=== PATIENT | female | born 1970 | race Caucasian/White ===

== ENCOUNTER → 2019-03-22 12:50 | Outpatient (POV) | payer MEDICAID, SELFPAY ==
[2019-03-22 13:11] VITALS: BP 111/83; PULSE 84; RESP 18; O2SAT 98; BMI 24.1
--- NOTE | 2019-03-22 14:13 | HMH.PMCON ---
Assessment and Plan (1) Degenerative joint disease of cervical spine Current visit: Yes Status: Chronic Qualifiers: Spinal osteoarthritis complication: with radiculopathy Qualified Code(s): M47.22 - Other spondylosis with radiculopathy, cervical region Category: Medical Code(s): M47.812 - Spondylosis without myelopathy or radiculopathy, cervical region (2) Cervical radiculopathy Current visit: Yes Status: Chronic Category: Medical Code(s): M54.12 - Radiculopathy, cervical region - Assessment and plan all Dx Assessment and Plan for all problems:: We will set the patient up for a C5-C6 cervical epidural steroid injection. I believe it would be beneficial given the patient's symptomology and failure of conservative treatments. I will follow-up with the patient after injection reassess her symptoms. She is been instructed to call the office if she has any issues prior to her next appointment. Dr. Marquez has reviewed this note and agrees with this plan of care. This note was dictated using voice recognition software and may contain errors or omissions HPI - Data of Consult Consult date: 03/22/19 Requesting Physician: Christin Bingham APRN Primary Care Provider: Julisa Kerr - Consult Narrative Reason for consult: Neck pain History of present illness: Ms. Newsome is a 48 year old female who presents today for consultation in regards to her neck pain. Patient has had neck pain for several years however it is getting worse. Patient rates her pain today a 5 out of 10. She has numbness and tingling in both arms along with the fingers. Patient does have an MRI showing a disc bulge and degeneration at C5-C6. Patient is interested in injective therapy. Patient is completed physical therapy without any relief. She is continuing a home stretching program. She is on anti-inflammatories. She is not on any anticoagulation therapy. ROS General: no recent weight change, no fever, no sleep disturbances Respiratory: no cough, no shortness of air, no recurring pulmonary infections Cardiovascular/Peripheral Vascular: No chest pain, No palpitations, no edema, no shortness of breath. Gastrointestinal: no incontinence, normal bowel movements reported Genitourinary: no incontinence Musculoskeletal: Neck pain, arm pain Psychiatric: normal mood/ affect Neurological: [denies weakness in extremities], [denies balance issues] CC: Christin Bingham APRN [facility] History I have reviewed the patient's past medical history: Yes *Have you ever received a pneumonia vaccine?: No *Have you received a flu vaccine this season?: No Laterality Cases: Bilateral: Tonsillectomy Other Surgeries: Yes: Hysterectomy-Total, Other Amputation: No Fractures: No - *Social History Smoking Status: Never smoker Alcohol Intake: never *Occupational Status:: other Housing: house Household Members: spouse *Travel in the last 8 weeks: None - Psychiatric History Expresses thoughts of harming self/others: None Suicide Plan Description: No Plan Family Hx:: Unable to obtain Review of Systems - Review of Systems ROS General: no recent weight change, no fever, no sleep disturbances Respiratory: no cough, no shortness of air, no recurring pulmonary infections Cardiovascular/Peripheral Vascular: No chest pain, No palpitations, no edema, no shortness of breath. Gastrointestinal: no incontinence, normal bowel movements reported Genitourinary: no incontinence Musculoskeletal: Neck pain, arm pain Psychiatric: normal mood/ affect Neurological: [denies weakness in extremities], [denies balance issues] Objective Vital signs: Pulse Resp BP Pulse Ox 84 18 111/83 98 03/22/19 13:11 03/22/19 13:11 03/22/19 13:11 03/22/19 13:11 Narrative: Physical Exam General: Alert and oriented x3, no acute distress, pleasant and cooperative, [on room air] Lungs: Resps E/U, Symmetrical chest expansion,
--- NOTE | 2019-03-22 14:16 | P.CONS_ITS ---
Assessment and Plan (1) Degenerative joint disease of cervical spine Current visit: Yes Status: Chronic Qualifiers: Spinal osteoarthritis complication: with radiculopathy Qualified Code(s): M47.22 - Other spondylosis with radiculopathy, cervical region Category: Medical Code(s): M47.812 - Spondylosis without myelopathy or radiculopathy, cervical region (2) Cervical radiculopathy Current visit: Yes Status: Chronic Category: Medical Code(s): M54.12 - Radiculopathy, cervical region - Assessment and plan all Dx Assessment and Plan for all problems:: We will set the patient up for a C5-C6 cervical epidural steroid injection. I believe it would be beneficial given the patient's symptomology and failure of conservative treatments. I will follow-up with the patient after injection reassess her symptoms. She is been instructed to call the office if she has any issues prior to her next appointment. Dr. Marquez has reviewed this note and agrees with this plan of care. This note was dictated using voice recognition software and may contain errors or omissions HPI - Data of Consult Consult date: 03/22/19 Requesting Physician: Christin Bingham APRN Primary Care Provider: Julisa Kerr - Consult Narrative Reason for consult: Neck pain History of present illness: Ms. Newsome is a 48 year old female who presents today for consultation in regards to her neck pain. Patient has had neck pain for several years however it is getting worse. Patient rates her pain today a 5 out of 10. She has numbness and tingling in both arms along with the fingers. Patient does have an MRI showing a disc bulge and degeneration at C5-C6. Patient is interested in injective therapy. Patient is completed physical therapy without any relief. She is continuing a home stretching program. She is on anti-inflammatories. She is not on any anticoagulation therapy. ROS General: no recent weight change, no fever, no sleep disturbances Respiratory: no cough, no shortness of air, no recurring pulmonary infections Cardiovascular/Peripheral Vascular: No chest pain, No palpitations, no edema, no shortness of breath. Gastrointestinal: no incontinence, normal bowel movements reported Genitourinary: no incontinence Musculoskeletal: Neck pain, arm pain Psychiatric: normal mood/ affect Neurological: [denies weakness in extremities], [denies balance issues] CC: Christin Bingham APRN [facility] History I have reviewed the patient's past medical history: Yes *Have you ever received a pneumonia vaccine?: No *Have you received a flu vaccine this season?: No Laterality Cases: Bilateral: Tonsillectomy Other Surgeries: Yes: Hysterectomy-Total, Other Amputation: No Fractures: No - *Social History Smoking Status: Never smoker Alcohol Intake: never *Occupational Status:: other Housing: house Household Members: spouse *Travel in the last 8 weeks: None - Psychiatric History Expresses thoughts of harming self/others: None Suicide Plan Description: No Plan Family Hx:: Unable to obtain Review of Systems - Review of Systems ROS General: no recent weight change, no fever, no sleep disturbances Respiratory: no cough, no shortness of air, no recurring pulmonary infections Cardiovascular/Peripheral Vascular: No chest pain, No palpitations, no edema, no shortness of breath. Gastrointestinal: no incontinence, normal bowel movements reported Genitourinary: no incontinence Musculoskeletal: Neck pain, arm pain Psych
== END ==
PROVIDERS: PCP Family Medicine; Visit Provider Clinical Nurse Specialist Family Health
DX: M47.22 Other spondylosis with radiculopathy, cervical region (principal)
CPT/HCPCS: 99202

== ENCOUNTER → 2019-05-03 11:47 | Outpatient (POV) | payer MEDICAID, SELFPAY ==
--- NOTE | 2019-05-03 12:05 | HMH.PAINSOAP ---
[facility] Pain Management SOAP Note Subjective:: Patient is a pleasant 48-year-old white female who presents today for follow-up after cervical epidural steroid injection. Patient did not receive any relief in regards to this. Patient and I discussed facet joint injections. She does have very focal pain which is worse with rotation of the neck. Patient rates her pain a 5 out of 10 today. She is not on any anticoagulation therapy. She is continuing home stretching therapy. She is on anti-inflammatories. She is having acute exacerbation of low back pain secondary to trying to bathe the dog. ROS General: no recent weight change, no fever, no sleep disturbances Respiratory: no cough, no shortness of air, no recurring pulmonary infections Cardiovascular/Peripheral Vascular: No chest pain, No palpitations, no edema, no shortness of breath. Gastrointestinal: no incontinence, normal bowel movements reported Genitourinary: no incontinence Musculoskeletal: Neck pain, back pain Psychiatric: normal mood/ affect Neurological: [denies weakness in extremities], [denies balance issues] Objective:: Physical Exam General: Alert and oriented x3, no acute distress, pleasant and cooperative, [on room air] Lungs: Resps E/U, Symmetrical chest expansion, Eyes: PERRL Musculoskeletal: Flexion and extension of cervical and lumbar spine somewhat guarded secondary to pain, deep tendon reflexes normal, strength in upper and lower extremities [5/5], antalgic gait noted positive Spurling's test, positive facet loading cervical spine Neurological: speech clear, systems development consultant equal, no gross sensory deficits Assessment:: Degenerative disc disease cervical spine with cervical facet arthropathy and acute low back pain Plan:: We will schedule medial branch block/facet joint injection at C4-C5 C5-C6 bilaterally. Patient is not on any anticoagulation therapy and is continuing a home stretching program. She is failed epidural injections. We will also give him a short round of prednisone to help with her acute low back pain I will follow-up with her after injection reassess her symptoms at that time. Dr. Marquez has reviewed this note and agrees with this plan of care. This note was dictated using voice recognition software and may contain errors or omissions Pain Management Hx [employer] *Have you ever received a pneumonia vaccine?: No *Have you received a flu vaccine this season?: No - *Social History *Occupational Status:: employed, other *Travel in the last 8 weeks: None
[2019-05-03 12:33] VITALS: BP 138/81; PULSE 93; RESP 18; O2SAT 98; BMI 24.1
== END ==
PROVIDERS: PCP Family Medicine; Visit Provider Clinical Nurse Specialist Family Health
DX: M50.30 Other cervical disc degeneration, unspecified cervical region (principal); M54.02 Panniculitis affecting regions of neck and back, cervical region; M54.5 Low back pain
CPT/HCPCS: 99212

== ENCOUNTER → 2019-06-15 08:53 | Outpatient (POV) | payer MEDICAID, SELFPAY ==
[2019-06-15 09:12] VITALS: BP 120/80; PULSE 63; RESP 16; O2SAT 97; BMI 24.7
--- NOTE | 2019-06-15 09:36 | P.CONS_ITS ---
[facility] Pain Management SOAP Note Subjective:: Patient is a pleasant 48-year-old white female who presents today for follow-up after cervical medial branch block. Patient got 80% relief for almost a week. Patient's pain is returned rating it a 7 out of 10. Overall this is a successful medial branch block. We will repeat this to see if it is beneficial if it is we will plan on a rhizotomy of the C4-C5 C5-C6 levels. ROS General: no recent weight change, no fever, no sleep disturbances Respiratory: no cough, no shortness of air, no recurring pulmonary infections Cardiovascular/Peripheral Vascular: No chest pain, No palpitations, no edema, no shortness of breath. Gastrointestinal: no incontinence, normal bowel movements reported Genitourinary: no incontinence Musculoskeletal: Neck pain Psychiatric: normal mood/ affect Neurological: [denies weakness in extremities], [denies balance issues] Objective:: Physical Exam General: Alert and oriented x3, no acute distress, pleasant and cooperative, [on room air] Lungs: Resps E/U, Symmetrical chest expansion, Eyes: PERRL Musculoskeletal: Flexion and extension of cervical spine somewhat guarded secondary to pain, deep tendon reflexes normal, strength in upper and lower extremities [5/5], slightly antalgic gait noted Neurological: speech clear, senior manager creative services equal, no gross sensory deficits Assessment:: Degenerative disc disease cervical spinal cervical facet arthropathy and spondylosis Plan:: We will schedule a second cervical medial branch block at C4-C5 C5-C6 bilaterally. Since the patient did so well with it I do believe she is a potential candidate for a neurotomy. Patient is not on any anticoagulation therapy and is continuing home stretching program. I will follow-up with her after injection reassess her symptoms at that time she is been instructed to call the office if she has any issues prior to her next appointment. Dr. Marquez has reviewed this note and agrees with this plan of care. This note was dictated using voice recognition software and may contain errors or omissions [facility] History I have reviewed the patient's past medical history: Yes Medical History: Denies:: Diabetes Mellitus Type 1, Seizures *Have you ever received a pneumonia vaccine?: No *Have you received a flu vaccine this season?: No Laterality Cases: Bilateral: Tonsillectomy Other Surgeries: Yes: Hysterectomy-Total, Other Amputation: No Fractures: No - *Social History Smoking Status: Never smoker Alcohol Intake: never *Occupational Status:: employed Housing: house Household Members: spouse *Travel in the last 8 weeks: None Family Hx:: Unable to obtain
== END ==
PROVIDERS: PCP Family Medicine; Visit Provider Clinical Nurse Specialist Family Health
DX: M50.30 Other cervical disc degeneration, unspecified cervical region (principal); M54.02 Panniculitis affecting regions of neck and back, cervical region; M47.812 Spondylosis without myelopathy or radiculopathy, cervical region
CPT/HCPCS: 99212

== ENCOUNTER → 2019-08-02 10:45 | Outpatient (POV) | payer OTHER, SELFPAY ==
--- NOTE | 2019-08-02 11:13 | HMH.PAINSOAP ---
[facility] Pain Management SOAP Note Subjective:: Patient is a pleasant 48-year-old white female who presents today for follow-up after cervical medial branch block. Patient got 90% relief. She is doing extremely well she would like to move forward with her RFA. Patient has had 2 sets of medial branch blocks in the gotten over 80% relief both times. Patient is not on any anticoagulation therapy. She is continuing a home stretching program. Patient has difficulty with rotating her neck at times. She rates her pain today a 7 out of 10. Patient is continuing a home stretching program. Patient does not have any active infections. ROS General: no recent weight change, no fever, no sleep disturbances Respiratory: no cough, no shortness of air, no recurring pulmonary infections Cardiovascular/Peripheral Vascular: No chest pain, No palpitations, no edema, no shortness of breath. Gastrointestinal: no new onset incontinence, normal bowel movements reported Genitourinary: no new onset incontinence Musculoskeletal: Neck pain Psychiatric: normal mood/ affect Neurological: [denies new onset weakness in extremities], [denies new onset balance issues] Objective:: Physical Exam General: Alert and oriented x3, no acute distress, pleasant and cooperative, [on room air] Lungs: Resps E/U, Symmetrical chest expansion, Eyes: PERRL Musculoskeletal: Flexion and extension of cervical spine somewhat guarded secondary to pain, deep tendon reflexes normal, strength in upper and lower extremities [5/5], normal gait noted Neurological: speech clear, purification supervisor equal, no gross sensory deficits Assessment:: Degenerative disc disease cervical spine with cervical facet arthropathy Plan:: We will schedule her for a rhizotomy of this C4-C5 C5-C6. We will do the right side and in 2 weeks we will do the left side she is not on any anticoagulation therapy. She is gotten relief from both sets of her medial branch blocks. I will follow-up with her after her RFA and reassess her symptoms at that time she is been instructed to call the office if she has any issues prior to her next appointment. Dr. Marquez has reviewed this note and agrees with this plan of care. This note was dictated using voice recognition software and may contain errors or omissions [facility] History I have reviewed the patient's past medical history: Yes Medical History: Denies:: Cancer, Diabetes Mellitus Type 1, Seizures *Have you ever received a pneumonia vaccine?: No *Have you received a flu vaccine this season?: No Other Medical History: Reports: Arthritis Laterality Cases: Bilateral: Tonsillectomy Other Surgeries: Yes: Hysterectomy-Total, Other Amputation: No Fractures: No - *Social History Smoking Status: Never smoker Alcohol Intake: never *Occupational Status:: employed Housing: house Household Members: spouse *Travel in the last 8 weeks: None Family Hx:: Unable to obtain
--- NOTE | 2019-08-02 11:16 | P.CONS_ITS ---
[facility] Pain Management SOAP Note Subjective:: Patient is a pleasant 48-year-old white female who presents today for follow-up after cervical medial branch block. Patient got 90% relief. She is doing extremely well she would like to move forward with her RFA. Patient has had 2 sets of medial branch blocks in the gotten over 80% relief both times. Patient is not on any anticoagulation therapy. She is continuing a home stretching program. Patient has difficulty with rotating her neck at times. She rates her pain today a 7 out of 10. Patient is continuing a home stretching program. Patient does not have any active infections. ROS General: no recent weight change, no fever, no sleep disturbances Respiratory: no cough, no shortness of air, no recurring pulmonary infections Cardiovascular/Peripheral Vascular: No chest pain, No palpitations, no edema, no shortness of breath. Gastrointestinal: no new onset incontinence, normal bowel movements reported Genitourinary: no new onset incontinence Musculoskeletal: Neck pain Psychiatric: normal mood/ affect Neurological: [denies new onset weakness in extremities], [denies new onset balance issues] Objective:: Physical Exam General: Alert and oriented x3, no acute distress, pleasant and cooperative, [on room air] Lungs: Resps E/U, Symmetrical chest expansion, Eyes: PERRL Musculoskeletal: Flexion and extension of cervical spine somewhat guarded secondary to pain, deep tendon reflexes normal, strength in upper and lower extremities [5/5], normal gait noted Neurological: speech clear, stock buyer equal, no gross sensory deficits Assessment:: Degenerative disc disease cervical spine with cervical facet arthropathy Plan:: We will schedule her for a rhizotomy of this C4-C5 C5-C6. We will do the right side and in 2 weeks we will do the left side she is not on any anticoagulation therapy. She is gotten relief from both sets of her medial branch blocks. I will follow-up with her after her RFA and reassess her symptoms at that time she is been instructed to call the office if she has any issues prior to her next appointment. Dr. Marquez has reviewed this note and agrees with this plan of care. This note was dictated using voice recognition software and may contain errors or omissions [facility] History I have reviewed the patient's past medical history: Yes Medical History: Denies:: Cancer, Diabetes Mellitus Type 1, Seizures *Have you ever received a pneumonia vaccine?: No *Have you received a flu vaccine this season?: No Other Medical History: Reports: Arthritis Laterality Cases: Bilateral: Tonsillectomy Other Surgeries: Yes: Hysterectomy-Total, Other Amputation: No Fractures: No - *Social History Smoking Status: Never smoker Alcohol Intake: never *Occupational Status:: employed Housing: house Household Members: spouse *Travel in the last 8 weeks: None Family Hx:: Unable to obtain
[2019-08-02 11:44] VITALS: BP 135/84; PULSE 104; RESP 18; O2SAT 98; BMI 24.1
== END ==
PROVIDERS: PCP Family Medicine; Visit Provider Clinical Nurse Specialist Family Health
DX: M50.30 Other cervical disc degeneration, unspecified cervical region (principal); M54.02 Panniculitis affecting regions of neck and back, cervical region
CPT/HCPCS: 99212

== ENCOUNTER → 2019-10-05 08:52 | Outpatient (POV) | payer OTHER, SELFPAY ==
[2019-10-05 08:58] VITALS: BP 129/78; PULSE 91; RESP 18; O2SAT 98; BMI 24.1
--- NOTE | 2019-10-05 09:15 | P.CONS_ITS ---
[facility] Pain Management SOAP Note Subjective:: She is a pleasant 48-year-old white female who presents today for follow-up after cervical RFA. Patient rates her pain today a 7 out of 10. Patient states that she still having quite a bit of pain in her neck. We discussed options including steroid Dosepaks, anti-inflammatories, booster medial branch block. Patient would like to take some anti-inflammatories and see if this is beneficial. ROS General: no recent weight change, no fever, no sleep disturbances Respiratory: no cough, no shortness of air, no recurring pulmonary infections Cardiovascular/Peripheral Vascular: No chest pain, No palpitations, no edema, no shortness of breath. Gastrointestinal: no new onset incontinence, normal bowel movements reported Genitourinary: no new onset incontinence Musculoskeletal: Neck pain Psychiatric: normal mood/ affect Neurological: [denies new onset weakness in extremities], [denies new onset balance issues] Objective:: Physical Exam General: Alert and oriented x3, no acute distress, pleasant and cooperative, [on room air] Lungs: Resps E/U, Symmetrical chest expansion, Eyes: PERRL Musculoskeletal: Flexion and extension of cervical spine somewhat guarded secondary to pain, deep tendon reflexes normal, strength in upper and lower extremities [5/5], normal gait noted Neurological: speech clear, clinical support manager equal, no gross sensory deficits Assessment:: Degenerative disc disease cervical spine with cervical spondylosis and cervical facet arthropathy Plan:: We will call in diclofenac 75 mg 1 p.o. twice daily. We will see her in 2 months reassess her symptoms at that time she is been instructed to call the office if she has any issues prior to her next appointment. Dr. Marquez has reviewed this note and agrees with this plan of care. This note was dictated using voice recognition software and may contain errors or omissions [facility] History I have reviewed the patient's past medical history: Yes Medical History: Denies:: Cancer, Diabetes Mellitus Type 1, Diabetes Mellitus Type 2, Seizures *Have you ever received a pneumonia vaccine?: No *Have you received a flu vaccine this season?: No Other Medical History: Reports: Arthritis Laterality Cases: Bilateral: Tonsillectomy Other Surgeries: Yes: Hysterectomy-Total, Other Amputation: No Fractures: No - *Social History Smoking Status: Never smoker Alcohol Intake: never *Occupational Status:: employed, other Housing: house Household Members: spouse *Travel in the last 8 weeks: None Family Hx:: Unable to obtain
== END ==
PROVIDERS: PCP Family Medicine; Visit Provider Clinical Nurse Specialist Family Health
DX: M50.30 Other cervical disc degeneration, unspecified cervical region (principal); M47.812 Spondylosis without myelopathy or radiculopathy, cervical region; M54.02 Panniculitis affecting regions of neck and back, cervical region
CPT/HCPCS: 99212

== ENCOUNTER → 2019-11-23 11:52 | Outpatient (CLI) | payer OTHER, SELFPAY ==
[2019-11-23 12:39] LABS: Basophils # 0.1 K/mm3 (0-0.2); Basophils % 0.9 % (0.1-2.0); Eosinophils # 0.3 K/mm3 (0.0-0.4); Eosinophils % 3.3 % (0.1-12.0); Hematocrit 43.7 % (37.0-47.0); Hemoglobin 14.2 g/dL (12.2-16.2); Lymphocytes % 26.8 % (10-50); Mean Corpuscular HGB Conc 32.6 g/dL (31.8-35.4); Mean Corpuscular Hemoglobin 28.8 pg (27.0-31.2); Mean Corpuscular Volume 88.2 fl (81-99); Mean Platelet Volume 7.8 fl (7.4-10.4); Monocytes # 0.4 K/mm3 (0.1-1.0); Monocytes % 5.1 % (1.7-9.3); Neutrophils # 4.8 K/mm3 (1.8-7.8); Neutrophils % 63.9 % (37.0-80.0); Platelet Count 333 K/mm3 (142-424); Red Blood Count 4.96 M/mm3 (4.20-5.40); Red Cell Distribution Width 12.8 % (11.5-17.5); White Blood Count 7.5 K/mm3 (4.8-10.8)
[2019-11-23 13:51] LABS: Alanine Aminotransferase 9 U/L (12-78); Albumin Level 4.3 g/dl (3.5-5.0); Albumin/Globulin Ratio 1.4 (1.1-1.8); Alkaline Phosphatase 112 U/L (38-126); Anion Gap 13.6 mEq/L (5-15); Aspartate Amino Transferase 20 U/L (14-36); Bilirubin,Total 0.2 mg/dl (0.2-1.3); Blood Urea Nitrogen 11 mg/dl (7-17); Calcium 9.6 mg/dl (8.4-10.2); Carbon Dioxide 27 mmol/L (22.0-30.0); Chloride 102 mmol/L (98-107); Estimated Glomerular Filt Rate 89 ml/min (>60); GFR (African American) 108 ML/MIN (>60); Globulin 3.1 g/dL (1.3-3.2); Glucose 83 mg/dl (74-100); Potassium 4.6 mmoL/L (3.5-5.1); Sodium 138 mmol/L (136-145); Total Protein,Serum 7.4 g/dl (6.3-8.2)
[2019-11-23 14:03] LABS: C-Reactive Protein 10.3 mg/L (0-4)
[2019-11-23 14:21] LABS: Erythrocyte Sedimentation Rate 57 mm/hr (0-20)
[2019-11-26 18:32] LABS: QuantiFERON-TB Gold Plus Negative (Negative)
== END ==
PROVIDERS: Visit Provider Internal Medicine Rheumatology
DX: M47.812 Spondylosis without myelopathy or radiculopathy, cervical region (principal); M54.12 Radiculopathy, cervical region
CPT/HCPCS: 36415; 80053; 85025; 85651; 86140; 86480

== ENCOUNTER → 2020-06-22 10:31 | Outpatient (POV) | payer OTHER, SELFPAY ==
[2020-06-22 10:49] VITALS: BP 132/74; PULSE 77; RESP 18; O2SAT 98; BMI 25.0
--- NOTE | 2020-06-22 10:59 | HMH.PAINSOAP ---
[facility] Pain Management SOAP Note Subjective:: Patient is a 49-year-old white female who presents today for follow-up. She is being treated for chronic neck pain with cervical radiculopathy symptoms as well as cervical spondylosis and cervical facet arthropathy. Patient rates her pain a 7 out of 10. She underwent a cervical RFA in June 2019. Her pain was relieved up to 90%, however, her pain has returned. She rates her pain a 7 out of 10 today. Patient did receive the RFA at C4-C5 C5-C6 in the past. Patient says she has pain on both sides, however, her pain is worse on the left side today. She has tried physical therapy along with continued home stretching program as well as ice and heat therapies and anti-inflammatories. She would like to proceed with a repeat RFA. Patient is not on any anticoagulation therapy. Review of Systems General: No recent weight changes, no fever, no sleep disturbances Respiratory: No cough, no shortness of air, no recurring pulmonary infections Cardiovascular/peripheral vascular: No chest pain, no palpitations, no edema, no shortness of breath Gastrointestinal: No new onset incontinence, normal bowel movements reported Genitourinary: No new onset incontinence Musculoskeletal: Neck pain Psychiatric: Normal mood/affect Neurological: [Denies weakness in extremities], [denies balance issues] Objective:: Physical exam General: Alert and oriented x3, no acute distress, pleasant and cooperative, [on room air] Lungs: Respirations even and unlabored, symmetrical chest expansion Eyes: PERRL Musculoskeletal: Flexion and extension of: Cervical spine somewhat guarded secondary to pain, deep tendon reflexes normal, strength in upper and lower extremities [5/5], normal gait noted, positive Spurling's test Neurological: Speech clear, 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 She is not on any anticoagulation therapy. We will plan to see her back in the clinic after her procedure to reassess her symptoms. Patient has been instructed to contact clinic if she has any concerns before next appointment. The patient and I specifically discussed risk factors for COVID19. These risks include, but are not limited to age greater than 60, heart or lung disease, diabetes, immunosuppression, and travel. We also discussed NSAIDs may worsen COVID19 infection or symptoms. Patient should not use NSAIDs to treat COVID19 signs or symptoms. Patient was also informed that any type of corticosteroid of any form (oral or injection) will decrease the patient's immune system response and may increase the likelihood of COVID19 infection and symptoms[address] Dr. Marquez has reviewed this note and agrees with this plan of care. This note was dictated using voice recognition software and make contain errors or omissions. [facility] History I have reviewed the patient's past medical history: Yes Medical History: Denies:: Cancer, Diabetes Mellitus Type 1, Diabetes Mellitus Type 2, Seizures *Have you ever received a pneumonia vaccine?: Yes *Have you received a flu vaccine this season?: Yes Other Medical History: Reports: Arthritis Laterality Cases: Bilateral: Tonsillectomy Other Surgeries: Yes: Hysterectomy-Total, Other Amputation: No Fractures: No - *Social History Smoking Status: Never smoker Alcohol Intake: never *Occupational Status:: other Housing: house Household Members: spouse *Travel in the last 8 weeks: None Family Hx:: Unable to obtain
== END ==
PROVIDERS: PCP Family Medicine; Visit Provider Clinical Nurse Specialist Family Health
DX: M50.30 Other cervical disc degeneration, unspecified cervical region (principal); M47.816 Spondylosis without myelopathy or radiculopathy, lumbar region; M12.88 Other specific arthropathies, not elsewhere classified, other specified site
CPT/HCPCS: 99212

== ENCOUNTER 2020-07-07 09:35 | Day surgery (SDC) | payer OTHER, SELFPAY ==
[2020-07-07 09:45] VITALS: BP 147/80; PULSE 72; RESP 17; TEMP 36.7; O2SAT 98; BMI 25.0
[2020-07-07 09:52] VITALS: BP 132/78; PULSE 85; RESP 18; O2SAT 98
[2020-07-07 10:12] VITALS: BP 136/85; PULSE 88; RESP 18; O2SAT 98
--- NOTE | 2020-07-07 10:12 | HMH.PMPROC ---
- Procedure Date: 07/07/20 Time: 10:12 Anesthesiologist:: Abdulaziz Marquez MD Complications:: None Pre-procedure Diagnosis:: Degenerative disc disease of cervical spine with cervical facet arthropathy and cervical spondylosis Post-procedure Diagnosis:: Same Indications for Procedure:: Patient is a pleasant 49-year-old white female who we are treating for neck pain with cervical facet arthropathy and cervical spondylosis. She is done very well with previous cervical RFA's in the past with up to a year of pain relief her pain is just now starting to come back. We will plan on a repeat cervical RFA to C4-C5 and C5-C6 on the left side today. We will follow this by the right side in 2 weeks. Procedure Details:: Cervical RFA Informed consent was obtained and the risk and benefits of the procedure was explained to the patient. Patient was placed prone on the procedure table. The patient was prepped and draped in sterile fashion. C-arm fluoroscopy was used to view the lumbar spine. The skin and subcutaneous tissues were anesthetized using lidocaine. I placed 20-gauge RF needles into the facet joints of C4-C5 and C5-C6 levels on the left side. We underwent sensory stimulation. There is good sensory stimulation at 0.8 V. We underwent motor stimulation. There is no motor stimulation at 2.5 V. We then anesthetized these levels with lidocaine and Depo-Medrol. I used a total of 40 mg Depo-Medrol for both levels. I then burned both levels of C4-C5 and C5-C6 facet joint/medial branches for 4 minutes at 80 ?C. Patient tolerated the procedure well with no complication. Plan and Disposition:: We will follow-up with her and 2 weeks. Will reevaluate symptoms at this time
[2020-07-07 10:25] VITALS: BP 120/84; PULSE 68; RESP 18; O2SAT 97
== END 2020-07-07 10:26 | disposition home or self-care (01) ==
LOC: SC.PAINP 09:36
PROVIDERS: PCP Family Medicine; Visit Provider Anesthesiology
DX: M50.30 Other cervical disc degeneration, unspecified cervical region (principal); M47.812 Spondylosis without myelopathy or radiculopathy, cervical region; M12.88 Other specific arthropathies, not elsewhere classified, other specified site; Z82.49 Family history of ischemic heart disease and other diseases of the circulatory system; J45.909 Unspecified asthma, uncomplicated; G43.909 Migraine, unspecified, not intractable, without status migrainosus; Z87.39 Personal history of other diseases of the musculoskeletal system and connective tissue; Z90.710 Acquired absence of both cervix and uterus; Z88.8 Allergy status to other drugs, medicaments and biological substances; Z79.899 Other long term (current) drug therapy
CPT/HCPCS: 64633; 64634; J1040

== ENCOUNTER 2020-07-21 09:35 | Day surgery (SDC) | payer OTHER, SELFPAY ==
[2020-07-21 10:01] VITALS: BP 130/88; PULSE 76; RESP 18; TEMP 36.6; O2SAT 98; BMI 25.0
[2020-07-21 10:34] VITALS: BP 125/85; PULSE 85; RESP 18; O2SAT 98
--- NOTE | 2020-07-21 11:00 | HMH.PMPROC ---
- Procedure Date: 07/21/20 Time: 11:00 Anesthesiologist:: Abdulaziz Marquez MD Complications:: None Pre-procedure Diagnosis:: Degenerative disease of the cervical spine with cervical facet arthropathy and cervical spondylosis Post-procedure Diagnosis:: Same Indications for Procedure:: Patient is a pleasant 49-year-old white female who we have been treating for neck pain with cervical facet arthropathy and cervical spondylosis. She is done very well with previous cervical RFA's in the past. She is doing very well after left sided RFA of C4-C5 and C5-C6. She presents for right-sided RFA of C4-C5 and C5-C6 today. Procedure Details:: Cervical RFA Informed consent was obtained and the risk and benefits of the procedure was explained to the patient. Patient was placed prone on the procedure table. The patient was prepped and draped in sterile fashion. C-arm fluoroscopy was used to view the lumbar spine. The skin and subcutaneous tissues were anesthetized using lidocaine. I placed 20-gauge RF needles into the facet joints of C4-C5 and C5-C6 levels on the right side. We underwent sensory stimulation. There is good sensory stimulation at 0.8 V. We underwent motor stimulation. There is no motor stimulation at 2.5 V. We then anesthetized these levels with lidocaine and Depo-Medrol. I used a total of 40 mg Depo-Medrol for both levels. I then burned both levels of C4-C5 and C5-C6 on the right side for 4 minutes at 80 ?C. Patient tolerated the procedure well with no complications. Plan and Disposition:: We will follow-up with her and 1 month. Will reevaluate symptoms at that time.
[2020-07-21 11:27] VITALS: BP 126/86; PULSE 76; RESP 18; O2SAT 98
== END 2020-07-21 11:28 | disposition home or self-care (01) ==
LOC: SC.PAINP 09:35
PROVIDERS: PCP Family Medicine; Visit Provider Anesthesiology
DX: M50.30 Other cervical disc degeneration, unspecified cervical region (principal); M47.812 Spondylosis without myelopathy or radiculopathy, cervical region; M12.88 Other specific arthropathies, not elsewhere classified, other specified site; I10 Essential (primary) hypertension; J45.909 Unspecified asthma, uncomplicated; G56.00 Carpal tunnel syndrome, unspecified upper limb; M79.7 Fibromyalgia
CPT/HCPCS: 64633; 64634; J1040

== ENCOUNTER 2020-09-19 17:06 | Emergency (ER) | payer OTHER, SELFPAY ==
[2020-09-19 17:10] VITALS: BP 139/90; PULSE 114; RESP 18; TEMP 36.8; O2SAT 97; BMI 25.2
--- NOTE | 2020-09-19 17:15 | XR_ITS ---
PROCEDURE: XR ELBOW RT MIN 3V CLINICAL INDICATION: FALL Posttraumatic pain COMPARISON: No exams were available for comparison FINDINGS: There is a nondisplaced minimally distracted fracture involving the base of the olecranon process. The fracture fragments are distracted by approximately 2-3 mm. Positive anterior and posterior fat pad is present. There is some comminution at the fracture site IMPRESSION: Nondisplaced minimally distracted fracture at the base of the olecranon process with hemarthrosis and displaced anterior and posterior fat Dictated by: Freddy Livingston MD 09/19/2020 17:57 Freddy Livingston MD in [place] 09/19/2020 17:57
[2020-09-19 17:16] VITALS: BP 139/90; PULSE 114; RESP 18; TEMP 36.8; O2SAT 97; BMI 25.0
--- NOTE | 2020-09-19 17:21 | HMH.EDUTC ---
[facility] [place] Disposition Clinical Impression: Closed olecranon process fracture Qualifiers: Encounter type: initial encounter Laterality: right Qualified Code(s): S52.021A - Displaced fracture of olecranon process without intraarticular extension of right ulna, initial encounter for closed fracture Disposition: Home, Self-Care Condition on Discharge: Good Instructions: Elbow Fracture, DI for Elbow Fracture, How To Perform RICE (Rest, Ice, Compress, Elevate) Additional Instructions: *RICE, Rest the extremity, Ice 15-20 minutes 3-4 times daily, Compress- wear the eros wrap as discussed as much as possible to help reduce swelling and pain, Elevate the extremity when at rest *Eros wrap/orthoglass splint is for support and help control swelling, *Elevate when resting *Ibuprofen every 6 hours as needed for pain an inflammation. If need something more can take Tylenol in between doses of Ibuprofen to help Immediately follow up with your family doctor for new or worsening of symptoms, or no noticeable improvement over the next 3-[address] Orourke office in the morning for appointment tomorrow Further care per Dr Marcial Prescriptions: Ibuprofen [Ibuprofen 600mg Tablet] 600 mg PO Q6HP PRN #20 tab PRN Reason: Moderate Pain Prescription Printed Referrals: Julisa Kerr [Primary Care Provider] - As needed Drew Marcial MD [Staff Physician] - (Call the office in morning for appointment) Time of Disposition: 18:28 Medical Decision Making - Baldo Inquiry Pt receiving controlled substance: No Baldo was queried for this patient: No Vital Signs: 09/19/20 17:10 09/19/20 17:16 09/19/20 18:33 Temperature 98.2 F 98.2 F 98.2 F Temperature Source Oral Oral Pulse Rate 114 H Pulse Rate [Right Radial] 114 H 114 H Respiratory Rate 18 18 18 Blood Pressure 139/90 Blood Pressure [Right Arm] 139/90 139/90 Blood Pressure Mean [Right Arm] 106 106 Blood Pressure Source [Right Arm] Automatic Cuff Automatic Cuff Blood Pressure Position [Right Arm] Sitting Sitting 02 Sat by Pulse Oximetry 97 97 Oxygen Delivery Method Room Air Room Air - Radiology Data #1 Image(s): Chest - Physician Consults Physician Consulted: Aniket Time: 17:51 Reason -: Orthopedic Eval/Care Comment/Response: Bean Weigher to beep Orthopedic facility environmental technician awaiting call back, Dr Marcial called back looked at xray and agreed Advised to splint the arm in the position she is holding in with posterior long arm splint and have her RICE tonight and call office in the morning he will probably see her in the morning and discuss treatment and fixing fracture in the visit Medical Decision Narrative: Patient states that she is allergic to Celecoxib but has taking Ibuprofen in the past without reactions or complications [facility] [place] HPI - General Stated complaint: ao 09/19 @ 1200 injury to Rt elbow Time Seen by Provider: 09/19/20 17:21 Mode of Arrival: Ambulatory Source of Information: Patient Limitations: No Limitations Description of Symptoms (Recalled from Triage Doc. by RN): Right elbow pain after falling - History of Present Illness Provider Complaint: Patient states that her dog made her fall earlier today and when she fell she landed on her right elbow States that ever since she has been having pain in her right elbow and hurts when she tries to straighten her arm States that she had an arm sling at home and put it on but arm has still hurt today so she came in to get it checked - Related Data Home Medications Medication Instructions Recorded Confirmed Amitriptyline HCl [Elavil 25mg 25 mg PO DAILY 03/22/19 07/21/20 tablet] Cyclobenzaprine HCl [Flexeril 10mg 10 mg PO DAILY 03/22/19 07/21/20 tablet] Methotrexate Sodium/Pf 1 gm IJ DAILY 03/22/19 07/21/20 [Methotrexate 1 gm Vial] Tofacitinib Citrate [Xeljanz] 10 mg PO DAILY 03/22/19 07/21/20 Folic Acid [Folic Acid 1mg tablet] 5 mg PO DAILY 04/09/19 07/21/20 Previous Rx's Medication Instruction
[2020-09-19 18:33] VITALS: BP 139/90; PULSE 114; RESP 18; TEMP 36.8; O2SAT 97
== END 2020-09-19 18:35 | disposition home or self-care (01) ==
PROVIDERS: Emergency Provider Nurse Practitioner; PCP Family Medicine
DX: S52.021A Displaced fracture of olecranon process without intraarticular extension of right ulna, initial encounter for closed fracture (principal); W01.0XXA Fall on same level from slipping, tripping and stumbling without subsequent striking against object, initial encounter; Y92.019 Unspecified place in single-family (private) house as the place of occurrence of the external cause; Z88.8 Allergy status to other drugs, medicaments and biological substances
CPT/HCPCS: 29105; 73080; 99203

== ENCOUNTER → 2020-09-20 14:29 | Outpatient (CLI) | payer OTHER, SELFPAY ==
--- NOTE | 2020-09-20 14:32 | CT_ITS ---
PROCEDURE: CT ELBOW RT WO CON CLINICAL HISTORY: Surgical planning, ORIF right elbow Xrays on pacs COMPARISON: CR XR ELBOW RT MIN 3V from 09/19/2020 TECHNIQUE: Axial images obtained with sagittal and coronal reformats. All CT scans at the facility use one or more dose reduction, viz: automated exposure control, ma/kV adjustment per patient size (including targeted exams where dose is matched to indication, i.e. head), or iterative reconstruction technique. FINDINGS: Comminuted fracture involves the base of the olecranon process of the ulna. The fracture is nondisplaced. There is intra-articular hemarthrosis with displaced fat pad. No other fractures are apparent. No evidence of dislocation. IMPRESSION: Comminuted nondisplaced fracture at the base of the olecranon process with hemarthrosis Dictated by: Freddy Livingston MD 09/24/2020 11:09 Freddy Livingston MD in [place] 09/24/2020 11:09
== END ==
PROVIDERS: PCP Family Medicine; Visit Provider Orthopaedic Surgery
DX: S52.021A Displaced fracture of olecranon process without intraarticular extension of right ulna, initial encounter for closed fracture (principal)
CPT/HCPCS: 73200

== ENCOUNTER → 2020-09-25 10:12 | Outpatient (CLI) | payer OTHER, SELFPAY ==
[2020-09-25 10:49] LABS: Basophils # 0.1 K/mm3 (0-0.2); Eosinophils # 0.3 K/mm3 (0.0-0.4); Eosinophils % 4.8 % (0.1-12.0); Hematocrit 48.9 % (37.0-47.0); Hemoglobin 15.6 g/dL (12.2-16.2); Lymphocytes # 1.5 K/mm3 (0.7-4.5); Lymphocytes % 21.4 % (10-50); Mean Corpuscular HGB Conc 31.9 g/dL (31.8-35.4); Mean Corpuscular Hemoglobin 28.9 pg (27.0-31.2); Mean Corpuscular Volume 90.5 fl (81-99); Monocytes # 0.5 K/mm3 (0.1-1.0); Monocytes % 7.2 % (1.7-9.3); Neutrophils # 4.6 K/mm3 (1.8-7.8); Neutrophils % 65.5 % (37.0-80.0); Platelet Count 340 K/mm3 (142-424); Red Cell Distribution Width 13.8 % (11.5-17.5)
[2020-09-25 10:56] LABS: Chloride 104 mmol/L (98-107); Potassium 4.1 mmoL/L (3.5-5.1); Sodium 140 mmol/L (136-145)
[2020-09-25 10:59] LABS: Alanine Aminotransferase 17 U/L (12-78); Albumin/Globulin Ratio 1.1 (1.1-1.8); Alkaline Phosphatase 103 U/L (38-126); Anion Gap 12.1 mEq/L (5-15); Aspartate Amino Transferase 27 U/L (14-36); Bilirubin,Total 0.5 mg/dl (0.2-1.3); Blood Urea Nitrogen 11 mg/dl (7-17); Calcium 9.5 mg/dl (8.4-10.2); Carbon Dioxide 28 mmol/L (22.0-30.0); Estimated Glomerular Filt Rate 89 ml/min (>60); GFR (African American) 108 ML/MIN (>60); Globulin 3.7 g/dL (1.3-3.2); Glucose 96 mg/dl (74-100); Total Protein,Serum 7.7 g/dl (6.3-8.2)
[2020-09-25 12:02] LABS: Coronavirus 19 IgG Antibody Positive (Negative); Coronavirus 19 IgM Antibody Positive (Negative)
== END ==
PROVIDERS: Visit Provider Orthopaedic Surgery
DX: Z01.818 Encounter for other preprocedural examination (principal); Z03.818 Encounter for observation for suspected exposure to other biological agents ruled out; Z86.19 Personal history of other infectious and parasitic diseases; S52.023A Displaced fracture of olecranon process without intraarticular extension of unspecified ulna, initial encounter for closed fracture
CPT/HCPCS: 36415; 80053; 85025; 86328

== ENCOUNTER → 2020-09-26 10:51 | Outpatient (CLI) | payer OTHER, SELFPAY ==
--- NOTE | 2020-09-27 11:15 | P.PN_ITS ---
[facility] Anesthesia Checklist - Patient Identification Patient Identification: Arm Band, Verbal (Name & ) - Structural Data Admitted From: Home Planned Operative Procedure/s: orif elbow Consent for Planned Operative Procedure(s) Verified: Yes Verified Documents: History and Physical - NPO Status Verified Time NPO: 00:00 - Chart Verification Results Verified: CBC, BMP - Additional verifications Patient : No Anesthesia Reactions: No Hx Blood Transfusions: No Blood Transfusion Reaction: No Cephalosporin Allergy: No Previous Colonoscopy: No - Cardiovascular Assessment Heart Sounds: S1 & S2 Pulse Strength: Baseline Pulse Rhythm: Regular Peripheral Edema: No - Airway Assessment C-Spine Mobility Assessed: Yes TMJ Mobility Assessed: Yes Dentition: Good Dentition - Neurological Assessment Level of Consciousness: Awake, Alert, Appropriate Hx Seizures: No Numbness or tingling in extremities: No - Anesthesia Plan Anesthesia Risk discussed: Yes Anesthesia Plan: Verified ASA Class: II Anesthesia Type: General w/block [facility] History I have reviewed the patient's past medical history: Yes Medical History: Denies:: Cancer, Diabetes Mellitus Type 1, Diabetes Mellitus Type 2, Internal Pacemaker, MRSA, Seizures *Have you ever received a pneumonia vaccine?: No *Have you received a flu vaccine this season?: Yes Other Medical History: Reports: Arthritis. Denies: Blood Transfusion Reaction Anesthesia experience/problems:: none Laterality Cases: Bilateral: Tonsillectomy Other Surgeries: Yes: Hysterectomy-Total, Other. No: Pacemaker Amputation: No Fractures: No - *Social History Smoking Status: Never smoker Alcohol Intake: never Substance Use Type: denies use *Occupational Status:: employed Housing: house Household Members: family *Travel in the last 8 weeks: None Family Hx:: Heart Attack
--- NOTE | 2020-09-27 11:16 | P.PN_ITS ---
[facility] Anesthesia Record Part I Intake, IV Amount: 950 Estimated blood loss (mL): 5 Urine output (mL): 0 Blood Products used (#): none Blood Pressure: 121/77 SaO2: 95 Pulse Rate: 88 Respiratory Rate: 18 Temperature: 97.5 F Patient is:: Drowsy, Nasal O2, Stable Stable to PACU at:: 11:13
[2020-09-27 11:17] VITALS: BP 121/77; PULSE 88; RESP 18; TEMP 36.4; O2SAT 95
== END ==
PROVIDERS: Visit Provider Orthopaedic Surgery
DX: Z01.818 Encounter for other preprocedural examination (principal); Z03.818 Encounter for observation for suspected exposure to other biological agents ruled out; S52.023A Displaced fracture of olecranon process without intraarticular extension of unspecified ulna, initial encounter for closed fracture
CPT/HCPCS: U0003

== ENCOUNTER 2020-09-27 06:11 | Day surgery (SDC) | payer OTHER, SELFPAY ==
[2020-09-26 09:11] VITALS: BMI 25.0
[2020-09-27] VITALS (15 sets, daily range): BP systolic 101–127; BP diastolic 63–82; PULSE 59–98; RESP 16–18; TEMP 36.4–43; O2SAT 92–96
--- NOTE | 2020-09-27 09:09 | HMH.ANESCL ---
[facility] Anesthesia Checklist - Patient Identification Patient Identification: Arm Band, Verbal (Name & ) - Structural Data Admitted From: Home Planned Operative Procedure/s: Right olecranon ORIF Consent for Planned Operative Procedure(s) Verified: Yes Verified Documents: Surgical Consent, History and Physical - NPO Status Verified Time NPO: 00:00 - Chart Verification Results Verified: CBC, BMP - Additional verifications Anesthesia Reactions: No Hx Blood Transfusions: No Blood Transfusion Reaction: No - Airway Assessment C-Spine Mobility Assessed: Yes (MP 2, Limited neck ROM, TMD 3) TMJ Mobility Assessed: Yes Dentition: Good Dentition - Neurological Assessment Level of Consciousness: Awake, Alert, Appropriate, Follows Commands Hx Seizures: No Numbness or tingling in extremities: No - Anesthesia Plan Anesthesia Risk discussed: Yes Anesthesia Plan: Verified ASA Class: II Anesthesia Type: General w/block [facility] History I have reviewed the patient's past medical history: Yes Medical History: Denies:: Cancer, Diabetes Mellitus Type 1, Diabetes Mellitus Type 2, Internal Pacemaker, MRSA, Seizures *Have you ever received a pneumonia vaccine?: No *Have you received a flu vaccine this season?: Yes Other Medical History: Reports: Arthritis. Denies: Blood Transfusion Reaction Comment:: rheumatoid arthritis Anesthesia experience/problems:: none Laterality Cases: Bilateral: Tonsillectomy Other Surgeries: Yes: Hysterectomy-Total, Other. No: Pacemaker Amputation: No Fractures: No - *Social History Last grade of school completed: 11th or 12th Smoking Status: Never smoker Alcohol Intake: never Substance Use Type: denies use *Occupational Status:: employed Housing: house Household Members: family *Travel in the last 8 weeks: None Family Hx:: Heart Attack
--- NOTE | 2020-09-27 10:30 | XR_ITS ---
PROCEDURE: XR ELBOW RT 2V CLINICAL INDICATION: WIRED RT ELBOW COMPARISON: CR XR ELBOW RT MIN 3V from 09/19/2020 FINDINGS: Fluoroscopic spot films in surgery show placement of pins transfixing the fracture of the olecranon in anatomic alignment. Cerclage wires are seen as well. Fluoroscopic time was 1 minutes 22 seconds. IMPRESSION: Satisfactory ORIF olecranon fracture Dictated by: Dr. Syd Swann MD 09/27/2020 11:21 Dr. Syd Swann MD in [place] 09/27/2020 11:21
--- NOTE | 2020-09-27 12:01 | PC.NURSE ---
1138-detailed report called to ROLANDO Lala 1143-pt transported to post op via stretcher w/basil rails up and left in care of ROLANDO Lala with bed locked in lowest position, vss, pt stable
--- NOTE | 2020-09-27 17:11 | HMH.OPNOTE ---
Date of procedure: 09/27/20 Pre-op Diagnosis:: Closed, comminuted and displaced fracture, right elbow Post-op Diagnosis:: Same Procedure performed:: Open reduction and internal fixation with tension band wiring, olecranon fracture, right elbow Surgeon:: Drew Marcial MD Wind Farm Support Specialist(s):: Dimple Westbrook GAS SPECIALIST:: Vini Casas Anesthesia: GETA, regional (Interscalene nerve block) Estimated blood loss (mL): 5 Clinical Note:: Patient is a 49-year-old left hand dominant female, who sustained a comminuted and displaced fracture of the right olecranon process following a mechanical fall about 1 week ago. Patient was subsequently seen in the office and evaluated. X-ray showed the fracture to be displaced and comminuted with disruption of the articular surface and extensor mechanism. Following a detailed discussion regarding the management options with the patient, she elected for open reduction and internal fixation of the fracture. Open reduction and internal fixation in as anatomic position as possible is indicated to accurately reduce and stabilize the intra-articular fracture and to restore the elbow extensor mechanism to facilitate fracture healing, improve function and to reduce risk of future complications as well as to avoid elbow stiffness. It is considered the standard of care for this injury. Please refer to my office note for full details. Operative findings:: As noted on the preoperative examination, there was swelling over the posterior aspect of the elbow. On entering the fracture site a fracture hematoma was noted which was evacuated. There was a comminuted displaced fracture of the olecranon process as noted on the preoperative x-rays/CT scan. There were 2 main fragments which are contributing to the articular surface with several small comminuted fragments of cortico-cancellous bone. The fracture was mobilized and accurately reduced and fixed in a stable fashion. The elbow joint was noted to be stable post fracture reduction and fixation. The bone is osteoporotic. Operative note:: On the day of the surgery, the patient was met in the preoperative area and positively identified. I have again discussed the diagnosis, natural history and management options in detail including both nonsurgical and surgical. The olecranon fracture is comminuted and displaced with disruption of the articular surface. Given the above factors, I have recommended an open reduction and internal fixation of the olecranon fracture. I have discussed about tension band wiring versus plate and screw fixation as appropriate at the time of surgery. I have discussed the details of the procedure, risks and benefits and alternatives in detail. The complications discussed include but are not limited to infection, injury to nerves, tendons and blood vessels, incisional scar (cosmesis), DVT/PE, malunion, nonunion/delayed union, loss of position, refracture, elbow and forearm stiffness, loss of ROM, failure of fixation, heterotopic ossification, ulnar nerve/posterior interosseous nerve/radial nerve palsy, radioulnar synostosis, CRPS (complex regional pain syndrome- pain, sensory and temperature changes, swelling and stiffness), painful/prominent hardware, intra-articular screw penetration, loss of fixation/hardware failure, incomplete relief of pain, incomplete return of function, posttraumatic arthritis and likely need for further surgery in future and also the risks of anesthesia including heart attack, stroke, and . I have discussed how there is a small but real possibility of loss of use of the arm, loss of the limb amputation or loss of life itself. I have also explained how additional surgery may be required if there are any complications or the fracture fails to heal. We have also discussed the postoperative pain management, recovery and rehabilitation, immobilization required, the need for physical/occupational therapy, the possibility of stiffness, chronic pain and we've also discussed t
--- NOTE | 2020-09-27 18:21 | HMH.ANESI ---
[facility] Anesthesia Record Part I Intake, IV Amount: 950 Estimated blood loss (mL): 25 Urine output (mL): 0 Blood Products used (#): none Blood Pressure: 121/77 SaO2: 95 Pulse Rate: 88 Respiratory Rate: 18 Temperature: 97.5 F Patient is:: Awake Stable to PACU at:: 11:13
--- NOTE | 2020-09-27 18:24 | HMH.ANESII ---
[facility] Anesthesia Record Part II Discharge Time: 11:43 Destination: Surgical Day Care (OP Surgery) PACU nurse assessment reviewed?: Yes Patient Condition:: Good Anesthesia Complications:: None Swallowing reflex intact?: Yes Cyanosis?: No Blood Pressure: 117/72 Pulse Rate: 90 Temperature: 98.3 F Mental Status: Alert & Oriented Pain level:: 0 Nausea and/or vomitting:: None Intake, IV Amount: 0
== END 2020-09-27 12:46 | disposition home or self-care (01) ==
LOC: OR 06:12
PROVIDERS: PCP Family Medicine; Visit Provider Orthopaedic Surgery
PROC: (CPT 24685; principal; 2020-09-27 07:30)
DX: S52.021A Displaced fracture of olecranon process without intraarticular extension of right ulna, initial encounter for closed fracture (principal); W01.0XXA Fall on same level from slipping, tripping and stumbling without subsequent striking against object, initial encounter; Y92.019 Unspecified place in single-family (private) house as the place of occurrence of the external cause
CPT/HCPCS: 24685; 73070; 76000; 96374; C1769; J2405

== ENCOUNTER → 2020-10-04 08:48 | Outpatient (CLI) | payer OTHER, SELFPAY ==
--- NOTE | 2020-10-04 08:50 | XR_ITS ---
PROCEDURE: XR ELBOW RT MIN 3V CLINICAL INDICATION: sp ORIF RT elbow with wiring, dos 09/27/2020 COMPARISON: CR XR ELBOW RT MIN 3V from 09/19/2020 CR XR ELBOW RT 2V from 09/27/2020 FINDINGS: Two K-wires and cerclage wire remain in place stabilizing the fracture at the base of the olecranon process which appears to be in good alignment. There is overlying soft tissue swelling in there is a displaced anterior fat pad. IMPRESSION: Good alignment status post ORIF olecranon fracture. Dictated by: Freddy Livingston MD 10/04/2020 18:41 Freddy Livingston MD in [place] 10/04/2020 18:42
== END ==
PROVIDERS: PCP Family Medicine; Visit Provider Orthopaedic Surgery
DX: Z09 Encounter for follow-up examination after completed treatment for conditions other than malignant neoplasm (principal); S52.021D Displaced fracture of olecranon process without intraarticular extension of right ulna, subsequent encounter for closed fracture with routine healing
CPT/HCPCS: 73080

== ENCOUNTER → 2020-10-18 08:49 | Outpatient (CLI) | payer OTHER, SELFPAY ==
--- NOTE | 2020-10-18 08:54 | XR_ITS ---
PROCEDURE: XR ELBOW RT MIN 3V CLINICAL INDICATION: sp ORIF RT elbow, dos 09/27/2020 Follow-up surgery COMPARISON: CR XR ELBOW RT MIN 3V from 09/19/2020 CR XR ELBOW RT 2V from 09/27/2020 CR XR ELBOW RT MIN 3V from 10/04/2020 FINDINGS: Prior of the ulna with pins and cerclage wire in place as before. The olecranon fracture somewhat less apparent. There is good alignment. IMPRESSION: Good alignment status post olecranon fracture Dictated by: Freddy Livingston MD 10/18/2020 10:58 Freddy Livingston MD in [place] 10/18/2020 10:58
--- NOTE | 2020-10-18 08:54 | XR_ITS ---
PROCEDURE: XR WRIST RT MIN 3V CLINICAL INDICATION: right wrist pain Right wrist pain and deformity COMPARISON: No exams were available for comparison FINDINGS: Osteoarthritic changes are present at the radiocarpal joint. There is radial angulation of the wrist. Accessory center of ossification versus ununited old fracture noted at the tip of the ulnar styloid. There are osteoarthritic changes of the scapho trapezium joint and the 1st metacarpal-carpal joint. 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
== END ==
PROVIDERS: PCP Family Medicine; Visit Provider Orthopaedic Surgery
DX: Z09 Encounter for follow-up examination after completed treatment for conditions other than malignant neoplasm (principal); M06.9 Rheumatoid arthritis, unspecified; M25.531 Pain in right wrist; M25.521 Pain in right elbow
CPT/HCPCS: 73080; 73110

== ENCOUNTER → 2020-11-08 09:00 | Outpatient (CLI) | payer OTHER, SELFPAY ==
--- NOTE | 2020-11-08 09:02 | XR_ITS ---
PROCEDURE: XR ELBOW RT MIN 3V CLINICAL INDICATION: sp ORIF RT elbow, dos 09/27/2020 Follow-up ORIF COMPARISON: CR XR ELBOW RT MIN 3V from 09/19/2020 CR XR ELBOW RT 2V from 09/27/2020 CR XR ELBOW RT MIN 3V from 10/04/2020 CR XR ELBOW RT MIN 3V from 10/18/2020 FINDINGS: Status post ORIF olecranon fracture with 2 K-wires and cerclage wire in place. Fracture line is still barely visible. There is good alignment. The joint spaces are well-preserved. No significant degenerative/arthritic changes. No erosive changes evident. Other findings:None. IMPRESSION: Good alignment healing olecranon fracture status post ORIF Dictated by: Freddy Livingston MD 11/08/2020 11:28 Freddy Livingston MD in [place] 11/08/2020 11:28
== END ==
PROVIDERS: PCP Family Medicine; Visit Provider Orthopaedic Surgery
DX: S52.021D Displaced fracture of olecranon process without intraarticular extension of right ulna, subsequent encounter for closed fracture with routine healing (principal); S52.509P Unspecified fracture of the lower end of unspecified radius, subsequent encounter for closed fracture with malunion; M06.9 Rheumatoid arthritis, unspecified; Z09 Encounter for follow-up examination after completed treatment for conditions other than malignant neoplasm
CPT/HCPCS: 73080

== ENCOUNTER → 2020-12-20 09:09 | Outpatient (CLI) | payer OTHER, SELFPAY ==
--- NOTE | 2020-12-20 09:19 | XR_ITS ---
PROCEDURE: XR ELBOW RT MIN 3V CLINICAL INDICATION: sp ORIF RT elbow, dos 09/27/20 COMPARISON: CR XR ELBOW RT 2V from 09/27/2020 CR XR ELBOW RT MIN 3V from 10/04/2020 CR XR ELBOW RT MIN 3V from 10/18/2020 CR XR ELBOW RT MIN 3V from 11/08/2020 FINDINGS: Prior ORIF proximal ulna with K-wires and cerclage wire in place. Good alignment. The joint spaces are well-preserved. No significant degenerative/arthritic changes. No erosive changes evident. Fracture line not readily apparent. Other findings:None. IMPRESSION: No change good alignment prior ORIF of the proximal ulna Dictated by: Freddy Livingston MD 12/20/2020 16:32 Freddy Livingston MD in [place] 12/20/2020 16:32
== END ==
PROVIDERS: PCP Family Medicine; Visit Provider Orthopaedic Surgery
DX: Z09 Encounter for follow-up examination after completed treatment for conditions other than malignant neoplasm (principal); S52.021D Displaced fracture of olecranon process without intraarticular extension of right ulna, subsequent encounter for closed fracture with routine healing
CPT/HCPCS: 73080

== ENCOUNTER → 2021-09-27 13:52 | Outpatient (POV) | payer OTHER, SELFPAY ==
[2021-09-27 14:03] VITALS: BP 151/96; PULSE 89; RESP 18; O2SAT 97; BMI 24.5
--- NOTE | 2021-10-01 04:53 | HMH.PAINSOAP ---
[facility] Pain Management SOAP Note Subjective:: Patient is a pleasant 50-year-old white female who presents today for follow-up. Patient was last seen in our clinic on 07/21/2020. At that time, she did undergo an RFA left side at the C4-C5 C5-C6 area. She got significant relief until recently. Patient says she had more than a year of relief before her pain did return. She is also had an RFA C4-C5 C5-C6 on the right side. Today she is complaining of neck pain made worse with turning her head. She is having difficulty driving due to inability to turn head. She does say when raising arms to steering well she has significant tingling in bilateral upper extremities and hands. She denies any vision changes, headaches, dizziness, nausea, or vomiting. Patient says the pain that she is currently having is the same as she had prior to her previous RFA's. She is here today to discuss proceeding with repeat RFA. She would like to start on the left side, as this is where her pain is worse. Review of Systems General: No recent weight changes, no fever, no sleep disturbances Respiratory: No cough, no shortness of air, no recurring pulmonary infections Cardiovascular/peripheral vascular: No chest pain, no palpitations, no edema, no shortness of breath Gastrointestinal: No new onset incontinence, normal bowel movements reported Genitourinary: No new onset incontinence Musculoskeletal: Neck pain made worse with turning head, numbness and tingling bilateral upper extremities when raising arms Psychiatric: [Normal mood/affect] Neurological: [Denies weakness in extremities], [denies balance issues] Objective:: Physical exam General: Alert and oriented x3, no acute distress, pleasant and cooperative Lungs: Respirations even and unlabored, symmetrical chest expansion Eyes: PERRL Musculoskeletal: Flexion and extension of cervical [spine] somewhat guarded secondary to pain, [antalgic gait noted], positive Spurling's test Neurological: Speech clear, no gross sensory deficit Assessment:: Degenerative disc disease cervical spine with cervical facet arthropathy and cervical spondylosis Plan:: Patient is following up for pain that has presented over a year after her RFA. She is having 8 out of 10 pain today. The patient is having difficulty turning her head and is having numbness and tingling in bilateral upper extremities when raising arms to drive. The pain is worse on the left side at this time. She has had bilateral RFA's in the past has gotten up to 100% relief for more than a year. We will schedule the patient for a RFA C4-C5 C5-C6 left side. We will then proceed to the right side. She is continue with home stretching. She has tried physical therapy for greater than 6 weeks in the past. She does continue with anti-inflammatories as needed as well. We will plan to follow-up with the patient after her RFA for further evaluation. Risks and benefits of the procedure have been explained to the patient. Patient would like to proceed with the procedure. Patient has been instructed to contact the clinic with any concerns before the next appointment. Dr. Marquez has reviewed this note and agrees with this plan of care. This note was dictated using voice recognition software and make contain errors or omissions. [facility] History I have reviewed the patient's past medical history: Yes Medical History: Denies:: Cancer, Diabetes Mellitus Type 1, Diabetes Mellitus Type 2, Internal Pacemaker, MRSA, Seizures *Have you ever received a pneumonia vaccine?: No *Have you received a flu vaccine this season?: No Other Medical History: Reports: Arthritis. Denies: Blood Transfusion Reaction Laterality Cases: Bilateral: Tonsillectomy Other Surgeries: Yes: Hysterectomy-Total, Other. No: Pacemaker Amputation: No Fractures: No - *Social History Smoking Status: Never smoker Alcohol Intake: never Substance Use Type: denies use *Occupational Status:: unemployed
== END ==
PROVIDERS: Visit Provider Clinical Nurse Specialist Family Health
DX: M50.30 Other cervical disc degeneration, unspecified cervical region (principal); M47.812 Spondylosis without myelopathy or radiculopathy, cervical region; M54.02 Panniculitis affecting regions of neck and back, cervical region
CPT/HCPCS: 99212; G0463

== ENCOUNTER → 2021-10-12 14:58 | Day surgery (SDC) | payer OTHER, SELFPAY ==
[2021-10-12 15:05] VITALS: BP 139/92; PULSE 89; RESP 20; TEMP 36.5; O2SAT 98; BMI 24.7
--- NOTE | 2021-10-12 15:13 | HMH.PMPROC ---
- Procedure Date: 10/12/21 Time: 15:13 Anesthesiologist:: Juli Loving MD Complications:: None Pre-procedure Diagnosis:: Degenerative disc disease of the cervical spine, cervical facet arthropathy, cervical spondylosis Post-procedure Diagnosis:: Same Indications for Procedure:: Patient is a very pleasant 50-year-old female who presents today with chronic neck pain related to the above diagnosis. She has tried and failed conservative treatment including oral pain medication and home stretching program for greater than 6 weeks. She has previously undergone 2 successful diagnostic cervical facet joint/medial branch block injections at C for C5 and C5-C6 on the left side. This also undergone bilateral therapeutic cervical RFA in the past with good pain relief. The plan for today is for the patient to undergo therapeutic cervical RFA at C4-C5 and C5-C6 on the left side #1. Procedure Details:: Cervical RFA Informed consent was obtained and the risk and benefits of the procedure was explained to the patient. Patient was placed prone on the procedure table. The patient was prepped and draped in sterile fashion. C-arm fluoroscopy was used to view the lumbar spine. The skin and subcutaneous tissues were anesthetized using lidocaine. I placed 20-gauge RF needles into the facet joints of C4-C5 and C5-C6 levels on the left side. We underwent sensory stimulation. There is good sensory stimulation at 0.8 V. We underwent motor stimulation. There is no motor stimulation at 2.5 V. We then anesthetized these levels with lidocaine and Depo-Medrol. I used a total of 40 mg Depo-Medrol for all 2 levels. I then burned all 2 levels of C4-C5 and C5-C6 facet joint/medial branches on the left side for 4 minutes at 80?C. Patient tolerated the procedure well with no complications. Plan and Disposition:: We will follow-up with patient in 2 weeks. Will reevaluate pain symptoms at that time.
[2021-10-12 15:17] VITALS: BP 131/96; PULSE 99; RESP 18; O2SAT 95
[2021-10-12 15:20] VITALS: PULSE 98; RESP 18; O2SAT 95
== END ==
PROVIDERS: PCP Family Medicine; Visit Provider Anesthesiology Pain Medicine
DX: M50.30 Other cervical disc degeneration, unspecified cervical region (principal); M47.812 Spondylosis without myelopathy or radiculopathy, cervical region; M54.02 Panniculitis affecting regions of neck and back, cervical region; M19.90 Unspecified osteoarthritis, unspecified site; Z88.8 Allergy status to other drugs, medicaments and biological substances
CPT/HCPCS: 64635; 64636; J1040

== ENCOUNTER → 2021-11-05 10:25 | Outpatient (POV) | payer OTHER, SELFPAY ==
[2021-11-05 10:38] VITALS: BP 155/94; PULSE 116; RESP 18; O2SAT 95; BMI 25.0
--- NOTE | 2021-11-05 10:58 | HMH.PAINSOAP ---
[facility] Pain Management SOAP Note Subjective:: Patient is a 51-year-old white female who is following up today after cervical RFA left side. Patient got up to 70 to 80% relief with the RFA. She says that she got complete relief of numbness and tingling into the left arm after the RFA. She is continue to have pain into the right side of neck and right arm with numbness and tingling. This is more noticeable when she is driving and the arm is raised. She is currently caring for her who has cirrhosis end-stage. She is having to lift firewood daily and travel up and down 12 stairs for a wood-burning stove. She is doing heavy lifting and is noticing severe pain in her left shoulder today. She does have a history of rheumatoid arthritis. She has limited range of motion to left shoulder and arm today. Rates her pain a 7 out of 10. She is not on any anticoagulation therapy. Review of Systems General: No recent weight changes, no fever, no sleep disturbances Respiratory: No cough, no shortness of air, no recurring pulmonary infections Cardiovascular/peripheral vascular: No chest pain, no palpitations, no edema, no shortness of breath Gastrointestinal: No new onset incontinence, normal bowel movements reported Genitourinary: No new onset incontinence Musculoskeletal: Left shoulder pain, right arm numbness and tingling, difficulty turning head to right side Psychiatric: [Normal mood/affect] Neurological: [Denies weakness in extremities], [denies balance issues] Objective:: Physical exam General: Alert and oriented x3, no acute distress, pleasant and cooperative Lungs: Respirations even and unlabored, symmetrical chest expansion Eyes: PERRL Musculoskeletal: Flexion and extension of cervical [spine] somewhat guarded secondary to pain, normal gait noted Neurological: Speech clear, no gross sensory deficit Assessment:: Degenerative disc disease cervical spine with cervical facet arthropathy cervical spondylosis, left shoulder pain, left shoulder osteoarthritis Plan:: We will schedule patient for a left shoulder intra-articular injection. She is having significant pain due to recent heavy lifting. She does have a history of arthritis to her left shoulder. She has performed physical therapy for more than 6 weeks in the past along with home stretching. She is also tried anti-inflammatories with minimal relief. 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 The patient would like to proceed with injective therapy Following the left shoulder injection she would like to proceed with right side RFA at C4-C5 C5-C6. Possible side effects of corticosteroids have been discussed with the patient. Risks and benefits of the procedure have been explained to the patient. Patient would like to proceed with the procedure. Patient has been instructed to contact the clinic with any concerns before the next appointment. Dr. Marquez has reviewed this note and agrees with this plan of care. This note was dictated using voice recognition software and make contain errors or omissions. [facility] History I have reviewed the patient's past medical history: Yes Medical History: Denies:: Cancer, Diabetes Mellitus Type 1, Diabetes Mellitus Type 2, Internal Pacemaker, MRSA, Seizures *Have you ever received a pneumonia vaccine?: No *Have you received a flu vaccine this season?: No Other Medical History: Reports: Arthritis. Denies: Blood Transfusion Reaction Laterality Cases: Bilateral: Tonsillectomy Other Surgeries: Yes: Hysterectomy-Total, Other. No: Pacemaker Amputation: No Fractures: No - *Social History Smoking Status: Never smoker Alcohol Intake: never Substance Use Type: denies use *Occupational Status:: unemployed Housing: house Household Members: spouse *Travel in the last 8 weeks: None Family Hx:: Heart Attack
== END ==
PROVIDERS: Visit Provider Clinical Nurse Specialist Family Health
DX: M50.10 Cervical disc disorder with radiculopathy, unspecified cervical region (principal); M54.02 Panniculitis affecting regions of neck and back, cervical region; M47.812 Spondylosis without myelopathy or radiculopathy, cervical region; M19.012 Primary osteoarthritis, left shoulder
CPT/HCPCS: 99212; G0463

== ENCOUNTER 2021-11-23 14:24 | Day surgery (SDC) | payer OTHER, SELFPAY ==
[2021-11-23 14:32] VITALS: BP 134/93; PULSE 92; RESP 16; TEMP 36.6; O2SAT 97; BMI 24.8
[2021-11-23 14:53] VITALS: BP 142/93; PULSE 92; RESP 20; O2SAT 98
[2021-11-23 14:55] VITALS: BP 146/92; PULSE 92; RESP 18; O2SAT 98
--- NOTE | 2021-11-23 15:01 | P.PCN_ITS ---
- Procedure Date: 11/23/21 Time: 15:01 Anesthesiologist:: Juli Loving MD Complications:: None Pre-procedure Diagnosis:: Left shoulder pain secondary to primary osteoarthritis, glenohumeral arthropathy, subacromial bursitis Post-procedure Diagnosis:: Same Indications for Procedure:: This patient is a very pleasant 51-year-old white female who presents today with chronic left-sided shoulder pain related to the above diagnosis. She attributes her significant pain due to recent heavy lifting. She states that she has a known history of arthritis to the left shoulder joint. She has tried and failed conservative treatment and oral pain medications and home stretching program for greater than 6 weeks. She was taking [id number] and anti-inflammatories with very minimal pain relief. Of note, she also has previously undergone left- sided cervical RFA notes 70 to 80% pain relief in regards to the neck and arm pain symptoms on the left side. The plan will be for the patient to undergo right-sided cervical RFA at C4-C5 and C5-C6 in the future. Today the plan is for the patient to undergo intra-articular left shoulder injection to the glenohumeral joint and subacromial bursa Procedure Details:: Informed consent was obtained. Risks and benefits of the procedure were explained to the patient. Patient was taken back to the procedure. The left shoulder was prepped using ChloraPrep. A 25-gauge needle was used first posteriorly in the medial to lateral trajectory the needle is advanced into the glenohumeral joint of the left shoulder was approached, at which point 3 mL of injectate solution of 5 mL of 1% lidocaine, 5 mL bupivacaine 0.25% and Depo- Medrol 40 mg was injected. Next the trajectory was adjusted so that the needle was advanced anteriorly and superiorly into the subacromial bursa of the shoulder, at which point 5 mL of the same injectate solution was injected. The needle was then removed. Patient tolerated the procedure well without any complications. Plan and Disposition:: Follow-up with this patient in 2 weeks. Will reevaluate pain symptoms at that time. Of note, the patient like to proceed with right-sided cervical RFA at C4- C5 and C5-C6.
[2021-11-23 15:03] VITALS: BP 129/88; PULSE 84; RESP 20; O2SAT 96
== END 2021-11-23 15:04 | disposition home or self-care (01) ==
LOC: SC.PAINP 14:25
PROVIDERS: PCP Family Medicine; Visit Provider Anesthesiology Pain Medicine
DX: M19.011 Primary osteoarthritis, right shoulder (principal); M75.52 Bursitis of left shoulder
CPT/HCPCS: 20610; J1040

== ENCOUNTER 2021-12-07 14:21 | Day surgery (SDC) | payer OTHER, SELFPAY ==
[2021-12-07 14:24] VITALS: BP 134/87; BP 134/92; BP 137/94; PULSE 102; PULSE 86; PULSE 98; RESP 18; RESP 20; TEMP 36.5; O2SAT 97; O2SAT 98; O2SAT 99; BMI 25.0
[2021-12-07 15:16] VITALS: BP 138/89; PULSE 88; RESP 20; O2SAT 98
--- NOTE | 2021-12-07 15:18 | HMH.PMPROC ---
- Procedure Date: 12/07/21 Time: 15:18 Anesthesiologist:: Abdulaziz Marquez MD Complications:: None Pre-procedure Diagnosis:: Degenerative disc disease of the cervical spine with cervical facet arthropathy and cervical spondylosis Post-procedure Diagnosis:: Same Indications for Procedure:: Patient is a pleasant 51-year-old white female who we are treating for neck pain with cervical spondylosis and cervical facet arthropathy. She is done well with previous cervical RFA. She presents for RFA to the cervical facet joint/medial branches of C4-C5 and C5-C6. She is done well with medial branch blocks to these levels previously. Procedure Details:: Cervical RFA Informed consent was obtained and the risk and benefits of the procedure was explained to the patient. Patient was placed prone on the procedure table. The patient was prepped and draped in sterile fashion. C-arm fluoroscopy was used to view the lumbar spine. The skin and subcutaneous tissues were anesthetized using lidocaine. I placed 20-gauge RF needles into the facet joints of C4-C5 and C5-C6 levels on the right side. We underwent sensory stimulation. There is good sensory stimulation at 0.8 V. We underwent motor stimulation. There is no motor stimulation at 2.5 V. We then anesthetized these levels with lidocaine and Depo-Medrol. I used a total of 40 mg Depo-Medrol for both levels. I then burned right sided facet joint/medial branches C4-C5 and C5-C6 for 4 minutes at 80 ?C. Patient tolerated the procedure well with no complication. Plan and Disposition:: We will follow-up with this patient in 2 weeks. Will reevaluate her symptoms at that time.
== END 2021-12-07 15:17 | disposition home or self-care (01) ==
LOC: SC.PAINP 14:21
PROVIDERS: PCP Family Medicine; Visit Provider Anesthesiology
DX: M50.30 Other cervical disc degeneration, unspecified cervical region (principal); M54.02 Panniculitis affecting regions of neck and back, cervical region; M47.812 Spondylosis without myelopathy or radiculopathy, cervical region; J45.909 Unspecified asthma, uncomplicated; M19.90 Unspecified osteoarthritis, unspecified site; M79.7 Fibromyalgia; Z88.8 Allergy status to other drugs, medicaments and biological substances
CPT/HCPCS: 64633; 64634; J1040

== ENCOUNTER → 2022-01-07 10:51 | Outpatient (POV) | payer OTHER, SELFPAY ==
[2022-01-07 11:05] VITALS: BP 123/85; PULSE 94; RESP 18; TEMP 36.4; O2SAT 100; BMI 24.7
--- NOTE | 2022-01-07 12:28 | HMH.PAINSOAP ---
[facility] Pain Management SOAP Note Subjective:: Patient is a pleasant 51-year-old female who presents today for follow-up after a right cervical RFA at C4-C5 and C5-C6 on December 07, 2021. Patient had a left cervical RFA 2 weeks before that. We have been managing this patient's cervical pain with cervical RFA's. This is the patient's third cervical RFA. Today, patient states that she had significant relief after the left cervical RFA but not the right one. She states that she is having some tenderness around her right shoulder and numbness and paresthesia on her right hand especially when she is driving. She rates her pain today as 7 out of 10. She is not taking anything else for pain. She is not on any scheduled medications. Review of Systems: General: No recent weight changes, no fever, no sleep disturbances Respiratory: No cough, no shortness of air, no recurring pulmonary infections Cardiovascular/peripheral vascular: No chest pain, no palpitations, no edema, no shortness of breath Gastrointestinal: No new onset incontinence, normal bowel movements reported Genitourinary: No new onset incontinence Musculoskeletal: Neck pain Psychiatric: [Normal mood/affect] Neurological: [Denies weakness in extremities], [denies balance issues] Objective:: Physical Exam: General: Alert and oriented x3, no acute distress, pleasant and cooperative, [on room air] Lungs: Respirations even and unlabored, symmetrical chest expansion Eyes: PERRL Musculoskeletal: Flexion and extension of cervical [spine] somewhat guarded secondary to pain, [antalgic gait noted] Neurological: Speech clear, no gross sensory deficit Assessment:: Degenerative disc disease of the cervical spine with cervical radiculopathy symptoms Cervical facet arthropathy Cervical spondylosis Plan:: We have been managing this patient's cervical pain with cervical RFAs at C4-C5 and C5-C6 in the past. This is the patient's third cervical RFA. She had significant relief after her left cervical RFA but did not get much relief after her right cervical RFA. She continues to have tenderness around her right shoulder and numbness and paresthesia that goes to her right hand. Patient has tried and failed other conservative therapies such as oral medication, physical therapy, and at home exercises. We will schedule the patient for a cervical epidural steroid injection. Risks and benefits of the procedure have been explained to the patient. Patient would like to proceed with the procedure. Patient is not on any blood thinners. I will also start the patient on a compounding cream for her right shoulder pain. Patient has been instructed to contact the clinic with any concerns before the next appointment. Dr. Marquez has reviewed this note and agrees with this plan of care. This note was dictated using voice recognition software and make contain errors or omissions. [facility] History Medical History: Denies:: Cancer, Diabetes Mellitus Type 1, Diabetes Mellitus Type 2, Internal Pacemaker, MRSA, Seizures *Have you ever received a pneumonia vaccine?: No *Have you received a flu vaccine this season?: No Other Medical History: Reports: Arthritis, Fibromyalgia. Denies: Blood Transfusion Reaction Laterality Cases: Bilateral: Tonsillectomy Other Surgeries: Yes: Hysterectomy-Total, Other. No: Pacemaker Amputation: No Fractures: No - *Social History Smoking Status: Never smoker Alcohol Intake: never Substance Use Type: denies use *Occupational Status:: employed Housing: house Household Members: spouse *Travel in the last 8 weeks: None Family Hx:: No significant family history
== END ==
PROVIDERS: Visit Provider Student in an Organized Health Care Education/Training Program
DX: M50.121 Cervical disc disorder at C4-C5 level with radiculopathy (principal); M50.122 Cervical disc disorder at C5-C6 level with radiculopathy; M54.02 Panniculitis affecting regions of neck and back, cervical region; M47.892 Other spondylosis, cervical region
CPT/HCPCS: 99212; G0463

== ENCOUNTER 2022-05-15 15:19 | Emergency (ER) | payer OTHER, SELFPAY ==
--- NOTE | 2022-05-15 | CA_ITS ---
FINAL REPORT CLINICAL HISTORY: .post op RA, Rt posterior knee pain x 2 weeks FINDINGS: Color Doppler, duplex Doppler and compression sonography of the bilateral lower extremities was performed. There is no evidence of DVT in the left lower extremity. There is deep venous thrombosis of the right posterior tibial vein. The deep veins are patent and compressible. IMPRESSION: Deep venous thrombosis of the right posterior tibial vein. No evidence of DVT on the left. Reviewed, Interpreted and Dictated by David Rodríguez III, MD Transcribed by Geetha Kearney Authenticated and [facility]
--- NOTE | 2022-05-15 15:36 | PC.NURSE ---
Spoke to nurse at urgent care in [place] where pt was seen today ([facility]) for pt records of visit and was given a verbal lab value via phone. pt had a ddimer of 3340. pt was instructed to go to the ed for eval for r/o dvt.
[2022-05-15 15:38] VITALS: BP 136/85; PULSE 91; RESP 18; TEMP 36.9; O2SAT 97; BMI 23.8
--- NOTE | 2022-05-15 16:25 | PC.NURSE ---
CV lab staff at for doppler
[2022-05-15 16:28] LABS: Basophils # 0.1 K/mm3 (0-0.2); Basophils % 0.8 % (0.1-2.0); Eosinophils % 0.3 % (0.1-12.0); Hematocrit 45.6 % (37.0-47.0); Hemoglobin 13.9 g/dL (12.2-16.2); Lymphocytes % 8.5 % (10-50); Mean Corpuscular HGB Conc 30.6 g/dL (31.8-35.4); Mean Corpuscular Hemoglobin 27.1 pg (27.0-31.2); Mean Corpuscular Volume 88.8 fl (81-99); Mean Platelet Volume 8.6 fl (7.4-10.4); Monocytes # 0.8 K/mm3 (0.1-1.0); Monocytes % 6.8 % (1.7-9.3); Neutrophils # 9.4 K/mm3 (1.8-7.8); Neutrophils % 83.5 % (37.0-80.0); Platelet Count 500 K/mm3 (142-424); Red Blood Count 5.13 M/mm3 (4.20-5.40); Red Cell Distribution Width 15.4 % (11.5-17.5); White Blood Count 11.3 K/mm3 (4.8-10.8)
[2022-05-15 16:39] LABS: Alanine Aminotransferase 38 U/L (12-78); Albumin Level 3.7 g/dl (3.5-5.0); Albumin/Globulin Ratio 1.1 (1.1-1.8); Alkaline Phosphatase 158 U/L (38-126); Aspartate Amino Transferase 42 U/L (14-36); Blood Urea Nitrogen 10 mg/dl (7-17); Carbon Dioxide 29 mmol/L (22.0-30.0); Chloride 104 mmol/L (98-107); Creatinine Clearance Estimated 89 mL/min (50-200); Estimated Glomerular Filt Rate 88 ml/min (>60); GFR (African American) 107 ML/MIN (>60); Globulin 3.4 g/dL (1.3-3.2); Glucose 92 mg/dl (74-100); Sodium 138 mmol/L (136-145); Total Protein,Serum 7.1 g/dl (6.3-8.2)
--- NOTE | 2022-05-15 16:39 | PC.NURSE ---
cv lab gave verbal report to QUINTON VERNON
[2022-05-15 16:40] LABS: Bilirubin,Total 0.1 mg/dl (0.2-1.3)
[2022-05-15 16:43] LABS: D-Dimer 1.88 ug/mL (0.0-0.5)
[2022-05-15 16:44] LABS: C-Reactive Protein 72.3 mg/L (0-4)
--- NOTE | 2022-05-15 17:17 | HMH.EDGENADL ---
ED Disposition Clinical Impression: Right leg DVT Qualifiers: Affected thrombotic vein of extremity: popliteal Chronicity: acute Qualified Code(s): I82.431 - Acute embolism and thrombosis of right popliteal vein Disposition: Home, Self-Care Condition on Discharge: Good Instructions: DI for Deep Vein Thrombosis Prescriptions: Apixaban [Eliquis] 5 mg PO DAILY #74 tab Transmission Status: Received by [id number] Referrals: Julisa Kerr [Primary Care Provider] - - Critical Care Critical Care Time: No Attestation: On 05/15/22, the high probability of a clinically significant, sudden or life threatening deterioration of the following system(s) required my full and direct attention, intervention and personal management. The time I documented below is in addition to time spent performing reported procedures but includes the following listed in this critical care notation. Medical Decision Making - Baldo Inquiry Pt receiving controlled substance: No Vital Signs: 05/15/22 15:38 Temperature 98.4 F Temperature Source Oral Pulse Rate [Left Radial] 91 H Respiratory Rate 18 Blood Pressure [Right Arm] 136/85 Blood Pressure Mean [Right Arm] 102 02 Sat by Pulse Oximetry 97 Oxygen Delivery Method Room Air - Lab Data Lab Results 05/15/22 15:35: WBC 11.3 H, RBC 5.13, Hgb 13.9, Hct 45.6, MCV 88.8, MCH 27.1, MCHC 30.6 L, RDW 15.4, Plt Count 500 H, MPV 8.6, Neut % (Auto) 83.5 H, Lymph % (Auto) 8.5 L, Gooding % (Auto) 6.8, Eos % (Auto) 0.3, Baso % (Auto) 0.8, Neut # (Auto) 9.4 H, Lymph # (Auto) 1.0, Gooding # (Auto) 0.8, Eos # (Auto) 0.0, Baso # (Auto) 0.1 05/15/22 15:35: D-Dimer 1.88 H 05/15/22 15:35: Sodium 138, Potassium 4.0, Chloride 104, Carbon Dioxide 29, Anion Gap 9.0, BUN 10, Creatinine 0.70, Estimated Creat Clear 89, Estimated GFR 88, Est GFR ( Amer) 107, Glucose 92, Calcium 9.0, Total Bilirubin 0.1 L, AST 42 H, ALT 38, Alkaline Phosphatase 158 H, C-Reactive Protein 72.3 H, Total Protein 7.1, Albumin 3.7, Globulin 3.4 H, Albumin/Globulin Ratio 1.1 Result diagrams: 05/15/22 15:35 05/15/22 15:35 Orders (Tests/Meds): ED MEDICATIONS Generic Name Dose Route Start Last Admin Trade Name Faisal PRN Reason Stop Dose Admin Sodium Chloride 10 ml 05/15/22 15:49 Sodium Chloride 0.9% 10ml Flush Syringe IV 06/14/22 15:48 NEEDED PRN Maintain IV Site Medical Decision Narrative: In review this is a 51-year-old female who presents with right leg swelling. Hemodynamically stable and nontoxic-appearing. On physical exam she does have an area that I think to be a palpable cord on the posterior aspect of the right leg and does have swelling of the right leg compared to the left. Laboratory studies also reveal that she has an elevated D-dimer. Ultrasound confirms right-sided DVT.. Due to this I started the patient on Eliquis and recommend that she talk with her protein chemist about her medications that she may have to transition to something different for her rheumatoid until her DVT resolves. She voiced understanding of this. I gave her extremely strict return precautions. Stable for discharge. Return precautions given. General Adult HPI - General Chief complaint: Extremity Problem,Nontraumatic Stated complaint: pain in both legs Possible DVT Time Seen by Provider: 05/15/22 15:45 Mode of Arrival: Ambulatory Limitations: No Limitations Description of Symptoms (Recalled from ER Triage Doc. by RN): pt to ed c/o bilateral lower extremity pain and redness. pt states she has been having this pain x2 weeks. pt reports being seen in an urgent care earlier today and had blood work done. pt states she was called by the urgent care and was told to be seen in the ed for eval for r/o dvt. pt states a hx of RA. - History of Present Illness HPI narrative: Patient is a 51-year-old female with a history of rheumatoid arthritis on methotrexate who presents as a request from an urgent care with concerns fo
[2022-05-15 17:39] VITALS: BP 131/80; PULSE 89; RESP 16; TEMP 36.9; O2SAT 95
== END 2022-05-15 17:39 | disposition home or self-care (01) ==
PROVIDERS: Emergency Provider Student in an Organized Health Care Education/Training Program; PCP Family Medicine
DX: I82.431 Acute embolism and thrombosis of right popliteal vein (principal); M06.9 Rheumatoid arthritis, unspecified
CPT/HCPCS: 80053; 85025; 85378; 86140; 93970; 99284

== ENCOUNTER 2022-07-15 11:14 | Emergency (ER) | payer OTHER, SELFPAY ==
[2022-07-15 11:15] VITALS: BP 143/84; PULSE 110; RESP 18; TEMP 36.8; O2SAT 98; BMI 23.3
[2022-07-15 11:40] VITALS: BP 143/84; PULSE 110; RESP 18; TEMP 36.8; O2SAT 98; BMI 23.8
--- NOTE | 2022-07-15 11:42 | EXP.UTC ---
Discharge Plan Disposition Patient Disposition: Home, Self-Care Condition: Good Prescriptions Prescriptions: New methylprednisolone 4 mg Tablets,Dose Pack 4 mg PO DIRECTED Qty: 21 0RF No Action leflunomide 10 mg tablet 10 mg PO DAILY ibuprofen 600 MG tablet 600 mg PO Q6HP PRN (Reason: Moderate Pain) Qty: 20 0RF pregabalin 75 MG capsule 75 mg PO BID prednisone 10 MG tablets,dose pack 10 mg PO DAILY amitriptyline 25 MG tablet 25 mg PO DAILY Label Comments: TAKE 1 TABLET BY MOUTH EVERY DAY AT NIGHT methotrexate sodium (PF) 1 GM recon soln 1 gm IJ DAILY folic acid 1 MG tablet 5 mg PO DAILY apixaban 5 MG tablet 5 mg PO DAILY Qty: 74 0RF Rx Instructions: Please take 10 mg twice a day for 7 days then take 5 mg twice a day daily for the next 30 days Referrals Follow up/Referrals: Julisa Kerr [Primary Care Provider] - See instructions Activity Restrictions/Add. Instructions Additional Instructions/Restrictions: Go home and rest. It would be best if you rested tomorrow too. No heavy lifting. Take the oral medications as directed. Follow up with your regular doctor. GO TO THE ER FOR ANY WORSENING SYMPTOMS OR CONCERN, ESPECIALLY BOWEL OR BLADDER ISSUES, SADDLE AREA NUMBNESS, FEVER, ETC Clinical Impressions Clinical Impression: Left knee pain, Ankle pain, left Instructions Patient Instructions: DI for Ankle Pain, DI for Knee Pain Discharge ED Provider: Pablo Guzman [facility] [place] General Stated complaint: knee pain, no accident Mode of Arrival: Ambulatory Limitations: No Limitations Time Seen by Provider: 07/15/22 11:42 Description of Symptoms (Recalled from Triage Doc. by RN): PT REPORTS LEFT KNEE AND ANKLE PAIN X 3 DAYS. PT WITH HX OF RA. RECENTLY COMPLETED AVST History of Present Illness Provider Complaint: She is here with continued left knee and left ankle pain. She denies any known injury. She has a history of RA. Related Data Home Medications Medication Instructions Recorded Confirmed amitriptyline 25 mg tablet 25 mg PO DAILY Pain 03/22/19 01/07/22 methotrexate sodium (PF) 1 gram 1 gm IJ DAILY Supplement 03/22/19 01/07/22 solution for injection folic acid 1 mg tablet 5 mg PO DAILY Supplement 04/09/19 01/07/22 leflunomide 10 mg tablet 10 mg PO DAILY Rapid heart rate 12/23/20 04/11/22 prednisone 10 mg tablets in a dose 10 mg PO DAILY . 10/12/21 01/07/22 pack pregabalin 75 mg capsule 75 mg PO BID . 10/12/21 01/07/22 Previous Rx's Medication Instructions Recorded ibuprofen 600 mg tablet 600 mg PO Q6HP PRN Moderate Pain 09/19/20 #20 tabs apixaban 5 mg tablet 5 mg PO DAILY #74 tabs 05/15/22 methylprednisolone 4 mg tablets in 4 mg PO DIRECTED #21 tabs 07/15/22 a dose pack Allergies Allergy/AdvReac Type Severity Reaction Status Date / Time abatacept [From Orencia] Allergy Verified 12/07/21 14:25 adalimumab [From Humira] Allergy Verified 12/07/21 14:25 celecoxib [From Celebrex] Allergy Verified 12/07/21 14:25 etanercept [From Enbrel] Allergy Verified 07/15/22 11:44 meloxicam [From Mobic] Allergy Verified 07/15/22 11:44 tocilizumab [From Actemra] Allergy Verified 12/07/21 14:25 tofacitinib Allergy Verified 07/15/22 11:44 PFSH PFSH Social History Smoking Status: Never smoker second hand exposure: No alcohol intake: never substance use type: denies use current occupational status: employed Travel in the last 8 weeks: None household members: spouse housing: house 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
[2022-07-15 12:10] VITALS: BP 143/84; PULSE 110; RESP 18; TEMP 36.8
== END 2022-07-15 12:13 | disposition home or self-care (01) ==
LOC: ER 11:27 → UTC 11:27
PROVIDERS: Emergency Provider Nurse Practitioner Family; PCP Family Medicine
DX: M25.562 Pain in left knee (principal); M25.572 Pain in left ankle and joints of left foot
CPT/HCPCS: 99212; G0463

== ENCOUNTER 2022-10-04 13:12 | Emergency (ER) | payer OTHER, SELFPAY ==
[2022-10-04 13:25] VITALS: BP 133/88; PULSE 91; RESP 18; TEMP 36.6; O2SAT 99; BMI 23.8
--- NOTE | 2022-10-04 13:45 | EXP.UTC ---
Discharge Plan Disposition Patient Disposition: Home, Self-Care Condition: Good Prescriptions Prescriptions: No Action leflunomide 10 mg tablet 10 mg PO DAILY azithromycin [Zithromax Z-Ty] 250 mg tablet See Rx Instructions PO .COMPLEX Qty: 6 0RF Rx Instructions: For 250 mg dose pack: take 500 mg today (day 1), then 250 mg for 4 days (days 2-5) PO ibuprofen 600 MG tablet 600 mg PO Q6HP PRN (Reason: Moderate Pain) Qty: 20 0RF pregabalin 75 MG capsule 75 mg PO BID prednisone 10 MG tablets,dose pack 10 mg PO DAILY amitriptyline 25 MG tablet 25 mg PO DAILY Label Comments: TAKE 1 TABLET BY MOUTH EVERY DAY AT NIGHT methotrexate sodium (PF) 1 GM recon soln 1 gm IJ DAILY folic acid 1 MG tablet 5 mg PO DAILY methylprednisolone 4 mg Tablets,Dose Pack 4 mg PO DIRECTED Qty: 21 0RF apixaban 5 MG tablet 5 mg PO BID Rx Instructions: Please take 10 mg twice a day for 7 days then take 5 mg twice a day daily for the next 30 days Referrals Follow up/Referrals: Julisa Kerr [Primary Care Provider] - See instructions Activity Restrictions/Add. Instructions Additional Instructions/Restrictions: *weight bearing as tolerated *RICE, Rest the extremity, Ice 15-20 minutes 3-4 times daily, Compress- wear the eros wrap as discussed as much as possible to help reduce swelling and pain, Elevate the extremity when at rest *Eros wrap is for support and help control swelling, use it except in the shower. Be sure that is not to tight but not to loose either *Elevate when resting? Tylenol if you can take it for pain Immediately follow up with your family doctor for new or worsening of symptoms, or no noticeable improvement over the next 3-5 days Clinical Impressions Clinical Impression: Strain of calf muscle Qualifiers: Encounter type: initial encounter Laterality: right Qualified Code(s): S86.811A - Strain of other muscle(s) and tendon(s) at lower leg level, right leg, initial encounter Instructions Patient Instructions: Calf Muscle Strain, DI for Calf Muscle Strain [place]charge ED Provider: Tessie Chamorro [facility] [place] Stated complaint: pain back of right leg, no accident Mode of Arrival: Ambulatory Source of Information: Patient Limitations: No Limitations Time Seen by Provider: 10/04/22 13:47 Description of Symptoms (Recalled from Triage Doc. by RN): PATIENT C/O PAIN IN RIGHT CALF X 3 DAYS. REPORTS A HISTORY OF BLOOD CLOTS HEENT Symptoms (Recalled from RN notes): No Resp Symptoms (Recalled from RN notes): No Skin Symptoms (Recalled from RN notes): No MS Symptoms (Recalled from RN notes): Yes Functional Status (Recalled from RN notes): WNL History of Present Illness Provider Complaint: Patient states that she has been having pain in her right calf area for about 3 days that is worse with movement States that she has not had any swelling or discomfort but she has a hx of DVT and she was worried she may have another States that she hasnt done anything that she recalls to hurt it but 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 10/12/21 01/07/22 pack pregabalin 75 mg capsule 75 mg PO BID . 10/12/21 01/07/22 apixaban 5 mg tablet 5 mg PO BID BLOOD CLOTTING DISORDER 10/04/22 10/04/22 Previous Rx's Medication Instructions Recorded ibuprofen 600 mg tablet 600 mg PO Q6HP PRN Moderate Pain 09/19/20 #20 tabs
--- NOTE | 2022-10-04 13:46 | CA_ITS ---
FINAL REPORT TECHNIQUE: Multiple transverse and longitudinal images were performed of right the femoral-popliteal deep venous system with augmentation and compression maneuvers. CLINICAL HISTORY: calf pain hx DVT, POSSIBLE CLOTTING DISORDER,Appt w hematology later this month DVT 05/15/22 Pt on Eliquis, no missed doses. FINDINGS: Right lower extremity duplex ultrasound demonstrates normal flow in the deep venous system. There is no abnormal echogenicity to suggest thrombus. There is normal compression and augmentation. IMPRESSION: No evidence of right DVT. Reviewed, Interpreted and Dictated by David Rodríguez III, MD Transcribed by Daly Rodriguez Authenticated and . [facility]
[2022-10-04 15:24] VITALS: BP 133/88; PULSE 91; RESP 18; TEMP 36.6; O2SAT 99
== END 2022-10-04 15:27 | disposition home or self-care (01) ==
PROVIDERS: Emergency Provider Nurse Practitioner; PCP Family Medicine
DX: S86.811A Strain of other muscle(s) and tendon(s) at lower leg level, right leg, initial encounter (principal); M79.661 Pain in right lower leg
CPT/HCPCS: 93971; 99213; G0463

== ENCOUNTER 2023-05-13 13:58 | Emergency (ER) | payer OTHER, SELFPAY ==
[2023-05-13 14:02] VITALS: BP 151/95; PULSE 99; O2SAT 100
[2023-05-13 14:05] VITALS: BP 151/95; PULSE 102; RESP 20; TEMP 36.8; O2SAT 100; BMI 25.2
[2023-05-13 14:30] VITALS: BP 124/86; PULSE 92; O2SAT 98
--- NOTE | 2023-05-13 14:33 | HMH.EDGENADL ---
Discharge Plan Disposition Patient Disposition: Home, Self-Care Condition: Fair Chief Complaint: Weakness Prescriptions Prescriptions: No Action leflunomide 10 mg tablet 10 mg PO DAILY azithromycin [Zithromax Z-Ty] 250 mg tablet See Rx Instructions PO .COMPLEX Qty: 6 0RF Rx Instructions: For 250 mg dose pack: take 500 mg today (day 1), then 250 mg for 4 days (days 2-5) PO ibuprofen 600 MG tablet 600 mg PO Q6HP PRN (Reason: Moderate Pain) Qty: 20 0RF pregabalin 75 MG capsule 75 mg PO BID prednisone 10 MG tablets,dose pack 10 mg PO DAILY amitriptyline 25 MG tablet 25 mg PO DAILY Patient Comments: TAKE 1 TABLET BY MOUTH EVERY DAY AT NIGHT methotrexate sodium (PF) 1 GM recon soln 1 gm IJ DAILY folic acid 1 MG tablet 5 mg PO DAILY methylprednisolone 4 mg Tablets,Dose Pack 4 mg PO DIRECTED Qty: 21 0RF apixaban 5 MG tablet 5 mg PO BID Rx Instructions: Please take 10 mg twice a day for 7 days then take 5 mg twice a day daily for the next 30 days Referrals Follow up/Referrals: Julisa Kerr [Primary Care Provider] - See instructions Activity Restrictions/Add. Instructions Additional Instructions/Restrictions: At this time was felt you are safe to be discharged home. If new or worsening symptoms please do not hesitate to return the emergency department. Please follow-up with your family doctor next week for continued evaluation of your mass in your left popliteal fossa, multiple lymph nodes in your right axilla. Clinical Impressions Clinical Impression: Axillary adenopathy, Mass of left lower leg Discharge ED Provider: Sumit Vega General Adult HPI <Dimple Long DO - Last Filed: 05/13/23 16:34> General Chief complaint: Weakness Stated complaint: bilateral leg swelling, fatigue, weakness Time Seen by Provider: 05/13/23 14:26 Mode of Arrival: Ambulatory Source of Information: Patient Limitations: No Limitations Description of Symptoms (Recalled from ER Triage Doc. by RN): pt to ed c/o bilateral knee swelling, generalized weakness that started this morning. pt reports having similar episodes previously. History of Present Illness HPI narrative: This patient is a 52-year-old female who has a history of rheumatoid arthritis as well as DVT on Eliquis presenting to the emergency department for evaluation with concern for intermittent episodes of lightheadedness, leg cramping, and shooting electric pains across her chest and legs. She states that this has been intermittently going on for weeks to months. This feels the same as her prior DVT, which was unprovoked. She has been seen for this by her primary care provider, who put her on Lasix for lower extremity swelling, but she states that she feels that her symptoms of been brushed off and she has not been given an answer as to what causes these issues. 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 She felt like she was going to pass out with pains across her chest. She currently just feels weak and tired. She denies any fevers, chills, recent abdominal pain, vomiting, changes in bowel movements, or other concerns. Related Data Home Medications Medication Instructions Recorded Confirmed amitriptyline 25 mg tablet 25 mg PO DAILY Pain 03/22/19 01/07/22 methotrexate sodium (PF) 1 gram 1 gm IJ DAILY Supplement 03/22/19 01/07/22 solution for injection folic acid 1 mg tablet 5 mg PO DAILY Supplement 04/09/19 01/07/22 leflunomide 10 mg tablet 10 mg PO DAILY Rapid heart rate 09/20/20 01/07/22 prednisone 10 mg tablets in a dose 10 mg PO DAILY . 10/12/21 01/07/22 pack pregabalin 75 mg capsule 75 mg PO BID . 10/12/21 01/07/22 apixaban 5 mg tablet 5 mg PO BID BLOOD CLOTTING DISORDER 10/04/22 10/04/22 Previous Rx's Medication Instructions Recorded ibuprofen 600 mg tablet 600 mg PO Q6HP PRN Moderate Pain 09/19/20 #20 tabs methylprednisolone 4 mg tablets
[2023-05-13 14:41] LABS: Basophils % 0.4 % (0.1-2.0); Eosinophils # 0.3 K/mm3 (0.0-0.4); Eosinophils % 3.1 % (0.1-12.0); Hematocrit 41.9 % (37.0-47.0); Hemoglobin 13.6 g/dL (12.2-16.2); Lymphocytes # 1.9 K/mm3 (0.7-4.5); Lymphocytes % 17.1 % (10-50); Mean Corpuscular HGB Conc 32.6 g/dL (31.8-35.4); Mean Corpuscular Hemoglobin 27.9 pg (27.0-31.2); Mean Corpuscular Volume 85.7 fl (81-99); Mean Platelet Volume 8.4 fl (7.4-10.4); Monocytes # 1.1 K/mm3 (0.1-1.0); Monocytes % 9.7 % (1.7-9.3); Neutrophils # 7.6 K/mm3 (1.8-7.8); Neutrophils % 69.6 % (37.0-80.0); Platelet Count 323 K/mm3 (142-424); Red Blood Count 4.89 M/mm3 (4.20-5.40); Red Cell Distribution Width 14.6 % (11.5-17.5); White Blood Count 10.9 K/mm3 (4.8-10.8)
[2023-05-13 14:46] LABS: Alanine Aminotransferase 24 U/L (12-78); Albumin Level 3.9 g/dl (3.5-5.0); Albumin/Globulin Ratio 1.1 (1.1-1.8); Alkaline Phosphatase 83 U/L (38-126); Anion Gap 9.5 mEq/L (5-15); Aspartate Amino Transferase 32 U/L (14-36); Bilirubin,Total 0.4 mg/dl (0.2-1.3); Blood Urea Nitrogen 13 mg/dl (7-17); Calcium 8.9 mg/dl (8.4-10.2); Carbon Dioxide 31 mmol/L (22.0-30.0); Chloride 101 mmol/L (98-107); Creatine Kinase 42 U/L (30-135); Creatinine Clearance Estimated 81 mL/min (50-200); Estimated Glomerular Filt Rate 75 ml/min (>60); GFR (African American) 91 ML/MIN (>60); Globulin 3.5 g/dL (1.3-3.2); Glucose 98 mg/dl (74-100); Potassium 3.5 mmoL/L (3.5-5.1); Sodium 138 mmol/L (136-145); Total Protein,Serum 7.4 g/dl (6.3-8.2)
[2023-05-13 14:50] LABS: D-Dimer 2.19 ug/mL (0.0-0.5)
--- NOTE | 2023-05-13 14:52 | ECG_ITS ---
APPROVED REPORT Exam: Resting ECG HR:87 bpm ECG Measurements Heart Rate 87 AXES SD 126 P -3 QRSd 81 QRS 39 QT 367 T 7 QTc 411 Conclusion SINUS RHYTHM Normal ECG UNCONFIRMED REPORT Electronically signed by : Arben Klein MD 05/14/2023 17:34:18
--- NOTE | 2023-05-13 15:11 | CT_ITS ---
FINAL REPORT TECHNIQUE: Then section axial CT images of the chest were obtained with contrast. Three-D reformatted images were also obtained.This study was performed with techniques to keep radiation doses as low as reasonably achievable (ALARA). Individualized dose reduction techniques using automated exposure control or adjustment of mA and/or kV according to the patient's size were employed. CLINICAL HISTORY: chest pain, presyncope, h/o DVT COMPARISON: None FINDINGS: There is no evidence of pulmonary embolism. There is no evidence of thoracic aortic aneurysm or dissection. There is no evidence of mediastinal or hilar mass or adenopathy. There are multiple nonspecific right axillary nodes present, the largest measures up to 18 mm in size. There is a right middle lobe nodule identified, which measures 5 mm in diameter. No other masses or nodules are visualized. There is mild atelectasis versus scar at the lung bases. No localized inflammatory process is seen within the lungs. Limited images of the upper abdomen are unremarkable. IMPRESSION: No evidence of pulmonary embolus. Multiple right axillary nodes, the largest of which measures up to 18 mm in size. These are nonspecific, and may be reactive although neoplasm cannot be excluded. Would recommend follow-up CT or PET CT for further evaluation. There is a 5 mm right middle lobe nodule identified. Reviewed, Interpreted and Dictated by David Rodríguez III, MD Transcribed by Ingrid Rodriguez Authenticated and [facility]
--- NOTE | 2023-05-13 15:12 | CA_ITS ---
FINAL REPORT CLINICAL HISTORY: pain, swelling, h/o DVT, Patient takes Eliquis daily due to DVT history. fatigue, weakness FINDINGS: Color Doppler, duplex Doppler and compression sonography of the bilateral lower extremities was performed. There is no evidence of deep venous thrombosis from the level of the groin to the calf. The deep veins are patent and compressible. There is a 4.3 x 2.3 cm heterogeneous mass in the left popliteal fossa of uncertain etiology. Differential diagnosis would include a blood clot or neoplasm. IMPRESSION: No evidence of deep venous thrombosis bilateral lower extremities. Mass in the left popliteal fossa with differential diagnosis as above. Recommend follow-up ultrasound or MRI. Reviewed, Interpreted and Dictated by David Rodríguez III, MD Transcribed by Geetha Kearney Authenticated and [facility]
--- NOTE | 2023-05-13 15:15 | PC.NURSE ---
pt undressing and placing a gown on.
[2023-05-13 15:18] LABS: Thyroid Stimulating Hormone 1.47 uIU/mL (0.465-4.68)
[2023-05-13 16:00] LABS: Troponin I < 0.01 ng/ml (0.00-0.034)
[2023-05-13 17:40] VITALS: BP 130/83; PULSE 89; RESP 16; TEMP 36.8; O2SAT 97
== END 2023-05-13 17:44 | disposition home or self-care (01) ==
PROVIDERS: Emergency Medicine; Emergency Provider Emergency Medicine; PCP Family Medicine
DX: R22.42 Localized swelling, mass and lump, left lower limb (principal); R53.1 Weakness; R59.9 Enlarged lymph nodes, unspecified; M06.9 Rheumatoid arthritis, unspecified
CPT/HCPCS: 71275; 80053; 82550; 83735; 84436; 84443; 84484; 85025; 85378; 93005; 93970; 99285; Q9967

== ENCOUNTER 2024-01-03 15:24 | Emergency (ER) | payer OTHER, SELFPAY ==
--- NOTE | 2024-01-03 15:28 | PC.NURSE ---
Pt requested to go to [facility], however registration staff called to [facility] to see if they could see her and refused. Pt was changed to ER services. instrument mechanics supervisor notified.
--- NOTE | 2024-01-03 15:33 | PC.NURSE ---
Dr. Zambrano at bedside
--- NOTE | 2024-01-03 15:44 | CT_ITS ---
PROCEDURE INFORMATION: Exam: CT Cervical Spine Without Contrast Exam date and time: 01/03/2024 3:59 PM Age: 53 years old Clinical indication: Other: Tremor; Additional info: New onset tremor, h/o ra and autoimmunity TECHNIQUE: Imaging protocol: Computed tomography of the cervical spine without contrast. Radiation optimization: All CT scans at this facility use at least one of these dose optimization techniques: automated exposure control; mA and/or kV adjustment per patient size (includes targeted exams where dose is matched to clinical indication); or iterative reconstruction. COMPARISON: CT HEAD/BRAIN WO CON 01/03/2024 3:57 PM FINDINGS: Bones/joints: No acute fracture. Straightening of normal cervical lordosis. Otherwise, normal vertebral body alignment. Degenerative changes with multilevel disc space narrowing, [id number] at the mid/lower cervical spine, and multilevel uncovertebral hypertrophy and facet arthropathy. Small posterior osteophytes at C5-C6 and C6-C7. No severe spinal canal or osseous neural foraminal stenosis. Lungs: Lung apices are clear. Soft tissues: Unremarkable. IMPRESSION: Degenerative changes of the cervical spine with no CT evidence of acute abnormality.
--- NOTE | 2024-01-03 15:44 | CT_ITS ---
PROCEDURE INFORMATION: Exam: CT Head Without Contrast Exam date and time: 01/03/2024 3:57 PM Age: 53 years old Clinical indication: Other: Tremor; Additional info: New onset tremor, h/o ra and autoimmunity TECHNIQUE: Imaging protocol: Computed tomography of the head without contrast. Radiation optimization: All CT scans at this facility use at least one of these dose optimization techniques: automated exposure control; mA and/or kV adjustment per patient size (includes targeted exams where dose is matched to clinical indication); or iterative reconstruction. COMPARISON: No relevant prior studies available. FINDINGS: Brain: No acute intracranial hemorrhage. No evidence of large vessel infarct. No mass effect or midline shift. Nicole-white differentiation is preserved. Cerebral ventricles: Unremarkable. Basal cisterns are patent. Paranasal sinuses: Minimal mucosal thickening of the right sphenoid sinus. Included paranasal sinuses are otherwise unremarkable. No fluid levels. Mastoid air cells: Visualized mastoid air cells are unremarkable Orbital cavities: Visualized orbits are unremarkable. Bones/joints: No acute fracture. Soft tissues: Unremarkable. IMPRESSION: No CT evidence of acute intracranial abnormality.
[2024-01-03 15:47] VITALS: BP 141/99; PULSE 103; RESP 18; TEMP 36.9; O2SAT 97; BMI 25.6
--- NOTE | 2024-01-03 15:47 | HMH.EDGENADL ---
Discharge Plan Disposition Patient Disposition: Home, Self-Care Prescriptions Prescriptions: No Action leflunomide 10 mg tablet 10 mg PO DAILY azithromycin [Zithromax Z-Ty] 250 mg tablet See Rx Instructions PO .COMPLEX Qty: 6 0RF Rx Instructions: For 250 mg dose pack: take 500 mg today (day 1), then 250 mg for 4 days (days 2-5) PO ibuprofen 600 MG tablet 600 mg PO Q6HP PRN (Reason: Moderate Pain) Qty: 20 0RF pregabalin 75 MG capsule 75 mg PO BID prednisone 10 MG tablets,dose pack 10 mg PO DAILY amitriptyline 25 MG tablet 25 mg PO DAILY Patient Comments: TAKE 1 TABLET BY MOUTH EVERY DAY AT NIGHT methotrexate sodium (PF) 1 GM recon soln 1 gm IJ DAILY folic acid 1 MG tablet 5 mg PO DAILY methylprednisolone 4 mg Tablets,Dose Pack 4 mg PO DIRECTED Qty: 21 0RF apixaban 5 MG tablet 5 mg PO BID Rx Instructions: Please take 10 mg twice a day for 7 days then take 5 mg twice a day daily for the next 30 days Referrals Follow up/Referrals: Julisa Kerr [Primary Care Provider] - See instructions Activity Restrictions/Add. Instructions Additional Instructions/Restrictions: Talk to family doctor about follow-up with Dr. Rodriguez, our neurologist here at [facility]. Call your family doctor to establish care for this visit to the emergency department and schedule follow-up within 48 hours to ensure improvement. Clinical Impressions Clinical Impression: Tremor Discharge ED Provider: Romeo Zambrano General Adult HPI General Chief complaint: Neuro Symptoms/Deficit Stated complaint: random head bobbing Time Seen by Provider: 01/03/24 15:31 History of Present Illness HPI narrative: 52-year-old female history of RA on weekly injections, antiphospholipid syndrome on Eliquis presenting with random head bobbing. Happens randomly throughout the day, associated with position changes, no weakness, numbness, tingling, unilateral deficits, any other neurologic phenomenon. No chest pain, shortness of breath, or any other complaints. Nothing makes it better, nothing makes it worse, largely unable to reproduce, so showing video here in the emergency department. Appears to be head tremor. Please note that above description of symptoms, in this electronic medical record under categorization of recalled from ER triage doctor by RN are reflective of an initial nursing assessment, however, is not reflective of my full history and physical exam that was personally taken and clarified. Consequentially, this preceding description of symptoms, which may include the patient's categorized chief complaint in the EMR, do not reflect my personal clinical impression, and the ultimate description of history of present illness and patient stated complaints should be deferred to this section of the note. Unless stated otherwise or congruent with this section of the note, additional signs, symptoms, or incongruence should be interpreted as inaccurate with my clinical impression. Related Data Home Medications Medication Instructions Recorded Confirmed amitriptyline 25 mg tablet 25 mg PO DAILY Pain 03/22/19 01/07/22 methotrexate sodium (PF) 1 gram 1 gm IJ DAILY Supplement 03/22/19 01/07/22 solution for injection folic acid 1 mg tablet 5 mg PO DAILY Supplement 04/09/19 01/07/22 leflunomide 10 mg tablet 10 mg PO DAILY Rapid heart rate 09/20/20 01/07/22 prednisone 10 mg tablets in a dose 10 mg PO DAILY . 10/12/21 01/07/22 pack pregabalin 75 mg capsule 75 mg PO BID . 10/12/21 01/07/22 apixaban 5 mg tablet 5 mg PO BID BLOOD CLOTTING DISORDER 10/04/22 10/04/22 Previous Rx's Medication Instructions Recorded ibuprofen 600 mg tablet 600 mg PO Q6HP PRN Moderate Pain 09/19/20 #20 tabs methylprednisolone 4 mg tablets in 4 mg PO DIRECTED #21 tabs 07/15/22 a dose pack azithromycin 250 mg tablet See Rx Instructions PO .COMPLEX #6 08/16/22 (Zithromax Z-Ty) tabs Allergies Allergy/AdvReac Type Severity Reaction Status Date / Time abatacept [From Orencia] Allergy Verified 12/07/21 14:25 adalimumab [From Humira] Allergy Verified 12/07/21 14:25 celecoxib [From Celebrex] Allergy Verified 12/07/21 14:25 etanercept [From Enbrel] Allergy Verified 07/15/22 11:44 meloxicam [From Mobic] Allergy Verified 07/15/22 11:44 tocilizumab [From Actemra] Allergy Verified 12/07/21 14:25 tofacitinib Allergy Verified 07/15/22 11:44 [facility] Disclaimer: The information contained in this section may have been updated after the patient was seen, as this information can be updated by other users. 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 current occupational exposures/hazards: No caffeine: Yes ROS Obtained: Yes All systems reviewed & no additional complaints except as documented Physical Exam General General appearance: alert and in no apparent distress Head Head exam: atraumatic and normocephalic Eye Eye exam: Present normal appearance, PERRL and EOMI ENT ENT exam: Present mucous membranes moist Neck Neck exam: Present normal inspection, full ROM and trachea midline Respiratory Respiratory exam: Absent respiratory distress, wheezes, stridor, accessory muscle use or prolonged expiratory phase Cardiovascular Cardiovascular exam: Present normal rhythm Abdominal Exam Abdominal exam: Present soft; Absent distention, tenderness, guarding, rebound or rigidity Extremities Exam Extremities exam: Absent edema Neurological Exam Neurological exam: Present alert, oriented X3, CN II-XII intact and normal gait; Absent motor sensory deficit Skin Skin exam: Present warm and dry; Absent diaphoresis or erythema Medical Decision Making Medical Records Medical records reviewed: Yes I reviewed the patient's medical records. Baldo Inquiry Pt receiving controlled substance: No Baldo was queried for this patient: No Vital Signs: 01/03/24 15:47 01/03/24 16:12 Temperature 98.5 F Temperature Source Oral Pulse Rate 101 H Pulse Rate [Left] 103 H Respiratory Rate 18 18 Blood Pressure 129/91 H Blood Pressure [Left Arm] 141/99 H Blood Pressure Mean 103 Blood Pressure Mean [Left Arm] 113 02 Sat by Pulse Oximetry 97 97 Oxygen Delivery Method Room Air Orders (Tests/Meds): ORDERS Category Date Time Status CT cervical spine wo con Stat Cat Scan 01/03/24 15:[address] head/brain wo con Stat Cat Scan 01/03/24 15:44 Completed Medical Decision Narrative: 52-year-old female history of RA on weekly injections, antiphospholipid syndrome on Eliquis presenting with random head bobbing. Happens randomly throughout the day, associated with position changes, no weakness, numbness, tingling, unilateral deficits, any other neurologic phenomenon. No chest pain, shortness of breath, or any other complaints. Nothing makes it better, nothing makes it worse, largely unable to reproduce, so showing video here in the emergency department. Appears to be head tremor. History obtained with patient. On arrival, patient hemodynamically stable, neurologically intact, not actively having tremor and unable to reproduce tremor. Video with quick, 1 or 2 seconds head tremor vertically. No horizontal head movements. CT head and C-spine ordered out of abundance of caution for potential atlantoaxial instability in the setting of RA. This was negative for any acute cervical spine abnormality on independent interpretation. Independent interpretation of CT head without acute frontal lobe mass, no acute, intervenable intra cranial process. Because patient at baseline without signs or symptoms of clinical decompensation, deemed appropriate for discharge. Results were relayed to patient who voiced understanding and were agreeable to outpatient management and follow up. I discussed my clinical impression with patient and answered all questions. At this time, the evidence for any other entities in the differential is insufficient to warrant any further testing or ED observation. This was explained as well. Advisory was given that persistent or worsening symptoms require further evaluation. I confirmed the understanding of this discussion. Critical Care Critical Care Time Critical Care Time: No
[2024-01-03 16:12] VITALS: BP 129/91; PULSE 101; RESP 18; O2SAT 97
--- NOTE | 2024-01-03 17:00 | PC.NURSE ---
[facility] for [facility] for Vascular [facility]
[2024-01-03 17:01] VITALS: BP 110/88; PULSE 98; RESP 18; TEMP 36.8; O2SAT 95
== END 2024-01-03 17:04 | disposition home or self-care (01) ==
LOC: UTC 15:29 → ER 15:29 → UTC 15:29 → ER 15:29
PROVIDERS: Emergency Provider Emergency Medicine; PCP Family Medicine
DX: R25.1 Tremor, unspecified (principal); M06.9 Rheumatoid arthritis, unspecified; D68.61 Antiphospholipid syndrome; Z79.01 Long term (current) use of anticoagulants
CPT/HCPCS: 70450; 72125; 99285

== ENCOUNTER 2024-08-22 20:03 | Emergency (ER) | payer OTHER, SELFPAY ==
[2024-08-22 20:05] VITALS: BP 124/67; PULSE 111; RESP 16; TEMP 36.9; O2SAT 97; BMI 25.9
--- OUTSIDE RECORDS SUMMARY | 2024-08-22 21:34 | XMS_ITS | Encounter Summary ---
Author Organization [place] [address] Care Team Providers Care Universal Banker Name Role Phone Julisa Kerr MD Primary Care Provider [phone] Jessica Cortes MD Unavailable [phone] Susana Garay MD Unavailable [phone] Reason for Visit * Oncology Medication Prior Authorization (Routine) - Authorized Specialty Diagnoses / Procedures Referred By Contac t Referred To Contact Oncology Diagnoses Rheumatoid arthritis involving multiple sites with positive rheumatoid factor (HCC) Procedures PA INJ., RITUXIMAB, 10 MG PA INJ TRUXIMA 10 MG Jessica Cortes MD [address] [address] Phone: tel: fax: [address] [place] [address] Phone: tel: fax: Referral ID Status Reason Start Date Expiration Date V isits Requested Visits Authorized [id number] Authorized 07/23/2024 07/23/2025 1 99 Encounter Details Date Type Department Care Team (Latest Contact Info) Description 08/17/2024 8:00 AM EST - 08/17/2024 11:59 PM EST Hospital Encounter [address] [address] [place] [address] Rheumatoid arthritis involving multiple sites with positive rheumatoid factor (HCC) (Primary Dx); Tuberculosis screening Discharge Disposition: Home or Self Care Social History Tobacco Use Types Packs/Day Years Used Date Smoking Tobacco: Never Passive Smoke Exposure: Never Smokeless Tobacco: Never Alcohol Use Standard Drinks/Week Comments Yes 0 (1 standard drink = 0.6 oz pur e alcohol) occasional PHQ-2 Answer Date Recorded PHQ-2 Total Score 0 12/08/2023 Sexually Active Control Partners Comments Yes Comments No Sex and Gender Information Value Date Recorded Sex Assigned at Not on file Legal Sex Female 5:21 PM EDT Gender Identity Not on file Sexual Orientation Not on file documented as of this encounter Last Filed Vital Signs Vital Sign Reading Time Taken Comments Blood Pressure 122/75 08/17/2024 4:27 PM EST Pulse 103 08/17/2024 4:27 PM EST Temperature 36.4 ??C (97.5 ??F) 08/17/2024 4:27 PM ES T Respiratory Rate 18 08/17/2024 4:27 PM EST Oxygen Saturation 96% 08/17/2024 4:27 PM EST Inhaled Oxygen Concentration - - Weight 64.5 kg (142 lb 3.2 oz) 08/17/2024 8:28 A M EST Height - - Body Mass Index 25.19 07/19/2024 12:56 PM EDT documented in this encounter Functional Status * Is the person deaf or does he/she have serious difficulty hearing? Answer Date of Assessment Author No 12/08/2023 3:24 PM EDT Luciano Kenney RMA * Is the person blind or does he/she have serious difficulty seeing even when wearing glasses? Answer Date of Assessment Author No 12/08/2023 3:24 PM EDT Luciano Kenney RMA * Does this person have serious difficulty walking or climbing stairs? Answer Date of Assessment Author No 12/08/2023 3:24 PM EDT Luciano Kenney RMA * Does this person have difficulty dressing or bathing? Answer Date of Assessment Author No 12/08/2023 3:24 PM EDT Luciano Kenney RMA * Because of a physical, mental or emotional condition, does this person have difficulty doing errands alone such as visiting a doctor's office or shopping? Answer Date of Assessment Author No 12/08/2023 3:24 PM EDT Luciano Kenney RMA documented as of this encounter Mental Status * Because of a physical, mental or emotional condition, does this person have serious difficulty concentrating, remembering or making decisions? Answer Entry Date Author No 12/08/2023 3:24 PM EDT Luciano Kenney RMA documented in this encounter Medications at Time of Discharge apixaban (ELIQUIS) 5 mg Oral TabletIndications :Antiphospholipid syndrome (HCC),History of DVT in adulthood Take 1 Tablet by mouth 2 times daily. 60 Tablet 11 05/03/2024 azithromycin (ZITHROMAX) 250 mg Oral TabletIndications :Acute bacterial sinusitis Take 2 tablets (500 mg) on Day 1, followed by 1 tablet (250 mg) once daily on Days 2 through 5. 6 Tablet 07/29/2024 cyanocobalamin 1,000 mcg/mL Inj SolutionIndicatio ns:Vitamin B 12 deficiency INJECT 1ML INTO MUSCLE EVERY MONTH 1 mL 11 02/18/2024 gabapentin (NEURONTIN) 600 mg Oral TabletIndications :Rheumatoid arthritis involving multiple sites with positive rheumatoid factor (HCC),Acute bilateral low back pain without sciatica Take 1 Tablet by mouth 2 times daily. 60 Tablet 08/16/2024 hydrOXYzine (ATARAX) 25 mg Oral TabletIndications :Anxiety Take 1 Tablet by mouth 3 times daily as needed. 90 Tablet 2 05/03/2024 ibuprofen (ADVIL;MOTRIN) 600 mg Oral TabletIndications :Synovitis of right ankle Take 1 Tablet by mouth 3 times daily. 42 Tablet 05/25/2024 leflunomide (ARAVA) 20 mg Oral TabletIndications :Rheumatoid arthritis involving multiple sites with positive rheumatoid factor (HCC) TAKE 1 TABLET BY MOUTH EVERY DAY 30 Tablet 1 08/10/2024 linaCLOtide (LINZESS) 290 mcg Oral CapsuleIndication s:Irritable bowel syndrome with constipation and diarrhea Take 1 Capsule by mouth before breakfast. 90 Capsule 3 05/03/2024 methotrexate sodium 25 mg/mL Inj SolutionIndicatio ns:R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 10 mL 06/15/2024 predniSONE (DELTASONE) 5 mg Oral TabletIndications :Rheumatoid arthritis involving multiple sites with positive rheumatoid factor (HCC) Take 1 Tablet by mouth daily. 30 Tablet 1 07/19/2024 documented as of this encounter Discharge Disposition Disposition Code Departure Means Destination Home or Self Care documented in this encounter Progress Notes * Rosibel Musa RN - 08/17/2024 8:00 AM EST Patient came in this morning and explained that she was feeling nervous about todays infusion because she tends to react to most medications. We called pharmacy and had a reaction kit set out at the nurses station prior to starting infusion just in case it was needed. Patient was tolerating medicine well with no complaints. When rate was increased over longterm through to 125mL/hr at 1115 patientshad no complaints and vitals were stable. Around 11:20 patients started discussing with daughter she felt a little more discomfort than usual but wasn't sure if it was her RA or infusion related. Thedaughter asked me my thoughts so I stopped the infusion at 1120 and started IV fluids @999. After being flushed and then running maintenance fluids patient stated she was feeling better. Patient thenfurther explained her original symptoms stating she felt she was developing a body ache and that her joints were stiffening up more than usual. She said she was able to bend her joints more than whenshe started the infusion. I contacted Dr. Cortes's office and spoke to her ARASH Leal. Melstated that the was not in office today and that she would contact her and call us back with the desired course of action. Patient is still running on maintetnance fluids until the doctors officecalls back and vitals are stable. Patient stated she feels okay right now. * Rosibel Musa RN - 08/17/2024 8:[address] Cortes's office called back and I spoke with ARASH Leal. Mel stated the wants us to take the patients rate back down to 50 mL/hr and to not let her rate exceed 100 mL/hr. I asked if the would like her to have ant medications before restarting the rituxan and was told no. We will continue to check patients for symptoms and inform the DrPeggy of anymore/new symptoms. documented in this encounter Miscellaneous Notes * Patient Instructions - Lilly Mora RN - 08/17/2024 8:00 AM EST [facility] Discharge Instructions Thank you for entrusting the [facility] with your care. We hope you are pleased with your outpatient care and services. Because we are most concerned with your health, we suggest you carefully read the following discharge instructions: Your Discharge Instructions: MEDICATION INSTRUCTIONS: Treatment received today: Tylenol, Solumedrol, benadryl, Truxima Reviewed medications administered today and possible side effects Dizziness and sleepiness are possible side effects of pain medication. When taking pain medications, do not drink alcohol or drive. ACTIVITY INSTRUCTIONS: Rest today, increase activity as tolerated. DIET INSTRUCTIONS: as tolerated FOLLOW-UP CARE: Call your doctor for a follow-up appointment: Notify physician for complications such as: Fever over 101*, Rash, Hives, difficulty breathing, unrelieved nausea or pain, redness or swelling in one limb greater than the other, constipation, diarrhea, bleeding Please contact your physician if you have problems related to your procedure or if symptoms persistor worsen. If physician is unavailable, go to the Emergency Room. Additional Instructions: Our hours of operation are Friday - Friday 8:00 AM - 4:30 PM. [facility] [address] [place] [address] [phone] [place] [address] documented in this encounter Plan of Treatment Upcoming Encounters Date Type Department Care Team (Late st Contact Info) Description 08/31/2024 8:30 AM EST Appointment [address] [address] [place] [address] 10/25/2024 10:45 AM EST Office Visit [facility] [address] [place] [address] Jessica Cortes MD [address] [place] [address] 01/25/2025 9:00 AM EDT Appointment [address] [place] [address] 05/09/2025 11:00 AM EDT Appointment [address] [address] [place] [address] 05/09/2025 11:15 AM EDT [address]ointment [address] [place] [address] Susana Garay MD [address] [place] [id number] documented as of this encounter Goals Goal Patient Goal Type Associated Problems Recent Progress Patient-Stated? 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, RN documented as of this encounter Procedures Procedure Name Priority Date/Time Associated Diagnosis Comments QUANTIFERON TB GOLD Routine 08/17/2024 8 :32 AM EST Tuberculosis screening SEDIMENTATION RATE AUTOMATED SAMMY 08/17/2024 8:32 AM EST Rheumatoid arthritis involving multiple sites with positive rheumatoid factor (HCC) CBC WITH DIFF STAT 08/17/2024 8:32 AM EST Rheumatoid arthritis involving multiple sites with positive rheumatoid factor (HCC) C-REACTIVE PROTEIN SAMMY 08/17/2024 8: 32 AM EST Rheumatoid arthritis involving multiple sites with positive rheumatoid factor (HCC) COMPREHENSIVE METABOLIC PANEL SAMMY 08/17/2024 8:32 AM EST Rheumatoid arthritis involving multiple sites with positive rheumatoid factor (HCC) documented in this encounter Results * QUANTIFERON TB GOLD (08/17/2024 8:32 AM EST) [facility] Quantiferon-TB Gold in Tube Negative Negative 08/18/2024 8:03 PM EST [facility] Quantiferon Mitogen minus NIL 9.9834 IU/mL 08/18/2024 8:03 PM EST [facility] Quantiferon NIL 0.0166 IU/mL 8:03 PM EST [facility] QUANTIFERON TB1 MINUS NIL 0.0108 IU/mL 08/18/2024 8:03 PM EST [facility] [employer] [facility] QUANTIFERON TB2 MINUS NIL 0.0092 IU/mL 08/18/2024 8:03 PM EST [facility] [employer] [facility] Blood VENOUS BLOOD / Unknown Venipuncture / Unknown 08/17/2024 8:32 AM EST 08/17/2024 8:36 AM EST Narrative [facility] [employer] [facility] - 08/18/2024 8:03 PM EST Interferon gamma release is measured for patient specimens from each of four tubes. A qualitative result of Negative, Positive or Indeterminate is based on the interpretation of four values. The Nil value adjusts for background, heterophile antibody effects or nonspecific reactivity in the patient specimen. The Mitogen- Nil value serves as the positive control for the specimen and indicates successful lymphocyte activity. The TB1-Nil and TB2-Nil represent lymphocyte reactivity that has been stimulated by two distinct TB antigens and if either is reactive it is considered a positive result. Diagnosing or excluding tuberculosis disease, and assessing the probability of latent tuberculosis infection (LTBI), requires a combination of epidemiological, medical, and diagnostic findings that should be taken into account when interpreting QuantiFERON TB Gold results. us Jessica Cortes MD IMMUNOLOGY ORDERABLES Fin al Result Performing Organization Address [facility] Co de Phone Number [facility] [employer] [address] , [place] [address] * (ABNORMAL) C-REACTIVE PROTEIN (08/17/2024 8:32 AM EST) CRP 30.72(H) <=5.00 mg/L 08/17/2024 3:41 PM EST [facility] [facility] Blood VENOUS BLOOD / Unknown Venipuncture / Unknown 08/17/2024 8:32 AM EST 08/17/2024 8:36 AM EST Jessica Cortes MD CHEMISTRY ORDERABLES Siobhan l Result Performing Organization Address [facility] de Phone Number [facility] [employer] [address] , [place] [address] * (ABNORMAL) SEDIMENTATION RATE AUTOMATED (08/17/2024 8:32 AM EST) Pathologist [facility] Sed Rate 40(H) 0 - 30 mm/hr 08/17/2024 8:45 AM EST [facility] Blood VENOUS BLOOD / Unknown Venipuncture / Unknown 08/17/2024 8:32 AM EST 08/17/2024 8:36 AM EST Jessica Cortes MD HEMATOLOGY ORDERABLES Fin al Result Performing Organization Address [facility] Co de Phone Number [facility] [address] [place] [address] * (ABNORMAL) CBC WITH DIFF (08/17/2024 8:32 AM EST) WBC 10.8(H) 3.7 - 10.3 x10(3)/mc L 08/17/2024 8:40 AM EST [facility] RBC 5.07 3.90 - 5.20 x10(6)/mc L 08/17/2024 8:40 AM EST [facility] Hgb 12.8 11.2 - 15.7 g/dL 08/17/2024 8:40 AM [facility] Hct 42.3 34.0 - 45.0 % 08/17/2024 8:40 AM [facility] MCV 83.4 80.0 - 100.0 fL 08/17/2024 8:40 AM [facility] MCH 25.2(L) 26.0 - 34.0 pg 08/17/2024 8:40 AM [facility] MCHC 30.3(L) 30.7 - 35.5 g/dL 08/17/2024 8:40 AM [facility] RDW 15.3(H) <=14.9 % 08/17/2024 8:40 AM [facility] Platelet 474(H) 155 - 369 x10(3)/mc L 08/17/2024 8:40 AM [facility] MPV 9.3 8.8 - 12.5 fL 08/17/2024 8:40 AM [facility] Neut # Prelim 5.9 1.6 - 6.1 x10(3)/mc L 08/17/2024 8:40 AM [facility] Comment:Preliminary automate d absolute neutrophil count. Value may change if manual differential is indicated. Neut Percent 54.4 % 08/17/2024 8:40 AM [facility] Comment:Neutrophils equals s egs plus bands Imm Gran% 0.8 % 08/17/2024 8:40 AM [facility] Comment:Automated count of m etamyelocytes, myelocytes and promyelocytes. Lymph Percent 33.9 % 08/17/2024 8:40 AM [facility] Power Percent 7.1 % 08/17/2024 8:40 AM [facility] Eos Percent 3.3 % 08/17/2024 8:40 AM [facility] Baso Percent 0.5 % 08/17/2024 8:40 AM [facility] Neut # 5.9 1.6 - 6.1 x10(3)/mc L 08/17/2024 8:40 AM [facility] Comment:Neutrophils equals s egs plus bands IMMGRAN# 0.1 0.0 - 0.1 x10(3)/mc L 08/17/2024 8:40 AM [facility] Comment:Automated count of m etamyelocytes, myelocytes and promyelocytes. An absolute IG <0.1 is reported as 0.0. Lymph # 3.7 1.2 - 3.9 x10(3)/mc L 08/17/2024 8:40 AM EST [facility] Power # 0.8 0.3 - 0.9 x10(3)/mc L 08/17/2024 8:40 AM EST [facility] Eos# 0.4 0.0 - 0.5 x10(3)/mc L 08/17/2024 8:40 AM EST [facility] Baso # 0.1 0.0 - 0.1 x10(3)/mc L 08/17/2024 8:40 AM [facility] Blood VENOUS BLOOD / Unknown Venipuncture / Unknown 08/17/2024 8:32 AM EST 08/17/2024 8:36 AM EST us Jessica Cortes MD HEMATOLOGY ORDERABLES Fin al Result [facility] [address] [place] [address] * (ABNORMAL) COMPREHENSIVE METABOLIC PANEL (08/17/2024 8:32 AM EST) Sodium 137 136 - 145 mmol/L 08/17/2024 8:56 AM [facility] Potassium 3.3(L) 3.5 - 5.0 mmol/L 08/17/2024 8:56 AM [facility] Chloride 100 98 - 107 mmol/L 08/17/2024 8:56 AM [facility] Total CO2 24 22 - 29 mmol/L 08/17/2024 8:56 AM [facility] Anion Gap 13 7 - 16 mmol/L 08/17/2024 8:56 AM [facility] Calcium 9.1 8.6 - 10.4 mg/dL 08/17/2024 8:56 AM [facility] Glucose Lvl 125(H) 70 - 99 mg/dL 08/17/2024 8:56 AM [facility] BUN 9 6 - 20 mg/dL 08/17/2024 8:56 AM [facility] Creatinine 0.72 0.51 - 1.30 mg/dL 08/17/2024 8:56 AM [facility] Albumin 4.3 3.5 - 5.2 gm/dL 08/17/2024 8:56 AM [facility] Total Protein 7.8 6.4 - 8.3 gm/dL 08/17/2024 8:56 AM [facility] Bili Total 0.2 0.2 - 1.3 mg/dL 08/17/2024 8:56 AM [facility] ALT 17 <=41 U/L 08/17/2024 8:56 AM [facility] AST 19 <=40 U/L 08/17/2024 8:56 AM [facility] Alk Phos 90 36 - 123 U/L 08/17/2024 8:56 AM [facility] eGFR (CKD-EPIcr 2020) 99 >=60 mL/min/1.7 3 m2 08/17/2024 8:56 AM [facility] Comment:Estimated GFR was ca lculated using the CKD-EPIcr (2020) equation refit without race. The equation is recommended by the [employer] - [place] [employer] Task Force. Blood VENOUS BLOOD / Unknown Venipuncture / Unknown 08/17/2024 8:32 AM EST 08/17/2024 8:36 AM EST us Jessica Cortes MD CHEMISTRY ORDERABLES Siobhan l Result [facility] [address] [place] [address] documented in this encounter Visit Diagnoses Diagnosis 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 Tuberculosis screening Screening examination for pulmonary tuberculosis documented in this encounter Administered Medications Inactive Administered Medications - up to 1 most recent administrations Medication Order MAR Action Action Date Dose Rate Site 0.9 % NaCl infusion Intravenous, at 30 mL/hr, CONTINUOUS, Starting on Fri08/17/24 at 0830, Until Fri08/18/24 at 0829, For millinery salesperson during 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 Rheumatoid arthritis involving multiple sites with positive rheumatoid factor (HCC)Indications:Rheumatoid arthritis involving multiple sites with positive rheumatoid factor (HCC) IV Restarted 08/17/2024 4:29 PM EST 30 mL/hr acetaminophen (TYLENOL) tablet 650 mg 650 mg, Oral, ONCE, 1 dose, On Fri08/17/24 at 0845, Maximum adult dose of acetaminophen is 4000 mg from all sources in 24 hours., Dx: 1. Rheumatoid arthritis involving multiple sites with positive rheumatoid factor (HCC)Indications:Rheumatoid arthritis involving multiple sites with positive rheumatoid factor (HCC) Given 08/17/2024 8:48 AM EST 650 mg diphenhydrAMINE (BENADRYL) injection 25 mg 25 mg, Intravenous, ONCE, 1 dose, On Fri08/17/24 at 0845, Dx: 1. Rheumatoid arthritis involving multiple sites with positive rheumatoid factor (HCC)Indications:Rheumatoid arthritis involving multiple sites with positive rheumatoid factor (HCC) Given 08/17/2024 8:50 AM EST 25 mg methylPREDNISolone sodium succinate (Solu-MEDROL) injection 100 mg 100 mg, Intravenous, ONCE, 1 dose, On Fri08/17/24 at 0845, Dx: 1. Rheumatoid arthritis involving multiple sites with positive rheumatoid factor (HCC)Indications:Rheumatoid arthritis involving multiple sites with positive rheumatoid factor (HCC) Given 08/17/2024 8:49 AM EST 100 mg riTUXimab-abbs (TRUXIMA) 1,000 mg in sodium chloride 0.9 % 453 mL chemo infusion 1,000 mg, Intravenous, ONCE, 1 dose, On Fri08/17/24 at 0845, Administer over 2 Hours, Initial infusion (each 4 to 6 month infusion starts here): Start rate of 50 mg/hr; if there is no reaction, increase the rate by 50 mg/hr increments every 30 minutes, to a maximum rate of 400 mg/hr Total Volume = 500 mL, Dx: 1. Rheumatoid arthritis involving multiple sites with positive rheumatoid factor (HCC)Indications:Rheumatoid arthritis involving multiple sites with positive rheumatoid factor (HCC) Rate/Dose Verify 08/17/2024 4:05 PM EST 100 mL/hr sodium chloride 0.9% syringe Intravenous, PRN, Starting on Fri08/17/24 at 0823, Until [place] 08/19/24 at 0404, Line Care, Flush after IV medication, Dx: 1. Rheumatoid arthritis involving multiple sites with positive rheumatoid factor (HCC)Indications:Rheumatoid arthritis involving multiple sites with positive rheumatoid factor (HCC) Given 08/17/2024 8:51 AM EST 20 mL documented in this encounter Care Teams [employer] Banker Relationship Specialty Start Date End Date Julisa Kerr MD [address] [id number] PCP - General 02/22/11 Jessica Cortes MD [address] [facility] [address] [place] [address] Internal Medicine-Rheumatology 04/26/16 Susana Garay MD [address] [facility] [place] [address] Medical Oncologist Internal Medicine-Hematology and Oncology 10/14/22 documented as of this encounter
--- OUTSIDE RECORDS SUMMARY | 2024-08-22 21:34 | XMS_ITS | Encounter Summary ---
Author [place] [address] Care Team Providers Care Customer Support Engineer Name Role Phone Julisa Kerr MD Primary Care Provider [phone] Jessica Carter MD Unavailable [phone] Susana Garay MD Unavailable [phone] Reason for Visit * Reason Onset Date Comments Medication Management 08/13/2024 Encounter Details Date Type Department Care Team (Late st Contact Info) Description 08/13/2024 Telephone [facility] [address] [address] Jessica Carter MD [address] [address] Medication Management Social History Tobacco Use Types Packs/Day Years [...] as of this encounter Functional Status * Is the [...] Luciano Kenney RMA documented in this encounter Miscellaneous Notes * Telephone Encounter - Meenakshi Solo MA - 08/16/2024 7:49 AM EST Spoke with Nathan at [facility], we can draw TB Gold tomorrow 08/17 at infusion. Just FYI * Telephone Encounter - Meenakshi Solo MA - 08/13/2024 9:50 AM EST I tried to call the patient to let her know to get TB Gold done before 08/17 I was not able to leave a voicemail. I tried to call patients spouse listed on HIPAA, I left a voicemail. * Addendum Note - Jessica Carter MD - 08/13/2024 9:44 AM ESTAddended by: JESSICA CARTER on: 08/13/2024 09:44 AM Modules accepted: Orders * Telephone Encounter - Jessica Carter MD - 08/13/2024 9:43 AM EST OK to proceed with the infusion. Please recheck TB gold at the infusion. * Telephone Encounter - Meenakshi Solo MA - 08/13/2024 8:54 AM EST Patient is scheduled for Truxima ordered by Dr. Carter on 08/17/2024. I noticed patient did Hepatitis B labs on 08/04/2024 and TB Gold labs on 04/27/2024. It looks like patients TB Gold was Indeterminate and both Hepatitis B Core AB Total and Hepatitis B surface antigen were both non-reactive. Please let me know if it is okay to move forward with Truxima infusion on 08/17/2024. Thank you documented in this encounter Plan of Treatment Upcoming Encounters Date Type Department Care Team (Late st Contact Info) Description 08/31/2024 8:30 AM EST Appointment [place] [address] [place] [address] 10/25/2024 10:45 AM EST Office Visit [facility] [address] [place] [address] Jessica Carter MD [address] [facility] [address] [place] [address] 01/25/2025 9:00 AM EDT Appointment [place] [address] [place] [address] 05/09/2025 11:00 AM EDT Appointment [facility] [address] [place] [address] 05/09/2025 11:15 AM EDT Appointment [facility] [place] [address] Susana Garay MD [address] [place] [address] [place] [address] documented as of this encounter Goals Goal Patient Goal Type Associated Problems Recent Progress Patient-Stated? Author Maintain a healthy diet, exercise regularly and maintain an ideal body weight General Porsche Ashley RN documented as of this encounter Results * QUANTIFERON TB GOLD (08/17/2024 8:32 AM EST) [facility] Quantiferon-TB Gold in Tube Negative Negative 08/18/2024 8:03 PM EST [facility] Quantiferon Mitogen minus NIL 9.9834 IU/mL 08/18/2024 8:03 PM EST [facility] Quantiferon NIL 0.0166 IU/mL 8:03 PM EST [facility] QUANTIFERON TB1 MINUS NIL 0.0108 IU/mL 08/18/2024 8:03 PM EST [facility] QUANTIFERON TB2 MINUS NIL 0.0092 IU/mL 08/18/2024 8:03 PM EST [facility] Blood VENOUS BLOOD / Unknown Venipuncture / Unknown 08/17/2024 8:32 AM EST 08/17/2024 8:36 AM EST Narrative [facility] - 08/18/2024 8:03 PM EST Interferon gamma [...] interpreting QuantiFERON TB Gold results. us Jessica Carter MD IMMUNOLOGY ORDERABLES Fin al Result [facility] [address] [facility] , [place] [address] documented in this encounter Visit Diagnoses Diagnosis Tuberculosis screening- Primary Screening examination for pulmonary tuberculosis documented in this encounter Care Teams Customer Support Engineer Relationship Specialty Start Date End Date Julisa Kerr MD [address] [place] [address] PCP - General 02/22/11 Jessica Carter MD [address] [place] [address] [address] [place] [address] Internal Medicine-Rheumatology 04/26/16 Susana Garay MD [address] [facility] [place] [address] Medical Oncologist Internal Medicine-Hematology and Oncology 10/14/22 documented as of this encounter
--- OUTSIDE RECORDS SUMMARY | 2024-08-22 21:34 | XMS_ITS | Encounter Summary ---
Author Organization [place] [address] Care Team Providers Care Slip Bridge Operator Name Role Phone Julisa Kerr MD Primary Care Provider [phone] Jessica Cortes MD Unavailable [phone] Susana Garay MD Unavailable [phone] Reason for Visit * Reason Onset Date Comments Medication Refill 08/14/2024 Encounter Details Date Type Department Care Team (Late st Contact Info) Description 08/14/2024 Refill [facility] [address] [place] [id number] Julisa Kerr MD [address] [place] [address] Medication Refill Social History Tobacco Use Types Packs/Day Years [...] Assessment Author No 12/08/2023 3:24 PM EDT Kenney JARROD Wolf * Does this person have difficulty dressing or bathing? 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 60 Tablet 08/16/2024 documented in this encounter Miscellaneous Notes * Telephone Encounter - Dania Gutierrez MA - 08/16/2024 7:48 AM EST Last Refill 06/15/24 [place]ENT[place] 05/03/24 documented in this encounter Plan of Treatment Upcoming Encounters Date Type Department Care Team (Late st Contact Info) Description 08/31/2024 8:30 AM EST Appointment [facility] [address] [place] [address] 10/25/2024 10:45 AM EST Office Visit [facility] [address] [facility] [address] [place] [address] Jessica Cortes MD [address] [address] 01/25/2025 9:00 AM EDT Appointment [place] [address] [place] [address] 05/09/2025 11:00 AM EDT Appointment [place] [address] [place] [address] 05/09/2025 11:15 AM EDT [address]ointment [address] [place] [address] Susana Garay MD [address] [place] [address] documented as of this encounter Goals Goal Patient Goal Type Associated Problems Recent Progress Patient-Stated? 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, RN documented as of this encounter Visit Diagnoses Diagnosis Rheumatoid arthritis involving multiple sites with positive rheumatoid factor (HCC) Acute bilateral low back pain without sciatica documented in this encounter Discontinued Medications Medication Sig Discontinue Reason Start Date End Da te gabapentin (NEURONTIN) 600 mg Oral TabletIndications:Rheuma toid arthritis involving multiple sites with positive rheumatoid factor (HCC),Acute bilateral low back pain without sciatica Take 1 Tablet by mouth 2 times daily. Reorder 06/15/2024 08/14/2024 documented as of this encounter Care Teams Slip Bridge Operator Relationship Specialty Start Date End Date Julisa Kerr MD [address] [place] [address] PCP - General 02/22/11 Jessica Cortes MD [address] [address] Internal Medicine-Rheumatology 04/26/16 Susana Garay MD [address] [facility] [address] [place], [place] [id number] Medical Oncologist Internal Medicine-Hematology and Oncology 10/14/22 documented as of this encounter
--- OUTSIDE RECORDS SUMMARY | 2024-08-22 21:34 | XMS_ITS | Referral Summary ---
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 [address] Rheumatoid arthritis involving multiple sites with positive rheumatoid factor (HCC) (Primary Dx); Tuberculosis screening Discharge Disposition: Home or Self Care 08/14/2024 Refill [facility] [address] [place] [address] Julisa Kerr MD Medication Refill 08/14/2024 Refill [facility] [address] [place] [address] Julisa Kerr MD Medication Refill 08/13/2024 Telephone [address] [place] [address] Jessica Cotres MD Medication Management 08/10/2024 Refill [facility] [address] [place] [address] Jessica Cortes MD Medication Refill 08/10/2024 Specialty Pharmacy [facility] [address] [place] [address] Dilcia Vazquez [facility] Rheumatology Management ([facility]) 08/08/2024 Refill [facility] [place] [address] Jessica Cortes MD Medication Refill 08/04/2024 11:52 AM EST - 08/04/2024 11:59 PM EST Hospital Encounter [facility] [address] [place] [address] Rheumatoid arthritis involving multiple sites with positive rheumatoid factor (HCC); Therapeutic drug monitoring Discharge Disposition: Home or Self Care 07/29/2024 11:30 AM EDT Telemedicine [facility] [address] [place] [address] Julisa Kerr MD History of cold sores (Primary Dx); Acute bacterial sinusitis 07/28/2024 Travel 07/22/2024 Telephone [facility] [place] [address] Jessica Cortes MD Medication Management 07/19/2024 12:45 PM EDT Office Visit [facility] [address] [place] [id number] Jessica Cortes MD Rheumatoid arthritis involving multiple sites with positive rheumatoid factor (HCC) (Primary Dx); Raynaud's phenomenon without gangrene; Positive BRET (antinuclear antibody); Sicca syndrome (HCC); Neck pain; Age-related osteoporosis without current pathological fracture; Postmenopausal state; Primary osteoarthritis involving multiple joints; Primary osteoarthritis of both hips; Antiphospholipid syndrome (HCC); Immunocompromised patient (HCC); Therapeutic drug monitoring; Tuberculosis screening 07/16/2024 Specialty Pharmacy [facility] [address] [place] [address] Mikaela Forbes CPhT Pharmacy Rheumatology Management ([facility]) 06/15/2024 Refill [facility] [address] [place] [address] Jhon Peña APRN Medication Refill 06/14/2024 Refill [facility] [address] [place] [address] Jessica Cortes MD Medication Refill 06/14/2024 10:55 AM EDT - 06/14/2024 11:59 PM EDT Hospital Encounter [facility] [address] [facility] [place] [address] Rheumatoid arthritis involving multiple sites with positive rheumatoid factor ([facility]); Therapeutic drug monitoring Discharge Disposition: Home or Self Care 05/25/2024 11:15 AM EDT Office Visit [facility] [address] [place] [address] Issa Barnard MD Synovitis of right ankle (Primary Dx) from Last 3 Months Allergies Active Allergy Reactions Criticality Noted Date Comments Abatacept Other (See Comments) 12/07/2021 Cefdinir Other (See Comments) Low 06/16/2023 Bad abdominal cramping Celecoxib Other (See Comments) 12/07/2021 Etanercept Itching Low 09/20/2019 Adalimumab Itching Low 09/20/2019 Infliximab Other (See Comments) Low 08/19/2023 Pustule pimples itching Meloxicam Hives Low 04/11/2011 Abatacept (With Maltose) Swelling,Other (See Comments) High 11/22/2019 Facial tingling/ numbness Tocilizumab Other (See Comments) 12/07/2021 Tofacitinib Itching Low 09/20/2019 Medications cyanocobalamin 1,000 mcg/mL Inj SolutionIndicat ions:Vitamin B 12 deficiency INJECT 1ML INTO MUSCLE EVERY MONTH 1 mL 11 02/18/20 24 Active apixaban (ELIQUIS) 5 mg Oral TabletIndicatio ns:Antiphosphol ipid syndrome (HCC),History of DVT in adulthood Take 1 Tablet by mouth 2 times daily. 60 Tablet 11 05/03/20 24 Active hydrOXYzine (ATARAX) 25 mg Oral TabletIndicatio ns:Anxiety Take 1 Tablet by mouth 3 times daily as needed. 90 Tablet 2 05/03/20 24 Active linaCLOtide (LINZESS) 290 mcg Oral CapsuleIndicati ons:Irritable bowel syndrome with constipation and diarrhea Take 1 Capsule by mouth before breakfast. 90 Capsule 3 05/03/20 24 Active ibuprofen (ADVIL;MOTRIN) 600 mg Oral TabletIndicatio ns:Synovitis of right ankle Take 1 Tablet by mouth 3 times daily. 42 Tablet 05/25/20 24 Active methotrexate sodium 25 mg/mL Inj SolutionIndicat ions:R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 10 mL 06/15/20 24 Active predniSONE (DELTASONE) 5 mg Oral TabletIndicatio ns:Rheumatoid arthritis involving multiple sites with positive rheumatoid factor (HCC) Take 1 Tablet by mouth daily. 30 Tablet 1 07/19/20 24 Active azithromycin (ZITHROMAX) 250 mg Oral TabletIndicatio ns:Acute bacterial sinusitis Take 2 tablets (500 mg) on Day 1, followed by 1 tablet (250 mg) once daily on Days 2 through 5. 6 Tablet 07/29/20 24 Active leflunomide (ARAVA) 20 mg Oral TabletIndicatio ns:Rheumatoid arthritis involving multiple sites with positive rheumatoid factor (HCC) TAKE 1 TABLET BY MOUTH EVERY DAY 30 Tablet 1 08/10/20 24 Active gabapentin (NEURONTIN) 600 mg Oral TabletIndicatio ns:Rheumatoid arthritis involving multiple sites with positive rheumatoid factor (HCC),Acute bilateral low back pain without sciatica Take 1 Tablet by mouth 2 times daily. 60 Tablet 08/16/20 24 Active leflunomide (ARAVA) 20 mg Oral TabletIndicatio ns:Rheumatoid arthritis involving multiple sites with positive rheumatoid factor (HCC) TAKE 1 TABLET BY MOUTH EVERY DAY 30 Tablet 1 06/15/20 24 2023 Discontinued valACYclovir (VALTREX) 1 gram Oral TabletIndicatio ns:History of cold sores Take 2 Tablets by mouth 2 times daily for 2 days. For cold sore flare 20 Tablet 3 07/29/20 24 2023 Active Problems Patient Care Coordination No te Formatting of this note migh t be different from the original. Care gap audit completed by Genesis Angel on 10/05/2020. Problem Noted Date Diagnosed Date Age-related osteoporosis wit hout current pathological fracture 01/09/2024 Primary osteoarthritis of left hip 12/29/2023 Right leg DVT 12/08/2023 Degenerative joint disease of cervical spine 07/2024 Antiphospholipid syndrome 07/23/2022 Positive BRET (antinuclear antibody) 05/06/2018 Neck pain 05/06/2018 Vitamin B 12 deficiency 12/24/2017 Immunocompromised patient 10/06/2017 Osteopenia 12/13/2016 Rheumatoid arthritis involvi ng multiple sites with positive rheumatoid factor 04/26/2016 Raynaud's phenomenon 04/22/2016 PRAVEEN (stress urinary incontinence, female) 2013 Resolved Problems Problem Noted Date Diagnosed Date Resolved Date Rheumatoid arthritis 12/02/2013 016 Immunizations Name Administration Dates Next Due DTaP, Unspecified Formulation 08/29/1974 ,08/29/1973,09/29/1972,01/27,1970,1970 Influenza Vaccine Quadrivalent 07/01/2017 Influenza Vaccine Quadrivalent PF 06/19/2018 Influenza Vaccine, Unspecifi ed Formulation 07/16/2019,06/19/2018 Influenza, Injectable, MDCK, PF, Quadrivalent 07/28/2023,07/01/2022,07/14/2019 Measles 04/02/1972 Mumps 11/27/1972 PPD Test 05/26/2018, 7,09/18/2015,07/21,05/13/2013 Pneumococcal Conjugate Vacci ne 13 Valent 12/13/2016 Pneumococcal Polysaccharide 23 Valent 07/01/2022 ,03/17/2017 Polio, Unspecified Formulation 4,08/29/1973,03/29/1973,09/29,02/27/1971 Rubella 05/12/1972 Td, Unspecified Formulation 06/09/1985 Tdap 07/01/2022 Zoster Recombinant 04/30/2023,02/21/2023 Social History Tobacco Use Types Packs/Day Years Used Date Smoking Tobacco: Never Passive Smoke Exposure: Never Smokeless Tobacco: Never Tobacco Cessation:Counseling Given: Not Answered Alcohol Use Standard Drinks/Week Comments Yes 0 (1 standard drink = 0.6 oz pur e alcohol) occasional PHQ-2 Answer Date Recorded PHQ-2 Total Score 0 12/08/2023 Sexually Active Control Partners Comments Yes Comments No Sex and Gender Information Value Date Recorded Sex Assigned at Not on file Legal Sex Female 5:21 PM EDT Gender Identity Not on file Sexual Orientation Not on file Last Filed Vital Signs Vital Sign Reading [...] oz) 08/17/2024 8:28 A M EST Height 160 cm (5' 3 ) 07/19/2024 12:56 PM EDT Body Mass Index 25.19 07/19/2024 12:56 PM EDT Functional Status * Is the person deaf [...] No 12/08/2023 3:24 PM EDT Luciano Kenney JARROD Mental Status * Because of a physical, mental or emotional condition, does this person have serious difficulty concentrating, remembering or making decisions? Answer Entry Date Author No 12/08/2023 3:24 PM EDT Luciano Kenney RMA Plan of Treatment Upcoming Encounters Date Type Department Care Team (Late st Contact Info) Description 08/31/2024 8:30 AM EST [address] [place] [address] 10/25/2024 10:45 AM EST Office [facility] [address] [place] [address] Jessica Cortes MD [address] [place] [address] 01/25/2025 9:00 AM EDT Appointment [address] [place] [address] 05/09/2025 11:00 AM EDT Appointment [address] [place] [address] 05/09/2025 11:15 AM EDT Appointment [address] [place] [address] Susana Garay MD [address] [place] [id number] Goals Goal Patient Goal Type Associated Problems Recent Progress Patient-Stated? 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 Procedure Name Priority Date/Time Associated Diagnosis Comments QUANTIFERON TB GOLD Routine 08/17/2024 8 :32 AM EST Tuberculosis screening C-REACTIVE PROTEIN SAMMY 08/17/2024 8: 32 AM EST Rheumatoid arthritis involving multiple sites with positive rheumatoid factor (HCC) SEDIMENTATION RATE AUTOMATED SAMMY 08/17/2024 8:32 AM EST Rheumatoid arthritis involving multiple sites with positive rheumatoid factor (HCC) CBC WITH DIFF STAT 08/17/2024 8:32 AM EST Rheumatoid arthritis involving multiple sites with positive rheumatoid factor (HCC) COMPREHENSIVE METABOLIC PANEL SAMMY 08/17/2024 8:32 AM EST Rheumatoid arthritis involving multiple sites with positive rheumatoid factor (HCC) HCV ANTIBODY SCREEN W/ REFLEX Routine 08/04/2024 11:57 AM EST Rheumatoid arthritis involving multiple sites with positive rheumatoid factor (HCC) Therapeutic drug monitoring HEPATITIS B SURFACE ANTIGEN Routine 08/04/2024 11:57 AM EST Rheumatoid arthritis involving multiple sites with positive rheumatoid factor (HCC) Therapeutic drug monitoring HEPATITIS B CORE AB TOTAL Routine 08/04/2024 11:57 AM EST Rheumatoid arthritis involving multiple sites with positive rheumatoid factor (HCC) Therapeutic drug monitoring SEDIMENTATION RATE AUTOMATED Routine 08/04/2024 11:57 AM EST Rheumatoid arthritis involving multiple sites with positive rheumatoid factor (HCC) C-REACTIVE PROTEIN Routine 08/04/2024 11 :57 AM EST Rheumatoid arthritis involving multiple sites with positive rheumatoid factor (HCC) CBC WITH DIFF Routine 08/04/2024 11:57 AM EST Rheumatoid arthritis involving multiple sites with positive rheumatoid factor (HCC) Therapeutic drug monitoring COMPREHENSIVE METABOLIC PANEL Routine 08/04/2024 11:57 AM EST Rheumatoid arthritis involving multiple sites with positive rheumatoid factor (HCC) Therapeutic drug monitoring SEDIMENTATION RATE AUTOMATED Routine 06/14/2024 10:58 AM EDT Rheumatoid arthritis involving multiple sites with positive rheumatoid factor (HCC) C-REACTIVE PROTEIN Routine 06/14/2024 10 :58 AM EDT Rheumatoid arthritis involving multiple sites with positive rheumatoid factor (HCC) CBC WITH DIFF Routine 06/14/2024 10:58 AM EDT Rheumatoid arthritis involving multiple sites with positive rheumatoid factor (HCC) Therapeutic drug monitoring COMPREHENSIVE METABOLIC PANEL Routine 06/14/2024 10:58 AM EDT Rheumatoid arthritis involving multiple sites with positive rheumatoid factor (HCC) Therapeutic drug monitoring [place] ARTHROCENTESIS ASPIR&/INJ INTERM JT/BURS W/O US Routine 05/25/2024 11:15 AM EDT Synovitis of right ankle MM MAMMO DIGITAL MCKAY SCREEN BILAT Routine 02/11/2024 10:55 AM EDT Encounter for screening mammogram for breast cancer COLOGUARD Routine 11/27/2020 7:50 PM EST Screening for colon cancer from Last 3 Months or Most Recently Relevant to Health Maintenance Results * QUANTIFERON TB GOLD (08/17/2024 8:32 AM EST) [facility] Quantiferon-TB Gold in Tube Negative Negative 08/18/2024 8:03 PM EST [facility] Quantiferon Mitogen minus NIL 9.9834 IU/mL 08/18/2024 8:03 PM EST [facility] Quantiferon NIL 0.0166 IU/mL 8:03 PM EST [facility] QUANTIFERON TB1 MINUS NIL 0.0108 IU/mL 08/18/2024 8:03 PM EST [facility] QUANTIFERON TB2 MINUS NIL 0.0092 IU/mL 08/18/2024 8:03 PM EST [facility] Blood VENOUS BLOOD / Unknown Venipuncture / Unknown 08/17/2024 8:32 AM EST 08/17/2024 8:36 AM EST Narrative [facility] - 08/18/2024 8:03 PM EST Interferon [...] account when interpreting QuantiFERON TB Gold results. Jessica Cortes MD IMMUNOLOGY ORDERABLES Fin al Result Performing Organization Address City/[facility]/ZIP Co de Phone Number [facility] [address] [place] [address], [facility] [place] [address] * (ABNORMAL) SEDIMENTATION RATE AUTOMATED (08/17/2024 8:32 AM EST) Only the most recent of3 resultswithin the time period is included. Sed Rate 40(H) 0 - 30 mm/hr 08/17/2024 8:45 AM EST [facility] Blood VENOUS BLOOD / Unknown Venipuncture / Unknown 08/17/2024 8:32 AM EST 08/17/2024 8:36 AM EST Jessica Cortes MD HEMATOLOGY ORDERABLES Fin al Result Performing Organization Address City/[facility] Co de Phone Number [facility] [address] [place] [address] * (ABNORMAL) CBC WITH DIFF (08/17/2024 8:32 AM EST) Only the most recent of3 resultswithin the time period is included. WBC 10.8(H) 3.7 - 10.3 x10(3)/mc L 08/17/2024 8:40 AM EST [facility] RBC 5.07 3.90 - 5.20 x10(6)/mc L 08/17/2024 8:40 AM EST [facility] Hgb 12.8 11.2 - 15.7 g/dL 08/17/2024 8:40 AM EST [facility] Hct 42.3 34.0 - 45.0 % 08/17/2024 8:40 AM [facility] MCV 83.4 80.0 - 100.0 fL 08/17/2024 8:40 AM [facility] MCH 25.2(L) 26.0 - 34.0 pg 08/17/2024 8:40 AM [facility] MCHC 30.3(L) 30.7 - 35.5 g/dL 08/17/2024 8:40 AM [facility] RDW 15.3(H) <=14.9 % 08/17/2024 8:40 AM [facility] Platelet 474(H) 155 - 369 x10(3)/mc L 08/17/2024 8:40 AM [facility] MPV 9.3 8.8 - 12.5 fL 08/17/2024 8:40 AM [facility] Neut # Prelim 5.9 1.6 - 6.1 x10(3)/mc L 08/17/2024 8:40 AM [facility] Comment:Preliminary automate d absolute neutrophil count. Value may change if manual differential is indicated. Neut Percent 54.4 % 08/17/2024 8:40 AM [facility] Comment:Neutrophils equals s egs plus bands Imm Gran% 0.8 % 08/17/2024 8:40 AM [facility] Comment:Automated count of m etamyelocytes, myelocytes and promyelocytes. Lymph Percent 33.9 % 08/17/2024 8:40 AM [facility] Buchanan Percent 7.1 % 08/17/2024 8:40 AM [facility] Eos Percent 3.3 % 08/17/2024 8:40 AM [facility] Baso Percent 0.5 % 08/17/2024 8:40 AM [facility] Neut # 5.9 1.6 - 6.1 x10(3)/mc L 08/17/2024 8:40 AM [employer] [facility] Comment:Neutrophils equals s egs plus bands IMMGRAN# 0.1 0.0 - 0.1 x10(3)/mc L 08/17/2024 8:40 AM [employer] [facility] Comment:Automated count of m etamyelocytes, myelocytes and promyelocytes. An absolute IG <0.1 is reported as 0.0. Lymph # 3.7 1.2 - 3.9 x10(3)/mc L 08/17/2024 8:40 AM EST [facility] Buchanan # 0.8 0.3 - 0.9 x10(3)/mc L 08/17/2024 8:40 AM EST [facility] Eos# 0.4 0.0 - 0.5 x10(3)/mc L 08/17/2024 8:40 AM EST [facility] Baso # 0.1 0.0 - 0.1 x10(3)/mc L 08/17/2024 8:40 AM EST [facility] Blood VENOUS BLOOD / Unknown Venipuncture / Unknown 08/17/2024 8:32 AM EST 08/17/2024 8:36 AM EST Jessica Cortes MD HEMATOLOGY ORDERABLES Fin al Result Performing Organization Address City/[facility] Co de Phone Number [facility] [address] [place] [address] * (ABNORMAL) C-REACTIVE PROTEIN (08/17/2024 8:32 AM EST) Only the most recent of3 resultswithin the time period is included. [facility] CRP 30.72(H) <=5.00 mg/L 08/17/2024 3:41 PM EST [employer] Blood VENOUS BLOOD / Unknown Venipuncture / Unknown 08/17/2024 8:32 AM EST 08/17/2024 8:36 AM EST Jessica Cortes MD CHEMISTRY ORDERABLES Siobhan l Result Performing Organization Address City/[facility]/ZIP Co de Phone Number [employer] [address] [place] [address] , [facility] [place] [address] * (ABNORMAL) COMPREHENSIVE METABOLIC PANEL (08/17/2024 8:32 AM EST) Only the most recent of3 resultswithin the time period is included. Pathologist [facility] Sodium 137 136 - 145 mmol/L 08/17/2024 8:56 AM [facility] Potassium 3.3(L) 3.5 - 5.0 mmol/L 08/17/2024 8:56 AM [facility] Chloride 100 98 - 107 mmol/L 08/17/2024 8:56 AM [facility] Total CO2 24 22 - 29 mmol/L 08/17/2024 8:56 AM [facility] Anion Gap 13 7 - 16 mmol/L 08/17/2024 8:56 AM [facility] Calcium 9.1 8.6 - 10.4 mg/dL 08/17/2024 8:56 AM [facility] Glucose Lvl 125(H) 70 - 99 mg/dL 08/17/2024 8:56 AM [facility] BUN 9 6 - 20 mg/dL 08/17/2024 8:56 AM [facility] Creatinine 0.72 0.51 - 1.30 mg/dL 08/17/2024 8:56 AM [facility] Albumin 4.3 3.5 - 5.2 gm/dL 08/17/2024 8:56 AM [facility] Total Protein 7.8 6.4 - 8.3 gm/dL 08/17/2024 8:56 AM [facility] Bili Total 0.2 0.2 - 1.3 mg/dL 08/17/2024 8:56 AM [facility] ALT 17 <=41 U/L 08/17/2024 8:56 AM [facility] AST 19 <=40 U/L 08/17/2024 8:56 AM [facility] Alk Phos 90 36 - 123 U/L 08/17/2024 8:56 AM [facility] eGFR (CKD-EPIcr 2020) 99 >=60 mL/min/1.7 3 m2 08/17/2024 8:56 AM [facility] Comment:Estimated GFR was ca lculated using the CKD-EPIcr (2020) equation refit without race. The equation is recommended by the National Kidney Foundation - [place] [employer]ph[employer] Task Force. Blood VENOUS BLOOD / Unknown Venipuncture / Unknown 08/17/2024 8:32 AM EST 08/17/2024 8:36 AM EST us Jessica Cortes MD CHEMISTRY ORDERABLES Siobhan l Result [address] [address] * HEPATITIS B CORE AB TOTAL (08/04/2024 11:57 AM EST) Hep B Core Total Non-Reacti ve Non-Reacti ve 08/04/2024 9:22 PM EST [facility] Blood VENOUS BLOOD / Unknown Venipuncture / Unknown 08/04/2024 11:57 AM EST 08/04/2024 11:57 AM EST us Jessica Cortes MD IMMUNOLOGY ORDERABLES Fin al Result Performing Organization Address City/[facility]/ZIP Co de Phone Number [employer] [address] [place] [address] , [place] [address] * HCV ANTIBODY SCREEN W/ REFLEX (08/04/2024 11:57 AM EST) Hep C Ab Non-Reactiv e Non-Reacti ve 08/04/2024 8:49 PM EST [facility] Blood VENOUS BLOOD / Unknown Venipuncture / Unknown 08/04/2024 11:57 AM EST 08/04/2024 11:57 AM EST us Jessica Cortes MD HEMATOLOGY ORDERABLES Fin al Result [employer] [address] [place] [address] , [place] [address] * HEPATITIS B SURFACE ANTIGEN (08/04/2024 11:57 AM EST) Hep Bs Ag Non-Reactiv e Non-Reacti ve 08/04/2024 9:22 PM EST [facility] Blood VENOUS BLOOD / Unknown Venipuncture / Unknown 08/04/2024 11:57 AM EST 08/04/2024 11:57 AM EST Jessica Cortes MD CHEMISTRY ORDERABLES Siobhan l Result [employer] [address] [place] [address], [place] [address] * [place] ARTHROCENTESIS ASPIR&/INJ INTERM JT/BURS W/O US (05/25/2024 11:15 AM EDT) Narrative [facility] - 05/25/2024 11:15 AM EDT Rdaha Valero, RT ? 05/26/2024 ??7:28 AM Medium Joint Injection/Arthrocentesis: R ankle on 05/25/2024 11:15 AM Indications: joint swelling Details: 25 G needle, medial approach Medications: 1 mL BUPivacaine HCl 0.25 % (2.5 mg/mL); 2 mL betamethasone acet-betamethasone sodium phos 6 mg/mL Aspirate: yellow Outcome: tolerated well, no immediate complications Procedure, treatment alternatives, risks and benefits explained, specific risks discussed. Consent was given by the patient. Patient was prepped and draped in the usual sterile fashion. Issa Barnard MD PROCEDURE/MINOR SURGICAL ORD ERABLES Final Result Performing Organization Address [facility] Co de Phone Number [facility] * MM MAMMO DIGITAL MCKAY SCREEN BILAT (02/11/2024 10:55 AM EDT) Anatomical Region Laterality Modality Breast Bilateral Mammography 02/11/2024 12:1 7 PM EDT Impressions 02/11/2024 12:17 PM EDT Negative ??([id number]) ~ RECOMMENDATION: Routine screening mammogram in 1 year. ~ DISCLAIMER * Any patient with a palpable abnormality, unexplained by breast imaging, should be managed on clinical basis by the attending physician. * Breast imaging has a false negative rate of 15%. * The patient was notified by mail of the results of this examination. *The patient's information was entered into a reminder system with a target due date for the next mammogram, in accordance with the [employer] and the Society of Breast Imaging recommendations. Narrative 02/11/2024 12:17 PM EDT Procedure:MM MAMMO DIGITAL MCKAY SCREEN BILAT ~ Reason for exam: screening, asymptomatic. Z12.31-Encounter for screening mammogram for malignant neoplasm of [id number] ~ MM MAMMO DIGITAL MCKAY SCREEN BILAT Bilateral CC and MLO view(s) were taken. The breast tissue is heterogeneously dense. ??This may lower the sensitivity of mammography. Prior study comparison: None available No mammographic evidence of malignancy. ~ Procedure Note Pablo Disla MD - 02/11/2024 Procedure:MM MAMMO DIGITAL MCKAY SCREEN BILAT ~ Reason for exam: screening, asymptomatic. Z12.31-Encounter for screening mammogram for malignant neoplasm of [id number] ~ MM MAMMO DIGITAL MCKAY SCREEN BILAT Bilateral CC and MLO view(s) were taken. The breast tissue is heterogeneously dense. This may lower thesensitivity of mammography. Prior study comparison: None available No mammographic evidence of malignancy. ~ IMPRESSION: Negative ([id number]) ~ RECOMMENDATION: Routine screening mammogram in 1 year. ~ DISCLAIMER * Any patient with a palpable abnormality, unexplained by breast imaging, should be managed on clinical basis by the attending physician. * Breast imaging has a false negative rate of 15%. * The patient was notified by mail of the results of this examination. *The patient's information was entered into a reminder system with atarget due date for the next mammogram, in accordance with the [employer] and the Society of Breast Imaging recommendations. Julisa Kerr MD [facility] ORDERABLES Fin al Result * COLOGUARD (11/27/2020 7:50 PM EST) COLOGUAVANESSA CLINICAL REPORT Negative Not Applicable [facility] Comment: A negative result indicates a low likelihood that a colorectal cancer (CRC) or an advanced adenoma (adenomatous polyps with more advanced pre-malignant features) is present. The chance that a person with a negative Cologuard test has a colorectal cancer is less than 1 in 1500 (negative predictive value >99.9%) or has an advanced adenoma is less than 5.3% (negative predictive value 94.7%). These data are based on a prospective cross-sectional screening study of 10,000 individuals at average risk for colorectal cancer who were screened with both Cologuard and colonoscopy. (Davi Cox al, N Engl J Med 2014;370(14):1547-7873) The normal value (reference range) for this assay is negative. COLOGUARD RE-SCREENING RECOMMENDATION: Periodic routine colorectal cancer screening is an important part of preventive healthcare for asymptomatic persons at average risk for colorectal cancer. Following a negative Cologuard result, the [employer] and U.S. Multi-Society Task Force screening guidelines recommend a Cologuard re-screening interval of 3 years. References: [employer] (ACS). Colorectal cancer prevention and early detection. [place], [place]: [employer]; [updated 2015Jan 20]. https://www.cancer.org/cancer/qsnzn-gyewnx-rcwigw/kmillavry-zkzqvjwdo-xhuwqxi/ac s-rec ommendations.html. Accessed May 29, 2018; Luis Antonio DK, Jerry HORN, Federico JUNG, Colorectal Cancer Screening: Recommendations for Physicians and Patients from the U.S. Multi-Society Task Force on Colorectal Cancer Screening, Am J Gastroenterology 2017; 112:6606-2400. TEST TYPE: Composite algorithmic analysis of stool DNA-biomarkers with hemoglobin immunoassay. ??Quantitative values of individual biomarkers are not reportable and are not associated with individual biomarker result reference ranges. PRECAUTIONS AND LIMITATIONS: Cologuard is intended for colorectal cancer screening of adults of either sex, 45 years or older, who are at average-risk for colorectal cancer (CRC). Cologuard has been approved for use by the U.S. FDA. Cologuard may produce a false negative or false positive result. A negative Cologuard test result does not guarantee the absence of CRC or advanced adenoma (pre-cancer). Patients with a negative Cologuard test result should be advised to continue participating in a colorectal cancer screening program. The screening interval for Cologuard is currently recommended at an interval of every 3 years by the [employer] and U.S. Multi-Society Task Force. A false positive result occurs when Cologuard produces a positive result, even though a colonoscopy may not find colorectal cancer or precancerous polyps. The performance of Cologuard has been established in a cross sectional study (i.e., single point in time) of average-risk adults aged 50-84. Cologuard performance in patients ages 45 to 49 years was estimated by sub-group analysis of near-age groups. Cologuard performance data in a 10,000 patient pivotal study using colonoscopy as the reference method can be accessed at the following location: www.[employer].ELIKE/results. Additional description of the Cologuard test process, warnings and precautions can be found at www.cologuardtest.com. Rx only. Stool specimen (specimen) 11/27/2020 7:50 PM EST 11/29/2020 2:22 PM EST Julisa Kerr MD [facility] - ORDERABLES Fin al Result [employer] [facility], [facility] [address] [employer] [place] [address] from Last 3 Months or Most Recently Relevant to Health Maintenance Insurance [address] [address] [address] [address] [employer] [facility] [place] [address] Care Teams Cable Armorer Operator Relationship Specialty Start Date End Date Julisa Kerr MD [address] [place] [id number] PCP - General 02/22/11 Jessica Cortes MD [address] [place] [address] [address] [place] [address] Internal Medicine-Rheumatology 04/26/16 Susana Garay MD [address] [place] [address] [place] [address] Medical Oncologist Internal Medicine-Hematology and Oncology 10/14/22
--- OUTSIDE RECORDS SUMMARY | 2024-08-22 21:34 | XMS_ITS | Encounter Summary ---
Author Organization [place] [address] Care Team Providers Care Bridge Ironworker Helper Name Role Phone Julisa Kerr MD Primary Care Provider [phone] Jessica Cortes MD Unavailable [phone] Susana Garay MD Unavailable [phone] Reason for Visit * Reason Comments Pharmacy Rheumatology Management [facility] Encounter Details Date Type Department Care Team (Latest Contact Info) Description 08/10/2024 Specialty Pharmacy [facility] [address] [phone] Dilcia Vazquez CPhT Pharmacy Rheumatology Management (Sim[facility]) Social History Tobacco Use Types Packs/Day Years [...] Luciano Kenney RMA documented in this encounter Progress Notes * Dilcia Vazquez CPhT - 08/10/2024 9:20 AM EST [facility] Refill Request Prescription for Simponi is out of refills. Will send a request to the provider and contact patientto coordinate refill once response is received. * Sara Rodriguez CPhT - 08/10/2024 9:20 AM EST [facility] Refill request denied, Simponi changed to Rituximab infusion Disenrolling from services documented in this encounter Plan of Treatment Upcoming Encounters Date Type Department Care Team (Late st Contact Info) Description 08/31/2024 8:30 AM EST Appointment [facility] [address] [place] [address] 10/25/2024 10:45 AM EST Office Visit [facility] [address] [facility] [address] [place] [id number] Jessica Cortes MD [address] [address] 01/25/2025 9:00 AM EDT [address]ointment [address] [place] [address] 05/09/2025 11:00 AM EDT Appointment [address] [place] [address] 05/09/2025 11:15 AM EDT Appointment [address] [place] [address] Susana Garay MD [address] [place] [address] [place], [place] [id number] documented as of this encounter Goals Goal Patient Goal Type Associated Problems Recent Progress Patient-Stated? 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, RN documented as of this encounter Visit Diagnoses Not on filedocumented in this encounter Care Teams Bridge Ironworker Helper Relationship Specialty Start Date End Date Julisa Kerr MD [address] [place] [id number] PCP - General 02/22/11 Jessica Cortes MD [address] [place] [address] Internal Medicine-Rheumatology 04/26/16 Susana Garay MD [address] [place] [address] [place] [address] Medical Oncologist Internal Medicine-Hematology and Oncology 10/14/22 documented as of this encounter
--- OUTSIDE RECORDS SUMMARY | 2024-08-22 21:34 | XMS_ITS | Clinical Summary ---
Author Organization [facility]AGUE[facility]ISH[facility]UNARENDRA ABDI OD Address [facility] [place] [address] Phone Care Team Providers Care Biomass Boiler Operator Name Role Phone Julisa Kerr MD Primary Care Provider [phone] Jessica Cortes MD Unavailable [phone] Susana Garay MD Unavailable [phone] Allergies Active Allergy Reactions Criticality Noted Date [...] Date Resolved Date Rheumatoid arthritis 12/02/2013 016 Encounters Date Type Department Care Team Description 08/17/2024 8:00 AM EST - 08/17/2024 11:59 PM EST Hospital Encounter [address] [place] [address] Rheumatoid arthritis involving multiple sites with positive rheumatoid factor (HCC) (Primary Dx); Tuberculosis screening Discharge Disposition: Home or Self Care 08/17/2024 Telephone [facility] [address] [place] [address] Jessica Cortes MD Infusion 08/14/2024 Refill [facility] [address] [place] [address] Julisa Kerr MD Medication Refill 08/14/2024 Refill [facility] [address] [place] [address] Julisa Kerr MD Medication Refill 08/13/[address] [place] [address] Jessica Cortes MD Medication Management 08/10/2024 Refill [facility] [address] [place] [address] Jessica Cortes MD Medication Refill 08/10/2024 Specialty Pharmacy [facility] [address] [place] [address] Dilcia Vazquez CPhT Pharmacy Rheumatology Management ([facility]) 08/08/2024 Refill [facility] [address] [place] [address] Jessica Cortes MD Medication Refill 08/04/2024 11:52 AM EST - 08/04/2024 11:59 PM EST Hospital Encounter [facility] [address] [facility] [place] [address] Rheumatoid arthritis involving multiple sites with positive rheumatoid factor (HCC); Therapeutic drug monitoring Discharge Disposition: Home or Self Care 07/29/2024 11:30 AM EDT Telemedicine [facility] [address] [place] [address] Julisa Kerr MD History of cold sores (Primary Dx); Acute bacterial sinusitis 07/28/2024 Travel 07/22/2024 Telephone [facility] [place] [address] Jessica Cortes MD Medication Management 07/19/2024 12:45 PM EDT Office Visit [facility] [address] [place] [address] Jessica Cortes MD Rheumatoid arthritis involving multiple [...] Specialty Pharmacy [facility] [address] [place] [address] Mikaela Forbes CPhT Pharmacy Rheumatology Management ([facility]) 06/15/2024 Refill [facility] [address] [place] [address] Jhon Peña APRN Medication Refill 06/14/2024 10:55 AM EDT - 06/14/2024 11:59 PM EDT Hospital Encounter [facility] [address] [facility] [place] [address] Rheumatoid arthritis involving multiple sites with positive rheumatoid factor (HCC); Therapeutic drug monitoring Discharge Disposition: Home or Self Care 06/14/2024 Refill [facility] [address] [place] [address] Jessica Cortes MD Medication Refill 05/25/2024 11:15 AM EDT Office Visit [facility] [address] [place] [address] Issa Barnard MD Synovitis of right ankle (Primary Dx) from Last 3 Months Immunizations Name Administration Dates Next Due DTaP, [...] Formulation 06/09/1985 Tdap 07/01/2022 Zoster Recombinant 04/30/2023,02/21/2023 Surgical History Surgery Date Site/Laterality Comments HYSTEROSCOPY BARBIE AND BSO 09/29/2000 IR 2 LEVEL TRANSFORAMINAL EP IDURAL INJ CERVICAL SPINE 06/29/2021 - 07/29/2021 TOTAL KNEE ARTHROPLASTY 08/21/2023 Right TOTAL HIP ARTHROPLASTY 01/30/2024 Left Medical History Medical History Date Comments Arthritis DVT (deep venous thrombosis) (HCC) 06/08/2022 Right Antiphospholipid syndrome (HCC) Family History Medical History Relation Name Comments Arthritis Father Arthritis Paternal Grandmother Relation Name Status Comments Father Maternal Grandfather Heart d isease Paternal Grandmother Social History Tobacco Use Types Packs/Day Years [...] on file Sexual Orientation Not on file Obstetrics History Para Term AB IAB SAB Ectopic Multiple Livin g Live Births 3 3 3 Date Outcome GA Total Labor Labor/2nd/3rd Weight Sex Type Anes PTL Itzel A1 A5 Name Clin Para Para Para Last Filed Vital Signs Vital Sign Reading [...] Mass Index 25.19 07/19/2024 12:56 PM EDT Plan of Treatment Upcoming Encounters Date Type Department Care Team (Late st Contact Info) Description 08/31/2024 8:[address] [facility] [place] [address] [place] [address] 10/25/2024 10:45 AM EST Office Visit [facility] [address] [place] [address] Jessica Cortes MD [address] [facility] Building [address] [place] [address] 01/25/2025 9:00 AM EDT Appointment [place] [address] [place] [address] 05/09/2025 11:00 AM EDT Appointment [place] [address] [place] [address] 05/09/2025 11:15 AM EDT Appointment [address] [place] [address] Susana Garay MD [address] [place] [address] [place] [address] Health Maintenance Due Date Last Done Comments Hepatitis B Vaccine (1 of 3 - 19+ 3-dose series) 1989 Colonoscopy 2015 FIT 2015 Sigmoidoscopy 2015 Virtual Colonography 2015 Cologuard 11/28/2023 11/27/2020 Colon Cancer Screening 11/28/2023 COVID-19 Vaccine ( season) 2024 Influenza Vaccine (#1) 2024 3, 07/01/2022, 06/20/2020, Additional history exists Annual Wellness Exam 05/03/2025 05/03/2024, 07/20/20 14 Breast Cancer Screening 02/10/2026 02/11/20 24, 07/20/2014 (Declined) DTaP/TDaP/Td (7 - Td or Tdap) 07/01/2032 07/01/2022, 06/09/1985, 08/29/1974, Additional history exists Pneumococcal Vaccine 0-64 Aged Out 2021, 03/17/2017, 12/13/2016 No longer eligible based on patient's age to complete this topic Zoster Completed 04/30/2023, 02/21/2023 Goals Goal Patient Goal Type Associated Problems Recent Progress Patient-Stated? Author Maintain a healthy diet, exercise regularly and maintain an ideal body weight Porsche Diaz RN Procedures Procedure Name Priority Date/Time Associated Diagnosis [...] positive rheumatoid factor (HCC) Therapeutic drug monitoring [place] ARTHROCENTESIS ASPIR&/INJ INTERM JT/BURS W/O US Routine 05/25/2024 11:15 AM EDT Synovitis of right ankle MM MAMMO DIGITAL MCKAY SCREEN BILAT Routine 02/11/2024 10:55 AM EDT Encounter for screening mammogram for breast cancer COLOGUARD Routine 11/27/2020 7:50 PM EST Screening for colon cancer from Last 3 Months or Most Recently Relevant to Health Maintenance Results * QUANTIFERON TB GOLD (08/17/2024 8:32 AM EST) Quantiferon-TB Gold in Tube Negative Negative 08/18/2024 8:03 PM EST [facility] Quantiferon Mitogen minus NIL 9.9834 IU/mL 08/18/2024 8:03 PM EST [facility] Quantiferon NIL 0.0166 IU/mL 8:03 PM EST [facility] QUANTIFERON TB1 MINUS NIL 0.0108 IU/mL 08/18/2024 8:03 PM EST [facility], [facility] QUANTIFERON TB2 MINUS NIL 0.0092 IU/mL 08/18/2024 8:03 PM EST [facility] Blood VENOUS BLOOD / Unknown Venipuncture / Unknown 08/17/2024 8:32 AM EST 08/17/2024 8:36 AM EST Narrative [facility] - 08/18/2024 8:03 PM EST Interferon gamma [...] Cortes MD IMMUNOLOGY ORDERABLES Fin al Result [facility] [employer], [place] [address] * (ABNORMAL) SEDIMENTATION RATE AUTOMATED (08/17/2024 8:32 AM EST) Only the most recent of3 resultswithin the time period is included. Pathologist [facility] Sed Rate 40(H) 0 - 30 mm/hr 08/17/2024 8:45 AM EST [facility] Blood VENOUS BLOOD / Unknown Venipuncture / Unknown 08/17/2024 8:32 AM EST 08/17/2024 8:36 AM EST Jessica Cortes MD HEMATOLOGY ORDERABLES Fin al Result [facility] [address] [place] [address] * (ABNORMAL) CBC WITH DIFF (08/17/2024 8:32 AM EST) Only the most recent of3 resultswithin the time period is included. WBC 10.8(H) 3.7 - 10.3 x10(3)/mc L 08/17/2024 8:40 AM [facility] RBC 5.07 3.90 - 5.20 x10(6)/mc L 08/17/2024 8:40 AM [facility] [facility] Hgb 12.8 11.2 - 15.7 g/dL 08/17/2024 8:40 AM [facility] Hct 42.3 34.0 - 45.0 % 08/17/2024 8:40 AM [facility] MCV 83.4 80.0 - 100.0 fL 08/17/2024 8:40 AM [facility] MCH 25.2(L) 26.0 - 34.0 pg 08/17/2024 8:40 AM [facility] [employer] [facility] MCHC 30.3(L) 30.7 - 35.5 g/dL 08/17/2024 8:40 AM [facility] RDW 15.3(H) <=14.9 % 08/17/2024 8:40 AM [facility] [facility] Platelet 474(H) 155 - 369 x10(3)/mc L 08/17/2024 8:40 AM [facility] MPV 9.3 8.8 - 12.5 fL 08/17/2024 8:40 AM [facility] [facility] Neut # Prelim 5.9 1.6 - 6.1 x10(3)/mc L 08/17/2024 8:40 AM [facility] Comment:Preliminary automate d absolute neutrophil count. Value may change if manual differential is indicated. Neut Percent 54.4 % 08/17/2024 8:40 AM [facility] Comment:Neutrophils equals s egs plus bands Imm Gran% 0.8 % 08/17/2024 8:40 AM [facility] Comment:Automated count of m etamyelocytes, myelocytes and promyelocytes. Lymph Percent 33.9 % 08/17/2024 8:40 AM EST [facility] [place] Percent 7.1 % 08/17/2024 8:40 AM EST [facility] Eos Percent 3.3 % 08/17/2024 8:40 AM EST [facility] Baso Percent 0.5 % 08/17/2024 8:40 AM EST [facility] Neut # 5.9 1.6 - 6.1 x10(3)/mc L 08/17/2024 8:40 AM EST [facility] Comment:Neutrophils equals s egs plus bands IMMGRAN# 0.1 0.0 - 0.1 x10(3)/mc L 08/17/2024 8:40 AM [facility] Comment:Automated count of m etamyelocytes, myelocytes and promyelocytes. An absolute IG <0.1 is reported as 0.0. Lymph # 3.7 1.2 - 3.9 x10(3)/mc L 08/17/2024 8:40 AM EST [facility] [place] # 0.8 0.3 - 0.9 x10(3)/mc L 08/17/2024 8:40 AM [facility] Eos# 0.4 0.0 - 0.5 x10(3)/mc L 08/17/2024 8:40 AM [facility] Baso # 0.1 0.0 - 0.1 x10(3)/mc L 08/17/2024 8:40 AM [facility] Blood VENOUS BLOOD / Unknown Venipuncture / Unknown 08/17/2024 8:32 AM EST 08/17/2024 8:36 AM EST us Jessica Cortes MD HEMATOLOGY ORDERABLES Fin al Result [facility] [address] [place] [address] * (ABNORMAL) C-REACTIVE PROTEIN (08/17/2024 8:32 AM EST) Only the most recent of3 resultswithin the time period is included. CRP 30.72(H) <=5.00 mg/L 08/17/2024 3:41 PM EST [facility] Blood VENOUS BLOOD / Unknown Venipuncture / Unknown 08/17/2024 8:32 AM EST 08/17/2024 8:36 AM EST us Jessica Cortes MD CHEMISTRY ORDERABLES Siobhan sivan Result [facility] [address] [facility] , [address] [place] [id number] * (ABNORMAL) COMPREHENSIVE METABOLIC PANEL (08/17/2024 8:32 AM EST) Only the most recent of3 resultswithin the time period is included. Sodium 137 136 - 145 mmol/L 08/17/2024 8:56 AM [facility] Potassium 3.3(L) 3.5 - 5.0 mmol/L 08/17/2024 8:56 AM [facility] Chloride 100 98 - 107 mmol/L 08/17/2024 8:56 AM [facility] Total CO2 24 22 - 29 mmol/L 08/17/2024 8:56 AM [facility] Anion Gap 13 7 - 16 mmol/L 08/17/2024 8:56 AM [facility] Calcium 9.1 8.6 - 10.4 mg/dL 08/17/2024 8:56 AM [facility] Glucose Lvl 125(H) 70 - 99 mg/dL 08/17/2024 8:56 AM [facility] BUN 9 6 - 20 mg/dL 08/17/2024 8:56 AM [facility] Creatinine 0.72 0.51 - 1.30 mg/dL 08/17/2024 8:56 AM [facility] Albumin 4.3 3.5 - 5.2 gm/dL 08/17/2024 8:56 AM [facility] Total Protein 7.8 6.4 - 8.3 gm/dL 08/17/2024 8:56 AM [facility] Bili Total 0.2 0.2 - 1.3 mg/dL 08/17/2024 8:56 AM [facility] ALT 17 <=41 U/L 08/17/2024 8:56 AM EST [facility] AST 19 <=40 U/L 08/17/2024 8:56 AM EST [facility] Alk Phos 90 36 - 123 U/L 08/17/2024 8:56 AM EST [facility] eGFR (CKD-EPIcr 2020) 99 >=60 mL/min/1.7 3 m2 08/17/2024 8:56 AM EST [facility] Comment:Estimated GFR was ca lculated using the CKD-EPIcr (2020) equation refit without race. The equation is recommended by the National Kidney Foundation - [place] Society of Nephrology Task Force. Blood VENOUS BLOOD / Unknown Venipuncture / Unknown 08/17/2024 8:32 AM EST 08/17/2024 8:36 AM EST Jessica Cortes MD CHEMISTRY ORDERABLES Siobhan l Result [facility] [address] [place] [address] * HEPATITIS B CORE AB TOTAL (08/04/2024 11:57 AM EST) Hep B Core Total Non-Reacti ve Non-Reacti ve 08/04/2024 9:22 PM EST [facility] Blood VENOUS BLOOD / Unknown Venipuncture / Unknown 08/04/2024 11:57 AM EST 08/04/2024 11:57 AM EST Jessica Cortes MD IMMUNOLOGY ORDERABLES Fin al Result [facility] [address] [place] [address] , [place] [address] * HCV ANTIBODY SCREEN W/ REFLEX (08/04/2024 11:57 AM EST) Hep C Ab Non-Reactiv e Non-Reacti ve 08/04/2024 8:49 PM EST [facility] Blood VENOUS BLOOD / Unknown Venipuncture / Unknown 08/04/2024 11:57 AM EST 08/04/2024 11:57 AM EST Jessica Cortes MD HEMATOLOGY ORDERABLES Fin al Result Performing Organization Address [facility] de Phone Number [employer] [address] , [place] [address] * HEPATITIS B SURFACE ANTIGEN (08/04/2024 11:57 AM EST) Hep Bs Ag Non-Reactiv e Non-Reacti ve 08/04/2024 9:22 PM EST [facility] Blood VENOUS BLOOD / Unknown Venipuncture / Unknown 08/04/2024 11:57 AM EST 08/04/2024 11:57 AM EST Jessica Cortes MD CHEMISTRY ORDERABLES Siobhan l Result Performing Organization Address [facility] Phone Number [facility] [address] [place] [address] , [place] [address] * [place] ARTHROCENTESIS ASPIR&/INJ INTERM JT/BURS W/O US (05/25/2024 11:15 AM EDT) Narrative [facility] - 05/25/2024 11:15 AM EDT Radha Valero, ? 05/26/2024 ??7:28 AM Medium Joint Injection/Arthrocentesis: [...] ORD ERABLES Final Result Performing Organization Address [facility] de Phone Number [facility] * MM MAMMO DIGITAL MCKAY SCREEN BILAT (02/11/2024 10:55 AM EDT) Anatomical Region Laterality Modality Breast Bilateral Mammography 02/11/2024 12:1 7 PM EDT Impressions 02/11/2024 12:17 PM EDT Negative ??([id number]) ~ RECOMMENDATION: Routine screening mammogram in 1 [...] the next mammogram, in accordance with the [place] [employer] and the Society of Breast Imaging recommendations. Narrative 02/11/2024 12:17 PM EDT Procedure:MM MAMMO DIGITAL MCKAY SCREEN BILAT ~ Reason for exam: screening, asymptomatic. Z12.31-Encounter for screening mammogram for malignant neoplasm of [id number] ~ MM MAMMO DIGITAL MCKAY SCREEN BILAT [...] for screening mammogram for malignant neoplasm of [id number]-CM ~ MM MAMMO DIGITAL MCKAY SCREEN BILAT Bilateral CC and MLO view(s) were taken. The breast tissue is heterogeneously dense. This may lower thesensitivity of mammography. Prior study comparison: None available No mammographic evidence of malignancy. ~ IMPRESSION: Negative ([id number]) ~ RECOMMENDATION: Routine screening mammogram in 1 [...] the next mammogram, in accordance with the [place] [employer] and the Society of Breast Imaging recommendations. us Julisa Kerr MD [facility] ORDERABLES Fin al Result * COLOGUARD (11/27/2020 7:50 PM EST) COLOGUARD CLINICAL REPORT Negative Not Applicable [facility] Comment: A negative result indicates [...] screened with both Cologuard and colonoscopy. (Davi Diaz et al, N Engl J Med 2014;370(14):6436-2612) The normal value (reference range) for this assay is negative. COLOGUARD RE-SCREENING RECOMMENDATION: Periodic routine colorectal cancer screening is an important part of preventive healthcare for asymptomatic persons at average risk for colorectal cancer. Following a negative Cologuard result, the [place] Cancer Society and U.S. Multi-Society Task Force screening guidelines recommend a Cologuard re-screening interval of 3 years. References: [place] Cancer Society (ACS). Colorectal cancer prevention and early detection. [place], [place]: [place] Cancer Society; [updated 2015Jan 20]. https://www.cancer.org/cancer/eshkk-fgvemc-pdwocy/noujyooiy-oarjrhpao-ynkujrl/ac s-rec ommendations.html. Accessed May 29, 2018; Luis Antonio DK, Jerry CR, Federico GreerK, Colorectal Cancer Screening: Recommendations for Physicians and Patients from the U.S. Multi-Society Task Force on Colorectal Cancer Screening, Am J Gastroenterology 2017; 112:7289-0555. TEST TYPE: Composite algorithmic analysis of stool [...] interval of every 3 years by the [place] Cancer Society and U.S. Multi-Society Task Force. [...] can be accessed at the following location: www.[employer].Discretix/results. Additional description of the Cologuard test process, warnings and precautions can be found at www.cologuardtest.com. Rx only. Stool specimen (specimen) 11/27/2020 7:50 PM EST 11/29/2020 2:22 PM EST Julisa Kerr MD [employer] - ORDERABLES Fin al Result [employer] [address] [place] [address], [facility] [employer] [address] [place] [address] from Last 3 Months or Most Recently Relevant to Health Maintenance Insurance [employer] [facility] [place] [address] 1968 [address] [address] Member Subscriber Plan / P[facility]Present) Name:Yuliet Newsome Relation to Subscriber:Self Name:Yuliet Newsome Payer ID:Not on file Group ID:Not on file Type:Not on file Address: [address] [facility] [id number] [place] [address] 1968 [address]NGUEZ [address] [address] Member Subscriber Plan / Payer [facility]/2023-Present) Name:Yuliet Newsome Relation to Subscriber:Self Name:Yuliet Newsome Payer ID:Not on file Group ID:Not on file Type:Not on file Address: [address] [facility] [address] [place] [address] Care Teams Biomass Boiler Operator Relationship Specialty Start Date End Date Usha, Julisa Greer MD [address] [place] [address] PCP - General 02/22/11 Jessica Cortes MD [address] [facility] [address] [place] [address] Internal Medicine-Rheumatology 04/26/16 Susana Garay MD [address] [place] [address] [place] [address] Medical Oncologist Internal Medicine-Hematology and Oncology 10/14/22
--- OUTSIDE RECORDS SUMMARY | 2024-08-22 21:34 | XMS_ITS | Encounter Summary ---
Author Organization [facility] [address] Care Team Providers Care Business Support Name Role Phone Julisa Kerr MD Primary Care Provider [phone] Jessica Cortes MD Unavailable [phone] Susana Garay MD Unavailable [phone] Reason for Visit * Reason Comments Medication Refill Encounter Details Date Type Department Care Team (Late st Contact Info) Description 08/10/[address] [facility] [address] [place] [address] Jessica Cortes MD [address] [facility] Building [address] [place] [address] Medication Refill Social History Tobacco Use Types [...] encounter Miscellaneous Notes * Telephone Encounter - Jessica Cortes MD - 08/11/2024 10:12 AM EST Simponi changed to Rituximab infusion. * Telephone Encounter - Teresa Wilkins MA - 08/10/2024 3:41 PM EST Images from the original note were not included. VALENTIN- 08/09/2024 Labs-08/04/2024 NEXT Follow up- 10/25/2024 Chart reviewed. documented in this encounter Plan of Treatment Upcoming Encounters Date Type Department Care Team (Late st Contact Info) Description 08/31/2024 8:30 AM EST Appointment [facility] [address] [place] [address] 10/25/2024 10:45 AM EST Office Visit [facility] [address] [facility] [address] [place] [address] Jessica Cortes MD [address]51 [facility] 19 [place] [address] 01/25/2025 9:00 AM EDT Appointment [place] [address] [place] [address] 05/09/2025 11:00 AM EDT Appointment [address] [place] [address] 05/09/2025 11:15 AM EDT [address]ointment [address] [place] [address] Susana Garay MD [address] [place] [address] documented as of this encounter Goals Goal Patient Goal Type Associated Problems Recent Progress Patient-Stated? Author Maintain a healthy diet, exercise regularly and maintain an ideal body weight General Porsche Ashley, RN documented as of this encounter Visit Diagnoses Diagnosis Rheumatoid arthritis involving multiple sites with positive rheumatoid factor (HCC) documented in this encounter Discontinued Medications Medication Sig Discontinue Reason Start Date End Da te golimumab (SIMPONI) 100 mg/mL SubQ Pen InjectorIndications:Rheu matoid arthritis involving multiple sites with positive rheumatoid factor (HCC) Inject 1 pen under the skin every 30 days. Cancelled by 12/12/2023 08/11/2024 documented as of this encounter Care Teams Business Support Relationship Specialty Start Date End Date Julisa Kerr MD [address] [place] [address] PCP - General 02/22/11 Jessica Cortes MD [address] [facility] Building [address] [place] [id number] Internal Medicine-Rheumatology 04/26/16 Susana Garay MD [address] [facility] [address] [place] [place] [address] Medical Oncologist Internal Medicine-Hematology and Oncology 10/14/22 documented as of this encounter
--- OUTSIDE RECORDS SUMMARY | 2024-08-22 21:34 | XMS_ITS | Encounter Summary ---
Author Organization [place] [address] Care Team Providers Care Melter Clerk Name Role Phone Julisa Kerr MD Primary Care Provider [phone] Jessica Cortes MD Unavailable [phone] Susana Garay MD Unavailable [phone] Reason for Visit * Reason Onset Date Comments Infusion 08/17/2024 Encounter Details Date Type Department Care Team (Late st Contact Info) Description 08/17/2024 Telephone [facility] [address] [facility] [address] [place] [address] Jessica Cortes MD [address] [facility] Building [address] [place] [id number] Infusion Social History Tobacco Use Types Packs/Day Years [...] Telephone Encounter - Jessica Cortes MD - 08/19/2024 1:51 PM EST Thank you. * Telephone Encounter - Mel Michaels MA - 08/19/2024 1:13 PM EST Spoke with patient. Patient states she woke up the next morning with a red rash across her face, but its now going away. She said she developed fever blisters on her bottom lip, but she has a h/o fever blisters. She feels good over all. No other complaints. * Telephone Encounter - Jessica Cortes MD - 08/19/2024 11:10 AM EST Please call patient and see how she did with the second part of the infusion. * Telephone Encounter - Mel Michaels MA - 08/17/2024 11:34 AM EST Spoke with Rosibel @ [facility] Infusion center #[phone]. Patient was given Rituxan infusion for the first time today. Patient was started at rate (25) pt reached to rate 125 and started to react (highest rate is 200). Patient was 1/[address] thru titration and started to complain of joint pain all over, hands cramping, and ankle tightness. IV infusion stopped and was given fluids. Patient was premedicated with Benadryl, Tylenol and SoluMedrol. Patient started feeling better with fluids. Patient feels her symptoms are infusion related. Vitals stable. Per Verbal order by Dr Cortes patient should continue to infuse patient at slower rate (start at50 and try to titrate up to 100 every 30 mins) continue to Monitor patient for any SOB, Rash, chestpain, swelling etc. documented in this encounter Plan of Treatment Upcoming Encounters Date Type Department Care Team (Late st Contact Info) Description 08/31/2024 8:30 AM EST Appointment [place] [address] [place] [address] 10/25/2024 10:45 AM EST Office Visit [facility] [address] [place] [address] Jessica Cortes MD [address] [place] [address] 01/25/2025 9:00 AM EDT Appointment [place] [address] [place] [address] 05/09/2025 11:00 AM EDT Appointment [place] [address] [place] [address] 05/09/2025 11:15 AM EDT Appointment [facility] [place] [address] [place] [address] Susana Garay MD [address] [place] [address] [place] [address] documented as of this encounter Goals Goal Patient Goal Type Associated Problems Recent Progress Patient-Stated? 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, RN documented as of this encounter Visit Diagnoses Not on filedocumented in this encounter Care Teams Melter Clerk Relationship Specialty Start Date End Date Julisa Kerr MD [address] [place] [address] PCP - General 02/22/11 Jessica Cortes MD [address] [place] [address] Internal Medicine-Rheumatology 04/26/16 Susana Garay MD [address] [place] [address] [place] [address] Medical Oncologist Internal Medicine-Hematology and Oncology 10/14/22 documented as of this encounter
--- OUTSIDE RECORDS SUMMARY | 2024-08-22 21:34 | XMS_ITS | Encounter Summary ---
Author [place] [address] Care Team Providers Care Tire Changer Aircraft Name Role Phone Julisa Kerr MD Primary Care Provider [phone] Jessica Cortes MD Unavailable [phone] Susana Garay MD Unavailable [phone] Reason for Visit * Reason Comments Medication Refill Encounter Details Date Type Department Care Team (Late st Contact Info) Description 08/14/2024 Refill [facility] [address] [place] [address] Julisa Kerr MD [address] [place] [address] Medication Refill Social History Tobacco Use Types [...] No 12/08/2023 3:24 PM EDT Luciano Kenney RMCarlene * Is the person blind or does he/she have serious difficulty seeing even when wearing glasses? Answer Date of Assessment Author No 12/08/2023 3:24 PM EDT Luciano Kennye RMA * Does this person have serious difficulty walking or climbing stairs? Answer Date of Assessment Author No 12/08/2023 3:24 PM EDT Luciano Kenney JARROD * Does this person have difficulty dressing or bathing? Answer Date of Assessment Author No 12/08/2023 3:24 PM EDT Luciano KenneyJARROD * Because of a physical, mental or emotional condition, does this person have difficulty doing errands alone such as visiting a doctor's office or shopping? Answer Date of Assessment Author No 12/08/2023 3:24 PM EDT Luciano Kenney JARROD documented as of this encounter Mental Status * Because of a physical, mental or emotional condition, does this person have serious difficulty concentrating, remembering or making decisions? Answer Entry Date Author No 12/08/2023 3:24 PM EDT Luciano Kenney JARROD documented in this encounter Plan of Treatment Upcoming Encounters Date Type Department Care Team (Late st Contact Info) Description 08/31/2024 8:30 AM EST Appointment [place] [address] [place] [address] 10/25/2024 10:45 AM EST Office Visit [facility] [address] [facility] [address] [place] [address] Jessica Cortes MD [address] [place] [address] Building [address] [place] [address] 01/25/2025 9:00 AM EDT Appointment [place] [address] [place] [address] 05/09/2025 11:00 AM EDT Appointment [place] [address] [place] [address] 05/09/2025 11:15 AM EDT Appointment [place] [address] [place], [place] [phone] Susana Garay MD [address] [place] [address] documented as of this encounter Goals Goal Patient Goal Type Associated Problems Recent Progress Patient-Stated? Author Maintain a healthy diet, exercise regularly and maintain an ideal body weight General Porsche Ashley RN documented as of this encounter Visit Diagnoses Diagnosis Rheumatoid arthritis involving multiple sites with positive rheumatoid factor (HCC) Acute bilateral low back pain without sciatica documented in this encounter Care Teams Tire Changer Aircraft Relationship Specialty Start Date End Date Julisa Kerr MD [address] [place], [place] [id number] PCP - General 02/22/11 Jessica Cortes MD [address] [address] Internal Medicine-Rheumatology 04/26/16 Susana Garay MD [address] [place] [address] Medical Oncologist Internal Medicine-Hematology and Oncology 10/14/22 documented as of this encounter
--- OUTSIDE RECORDS SUMMARY | 2024-08-22 21:35 | XMS_ITS | Encounter Summary ---
Author Organization [facility] Address [address] [place] [address] Care Team Providers Care Textile Converter Name Role Phone Julisa Kerr MD Primary Care Provider [phone] Jessica Cortes MD Unavailable [phone] Susana Garay MD Unavailable [phone] Reason for Visit * Reason Comments Pain Encounter Details Date Type Department Care Team (Late st Contact Info) Description 05/25/2024 11:15 AM EDT [facility] [address] [place] [address] Issa Barnard MD [address] [place] [id number] Synovitis of right ankle (Primary Dx) Social History Tobacco Use Types Packs/Day Years [...] Sign Reading Time Taken Comments Blood Pressure - - Pulse - - Temperature - - Respiratory Rate - - Oxygen Saturation - - Inhaled Oxygen Concentration - - Weight 63.5 kg (140 lb) 05/25/2024 11:19 AM EDT Height 160 cm (5' 3 ) 05/25/2024 11:19 AM EDT Body Mass Index 24.8 05/25/2024 11:19 AM EDT documented in this encounter Functional Status [...] Luciano Kenney RMA documented in this encounter Ordered Prescriptions Prescription Sig Dispense Quantity Refills Last Filled Start Date End Date ibuprofen (ADVIL;MOTRIN) 600 mg Oral TabletIndications:S ynovitis of right ankle Take 1 Tablet by mouth 3 times daily. 42 Tablet 05/25/2024 documented in this encounter Progress Notes * Radha Valero, RT - 05/25/2024 11:15 AM EDTAssociated Order(s): Medium Joint Injection/Arthrocentesis: R ankle Medium Joint Injection/Arthrocentesis: R ankle on 05/25/2024 11:15 AM Indications: joint swelling Details: 25 G needle, medial approach Medications: 1 mL BUPivacaine HCl 0.25 % (2.5 mg/mL); 2 mL betamethasone acet- betamethasone sodium phos 6 mg/mL Aspirate: yellow Outcome: tolerated well, no immediate complications Procedure, treatment alternatives, risks and benefits explained, specific risks discussed. Consent was given by the patient. Patient was prepped and draped in the usual sterile fashion. * Issa Barnard MD - 05/25/2024 11:15 AM EDT Images from the original note were not included. Bladimir Barnard MD Foot and Ankle Surgery and Sports Medicine [email or web address] Gradual development right ankle pain and swelling over the past 6 weeks. No specific injury. Ankleswas felt little weak. History of significant rheumatoid arthritis on multiple medicines from cryptographic clerk. Synthkitty for body Dr. Roth for consultation after MRI. Painful swelling fluctuate. PE right ankle is very noticeable effusion no redness or warmth. Slight pain with active motion mildly positive anterior drawer no deformity neurovascular intact X-rays 3 views right ankle nonstaining present Yanna reveals slight loss of joint space ankle andhindfoot MRI right ankle recent reveals severe significant ankle effusion and synovitis Impression right ankle effusion and significant synovitis likely secondary to rheumatoid arthritis Plan will proceed with a corticosteroid injection. Relative rest ice and elevate, follow-up as needed, also prescription for ibuprofen routine for a week. She has an allergy to Mobic or meloxicam buttells me she takes Advil or ibuprofen frequently without any problem. Ankle injection procedure: Procedure: Informed consent obtained for right ankle injection. Sterile technique procedure was used to first aspirate 4 cc of clear yellow fluid then inject 1 cc bupivacaine and 2 cc Celestone (betamethasone) into the that ankle joint. Instructed for relative rest for 24 hours, ice and rest for any post- injection flare. Contact office for persistent pain, redness, or swelling. Issa Barnard MD documented in this encounter Plan of Treatment Upcoming Encounters Date Type Department Care Team (Late st Contact Info) Description 08/31/2024 8:30 AM EST Appointment [place] [address] [place] [address] 10/25/2024 10:45 AM EST Office Visit [facility] [address] [place] [address] Jessica Cortes MD [address] [facility] [address] [place] [address] 01/25/2025 9:00 AM EDT Appointment [place] [address] [place] [address] 05/09/2025 11:00 AM EDT Appointment [place] [address] [place] [address] 05/09/2025 11:15 AM EDT Appointment [place] [address] [place] [address] Susana Garay MD [address] [place] [address] documented as of this encounter Goals Goal Patient Goal Type Associated Problems Recent Progress Patient-Stated? 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 RN documented as of this encounter Procedures Procedure Name Priority Date/Time Associated Diagnosis Comments GA ARTHROCENTESIS ASPIR&/INJ INTERM JT/BURS W/O US Routine 05/25/2024 11:15 AM EDT Synovitis of right ankle documented in this encounter Results * GA ARTHROCENTESIS ASPIR&/INJ INTERM JT/BURS W/O US (05/25/2024 [...] MD PROCEDURE/MINOR SURGICAL ORD ERABLES Final Result [facility] documented in this encounter Visit Diagnoses Diagnosis Synovitis of right ankle- Primary documented in this encounter Administered Medications Inactive Administered Medications - up to 1 most recent administrations Medication Order MAR Action Action Date Dose Rate Site betamethasone acet-betamethasone sodium phos (CELESTONE) injection 2 mL 2 mL, Intra-articular, ONCE PRN, 1 dose, Starting on Fri05/25/24 at 1115, Until Fri05/25/24 at 1115, Dx: 1. Synovitis of right ankleIndications:Synovitis of right ankle Given 05/25/2024 11:15 AM EDT 2 mL Ri ght Ankle BUPivacaine HCl (MARCAINE) 0.25 % (2.5 mg/mL) injection 1 mL 1 mL, Intra-articular, ONCE PRN, 1 dose, Starting on e 05/25/24 at 1115, Until Fri05/25/24 at 1115, Dx: 1. Synovitis of right ankleIndications:Synovitis of right ankle Given 05/25/2024 11:15 AM EDT 1 mL Ri ght Ankle documented in this encounter Care Teams Textile Converter Relationship Specialty Start Date End Date Julisa Kerr MD [address] [place] [address] PCP - General 02/22/11 Jessica Cortes MD [address] [place] [address] Internal Medicine-Rheumatology 04/26/16 Susana Garay MD [address] [facility] [place] [address] Medical Oncologist Internal Medicine-Hematology and Oncology 10/14/22 documented as of this encounter
--- OUTSIDE RECORDS SUMMARY | 2024-08-22 21:35 | XMS_ITS | Encounter Summary ---
Author Organization [place] [address] Care Team Providers Care Income Tax Administrator Name Role Phone Julisa Kerr MD Primary Care Provider [phone] Jessica Cortes MD Unavailable [phone] Susana Garay MD Unavailable [phone] Encounter Details Date Type Department Care Team (Latest Contact Info) Description 08/04/2024 11:52 AM EST - 08/04/2024 11:59 PM EST Hospital Encounter [facility] [address] [place] [address] Rheumatoid arthritis involving multiple sites with positive rheumatoid factor (HCC); Therapeutic drug monitoring Discharge Disposition: Home or Self Care Social [...] MUSCLE EVERY MONTH 1 mL 11 02/18/2024 hydrOXYzine (ATARAX) 25 mg Oral TabletIndications :Anxiety Take 1 Tablet by mouth 3 times daily as needed. 90 Tablet 2 05/03/2024 ibuprofen (ADVIL;MOTRIN) 600 mg Oral TabletIndications :Synovitis of right ankle Take 1 Tablet by mouth 3 times daily. 42 Tablet 05/25/2024 linaCLOtide (LINZESS) 290 mcg Oral CapsuleIndication s:Irritable [...] by mouth daily. 30 Tablet 1 07/19/2024 leflunomide (ARAVA) 20 mg Oral TabletIndications :Rheumatoid arthritis involving multiple sites with positive rheumatoid factor (HCC) TAKE 1 TABLET BY MOUTH EVERY DAY 30 Tablet 1 06/15/2024 documented as of this encounter Discharge Disposition Disposition Code Departure Means Destination Home or Self Care documented in this encounter Plan of Treatment Upcoming Encounters Date Type Department Care Team (Late st Contact Info) Description 08/31/2024 8:30 AM EST Appointment [address] [place] [address] 10/25/2024 10:45 AM EST Office Visit [facility] [place] [address] [place] [address] Jessica Cortes MD [address] [place] [address] 01/25/2025 9:00 AM EDT Appointment [address] [place] [address] 05/09/2025 11:00 AM EDT Appointment [address] [place] [address] 05/09/2025 11:15 AM EDT Appointment [address] [place] [address] Susana Garay MD [address] [place] [address] [place] [address] documented as of this encounter Goals Goal Patient Goal Type Associated Problems Recent Progress Patient-Stated? Author Maintain a healthy diet, exercise regularly and maintain an ideal body weight General Rosie Ashleyherine E, RN documented as of this encounter Procedures Procedure Name Priority Date/Time Associated Diagnosis Comments HEPATITIS B CORE AB TOTAL Routine 08/04/2024 11:57 AM EST Rheumatoid arthritis involving multiple sites with positive rheumatoid factor (HCC) Therapeutic drug monitoring HCV ANTIBODY SCREEN W/ REFLEX Routine 08/04/2024 [...] positive rheumatoid factor (HCC) Therapeutic drug monitoring C-REACTIVE PROTEIN Routine 08/04/2024 11 :57 AM EST Rheumatoid arthritis involving multiple sites with positive rheumatoid factor (HCC) COMPREHENSIVE METABOLIC PANEL Routine 08/04/2024 11:57 AM EST Rheumatoid arthritis involving multiple sites with positive rheumatoid factor (HCC) Therapeutic drug monitoring documented in this encounter Results * HCV ANTIBODY SCREEN W/ REFLEX (08/04/2024 11:57 AM EST) Hep C Ab Non-Reactiv e Non-Reacti ve 08/04/2024 8:49 PM EST [facility] Blood VENOUS BLOOD / Unknown Venipuncture / Unknown 08/04/2024 11:57 AM EST 08/04/2024 11:57 AM EST us Jessica Cortes MD HEMATOLOGY ORDERABLES Fin al Result [facility] [address] [facility] , [place] [address] * HEPATITIS B SURFACE ANTIGEN (08/04/2024 11:57 AM EST) Hep Bs Ag Non-Reactiv e Non-Reacti ve 08/04/2024 9:22 PM EST [facility] Blood VENOUS BLOOD / Unknown Venipuncture / Unknown 08/04/2024 11:57 AM EST 08/04/2024 11:57 AM EST us Jessica Cortes MD CHEMISTRY ORDERABLES Siobhan l Result Performing Organization Address [facility] Co de Phone Number [facility] [address] [facility] , [place] [id number] * HEPATITIS B CORE AB TOTAL (08/04/2024 11:57 AM EST) Pathologist [facility] Hep B Core Total Non-Reacti ve Non-Reacti ve 08/04/2024 9:22 PM EST [facility] Blood VENOUS BLOOD / Unknown Venipuncture / Unknown 08/04/2024 11:57 AM EST 08/04/2024 11:57 AM EST us Jessica Cortes MD IMMUNOLOGY ORDERABLES Fin al Result Performing Organization Address [facility] Co de Phone Number [facility] [address] [facility] , [place] [address] * (ABNORMAL) SEDIMENTATION RATE AUTOMATED (08/04/2024 11:57 AM EST) [facility] Sed Rate 47(H) 0 - 30 mm/hr 08/04/2024 4:15 PM EST [facility] Blood VENOUS BLOOD / Unknown Venipuncture / Unknown 08/04/2024 11:57 AM EST 08/04/2024 11:57 AM EST us Jessica Cortes MD HEMATOLOGY ORDERABLES Fin al Result Performing Organization Address [facility] Co de Phone Number [facility] [address] [facility] , [place] [address] * (ABNORMAL) C-REACTIVE PROTEIN (08/04/2024 11:57 AM EST) CRP 28.39(H) <=5.00 mg/L 08/04/2024 10:24 PM EST [facility] Blood VENOUS BLOOD / Unknown Venipuncture / Unknown 08/04/2024 11:57 AM EST 08/04/2024 11:57 AM EST us Jessica Cortes MD CHEMISTRY ORDERABLES Siobhan l Result [facility] [address] [facility] , [place] [address] * (ABNORMAL) CBC WITH DIFF (08/04/2024 11:57 AM EST) WBC 8.4 3.7 - 10.3 x10(3)/mcL 08/04/2024 4:15 PM EST [facility] RBC 5.01 3.90 - 5.20 x10(6)/mcL 08/04/2024 4:15 PM EST [facility] Hgb 12.6 11.2 - 15.7 g/dL 08/04/2024 4:15 PM EST [facility] Hct 41.6 34.0 - 45.0 % 08/04/2024 4:15 PM EST [facility] MCV 83.0 80.0 - 100.0 fL 08/04/2024 4:15 PM EST [facility] MCH 25.1(L) 26.0 - 34.0 pg 08/04/2024 4:15 PM EST [facility] MCHC 30.3(L) 30.7 - 35.5 g/dL 08/04/2024 4:15 PM EST [facility] RDW 16.8(H) <=14.9 % 08/04/2024 4:15 PM EST [facility] Platelet 350 155 - 369 x10(3)/mcL 08/04/2024 4:15 PM EST [facility] MPV 11.0 8.8 - 12.5 fL 08/04/2024 4:15 PM EST [facility] Neut Percent 51.7 % 08/04/2024 4:15 PM EST [facility] Comment:Neutrophils equals s egs plus bands Imm Gran% 0.6 % 08/04/2024 4:15 PM EST [facility] Comment:Automated count of m etamyelocytes, myelocytes and promyelocytes. Lymph Percent 29.3 % 08/04/2024 4:15 PM EST [facility] [place] Percent 13.2 % 08/04/2024 4:15 PM EST [facility] Eos Percent 4.5 % 08/04/2024 4:15 PM EST [facility] Baso Percent 0.7 % 08/04/2024 4:15 PM EST [facility] Neut # 4.4 1.6 - 6.1 x10(3)/mcL 08/04/2024 4:15 PM EST [facility] Comment:Neutrophils equals s egs plus bands IMMGRAN# 0.1 0.0 - 0.1 x10(3)/mcL 08/04/2024 4:15 PM EST [facility] Comment:Automated count of m etamyelocytes, myelocytes and promyelocytes. An absolute IG <0.1 is reported as 0.0. Lymph # 2.5 1.2 - 3.9 x10(3)/mcL 08/04/2024 4:15 PM EST [facility] [place] # 1.1(H) 0.3 - 0.9 x10(3)/mcL 08/04/2024 4:15 PM EST [facility] Eos# 0.4 0.0 - 0.5 x10(3)/mcL 08/04/2024 4:15 PM EST [facility] Baso # 0.1 0.0 - 0.1 x10(3)/[facility] 08/04/2024 4:15 PM EST [facility] Blood VENOUS BLOOD / Unknown Venipuncture / Unknown 08/04/2024 11:57 AM EST 08/04/2024 11:57 AM EST Jessica Cortes MD HEMATOLOGY ORDERABLES Fin al Result [facility] [address] [facility] , [place] [address] * COMPREHENSIVE METABOLIC PANEL (08/04/2024 11:57 AM EST) Sodium 136 136 - 145 mmol/L 08/04/2024 10:24 PM EST [facility] Potassium 4.0 3.5 - 5.0 mmol/L 08/04/2024 10:24 PM EST [facility] Chloride 100 98 - 107 mmol/L 08/04/2024 10:24 PM EST [facility] Total CO2 23 22 - 29 mmol/L 08/04/2024 10:24 PM EST [facility] Anion Gap 13 7 - 16 mmol/L 08/04/2024 10:24 PM EST [facility] Calcium 9.0 8.6 - 10.4 mg/dL 08/04/2024 10:24 PM EST [facility] Glucose Lvl 74 70 - 99 mg/dL 08/04/2024 10:24 PM EST [facility] BUN 9 6 - 20 mg/dL 08/04/2024 10:24 PM EST [facility] Creatinine 0.71 0.51 - 1.30 mg/dL 08/04/2024 10:24 PM EST [facility] Albumin 3.7 3.5 - 5.2 gm/dL 08/04/2024 10:24 PM EST [facility] Total Protein 7.0 6.4 - 8.3 gm/dL 08/04/2024 10:24 PM EST [facility] Bili Total 0.2 0.2 - 1.3 mg/dL 08/04/2024 10:24 PM EST [facility] ALT 18 <=41 U/L 08/04/2024 10:24 PM EST [facility] AST 24 <=40 U/L 08/04/2024 10:24 PM EST [facility] Alk Phos 94 36 - 123 U/L 08/04/2024 10:24 PM EST [facility] eGFR (CKD-EPIcr 2020) 101 >=60 mL/min/1.7 3 m2 08/04/2024 10:24 PM EST [facility] Comment:Estimated GFR was ca lculated using the CKD-EPIcr (2020) equation refit without race. The equation is recommended by the National Kid[employer] - [place] [employer] Neph[employer] Task Force. Blood VENOUS BLOOD / Unknown Venipuncture / Unknown 08/04/2024 11:57 AM EST 08/04/2024 11:57 AM EST us Jessica Cortes MD CHEMISTRY ORDERABLES Siobhan sivan Result [facility] [address] [facility] , [address] [place] [id number] [facility] [address] [place] [address] documented in this encounter Visit Diagnoses Diagnosis Rheumatoid arthritis involving multiple sites with positive rheumatoid factor (HCC) Therapeutic drug monitoring Encounter for therapeutic drug monitoring documented in this encounter Care Teams Income Tax Administrator Relationship Specialty Start Date End Date Julisa Kerr MD [address] [place] [address] PCP - General 02/22/11 Jessica Cortes MD [address] [place] [address] Internal Medicine-Rheumatology 04/26/16 Susana Garay MD [address] [place] [address] Medical Oncologist Internal Medicine-Hematology and Oncology 10/14/22 documented as of this encounter
--- OUTSIDE RECORDS SUMMARY | 2024-08-22 21:35 | XMS_ITS | Encounter Summary ---
Author Organization [facility] Address [address] [place] [address] Care Team Providers Care Water Carter Name Role Phone Julisa Kerr MD Primary Care Provider [phone] Jessica Cortes MD Unavailable [phone] Susana Garay MD Unavailable [phone] Reason for Visit * Reason Onset Date Comments Schedule Appointment 05/20/2024 Encounter Details Date Type Department Care Team (Late st Contact Info) Description 05/20/2024 Telephone [facility] [address] [place] [address] Josephine Cotton DO [address] [place] [address] Schedule Appointment Social History Tobacco Use Types Packs/Day Years [...] 12/08/2023 3:24 PM EDT Luciano KenneyJARROD * Does this person have serious difficulty walking or climbing stairs? Answer Date of Assessment Author No 12/08/2023 3:24 PM EDT Kenney, LucianoJARROD * Does this person have difficulty dressing or bathing? Answer Date of Assessment Author No 12/08/2023 3:24 PM EDT Luciano KenneyJARROD * Because of a physical, mental or emotional condition, does this person have difficulty doing errands alone such as visiting a doctor's office or shopping? Answer Date of Assessment Author No 12/08/2023 3:24 PM EDT Luciano KenneyJARROD documented as of this encounter Mental Status * Because of a physical, mental or emotional condition, does this person have serious difficulty concentrating, remembering or making decisions? Answer Entry Date Author No 12/08/2023 3:24 PM EDT Luciano Kenney JARROD documented in this encounter Miscellaneous Notes * Telephone Encounter - Danielle Alas MA - 05/20/2024 8:51 AM EDT Called patient, ELI, to let her know we received her MRI results, I will send them to her through [facility]. Dr Cotton would like her to follow up with Dr Barnard to go over the MRI and possibly discuss cortisone injections. documented in this encounter Plan of Treatment Upcoming Encounters Date Type Department Care Team (Late st Contact Info) Description 08/31/2024 8:30 AM EST Appointment [facility] [address] [place] [address] 10/25/2024 10:45 AM EST Office Visit [facility] [address] [facility] [address] [place] [address] Jessica Cortes MD [address] [facility] Building [address] [place] [address] 01/25/2025 9:00 AM EDT Appointment [address] [place] [address] 05/09/2025 11:00 AM EDT Appointment [address] [place] [address] 05/09/2025 11:15 AM EDT Appointment [address] [place] [address] Susana Garay MD [address] [facility] [place] [address] documented as of this encounter Goals Goal Patient Goal Type Associated Problems Recent Progress Patient-Stated? 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, RN documented as of this encounter Visit Diagnoses Not on filedocumented in this encounter Care Teams Water Carter Relationship Specialty Start Date End Date Julisa Kerr MD [address] [place] [address] PCP - General 02/22/11 Jessica Cortes MD [address] [place] [address] Internal Medicine-Rheumatology 04/26/16 Susana Garay MD [address] [facility] [place] [address] Medical Oncologist Internal Medicine-Hematology and Oncology 10/14/22 documented as of this encounter
--- OUTSIDE RECORDS SUMMARY | 2024-08-22 21:35 | XMS_ITS | Encounter Summary ---
Author Organization [place] [address] Care Team Providers Care Evaporative Cooler Installer Name Role Phone Julisa Kerr MD Primary Care Provider [phone] Jessica Cortes MD Unavailable [phone] Susana Garay MD Unavailable [phone] Reason for Referral * DEXA (Routine) - Pending Review Specialty Diagnoses / Procedures Referred By Contac t Referred To Contact Radiology Diagnoses Age-related osteoporosis without current pathological fracture Procedures DX BONE DENSITY AXIAL SKELETON Jessica Cortes MD [address] [place] [address] Phone: tel: fax: Referral ID Status Reason Start Date Expiration Date V isits Requested Visits Authorized [id number] Pending Review 04/19/2024 04/19/2025 1 1 Reason for Visit * DEXA (Routine) - Pending Review Specialty Diagnoses / Procedures Referred By Contac t Referred To Contact Radiology Diagnoses Age-related osteoporosis without current pathological fracture Procedures DX BONE DENSITY AXIAL SKELETON Jessica Cortes MD [address] [place] [address] Phone: tel: fax: Referral ID Status Reason Start Date Expiration Date V isits Requested Visits Authorized [id number] Pending Review 04/19/2024 04/19/2025 1 1 Encounter Details Date Type Department Care Team (Latest Contact Info) Description 05/06/2024 3:05 PM EDT - 05/06/2024 11:59 PM EDT Hospital Encounter [address] [place] [address] Jessica Cortes MD [address] [facility] Building [address] [place] [address] Age-related osteoporosis without current pathological fracture Discharge Disposition: Home or Self Care Social [...] 2 times daily. 60 Tablet 11 05/03/2024 cyanocobalamin 1,000 mcg/mL Inj SolutionIndicatio ns:Vitamin B 12 deficiency INJECT 1ML INTO MUSCLE EVERY MONTH 1 mL 11 02/18/2024 hydrOXYzine (ATARAX) 25 mg Oral TabletIndications :Anxiety Take 1 Tablet by mouth 3 times daily as needed. 90 Tablet 2 05/03/2024 linaCLOtide (LINZESS) 290 mcg Oral CapsuleIndication s:Irritable bowel syndrome with constipation and diarrhea Take 1 Capsule by mouth before breakfast. 90 Capsule 3 05/03/2024 leflunomide (ARAVA) 20 mg Oral TabletIndications :Rheumatoid arthritis involving multiple sites with positive rheumatoid factor (HCC) TAKE 1 TABLET BY MOUTH EVERY DAY 30 Tablet 1 03/10/2024 4 methotrexate sodium 25 mg/mL Inj SolutionIndicatio ns:R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 4 mL 1 03/29/2024 4 predniSONE (DELTASONE) 5 mg Oral TabletIndications :Rheumatoid arthritis involving multiple sites with positive rheumatoid factor (HCC) TAKE 1 TABLET BY MOUTH EVERY DAY 30 Tablet 1 03/29/2024 4 documented as of this encounter Discharge Disposition Disposition Code Departure Means Destination Home or Self Care documented in this encounter Plan of Treatment Upcoming Encounters Date Type Department Care Team (Late st Contact Info) Description 08/31/2024 8:30 AM EST Appointment [facility] [address] [place] [address] 10/25/2024 10:45 AM EST Office Visit [facility] [address] [place] [id number] Jessica Cortes MD 651 [facility] Building [address] [place] [address] 01/25/2025 9:00 AM EDT Appointment [place] [address] [place] [address] 05/09/2025 11:00 AM EDT Appointment [address] [place] [address] 05/09/2025 11:15 AM EDT Appointment [address] [place] [address] Susana Garay MD [address] [place] [address] [place] [address] documented as of this encounter Goals Goal Patient Goal Type Associated Problems Recent Progress Patient-Stated? 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 RN documented as of this encounter Procedures Procedure Name Priority Date/Time Associated Diagnosis Comments DX BONE DENSITY AXIAL SKELETON Routine 05/06/2024 3:51 PM EDT Age-related osteoporosis without current pathological fracture documented in this encounter Results * DX BONE DENSITY AXIAL SKELETON (05/06/2024 3:51 PM EDT) Anatomical Region Laterality Modality Dexa Scan 05/06/2024 Impressions 05/14/2024 12:36 PM EDT Indication: The patient is a post-menopausal female under age 65 with clinical risk factors for an osteoporotic fracture that requires a bone density assessment. Study was performed on [employer] 5. Bone Density: Region ?BMD ? T-score ? Z- score AP Spine (L1-L4) ?0.868 ?-1.6 ?-0.7 Femoral Neck (Right) ?0.490 ?-3.2 ?-2.3 Total Hip (Right) ? 0.598 ?-2.8 ?-2.2 World Health Organization criteria for BMD interpretation classify patients as: Normal (T-score at or above -1.0), Low Bone Density (T-score between -1.0 and -2.5), or Osteoporotic (T-score at or below -2.5). T Scores are reported in Postmenopausal women and in men age 50 and older. Z-scores are reported in females prior to menopause and in males younger than age 50. 10-year Fracture Risk: FRAX not reported because: ??Some T-score for Spine Total or Hip Total or Femoral Neck at or below -2.5 ??Treated for osteoporosis Previous Exams: Region ? Date ?Age ?BMD ??T-score ?BMD Change AP Spine(L1-L4) ? 05/06/2024 ?53 ?0.868 ?-1.6 ?-2.9% ? 04/24/2022 ?51 ?0.894 ?-1.4 ?-1.6% ? 12/18/2018 ?48 ?0.909 ?-1.3 ?10.1%* ? 05/03/2016 ?45 ?0.825 ?-2.0 *Denotes significance at 95% confidence level, LSC for AP Spine = 0.032g/cm2, LSC for Total Hip = 0.024 g/cm2, LSC for Distal 1/3 Radius = 0.026 g/cm2, site specific LSC for AP Spine = 0.032 g/cm2 BMD is shown in g/cm2 and BMD Change indicates change vs previous BMD Clinical Information Provided by Patient: Has had a low trauma fracture Has taken Glucocorticoids Has rheumatoid arthritis Is being treated for osteoporosis Has taken a bisphosphonate within the last two years. Has used or is currently using the following medications: Calcium, Vitamin D, Chemotherapy drugs Has had or currently has the following medical conditions: Asthma, Emphysema or COPD, Back pain, Hip pain Patient maximum height was 62.5 Menopause Age: 32 Patient is postmenopausal ??rt wrist fx Interpretation: Bone mineral density is in the osteoporotic range. A minimum of two years may be required between bone density studies due to inherent testing precision limitations. Intervals between BMD testing should be determined according to each patient's clinical status: typically one year after initiation or change of therapy is appropriate, with longer intervals once therapeutic effect is established. The right hip portion of the study is a new baseline and is not able to be compared. The spine bone mineral density is not significantly changed since the last exam. Reported by: Angela Seals PA-C, CCD on 05/12/2024 2:59:00 PM. Jessica Cortes MD IMG DEXA ORDERABLES Final Result documented in this encounter Visit Diagnoses Diagnosis Age-related osteoporosis without current pathological fracture Senile osteoporosis documented in this encounter Care Teams Evaporative Cooler Installer Relationship Specialty Start Date End Date Julisa Kerr MD [address] [place] [address] PCP - General 02/22/11 Jessica Cortes MD [address] [address] Internal Medicine-Rheumatology 04/26/16 Susana Garay MD [address] [place] [address] Medical Oncologist Internal Medicine-Hematology and Oncology 10/14/22 documented as of this encounter
--- OUTSIDE RECORDS SUMMARY | 2024-08-22 21:35 | XMS_ITS | Encounter Summary ---
Author Organization [place] [address] Care Team Providers Care Fuel Cell Binder Name Role Phone Julisa Kerr MD Primary Care Provider [phone] Jessica Cortes MD Unavailable [phone] Susana Garay MD Unavailable [phone] Encounter Details Date Type Department Care Team (Latest Contact Info) Description 06/14/2024 10:55 AM EDT - 06/14/2024 11:59 PM EDT Hospital Encounter [facility] [address] [place] [address] Rheumatoid arthritis involving multiple sites [...] ML ONCE A WEEK. 10 mL 06/15/2024 leflunomide (ARAVA) 20 mg Oral TabletIndications :Rheumatoid arthritis involving multiple sites with positive rheumatoid factor (HCC) TAKE 1 TABLET BY MOUTH EVERY DAY 30 Tablet 1 06/15/2024 4 leflunomide (ARAVA) 20 mg Oral TabletIndications :Rheumatoid [...] Info) Description 08/31/2024 8:30 AM EST Appointment [place] [address] [place] [address] 10/25/2024 10:45 AM EST Office Visit [facility] [address] [facility] [address] [place] [address] Jessica Cortes MD [address] [place] [address] [address] [place] [address] 01/25/2025 9:00 AM EDT Appointment [place] [address] [place] [address] 05/09/2025 11:00 AM EDT Appointment [place] [address] [place] [address] 05/09/2025 11:15 AM EDT Appointment [place] [address] [place] [address] Susana Garay MD [address] [place] [address] [address] [place] [address] documented as of this encounter Goals Goal Patient Goal Type Associated Problems Recent Progress Patient-Stated? Author Maintain a healthy diet, exercise regularly and maintain an ideal body weight Porsche Diaz RN documented as of this encounter Procedures Procedure Name Priority Date/Time Associated Diagnosis Comments SEDIMENTATION RATE AUTOMATED Routine 06/14/2024 10:58 AM EDT Rheumatoid arthritis involving multiple sites with positive rheumatoid factor (HCC) CBC WITH DIFF Routine 06/14/2024 10:58 AM EDT Rheumatoid arthritis involving multiple sites with positive rheumatoid factor (HCC) Therapeutic drug monitoring C-REACTIVE PROTEIN Routine 06/14/2024 10 :58 AM EDT Rheumatoid arthritis involving multiple sites with positive rheumatoid factor (HCC) COMPREHENSIVE METABOLIC PANEL Routine 06/14/2024 10:58 AM EDT Rheumatoid arthritis involving multiple sites with positive rheumatoid factor (HCC) Therapeutic drug monitoring documented in this encounter Results * SEDIMENTATION RATE AUTOMATED (06/14/2024 10:58 AM EDT) Sed Rate 24 0 - 30 mm/hr 06/14/2024 4:10 PM EDT [employer] Blood VENOUS BLOOD / Unknown Venipuncture / Unknown 06/14/2024 10:58 AM EDT 06/14/2024 10:58 AM EDT us Jessica Cortes MD HEMATOLOGY ORDERABLES Fin al Result [employer] 1 [facility] , [place] [id number] * C-REACTIVE PROTEIN (06/14/2024 10:58 AM EDT) CRP <3.00 <=5.00 mg/L 06/14/2024 4:15 PM EDT [employer] Blood VENOUS BLOOD / Unknown Venipuncture / Unknown 06/14/2024 10:58 AM EDT 06/14/2024 10:58 AM EDT us Jessica Cortes MD CHEMISTRY ORDERABLES Siobhan finnegan Result [facility] 1 [facility], [place] [address] * (ABNORMAL) CBC WITH DIFF (06/14/2024 10:58 AM EDT) WBC 12.1(H) 3.7 - 10.3 x10(3)/mcL 06/14/2024 4:10 PM EDT [facility] RBC 5.14 3.90 - 5.20 x10(6)/mcL 06/14/2024 4:10 PM EDT [facility] Hgb 12.9 11.2 - 15.7 g/dL 06/14/2024 4:10 PM EDT [facility] Hct 42.3 34.0 - 45.0 % 06/14/2024 4:10 PM EDT [facility] MCV 82.3 80.0 - 100.0 fL 06/14/2024 4:10 PM EDT [facility] MCH 25.1(L) 26.0 - 34.0 pg 06/14/2024 4:10 PM EDT [facility] MCHC 30.5(L) 30.7 - 35.5 g/dL 06/14/2024 4:10 PM EDT [facility] RDW 16.9(H) <=14.9 % 06/14/2024 4:10 PM EDT [facility] Platelet 400(H) 155 - 369 x10(3)/mcL 06/14/2024 4:10 PM EDT [facility] MPV 10.5 8.8 - 12.5 fL 06/14/2024 4:10 PM EDT [facility] Neut Percent 65.2 % 06/14/2024 4:10 PM EDT [facility] Comment:Neutrophils equals s egs plus bands Imm Gran% 2.1 % 06/14/2024 4:10 PM EDT [facility] Comment:Automated count of m etamyelocytes, myelocytes and promyelocytes. IG >1% represents a left shift and provides an early indication of an infection or inflammatory process. Lymph Percent 21.0 % 06/14/2024 4:10 PM EDT [facility], [facility] [place] Percent 8.8 % 06/14/2024 4:10 PM EDT [facility] Eos Percent 2.1 % 06/14/2024 4:10 PM EDT [facility] Baso Percent 0.8 % 06/14/2024 4:10 PM EDT [facility], [facility] Neut # 7.9(H) 1.6 - 6.1 x10(3)/[facility] 06/14/2024 4:10 PM EDT [facility] Comment:Neutrophils equals s egs plus bands IMMGRAN# 0.3(H) 0.0 - 0.1 x10(3)/[facility] 06/14/2024 4:10 PM EDT [facility] Comment:Automated count of m etamyelocytes, myelocytes and promyelocytes. An absolute IG <0.1 is reported as 0.0. Lymph # 2.5 1.2 - 3.9 x10(3)/[facility] 06/14/2024 4:10 PM EDT [facility] [place] # 1.1(H) 0.3 - 0.9 x10(3)/[facility] 06/14/2024 4:10 PM EDT [facility] Eos# 0.3 0.0 - 0.5 x10(3)/[facility] 06/14/2024 4:10 PM EDT [facility] Baso # 0.1 0.0 - 0.1 x10(3)/[facility] 06/14/2024 4:10 PM EDT [facility] Blood VENOUS BLOOD / Unknown Venipuncture / Unknown 06/14/2024 10:58 AM EDT 06/14/2024 10:58 AM EDT us Jessica Cortes MD HEMATOLOGY ORDERABLES Fin al Result [facility], [facility] 1 [facility] , [place] [address] * COMPREHENSIVE METABOLIC PANEL (06/14/2024 10:58 AM EDT) Sodium 139 136 - 145 mmol/L 06/14/2024 4:15 PM EDT [facility] Potassium 3.5 3.5 - 5.0 mmol/L 06/14/2024 4:15 PM EDT [facility] Chloride 104 98 - 107 mmol/L 06/14/2024 4:15 PM EDT [facility] Total CO2 26 22 - 29 mmol/L 06/14/2024 4:15 PM EDT [facility] Anion Gap 9 7 - 16 mmol/L 06/14/2024 4:15 PM EDT [facility] Calcium 9.5 8.6 - 10.4 mg/dL 06/14/2024 4:15 PM EDT [facility] Glucose Lvl 90 70 - 99 mg/dL 06/14/2024 4:15 PM EDT [facility] BUN 7 6 - 20 mg/dL 06/14/2024 4:15 PM EDT [facility] Creatinine 0.76 0.51 - 1.30 mg/dL 06/14/2024 4:15 PM EDT [facility] Albumin 3.8 3.5 - 5.2 gm/dL 06/14/2024 4:15 PM EDT [facility] Total Protein 7.0 6.4 - 8.3 gm/dL 06/14/2024 4:15 PM EDT [facility] Bili Total 0.2 0.2 - 1.3 mg/dL 06/14/2024 4:15 PM EDT [facility] ALT 7 <=41 U/L 06/14/2024 4:15 PM EDT [facility] AST 12 <=40 U/L 06/14/2024 4:15 PM EDT [facility] Alk Phos 90 36 - 123 U/L 06/14/2024 4:15 PM EDT [facility] eGFR (CKD-EPIcr 2020) 93 >=60 mL/min/1.7 3 m2 06/14/2024 4:15 PM EDT [facility] Comment:Estimated GFR was ca lculated using the CKD-EPIcr (2020) equation refit without race. The equation is recommended by the National Kidney Foundation - [employer] Neph[employer] Task Force. Blood VENOUS BLOOD / Unknown Venipuncture / Unknown 06/14/2024 10:58 AM EDT 06/14/2024 10:58 AM EDT us Jessica Cortes MD CHEMISTRY ORDERABLES Siobhan finnegan Result [facility] 1 [facility] , [address] [place] [id number] [facility] [address] [place] [id number] documented in this encounter Visit Diagnoses Diagnosis Rheumatoid arthritis involving multiple sites with positive rheumatoid factor (HCC) Therapeutic drug monitoring Encounter for therapeutic drug monitoring documented in this encounter Care Teams Fuel Cell Binder Relationship Specialty Start Date End Date Julisa Kerr MD [address] [place] [address] PCP - General 02/22/11 Jessica Cortes MD [address] [place] [address] Internal Medicine-Rheumatology 04/26/16 Susana Garay MD [address] [place] [address] [place], [place] [id number] Medical Oncologist Internal Medicine-Hematology and Oncology 10/14/22 documented as of this encounter
--- OUTSIDE RECORDS SUMMARY | 2024-08-22 21:35 | XMS_ITS | Encounter Summary ---
Author Organization [place] [address] Care Team Providers Care Senior Recruiter Name Role Phone Julisa Kerr MD Primary Care Provider [phone] Jessica Cortes MD Unavailable [phone] Susana Garay MD Unavailable [phone] Reason for Visit * Reason Onset Date Comments Medication Refill 06/15/2024 Encounter Details Date Type Department Care Team (Late st Contact Info) Description 06/15/2024 Refill [facility] [address] [place] [phone] Jhon Peña, DIRECTOR WORKFORCE MANAGEMENT [address] [place], [place] [phone] Medication Refill Social History Tobacco Use Types [...] Assessment Author No 12/08/2023 3:24 PM EDT Lucinao Kenney RMA * Does this person have [...] End Date gabapentin (NEURONTIN) 600 mg Oral TabletIndications: Rheumatoid arthritis involving multiple sites with positive rheumatoid factor (HCC),Acute bilateral low back pain without sciatica Take 1 Tablet by mouth 2 times daily. 60 Tablet 1 06/15/2024 08/14/2024 documented in this encounter Miscellaneous Notes * Telephone Encounter - Jackie Vanegas CCMA - 06/15/2024 10:49 AM EDT Wendy 05/03 documented in this encounter Plan of Treatment Upcoming Encounters Date Type Department Care Team (Late st Contact Info) Description 08/31/2024 8:30 AM EST Appointment [facility] [address] [place] [address] 10/25/2024 10:45 AM EST Office Visit [facility] [address] [facility] [address] [place] [id number] Jessica Cortes MD [address] [address] 01/25/2025 9:00 AM EDT Appointment [address] [place] [address] 05/09/2025 11:00 AM EDT Appointment [address] [place] [address] 05/09/2025 11:15 AM EDT Appointment [address] [place] [address] Susana Garay MD [address] [place] [address] [address] [place] [id number] documented as of this encounter Goals Goal [...] Tablet by mouth 2 times daily. Reorder 05/03/2024 06/15/2024 documented as of this encounter Care Teams Senior Recruiter Relationship Specialty Start Date End Date Julisa Kerr MD [address] [place] [address] PCP - General 02/22/11 Jessica Cortes MD 651 [facility] 19 [place] [address] Internal Medicine-Rheumatology 04/26/16 Susana Garay MD [address] [facility] [place] [address] Medical Oncologist Internal Medicine-Hematology and Oncology 10/14/22 documented as of this encounter
--- OUTSIDE RECORDS SUMMARY | 2024-08-22 21:35 | XMS_ITS | Encounter Summary ---
Author Organization [place] [address] Care Team Providers Care Electric Tape Slitter Name Role Phone Julisa Kerr MD Primary Care Provider [phone] Jessica Cortes MD Unavailable [phone] Susana Garay MD Unavailable [phone] Reason for Visit * Reason Comments Medication Refill Encounter Details Date Type Department Care Team (Late st Contact Info) Description 08/08/2024 Refill [facility] [address] [place] [address] Jessica Cortes MD [address] [facility] [address] [place] [address] Medication Refill Social History Tobacco Use Types [...] 3:24 PM EDT KenneyLuciano gallagher RMA * Does this person have difficulty dressing or bathing? Answer Date of Assessment Author No 12/08/2023 3:24 PM EDT KenneyLuciano gallagher RMA * Because of a physical, mental or emotional condition, does this person have difficulty doing errands alone such as visiting a doctor's office or shopping? Answer Date of Assessment Author No 12/08/2023 3:24 PM EDT KenneyLuciano gallagher RMA documented as of this encounter Mental Status * Because of a physical, mental or emotional condition, does this person have serious difficulty concentrating, remembering or making decisions? Answer Entry Date Author No 12/08/2023 3:24 PM EDT Luciano Kenney RMA documented in this encounter Ordered Prescriptions Prescription Sig Dispense Quantity Refills Last Filled Start Date End Date leflunomide (ARAVA) 20 mg Oral TabletIndications:R heumatoid arthritis involving multiple sites with positive rheumatoid factor (HCC) TAKE 1 TABLET BY MOUTH EVERY DAY 30 Tablet 1 08/10/2024 documented in this encounter Miscellaneous Notes * Telephone Encounter - Teresa Wilkins MA - 08/10/2024 3:42 PM EST VALENTIN- 08/03/2024 Labs-08/04/2024 NEXT Follow up- 10/25/2024 Chart reviewed. Arava 20 mg daily, documented in this encounter Plan of Treatment Upcoming Encounters Date Type Department Care Team (Late st Contact Info) Description 08/31/2024 8:30 AM EST Appointment [address] [place] [address] 10/25/2024 10:45 AM EST Office Visit [facility] [address] [facility] [address] [place] [id number] Jessica Cortes MD [address] [facility] [address] [place] [address] 01/25/2025 9:00 AM EDT [address]ointment [address] [place] [address] 05/09/2025 11:00 AM EDT Appointment [address] [place] [address] 05/09/2025 11:15 AM EDT Appointment [address] [place] [address] Susana Garay MD [address] [place], [place] [id number] documented as of this encounter Goals Goal [...] Discontinue Reason Start Date End Da te leflunomide (ARAVA) 20 mg Oral TabletIndications:Rheuma toid arthritis involving multiple sites with positive rheumatoid factor (HCC) TAKE 1 TABLET BY MOUTH EVERY DAY 06/15/2024 08/10/2024 documented as of this encounter Care Teams Electric Tape Slitter Relationship Specialty Start Date End Date Julisa Kerr MD [address] [place] [address] PCP - General 02/22/11 Jessica Cortes MD [address] [facility] [address] [place] [address] Internal Medicine-Rheumatology 04/26/16 Susana Garay MD [address] [place] [address] Medical Oncologist Internal Medicine-Hematology and Oncology 10/14/22 documented as of this encounter
--- OUTSIDE RECORDS SUMMARY | 2024-08-22 21:35 | XMS_ITS | Encounter Summary ---
Author [place] [address] Care Team Providers Care Director Commercial Sales Name Role Phone Julisa Kerr MD Primary Care Provider [phone] Jessica Cortes MD Unavailable [phone] Susana Garay MD Unavailable [phone] Reason for Visit * Reason Comments Follow-up Rheumatoid arthritis involving multiple sites with positive rheumatoid factor (HCC)Raynaud's phenomenon without gangrenePositive BRET (antinuclear antibody)Sicca syndrome (HCC)Neck painAge-related osteoporosis without current pathological fracturePostmenopausal stateTrochanteric bursitis of left hipPrimary osteoarthritis of both hipsAntiphospholipid syndrome (HCC)Immunocompromised patient (HCC)Therapeutic drug monitoringTuberculosis screening Hand Pain bilateral hand pain Ankle Pain Right ankle pain Encounter Details Date Type Department Care Team (Latest Contact Info) Description 07/19/2024 12:45 PM EDT Office Visit [facility] [address] [place] [address] Jessica Cortes MD [address] [facility] [address] [place] [address] Rheumatoid arthritis involving multiple sites with positive rheumatoid factor (HCC) (Primary Dx); Raynaud's phenomenon without gangrene; Positive BRET (antinuclear antibody); Sicca syndrome (HCC); Neck pain; Age-related osteoporosis without current pathological fracture; Postmenopausal state; Primary osteoarthritis involving multiple joints; Primary osteoarthritis of both hips; Antiphospholipid syndrome (HCC); Immunocompromised patient (HCC); Therapeutic drug monitoring; Tuberculosis screening Social History Tobacco Use Types Packs/Day Years [...] Sign Reading Time Taken Comments Blood Pressure 124/83 07/19/2024 12:56 PM EDT Pulse 91 07/19/2024 12:56 PM EDT Temperature - - Respiratory Rate 17 07/19/2024 12:56 PM EDT Oxygen Saturation - - Inhaled Oxygen Concentration - - Weight 64.1 kg (141 lb 6.4 oz) 07/19/2024 12:56 PM EDT Height 160 cm (5' 3 ) 07/19/2024 12:56 PM EDT Body Mass Index 25.05 07/19/2024 12:56 PM EDT documented in this [...] Luciano Kenney RMA documented in this encounter Patient Instructions * Attachments The following attachments cannot be sent through Care Everywhere. * Rituximab, ADULT (Cuban) documented in this encounter Ordered Prescriptions Prescription Sig Dispense Quantity Refills Last Filled Start Date End Date predniSONE (DELTASONE) 5 mg Oral TabletIndications:R heumatoid arthritis involving multiple sites with positive rheumatoid factor (HCC) Take 1 Tablet by mouth daily. 30 Tablet 1 07/19/2024 documented in this encounter Progress Notes * Jessica Cortes MD - 07/19/2024 12:45 PM EDT Subjective Subjective: Patient ID: Yuliet Trevino is a 53 y.o. female. Chief Complaint Patient presents with Follow-up Rheumatoid arthritis involving multiple sites with positive rheumatoid factor (HCC) Raynaud's phenomenon without gangrene Positive BRET (antinuclear antibody) Sicca syndrome (HCC) Neck pain Age-related osteoporosis without current pathological fracture Postmenopausal state Trochanteric bursitis of left hip Primary osteoarthritis of both hips Antiphospholipid syndrome (HCC) Immunocompromised patient (HCC) Therapeutic drug monitoring Tuberculosis screening Hand Pain bilateral hand pain Ankle Pain Right ankle pain HPI The patient comes in for follow up regarding RA. Symptoms started in 2002. Seen by [employer], Dr. Astorga. She was seen in [facility] but have not seen her in 6 months. Dx with RA in 2002. Could not get up from bed, could not walk, could not raise the arms above the head. She had problems with the wrists, hands, feet. She has swelling of the joints and periodic flares. Treated initially with MTX 15 mg weekly, tolerated well, made her a little nauseous. Treated with Humira x 6 months, worked very well but she started breaking out in the rash- pimples,pustules and it was discontinued. Enbrel was started afterwards around 2012. She tolerated it well and it seemed to work well but lost efficacy. She reported flares every 3 months while on treatment. More joint pain on one side or the other, joint swelling and pain, tender joints. In between the flares she has mild pain- 3/10, mild swelling. Today's visit: Right ankle has been bothering her a lot. Saw [place], Dr. Cotton. Received cortisol injection which has helped. The ankle is still a little swollen, not bad though. MRI of the ankle 05/18/24 showed moderate effusion and tibiotalar synovitis with significant synovial thickening/proliferation. All other joints feel good except for the fingers, they swell, mainly 4th right, 3rd left and pinkyon the left. Joint swelling: knuckles Dry eyes - stable. Uses eye drops. Dry mouth - not much Type of pain: ache Morning stiffness: 60 minutes Raynaud's: better in the warmer weather Current therapy: MTX 15 mg weekly, Arava 20 mg daily, Simponi 100 mg sq q month started around 02/10/22, on hold between 12/2023 and 04/19/24 due to hip replacement, restarted 04/19/24, folic acid 1 mg daily, Previous therapy: Tylenol, Codeine, Darvocet, Motrin, Naproxen, Celebrex, Lodine did not help Enbrel 50 mg sq q week (since 2012- till 01/2018)- ineffective, Humira- rash, Remicade- ineffective, Orencia 125 mg SQ weekly- started 04/2018, d/c'ed 10/2018, Actemra started 12/2018, stopped 01/2019- caused mouth sores and blisters on the upper arms, Xeljanz caused swelling of the lips, itching, Kevzara 200 mg q 2 weeks ( started 12/2019- stopped 03/2020)- nausea Plaquenil 200 mg BID, stopped due to nausea Fosamax 70 mg weekly- has not been taking it due to GI issues Arava 20 mg daily, Patients past medical, family and social histories were reviewed and updated. There were no changesexcept as noted. Allergies Allergen Reactions Orencia [Abatacept (With Maltose)] Swelling and Other (See Comments) Facial tingling/ numbness Abatacept Other (See Comments) Celecoxib Other (See Comments) Tocilizumab Other (See Comments) Cefdinir Other (See Comments) Bad abdominal cramping Enbrel [Etanercept] Itching Humira [Adalimumab] Itching Infliximab Other (See Comments) Pustule pimples itching Mobic [Meloxicam] Hives Xeljanz [Tofacitinib] Itching Current Outpatient Medications on File Prior to Visit Medication Sig Dispense Refill apixaban (ELIQUIS) 5 mg Oral Tablet Take 1 Tablet by mouth 2 times daily. 60 Tablet 11 cyanocobalamin 1,000 mcg/mL Inj Solution INJECT 1ML INTO MUSCLE EVERY MONTH 1 mL 11 gabapentin (NEURONTIN) 600 mg Oral Tablet Take 1 Tablet by mouth 2 times daily. 60 Tablet 1 golimumab (SIMPONI) 100 mg/mL SubQ Pen Injector Inject 1 pen under the skin every 30 days. 1 mL 2 hydrOXYzine (ATARAX) 25 mg Oral Tablet Take 1 Tablet by mouth 3 times daily as needed. 90 Tablet 2 ibuprofen (ADVIL;MOTRIN) 600 mg Oral Tablet Take 1 Tablet by mouth 3 times daily. 42 Tablet 0 leflunomide (ARAVA) 20 mg Oral Tablet TAKE 1 TABLET BY MOUTH EVERY DAY 30 Tablet 1 methotrexate sodium 25 mg/mL Inj Solution SUBCUTANEOUS (INJECT UNDER THE SKIN) 0.8 ML ONCE A WEEK. 10 mL 0 linaCLOtide (LINZESS) 290 mcg Oral Capsule Take 1 Capsule by mouth before breakfast. (Patient not taking: Reported on 07/19/2024) 90 Capsule 3 No current facility-administered medications on file prior to visit. Review of Systems Constitutional: Positive for fatigue. HENT: Dry mouth Eyes: Dry eyes Gastrointestinal: GERD Musculoskeletal: Positive for arthralgias, joint swelling and myalgias. Neurological: Positive for headaches. All other systems reviewed and are negative. Objective Objective: Vitals: 07/19/24 1256 BP: 124/83 Pulse: 91 Resp: 17 Weight: 141 lb 6.4 oz (64.1 kg) Height: 5' 3 (1.6 m) Body mass index is 25.05 kg/m??. Physical Exam Constitutional: Appearance: She is well-developed. HENT: Head: Normocephalic and atraumatic. Musculoskeletal: Comments: Synovitis in the wrists,1st, 2nd MCP bilaterally, 3rd left MCP, 5th MCP bilaterally, 4th right PIP, 3rd left PIP, right snkle, both metatarsal areas. Tenderness to the wrists, 1,2,5th rightMCP, 1-3rd, 5th left MCP, 4th right PIP, 3rd left PIP, right ankle, both MTP joints. Tenderness to both trapezius, spinal processes of the cervical, upper thoracic and lumbar spine. Neurological: Mental Status: She is alert. Psychiatric: Mood and Affect: Mood normal. Rapid 3: 19.5 Lab Results Component Value Date WBC 12.1 (H) 06/14/2024 HGB 12.9 06/14/2024 HCT 42.3 06/14/2024 MCV 82.3 06/14/2024 PLT 400 (H) 06/14/2024 Chemistry Component Value Date/Time NA 139 06/14/2024 1058 NA 138 11/23/2019 0000 K 3.5 06/14/2024 1058 K 4.6 11/23/2019 0000 CL 104 06/14/2024 1058 CL 102 11/23/2019 0000 CO2 26 06/14/2024 1058 CO2 27 11/23/2019 0000 BUN 7 06/14/2024 1058 BUN 11 11/23/2019 0000 CREATININE 0.76 06/14/2024 1058 CREATININE 0.7 11/23/2019 0000 GLU 90 06/14/2024 1058 GLU 103 (H) 07/01/2017 1532 Component Value Date/Time CALCIUM 9.5 06/14/2024 1058 CALCIUM 9.60 11/23/2019 0000 ALKPHOS 90 06/14/2024 1058 ALKPHOS 112 11/23/2019 0000 AST 12 06/14/2024 1058 AST 20 11/23/2019 0000 ALT 7 06/14/2024 1058 ALT 9 11/23/2019 0000 BILITOT 0.2 11/23/2019 0000 Lab Results Component Value Date CRP <3.00 06/14/2024 Lab Results Component Value Date SEDRATE 24 06/14/2024 XR KNEE LEFT AP LAT INT EXT OBLIQUES AND SUNRISE, 06/19/2022 12:37 PM FINDINGS: There is no acute fracture, dislocation, or ankle joint effusion. Medial and patellofemoral osteophytes are present without joint space narrowing. IMPRESSION: No acute osseous findings. XR ANKLE LEFT AP LATERAL AND OBLIQUE, 06/19/2022 12:37 PM FINDINGS: There is lateral ankle soft tissue swelling. No definite acute fracture is present. Oblique lucency of the lateral malleolus on the AP view appears to reflect superimposition of the distal lateral tibia. There is no ankle joint malalignment or degenerative joint disease. IMPRESSION: Soft tissue swelling. No acute osseous findings. MRI KNEE LEFT WO CONTRAST 06/10/2023 9:36 AM IMPRESSION: 1. Constellation of of MRI findings are compatible with the patient's history of rheumatoid arthritis. There is a large complex joint effusion with findings of synovitis and large complex Forbes's cyst. 2. Smoothly attenuated inner rim margins of the medial and lateral menisci overall favor prior partial meniscectomy changes. Please correlate with the patient's surgical intervention. If there is no history of surgery, chronic fraying/tearing considered. 3. Intact cruciate/collateral ligaments and extensor mechanism. MRI ANKLE RIGHT WO CONTRAST 05/18/2024 3:37 PM CLINICAL HISTORY: M25.571-Pain in right ankle and joints of right [id number] M25.471-Effusion, right [id number] COMPARISON: None TECHNIQUE: Multiplanar, multisequence MR images of the right ankle were obtained without the use of contrast. FINDINGS: BONES & JOINTS: There is proliferation and marked synovial thickening at the tibiotalar joint with a moderate-sized joint effusion. There tibiotalar joint space narrowing which appears relatively symmetric. No osteochondral lesion identified. There are additional arthritic changes noted in the midfoot with mild reactive marrow signal changes. No osseous erosions. MEDIAL STRUCTURES: Deltoid ligament complex is intact. Mild tendinopathy of the posterior tibialis tendon without discrete tear. Patellas lungs inflated digitorum longus tendons are intact. LATERAL STRUCTURES: The syndesmotic ligaments are intact. The lateral ligamentous complex is intact. The peroneal tendons are intact and located within the retromalleolar groove. ANTERIOR/POSTERIOR STRUCTURES: The tibialis anterior tendon is intact. The Achilles tendon is intact. OTHER: The plantar fascia is intact. IMPRESSION: 1. Nonspecific tibiotalar synovitis with significant synovial thickening/proliferation and moderate joint effusion. There is relatively symmetric joint space narrowing. This appearance raises the possibility of a inflammatory or crystalline arthropathy. No osseous erosions visible. 2. Moderate midfoot arthritic changes. 3. Probable mild tendinopathy of the posterior tibialis tendon. No discrete tear. Peroneal tendons are intact. Assessment and Plan: Yuliet Trevino was seen today for follow-up, hand pain and ankle pain. Diagnoses and all orders for this visit: Rheumatoid arthritis involving multiple sites, with positive rheumatoid factor (HCC) Dx in 2002 Follow[address] previously [address] Dr. Astorga in [facility]. Records from [facility] received and reviewed. The patient was seen in 05/11/13 for initial evaluation. Presented with polyarticular joint involvement- large and small joints- shoulders, elbows, knees, wrists, knuckles, toes. Per records she had low titer (+) RF, (-) CCP, (+) BRET centromere pattern > 8.0 with negative SSA/SSB, ELECTRIC [employer]OR [employer]TER, Scl 70, dsDNA Records indicate she used to see Dr. Armstrong but was lost to f/u due to loss of insurance Records also indicate she failed Humira ( side effects- rash) and Remicade ( did not respond to treatment). MTX and Enbrel started in 04/2013. X rays of both feet 05/18/2013 revealed minimal degenerative changes of both feet X rays of the hands 05/18/2013 revealed degenerative changes , diffuse in the radiocarpal, first carpometacarpal joints metacarpophalangeal joints and interphalangeal joints. Diffuse osteopenia was noted. Impression was possible inflammatory arthropathy and possible old fractures of the right radiusand ulna due to abnormal morphology. X rays of the hands from 03/2016 revealed erosive changes of the left ulnar styloid, periarticular osteopenia of the left wrist and degenerative changes in both wrists and interphalangeal joints. X rays of the feet from 03/2016 were normal. Vectra DA 20 - low disease activity, while on Enbrel and MTX Labs obtained 03/2017 revealed (+) RF 42, (-) CCP Recurrent flares of joint pain, swelling. Non adherent to therapy. Failed Plaquenil 200 mg twice a day, started 06/28/22, lowered to 200 mg daily due to nausea, stopped 12/09/22 MTX started 15 mg in 2012, changed to injectable in 06/2016 for better efficacy, she run out in 09/2016, restarted 11/2016, increased to 20 mg weekly sq in 04/2018, and to 25 mg sq 08/25/18. Stopped MTX08/2019 due to GI upset. Enbrel 50 mg sq q week ( since 2012), run out 09/2016, restarted 03/10/17 after PPD done and negative. Enbrel lost efficacy - periodic flares of the swelling of the joints, synovitis in the few MCP joints, wrists. Enbrel changed to Orencia 125 mg SQ weekly 04/2018. Orencia ineffective Orencia changed to Actemra 162 mg sq 1 week in 12/2018. Actemra caused mouth sores and rash- blistering. Stopped 01/2019 Actemra changed to Xeljanz 11 mg daily 02/2019. Xeljanz caused swelling of the lips, tingling of theface, itching Off MTX between 08/2019 and 02/2020, off Xeljanz since 04/2019 Significant flare in 10/2019, significant right wrist deformity, synovitis in the wrists, 2nd, 3nd, 5th right MCP, 5th right PIP,1st left MCP, 3rd left PIP. Restarted MTX 15 mg SQ weekly 10/2019. Started Kevzara 200 mg q 2 weeks in 12/2019. Symptoms improved on Kevzara. Less tenderness, less synovitis in exam in 02/2020. Stopped Kevzara 03/2020 due to nausea Started Arava 10 mg daily 05/2020. On and off MTX and Arava due to non adherence with therapy, lack of labs for monitoring, and missedfollow up appointments. Run out of MTX in 01/2021, and Arava in 03/2021. Very active arthritis in 05/2021. Tenderness to both wrists, all of the MCP joints, 4th, 5tth right PIP, right ankle. Significant synovitis in the wrists, moderate in the left wrist, 1st- 5th MCP, 5thright PIP, 1st, 2nd, 5th left MCP, right ankle, both MTP areas. MTX and Arava restarted 06/21/21 but the patient run out of MTX again in 07/2021 and out of Arava in09/2021. MTX and Arava restarted 12/2021 Started Simponi 50 mg sq q month 01/2022. Symptoms have improved. Synovitis in the wrists R>L, minimal in the 2nd, 3rd, 5th right MCP, 1st left MCP, mild swelling behind both knees. Inflammatory markers have declined, ESR normal , CRP 25.87 on 03/28/22. Off MTX for 2 months between -05/2022. Very active symptoms in 06/28/22, synovitis in the wrists, minimal in the 2nd, 3rd, 4th, 5th right MCP, 4th, 5th right PIP, 1st, 5th left MCP, 5th left PIP, new left knee and left ankle effusion. Warmth to the left knee and left ankle. MTX 15 mg sq q week restarted 05/2022, increased to 20 mg in 02/2023 due to synovitis in the wrists and couple MCP joints. Simponi increased to 100 mg q month. Arava increased to 20 mg daily 06/20/23 off since 09/2023, run out and did not realize it Stopped Prednisone 5 mg daily due to weight gain and the fact it stopped helping Synovitis in the exam in 12/2023 in the wrists, 5th right MCP, 4th, 5th right PIP, moderate synovitis in the 1st, 2nd, 5th left MCP, 3rd left PIP. Continue Arava 20 mg daily (restarted 12/2023). Continue MTX 15 mg weekly. Simponi 100 mg q month on hold between 12/2023 and 03/2024 due to left hip replacement surgery She had mild synovitis in the wrists and 2nd MCP bilaterally as well as 3rd left PIP visible through video on 04/19/24 Advised restart Simponi 100 mg q month 04/19/24 Very active disease despite being on MTX, Arava and Simponi regularly for the last 3 months. She continues to have significant synovitis. Synovitis in the wrists,1st, 2nd MCP bilaterally, 3rd left MCP, 5th MCP bilaterally, 4th right PIP, 3rd left PIP, right snkle, both metatarsal areas today. Recent effusion of the right ankle, still present but better after aspiration and cortisol injection per ortho. MRI of the ankle 05/18/24 showed moderate effusion and tibiotalar synovitis with significant synovial thickening/proliferation. Will change Simponi to Rituximab 1000 mg IV q 2 weeks every 4-6 months. Discussed the risks involved with treatment: infections, including PML, infusion reactions, reactivation of TB, GI perforation,bone marrow suppression. Hepatitis panel ordered to be rechecked Patient should hold therapy while being treated for infections. Patient should not receive live vaccines while on therapy. - riTUXimab (RITUXAN) 1,000 mg in sodium chloride 0.9 % 453 mL chemo infusion - 0.9 % NaCl infusion - sodium chloride 0.9% syringe - sodium chloride 0.9 % sterile syringe 10 mL - heparin flush 100 unit/mL injection 500 Units - diphenhydrAMINE (BENADRYL) injection 50 mg - methylPREDNISolone sodium succinate (Solu-MEDROL) injection 125 mg - famotidine (PEPCID) injection 20 mg - albuterol (PROVENTIL HFA;VENTOLIN HFA) inhaler 1-2 Puff - 0.9 % NaCl infusion - EPINEPHrine injection 0.3 mg - predniSONE (DELTASONE) 5 mg Oral Tablet; Take 1 Tablet by mouth daily. - HEPATITIS B CORE AB TOTAL; Future - HEPATITIS B SURFACE ANTIGEN; Future - HCV ANTIBODY SCREEN W/ REFLEX; Future Raynaud's phenomenon without gangrene Positive BRET (antinuclear antibody) 1:640, centromere pattern Sicca syndrome (HCC) Suspect secondary Sjogren's due to RA. SSA and SSB antibodies negative Behavioral modifications- sugar free gum and candy, frequent fluid intake, eye drops Regular ophthalmology and dental appointments No history of digital ulcerations No other symptoms to suggest active CTD. Neck pain x rays 11/11/18 revealed mild degenerative changes, no evidence of atlanto axial disease MRI of the C spine 01/23/19 revealed degenerative disc changes at the C5-C6 and C6-C7 levels, no high-grade foraminal stenosis or neural canal stenosis. PT worsened the symptoms Evaluated by ortho, s/p RFA's, those helped, last one not that effective Regular stretches, heat, ice, massage Off Diclofenac 75 mg BID Age-related osteoporosis without current pathological fracture Postmenopausal state Surgical menopause in 2000 Hx of RA, frequent prednisone use Bone density ( 05/03/16) T score -2.2 at the right femoral neck. FRAX score - risk for fracture is low. Vitamin D supplement daily DXA 12/18/18 showed low bone mass. Improved in the spine and stable in the hip in comparison to the last DXA from 2016 Prior elbow fracture. DXA 04/24/22 showed significant decline in the BMD at the right hip, FRAX high HF 3.5%, MOF 16%, lowest T score -2.4 at the right femoral neck Fosamax 70 mg weekly started 12/09/22. Has not been taking it due to GI issues Reclast 5 mg IV started on 01/23/2024 DXA 05/06/24- stable Continue Reclast infusions yearly Advised to take Ca/Vit D supplement - zoledronic acid (RECLAST) 5 mg/100 mL IVPB 5 mg - 0.9 % NaCl infusion - sodium chloride 0.9% syringe - sodium chloride 0.9 % sterile syringe 10 mL - heparin flush 100 unit/mL injection 500 Units - diphenhydrAMINE (BENADRYL) injection 50 mg - methylPREDNISolone sodium succinate (Solu-MEDROL) injection 125 mg - famotidine (PEPCID) injection 20 mg - albuterol (PROVENTIL HFA;VENTOLIN HFA) inhaler 1-2 Puff - 0.9 % NaCl infusion - EPINEPHrine injection 0.3 mg - acetaminophen (TYLENOL) tablet 650 mg - diphenhydrAMINE (BENADRYL) injection 25 mg - methylPREDNISolone sodium succinate (Solu-MEDROL) injection 100 mg Primary osteoarthritis involving multiple joints Primary osteoarthritis of both hips X ray of the left knee 06/19/22 revealed mild anterior compartment OA X ray of the right knee 12/18/23 revealed mild OA x rays of the left hip 10/27/23 showed progression of osteoarthritis, moderate changes on left, mildin the right hip. S/p right TKA 08/22/[address] Clifton S/p left RIOS on 01/30/[address] Clifton. Continue stretches and topical OTC creams Voltaren gel and topical lidocaine Failed Cymbalta- ineffective Antiphospholipid antibody syndrome DVT 04/2022 Elevated d- dimer (+) anti cardiolipin Ab IgM at 72- high positive, persistent Suspect APLS Evaluated by Hem/Onc, Dr. Garay Needs life long anticoagulation. ON Eliquis Immunocompromised patient (HCC) Increased risk for infections due to immunosuppression Prevnar 13 given 12/13/16 Pneumovax 23 given 03/17/17 Therapeutic drug monitoring Tuberculosis screening TB gold negative 04/27/24 Labs every 6-8 weeks while on MTX and Arava to monitor for toxicities. Last lab work: CBC and CMP unremarkable on 06/14/24. S/p left hip replacement on 01/30/24. Recheck hepatitis serologies - HEPATITIS B CORE AB TOTAL; Future - HEPATITIS B SURFACE ANTIGEN; Future - HCV ANTIBODY SCREEN W/ REFLEX; Future Return in about 3 months (around 10/19/2024). documented in this encounter Plan of Treatment Upcoming Encounters Date Type Department Care Team (Late st Contact Info) Description 08/31/2024 8:30 AM EST Appointment [place] [address] [place] [address] 10/25/2024 10:45 AM EST Office Visit [facility] [address] [place] [address] Jessica Cortes MD [address] [place] [address] 01/25/2025 9:00 AM EDT [address]ment [address] [place] [address] 05/09/2025 11:00 AM EDT [address]ment [address] [place] [address] 05/09/2025 11:15 AM EDT [address]ointment [address] [place] [address] Susana Garay MD [address] [place] [address] [place] [address] documented as of this encounter Goals Goal Patient Goal Type Associated Problems Recent Progress Patient-Stated? 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, RN documented as of this encounter Results * HCV ANTIBODY SCREEN W/ REFLEX (08/04/2024 11:57 AM EST) Hep C Ab Non-Reactiv e Non-Reacti ve 08/04/2024 8:49 PM EST PREFERRED LAB [employer] Physical Blood VENOUS BLOOD / Unknown Venipuncture / Unknown 08/04/2024 11:57 AM EST 08/04/2024 11:57 AM EST us Jessica Cortes MD HEMATOLOGY ORDERABLES Fin al Result Performing Organization Address [facility] Phone Number [employer] [address] [facility] , [place] [address] * HEPATITIS B SURFACE ANTIGEN (08/04/2024 11:57 AM EST) Hep Bs Ag Non-Reactiv e Non-Reacti ve 08/04/2024 9:22 PM EST PREFERRED LAB [facility] Blood VENOUS BLOOD / Unknown Venipuncture / Unknown 08/04/2024 11:57 AM EST 08/04/2024 11:57 AM EST us Jessica Cortes MD CHEMISTRY ORDERABLES Siobhan l Result Performing Organization Address [facility] Phone Number [facility] [address] [facility] , [place] [address] * HEPATITIS B CORE AB TOTAL (08/04/2024 11:57 AM EST) Hep B Core Total Non-Reacti ve Non-Reacti ve 08/04/2024 9:22 PM EST [facility] Blood VENOUS BLOOD / Unknown Venipuncture / Unknown 08/04/2024 11:57 AM EST 08/04/2024 11:57 AM EST us Jessica Cortes MD IMMUNOLOGY ORDERABLES Fin al Result Performing Organization Address [facility] de Phone Number [facility] [address] [facility] , [place] [address] documented in this encounter Visit Diagnoses Diagnosis 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 Raynaud's phenomenon without gangrene Positive BRET (antinuclear antibody) Other and unspecified nonspecific immunological findings Sicca syndrome (HCC) Sicca syndrome Neck pain Cervicalgia Age-related osteoporosis without current pathological fracture Senile osteoporosis Postmenopausal state Asymptomatic postmenopausal status (age-related) (natural) Primary osteoarthritis involving multiple joints Primary osteoarthritis of both hips Primary localized osteoarthrosis, pelvic region and thigh Antiphospholipid syndrome (HCC) Primary hypercoagulable state Immunocompromised patient (HCC) Unspecified immunity deficiency Therapeutic drug monitoring Encounter for therapeutic drug monitoring Tuberculosis screening Screening examination for pulmonary tuberculosis documented in this encounter Discontinued Medications Medication Sig Discontinue Reason Start Date End Da te predniSONE (DELTASONE) 5 mg Oral TabletIndications:Rheuma toid arthritis involving multiple sites with positive rheumatoid factor (HCC) TAKE 1 TABLET BY MOUTH EVERY DAY Reorder 06/15/2024 07/19/2024 documented as of this encounter Care Teams Director Commercial Sales Relationship Specialty Start Date End Date Julisa Kerr MD [address] [place], [place] [id number] PCP - General 02/22/11 Jessica Cortes MD [address] [address] Internal Medicine-Rheumatology 04/26/16 Susana Garay MD [address] [place] [address] Medical Oncologist Internal Medicine-Hematology and Oncology 10/14/22 documented as of this encounter
--- OUTSIDE RECORDS SUMMARY | 2024-08-22 21:35 | XMS_ITS | Encounter Summary ---
Author Organization [place] [address] Care Team Providers Care Shoulder Puncher Name Role Phone Julisa Kerr MD Primary Care Provider [phone] Jessica Cortes MD Unavailable [phone] Susana Garay MD Unavailable [phone] Encounter Details Date Type Department Care Team (Latest Contact Info) Description 05/06/2024 3:05 PM EDT Hospital Encounter [facility] [address] [place] [address] Jessica Cortes MD [address] [address] Annual physical exam Discharge Disposition: Home or Self Care Social [...] MOUTH EVERY DAY 30 Tablet 1 03/10/2024 methotrexate sodium 25 mg/mL Inj SolutionIndicatio ns:Rheumatoid [...] Info) Description 08/31/2024 8:30 AM EST Appointment [address] [place] [address] 10/25/2024 10:45 AM EST Office Visit [facility] [address] [place] [address] Jessica Cortes MD [address] [facility] Building [address] [place] [address] 01/25/2025 9:00 AM EDT Appointment [place] [address] [place] [address] 05/09/2025 11:00 AM EDT Appointment [address] [address] [place] [address] 05/09/2025 11:15 AM EDT Appointment [address] [address] [place] [address] Susana Garay MD [address] [place] [address] [place] [address] documented as of this encounter Goals Goal Patient Goal Type Associated Problems Recent Progress Patient-Stated? Author Maintain a healthy diet, exercise regularly and maintain an ideal body weight Porsche Diaz, RN documented as of this encounter Procedures Procedure Name Priority Date/Time Associated Diagnosis Comments THYROID STIMULATING HORMONE Routine 05/06/2024 3:08 PM EDT Annual physical exam HEMOGLOBIN A1C Routine 05/06/2024 3:08 PM EDT Annual physical exam LIPID SCREEN Routine 05/06/2024 3:08 PM EDT Annual physical exam documented in this encounter Results * (ABNORMAL) LIPID SCREEN (05/06/2024 3:08 PM EDT) Cholesterol 190 <200 mg/dL 05/06/2024 11:28 PM EDT [facility] Comment: < 200 ?Desirable 200 - 239 ? Borderline High >= 240 ?High Triglyceride 149 <150 mg/dL 05/06/2024 11:28 PM EDT [facility] Comment: < 150 ? Normal 150 - 199 ?Borderline High 200 - 499 ?High ??>= 500 ? Very High HDL 55 >=40 mg/dL 05/06/2024 11:28 PM EDT [facility] Comment: ??> 60 ?Optimal 40 - 60 ?Acceptable ?? < 40 ?Low LDL Calculated 109(H) <100 mg/dL 05/06/2024 11:28 PM EDT [facility]ERRED [facility] Comment: < 100 ?Optimal 100 - 129 ? Near or above optimal 130 - 159 ? Borderline High 160 - 189 ? High >= 190 ?Very High Non-HDL-C Calculated 135(H) <=129 mg/dL 05/06/2024 11:28 PM EDT [facility] Comment: <130 ?Desirable 130-159 Above Desirable 160-189 Borderline High 190-219 High >= 220 ??Very High Fasting Specimen? No None 024 11:28 PM EDT [facility] Blood VENOUS BLOOD / Unknown Venipuncture / Unknown 05/06/2024 3:08 PM EDT 05/06/2024 3:08 PM EDT Jhon Peña APRN CHEMISTRY ORDERABLES Final R esult Performing Organization Address [facility] Co de Phone Number [facility] [address] , [place] [phone] [facility] [address] [place] [phone] * THYROID STIMULATING HORMONE (05/06/2024 3:08 PM EDT) TSH 0.434 0.270 - 4.200 mcIU/mL 05/06/2024 11:28 PM EDT [facility] Blood VENOUS BLOOD / Unknown Venipuncture / Unknown 05/06/2024 3:08 PM EDT 05/06/2024 3:08 PM EDT Narrative [facility] - 05/06/2024 11:28 PM EDT Ingestion of beverley doses of biotin (>5 mg/day) taken within 8 hours of drawing blood sample can interfere with this immunoassay test. Jhon Peña APRN CHEMISTRY ORDERABLES Final R esult Performing Organization Address [facility] Co de Phone Number [facility] 1 [facility] , [place] [phone] * (ABNORMAL) HEMOGLOBIN A1C (05/06/2024 3:08 PM EDT) Hgb A1C 6.1(H) 4.2 - 5.6 % 05/06/2024 8:04 PM EDT [facility] Est. Avg Glucose 128 mg/dL 05/06/2024 8:04 PM EDT [facility] Blood VENOUS BLOOD / Unknown Venipuncture / Unknown 05/06/2024 3:08 PM EDT 05/06/2024 3:08 PM EDT Narrative [facility] - 05/06/2024 8:04 PM EDT REFERENCE RANGE: Normal: 4.0-5.6% Pre-diabetes: 5.7-6.4% Provisional diagnosis of diabetes: >6.4% Hgb F>10% and anything which shortens red cell survival, such as hemolytic anemia, or unstable hemoglobin variants such as HbSS, HbSC, or HbCC, will lower the HbA1c value associated with a given level of glycemic control. ? us Jhon Peña SOLUTION DEVELOPER CHEMISTRY ORDERABLES Final R esult PREFERRED [facility], [facility] [address] [facility] , [place] [address] [facility] [address] [place] [address] documented in this encounter Visit Diagnoses Diagnosis Annual physical exam Routine general medical examination at a health care facility documented in this encounter Care Teams Shoulder Puncher Relationship Specialty Start Date End Date Julisa Kerr MD [address] [place] [id number] PCP - General 02/22/11 Jessica Cortes MD 651 [facility] [address] [place] [address] Internal Medicine-Rheumatology 04/26/16 Susana Garay MD [address] [place] [address] [place] [address] Medical Oncologist Internal Medicine-Hematology and Oncology 10/14/22 documented as of this encounter
--- OUTSIDE RECORDS SUMMARY | 2024-08-22 21:35 | XMS_ITS | Encounter Summary ---
Author [place] [address] Care Team Providers Care Bowl Turner Name Role Phone Julisa Kerr MD Primary Care Provider [phone] Jessica Cortes MD Unavailable [phone] Susana Garay MD Unavailable [phone] Reason for Visit * Reason Comments Medication Refill Encounter Details Date Type Department Care Team (Late st Contact Info) Description 06/14/2024 Refill [facility] [address] [place] [address] Jessica Cortes MD 651 [facility] Building [address] [place] [phone] Medication Refill Social History Tobacco Use Types [...] Refills Last Filled Start Date End Date methotrexate sodium 25 mg/mL Inj SolutionIndicatio ns:Rheumatoid [...] EVERY DAY 30 Tablet 1 06/15/2024 4 documented in this encounter Miscellaneous Notes * Telephone Encounter - Mel Michaels MA - 06/15/2024 8:21 AM EDT Lab results reviewed. E-scribed meds into pharmacy. * Telephone Encounter - Mel Michaels MA - 06/14/2024 3:13 PM EDT VALENTIN-04/19/24 Labs-06/14/24 in process NEXT Follow up-07/19/24 Chart reviewed. Awaiting lab results. documented in this encounter Plan of Treatment Upcoming Encounters Date Type Department Care Team (Late st Contact Info) Description 08/31/2024 8:30 AM EST Appointment [address] [place] [address] 10/25/2024 10:45 AM EST Office Visit [facility] [address] [place] [address] Jessica Cortes MD [address] [place] [address] 01/25/2025 9:00 AM EDT Appointment [address] [place] [address] 05/09/2025 11:00 AM EDT [address]ointment [address] [address] 05/09/2025 11:15 AM EDT [address]ointment [address] [place] [address] Susana Garay MD [address] [place] [address] [place] [address] documented as of this encounter Goals Goal [...] Da te leflunomide (ARAVA) 20 mg Oral TabletIndications:Rhe umatoid arthritis involving multiple sites with positive rheumatoid factor (HCC) TAKE 1 TABLET BY MOUTH EVERY DAY 03/10/2024 06/15/2024 predniSONE (DELTASONE) 5 mg Oral TabletIndications:Rhe umatoid arthritis involving multiple sites with positive rheumatoid factor (HCC) TAKE 1 TABLET BY MOUTH EVERY DAY 03/29/2024 06/15/2024 methotrexate sodium 25 mg/mL Inj SolutionIndications:R 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 03/29/2024 06/15/2024 documented as of this encounter Care Teams Bowl Turner Relationship Specialty Start Date End Date Julisa Kerr MD [address] [place] [phone] PCP - General 02/22/11 Jessica Cortes MD [address] [place] [address] Internal Medicine-Rheumatology 04/26/16 Susana Garay MD [address] [place] [address] Medical Oncologist Internal Medicine-Hematology and Oncology 10/14/22 documented as of this encounter
--- OUTSIDE RECORDS SUMMARY | 2024-08-22 21:35 | XMS_ITS | Encounter Summary ---
Author Organization [place] [address] Care Team Providers Care Reeling Machine Setup Operator Name Role Phone Julisa Kerr MD Primary Care Provider [phone] Jessica Cortes MD Unavailable [phone] Susana Garay MD Unavailable [phone] Encounter Details Date Type Department Care Team (Late st Contact Info) Description 07/29/2024 11:30 AM EDT Telemedicine [address] [address] Julisa Kerr MD 100 [place] [address] History of cold sores (Primary Dx); Acute bacterial sinusitis Social History Tobacco Use Types Packs/Day Years [...] Refills Last Filled Start Date End Date azithromycin (ZITHROMAX) 250 mg Oral TabletIndications: Acute bacterial sinusitis Take 2 tablets (500 mg) on Day 1, followed by 1 tablet (250 mg) once daily on Days 2 through 5. 6 Tablet 07/29/2024 valACYclovir (VALTREX) 1 gram Oral TabletIndications: History of cold sores Take 2 Tablets by mouth 2 times daily for 2 days. For cold sore flare 20 Tablet 3 07/29/2024 4 documented in this encounter Progress Notes * Julisa Kerr MD - 07/29/2024 11:30 AM EDT Patient presented today for routine care follow-up through a video visit. Patient has reviewed the terms and conditions of service as part of the registration for today's visit. A video visit does not replace a vbvn-so-hocf exam and further services may be necessary. We are conducting her video visit in a private space and this video visit is being conducted in accordance with state telehealth/video visit regulations. HPI: Patient complains of cough, congestion, drainage, subjective fever/chills. Symptoms present for 2 weeks OTC meds no help. Review of Systems Constitutional: Negative for fatigue and fever. HENT: Positive for congestion, rhinorrhea, sinus pressure and sinus pain. Respiratory: Negative for cough and wheezing. Cardiovascular: Negative. Gastrointestinal: Negative. Genitourinary: Negative. Musculoskeletal: Positive for arthralgias. Skin: Positive for rash. Neurological: Negative. Hematological: Negative. Psychiatric/Behavioral: Negative. Exam: Constitutional: NAD, appropriately groomed. Appears comfortable. HENT: No gross deformities. Voice normal. No facial swelling noted. Eyes: Extra occular movements grossly intact. Visible portions of the eyes appear normal. No redness or discharge visible via casual video inspection. Cardiopulmonary: Does not appear in cardiopulmonary distress. Easy respirations w/o labored breathing. No audible gross wheezing or breathlessness. Neuro: Alert and oriented. Conversational. No gross deficits or facial droop appreciated on video evaluation. Psych: Appropriate mood and affect. Normal conversation and thought content. Assessment Diagnoses and all orders for this visit: History of cold sores - valACYclovir (VALTREX) 1 gram Oral Tablet; Take 2 Tablets by mouth 2 times daily for 2 days. For cold sore flare Dispense: 20 Tablet; Refill: 3 Acute bacterial sinusitis - azithromycin (ZITHROMAX) 250 mg Oral Tablet; Take 2 tablets (500 mg) on Day 1, followed by 1 tablet (250 mg) once daily on Days 2 through 5. Dispense: 6 Tablet; Refill: 0 documented in this encounter Plan of Treatment Upcoming Encounters Date Type Department Care Team (Late st Contact Info) Description 08/31/2024 8:30 AM EST Appointment [facility] [address] [place] [address] 10/25/2024 10:45 AM EST Office Visit [facility] [address] [facility] [address] [place] [address] Jessica Cortes MD [address] [facility] Building [address] [place] [address] 01/25/2025 9:00 AM EDT Appointment [place] [address] [place] [address] 05/09/2025 11:00 AM EDT Appointment [facility] [place] [address] 05/09/2025 11:15 AM EDT Appointment [facility] [place] [address] Susana Garay MD 1 [facility] [address] [place] [phone] documented as of this encounter Goals Goal Patient Goal Type Associated Problems Recent Progress Patient-Stated? Author Maintain a healthy diet, exercise regularly and maintain an ideal body weight General Porsche Ashley RN documented as of this encounter Visit Diagnoses Diagnosis History of cold sores- Primary Personal history of other infectious and parasitic disease Acute bacterial sinusitis Acute sinusitis, unspecified documented in this encounter Care Teams Reeling Machine Setup Operator Relationship Specialty Start Date End Date Julisa Kerr MD 100 [place] [address] PCP - General 02/22/11 Jessica Cortes MD [address] [address] Internal Medicine-Rheumatology 04/26/16 Susana Garay MD 1 [facility] [place] [address] Medical Oncologist Internal Medicine-Hematology and Oncology 10/14/22 documented as of this encounter
--- OUTSIDE RECORDS SUMMARY | 2024-08-22 21:35 | XMS_ITS | Encounter Summary ---
Author Organization [place] [address] Care Team Providers Care Home Child Care Provider Name Role Phone Julisa Kerr MD Primary Care Provider [phone] Jessica Cortes MD Unavailable [phone] Susana Garay MD Unavailable [phone] Reason for Visit * Reason Comments Extremity Weakness Encounter Details Date Type Department Care Team (Late st Contact Info) Description 05/17/2024 11:00 AM EDT Office Visit [place] [facility] [address] [place] [address] Arie Stewart MD [address] [place] [address] Generalized weakness (Primary Dx); Benign head tremor Social History Tobacco Use Types Packs/Day Years [...] Sign Reading Time Taken Comments Blood Pressure 130/82 05/17/2024 11:09 AM EDT Pulse 82 05/17/2024 11:09 AM EDT Temperature 36.7 ??C (98 ??F) 05/17/2024 11:09 AM EDT Respiratory Rate - - Oxygen Saturation 98% 05/17/2024 11:09 AM EDT Inhaled Oxygen Concentration - - Weight 63.5 kg (140 lb) 05/17/2024 11:09 AM EDT Height 160 cm (5' 3 ) 05/17/2024 11:09 AM EDT Body Mass Index 24.8 05/17/2024 11:09 AM EDT documented in this encounter Functional [...] documented in this encounter Progress Notes * Arie Stewart MD - 05/17/2024 11:00 AM EDT CC: f/u HPI: December 2023--Yuliet Caballero [place] Kay is a 53yo WF who presents to clinic by self. Has noticed a constellation of symptoms in the past 2-3 weeks. Has been having head Tremors. She is able to suppressthese if desired. Worse during periods of stress. They are worse when she is doing a lot. Out of the blue. No inciting event. In addition, her walking has slowed and she feels that she is weak in herarms--specifically around her shoulders--she is having more pain in her shoulders. Did go to UrgentCare and then ED--was advised to have Neuro w/u to make sure no 1ary neurological etiology. Does have known RA that is known to flare several times/year. 17 May 2024--pt here for f/u by self. Her weakness is about the same and is not changed. Worse when more physically taxing events/heat. Same with her head tremors that are improved today. She has been taking GBP for her RA pain and that has helped her head tremors in that the tremors are worse when her pain is not controlled. Allergies: allergy list reviewed and accurate PMHx: 1. RA--since age 30 2. H/o DVT 3. 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 90 Tablet 2 leflunomide (ARAVA) 20 mg Oral Tablet TAKE 1 TABLET BY MOUTH EVERY DAY 30 Tablet 1 linaCLOtide (LINZESS) 290 mcg Oral Capsule Take 1 Capsule by mouth before breakfast. 90 Capsule 3 methotrexate sodium 25 mg/mL Inj Solution SUBCUTANEOUS (INJECT UNDER THE SKIN) 0.8 ML ONCE A WEEK. 4 mL 1 predniSONE (DELTASONE) 5 mg Oral Tablet TAKE 1 TABLET BY MOUTH EVERY DAY 30 Tablet 1 No current facility-administered medications for this visit. Med list reviewed and accurate Review of Systems Neurological Weakness, tremors as above Physical Exam Vitals: 05/17/24 1109 BP: 130/82 Pulse: 82 Temp: 98 ??F (36.7 ??C) SpO2: 98% Gen: WDWN in no apparent distress NE/NF both 5/5 No head tremors Neuro: AAOx4, Speech fluent and appropriate without dysarthria, responds to examiner normally; language nml CN II: VFFTC CN III, IV, : EOMI bilaterally CN VII: face and smile symmetric CN IX,X: palate symmetric and raises symmetric CN XI: shoulder shrug 5/5 bilaterally CN XII: TPM Motor: 5/5 strength throughout equal and symmetric, tone and bulk both normal Sens: intact to LT Galdino and FFM slowed but not aymmetric Gait slowed with short steps, slightly antalgic Labs: CMP, TSH, CBC nml A1c 5.6 Hep B/C negative ssA/B negative Syphilis negative B12 261 MRI brain May 2023--no acute changes MRI CSpine 2018---mild DDD, no cord changes Labs: CK 24, MMA, Acetylcholine Receptor Ab all nml/neg EMG left arm and leg--normal MRI Brain January 2024--ind viz--essentially normal study MRI CSpine January 2024--ind viz--mild DDD, no cord changes Assessment and Plan: 1. Generalized weakness W/u above unrevealing. Due to underlying MSK etiology and RA. Improved now that her pain is better controlled with GBP. 2. Benign head tremor Not seen today. Mild on exam last visit. Does not need additional treatment. Advised that if worsens, could think about potential of EMG guided Botox but very mild and would not recommend at this time. F/u with us prn. documented in this encounter Plan of Treatment Upcoming Encounters Date Type Department Care Team (Late st Contact Info) Description 08/31/2024 8:30 AM EST Appointment [facility] [address] [place] [address] 10/25/2024 10:45 AM EST Office Visit [facility] [address] [facility] [address] [place] [address] Jessica Cortes MD 651 [facility] 19 [place] [address] 01/25/2025 9:00 AM EDT Appointment [place] [address] [place] [address] 05/09/2025 11:00 AM EDT [address]ment [address] [place] [address] 05/09/2025 11:15 AM EDT Appointment [address] [place] [address] Susana Garay MD [address] [facility] [address] [place], [place] [phone] documented as of this encounter Goals Goal Patient Goal Type Associated Problems Recent Progress Patient-Stated? 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, RN documented as of this encounter Visit Diagnoses Diagnosis Generalized weakness- Primary Other malaise and fatigue Benign head tremor Essential and other specified forms of tremor documented in this encounter Care Teams Home Child Care Provider Relationship Specialty Start Date End Date Julisa Kerr MD [address] [place] [address] PCP - General 02/22/11 Jessica Cortes MD 651 [facility] Building [address] [place] [address] Internal Medicine-Rheumatology 04/26/16 Susana Garay MD [address] [facility] [address] [place], [place] [phone] Medical Oncologist Internal Medicine-Hematology and Oncology 10/14/22 documented as of this encounter
--- OUTSIDE RECORDS SUMMARY | 2024-08-22 21:35 | XMS_ITS | Encounter Summary ---
Author [place] [address] Care Team Providers Care County Program Technician Name Role Phone Julisa Kerr MD Primary Care Provider [phone] Jessica Cortes MD Unavailable [phone] Susana Garay MD Unavailable [phone] Reason for Visit * Reason Onset Date Comments Other 05/11/2024 Encounter Details Date Type Department Care Team (Late st Contact Info) Description 05/11/2024 Telephone [facility] [address] [facility] [address] [place] [address] Jessica Cortes MD 651 [facility] Building [address] [place] [id number] Other Social History Tobacco Use Types Packs/Day Years [...] encounter Miscellaneous Notes * Telephone Encounter - Caterina Bingham, Clerical Staff - 05/11/2024 2:35 PM EDT Pt calling in regards to get results for DXA scan. Pt made aware provider is out of the office. Please advise documented in this encounter Plan of Treatment Upcoming Encounters Date Type Department Care Team (Late st Contact Info) Description 08/31/2024 8:30 AM EST Appointment [facility] [address] [place] [address] 10/25/2024 10:45 AM EST Office Visit [facility] [address] [facility] [address] [place] [address] Jessica Cortes MD [address]51 [facility] Building [address] [place] [address] 01/25/2025 9:00 AM EDT Appointment [place] [address] [place] [address] 05/09/2025 11:00 AM EDT [address]ment [address] [place] [address] 05/09/2025 11:15 AM EDT [address]ointment [address] [place] [place] [address] Susana Garay MD [address] [facility] [address] [place] [id number] documented as of this encounter Goals Goal Patient Goal Type Associated Problems Recent Progress Patient-Stated? 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, RN documented as of this encounter Visit Diagnoses Not on filedocumented in this encounter Care Teams County Program Technician Relationship Specialty Start Date End Date Julisa Kerr MD [address] [place] [address] PCP - General 02/22/11 Jessica Cortes MD [address] [address] Internal Medicine-Rheumatology 04/26/16 Susana Garay MD [address] [facility] [address] [place], [place] [id number] Medical Oncologist Internal Medicine-Hematology and Oncology 10/14/22 documented as of this encounter
--- OUTSIDE RECORDS SUMMARY | 2024-08-22 21:35 | XMS_ITS | Encounter Summary ---
Author Organization [place] [address] Care Team Providers Care Bed Laborer Name Role Phone Julisa Kerr MD Primary Care Provider [phone] Jessica Cortes MD Unavailable [phone] Susana Garay MD Unavailable [phone] Reason for Visit * Reason Comments Follow-up Antiphospholipid syn drome Encounter Details Date Type Department Care Team (Latest Contact Info) Description 05/03/2024 11:19 AM EDT - 05/03/2024 11:59 PM EDT Hospital Encounter [facility] [address] 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; History of DVT in adulthood Discharge Disposition: Home or Self Care Social [...] Sign Reading Time Taken Comments Blood Pressure 123/80 05/03/2024 11:29 AM EDT Pulse 87 05/03/2024 11:29 AM EDT Temperature 36.3 ??C (97.4 ??F) 05/03/2024 1 1:29 AM EDT Respiratory Rate 14 05/03/2024 11:2 9 AM EDT Oxygen Saturation 95% 05/03/2024 11: 29 AM EDT Inhaled Oxygen Concentration - - Weight 63.9 kg (140 lb 12.8 oz) 024 11:29 AM EDT Height 160 cm (5' 3 ) 05/03/2024 11:29 AM EDT Body Mass Index 24.94 05/03/2024 11:29 AM EDT documented in this encounter Functional [...] 03/29/2024 4 documented as of this encounter Ordered Prescriptions Prescription Sig Dispense Quantity Refills Last Filled Start Date End Date apixaban (ELIQUIS) 5 mg Oral TabletIndications:A ntiphospholipid syndrome (HCC),History of DVT in adulthood Take 1 Tablet by mouth 2 times daily. 60 Tablet 11 05/03/2024 documented in this encounter Discharge Disposition Disposition Code Departure Means Destination Home or Self Care documented in this encounter Progress Notes * Susana Garay MD - 05/03/2024 11:30 AM EDT Images from the original note were not included. Patient: Yuliet Trevino CSN: [id number] Date of : 1970 Age: 53 y.o. Date of Service: 05/03/2024 HEMATOLOGY/ONCOLOGY FOLLOW UP VISIT Primary Oncologist: Susana Garay MD DIAGNOSIS & TREATMENT HISTORY: Oncology History Overview Note Antiphospholipid An Synd w/ RLE DVT - DVT dx 04/2022, APS w/ persistence of cardiolipin Abs, LLAC and B2GP: neg - Indefinite NOAC Cancer Staging No matching staging information was found for the patient. CURRENT TREATMENT: NOAC INTERVAL HISTORY: Yuliet Trevino is coming today for Chief Complaint Patient presents with Follow-up Antiphospholipid syndrome Presents today for f/u and labs PHYSICAL EXAM: Vitals: 05/03/24 1129 BP: 123/80 Pulse: 87 Resp: 14 Temp: 97.4 ??F (36.3 ??C) SpO2: 95% Wt Readings from Last 3 Encounters: 05/03/24 140 lb 12.8 oz (63.9 kg) 01/28/24 133 lb (60.3 kg) 01/23/24 136 lb (61.7 kg) ECO Physical Exam Constitutional: General: She is not in acute distress. Comments: Fatigue, chronically unwell appearing Pulmonary: Effort: Pulmonary effort is normal. No respiratory distress. Musculoskeletal: General: Swelling (B/L knees and ankles) and deformity (fingers) present. Neurological: Mental Status: She is alert and oriented to person, place, and time. Psychiatric: Mood and Affect: Mood and affect normal. MEDICAL DATA REVIEW: Medication, Allergies, Labs, Images, Path Reviewed. WBC Date Value Ref Range Status 05/03/2024 16.7 (H) 3.7 - 10.3 x10(3)/mcL Final 11/23/2019 7.5 X10(3)/MCL Final Hgb Date Value Ref Range Status 05/03/2024 12.2 11.2 - 15.7 g/dL Final 11/23/2019 4.96 (A) 12.0 - 16.0 GM/DL Final MCV Date Value Ref Range Status 05/03/2024 83.5 80.0 - 100.0 fL Final 11/23/2019 43.7 (A) 82.0 - 108.0 FL Final Platelet Date Value Ref Range Status 05/03/2024 390 (H) 155 - 369 x10(3)/mcL Final 11/23/2019 333 150 - 399 X10(3)/MCL Final ASSESSMENT & PLAN Yuliet Trevino was seen today for follow-up. Diagnoses and all orders for this visit: Antiphospholipid syndrome (HCC) - apixaban (ELIQUIS) 5 mg Oral Tablet; Take 1 Tablet by mouth 2 times daily. 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 Leukocytosis - reactive related to RA which cont to be active. 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 W/ only cardiolipin Abs abnl, OK to stay on NOAC (if LLAC and/or B2PG were pos or if new clot on NOAC, will need coumadin). - Indefinite NOAC Pain - Related to arthralgias Advance Directives: Living Will and POA: To be arranged Code status: To be addressed. Dispo: Return in about 1 year (around 05/03/2025) for OV, Labs - CBC, ferritin iron/uibc, B12/foalte. Thank you for the opportunity to assist in the care of this patient, please feel free to contact meif I can be of any assistance. Time spend in caring for this patient today, includes: - Chart review/preparation: 10 min - Time spent in visit: 25 min - Chart completion/collaboration with other providers: 10 min Susana Garay MD Hematology and Medical Oncology [facility] documented in this encounter Miscellaneous Notes * Addendum Note - Mary Delgado MA - 05/03/2024 11:30 AM EDTEncounter addended by: Mary Delgado MA on: 05/03/2024 3:41 PM Actions taken: Flowsheet accepted documented in this encounter Plan of Treatment Upcoming Encounters Date Type Department Care Team (Late st Contact Info) Description 08/31/2024 8:30 AM EST Appointment [facility] [place] [address] [place] [address] 10/25/2024 10:45 AM EST Office Visit [facility] [address] [place] [address] Jessica Cortes MD [address] [facility] Building [address] [place] [address] 01/25/2025 9:00 AM EDT Appointment [place] [address] [place] [address] 05/09/2025 11:00 AM EDT Appointment [place] [address] [place] [address] 05/09/2025 11:15 AM EDT Appointment [place] [address] [place] [address] Susana Garay MD [address] [place] [address] [place] [address] documented as of this encounter Goals Goal Patient Goal Type Associated Problems Recent Progress Patient-Stated? Author Maintain a healthy diet, exercise regularly and maintain an ideal body weight General Porsche Ashley RN documented as of this encounter Visit Diagnoses Diagnosis Antiphospholipid syndrome (HCC)- Primary Primary hypercoagulable state retirement (current) use of anticoagulants Long-term (current) use of anticoagulants History of DVT in adulthood documented in this encounter Discontinued Medications Medication Sig Discontinue Reason Start Date End Da te oxyCODONE (ROXICODONE) 5 mg Oral TabletIndications:S/P total left hip arthroplasty Take 1-2 Tablets by mouth every 12 hours as needed for Major Surgery/Trauma (G89.18). Stopped by patient - ineffective 02/12/2024 05/03/2024 apixaban (ELIQUIS) 5 mg Oral TabletIndications:Antip hospholipid syndrome (HCC),History of DVT in adulthood Take 1 Tablet by mouth 2 times daily. Reorder 03/29/2024 05/03/2024 documented as of this encounter Care Teams Bed Laborer Relationship Specialty Start Date End Date Julisa Kerr MD [address] [place] [address] PCP - General 02/22/11 Jessica Cortes MD [address] [address] Internal Medicine-Rheumatology 04/26/16 Susana Garay MD [address] [place] [address] Medical Oncologist Internal Medicine-Hematology and Oncology 10/14/22 documented as of this encounter
--- OUTSIDE RECORDS SUMMARY | 2024-08-22 21:35 | XMS_ITS | Encounter Summary ---
Author Organization [place] [address] Care Team Providers Care Sled Maker Name Role Phone Julisa Kerr MD Primary Care Provider [phone] Jessica Cortes MD Unavailable [phone] Susana Garay MD Unavailable [phone] Reason for Visit * Reason Onset Date Comments Medication Management 07/22/2024 Encounter Details Date Type Department Care Team (Late st Contact Info) Description 07/22/2024 Telephone [facility] Medical Oncology [place], [place] [phone] Jessica Cortes MD [address] [place] [address] Medication Management Social History Tobacco Use Types [...] Telephone Encounter - Jessica Cortes MD - 07/23/2024 11:03 AM EDT Thank you for changing therapy plan, please approve Truxima. * Telephone Encounter - Lucio Joyce PharmD - 07/23/2024 10:20 AM EDT Rituxan switched to Truxima. Thanks! Nathan * Telephone Encounter - Miri Quiñonez, Clerical Staff - 07/22/2024 2:25 PM EDT Hello, Rituxan is being denied by insurance because Truxima is the preferred. Would you be willing to switch to the preferred drug? If so please enter a new referral and I will get started on that. If you would like to do an appeal that is also an option. I have uploaded a a full copy of the denial letterintRapidEngines media. Please let me know how you plan to proceed. Thank you, Miri Greer Cancer Pre Cert Specialist documented in this encounter Plan of Treatment Upcoming Encounters Date Type Department Care Team (Late st Contact Info) Description 08/31/2024 8:30 AM EST Appointment [facility] Cancer [address] [address] 10/25/2024 10:45 AM EST Office Visit [facility] [address] [place] [address] Jessica Cortes MD [address] [facility] [facility] Building [address] [place] [address] 01/25/2025 9:00 AM EDT Appointment [address] [address] 05/09/2025 11:00 AM EDT Appointment [address] [address] 05/09/2025 11:15 AM EDT Appointment [address] [address] Susana Garay MD [address] [place] [address] [address] [place], [place] [id number] documented as of this encounter Goals Goal Patient Goal Type Associated Problems Recent Progress Patient-Stated? Author Maintain a healthy diet, exercise regularly and maintain an ideal body weight General Porsche Ashley, RN documented as of this encounter Visit Diagnoses Not on filedocumented in this encounter Care Teams Sled Maker Relationship Specialty Start Date End Date Julisa Kerr MD [address] [place] [address] PCP - General 5/27/11 Jessica Cortes MD 651 [facility] Building [address] [place] [address] Internal Medicine-Rheumatology 04/26/16 Susana Garay MD 1 [facility] [place] [address] Medical Oncologist Internal Medicine-Hematology and Oncology 10/14/22 documented as of this encounter
--- OUTSIDE RECORDS SUMMARY | 2024-08-22 21:35 | XMS_ITS | Encounter Summary ---
Author Organization [place] [address] Care Team Providers Care Quality Assurance Specialist Name Role Phone Julisa Kerr MD Primary Care Provider [phone] Jessica Cortes MD Unavailable [phone] Susana Garay MD Unavailable [phone] Encounter Details Date Type Department Care Team (Latest Contact Info) Description 05/06/2024 3:05 PM EDT - 05/06/2024 11:59 PM EDT Hospital Encounter [facility] [address] [place] [address] Jessica Cortes MD [address] [address] Acute right ankle pain Discharge Disposition: Home or Self Care Social [...] MOUTH EVERY DAY 30 Tablet 1 03/10/2024 09/17/202 4 methotrexate sodium 25 mg/mL Inj SolutionIndicatio [...] Info) Description 08/31/2024 8:30 AM EST Appointment [address] [place] [address] 10/25/2024 10:45 AM EST Office Visit [facility] [address] [place] [address] Jessica Cortes MD [address] [place] [address] 01/25/2025 9:00 AM EDT Appointment [address] [place] [address] 05/09/2025 11:00 AM EDT Appointment [address] [place] [address] 05/09/2025 11:15 AM EDT Appointment [address] [place] [address] Susana Garay MD [address] [place] [address] [place] [address] documented as of this encounter Goals Goal Patient Goal Type Associated Problems Recent Progress Patient-Stated? Author Maintain a healthy diet, exercise regularly and maintain an ideal body weight General Porsche Ashley RN documented as of this encounter Procedures Procedure Name Priority Date/Time Associated Diagnosis Comments XR ANKLE RIGHT AP LATERAL AND OBLIQUE Routine 05/06/2024 3:17 PM EDT Acute right ankle pain documented in this encounter Results * XR ANKLE RIGHT AP LATERAL AND OBLIQUE (05/06/2024 3:17 PM EDT) Anatomical Region Laterality Modality Ankle Radiographic Fallon ging 05/06/2024 3:17 PM EDT Impressions 05/06/2024 3:27 PM EDT No acute osseous abnormality of the ankle. Prominent joint effusion. Soft tissue swelling. - Note: Radiology results need to be interpreted within a comprehensive clinical context. ??If you have questions about the radiology report, please contact the office of the ordering clinician. Narrative 05/06/2024 3:27 PM EDT XR ANKLE RIGHT AP LATERAL AND OBLIQUE, ??05/06/2024 3:17 PM CLINICAL HISTORY: ??M25.571-Pain in right ankle and joints of right [id number] COMPARISON: ??06/19/2022 PROCEDURE COMMENTS: XR ANKLE RIGHT AP LATERAL AND OBLIQUE FINDINGS: The ankle mortise is congruent and there is no fracture. Prominent joint effusion. Soft tissue swelling.. Joint spaces overall well-maintained. No periostitis. Procedure Note Praveen Cramer MD - 05/06/2024 XR ANKLE RIGHT AP LATERAL AND OBLIQUE, 05/06/2024 3:17 PM CLINICAL HISTORY: M25.571-Pain in right ankle and joints of right [id number] COMPARISON: 06/19/2022 PROCEDURE COMMENTS: XR ANKLE RIGHT AP LATERAL AND OBLIQUE FINDINGS: The ankle mortise is congruent and there is no fracture.Prominent joint effusion. Soft tissue swelling.. Joint spaces overall well-maintained. No periostitis. IMPRESSION: No acute osseous abnormality of the ankle. Prominent joint effusion. Softtissue swelling. - Note: Radiology results need to be interpreted within a comprehensiveclinical context. If you have questions about the radiology report, please contactthe office of the ordering clinician. Jhon Peña STONE LATHE OPERATOR IMG DIAGNOSTIC IMAGING ORDER RAHEEL Final Result documented in this encounter Visit Diagnoses Diagnosis Acute right ankle pain documented in this encounter Care Teams Quality Assurance Specialist Relationship Specialty Start Date End Date Julisa Kerr MD 100 [place] [address] PCP - General 02/22/11 Jessica Cortes MD 651 [facility] [address] [place] [address] Internal Medicine-Rheumatology 04/26/16 Susana Garay MD [address] [place] [address] [place] [address] Medical Oncologist Internal Medicine-Hematology and Oncology 10/14/22 documented as of this encounter
--- OUTSIDE RECORDS SUMMARY | 2024-08-22 21:35 | XMS_ITS | Encounter Summary ---
Author Organization [place] [address] Care Team Providers Care Machine Printer Name Role Phone Julisa Kerr MD Primary Care Provider [phone] Jessica Cortes MD Unavailable [phone] Susana Garay MD Unavailable [phone] Reason for Visit * Reason Comments Annual Exam Rheumatoid Arthritis Encounter Details Date Type Department Care Team (Late st Contact Info) Description 05/03/2024 1:15 PM EDT Office Visit [facility] [address] [place] [phone] Jhon Peña, GRADE TAMPER [address] [place] [address] Annual physical exam (Primary Dx); Acute right ankle pain; Rheumatoid arthritis involving multiple sites with positive rheumatoid factor (HCC); Acute bilateral low back pain without sciatica; Irritable bowel syndrome with constipation and diarrhea; History of DVT (deep vein thrombosis); Antiphospholipid syndrome (HCC); Anxiety Social History Tobacco Use Types Packs/Day Years [...] Sign Reading Time Taken Comments Blood Pressure 110/70 05/03/2024 1:07 PM EDT Pulse - - Temperature 36.4 ??C (97.6 ??F) 05/03/2024 1:07 PM ED T Respiratory Rate - - Oxygen Saturation - - Inhaled Oxygen Concentration - - Weight 64 kg (141 lb) 05/03/2024 1:07 PM EDT Height 160 cm (5' 3 ) 05/03/2024 1:07 PM EDT Body Mass Index 24.98 05/03/2024 1:07 PM EDT documented in this encounter Functional [...] Refills Last Filled Start Date End Date linaCLOtide (LINZESS) 290 mcg Oral CapsuleIndications :Irritable bowel syndrome with constipation and diarrhea Take 1 Capsule by mouth before breakfast. 90 Capsule 3 05/03/2024 hydrOXYzine (ATARAX) 25 mg Oral TabletIndications: Anxiety Take 1 Tablet by mouth 3 times daily as needed. 90 Tablet 2 05/03/2024 gabapentin (NEURONTIN) 600 mg Oral TabletIndications: Rheumatoid arthritis involving multiple sites with positive rheumatoid factor (HCC),Acute bilateral low back pain without sciatica Take 1 Tablet by mouth 2 times daily. 60 Tablet 1 05/03/2024 documented in this encounter Progress Notes * Jhon Peña, GRADE TAMPER - 05/03/2024 1:15 PM EDT Vitals: 05/03/24 1307 BP: 110/70 Temp: 97.6 ??F (36.4 ??C) TempSrc: Temporal Weight: 141 lb (64 kg) Height: 5' 3 (1.6 m) Body mass index is 24.98 kg/m??. SUBJECTIVE: Chief Complaint Patient presents with Annual Exam Rheumatoid Arthritis HPI: Well Adult: Subjective Ms. Newsome is a 53 y.o. female here for an annual wellness visit. Diet: good Exercise: work related Activities of Daily Living: Functional Level: Self-care ADL Limitations: none Social Interaction Screen: Do you have concerns about issues that may impact social interaction such as developmental or behavioral/mental health conditions? no Health Maintenance Due Topic Date Due Colon Cancer Screening 11/28/2023 Annual Wellness Exam 03/24/2024 Health Maintenance Topic Date Due Colon Cancer Screening 11/28/2023 Annual Wellness Exam 03/24/2024 COVID-19 Vaccine ( - 2022-24 season) 2024 (Originally 05/30/2023) Hepatitis B Vaccine (1 of 3 - 19+ 3-dose series) 06/10/2024 (Originally 1989) Influenza Vaccine (1) 05/30/2024 Breast Cancer Screening 02/10/2026 DTaP/TDaP/Td (7 - Td or Tdap) 07/01/2032 Zoster Completed Immunization History Administered Date(s) Administered DTaP, Unspecified Formulation 1970, 1970, 01/27/1971, 09/29/1972, 08/29/1973, 08/29/1974 Influenza Vaccine Quadrivalent 07/01/2017 Influenza Vaccine Quadrivalent PF 06/19/2018 Influenza Vaccine, Unspecified Formulation 06/19/2018, 07/16/2019 Influenza, Injectable, MDCK, PF, Quadrivalent 07/14/2019, 07/01/2022, 07/28/2023 Measles 04/02/1972 Mumps 11/27/1972 PPD Test 05/13/2013, 07/21/2014, 09/18/2015, 03/10/2017, 05/26/2018 Pneumococcal Conjugate Vaccine 13 Valent 12/13/2016 Pneumococcal Polysaccharide 23 Valent 03/17/2017, 07/01/2022 Polio, Unspecified Formulation 02/27/1971, 09/29/1972, 03/29/1973, 08/29/1973, 08/29/1974 Rubella 05/12/1972 Td, Unspecified Formulation 06/09/1985 Tdap 07/01/2022 Zoster Recombinant 02/21/2023, 04/30/2023 Patient Active Problem List Diagnosis PRAVEEN (stress urinary incontinence, female) Raynaud's phenomenon Rheumatoid arthritis involving multiple sites with positive rheumatoid factor (HCC) Osteopenia Immunocompromised patient (HCC) Vitamin B 12 deficiency Positive BRET (antinuclear antibody) Neck pain Antiphospholipid syndrome (HCC) Right leg DVT (HCC) Degenerative joint disease of cervical spine Age-related osteoporosis without current pathological fracture Primary osteoarthritis of left hip Past Medical History: Diagnosis Date Antiphospholipid syndrome (HCC) Arthritis DVT (deep venous thrombosis) (HCC) 06/08/2022 Right Past Surgical History: Procedure Laterality Date HYSTEROSCOPY IR 2 LEVEL TRANSFORAMINAL EPIDURAL INJ CERVICAL SPINE 06/2021 BARBIE AND BSO 09/29/2000 TOTAL HIP ARTHROPLASTY Left 01/30/2024 TOTAL KNEE ARTHROPLASTY Right 08/21/2023 Allergies Allergen Reactions Orencia [Abatacept (With Maltose)] [...] INTO MUSCLE EVERY MONTH 1 mL 11 golimumab (SIMPONI) 100 mg/mL SubQ Pen Injector Inject 1 pen under the skin every 30 days. 1 mL 2 leflunomide (ARAVA) 20 mg Oral Tablet TAKE 1 TABLET BY MOUTH EVERY DAY 30 Tablet 1 methotrexate sodium 25 mg/mL Inj Solution SUBCUTANEOUS (INJECT UNDER THE SKIN) 0.8 ML ONCE A WEEK. 4 mL 1 predniSONE (DELTASONE) 5 mg Oral Tablet TAKE 1 TABLET BY MOUTH EVERY DAY 30 Tablet 1 No current facility-administered medications on file prior to visit. Social History Socioeconomic History Marital status: Spouse name: None Number of children: None Years of education: None Highest education level: None Tobacco Use Smoking status: Never Passive exposure: Never Smokeless tobacco: Never Vaping Use Vaping status: Never Used Substance and Sexual Activity Alcohol use: Yes Comment: occasional Drug use: No Sexual activity: Yes Family History Problem Relation Age of Onset Arthritis Father Arthritis Paternal Grandmother No results found. No results found for this visit on 05/03/24. Patient Care Team: Julisa Kerr MD as PCP - General Jessica Cortes MD (Internal Medicine-Rheumatology) Susana Garay MD as Medical Oncologist (Internal Medicine-Hematology and Oncology) Lab Results Component Value Date WBC 16.7 (H) 05/03/2024 HGB 12.2 05/03/2024 HCT 40.6 05/03/2024 PLT 390 (H) 05/03/2024 CHOLESTEROL 165 03/24/2023 TRIG 160 (H) 03/24/2023 HDL 41 03/24/2023 LDLCALC 96 03/24/2023 ALT 22 04/27/2024 AST 26 04/27/2024 NA 136 04/27/2024 K 4.8 04/27/2024 CL 98 04/27/2024 CREATININE 0.92 04/27/2024 BUN 9 04/27/2024 CO2 24 04/27/2024 TSH 1.350 09/20/2015 INR 0.96 01/28/2024 GLUCOSE 83 11/23/2019 GLU 167 (H) 04/27/2024 HGBA1C 5.6 06/06/2022 TSHREFLEX 1.130 05/14/2023 Additional issues addressed today: Joint Swelling The pain is present in the right ankle. This is a chronic problem. The current episode started in the past 7 days. There has been no history of extremity trauma. The problem occurs constantly. The problem has been gradually worsening. The quality of the pain is described as aching, burning and sharp. The pain is at a severity of 10/10. The pain is severe. Associated symptoms include an inability to bear weight, joint swelling, numbness, stiffness and tingling. Pertinent negatives include no fever. The symptoms are aggravated by activity, standing and lying down. She has tried oral narcotics (elevation) for the symptoms. The treatment provided no relief. Her past medical history is significant for rheumatoid arthritis. Also with right ankle pain with edema, decreased ROM intermittently over the last week. Denies injury to site. ARTHRITIS Joints swelling and tenderness comes and goes. Bad weather makes pain worse. severe and increasing No signs or symptoms of medication problems. Controlled Substance Prescribing Management: As part of today's visit Yuliet is also being followed for controlled substance management for rheumatoid arthritis . Details of the progress of the monitored condition are noted in that section of the HPI. The controlled substance flow sheet has been reviewed. Review of Systems Constitutional: Negative for chills and fever. HENT: Negative for congestion, ear discharge and ear pain. Eyes: Negative for pain, discharge and itching. Respiratory: Negative for cough, shortness of breath and wheezing. Cardiovascular: Negative for chest pain and palpitations. Gastrointestinal: Negative for abdominal distention and abdominal pain. Genitourinary: Negative for difficulty urinating, dysuria and hematuria. Musculoskeletal: Positive for arthralgias, gait problem, joint swelling and stiffness. Negative forback pain. Skin: Negative for rash and wound. Neurological: Positive for tingling and numbness. Negative for dizziness, light- headedness and headaches. Psychiatric/Behavioral: The patient is not nervous/anxious. OBJECTIVE: Physical Exam Constitutional: General: She is not in acute distress. Appearance: She is well-developed. She is not diaphoretic. HENT: Head: Normocephalic and atraumatic. Right Ear: External ear normal. Left Ear: External ear normal. Nose: Nose normal. Mouth/Throat: Pharynx: No oropharyngeal exudate. Eyes: General: Right eye: No discharge. Left eye: No discharge. Conjunctiva/sclera: Conjunctivae normal. Pupils: Pupils are equal, round, and reactive to light. Neck: Vascular: No JVD. Cardiovascular: Rate and Rhythm: Normal rate and regular rhythm. Heart sounds: Normal heart sounds. No murmur heard. Pulmonary: Effort: Pulmonary effort is normal. No respiratory distress. Breath sounds: Normal breath sounds. No wheezing or rales. Chest: Chest wall: No tenderness. Abdominal: General: Bowel sounds are normal. There is no distension. Palpations: Abdomen is soft. There is no mass. Tenderness: There is no abdominal tenderness. There is no guarding or rebound. Musculoskeletal: Cervical back: Normal range of motion and neck supple. Right ankle: Swelling present. Tenderness present. Decreased range of motion. Skin: General: Skin is warm and dry. Findings: No rash. Neurological: Mental Status: She is alert and oriented to person, place, and time. Psychiatric: Behavior: Behavior normal. Thought Content: Thought content normal. Judgment: Judgment normal. Assessment Diagnoses and all orders for this visit: Annual physical exam - HEMOGLOBIN A1C; Future - THYROID STIMULATING HORMONE; Future - LIPID SCREEN; Future Acute right ankle pain - XR ANKLE RIGHT AP AND LATERAL; Future - methylPREDNISolone acetate (DEPO-Medrol) injection 80 mg Rheumatoid arthritis involving multiple sites with positive rheumatoid factor (HCC) - methylPREDNISolone acetate (DEPO-Medrol) injection 80 mg - gabapentin (NEURONTIN) 600 mg Oral Tablet; Take 1 Tablet by mouth 2 times daily. Dispense: 60 Tablet; Refill: 1 Acute bilateral low back pain without sciatica - gabapentin (NEURONTIN) 600 mg Oral Tablet; Take 1 Tablet by mouth 2 times daily. Dispense: 60 Tablet; Refill: 1 Irritable bowel syndrome with constipation and diarrhea - linaCLOtide (LINZESS) 290 mcg Oral Capsule; Take 1 Capsule by mouth before breakfast. Dispense: 90 Capsule; Refill: 3 History of DVT (deep vein thrombosis) Comments: -Stable. Continue med. Antiphospholipid syndrome (HCC) (Chronic) Comments: -Stable. Continue med. Anxiety - hydrOXYzine (ATARAX) 25 mg Oral Tablet; Take 1 Tablet by mouth 3 times daily as needed. Dispense:90 Tablet; Refill: 2 documented in this encounter Plan of Treatment Upcoming Encounters Date Type Department Care Team (Late st Contact Info) Description 08/31/2024 8:30 AM EST Appointment [place] [address] [place] [address] 10/25/2024 10:45 AM EST Office Visit [facility] [address] [place] [address] Jessica Cortes MD [address] [place] [address] 01/25/2025 9:00 AM EDT Appointment [place] [address] [place] [address] 05/09/2025 11:00 AM EDT Appointment [address] [place] [address] [place] [address] 05/09/2025 11:15 AM EDT Appointment [address] [place] [address] [place] [address] Susana Garay MD [address] [place] [address] [place] [address] documented as of this encounter Goals Goal Patient Goal Type Associated Problems Recent Progress Patient-Stated? 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 RN documented as of this encounter Results * (ABNORMAL) LIPID SCREEN (05/06/2024 3:08 PM EDT) Cholesterol 190 <200 mg/dL 05/06/2024 11:28 PM EDT [facility]REFERRED [facility] Comment: < 200 ?Desirable 200 - 239 ? Borderline High >= 240 ?High Triglyceride 149 <150 mg/dL 05/06/2024 11:28 PM EDT [facility] Comment: < 150 ? Normal 150 - 199 ?Borderline High 200 - 499 ?High ??>= 500 ? Very High HDL 55 >=40 mg/dL 05/06/2024 11:28 PM EDT [facility] Comment: ??> 60 ?Optimal 40 - 60 ?Acceptable ?? < 40 ?Low LDL Calculated 109(H) <100 mg/dL 05/06/2024 11:28 PM EDT [facility] Comment: < 100 ?Optimal 100 - 129 ? Near or above optimal 130 - 159 ? Borderline High 160 - 189 ? High >= 190 ?Very High Non-HDL-C Calculated 135(H) <=129 mg/dL 05/06/2024 11:28 PM EDT [facility] Comment: <130 ?Desirable 130-159 Above Desirable 160-189 Borderline High 190-219 High >= 220 ??Very High Fasting Specimen? No None 024 11:28 PM EDT [facility] Blood VENOUS BLOOD / Unknown Venipuncture / Unknown 05/06/2024 3:08 PM EDT 05/06/2024 3:08 PM EDT Jhon Peña GRADE TAMPER CHEMISTRY ORDERABLES Final R esult Performing Organization Address [facility]/State/[facility] Co de Phone Number [facility] [address] , [address] [place] [id number] [facility] [address] [place], [place] [id number] * THYROID STIMULATING HORMONE (05/06/2024 3:08 PM EDT) [facility] TSH 0.434 0.270 - 4.200 mcIU/mL 05/06/2024 11:28 PM EDT [facility] Blood VENOUS BLOOD / Unknown Venipuncture / Unknown 05/06/2024 3:08 PM EDT 05/06/2024 3:08 PM EDT Narrative [facility] - 05/06/2024 11:28 PM EDT Ingestion of beverley doses of biotin (>5 mg/day) taken within 8 hours of drawing blood sample can interfere with this immunoassay test. Jhon Peña APRN CHEMISTRY ORDERABLES Final R esult [facility] [address] , [place] [address] * (ABNORMAL) HEMOGLOBIN A1C (05/06/2024 3:08 PM EDT) Hgb A1C 6.1(H) 4.2 - 5.6 % 05/06/2024 8:04 PM EDT [facility] Est. Avg Glucose 128 mg/dL 05/06/2024 8:04 PM EDT [facility] Blood VENOUS BLOOD / Unknown Venipuncture / Unknown 05/06/2024 3:08 PM EDT 05/06/2024 3:08 PM EDT Narrative [facility] - 05/06/2024 8:04 PM EDT REFERENCE RANGE: Normal: 4.0-5.6% Pre-diabetes: 5.7-6.4% Provisional diagnosis of diabetes: >6.4% Hgb F>10% and anything which shortens red cell survival, such as hemolytic anemia, or unstable hemoglobin variants such as HbSS, HbSC, or HbCC, will lower the HbA1c value associated with a given level of glycemic control. ? Jhon Peña APRN CHEMISTRY ORDERABLES Final R esult Performing Organization Address City/[facility]/ZIP Co de Phone Number [facility] [address] , [address] [place] [phone] [facility] [address] [place] [phone] documented in this encounter Visit Diagnoses Diagnosis Annual physical exam- Primary Routine general medical examination at a health care facility Acute right ankle pain Rheumatoid arthritis involving multiple sites with positive rheumatoid factor (HCC) Acute bilateral low back pain without sciatica Irritable bowel syndrome with constipation and diarrhea Irritable bowel syndrome History of DVT (deep vein thrombosis) Personal history of venous thrombosis and embolism Antiphospholipid syndrome (HCC) Primary hypercoagulable state Anxiety Anxiety state, unspecified documented in this encounter Administered Medications Inactive Administered Medications - up to 1 most recent administrations Medication Order MAR Action Action Date Dose Rate Site methylPREDNISolone acetate (DEPO-Medrol) injection 80 mg 80 mg, Intramuscular, ONCE, 1 dose, On Fri05/03/24 at 1330, Dx: 1. Rheumatoid arthritis involving multiple sites with positive rheumatoid factor (HCC) 2. Acute right ankle painIndications:Rheumat oid arthritis involving multiple sites with positive rheumatoid factor (HCC),Acute right ankle pain Given 05/03/2024 1:41 PM EDT 80 mg Left Upper Outer Quadrant documented in this encounter Discontinued Medications Medication Sig Discontinue Reason Start Date End Da te gabapentin (NEURONTIN) 600 mg Oral TabletIndications:Rheumat oid arthritis involving multiple sites with positive rheumatoid factor (HCC),Acute bilateral low back pain without sciatica TAKE 1 TABLET BY MOUTH TWICE A DAY Reorder 03/29/2024 05/03/2024 linaCLOtide (LINZESS) 290 mcg Oral CapsuleIndications:Irrita ble bowel syndrome with constipation and diarrhea Take 1 Capsule by mouth before breakfast. Reorder 10/29/2023 05/03/2024 hydrOXYzine (ATARAX) 25 mg Oral TabletIndications:Itching TAKE 1 TABLET BY MOUTH THREE TIMES A DAY NEEDED Reorder 03/11/2024 05/03/2024 documented as of this encounter Care Teams Machine Printer Relationship Specialty Start Date End Date Julisa Kerr MD [address] [place] [address] PCP - General 02/22/11 Jessica Cortes MD [address] [address] Internal Medicine-Rheumatology 04/26/16 Susana Garay MD [address] [place] [address] [place] [address] Medical Oncologist Internal Medicine-Hematology and Oncology 10/14/22 documented as of this encounter
--- OUTSIDE RECORDS SUMMARY | 2024-08-22 21:35 | XMS_ITS | Encounter Summary ---
Author Organization [place] [address] Care Team Providers Care Sales And Leasing Consultant Name Role Phone Julisa Kerr MD Primary Care Provider [phone] Jessica Cortes MD Unavailable [phone] Susana Garay MD Unavailable [phone] Reason for Visit * Reason Onset Date Comments Medication Management 05/17/2024 gabapentin (NEURONTIN) 600 mg Oral Tablet Encounter Details Date Type Department Care Team (Late st Contact Info) Description 05/17/[address] [facility] [address] [place] [address] Julisa Kerr MD [address] [place], [place] [id number] Medication Management (gabapentin (NEURONTIN) 600 mg Oral Tablet) Social History Tobacco Use Types Packs/Day Years [...] 3:24 PM EDT Luciano Kenney JARROD * Is the person blind or does [...] 12/08/2023 3:24 PM EDT Luciano Kenney RMCarlene documented as of this encounter Mental Status * Because of a physical, mental or emotional condition, does this person have serious difficulty concentrating, remembering or making decisions? Answer Entry Date Author No 12/08/2023 3:24 PM EDT Luciano Kenney JARROD documented in this encounter Miscellaneous Notes * Telephone Encounter - Khadijah Gorman RMA - 05/17/2024 5:22 PM EDT Left message. * Telephone Encounter - Jhon Peña APRN - 05/17/2024 5:17 PM EDT Only has to be seen in office every 6 months for gabapentin refills, can request refills through her pharmacy. * Telephone Encounter - Teresa Weber - 05/17/2024 1:58 PM EDT Select the most appropriate reason for this telephone message: Medication Management/Problem Who is calling? Patient What medication(s) do you have concerns about: Disp Refills Start End gabapentin (NEURONTIN) 600 mg Oral Tablet 60 Tablet 1 05/03/2024 -- Sig - Route: Take 1 Tablet by mouth 2 times daily. - Oral Sent to pharmacy as: gabapentin 600 mg tablet (NEURONTIN) Notes to Pharmacy: Not to exceed 4 additional fills before 07/26/2024 E-Prescribing Status: Receipt confirmed by pharmacy (05/03/2024 1:29 PM EDT) Prescribing provider: Casey What are your concerns/request: pt is about to loose her insurance she would like to know if this could be for 3 mnths refills so she doesn't have to come in as often since she will be paying out of pocket [facility] Additional notes: documented in this encounter Plan of Treatment Upcoming Encounters Date Type Department Care Team (Late st Contact Info) Description 08/31/2024 8:30 AM EST [address] [place] [address] 10/25/2024 10:45 AM EST Office Visit [facility] [address] [place] [address] Jessica Cortes MD [address] [facility] [address] [place] [address] 01/25/2025 9:00 AM EDT [address]ointment [address] [place] [address] 05/09/2025 11:00 AM EDT [address]ointment [address] [place] [address] 05/09/2025 11:15 AM EDT [address]ointment [address] [place] [address] Susana Garay MD [address] [facility] [place] [address] documented as of this encounter Goals Goal Patient Goal Type Associated Problems Recent Progress Patient-Stated? 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, RN documented as of this encounter Visit Diagnoses Not on filedocumented in this encounter Care Teams Sales And Leasing Consultant Relationship Specialty Start Date End Date Julisa Kerr MD [address] [place] [address] PCP - General 02/22/11 Jessica Cortes MD [address] [facility] [address] [place] [address] Internal Medicine-Rheumatology 04/26/16 Susana Garay MD [address] [place] [address] Medical Oncologist Internal Medicine-Hematology and Oncology 10/14/22 documented as of this encounter
--- OUTSIDE RECORDS SUMMARY | 2024-08-22 21:35 | XMS_ITS | Encounter Summary ---
Author Organization [facility] Address [address] [place] [address] Care Team Providers Care Cat Hooker Name Role Phone Julisa Kerr MD Primary Care Provider [phone] Jessica Cortes MD Unavailable [phone] Susana Garay MD Unavailable [phone] Reason for Referral * MRI/CAT Scan (Routine) - Closed Specialty Diagnoses / Procedures Referred By Contac t Referred To Contact Radiology Diagnoses Right ankle pain, unspecified chronicity Right ankle swelling Procedures MRI ANKLE RIGHT WO CONTRAST Josephine Cotton DO [address] [place] [address] Phone: tel: fax: [facility] MRI [address] [facility] [place] [address] Phone: tel: Referral ID Status Reason Start Date Expiration Date Visits Re quested Visits Authorized [id number] Closed 05/17/2024 05/17/2025 1 1 Reason for Visit * Reason Comments Pain Encounter Details Date Type Department Care Team (Late st Contact Info) Description 05/17/2024 1:00 [place] [address] Josephine Cotton DO [address] [place] [address] Right ankle pain, unspecified chronicity (Primary Dx); Right ankle swelling Social History Tobacco Use Types Packs/Day Years [...] documented in this encounter Progress Notes * Josephine Cotton DO - 05/17/2024 1:00 PM EDT Images from the original note were not included. PATIENT NAME: Yuliet Trevino DATE OF (age): 53 y.o. PHYSICIAN: Josephine Cotton DO Date of Visit: 05/17/2024 Subjective: Chief Complaint: Chief Complaint Patient presents with ??? Right Ankle - Pain History: Yuliet Trevino is a 53 y.o. yo female. Patient is here today for right ankle pain and swelling is been ongoing for a month without a specific injury or trauma. States the pain is most located over the lateral anterior aspect of the ankle. She does take steroids on a regular basis dueto her RA and is even up the doses and that has not helped. States over the weekend it was so bad she had to use her walker but today feeling a little bit better. Past Medical History: Reviewed registration form and medical history. Past Surgical History: Reviewed registration form and medical history. Family History: Reviewed registration form and medical history. Social History: Reviewed registration form and medical history. Review of Systems: Reviewed registration form and medical history. Objective: General: Well-appearing with appropriate affect. No acute distress.normal body habitus. Appears stated age. Head: Normocephalic atraumatic Ears and Nose: External appearance is normal. Skin: Warm and dry. Color natural. Neuro: Alert and orientated to person,place and time. Normal neurosensory response to touch. Pulmonary: Respirations are unlabored and regular. Chest expansion appears symmetic. Cardiovascular: No signs of peripheral edema. Gait: Walks with a antalgic gait. Psychiatric: Mood is appropriate for circumstances. Ortho Exam: Right foot and ankle exam: There is swelling through the lateral ankle with tenderness palpation posterior and inferior to the lateral malleolus to the peroneals. No tenderness to the cuboid or navicular. There is discomfort at the base of the fifth metatarsal. There is pain with eversion and inversion but no issues with dorsiflexion or plantarflexion. Pes planus Assessment and Plan: Right ankle pain and swelling concern for peroneal injury: At this time we will go ahead and place the patient an MRI order to further evaluate for pathology causing her pain and swelling. We discussed getting power step orthotics to help with her lack of arch. I will see her back once the MRI is complete to discuss further intervention. Patient was in agreement with these plans. Diagnoses and all orders for this visit: Right ankle pain, unspecified chronicity - MRI ANKLE RIGHT WO CONTRAST; Future Right ankle swelling - MRI ANKLE RIGHT WO CONTRAST; Future Imaging results: Results for orders placed during the hospital encounter of 05/06/24 XR ANKLE RIGHT AP LATERAL AND OBLIQUE Narrative XR ANKLE RIGHT AP LATERAL AND OBLIQUE, 05/06/2024 3:17 PM CLINICAL HISTORY: M25.571-Pain in right ankle and joints of right ucfu-HFA-82-CM COMPARISON: 06/19/2022 PROCEDURE COMMENTS: XR ANKLE RIGHT AP LATERAL AND OBLIQUE FINDINGS: The ankle mortise is congruent and there is no fracture. Prominent joint effusion. Soft tissue swelling.. Joint spaces overall well-maintained. No periostitis. Impression No acute osseous abnormality of the ankle. Prominent joint effusion. Soft tissue swelling. - Note: Radiology results need to be interpreted within a comprehensive clinical context. If you have questions about the radiology report, please contact the office of the ordering clinician. DME Summary No orders found for display Josephine Cotton DO Parts of this note may have been created by a chart review, combined by taking my own patient history. The patient was physically seen and examined by myself, including a personal review of images, tests, and formation of the impression and plan. In addition, this note may been dictated utilizing voice recognition software. Unfortunately this leads to occasional typographical errors. I apologize in advance if the situation occurs. If questions occur please do not hesitate to call our office. The patient was advised to call with any issues or concerns in the future. documented in this encounter Plan of Treatment Upcoming Encounters Date Type Department Care Team (Late st Contact Info) Description 08/31/2024 8:30 AM EST Appointment [address] [place] [address] 10/25/2024 10:45 AM EST Office Visit [facility] [address] [place] [address] Jessica Cortes MD [address] [facility] [address] [place] [address] 01/25/2025 9:00 AM EDT Appointment [address] [place] [address] 05/09/2025 11:00 AM EDT Appointment [facility] [place] [address] [address] 05/09/2025 11:15 AM EDT Appointment [facility] [place] [address] [address] Susana Garay MD [address] [place] [address] [place] [address] documented as of this encounter Goals Goal Patient Goal Type Associated Problems Recent Progress Patient-Stated? 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 RN documented as of this encounter Results * MRI ANKLE RIGHT WO CONTRAST (05/18/2024 3:37 PM EDT) Anatomical Region Laterality Modality Ankle, Ankle Joint Magnetic Reso nance 05/18/2024 3:37 PM EDT Impressions 05/18/2024 4:13 PM EDT 1. ??Nonspecific tibiotalar synovitis with significant synovial thickening/proliferation and moderate joint effusion. There is relatively symmetric joint space narrowing. This appearance raises the possibility of a inflammatory or crystalline arthropathy. No osseous erosions visible. 2. ??Moderate midfoot arthritic changes. 3. ??Probable mild tendinopathy of the posterior tibialis tendon. No discrete tear. Peroneal tendons are intact. - Note: Radiology results need to be interpreted within a comprehensive clinical context. ??If you have questions about the radiology report, please contact the office of the ordering clinician. Narrative 05/18/2024 4:13 PM EDT MRI ANKLE RIGHT WO CONTRAST ??05/18/2024 3:37 PM ?? CLINICAL HISTORY: ??M25.571-Pain in right ankle and joints of right juwt-UHA-68-CM M25.471-Effusion, right ljgar-ONH-33-CM COMPARISON: None TECHNIQUE: Multiplanar, multisequence MR images [...] intact. OTHER: The plantar fascia is intact. Procedure Note Carlitos Pena MD - 05/18/2024 MRI ANKLE RIGHT WO CONTRAST 05/18/2024 3:37 PM CLINICAL HISTORY: M25.571-Pain in right ankle and joints of right jemz-AUF-34-CM M25.471-Effusion, right huqzo-SYS-93-CM COMPARISON: None TECHNIQUE: Multiplanar, multisequence MR images of the right ankle wereobtained without the use of contrast. FINDINGS: BONES & JOINTS: There is proliferation and marked synovial thickening atthe tibiotalar joint with a moderate-sized joint effusion. There tibiotalarjoint space narrowing which appears relatively symmetric. No osteochondrallesion identified. There are additional arthritic changes noted in the midfootwith mild reactive marrow signal changes. No osseous erosions. MEDIAL STRUCTURES: Deltoid ligament complex is intact. Mild tendinopathyof the posterior tibialis tendon without discrete tear. Patellas lungs inflated digitorum longus tendons are intact. LATERAL STRUCTURES: The syndesmotic ligaments are intact. The lateral ligamentous complex is intact. The peroneal tendons are intact andlocated within the retromalleolar groove. ANTERIOR/POSTERIOR STRUCTURES: The tibialis anterior tendon is intact.The Achilles tendon is intact. OTHER: The plantar fascia is intact. IMPRESSION: 1. Nonspecific tibiotalar synovitis with significant synovial thickening/proliferation and moderate joint effusion. There isrelatively symmetric joint space narrowing. This appearance raises the possibility ofa inflammatory or crystalline arthropathy. No osseous erosions visible. 2. Moderate midfoot arthritic changes. 3. Probable mild tendinopathy of the posterior tibialis tendon. Nodiscrete tear. Peroneal tendons are intact. - Note: Radiology results need to be interpreted within a comprehensiveclinical context. If you have questions about the radiology report, please contactthe office of the ordering clinician. us Josephine Cotton DO IMG MRI ORDERABLES Final Resul t documented in this encounter Visit Diagnoses Diagnosis Right ankle pain, unspecified chronicity- Primary Right ankle swelling Effusion of ankle and foot joint Right ankle pain, unspecified chronicity Right ankle swelling Effusion of ankle and foot joint documented in this encounter Care Teams Cat Hooker Relationship Specialty Start Date End Date Julisa Kerr MD [address] [place] [address] PCP - General 02/22/11 Jessica Cortes MD [address] [address] Internal Medicine-Rheumatology 04/26/16 Susana Garay MD [address] [place] [address] Medical Oncologist Internal Medicine-Hematology and Oncology 10/14/22 documented as of this encounter
--- OUTSIDE RECORDS SUMMARY | 2024-08-22 21:35 | XMS_ITS | Encounter Summary ---
Author Organization [facility] [place] [address] [place] [address] Care Team Providers Care Recreation Therapy Aides Teacher Name Role Phone Julisa Kerr MD Primary Care Provider [phone] Jessica Cortes MD Unavailable [phone] Susana Garay MD Unavailable [phone] Reason for Visit * Reason Comments Pharmacy Rheumatology Management Simp[facility] Encounter Details Date Type Department Care Team (Latest Contact Info) Description 07/16/2024 Specialty Pharmacy [facility] [address] [id number] Mikaela Forbes CPhT Pharmacy Rheumatology Management (Sim[facility]) Social History [...] documented in this encounter Progress Notes * Mikaela Forbes CPhT - 07/16/2024 10:21 AM EDT Specialty Pharmacy Refill Coordination Note Contacted Yuliet Trevino today regarding refill of Simponi. Copay is $0 for 30 day supply. Sent SmartRx message. Patient informed of copay. * Armando Caba CPhT - 07/16/2024 10:21 AM EDT Specialty Pharmacy Refill Coordination Note Contacted Yuliet Trevino today regarding refills of Simponi. Medication to be delivered by [facility] on 07/20. Copay amount: $0 for 30 d/s Sent SmartRx message. Patient informed of copay. Simponi: Not clinically followed documented in this encounter Plan of Treatment Upcoming Encounters Date Type Department Care Team (Late st Contact Info) Description 08/31/2024 8:30 AM EST Appointment [facility] Cancer [address] [place] [address] 10/25/2024 10:45 AM EST Office Visit [facility] [address] [facility] [address] [place] [address] Jessica Cortes MD [address] [facility] [address] [place] [address] 01/25/2025 9:00 AM EDT [address]ointment [address] [place] [address] 05/09/2025 11:00 AM EDT Appointment [address] [place] [address] 05/09/2025 11:15 AM EDT Appointment [address] [place] [address] Susana Garay MD [address] [place] [address] [address] [id number] documented as of this encounter Goals Goal Patient Goal Type Associated Problems Recent Progress Patient-Stated? Author Maintain a healthy diet, exercise regularly and maintain an ideal body weight General Porsche Ashley, RN documented as of this encounter Visit Diagnoses Not on filedocumented in this encounter Care Teams Recreation Therapy Aides Teacher Relationship Specialty Start Date End Date Julisa Kerr MD [address] [place] [address] PCP - General 02/22/11 Jessica Cortes MD [address] [facility] 19 [place] [address] Internal Medicine-Rheumatology 04/26/16 Susana Garay MD [address] [place] [address] [place] [address] Medical Oncologist Internal Medicine-Hematology and Oncology 10/14/22 documented as of this encounter
--- OUTSIDE RECORDS SUMMARY | 2024-08-22 21:35 | XMS_ITS | Encounter Summary ---
Author Organization [facility] [place] [place] [address] Care Team Providers Care Physical Security Manager Name Role Phone Julisa Kerr MD Primary Care Provider [phone] Jessica Cortes MD Unavailable [phone] Susana Garay MD Unavailable [phone] Encounter Details Date Type Department Care Team (Latest Contact Info) Description 07/28/2024 Travel Social History Tobacco Use Types Packs/Day Years [...] Assessment Author No 12/08/2023 3:24 PM EDT uLciano Kenney RMA * Does this person have [...] Luciano Kenney RMA documented in this encounter Plan of Treatment Upcoming Encounters Date Type Department Care Team (Late st Contact Info) Description 08/31/2024 8:30 AM EST Appointment [address] [place] [address] 10/25/2024 10:45 AM EST Office Visit [facility] [address] [place] [address] Jessica Cortes MD [address] [place] [address] 01/25/2025 9:00 AM EDT Appointment [address] [place] [address] 05/09/2025 11:00 AM EDT Appointment [address] [place] [address] 05/09/2025 11:15 AM EDT Appointment [address] [place] [address] Susana Garay MD [address] [place] [address] [place] [address] documented as of this encounter Goals Goal Patient Goal Type Associated Problems Recent Progress Patient-Stated? 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, RN documented as of this encounter Visit Diagnoses Not on filedocumented in this encounter Care Teams Physical Security Manager Relationship Specialty Start Date End Date Julisa Kerr MD [address] [place], [place] [id number] PCP - General 02/22/11 Jessica Cortes MD [address] [place] [address] [address] [place] [address] Internal Medicine-Rheumatology 04/26/16 Susana Garay MD [address] [place] [address] Medical Oncologist Internal Medicine-Hematology and Oncology 10/14/22 documented as of this encounter
--- OUTSIDE RECORDS SUMMARY | 2024-08-22 21:35 | XMS_ITS | Encounter Summary ---
Author Organization [place] [address] Care Team Providers Care Assurance Services Manager Health Care Name Role Phone Julisa Kerr MD Primary Care Provider [phone] Jessica Cortes MD Unavailable [phone] Susana Garay MD Unavailable [phone] Reason for Referral * MRI/CAT Scan (Routine) - Closed Specialty Diagnoses / Procedures Referred By Contac t Referred To Contact Radiology Diagnoses Right ankle pain, unspecified chronicity Right ankle swelling Procedures MRI ANKLE RIGHT WO CONTRAST Josephine Cotton DO [address] [place] [address] Phone: tel: fax: [facility] MRI [address] [facility] [place] [address] Phone: tel: Referral ID Status Reason Start Date Expiration Date Visits Re quested Visits Authorized [id number] Closed 05/17/2024 05/17/2025 1 1 Reason for Visit * MRI/CAT Scan (Routine) - Closed Specialty Diagnoses / Procedures Referred By Contac t Referred To Contact Radiology Diagnoses Right ankle pain, unspecified chronicity Right ankle swelling Procedures MRI ANKLE RIGHT WO CONTRAST Josephine Cotton DO [address] [place] [address] Phone: tel: fax: [facility] [address] [place] [address] Phone: tel: Referral ID Status Reason Start Date Expiration Date Visits Re quested Visits Authorized [id number] Closed 05/17/2024 05/17/2025 1 1 Encounter Details Date Type Department Care Team (Latest Contact Info) Description 05/18/2024 2:55 PM EDT - 05/18/2024 11:59 PM EDT Hospital Encounter [facility] [address] [place] [address] Josephine Cotton, DO [address] [place] [address] Right ankle pain, unspecified chronicity; Right ankle swelling Discharge Disposition: Home or Self Care Social [...] Progress Notes * Josephine Cotton DO - 05/18/2024 3:00 PM EDT Have patient make follow up appt with Dr. Barnard team please to consider steroid injections if Evonthinks it helps. documented in this encounter Plan of Treatment Upcoming Encounters Date Type Department Care Team (Late st Contact Info) Description 08/31/2024 8:30 AM EST Appointment [address] [place] [address] 10/25/2024 10:45 AM EST Office Visit [facility] [address] [place] [address] Jessica Cortes MD [address] [place] [address] 01/25/2025 9:00 AM EDT Appointment [address] [place] [address] 05/09/2025 11:00 AM EDT Appointment [address] [place] [address] 05/09/2025 11:15 AM EDT Appointment [address] [address] Susana Garay MD [address] [place] [address] documented as of this encounter Goals Goal Patient Goal Type Associated Problems Recent Progress Patient-Stated? 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, RN documented as of this encounter Procedures Procedure Name Priority Date/Time Associated Diagnosis Comments MRI ANKLE RIGHT WO CONTRAST Routine 05/18/2024 3:37 PM EDT Right ankle pain, unspecified chronicity Right ankle swelling documented in this encounter Results * MRI ANKLE RIGHT [...] in right ankle and joints of right vsla-WSV-62-CM M25.471-Effusion, right xbjza-UCH-84-CM COMPARISON: None TECHNIQUE: Multiplanar, multisequence MR images [...] in right ankle and joints of right ryvd-KFP-64-CM M25.471-Effusion, right wdipv-OFM-75-CM COMPARISON: None TECHNIQUE: Multiplanar, multisequence MR images [...] please contactthe office of the ordering clinician. Josephine Cotton DO [facility] MRI ORDERABLES Final Resul t documented in this encounter Visit Diagnoses Diagnosis Right ankle pain, unspecified chronicity Right ankle swelling Effusion of ankle and foot joint documented in this encounter Care Teams Assurance Services Manager Health Care Relationship Specialty Start Date End Date Julisa Kerr MD [address] [place] [address] PCP - General 02/22/11 Jessica Cortes MD [address] [place] [address] Internal Medicine-Rheumatology 04/26/16 Susana Garay MD [address] [facility] [place] [address] Medical Oncologist Internal Medicine-Hematology and Oncology 10/14/22 documented as of this encounter
--- NOTE | 2024-08-22 21:36 | ECG_ITS ---
APPROVED REPORT Exam: Resting ECG HR:94 bpm ECG Measurements Heart Rate 94 AXES MN 124 P -9 QRSd 85 QRS 32 QT 337 T 1 QTc 388 Conclusion Sinus rhythm Electronically signed by : BOB HILLS, 08/24/2024 11:33:23
--- OUTSIDE RECORDS SUMMARY | 2024-08-22 21:36 | XMS_ITS | Encounter Summary ---
Author Organization [place] [address] Care Team Providers Care Fuel Oil Clerk Name Role Phone Julisa Kerr MD Primary Care Provider [phone] Jessica Cortes MD Unavailable [phone] Susana Garay MD Unavailable [phone] Encounter Details Date Type Department Care Team (Latest Contact Info) Description 05/03/2024 11:15 AM EDT - 05/03/2024 11:18 AM EDT Hospital Encounter [facility] [place] [address] Antiphospholipid syndrome (HCC) (Primary Dx) Discharge Disposition: Home or Self Care Social [...] gallagher RMA * Does this person have serious [...] Luciano Kenney JARROD documented in this encounter Medications at Time of Discharge cyanocobalamin 1,000 mcg/mL Inj SolutionIndicati ons:Vitamin B 12 deficiency INJECT 1ML INTO MUSCLE EVERY MONTH 1 mL 02/18/2024 leflunomide (ARAVA) 20 mg Oral TabletIndication s:Rheumatoid arthritis involving multiple sites with positive rheumatoid factor (HCC) TAKE 1 TABLET BY MOUTH EVERY DAY 30 Tablet 1 03/10/2024 4 methotrexate sodium 25 mg/mL Inj SolutionIndicati ons:R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 4 mL 1 03/29/2024 4 predniSONE (DELTASONE) 5 mg Oral TabletIndication s:Rheumatoid arthritis involving multiple sites with positive rheumatoid factor (HCC) TAKE 1 TABLET BY MOUTH EVERY DAY 30 Tablet 1 03/29/2024 4 documented as of this encounter Discharge Disposition Disposition Code Departure Means Destination Home or Self Care documented in this encounter Plan of Treatment Upcoming Encounters Date Type Department Care Team (Late st Contact Info) Description 08/31/2024 8:30 AM EST Appointment [facility] [address] [address] [place] [address] 10/25/2024 10:45 AM EST Office Visit [facility] [address] [place] [id number] Jessica Cortes MD [address] [facility] Building [address] [place] [address] 01/25/2025 9:00 AM EDT Appointment [place] [address] [place] [address] 05/09/2025 11:00 AM EDT Appointment [address] [address] [place] [address] 05/09/2025 11:15 AM EDT Appointment [address] [address] [place] [address] Susana Garay MD [address] [place] [address] documented as of this encounter Goals Goal Patient Goal Type Associated Problems Recent Progress Patient-Stated? Author Maintain a healthy diet, exercise regularly and maintain an ideal body weight Porsche Diaz RN documented as of this encounter Procedures Procedure Name Priority Date/Time Associated Diagnosis Comments IRON+TIBC STAT 05/03/2024 11:33 AM EDT Antiphospholipid syndrome (HCC) VITAMIN B12/ FOLIC ACID STAT 05/03/2024 11:33 AM EDT Antiphospholipid syndrome (HCC) CBC WITH DIFF STAT 05/03/2024 11:33 AM EDT Antiphospholipid syndrome (HCC) FERRITIN STAT 05/03/2024 11:33 AM EDT Antiphospholipid syndrome (HCC) documented in this encounter Results * FERRITIN (05/03/2024 11:33 AM EDT) Ferritin 64 30 - 150 ng/mL 05/03/2024 5:23 PM EDT [facility] [employer] [facility] Comment:The lower threshold of 30 is not statistically defined, nor internally validated. The threshold has been updated to more closely reflect a physiologic basis. Liz Seth et al. Physiologically based serum ferritin thresholds for iron deficiency in children and non- women: a [place] National Health and Nutrition Examination Surveys (NHANES) serial cross-sectional study. Lancet Haematol 202;8:e572-82. Blood VENOUS BLOOD / Unknown Venipuncture / Unknown 05/03/2024 11:33 AM EDT 05/03/2024 11:36 AM EDT Narrative PREFERRED [employer], [facility] - 05/03/2024 5:23 PM EDT Ingestion of beverley doses of biotin (>5 mg/day) taken within 8 hours of drawing blood sample can interfere with this immunoassay test. Susana Garay MD CHEMISTRY ORDERABLES Final Re sult Performing Organization Address [facility] Co de Phone Number [facility] [employer] [address] , [place] [address] * (ABNORMAL) IRON+TIBC (05/03/2024 11:33 AM EDT) Pathologist [facility] Iron 47 30 - 160 mcg/dL 05/03/2024 5:23 PM EDT [facility] [employer], [employer] Transferrin 280 200 - 360 mg/dL 05/03/2024 5:23 PM EDT [employer], [facility] [employer] Saturation 12(L) 20 - 50 % 05/03/2024 5:23 PM EDT [facility] [employer], [facility] TIBC 392 250 - 400 mcg/dL 05/03/2024 5:23 PM EDT [employer], [facility] Blood VENOUS BLOOD / Unknown Venipuncture / Unknown 05/03/2024 11:33 AM EDT 05/03/2024 11:36 AM EDT us Susana Garay MD CHEMISTRY ORDERABLES Final Re sult Performing Organization Address [facility]/ZIP Co de Phone Number [facility] [employer] [address] , [address] [place] [id number] * VITAMIN B12/ FOLIC ACID (05/03/2024 11:33 AM EDT) Vitamin B12 243 232 - 1,245 pg/mL 05/03/2024 4:05 PM EDT [facility] [employer] Folate 11.40 >=4.80 ng/mL 05/03/2024 4:05 PM EDT [facility] [employer] [facility] Blood VENOUS BLOOD / Unknown Venipuncture / Unknown 05/03/2024 11:33 AM EDT 05/03/2024 11:36 AM EDT Narrative [facility] [employer] [facility] - 05/03/2024 4:05 PM EDT Ingestion of beverley doses of biotin (>5 mg/day) taken within 8 hours of drawing blood sample can interfere with this immunoassay test. us Susana Garay MD CHEMISTRY ORDERABLES Final Re sult [facility] [employer] [facility] [address] [facility] , [place] [address] * (ABNORMAL) CBC WITH DIFF (05/03/2024 11:33 AM EDT) WBC 16.7(H) 3.7 - 10.3 x10(3)/mc L 05/03/2024 11:39 AM EDT [facility] RBC 4.86 3.90 - 5.20 x10(6)/mc L 05/03/2024 11:39 AM EDT [facility] Hgb 12.2 11.2 - 15.7 g/dL 05/03/2024 11:39 AM EDT [facility] Hct 40.6 34.0 - 45.0 % 05/03/2024 11:39 AM EDT [facility] MCV 83.5 80.0 - 100.0 fL 05/03/2024 11:39 AM EDT [facility] MCH 25.1(L) 26.0 - 34.0 pg 05/03/2024 11:39 AM EDT [facility] MCHC 30.0(L) 30.7 - 35.5 g/dL 05/03/2024 11:39 AM [facility] RDW 15.1(H) <=14.9 % 05/03/2024 11:39 AM [facility] Platelet 390(H) 155 - 369 x10(3)/ L 05/03/2024 11:39 AM [facility] MPV 9.4 8.8 - 12.5 fL 05/03/2024 11:39 AM [facility] Neut # Prelim 13.7(H) 1.6 - 6.1 x10(3)/ L 05/03/2024 11:39 AM [facility] Comment:Preliminary automate d absolute neutrophil count. Value may change if manual differential is indicated. Neut Percent 82.1 % 05/03/2024 11:39 AM [facility] Comment:Neutrophils equals s egs plus bands Imm Gran% 2.0 % 05/03/2024 11:39 AM [facility] Comment:Automated count of m etamyelocytes, myelocytes and promyelocytes. IG >1% represents a left shift and provides an early indication of an infection or inflammatory process. Lymph Percent 8.8 % 05/03/2024 11:39 AM [facility] Young Percent 5.9 % 05/03/2024 11:39 AM [facility] Eos Percent 0.8 % 05/03/2024 11:39 AM [facility] Baso Percent 0.4 % 05/03/2024 11:39 AM [facility] Neut # 13.7(H) 1.6 - 6.1 x10(3)/ L 05/03/2024 11:39 AM [facility] Comment:Neutrophils equals s egs plus bands IMMGRAN# 0.3(H) 0.0 - 0.1 x10(3)/ L 05/03/2024 11:39 AM [facility] Comment:Automated count of m etamyelocytes, myelocytes and promyelocytes. An absolute IG <0.1 is reported as 0.0. Lymph # 1.5 1.2 - 3.9 x10(3)/mc L 05/03/2024 11:39 AM [facility] Young # 1.0(H) 0.3 - 0.9 x10(3)/mc L 05/03/2024 11:39 AM EDT [facility] Eos# 0.1 0.0 - 0.5 x10(3)/mc L 05/03/2024 11:39 AM EDT [facility] Baso # 0.1 0.0 - 0.1 x10(3)/mc L 05/03/2024 11:39 AM EDT [facility] Blood VENOUS BLOOD / Unknown Venipuncture / Unknown 05/03/2024 11:33 AM EDT 05/03/2024 11:36 AM EDT us Susana Garay MD HEMATOLOGY ORDERABLES Final R esult [facility] [address] [place], [place] [id number] documented in this encounter Visit Diagnoses Diagnosis Antiphospholipid syndrome (HCC)- Primary Primary hypercoagulable state documented in this encounter Care Teams Fuel Oil Clerk Relationship Specialty Start Date End Date Julisa Kerr MD [address] [place] [address] PCP - General 02/22/11 Jessica Cortes MD [address] [facility] [address] [place] [address] Internal Medicine-Rheumatology 04/26/16 Susana Garay MD 1 [place] [address] Medical Oncologist Internal Medicine-Hematology and Oncology 10/14/22 documented as of this encounter
--- OUTSIDE RECORDS SUMMARY | 2024-08-22 21:36 | XMS_ITS | Encounter Summary ---
Author Organization [place] [address] Care Team Providers Care Tool Repairer Name Role Phone Julisa Kerr MD Primary Care Provider [phone] Jessica Cortes MD Unavailable [phone] Susana Garay MD Unavailable [phone] Reason for Referral * Genetic Lab Test (Routine) - Authorization Not Needed Specialty Diagnoses / Procedures Referred By Contac t Referred To Contact Diagnoses Screening for cancer of the rectum Screen for colon cancer Procedures COLOGJulisa Sevilla MD [address] [place] [address] Phone: tel: fax: Referral ID Status Reason Start Date Expiration Date Visits Requested Visits Authorized [id number] Authorization Not Needed 03/08/2024 03/08/2025 1 1 Encounter Details Date Type Department Care Team (Late st Contact Info) Description 03/08/2024 Orders Only SEP P [address] [place] [address] Julisa Kerr MD [address] [place] [address] Screening for cancer of the rectum; Screen for colon cancer Social History Tobacco Use Types Packs/Day Years Used Date Smoking Tobacco: Never Smokeless Tobacco: Never Alcohol Use Standard [...] Description 08/31/2024 8:30 AM EST Appointment [facility] [address] [place] [address] 10/25/2024 10:45 AM EST Office Visit [facility] [address] [place] [address] Jessica Cortes MD [address] [address] 01/25/2025 9:00 AM EDT [address]ointment [address] [place] [address] 05/09/2025 11:00 AM EDT Appointment [address] [place] [address] 05/09/2025 11:15 AM EDT Appointment [address] [place] [address] Susana Garay MD [address] [place] [address] [address] [place], [place] [id number] Scheduled Orders Name Type Priority Associated Diagnoses Orde r Schedule COLOGUARD Microbiology Routine Screening for cancer of the rectum Screen for colon cancer 1 Occurrences starting 03/08/2024 until 03/08/2025 documented as of this encounter Goals Goal Patient Goal Type Associated Problems Recent Progress Patient-Stated? 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, RN documented as of this encounter Visit Diagnoses Diagnosis Screening for cancer of the rectum Screening for malignant neoplasm of the rectum Screen for colon cancer Special screening for malignant neoplasms, colon documented in this encounter Care Teams Tool Repairer Relationship Specialty Start Date End Date Julisa Kerr MD [address] [place] [address] PCP - General 02/22/11 Jessica Cortes MD [address] [place] [address] Internal Medicine-Rheumatology 04/26/16 Susana Garay MD [address] [facility] [place] [address] Medical Oncologist Internal Medicine-Hematology and Oncology 10/14/22 documented as of this encounter
--- OUTSIDE RECORDS SUMMARY | 2024-08-22 21:36 | XMS_ITS | Encounter Summary ---
Author Organization [employer] [place] [address] Care Team Providers Care Canine Deputy Name Role Phone Julisa Kerr MD Primary Care Provider [phone] Jessica Cortes MD Unavailable [phone] Susana Garay MD Unavailable [phone] Reason for Visit * Reason Comments Medication Refill Encounter Details Date Type Department Care Team (Late st Contact Info) Description 03/29/2024 Refill [facility] [address] [address] Susana Garay MD [address] [place] [address] Medication Refill Social History Tobacco Use Types [...] Info) Description 08/31/2024 8:30 AM EST Appointment [place] [address] [place] [address] 10/25/2024 10:45 AM EST Office Visit [facility] [address] [facility] [address] [place] [address] Jessica Cortes MD [address] [place] [address] Building [address] [place] [address] 01/25/2025 9:00 AM EDT Appointment [place] [address] [address] [place] [address] 05/09/2025 11:00 AM EDT Appointment [place] [address] [place] [address] 05/09/2025 11:15 AM EDT Appointment [place] [address] [place] [address] Susaan Garay MD [address] [facility] [place] [address] documented as of this encounter Goals Goal Patient Goal Type Associated Problems Recent Progress Patient-Stated? Author Maintain a healthy diet, exercise regularly and maintain an ideal body weight General Porsche Ashley RN documented as of this encounter Visit Diagnoses Diagnosis Antiphospholipid syndrome (HCC) Primary hypercoagulable state History of DVT in adulthood documented in this encounter Care Teams Canine Deputy Relationship Specialty Start Date End Date Julisa Kerr MD 100 [place] [address] PCP - General 02/22/11 Jessica Cortes MD [address] [address] Internal Medicine-Rheumatology 04/26/16 Susana Garay MD [address] [facility] [address] Medical Oncologist Internal Medicine-Hematology and Oncology 10/14/22 documented as of this encounter
--- OUTSIDE RECORDS SUMMARY | 2024-08-22 21:36 | XMS_ITS | Encounter Summary ---
Author Organization [place] [address] Care Team Providers Care Key Sander Name Role Phone Julisa Kerr MD Primary Care Provider [phone] Jessica Cortes MD Unavailable [phone] Susana Garay MD Unavailable [phone] Reason for Visit * Reason Comments Medication Refill Encounter Details Date Type Department Care Team (Late st Contact Info) Description 03/29/2024 Refill [facility] 100 [place] [phone] Julisa Kerr MD 100 [place] [address] Medication Refill Social History Tobacco Use Types [...] 1 TABLET BY MOUTH TWICE A DAY 60 Tablet 1 03/29/2024 05/03/2024 documented in this encounter Miscellaneous Notes * Telephone Encounter - Renee Goznalez RMA - 03/29/2024 10:25 AM EDT LV- 01/28/24 Last filled- 01/28/24 with 1 refill documented in this encounter Plan of Treatment Upcoming Encounters Date Type Department Care Team (Late st Contact Info) Description 08/31/2024 8:30 AM EST Appointment [facility] [address] [place] [address] 10/25/2024 10:45 AM EST Office Visit [facility] [address] [facility] [address] [place] [address] Jessica Cortes MD [address] [place] [id number] 01/25/2025 9:00 AM EDT [address]ointment [address] [place] [address] 05/09/2025 11:00 AM EDT [address]ointment [address] [place] [address] 05/09/2025 11:15 AM EDT Appointment [address] [place] [address] Susana Garay MD [address] [place] [address] [address] [place] [place] [id number] documented as of this encounter Goals Goal [...] 1 Tablet by mouth 2 times daily. 01/28/2024 03/29/2024 documented as of this encounter Care Teams Key Sander Relationship Specialty Start Date End Date Julisa Kerr MD 100 [place] [address] PCP - General 02/22/11 Jessica Cortes MD [address] [address] Internal Medicine-Rheumatology 04/26/16 Susana Garay MD [address] [facility] [place] [address] Medical Oncologist Internal Medicine-Hematology and Oncology 10/14/22 documented as of this encounter
--- OUTSIDE RECORDS SUMMARY | 2024-08-22 21:36 | XMS_ITS | Encounter Summary ---
Author Organization [employer] [place] [address] Care Team Providers Care Irrigation Technician Name Role Phone Julisa Kerr MD Primary Care Provider [phone] Jessica Cortes MD Unavailable [phone] Susana Garay MD Unavailable [phone] Reason for Visit * Reason Onset Date Comments Appointment Needed 04/20/2024 Encounter Details Date Type Department Care Team (Late st Contact Info) Description 04/20/2024 Telephone [facility] [address] [facility] [address] [place] [address] Jessica Cortes MD 651 [facility] Building [address] [place] [address] Appointment Needed Social History Tobacco Use Types Packs/Day Years [...] 12/08/2023 3:24 PM EDT Kenney, LucianoJARROD * Is the person blind or does [...] Author No 12/08/2023 3:24 PM EDT KenneyLuciano RMA * Because of a physical, mental or emotional condition, does this person have difficulty doing errands alone such as visiting a doctor's office or shopping? Answer Date of Assessment Author No 12/08/2023 3:24 PM EDT Kenney JARROD Wolf documented as of this encounter Mental Status * Because of a physical, mental or emotional condition, does this person have serious difficulty concentrating, remembering or making decisions? Answer Entry Date Author No 12/08/2023 3:24 PM EDT KenneyLucianoJARROD documented in this encounter Miscellaneous Notes * Telephone Encounter - Caterina Bingham Clerical Staff - 04/21/2024 3:05 PM EDT 3 month follow up scheduled * Telephone Encounter - Caterina Bingham Clerical Staff - 04/20/2024 3:27 PM EDT LVM to schedule 3 month follow up appointment my chart msg sent * Telephone Encounter - Caterina Bingham Clerical Staff - 04/20/2024 3:26 PM EDT ----- Message from Jessica Cortes MD sent at 04/19/2024 10:51 AM EDT ----- Please call the patient to schedule f/u in 3 months. documented in this encounter Plan of Treatment Upcoming Encounters Date Type Department Care Team (Late st Contact Info) Description 08/31/2024 8:30 AM EST Appointment [address] [address] 10/25/2024 10:45 AM EST Office Visit [facility] [address] [place] [address] Jessica Cortes MD [address] [facility] [address] [place] [address] 01/25/2025 9:00 AM EDT Appointment [address] [address] 05/09/2025 11:00 AM EDT Appointment [address] [address] 05/09/2025 11:15 AM EDT Appointment [address] [address] Susana Garay MD [address] [place], [place] [id number] documented as of this encounter Goals Goal Patient Goal Type Associated Problems Recent Progress Patient-Stated? Author Maintain a healthy diet, exercise regularly and maintain an ideal body weight General Porsche Ashley, RN documented as of this encounter Visit Diagnoses Not on filedocumented in this encounter Care Teams Irrigation Technician Relationship Specialty Start Date End Date Julisa Kerr MD [address] [place], [place] [id number] PCP - General 02/22/11 Jessica Cortes MD [address] [place] [address] Internal Medicine-Rheumatology 04/26/16 Susana Garay MD [address] [facility] [place] [address] Medical Oncologist Internal Medicine-Hematology and Oncology 10/14/22 documented as of this encounter
--- OUTSIDE RECORDS SUMMARY | 2024-08-22 21:36 | XMS_ITS | Encounter Summary ---
Author Organization [place] [address] Care Team Providers Care Ticket Collector Or Usher Name Role Phone Julisa Kerr MD Primary Care Provider [phone] Jessica Cortes MD Unavailable [phone] Susana Garay MD Unavailable [phone] Encounter Details Date Type Department Care Team (Latest Contact Info) Description 04/27/2024 2:45 PM EDT - 04/27/2024 11:59 PM EDT Hospital Encounter [facility] [address] [place] [address] Rheumatoid arthritis involving multiple sites with positive rheumatoid factor (HCC); Therapeutic drug monitoring; Tuberculosis screening Discharge Disposition: Home or Self [...] Time of Discharge cyanocobalamin 1,000 mcg/mL Inj SolutionIndicatio ns:Vitamin B 12 deficiency INJECT 1ML INTO MUSCLE EVERY MONTH 1 mL 02/18/2024 leflunomide (ARAVA) 20 mg Oral TabletIndications :Rheumatoid arthritis involving multiple sites with positive rheumatoid factor (HCC) TAKE 1 TABLET BY MOUTH EVERY DAY 30 Tablet 1 03/10/2024 4 methotrexate sodium 25 mg/mL Inj SolutionIndicatio ns:R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 4 mL 1 03/29/2024 4 oxyCODONE (ROXICODONE) 5 mg Oral TabletIndications :S/P total left hip arthroplasty Take 1-2 Tablets by mouth every 12 hours as needed for Major Surgery/Trauma (G89.18). 20 Tablet 02/12/2024 4 predniSONE (DELTASONE) 5 mg Oral TabletIndications [...] Info) Description 08/31/2024 8:30 AM EST Appointment [facility] [address] [address] [place] [address] 10/25/2024 10:45 AM EST Office Visit [facility] [address] [place] [address] Jessica Cortes MD [address] [place] [address] 01/25/2025 9:00 AM EDT Appointment [address] [address] [place] [address] 05/09/2025 11:00 AM EDT Appointment [address] [address] [place] [address] 05/09/2025 11:15 AM EDT Appointment [address] [address] [place] [address] Susana Garay MD [address] [place] [address] documented as of this encounter Goals Goal Patient Goal Type Associated Problems Recent Progress Patient-Stated? 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 RN documented as of this encounter Procedures Procedure Name Priority Date/Time Associated Diagnosis Comments QUANTIFERON TB GOLD Routine 04/27/2024 2 :46 PM EDT Tuberculosis screening SEDIMENTATION RATE AUTOMATED Routine 04/27/2024 2:46 PM EDT Rheumatoid arthritis involving multiple sites with positive rheumatoid factor (HCC) CBC WITH DIFF Routine 04/27/2024 2:46 PM EDT Rheumatoid arthritis involving multiple sites with positive rheumatoid factor (HCC) Therapeutic drug monitoring C-REACTIVE PROTEIN Routine 04/27/2024 2: 46 PM EDT Rheumatoid arthritis involving multiple sites with positive rheumatoid factor (HCC) COMPREHENSIVE METABOLIC PANEL Routine 04/27/2024 2:46 PM EDT Rheumatoid arthritis involving multiple sites with positive rheumatoid factor (HCC) Therapeutic drug monitoring documented in this encounter Results * QUANTIFERON TB GOLD (04/27/2024 2:46 PM EDT) [facility] Quantiferon-TB Gold in Tube Indeterminate Negative 04/28/2024 5:56 PM EDT [facility] [employer] [employer] Comment:Indeterminate result s are uncommon and may relate to the immune status of the individual being tested. Indeterminate results may also be due to inappropriate collection, handling or storage of the blood collection tubes. Repeat sample collection may give a definitive result when the indeterminate value is related to specimen handling. Quantiferon Mitogen minus NIL 0.2459 IU/mL 04/28/2024 5:56 PM EDT [facility] [employer], [facility] Quantiferon NIL 0.0191 IU/mL 5:56 PM EDT [facility] [employer], [facility] QUANTIFERON TB1 MINUS NIL 0.0012 IU/mL 04/28/2024 5:56 PM EDT [facility] [employer], [facility] QUANTIFERON TB2 MINUS NIL -0.0075 IU/mL 04/28/2024 5:56 PM EDT [facility] [employer], [facility] Blood VENOUS BLOOD / Unknown Venipuncture / Unknown 04/27/2024 2:46 PM EDT 04/27/2024 2:46 PM EDT [facility], [facility] - 04/28/2024 5:56 PM EDT Interferon gamma release is measured for patient [...] Cortes MD IMMUNOLOGY ORDERABLES Fin al Result [facility] [address] [facility] , [place] [address] * (ABNORMAL) COMPREHENSIVE METABOLIC PANEL (04/27/2024 2:46 PM EDT) Sodium 136 136 - 145 mmol/L 04/27/2024 11:51 PM EDT [facility] Potassium 4.8 3.5 - 5.0 mmol/L 04/27/2024 11:51 PM EDT [facility] Chloride 98 98 - 107 mmol/L 04/27/2024 11:51 PM EDT [facility] Total CO2 24 22 - 29 mmol/L 04/27/2024 11:51 PM EDT [facility] Anion Gap 14 7 - 16 mmol/L 04/27/2024 11:51 PM EDT [facility] Calcium 9.9 8.6 - 10.4 mg/dL 04/27/2024 11:51 PM EDT [facility] Glucose Lvl 167(H) 70 - 99 mg/dL 04/27/2024 11:51 PM EDT [facility] BUN 9 6 - 20 mg/dL 04/27/2024 11:51 PM EDT [facility] Creatinine 0.92 0.51 - 1.30 mg/dL 04/27/2024 11:51 PM EDT [facility] Albumin 3.8 3.5 - 5.2 gm/dL 04/27/2024 11:51 PM EDT [facility] Total Protein 7.2 6.4 - 8.3 gm/dL 04/27/2024 11:51 PM EDT [facility] Bili Total 0.3 0.2 - 1.3 mg/dL 04/27/2024 11:51 PM EDT [facility] ALT 22 <=41 U/L 04/27/2024 11:51 PM EDT [facility], [facility] AST 26 <=40 U/L 04/27/2024 11:51 PM EDT [facility], [facility] Alk Phos 98 36 - 123 U/L 04/27/2024 11:51 PM EDT [facility], [facility] eGFR (CKD-EPIcr 2020) 74 >=60 mL/min/1.7 3 m2 04/27/2024 11:51 PM EDT [facility] Comment:Estimated GFR was ca lculated using the CKD-EPIcr (2020) equation refit without race. The equation is recommended by the National Kidney Foundation - [place] [employer] of Nephrology Task Force. Blood VENOUS BLOOD / Unknown Venipuncture / Unknown 04/27/2024 2:46 PM EDT 04/27/2024 2:46 PM EDT Jessica Cortes MD CHEMISTRY ORDERABLES Siobhan l Result Performing Organization Address [facility]/ZIP Co de Phone Number [facility] [address] [facility] , [place] [address] [facility] [address] [place] [address] * (ABNORMAL) SEDIMENTATION RATE AUTOMATED (04/27/2024 2:46 PM EDT) [facility] Sed Rate 44(H) 0 - 30 mm/hr 04/27/2024 7:49 PM EDT [facility], [facility] Blood VENOUS BLOOD / Unknown Venipuncture / Unknown 04/27/2024 2:46 PM EDT 04/27/2024 2:46 PM EDT Jessica Cortes MD HEMATOLOGY ORDERABLES Fin al Result Performing Organization Address City/[facility]/ZIP Co de Phone Number [facility] , [place] [phone] * (ABNORMAL) C-REACTIVE PROTEIN (04/27/2024 2:46 PM EDT) [facility] CRP 63.85(H) <=5.00 mg/L 04/27/2024 11:51 PM EDT [facility] Blood VENOUS BLOOD / Unknown Venipuncture / Unknown 04/27/2024 2:46 PM EDT 04/27/2024 2:46 PM EDT us Jessica Cortes MD CHEMISTRY ORDERABLES Siobhan l Result [facility] [address] [facility] , [address] [place] [phone] * (ABNORMAL) CBC WITH DIFF (04/27/2024 2:46 PM EDT) WBC 11.9(H) 3.7 - 10.3 x10(3)/mcL 04/27/2024 7:49 PM EDT [facility] RBC 5.15 3.90 - 5.20 x10(6)/mcL 04/27/2024 7:49 PM EDT [facility] Hgb 12.6 11.2 - 15.7 g/dL 04/27/2024 7:49 PM EDT [facility] Hct 43.3 34.0 - 45.0 % 04/27/2024 7:49 PM EDT [facility] MCV 84.1 80.0 - 100.0 fL 04/27/2024 7:49 PM EDT [facility] MCH 24.5(L) 26.0 - 34.0 pg 04/27/2024 7:49 PM EDT [facility] MCHC 29.1(L) 30.7 - 35.5 g/dL 04/27/2024 7:49 PM EDT [facility] RDW 15.5(H) <=14.9 % 04/27/2024 7:49 PM EDT [facility] Platelet 421(H) 155 - 369 x10(3)/mcL 04/27/2024 7:49 PM EDT [facility] MPV 10.4 8.8 - 12.5 fL 04/27/2024 7:49 PM EDT [facility] Neut Percent 80.0 % 04/27/2024 7:49 PM EDT [facility], [facility] Comment:Neutrophils equals s egs plus bands Imm Gran% 2.4 % 04/27/2024 7:49 PM EDT [facility], [facility] Comment:Automated count of m etamyelocytes, myelocytes and promyelocytes. IG >1% represents a left shift and provides an early indication of an infection or inflammatory process. Lymph Percent 8.0 % 04/27/2024 7:49 PM EDT [facility] Refugio Percent 9.1 % 04/27/2024 7:49 PM EDT [facility], [facility] Eos Percent 0.0 % 04/27/2024 7:49 PM EDT [facility], [facility] Baso Percent 0.5 % 04/27/2024 7:49 PM EDT [facility], [facility] Neut # 9.5(H) 1.6 - 6.1 x10(3)/mcL 04/27/2024 7:49 PM EDT [facility], [facility] Comment:Neutrophils equals s egs plus bands IMMGRAN# 0.3(H) 0.0 - 0.1 x10(3)/mcL 04/27/2024 7:49 PM EDT [facility], [facility] Comment:Automated count of m etamyelocytes, myelocytes and promyelocytes. An absolute IG <0.1 is reported as 0.0. Lymph # 1.0(L) 1.2 - 3.9 x10(3)/mcL 04/27/2024 7:49 PM EDT [facility] Refugio # 1.1(H) 0.3 - 0.9 x10(3)/mcL 04/27/2024 7:49 PM EDT [facility], [facility] Eos# 0.0 0.0 - 0.5 x10(3)/mcL 04/27/2024 7:49 PM EDT [facility], [facility] Baso # 0.1 0.0 - 0.1 x10(3)/mcL 04/27/2024 7:49 PM EDT [facility], [facility] Blood VENOUS BLOOD / Unknown Venipuncture / Unknown 04/27/2024 2:46 PM EDT 04/27/2024 2:46 PM EDT us Jessica Cortes MD HEMATOLOGY ORDERABLES Fin al Result [facility] [employer] [address] [facility] , [place] [address] documented in this encounter Visit Diagnoses Diagnosis Rheumatoid arthritis involving multiple sites with positive rheumatoid factor (HCC) Therapeutic drug monitoring Encounter for therapeutic drug monitoring Tuberculosis screening Screening examination for pulmonary tuberculosis documented in this encounter Care Teams Ticket Collector Or Usher Relationship Specialty Start Date End Date Julisa Kerr MD [address] [place] [address] PCP - General 02/22/11 Jessica Cortes MD [address] [place] [address] Internal Medicine-Rheumatology 04/26/16 Susana Garay MD [address] [facility] [place] [address] Medical Oncologist Internal Medicine-Hematology and Oncology 10/14/22 documented as of this encounter
--- OUTSIDE RECORDS SUMMARY | 2024-08-22 21:36 | XMS_ITS | Encounter Summary ---
Author Organization [facility] Address [address] [place] [address] Care Team Providers Care Game Farm Supervisor Name Role Phone Julisa Kerr MD Primary Care Provider [phone] Jessica Cortes MD Unavailable [phone] Susana Garay MD Unavailable [phone] Reason for Visit * Reason Comments Follow-up Encounter Details Date Type Department Care Team (Late st Contact Info) Description 03/23/2024 1:30 PM EDT Office Visit [place] [address] [place] [address] Jame Webb PA-C [address] [place] [address] S/P total left hip arthroplasty (Primary Dx) Social History Tobacco Use Types [...] documented in this encounter Progress Notes * Jame Webb PA-C - 03/23/2024 1:30 PM EDT Images from the original note were not included. [address] [phone] [place], [place] [phone] [place], [place] Yuliet Trevino 1970 Chief Complaint Patient presents with Left Hip - Follow-up Subjective: She is status post left total hip arthroplasty on 01/30/2024. They tell me that at this point the pain continues to decrease. The patient denies any fevers or chills. No wound drainage. The patient is weaning off of narcotic pain medicine. They have finished their DVT prophylaxis. They deny any shortness of breath or chest pain. They no longer are requiring awalker for ambulation. They continue to be more and more mobile She rates her pain as a 0 out of 10 today. Feels is doing better than prior to surgery. Still gets some swelling and ache with increased activity but is improving. Objective: On physical examination the patient is alert and oriented. Appropriate mood for the conversation. Well-developed and well-nourished in appearance. Limited gait examination reveals no obvious abnormalities. Bilateral upper and lower extremities demonstrate apparently normal range of motion and stability with intact pulses and sensation to light touch of the wrist, hand, ankle and foot bilaterally.Skin of bilateral upper and lower extremities with no obvious rash or lesions. Apparently normal muscle tone and reflexes for bilateral knees and ankles. No evidence of obvious significant lymphedemaof bilateral lower extremities. Respiratory rate is normal by clinical examination. Pulse rate is normal by peripheral pulse examination. The surgical incision is healed very nicely. There is no significant drainage or signs of erythema.There is some swelling in the operative limb, as would be expected after joint arthroplasty. There is no evidence of DVT or PE by clinical examination today. Distally the patient is grossly neurovascularly intact with ability to dorsiflex and plantarflex the ankles and toes. Grossly normal sensation over the dorsal and plantar aspect of the feet. Brisk capillary refill. The skin is intact. Gait examination appears non-antalgic. The patient has 5/5 strength in dorsiflexion and plantar flexion of the ankles and flexion and extension of the knees. Range of motion is as expected. No evidence of significant lymphadenopathy. Imaging: None performed on this visit Assessment and Plan: Diagnoses and all orders for this visit: S/P total left hip arthroplasty PLAN: At this point the patient is progressing as expected following surgery. At this point, we have discussed fall risk and antibiotic prophylaxis. We will see the patient at their one year anniversary and plan to repeat radiographs and evaluate regarding their progress. At this point, the patient will continue weight bearing as tolerated, and exercise type therapies as previously prescribed. All questions were answered. Please note that this job site supervisor was created using voice recognition software. Any errors are unintentional and may be due to voice recognition job site supervisor. Parts of this note may have been created by a chart review, combined by taking my own patient history. The patient was physically seen and examined by myself, including a personal review of images, tests, and formation of the impression and plan. If questions occur please do not hesitate to call our office. documented in this encounter Plan of Treatment Upcoming Encounters Date Type Department Care Team (Late st Contact Info) Description 08/31/2024 8:30 AM EST [address]ointment [address] [place] [place] [address] 10/25/2024 10:45 AM EST Office Visit [facility] [address] [facility] [address] [place] [address] Jessica Cortes MD [address] [facility] [address] [place] [address] 01/25/2025 9:00 AM EDT Appointment [address] [place] [address] 05/09/2025 11:00 AM EDT [address]ointment [address] [place] [address] 05/09/2025 11:15 AM EDT [address]ointment [address] [place] [address] Susana Garay MD [address] [place], [place] [id number] documented as of this encounter Goals Goal Patient Goal Type Associated Problems Recent Progress Patient-Stated? 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, RN documented as of this encounter Visit Diagnoses Diagnosis S/P total left hip arthroplasty- Primary documented in this encounter Care Teams Game Farm Supervisor Relationship Specialty Start Date End Date Julisa Kerr MD [address] [place] [address] PCP - General 02/22/11 Jessica Cortes MD [address] [facility] [address] [place] [address] Internal Medicine-Rheumatology 04/26/16 Susana Garay MD 1 [facility] [place] [address] Medical Oncologist Internal Medicine-Hematology and Oncology 10/14/22 documented as of this encounter
--- OUTSIDE RECORDS SUMMARY | 2024-08-22 21:36 | XMS_ITS | Encounter Summary ---
Author Organization [place] [address] Care Team Providers Care Camouflage Specialist Name Role Phone Julisa Kerr MD Primary Care Provider [phone] Jessica Cortes MD Unavailable [phone] Susana Garay MD Unavailable [phone] Reason for Visit * Reason Comments Medication Refill Encounter Details Date Type Department Care Team (Late st Contact Info) Description 03/29/2024 Refill [facility] [address] [facility] [address] [place] [address] Jessica Cortes MD [address] [facility] [address] [place] [address] Medication Refill Social History Tobacco Use Types [...] Assessment Author No 12/08/2023 3:24 PM EDT KenneyLucianoJARROD * Does this person have difficulty dressing [...] Date Author No 12/08/2023 3:24 PM EDT Kenney, LucianoJARROD documented in this encounter Plan of Treatment Upcoming Encounters Date Type Department Care Team (Late st Contact Info) Description 08/31/2024 8:30 AM EST Appointment [address] [place] [address] 10/25/2024 10:45 AM EST Office Visit [facility] [address] [facility] [address] [place] [address] Jessica Cortes MD [address] [place] [address] [address] [place] [address] 01/25/2025 9:00 AM EDT Appointment [address] [place] [address] 05/09/2025 11:00 AM EDT Appointment [address] [place] [address] 05/09/2025 11:15 AM EDT Appointment [address] [place] [id number] Susana Garay MD [address] [facility] [address] documented as of this encounter Goals Goal Patient Goal Type Associated Problems Recent Progress Patient-Stated? 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 RN documented as of this encounter Visit Diagnoses Not on filedocumented in this encounter Care Teams Camouflage Specialist Relationship Specialty Start Date End Date Julisa Kerr MD [address] [place] [address] PCP - General 02/22/11 Jessica Cortes MD [address] [address] Internal Medicine-Rheumatology 04/26/16 Susana Garay MD [address] [facility] [place] [address] Medical Oncologist Internal Medicine-Hematology and Oncology 10/14/22 documented as of this encounter
--- OUTSIDE RECORDS SUMMARY | 2024-08-22 21:36 | XMS_ITS | Encounter Summary ---
Author Organization [place] [address] Care Team Providers Care County Treasurer Name Role Phone Julisa Kerr MD Primary Care Provider [phone] Jessica Cortes MD Unavailable [phone] Susana Garay MD Unavailable [phone] Encounter Details Date Type Department Care Team (Latest Contact Info) Description 04/17/2024 9:30 AM EDT - 04/17/2024 11:59 PM EDT Hospital Encounter [facility] [address] [place] [address] Elevated platelet count Discharge Disposition: Home or Self Care Social [...] Kenney JARROD * Does this person have serious difficulty walking or climbing stairs? Answer Date of Assessment Author No 12/08/2023 3:24 PM EDT Luciano Kenney JARROD * Does this person have difficulty dressing or bathing? Answer Date of Assessment Author No 12/08/2023 3:24 PM EDT Luciano Kenney JARROD * Because of a physical, mental or [...] Info) Description 08/31/2024 8:30 AM EST Appointment [facility] [address] [address] [place] [address] 10/25/2024 10:45 AM EST Office Visit [facility] [address] [place] [address] Jessica Cortes MD [address] [place] [address] 01/25/2025 9:00 AM EDT Appointment [address] [address] [place] [address] 05/09/2025 11:00 AM EDT Appointment [address] [address] [place] [address] 05/09/2025 11:15 AM EDT Appointment [address] [address] [place] [address] Susana Garay MD [address] [place] [address] [place] [address] documented as of this encounter Goals Goal Patient Goal Type Associated Problems Recent Progress Patient-Stated? 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 RN documented as of this encounter Procedures Procedure Name Priority Date/Time Associated Diagnosis Comments CBC WITH DIFF Routine 04/17/2024 9:44 AM EDT Elevated platelet count documented in this encounter Results * (ABNORMAL) CBC WITH DIFF (04/17/2024 9:44 AM EDT) WBC 15.5(H) 3.7 - 10.3 x10(3)/mcL 04/17/2024 2:39 PM EDT [facility] RBC 4.91 3.90 - 5.20 x10(6)/mcL 04/17/2024 2:39 PM EDT [facility] Hgb 12.3 11.2 - 15.7 g/dL 04/17/2024 2:39 PM EDT [facility] Hct 42.0 34.0 - 45.0 % 04/17/2024 2:39 PM EDT [facility] MCV 85.5 80.0 - 100.0 fL 04/17/2024 2:39 PM EDT [facility] MCH 25.1(L) 26.0 - 34.0 pg 04/17/2024 2:39 PM EDT [facility] MCHC 29.3(L) 30.7 - 35.5 g/dL 04/17/2024 2:39 PM EDT [facility] RDW 15.3(H) <=14.9 % 04/17/2024 2:39 PM EDT [facility] Platelet 437(H) 155 - 369 x10(3)/mcL 04/17/2024 2:39 PM EDT [facility] MPV 9.9 8.8 - 12.5 fL 04/17/2024 2:39 PM EDT [facility] Neut Percent 65.2 % 04/17/2024 2:39 PM EDT [facility] Comment:Neutrophils equals s egs plus bands Imm Gran% 2.7 % 04/17/2024 2:39 PM EDT [facility] Comment:Automated count of m etamyelocytes, myelocytes and promyelocytes. IG >1% represents a left shift and provides an early indication of an infection or inflammatory process. Lymph Percent 19.2 % 04/17/2024 2:39 PM EDT [facility] [place] Percent 10.6 % 04/17/2024 2:39 PM EDT [facility] Eos Percent 1.5 % 04/17/2024 2:39 PM EDT [facility] Baso Percent 0.8 % 04/17/2024 2:39 PM EDT [facility] Neut # 10.1(H) 1.6 - 6.1 x10(3)/mcL 04/17/2024 2:39 PM EDT [facility] Comment:Neutrophils equals s egs plus bands IMMGRAN# 0.4(H) 0.0 - 0.1 x10(3)/mcL 04/17/2024 2:39 PM EDT [facility] Comment:Automated count of m etamyelocytes, myelocytes and promyelocytes. An absolute IG <0.1 is reported as 0.0. Lymph # 3.0 1.2 - 3.9 x10(3)/mcL 04/17/2024 2:39 PM EDT [facility] [place] # 1.6(H) 0.3 - 0.9 x10(3)/mcL 04/17/2024 2:39 PM EDT [facility] Eos# 0.2 0.0 - 0.5 x10(3)/[facility] 04/17/2024 2:39 PM EDT [facility] Baso # 0.1 0.0 - 0.1 x10(3)/[facility] 04/17/2024 2:39 PM EDT [facility] Blood VENOUS BLOOD / Unknown Venipuncture / Unknown 04/17/2024 9:44 AM EDT 04/17/2024 9:44 AM EDT us Julisa Kerr MD HEMATOLOGY ORDERABLES Final Re sult [facility] [address] [facility] , [place] [address] documented in this encounter Visit Diagnoses Diagnosis Elevated platelet count Essential thrombocythemia documented in this encounter Care Teams County Treasurer Relationship Specialty Start Date End Date Julisa Kerr MD [address] [place] [address] PCP - General 02/22/11 Jessica Cortes MD [address] [place] [address] 19 [place] [address] Internal Medicine-Rheumatology 04/26/16 Susana Garay MD [address] [place] [address] [place] [address] Medical Oncologist Internal Medicine-Hematology and Oncology 10/14/22 documented as of this encounter
--- OUTSIDE RECORDS SUMMARY | 2024-08-22 21:36 | XMS_ITS | Encounter Summary ---
Author Organization [place] [address] Care Team Providers Care Sales Driver Name Role Phone Julisa Kerr MD Primary Care Provider [phone] Jessica Cortes MD Unavailable [phone] Susana Garay MD Unavailable [phone] Encounter Details Date Type Department Care Team (Latest Contact Info) Description 02/26/2024 10:48 AM EDT - 02/26/2024 11:59 PM EDT Hospital Encounter [facility] [address] [place] [address] Therapeutic drug monitoring Discharge Disposition: Home or [...] No 12/08/2023 3:24 PM EDT Luciano Kenney MATTHEWCarlene * Does this person have serious difficulty [...] INTO MUSCLE EVERY MONTH 1 mL 02/18/2024 gabapentin (NEURONTIN) 600 mg Oral TabletIndications :Rheumatoid arthritis involving multiple sites with positive rheumatoid factor (HCC),Acute bilateral low back pain without sciatica Take 1 Tablet by mouth 2 times daily. 60 Tablet 1 01/28/2024 4 hydrOXYzine (ATARAX) 25 mg Oral TabletIndications :Itching TAKE 1 TABLET BY MOUTH THREE TIMES A DAY NEEDED 90 Tablet 2 12/08/2023 4 leflunomide (ARAVA) 20 mg Oral TabletIndications :Rheumatoid arthritis involving multiple sites with positive rheumatoid factor (HCC) Take 1 Tablet by mouth daily. 30 Tablet 1 01/09/2024 4 methotrexate sodium 25 mg/mL Inj SolutionIndicatio ns:R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 4 mL 1 12/23/2023 4 oxyCODONE (ROXICODONE) 5 mg Oral TabletIndications :S/P total left hip arthroplasty Take 1-2 Tablets by mouth every 12 hours as needed for Major Surgery/Trauma (G89.18). 20 Tablet 02/12/2024 4 predniSONE (DELTASONE) 5 mg Oral TabletIndications :Rheumatoid arthritis involving multiple sites with positive rheumatoid factor (HCC) Take 1 Tablet by mouth daily. 30 Tablet 1 01/20/2024 4 documented as of this encounter Discharge Disposition Disposition Code Departure Means Destination Home or Self Care documented in this encounter Plan of Treatment Upcoming Encounters Date Type Department Care Team (Late st Contact Info) Description 08/31/2024 8:30 AM EST Appointment [address] [place] [address] 10/25/2024 10:45 AM EST Office Visit [facility] [address] [place] [address] Jessica Cortes MD [address] [facility] Building 19 [place] [address] 01/25/2025 9:00 AM EDT [address]ment [address] [place] [address] 05/09/2025 11:00 AM EDT [address]ment [address] [place] [address] 05/09/2025 11:15 AM EDT [address]ointment [address] [place] [address] Susana Garay MD [address] [place] [address] [place] [address] documented as of this encounter Goals Goal Patient Goal Type Associated Problems Recent Progress Patient-Stated? Author Maintain a healthy diet, exercise regularly and maintain an ideal body weight General Porsche Ashley, RN documented as of this encounter Procedures Procedure Name Priority Date/Time Associated Diagnosis Comments SEDIMENTATION RATE AUTOMATED Routine 02/26/2024 10:51 AM EDT Therapeutic drug monitoring CBC WITH DIFF Routine 02/26/2024 10:51 AM EDT Therapeutic drug monitoring C-REACTIVE PROTEIN Routine 02/26/2024 10 :51 AM EDT Therapeutic drug monitoring COMPREHENSIVE METABOLIC PANEL Routine 02/26/2024 10:51 AM EDT Therapeutic drug monitoring documented in this encounter Results * (ABNORMAL) COMPREHENSIVE METABOLIC PANEL (02/26/2024 10:51 AM EDT) Pathologist [facility] Sodium 141 136 - 145 mmol/L 02/26/2024 5:37 PM EDT [facility] Potassium 3.7 3.5 - 5.0 mmol/L 02/26/2024 5:37 PM EDT [facility] Chloride 106 98 - 107 mmol/L 02/26/2024 5:37 PM EDT [facility] Total CO2 22 22 - 29 mmol/L 02/26/2024 5:37 PM EDT [facility] Anion Gap 13 7 - 16 mmol/L 02/26/2024 5:37 PM EDT [facility] Calcium 9.0 8.6 - 10.4 mg/dL 02/26/2024 5:37 PM EDT [facility] Glucose Lvl 81 70 - 99 mg/dL 02/26/2024 5:37 PM EDT [facility] BUN 7 6 - 20 mg/dL 02/26/2024 5:37 PM EDT [facility] Creatinine 0.66 0.51 - 1.30 mg/dL 02/26/2024 5:37 PM EDT [facility] Albumin 3.8 3.5 - 5.2 gm/dL 02/26/2024 5:37 PM EDT [facility] Total Protein 7.0 6.4 - 8.3 gm/dL 02/26/2024 5:37 PM EDT [facility] Bili Total 0.2 0.2 - 1.3 mg/dL 02/26/2024 5:37 PM EDT [facility] ALT 9 <=41 U/L 02/26/2024 5:37 PM EDT [facility] AST 14 <=40 U/L 02/26/2024 5:37 PM EDT [facility] Alk Phos 138(H) 36 - 123 U/L 02/26/2024 5:37 PM EDT [facility] eGFR (CKD-EPIcr 2020) 104 >=60 mL/min/1.7 3 m2 02/26/2024 5:37 PM EDT [facility] Comment:Estimated GFR was ca lculated using the CKD-EPIcr (2020) equation refit without race. The equation is recommended by the National Kidney Foundation - [place] [employer] of Nephrology Task Force. Blood VENOUS BLOOD / Unknown Venipuncture / Unknown 02/26/2024 10:51 AM EDT 02/26/2024 10:51 AM EDT us Jessica Cortes MD CHEMISTRY ORDERABLES Siobhan l Result [facility] [address] [facility] , [address] [place] [id number] [facility] [address] [place], [place] [id number] * (ABNORMAL) CBC WITH DIFF (02/26/2024 10:51 AM EDT) WBC 7.3 3.7 - 10.3 x10(3)/mcL 02/26/2024 3:10 PM EDT [facility] RBC 4.29 3.90 - 5.20 x10(6)/mcL 02/26/2024 3:10 PM EDT [facility] Hgb 11.7 11.2 - 15.7 g/dL 02/26/2024 3:10 PM EDT [facility] Hct 38.5 34.0 - 45.0 % 02/26/2024 3:10 PM EDT [facility] MCV 89.7 80.0 - 100.0 fL 02/26/2024 3:10 PM EDT [facility] MCH 27.3 26.0 - 34.0 pg 02/26/2024 3:10 PM EDT [facility] MCHC 30.4(L) 30.7 - 35.5 g/dL 02/26/2024 3:10 PM EDT [facility] RDW 16.4(H) <=14.9 % 02/26/2024 3:10 PM EDT [facility] Platelet 451(H) 155 - 369 x10(3)/mcL 02/26/2024 3:10 PM EDT [facility] MPV 10.2 8.8 - 12.5 fL 02/26/2024 3:10 PM EDT [facility] Neut Percent 45.8 % 02/26/2024 3:10 PM EDT [facility] Comment:Neutrophils equals s egs plus bands Imm Gran% 2.2 % 02/26/2024 3:10 PM EDT [facility] Comment:Automated count of m etamyelocytes, myelocytes and promyelocytes. IG >1% represents a left shift and provides an early indication of an infection or inflammatory process. Lymph Percent 33.1 % 02/26/2024 3:10 PM EDT [facility] [place] Percent 13.2 % 02/26/2024 3:10 PM EDT [facility] Eos Percent 4.7 % 02/26/2024 3:10 PM EDT [facility] Baso Percent 1.0 % 02/26/2024 3:10 PM EDT [facility] Neut # 3.3 1.6 - 6.1 x10(3)/mcL 02/26/2024 3:10 PM EDT [facility] Comment:Neutrophils equals s egs plus bands IMMGRAN# 0.2(H) 0.0 - 0.1 x10(3)/mcL 02/26/2024 3:10 PM EDT [facility] Comment:Automated count of m etamyelocytes, myelocytes and promyelocytes. An absolute IG <0.1 is reported as 0.0. Lymph # 2.4 1.2 - 3.9 x10(3)/mcL 02/26/2024 3:10 PM EDT [facility] [place] # 1.0(H) 0.3 - 0.9 x10(3)/mcL 02/26/2024 3:10 PM EDT [facility] Eos# 0.3 0.0 - 0.5 x10(3)/mcL 02/26/2024 3:10 PM EDT [facility] Baso # 0.1 0.0 - 0.1 x10(3)/mcL 02/26/2024 3:10 PM EDT [facility] Blood VENOUS BLOOD / Unknown Venipuncture / Unknown 02/26/2024 10:51 AM EDT 02/26/2024 10:51 AM EDT us Jessica Cortes MD HEMATOLOGY ORDERABLES Fin al Result Performing Organization Address City/[facility]/ZIP Co de Phone Number [facility] , [place] [address] * (ABNORMAL) C-REACTIVE PROTEIN (02/26/2024 10:51 AM EDT) CRP 24.61(H) <=5.00 mg/L 02/26/2024 5:37 PM EDT [facility] Blood VENOUS BLOOD / Unknown Venipuncture / Unknown 02/26/2024 10:51 AM EDT 02/26/2024 10:51 AM EDT us Jessica Cortes MD CHEMISTRY ORDERABLES Siobhan l Result Performing Organization Address City/[facility] Co de Phone Number [facility] [employer] , [place] [address] * SEDIMENTATION RATE AUTOMATED (02/26/2024 10:51 AM EDT) Sed Rate 21 0 - 30 mm/hr 02/26/2024 3:10 PM EDT [facility] Blood VENOUS BLOOD / Unknown Venipuncture / Unknown 02/26/2024 10:51 AM EDT 02/26/2024 10:51 AM EDT us Jessica Cortes MD HEMATOLOGY ORDERABLES Fin al Result Performing Organization Address City/[facility]/ZIP Co de Phone Number [facility] [address] [facility] , [place] [address] documented in this encounter Visit Diagnoses Diagnosis Therapeutic drug monitoring Encounter for therapeutic drug monitoring documented in this encounter Care Teams Sales Driver Relationship Specialty Start Date End Date Julisa Kerr MD [address] [place], [place] [id number] PCP - General 02/22/11 Jessica Cortes MD [address] [facility] [address] [place] [address] Internal Medicine-Rheumatology 04/26/16 Susana Garay MD [address] [place] [address] Medical Oncologist Internal Medicine-Hematology and Oncology 10/14/22 documented as of this encounter
--- OUTSIDE RECORDS SUMMARY | 2024-08-22 21:36 | XMS_ITS | Encounter Summary ---
Author Organization [place] [address] Care Team Providers Care Health Promoter Name Role Phone Julisa Kerr MD Primary Care Provider [phone] Jessica Cortes MD Unavailable [phone] Susana Garay MD Unavailable [phone] Reason for Visit * Reason Comments Medication Refill Encounter Details Date Type Department Care Team (Late st Contact Info) Description 03/24/2024 Refill [facility] [address] [facility] [address] [place] [address] Jessica Cortes MD [address]51 [facility] Building [address] [place] [address] Medication Refill Social History Tobacco Use Types [...] encounter Miscellaneous Notes * Telephone Encounter - Ana An RMA - 03/24/2024 9:15 AM EDT last visit:01/09/24 last labs:02/26/24 next visit:04/19/24 chart reviewed: Therapeutic drug monitoring Tuberculosis screening TB gold negative 03/24/23, recheck in 2 months Labs every 6-8 weeks while on MTX and Arava to monitor for toxicities. Labs normal, reviewed 12/15/23 Stopped Prednisone 5 mg daily due to weight gain and the fact it stopped helping documented in this encounter Plan of Treatment Upcoming Encounters Date Type Department Care Team (Late st Contact Info) Description 08/31/2024 8:30 AM EST Appointment [facility] [address] [place] [address] 10/25/2024 10:45 AM EST Office Visit [facility] [address] [facility] [address] [place] [address] Jessica Cortes MD 651 [facility] 19 [place] [address] 01/25/2025 9:00 AM EDT Appointment [address] [place] [address] 05/09/2025 11:00 AM EDT Appointment [address] [place] [address] 05/09/2025 11:15 AM EDT Appointment [address] [place] [address] Susana Garay MD 1 [facility] [place] [address] documented as of this encounter Goals Goal Patient Goal Type Associated Problems Recent Progress Patient-Stated? 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, RN documented as of this encounter Visit Diagnoses Diagnosis Rheumatoid arthritis involving multiple sites with positive rheumatoid factor (HCC) documented in this encounter Care Teams Health Promoter Relationship Specialty Start Date End Date Julisa Kerr MD [address] [place] [address] PCP - General 02/22/11 Jessica Cortes MD 651 [facility] 19 [place] [address] Internal Medicine-Rheumatology 04/26/16 Susana Garay MD 1 [facility] [place], [place] [id number] Medical Oncologist Internal Medicine-Hematology and Oncology 10/14/22 documented as of this encounter
--- OUTSIDE RECORDS SUMMARY | 2024-08-22 21:36 | XMS_ITS | Encounter Summary ---
Author Organization [facility] [place] [address] Care Team Providers Care Radiology Specialist Name Role Phone Julisa Kerr MD Primary Care Provider [phone] Jessica Cortes MD Unavailable [phone] Susana Garay MD Unavailable [phone] Encounter Details Date Type Department Care Team (Latest Contact Info) Description 05/01/2024 Travel Social History Tobacco Use Types Packs/Day [...] Info) Description 08/31/2024 8:30 AM EST Appointment [address] [place] [address] 10/25/2024 10:45 AM EST Office Visit [facility] [address] [place] [address] Jessica Cortes MD [address] [place] [address] 01/25/2025 9:00 AM EDT Appointment [address] [place] [address] 05/09/2025 11:00 AM EDT Appointment [address] [place] [address] 05/09/2025 11:15 AM EDT Appointment [address] [place] [address] Susana Garay MD [address] [place] [address] [place] [address] documented as of this encounter Goals Goal Patient Goal Type Associated Problems Recent Progress Patient-Stated? 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, RN documented as of this encounter Visit Diagnoses Not on filedocumented in this encounter Care Teams Radiology Specialist Relationship Specialty Start Date End Date Julisa Kerr MD 100 [place], [place] [id number] PCP - General 02/22/11 Jessica Cortes MD [address] [place] [address] Internal Medicine-Rheumatology 04/26/16 Susana Garay MD [address] [place] [address] Medical Oncologist Internal Medicine-Hematology and Oncology 10/14/22 documented as of this encounter
--- OUTSIDE RECORDS SUMMARY | 2024-08-22 21:36 | XMS_ITS | Encounter Summary ---
Author Organization [place] [address] Care Team Providers Care Customer Order Clerk Name Role Phone Julisa Kerr MD Primary Care Provider [phone] Jessica Cortes MD Unavailable [phone] Susana Garay MD Unavailable [phone] Reason for Visit * Reason Comments Medication Refill Encounter Details Date Type Department Care Team (Late st Contact Info) Description 03/10/2024 Refill [facility] [address] [place] [id number] Julisa Kerr MD [address] [place] [address] Medication Refill Social History Tobacco Use Types [...] Author No 12/08/2023 3:24 PM EDT KenneyLuciano JARROD documented in this encounter Ordered Prescriptions Prescription Sig Dispense Quantity Refills Last Filled Start Date End Date hydrOXYzine (ATARAX) 25 mg Oral TabletIndications: Itching TAKE 1 TABLET BY MOUTH THREE TIMES A DAY NEEDED 90 Tablet 2 03/11/2024 05/03/2024 documented in this encounter Plan of Treatment Upcoming Encounters Date Type Department Care Team (Late st Contact Info) Description 08/31/2024 8:30 AM EST Appointment [address] [address] [place] [address] 10/25/2024 10:45 AM EST Office Visit [facility] [address] [facility] [address] [place] [address] Jessica Cortes MD [address] [facility] Building 19 [place] [address] 01/25/2025 9:00 AM EDT Appointment [place] [address] [place] [address] 05/09/2025 11:00 AM EDT Appointment [facility] [address] [place] [address] 05/09/2025 11:15 AM EDT Appointment [facility] [place] [address] Susana Garay MD [address] [facility] [place] [address] documented as of this encounter Goals Goal Patient Goal Type Associated Problems Recent Progress Patient-Stated? 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, RN documented as of this encounter Visit Diagnoses Diagnosis Itching Unspecified pruritic disorder documented in this encounter Discontinued Medications Medication Sig Discontinue Reason Start Date End Da te hydrOXYzine (ATARAX) 25 mg Oral TabletIndications:Itchin g TAKE 1 TABLET BY MOUTH THREE TIMES A DAY NEEDED 12/08/2023 03/11/2024 documented as of this encounter Care Teams Customer Order Clerk Relationship Specialty Start Date End Date Julisa Kerr MD 100 [place] [address] PCP - General 02/22/11 Jessica Cortes MD [address] [address] Internal Medicine-Rheumatology 04/26/16 Susana Garay MD [address] [facility] [place] [address] Medical Oncologist Internal Medicine-Hematology and Oncology 10/14/22 documented as of this encounter
--- OUTSIDE RECORDS SUMMARY | 2024-08-22 21:36 | XMS_ITS | Encounter Summary ---
Author Organization [place] [address] Care Team Providers Care Recovery Coordinator Name Role Phone Julisa Kerr MD Primary Care Provider [phone] Jessica Cortes MD Unavailable [phone] Susana Garay MD Unavailable [phone] Reason for Visit * Reason Comments Medication Refill Encounter Details Date Type Department Care Team (Late st Contact Info) Description 02/17/2024 Refill [facility] [address] [facility] [address] [place] [address] Jessica Cortes MD 651 [facility] Building [address] [place] [address] Medication Refill Social History Tobacco Use Types [...] encounter Miscellaneous Notes * Telephone Encounter - Emerita Carter CCMA - 02/17/2024 11:50 AM EDT Maintenance labs due, reminder sent. * Telephone Encounter - Jenny Levy LPN - 02/17/2024 10:22 AM EDT last office visit: 01/15/2024 labs: 01/28/2024 last refill: methotrexate sodium 25 mg/mL Inj Solution 4 mL 1 12/23/2023 -- Sig - Route: SUBCUTANEOUS (INJECT UNDER THE SKIN) 0.8 ML ONCE A WEEK. - Subcutaneous Sent to pharmacy as: methotrexate sodium 25 mg/mL injection solution Cosign for Ordering: Accepted by Jessica Cortes MD on 12/23/2023 3:54 PM E-Prescribing Status: Receipt confirmed by pharmacy (12/23/2023 10:32 AM EDT) No prior authorization was found for this prescription. MTX 15 mg weekly documented in this encounter Plan of Treatment Upcoming Encounters Date Type Department Care Team (Late st Contact Info) Description 08/31/2024 8:30 AM EST Appointment [address] [address] 10/25/2024 10:45 AM EST Office Visit [facility] [address] [place] [id number] Jessica Cortes MD [address] [place] [address] 01/25/2025 9:00 AM EDT Appointment [address] [address] 05/09/2025 11:00 AM EDT Appointment [address] [address] 05/09/2025 11:15 AM EDT Appointment [address] [address] Susana Garay MD [address] [place], [place] [id number] documented as of this encounter Goals Goal Patient Goal Type Associated Problems Recent Progress Patient-Stated? 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, RN documented as of this encounter Visit Diagnoses Diagnosis Rheumatoid arthritis involving multiple sites with positive rheumatoid factor (HCC) documented in this encounter Care Teams Recovery Coordinator Relationship Specialty Start Date End Date Julisa Kerr MD [address] [place] [id number] PCP - General 02/22/11 Jessica Cortes MD [address] [place] [address] Internal Medicine-Rheumatology 04/26/16 Susana Garay MD [address] [place] [address] Medical Oncologist Internal Medicine-Hematology and Oncology 10/14/22 documented as of this encounter
--- OUTSIDE RECORDS SUMMARY | 2024-08-22 21:36 | XMS_ITS | Encounter Summary ---
Author [place] [address] Care Team Providers Care Colorer Name Role Phone Julisa Kerr MD Primary Care Provider [phone] Jessica Cortes MD Unavailable [phone] Susana Garay MD Unavailable [phone] Reason for Visit * Reason Onset Date Comments Medication Refill 03/29/2024 Encounter Details Date Type Department Care Team (Late st Contact Info) Description 03/29/2024 Refill [facility] [address] [place] [id number] Julisa Kerr MD [address] [place] [address] Medication Refill Social History Tobacco Use Types [...] 12/08/2023 3:24 PM EDT Luciano KenneyJARROD * Is the person blind or does he/she have serious difficulty seeing even when wearing glasses? Answer Date of Assessment Author No 12/08/2023 3:24 PM EDT Luciano KenneyJARROD * Does this person have serious difficulty walking or climbing stairs? Answer Date of Assessment Author No 12/08/2023 3:24 PM EDT Luciano KenneyJARROD * Does this person have difficulty dressing or bathing? Answer Date of Assessment Author No 12/08/2023 3:24 PM EDT Pablito JARROD Wolf * Because of a physical, mental or emotional condition, does this person have difficulty doing errands alone such as visiting a doctor's office or shopping? Answer Date of Assessment Author No 12/08/2023 3:24 PM EDT KenneyLucianoJARROD documented as of this encounter Mental Status * Because of a physical, mental or emotional condition, does this person have serious difficulty concentrating, remembering or making decisions? Answer Entry Date Author No 12/08/2023 3:24 PM EDT Luciano Kenney JARROD documented in this encounter Plan of Treatment Upcoming Encounters Date Type Department Care Team (Late st Contact Info) Description 08/31/2024 8:30 AM EST Appointment [place] [address] [place] [address] 10/25/2024 10:45 AM EST Office Visit [facility] [address] [place] [address] [address] [place] [address] Jessica Cortes MD [address] [place] [address] [address] [place] [address] 01/25/2025 9:00 AM EDT Appointment [place] [address] [place] [address] 05/09/2025 11:00 AM EDT Appointment [place] [address] [place] [address] 05/09/2025 11:15 AM EDT Appointment [place] [address] [address] [place], [place] [id number] Susana Garay MD [address] [facility] [place] [address] documented as of this encounter [...] sciatica documented in this encounter Care Teams Colorer Relationship Specialty Start Date End Date Julisa Kerr MD [address] [place] [address] PCP - General 02/22/11 Jessica Cortes MD 651 [facility] 19 [place] [address] Internal Medicine-Rheumatology 04/26/16 Susana Garay MD [address] [facility] [place] [address] Medical Oncologist Internal Medicine-Hematology and Oncology 10/14/22 documented as of this encounter
--- OUTSIDE RECORDS SUMMARY | 2024-08-22 21:36 | XMS_ITS | Encounter Summary ---
Author Organization [place] [address] Care Team Providers Care Counter Clerk [employer] Name Role Phone Julisa Kerr MD Primary Care Provider [phone] Jessica Cortes MD Unavailable [phone] Susana Garay MD Unavailable [phone] Reason for Visit * Reason Onset Date Comments Medication Management 03/31/2024 gabapentin (NEURONTIN) 600 mg Oral Tablet Encounter Details Date Type Department Care Team (Late st Contact Info) Description 03/31/2024 Telephone [facility] [address] [place] [address] Julisa Kerr MD 100 [place] [address] Medication Management (gabapentin (NEURONTIN) 600 mg Oral [...] Assessment Author No 12/08/2023 3:24 PM EDT Lcuiano Kenney RMA * Because of a physical, [...] Telephone Encounter - Jackie Vanegas CCMA - 03/31/2024 2:44 PM EDT Spk w/ pharmacy. They state its corrected. Pt made aware. * Telephone Encounter - Teresa Weber - 03/31/2024 11:00 AM EDT Select the most appropriate reason for this telephone message: Medication Management/Problem Who is calling? Patient What medication(s) do you have concerns about: Disp Refills Start End gabapentin (NEURONTIN) 600 mg Oral Tablet 60 Tablet 1 03/29/2024 -- Sig - Route: TAKE 1 TABLET BY MOUTH TWICE A DAY - Oral Sent to pharmacy as: gabapentin 600 mg tablet (NEURONTIN) Notes to Pharmacy: Not to exceed 4 additional fills before 07/26/2024 E-Prescribing Status: Receipt confirmed by pharmacy (03/29/2024 11:38 AM EDT) Renewals Prescribing provider: Casey What are your concerns/request: pharmacy is filling an old script of once a day for 30 tablets pt would like to know if you could call the pharmacy and have this fixed Desired outcome: Clarification of prescription Last appointment date: Pharmacy: [facility] Additional notes: documented in this encounter Plan of Treatment Upcoming Encounters Date Type Department Care Team (Late st Contact Info) Description 08/31/2024 8:30 AM EST Appointment [address] [place] [address] 10/25/2024 10:45 AM EST Office Visit [facility] [address] [place] [address] Jessica Cortes MD [address]51 [facility] [address] [place] [address] 01/25/2025 9:00 AM EDT Appointment [address] [place] [address] 05/09/2025 11:00 AM EDT Appointment [address] [place] [address] 05/09/2025 11:15 AM EDT Appointment [address] [place] [address] Susana Garay MD [address] [place] [address] [place] [address] documented as of this encounter Goals Goal Patient Goal Type Associated Problems Recent Progress Patient-Stated? 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, RN documented as of this encounter Visit Diagnoses Not on filedocumented in this encounter Care Teams Counter Clerk [employer] Relationship Specialty Start Date End Date Julisa Kerr MD 100 [place] [address] PCP - General 02/22/11 Jessica Cortes MD 651 [facility] 19 [place] [address] Internal Medicine-Rheumatology 04/26/16 Susana Garay MD [address] [place] [address] [place] [address] Medical Oncologist Internal Medicine-Hematology and Oncology 10/14/22 documented as of this encounter
--- OUTSIDE RECORDS SUMMARY | 2024-08-22 21:36 | XMS_ITS | Encounter Summary ---
Author Organization [place] [address] Care Team Providers Care Electrical Prospecting Engineer Name Role Phone Julisa Kerr MD Primary Care Provider [phone] Jessica Cortes MD Unavailable [phone] Susana Garay MD Unavailable [phone] Reason for Visit * Reason Comments Medication Refill Encounter Details Date Type Department Care Team (Late st Contact Info) Description 03/28/2024 Refill [facility] [address] [facility] [address] [place] [address] Jessica Cortes MD 651 [facility] Building [address] [place] [address] Medication Refill Social History Tobacco Use Types [...] No 12/08/2023 3:24 PM EDT KenneyLucianoJARROD * Is the person blind or does [...] No 12/08/2023 3:24 PM EDT KenneyLucianoJARROD * Because of a physical, mental or [...] DAY 30 Tablet 1 03/29/2024 4 documented in this encounter Miscellaneous Notes * Telephone Encounter - Emerita Carter CCMA - 03/29/2024 11:27 AM EDT VALENTIN- 01/09/24 Labs- 02/26/24 NEXT Follow up- 04/19/24 Current therapy: MTX 15 mg weekly, Simponi 100 mg sq q month started around 02/10/22, folic acid 1 mg daily, Stopped Prednisone 5 mg daily due to weight gain and the fact it stopped helping documented in this encounter Plan of Treatment Upcoming Encounters Date Type Department Care Team (Late st Contact Info) Description 08/31/2024 8:30 AM EST Appointment [facility] [place] [address] [place] [address] 10/25/2024 10:45 AM EST Office Visit [facility] [address] [place] [address] Jessica Cortes MD [address] [place] [address] 01/25/2025 9:00 AM EDT Appointment [place] [address] [place] [address] 05/09/2025 11:00 AM EDT Appointment [place] [address] [place] [address] 05/09/2025 11:15 AM EDT Appointment [place] [address] [place] [address] Susana Garay MD [address] [place] [address] [place] [address] documented as of this encounter Goals Goal [...] Discontinue Reason Start Date End Da te methotrexate sodium 25 mg/mL Inj SolutionIndications:R 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 12/23/2023 03/29/2024 predniSONE (DELTASONE) 5 mg Oral TabletIndications:Rhe umatoid arthritis involving multiple sites with positive rheumatoid factor (HCC) Take 1 Tablet by mouth daily. 01/20/2024 03/29/2024 documented as of this encounter Care Teams Electrical Prospecting Engineer Relationship Specialty Start Date End Date Julisa Kerr MD [address] [place] [id number] PCP - General 02/22/11 Jessica Cortes MD 651 [facility] 19 [place] [address] Internal Medicine-Rheumatology 04/26/16 Susana Garay MD [address] [place] [address] Medical Oncologist Internal Medicine-Hematology and Oncology 10/14/22 documented as of this encounter
--- OUTSIDE RECORDS SUMMARY | 2024-08-22 21:36 | XMS_ITS | Encounter Summary ---
Author Organization [place] [address] Care Team Providers Care Professor Of Chemical Engineering Name Role Phone Julisa Kerr MD Primary Care Provider [phone] Jessica Cortes MD Unavailable [phone] Susana Garay MD Unavailable [phone] Reason for Visit * Reason Onset Date Comments Other 04/02/2024 Encounter Details Date Type Department Care Team (Late st Contact Info) Description 04/02/2024 Telephone [facility] [address] [facility] [address] [place] [address] Emerita Carter, CCMA Other Social History Tobacco Use Types Packs/Day [...] Author No 12/08/2023 3:24 PM EDT Luciano Kneney RMA * Does this person have difficulty [...] Telephone Encounter - Emerita Carter CCMA - 04/02/2024 1:13 PM EDT Spoke with Teresita and he will switch the script, he states new script not necessary. * Telephone Encounter - Jessica Cortes MD - 04/02/2024 1:01 PM EDT OK to switch. Do we need to send new script. * Telephone Encounter - Emerita Carter CCMA - 04/02/2024 8:25 AM EDT Teresita with [facility]: sates they cannot get the MTX 4 ml vials in. He is asking if patient can switch to the 10 ml vials making it a 84 day supply instead of 30? Please advise. documented in this encounter Plan of Treatment Upcoming Encounters Date Type Department Care Team (Late st Contact Info) Description 08/31/2024 8:30 AM EST Appointment [place] [address] [place] [address] 10/25/2024 10:45 AM EST Office Visit [facility] [address] [place] [facility] [address] [place] [address] Jessica Cortes MD [address]51 [facility] [address] [place] [address] 01/25/2025 9:00 AM EDT Appointment [address] [place] [address] 05/09/2025 11:00 AM EDT Appointment [address] [place] [address] 05/09/2025 11:15 AM EDT Appointment [address] [place] [address] Susana Garay MD [address] [place] [id number] documented as of this encounter Goals Goal Patient Goal Type Associated Problems Recent Progress Patient-Stated? Author Maintain a healthy diet, exercise regularly and maintain an ideal body weight General Porsche Ashley, RN documented as of this encounter Visit Diagnoses Not on filedocumented in this encounter Care Teams Professor Of Chemical Engineering Relationship Specialty Start Date End Date Julisa Kerr MD 100 [place] [address] PCP - General 02/22/11 Jessica Cortes MD [address] [place] [address] Internal Medicine-Rheumatology 04/26/16 Susana Garay MD [address] [facility] [place] [address] Medical Oncologist Internal Medicine-Hematology and Oncology 10/14/22 documented as of this encounter
--- OUTSIDE RECORDS SUMMARY | 2024-08-22 21:36 | XMS_ITS | Encounter Summary ---
Author Organization [place] [address] Care Team Providers Care Hand Molder Name Role Phone Julisa Kerr MD Primary Care Provider [phone] Jessica Cortes MD Unavailable [phone] Susana Garay MD Unavailable [phone] Reason for Visit * Reason Onset Date Comments Medication Refill 03/29/2024 Encounter Details Date Type Department Care Team (Late st Contact Info) Description 03/29/2024 Refill [facility] [address] [place] [address] Jessica Cortes MD [address]51 [facility] [address] [place] [address] Medication Refill Social History Tobacco Use Types [...] KenneyLuciano gallagher RMA documented in this encounter Plan of Treatment Upcoming Encounters Date Type Department Care Team (Late st Contact Info) Description 08/31/2024 8:30 AM EST Appointment [place] [address] [place] [address] 10/25/2024 10:45 AM EST Office Visit [facility] [address] [place] [address] Jessica Cortes MD [address] [facility] [address] [place] [address] 01/25/2025 9:00 AM EDT Appointment [place] [address] [place] [address] 05/09/2025 11:00 AM EDT Appointment [place] [address] [place] [address] 05/09/2025 11:15 AM EDT Appointment [facility] [address] [place], [place] [id number] Susana Garay MD [address] [facility] [place] [address] documented as of this encounter Goals Goal Patient Goal Type Associated Problems Recent Progress Patient-Stated? Author Maintain a healthy diet, exercise regularly and maintain an ideal body weight General Porsche Ashley RN documented as of this encounter Visit Diagnoses Diagnosis Rheumatoid arthritis involving multiple sites with positive rheumatoid factor (HCC) documented in this encounter Care Teams Hand Molder Relationship Specialty Start Date End Date Julisa Kerr MD 100 [place] [address] PCP - General 02/22/11 Jessica Cortes MD [address] [place] [address] Internal Medicine-Rheumatology 04/26/16 Susana Garay MD [address] [facility] [place] [address] Medical Oncologist Internal Medicine-Hematology and Oncology 10/14/22 documented as of this encounter
--- OUTSIDE RECORDS SUMMARY | 2024-08-22 21:36 | XMS_ITS | Encounter Summary ---
Author Organization [facility] [place] [address] Care Team Providers Care Hygiene Coordinator Name Role Phone Julisa Kerr MD Primary Care Provider [phone] Jessica Cortes MD Unavailable [phone] Susana Garay MD Unavailable [phone] Reason for Referral * DEXA (Routine) - Pending Review Specialty Diagnoses / Procedures Referred By Contac t Referred To Contact Radiology Diagnoses Age-related osteoporosis without current pathological fracture Procedures DX BONE DENSITY AXIAL SKELETON Jessica Cortes MD [address] [place] [address] Phone: tel: fax: Referral ID Status Reason Start Date Expiration Date V isits Requested Visits Authorized [id number] Pending Review 04/19/2024 04/19/2025 1 1 Reason for Visit * Reason Comments Follow-up Rheumatoid arthritis involving multiple sites with positive rheumatoid factor (HCC)Raynaud's phenomenon without gangrenePositive BRET (antinuclear antibody)Sicca syndrome (HCC)Neck painAge-related osteoporosis without current pathological fracturePostmenopausal stateTrochanteric bursitis of left hipPrimary osteoarthritis of both hipsAntiphospholipid syndrome (HCC)Immunocompromised patient (HCC) Encounter Details Date Type Department Care Team (Latest Contact Info) Description 04/19/2024 10:15 AM EDT Telemedicine [facility] [address] [place] [address] Jessica Cortes MD [address] [place], [place] [id number] Rheumatoid arthritis involving multiple sites with positive [...] Progress Notes * Jessica Cortes MD - 04/19/2024 10:15 AM EDT Subjective Subjective: Patient ID: Yuliet Trevino [...] hips Antiphospholipid syndrome (HCC) Immunocompromised patient (HCC) HPI The patient comes in for follow up regarding RA. Symptoms started in 2002. Seen by Chemistry Department Chair, Dr. Astorga. She was seen in [facility] but have not seen her in 6 [...] mild pain- 3/10, mild swelling. Today's visit: Patient presented today for routine care follow-up through a video visit. Patient has reviewed the terms and conditions of service as part of the registration for today's visit. Patient is aware thata video visit does not replace a [id number] exam and further services may be necessary. I advisedthe patient that we are conducting his video visit through our office in a private space on our secure network and this video visit is being conducted in accordance with [facility] telehealth/video visit regulations. Patient had no questions prior to initiation of the visit. S/p left RIOS on 01/30/[address] Clifton. It went well, the hip feels really well. Arthritis has been good for awhile and then she had a flare in the hands. They are still hurting a lot and swelling. Ankles hurt when she is on her feet a lot. Joint swelling: knuckles Dry eyes - stable. Uses eye drops. Dry mouth - not much Type of pain: ache Morning stiffness: 20-30 minutes Raynaud's: worsened in the cold weather. Current therapy: MTX 15 mg weekly, Arava 20 mg daily, Simponi 100 mg sq q month started around 02/10/22, on hold since 12/2023 due to hip replacement, folic acid 1 mg daily, Previous therapy: [...] Facial tingling/ numbness Abatacept Other (See Comments) Cefdinir Other (See Comments) Bad abdominal cramping Celecoxib Other (See Comments) Enbrel [Etanercept] Itching Humira [Adalimumab] Itching Infliximab Other (See Comments) Pustule pimples itching Mobic [Meloxicam] Hives Tocilizumab Other (See Comments) Xeljanz [Tofacitinib] Itching Current Outpatient Medications on File Prior to Visit Medication Sig Dispense Refill apixaban (ELIQUIS) 5 mg Oral Tablet Take 1 Tablet by mouth 2 times daily. 60 Tablet 2 cyanocobalamin 1,000 mcg/mL Inj Solution INJECT 1ML INTO MUSCLE EVERY MONTH 1 mL 11 gabapentin (NEURONTIN) 600 mg Oral Tablet TAKE 1 TABLET BY MOUTH TWICE A DAY 60 Tablet 1 golimumab (SIMPONI) 100 mg/mL SubQ Pen Injector Inject 1 pen under the skin every 30 days. 1 mL 2 hydrOXYzine (ATARAX) 25 mg Oral Tablet TAKE 1 TABLET BY MOUTH THREE TIMES A DAY NEEDED 90 Tablet2 leflunomide (ARAVA) 20 mg Oral Tablet TAKE 1 TABLET BY MOUTH EVERY DAY 30 Tablet 1 linaCLOtide (LINZESS) 290 mcg Oral Capsule Take 1 Capsule by mouth before breakfast. 90 Capsule 3 methotrexate sodium 25 mg/mL Inj Solution SUBCUTANEOUS (INJECT UNDER THE SKIN) 0.8 ML ONCE A WEEK. 4 mL 1 oxyCODONE (ROXICODONE) 5 mg Oral Tablet Take 1-2 Tablets by mouth every 12 hours as needed for Major Surgery/Trauma (G89.18). 20 Tablet 0 predniSONE (DELTASONE) 5 mg Oral Tablet TAKE 1 TABLET BY MOUTH EVERY DAY 30 Tablet 1 No current facility-administered medications on file prior to visit. Review of Systems Constitutional: Positive for fatigue. HENT: Dry mouth Eyes: Dry eyes Gastrointestinal: GERD Musculoskeletal: Positive for arthralgias and joint swelling. All other systems reviewed and are negative. Objective Objective: There were no vitals filed for this visit. There is no height or weight on file to calculate BMI. Physical Exam Constitutional: Appearance: She is well-developed. HENT: Head: Normocephalic and atraumatic. Musculoskeletal: Comments: Synovitis in the wrists, 2nd MCP bilaterally, 3rd left PIP visible through the video. Neurological: Mental Status: She is alert. Psychiatric: Mood and Affect: Mood normal. Lab Results Component Value Date WBC 15.5 (H) 04/17/2024 HGB 12.3 04/17/2024 HCT 42.0 04/17/2024 MCV 85.5 04/17/2024 PLT 437 (H) 04/17/2024 Chemistry Component Value Date/Time NA 141 02/26/2024 1051 NA 138 11/23/2019 0000 K 3.7 02/26/2024 1051 K 4.6 11/23/2019 0000 CL 106 02/26/2024 1051 CL 102 11/23/2019 0000 CO2 22 02/26/2024 1051 CO2 27 11/23/2019 0000 BUN 7 02/26/2024 1051 BUN 11 11/23/2019 0000 CREATININE 0.66 02/26/2024 1051 CREATININE 0.7 11/23/2019 0000 GLU 81 02/26/2024 1051 GLU 103 (H) 07/01/2017 1532 Component Value Date/Time CALCIUM 9.0 02/26/2024 1051 CALCIUM 9.60 11/23/2019 0000 ALKPHOS 138 (H) 02/26/2024 1051 ALKPHOS 112 11/23/2019 0000 AST 14 02/26/2024 1051 AST 20 11/23/2019 0000 ALT 9 02/26/2024 1051 ALT 9 11/23/2019 0000 BILITOT 0.2 11/23/2019 0000 Lab Results Component Value Date CRP 24.61 (H) 02/26/2024 Lab Results Component Value Date SEDRATE 21 02/26/2024 XR KNEE LEFT AP LAT INT EXT [...] 3. Intact cruciate/collateral ligaments and extensor mechanism. Assessment and Plan: Yuliet Trevino was seen today for follow-up, rheumatoid arthritis, raynaud's syndrome, osteoporosis, osteoarthritis, foot pain, hip pain, extremity weakness and difficulty walking. Diagnoses and all orders for this visit: Rheumatoid arthritis involving multiple sites, with positive rheumatoid factor (HCC) Dx in 2002 [address] Astorga in [facility]. Records from [facility] received and reviewed. The patient was seen in 05/11/13 for initial evaluation. Presented with polyarticular joint involvement- large and small joints- shoulders, elbows, knees, wrists, knuckles, toes. Per records she had low titer (+) RF, (-) CCP, (+) BRET centromere pattern > 8.0 with negative SSA/SSB, ISSUING OPERATOR, Scl 70, dsDNA Records indicate she used [...] 2nd, 5th left MCP, 3rd left PIP. Arava 20 mg daily restarted 12/2023. Continue MTX 15 mg weekly. Simponi 100 mg q month on hold since 12/2023 due to left hip replacement surgery, the patient has never restarted it. She has mild synovitis in the wrists and 2nd MCP bilaterally as well as 3rd left PIP visible through video today. Advised the patient to restart Simponi 100 mg q month. I would like to reassess her joints once sheis on MTX, Arava and Simponi regularly since Simponi has been working well for her. If she continues to have synovitis while on the above treatment we may think about changing Simponito Rinvoq. Hepatitis panel checked and negative. Patient should hold therapy while being treated for infections. Patient should not receive live vaccines while on therapy. Raynaud's phenomenon without gangrene Positive BRET (antinuclear antibody) 1:640, centromere pattern Sicca syndrome (HCC) Suspect secondary Sjogren's due to RA. SSA and SSB antibodies negative Behavioral modifications- sugar free gum and candy, frequent fluid intake, eye drops Regular ophthalmology and dental appointments No history of digital ulcerations No other symptoms to suggest active CTD. Monitor Neck pain x rays 11/11/18 revealed mild degenerative changes, no evidence of atlanto axial disease MRI of the C spine 01/23/19 revealed degenerative disc changes at the C5-C6 and C6-C7 levels, no high-grade foraminal stenosis or neural canal stenosis. PT worsened the symptoms Evaluated by ortho, s/p RFA's, those helped, last one not that effective Regular stretches, heat, ice, massage Diclofenac 75 mg BID Age-related osteoporosis without [...] Reclast 5 mg IV started on 01/23/2024 Recheck DXA this month Advised to take Ca/Vit D supplement Primary osteoarthritis involving multiple joints Primary osteoarthritis [...] Hem/Onc, Dr. Garay Needs life long anticoagulation. Immunocompromised patient (HCC) Increased risk for infections due to immunosuppression Prevnar 13 given 12/13/16 Pneumovax 23 given 03/17/17 Therapeutic drug monitoring Tuberculosis screening TB gold negative 03/24/23, recheck in 2 months Labs every 6-8 weeks while on MTX and Arava to monitor for toxicities. Last lab work: CBC 04/17/24- leukopenia and thrombocytosis, CMP normal on 02/26/24. Check CMP this week S/p left hip replacement on 01/30/24. Advised to continue MTX and Arava, no need to stop for surgery.Held Simponi in 12/2023 prior to left hip replacement. Has not restarted yet. Return in about 3 months (around 07/20/2024). documented in this encounter Plan of Treatment Upcoming Encounters Date Type Department Care Team (Late st Contact Info) Description 08/31/2024 8:30 AM EST Appointment [place] [address] [place] [address] 10/25/2024 10:45 AM EST Office Visit [facility] [address] [place] [address] Jessica Cortes MD [address] [place] [address] 01/25/2025 9:00 AM EDT Appointment [place] [address] [place] [address] 05/09/2025 11:00 AM EDT Appointment [place] [address] [place] [address] 05/09/2025 11:15 AM EDT [address]ment [address] [place] [address] Susana Garay MD [address] [place] [address] [place] [address] Scheduled Orders Name Type Priority Associated Diagnoses Orde r Schedule COMPREHENSIVE METABOLIC PANEL Lab Routine Rheumatoid arthritis involving multiple sites with positive rheumatoid factor (HCC) Therapeutic drug monitoring Every 6 weeks for 10 Occurrences starting 04/19/2024 until 04/19/2025, 2 completed CBC WITH DIFF Lab Routine Rheumatoid arthritis involving multiple sites with positive rheumatoid factor (HCC) Therapeutic drug monitoring Every 6 weeks for 10 Occurrences starting 04/19/2024 until 04/19/2025, 3 completed C-REACTIVE PROTEIN Lab Routine Rheumatoid arthritis involving multiple sites with positive rheumatoid factor (HCC) Every 6 weeks for 10 Occurrences starting 04/19/2024 until 04/19/2025, 3 completed SEDIMENTATION RATE AUTOMATED Lab Routine Rheumatoid arthritis involving multiple sites with positive rheumatoid factor (HCC) Every 6 weeks for 10 Occurrences starting 04/19/2024 until 04/19/2025, 3 completed documented as of this encounter Goals Goal Patient Goal Type Associated Problems Recent Progress Patient-Stated? Author Maintain a healthy diet, exercise regularly and maintain an ideal body weight General Porsche Ashley RN documented as of this encounter Results * (ABNORMAL) SEDIMENTATION RATE AUTOMATED (08/04/2024 11:57 AM EST) Sed Rate 47(H) 0 - 30 mm/hr 08/04/2024 4:15 PM EST [facility] Blood VENOUS BLOOD / Unknown Venipuncture / Unknown 08/04/2024 11:57 AM EST 08/04/2024 11:57 AM EST us Jessica Cortes MD HEMATOLOGY ORDERABLES Fin al Result Performing Organization Address City/[facility] Co de Phone Number [facility] [address] [facility] , [place] [address] * (ABNORMAL) C-REACTIVE PROTEIN (08/04/2024 11:57 AM EST) CRP 28.39(H) <=5.00 mg/L 08/04/2024 10:24 PM EST [facility] Blood VENOUS BLOOD / Unknown Venipuncture / Unknown 08/04/2024 11:57 AM EST 08/04/2024 11:57 AM EST us Jessica Cortes MD CHEMISTRY ORDERABLES Siobhan l Result [facility] [address] [facility] , [place] [address] * (ABNORMAL) CBC WITH DIFF (08/04/2024 11:57 [...] 4:15 PM EST [facility] Neut Percent 51.7 % 08/04/2024 4:15 PM EST [facility] Comment:Neutrophils equals s egs plus bands Imm Gran% 0.6 % 08/04/2024 4:15 PM EST [facility] Comment:Automated count of m etamyelocytes, myelocytes and promyelocytes. Lymph Percent 29.3 % 08/04/2024 4:15 PM EST [facility] Pleasants Percent 13.2 % 08/04/2024 4:15 PM EST [facility] Eos Percent 4.5 % 08/04/2024 4:15 PM EST [facility], [facility] Baso Percent 0.7 % 08/04/2024 4:15 PM EST [facility], [facility] Neut # 4.4 1.6 - 6.1 x10(3)/[facility] 08/04/2024 4:15 PM EST [facility], [facility] Comment:Neutrophils equals s egs plus bands IMMGRAN# 0.1 0.0 - 0.1 x10(3)/[facility] 08/04/2024 4:15 PM EST [facility] Comment:Automated count of m etamyelocytes, myelocytes and promyelocytes. An absolute IG <0.1 is reported as 0.0. Lymph # 2.5 1.2 - 3.9 x10(3)/[facility] 08/04/2024 4:15 PM EST [facility], [facility] Pleasants # 1.1(H) 0.3 - 0.9 x10(3)/[facility] 08/04/2024 4:15 PM EST [facility] Eos# 0.4 0.0 - 0.5 x10(3)/[facility] 08/04/2024 4:15 PM EST [facility] Baso # 0.1 0.0 - 0.1 x10(3)/[facility] 08/04/2024 4:15 PM EST [facility] Blood VENOUS BLOOD / Unknown Venipuncture / Unknown 08/04/2024 11:57 AM EST 08/04/2024 11:57 AM EST us Jessica Cortes MD HEMATOLOGY ORDERABLES Fin al Result [facility], [facility] [address] [facility] , [place] [address] * COMPREHENSIVE METABOLIC PANEL (08/04/2024 11:57 AM EST) Sodium 136 136 - 145 mmol/L 08/04/2024 10:24 PM EST [facility] Potassium 4.0 3.5 - 5.0 mmol/L 08/04/2024 10:24 PM EST [facility] Chloride 100 98 - 107 mmol/L 08/04/2024 10:24 PM EST [facility] Total CO2 23 22 - 29 mmol/L 08/04/2024 10:24 PM EST [facility] Anion Gap 13 7 - 16 mmol/L 08/04/2024 10:24 PM EST [facility] Calcium 9.0 8.6 - 10.4 mg/dL 08/04/2024 10:24 PM EST [facility] Glucose Lvl 74 70 - 99 mg/dL 08/04/2024 10:24 PM EST [facility] BUN 9 6 - 20 mg/dL 08/04/2024 10:24 PM EST [facility] Creatinine 0.71 0.51 - 1.30 mg/dL 08/04/2024 10:24 PM EST [facility] Albumin 3.7 3.5 - 5.2 gm/dL 08/04/2024 10:24 PM EST [facility] Total Protein 7.0 6.4 - 8.3 gm/dL 08/04/2024 10:24 PM EST [facility] Bili Total 0.2 0.2 - 1.3 mg/dL 08/04/2024 10:24 PM EST [facility] ALT 18 <=41 U/L 08/04/2024 10:24 PM EST [facility] AST 24 <=40 U/L 08/04/2024 10:24 PM EST [facility] Alk Phos 94 36 - 123 U/L 08/04/2024 10:24 PM EST [facility] eGFR (CKD-EPIcr 2020) 101 >=60 mL/min/1.7 3 m2 08/04/2024 10:24 PM EST [facility] Comment:Estimated GFR was ca lculated using the CKD-EPIcr (2020) equation refit without race. The equation is recommended by the National Kid[employer] - [place] [employer] Neph[employer] Task Force. Blood VENOUS BLOOD / Unknown Venipuncture / Unknown 08/04/2024 11:57 AM EST 08/04/2024 11:57 AM EST us Jessica Cortes MD CHEMISTRY ORDERABLES Siobhan l Result [facility], [address] , [address] [place] [id number] [facility] [address] [place] [address] * SEDIMENTATION RATE AUTOMATED (06/14/2024 10:58 AM EDT) Pathologist [facility] Sed Rate 24 0 - 30 mm/hr 06/14/2024 4:10 PM EDT [facility] Blood VENOUS BLOOD / Unknown Venipuncture / Unknown 06/14/2024 10:58 AM EDT 06/14/2024 10:58 AM EDT us Jessica Cortes MD HEMATOLOGY ORDERABLES Fin al Result [facility] [address] , [place] [address] * C-REACTIVE PROTEIN (06/14/2024 10:58 AM EDT) [facility] CRP <3.00 <=5.00 mg/L 06/14/2024 4:15 PM EDT [facility] Blood VENOUS BLOOD / Unknown Venipuncture / Unknown 06/14/2024 10:58 AM EDT 06/14/2024 10:58 AM EDT us Jessica Cortes MD CHEMISTRY ORDERABLES Siobhan l Result Performing Organization Address City/[facility]/ZIP Co de Phone Number [facility] [address] , [address] [place] [phone] * (ABNORMAL) CBC WITH DIFF (06/14/2024 10:58 AM EDT) [facility] WBC 12.1(H) 3.7 - 10.3 x10(3)/mcL 06/14/2024 4:10 PM EDT [facility], [facility] RBC 5.14 3.90 - 5.20 x10(6)/mcL 06/14/2024 4:10 PM EDT [facility], [facility] Hgb 12.9 11.2 - 15.7 g/dL 06/14/2024 4:10 PM EDT [facility] Hct 42.3 34.0 - 45.0 % 06/14/2024 4:10 PM EDT [facility] MCV 82.3 80.0 - 100.0 fL 06/14/2024 4:10 PM EDT [facility] MCH 25.1(L) 26.0 - 34.0 pg 06/14/2024 4:10 PM EDT [facility] MCHC 30.5(L) 30.7 - 35.5 g/dL 06/14/2024 4:10 PM EDT [facility] RDW 16.9(H) <=14.9 % 06/14/2024 4:10 PM EDT [facility] Platelet 400(H) 155 - 369 x10(3)/mcL 06/14/2024 4:10 PM EDT [facility] MPV 10.5 8.8 - 12.5 fL 06/14/2024 4:10 PM EDT [facility] Neut Percent 65.2 % 06/14/2024 4:10 PM EDT [facility] Comment:Neutrophils equals s egs plus bands Imm Gran% 2.1 % 06/14/2024 4:10 PM EDT [facility] Comment:Automated count of m etamyelocytes, myelocytes and promyelocytes. IG >1% represents a left shift and provides an early indication of an infection or inflammatory process. Lymph Percent 21.0 % 06/14/2024 4:10 PM EDT [facility] Pleasants Percent 8.8 % 06/14/2024 4:10 PM EDT [facility] Eos Percent 2.1 % 06/14/2024 4:10 PM EDT [facility] Baso Percent 0.8 % 06/14/2024 4:10 PM EDT [facility] Neut # 7.9(H) 1.6 - 6.1 x10(3)/mcL 06/14/2024 4:10 PM EDT [facility] Comment:Neutrophils equals s egs plus bands IMMGRAN# 0.3(H) 0.0 - 0.1 x10(3)/mcL 06/14/2024 4:10 PM EDT [facility] Comment:Automated count of m etamyelocytes, myelocytes and promyelocytes. An absolute IG <0.1 is reported as 0.0. Lymph # 2.5 1.2 - 3.9 x10(3)/[facility] 06/14/2024 4:10 PM EDT [facility] Pleasants # 1.1(H) 0.3 - 0.9 x10(3)/[facility] 06/14/2024 4:10 PM EDT [facility] Eos# 0.3 0.0 - 0.5 x10(3)/[facility] 06/14/2024 4:10 PM EDT [facility] Baso # 0.1 0.0 - 0.1 x10(3)/[facility] 06/14/2024 4:10 PM EDT [facility] Blood VENOUS BLOOD / Unknown Venipuncture / Unknown 06/14/2024 10:58 AM EDT 06/14/2024 10:58 AM EDT us Jessica Cortes MD HEMATOLOGY ORDERABLES Fin al Result [facility], [facility] [address] [facility] , [place] [address] * COMPREHENSIVE METABOLIC PANEL (06/14/2024 10:58 AM EDT) Sodium 139 136 - 145 mmol/L 06/14/2024 4:15 PM EDT [facility] Potassium 3.5 3.5 - 5.0 mmol/L 06/14/2024 4:15 PM EDT [facility] Chloride 104 98 - 107 mmol/L 06/14/2024 4:15 PM EDT [facility] Total CO2 26 22 - 29 mmol/L 06/14/2024 4:15 PM EDT [facility] Anion Gap 9 7 - 16 mmol/L 06/14/2024 4:15 PM EDT [facility] Calcium 9.5 8.6 - 10.4 mg/dL 06/14/2024 4:15 PM EDT [facility] Glucose Lvl 90 70 - 99 mg/dL 06/14/2024 4:15 PM EDT [facility] BUN 7 6 - 20 mg/dL 06/14/2024 4:15 PM EDT [facility] Creatinine 0.76 0.51 - 1.30 mg/dL 06/14/2024 4:15 PM EDT [facility] Albumin 3.8 3.5 - 5.2 gm/dL 06/14/2024 4:15 PM EDT [facility] Total Protein 7.0 6.4 - 8.3 gm/dL 06/14/2024 4:15 PM EDT [facility] Bili Total 0.2 0.2 - 1.3 mg/dL 06/14/2024 4:15 PM EDT [facility] ALT 7 <=41 U/L 06/14/2024 4:15 PM EDT [facility] AST 12 <=40 U/L 06/14/2024 4:15 PM EDT [facility] Alk Phos 90 36 - 123 U/L 06/14/2024 4:15 PM EDT [facility] eGFR (CKD-EPIcr 2020) 93 >=60 mL/min/1.7 3 m2 06/14/2024 4:15 PM EDT [facility] Comment:Estimated GFR was ca lculated using the CKD-EPIcr (2020) equation refit without race. The equation is recommended by the National Kidney Foundation - [place] [employer] Nephrology Task Force. Blood VENOUS BLOOD / Unknown Venipuncture / Unknown 06/14/2024 10:58 AM EDT 06/14/2024 10:58 AM EDT us Jessica Cortes MD CHEMISTRY ORDERABLES Siobhan l Result [facility], [facility] [address] [facility] , [place] [address] [facility] [address] [place] [address] * DX BONE DENSITY AXIAL SKELETON (05/06/2024 3:51 PM EDT) Anatomical Region Laterality Modality Dexa Scan 05/06/2024 Impressions 05/14/2024 12:36 PM EDT Indication: The patient is a post-menopausal female under age 65 with clinical risk factors for an osteoporotic fracture that requires a bone density assessment. Study was performed on [employer]. Bone Density: Region ?BMD ? T-score [...] Cortes MD IMG DEXA ORDERABLES Final Result * QUANTIFERON TB GOLD (04/27/2024 2:46 PM EDT) Quantiferon-TB Gold in Tube Indeterminate Negative 04/28/2024 5:56 PM EDT [facility] Comment:Indeterminate result s are uncommon and may relate to the immune status of the individual being tested. Indeterminate results may also be due to inappropriate collection, handling or storage of the blood collection tubes. Repeat sample collection may give a definitive result when the indeterminate value is related to specimen handling. Quantiferon Mitogen minus NIL 0.2459 IU/mL 04/28/2024 5:56 PM EDT [facility] Quantiferon NIL 0.0191 IU/mL 5:56 PM EDT [facility], [facility] QUANTIFERON TB1 MINUS NIL 0.0012 IU/mL 04/28/2024 5:56 PM EDT [facility], [facility] QUANTIFERON TB2 MINUS NIL -0.0075 IU/mL 04/28/2024 5:56 PM EDT [facility] Blood VENOUS BLOOD / Unknown Venipuncture / Unknown 04/27/2024 2:46 PM EDT 04/27/2024 2:46 PM EDT Narrative [facility], [facility] - 04/28/2024 5:56 PM EDT Interferon gamma [...] al Result [facility] [address] [facility] , [address] [place] [id number] * (ABNORMAL) COMPREHENSIVE METABOLIC PANEL (04/27/2024 2:46 [...] - 1.3 mg/dL 04/27/2024 11:51 PM EDT [facility] ALT 22 <=41 U/L 04/27/2024 11:51 PM EDT [facility] AST 26 <=40 U/L 04/27/2024 11:51 PM EDT [facility] Alk Phos 98 36 - 123 U/L 04/27/2024 11:51 PM EDT [facility] eGFR (CKD-EPIcr 2020) 74 >=60 mL/min/1.7 3 m2 04/27/2024 11:51 PM EDT [facility] Comment:Estimated GFR was ca lculated using the CKD-EPIcr (2020) equation refit without race. The equation is recommended by the National Kidney Foundation - [place] [employer] of Nephrology Task Force. Blood VENOUS BLOOD / Unknown Venipuncture / Unknown 04/27/2024 2:46 PM EDT 04/27/2024 2:46 PM EDT Jessica Cortes MD CHEMISTRY ORDERABLES Siobhan l Result Performing Organization Address City/[facility]/ZIP Co de Phone Number [facility] 1 [facility] , [address] [place] [phone] [facility] 1 [place] [address] * (ABNORMAL) SEDIMENTATION RATE AUTOMATED (04/27/2024 2:46 PM EDT) Sed Rate 44(H) 0 - 30 mm/hr 04/27/2024 7:49 PM EDT [facility] Blood VENOUS BLOOD / Unknown Venipuncture / Unknown 04/27/2024 2:46 PM EDT 04/27/2024 2:46 PM EDT Jessica Cortes MD HEMATOLOGY ORDERABLES Fin al Result Performing Organization Address City/[facility]/ZIP Co de Phone Number [facility] [address] [facility] , [place] [address] * (ABNORMAL) C-REACTIVE PROTEIN (04/27/2024 2:46 PM EDT) CRP 63.85(H) <=5.00 mg/L 04/27/2024 11:51 PM EDT [facility] Blood VENOUS BLOOD / Unknown Venipuncture / Unknown 04/27/2024 2:46 PM EDT 04/27/2024 2:46 PM EDT Jessica Cortes MD CHEMISTRY ORDERABLES Siobhan l Result [facility] [address] [facility] , [place] [address] * (ABNORMAL) CBC WITH DIFF (04/27/2024 2:46 [...] 04/27/2024 7:49 PM EDT [facility] Neut Percent 80.0 % 04/27/2024 7:49 PM EDT [facility] Comment:Neutrophils equals s egs plus bands Imm Gran% 2.4 % 04/27/2024 7:49 PM EDT [facility] Comment:Automated count of m etamyelocytes, myelocytes and promyelocytes. IG >1% represents a left shift and provides an early indication of an infection or inflammatory process. Lymph Percent 8.0 % 04/27/2024 7:49 PM EDT [facility] Pleasants Percent 9.1 % 04/27/2024 7:49 PM EDT [facility] Eos Percent 0.0 % 04/27/2024 7:49 PM EDT [facility] Baso Percent 0.5 % 04/27/2024 7:49 PM EDT [facility] Neut # 9.5(H) 1.6 - 6.1 x10(3)/mcL 04/27/2024 7:49 PM EDT [facility] Comment:Neutrophils equals s egs plus bands IMMGRAN# 0.3(H) 0.0 - 0.1 x10(3)/mcL 04/27/2024 7:49 PM EDT [facility] Comment:Automated count of m etamyelocytes, myelocytes and promyelocytes. An absolute IG <0.1 is reported as 0.0. Lymph # 1.0(L) 1.2 - 3.9 x10(3)/mcL 04/27/2024 7:49 PM EDT [facility] Pleasants # 1.1(H) 0.3 - 0.9 x10(3)/mcL 04/27/2024 7:49 PM EDT [facility] Eos# 0.0 0.0 - 0.5 x10(3)/mcL 04/27/2024 7:49 PM EDT [facility] Baso # 0.1 0.0 - 0.1 x10(3)/mcL 04/27/2024 7:49 PM EDT [facility] Blood VENOUS BLOOD / Unknown Venipuncture / Unknown 04/27/2024 2:46 PM EDT 04/27/2024 2:46 PM EDT Jessica Cortes MD HEMATOLOGY ORDERABLES Fin al Result [facility] 1 [facility] [address] [place] [phone] documented in this encounter Visit Diagnoses Diagnosis [...] Tuberculosis screening Screening examination for pulmonary tuberculosis Age-related osteoporosis without current pathological fracture Senile osteoporosis documented in this encounter Care Teams Hygiene Coordinator Relationship Specialty Start Date End Date Julisa Kerr MD [address] [place] [address] PCP - General 02/22/11 Jessica Cortes MD [address] [address] Internal Medicine-Rheumatology 04/26/16 Susana Garay MD 1 [facility] [place] [address] Medical Oncologist Internal Medicine-Hematology and Oncology 10/14/22 documented as of this encounter
--- OUTSIDE RECORDS SUMMARY | 2024-08-22 21:36 | XMS_ITS | Encounter Summary ---
Author Organization [place] [address] Care Team Providers Care Legal Support Assistant Name Role Phone Julisa Kerr MD Primary Care Provider [phone] Jessica Cortes MD Unavailable [phone] Susana Garay MD Unavailable [phone] Reason for Visit * Reason Comments Medication Refill Encounter Details Date Type Department Care Team (Late st Contact Info) Description 03/10/2024 Refill [facility] [address] [facility] [address] [place] [address] Jessica Cortes MD 651 [facility] Building [address] [place] [address] Medication Refill Social History Tobacco Use Types [...] End Date leflunomide (ARAVA) 20 mg Oral TabletIndications: Rheumatoid arthritis involving multiple sites with positive rheumatoid factor (HCC) TAKE 1 TABLET BY MOUTH EVERY DAY 30 Tablet 1 03/10/2024 06/15/2024 documented in this encounter Miscellaneous Notes * Telephone Encounter - Mel Michaels MA - 03/10/2024 8:23 AM EDT [facility]-01/09/24 Labs-02/26/24 NEXT Follow up-04/19/24 Chart reviewed. documented in this encounter Plan of Treatment Upcoming Encounters Date Type Department Care Team (Late st Contact Info) Description 08/31/2024 8:30 AM EST Appointment [facility] [address] [place] [address] 10/25/2024 10:45 AM EST Office Visit [facility] 651 [facility] [address] [place] [address] Jessica Cortes MD 651 [facility] 19 [place] [address] 01/25/2025 9:00 AM EDT Appointment [place] [address] [place] [address] 05/09/2025 11:00 AM EDT Appointment [address] [place] [address] 05/09/2025 11:15 AM EDT Appointment [address] [place] [address] Susana Garay MD 1 [facility] [address] documented as of this encounter Goals Goal [...] (HCC) Take 1 Tablet by mouth daily. 01/09/2024 03/10/2024 documented as of this encounter Care Teams Legal Support Assistant Relationship Specialty Start Date End Date Julisa Kerr MD 100 [place] [address] PCP - General 02/22/11 Jessica Cortes MD 651 [facility] 19 [place] [address] Internal Medicine-Rheumatology 04/26/16 Susana Garay MD [address] [place] [address] [address] [place], [place] [id number] Medical Oncologist Internal Medicine-Hematology and Oncology 10/14/22 documented as of this encounter
--- OUTSIDE RECORDS SUMMARY | 2024-08-22 21:36 | XMS_ITS | Encounter Summary ---
Author Organization [place] [address] Care Team Providers Care Transit Proof Machine Operator Name Role Phone Julisa Kerr MD Primary Care Provider [phone] Jessica Cortes MD Unavailable [phone] Susana Garay MD Unavailable [phone] Reason for Visit * Reason Onset Date Comments Medication Refill 03/29/2024 Encounter Details Date Type Department Care Team (Late st Contact Info) Description 03/29/2024 Refill [facility] [place] [address] Susana Garay MD [address] [place] [address] Medication Refill Social History Tobacco Use Types [...] End Date apixaban (ELIQUIS) 5 mg Oral TabletIndications: Antiphospholipid syndrome (HCC),History of DVT in adulthood Take 1 Tablet by mouth 2 times daily. 60 Tablet 2 03/29/2024 05/03/2024 documented in this encounter Miscellaneous Notes * Telephone Encounter - Meenakshi Solo MA - 03/30/2024 2:37 PM EDT Patient called back, she is scheduled for labs and a follow up with Dr. Garay on 05/03/2024. * Telephone Encounter - Meenakshi Solo MA - 03/30/2024 8:46 AM EDT LVM for patient to call back and schedule labs + F/U with Dr. Garay. I also sent a [employer] message to the patient. * Telephone Encounter - Meenakshi Solo MA - 03/29/2024 12:13 PM EDT LVM for patient to call back and schedule labs + F/U with Dr. Garay * Telephone Encounter - Mel Joyce RN - 03/29/2024 11:36 AM EDT Refill appropriate. Per last office note- indefinite NOAC. Patient to be schedule for year followup in April. Script sent. documented in this encounter Plan of Treatment Upcoming Encounters Date Type Department Care Team (Late st Contact Info) Description 08/31/2024 8:30 AM EST Appointment [address] [place] [address] 10/25/2024 10:45 AM EST Office Visit [facility] 651 [facility] [address] [place] [address] Jessica Cortes MD [address] [place] [address] Building 19 [place] [address] 01/25/2025 9:00 AM EDT Appointment [address] [place] [address] 05/09/2025 11:00 AM EDT Appointment [place] [address] [place] [address] 05/09/2025 11:15 AM EDT Appointment [address] [place] [address] Susana Garay MD [address] [place] [address] [place] [address] documented as of this encounter Goals Goal [...] Discontinue Reason Start Date End Da te ELIQUIS 5 mg Oral TabletIndications:Antiph ospholipid syndrome (HCC),History of DVT in adulthood TAKE 1 TABLET BY MOUTH TWICE A DAY Reorder 10/07/2023 03/29/2024 documented as of this encounter Care Teams Transit Proof Machine Operator Relationship Specialty Start Date End Date Julisa Kerr MD 100 [place] [address] PCP - General 02/22/11 Jessica Cortes MD [address] [place] [address] Internal Medicine-Rheumatology 04/26/16 Susana Garay MD [address] [place] [address] Medical Oncologist Internal Medicine-Hematology and Oncology 10/14/22 documented as of this encounter
--- OUTSIDE RECORDS SUMMARY | 2024-08-22 21:36 | XMS_ITS | Encounter Summary ---
Author Organization [place] [address] Care Team Providers Care Account Executive Agribusiness Name Role Phone Julisa Kerr MD Primary Care Provider [phone] Jessica Cortes MD Unavailable [phone] Susana Garay MD Unavailable [phone] Reason for Visit * Reason Comments Medication Refill Encounter Details Date Type Department Care Team (Late st Contact Info) Description 02/18/2024 Refill [facility] 100 [place] [address] Julisa Kerr MD 100 [place] [address] Medication Refill Social History Tobacco Use Types [...] Refills Last Filled Start Date End Date cyanocobalamin 1,000 mcg/mL Inj SolutionIndications :Vitamin B 12 deficiency INJECT 1ML INTO MUSCLE EVERY MONTH 1 mL 11 02/18/2024 documented in this encounter Plan of Treatment Upcoming Encounters Date Type Department Care Team (Late st Contact Info) Description 08/31/2024 8:30 AM EST Appointment [address] [place] [address] 10/25/2024 10:45 AM EST Office Visit [facility] [address] [facility] [address] [place] [address] Jessica Cortes MD 651 [facility] Building 19 [place] [address] 01/25/2025 9:00 AM EDT [address]ointment [address] [place] [address] 05/09/2025 11:00 AM EDT Appointment [place] [address] [place] [address] 05/09/2025 11:15 AM EDT Appointment [facility] [address] [place] [address] Susana Garay MD [address] [facility] [place] [address] documented as of this encounter Goals Goal Patient Goal Type Associated Problems Recent Progress Patient-Stated? 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, RN documented as of this encounter Visit Diagnoses Diagnosis Vitamin B 12 deficiency Other B-complex deficiencies documented in this encounter Care Teams Account Executive Agribusiness Relationship Specialty Start Date End Date Julisa Kerr MD 100 [place] [address] PCP - General 02/22/11 Jessica Cortes MD [address] [address] Internal Medicine-Rheumatology 04/26/16 Susana Garay MD [address] [facility] [place] [address] Medical Oncologist Internal Medicine-Hematology and Oncology 10/14/22 documented as of this encounter
--- OUTSIDE RECORDS SUMMARY | 2024-08-22 21:36 | XMS_ITS | Encounter Summary ---
Author Organization [place] [address] Care Team Providers Care Relations Mgr Name Role Phone Julisa Kerr MD Primary Care Provider [phone] Jessica Cortes MD Unavailable [phone] Susana Garay MD Unavailable [phone] Reason for Visit * Reason Onset Date Comments Orders 04/17/2024 CBC Encounter Details Date Type Department Care Team (Late st Contact Info) Description 04/17/2024 Telephone [facility] 100 [place] [address] Julisa Kerr MD 100 [place] [address] Orders (CBC) Social History Tobacco Use Types Packs/Day Years [...] Telephone Encounter - Jackie Vanegas CCMA - 04/17/2024 9:40 AM EDT ordered * Telephone Encounter - Elo Priest MA - 04/17/2024 9:39 AM EDT Tried to call pt. No answer. Lab order is being placed right now. * Telephone Encounter - Vianca Cueto - 04/17/2024 9:35 AM EDT Select the most appropriate reason for this telephone message: Order Request Who is requesting the Order(s): Patient What Orders are being requested: Lab Reason Orders are Needed (Diagnosis): CBC Is patient waiting at lab/hospital/facility: Yes (if Yes, shahnaz high priority); Did you first attempt to warm transfer to the office with no answer? Yes If non-[facility] facility, where should the order be faxed (include fax number): n/a Upcoming PCP appointment date: Additional Information: Please advs documented in this encounter Plan of Treatment Upcoming Encounters Date Type Department Care Team (Late st Contact Info) Description 08/31/2024 8:30 AM EST Appointment [facility] [address] [place] [address] 10/25/2024 10:45 AM EST Office Visit [facility] [address] [place] [phone] Jessica Cortes MD [address] [place] [address] 01/25/2025 9:00 AM EDT Appointment [address] [address] 05/09/2025 11:00 AM EDT Appointment [address] [address] 05/09/2025 11:15 AM EDT Appointment [address] [address] Susana Garay MD [address] [place] [address] [place] [address] documented as of this encounter Goals Goal Patient Goal Type Associated Problems Recent Progress Patient-Stated? 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, RN documented as of this encounter Results * (ABNORMAL) CBC WITH [...] 2:39 PM EDT [facility] MPV 9.9 8.8 - 12.5 fL 04/17/2024 [...] 2:39 PM EDT [facility] Newton Percent 10.6 % 04/17/2024 2:39 PM EDT [facility] Eos Percent 1.5 % 04/17/2024 2:39 PM EDT [facility] Baso Percent 0.8 % 04/17/2024 2:39 PM EDT [facility] Neut # 10.1(H) 1.6 - 6.1 x10(3)/mcL 04/17/2024 2:39 PM EDT [facility] Comment:Neutrophils equals s egs plus bands IMMGRAN# 0.4(H) 0.0 - 0.1 x10(3)/[facility] 04/17/2024 2:39 PM EDT [facility] Comment:Automated count of m etamyelocytes, myelocytes and promyelocytes. An absolute IG <0.1 is reported as 0.0. Lymph # 3.0 1.2 - 3.9 x10(3)/[facility] 04/17/2024 2:39 PM EDT [facility] Newton # 1.6(H) 0.3 - 0.9 x10(3)/[facility] 04/17/2024 2:39 PM EDT [facility] Eos# 0.2 0.0 - 0.5 x10(3)/[facility] 04/17/2024 2:39 PM EDT [facility] Baso # 0.1 0.0 - 0.1 x10(3)/[facility] 04/17/2024 2:39 PM EDT [facility] [place], [facility] Blood VENOUS BLOOD / Unknown Venipuncture / Unknown 04/17/2024 9:44 AM EDT 04/17/2024 9:44 AM EDT us Julisa Kerr MD HEMATOLOGY ORDERABLES Final Re sult [facility], [facility] 1 [facility], [place] [address] documented in this encounter Visit Diagnoses Diagnosis Elevated platelet count- Primary Essential thrombocythemia documented in this encounter Care Teams Relations Mgr Relationship Specialty Start Date End Date Julisa Kerr MD 100 [place] [address] PCP - General 02/22/11 Jessica Cortes MD 651 [facility] 19 [place] [address] Internal Medicine-Rheumatology 04/26/16 Susana Garay MD [address] [facility] [place] [address] Medical Oncologist Internal Medicine-Hematology and Oncology 10/14/22 documented as of this encounter
--- OUTSIDE RECORDS SUMMARY | 2024-08-22 21:37 | XMS_ITS | Encounter Summary ---
Author Organization [place] [address] Care Team Providers Care Army Manager Name Role Phone Julisa Kerr MD Primary Care Provider [phone] Jessica Cortes MD Unavailable [phone] Susana Garay MD Unavailable [phone] Reason for Visit * Reason Onset Date Comments Results 02/02/2024 Encounter Details Date Type Department Care Team (Late st Contact Info) Description 02/02/2024 Telephone [facility] Neurology [facility] [address] [place] [address] StewartArie reyes MD [address] [place] [address] Results Social History Tobacco Use Types Packs/Day Years [...] encounter Miscellaneous Notes * Telephone Encounter - Rhina Bond MA - 02/02/2024 3:26 PM EDT Informed patient of results via Grid20/20hart since they are active * Telephone Encounter - Rhina Bond MA - 02/02/2024 3:09 PM EDT ----- Message from Arie Stewart MD sent at 02/02/2024 2:54 PM EDT ----- Please let patient know that she does have some herniated discs in her neck but that are not compression her spinal cord and would not be causing the weakness that she is having. documented in this encounter Plan of Treatment Upcoming Encounters Date Type Department Care Team (Late st Contact Info) Description 08/31/2024 8:30 AM EST Appointment [place] [address] [place] [address] 10/25/2024 10:45 AM EST Office Visit [facility] [address] [facility] [address] [place] [address] Jessica Cortes MD 651 [facility] 19 [place] [address] 01/25/2025 9:00 AM EDT Appointment [address] [place] [address] 05/09/2025 11:00 AM EDT Appointment [address] [place] [address] 05/09/2025 11:15 AM EDT Appointment [address] [place] [address] Susana Garay MD [address] [place] [address] [place] [address] documented as of this encounter Goals Goal Patient Goal Type Associated Problems Recent Progress Patient-Stated? Author Maintain a healthy diet, exercise regularly and maintain an ideal body weight General Porsche Ashley, RN documented as of this encounter Visit Diagnoses Not on filedocumented in this encounter Care Teams Army Manager Relationship Specialty Start Date End Date Julisa Kerr MD [address] [place] [address] PCP - General 02/22/11 Jessica Cortes MD [address] [place] [address] Internal Medicine-Rheumatology 04/26/16 Susana Garay MD [address] [place] [address] [place] [address] Medical Oncologist Internal Medicine-Hematology and Oncology 10/14/22 documented as of this encounter
--- OUTSIDE RECORDS SUMMARY | 2024-08-22 21:37 | XMS_ITS | Encounter Summary ---
Author Organization [facility] [place] [address] Care Team Providers Care Animal Impersonator Name Role Phone Julisa Kerr MD Primary Care Provider [phone] Jessica Cortes MD Unavailable [phone] Susana Garay MD Unavailable [phone] Reason for Visit * Reason Comments Pharmacy Rheumatology Management Simponi Encounter Details Date Type Department Care Team (Latest Contact Info) Description 01/30/2024 Specialty Pharmacy [facility] [address] [id number] Rhina Rubi CPhT Pharmacy Rheumatology Management (Simponi) Social History [...] documented in this encounter Progress Notes * Rhina Rubi CPhT - 01/30/2024 10:41 AM EDT Specialty Pharmacy Refill Coordination Note Contacted Yuliet Trevino today regarding refills of Simponi. Copay amount: $0. Sent [employer] message. Patient informed of copay. * Armando Caba CPhT - 01/30/2024 10:41 AM EDT Specialty Pharmacy Refill Coordination Note Contacted Yuliet Trevino today regarding refills of Simponi. Medication to be delivered by [facility] on 02/10. Copay amount: $0 for 30 d/s Sent [employer] message. Patient informed of copay. * Armando Caba CPhT - 01/30/2024 10:41 AM EDT [facility] Patient send [employer] message to cancel Simponi order as provider plans to switch patients medication. Order cancelled in [place]. Will disenroll patient at this time. * Armando Caba CPhT - 01/30/2024 10:41 AM EDT Specialty Pharmacy MyChart request Yuliet Trevino requested a refill of Simponi via [employer]. In previous message, patient wantedto stop Simponi therapy. Sent [employer] message for clarification. * Armando Caba CPhT - 01/30/2024 10:41 AM EDT [facility] Patient responded that she is back on Simponi therapy. PA required. Will route to [facility] for CR. * Rosaura Tee, [facility] - 01/30/2024 10:41 AM EDT Specialty Pharmacy - Rheumatology Clinical Review Yuliet Trevino is a 53 y.o. female. Rheumatology: Patient was prescribed golimumab (Simponi) 100mg SUBQ every 30 day(s) for continuation of therapy for Rheumatoid arthritis (M05.79). Medication needs loading dose: No Allergies Allergen Reactions Orencia [Abatacept (With Maltose)] Swelling and Other (See Comments) Facial tingling/ numbness Abatacept Other (See Comments) Celecoxib Other (See Comments) Tocilizumab Other (See Comments) Cefdinir Other (See Comments) Bad abdominal cramping Enbrel [Etanercept] Itching Humira [Adalimumab] Itching Infliximab Other (See Comments) Pustule pimples itching Mobic [Meloxicam] Hives Xeljanz [Tofacitinib] Itching Risk/ Status: Hysterectomy Test: No results found for: PREGTESTUR Lab Results Component Value Date QUANTIFERON Indeterminate 04/27/2024 HEPBSAG Negative 04/22/2016 HEPBIGM Negative 04/22/2016 HEPCAB Negative 04/22/2016 Lab Results Component Value Date WBC 12.1 (H) 06/14/2024 RBC 5.14 06/14/2024 HGB 12.9 06/14/2024 HCT 42.3 06/14/2024 MCV 82.3 06/14/2024 MCH 25.1 (L) 06/14/2024 MCHC 30.5 (L) 06/14/2024 RDW 16.9 (H) 06/14/2024 PLT 400 (H) 06/14/2024 MPV 10.5 06/14/2024 IMMGRAN 2.1 06/14/2024 LYMPHOPCT 21.0 06/14/2024 MONOPCT 8.8 06/14/2024 EOSPCT 2.1 06/14/2024 NEUTROABS 7.9 (H) 06/14/2024 IMMGRANABS 0.3 (H) 06/14/2024 MONOSABS 1.1 (H) 06/14/2024 EOSABS 0.3 06/14/2024 BASOABS 0.1 06/14/2024 Lab Results Component Value Date CREATININE 0.76 06/14/2024 BUN 7 06/14/2024 AST 12 06/14/2024 ALT 7 06/14/2024 Current Outpatient Medications - WARNING: List may be incomplete due to filtering Medication Sig apixaban Take 1 Tablet by mouth 2 times daily. cyanocobalamin INJECT 1ML INTO MUSCLE EVERY MONTH gabapentin Take 1 Tablet by mouth 2 times daily. Simponi Inject 1 pen under the skin every 30 days. hydrOXYzine Take 1 Tablet by mouth 3 times daily as needed. ibuprofen Take 1 Tablet by mouth 3 times daily. leflunomide TAKE 1 TABLET BY MOUTH EVERY DAY linaCLOtide Take 1 Capsule by mouth before breakfast. methotrexate sodium SUBCUTANEOUS (INJECT UNDER THE SKIN) 0.8 ML ONCE A WEEK. predniSONE TAKE 1 TABLET BY MOUTH EVERY DAY Previous medications utilized: abatacept (Orencia), adalimumab (Humira), etanercept (Enbrel), golimumab (Simponi), infliximab, sarilumab (Kevzara), tocilizumab (Actemra), tofacitinib (Xeljanz), methotrexate (Trexall), hydroxychloroquine (Plaquenil), leflunomide (Arava), and Kevzara, NSAIDs Medication being used with prescribed meds: methotrexate, Arava RAPID-3 score: 25.7 on 01/09/24 Will medication be used with another biologic or targeted synthetic DMARD? No Clinical Impression: Clinically appropriate to continue therapy per current guidelines. Rosaura Tee RPH Specialty Pharmacist * Armando Caba CPhT - 01/30/2024 10:41 AM EDT [facility] Prior Authorization Submitted PA for Simponi to [employer] insurance via [employer] ([employer] [id number]). Will follow up on 06/23. * Patricia Reyes CPhT - 01/30/2024 10:41 AM EDT [facility] Prior Authorization Determination Received notice of PA approval for Simponi. PA approved from 06/21/2024 to 06/21/2025. Patient is able to fill at [facility]. Copay is 0. Sent [employer] message. for refill. * Kaitlin Levy CPhT - 01/30/2024 10:41 AM EDT Specialty Pharmacy Refill Coordination Note Contacted Yuliet Trevino today regarding refills of Simponi. Medication to be delivered by [facility] on 06/25. Copay amount: $0 Sent [employer] message. Patient informed of copay. documented in this encounter Plan of Treatment Upcoming Encounters Date Type Department Care Team (Late st Contact Info) Description 08/31/2024 8:30 AM EST Appointment [address] [address] [place] [address] 10/25/2024 10:45 AM EST Office Visit [facility] [address] [facility] [address] [place] [address] Jessica Cortes MD [address] [facility] [address] [place] [address] 01/25/2025 9:00 AM EDT Appointment [address] [place] [address] 05/09/2025 11:00 AM EDT Appointment [address] [place] [address] 05/09/2025 11:15 AM EDT [address]ointment [address] [place] [address] Susana Garay MD [address] [place], [place] [id number] documented as of this encounter Goals Goal Patient Goal Type Associated Problems Recent Progress Patient-Stated? 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, RN documented as of this encounter Visit Diagnoses Not on filedocumented in this encounter Care Teams Animal Impersonator Relationship Specialty Start Date End Date Julisa Kerr MD [address] [place] [address] PCP - General 02/22/11 Jessica Cortes MD [address] [facility] [address] [place] [address] Internal Medicine-Rheumatology 04/26/16 Susana Garay MD [address] [facility] [address] [place], [place] [id number] Medical Oncologist Internal Medicine-Hematology and Oncology 10/14/22 documented as of this encounter
--- OUTSIDE RECORDS SUMMARY | 2024-08-22 21:37 | XMS_ITS | Encounter Summary ---
Author Organization [facility] Address [address] [place] [address] Care Team Providers Care Temperature Logging Operator Name Role Phone Julisa Kerr MD Primary Care Provider [phone] Jessica Cortes MD Unavailable [phone] Susana Garay MD Unavailable [phone] Reason for Visit * Reason Onset Date Comments Other 01/19/2024 Encounter Details Date Type Department Care Team (Late st Contact Info) Description 01/19/2024 [phone] Jordy Clifton MD [address] [place] [address] Other Social History Tobacco Use Types Packs/Day [...] encounter Miscellaneous Notes * Telephone Encounter - Marie Suárez - 01/19/2024 11:19 AM EDT Tried returning Belinda's call to let her know that I already have her authorization for her surgery on01/30/2024. She probably didn't talk to the right person or dept regarding her surgery auth. No answer/LMOR * Telephone Encounter - Priti Dixon MA - 01/19/2024 11:09 AM EDT Please see message. * Telephone Encounter - Gina Puckett, Clerical Staff - 01/19/2024 11:05 AM EDTSummary: PHONE CALL PT CALLING STATING THAT HER INSURANCE HAS NOT GOTTEN A REQUEST FOR HER SX ON 01/30/24. SHE WOULD LIKE A CALL BACK TO CONFIRM THIS IS IN THE WORKS AND THAT HER INSURANCE WILL CONFIRM IN [facility] BEFORE SX DATE. PLEASE CALL PT TO DISCUSS documented in this encounter Plan of Treatment Upcoming Encounters Date Type Department Care Team (Late st Contact Info) Description 08/31/2024 8:30 AM EST Appointment [address] [address] 10/25/2024 10:45 AM EST Office Visit [facility] [address] [place] [address] Jessica Cortes MD [address] [facility] [address] [place] [address] 01/25/2025 9:00 AM EDT Appointment [address] [address] 05/09/2025 11:00 AM EDT Appointment [address] [address] 05/09/2025 11:15 AM EDT Appointment [address] [address] Susana Garay MD [address] [place], [place] [id number] documented as of this encounter Goals Goal Patient Goal Type Associated Problems Recent Progress Patient-Stated? 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 RN documented as of this encounter Visit Diagnoses Not on filedocumented in this encounter Care Teams Temperature Logging Operator Relationship Specialty Start Date End Date Julisa Kerr MD [address] [place] [address] PCP - General 02/22/11 Jessica Cortes MD [address] [facility] [address] [place] [address] Internal Medicine-Rheumatology 04/26/16 Susana Garay MD [address] [place] [address] Medical Oncologist Internal Medicine-Hematology and Oncology 10/14/22 documented as of this encounter
--- OUTSIDE RECORDS SUMMARY | 2024-08-22 21:37 | XMS_ITS | Encounter Summary ---
Author Organization [place] [address] Care Team Providers Care Government Instructor Name Role Phone Julisa Kerr MD Primary Care Provider [phone] Jessica Cortes MD Unavailable [phone] Susana Garay MD Unavailable [phone] Reason for Visit * Reason Comments Follow-up Rheumatoid Arthritis Raynaud's Syndrome Osteoporosis Osteoarthritis Foot Pain bilateral Hip Pain left Extremity Weakness Difficulty Walking Encounter Details Date Type Department Care Team (Latest Contact Info) Description 01/09/2024 11:15 AM EDT Office Visit [facility] [address] [place] [address] Jessica Cortes MD [address] [facility] [address] [phone] Rheumatoid arthritis involving multiple sites with positive rheumatoid factor (HCC) (Primary Dx); Raynaud's phenomenon without gangrene; Positive BRET (antinuclear antibody); Sicca syndrome (HCC); Neck pain; Age-related osteoporosis without current pathological fracture; Postmenopausal state; Trochanteric bursitis of left hip; Primary osteoarthritis of both hips; Antiphospholipid syndrome (HCC); Immunocompromised patient (HCC); Therapeutic drug monitoring; Tuberculosis screening Discharge [...] Sign Reading Time Taken Comments Blood Pressure 110/78 01/09/2024 11:20 AM EDT Pulse 94 01/09/2024 11:20 AM EDT Temperature - - Respiratory Rate 17 01/09/2024 11:20 AM EDT Oxygen Saturation - - Inhaled Oxygen Concentration - - Weight 61.3 kg (135 lb 3.2 oz) 01/09/2024 11:20 AM EDT Height 160 cm (5' 3 ) 01/09/2024 11:20 AM EDT Body Mass Index 23.95 01/09/2024 11:20 AM EDT documented in this encounter Functional [...] by mouth daily. 30 Tablet 1 01/09/2024 03/10/2024 documented in this encounter Discharge Disposition Disposition Code Departure Means Destination Home or Self Care documented in this encounter Progress Notes * Jessica Cortes MD - 01/09/2024 11:15 AM EDT Subjective Subjective: Patient ID: Yuliet Trevino is a 53 y.o. female. Chief Complaint Patient presents with Follow-up Rheumatoid Arthritis Raynaud's Syndrome Osteoporosis Osteoarthritis Foot Pain bilateral Hip Pain left Extremity Weakness Difficulty Walking HPI The patient comes in for follow up regarding RA. Symptoms started in 2002. Seen by Polygraph Examiner, Dr. Astorga. She was seen in [facility] but have not seen her in 6 [...] mild pain- 3/10, mild swelling. Today's visit: She has been having head bobbing, weakness in the arms. She has problems lifting the arms. CT in [facility] was normal. She continues to have pain in the left hip and has been limping and using the cane during ambulation. Very mild numbness in the arms, mainly in the hands. Ankles have been swelling up the longer she stays up on her feet. Weaned off prednisone since she had weight gain, swelling and it did not seem to work anymore. She run out of Arava in September, did not realize it. Joint swelling: wrists and knuckles Dry eyes - stable. Uses eye drops. Dry mouth - not much Type of pain: ache Morning stiffness: up to 2 hours Raynaud's: worsened in the cold weather. Current therapy: MTX 15 mg weekly, Simponi 100 mg sq q month started around 02/10/22, folic acid 1 mg daily, Previous therapy: [...] Prior to Visit Medication Sig Dispense Refill ELIQUIS 5 mg Oral Tablet TAKE 1 TABLET BY MOUTH TWICE A DAY 90 Tablet 2 golimumab (SIMPONI) 100 mg/mL SubQ Pen Injector Inject 1 pen under the skin every 30 days. 1 mL 2 hydrOXYzine (ATARAX) 25 mg Oral Tablet TAKE 1 TABLET BY MOUTH THREE TIMES A DAY NEEDED (Patient taking differently: Take 25 mg by mouth nightly.) 90 Tablet 2 linaCLOtide (LINZESS) 290 mcg Oral Capsule Take 1 Capsule by mouth before breakfast. 90 Capsule 3 methotrexate sodium 25 mg/mL Inj Solution SUBCUTANEOUS (INJECT UNDER THE SKIN) 0.8 ML ONCE A WEEK. 4 mL 1 diclofenac (VOLTAREN) 75 mg Oral Tablet, Delayed Release (E.C.) TAKE 1 TABLET BY MOUTH TWICE A DAY (Patient not taking: Reported on 01/09/2024) 60 Tablet 0 DULoxetine (CYMBALTA) 30 mg Oral Capsule, Delayed Release(E.C.) TAKE 1 CAPSULE BY MOUTH EVERY DAY (Patient not taking: Reported on 01/09/2024) 30 Capsule 10 fUROsemide (LASIX) 20 mg Oral Tablet TAKE 1 TABLET BY MOUTH EVERY DAY NEEDED (Patient not taking: Reported on 01/09/2024) 90 Tablet 3 gabapentin (NEURONTIN) 600 mg Oral Tablet Take 1 Tablet by mouth nightly. (Patient not taking: Reported on 01/09/2024) 30 Tablet 0 oxyCODONE-acetaminophen (PERCOCET) 5-325 mg Oral Tablet Take 1 Tablet by mouth every 6 hours as needed for Acute Pain > 3 Days Medically Necessary (R52). (Patient not taking: Reported on 01/09/2024) 20 Tablet 0 predniSONE (DELTASONE) 5 mg Oral Tablet Take 1 Tablet by mouth daily. (Patient not taking: Reportedon 01/09/2024) 30 Tablet 0 No current facility-administered medications on file prior to visit. Review of Systems Constitutional: Positive for fatigue. Weight gain HENT: Positive for congestion and trouble swallowing. Dry mouth Eyes: Dry eyes Gastrointestinal: GERD Musculoskeletal: Positive for arthralgias, back pain, joint swelling, myalgias and neck pain. Neurological: Positive for dizziness and headaches. Psychiatric/Behavioral: Depression All other systems reviewed and are negative. Objective Objective: Vitals: 01/09/24 1120 BP: 110/78 Pulse: 94 Resp: 17 Weight: 135 lb 3.2 oz (61.3 kg) Height: 5' 3 (1.6 m) Body mass index is 23.95 kg/m??. Physical Exam Constitutional: Appearance: She is well-developed. HENT: Head: Normocephalic and atraumatic. Musculoskeletal: Comments: Synovitis in the wrists, 5th right MCP, 4th, 5th right PIP, moderate synovitis in the 1st, 2nd, 5th left MCP, 3rd left PIP. Tenderness to the wrists, 5th right MCP, 4ht, 5th right PIP, 1st,2nd, 5th left MCP, 3rd left PIP. 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 ROM of the hips intact, pain at the lefttrochanteric bursa and in the left gluteus during the ROM exam. Neurological: Mental Status: She is alert. Psychiatric: Mood and Affect: Mood normal. Rapid 3: 25.7 Lab Results Component Value Date WBC 9.3 12/15/2023 HGB 13.3 12/15/2023 HCT 44.4 12/15/2023 MCV 91.0 12/15/2023 PLT 545 (H) 12/15/2023 Chemistry Component Value Date/Time NA 140 12/15/2023 1228 NA 138 11/23/2019 0000 K 4.2 12/15/2023 1228 K 4.6 11/23/2019 0000 CL 103 12/15/2023 1228 CL 102 11/23/2019 0000 CO2 28 12/15/2023 1228 CO2 27 11/23/2019 0000 BUN 8 12/15/2023 1228 BUN 11 11/23/2019 0000 CREATININE 0.76 12/15/2023 1228 CREATININE 0.7 11/23/2019 0000 GLU 82 12/15/2023 1228 GLU 103 (H) 07/01/2017 1532 Component Value Date/Time CALCIUM 9.9 12/15/2023 1228 CALCIUM 9.60 11/23/2019 0000 ALKPHOS 94 12/15/2023 1228 ALKPHOS 112 11/23/2019 0000 AST 19 12/15/2023 1228 AST 20 11/23/2019 0000 ALT 12 12/15/2023 1228 ALT 9 11/23/2019 0000 BILITOT 0.2 11/23/2019 0000 Lab Results Component Value Date CRP 33.43 (H) 12/15/2023 Lab Results Component Value Date SEDRATE 23 12/15/2023 XR KNEE LEFT AP LAT INT EXT [...] KNEE LEFT WO CONTRAST 06/10/2023 9:36 AM FINDINGS: MENISCI: Medial Meniscus: Broadly/smoothly attenuated inner rim margins of the medial meniscus from anterior to posterior. No root rupture. Moderate effusion. Lateral Meniscus: Broadly/smoothly attenuated remnant margins of the lateral meniscus from posterior horn and anterior horn. LIGAMENTS/STABILIZERS: Intact ACL and PCL. Intact MCL with reactive MCL periligamentous/posteromedial joint edema. Intact IT band, LCL, and biceps femoris/popliteus tendons. OSSEOUS & ARTICULAR STRUCTURES: Bones: No fracture or malalignment. No characteristic bone marrow contusion/edema pattern, or worrisome marrow infiltration. Femorotibial Compartments: Broad chondral attenuation of the weightbearing medial femoral condyle with reactive subchondral bone edema indicating focal high-grade chondral loss. Mild tibial plateau and lateral femoral condyle chondromalacia. Patellofemoral Compartment: Advanced patellar chondral loss including the median ridge and medial facet. Broad high-grade chondral wear of the central/medial trochlea. EXTENSOR MECHANISM/RETINACULA: Intact quadriceps and patellar tendons. Intact retinacula. FLUID: Large complex effusion with findings of synovitis. Large space-occupying complex Forbes's cyst (7.5 cm superior/inferior by 3.5 cm AP by 4.3 cm transverse). IMPRESSION: 1. Constellation of of MRI findings [...] [address] Astorga in [facility]. Records from [facility] received and reviewed. The patient was seen in 05/11/13 for initial evaluation. Presented with polyarticular joint involvement- large and small joints- shoulders, elbows, knees, wrists, knuckles, toes. Per records she had low titer (+) RF, (-) CCP, (+) BRET centromere pattern > 8.0 with negative SSA/SSB, MOBILE GAME ENGINEER, Scl 70, dsDNA Records indicate she used [...] joint pain, swelling. Non adherent to therapy. MTX started 15 mg in 2012, changed [...] the wrists and couple MCP joints. Simponi 50 mg q month, increased to 100 mg q month Continue Simponi 100 mg q month Continue MTX 15 mg weekly. Arava increased to 20 mg daily 06/20/23 but she has not liam taking it since September, run out, did not even realize it Stopped Prednisone 5 mg daily due to weight gain and the fact it stopped helping Synovitis in the exam today in the wrists, 5th right MCP, 4th, 5th right PIP, moderate synovitis inthe 1st, 2nd, 5th left MCP, 3rd left PIP. Will restart Arava 20 mg daily. Advised the patient I would like to reassess her joints once she is on MTX, Arava and Simponi regularly since Simponi has been working well for her. If she continues to have synovitis we may think about changing Simponi to Rinvoq. Failed Plaquenil 200 mg twice a day, started 06/28/22, lowered to 200 mg daily due to nausea, stopped 12/09/22 S/p right TKA 08/22/[address] Clifton Hepatitis panel checked and negative. Patient should hold therapy while being treated for infections. Patient should not receive live vaccines while on therapy. - leflunomide (ARAVA) 20 mg Oral Tablet; Take 1 Tablet by mouth daily. Raynaud's phenomenon without gangrene Positive BRET (antinuclear [...] been taking it due to GI issues Discussed change to Reclast 5 mg IV Recheck DXA 03/2024 Advised to take Ca/Vit D supplement Other orders - zoledronic acid (RECLAST) 5 mg/100 mL IVPB 5 mg - 0.9 % NaCl infusion - sodium chloride 0.9% syringe - sodium chloride 0.9 % sterile syringe 10 mL - heparin flush 100 unit/mL injection 500 Units - diphenhydrAMINE (BENADRYL) injection 50 mg - methylPREDNISolone sodium succinate (SOLU-MEDROL) 125 mg in sterile water injection - famotidine (PEPCID) injection 20 mg - albuterol (PROVENTIL HFA;VENTOLIN HFA) inhaler 1-2 Puff - 0.9 % NaCl infusion - EPINEPHrine injection 0.3 mg Trochanteric bursitis of the left hip Primary osteoarthritis of both hips Left bursa tenderness x rays of the left hip 10/27/23 showed progression of osteoarthritis, moderate changes on left, mildin the right hip. Discussed possible hip injection with cortisol per ortho or IR Continue stretches and topical OTC creams Voltaren [...] monitor for toxicities. Labs normal, reviewed 12/15/23 Scheduled for left hip replacement on 01/30/24. Advised to continue MTX and Arava, no need to stop for surgery. Advised to hold Simponi now, scheduled for the injection 01/13/24. She will restart after cleared by the surgeon. Return in about 3 months (around 04/09/2024). Visit time 45 minutes which included review of records, face to face time with patient, counseling regarding treatment options, perioperative care, and documentation. documented in this encounter Plan of Treatment Upcoming Encounters Date Type Department Care Team (Late st Contact Info) Description 08/31/2024 8:30 AM EST [address]ment [address] [place] [address] 10/25/2024 10:45 AM EST Office Visit [facility] [address] [place] [address] Jessica Cortes MD [address] [place] [address] 01/25/2025 9:00 AM EDT [address]ment [address] [place] [address] 05/09/2025 11:00 AM EDT [address]ment [address] [place] [address] 05/09/2025 11:15 AM EDT Appointment [address] [place] [address] Susana Garay MD [address] [place] [address] [place] [address] documented as of this encounter Goals Goal [...] Postmenopausal state Asymptomatic postmenopausal status (age-related) (natural) Trochanteric bursitis of left hip Enthesopathy of hip region Primary osteoarthritis of both hips Primary localized osteoarthrosis, pelvic region and thigh Antiphospholipid syndrome (HCC) Primary hypercoagulable state Immunocompromised patient (HCC) Unspecified immunity deficiency Therapeutic drug monitoring Encounter for therapeutic drug monitoring Tuberculosis screening Screening examination for pulmonary tuberculosis documented in this encounter Discontinued Medications Medication Sig Discontinue Reason Start Date End Da te alendronate (FOSAMAX) 70 mg Oral TabletIndications:Age-re lated osteoporosis without current pathological fracture TAKE 1 TABLET BY MOUTH EVERY 7 DAYS. TAKE IN THE MORNING WITH A GLASS OF WATER AND DO NOT TAKE ANYTHING ELSE BY MOUTH OR LIE DOWN FOR THE NEXT 30 MIN. Side effects 11/21/2023 01/09/2024 leflunomide (ARAVA) 20 mg Oral TabletIndications:Rheuma toid arthritis involving multiple sites with positive rheumatoid factor (HCC) Take 1 Tablet by mouth daily. Reorder 10/03/2023 01/09/2024 documented as of this encounter Care Teams Government Instructor Relationship Specialty Start Date End Date Julisa Kerr MD [address] [place] [address] PCP - General 02/22/11 Jessica Cortes MD [address] [facility] [address] [place] [address] Internal Medicine-Rheumatology 04/26/16 Susana Garay MD [address] [place] [address] [place] [address] Medical Oncologist Internal Medicine-Hematology and Oncology 10/14/22 documented as of this encounter
--- OUTSIDE RECORDS SUMMARY | 2024-08-22 21:37 | XMS_ITS | Encounter Summary ---
Author Organization [place] [place] [address] Care Team Providers Care Pillowcase Turner Name Role Phone Julisa Kerr MD Primary Care Provider [phone] Jessica Cortes MD Unavailable [phone] Susana Garay MD Unavailable [phone] Encounter Details Date Type Department Care Team (Late st Contact Info) Description 01/29/2024 Plan of Care Documentation [facility] [place] [id number] Social History Tobacco Use Types Packs/Day Years [...] 3:24 PM EDT Kenney JARROD Wolf * Because of a physical, [...] Date Author No 12/08/2023 3:24 PM EDT Pablito JARROD Wolf documented in this encounter Miscellaneous Notes * Therapist Plan of Care - Rae Caro, PT - 01/29/2024 12:50 PM EDT Images from the original note were not included. Please sign to acknowledge agreement with this updated plan of care. Physical Therapy Hip Evaluation 01/29/2024 Visit # /Insurance : 1/medicaid Onset Date: 01/27/23 Diagnosis: pre OP RIOS Precautions: universal Referring Provider Follow Up: Etienne , 01/30/24 surgery Subjective: Yuliet Trevino is a 53 y.o., female, referred by Etienne. Primary complaint: hip pain x 1 year and she ignored it. She has pain with temperature cahgnes. Shecannot lift leg at times. She has RA and OA Pain scale: 7/10 hip ,knee and hands Pain increases when: walking,lifing leg in/out of bed needs assist with hands at times Pain decreases when: rest, not using She has essential tremors in her head. Sensation/Neurovascular: denies today Diagnostic Tests: hip OA Have you received any Speech or Physical therapy this year? No Are you currently receiving any Home Health services? No Any problems with speech, communication, memory? No Barriers to learning? No Recent falls? 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 [place] : she has 7 dogs and 5 cats , 1 parrot ADLs: see foto Primary physical needs at work/ with hobbies/at home: sitting, standing, walking, lifting, pushing,pulling, going up/down steps, carrying, bending, and squatting Living situation: and daughter next door with grandchildren, 3 steps with one rail into home, laundry in basement Past Medical History: Diagnosis Date Antiphospholipid syndrome (HCC) Arthritis DVT (deep venous thrombosis) (HCC) 06/08/2022 Right Past Surgical History: Procedure Laterality Date HYSTEROSCOPY IR 2 LEVEL TRANSFORAMINAL EPIDURAL INJ CERVICAL SPINE 06/2021 BARBIE AND BSO 09/29/2000 TOTAL KNEE ARTHROPLASTY Right 08/21/2023 Current Outpatient Medications Medication Sig Dispense Refill ELIQUIS 5 mg Oral Tablet TAKE 1 TABLET BY MOUTH TWICE A DAY (Patient not taking: Reported on 01/28/2024) 90 Tablet 2 gabapentin (NEURONTIN) 600 mg Oral Tablet Take 1 Tablet by mouth 2 times daily. 60 Tablet 1 golimumab (SIMPONI) 100 mg/mL SubQ Pen Injector Inject 1 pen under the skin every 30 days. (Patientnot taking: Reported on 01/28/2024) 1 mL 2 hydrOXYzine (ATARAX) 25 mg Oral Tablet TAKE 1 TABLET BY MOUTH THREE TIMES A DAY NEEDED (Patient taking differently: Take 25 mg by mouth nightly.) 90 Tablet 2 leflunomide (ARAVA) 20 mg Oral Tablet Take 1 Tablet by mouth daily. 30 Tablet 1 linaCLOtide (LINZESS) 290 mcg Oral Capsule Take 1 Capsule by mouth before breakfast. 90 Capsule 3 methotrexate sodium 25 mg/mL Inj Solution SUBCUTANEOUS (INJECT UNDER THE SKIN) 0.8 ML ONCE A WEEK. 4 mL 1 predniSONE (DELTASONE) 5 mg Oral Tablet Take 1 Tablet by mouth daily. 30 Tablet 1 No current facility-administered medications for this encounter. Allergies: Orencia [abatacept (with maltose)], Abatacept, Cefdinir, Celecoxib, Enbrel [etanercept],Humira [adalimumab], Infliximab, Mobic [meloxicam], Tocilizumab, and Xeljanz [tofacitinib] Patient stated goals: review for RIOS Observation: Body Composition: Estimated body mass index is 23.56 kg/m?? as calculated from the following: Height as of 01/09/24: 5' 3 (1.6 m). Weight as of 01/28/24: 133 lb (60.3 kg). Assistive Devices: none Skin integrity: Intact Posture: normal Gait: antalgic gait left side with decreased step length and stride. Objective: Palpation: TTP left greater trochanter. AROM: Hip and knee AROM : wfls for gait. IPSILATERAL Ankle AROM: grossly WFL Trunk ROM: grossly WFL Strength: Right LE wnls Left LE wnls: Neuro Screen: SLR: Negative Light touch to dermatomes: Normal DTRs: Quadriceps (L3-4): N/A Gatrocnemius (S1): N/A Coordination: alt toe taps. Special Tests: not tested. Treatment today included: Evaluation and HEP Instruction Response to Treatment: No change in pain or function Response to HEP: Instruction/patient education, Verbalized understanding, Returned demonstration Therapeutic exercises: TE: 25 min Education re: car transfers, turning with a walker, sit to stand and gait with walker, up and down steps with cane and one rail: good go to heaven and bad down first. Use of ice, walking, anterior hip precautions and circled in her book Reviewed : RIOS exercises and given RIOS book Ankle pumps in sitting and supine Supine quad sets, glut sets, heel slides , SAQ, hip abd slides x 10 each leg. Assessment: Yuliet Trevino presents with signs and symptoms consistent with left hip OA with having RIOS tomorrow. She has gait abnormality, weakness and pain left hip. Functional Impairments and Activity Limitations: walking, lifting, steps, Patient presents as a good rehabilitation candidate. Goals for today Functional Goals: Patient to demonstrate independence with HEP. Met Plan: This evaluation to serve as D/C summary, if the patient doesn't return for further treatment. Time In: 1000 Time Out: 1040 Total timed treatment: 25 min Total treatment time: 40 min Charges: TE x 2, low eval x 1 Signed: Rae Caro PT Date: 01/29/2024 documented in this encounter Plan of Treatment Upcoming Encounters Date Type Department Care Team (Late st Contact Info) Description 08/31/2024 8:30 AM EST Appointment [address] [place] [address] 10/25/2024 10:45 AM EST Office Visit [facility] [address] [facility] [address] [place] [address] Jessica Cortes MD [address] [facility] [address] [place] [address] 01/25/2025 9:00 AM EDT [address]ointment [address] [place] [address] 05/09/2025 11:00 AM EDT Appointment [address] [place] [address] 05/09/2025 11:15 AM EDT Appointment [address] [place] [address] Susana Garay MD [address] [facility] [address] [place] [id number] documented as of this encounter Goals Goal Patient Goal Type Associated Problems Recent Progress Patient-Stated? 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, RN documented as of this encounter Visit Diagnoses Not on filedocumented in this encounter Care Teams Pillowcase Turner Relationship Specialty Start Date End Date Julisa Kerr MD [address] [place] [address] PCP - General 02/22/11 Jessica Cortes MD [address] [facility] [address] [place], [place] [id number] Internal Medicine-Rheumatology 04/26/16 Susana Garay MD [address] [facility] [address] [place] [id number] Medical Oncologist Internal Medicine-Hematology and Oncology 10/14/22 documented as of this encounter
--- OUTSIDE RECORDS SUMMARY | 2024-08-22 21:37 | XMS_ITS | Encounter Summary ---
Author Organization [place] [address] Care Team Providers Care Lead Miner Name Role Phone Julisa Kerr MD Primary Care Provider [phone] Jessica Cortes MD Unavailable [phone] Susana Garay MD Unavailable [phone] Reason for Visit * Reason Comments Pre-op Exam Encounter Details Date Type Department Care Team (Late st Contact Info) Description 01/28/2024 9:00 AM EDT [facility] [address] [place] [phone] Julisa Kerr MD [address] [place] [address] Pre-op examination (Primary Dx); Antiphospholipid syndrome (HCC); Immunocompromised patient (HCC); Arthritis of left hip; Rheumatoid arthritis involving multiple sites with positive rheumatoid factor (HCC); Vitamin B 12 deficiency; Irritable bowel syndrome with constipation and diarrhea; Acute bilateral low back pain without sciatica Social History Tobacco Use Types Packs/Day Years [...] Sign Reading Time Taken Comments Blood Pressure 120/80 01/28/2024 9:16 AM EDT Pulse - - Temperature 36.6 ??C (97.8 ??F) 01/28/2024 9:16 AM ED T Respiratory Rate - - Oxygen Saturation - - Inhaled Oxygen Concentration - - Weight 60.3 kg (133 lb) 01/28/2024 9:16 AM EDT Height - - Body Mass Index 23.56 01/09/2024 1:20 PM EDT documented in this encounter Functional Status * Is the person deaf or does he/she have serious difficulty hearing? Answer Date of Assessment Author No 12/08/2023 3:24 PM EDT Luciano Kenney RMA * Is the person blind or does he/she have serious difficulty seeing even when wearing glasses? Answer Date of Assessment Author No 12/08/2023 3:24 PM EDT Luciano eKnney RMA * Does this person have serious [...] 2 times daily. 60 Tablet 1 01/28/2024 03/29/2024 documented in this encounter Progress Notes * Utter, Julisa J, MD - 01/28/2024 9:00 AM EDT Subjective Preoperative Evaluation Pre-Op physical: Yuliet, a 53 y.o. year old female presents today for a pre-operative consultation at the request of Dr. quevedo for medical clearance and stability of chronic conditions in anticipation of left hip replacement surgery. Subjective Date of surgery: 01/29 Procedure: left hip replacement Surgeon name/location: [facility] H&P to be faxed to: Recent illnesses: none. Prior surgeries requiring anesthesia? yes Prior complications from surgery or anesthesia? no Family history of issues with anesthesia? no Uncontrolled blood pressure? no Recent chest pain or shortness of breath with exertion? no Are you able to complete moderately vigorous activities such as climbing steps or mowing the lawn without chest pain or shortness of breath? yes Have you had recent cardiac procedures such as stent placement or bypass surgery? no Any history of blood clots? yes Are you on an aspirin, anti-inflammatory, or blood thinner on a daily or regular basis? yes Occupational History: Current occupation: Travel History: Recent travel that may impact pre-operative or infectious disease risk? No Allergies Allergen Reactions Orencia [Abatacept (With Maltose)] Swelling and Other (See Comments) Facial tingling/ numbness Abatacept Other (See Comments) Cefdinir Other (See Comments) Bad abdominal cramping Celecoxib Other (See Comments) Enbrel [Etanercept] Itching Humira [Adalimumab] Itching Infliximab Other (See Comments) Pustule pimples itching Mobic [Meloxicam] Hives Tocilizumab Other (See Comments) Xeljanz [Tofacitinib] Itching Past Medical History: Diagnosis Date Antiphospholipid syndrome (HCC) Arthritis DVT (deep venous thrombosis) (HCC) 06/08/2022 Right Past Surgical History: Procedure Laterality Date HYSTEROSCOPY IR 2 LEVEL TRANSFORAMINAL EPIDURAL INJ CERVICAL SPINE 06/2021 BARBIE AND BSO 09/29/2000 TOTAL KNEE ARTHROPLASTY Right 08/21/2023 Current Outpatient Medications on File Prior to Visit Medication Sig Dispense Refill hydrOXYzine (ATARAX) 25 mg Oral Tablet TAKE [...] Tablet by mouth daily. 30 Tablet 1 ELIQUIS 5 mg Oral Tablet TAKE 1 TABLET BY MOUTH TWICE A DAY (Patient not taking: Reported on 01/28/2024) 90 Tablet 2 golimumab (SIMPONI) 100 mg/mL SubQ Pen Injector Inject 1 pen under the skin every 30 days. 1 mL 2 No current facility-administered medications on file prior to visit. Immunization History Administered Date(s) Administered DTaP, Unspecified [...] 06/09/1985 Tdap 07/01/2022 Zoster Recombinant 02/21/2023, 04/30/2023 Social Social History Socioeconomic History Marital status: Spouse name: None Number of children: None Years of education: None Highest education level: None Tobacco Use Smoking status: Never Smokeless tobacco: Never Vaping Use Vaping status: Never Used Substance and Sexual Activity Alcohol use: Yes Comment: occasional Drug use: No Sexual activity: Yes Family History Family History Problem Relation Age of Onset Arthritis Father Arthritis Paternal Grandmother Controlled Substance Common Conditions Interval Assessment: Chronic Pain: Reason for visit: ChronicPain Follow-Up - Yuliet Trevino is here for regular follow-up for chronic pain. She reports that his pain is stable and unchanged since last evaluation. Yuliet Trevino has not followed up with another provider since last evaluation for this issue. The location(s) of the pain include: low back. She describes the quality of pain as: very deep withsevere aching. When the pain is most severe, she rates the pain as 7 / 10. When the pain is the least severe, she rates the pain as 3 / 10. Functional limitations include: inability to perform tasks required for employment. She has been compliant with elements of the controlled substance contract and with recommendations outlined during last assessment. Doing well, No SE's with medication. No evidence of abuse/diversion. Pt informed and aware of medication's potential for abuse/dependence. Functional goal/goals of treatment: Review of Systems Constitutional: Negative for fatigue and fever. HENT: Negative. Respiratory: Negative for cough and wheezing. Cardiovascular: Negative. Gastrointestinal: Negative for abdominal pain, constipation and diarrhea. Genitourinary: Negative. Musculoskeletal: Positive for arthralgias, gait problem and joint swelling. Skin: Negative. Hematological: Negative. Psychiatric/Behavioral: Negative. Objective Objective BP 120/80 Temp 97.8 ??F (36.6 ??C) Wt 133 lb (60.3 kg) BMI 23.56 kg/m?? Physical Exam Vitals and nursing note reviewed. HENT: Head: Normocephalic. Right Ear: Tympanic membrane normal. Left Ear: Tympanic membrane normal. Cardiovascular: Rate and Rhythm: Normal rate. Heart sounds: No murmur heard. Pulmonary: Effort: Pulmonary effort is normal. Breath sounds: No wheezing. Abdominal: Palpations: Abdomen is soft. Tenderness: There is no abdominal tenderness. Musculoskeletal: General: Swelling, tenderness and deformity present. Neurological: General: No focal deficit present. Mental Status: She is alert. Psychiatric: Mood and Affect: Mood normal. Lab Results Component Value Date WBC 14.1 (H) 01/28/2024 HGB 13.3 01/28/2024 HCT 43.1 01/28/2024 PLT 365 01/28/2024 CHOLESTEROL 165 03/24/2023 TRIG 160 (H) 03/24/2023 HDL 41 03/24/2023 LDLCALC 96 03/24/2023 ALT 12 12/15/2023 AST 19 12/15/2023 NA 140 01/28/2024 K 4.0 01/28/2024 CL 103 01/28/2024 CREATININE 0.70 01/28/2024 BUN 7 01/28/2024 CO2 22 01/28/2024 TSH 1.350 09/20/2015 INR 0.96 01/28/2024 GLUCOSE 83 11/23/2019 GLU 87 01/28/2024 HGBA1C 5.6 06/06/2022 TSHREFLEX 1.130 05/14/2023 JPJD34NN 29.7 (L) 07/01/2017 No results found for this visit on 01/28/24. Revised Davies Cardiac Risk Index 1. High risk surgical procedures (intraperitoneal, intrathoracic, suprainguinal vascular) No 2. History of ischemic heart disease (history of myocardial infarction, history of positive exercise test, current complaint of chest pain considered to be due to ischemia, use of nitrate therapy, EKG with pathological Q waves) No 3. History of congestive heart failure (history of congestive heart failure, pulmonary edema, paroxysmal nocturnal dyspnea, bilateral rales or S3 gallop) No 4: History of cerebrovascular disease (history of transient ischemic attack or stroke) No 5. Preoperative treatment with insulin No 6. Preoperative serum creatinine >2.0 mg/dl No Each risk Factor is assigned one point. Total Points 0 Points Class Risk of Major cardiac event 0 I 0.4% 1 II 0.9% 2 III 6.6% 3 or more IV 11% Major cardiac event includes myocardial infarction, pulmonary edema, ventricular fibrillation, primary cardiac arrest and complete heart block. Assessment Assessment and Recommendations Yuliet Trevino was seen today for pre-op exam. Diagnoses and all orders for this visit: Pre-op examination Antiphospholipid syndrome (HCC) stable Immunocompromised patient (HCC) stable Arthritis of left hip Rheumatoid arthritis involving multiple sites with positive rheumatoid factor (HCC) - gabapentin (NEURONTIN) 600 mg Oral Tablet; Take 1 Tablet by mouth 2 times daily. stable Vitamin B 12 deficiency Irritable bowel syndrome with constipation and diarrhea Acute bilateral low back pain without sciatica - gabapentin (NEURONTIN) 600 mg Oral Tablet; Take 1 Tablet by mouth 2 times daily. Ms. Newsome is at average risk for the proposed surgery. Recommendation: There are no contraindications to surgery . She is cleared for surgery. Is holding eliquis prior and will restart after surgery, Julisa Kerr MD documented in this encounter Plan of Treatment Upcoming Encounters Date Type Department Care Team (Late st Contact Info) Description 08/31/2024 8:30 AM EST Appointment [place] [address] [place] [address] 10/25/2024 10:45 AM EST Office Visit [facility] [address] [place] [address] Jessica Cortes MD [address] [place] [address] 01/25/2025 9:00 AM EDT Appointment [place] [address] [place] [address] 05/09/2025 11:00 AM EDT Appointment [place] [address] [place] [address] 05/09/2025 11:15 AM EDT [address]ointment [address] [place] [address] Susana Garay MD [address] [place] [address] [place] [address] documented as of this encounter Goals Goal Patient Goal Type Associated Problems Recent Progress Patient-Stated? 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, RN documented as of this encounter Procedures Procedure Name Priority Date/Time Associated Diagnosis Comments SCANNED LABS 02/05/2024 9:31 AM EDT documented in this encounter Results * SCANNED LABS (02/05/2024 9:31 AM EDT) 02/05/2024 9:31 AM EDT us Unknown Provider HEMATOLOGY ORDERABLES Final Res ult documented in this encounter Visit Diagnoses Diagnosis Pre-op examination- Primary Preoperative examination, unspecified Antiphospholipid syndrome (HCC) Primary hypercoagulable state Immunocompromised patient (HCC) Unspecified immunity deficiency Arthritis of left hip Rheumatoid arthritis involving multiple sites with positive rheumatoid factor (HCC) Vitamin B 12 deficiency Other B-complex deficiencies Irritable bowel syndrome with constipation and diarrhea Irritable bowel syndrome Acute bilateral low back pain without sciatica documented in this encounter Discontinued Medications Medication Sig Discontinue Reason Start Date End Da te predniSONE (DELTASONE) 10 mg Oral Tablet Take 3 tablets by mouth daily for 5 days, then 2 tablets by mouth daily for 5 days, then 1 tablet by mouth daily for 5 days, then STOP. DELETE-Therapy completed 01/15/2024 01/28/2024 gabapentin (NEURONTIN) 600 mg Oral TabletIndications:Rheu matoid arthritis involving multiple sites with positive rheumatoid factor (HCC),Acute bilateral low back pain without sciatica Take 1 Tablet by mouth nightly. 01/09/2024 01/28/2024 documented as of this encounter Care Teams Lead Miner Relationship Specialty Start Date End Date Julisa Kerr MD [address] [place] [id number] PCP - General 02/22/11 Jessica Cortes MD [address] [facility] [address] [place] [address] Internal Medicine-Rheumatology 04/26/16 Susana Garay MD [address] [place] [address] [place] [address] Medical Oncologist Internal Medicine-Hematology and Oncology 10/14/22 documented as of this encounter
--- OUTSIDE RECORDS SUMMARY | 2024-08-22 21:37 | XMS_ITS | Encounter Summary ---
Author Organization [place] [address] Care Team Providers Care Ward Maid Name Role Phone Julisa Kerr MD Primary Care Provider [phone] Jessica Cortes MD Unavailable [phone] Susana Garay MD Unavailable [phone] Reason for Referral * MRI/CAT Scan (Routine) - Closed Specialty Diagnoses / Procedures Referred By Contac t Referred To Contact Radiology Diagnoses Benign head tremor Weakness of both upper extremities Procedures MRI BRAIN W WO CONTRAST Jhon Peña APRN [address] [place] [address] Phone: tel: fax: [facility] MRI [address] [place] [address] Phone: tel: Referral ID Status Reason Start Date Expiration Date Visits Re quested Visits Authorized [id number] Closed 01/07/2024 01/06/2025 1 1 Reason for Visit * MRI/CAT Scan (Routine) - Closed Specialty Diagnoses / Procedures Referred By Contac t Referred To Contact Radiology Diagnoses Benign head tremor Weakness of both upper extremities Procedures MRI BRAIN W WO CONTRAST Jhon Peña APRN [address] [place] [address] Phone: tel: fax: [facility] [address] [place] [address] Phone: tel: Referral ID Status Reason Start Date Expiration Date Visits Re quested Visits Authorized [id number] Closed 01/07/2024 01/06/2025 1 1 Encounter Details Date Type Department Care Team (Late st Contact Info) Description 02/02/2024 8:43 AM EDT - 02/02/2024 11:59 PM EDT Hospital Encounter [facility] [address] [place] [address] Jhon Peña, FUR TANNER [address] [place] [address] Benign head tremor; Weakness of both upper extremities Discharge Disposition: Home or Self Care Social [...] this encounter Medications at Time of Discharge gabapentin (NEURONTIN) 600 mg Oral TabletIndication s:Rheumatoid arthritis involving multiple sites with positive rheumatoid factor (HCC),Acute bilateral low back pain without sciatica Take 1 Tablet by mouth 2 times daily. 60 Tablet 1 01/28/2024 4 hydrOXYzine (ATARAX) 25 mg Oral TabletIndication s:Itching TAKE 1 TABLET BY MOUTH THREE TIMES A DAY NEEDED 90 Tablet 2 12/08/2023 4 leflunomide (ARAVA) 20 mg Oral TabletIndication s:Rheumatoid arthritis involving multiple sites with positive rheumatoid factor (HCC) Take 1 Tablet by mouth daily. 30 Tablet 1 01/09/2024 4 methotrexate sodium 25 mg/mL Inj SolutionIndicati ons:R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 4 mL 1 12/23/2023 4 predniSONE (DELTASONE) 5 mg Oral TabletIndication [...] Description 08/31/2024 8:30 AM EST Appointment [facility] [address] [place] [address] 10/25/2024 10:45 AM EST Office Visit [facility] [address] [facility] [address] [place] [address] Jessica Cortes MD [address] [facility] [address] [place] [address] 01/25/2025 9:00 AM EDT Appointment [place] [address] [place] [address] 05/09/2025 11:00 AM EDT [address]ointment [address] [place] [address] 05/09/2025 11:15 AM EDT [address]ointment [address] [place] [address] Susana Garay MD [address] [place] [address] [place] [address] documented as of this encounter Goals Goal Patient Goal Type Associated Problems Recent Progress Patient-Stated? 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 RN documented as of this encounter Procedures Procedure Name Priority Date/Time Associated Diagnosis Comments MRI BRAIN W WO CONTRAST Routine 02/02/2024 10:53 AM EDT Benign head tremor Weakness of both upper extremities documented in this encounter Results * MRI BRAIN W WO CONTRAST (02/02/2024 10:53 AM EDT) Anatomical Region Laterality Modality Head Magnetic Resonan ce 02/02/2024 10:5 3 AM EDT Impressions 02/02/2024 11:12 AM EDT Normal MRI of the brain without and with contrast. Narrative 02/02/2024 11:12 AM EDT MRI BRAIN W WO CONTRAST ??02/02/2024 10:53 AM ?? CLINICAL HISTORY: ??G25.0-Essential vihord-FEK-90-CM R29.898-Other symptoms and signs involving the musculoskeletal vvknti-YPI-50-CM. COMPARISON: ??Brain MRI from 05/30/2023. PROCEDURE COMMENTS: Multiplanar multiecho MR imaging of the brain per protocol before and following IV contrast administration. Gadolinium contrast given as recorded in Epic. FINDINGS: ?? Midline structures normally formed. No Chiari malformation. Ventricles normal. No abnormal brain parenchymal signal. No evidence of acute stroke, mass, or hemorrhage. Diffusion imaging normal. No abnormal enhancement. ??Major vascular flow voids preserved, suggesting patency. Interval minimal lobular mucosal thickening or tiny mucous retention cyst in the right sphenoid sinus is incidentally noted. Paranasal sinuses otherwise appear clear as do the mastoid cavities. Orbits are unremarkable. Procedure Note Jose Martin Darnell MD - 02/02/2024 MRI BRAIN W WO CONTRAST 02/02/2024 10:53 AM CLINICAL HISTORY: G25.0-Essential zquetk-XLV-45-CM R29.898-Other symptoms and signs involving the sznsmtwmqvfbbgkjjgitg-QLU-78-CM. COMPARISON: Brain MRI from 05/30/2023. PROCEDURE COMMENTS: Multiplanar multiecho MR imaging of the brain perprotocol before and following IV contrast administration. Gadolinium contrast givenas recorded in Epic. FINDINGS: Midline structures normally formed. No Chiari malformation. Ventriclesnormal. No abnormal brain parenchymal signal. No evidence of acute stroke, mass,or hemorrhage. Diffusion imaging normal. No abnormal enhancement. Majorvascular flow voids preserved, suggesting patency. Interval minimal lobular mucosal thickening or tiny mucous retention cystin the right sphenoid sinus is incidentally noted. Paranasal sinuses otherwiseappear clear as do the mastoid cavities. Orbits are unremarkable. IMPRESSION: Normal MRI of the brain without and with contrast. Jhon Peña APRN IMG MRI ORDERABLES Final Res ult documented in this encounter Visit Diagnoses Diagnosis Benign head tremor Essential and other specified forms of tremor Weakness of both upper extremities documented in this encounter Care Teams Ward Maid Relationship Specialty Start Date End Date Julisa Kerr MD [address] [place] [address] PCP - General 02/22/11 Jessica Cortes MD [address] [place] [address] Internal Medicine-Rheumatology 04/26/16 Susana Garay MD [address] [facility] [place] [address] Medical Oncologist Internal Medicine-Hematology and Oncology 10/14/22 documented as of this encounter
--- OUTSIDE RECORDS SUMMARY | 2024-08-22 21:37 | XMS_ITS | Encounter Summary ---
Author Organization [place] [address] Care Team Providers Care Gas Meter Repairer Name Role Phone Julisa Kerr MD Primary Care Provider [phone] Jessica Cortes MD Unavailable [phone] Susana Garay MD Unavailable [phone] Reason for Visit * Reason Onset Date Comments Results 01/27/2024 labs Encounter Details Date Type Department Care Team (Late st Contact Info) Description 01/27/2024 Telephone [facility] Neurology [facility] [address] [place] [address] StewartArie reyes MD [address] [place] [address] Results (labs ) Social History Tobacco Use Types Packs/Day Years [...] Telephone Encounter - Rhina Bond MA - 01/27/2024 3:25 PM EDT Informed patient of results via [employer] since they are active * Telephone Encounter - Rhina oBnd MA - 01/27/2024 3:23 PM EDT ----- Message from Arie Stewart MD sent at 01/26/2024 7:53 AM EDT ----- Please let the patient know that these lab results were normal. documented in this encounter Plan of Treatment Upcoming Encounters Date Type Department Care Team (Late st Contact Info) Description 08/31/2024 8:30 AM EST Appointment [address] [place] [address] 10/25/2024 10:45 AM EST Office Visit [facility] [address] [facility] [address] [place] [address] Jessica Cortes MD [address] [facility] [address] [place] [address] 01/25/2025 9:00 AM EDT [address]ment [address] [place] [address] 05/09/2025 11:00 AM EDT Appointment [address] [place] [address] 05/09/2025 11:15 AM EDT Appointment [address] [place] [address] Susana Garay MD [address] [place] [address] [place] [address] documented as of this encounter Goals Goal Patient Goal Type Associated Problems Recent Progress Patient-Stated? Author Maintain a healthy diet, exercise regularly and maintain an ideal body weight General Porsche Ashley, RN documented as of this encounter Visit Diagnoses Not on filedocumented in this encounter Care Teams Gas Meter Repairer Relationship Specialty Start Date End Date Julisa Kerr MD [address] [place] [address] PCP - General 02/22/11 Jessica Cortes MD [address] [facility] [address] [place] [address] Internal Medicine-Rheumatology 04/26/16 Susana Garay MD [address] [facility] [place] [address] Medical Oncologist Internal Medicine-Hematology and Oncology 10/14/22 documented as of this encounter
--- OUTSIDE RECORDS SUMMARY | 2024-08-22 21:37 | XMS_ITS | Encounter Summary ---
Author [place] [address] Care Team Providers Care Assessment Clinician Name Role Phone Julisa Kerr MD Primary Care Provider [phone] Jessica Cortes MD Unavailable [phone] Susana Garay MD Unavailable [phone] Reason for Referral * EMG (Routine) - Pending Review Specialty Diagnoses / Procedures Referred By Contact Referred To Contact Psychiatry & Neurology-Neurology / Electromyography Diagnoses Generalized weakness Procedures EMG Arie Stewart MD [address] [place] [address] Phone: tel: fax: Arie Stewart MD [address] [place] [address] Phone: tel: fax: Referral ID Status Reason Start Date Expiration Date V isits Requested Visits Authorized [id number] Pending Review 01/09/2024 01/08/2025 1 1 * MRI/CAT Scan (Routine) - Closed Specialty Diagnoses / Procedures Referred By Contac t Referred To Contact Radiology Diagnoses Hyperreflexia Procedures MRI CERVICAL SPINE W WO CONTRAST Arie Stewart MD [address] [place] [id number] Phone: tel: fax: [facility] [address] [facility] [place] [address] Phone: tel: Referral ID Status Reason Start Date Expiration Date Visits Re quested Visits Authorized [id number] Closed 01/09/2024 01/08/2025 1 1 Reason for Visit * Reason Comments Other paresthesia in arms and hands, shaking and vibration on head Extremity Weakness arms and shoulders * Consultation (Routine) - Closed Specialty Diagnoses / Procedures Referred By Anatoliy cole Referred To Contact Neurology Diagnoses Paresthesias Julisa Kerr MD [address] [place] [address] Phone: tel: fax: [facility] [place] [address] [place] [address] Phone: tel: fax: Referral ID Status Reason Start Date Expiration Date Visits Re quested Visits Authorized [id number] Closed 06/18/2023 06/17/2024 99 99 Encounter Details Date Type Department Care Team (Late st Contact Info) Description 01/09/2024 1:30 PM EDT Office Visit [facility] [address] [place] [address] Arie Stewart MD [address] [place] [address] [place] [id number] Generalized weakness (Primary Dx); Hyperreflexia; Benign head tremor Social History Tobacco Use Types Packs/Day Years Used Date Smoking Tobacco: Never Smokeless Tobacco: Never Tobacco Cessation:Counseling Given: [...] Sign Reading Time Taken Comments Blood Pressure 122/70 01/09/2024 1:20 PM EDT Pulse 101 01/09/2024 1:20 PM EDT Temperature 36.1 ??C (97 ??F) 01/09/2024 1:20 PM EDT Respiratory Rate - - Oxygen Saturation 96% 01/09/2024 1:20 PM EDT Inhaled Oxygen Concentration - - Weight 61.2 kg (135 lb) 01/09/2024 1:20 PM EDT Height 160 cm (5' 3 ) 01/09/2024 1:20 PM EDT Body Mass Index 23.91 01/09/2024 1:20 PM EDT documented in this [...] Progress Notes * Arie Stewart MD - 01/09/2024 1:30 PM EDT CC: weakness, tremors HPI: Yuliet Trevino is a 53yo WF who presents to clinic by self. Has noticed a constellation of symptoms in the past 2-3 weeks. Has been having head Tremors. She is able to suppress these if desired. Worse during periods of stress. They are worse when she is doing a lot. Out of the blue. No inciting event. In addition, her walking has slowed and she feels that she is weak in her arms--specifically around her shoulders--she is having more pain in her shoulders. Did go to Urgent Care and then ED--was advised to have Neuro w/u to make sure no 1ary neurological etiology. Does have known RA that is known to flare several times/year. Allergies: allergy list reviewed and accurate PMHx: 1. RA--since age 30 2. H/o DVT 3. 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 30 Tablet 0 golimumab (SIMPONI) 100 mg/mL SubQ Pen Injector [...] 1 Tablet by mouth daily. 30 Tablet 0 No current facility-administered medications for this visit. Med list reviewed and accurate Review of Systems Neurological Weakness, tremors as above Physical Exam Vitals: 01/09/24 1320 BP: 122/70 Pulse: 101 Temp: 97 ??F (36.1 ??C) SpO2: 96% Gen: WDWN in no apparent distress NE/NF both 5/5 Head in yes-yes tremors--able to be suppressed. Neuro: AAOx4, Speech fluent and appropriate without dysarthria, responds to examiner normally; language nml CN II: VFFTC CN III, IV, : EOMI bilaterally, pupils 4/4 reactive to 2/2 CN V: intact to LT in all distributions of V1V2V3 CN VII: face and smile symmetric CN VIII: intact to FR bilaterally CN IX,X: palate symmetric and raises symmetric CN XI: shoulder shrug 5/5 bilaterally CN XII: TPM Motor: 5/5 strength throughout equal and symmetric, tone and bulk both normal (Muscles tested include Delt, Tri, Bi, WE, WF, FDI, ADM, HF, HE, KF, KE, DF, PF)--except for bilateral Delts that appear to be 4/5 bilaterally DTRs: 2+ in the arms and knees, 1 ankles and both toes downgoing Sens: intact to LT, PP, Vib, Prop sensation to the toes Galdino and FFM slowed but not asymmetric, no orbiting Gait slowed with short steps--step out on tandem Rhomberg/FNF nml Labs: CMP, TSH, CBC nml A1c 5.6 Hep B/C negative ssA/B negative Syphilis negative B12 261 MRI brain May 2023--independently visualized--no acute changes MRI CSpine 2018--ind viz--mild DDD, no cord changes Assessment and Plan: 1. Generalized weakness Will get w/u below to r/o other causes other than due to her underlying RA. Her exam does appear chavez strong except for her Delts on both sides but that could be due to bilateral shoulder pain that she is having. Will call with the results to the mobile # and may leave a message if needed. - CREATINE KINASE; Future - METHYLMALONIC ACID (MMA) QUANTITATIVE -REF LAB; Future - ACETYLCHOLINE BINDING AB -REF LAB; Future - ACETYLCHOLINE RECEPTOR MODULATING ANTIBODY - REF LAB; Future - ACETYLCHOLINE RECEPTOR BLOCKING ANTIBODY - REF LAB; Future - EMG; Future 2. Hyperreflexia Noted on her exam. MRI brain has been ordered. Will add MRI CSpine with/without kylee to make sure nospinal cord pathology that is causing her symptoms and increased reflexes that are noted in her arms. - MRI CERVICAL SPINE W WO CONTRAST; Future 3. Benign head tremor W/u as above. If all unrevealing then would be idiopathic cervical dystonia. Very mild and not treated with EMG guided Botox at this time. Patient given the clinic number and is to call with any additional questions/concerns. F/u 3 months, sooner if needed. documented in this encounter Plan of Treatment Upcoming Encounters Date Type Department Care Team (Late st Contact Info) Description 08/31/2024 8:30 AM EST Appointment [address] [place] [address] 10/25/2024 10:45 AM EST Office Visit [facility] [address] [place] [address] Jessica Cortes MD [address] [place] [address] 01/25/2025 9:00 AM EDT [address]ointment [address] [place] [address] 05/09/2025 11:00 AM EDT [address]ointment [address] [place] [address] 05/09/2025 11:15 AM EDT [address]ointment [address] [place] [address] Susana Garay MD [address] [place] [address] [place] [id number] documented as of this encounter Goals Goal Patient Goal Type Associated Problems Recent Progress Patient-Stated? Author Maintain a healthy diet, exercise regularly and maintain an ideal body weight General Porsche Ashley, RN documented as of this encounter Results * MRI CERVICAL SPINE W WO CONTRAST (02/02/2024 10:06 AM EDT) Anatomical Region Laterality Modality Spine, C-spine Magnetic Resonan ce 02/02/2024 10:0 6 AM EDT Impressions 02/02/2024 12:32 PM EDT 1. ??No evidence of cord signal alteration or abnormal enhancement. 2. ??Multilevel degenerative changes with mild central canal narrowing at C5-C6/C6-C7 and bilateral neural foraminal narrowing as described. 3. ??Level by level analysis and other findings as discussed. - Note: Radiology results need to be interpreted within a comprehensive clinical context. ??If you have questions about the radiology report, please contact the office of the ordering clinician. Narrative 02/02/2024 12:32 PM EDT MRI CERVICAL SPINE W WO CONTRAST 02/02/2024 10:06 AM ?? CLINICAL HISTORY: ??R29.2-Abnormal [id number]-CM. COMPARISON: ??MRI 12/31/2018. PROCEDURE COMMENTS: Multiplanar, multisequence MR imaging of the cervical spine. Gadolinium contrast administered intravenously as recorded in Epic. FINDINGS: BONES & MARROW: Craniocervical junction relationships are maintained. No cervical spine fracture or facet joint congruency. Straightened cervical lordosis alignment unchanged from prior. No marrow filtration or paravertebral inflammatory process. CORD: The visualized posterior fossa and spinal cord abnormal signal/enhancement. Stark findings by level are as follows: C2-C3: Severe right and mild left facet arthritis. Mild right foraminal narrowing. Central canal and left foramen are patent. C3-C4: Disc osteophyte complex formation eccentric in the right foramen. Moderate to severe right and moderate left facet arthritis. Moderate right and mild left neural foraminal narrowing. Minimal ventral CSF effacement. No cord compression. C4-C5: Mild disc osteophyte complex formation. Severe right and milder left facet arthritis. Mild right foraminal narrowing. Central canal and left foramen patent. C5-C6: Disc space narrowing with broad disc osteophyte complex formation eccentric to the right. Severe right and mild left facet arthritis. Moderate right and mild left neural foraminal narrowing. Mild central canal narrowing. C6-C7: Disc space narrowing with disc osteophyte complex formation/uncovertebral joint spurring bilaterally. Mild bilateral neural foraminal narrowing. Mild central canal narrowing. C7-T1: Bilateral facet joint arthritis. Mild left foraminal narrowing. Central canal and right foramen are patent. Procedure Note Alexander Larios MD - 02/02/2024 MRI CERVICAL SPINE W WO CONTRAST 02/02/2024 10:06 AM CLINICAL HISTORY: R29.2-Abnormal [id number]-CM. COMPARISON: MRI 12/31/2018. PROCEDURE COMMENTS: Multiplanar, multisequence MR imaging of the cervicalspine. Gadolinium contrast administered intravenously as recorded in Epic. FINDINGS: BONES & MARROW: Craniocervical junction relationships are maintained. No cervical spine fracture or facet joint congruency. Straightened cervical lordosis alignment unchanged from prior. No marrow filtration orparavertebral inflammatory process. CORD: The visualized posterior fossa and spinal cord abnormal signal/enhancement. Stark findings by level are as follows: C2-C3: Severe right and mild left facet arthritis. Mild right foraminal narrowing. Central canal and left foramen are patent. C3-C4: Disc osteophyte complex formation eccentric in the right foramen. Moderate to severe right and moderate left facet arthritis. Moderate rightand mild left neural foraminal narrowing. Minimal ventral CSF effacement. Nocord compression. C4-C5: Mild disc osteophyte complex formation. Severe right and milderleft facet arthritis. Mild right foraminal narrowing. Central canal and leftforamen patent. C5-C6: Disc space narrowing with broad disc osteophyte complex formation eccentric to the right. Severe right and mild left facet arthritis.Moderate right and mild left neural foraminal narrowing. Mild central canalnarrowing. C6-C7: Disc space narrowing with disc osteophyte complexformation/uncovertebral joint spurring bilaterally. Mild bilateral neural foraminal narrowing.Mild central canal narrowing. C7-T1: Bilateral facet joint arthritis. Mild left foraminal narrowing.Central canal and right foramen are patent. IMPRESSION: 1. No evidence of cord signal alteration or abnormal enhancement. 2. Multilevel degenerative changes with mild central canal narrowing at C5-C6/C6-C7 and bilateral neural foraminal narrowing as described. 3. Level by level analysis and other findings as discussed. - Note: Radiology results need to be interpreted within a comprehensiveclinical context. If you have questions about the radiology report, please contactthe office of the ordering clinician. us Arie Stewart MD IMG MRI ORDERABLES Final Re sult * EMG (01/30/2024) Impressions SEP OFFICE - 01/30/2024 Conclusions: ??This EMG study of the left arm and leg was normal. Arie Stewart MD Narrative SEP OFFICE - 01/30/2024 Interpretation: ??The nerve conduction studies of the left arm and leg were normal. ??The needle exam of the left arm and leg was normal. ? Prior to the procedure, the patient's name and date of were confirmed and reconciled with the goal for the study. ??A pre-procedure pause was performed to confirm the side and specific location of the procedure. ??A new, disposable concentric needle was used for this exam and then discarded. us Arie Stewart MD NEUROLOGY ORDERABLES Final Result SEP OFFICE * ACETYLCHOLINE RECEPTOR BLOCKING ANTIBODY - REF LAB (01/23/2024 1:57 PM EDT) Acetylcholine Receptor Blocking Ab 6 0 - 26 % 01/25/2024 2:33 PM EDT [employer] Comment: INTERPRETIVE INFORMATION: Acetylcholine Blocking Ab ??Negative ............ ??0-26 percent blocking ??Indeterminate ....... 27-41 percent blocking ??Positive ............ 42 percent or greater blocking Approximately 85-90 percent of patients with myasthenia gravis (MG) express antibodies to the acetylcholine receptor (AChR), which can be divided into binding, blocking, and modulating antibodies. Binding antibody can activate complement and lead to loss of AChR. Blocking antibody may impair binding of acetylcholine to the receptor, leading to poor muscle contraction. Modulating antibody causes receptor endocytosis resulting in loss of AChR expression, which correlates most closely with clinical severity of disease. Approximately 10-15 percent of individuals with confirmed myasthenia gravis have no measurable binding, blocking, or modulating antibodies. This test was developed and its performance characteristics determined by [facility]. It has not been cleared or approved by the [place] Food and Drug Administration. This test was performed in a CLIA certified laboratory and is intended for clinical purposes. Performed By: [facility] [address] [place] [id number] Heavy Forger: Thierno Cintron MD, PhD CLIA Number: [id number] Blood VENOUS BLOOD / Unknown Venipuncture / Unknown 01/23/2024 1:57 PM EDT 01/23/2024 1:59 PM EDT us Arie Stewart MD CHEMISTRY ORDERABLES Final Result Performing Organization Address [facility]/ZIP Co de Phone Number [facility] [address] [place] [address] * ACETYLCHOLINE RECEPTOR MODULATING ANTIBODY - REF LAB (01/23/2024 1:57 PM EDT) Acetylcholine Receptor Modulating Ab 0 <=45 % 01/26/2024 12:22 PM EDT [employer] Comment: INTERPRETIVE INFORMATION: Acetylcholine Modulating Ab ??Negative .......... ??0-45 percent modulating ??Positive .......... ??46 percent or greater modulating Approximately 85-90 percent of patients with myasthenia gravis (MG) express antibodies to the acetylcholine receptor (AChR), which can be divided into binding, blocking, and modulating antibodies. Binding antibody can activate complement and lead to loss of AChR. Blocking antibody may impair binding of acetylcholine to the receptor, leading to poor muscle contraction. Modulating antibody causes receptor endocytosis resulting in loss of AChR expression, which correlates most closely with clinical severity of disease. Approximately 10-15 percent of individuals with confirmed myasthenia gravis have no measurable binding, blocking, or modulating antibodies. This test was developed and its performance characteristics determined by [facility]. It has not been cleared or approved by the [place] Food and Drug Administration. This test was performed in a CLIA certified laboratory and is intended for clinical purposes. Performed By: [facility] [address] [place] [address] Heavy Forger: Thierno Cintron MD, PhD CLIA Number: [id number] Blood VENOUS BLOOD / Unknown Venipuncture / Unknown 01/23/2024 1:57 PM EDT 01/23/2024 1:59 PM EDT Arie Stewart MD CHEMISTRY ORDERABLES Final Result Performing Organization Address City/[facility]/ZIP Co de Phone Number [employer] [facility] [address] [place], [place] [id number] * ACETYLCHOLINE BINDING AB -REF LAB (01/23/2024 1:57 PM EDT) [facility] ACHR Bind Ab 0.0 0.0 - 0.4 nmol/L 01/26/2024 7:02 AM EDT [employer] Comment: INTERPRETIVE INFORMATION: Acetylcholine Binding Ab ??Negative ....... 0.0 - 0.4 nmol/L ??Positive ....... 0.5 nmol/L or greater Approximately 85-90 percent of patients with myasthenia gravis (MG) express antibodies to the acetylcholine receptor (AChR), which can be divided into binding, blocking, and modulating antibodies. Binding antibody can activate complement and lead to loss of AChR. Blocking antibody may impair binding of acetylcholine to the receptor, leading to poor muscle contraction. Modulating antibody causes receptor endocytosis resulting in loss of AChR expression, which correlates most closely with clinical severity of disease. Approximately 10-15 percent of individuals with confirmed myasthenia gravis have no measurable binding, blocking, or modulating antibodies. This test was developed and its performance characteristics determined by [facility]. It has not been cleared or approved by the [place] Food and Drug Administration. This test was performed in a CLIA certified laboratory and is intended for clinical purposes. Performed By: [facility] [address] [place] [id number] Heavy Forger: Thierno Cintron MD, PhD CLIA Number: [id number] Blood VENOUS BLOOD / Unknown Venipuncture / Unknown 01/23/2024 1:57 PM EDT 01/23/2024 1:59 PM EDT us Arie Stewart MD CHEMISTRY ORDERABLES Final Result Performing Organization Address [facility]/ZIP Co de Phone Number [employer] [facility] [address] [place], [place] [id number] * METHYLMALONIC ACID (MMA) QUANTITATIVE -REF LAB (01/23/2024 1:57 PM EDT) [facility] MMA 0.15 0.00 - 0.40 umol/L 01/26/2024 12:08 AM EDT [employer] Comment: INTERPRETIVE INFORMATION: MMA Serum/Plasma, ?Vitamin B12 Status This test was developed and its performance characteristics determined by [facility]. It has not been cleared or approved by the US Food and Drug Administration. This test was performed in a CLIA certified laboratory and is intended for clinical purposes. Performed By: [facility] [address] [place] [address] Heavy Forger: Thierno Cintron MD, PhD CLIA Number: [id number] Blood VENOUS BLOOD / Unknown Venipuncture / Unknown 01/23/2024 1:57 PM EDT 01/23/2024 1:59 PM EDT Arie Stewart MD CHEMISTRY ORDERABLES Final Result Performing Organization Address [facility] de Phone Number [facility] [address] [place] [address] * (ABNORMAL) CREATINE KINASE (01/23/2024 1:57 PM EDT) CK 24(L) 26 - 192 U/L 01/23/2024 9:46 PM EDT [employer] Blood VENOUS BLOOD / Unknown Venipuncture / Unknown 01/23/2024 1:57 PM EDT 01/23/2024 2:05 PM EDT Arie Stewart MD CHEMISTRY ORDERABLES Final Result Performing Organization Address [facility] de Phone Number [employer] [address] [facility] , [place] [address] documented in this encounter Visit Diagnoses Diagnosis Generalized weakness- Primary Other malaise and fatigue Hyperreflexia Abnormal reflex Benign head tremor Essential and other specified forms of tremor Generalized weakness Other malaise and fatigue Hyperreflexia Abnormal reflex documented in this encounter Discontinued Medications Medication Sig Discontinue Reason Start Date End Da te diclofenac (VOLTAREN) 75 mg Oral Tablet, Delayed Release (E.C.)Indications: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 DELETE- Entered in Error 06/10/2023 01/09/2024 documented as of this encounter Care Teams Assessment Clinician Relationship Specialty Start Date End Date Julisa Kerr MD [address] [place] [address] PCP - General 02/22/11 Jessica Cortes MD [address] [place] [address] [address] [place] [address] Internal Medicine-Rheumatology 04/26/16 Susana Garay MD [address] [place] [address] Medical Oncologist Internal Medicine-Hematology and Oncology 10/14/22 documented as of this encounter
--- OUTSIDE RECORDS SUMMARY | 2024-08-22 21:37 | XMS_ITS | Encounter Summary ---
Author Organization [facility] Address [address] [place] [address] Care Team Providers Care Car Sales Associate Name Role Phone Julisa Kerr MD Primary Care Provider [phone] Jessica Cortes MD Unavailable [phone] Susana Garay MD Unavailable [phone] Reason for Visit * Reason Comments Follow-up Post-Operative Exam Encounter Details Date Type Department Care Team (Late st Contact Info) Description 02/12/2024 11:15 AM EDT Office Visit [facility] [address] [facility] [address] [place] [address] Jame Webb PA-C [address] [place] [address] S/P total left hip arthroplasty (Primary Dx) [...] Progress Notes * Jame Webb PA-C - 02/12/2024 11:15 AM EDT Images from the original note were not included. [address] [phone] [place], [place] [phone] [place], [place] Yuliet Trevino 1970 Chief Complaint Patient presents with Left Hip - Follow-up, Post-Operative Exam Subjective: She is status post left total hip arthroplasty on 01/30/2024. They tell me that at this point the pain continues to decrease. There have not been any significantfevers or chills. No wound drainage. The patient is ambulatory with an assisted device. They are still taking their DVT prophylaxis. The patient denies any shortness of breath, chest pain, fevers or chills. The patient's medical history is per the chart. Patient has been able to wean to a cane. Overall she feels the hip is doing well. She is still needing narcotics a couple times daily. Mostly managing with Tylenol. Objective: On physical examination the patient is [...] operative limb, as would be expected after surgery. There is no evidence of DVT or [...] expected. No evidence of significant lymphadenopathy. Imaging: Radiographs are reviewed today. These show well positioned left total hip arthroplasty, without evidence of hardware or implant complications. Assessment and Plan: Diagnoses and all orders for this visit: S/P total left hip arthroplasty - XR HIP LEFT AP LATERAL W AP PELVIS; Future PLAN: At this point the patient is progressing as expected following surgery. We have discussed again continuing DVT prophylaxis. We have discussed fall risk and antibiotic prophylaxis. We will see the patient back in approximately 4-6 weeks for repeat evaluation to ensure that they continue to do well. At this point, the patient will continue weight bearing as tolerated and exercise type therapies as previously prescribed. All questions were answered. In the office today,skin glue were removed in a sterile fashion. Dressings were applied, if needed.The patient will continue to monitor this area for signs/symptoms of infection and will contact theoffice immediately if this were to occur. Please note that this rf microwave engineer was created using voice recognition software. Any errors are unintentional and may be due to voice recognition rf microwave engineer. Parts of this note may have been [...] Info) Description 08/31/2024 8:30 AM EST Appointment [facility] [address] [place] [address] 10/25/2024 10:45 AM EST Office Visit [facility] [address] [place] [address] Jessica Cortes MD [address] [place] [address] 01/25/2025 9:00 AM EDT [address]ointment [address] [place] [address] 05/09/2025 11:00 AM EDT Appointment [address] [place] [address] 05/09/2025 11:15 AM EDT Appointment [address] [place] [address] Susana Garay MD [address] [place] [address] [place] [address] documented as of this encounter Goals Goal Patient Goal Type Associated Problems Recent Progress Patient-Stated? Author Maintain a healthy diet, exercise regularly and maintain an ideal body weight General Porsche Ashley, RN documented as of this encounter Results * XR HIP LEFT AP LATERAL W AP PELVIS (02/12/2024 11:43 AM EDT) Narrative Marlen Mistry - 02/12/2024 11:43 AM EDT Please see physician's note from office encounter for x-ray imaging result Jame Webb PA-C [facility] ORDERA BLES Final Result documented in this encounter Visit Diagnoses Diagnosis S/P total left hip arthroplasty- Primary S/P total left hip arthroplasty documented in this encounter Care Teams Car Sales Associate Relationship Specialty Start Date End Date Julisa Kerr MD [address] [place] [address] PCP - General 02/22/11 Jessica Cortes MD 651 [facility] 19 [place] [address] Internal Medicine-Rheumatology 04/26/16 Susana Garay MD [address] [place] [address] Medical Oncologist Internal Medicine-Hematology and Oncology 10/14/22 documented as of this encounter
--- OUTSIDE RECORDS SUMMARY | 2024-08-22 21:37 | XMS_ITS | Encounter Summary ---
Author Organization [facility] [place] [address] Care Team Providers Care E Commerce Project Manager Name Role Phone Julisa Kerr MD Primary Care Provider [phone] Jessica Cortes MD Unavailable [phone] Susana Garay MD Unavailable [phone] Reason for Visit * Reason Onset Date Comments Central Order Completion Outreach 02/03/2024 mammogram Encounter Details Date Type Department Care Team (Late st Contact Info) Description 02/03/2024 Patient Outreach [facility] [address] [place] [address] Julisa Kerr MD [address] [place] [address] Central Order Completion Outreach (mammogram ) Social History Tobacco Use Types Packs/Day [...] documented in this encounter Progress Notes * Matilda Duarte, RN - 02/03/2024 9:44 AM EDT SEP Order Completion Outcome Tracking Contact Attempt:: Final Mammogram Outcome:: Screening Scheduled (02/09/2024) During Order Completion Outreach, care gaps addressed are Annual Wellness Visit and Colorectal Cancer Screening. Patient/Parent/Guardian declined AWV. patient states she just received a cologuard kit and is agreeable to complete. documented in this encounter Plan of Treatment Upcoming Encounters Date Type Department Care Team (Late st Contact Info) Description 08/31/2024 8:30 AM EST Appointment [facility] [address] [place] [address] 10/25/2024 10:45 AM EST Office Visit [facility] [address] [facility] [address] [place] [address] Jessica Cortes MD [address] [address] 01/25/2025 9:00 AM EDT Appointment [place] [address] [place] [address] 05/09/2025 11:00 AM EDT Appointment [address] [place] [address] 05/09/2025 11:15 AM EDT Appointment [address] [place] [address] Susana Garay MD [address] [facility] [address] [place], [place] [id number] documented as of this encounter Goals Goal Patient Goal Type Associated Problems Recent Progress Patient-Stated? Author Maintain a healthy diet, exercise regularly and maintain an ideal body weight General Porsche Ashley, RN documented as of this encounter Visit Diagnoses Not on filedocumented in this encounter Care Teams E Commerce Project Manager Relationship Specialty Start Date End Date Julisa Kerr MD [address] [place] [address] PCP - General 02/22/11 Jessica Cortes MD [address] [address] Internal Medicine-Rheumatology 04/26/16 Susana Garay MD [address] [facility] [place] [address] Medical Oncologist Internal Medicine-Hematology and Oncology 10/14/22 documented as of this encounter
--- OUTSIDE RECORDS SUMMARY | 2024-08-22 21:37 | XMS_ITS | Encounter Summary ---
Author Organization [facility] Address [address] [place] [address] Care Team Providers Care Telemarketer Name Role Phone Julisa Kerr MD Primary Care Provider [phone] Jessica Cortes MD Unavailable [phone] Susana Garay MD Unavailable [phone] Reason for Visit * Reason Onset Date Comments Medication Refill 02/12/2024 Encounter Details Date Type Department Care Team (Late st Contact Info) Description 02/12/2024 Refill [facility] 100 [place], [place] [id number] Jame Webb PA-C [address] [place] [address] Medication Refill Social History Tobacco Use Types [...] Luciano Kenney JARROD documented in this encounter Ordered Prescriptions Prescription Sig Dispense Quantity Refills Last Filled Start Date End Date oxyCODONE (ROXICODONE) 5 mg Oral TabletIndications: S/P total left hip arthroplasty Take 1-2 Tablets by mouth every 12 hours as needed for Major Surgery/Traum a (G89.18). 20 Tablet 02/12/2024 documented in this encounter Plan of Treatment Upcoming Encounters Date Type Department Care Team (Late st Contact Info) Description 08/31/2024 8:30 AM EST Appointment [address] [place] [address] 10/25/2024 10:45 AM EST Office Visit [facility] [address] [facility] [address] [place] [phone] Jessica Cortes MD [address] [facility] Building [address] [place] [address] 01/25/2025 9:00 AM EDT Appointment [place] [address] [place] [address] 05/09/2025 11:00 AM EDT Appointment [address] [place] [address] 05/09/2025 11:15 AM EDT Appointment [address] [place] [address] Susana Garay MD [address] [facility] [place] [address] documented as of this encounter Goals Goal Patient Goal Type Associated Problems Recent Progress Patient-Stated? Author Maintain a healthy diet, exercise regularly and maintain an ideal body weight General Porsche Ashley, RN documented as of this encounter Visit Diagnoses Diagnosis S/P total left hip arthroplasty- Primary documented in this encounter Care Teams Telemarketer Relationship Specialty Start Date End Date Julisa Kerr MD [address] [place], [place] [phone] PCP - General 02/22/11 Jessica Cortes MD [address] [address] Internal Medicine-Rheumatology 04/26/16 Susana Garay MD [address] [facility] [place] [address] Medical Oncologist Internal Medicine-Hematology and Oncology 10/14/22 documented as of this encounter
--- OUTSIDE RECORDS SUMMARY | 2024-08-22 21:37 | XMS_ITS | Encounter Summary ---
Author Organization [place] [address] Care Team Providers Care Contact Acid Plant Operator Helper Name Role Phone Julisa Kerr MD Primary Care Provider [phone] Jessica Carter MD Unavailable [phone] Susana Garay MD Unavailable [phone] Reason for Visit * Reason Onset Date Comments Other 01/15/2024 Encounter Details Date Type Department Care Team (Late st Contact Info) Description 01/15/2024 Telephone [facility] [address] [facility] [address] [place] [address] Jessica Carter MD 651 [facility] Building [address] [place] [id number] Other Social History Tobacco Use Types Packs/Day [...] EDT KenneyLucianoJARROD * Does this person have serious difficulty [...] Author No 12/08/2023 3:24 PM EDT KenneyLuciano JARORD documented as of this encounter Mental Status * Because of a physical, mental or emotional condition, does this person have serious difficulty concentrating, remembering or making decisions? Answer Entry Date Author No 12/08/2023 3:24 PM EDT Luciano Kenney JARROD documented in this encounter Ordered Prescriptions Prescription Sig Dispense Quantity Refills Last Filled Start Date End Date predniSONE (DELTASONE) 5 mg Oral TabletIndications: Rheumatoid arthritis involving multiple sites with positive rheumatoid factor (HCC) Take 1 Tablet by mouth daily. 30 Tablet 1 01/20/2024 4 predniSONE (DELTASONE) 10 mg Oral Tablet Take 3 tablets by mouth daily for 5 days, then 2 tablets by mouth daily for 5 days, then 1 tablet by mouth daily for 5 days, then STOP. 30 Tablet 01/15/2024 4 documented in this encounter Miscellaneous Notes * Telephone Encounter - Earl An RMA - 01/20/2024 1:47 PM EDT patient returned call and was given information * Telephone Encounter - Earl An RMA - 01/20/2024 9:52 AM EDT LVM for patient to return call * Addendum Note - Jessica Carter MD - 01/20/2024 9:44 AM EDTAddended by: JESSICA CARTER on: 01/20/2024 09:44 AM Modules accepted: Orders * Telephone Encounter - Jessica Carter MD - 01/20/2024 9:44 AM EDT Please let the patient know I sent prednisone 5 mg daily for her to take. * Addendum Note - Earl An RMA - 01/15/2024 10:32 AM EDTAddended by: EARL AN on: 01/15/2024 10:32 AM Modules accepted: Orders * Telephone Encounter - Earl An RMA - 01/15/2024 10:31 AM EDT spoke with patient patient given all information and instructions voiced understanding and agreed to taper while she waits for to return * Telephone Encounter - Kris Harvey MD - 01/15/2024 10:12 AM EDT Please let patient know that Dr. Carter is on vacation and I am covering for her. If patient is having a flare, okay to send Prednisone taper (using Dr. Carter's typical taper). If patient is asking more about being placed back on Prednisone jail, I will let her and Dr. Carter discussthat when she is back from vacation. * Telephone Encounter - Earl An RMA - 01/15/2024 9:29 AM EDT please advise * Telephone Encounter - Margret Terrazas, Clerical Staff - 01/15/2024 9:08 AM EDT Pt called and stated she was in a few days ago and had discussed not taking prednisone any longer. However her swelling has gotten so bad she feels she needs to be back on it. She would like to see if you call some in for her. Please advise [facility]/pharmacy [place][id number] [place] [address] [address] [facility] [phone] documented in this encounter Plan of Treatment Upcoming Encounters Date Type Department Care Team (Late st Contact Info) Description 08/31/2024 8:30 AM EST Appointment [address] [place] [address] 10/25/2024 10:45 AM EST Office Visit [facility] [address] [place] [address] Jessica Carter MD [address] [place] [address] Building [address] [place] [address] 01/25/2025 9:00 AM EDT Appointment [address] [place] [address] 05/09/2025 11:00 AM EDT Appointment [address] [place] [address] 05/09/2025 11:15 AM EDT Appointment [facility] [address] [place], [place] [phone] Susana Garay MD [address] [facility] [place] [address] documented as of this encounter Goals [...] Take 1 Tablet by mouth daily. Reorder 12/08/2023 01/20/2024 documented as of this encounter Care Teams Contact Acid Plant Operator Helper Relationship Specialty Start Date End Date Julisa Kerr MD [address] [place] [address] PCP - General 02/22/11 Jessica Carter MD [address] [place] [address] Internal Medicine-Rheumatology 04/26/16 Susana Garay MD [address] [place] [address] [address] [place] [id number] Medical Oncologist Internal Medicine-Hematology and Oncology 10/14/22 documented as of this encounter
--- OUTSIDE RECORDS SUMMARY | 2024-08-22 21:37 | XMS_ITS | Encounter Summary ---
Author Organization [place] [address] Care Team Providers Care Ore Bridge Operator Name Role Phone Julisa Kerr MD Primary Care Provider [phone] Jessica Cortes MD Unavailable [phone] Susana Garay MD Unavailable [phone] Encounter Details Date Type Department Care Team (Latest Contact Info) Description 01/28/2024 10:15 AM EDT - 01/28/2024 11:59 PM EDT Hospital Encounter [facility] [address] [place] [address] Primary osteoarthritis of left hip (Primary Dx) Discharge Disposition: Home or Self [...] Info) Description 08/31/2024 8:30 AM EST Appointment [facility] [place] [address] [place] [address] 10/25/2024 10:45 AM EST Office Visit [facility] [address] [place] [address] Jessica Cortes MD [address] [place] [address] 01/25/2025 9:00 AM EDT Appointment [place] [address] [place] [address] 05/09/2025 11:00 AM EDT Appointment [address] [place] [address] 05/09/2025 11:15 AM EDT Appointment [address] [place] [address] Susana Garay MD [address] [place] [address] [place] [address] documented as of this encounter Goals Goal Patient Goal Type Associated Problems Recent Progress Patient-Stated? 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 RN documented as of this encounter Procedures Procedure Name Priority Date/Time Associated Diagnosis Comments CBC Callback 01/28/2024 10:25 AM EDT Primary osteoarthritis of left hip PT / INR Callback 01/28/2024 10:25 AM EDT Primary osteoarthritis of left hip BASIC METABOLIC PANEL Callback 01/28/2024 10:25 AM EDT Primary osteoarthritis of left hip documented in this encounter Results * BASIC METABOLIC PANEL (01/28/2024 10:25 AM EDT) Sodium 140 136 - 145 mmol/L 01/28/2024 3:35 PM EDT [facility] Potassium 4.0 3.5 - 5.0 mmol/L 01/28/2024 3:35 PM EDT [facility] Chloride 103 98 - 107 mmol/L 01/28/2024 3:35 PM EDT [facility] Total CO2 22 22 - 29 mmol/L 01/28/2024 3:35 PM EDT [facility] Anion Gap 15 7 - 16 mmol/L 01/28/2024 3:35 PM EDT [facility] Calcium 8.9 8.6 - 10.4 mg/dL 01/28/2024 3:35 PM EDT [facility] Glucose Lvl 87 70 - 99 mg/dL 01/28/2024 3:35 PM EDT [facility] BUN 7 6 - 20 mg/dL 01/28/2024 3:35 PM EDT [facility] Creatinine 0.70 0.51 - 1.30 mg/dL 01/28/2024 3:35 PM EDT [facility] eGFR (CKD-EPIcr 2020) 103 >=60 mL/min/1.7 3 m2 01/28/2024 3:35 PM EDT [facility] Comment:Estimated GFR was ca lculated using the CKD-EPIcr (2020) equation refit without race. The equation is recommended by the National Kidney Foundation - [place] [employer] of Nephrology Task Force. Blood VENOUS BLOOD / Unknown Venipuncture / Unknown 01/28/2024 10:25 AM EDT 01/28/2024 10:25 AM EDT us Jordy Clifton MD CHEMISTRY ORDERABLES Final Result [facility] [address] [facility] , [place] [address] [facility] 1 [place] [address] * PT / INR (01/28/2024 10:25 AM EDT) PT 11.3 10.5 - 13.6 second(s) 01/28/2024 10:33 AM EDT [facility] INR 0.96 0.89 - 1.16 (ratio) 01/28/2024 10:33 AM EDT [facility] Comment: Level of Therapy ? Indications ?Target INR Range Standard Dose Treatment and prophylaxis of venous ? 2.0 - 3.0 ? thrombosis, pulmonary embolism High Dose ? High risk patients with mechanical ? 2.5 - 3.5 ? heart valves Blood VENOUS BLOOD / Unknown Venipuncture / Unknown 01/28/2024 10:25 AM EDT 01/28/2024 10:25 AM EDT Jordy Clifton MD HEMATOLOGY ORDERABLE S Final Result Performing Organization Address City/State/[facility] Co de Phone Number [facility] [address] [place], [place] [phone] * (ABNORMAL) CBC (01/28/2024 10:25 AM EDT) [facility] WBC 14.1(H) 3.7 - 10.3 x10(3)/mcL 01/28/2024 2:25 PM EDT [facility] RBC 4.82 3.90 - 5.20 x10(6)/mcL 01/28/2024 2:25 PM EDT [facility] Hgb 13.3 11.2 - 15.7 g/dL 01/28/2024 2:25 PM EDT [facility] Hct 43.1 34.0 - 45.0 % 01/28/2024 2:25 PM EDT [facility] MCV 89.4 80.0 - 100.0 fL 01/28/2024 2:25 PM EDT [facility] MCH 27.6 26.0 - 34.0 pg 01/28/2024 2:25 PM EDT [facility] MCHC 30.9 30.7 - 35.5 g/dL 01/28/2024 2:25 PM EDT [email or web address] RDW 17.3(H) <=14.9 % 01/28/2024 2:25 PM EDT [facility] Platelet 365 155 - 369 x10(3)/mcL 01/28/2024 2:25 PM EDT [facility] MPV 9.9 8.8 - 12.5 fL 01/28/2024 2:25 PM EDT [email or web address] Blood VENOUS BLOOD / Unknown Venipuncture / Unknown 01/28/2024 10:25 AM EDT 01/28/2024 10:25 AM EDT us Jordy Clifton MD HEMATOLOGY ORDERABLE S Final Result [facility] [address] [facility] , [address] [place] [id number] documented in this encounter Visit Diagnoses Diagnosis Primary osteoarthritis of left hip- Primary Primary localized osteoarthrosis, pelvic region and thigh documented in this encounter Care Teams Ore Bridge Operator Relationship Specialty Start Date End Date Julisa Kerr MD [address] [place] [phone] PCP - General 02/22/11 Jessica Cortes MD [address] [address] Internal Medicine-Rheumatology 04/26/16 Susana Garay MD [address] [place] [address] Medical Oncologist Internal Medicine-Hematology and Oncology 10/14/22 documented as of this encounter
--- OUTSIDE RECORDS SUMMARY | 2024-08-22 21:37 | XMS_ITS | Encounter Summary ---
Author Organization [place] [address] Care Team Providers Care Talent Analyst Name Role Phone Julisa Kerr MD Primary Care Provider [phone] Jessica Cortes MD Unavailable [phone] Susana Garay MD Unavailable [phone] Reason for Visit * Physical Therapy (Routine) - Authorized Specialty Diagnoses / Procedures Referred By Contac t Referred To Contact Physical Therapist / Physical Therapy Diagnoses Primary osteoarthritis of left hip Jame Webb PA-C [address] [place] [address] Phone: tel: fax: Rae Caro, PT [address] [place] [address] Phone: tel: fax: Referral ID Status Reason Start Date Expiration Date V isits Requested Visits Authorized [id number] Authorized 12/24/2023 12/23/2024 1 20 Encounter Details Date Type Department Care Team (Latest Contact Info) Description 01/29/2024 9:52 AM EDT - 01/29/2024 11:59 PM EDT Hospital Encounter [facility] Physical Therapy [facility] [address] [place] [address] Rae Caro, PT [address] [place] [address] Discharge Disposition: Home or Self Care Social [...] 2 times daily. 60 Tablet 1 01/28/2024 07/01/202 4 hydrOXYzine (ATARAX) 25 mg Oral TabletIndication [...] documented in this encounter Progress Notes * Rae Caro, PT - 01/29/2024 10:00 AM EDT Images from the original note were not included. Physical Therapy Hip Evaluation 01/29/2024 Visit # [...] learning? No Recent falls? 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 Use of ice, [...] PT Date: 01/29/2024 documented in this encounter Miscellaneous Notes * Addendum Note - Rae Caro, PT - 01/29/2024 10:00 AM EDTEncounter addended by: Rae Caro, PT on: 04/15/2024 7:38 AM Actions taken: Episode resolved documented in this encounter Plan of Treatment Upcoming Encounters Date Type Department Care Team (Late st Contact Info) Description 08/31/2024 8:30 AM EST Appointment [address] [address] 10/25/2024 10:45 AM EST Office Visit [facility] [address] [place] [id number] Jessica Cortes MD [address] [place] [address] 01/25/2025 9:00 AM EDT Appointment [address] [address] 05/09/2025 11:00 AM EDT Appointment [address] [address] 05/09/2025 11:15 AM EDT Appointment [address] [address] Susana Garay MD [address] [place] [address] Scheduled Referrals Name Type Priority Associated Diagnoses Orde r Schedule AMB REFERRAL TO PHYSICAL THERAPY Outpatient Referral Routine Primary osteoarthritis of left hip Ordered: 12/24/2023 documented as of this encounter Goals Goal Patient Goal Type Associated Problems Recent Progress Patient-Stated? 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, RN documented as of this encounter Visit Diagnoses Not on filedocumented in this encounter Care Teams Talent Analyst Relationship Specialty Start Date End Date Julisa Kerr MD [address] [place] [address] PCP - General 02/22/11 Jessica Cortes MD [address]51 [facility] Building [address] [place] [address] Internal Medicine-Rheumatology 04/26/16 Susana Garay MD 1 [place] [address] Medical Oncologist Internal Medicine-Hematology and Oncology 10/14/22 documented as of this encounter
--- OUTSIDE RECORDS SUMMARY | 2024-08-22 21:37 | XMS_ITS | Encounter Summary ---
Author Organization [place] [address] Care Team Providers Care Patented Hogshead Assembler Name Role Phone Julisa Kerr MD Primary Care Provider [phone] Jessica Cortes MD Unavailable [phone] Susana Garay MD Unavailable [phone] Reason for Visit * Reason Onset Date Comments Other 01/14/2024 mri approved [facility] aetna Encounter Details Date Type Department Care Team (Late st Contact Info) Description 01/14/2024 Telephone [facility] [address] [place] [address] Julisa Kerr MD [address] [place], [place] [id number] Other (mri approved through [employer] ) Social History Tobacco Use Types Packs/Day [...] 12/08/2023 3:24 PM EDT Kenney, LucianoJARROD * Because of a physical, mental or [...] encounter Miscellaneous Notes * Telephone Encounter - Phill Hernandez RMA - 01/14/2024 10:47 AM EDT noted * Telephone Encounter - Lizette Baeza Clerical Staff - 01/14/2024 9:22 AM EDT Select the most appropriate reason for this telephone message: Other Who is calling (name & relationship to patient if not the patient): Patient What is needed OR why are they calling: just calling sent fax that mri was approved just wanted to call and give office fyi . When is this needed by: Where does this information need to go: Additional information: documented in this encounter Plan of Treatment Upcoming Encounters Date Type Department Care Team (Late st Contact Info) Description 08/31/2024 8:30 AM EST Appointment [facility] [address] [place] [address] 10/25/2024 10:45 AM EST Office Visit [facility] [address] [facility] [address] [place] [phone] Jessica Cortes MD 651 [facility] [address] [place] [address] 01/25/2025 9:00 AM EDT Appointment [address] [place] [address] 05/09/2025 11:00 AM EDT Appointment [address] [place] [address] 05/09/2025 11:15 AM EDT Appointment [address] [place] [address] Susana Garay MD [address] [facility] [address] documented as of this encounter Goals Goal Patient Goal Type Associated Problems Recent Progress Patient-Stated? Author Maintain a healthy diet, exercise regularly and maintain an ideal body weight General Porsche Ashley, RN documented as of this encounter Visit Diagnoses Not on filedocumented in this encounter Care Teams Patented Hogshead Assembler Relationship Specialty Start Date End Date Julisa Kerr MD [address] [place] [address] PCP - General 02/22/11 Jessica Cortes MD [address] [place] [address] [address] [place], [place] [id number] Internal Medicine-Rheumatology 04/26/16 Susana Garay MD [address] [place] [address] [place] [address] Medical Oncologist Internal Medicine-Hematology and Oncology 10/14/22 documented as of this encounter
--- OUTSIDE RECORDS SUMMARY | 2024-08-22 21:37 | XMS_ITS | Encounter Summary ---
Author Organization [place] [address] Care Team Providers Care Meter Maintenance Person Name Role Phone Julisa Kerr MD Primary Care Provider [phone] Jessica Cortes MD Unavailable [phone] Susana Garay MD Unavailable [phone] Reason for Referral * EMG (Routine) - Pending Review Specialty Diagnoses / Procedures Referred By Contact Referred To Contact Psychiatry & Neurology-Neurology / Electromyography Diagnoses Generalized weakness Procedures EMG Arie Stewart MD [address] [place] [address] Phone: tel: fax: Arie Stewart MD [address] [place] [address] Phone: tel: fax: Referral ID Status Reason Start Date Expiration Date V isits Requested Visits Authorized [id number] Pending Review 01/09/2024 01/08/2025 1 1 Reason for Visit * EMG (Routine) - Pending Review Specialty Diagnoses / Procedures Referred By Contact Referred To Contact Psychiatry & Neurology-Neurology / Electromyography Diagnoses Generalized weakness Procedures EMG Arie Stewart MD [address] [place], [place] [id number] Phone: tel: fax: Arie Stewart MD [address] [place] [address] Phone: tel: fax: Referral ID Status Reason Start Date Expiration Date V isits Requested Visits Authorized [id number] Pending Review 01/09/2024 01/08/2025 1 1 Encounter Details Date Type Department Care Team (Latest Contact Info) Description 01/30/2024 7:55 AM EDT - 01/30/2024 11:59 PM EDT Hospital Encounter [facility] EMG [address] [place] [address] Emg, Stewart Edg Generalized weakness Discharge Disposition: Home or Self Care Social [...] Description 08/31/2024 8:30 AM EST Appointment [facility] [address] [place] [address] 10/25/2024 10:45 AM EST Office Visit [facility] [address] [facility] [address] [place] [address] Jessica Cortes MD [address]51 [facility] [address] [place] [address] 01/25/2025 9:00 AM EDT Appointment [facility] [place] [facility] [place] [address] [address] [address] 05/09/2025 11:00 AM EDT Appointment [facility] [place] [address] [address] [address] 05/09/2025 11:15 AM EDT Appointment [facility] [place] [address] [address] [address] Susana Garay MD [address] [place] [address] [place] [address] documented as of this encounter Goals Goal Patient Goal Type Associated Problems Recent Progress Patient-Stated? 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 RN documented as of this encounter Procedures Procedure Name Priority Date/Time Associated Diagnosis Comments EMG Routine 01/30/2024 Generalized weakness documented in this encounter Results * EMG (01/30/2024) Impressions SEP OFFICE - [...] MD NEUROLOGY ORDERABLES Final Result SEP OFFICE documented in this encounter Visit Diagnoses Diagnosis Generalized weakness Other malaise and fatigue documented in this encounter Care Teams Meter Maintenance Person Relationship Specialty Start Date End Date Julisa Kerr MD [address] [place], [place] [id number] PCP - General 02/22/11 Jessica Cortes MD [address] [address] Internal Medicine-Rheumatology 04/26/16 Susana Garay MD [address] [place] [address] Medical Oncologist Internal Medicine-Hematology and Oncology 10/14/22 documented as of this encounter
--- OUTSIDE RECORDS SUMMARY | 2024-08-22 21:37 | XMS_ITS | Encounter Summary ---
Author Organization [place] [address] Care Team Providers Care Real Estate Investment Analyst Name Role Phone Julisa Kerr MD Primary Care Provider [phone] Jessica Cortes MD Unavailable [phone] Susana Garay MD Unavailable [phone] Reason for Visit * Reason Onset Date Comments Medication Refill 01/09/2024 gabapentin (NE URONTIN) 600 mg Oral Tablet Encounter Details Date Type Department Care Team (Late st Contact Info) Description 01/09/[address] [facility] [address] [place] [address] Julisa Kerr MD [address] [place], [place] [phone] Medication Refill (gabapentin (NEURONTIN) 600 mg Oral Tablet) Social [...] sciatica Take 1 Tablet by mouth nightly. 30 Tablet 01/09/2024 01/28/2024 documented in this encounter Miscellaneous Notes * Telephone Encounter - Jhon Peña APRN - 01/09/2024 2:37 PM EDT Sent to pharmacy. * Telephone Encounter - Dania Gutierrez MA - 01/09/2024 2:30 PM EDT Last Refill 12/08/23 VALENT[place] 12/08/23 * Telephone Encounter - Ronan Gutierrez - 01/09/2024 2:20 PM EDT Select the most appropriate reason for this telephone message: Medication Refill Who is requesting the refill: Patient Medication(s)Name/Dosage/Frequency: gabapentin (NEURONTIN) 600 mg Oral Tablet 30 Tablet 0 12/08/2023 -- Sig - Route: Take 1 Tablet by mouth nightly. - Oral Sent to pharmacy as: gabapentin 600 mg tablet (NEURONTIN) E-Prescribing Status: Receipt confirmed by pharmacy (12/08/2023 3:42 PM EDT) Did patient contact the pharmacy first: No How many days left on hand: pt. states doesn't think she has any. Future appt date w/ prescribing provider: no Pharmacy & Location: [facility]/pharmacy #[id number] - [place] [id number] - [address] [place] [address] - [phone] [place], [place] [id number] Additional Notes: med not pended - controlled please advise documented in this encounter Plan of Treatment Upcoming Encounters Date Type Department Care Team (Late st Contact Info) Description 08/31/2024 8:30 AM EST Appointment [place] [address] [place] [address] 10/25/2024 10:45 AM EST Office Visit [facility] [address] [facility] [address] [place] [address] Jessica Cortes MD [address] [facility] [address] [place] [address] 01/25/2025 9:00 AM EDT Appointment [place] [address] [place] [address] 05/09/2025 11:00 AM EDT Appointment [place] [address] [place] [address] 05/09/2025 11:15 AM EDT Appointment [facility] [place] [address] [place], [place] [phone] Susana Garay MD 1 [facility] [address] documented as of this encounter Goals [...] sciatica Take 1 Tablet by mouth nightly. Reorder 12/08/2023 01/09/2024 documented as of this encounter Care Teams Real Estate Investment Analyst Relationship Specialty Start Date End Date Julisa Kerr MD [address] [place] [address] PCP - General 02/22/11 Jessica Cortes MD [address] [address] Internal Medicine-Rheumatology 04/26/16 Susana Garay MD 1 [facility] [address] Medical Oncologist Internal Medicine-Hematology and Oncology 10/14/22 documented as of this encounter
--- OUTSIDE RECORDS SUMMARY | 2024-08-22 21:37 | XMS_ITS | Encounter Summary ---
Author Organization [facility] Address [address] [place] [address] Care Team Providers Care Health Record Technician Name Role Phone Julisa Kerr MD Primary Care Provider [phone] Jessica Cortes MD Unavailable [phone] Susana Garay MD Unavailable [phone] Reason for Visit * Reason Onset Date Comments Patient Question 02/06/2024 Encounter Details Date Type Department Care Team (Late st Contact Info) Description 02/06/2024 Telephone [facility] [address] [facility] [address] [place] [address] Jordy Clifton MD [address] [place] [address] Patient Question Social History Tobacco Use Types Packs/Day Years [...] encounter Miscellaneous Notes * Telephone Encounter - Rosibel Guo MA - 02/06/2024 1:27 PM EDT LVM for patient to let her know that I am going to send something in for her to her pharmacy.----- Message from Mirna Cabrales, Clerical Staff sent at 02/06/2024 7:18 AM EDT ----- Regarding: FW: Climdymiacin has caused mouth thrush Contact: ----- Message ----- From: Yuliet Newsome Sent: 02/05/2024 7:15 PM EDT To: Call Center Pool Subject: Climdymiacin has caused mouth thrush Is there something to help documented in this encounter Plan of Treatment Upcoming Encounters Date Type Department Care Team (Late st Contact Info) Description 08/31/2024 8:30 AM EST Appointment [place] [address] [place] [address] 10/25/2024 10:45 AM EST Office Visit [facility] [address] [facility] [address] [place] [address] Jessica Cortes MD 651 [facility] 19 [place] [address] 01/25/2025 9:00 AM EDT Appointment [address] [place] [address] 05/09/2025 11:00 AM EDT [address]ointment [address] [place] [address] 05/09/2025 11:15 AM EDT [address]ointment [address] [place] [address] Susana Garay MD [address] [facility] [place] [address] documented as of this encounter Goals Goal Patient Goal Type Associated Problems Recent Progress Patient-Stated? 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, RN documented as of this encounter Visit Diagnoses Not on filedocumented in this encounter Care Teams Health Record Technician Relationship Specialty Start Date End Date Julisa Kerr MD [address] [place] [address] PCP - General 02/22/11 Jessica Cortes MD [address] [place] [address] Internal Medicine-Rheumatology 04/26/16 Susana Garay MD [address] [facility] [place] [address] Medical Oncologist Internal Medicine-Hematology and Oncology 10/14/22 documented as of this encounter
--- OUTSIDE RECORDS SUMMARY | 2024-08-22 21:37 | XMS_ITS | Encounter Summary ---
Author Organization [place] [address] Care Team Providers Care Book Jogger Name Role Phone Julisa Kerr MD Primary Care Provider [phone] Jessica Cortes MD Unavailable [phone] Susana Garay MD Unavailable [phone] Reason for Visit * Oncology Medication Prior Authorization (Routine) - Closed Specialty Diagnoses / Procedures Referred By Contac t Referred To Contact Oncology Diagnoses Age-related osteoporosis without current pathological fracture Procedures MN ZOLEDRONIC ACID 1MG Jessica Cortes MD [address] [address] Phone: tel: fax: [facility] [address] [place] [address] Phone: tel: fax: Referral ID Status Reason Start Date Expiration Date Visits Re quested Visits Authorized [id number] Closed 01/09/2024 01/08/2025 1 99 Encounter Details Date Type Department Care Team (Latest Contact Info) Description 01/23/2024 1:13 PM EDT - 01/23/2024 11:59 PM EDT Hospital Encounter [place] [address] [place] [address] Age-related osteoporosis without current pathological fracture (Primary Dx); Generalized weakness Discharge Disposition: Home or Self [...] Sign Reading Time Taken Comments Blood Pressure 99/67 01/23/2024 2:38 PM EDT Pulse 80 01/23/2024 2:38 PM EDT Temperature 36.3 ??C (97.3 ??F) 01/23/2024 2:38 PM ED T Respiratory Rate 18 01/23/2024 2:38 PM EDT Oxygen Saturation 95% 01/23/2024 2:38 PM EDT Inhaled Oxygen Concentration - - Weight 61.7 kg (136 lb) 01/23/2024 2:05 PM EDT Height - - Body Mass Index 24.09 01/09/2024 1:20 PM EDT documented in this [...] Tablet by mouth nightly. 30 Tablet 01/09/2024 4 hydrOXYzine (ATARAX) 25 mg Oral TabletIndication [...] documented in this encounter Progress Notes * Lilly Mora RN - 01/23/2024 1:[address] Sebastian molina to give Reclast infusion with patient having a hip replacement on 01/30/24. documented in this encounter Miscellaneous Notes * Patient Instructions - Rosibel Musa RN - 01/23/2024 1:[address] [facility] Discharge Instructions Thank you for entrusting the [facility] with your care. We hope you are pleased with your outpatient care and services. Because we are most concerned with your health, we suggest you carefully read the following discharge instructions: Your Discharge Instructions: MEDICATION INSTRUCTIONS: Treatment received today: Reclast Reviewed medications administered today and possible side [...] - Friday 8:00 AM - 4:30 PM. [facility] [place] [phone] [place] [address] [place] [address] documented in this encounter Plan of Treatment Upcoming Encounters Date Type Department Care Team (Late st Contact Info) Description 08/31/2024 8:30 AM EST Appointment [facility] Cancer Care [address] [place] [address] 10/25/2024 10:45 AM EST Office Visit [facility] [address] [facility] [address] [place] [address] Jessiac Cortes MD [address]51 [facility] Building [address] [place] [address] 01/25/2025 9:00 AM EDT Appointment [facility] [place] [address] [place] [address] 05/09/2025 11:00 AM EDT Appointment [facility] [place] [address] [address] 05/09/2025 11:15 AM EDT Appointment [facility] [place] [address] [address] Susana Garay MD [address] [place] [address] [place] [address] documented as of this encounter Goals Goal Patient Goal Type Associated Problems Recent Progress Patient-Stated? Author Maintain a healthy diet, exercise regularly and maintain an ideal body weight General Porsche Ashley RN documented as of this encounter Procedures Procedure Name Priority Date/Time Associated Diagnosis Comments ACETYLCHOLINE RECEPTOR MODULATING ANTIBODY - REF LAB Routine 01/23/2024 1:57 PM EDT Generalized weakness ACETYLCHOLINE RECEPTOR BLOCKING ANTIBODY - REF LAB Routine 01/23/2024 1:57 PM EDT Generalized weakness ACETYLCHOLINE BINDING AB -REF LAB Routine 01/23/2024 1:57 PM EDT Generalized weakness METHYLMALONIC ACID (MMA) QUANTITATIVE -REF LAB Routine 01/23/2024 1:57 PM EDT Generalized weakness CREATINE KINASE Routine 01/23/2024 1:57 PM EDT Generalized weakness documented in this encounter Results * ACETYLCHOLINE RECEPTOR BLOCKING ANTIBODY - REF LAB (01/23/2024 1:57 PM EDT) Pathologist [facility] Acetylcholine Receptor Blocking Ab 6 0 - 26 % 01/25/2024 2:33 PM EDT [employer] Comment: INTERPRETIVE INFORMATION: Acetylcholine Blocking Ab [...] developed and its performance characteristics determined by [facility]. It has not been cleared or approved by the US Food and Drug Administration. This test was performed in a CLIA certified laboratory and is intended for clinical purposes. Performed By: [facility] [address] [place] [address] Geophysical Support Specialist: Thierno Cintron MD, PhD CLIA Number: [id number] Blood VENOUS BLOOD / Unknown Venipuncture / Unknown 01/23/2024 1:57 PM EDT 01/23/2024 1:59 PM EDT Arie Stewart MD CHEMISTRY ORDERABLES Final Result [employer] [address], [place] [id number] * ACETYLCHOLINE RECEPTOR MODULATING ANTIBODY - REF LAB (01/23/2024 1:57 PM EDT) Acetylcholine Receptor Modulating Ab 0 <=45 % 01/26/2024 12:22 PM EDT [employer] Comment: INTERPRETIVE INFORMATION: Acetylcholine Modulating Ab ??Negative [...] developed and its performance characteristics determined by [employer]. It has not been cleared or approved by the US Food and Drug Administration. This test was performed in a CLIA certified laboratory and is intended for clinical purposes. Performed By: [facility] [address] [place] [address] Geophysical Support Specialist: Thierno Cintron MD, PhD CLIA Number: [id number] Blood VENOUS BLOOD / Unknown Venipuncture / Unknown 01/23/2024 1:57 PM EDT 01/23/2024 1:59 PM EDT Arie Stewart MD CHEMISTRY ORDERABLES Final Result [employer] [address] [place] [address] * ACETYLCHOLINE BINDING AB -REF LAB (01/23/2024 1:57 PM EDT) [facility] Bind Ab 0.0 0.0 - 0.4 nmol/L 01/26/2024 7:02 AM EDT [employer] Comment: INTERPRETIVE INFORMATION: Acetylcholine Binding Ab ??Negative [...] developed and its performance characteristics determined by [employer]. It has not been cleared or approved by the US Food and Drug Administration. This test was performed in a CLIA certified laboratory and is intended for clinical purposes. Performed By: [facility] [address] [place] [address] Geophysical Support Specialist: Thierno Cintron MD, PhD CLIA Number: [id number] Blood VENOUS BLOOD / Unknown Venipuncture / Unknown 01/23/2024 1:57 PM EDT 01/23/2024 1:59 PM EDT Arie Stewart MD CHEMISTRY ORDERABLES Final Result Performing Organization Address [facility] de Phone Number [facility] [place] [phone] * METHYLMALONIC ACID (MMA) QUANTITATIVE -REF LAB (01/23/2024 1:57 PM EDT) [facility] MMA 0.15 0.00 - 0.40 umol/L 01/26/2024 12:08 AM EDT [employer] Comment: INTERPRETIVE INFORMATION: MMA Serum/Plasma, ?Vitamin B12 Status This test was developed and its performance characteristics determined by [employer]. It has not been cleared or approved by the [place] Food and Drug Administration. This test was performed in a CLIA certified laboratory and is intended for clinical purposes. Performed By: [facility] [address] [place], [place] [id number] Geophysical Support Specialist: Thierno Cintron MD, PhD CLIA Number: [id number] Blood VENOUS BLOOD / Unknown Venipuncture / Unknown 01/23/2024 1:57 PM EDT 01/23/2024 1:59 PM EDT Arie Stewart MD CHEMISTRY ORDERABLES Final Result Performing Organization Address [facility] de Phone Number [employer] [facility] [address] [place] [phone] * (ABNORMAL) CREATINE KINASE (01/23/2024 1:57 PM EDT) Pathologist [facility] CK 24(L) 26 - 192 U/L 01/23/2024 9:46 PM EDT [employer] Blood VENOUS BLOOD / Unknown Venipuncture / Unknown 01/23/2024 1:57 PM EDT 01/23/2024 2:05 PM EDT us Arie Stewart MD CHEMISTRY ORDERABLES Final Result [employer] [facility] , [address] [place] [phone] documented in this encounter Visit Diagnoses Diagnosis Age-related osteoporosis without current pathological fracture- Primary Senile osteoporosis Generalized weakness Other malaise and fatigue documented in this encounter Administered Medications Inactive Administered Medications - up to 1 most recent administrations Medication Order MAR Action Action Date Dose Rate Site 0.9 % NaCl infusion Intravenous, at 30 mL/hr, CONTINUOUS, Starting on Fri01/23/24 at 1330, Until 01/24/24 at 1329, For telephone lineworker during 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 Age-related osteoporosis without current pathological fractureIndications:Age-rel ated osteoporosis without current pathological fracture Rate/Dose Change 01/23/2024 2:36 PM EDT 300 mL/hr sodium chloride 0.9% syringe Intravenous, PRN, Starting on Fri01/23/24 at 1322, Until 01/25/24 at 0403, Line Care, Flush after IV medication, Dx: 1. Age-related osteoporosis without current pathological fractureIndications:Age-rel ated osteoporosis without current pathological fracture Given 01/23/2024 2:00 PM EDT 10 mL zoledronic acid (RECLAST) 5 mg/100 mL IVPB 5 mg 5 mg, Intravenous, at 300 mL/hr, ONCE, 1 dose, On Fri01/23/24 at 1400, Dx: 1. Age-related osteoporosis without current pathological fractureIndications:Age-rel ated osteoporosis without current pathological fracture IV Started 01/23/2024 2:09 PM EDT 5 mg 300 mL/hr documented in this encounter Care Teams Book Jogger Relationship Specialty Start Date End Date Julisa Kerr MD [address] [place] [address] PCP - General 02/22/11 Jessica Cortes MD 651 [facility] Building [address] [place] [address] Internal Medicine-Rheumatology 04/26/16 Susana Garay MD 1 [place] [address] Medical Oncologist Internal Medicine-Hematology and Oncology 10/14/22 documented as of this encounter
--- OUTSIDE RECORDS SUMMARY | 2024-08-22 21:37 | XMS_ITS | Encounter Summary ---
Author Organization [facility] [place] [address] Care Team Providers Care Spout Tender Name Role Phone Julisa Kerr MD Primary Care Provider [phone] Jessica Cortes MD Unavailable [phone] Susana Garay MD Unavailable [phone] Encounter Details Date Type Department Care Team (Latest Contact Info) Description 01/07/2024 Travel Social History Tobacco Use Types Packs/Day [...] Description 08/31/2024 8:30 AM EST Appointment [address] [place] [address] 10/25/2024 10:45 AM EST Office Visit [facility] [address] [place] [address] Jessica Cortes MD [address] [place] [address] 01/25/2025 9:00 AM EDT Appointment [address] [place] [address] 05/09/2025 11:00 AM EDT Appointment [address] [place] [address] 05/09/2025 11:15 AM EDT Appointment [address] [place] [address] Susana Garay MD [address] [place] [address] [place] [address] documented as of this encounter Goals Goal Patient Goal Type Associated Problems Recent Progress Patient-Stated? 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, RN documented as of this encounter Visit Diagnoses Not on filedocumented in this encounter Care Teams Spout Tender Relationship Specialty Start Date End Date Julisa Kerr MD [address] [place], [place] [id number] PCP - General 02/22/11 Jessica Cortes MD [address] [place] [address] Internal Medicine-Rheumatology 04/26/16 Susana Garay MD [address] [place] [address] Medical Oncologist Internal Medicine-Hematology and Oncology 10/14/22 documented as of this encounter
--- OUTSIDE RECORDS SUMMARY | 2024-08-22 21:37 | XMS_ITS | Encounter Summary ---
Author Organization [facility] Address [address] [place] [address] Care Team Providers Care Dining Host Name Role Phone Julisa Kerr MD Primary Care Provider [phone] Jessica Cortes MD Unavailable [phone] Susana Garay MD Unavailable [phone] Encounter Details Date Type Department Care Team (Latest Contact Info) Description 02/12/2024 11:40 AM EDT Ancillary Procedure [facility] [address] [facility] [address] [place], [place] [id number] Jame Webb PA-C [address] [place] [address] S/P total left hip arthroplasty Social History Tobacco Use Types Packs/Day Years [...] Info) Description 08/31/2024 8:30 AM EST Appointment [place] [address] [place] [address] 10/25/2024 10:45 AM EST Office Visit [facility] RHEUMATOLOGY [facility] [address] [facility] [address] [place] [address] Jessica Cortes MD [address] [place] [address] Building [address] [place] [address] 01/25/2025 9:00 AM EDT Appointment [place] [address] [place] [address] 05/09/2025 11:00 AM EDT Appointment [place] [address] [place] [address] 05/09/2025 11:15 AM EDT Appointment [place] [address] [place] [address] Susana Garay MD 1 [facility] [place] [address] documented as of this encounter Goals Goal Patient Goal Type Associated Problems Recent Progress Patient-Stated? 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 RN documented as of this encounter Procedures Procedure Name Priority Date/Time Associated Diagnosis Comments XR HIP LEFT AP LATERAL W AP PELVIS Routine 02/12/2024 11:43 AM EDT S/P total left hip arthroplasty documented in this encounter Results * XR HIP LEFT AP LATERAL W AP PELVIS (02/12/2024 11:43 AM EDT) Narrative [facility] - 02/12/2024 11:43 AM EDT Please see physician's note from office encounter for x-ray imaging result Jame Webb PA-C IMG DIAGNOSTIC IMAGING ORDERA BLES Final Result documented in this encounter Visit Diagnoses Diagnosis S/P total left hip arthroplasty documented in this encounter Care Teams Dining Host Relationship Specialty Start Date End Date Julisa Kerr MD [address] [place], [place] [id number] PCP - General 02/22/11 Jessica Cortes MD [address] [address] Internal Medicine-Rheumatology 04/26/16 Susana Garay MD 1 [facility] [place] [address] Medical Oncologist Internal Medicine-Hematology and Oncology 10/14/22 documented as of this encounter
--- OUTSIDE RECORDS SUMMARY | 2024-08-22 21:37 | XMS_ITS | Encounter Summary ---
Author Organization [facility] [place] [address] Care Team Providers Care Veterans Services Specialist Name Role Phone Julisa Kerr MD Primary Care Provider [phone] Jessica Cortes MD Unavailable [phone] Susana Garay MD Unavailable [phone] Encounter Details Date Type Department Care Team (Latest Contact Info) Description 01/27/2024 Travel Social History Tobacco Use Types Packs/Day [...] Info) Description 08/31/2024 8:30 AM EST Appointment [address] [place] [address] 10/25/2024 10:45 AM EST Office Visit [facility] R[facility]UMATOLOGY [facility] [address] [place] [address] Jessica Cortes MD [address] [place] [address] 01/25/2025 9:00 AM EDT Appointment [address] [place] [address] 05/09/2025 11:00 AM EDT Appointment [address] [place] [address] 05/09/2025 11:15 AM EDT Appointment [address] [place] [address] Susana Garay MD [address] [place] [address] [place] [address] documented as of this encounter Goals Goal Patient Goal Type Associated Problems Recent Progress Patient-Stated? 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, RN documented as of this encounter Visit Diagnoses Not on filedocumented in this encounter Care Teams Veterans Services Specialist Relationship Specialty Start Date End Date Julisa Kerr MD [address] [place], [place] [id number] PCP - General 02/22/11 Jessica Cortes MD [address] [place] [address] Internal Medicine-Rheumatology 04/26/16 Susana Garay MD [address] [place] [address] Medical Oncologist Internal Medicine-Hematology and Oncology 10/14/22 documented as of this encounter
--- OUTSIDE RECORDS SUMMARY | 2024-08-22 21:37 | XMS_ITS | Encounter Summary ---
Author Organization [facility] [place] [address] Care Team Providers Care Veneer Marker Name Role Phone Julisa Kerr MD Primary Care Provider [phone] Jessica Cortes MD Unavailable [phone] Susana Garay MD Unavailable [phone] Reason for Referral * MRI/CAT Scan (Routine) - Closed Specialty Diagnoses / Procedures Referred By Contac t Referred To Contact Radiology Diagnoses Hyperreflexia Procedures MRI CERVICAL SPINE W WO CONTRAST Arie Stewart MD [address] [place] [address] Phone: tel: fax: [facility] MRI [address] [facility] [place] [address] Phone: tel: Referral ID Status Reason Start Date Expiration Date Visits Re quested Visits Authorized [id number] Closed 01/09/2024 01/08/2025 1 1 Reason for Visit * MRI/CAT Scan (Routine) - Closed Specialty Diagnoses / Procedures Referred By Contac t Referred To Contact Radiology Diagnoses Hyperreflexia Procedures MRI CERVICAL SPINE W WO CONTRAST Arie Stewart MD [address] [place] [address] Phone: tel: fax: [facility] [address] [place] [address] Phone: tel: Referral ID Status Reason Start Date Expiration Date Visits Re quested Visits Authorized [id number] Closed 01/09/2024 01/08/2025 1 1 Encounter Details Date Type Department Care Team (Late st Contact Info) Description 02/02/2024 8:42 AM EDT Hospital Encounter [facility] [address] [place] [address] Arie Stewart MD [address] [place] [address] Hyperreflexia Discharge Disposition: Home or Self Care Social [...] Description 08/31/2024 8:30 AM EST Appointment [facility] [address] [place] [address] 10/25/2024 10:45 AM EST Office Visit [facility] R[facility] [address] [facility] [address] [place] [address] Jessica Cortes MD [address] [facility] 19 [place] [address] 01/25/2025 9:00 AM EDT Appointment [place] [address] [place] [address] 05/09/2025 11:00 AM EDT Appointment [place] [address] [place] [address] 05/09/2025 11:15 AM EDT Appointment [place] [address] [place] [address] Susana Garay MD [address] [place] [address] [place] [address] documented as of this encounter Goals Goal Patient Goal Type Associated Problems Recent Progress Patient-Stated? 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 RN documented as of this encounter Procedures Procedure Name Priority Date/Time Associated Diagnosis Comments MRI CERVICAL SPINE W WO CONTRAST Routine 02/02/2024 10:06 AM EDT Hyperreflexia documented in this encounter Results * MRI CERVICAL SPINE [...] 02/02/2024 10:06 AM ?? CLINICAL HISTORY: ??R29.2-Abnormal [id number]. COMPARISON: ??MRI 12/31/2018. PROCEDURE COMMENTS: Multiplanar, multisequence [...] CONTRAST 02/02/2024 10:06 AM CLINICAL HISTORY: R29.2-Abnormal [id number]. COMPARISON: MRI 12/31/2018. PROCEDURE COMMENTS: Multiplanar, multisequence [...] the ordering clinician. us Arie Stewart MD IM MRI ORDERABLES Final Re sult documented in this encounter Visit Diagnoses Diagnosis Hyperreflexia Abnormal reflex documented in this encounter Administered Medications Inactive Administered Medications - up to 1 most recent administrations Medication Order MAR Action Action Date Dose Rate Site gadoterate meglumine (DOTAREM) solution 10 mL 10 mL, Intravenous, ONCE PRN, 1 dose, Starting on Fri02/02/24 at 0855, Until Fri02/02/24 at 0951, Radiology Procedure, VESICANT , MRI (Contrasts) Given 02/02/2024 9:51 AM EDT 10 mL Left Arm sodium chloride 0.9% syringe Intravenous, ONCE PRN, 1 dose, Starting on Fri02/02/24 at 0855, Until Fri02/02/24 at 0952, Line Care, Flush peripheral lines every 12 hours, central lines every 8 hours, and after IV medication, MRI (Contrasts) Given 02/02/2024 9:52 AM EDT Left Arm documented in this encounter Care Teams Veneer Marker Relationship Specialty Start Date End Date Julisa Kerr MD 100 [place], [place] [id number] PCP - General 02/22/11 Jessica Cortes MD 651 [facility] 19 [place] [address] Internal Medicine-Rheumatology 04/26/16 Susana Garay MD [address] [place] [address] Medical Oncologist Internal Medicine-Hematology and Oncology 10/14/22 documented as of this encounter
--- OUTSIDE RECORDS SUMMARY | 2024-08-22 21:37 | XMS_ITS | Encounter Summary ---
Author Organization [place] [address] Care Team Providers Care Solderer Torch Name Role Phone Julisa Kerr MD Primary Care Provider [phone] Jessica Cortes MD Unavailable [phone] Susana Garay MD Unavailable [phone] Reason for Referral * MRI/CAT Scan (Routine) - Closed Specialty Diagnoses / Procedures Referred By Contac t Referred To Contact Radiology Diagnoses Benign head tremor Weakness of both upper extremities Procedures MRI BRAIN W WO CONTRAST Jhon Peña APRN [address] [place] [address] Phone: tel: fax: [facility] [address] [place] [address] Phone: tel: Referral ID Status Reason Start Date Expiration Date Visits Re quested Visits Authorized [id number] Closed 01/07/2024 01/06/2025 1 1 Reason for Visit * Reason Comments Tremors Encounter Details Date Type Department Care Team (Late st Contact Info) Description 01/07/2024 4:00 PM EDT Telemedicine [facility] [address] [place] [id number] Jhon Peña APRN [address] [place] [address] Benign head tremor (Primary Dx); Weakness of both upper extremities Social History Tobacco Use Types Packs/Day Years [...] this encounter Progress Notes * Jhon Peña, IRRIGATION SYSTEM INSTALLER - 01/07/2024 4:00 PM EDT Patient presented today for routine care follow-up through a video visit. Patient has reviewed the terms and conditions of service as part of the registration for today's visit. A video visit does not replace a axbg-qe-hiel exam and further services may be necessary. We are conducting her video visit in a private space and this video visit is being conducted in accordance with state telehealth/video visit regulations. HPI: Presents virtually with head tremors and arm weakness for the last several days. CT neck at [facility] ED recently normal. Scheduled to see neuro on Friday. Review of Systems Neurological: Positive for tremors, weakness and numbness. Exam: Constitutional: NAD, appropriately groomed. Appears comfortable. [...] Diagnoses and all orders for this visit: Benign head tremor - MRI BRAIN W WO CONTRAST; Future Weakness of both upper extremities - MRI BRAIN W WO CONTRAST; Future documented in this encounter Plan of Treatment Upcoming Encounters Date Type Department Care Team (Late st Contact Info) Description 08/31/2024 8:30 AM EST Appointment [place] [address] [place] [address] 10/25/2024 10:45 AM EST Office Visit [facility] [address] [place] [address] Jessica Cortes MD [address] [place] [address] 01/25/2025 9:00 AM EDT Appointment [place] [address] [place] [address] 05/09/2025 11:00 AM EDT Appointment [place] [address] [address] [place] [address] 05/09/2025 11:15 AM EDT Appointment [facility] [place] [address] [address] Susana Garay MD [address] [place] [address] [place] [address] documented as of this encounter Goals Goal Patient Goal Type Associated Problems Recent Progress Patient-Stated? 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 RN documented as of this encounter Results * MRI BRAIN W WO CONTRAST (02/02/2024 10:53 AM EDT) Anatomical Region Laterality Modality Head Magnetic Resonan ce 02/02/2024 10:5 3 AM EDT Impressions 02/02/2024 11:12 AM EDT Normal MRI of the brain without and with contrast. Narrative 02/02/2024 11:12 AM EDT MRI BRAIN W WO CONTRAST ??02/02/2024 10:53 AM ?? CLINICAL HISTORY: ??G25.0-Essential uxyegc-MKZ-90-CM R29.898-Other symptoms and signs involving the musculoskeletal cgyqqn-EGW-53-CM. COMPARISON: ??Brain MRI from 05/30/2023. PROCEDURE COMMENTS: [...] CONTRAST 02/02/2024 10:53 AM CLINICAL HISTORY: G25.0-Essential fetbgw-MRQ-28-CM R29.898-Other symptoms and signs involving the czfjtxaljaovawgkaelnn-ZCH-95-CM. COMPARISON: Brain MRI from 05/30/2023. PROCEDURE COMMENTS: [...] this encounter Visit Diagnoses Diagnosis Benign head tremor- Primary Essential and other specified forms of tremor Weakness of both upper extremities Benign head tremor Essential and other specified forms of tremor Weakness of both upper extremities documented in this encounter Care Teams Solderer Torch Relationship Specialty Start Date End Date Julisa Kerr MD [address] [place] [address] PCP - General 02/22/11 Jessica Cortes MD [address] [address] Internal Medicine-Rheumatology 04/26/16 Susana Garay MD [address] [place] [address] [place] [address] Medical Oncologist Internal Medicine-Hematology and Oncology 10/14/22 documented as of this encounter
--- OUTSIDE RECORDS SUMMARY | 2024-08-22 21:37 | XMS_ITS | Encounter Summary ---
Author Organization [place] [address] Care Team Providers Care Lead Ramp Service Man Name Role Phone Julisa Kerr MD Primary Care Provider [phone] Jessica Cortes MD Unavailable [phone] Susana Garay MD Unavailable [phone] Reason for Referral * Mammography (Routine) - Pending Review Specialty Diagnoses / Procedures Referred By Anatoliy cole Referred To Contact Radiology Diagnoses Encounter for screening mammogram for breast cancer Procedures MM MAMMO DIGITAL MCKAY SCREEN Julisa Landrum MD [address] [place] [address] Phone: tel: fax: Referral ID Status Reason Start Date Expiration Date V isits Requested Visits Authorized [id number] Pending Review 06/10/2023 06/10/2025 1 1 Reason for Visit * Mammography (Routine) - Pending Review Specialty Diagnoses / Procedures Referred By Anatoliy cole Referred To Contact Radiology Diagnoses Encounter for screening mammogram for breast cancer Procedures MM MAMMO DIGITAL MCKAY SCREEN BILJulisa Justice MD [address] [place] [address] Phone: tel: fax: Referral ID Status Reason Start Date Expiration Date V isits Requested Visits Authorized [id number] Pending Review 06/10/2023 06/10/2025 1 1 Encounter Details Date Type Department Care Team (Late st Contact Info) Description 02/11/2024 10:23 AM EDT - 02/11/2024 11:59 PM EDT Hospital Encounter [facility] Mammography [address] [place] [address] Julisa Kerr MD [address] [place] [id number] Encounter for screening mammogram for breast cancer Discharge Disposition: Home or Self Care Social [...] 3:24 PM EDT Luciano Kennye RMA * Is the person blind or [...] Info) Description 08/31/2024 8:30 AM EST Appointment [place] [address] [place] [address] 10/25/2024 10:45 AM EST Office Visit [facility] [address] [facility] [address] [place] [address] Jessica Cortes MD [address] [facility] [address] [place] [address] 01/25/2025 9:00 AM EDT Appointment [place] [address] [place] [address] 05/09/2025 11:00 AM EDT Appointment [facility] [place] [place] [address] [address] 05/09/2025 11:15 AM EDT Appointment [facility] [place] [address] Susana Garay MD [address] [place] [address] [place] [address] documented as of this encounter Goals Goal Patient Goal Type Associated Problems Recent Progress Patient-Stated? Author Maintain a healthy diet, exercise regularly and maintain an ideal body weight General Porsche Ashley RN documented as of this encounter Procedures Procedure Name Priority Date/Time Associated Diagnosis Comments MM MAMMO DIGITAL MCKAY SCREEN BILAT Routine 02/11/2024 10:55 AM EDT Encounter for screening mammogram for breast cancer documented in this encounter Results * MM MAMMO DIGITAL MCKAY SCREEN BILAT (02/11/2024 10:55 AM EDT) Anatomical Region Laterality Modality Breast Bilateral Mammography 02/11/2024 12:1 7 PM EDT Impressions 02/11/2024 12:17 PM EDT Negative ??(JSI-Tfsinzyw-1) ~ RECOMMENDATION: Routine screening mammogram in 1 [...] the next mammogram, in accordance with the [employer] and the Society of Breast Imaging recommendations. Narrative 02/11/2024 12:17 PM EDT Procedure:MM MAMMO DIGITAL MCKAY SCREEN BILAT ~ Reason for exam: screening, asymptomatic. Z12.31-Encounter for screening mammogram for malignant neoplasm of ncijlj-VFP-66-CM ~ MM MAMMO DIGITAL MCKAY SCREEN BILAT [...] for screening mammogram for malignant neoplasm of wzgpnn-EBI-62-CM ~ MM MAMMO DIGITAL MCKAY SCREEN BILAT Bilateral CC and MLO view(s) were taken. The breast tissue is heterogeneously dense. This may lower thesensitivity of mammography. Prior study comparison: None available No mammographic evidence of malignancy. ~ IMPRESSION: Negative (XYX-Kjyyacbh-4) ~ RECOMMENDATION: Routine screening mammogram in 1 [...] the next mammogram, in accordance with the [employer] and the Society of Breast Imaging recommendations. Julisa Kerr MD IM MAMMOGRAPHY ORDERABLES Fin al Result documented in this encounter Visit Diagnoses Diagnosis Encounter for screening mammogram for breast cancer documented in this encounter Care Teams Lead Ramp Service Man Relationship Specialty Start Date End Date Julisa Kerr MD [address] [place] [id number] PCP - General 02/22/11 Jessica Cortes MD 651 [facility] 19 [place] [address] Internal Medicine-Rheumatology 04/26/16 Susana aGray MD [address] [place] [address] [place] [address] Medical Oncologist Internal Medicine-Hematology and Oncology 10/14/22 documented as of this encounter
--- OUTSIDE RECORDS SUMMARY | 2024-08-22 21:38 | XMS_ITS | Encounter Summary ---
Author Organization [place] [address] Care Team Providers Care Acetone Button Paster Name Role Phone Julisa Kerr MD Primary Care Provider [phone] Jessica Cortes MD Unavailable [phone] Susana Garay MD Unavailable [phone] Reason for Visit * Reason Comments Medication Refill Encounter Details Date Type Department Care Team (Late st Contact Info) Description 10/06/2023 Refill [facility] [address] [address] Susana Garay MD [address] [place] [address] Medication Refill Social History Tobacco Use Types Packs/Day Years Used Date Smoking Tobacco: Never Smokeless Tobacco: Never Alcohol Use Standard Drinks/Week Comments Yes 0 (1 standard drink = 0.6 oz pur e alcohol) occasional PHQ-2 Answer Date Recorded PHQ-2 Total Score 0 06/10/2023 Sexually Active Control Partners Comments Yes Comments [...] No 06/10/2023 11:21 AM Dillon Mcnamara MA documented as of this encounter Mental Status * Because of a physical, mental or emotional condition, does this person have serious difficulty concentrating, remembering or making decisions? Answer Entry Date Author No 06/10/2023 11:21 AM Dillon Mcnamara MA documented in this encounter Ordered Prescriptions Prescription Sig Dispense Quantity Refills Last Filled Start Date End Date ELIQUIS 5 mg Oral TabletIndications: Antiphospholipid syndrome (HCC),History of DVT in adulthood TAKE 1 TABLET BY MOUTH TWICE A DAY 90 Tablet 2 10/07/2023 03/29/2024 documented in this encounter Miscellaneous Notes * Telephone Encounter - Mirna Bradley RN - 10/07/2023 8:20 AM EST Received refill request for eliquis for pt. Reviewed chart. Last RX was sent on 05/14 with 2 refills, so refill is appropriate. Last office note on 05/26 states: Indefinite NOAC. Escript for eliquis sent to pt's pharmacy. documented in this encounter Plan of Treatment Upcoming Encounters Date Type Department Care Team (Late st Contact Info) Description 08/31/2024 8:30 AM EST Appointment [facility] [address] [place] [address] 10/25/2024 10:45 AM EST Office Visit [facility] [address] [place] [facility] [address] [place] [address] Jessica Cortes MD 651 [facility] [address] [place] [address] 01/25/2025 9:00 AM EDT Appointment [place] [address] [place] [address] 05/09/2025 11:00 AM EDT Appointment [place] [address] [place] [address] 05/09/2025 11:15 AM EDT Appointment [address] [place] [address] Susana Garay MD [address] [place] [address] [address] [place] [id number] documented as of this encounter Goals Goal [...] 1 TABLET BY MOUTH TWICE A DAY 05/14/2023 10/07/2023 documented as of this encounter Care Teams Acetone Button Paster Relationship Specialty Start Date End Date Julisa Kerr MD [address] [place] [address] PCP - General 02/22/11 Jessica Cortes MD [address] [facility] [address] [place], [place] [id number] Internal Medicine-Rheumatology 04/26/16 Susana Garay MD [address] [facility] [address] [place] [id number] Medical Oncologist Internal Medicine-Hematology and Oncology 10/14/22 documented as of this encounter
--- OUTSIDE RECORDS SUMMARY | 2024-08-22 21:38 | XMS_ITS | Encounter Summary ---
Author Organization [place] [address] Care Team Providers Care Buckle Strap Puncher Name Role Phone Julisa Kerr MD Primary Care Provider [phone] Jessica Cortes MD Unavailable [phone] Susana Garay MD Unavailable [phone] Reason for Visit * Reason Comments Medication Refill Encounter Details Date Type Department Care Team (Late st Contact Info) Description 11/15/2023 Refill [facility] [address] [place] [address] Jessica Cortes MD [address] [facility] [address] [place] [address] Medication Refill Social History Tobacco Use Types [...] of Assessment Author No 06/10/2023 11:21 AM EDDillon Brennan MA * Is the person blind or does he/she have serious difficulty seeing even when wearing glasses? Answer Date of Assessment Author No 06/10/2023 11:21 AM Dillon Mcnamara MA * Does this person have serious difficulty walking or climbing stairs? Answer Date of Assessment Author No 06/10/2023 11:21 AM EDDillon Brennan MA * Does this person have difficulty dressing or bathing? Answer Date of Assessment Author No 06/10/2023 11:21 AM EDDillon Brennan MA * Because of a physical, [...] TABLET BY MOUTH EVERY DAY 30 Tablet 11/17/2023 12/08/2023 documented in this encounter Miscellaneous Notes * Telephone Encounter - Estela Chambers MA - 11/17/2023 11:20 AM EST Last OV 10/03/23 Last BW 10/03/23 Next OV 01/09/24 Chart reviewed. Per chart - Prednisone 5 mg daily. documented in this encounter Plan of Treatment Upcoming Encounters Date Type Department Care Team (Late st Contact Info) Description 08/31/2024 8:30 AM EST [address]ointment [address] [place] [address] 10/25/2024 10:45 AM EST Office Visit [facility] [address] [facility] [address] [place] [address] Jessica Cortes MD 651 [facility] 19 [place] [address] 01/25/2025 9:00 AM EDT Appointment [place] [address] [place] [address] 05/09/2025 11:00 AM EDT [address]ointment [address] [place] [address] 05/09/2025 11:15 AM EDT [address]ointment [address] [place] [address] Susana Garay MD [address] [place] [address] documented as of this encounter Goals Goal [...] (HCC) Take 1 Tablet by mouth daily. 10/03/2023 11/17/2023 documented as of this encounter Care Teams Buckle Strap Puncher Relationship Specialty Start Date End Date Julisa Kerr MD [address] [place] [address] PCP - General 02/22/11 Jessica Cortes MD 651 [facility] 19 [place] [address] Internal Medicine-Rheumatology 04/26/16 Susana Garay MD [address] [facility] [place] [address] Medical Oncologist Internal Medicine-Hematology and Oncology 10/14/22 documented as of this encounter
--- OUTSIDE RECORDS SUMMARY | 2024-08-22 21:38 | XMS_ITS | Encounter Summary ---
Author Organization [facility] Address [address] [place] [address] Care Team Providers Care Truck Service Technician Name Role Phone Julisa Kerr MD Primary Care Provider [phone] Jessica Cortes MD Unavailable [phone] Susana Garay MD Unavailable [phone] Reason for Visit * Reason Onset Date Comments Other 12/26/2023 Encounter Details Date Type Department Care Team (Late st Contact Info) Description 12/26/2023 Telephone [place] [phone] Jordy Clifton MD [address] [place] [address] Other Social History Tobacco Use Types Packs/Day [...] * Telephone Encounter - Marie Suárez - 12/26/2023 3:09 PM EDT Patient is scheduled for her surgery on 01/30/2024 @ [facility] * Telephone Encounter - Kal Purvis, Clerical Staff - 12/26/2023 1:57 PM EDT She is calling to see if she has been scheduled for surgery. Please call back with an update documented in this encounter Plan of Treatment Upcoming Encounters Date Type Department Care Team (Late st Contact Info) Description 08/31/2024 8:30 AM EST Appointment [facility] [address] [place] [address] 10/25/2024 10:45 AM EST Office Visit [facility] [address] [place] [facility] [address] [place] [address] Jessica Cortes MD [address] [address] 01/25/2025 9:00 AM EDT Appointment [address] [place] [address] 05/09/2025 11:00 AM EDT Appointment [address] [place] [address] 05/09/2025 11:15 AM EDT Appointment [address] [place] [address] Susana Garay MD [address] [place] [address] [address] [place], [place] [id number] documented as of this encounter Goals Goal Patient Goal Type Associated Problems Recent Progress Patient-Stated? 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, RN documented as of this encounter Visit Diagnoses Not on filedocumented in this encounter Care Teams Truck Service Technician Relationship Specialty Start Date End Date Julisa Kerr MD [address] [place] [address] PCP - General 02/22/11 Jessica Cortes MD [address] [address] Internal Medicine-Rheumatology 04/26/16 Susana Garay MD [address] [place] [address] [place] [address] Medical Oncologist Internal Medicine-Hematology and Oncology 10/14/22 documented as of this encounter
--- OUTSIDE RECORDS SUMMARY | 2024-08-22 21:38 | XMS_ITS | Encounter Summary ---
Author Organization [place] [address] Care Team Providers Care Intelligence Manager Name Role Phone Julisa Kerr MD Primary Care Provider [phone] Jessica Cortes MD Unavailable [phone] Susana Garay MD Unavailable [phone] Reason for Visit * Reason Onset Date Comments Appointment Needed 01/05/2024 office visit Encounter Details Date Type Department Care Team (Late st Contact Info) Description 01/05/2024 Telephone [facility] [address] [place] [address] Julisa Kerr MD [address] [place] [address] Appointment Needed (office visit ) Social History Tobacco Use Types Packs/Day [...] encounter Miscellaneous Notes * Telephone Encounter - Yolanda Valdez - 01/05/2024 10:44 AM EDT Spoke to Pt. No in office but we do have VV for 01/05/24. Pt stated she was told by ED to be seen in office in 48 hr of ED visit. Pt stated she had to work on 01/05, but stated she will got back to the ED if she gets worse. No appt created as pt schedule would not allow. * Telephone Encounter - Yamil Higgins COA - 01/05/2024 10:40 AM EDT Select the most appropriate reason for this telephone message: Appointment Needed Appointment Requested By: Patient Provider Preference: Any Available Type of Appt Needed: Office Visit Detailed Reason for Appt: f/u ed head tremors Requested Timeframe: Today Reason Scheduling Assistance is Needed: -no appts available with provider preference in time frame needed Additional Notes: documented in this encounter Plan of Treatment Upcoming Encounters Date Type Department Care Team (Late st Contact Info) Description 08/31/2024 8:30 AM EST Appointment [address] [address] 10/25/2024 10:45 AM EST Office Visit [facility] [address] [place] [address] Jessica Cortes MD [address] [place] [address] 01/25/2025 9:00 AM EDT Appointment [address] [address] 05/09/2025 11:00 AM EDT Appointment [address] [address] 05/09/2025 11:15 AM EDT Appointment [address] [address] Susana Garay MD [address] [place] [address] documented as of this encounter Goals Goal Patient Goal Type Associated Problems Recent Progress Patient-Stated? Author Maintain a healthy diet, exercise regularly and maintain an ideal body weight General Porsche Ashley, RN documented as of this encounter Visit Diagnoses Not on filedocumented in this encounter Care Teams Intelligence Manager Relationship Specialty Start Date End Date Julisa Kerr MD [address] [place] [address] PCP - General 02/22/11 Jessica Cortes MD [address] [place] [address] Internal Medicine-Rheumatology 04/26/16 Susana Garay MD [address] [place] [address] Medical Oncologist Internal Medicine-Hematology and Oncology 10/14/22 documented as of this encounter
--- OUTSIDE RECORDS SUMMARY | 2024-08-22 21:38 | XMS_ITS | Encounter Summary ---
Author Organization [place] [address] Care Team Providers Care Spinner Frame Name Role Phone Julisa Kerr MD Primary Care Provider [phone] Jessica Cortes MD Unavailable [phone] Susana Garay MD Unavailable [phone] Reason for Visit * Reason Comments Pharmacy Rheumatology Management Simponi Encounter Details Date Type Department Care Team (Latest Contact Info) Description 11/05/2023 Specialty Pharmacy [facility] [address] [phone] Sara Rodriguez, Yvonne Pharmacy Rheumatology Management (Simponi) Social History Tobacco [...] of Assessment Author No 06/10/2023 11:21 AM EDT Dillon Levy MA * Is the person blind or does he/she have serious difficulty seeing even when wearing glasses? Answer Date of Assessment Author No 06/10/2023 11:21 AM EDT Dillon Levy MA * Does this person have serious difficulty walking or climbing stairs? Answer Date of Assessment Author No 06/10/2023 11:21 AM EDDillon Brennan MA * Does this person have difficulty dressing or bathing? Answer Date of Assessment Author No 06/10/2023 11:21 AM EDT Dillon Levy MA * Because of a physical, mental or emotional condition, does this person have difficulty doing errands alone such as visiting a doctor's office or shopping? Answer Date of Assessment Author No 06/10/2023 11:21 AM EDDillon Brennan MA documented as of this encounter Mental Status * Because of a physical, mental or emotional condition, does this person have serious difficulty concentrating, remembering or making decisions? Answer Entry Date Author No 06/10/2023 11:21 AM EDDillon Brennan MA documented in this encounter Progress Notes * Sara Rodriguez CPhT - 11/05/2023 10:08 AM EST Specialty Pharmacy Refill Coordination Note Contacted Yuliet Trevino today regarding refills of Simponi. Sent [employer] message. * Rosibel Melo CPhT - 11/05/2023 10:08 AM EST Specialty Pharmacy Refill Coordination Note Contacted Yuliet Trevino today regarding refills of Simponi. Medication to be delivered by [facility] on 11/11. Spoke with patient. documented in this encounter Plan of Treatment Upcoming Encounters Date Type Department Care Team (Late st Contact Info) Description 08/31/2024 8:30 AM EST Appointment [facility] [address] [place] [address] 10/25/2024 10:45 AM EST Office Visit [facility] [address] [place] [address] Jessica Cortes MD [facility] [facility] [address] [place] [address] 01/25/2025 9:00 AM EDT Appointment [address] [place] [address] 05/09/2025 11:00 AM EDT Appointment [address] [place] [address] 05/09/2025 11:15 AM EDT Appointment [address] [place] [address] Susana Garay MD [address] [facility] [place] [address] documented as of this encounter Goals Goal Patient Goal Type Associated Problems Recent Progress Patient-Stated? 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, RN documented as of this encounter Visit Diagnoses Not on filedocumented in this encounter Care Teams Spinner Frame Relationship Specialty Start Date End Date Julisa Kerr MD [address] [place] [address] PCP - General 02/22/11 Jessica Cortes MD [address] [place] [address] 19 [place] [address] Internal Medicine-Rheumatology 04/26/16 Susana Garay MD [address] [place] [address] [address] [place], [place] [phone] Medical Oncologist Internal Medicine-Hematology and Oncology 10/14/22 documented as of this encounter
--- OUTSIDE RECORDS SUMMARY | 2024-08-22 21:38 | XMS_ITS | Encounter Summary ---
Author Organization [place] [address] Care Team Providers Care Nanotechnology Engineering Technologist Name Role Phone Julisa Kerr MD Primary Care Provider [phone] Jessica Cortes MD Unavailable [phone] Susana Garay MD Unavailable [phone] Reason for Visit * Reason Comments Medication Refill Encounter Details Date Type Department Care Team (Late st Contact Info) Description 12/06/2023 Refill [facility] [address] [place] [address] Julisa Kerr MD [address] [place] [address] Medication Refill Social History Tobacco Use Types [...] Assessment Author No 06/10/2023 11:21 AM Dillon Mcnamraa MA * Does this person have serious [...] A DAY NEEDED 90 Tablet 2 12/08/2023 03/11/2024 documented in this encounter Plan of Treatment Upcoming Encounters Date Type Department Care Team (Late st Contact Info) Description 08/31/2024 8:30 AM EST Appointment [address] [place] [address] 10/25/2024 10:45 AM EST Office Visit [facility] [address] [facility] [address] [place] [address] Jessica Cortes MD 651 [facility] Building 19 [place] [address] 01/25/2025 9:00 AM EDT Appointment [address] [place] [address] 05/09/2025 11:00 AM EDT Appointment [facility] [address] [place] [address] 05/09/2025 11:15 AM EDT Appointment [facility] [place] [address] Susana Garay MD [address] [facility] [place] [address] documented as of this encounter Goals [...] BY MOUTH THREE TIMES A DAY NEEDED 09/02/2023 12/08/2023 documented as of this encounter Care Teams Nanotechnology Engineering Technologist Relationship Specialty Start Date End Date Julisa Kerr MD [address] [place] [address] PCP - General 02/22/11 Jessica Cortes MD 651 [facility] 19 [place] [address] Internal Medicine-Rheumatology 04/26/16 Susana Garay MD [address] [facility] [place] [address] Medical Oncologist Internal Medicine-Hematology and Oncology 10/14/22 documented as of this encounter
--- OUTSIDE RECORDS SUMMARY | 2024-08-22 21:38 | XMS_ITS | Encounter Summary ---
Author Organization [facility] [place] [address] Care Team Providers Care Cut Off Saw Operator Pipe Blanks Name Role Phone Julisa Kerr MD Primary Care Provider [phone] Jessica Cortes MD Unavailable [phone] Susana Garay MD Unavailable [phone] Encounter Details Date Type Department Care Team (Latest Contact Info) Description 10/28/2023 Travel Social History Tobacco Use Types Packs/Day [...] Levy MA * Does this person have difficulty dressing or bathing? Answer Date of Assessment Author No 06/10/2023 11:21 AM EDT Dillon Levy MA * Because of a physical, mental or emotional condition, does this person have difficulty doing errands alone such as visiting a doctor's office or shopping? Answer Date of Assessment Author No 06/10/2023 11:21 AM EDT Dillon Levy MA documented as of this encounter Mental Status * Because of a physical, mental or emotional condition, does this person have serious difficulty concentrating, remembering or making decisions? Answer Entry Date Author No 06/10/2023 11:21 AM EDDillon Brennan MA documented in this encounter Plan of Treatment Upcoming Encounters Date Type Department Care Team (Late st Contact Info) Description 08/31/2024 8:30 AM EST Appointment [address] [place] [address] 10/25/2024 10:45 AM EST Office Visit [facility] R[facility] [address] [place] [address] Jessica Cortes MD [address] [place] [address] 01/25/2025 9:00 AM EDT [address]ointment [address] [address] 05/09/2025 11:00 AM EDT [address]ointment [address] [place] [address] 05/09/2025 11:15 AM EDT [address]ointment [address] [place] [address] Susana Garay MD [address] [place] [address] [place] [address] documented as of this encounter Goals Goal Patient Goal Type Associated Problems Recent Progress Patient-Stated? 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, RN documented as of this encounter Visit Diagnoses Not on filedocumented in this encounter Care Teams Cut Off Saw Operator Pipe Blanks Relationship Specialty Start Date End Date Julisa Kerr MD [address] [place] [address] PCP - General 02/22/11 Jessica Cortes MD [address] [address] Internal Medicine-Rheumatology 04/26/16 Suasna Garay MD [address] [place] [address] Medical Oncologist Internal Medicine-Hematology and Oncology 10/14/22 documented as of this encounter
--- OUTSIDE RECORDS SUMMARY | 2024-08-22 21:38 | XMS_ITS | Encounter Summary ---
Author Organization [place] [address] Care Team Providers Care Poising Inspector Name Role Phone Julisa Kerr MD Primary Care Provider [phone] Jessica Cortes MD Unavailable [phone] Susana Garay MD Unavailable [phone] Encounter Details Date Type Department Care Team (Latest Contact Info) Description 12/15/2023 12:29 PM EDT - 12/15/2023 11:59 PM EDT Hospital Encounter [facility] [address] [place] [address] Therapeutic drug monitoring Discharge Disposition: [...] this encounter Medications at Time of Discharge diclofenac (VOLTAREN) 75 mg Oral Tablet, Delayed Release (E.C.)Indication s:Rheumatoid arthritis involving multiple sites with positive rheumatoid factor (HCC) TAKE 1 TABLET BY MOUTH TWICE A DAY 60 Tablet 12/08/2023 4 hydrOXYzine (ATARAX) 25 mg Oral TabletIndication s:Itching TAKE 1 TABLET BY MOUTH THREE TIMES A DAY NEEDED 90 Tablet 2 12/08/2023 4 methotrexate sodium 25 mg/mL Inj SolutionIndicati ons:Rheumatoid arthritis involving multiple sites with positive rheumatoid factor (HCC) Subcutaneous (Inject under the skin) 0.8 mL once a week. 4 mL 1 10/03/2023 4 documented as of this encounter Discharge Disposition Disposition Code Departure Means Destination Home or Self Care documented in this encounter Plan of Treatment Upcoming Encounters Date Type Department Care Team (Late st Contact Info) Description 08/31/2024 8:30 AM EST Appointment [facility] [address] [place] [address] 10/25/2024 10:45 AM EST Office Visit [facility] R[facility] [address] [facility] [address] [place] [address] Jessica Cortes MD 651 [facility] Building [address] [place] [address] 01/25/2025 9:00 AM EDT Appointment [place] [address] [place] [address] 05/09/2025 11:00 AM EDT Appointment [address] [place] [address] [place] [address] 05/09/2025 11:15 AM EDT Appointment [address] [address] [place] [address] Susana Garay MD [address] [place] [address] [place] [address] documented as of this encounter Goals Goal Patient Goal Type Associated Problems Recent Progress Patient-Stated? Author Maintain a healthy diet, exercise regularly and maintain an ideal body weight General Porsche Ashley RN documented as of this encounter Procedures Procedure Name Priority Date/Time Associated Diagnosis Comments SEDIMENTATION RATE AUTOMATED Routine 12/15/2023 12:28 PM EDT Therapeutic drug monitoring CBC WITH DIFF Routine 12/15/2023 12:28 PM EDT Therapeutic drug monitoring C-REACTIVE PROTEIN Routine 12/15/2023 12 :28 PM EDT Therapeutic drug monitoring COMPREHENSIVE METABOLIC PANEL Routine 12/15/2023 12:28 PM EDT Therapeutic drug monitoring documented in this encounter Results * COMPREHENSIVE METABOLIC PANEL (12/15/2023 12:28 PM EDT) Sodium 140 136 - 145 mmol/L 12/15/2023 8:41 PM EDT [facility] Potassium 4.2 3.5 - 5.0 mmol/L 12/15/2023 8:41 PM EDT [facility] Chloride 103 98 - 107 mmol/L 12/15/2023 8:41 PM EDT [facility] Total CO2 28 22 - 29 mmol/L 12/15/2023 8:41 PM EDT [facility] Anion Gap 9 7 - 16 mmol/L 12/15/2023 8:41 PM EDT [facility] Calcium 9.9 8.6 - 10.4 mg/dL 12/15/2023 8:41 PM EDT [facility] Glucose Lvl 82 70 - 99 mg/dL 12/15/2023 8:41 PM EDT [facility] BUN 8 6 - 20 mg/dL 12/15/2023 8:41 PM EDT [facility] Creatinine 0.76 0.51 - 1.30 mg/dL 12/15/2023 8:41 PM EDT [facility] Albumin 3.9 3.5 - 5.2 gm/dL 12/15/2023 8:41 PM EDT [facility] Total Protein 7.6 6.4 - 8.3 gm/dL 12/15/2023 8:41 PM EDT [facility] Bili Total 0.3 0.2 - 1.3 mg/dL 12/15/2023 8:41 PM EDT [facility] ALT 12 <=41 U/L 12/15/2023 8:41 PM EDT [facility] AST 19 <=40 U/L 12/15/2023 8:41 PM EDT [facility] Alk Phos 94 36 - 123 U/L 12/15/2023 8:41 PM EDT [facility] eGFR (CKD-EPIcr 2020) 93 >=60 mL/min/1.7 3 m2 12/15/2023 8:41 PM EDT [facility] Comment:Estimated GFR was ca lculated using the CKD-EPIcr (2020) equation refit without race. The equation is recommended by the National Kidney Foundation - [place] [employer] of Nephrology Task Force. Blood VENOUS BLOOD / Unknown Venipuncture / Unknown 12/15/2023 12:28 PM EDT 12/15/2023 12:28 PM EDT us Jessica Cortes MD CHEMISTRY ORDERABLES Siobhan finnegan Result [facility] [address] [facility] [place] [address] [facility] 1 [place] [address] * (ABNORMAL) CBC WITH DIFF (12/15/2023 12:28 PM EDT) WBC 9.3 3.7 - 10.3 x10(3)/mcL 12/15/2023 8:28 PM EDT [facility] RBC 4.88 3.90 - 5.20 x10(6)/mcL 12/15/2023 8:28 PM EDT [facility] Hgb 13.3 11.2 - 15.7 g/dL 12/15/2023 8:28 PM EDT [facility] Hct 44.4 34.0 - 45.0 % 12/15/2023 8:28 PM EDT [facility] MCV 91.0 80.0 - 100.0 fL 12/15/2023 8:28 PM EDT [facility] MCH 27.3 26.0 - 34.0 pg 12/15/2023 8:28 PM EDT [facility] MCHC 30.0(L) 30.7 - 35.5 g/dL 12/15/2023 8:28 PM EDT [facility] RDW 15.8(H) <=14.9 % 12/15/2023 8:28 PM EDT [facility] Platelet 545(H) 155 - 369 x10(3)/mcL 12/15/2023 8:28 PM EDT [facility] MPV 10.0 8.8 - 12.5 fL 12/15/2023 8:28 PM EDT [facility] Neut Percent 51.0 % 12/15/2023 8:28 PM EDT [facility] Comment:Neutrophils equals s egs plus bands Imm Gran% 1.4 % 12/15/2023 8:28 PM EDT [facility] Comment:Automated count of m etamyelocytes, myelocytes and promyelocytes. IG >1% represents a left shift and provides an early indication of an infection or inflammatory process. Lymph Percent 30.3 % 12/15/2023 8:28 PM EDT [facility] [place] Percent 12.1 % 12/15/2023 8:28 PM EDT [facility] Eos Percent 4.2 % 12/15/2023 8:28 PM EDT [facility] Baso Percent 1.0 % 12/15/2023 8:28 PM EDT [facility] Neut # 4.8 1.6 - 6.1 x10(3)/[facility] 12/15/2023 8:28 PM EDT [facility] Comment:Neutrophils equals s egs plus bands IMMGRAN# 0.1 0.0 - 0.1 x10(3)/[facility] 12/15/2023 8:28 PM EDT [facility] Comment:Automated count of m etamyelocytes, myelocytes and promyelocytes. An absolute IG <0.1 is reported as 0.0. Lymph # 2.8 1.2 - 3.9 x10(3)/[facility] 12/15/2023 8:28 PM EDT [facility] [place] # 1.1(H) 0.3 - 0.9 x10(3)/[facility] 12/15/2023 8:28 PM EDT [facility] Eos# 0.4 0.0 - 0.5 x10(3)/mcL 12/15/2023 8:28 PM EDT [facility] Baso # 0.1 0.0 - 0.1 x10(3)/[facility] 12/15/2023 8:28 PM EDT [facility] Blood VENOUS BLOOD / Unknown Venipuncture / Unknown 12/15/2023 12:28 PM EDT 12/15/2023 12:28 PM EDT us Jessica Cortes MD HEMATOLOGY ORDERABLES Fin al Result [facility] 1 [facility] , [place] [address] * (ABNORMAL) C-REACTIVE PROTEIN (12/15/2023 12:28 PM EDT) CRP 33.43(H) <=5.00 mg/L 12/15/2023 8:41 PM EDT [facility] Blood VENOUS BLOOD / Unknown Venipuncture / Unknown 12/15/2023 12:28 PM EDT 12/15/2023 12:28 PM EDT Jessica Cortes MD CHEMISTRY ORDERABLES Siobhan l Result [facility] [address] [facility], [place] [address] * SEDIMENTATION RATE AUTOMATED (12/15/2023 12:28 PM EDT) Pathologist [facility] Sed Rate 23 0 - 30 mm/hr 12/15/2023 8:28 PM EDT [facility] Blood VENOUS BLOOD / Unknown Venipuncture / Unknown 12/15/2023 12:28 PM EDT 12/15/2023 12:28 PM EDT Jessica Cortes MD HEMATOLOGY ORDERABLES Fin al Result Performing Organization Address City/Special Care Hospital/[place] [address] documented in this encounter Visit Diagnoses Diagnosis Therapeutic drug monitoring Encounter for therapeutic drug monitoring documented in this encounter Care Teams Poising Inspector Relationship Specialty Start Date End Date Julisa Kerr MD [address] [place] [address] PCP - General 02/22/11 Jessica Cortes MD [address] [place], [place] [id number] Internal Medicine-Rheumatology 04/26/16 Susana Garay MD [address] [place] [address] Medical Oncologist Internal Medicine-Hematology and Oncology 10/14/22 documented as of this encounter
--- OUTSIDE RECORDS SUMMARY | 2024-08-22 21:38 | XMS_ITS | Encounter Summary ---
Author Organization [place] [address] Care Team Providers Care Elementary Librarian Name Role Phone Julisa Kerr MD Primary Care Provider [phone] Jessica Cortes MD Unavailable [phone] Susana Garay MD Unavailable [phone] Reason for Visit * Reason Comments Arthritis Feet and hands swoll en Encounter Details Date Type Department Care Team (Late st Contact Info) Description 12/08/2023 3:15 PM EDT Office Visit [facility] [address] [place] [id number] Jhon Peña, PRODUCTION FINISHER [address] [place], [place] [id number] Rheumatoid arthritis involving multiple sites with positive rheumatoid factor (HCC); Acute bilateral low back pain without sciatica [...] Sign Reading Time Taken Comments Blood Pressure 124/70 12/08/2023 3:26 PM EDT Pulse - - Temperature 36.2 ??C (97.2 ??F) 12/08/2023 3:26 PM ED T Respiratory Rate - - Oxygen Saturation - - Inhaled Oxygen Concentration - - Weight 63 kg (139 lb) 12/08/2023 3:26 PM EDT Height 160 cm (5' 3 ) 12/08/2023 3:26 PM EDT Body Mass Index 24.62 12/08/2023 3:26 PM EDT documented in this encounter Functional [...] 1 Tablet by mouth daily. 30 Tablet 12/08/2023 01/20/2024 gabapentin (NEURONTIN) 600 mg Oral TabletIndications: Rheumatoid arthritis involving multiple sites with positive rheumatoid factor (HCC),Acute bilateral low back pain without sciatica Take 1 Tablet by mouth nightly. 30 Tablet 12/08/2023 01/09/2024 documented in this encounter Progress Notes * Jhon PeñaJOSE - 12/08/2023 3:15 PM EDT Vitals: 12/08/23 1526 BP: 124/70 Temp: 97.2 ??F (36.2 ??C) TempSrc: Temporal Weight: 139 lb (63 kg) Height: 5' 3 (1.6 m) Body mass index is 24.62 kg/m??. SUBJECTIVE: Chief Complaint Patient presents with Arthritis Feet and hands swollen HPI: ARTHRITIS Joints swelling and tenderness comes and goes. Bad weather makes pain worse. moderate and increasing No signs or symptoms of medication problems. Review of Systems Musculoskeletal: Positive for arthralgias and joint swelling. OBJECTIVE: Physical Exam Constitutional: General: She is not in acute distress. Appearance: She is well-developed. She is not diaphoretic. HENT: Head: Normocephalic and atraumatic. Eyes: General: Right eye: No discharge. Left eye: No discharge. Neck: Vascular: No JVD. Cardiovascular: Rate and Rhythm: Normal rate and regular rhythm. Heart sounds: Normal heart sounds. No murmur heard. Pulmonary: Effort: Pulmonary effort is normal. No respiratory distress. Breath sounds: Normal breath sounds. No wheezing or rales. Musculoskeletal: General: Normal range of motion. Cervical back: Normal range of motion and neck supple. Skin: General: Skin is warm and dry. Findings: No rash. Neurological: Mental Status: She is alert and oriented to person, place, and time. Psychiatric: Behavior: Behavior normal. Thought Content: Thought content normal. Judgment: Judgment normal. Assessment Diagnoses and all orders for this visit: Rheumatoid arthritis involving multiple sites with positive rheumatoid factor (HCC) (Chronic) - gabapentin (NEURONTIN) 600 mg Oral Tablet; Take 1 Tablet by mouth nightly. Dispense: 30 Tablet; Refill: 0 - predniSONE (DELTASONE) 5 mg Oral Tablet; Take 1 Tablet by mouth daily. Dispense: 30 Tablet; Refill: 0 - methylPREDNISolone acetate (DEPO-Medrol) injection 80 mg Acute bilateral low back pain without sciatica - gabapentin (NEURONTIN) 600 mg Oral Tablet; Take 1 Tablet by mouth nightly. Dispense: 30 Tablet; Refill: 0 - methylPREDNISolone acetate (DEPO-Medrol) injection 80 mg documented in this encounter Plan of Treatment Upcoming Encounters Date Type Department Care Team (Late st Contact Info) Description 08/31/2024 8:30 AM EST Appointment [address] [address] 10/25/2024 10:45 AM EST Office Visit [facility] [address] [place] [address] Jessica Cortes MD [address] [place] [address] 01/25/2025 9:00 AM EDT Appointment [address] [address] 05/09/2025 11:00 AM EDT Appointment [address] [address] 05/09/2025 11:15 AM EDT Appointment [address] [address] Susana Garay MD [address] [place] [address] documented as of this encounter Goals Goal Patient Goal Type Associated Problems Recent Progress Patient-Stated? Author Maintain a healthy diet, exercise regularly and maintain an ideal body weight General No Porshce Jeffery RN documented as of this encounter Visit Diagnoses Diagnosis Rheumatoid arthritis involving multiple sites with positive rheumatoid factor (HCC) Acute bilateral low back pain without sciatica documented in this encounter Administered Medications Inactive Administered Medications - up to 1 most recent administrations Medication Order MAR Action Action Date Dose Rate Site methylPREDNISolone acetate (DEPO-Medrol) injection 80 mg 80 mg, Intramuscular, ONCE, 1 dose, On Fri12/08/23 at 1545, Dx: 1. Rheumatoid arthritis involving multiple sites with positive rheumatoid factor (HCC) 2. Acute bilateral low back pain without sciaticaIndications:Rhe umatoid arthritis involving multiple sites with positive rheumatoid factor (HCC),Acute bilateral low back pain without sciatica Given 12/08/2023 3:52 PM EDT 80 mg Left Upper Outer Quadrant documented in this encounter Discontinued Medications Medication Sig Discontinue Reason Start Date End Da te azithromycin (ZITHROMAX) 250 mg Oral Tablet Take 2 tablets (500 mg) on Day 1, followed by 1 tablet (250 mg) once daily on Days 2 through 5. DELETE-Therapy completed 08/27/2023 12/08/2023 oxyCODONE (ROXICODONE) 5 mg Oral TabletIndications:S/P total knee arthroplasty, right Take 1 Tablet by mouth 2 times daily. DELETE-Therapy completed 09/04/2023 12/08/2023 gabapentin (NEURONTIN) 600 mg Oral TabletIndications:Rheu matoid arthritis involving multiple sites with positive rheumatoid factor (HCC),Acute bilateral low back pain without sciatica Take 1 Tablet by mouth nightly. Reorder 10/29/2023 12/08/2023 predniSONE (DELTASONE) 5 mg Oral TabletIndications:Rheu matoid arthritis involving multiple sites with positive rheumatoid factor (HCC) TAKE 1 TABLET BY MOUTH EVERY DAY Reorder 11/17/2023 12/08/2023 documented as of this encounter Care Teams Elementary Librarian Relationship Specialty Start Date End Date Julisa Kerr MD [address] [place] [address] PCP - General 02/22/11 Jessica Cortes MD [address] [place] [address] Internal Medicine-Rheumatology 04/26/16 Susana Garay MD [address] [place] [address] [place] [address] Medical Oncologist Internal Medicine-Hematology and Oncology 10/14/22 documented as of this encounter
--- OUTSIDE RECORDS SUMMARY | 2024-08-22 21:38 | XMS_ITS | Encounter Summary ---
Author Organization [place] [address] Care Team Providers Care Forest Fire Equipment Operator Name Role Phone Julisa Kerr MD Primary Care Provider [phone] Jessica Cortes MD Unavailable [phone] Susana Garay MD Unavailable [phone] Reason for Visit * Reason Comments Pharmacy Rheumatology Management Simponi Encounter Details Date Type Department Care Team (Latest Contact Info) Description 12/02/2023 Specialty Pharmacy [facility] [address] [phone] Porsche Joyce CPhT Pharmacy Rheumatology Management (Simponi) Social History [...] documented in this encounter Progress Notes * Porsche Joyce CPhT - 12/02/2023 9:31 AM EST Specialty Pharmacy Refill Coordination Note Contacted Yuliet Trevino today regarding refills of Simponi. No answer, left voicemail to call [phone], option 4. * Porsche Joyce CPhT - 12/02/2023 9:31 AM EST Specialty Pharmacy Refill Coordination Note Contacted Yuliet Trevino today regarding refills of Simponi. Medication to be delivered by [facility] on 12/04. Spoke with patient. documented in this encounter Plan of Treatment Upcoming Encounters Date Type Department Care Team (Late st Contact Info) Description 08/31/2024 8:30 AM EST Appointment [facility] Cancer [address] [place] [address] 10/25/2024 10:45 AM EST Office Visit [facility] [address] [facility] [address] [place] [address] Jessica Cortes MD 651 [facility] 19 [place] [address] 01/25/2025 9:00 AM EDT Appointment [address] [place] [address] 05/09/2025 11:00 AM EDT Appointment [address] [place] [address] 05/09/2025 11:15 AM EDT Appointment [address] [place] [address] Susana Garay MD [address] [facility] [address] [place] [phone] documented as of this encounter Goals Goal Patient Goal Type Associated Problems Recent Progress Patient-Stated? 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, RN documented as of this encounter Visit Diagnoses Not on filedocumented in this encounter Care Teams Forest Fire Equipment Operator Relationship Specialty Start Date End Date Julisa Kerr MD [address] [place] [address] PCP - General 02/22/11 Jessica Cortes MD [address] [facility] 19 [place] [address] Internal Medicine-Rheumatology 04/26/16 Susana Garay MD [address] [facility] [address] [place] [phone] Medical Oncologist Internal Medicine-Hematology and Oncology 10/14/22 documented as of this encounter
--- OUTSIDE RECORDS SUMMARY | 2024-08-22 21:38 | XMS_ITS | Encounter Summary ---
Author Organization [place] [address] Care Team Providers Care Welfare Adviser Name Role Phone Julisa Kerr MD Primary Care Provider [phone] Jessica Cortes MD Unavailable [phone] Susana Garay MD Unavailable [phone] Reason for Visit * Reason Comments Medication Refill Encounter Details Date Type Department Care Team (Late st Contact Info) Description 10/06/2023 Refill [facility] [address] [place] [address] Julisa Kerr MD [address] [place] [address] Medication Refill Social History Tobacco Use Types [...] Refills Last Filled Start Date End Date DULoxetine (CYMBALTA) 30 mg Oral Capsule, Delayed Release(E.C.) TAKE 1 CAPSULE BY MOUTH EVERY DAY 30 Capsule 10/08/2023 4 documented in this encounter Miscellaneous Notes * Telephone Encounter - Jaqueline Joyce MA - 10/07/2023 3:53 PM EST Do you want patient on this med? Not currently on list. * Telephone Encounter - Cherrie Ferrera CPhT - 10/07/2023 3:03 PM EST Medication refill request deferred to office staff. managing principal Reason: Medication discontinued or inactive on the medication list documented in this encounter Plan of Treatment Upcoming Encounters Date Type Department Care Team (Late st Contact Info) Description 08/31/2024 8:30 AM EST Appointment [address] [address] [place] [address] 10/25/2024 10:45 AM EST Office Visit [facility] [address] [facility] [address] [place] [address] Jessica Cortes MD 651 [facility] 19 [place] [address] 01/25/2025 9:00 AM EDT Appointment [address] [place] [address] 05/09/2025 11:00 AM EDT Appointment [address] [place] [address] 05/09/2025 11:15 AM EDT Appointment [address] [place] [address] Susana Garay MD [address] [facility] [place] [address] documented as of this encounter Goals Goal Patient Goal Type Associated Problems Recent Progress Patient-Stated? Author Maintain a healthy diet, exercise regularly and maintain an ideal body weight General Porsche Ashley, RN documented as of this encounter Visit Diagnoses Not on filedocumented in this encounter Care Teams Welfare Adviser Relationship Specialty Start Date End Date Julisa Kerr MD [address] [place] [address] PCP - General 02/22/11 Jessica Cortes MD [address] [place] [address] 19 [place] [address] Internal Medicine-Rheumatology 04/26/16 Susana Garay MD [address] [place] [address] [place] [address] Medical Oncologist Internal Medicine-Hematology and Oncology 10/14/22 documented as of this encounter
--- OUTSIDE RECORDS SUMMARY | 2024-08-22 21:38 | XMS_ITS | Encounter Summary ---
Author Organization [place] [address] Care Team Providers Care Public Relations Account Executive Name Role Phone Julisa Kerr MD Primary Care Provider [phone] Jessica Cortes MD Unavailable [phone] Susana Garay MD Unavailable [phone] Reason for Visit * Reason Comments Medication Refill Encounter Details Date Type Department Care Team (Late st Contact Info) Description 12/14/2023 Refill [facility] [address] [place] [address] Jessica Cortes MD [address]51 [facility] Building 19 [place] [address] Medication Refill Social History Tobacco Use Types [...] 12/08/2023 3:24 PM EDT Luciano Kenney MATTHEWCarlene documented in this encounter Miscellaneous Notes * Telephone Encounter - Ana An RMA - 12/15/2023 9:33 AM EDT too soon to refill Last refilled on 12/08/23 documented in this encounter Plan of Treatment Upcoming Encounters Date Type Department Care Team (Late st Contact Info) Description 08/31/2024 8:30 AM EST Appointment [facility] [address] [place] [address] 10/25/2024 10:45 AM EST Office Visit [facility] [address] [facility] [address] [place] [phone] Jessica Cortes MD [address] [facility] Building 19 [place] [address] 01/25/2025 9:00 AM EDT Appointment [address] [address] [place] [address] 05/09/2025 11:00 AM EDT [address]ointment [address] [place] [place] [address] 05/09/2025 11:15 AM EDT Appointment [address] [place] [address] Susana Garay MD [address] [facility] [place] [address] documented as of this encounter Goals Goal Patient Goal Type Associated Problems Recent Progress Patient-Stated? Author Maintain a healthy diet, exercise regularly and maintain an ideal body weight General Porsche Ashley, RN documented as of this encounter Visit Diagnoses Diagnosis Rheumatoid arthritis involving multiple sites with positive rheumatoid factor (HCC) documented in this encounter Care Teams Public Relations Account Executive Relationship Specialty Start Date End Date Julisa Kerr MD [address] [place] [address] PCP - General 02/22/11 Jessica Cortes MD [address] [place] [phone] Internal Medicine-Rheumatology 04/26/16 Susana Garay MD [address] [place] [address] [place] [address] Medical Oncologist Internal Medicine-Hematology and Oncology 10/14/22 documented as of this encounter
--- OUTSIDE RECORDS SUMMARY | 2024-08-22 21:38 | XMS_ITS | Encounter Summary ---
Author Organization [place] [address] Care Team Providers Care Track Greaser Name Role Phone Julisa Kerr MD Primary Care Provider [phone] Jessica Cortes MD Unavailable [phone] Susana Garay MD Unavailable [phone] Reason for Visit * Reason Onset Date Comments Central Order Completion Outreach 01/02/2024 mammogram Encounter Details Date Type Department Care Team (Late st Contact Info) Description 01/02/2024 Patient Outreach [facility] [address] [place] [address] Julisa Kerr MD [address] [place] [address] Central Order Completion Outreach (mammogram ) Social [...] Kennye RMA * Does this person have difficulty [...] Progress Notes * Matilda Duarte, RN - 01/02/2024 12:20 PM EDT SEP Order Completion Outcome Tracking Contact Attempt:: No Contact Attempted Mammogram Outcome:: Acute Reason documented in this encounter Plan of Treatment Upcoming Encounters Date Type Department Care Team (Late st Contact Info) Description 08/31/2024 8:30 AM EST Appointment [facility] Cancer [facility] Center [address] [place] [address] 10/25/2024 10:45 AM EST Office Visit [facility] [address] [facility] [address] [place] [address] Jessica Cortes MD [address] [facility] Building 19 [place] [address] 01/25/2025 9:00 AM EDT Appointment [address] [address] [place] [address] 05/09/2025 11:00 AM EDT Appointment [facility] [place] [address] 05/09/2025 11:15 AM EDT Appointment [address] [place] [address] Susana Garay MD [address] [facility] [place] [address] documented as of this encounter Goals Goal Patient Goal Type Associated Problems Recent Progress Patient-Stated? Author Maintain a healthy diet, exercise regularly and maintain an ideal body weight General Porsche Ashley, RN documented as of this encounter Visit Diagnoses Not on filedocumented in this encounter Care Teams Track Greaser Relationship Specialty Start Date End Date Julisa Kerr MD [address] [place] [phone] PCP - General 02/22/11 Jessica Cortes MD [address] [place] [address] Internal Medicine-Rheumatology 04/26/16 Susana Garay MD [address] [place] [address] [place] [address] Medical Oncologist Internal Medicine-Hematology and Oncology 10/14/22 documented as of this encounter
--- OUTSIDE RECORDS SUMMARY | 2024-08-22 21:38 | XMS_ITS | Encounter Summary ---
Author Organization [place] [address] Care Team Providers Care Manufacturer Name Role Phone Julisa Kerr MD Primary Care Provider [phone] Jessica Cortes MD Unavailable [phone] Susana Garay MD Unavailable [phone] Reason for Visit * Reason Comments Medication Refill Encounter Details Date Type Department Care Team (Late st Contact Info) Description 10/06/2023 Refill [facility] [address] [place] [address] Jessica Cortes MD [address]51 [place] [address] Medication Refill Social History Tobacco Use Types [...] Refills Last Filled Start Date End Date diclofenac (VOLTAREN) 75 mg Oral Tablet, Delayed Release (E.C.)Indications: Rheumatoid arthritis involving multiple sites with positive rheumatoid factor (HCC) TAKE 1 TABLET BY MOUTH TWICE A DAY 60 Tablet 1 10/07/2023 12/08/2023 documented in this encounter Miscellaneous Notes * Telephone Encounter - Ana An RMA - 10/07/2023 7:31 AM EST last visit: 10/03/23 last labs:10/03/23 next visit:01/09/24 chart reviewed: Diclofenac 75 mg BID documented in this encounter Plan of Treatment Upcoming Encounters Date Type Department Care Team (Late st Contact Info) Description 08/31/2024 8:30 AM EST Appointment [facility] Cancer Care Center [address] [place] [address] 10/25/2024 10:45 AM EST Office Visit [facility] [address] [facility] [address] [place] [address] Jessica Cortes MD 651 [facility] 19 [place] [address] 01/25/2025 9:00 AM EDT Appointment [address] [place] [address] 05/09/2025 11:00 AM EDT Appointment [address] [place] [address] 05/09/2025 11:15 AM EDT Appointment [address] [place] [address] Susana Garay MD [address] [place] [address] [place] [address] documented as of this encounter Goals Goal Patient Goal Type Associated Problems Recent Progress Patient-Stated? Author Maintain a healthy diet, exercise regularly and maintain an ideal body weight General Porsche Ashley, RN documented as of this encounter Visit Diagnoses Diagnosis Rheumatoid arthritis involving multiple sites with positive rheumatoid factor (HCC) documented in this encounter Care Teams Manufacturer Relationship Specialty Start Date End Date Julisa Kerr MD [address] [place] [address] PCP - General 02/22/11 Jessica Cortes MD 651 [facility] 19 [place], [place] [id number] Internal Medicine-Rheumatology 04/26/16 Susana Garay MD [address] [place] [address] [place] [address] Medical Oncologist Internal Medicine-Hematology and Oncology 10/14/22 documented as of this encounter
--- OUTSIDE RECORDS SUMMARY | 2024-08-22 21:38 | XMS_ITS | Encounter Summary ---
Author [place] [address] Care Team Providers Care Email Designer Name Role Phone Julisa Kerr MD Primary Care Provider [phone] Jessica Cortes MD Unavailable [phone] Susana Garay MD Unavailable [phone] Encounter Details Date Type Department Care Team (Late st Contact Info) Description 10/29/2023 11:00 AM EST Telemedicine [facility] [address] [place] [address] Julisa Kerr MD 100 [place] [address] Irritable bowel syndrome with constipation and diarrhea (Primary Dx); Antiphospholipid syndrome (HCC); Immunocompromised patient (HCC); Rheumatoid arthritis involving multiple sites with positive [...] 1 Tablet by mouth nightly. 30 Tablet 2 10/29/2023 4 linaCLOtide (LINZESS) 290 mcg Oral CapsuleIndications :Irritable bowel syndrome with constipation and diarrhea Take 1 Capsule by mouth before breakfast. 90 Capsule 3 10/29/2023 4 documented in this encounter Progress Notes * Julisa Kerr MD - 10/29/2023 11:00 AM EST Patient presented today for routine care follow-up through a video visit. Patient has reviewed the terms and conditions of service as part of the registration for today's visit. A video visit does not replace a [id number] exam and further services may be necessary. We are conducting her video visit in a private space and this video visit is being conducted in accordance with state telehealth/video visit regulations. HPI: Controlled Substance Common Conditions Interval Assessment: Chronic [...] most severe, she rates the pain as 8 / 10. When the pain is the least severe, she rates the pain as 4 / 10. Functional limitations include: inability to perform tasks required for employment. She has been compliant with elements of the controlled substance contract and with recommendations outlined during last assessment. Doing well, No SE's with medication. No evidence of abuse/diversion. Pt informed and aware of medication's potential for abuse/dependence. Functional goal/goals of treatment: maintain activity Review of Systems Constitutional: Negative. HENT: Negative. Respiratory: Negative. Cardiovascular: Negative. Gastrointestinal: Negative for abdominal pain and diarrhea. Musculoskeletal: Positive for arthralgias and back pain. Skin: Negative. Psychiatric/Behavioral: Negative. Exam: Constitutional: NAD, appropriately [...] Diagnoses and all orders for this visit: Irritable bowel syndrome with constipation and diarrhea - linaCLOtide (LINZESS) 290 mcg Oral Capsule; Take 1 Capsule by mouth before breakfast. Dispense: 90 Capsule; Refill: 3 Antiphospholipid syndrome (HCC) (Chronic) stable Immunocompromised patient (HCC) (Chronic) stable Rheumatoid arthritis involving multiple sites with positive rheumatoid factor (HCC) (Chronic) - gabapentin (NEURONTIN) 600 mg Oral Tablet; Take 1 Tablet by mouth nightly. Dispense: 30 Tablet; Refill: 2 stable Acute bilateral low back pain without sciatica - gabapentin (NEURONTIN) 600 mg Oral Tablet; Take 1 Tablet by mouth nightly. Dispense: 30 Tablet; Refill: 2 Normal cologuard. Has failed fiber, laxatives, colace and miralax. documented in this encounter Plan of Treatment Upcoming Encounters Date Type Department Care Team (Late st Contact Info) Description 08/31/2024 8:30 AM EST Appointment [address] [place] [address] 10/25/2024 10:45 AM EST Office Visit [facility] [address] [place] [address] Jessica Cortes MD [address] [facility] [address] [place] [address] 01/25/2025 9:00 AM EDT Appointment [address] [place] [address] 05/09/2025 11:00 AM EDT Appointment [address] [place] [address] 05/09/2025 11:15 AM EDT Appointment [address] [place] [address] Susana Garay MD 1 [facility] [place] [address] documented as of this encounter Goals Goal Patient Goal Type Associated Problems Recent Progress Patient-Stated? Author Maintain a healthy diet, exercise regularly and maintain an ideal body weight General Porsche Ashley RN documented as of this encounter Visit Diagnoses Diagnosis Irritable bowel syndrome with constipation and diarrhea- Primary Irritable bowel syndrome Antiphospholipid syndrome (HCC) Primary hypercoagulable state Immunocompromised patient (HCC) Unspecified immunity deficiency Rheumatoid arthritis involving multiple sites with positive rheumatoid factor (HCC) Acute bilateral low back pain without sciatica documented in this encounter Discontinued Medications Medication Sig Discontinue Reason Start Date End Da te gabapentin (NEURONTIN) 600 mg Oral TabletIndications:Rheuma toid arthritis involving multiple sites with positive rheumatoid factor (HCC),Acute bilateral low back pain without sciatica Take 1 Tablet by mouth nightly. Reorder 09/18/2023 10/29/2023 documented as of this encounter Care Teams Email Designer Relationship Specialty Start Date End Date Julisa Kerr MD 100 [place] [address] PCP - General 02/22/11 Jessica Cortes MD [address] [address] Internal Medicine-Rheumatology 04/26/16 Susana Garay MD [address] [place] [address] [place] [address] Medical Oncologist Internal Medicine-Hematology and Oncology 10/14/22 documented as of this encounter
--- OUTSIDE RECORDS SUMMARY | 2024-08-22 21:38 | XMS_ITS | Encounter Summary ---
Author Organization [place] [address] Care Team Providers Care Chief Strategy Officer Name Role Phone Julisa Kerr MD Primary Care Provider [phone] Jessica Cortes MD Unavailable [phone] Susana Garay MD Unavailable [phone] Reason for Visit * Reason Comments Medication Refill Encounter Details Date Type Department Care Team (Late st Contact Info) Description 12/12/2023 Refill [facility] [address] [place] [address] Jessica Cortes MD 651 [facility] Building 19 [place] [address] Medication Refill Social History Tobacco Use Types [...] Refills Last Filled Start Date End Date golimumab (SIMPONI) 100 mg/mL SubQ Pen InjectorIndication s:Rheumatoid arthritis involving multiple sites with positive rheumatoid factor (HCC) Inject 1 pen under the skin every 30 days. 1 mL 2 07/19/2024 1:24 PM EDT 12/12/2023 08/11/2024 documented in this encounter Miscellaneous Notes * Telephone Encounter - Emerita Carter CCMA - 12/12/2023 9:53 AM EDT TB Gold- 03/24/23 VALENTIN- 10/03/23 Labs- 10/03/23 NEXT Follow up- 01/09/24 documented in this encounter Plan of Treatment Upcoming Encounters Date Type Department Care Team (Late st Contact Info) Description 08/31/2024 8:30 AM EST Appointment [address] [place] [address] 10/25/2024 10:45 AM EST Office Visit [facility] [address] [facility] [address] [place] [address] Jessica Cortes MD 651 [facility] Building 19 [place] [id number] 01/25/2025 9:00 AM EDT Appointment [facility] [address] [place] [address] 05/09/2025 11:00 AM EDT Appointment [address] [place] [address] 05/09/2025 11:15 AM EDT Appointment [address] [place] [address] Susana Garay MD [address] [place], [place] [id number] documented as of this encounter Goals Goal [...] pen under the skin every 30 days. Reorder 10/03/2023 12/12/2023 documented as of this encounter Care Teams Chief Strategy Officer Relationship Specialty Start Date End Date Julisa Kerr MD 100 [place] [address] PCP - General 02/22/11 Jessica Cortes MD [address] [facility] Building 19 [place], [place] [id number] Internal Medicine-Rheumatology 04/26/16 Susana Garay MD 1 [facility] [place] [address] Medical Oncologist Internal Medicine-Hematology and Oncology 10/14/22 documented as of this encounter
--- OUTSIDE RECORDS SUMMARY | 2024-08-22 21:38 | XMS_ITS | Encounter Summary ---
Author Organization [place] [address] Care Team Providers Care Glove Machine Operator Name Role Phone Julisa Kerr MD Primary Care Provider [phone] Jessica Cortes MD Unavailable [phone] Susana Garay MD Unavailable [phone] Reason for Visit * Reason Comments Medication Refill Encounter Details Date Type Department Care Team (Late st Contact Info) Description 11/21/2023 Refill [facility] [address] [address] Jessica Cortes MD [address] [address] Medication Refill Social History Tobacco Use [...] Refills Last Filled Start Date End Date alendronate (FOSAMAX) 70 mg Oral TabletIndications: Age-related osteoporosis without current pathological fracture TAKE 1 TABLET BY MOUTH EVERY 7 DAYS. TAKE IN THE MORNING WITH A GLASS OF WATER AND DO NOT TAKE ANYTHING ELSE BY MOUTH OR LIE DOWN FOR THE NEXT 30 MIN. 4 Tablet 2 11/21/2023 4 documented in this encounter Miscellaneous Notes * Telephone Encounter - Ana An RMA - 11/21/2023 7:53 AM EST last visit:10/03/23 last labs:10/03/23 next visit:01/09/24 chart reviewed: Current therapy: MTX 15 mg weekly, Arava 20 mg daily, Simponi 100 mg sq q month started around 02/10/22, folic acid 1 mg daily, Fosamax 70 mg weekly Fosamax 70 mg weekly started 12/09/22 Advised to take Ca/Vit D supplement documented in this encounter Plan of Treatment Upcoming Encounters Date Type Department Care Team (Late st Contact Info) Description 08/31/2024 8:30 AM EST Appointment [address] [place] [address] 10/25/2024 10:45 AM EST Office Visit [facility] [address] [place] [address] Jessica Cortes MD 6[address] [facility] Building 19 [place] [address] 01/25/2025 9:00 AM EDT Appointment [address] [address] 05/09/2025 11:00 AM EDT Appointment [address] [address] 05/09/2025 11:15 AM EDT Appointment [address] [address] Susana Garay MD [address] [place], [place] [address] documented as of this encounter Goals Goal Patient Goal Type Associated Problems Recent Progress Patient-Stated? Author Maintain a healthy diet, exercise regularly and maintain an ideal body weight General Porsche Ashley, RN documented as of this encounter Visit Diagnoses Diagnosis Age-related osteoporosis without current pathological fracture Senile osteoporosis documented in this encounter Care Teams Glove Machine Operator Relationship Specialty Start Date End Date Julisa Kerr MD 100 [place], [place] [id number] PCP - General 02/22/11 Jessica Cortes MD [address] [place] [address] Internal Medicine-Rheumatology 04/26/16 Susana Garay MD [address] [facility] [place] [address] Medical Oncologist Internal Medicine-Hematology and Oncology 10/14/22 documented as of this encounter
--- OUTSIDE RECORDS SUMMARY | 2024-08-22 21:38 | XMS_ITS | Encounter Summary ---
Author Organization [place] [address] Care Team Providers Care Legal Records Clerk Name Role Phone Julisa Kerr MD Primary Care Provider [phone] Jessica Cortes MD Unavailable [phone] Susana Garay MD Unavailable [phone] Encounter Details Date Type Department Care Team (Latest Contact Info) Description 10/03/2023 9:30 AM EST - 10/03/2023 11:59 PM EST Hospital Encounter [facility] [address] [place] [address] Therapeutic drug monitoring Discharge Disposition: [...] Dillon Mcnamara MA documented in this encounter Medications at Time of Discharge ELIQUIS 5 mg Oral TabletIndication s:Antiphospholip id syndrome (HCC),History of DVT in adulthood TAKE 1 TABLET BY MOUTH TWICE A DAY 90 Tablet 2 05/14/2023 4 hydrOXYzine (ATARAX) 25 mg Oral TabletIndication s:Itching TAKE 1 TABLET BY MOUTH THREE TIMES A DAY NEEDED 90 Tablet 2 09/02/2023 4 methotrexate sodium 25 mg/mL Inj SolutionIndicati ons:Rheumatoid arthritis involving multiple sites with positive rheumatoid factor (HCC) Subcutaneous (Inject under the skin) 0.8 mL once a week. 4 mL 1 10/03/2023 4 predniSONE (DELTASONE) 5 mg Oral TabletIndication s:Rheumatoid arthritis involving multiple sites with positive rheumatoid factor (HCC) Take 1 Tablet by mouth daily. 30 Tablet 10/03/2023 4 documented as of this encounter Discharge Disposition Disposition Code Departure Means Destination Home or Self Care documented in this encounter Plan of Treatment Upcoming Encounters Date Type Department Care Team (Late st Contact Info) Description 08/31/2024 8:30 AM EST Appointment [facility] Cancer [place] [address] [place] [address] 10/25/2024 10:45 AM EST Office Visit [facility] [address] [place] [address] Jessica Cortes MD 651 [facility] Building 19 [place] [address] 01/25/2025 9:00 AM EDT Appointment [place] [address] [place] [address] 05/09/2025 11:00 AM EDT Appointment [place] [address] [place] [address] 05/09/2025 11:15 AM EDT Appointment [place] [address] [place] [address] Susana Garay MD [address] [place] [address] documented as of this encounter Goals Goal Patient Goal Type Associated Problems Recent Progress Patient-Stated? Author Maintain a healthy diet, exercise regularly and maintain an ideal body weight General Porsche Ashley RN documented as of this encounter Procedures Procedure Name Priority Date/Time Associated Diagnosis Comments SEDIMENTATION RATE AUTOMATED Routine 10/03/2023 9:34 AM EST Therapeutic drug monitoring CBC WITH DIFF Routine 10/03/2023 9:34 AM EST Therapeutic drug monitoring C-REACTIVE PROTEIN Routine 10/03/2023 9: 34 AM EST Therapeutic drug monitoring COMPREHENSIVE METABOLIC PANEL Routine 10/03/2023 9:34 AM EST Therapeutic drug monitoring documented in this encounter Results * (ABNORMAL) COMPREHENSIVE METABOLIC PANEL (10/03/2023 9:34 AM EST) Sodium 138 136 - 145 mmol/L 10/03/2023 5:58 PM EST [facility] Potassium 3.9 3.5 - 5.0 mmol/L 10/03/2023 5:58 PM EST [facility] Chloride 99 98 - 107 mmol/L 10/03/2023 5:58 PM EST [facility] Total CO2 27 22 - 29 mmol/L 10/03/2023 5:58 PM EST [facility] Anion Gap 12 7 - 16 mmol/L 10/03/2023 5:58 PM EST [facility] Calcium 9.6 8.6 - 10.4 mg/dL 10/03/2023 5:58 PM EST [facility] Glucose Lvl 70(L) 74 - 100 mg/dL 10/03/2023 5:58 PM EST [facility] BUN 11 6 - 20 mg/dL 10/03/2023 5:58 PM EST [facility] Creatinine 0.77 0.51 - 1.30 mg/dL 10/03/2023 5:58 PM EST [facility] Albumin 3.9 3.5 - 5.2 gm/dL 10/03/2023 5:58 PM EST [facility] Total Protein 6.9 6.4 - 8.3 gm/dL 10/03/2023 5:58 PM EST [facility] Bili Total <0.2(L) 0.2 - 1.3 mg/dL 10/03/2023 5:58 PM EST [facility] ALT 20 <=41 U/L 10/03/2023 5:58 PM EST [facility] AST 17 <=40 U/L 10/03/2023 5:58 PM EST [facility] Alk Phos 116 36 - 123 U/L 10/03/2023 5:58 PM EST [facility] eGFR (CKD-EPIcr 2020) 92 >=60 mL/min/1.7 3 m2 10/03/2023 5:58 PM EST [facility] Comment:Estimated GFR was ca lculated using the CKD-EPIcr (2020) equation refit without race. The equation is recommended by the National Kidney Foundation - [place] Society of Nephrology Task Force. Blood VENOUS BLOOD / Unknown Venipuncture / Unknown 10/03/2023 9:34 AM EST 10/03/2023 9:34 AM EST us Jessica Cortes MD CHEMISTRY ORDERABLES Siobhan finnegan Result [facility] 1 [facility], [place] [address] [facility] 1 [place] [id number] * (ABNORMAL) CBC WITH DIFF (10/03/2023 9:34 AM EST) [facility] WBC 16.2(H) 3.7 - 10.3 x10(3)/mcL 10/03/2023 3:31 PM EST [facility] RBC 4.81 3.90 - 5.20 x10(6)/mcL 10/03/2023 3:31 PM EST [facility] Hgb 13.4 11.2 - 15.7 g/dL 10/03/2023 3:31 PM EST [facility] Hct 43.8 34.0 - 45.0 % 10/03/2023 3:31 PM EST [facility] MCV 91.1 80.0 - 100.0 fL 10/03/2023 3:31 PM EST [facility] MCH 27.9 26.0 - 34.0 pg 10/03/2023 3:31 PM EST [facility] MCHC 30.6(L) 30.7 - 35.5 g/dL 10/03/2023 3:31 PM EST [facility] RDW 14.1 <=14.9 % 10/03/2023 3:31 PM EST [facility] Platelet 602(H) 155 - 369 x10(3)/mcL 10/03/2023 3:31 PM EST [facility] MPV 9.8 8.8 - 12.5 fL 10/03/2023 3:31 PM EST [facility] Segs 70 % 10/03/2023 3:31 PM EST [facility] Lymphs 17 % 10/03/2023 3:31 PM EST [facility] Monos 11 % 10/03/2023 3:31 PM EST [facility] Eos 0 % 10/03/2023 3:31 PM EST [facility] Baso 0 % 10/03/2023 3:31 PM EST [facility] Promyelo % 3 % 10/03/2023 3:31 PM EST [facility] Atyp Lymph 0 <=10 % 10/03/2023 3:31 PM EST [facility] Neut # 11.3(H) 1.6 - 6.1 x10(3)/mcL 10/03/2023 3:31 PM EST [facility] Lymph # 2.7 1.2 - 3.9 x10(3)/mcL 10/03/2023 3:31 PM EST [facility] Pondera # 1.7(H) 0.3 - 0.9 x10(3)/mcL 10/03/2023 3:31 PM EST [facility] Eos # Manual 0.0 0.0 - 0.5 x10(3)/mcL 10/03/2023 3:31 PM EST [facility] Baso # Manual 0.0 0.0 - 0.1 x10(3)/mcL 10/03/2023 3:31 PM EST [facility] Promyelo # 0.4 x10(3)/mcL 10/03/2023 3:31 PM EST [facility] Stomatocyte Occasional 10/03/2023 3:31 PM EST [facility] Blood VENOUS BLOOD / Unknown Venipuncture / Unknown 10/03/2023 9:34 AM EST 10/03/2023 9:34 AM EST us Jessica Cortes MD HEMATOLOGY ORDERABLES Fin al Result [facility] 1 [facility] , [place] [address] * (ABNORMAL) C-REACTIVE PROTEIN (10/03/2023 9:34 AM EST) CRP 9.40(H) <=5.00 mg/L 10/03/2023 5:57 PM EST [facility] Blood VENOUS BLOOD / Unknown Venipuncture / Unknown 10/03/2023 9:34 AM EST 10/03/2023 9:34 AM EST Jessica Cortes MD CHEMISTRY ORDERABLES Siobhan l Result Performing Organization Address City/[facility]/ZIP Co de Phone Number PREFERRED [employer] [address] [facility] , [place] [address] * SEDIMENTATION RATE AUTOMATED (10/03/2023 9:34 AM EST) Sed Rate 26 0 - 30 mm/hr 10/03/2023 3:13 PM EST [facility] Blood VENOUS BLOOD / Unknown Venipuncture / Unknown 10/03/2023 9:34 AM EST 10/03/2023 9:34 AM EST Jessica Cortes MD HEMATOLOGY ORDERABLES Fin al Result Performing Organization Address City/[facility]/ZIP Co de Phone Number [facility] [address] [place] [address] documented in this encounter Visit Diagnoses Diagnosis Therapeutic drug monitoring Encounter for therapeutic drug monitoring documented in this encounter Care Teams Legal Records Clerk Relationship Specialty Start Date End Date Julisa Kerr MD 100 [place] [address] PCP - General 02/22/11 Jessica Cortes MD [address] [place] [address] [address] [place] [phone] Internal Medicine-Rheumatology 04/26/16 Susana Garay MD 1 [place] [id number] Medical Oncologist Internal Medicine-Hematology and Oncology 10/14/22 documented as of this encounter
--- OUTSIDE RECORDS SUMMARY | 2024-08-22 21:38 | XMS_ITS | Encounter Summary ---
Author [place] [address] Care Team Providers Care Box Stamper Name Role Phone Julisa Kerr MD Primary Care Provider [phone] Jessica Cortes MD Unavailable [phone] Susana Garay MD Unavailable [phone] Reason for Visit * Reason Comments Medication Refill Encounter Details Date Type Department Care Team (Late st Contact Info) Description 12/06/2023 Refill [facility] [address] [facility] [address] [place] [address] Jessica Cortes MD 651 [facility] Building 19 [place] [address] Medication Refill Social History Tobacco Use Types [...] MOUTH TWICE A DAY 60 Tablet 12/08/2023 01/06/2024 documented in this encounter Miscellaneous Notes * Telephone Encounter - Ana An RMA - 12/08/2023 11:34 AM EDT last visit:10/03/23 last labs:10/03/23- due now; message sent next visit:01/09/24 chart reviewed: Arava increased to 20 mg daily 06/20/23 Diclofenac 75 mg BID Therapeutic drug monitoring Tuberculosis screening TB gold negative 03/24/23 Labs every 6-8 weeks while on MTX and Arava to monitor for toxicities. Labs OK 08/13/23. Labs from today pending documented in this encounter Plan of Treatment Upcoming Encounters Date Type Department Care Team (Late st Contact Info) Description 08/31/2024 8:30 AM EST Appointment [place] [address] [place] [address] 10/25/2024 10:45 AM EST Office Visit [facility] [address] [place] [address] Jessica Cortes MD [address] [place] [address] 01/25/2025 9:00 AM EDT Appointment [address] [place] [address] 05/09/2025 11:00 AM EDT Appointment [address] [place] [address] 05/09/2025 11:15 AM EDT Appointment [address] [place] [address] Susana Garay MD [address] [place] [address] [place] [address] documented as of this encounter Goals Goal [...] (VOLTAREN) 75 mg Oral Tablet, Delayed Release (E.C.)Indications:Rheuma toid arthritis involving multiple sites with positive rheumatoid factor (HCC) TAKE 1 TABLET BY MOUTH TWICE A DAY 10/07/2023 12/08/2023 documented as of this encounter Care Teams Box Stamper Relationship Specialty Start Date End Date Julisa Kerr MD 100 [place] [id number] PCP - General 02/22/11 Jessica Cortes MD 651 [facility] 19 [place] [address] Internal Medicine-Rheumatology 04/26/16 Susana Garay MD 1 [place] [address] Medical Oncologist Internal Medicine-Hematology and Oncology 10/14/22 documented as of this encounter
--- OUTSIDE RECORDS SUMMARY | 2024-08-22 21:38 | XMS_ITS | Encounter Summary ---
Author Organization [facility] [place] [address] Care Team Providers Care Editor School Photograph Name Role Phone Julisa Kerr MD Primary Care Provider [phone] Jessica Cortes MD Unavailable [phone] Susana Garay MD Unavailable [phone] Encounter Details Date Type Department Care Team (Latest Contact Info) Description 10/29/2023 Travel Social History Tobacco Use Types Packs/Day [...] Info) Description 08/31/2024 8:30 AM EST Appointment [address] [place] [address] 10/25/2024 10:45 AM EST Office Visit [facility] [address] [place] [address] Jessica Cortes MD [address] [place] [address] 01/25/2025 9:00 AM EDT [address]ointment [address] [place] [address] 05/09/2025 11:00 AM EDT [address]ointment [address] [place] [address] 05/09/2025 11:15 AM EDT [address]ointment [address] [place] [address] Susana Garay MD [address] [place] [address] [place] [address] documented as of this encounter Goals Goal Patient Goal Type Associated Problems Recent Progress Patient-Stated? 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, RN documented as of this encounter Visit Diagnoses Not on filedocumented in this encounter Care Teams Editor School Photograph Relationship Specialty Start Date End Date Julisa Kerr MD 100 [place] [address] PCP - General 02/22/11 Jessica Cortes MD [address] [address] Internal Medicine-Rheumatology 04/26/16 Susana Garay MD [address] [place] [address] Medical Oncologist Internal Medicine-Hematology and Oncology 10/14/22 documented as of this encounter
--- OUTSIDE RECORDS SUMMARY | 2024-08-22 21:38 | XMS_ITS | Encounter Summary ---
Author [place] [address] Care Team Providers Care Solutions Executive Security Name Role Phone Julisa Kerr MD Primary Care Provider [phone] Jessica Cortes MD Unavailable [phone] Susana Garay MD Unavailable [phone] Reason for Visit * Reason Comments Pharmacy Rheumatology Management Simponi Encounter Details Date Type Department Care Team (Latest Contact Info) Description 12/12/2023 Specialty Pharmacy [facility] [address] [phone] Jacey Miller CPhT Pharmacy Rheumatology Management (Simponi) Social History [...] documented in this encounter Progress Notes * Jacey Miller CPhT - 12/12/2023 9:51 AM EDT [facility] Refill Request Prescription for Simponi is out of refills. Will send a request to the provider and contact patientto coordinate refill once response is received. * Lauren Ledesma RPH - 12/12/2023 9:51 AM EDT [facility] Refill authorization received. Will contact patient to coordinate refill. * Jacey Miller CPhT - 12/12/2023 9:51 AM EDT [facility] Refill too soon until 12/26/23. * Priti Valentine CPhT - 12/12/2023 9:51 AM EDT Specialty Pharmacy Refill Coordination Note Contacted Yuliet Trevino today regarding refills of Simponi. Copay amount: $0 Sent GTX Messaging message. Patient informed of copay. * Angela Fournier CPhT - 12/12/2023 9:51 AM EDT Specialty Pharmacy Refill Coordination Note Contacted Yuliet Trevino today regarding refills of Simponi. Medication to be delivered by [facility] on 01/07. Copay amount: $0 Sent GTX Messaging message. Patient informed of copay. documented in this encounter Plan of Treatment Upcoming Encounters Date Type Department Care Team (Late st Contact Info) Description 08/31/2024 8:30 AM EST Appointment [address] [place] [address] 10/25/2024 10:45 AM EST Office Visit [facility] [address] [place] [address] Jessica Cortes MD [address] [facility] Building [address] [place] [address] 01/25/2025 9:00 AM EDT Appointment [address] [address] [place] [address] 05/09/2025 11:00 AM EDT Appointment [address] [address] [place] [address] 05/09/2025 11:15 AM EDT Appointment [address] [place] [address] Susana Garay MD [address] [place] [address] [place] [address] documented as of this encounter Goals Goal Patient Goal Type Associated Problems Recent Progress Patient-Stated? Author Maintain a healthy diet, exercise regularly and maintain an ideal body weight General Porsche Ashley, RN documented as of this encounter Visit Diagnoses Not on filedocumented in this encounter Care Teams Solutions Executive Security Relationship Specialty Start Date End Date Julisa Kerr MD [address] [place], [place] [id number] PCP - General 02/22/11 Jessica Cortes MD [address] [address] Internal Medicine-Rheumatology 04/26/16 Susana Garay MD [address] [place] [address] Medical Oncologist Internal Medicine-Hematology and Oncology 10/14/22 documented as of this encounter
--- OUTSIDE RECORDS SUMMARY | 2024-08-22 21:38 | XMS_ITS | Encounter Summary ---
Author Organization [place] [address] Care Team Providers Care Android Programmer Name Role Phone Julisa Kerr MD Primary Care Provider [phone] Jessica Cortes MD Unavailable [phone] Susana Garay MD Unavailable [phone] Reason for Visit * Reason Comments Medication Refill Encounter Details Date Type Department Care Team (Late st Contact Info) Description 11/25/2023 Refill [facility] Rheumatology [facility] [address] [address] Jessica Cortes MD [address] [address] Medication Refill Social History Tobacco [...] Dillon Mcnamara MA documented in this encounter Miscellaneous Notes * Telephone Encounter - Ana An RMA - 11/25/2023 11:04 AM EST refills last sent 11/21/23; too soon to refill at this time documented in this encounter Plan of Treatment Upcoming Encounters Date Type Department Care Team (Late st Contact Info) Description 08/31/2024 8:30 AM EST Appointment [facility] [address] [place] [address] 10/25/2024 10:45 AM EST Office Visit [facility] [address] [facility] [address] [place] [address] Jessica Cortes MD [address] [facility] Building [address] [place] [address] 01/25/2025 9:00 AM EDT Appointment [address] [address] [place] [address] 05/09/2025 11:00 AM EDT Appointment [address] [place] [address] 05/09/2025 11:15 AM EDT Appointment [address] [address] [place] [address] Susana Garay MD [address] [place] [address] documented as of this encounter Goals Goal Patient Goal Type Associated Problems Recent Progress Patient-Stated? Author Maintain a healthy diet, exercise regularly and maintain an ideal body weight General Porsche Ashley RN documented as of this encounter Visit Diagnoses Diagnosis Age-related osteoporosis without current pathological fracture Senile osteoporosis documented in this encounter Care Teams Android Programmer Relationship Specialty Start Date End Date Julisa Kerr MD [address] [place] [address] PCP - General 02/22/11 Jessica Cortes MD [address] [place] [address] Internal Medicine-Rheumatology 04/26/16 Susana Garay MD [address] [place] [address] Medical Oncologist Internal Medicine-Hematology and Oncology 10/14/22 documented as of this encounter
--- OUTSIDE RECORDS SUMMARY | 2024-08-22 21:38 | XMS_ITS | Encounter Summary ---
Author Organization [place] [address] Care Team Providers Care Endocrinology Nurse Name Role Phone Julisa Kerr MD Primary Care Provider [phone] Jessica Cortes MD Unavailable [phone] Susana Garay MD Unavailable [phone] Reason for Visit * Reason Comments Medication Refill Encounter Details Date Type Department Care Team (Late st Contact Info) Description 01/06/2024 Refill [facility] [address] [facility] [address] [place] [address] Jessica Cortes MD 651 [facility] [address] [place] [address] Medication Refill Social History Tobacco Use Types [...] BY MOUTH TWICE A DAY 60 Tablet 01/06/2024 01/09/2024 documented in this encounter Miscellaneous Notes * Telephone Encounter - Emerita Carter CCMA - 01/06/2024 8:20 AM EDT Neck pain x rays revealed mild degenerative changes, no evidence of atlanto axial disease MRI of the C spine 01/23/19 revealed degenerative disc changes at the C5-C6 and C6-C7 levels, no high-grade foraminal stenosis or neural canal stenosis. PT worsened the symptoms Evaluated by ortho, s/p RFA's, those helped, last one not that effective Regular stretches, heat, ice, massage Diclofenac 75 mg BID VALENTIN- 10/03/23 Labs- 12/15/23 NEXT Follow up- 01/09/24 documented in this encounter Plan of Treatment Upcoming Encounters Date Type Department Care Team (Late st Contact Info) Description 08/31/2024 8:30 AM EST Appointment [address] [place] [address] 10/25/2024 10:45 AM EST Office Visit [facility] [address] [place] [address] Jessica Cortes MD [address] [place] [address] 01/25/2025 9:00 AM EDT Appointment [address] [place] [address] 05/09/2025 11:00 AM EDT Appointment [address] [place] [address] 05/09/2025 11:15 AM EDT Appointment [address] [place] [address] Susana Garay MD [address] [place] [address] [place] [address] documented as of this encounter Goals Goal [...] 1 TABLET BY MOUTH TWICE A DAY 12/08/2023 01/06/2024 documented as of this encounter Care Teams Endocrinology Nurse Relationship Specialty Start Date End Date Julisa Kerr MD [address] [phone] PCP - General 02/22/11 Jessica Cortes MD [address] [facility] 19 [place] [address] Internal Medicine-Rheumatology 04/26/16 Susana Garay MD 1 [place] [address] Medical Oncologist Internal Medicine-Hematology and Oncology 10/14/22 documented as of this encounter
--- OUTSIDE RECORDS SUMMARY | 2024-08-22 21:38 | XMS_ITS | Encounter Summary ---
Author Organization [facility] Address [address] [place] [address] Care Team Providers Care Karate Black Belt Name Role Phone Julisa Kerr MD Primary Care Provider [phone] Jessica Cortes MD Unavailable [phone] Susana Garay MD Unavailable [phone] Reason for Referral * Surgical (Routine) - AFF Authorization Not Needed Specialty Diagnoses / Procedures Referred By Contac t Referred To Contact Diagnoses Primary osteoarthritis of left hip Procedures AMB OC SURGERY COMMUNICATION ORDER Jame Webb PA-C [address] [place] [address] Phone: tel: fax: Referral ID Status Reason Start Date Expiration Date Visits Requested Visits Authorized [id number] AFF Authorization Not Needed 12/24/2023 12/23/2024 1 1 * Physical Therapy (Routine) - Authorized Specialty Diagnoses / Procedures Referred By Contac t Referred To Contact Physical Therapist / Physical Therapy Diagnoses Primary osteoarthritis of left hip Jame Webb PA-C [address] [place] [address] Phone: tel: fax: Rae Caro, PT [address] [place] [address] Phone: tel: fax: Referral ID Status Reason Start Date Expiration Date V isits Requested Visits Authorized [id number] Authorized 12/24/2023 12/23/2024 1 20 Question Answer surgical procedure Total Hip Arthroplasty Evaluate and Treat Yes Select as appropriate Evaluate and treat appropriately Modalities/Procedures As Indicated Therapeutic Exercise As Indicated Goals: Decrease pain and swelling, Increase function, Increase strength, Increase ROM Additional instructions: Frequency and duration per therapist discretion Reason for Visit * Reason Comments Pain Encounter Details Date Type Department Care Team (Latest Contact Info) Description 12/24/2023 11:00 AM EDT Office Visit [facility] [place] [address] Jame Webb PA-C [address] [place] [address] Primary osteoarthritis of left hip (Primary Dx) Social History Tobacco Use Types [...] Progress Notes * Jame Webb PA-C - 12/24/2023 11:00 AM EDT Images from the original note were not included. [address] [phone] [place], [place] [phone] [place], [place] Yuliet Trevino 1970 Chief Complaint Patient presents with Left Hip - Pain Subjective: uYliet Trevino is a 53 y.o. female presenting for evaluation of left hip Hx of right total knee arthroplasty 08/22/[address] Clifton, doing well Patient reports chronic history of left hip pain. She feels is becoming progressively more severe over the last several months. She denies any specific fall injury or trauma. She localizes pain to the left groin in a C-shaped pattern around her hip. She describes it as a constant ache that becomes i ntermittently sharp with lower extremity rotation, lifting her leg, or long periods of activity. She does have a history of rheumatoid arthritis for which she is seen by Dr. Cortes. She has been trying to manage chronic pain with gabapentin, diclofenac, Simponi, and methotrexate. Patient is alsoon Eliquis. Symptoms improve with rest, ice, OTC NSAIDs. The symptoms are worse with activity such as walking, exercising, kneeling, and squatting. Treatment to date has been without significant relief. At this point, the patient describes having significant pain. The pain is more than just a nuisance; it is affecting the patient's quality of life. Going up and down stairs, standing for long periodsof time, and walking long distances are difficult. Rest, ice, anti-inflammatory medications and assisted devices have been tried. None of this has really solved the problem. Non-Smoker Activity modification without relief BMI of 24.62 Social History Substance and Sexual Activity Drug Use No Social History Tobacco Use Smoking Status Never Smokeless Tobacco Never Objective: Review of Systems Constitutional: Negative. Respiratory: Negative. Cardiovascular: Negative. Gastrointestinal: Negative. Musculoskeletal: Positive for joint pain. Skin: Negative. There is no height or weight on file to calculate BMI. On physical examination the patient is alert [...] rate is normal by peripheral pulse examination. Right Hip Exam Comments: Examination of the hip shows that there is a heel-toe reciprocating gait pattern without evidence of antalgia. Forced internal and external rotation of the hip in 90 degrees of flexion is supple and benign. Log-roll is normal. Stinchfield testing is normal. No tenderness to palpation overthe trochanteric bursa. FADIR testing is normal. FARHAT testing is normal. The skin is intact. Normal lateral femoral cutaneous nerve sensation. Left Hip Exam Comments: Examination of the left hip shows the patient has evidence of antalgia with their gait pattern today. Forced internal and external rotation of the hip causes a deep-seated hip pain. Limitedinternal and external rotation. Abnormal Stinchfield testing. Normal log-roll testing. No tenderness over the trochanteric bursa. Imaging: X-rays reviewed today of the left hip show osteoarthritic degenerative change with joint space narrowing, and osteophyte formation. Shows Kelgren grade 3 changes. There are no acute findings noted inthese films. Assessment and Plan: Diagnoses and all orders for this visit: Primary osteoarthritis of left hip - AMB REFERRAL TO PHYSICAL THERAPY - AMB OC SURGERY COMMUNICATION ORDER PLAN: Discussed treatment options Discussed possible injection but she would like to hold off. Patient would likely benefit from surgical intervention. We will proceed with a left total hip arthroplasty. Based on the patient's clinical presentation and review of imaging, they are recommended to continue conservative management. However, given the fact the patient has failed multiple conservative therapies as outlined in office notes, they would benefit from joint replacement. In addition, the patient reports a decrease in their quality of life and ability to perform activities of daily living dueto their ongoing pain. Therefore, the patient will be scheduled for a left total hip arthroplasty. They will be scheduled at their convenience for surgery. I have discussed today in detail with the patient and/or family members the risks, benefits and alternatives of surgical intervention. The risks include, but are not limited to risks of bleeding, infection, damage to blood vessels and nerves and the need for further surgical intervention, failure of implants, failure of bony healing, anesthesia problems, leg length discrepancy, dislocation, loosejoint, stiff joint, blood clots, and other, including things that are not predictable. In spite of these risks and understanding the most common outcomes after this type of surgical procedure, the patient and family stated that they wish to proceed. Consent will be signed. We will make efforts to accommodate at the earliest convenience. A preoperative discussion was conducted today. We have discussed pertinent pre- operative medications and given some instruction on which blood thinners and other medicines to hold prior to the operation. We have discussed safe discharge from the hospital. All questions were answered. We will plan to see the patient back for a 2-week post operative visit. The patient was agreeable to the plan and all questions were answered. DME Summary No orders found for display Pre OP Cefazolin Prineo History RA and antiphospholipid syndrome. Right DVT , prescribed Eliquis. 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 No hx of urinary retention No GERD [facility] for PT Has a Walker Family/friends can help at home Medical considerations: Will need a stress dose of steroids Consider Decadron 6mg Q day for 7 days post op as well. Simponi, and Arava. May need to hold, but will ask Rheumatology to assist. documented in this encounter Plan of Treatment Upcoming Encounters Date Type Department Care Team (Late st Contact Info) Description 08/31/2024 8:30 AM EST Appointment [address] [address] [place] [address] 10/25/2024 10:45 AM EST Office Visit [facility] [address] [place] [address] Jessica Cortes MD [address] [facility] [address] [place] [address] 01/25/2025 9:00 AM EDT Appointment [address] [place] [address] 05/09/2025 11:00 AM EDT Appointment [address] [place] [place] [address] 05/09/2025 11:15 AM EDT Appointment [address] [place] [address] Susana Garay MD [address] [place] [address] Scheduled Referrals Name Type Priority Associated Diagnoses [...] as of this encounter Visit Diagnoses Diagnosis Primary osteoarthritis of left hip- Primary Primary localized osteoarthrosis, pelvic region and thigh documented in this encounter Orders Nursing Count Last Ordered Date First Orde red Date AMB OC SURGERY COMMUNICATION ORDER 1 2023 documented in this encounter Care Teams Karate Black Belt Relationship Specialty Start Date End Date Julisa Kerr MD [address] [place] [address] PCP - General 02/22/11 Jessica Cortes MD 651 [facility] [address] [place] [address] Internal Medicine-Rheumatology 04/26/16 Susana Garay MD [address] [facility] [address] Medical Oncologist Internal Medicine-Hematology and Oncology 10/14/22 documented as of this encounter
--- OUTSIDE RECORDS SUMMARY | 2024-08-22 21:38 | XMS_ITS | Encounter Summary ---
Author Organization [place] [address] Care Team Providers Care Train Station Server Name Role Phone Julisa Kerr MD Primary Care Provider [phone] Jessica Cortes MD Unavailable [phone] Susana Garay MD Unavailable [phone] Reason for Visit * Reason Comments Medication Refill Encounter Details Date Type Department Care Team (Late st Contact Info) Description 12/23/2023 Refill [facility] [address] [place] [address] Jessica Cortes MD 651 [facility] [address] [place] [address] Medication Refill Social History Tobacco Use Types [...] 3:24 PM EDT Luciano Kenney MATTHEWCarlene * Is the person blind or does [...] 3:24 PM EDT Luciano Kenney MATTHEWCarlene documented as of this encounter Mental Status * Because of a physical, mental or emotional condition, does this person have serious difficulty concentrating, remembering or making decisions? Answer Entry Date Author No 12/08/2023 3:24 PM EDT Luciano Kenney MATTHEWCarlene documented in this encounter Ordered Prescriptions Prescription Sig Dispense Quantity Refills Last Filled Start Date End Date methotrexate sodium 25 mg/mL Inj SolutionIndicatio ns:R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 4 mL 1 12/23/2023 documented in this encounter Miscellaneous Notes * Telephone Encounter - Ana An RMA - 12/23/2023 10:30 AM EDT last visit:10/03/23 last labs:12/15/23 next visit:01/09/24 chart reviewed: Continue MTX 15 mg weekly. documented in this encounter Plan of Treatment Upcoming Encounters Date Type Department Care Team (Late st Contact Info) Description 08/31/2024 8:30 AM EST Appointment [address] [place] [address] 10/25/2024 10:45 AM EST Office Visit [facility] [address] [facility] [address] [place] [address] Jessica Cortes MD 651 [facility] [address] [place] [address] 01/25/2025 9:00 AM EDT Appointment [address] [address] [place] [address] 05/09/2025 11:00 AM EDT Appointment [address] [place] [address] 05/09/2025 11:15 AM EDT [address]ointment [address] [place] [address] Susana Garay MD [address] [place], [place] [id number] documented as of this encounter Goals Goal [...] the skin) 0.8 mL once a week. 10/03/2023 12/23/2023 documented as of this encounter Care Teams Train Station Server Relationship Specialty Start Date End Date Julisa Kerr MD [address] [place] [address] PCP - General 02/22/11 Jessica Cortes MD 651 [facility] 19 [place] [address] Internal Medicine-Rheumatology 04/26/16 Susana Garay MD [address] [facility] [place] [address] Medical Oncologist Internal Medicine-Hematology and Oncology 10/14/22 documented as of this encounter
--- OUTSIDE RECORDS SUMMARY | 2024-08-22 21:38 | XMS_ITS | Encounter Summary ---
Author Organization [place] [address] Care Team Providers Care Civil Engineering Professional Name Role Phone Julisa Kerr MD Primary Care Provider [phone] Jessica Cortes MD Unavailable [phone] Susana Garay MD Unavailable [phone] Encounter Details Date Type Department Care Team (Latest Contact Info) Description 10/27/2023 1:00 PM EST - 10/27/2023 11:[address] [facility] Hospital Encounter GRT XRAY [address] [facility] [place] [address] Trochanteric bursitis of left hip Discharge Disposition: Home or Self Care Social [...] TWICE A DAY 60 Tablet 1 10/07/2023 4 hydrOXYzine (ATARAX) 25 mg Oral TabletIndication [...] Info) Description 08/31/2024 8:30 AM EST Appointment [facility] [address] [address] [place] [address] 10/25/2024 10:45 AM EST Office Visit [facility] [address] [place] [address] Jessica Cortes MD [address] [place] [address] 01/25/2025 9:00 AM EDT Appointment [address] [address] [place] [address] 05/09/2025 11:00 AM EDT Appointment [address] [address] [place] [address] 05/09/2025 11:15 AM EDT Appointment [address] [address] [place] [address] Susana Garay MD [address] [place] [address] [place] [address] documented as of this encounter Goals Goal Patient Goal Type Associated Problems Recent Progress Patient-Stated? 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 RN documented as of this encounter Procedures Procedure Name Priority Date/Time Associated Diagnosis Comments XR HIP LEFT AP LATERAL W AP PELVIS Routine 10/27/2023 1:28 PM EST Trochanteric bursitis of left hip documented in this encounter Results * XR HIP LEFT AP LATERAL W AP PELVIS (10/27/2023 1:28 PM EST) Anatomical Region Laterality Modality Hip Radiographic Fallon ging 10/27/2023 1:28 PM EST Impressions 10/27/2023 2:14 PM EST Mild to moderate degenerative changes of left hip, increased since 2018. - Note: Radiology results need to be interpreted within a comprehensive clinical context. ??If you have questions about the radiology report, please contact the office of the ordering clinician. Narrative 10/27/2023 2:14 PM EST XR HIP LEFT AP LATERAL W AP PELVIS, ??10/27/2023 1:28 PM CLINICAL HISTORY: ??M70.62-Trochanteric bursitis, left [id number] COMPARISON: ??05/08/2018 PROCEDURE COMMENTS: ??AP view of the pelvis with AP and frog-leg views of the hip. FINDINGS: Mild to moderate left hip osteoarthritis with moderate joint space narrowing and osteophyte formation around the femoral head. Minimal right hip joint space narrowing. Since prior exam there has been worsening of degenerative change. Degenerative changes of the SI joints. No acute fracture. Procedure Note Edwin Carey MD - 10/27/2023 XR HIP LEFT AP LATERAL W AP PELVIS, 10/27/2023 1:28 PM CLINICAL HISTORY: M70.62-Trochanteric bursitis, left [id number] COMPARISON: 05/08/2018 PROCEDURE COMMENTS: AP view of the pelvis with AP and frog-leg views ofthe hip. FINDINGS: Mild to moderate left hip osteoarthritis with moderate joint spacenarrowing and osteophyte formation around the femoral head. Minimal right hip jointspace narrowing. Since prior exam there has been worsening of degenerativechange. Degenerative changes of the SI joints. No acute fracture. IMPRESSION: Mild to moderate degenerative changes of left hip, increased since 2018. - Note: Radiology results need to be interpreted within a comprehensiveclinical context. If you have questions about the radiology report, please contactthe office of the ordering clinician. Jessica Cortes MD IMG DIAGNOSTIC IMAGING OR DERABLES Final Result documented in this encounter Visit Diagnoses Diagnosis Trochanteric bursitis of left hip Enthesopathy of hip region documented in this encounter Care Teams Civil Engineering Professional Relationship Specialty Start Date End Date Julisa Kerr MD [address] [place] [address] PCP - General 02/22/11 Jessica Cortes MD [address] [place] [address] Internal Medicine-Rheumatology 04/26/16 Susana Garay MD [address] [place] [address] Medical Oncologist Internal Medicine-Hematology and Oncology 10/14/22 documented as of this encounter
--- OUTSIDE RECORDS SUMMARY | 2024-08-22 21:38 | XMS_ITS | Encounter Summary ---
Author Organization [place] [address] Care Team Providers Care Torque Tester Name Role Phone Julisa Kerr MD Primary Care Provider [phone] Jessica Cortes MD Unavailable [phone] Susana Garay MD Unavailable [phone] Reason for Visit * Reason Comments Pharmacy Rheumatology Management [facility] Encounter Details Date Type Department Care Team (Latest Contact Info) Description 10/06/2023 Specialty Pharmacy [facility] [id number] Porsche Joyce CPhT Pharmacy Rheumatology Management ([facility]) [...] Dillon Mcnamara MA documented in this encounter Progress Notes * Porsche Joyce CPhT - 10/06/2023 9:59 AM EST [facility] requires PA. Will route to have it submitted. * Jaxon Noel RP - 10/06/2023 9:59 AM EST Specialty Pharmacy - Rheumatology Clinical Review Yuliet Trevino is a 52 y.o. female. Rheumatology: Patient was prescribed golimumab (Simponi) 100mg SUBQ every 30 day(s) for continuation of therapy for Rheumatoid arthritis (M05.79). Allergies Allergen Reactions Orencia [Abatacept (With Maltose)] Swelling and Other (See Comments) Facial tingling/ numbness Abatacept Other (See Comments) Cefdinir Other (See Comments) Bad abdominal cramping Celecoxib Other (See Comments) Enbrel [Etanercept] Itching Humira [Adalimumab] Itching Infliximab Other (See Comments) Pustule pimples itching Mobic [Meloxicam] Hives Tocilizumab Other (See Comments) Xeljanz [Tofacitinib] Itching Risk/ Status: Hysterectomy Test: No results found for: PREGTESTUR Lab Results Component Value Date QUANTIFERON Negative 03/24/2023 HEPBSAG Negative 04/22/2016 HEPBIGM Negative 04/22/2016 HEPCAB Negative 04/22/2016 Lab Results Component Value Date WBC 16.2 (H) 10/03/2023 RBC 4.81 10/03/2023 HGB 13.4 10/03/2023 HCT 43.8 10/03/2023 MCV 91.1 10/03/2023 MCH 27.9 10/03/2023 MCHC 30.6 (L) 10/03/2023 RDW 14.1 10/03/2023 PLT 602 (H) 10/03/2023 MPV 9.8 10/03/2023 IMMGRAN 0.9 08/13/2023 LYMPHOPCT 8.7 08/13/2023 MONOPCT 11 10/03/2023 EOSPCT 1.1 08/13/2023 NEUTROABS 11.2 (H) 08/13/2023 IMMGRANABS 0.1 08/13/2023 MONOSABS 1.7 (H) 08/13/2023 EOSABS 0.2 08/13/2023 BASOABS 0.1 08/13/2023 Lab Results Component Value Date CREATININE 0.77 10/03/2023 BUN 11 10/03/2023 AST 17 10/03/2023 ALT 20 10/03/2023 Current Outpatient Medications Medication Sig azithromycin Take 2 tablets (500 mg) on Day 1, followed by 1 tablet (250 mg) once daily on Days 2 through 5. Eliquis TAKE 1 TABLET BY MOUTH TWICE A DAY fUROsemide TAKE 1 TABLET BY MOUTH EVERY DAY NEEDED gabapentin Take 1 Tablet by mouth nightly. Simponi Inject 1 pen under the skin every 30 days. hydrOXYzine TAKE 1 TABLET BY MOUTH THREE TIMES A DAY NEEDED leflunomide Take 1 Tablet by mouth daily. methotrexate sodium Subcutaneous (Inject under the skin) 0.8 mL once a week. oxyCODONE Take 1 Tablet by mouth 2 times daily. oxyCODONE-acetaminophen Take 1 Tablet by mouth every 6 hours as needed for Acute Pain > 3 Days Medically Necessary (R52). predniSONE Take 1 Tablet by mouth daily. Previous medications utilized: abatacept (Orencia), adalimumab (Humira), etanercept (Enbrel), golimumab (Simponi), infliximab, sarilumab (Kevzara), tocilizumab (Actemra), tofacitinib (Xeljanz), methotrexate (Trexall), hydroxychloroquine (Plaquenil), and leflunomide (Arava) Medication being used with prescribed meds: MTX, Leflunomide RAPID-3 score: 17.8 on 10/03/23 Will medication be used with another biologic or targeted synthetic DMARD? No Clinical Impression: Clinically appropriate continuation of therapy Jaxon Noel RPH Specialty Pharmacist * Mikaela Forbes CPhT - 10/06/2023 9:59 AM EST [facility] Prior Authorization Submitted PA for Simponi to [employer] insurance via [employer] ([employer] [id number]). Will follow up on 10/08/23. * Mikaela Forbes CPhT - 10/06/2023 9:59 AM EST [facility] Prior Authorization Determination Received notice of PA approval for Simponi. PA approved from 10/06/23 to 04/04/24. Patient is able to fill at [facility]. Copay is $0. Sent [employer] message. Initial assessment has been performed by pharmacist prior to therapy initiation. Medication is able to be delivered via [employer]. * Xavier García CPhT - 10/06/2023 9:59 AM EST Specialty Pharmacy Refill Coordination Note Pt requested via web Contacted Yuliet Trevino today regarding refills of Simponi. Medication to be delivered by [employer] on 10/15. Sent [employer] message. * Angel Maurice RPH - 10/06/2023 9:59 AM EST [facility] - Care Plan and Refill Review Patient is not clinically followed.. Angel Maurice [facility] Specialty Pharmacist documented in this encounter Plan of Treatment Upcoming Encounters Date Type Department Care Team (Late st Contact Info) Description 08/31/2024 8:30 AM EST Appointment [address] [address] [address] [place] [address] 10/25/2024 10:45 AM EST Office Visit [facility] [address] [place] [address] Jessica Cortes MD [address] [place] [address] 01/25/2025 9:00 AM EDT [address]ment [address] [place] [address] 05/09/2025 11:00 AM EDT [address]ment [address] [place] [address] 05/09/2025 11:15 AM EDT [address]ointment [address] [place] [address] Susana Garay MD [address] [place] [address] [place] [address] documented as of this encounter Goals Goal Patient Goal Type Associated Problems Recent Progress Patient-Stated? 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 RN documented as of this encounter Visit Diagnoses Not on filedocumented in this encounter Care Teams Torque Tester Relationship Specialty Start Date End Date Julisa Kerr MD [address] [place] [address] PCP - General 02/22/11 Jessica Cortes MD [address] [facility] [address] [place] [address] Internal Medicine-Rheumatology 04/26/16 Susana Garay MD [address] [place] [address] Medical Oncologist Internal Medicine-Hematology and Oncology 10/14/22 documented as of this encounter
--- OUTSIDE RECORDS SUMMARY | 2024-08-22 21:38 | XMS_ITS | Encounter Summary ---
Author Organization [facility] Address [address] [place] [address] Care Team Providers Care Supervisor Engine Assembly Name Role Phone Julisa Kerr MD Primary Care Provider [phone] Jessica Cortes MD Unavailable [phone] Susana Garay MD Unavailable [phone] Reason for Visit * Reason Comments Follow-up Encounter Details Date Type Department Care Team (Late st Contact Info) Description 10/03/2023 3:30 PM EST Office Visit [facility] [address] [address] Brianna Rubalcava NP [address] [place] [address] S/P total knee arthroplasty, right (Primary Dx) Social History Tobacco Use Types [...] documented in this encounter Progress Notes * Brianna Rubalcava NP - 10/03/2023 3:30 PM EST Images from the original note were not included. [address] [phone] [place], [place] [phone] [place], [place] Yuliet Trevino 1970 Chief Complaint Patient presents with Right Knee - Follow-up Subjective: The patient comes in today, now approximately 6-8 weeks status post right total knee arthroplasty 08-22-23. They tell me that at this point the pain continues to decrease. The patient denies any fevers or chills. No wound drainage. The patient is weaned off of narcotic pain medicine. They have finished their DVT prophylaxis. They deny any shortness of breath or chest pain. They no longer are requiring an assistive device for ambulation. They continue to be more and more mobile. She is doing great. Very pleased with the outcome of the surgery. She finished PT. Objective: On physical examination the patient is [...] all orders for this visit: S/P total knee arthroplasty, right PLAN: At this point the patient is [...] as previously prescribed. All questions were answered. Continue HEP. Ice prn swelling. documented in this encounter Plan of Treatment Upcoming Encounters Date Type Department Care Team (Late st Contact Info) Description 08/31/2024 8:30 AM EST Appointment [facility] [address] [place] [address] 10/25/2024 10:45 AM EST Office Visit [facility] [address] [place] [address] Jessica Cortes MD [address] [facility] 19 [place] [address] 01/25/2025 9:00 AM EDT Appointment [address] [address] [place] [address] 05/09/2025 11:00 AM EDT Appointment [address] [place] [address] 05/09/2025 11:15 AM EDT Appointment [address] [place] [address] Susana Garay MD [address] [facility] [place], [place] [id number] documented as of this encounter Goals Goal Patient Goal Type Associated Problems Recent Progress Patient-Stated? 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, RN documented as of this encounter Visit Diagnoses Diagnosis S/P total knee arthroplasty, right- Primary documented in this encounter Care Teams Supervisor Engine Assembly Relationship Specialty Start Date End Date Julisa Kerr MD [address] [place] [address] PCP - General 02/22/11 Jessica Cortes MD [address] [facility] [address] [place] [address] Internal Medicine-Rheumatology 04/26/16 Susana Garay MD [address] [place] [address] [place], [place] [id number] Medical Oncologist Internal Medicine-Hematology and Oncology 10/14/22 documented as of this encounter
--- OUTSIDE RECORDS SUMMARY | 2024-08-22 21:39 | XMS_ITS | Encounter Summary ---
Author Organization [place] [address] Care Team Providers Care Childrens Club Attendant Name Role Phone Julisa Kerr MD Primary Care Provider [phone] Jessica Cortes MD Unavailable [phone] Susana Garay MD Unavailable [phone] Encounter Details Date Type Department Care Team (Late st Contact Info) Description 08/29/2023 Plan of Care Documentation [facility] Physical Therapy [address] [phone] Social History Tobacco Use Types Packs/Day Years [...] Notes * Therapist Plan of Care - Shanta Barroso, PT - 08/29/2023 3:26 PM EST Images from the original note were not included. Please sign to acknowledge agreement with this updated plan of care. Physical Therapy Knee Evaluation 08/27/2023 Visit # / Insurance : 1/Medicaid Onset Date: 08/22/23 Diagnosis: Right TKA Precautions: post op Referring Provider Follow Up: Etienne , 09/04/23 Subjective: Yuliet Trevino is a 52 y.o., female, referred by Etienne . Primary complaint: Reports she had surgery on 08/22/23. Did well over the weekend, but has started to get sore. Reports she drove herself to therapy, hasn't taken her pain medicine. Patient wants to return to Pain scale: 8/10 Location: right knee Type: dull, throbbing Sensation/Neurovascular: WFL Diagnostic Tests: see EPIC Have you received any Speech or Physical therapy this year? Yes, 1 visit prehab Are you currently receiving any Home Health services? No Any problems with speech, communication, memory? No Barriers to learning? No Recent falls? 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 ADLs: walking, stairs, cleaning, squatting, kneeling Primary physical needs at work/ with hobbies/at home: sitting, standing, walking, pushing, pulling,going up/down steps, carrying, bending, and squatting Living situation: Past Medical History: Diagnosis Date Antiphospholipid syndrome (HCC) Arthritis DVT (deep venous thrombosis) (HCC) 06/08/2022 Right Past Surgical History: Procedure Laterality Date HYSTEROSCOPY IR 2 LEVEL TRANSFORAMINAL EPIDURAL INJ CERVICAL SPINE 06/2021 BARBIE AND BSO 09/29/2000 Current Outpatient Medications Medication Sig Dispense Refill leflunomide (ARAVA) 20 mg Oral Tablet TAKE 1 TABLET BY MOUTH EVERY DAY 30 Tablet 0 azithromycin (ZITHROMAX) 250 mg Oral Tablet Take 2 tablets (500 mg) on Day 1, followed by 1 tablet (250 mg) once daily on Days 2 through 5. 6 Tablet 0 ELIQUIS 5 mg Oral Tablet TAKE 1 TABLET BY MOUTH TWICE A DAY 90 Tablet 2 fUROsemide (LASIX) 20 mg Oral Tablet TAKE 1 TABLET BY MOUTH EVERY DAY NEEDED 90 Tablet 3 golimumab (SIMPONI) 100 mg/mL SubQ Pen Injector Inject 1 pen under the skin every 30 days. 1 mL 2 hydrOXYzine (ATARAX) 25 mg Oral Tablet Take 1 Tablet by mouth 3 times daily as needed. 90 Tablet 2 methotrexate sodium 25 mg/mL Inj Solution SUBCUTANEOUS (INJECT UNDER THE SKIN) 0.8 ML ONCE A WEEK. 4 mL 1 oxyCODONE-acetaminophen (PERCOCET) 5-325 mg Oral Tablet Take 1 Tablet by mouth every 6 hours as needed for Acute Pain > 3 Days Medically Necessary (R52). 20 Tablet 0 predniSONE (DELTASONE) 5 mg Oral Tablet Take 1 Tablet by mouth daily. 30 Tablet 2 No current facility-administered medications for this encounter. Allergies: Orencia [abatacept (with maltose)], Abatacept, Cefdinir, Celecoxib, Enbrel [etanercept],Humira [adalimumab], Mobic [meloxicam], Tocilizumab, and Xeljanz [tofacitinib] Patient stated goals: to be able to use it like the other one. Observation: Body Composition: 62 , 130# Assistive Devices: walker Bracing: none Skin integrity: JE due to pants Posture: flexed Rt knee Gait: Rt knee flexed, decreased stance time, decreased step length Objective: FOTO Patient Score 08/27/2023 Predicted Score Predicted Change 49 68 19 Patient Specific Functional Scale (PSFS) Patient rates their ability to perform specific functional tasks. Patient will be able to: Status (out of 10) 08/27/2023 Little difficulty with mild pain 9 Little difficulty mild pain 9 Mild pain minimum difficulty 9 Palpation: medial joint line tenderness RIGHT knee AROM: 2-110 LEFT knee AROM: 3-0-148 Knee Reference Range 10-0-135 degrees HS Flexibility Ref. Range (90*/90*) 0-20* from straight IPSILATERAL Hip AROM: grossly WFL IPSILATERAL Ankle AROM: grossly WFL Strength: LEFT RIGHT Extension (quadriceps, L3-4) 3-/5 4/5 Flex (Hamstring) 3/5 4+/5 Hip Flexion (L2-3) 3/5 4+/5 Hip Extension (L2-3) N/A N/A Hip Abduction 4/5 5/5 Hip Adduction 4/5 5/5 Anterior Tibialis (L5) 5/5 5/5 Gastroc (S1-2) 5/5 5/5 Neuro Screen: SLR: Negative Light touch to dermatomes: Normal Special Tests No special tests due to post operative Treatment today included: Evaluation, HEP Instruction, and .Therapeutic exercise Response to Treatment: Increased pain and Increased motion Response to HEP Instruction/Patient Education: Instruction/patient education, Verbalized understanding Therapeutic exercise x 15 min Quad set Knee flexion on step Seated heel slide Supine heel slide Standing hamstring stretch Standing PF Standing DF Assessment: Yuliet Trevino presents today 5 days after Rt TKR surgery. She demonstrates impaired gait with decreased knee extension, decreased hip extension, decreased stance time of the right leg. She hasincreased pain and decreased strength and ROM of the right knee post operatively. Yuliet demonstrates decreased quad activation today with difficulty activating her quad without glut compensations with quad sets. Educated Yuliet to wear either shorts under her pants or looser pants next session so VMS can be used to improve quad activation. At this time Belinda is a candidate for therapy in order to improve quad activation, improve LE strength, improve gait, and improve ROM post operatively. Functional Impairments and Activity Limitations: walking, stairs, squatting Patient presents as a good rehabilitation candidate. Goals set for 12 weeks. Functional Goals: Goals x 4 weeks Patient will demonstrate knee extension ROM 0* to improve ability to walk Patient FOTO will improve to 59 to improve ability to perform household tasks Patient will demonstrate ambulation with knee extension normalized with LRAD to improve ability to walk Goals x 12 weeks Patient's FOTO score will increase to 66 noting an increase in overall function Patient will demonstrate LE strength of 4+/5 to improve ability to perform stairs Patient will demonstrate knee flexoin ROM of 120* to improve ability to perform stairs Patient presents with co-morbidities of cardiac disease and personal factors of N/A that may impactpatient/family's ability toWork and Perform ADLs. During today's evaluation he/she presented with problem areas in musculoskeletal system, cardiovascular/ pulmonary system, neuromuscular system, activity limitations, and participation restriction that are impacting functional activities and participation (see objective measures for further detail). Due to healing fracture/surgical sites/wound bed, the patient's presentation is stable at this time.This patient presented today with lowcomplexity. Reference Chart: Co-morbidities & Personal Factors Body system elements Presentation Clinical Decision Making Low Evaluation 0 1-2 Stable / Predictable Low Moderate Evaluation 1-2 3 or more Evolving/ Changing Moderate High Evaluation 3 or more 4 or more Unstable/ Unpredictable High Plan: Patient will be seen 2 times per week for 12 weeks. Plan of care to include Therapeutic exercise (TE), Therapeutic/Functional activity (TA), Neuromuscular Re-Education (NMR), Manual Therapy (MT), Gait Training, and modalities as needed for patient improvement. This evaluation to serve as D/C summary, if the patient doesn't return for further treatment. Time In: 1130 Time Out: 1202 Total timed treatment: 18 min Total treatment time: 32 min Charges: 1 low eval, TE x 1 Signed: Shanta Barroso PT Date: 08/27/2023 Physician Name: Jordy Clifton* Date Reviewed: 08/27/2023 Physician Signature: Yuliet Trevino : 1970 [phone] documented in this encounter Plan of Treatment Upcoming Encounters Date Type Department Care Team (Late st Contact Info) Description 08/31/2024 8:30 AM EST Appointment [facility] Cancer [address] [address] [place] [address] 10/25/2024 10:45 AM EST Office Visit [facility] [address] [facility] [address] [place] [address] Jessica Cortes MD 651 [facility] 19 [place] [address] 01/25/2025 9:00 AM EDT Appointment [address] [place] [address] 05/09/2025 11:00 AM EDT [address]ointment [address] [place] [address] 05/09/2025 11:15 AM EDT [address]ointment [address] [place] [address] Susana Garay MD [address] [place], [place] [phone] documented as of this encounter Goals Goal Patient Goal Type Associated Problems Recent Progress Patient-Stated? 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, RN documented as of this encounter Visit Diagnoses Not on filedocumented in this encounter Care Teams Childrens Club Attendant Relationship Specialty Start Date End Date Julisa Kerr MD [address] [place] [address] PCP - General 02/22/11 Jessica Cortes MD 651 [facility] [address] [place] [address] Internal Medicine-Rheumatology 04/26/16 Susana Garay MD [address] [facility] [place] [address] Medical Oncologist Internal Medicine-Hematology and Oncology 10/14/22 documented as of this encounter
--- OUTSIDE RECORDS SUMMARY | 2024-08-22 21:39 | XMS_ITS | Encounter Summary ---
Author Organization [facility] Address [address] [place] [address] Care Team Providers Care Computer Forensic Examiner Name Role Phone Julisa Kerr MD Primary Care Provider [phone] Jessica Cortes MD Unavailable [phone] Susana Garay MD Unavailable [phone] Encounter Details Date Type Department Care Team (Late st Contact Info) Description 09/04/2023 2:45 PM EST Ancillary Procedure [facility] [address] [place] [id number] Brianna Rubalcava NP [address] [place] [address] S/P total knee arthroplasty, right Social History Tobacco Use Types Packs/Day Years [...] Info) Description 08/31/2024 8:30 AM EST Appointment [address] [place] [address] 10/25/2024 10:45 AM EST Office Visit [facility] [address] [facility] [address] [place] [address] Jessica Cortes MD [address] [facility] Building [address] [place] [address] 01/25/2025 9:00 AM EDT Appointment [address] [place] [address] 05/09/2025 11:00 AM EDT Appointment [address] [place] [address] 05/09/2025 11:15 AM EDT Appointment [facility] [address] [place] [address] Susana Garay MD [address] [facility] [place] [address] documented as of this encounter Goals Goal Patient Goal Type Associated Problems Recent Progress Patient-Stated? 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 RN documented as of this encounter Procedures Procedure Name Priority Date/Time Associated Diagnosis Comments XR KNEE RIGHT AP LATERAL AND SUNRISE STANDING Routine 09/04/2023 2:58 PM EST S/P total knee arthroplasty, right documented in this encounter Results * XR KNEE RIGHT AP LATERAL AND SUNRISE STANDING (09/04/2023 2:58 PM EST) Narrative Genericuser, Marlen - 09/04/2023 3:01 PM EST Please see physician's note from office encounter for x-ray imaging result us Brianna Rubalcava SOUND TRUCK OPERATOR IMG DIAGNOSTIC IMAGING ORDERABLE S Final Result documented in this encounter Visit Diagnoses Diagnosis S/P total knee arthroplasty, right documented in this encounter Care Teams Computer Forensic Examiner Relationship Specialty Start Date End Date Julisa Kerr MD [address] [place], [place] [id number] PCP - General 02/22/11 Jessica Cortes MD 651 [facility] [address] [place] [address] Internal Medicine-Rheumatology 04/26/16 Susana Garay MD [address] [facility] [place] [address] Medical Oncologist Internal Medicine-Hematology and Oncology 10/14/22 documented as of this encounter
--- OUTSIDE RECORDS SUMMARY | 2024-08-22 21:39 | XMS_ITS | Encounter Summary ---
Author Organization [facility] [place] [address] Care Team Providers Care Rubber Chemist Name Role Phone Julisa Kerr MD Primary Care Provider [phone] Jessica Cortes MD Unavailable [phone] Susana Garay MD Unavailable [phone] Reason for Visit * Physical Therapy (Routine) - Closed Specialty Diagnoses / Procedures Referred By Contac t Referred To Contact Physical Therapist / Physical Therapy Diagnoses Primary osteoarthritis of right knee Jame Webb PA-C [address] [id number] Phone: tel: fax: Shanta Barroso, PT Referral ID Status Reason Start Date Expiration Date Visits Re quested Visits Authorized [id number] Closed 07/09/2023 07/08/2024 1 12 Encounter Details Date Type Department Care Team (Latest Contact Info) Description 09/11/2023 11:11 AM EST - 09/11/2023 11:59 PM [facility] Hospital Encounter [facility] [place] [address] Shanta Barroso, PT Discharge Disposition: Home or Self Care Social [...] Time of Discharge ELIQUIS 5 mg Oral TabletIndications :Antiphospholipid syndrome (HCC),History of DVT in adulthood TAKE 1 TABLET BY MOUTH TWICE A DAY 90 Tablet 2 05/14/2023 10/07/2023 hydrOXYzine (ATARAX) 25 mg Oral TabletIndications :Itching TAKE 1 TABLET BY MOUTH THREE TIMES A DAY NEEDED 90 Tablet 2 09/02/2023 12/08/2023 predniSONE (DELTASONE) 5 mg Oral TabletIndications :Rheumatoid arthritis involving multiple sites with positive rheumatoid factor (HCC) Take 1 Tablet by mouth daily. 30 Tablet 2 06/20/2023 09/19/2023 documented as of this encounter Discharge Disposition Disposition Code Departure Means Destination Home or Self Care documented in this encounter Progress Notes * Shanta Barroso, PT - 09/11/2023 11:15 AM EST Physical Therapy Daily Progress Note 09/11/2023 Yuliet Trevino : 1970 Visit # / Insurance : 4/Medicaid Onset Date: 08/22/23 Diagnosis: Right TKA Precautions: post op MD Follow Up:Etienne Medication Changes: none Reassessment Date/Recert Date: 09/26/23 Next FOTO due: Reassessment Time In/Out: 1115/1200 Pain Scale: 8 Location: right knee(s) Type: dull and throbbing Subjective Knee is a little sorer today, but her arthritis in general has been acting up. HEP: Compliant Objective Enters without AD, FOTO??: (1-100) Initial Evaluation (Date) Score (Predicted) 49 (68) PSFS: Patient will be able to???(0-10) Little difficulty with mild pain 9 Little difficult mild pain 9 Mild pain minimum difficulty 9 Education: Needs Assistance: Yes Understood: Yes Treatment: Therapeutic exercise (TE) x 44 min NuStep x 6 min lvl 5 Lunge on step for knee flexion 10 sec x 10 Standing HSS x 30 sec Seated HSS 2 x 30 sec Standing gastroc stretch 3 x 30 sec Seated march x 20 Seated LAQ x 10 Walking with band for TKE TKE w/ball at wall 5 sec x 20 Standing DF x 20 Standing PF x 20 Treadmill push and pull x 20 each SLR x 10 VMS - 10 sec on/off quad set x 3 min SAQ x 10 reps Total timed treatment: 44 min Total treatment time: 45 min Charges: TE x 3 Assessment Belinda has attended therapy from 08/27/23 to today's date for 5 visits. Continues to struggle with herquad strength with decreased knee extension during ambulation. Her knee flexion is doing well, demonstrating about 123* of knee flexion. Plan Continue PT: Plan of care to include Therapeutic exercise (TE), Therapeutic/Functional activity (TA), Neuromuscular Re-Education (NMR), Manual Therapy (MT), Gait Training, Dry Needling (DN) and modalities as needed for patient improvement. Signature: Shanta Barroso, PT Date: 09/11/2023 documented in this encounter Plan of Treatment Upcoming Encounters Date Type Department Care Team (Late st Contact Info) Description 08/31/2024 8:30 AM EST Appointment [address] [address] 10/25/2024 10:45 AM EST Office Visit [facility] [address] [place] [address] Jessica Cortes MD [address] [place] [address] 01/25/2025 9:00 AM EDT Appointment [address] [address] 05/09/2025 11:00 AM EDT Appointment [address] [address] 05/09/2025 11:15 AM EDT Appointment [address] [address] Susana Garay MD [address] [place] [address] documented as of this encounter Goals Goal Patient Goal Type Associated Problems Recent Progress Patient-Stated? 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, RN documented as of this encounter Visit Diagnoses Not on filedocumented in this encounter Care Teams Rubber Chemist Relationship Specialty Start Date End Date Julisa Kerr MD [address] [place] [address] PCP - General 02/22/11 Jessica Cortes MD 651 [facility] [address] [place] [address] Internal Medicine-Rheumatology 04/26/16 Susana Garay MD 1 [place] [address] Medical Oncologist Internal Medicine-Hematology and Oncology 10/14/22 documented as of this encounter
--- OUTSIDE RECORDS SUMMARY | 2024-08-22 21:39 | XMS_ITS | Encounter Summary ---
Author Organization [place] [address] Care Team Providers Care Car Usher Name Role Phone Julisa Kerr MD Primary Care Provider [phone] Jessica Cortes MD Unavailable [phone] Susana Garay MD Unavailable [phone] Reason for Visit * Physical Therapy (Routine) - Closed Specialty Diagnoses / Procedures Referred By Contac t Referred To Contact Physical Therapist / Physical Therapy Diagnoses Primary osteoarthritis of right knee Jame Webb PA-C [address] [phone] Phone: tel: fax: Shanta Barroso, PT Referral ID Status Reason Start Date Expiration Date Visits Re quested Visits Authorized [id number] Closed 07/09/2023 07/08/2024 1 12 Encounter Details Date Type Department Care Team (Latest Contact Info) Description 09/04/2023 11:15 AM EST - 09/04/2023 11:59 PM [facility] Hospital Encounter [facility] [place] [place] [address] Shanta Barroso, PT Discharge Disposition: Home or [...] Progress Notes * Shanta Barroso, PT - 09/04/2023 11:15 AM EST Images from the original note were not included. Physical Therapy Daily Progress Note 09/04/2023 Yuliet Trevino : 1970 Visit # / Insurance : 2/Medicaid Onset Date: 08/22/23 Diagnosis: Right TKA Precautions: post op MD Follow Up:Etienne Medication Changes: none Reassessment Date/Recert Date: 09/26/23 Next FOTO due: Reassessment Time In/Out: 1122/1203 Pain Scale: 4 Location: right knee(s) Type: dull and throbbing Subjective Reports her knee will get really sore after a lot of walking, [place] HEP: Compliant Objective Enters without AD, FOTO??: (1-100) Initial Evaluation (Date) Score (Predicted) 49 (68) PSFS: Patient will be able to???(0-10) Little difficulty with mild pain 9 Little difficult mild pain 9 Mild pain minimum difficulty 9 Education: Needs Assistance: Yes Understood: Yes Treatment: Therapeutic exercise (TE) x 40 min NuStep x 6 min lvl 5 Lunge on step for knee flexion 10 sec x 10 Standing HSS 3 x 30 sec Standing gastroc stretch 3 x 30 sec TKE w/GTB 5 sec x 20 Standing PF x 20 Standing DF x 20 Walking with band for TKE Treadmill push and pull x 20 each Quad set 5 sec x 20 VMS - 10 sec on/off quad set x 3 min SAQ x 10 reps Total timed treatment: 40 min Total treatment time: 41 min Charges: TE x 3 Assessment Belinda has attended therapy from 08/27/23 to today's date for 2 visits. She demonstrates improved ambulation and quad strength today. However, she continues to have decreased functional quad use, with her knees in a flexed position during gait, and reporting buckling of her knees at times. Gait improved with use of band for knee extenison cueing, however still lacks full extension. VMS used for quadstrength with quad set and SAQ. Plan Continue PT: Plan of care to include Therapeutic exercise (TE), Therapeutic/Functional activity (TA), Neuromuscular Re-Education (NMR), Manual Therapy (MT), Gait Training, Dry Needling (DN) and modalities as needed for patient improvement. Signature: Shanta Barroso, PT Date: 09/04/2023 documented in this encounter Plan of Treatment Upcoming Encounters Date Type Department Care Team (Late st Contact Info) Description 08/31/2024 8:30 AM EST Appointment [address] [address] 10/25/2024 10:45 AM EST Office Visit [facility] [address] [place] [address] Jessica Cortes MD [address] [place] [address] 01/25/2025 9:00 AM EDT Appointment [address] [address] 05/09/2025 11:00 AM EDT Appointment [address] [address] 05/09/2025 11:15 AM EDT Appointment [address] [address] Susana Garay MD [address] [facility] [place] [address] documented as of this encounter Goals Goal Patient Goal Type Associated Problems Recent Progress Patient-Stated? 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 RN documented as of this encounter Visit Diagnoses Not on filedocumented in this encounter Care Teams Car Usher Relationship Specialty Start Date End Date Julisa Kerr MD [address] [place] [address] PCP - General 02/22/11 Jessica Cortes MD 651 [facility] 19 [place] [address] Internal Medicine-Rheumatology 04/26/16 Susana Garay MD [address] [place] [address] Medical Oncologist Internal Medicine-Hematology and Oncology 10/14/22 documented as of this encounter
--- OUTSIDE RECORDS SUMMARY | 2024-08-22 21:39 | XMS_ITS | Encounter Summary ---
Author Organization [place] [address] Care Team Providers Care Payroll Representative Name Role Phone Julisa Kerr MD Primary Care Provider [phone] Jessica Cortes MD Unavailable [phone] Susana Garay MD Unavailable [phone] Reason for Visit * Physical Therapy (Routine) - Closed Specialty Diagnoses / Procedures Referred By Contac t Referred To Contact Physical Therapist / Physical Therapy Diagnoses Primary osteoarthritis of right knee Jame Webb PA-C [address] [phone] Phone: tel: fax: Shanta Barroso, PT Referral ID Status Reason Start Date Expiration Date Visits Re quested Visits Authorized [id number] Closed 07/09/2023 07/08/2024 1 12 Encounter Details Date Type Department Care Team (Latest Contact Info) Description 09/24/2023 11:19 AM EST - 09/24/2023 11:59 PM [facility] Hospital Encounter [facility] Physical Therapy [address] [place] [address] Lola Jones PT [address] [place] [address] Discharge Disposition: Home or Self Care Social [...] DAY NEEDED 90 Tablet 2 09/02/2023 12/08/2023 documented as of this encounter Discharge Disposition Disposition Code Departure Means Destination Home or Self Care documented in this encounter Progress Notes * Karen Lola, PT - 09/24/2023 11:30 AM EST Images from the original note were not included. Physical Therapy Daily Progress Note 09/24/2023 Yuliet Trevino : 1970 Visit # / Insurance : 04/09 09/28/23 Medicaid Onset Date: 08/22/23 Diagnosis: Right TKA Precautions: post op, RA, left knee pain MD Follow Up:Etienne Medication Changes: none Reassessment Date/Recert Date: 09/26/23 Next FOTO due: taken 09/24/23 62, change of 13 Time In/Out: 11:32 to 12:14pm Pain Scale: 5/10 Location: right knee(s) Type: dull and throbbing Subjective Her whole body is hurting today from RA flare. Whole right leg is hurting, not just the knee. HEP: Compliant Objective Enters without AD, slow gait with knees bent and short stride Right knee 0 to 140 flexion 4/5 right knee FOTO??: (1-100) Initial Evaluation (Date) Score (Predicted) 49 (68) 09/24/23 PSFS: Patient will be able to???(0-10) Little difficulty with mild pain 9 10 Little difficult mild pain 9 10 Mild pain minimum difficulty 9 10 Education: Needs Assistance: Yes Understood: Yes Treatment: Therapeutic exercise (TE) x 42 min NuStep x 7 min lvl 4( also using arms) Lunge on step for knee flexion 10 sec x 10 Seated HSS 3 x 30 sec Standing gastroc stretch 3 x 30 sec Standing hip abd, ext 2 x 10 (B) , 2# right leg only Standing TKE w/Blue TB 5 sec x 20 Standing TKE w/contralateral november x 20 4 Step up x 20 4 Lateral step up x 20 Wall squats 10 sec 10 reps Side stepping 40 ft Heel toe gait and decreasing limp right LE 40 ft 4 times SLR 2 x 10 Quat set 20 reps Laq 5 sec 20 reps Total timed treatment: 42 min Total treatment time: 42 min Charges: TE x 3 Assessment Belinda has attended therapy from 08/27/23 to today's date for 8 visits. Patient able to tolerate exercise better today Able to walk better concentrating on heel toe gait and had min limp right LE Goals set for 12 weeks. Functional Goals: Goals x 4 weeks Patient will demonstrate knee extension ROM 0* to improve ability to walk- met Patient FOTO will improve to 59 to improve ability to perform household tasks- met , now 62, changeof 13 Patient will demonstrate ambulation with knee extension normalized with LRAD to improve ability to walk - met with concentrating on heel toe gait Goals x 12 weeks Patient's FOTO score will increase to 66 noting an increase in overall function Patient will demonstrate LE strength of 4+/5 to improve ability to perform stairs Patient will demonstrate knee flexoin ROM of 120* to improve ability to perform stairs Plan Continue PT: Plan of care to include Therapeutic exercise (TE), Therapeutic/Functional activity (TA), Neuromuscular Re-Education (NMR), Manual Therapy (MT), Gait Training, Dry Needling (DN) and modalities as needed for patient improvement. Signature: Lola Jones, PT Date: 09/24/2023 documented in this encounter Plan of Treatment Upcoming Encounters Date Type Department Care Team (Late st Contact Info) Description 08/31/2024 8:30 AM EST Appointment [address] [address] [place] [address] 10/25/2024 10:45 AM EST Office Visit [facility] [address] [place] [address] Jessica Cortes MD [address] [facility] Building [address] [place] [address] 01/25/2025 9:00 AM EDT Appointment [address] [address] [place] [address] 05/09/2025 11:00 AM EDT Appointment [address] [address] [place] [address] 05/09/2025 11:15 AM EDT Appointment [facility] [address] [place], [place] [id number] Susana Garay MD 1 [facility] [address] documented as of this encounter Goals Goal Patient Goal Type Associated Problems Recent Progress Patient-Stated? Author Maintain a healthy diet, exercise regularly and maintain an ideal body weight General Porsche Ashley RN documented as of this encounter Visit Diagnoses Not on filedocumented in this encounter Care Teams Payroll Representative Relationship Specialty Start Date End Date Julisa Kerr MD [address] [place] [address] PCP - General 02/22/11 Jessica Cortes MD [address] [address] Internal Medicine-Rheumatology 04/26/16 Susana Garay MD [address] [facility] [place] [address] Medical Oncologist Internal Medicine-Hematology and Oncology 10/14/22 documented as of this encounter
--- OUTSIDE RECORDS SUMMARY | 2024-08-22 21:39 | XMS_ITS | Encounter Summary ---
Author Organization [place] [address] Care Team Providers Care Seat Builder Name Role Phone Julisa Kerr MD Primary Care Provider [phone] Jessica Cortes MD Unavailable [phone] Susana Garay MD Unavailable [phone] Reason for Visit * Reason Comments Pain Encounter Details Date Type Department Care Team (Late st Contact Info) Description 09/18/2023 1:15 PM EST Office Visit [facility] [address] [place] [address] Thierno Toth MD [address] [place] [address] Rheumatoid arthritis involving multiple sites with positive rheumatoid factor (HCC) (Primary Dx); Acute bilateral low back pain without sciatica [...] Reading Time Taken Comments Blood Pressure 110/70 09/18/2023 1:11 PM EST Pulse - - Temperature 36.6 ??C (97.9 ??F) 09/18/2023 1:11 PM ES T Respiratory Rate - - Oxygen Saturation - - Inhaled Oxygen Concentration - - Weight 61.4 kg (135 lb 6.4 oz) 09/18/2023 1:11 P M EST Height 160 cm (5' 3 ) 09/18/2023 1:11 PM EST Body Mass Index 23.99 09/18/2023 1:11 PM EST documented in this encounter Functional Status * [...] Tablet by mouth nightly. 30 Tablet 2 09/18/2023 10/29/2023 documented in this encounter Progress Notes * Thierno Toth MD - 09/18/2023 1:15 PM EST Vitals: 09/18/23 1311 BP: 110/70 Temp: 97.9 ??F (36.6 ??C) Weight: 135 lb 6.4 oz (61.4 kg) Height: 5' 3 (1.6 m) Body mass index is 23.99 kg/m??. SUBJECTIVE: Chief Complaint Patient presents with Pain HPI: Pt is present today for pain in her hands, legs and neck. Controlled Substance Prescribing Management: As part of today's visit Yuliet is also being followed for controlled substance management for Arthritis . Details of the progress of the monitored condition are noted in that section of the HPI. The controlled substance flow sheet has been reviewed. Productive cough this morning. No fever. Mild chest congestion a few days ago. Review of Systems Constitutional: Negative for fever. Eyes: Negative for visual disturbance. Respiratory: Negative for cough and shortness of breath. Cardiovascular: Negative for chest pain, palpitations and leg swelling. Gastrointestinal: Negative for abdominal pain, constipation and diarrhea. Genitourinary: Negative for difficulty urinating. Musculoskeletal: Positive for arthralgias and joint swelling. Skin: Negative for rash. Neurological: Negative for dizziness, light-headedness and headaches. OBJECTIVE: Physical Exam Vitals reviewed. Constitutional: General: She is not in acute distress. Appearance: Normal appearance. She is well-developed. She is not ill-appearing. HENT: Head: Normocephalic and atraumatic. Right Ear: Tympanic membrane normal. Tympanic membrane is not erythematous or bulging. Left Ear: Tympanic membrane normal. Tympanic membrane is not erythematous or bulging. Eyes: General: Right eye: No discharge. Left eye: No discharge. Conjunctiva/sclera: Conjunctivae normal. Cardiovascular: Rate and Rhythm: Normal rate and regular rhythm. Heart sounds: Normal heart sounds. No murmur heard. No friction rub. No gallop. Pulmonary: Effort: Pulmonary effort is normal. No respiratory distress. Breath sounds: Normal breath sounds. No wheezing or rales. Abdominal: General: Bowel sounds are normal. Palpations: Abdomen is soft. Musculoskeletal: General: Normal range of motion. Skin: General: Skin is warm. Findings: No rash. Neurological: Mental Status: She is alert. Psychiatric: Mood and Affect: Mood normal. Thought Content: Thought content normal. Assessment Diagnoses and all orders for this visit: Rheumatoid arthritis involving multiple sites with positive rheumatoid factor (HCC) (Chronic) - methylPREDNISolone acetate (DEPO-Medrol) injection 80 mg - gabapentin (NEURONTIN) 600 mg Oral Tablet; Take 1 Tablet by mouth nightly. Dispense: 30 Tablet; Refill: 2 Acute bilateral low back pain without sciatica - gabapentin (NEURONTIN) 600 mg Oral Tablet; Take 1 Tablet by mouth nightly. Dispense: 30 Tablet; Refill: 2 documented in this encounter Plan of Treatment Upcoming Encounters Date Type Department Care Team (Late st Contact Info) Description 08/31/2024 8:30 AM EST [address]ment [address] [place] [address] 10/25/2024 10:45 AM EST Office Visit [facility] [address] [place] [address] Jessica Cortes MD [address] [facility] Building [address] [place] [address] 01/25/2025 9:00 AM EDT [address]ointment [address] [place] [address] 05/09/2025 11:00 AM EDT [address]ment [address] [place] [address] 05/09/2025 11:15 AM EDT [address]ointment [address] [place] [address] Susana Garay MD [address] [place] [address] [place] [address] documented as of this encounter Goals Goal Patient Goal Type Associated Problems Recent Progress Patient-Stated? 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 RN documented as of this encounter Visit Diagnoses Diagnosis 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 Acute bilateral low back pain without sciatica documented in this encounter Administered Medications Inactive Administered Medications - up to 1 most recent administrations Medication Order MAR Action Action Date Dose Rate Site methylPREDNISolone acetate (DEPO-Medrol) injection 80 mg 80 mg, Intramuscular, ONCE, 1 dose, On Oxana 09/18/23 at 1345, Dx: 1. Rheumatoid arthritis involving multiple sites with positive rheumatoid factor (HCC)Indications:Rheumat oid arthritis involving multiple sites with positive rheumatoid factor (HCC) Given 09/18/2023 1:45 PM EST 80 mg Left upper gluteus documented in this encounter Care Teams Seat Builder Relationship Specialty Start Date End Date Julisa Kerr MD [address] [place] [address] PCP - General 02/22/11 Jessica Cortes MD [address] [place] [address] Internal Medicine-Rheumatology 04/26/16 Susana Garay MD [address] [place] [address] Medical Oncologist Internal Medicine-Hematology and Oncology 10/14/22 documented as of this encounter
--- OUTSIDE RECORDS SUMMARY | 2024-08-22 21:39 | XMS_ITS | Encounter Summary ---
Author Organization [place] [address] Care Team Providers Care Concrete Pointer Name Role Phone Julisa Kerr MD Primary Care Provider [phone] Jessica Cortes MD Unavailable [phone] Susana Garay MD Unavailable [phone] Reason for Visit * Reason Comments Pharmacy Rheumatology Management Simponi Encounter Details Date Type Department Care Team (Latest Contact Info) Description 09/01/2023 Specialty Pharmacy [facility] [address] [phone] Angela Fournier CPhT Pharmacy Rheumatology Management (Simponi) Social History [...] Entry Date Author No 06/10/2023 11:21 AM Diloln Mcnamara MA documented in this encounter Progress Notes * Angela Fournier CPhT - 09/01/2023 9:26 AM EST Specialty Pharmacy Refill Coordination Note Contacted Yuliet Trevino today regarding refills of Simponi. No answer, left voicemail to call [phone], option 4. Patient is not clinically followed. * Angela Fournier CPhT - 09/01/2023 9:26 AM EST Specialty Pharmacy Refill Coordination Note Contacted Yuliet Trevino today regarding refills of Simponi. Medication to be delivered by [facility] on 09/08. Spoke with patient. Patient is not clinically followed. documented in this encounter Plan of Treatment Upcoming Encounters Date Type Department Care Team (Late st Contact Info) Description 08/31/2024 8:30 AM EST Appointment [facility] [address] [place] [address] 10/25/2024 10:45 AM EST Office Visit [facility] [address] [facility] [address] [place] [address] Jessica Cortes MD 651 [facility] 19 [place] [address] 01/25/2025 9:00 AM EDT Appointment [address] [address] [place] [address] 05/09/2025 11:00 AM EDT Appointment [address] [place] [address] 05/09/2025 11:15 AM EDT Appointment [address] [place] [address] Susana Garay MD [address] [place] [address] [address] [phone] documented as of this encounter Goals Goal Patient Goal Type Associated Problems Recent Progress Patient-Stated? Author Maintain a healthy diet, exercise regularly and maintain an ideal body weight General Porsche Ashley, RN documented as of this encounter Visit Diagnoses Not on filedocumented in this encounter Care Teams Concrete Pointer Relationship Specialty Start Date End Date Julisa Kerr MD [address] [place] [address] PCP - General 02/22/11 Jessica Cortes MD 651 [facility] [address] [place] [address] Internal Medicine-Rheumatology 04/26/16 Susana Garay MD [address] [place] [address] [place] [address] Medical Oncologist Internal Medicine-Hematology and Oncology 10/14/22 documented as of this encounter
--- OUTSIDE RECORDS SUMMARY | 2024-08-22 21:39 | XMS_ITS | Encounter Summary ---
Author Organization [place] [address] Care Team Providers Care Case Advocate Name Role Phone Julisa Kerr MD Primary Care Provider [phone] Jessica Cortes MD Unavailable [phone] Susana Garay MD Unavailable [phone] Reason for Visit * Reason Comments Medication Refill Encounter Details Date Type Department Care Team (Late st Contact Info) Description 09/02/2023 Refill [facility] [address] [place] [address] Julisa Kerr MD [address] [place] [address] Medication Refill Social History Tobacco Use Types [...] NEEDED 90 Tablet 2 09/02/2023 12/08/2023 documented in this encounter Miscellaneous Notes * Telephone Encounter - Cherrie Ferrera CPhT - 09/02/2023 3:20 PM EST Medication Refill Protocol not available for this medication. Routed to office staff. documented in this encounter Plan of Treatment Upcoming Encounters Date Type Department Care Team (Late st Contact Info) Description 08/31/2024 8:30 AM EST Appointment [facility] [address] [place] [address] 10/25/2024 10:45 AM EST Office Visit [facility] 651 [facility] [address] [place] [address] Jessica Cortes MD [address] [phone] 01/25/2025 9:00 AM EDT Appointment [address] [place] [address] 05/09/2025 11:00 AM EDT Appointment [address] [place] [address] 05/09/2025 11:15 AM EDT Appointment [address] [place] [address] Susana Garay MD [address] [place] [address] [address] [phone] documented as of this encounter Goals Goal [...] hydrOXYzine (ATARAX) 25 mg Oral TabletIndications:Itchin g Take 1 Tablet by mouth 3 times daily as needed. 06/10/2023 09/02/2023 documented as of this encounter Care Teams Case Advocate Relationship Specialty Start Date End Date Julisa Kerr MD [address] [place] [address] PCP - General 02/22/11 Jessica Cortes MD [address] [place] [address] Internal Medicine-Rheumatology 04/26/16 Susana Garay MD [address] [place] [address] [place] [address] Medical Oncologist Internal Medicine-Hematology and Oncology 10/14/22 documented as of this encounter
--- OUTSIDE RECORDS SUMMARY | 2024-08-22 21:39 | XMS_ITS | Encounter Summary ---
Author Organization [place] [address] Care Team Providers Care Market Development Analyst Name Role Phone Julisa Kerr MD Primary Care Provider [phone] Jessica Cortes MD Unavailable [phone] Susana Garay MD Unavailable [phone] Reason for Visit * Physical Therapy (Routine) - Closed Specialty Diagnoses / Procedures Referred By Contac t Referred To Contact Physical Therapist / Physical Therapy Diagnoses Primary osteoarthritis of right knee Jame Webb PA-C [address] [phone] Phone: tel: fax: Shanta Barroso, PT Referral ID Status Reason Start Date Expiration Date Visits Re quested Visits Authorized [id number] Closed 07/09/2023 07/08/2024 1 12 Encounter Details Date Type Department Care Team (Latest Contact Info) Description 09/18/2023 11:15 AM EST - 09/18/2023 11:59 PM [facility] Hospital Encounter [facility] [place] [address] Shanta Barroso, PT Discharge Disposition: Home or [...] Progress Notes * Shanta Barroso, PT - 09/18/2023 11:15 AM EST Images from the original note were not included. Physical Therapy Daily Progress Note 09/18/2023 Yuliet Trevino : 1970 Visit # / Insurance : 6/Medicaid Onset Date: 08/22/23 Diagnosis: Right TKA Precautions: post op, RA, left knee pain MD Follow Up:Etienne Medication Changes: none Reassessment Date/Recert Date: 09/26/23 Next FOTO due: Reassessment Time In/Out: 1123/1205 Pain Scale: 7 Location: right knee(s) Type: dull and throbbing Subjective Her whole body is hurting today from RA flare. Whole right leg is hurting, not just the knee. HEP: Compliant Objective Enters without AD, FOTO??: (1-100) Initial Evaluation (Date) Score (Predicted) 49 (68) PSFS: Patient will be able to???(0-10) Little difficulty with mild pain 9 Little difficult mild pain 9 Mild pain minimum difficulty 9 Education: Needs Assistance: Yes Understood: Yes Treatment: Therapeutic exercise (TE) x 41 min NuStep x 6 min lvl 3 Lunge on step for knee flexion 10 sec x 10 Seated HSS 3 x 30 sec Standing gastroc stretch 3 x 30 sec Standing hip abd, ext 2 x 10 (B) Standing TKE w/Blue TB 5 sec x 20 Standing TKE w/contralateral november x 20 4 Step up x 20 4 Lateral step up x 20 SLR 2 x 10 VMS - 10 sec on/off quad set x 5 min SAQ x 5 min Total timed treatment: 41 min Total treatment time: 42 min Charges: TE x 3 Assessment Belinda has attended therapy from 08/27/23 to today's date for 7 visits. Decreased tolerance to therapytoday secondary to increased pain from RA. Decreased step height today. Had increased deviation with ambulation throughout her body, not just present in the RLE. Continue to progress as tolerated, left knee continues to limit some exercises. Goals set for 12 weeks. Functional Goals: [...] patient improvement. Signature: Shanta Barroso, PT Date: 09/18/2023 documented in this encounter Plan of Treatment Upcoming Encounters Date Type Department Care Team (Late st Contact Info) Description 08/31/2024 8:30 AM EST Appointment [address] [address] [address] [place] [address] 10/25/2024 10:45 AM EST Office Visit [facility] [address] [facility] [address] [place] [address] Jessica Cortes MD 651 [facility] Building 19 [place] [address] 01/25/2025 9:00 AM EDT Appointment [address] [address] [address] [address] 05/09/2025 11:00 AM EDT Appointment [address] [address] [place] [address] 05/09/2025 11:15 AM EDT Appointment [address] [address] [place] [address] Susana Garay MD [address] [place] [address] [place] [address] documented as of this encounter Goals Goal Patient Goal Type Associated Problems Recent Progress Patient-Stated? Author Maintain a healthy diet, exercise regularly and maintain an ideal body weight General Porsche Ashley, RN documented as of this encounter Visit Diagnoses Not on filedocumented in this encounter Care Teams Market Development Analyst Relationship Specialty Start Date End Date Julisa Kerr MD 100 [place] [address] PCP - General 02/22/11 Jessica Cortes MD [address] [address] Internal Medicine-Rheumatology 04/26/16 Susana Garay MD [address] [facility] [place] [address] Medical Oncologist Internal Medicine-Hematology and Oncology 10/14/22 documented as of this encounter
--- OUTSIDE RECORDS SUMMARY | 2024-08-22 21:39 | XMS_ITS | Encounter Summary ---
Author Organization [place] [address] Care Team Providers Care Business Teacher Name Role Phone Julisa Kerr MD Primary Care Provider [phone] Jessica Cortes MD Unavailable [phone] Susana Garay MD Unavailable [phone] Encounter Details Date Type Department Care Team (Latest Contact Info) Description 08/18/2023 10:35 AM EST - 08/18/2023 11:59 PM EST Hospital Encounter [facility] [address] [place] [address] Therapeutic drug monitoring (Primary Dx) Discharge Disposition: Home or Self [...] hydrOXYzine (ATARAX) 25 mg Oral TabletIndication s:Itching Take 1 Tablet by mouth 3 times daily as needed. 90 Tablet 2 06/10/2023 3 methotrexate sodium 25 mg/mL Inj SolutionIndicati ons:R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 4 mL 07/31/2023 3 predniSONE (DELTASONE) 5 mg Oral TabletIndication s:Rheumatoid arthritis involving multiple sites with positive rheumatoid factor (HCC) Take 1 Tablet by mouth daily. 30 Tablet 2 06/20/2023 3 documented as of this encounter Discharge Disposition Disposition Code Departure Means Destination Home or Self Care documented in this encounter Plan of Treatment Upcoming Encounters Date Type Department Care Team (Late st Contact Info) Description 08/31/2024 8:30 AM EST Appointment [address] [address] [place] [address] 10/25/2024 10:45 AM EST Office Visit [facility] [address] [place] [address] Jessica Cortes MD 651 [facility] Building 19 [place] [address] 01/25/2025 9:00 AM EDT Appointment [address] [address] [place] [address] 05/09/2025 11:00 AM EDT [address]ointment [address] [place] [address] 05/09/2025 11:15 AM EDT Appointment [address] [place] [address] Susana Garay MD [address] [place] [address] [place] [address] documented as of this encounter Goals Goal Patient Goal Type Associated Problems Recent Progress Patient-Stated? 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, RN documented as of this encounter Procedures Procedure Name Priority Date/Time Associated Diagnosis Comments PT / INR Callback 08/18/2023 10:42 AM EST Therapeutic drug monitoring documented in this encounter Results * PT / INR (08/18/2023 10:42 AM EST) PT 13.6 10.5 - 13.6 second(s) 08/18/2023 11:[address] [facility] INR 1.16 0.89 - 1.16 (ratio) 08/18/2023 11:[address] [facility] Comment: Level of Therapy ? Indications ?Target INR Range Standard Dose Treatment and prophylaxis of venous ? 2.0 - 3.0 ? thrombosis, pulmonary embolism High Dose ? High risk patients with mechanical ? 2.5 - 3.5 ? heart valves Blood VENOUS BLOOD / Unknown Venipuncture / Unknown 08/18/2023 10:42 AM EST 08/18/2023 10:42 AM EST Jame Webb PA-C HEMATOLOGY ORDERABLES Final R esult [facility] [address] [place], [place] [id number] documented in this encounter Visit Diagnoses Diagnosis Therapeutic drug monitoring- Primary Encounter for therapeutic drug monitoring documented in this encounter Care Teams Business Teacher Relationship Specialty Start Date End Date Julisa Kerr MD 100 [place] [address] PCP - General 02/22/11 Jessica Cortes MD 651 [facility] 19 [place] [address] Internal Medicine-Rheumatology 04/26/16 Susana Garay MD [address] [place] [address] Medical Oncologist Internal Medicine-Hematology and Oncology 10/14/22 documented as of this encounter
--- OUTSIDE RECORDS SUMMARY | 2024-08-22 21:39 | XMS_ITS | Encounter Summary ---
Author Organization [place] [address] Care Team Providers Care Environmental Conservation Professor Name Role Phone Julisa Kerr MD Primary Care Provider [phone] Jessica Cortes MD Unavailable [phone] Susana Garay MD Unavailable [phone] Reason for Visit * Reason Comments Medication Refill Encounter Details Date Type Department Care Team (Late st Contact Info) Description 08/21/2023 Refill [facility] [address] [place] [address] Jessica Cortes MD 651 [facility] Building [address] [place] [address] Medication Refill Social History Tobacco Use Types [...] TABLET BY MOUTH EVERY DAY 30 Tablet 08/22/2023 10/03/2023 documented in this encounter Miscellaneous Notes * Telephone Encounter - Ana An RMA - 08/22/2023 8:20 AM EST last visit:06/20/23 last labs:08/13/23 next visit:10/03/23 chart reviewed: Patient has canceled last 2/3 appointments; please advise refill documented in this encounter Plan of Treatment Upcoming Encounters Date Type Department Care Team (Late st Contact Info) Description 08/31/2024 8:[address] [facility] [address] [place] [address] 10/25/2024 10:45 AM EST Office Visit [facility] [address] [facility] [address] [place] [address] Jessica Cortes MD 651 [facility] Building [address] [place] [address] 01/25/2025 9:00 AM EDT Appointment [address] [address] [place] [address] 05/09/2025 11:00 AM EDT Appointment [address] [address] [place] [address] 05/09/2025 11:15 AM EDT Appointment [address] [address] [place] [address] Susana Garay MD [address] [place], [place] [id number] documented as of this encounter Goals Goal [...] Take 1 Tablet by mouth daily. Reorder 06/20/2023 08/22/2023 documented as of this encounter Care Teams Environmental Conservation Professor Relationship Specialty Start Date End Date Julisa Kerr MD 100 [place], [place] [id number] PCP - General 02/22/11 Jessica Cortes MD 651 [facility] Building 19 [place] [address] Internal Medicine-Rheumatology 04/26/16 Susana Garay MD [address] [facility] [address] Medical Oncologist Internal Medicine-Hematology and Oncology 10/14/22 documented as of this encounter
--- OUTSIDE RECORDS SUMMARY | 2024-08-22 21:39 | XMS_ITS | Encounter Summary ---
Author Organization [place] [address] Care Team Providers Care Courtroom Clerk Name Role Phone Julisa Kerr MD Primary Care Provider [phone] Jessica Cortes MD Unavailable [phone] Susana Garay MD Unavailable [phone] Reason for Visit * Physical Therapy (Routine) - Closed Specialty Diagnoses / Procedures Referred By Contac t Referred To Contact Physical Therapist / Physical Therapy Diagnoses Primary osteoarthritis of right knee Jame Webb PA-C [address] [phone] Phone: tel: fax: Shanta Barroso, PT Referral ID Status Reason Start Date Expiration Date Visits Re quested Visits Authorized [id number] Closed 07/09/2023 07/08/2024 1 12 Encounter Details Date Type Department Care Team (Latest Contact Info) Description 09/26/2023 11:15 AM EST - 09/26/2023 11:59 PM [facility] Hospital Encounter [facility] [place] [place] [address] Shanta Barroso, PT Discharge Disposition: Home or [...] Progress Notes * Shanta Barroso, PT - 09/26/2023 11:15 AM EST Images from the original note were not included. Physical Therapy Daily Progress Note/Discharge 09/26/2023 Yuliet Trevino : 1970 Visit # / Insurance : 05/10 09/28/23 Medicaid Onset Date: 08/22/23 Diagnosis: Right TKA Precautions: post op, RA, left knee pain MD Follow Up:Etienne Medication Changes: none Reassessment Date/Recert Date: 09/26/23 Next FOTO due: taken 09/24/23 62, change of 13 Time In/Out: 1118/1202 Pain Scale: 4/10 Location: right knee(s) Type: dull and throbbing Subjective Body feeling better today, pain in the knee is just a 4. HEP: Compliant Objective Enters without AD, slow gait with knees bent and short stride Right knee 0 to 140 flexion Knee Flexion: 5/5 Knee Extension: 5/5 Hip Flexion: 4/5 Hip IR: 4+/5 Hip ER 4+/5 DF: 5/5 PF 5/5 FOTO??: (1-100) Initial Evaluation 09/24/23 Score (Predicted) 49 (68) 62 PSFS: Patient will be able to???(0-10) Little difficulty with mild pain 9 10 Little difficult mild pain 9 10 Mild pain minimum difficulty 9 10 Education: Needs Assistance: Yes Understood: Yes Treatment: Therapeutic exercise (TE) x 40 min NuStep x 6 min lvl 4 Lunge on step for knee flexion 10 sec x 10 Standing hip abd, ext 2 x 10 (B) w/Blue band TKE TKE 5 sec x 10 TKE + contralateral november x 10 4 Lateral touch down 2 x 10 4 anterior touch down 2 x 10 6 Lateral step up 2 x 10 Trampoline step up 2 x 10 Tandem walking Side steps Zig Zags Wall squat 10 sec x 20 Total timed treatment: 40 min Total treatment time: 44 min Charges: TE x 3 Assessment Belinda has attended therapy from 08/27/23 to today's date for 9 visits. She has met 5/6 established therapy goals. She still has slight decreased strength with hip flexion and rotation, but has overall good LE Strength. She has improved gait today with improved hip and knee extension. At this time Wendyyis more limited based on her left knee pain and requiring TKA [facility] Due to this Belinda will be discharged from OPPT at this time with education to continue towork on the right knee, and to work on left knee quad strength in preparation for TKR in the future. Belinda verbalizes understanding of this and agreement with plan. Goals set for 12 weeks. Functional Goals: Goals x 4 weeks Patient will demonstrate knee extension ROM 0* to improve ability to walk- MET Patient FOTO will improve to 59 to improve ability to perform household tasks- met , now 62, changeof 13 Patient will demonstrate ambulation with knee extension normalized with LRAD to improve ability to walk -MET Goals x 12 weeks Patient's FOTO score will increase to 66 noting an increase in overall function NOT MET Patient will demonstrate LE strength of 4+/5 to improve ability to perform stairs Globally MET Patient will demonstrate knee flexoin ROM of 120* to improve ability to perform stairs MET Plan Discharge PT: Plan of care to include Therapeutic exercise (TE), Therapeutic/Functional activity (TA), Neuromuscular Re-Education (NMR), Manual Therapy (MT), Gait Training, Dry Needling (DN) and modalities as needed for patient improvement. Signature: Shanta Barroso PT Date: 09/26/2023 documented in this encounter Miscellaneous Notes * Addendum Note - Shanta Barroso PT - 09/26/2023 11:15 AM ESTEncounter addended by: Shanta Barroso PT on: 11/05/2023 2:25 PM Actions taken: Episode resolved documented in this encounter Plan of Treatment Upcoming Encounters Date Type Department Care Team (Late st Contact Info) Description 08/31/2024 8:30 AM EST Appointment [facility] [address] [place] [address] 10/25/2024 10:45 AM EST Office Visit [facility] [address] [place] [address] Jessica Cortes MD 651 [facility] 19 [place] [address] 01/25/2025 9:00 AM EDT Appointment [address] [place] [address] 05/09/2025 11:00 AM EDT Appointment [address] [place] [address] 05/09/2025 11:15 AM EDT Appointment [address] [place] [address] Susana Garay MD [address] [facility] [place] [address] documented as of this encounter Goals Goal Patient Goal Type Associated Problems Recent Progress Patient-Stated? 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, RN documented as of this encounter Visit Diagnoses Not on filedocumented in this encounter Care Teams Courtroom Clerk Relationship Specialty Start Date End Date Julisa Kerr MD [address] [place] [address] PCP - General 02/22/11 Jessica Cortes MD [address] [place] [address] 19 [place] [address] Internal Medicine-Rheumatology 04/26/16 Susana Garay MD [address] [place] [address] [address] [place], [place] [id number] Medical Oncologist Internal Medicine-Hematology and Oncology 10/14/22 documented as of this encounter
--- OUTSIDE RECORDS SUMMARY | 2024-08-22 21:39 | XMS_ITS | Encounter Summary ---
Author Organization [place] [address] Care Team Providers Care Client Application Support Specialist Name Role Phone Julisa Kerr MD Primary Care Provider [phone] Jessica Cortes MD Unavailable [phone] Susana Garay MD Unavailable [phone] Reason for Visit * Physical Therapy (Routine) - Closed Specialty Diagnoses / Procedures Referred By Contac t Referred To Contact Physical Therapist / Physical Therapy Diagnoses Primary osteoarthritis of right knee Jame Webb PA-C [address] [id number] Phone: tel: fax: Shanta Barroso, PT Referral ID Status Reason Start Date Expiration Date Visits Re quested Visits Authorized [id number] Closed 07/09/2023 07/08/2024 1 12 Encounter Details Date Type Department Care Team (Latest Contact Info) Description 09/16/2023 11:15 AM EST - 09/16/2023 11:59 PM [facility] Hospital Encounter [facility] [place] [address] Shanta Barroso, PT Discharge Disposition: Home or [...] Progress Notes * Shanta Barroso, PT - 09/16/2023 11:15 AM EST Images from the original note were not included. Physical Therapy Daily Progress Note 09/16/2023 Yuliet Trevino : 1970 Visit # / Insurance : 5/Medicaid Onset Date: 08/22/23 Diagnosis: Right TKA Precautions: post op MD Follow Up:Etinene Medication Changes: none Reassessment Date/Recert Date: 09/26/23 Next FOTO due: Reassessment Time In/Out: 1126/1214 Pain Scale: 5 Location: right knee(s) Type: dull and throbbing Subjective Knee is feeling a bit better today. Does okay when it's not real cold. HEP: Compliant Objective Enters without AD, FOTO??: (1-100) Initial Evaluation (Date) Score (Predicted) 49 (68) PSFS: Patient will be able to???(0-10) Little difficulty with mild pain 9 Little difficult mild pain 9 Mild pain minimum difficulty 9 Education: Needs Assistance: Yes Understood: Yes Treatment: Therapeutic exercise (TE) x 47 min NuStep x 6 min lvl 5 Lunge on step for knee flexion 10 sec x 10 Standing HSS 3 x 30 sec Standing gastroc stretch 3 x 30 sec Standing hip abd, ext 2 x 10 (B) Standing TKE w/Blue TB 5 sec x 20 Standing TKE w/contralateral november x 20 6 Step up x 20 6 Lateral step up x 20 4 Lateral touch down x 20 Side Steps x 2 down and back Treadmill push and pull x 20 each SLR 2 x 10 VMS - 10 sec on/off quad set x 3 min SAQ x 10 reps Total timed treatment: 47 min Total treatment time: 48 min Charges: TE x 3 Assessment Belinda has attended therapy from 08/27/23 to today's date for 6 visits. She demonstrates improvement in her quad strength with ability to perform step ups and touch downs. She still demonstrates impaired gait, secondary to knee problems on both the left knee and right knee. Improved ability to performSLR today, but with fatigue has a quad lag. Goals set for 12 weeks. Functional Goals: [...] patient improvement. Signature: Shanta Barroso, PT Date: 09/16/2023 documented in this encounter Plan of Treatment Upcoming Encounters Date Type Department Care Team (Late st Contact Info) Description 08/31/2024 8:30 AM EST Appointment [address] [place] [address] 10/25/2024 10:45 AM EST Office Visit [facility] [address] [facility] [address] [place] [address] Jessica Cortes MD [address] [place] [address] [address] [place] [address] 01/25/2025 9:00 AM EDT Appointment [address] [address] [place] [address] 05/09/2025 11:00 AM EDT Appointment [address] [address] [address] [place] [address] 05/09/2025 11:15 AM EDT Appointment [address] [place] [address] Susana Garay MD [address] [facility] [place] [address] documented as of this encounter Goals Goal Patient Goal Type Associated Problems Recent Progress Patient-Stated? Author Maintain a healthy diet, exercise regularly and maintain an ideal body weight General Porsche Ashley, RN documented as of this encounter Visit Diagnoses Not on filedocumented in this encounter Care Teams Client Application Support Specialist Relationship Specialty Start Date End Date Julisa Kerr MD [address] [place] [address] PCP - General 02/22/11 Jessica Cortes MD [address] [place] [address] Internal Medicine-Rheumatology 04/26/16 Susana Garay MD [address] [facility] [place] [address] Medical Oncologist Internal Medicine-Hematology and Oncology 10/14/22 documented as of this encounter
--- OUTSIDE RECORDS SUMMARY | 2024-08-22 21:39 | XMS_ITS | Encounter Summary ---
Author Organization [place] [address] Care Team Providers Care Bed And Breakfast Innkeeper Name Role Phone Julisa Kerr MD Primary Care Provider [phone] Jessica Cortes MD Unavailable [phone] Susana Garay MD Unavailable [phone] Reason for Visit * Reason Comments Medication Refill Encounter Details Date Type Department Care Team (Late st Contact Info) Description 09/14/2023 Refill [facility] [address] [place] [address] Jessica Cortes MD [address] [place] [address] Medication Refill Social History Tobacco Use Types [...] Filled Start Date End Date leflunomide (ARAVA) 10 mg Oral TabletIndications: Rheumatoid arthritis involving multiple sites with positive rheumatoid factor (HCC) TAKE 1 TABLET BY MOUTH EVERY DAY 30 Tablet 1 09/15/2023 10/03/2023 documented in this encounter Miscellaneous Notes * Telephone Encounter - Ana An RMA - 09/15/2023 11:09 AM EST last visit:06/20/23 last labs:08/13/23 next visit:10/03/23 chart reviewed: documented in this encounter Plan of Treatment Upcoming Encounters Date Type Department Care Team (Late st Contact Info) Description 08/31/2024 8:30 AM EST Appointment [facility] [address] [place] [address] 10/25/2024 10:45 AM EST Office Visit [facility] [address] [facility] [address] [place] [address] Jessica Cortes MD [address] [facility] [address] [place] [address] 01/25/2025 9:00 AM EDT Appointment [address] [address] [place] [address] 05/09/2025 11:00 AM EDT Appointment [address] [place] [address] 05/09/2025 11:15 AM EDT Appointment [address] [place] [address] Susana Garay MD [address] [place] [address] [address] [id number] documented as of this encounter Goals Goal Patient Goal Type Associated Problems Recent Progress Patient-Stated? 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, RN documented as of this encounter Visit Diagnoses Diagnosis Rheumatoid arthritis involving multiple sites with positive rheumatoid factor (HCC) documented in this encounter Care Teams Bed And Breakfast Innkeeper Relationship Specialty Start Date End Date Julisa Kerr MD [address] [place] [address] PCP - General 02/22/11 Jessica Cortes MD [address] [facility] [address] [place], [place] [id number] Internal Medicine-Rheumatology 04/26/16 Susana Garay MD [address] [place] [address] [place] [address] Medical Oncologist Internal Medicine-Hematology and Oncology 10/14/22 documented as of this encounter
--- OUTSIDE RECORDS SUMMARY | 2024-08-22 21:39 | XMS_ITS | Encounter Summary ---
Author Organization [place] [address] Care Team Providers Care Group Dynamics Instructor Name Role Phone Julisa Kerr MD Primary Care Provider [phone] Jessica Cortes MD Unavailable [phone] Susana Garay MD Unavailable [phone] Reason for Visit * Reason Comments Medication Refill Encounter Details Date Type Department Care Team (Late st Contact Info) Description 08/26/2023 Refill [facility] [address] [place] [address] Jessica Cortes MD [address] [facility] Building [address] [place] [address] Medication Refill Social History Tobacco Use Types [...] ML ONCE A WEEK. 4 mL 1 08/26/2023 4 documented in this encounter Miscellaneous Notes * Telephone Encounter - Ana An RMA - 08/26/2023 8:14 AM EST last visit:06/20/23 last labs:08/13/23 next visit:10/03/23 chart reviewed: Restarted MTX 15 mg SQ weekly 10/2019. documented in this encounter Plan of Treatment Upcoming Encounters Date Type Department Care Team (Late st Contact Info) Description 08/31/2024 8:30 AM EST Appointment [facility] [address] [place] [address] 10/25/2024 10:45 AM EST Office Visit [facility] [address] [facility] [address] [place] [address] Jessica Cortes MD [address] [facility] [address] [place] [address] 01/25/2025 9:00 AM EDT Appointment [address] [address] [place] [address] 05/09/2025 11:00 AM EDT Appointment [address] [place] [address] 05/09/2025 11:15 AM EDT Appointment [address] [place] [address] Susana Garay MD [address] [place] [address] documented as of this encounter Goals Goal [...] THE SKIN) 0.8 ML ONCE A WEEK. 07/31/2023 08/26/2023 documented as of this encounter Care Teams Group Dynamics Instructor Relationship Specialty Start Date End Date Julisa Kerr MD [address] [place] [address] PCP - General 02/22/11 Jessica Cortes MD [address] [address] Internal Medicine-Rheumatology 04/26/16 Susana Garay MD [address] [place] [address] [place] [address] Medical Oncologist Internal Medicine-Hematology and Oncology 10/14/22 documented as of this encounter
--- OUTSIDE RECORDS SUMMARY | 2024-08-22 21:39 | XMS_ITS | Encounter Summary ---
Author Organization [facility] Address [address] [place] [address] Care Team Providers Care Wind Tunnel Engineer Name Role Phone Julisa Kerr MD Primary Care Provider [phone] Jessica Cortes MD Unavailable [phone] Susana Garay MD Unavailable [phone] Reason for Visit * Reason Onset Date Comments Medication Refill 09/04/2023 Encounter Details Date Type Department Care Team (Late st Contact Info) Description 09/04/2023 Refill [facility] [address] [id number] Brianna Rubalcava NP [address] [place] [address] Medication Refill Social History Tobacco Use Types [...] Dillon Levy MA documented in this encounter Ordered Prescriptions Prescription Sig Dispense Quantity Refills Last Filled Start Date End Date oxyCODONE (ROXICODONE) 5 mg Oral TabletIndications: S/P total knee arthroplasty, right Take 1 Tablet by mouth 2 times daily. 20 Tablet 09/04/2023 12/08/2023 documented in this encounter Plan of Treatment Upcoming Encounters Date Type Department Care Team (Late st Contact Info) Description 08/31/2024 8:30 AM EST Appointment [address] [address] [place] [address] 10/25/2024 10:45 AM EST Office Visit [facility] [address] [facility] [address] [place] [address] Jessica Cortes MD [address] [facility] Building [address] [place] [address] 01/25/2025 9:00 AM EDT Appointment [facility] [place] [address] 05/09/2025 11:00 AM EDT Appointment [facility] [place] [address] 05/09/2025 11:15 AM EDT Appointment [facility] [place] [address] Susana Garay MD [address] [facility] [address] [place] [id number] documented as of this encounter Goals Goal Patient Goal Type Associated Problems Recent Progress Patient-Stated? Author Maintain a healthy diet, exercise regularly and maintain an ideal body weight General Porsche Ashley, RN documented as of this encounter Visit Diagnoses Diagnosis S/P total knee arthroplasty, right- Primary documented in this encounter Care Teams Wind Tunnel Engineer Relationship Specialty Start Date End Date Julisa Kerr MD [address] [place] [id number] PCP - General 02/22/11 Jessica Cortes MD [address] [place] [address] Internal Medicine-Rheumatology 04/26/16 Susana Garay MD [address] [place] [address] [place] [address] Medical Oncologist Internal Medicine-Hematology and Oncology 10/14/22 documented as of this encounter
--- OUTSIDE RECORDS SUMMARY | 2024-08-22 21:39 | XMS_ITS | Encounter Summary ---
Author Organization [facility] [place] [address] Care Team Providers Care Grain Merchandiser Name Role Phone Julisa Kerr MD Primary Care Provider [phone] Jessica Cortse MD Unavailable [phone] Susana Garay MD Unavailable [phone] Encounter Details Date Type Department Care Team (Latest Contact Info) Description 09/17/2023 Travel Social History Tobacco Use Types Packs/Day [...] Description 08/31/2024 8:30 AM EST Appointment [address] [place] [address] 10/25/2024 10:45 AM EST Office Visit [facility] [address] [place] [address] Jessica Cortes MD [address] [place] [address] 01/25/2025 9:00 AM EDT [address]ointment [address] [address] 05/09/2025 11:00 AM EDT [address]ointment [address] [place] [address] 05/09/2025 11:15 AM EDT [address]ointment [address] [place] [address] Susana Garay MD [address] [place] [address] [place] [address] documented as of this encounter Goals Goal Patient Goal Type Associated Problems Recent Progress Patient-Stated? 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, RN documented as of this encounter Visit Diagnoses Not on filedocumented in this encounter Care Teams Grain Merchandiser Relationship Specialty Start Date End Date Julisa Kerr MD [address] [place] [address] PCP - General 02/22/11 Jessica Cortes MD [address] [address] Internal Medicine-Rheumatology 04/26/16 Susana Garay MD [address] [place] [address] Medical Oncologist Internal Medicine-Hematology and Oncology 10/14/22 documented as of this encounter
--- OUTSIDE RECORDS SUMMARY | 2024-08-22 21:39 | XMS_ITS | Encounter Summary ---
Author Organization [place] [address] Care Team Providers Care Corporate Administrator Name Role Phone Julisa Kerr MD Primary Care Provider [phone] Jessica Cortes MD Unavailable [phone] Susana Garay MD Unavailable [phone] Reason for Visit * Reason Comments Follow-up Rheumatoid arthritis involving multiple sites with positive rheumatoid factor (HCC)Raynaud's phenomenon without gangrenePositive BRET (antinuclear antibody)Sicca syndrome (HCC)Neck painAge-related osteoporosis without current pathological fracturePostmenopausal stateImmunocompromised patient (HCC)Therapeutic drug monitoringTuberculosis screeningAntiphospholipid syndrome (HCC) Encounter Details Date Type Department Care Team (Latest Contact Info) Description 10/03/2023 10:15 AM EST Office Visit [facility] [address] [place] [address] Jessica Cortes MD [address] [facility] [address] [id number] Rheumatoid arthritis involving multiple sites with positive rheumatoid factor (HCC) (Primary Dx); Raynaud's phenomenon without gangrene; Positive BRET (antinuclear antibody); Sicca syndrome (HCC); Neck pain; Age-related osteoporosis without current pathological fracture; Postmenopausal state; Immunocompromised patient (HCC); Trochanteric bursitis of left hip; Therapeutic drug monitoring; Tuberculosis screening; Antiphospholipid syndrome (HCC) Social History Tobacco Use Types Packs/Day Years [...] Sign Reading Time Taken Comments Blood Pressure 140/89 10/03/2023 10:25 AM EST Pulse 93 10/03/2023 10:25 AM EST Temperature - - Respiratory Rate 16 10/03/2023 10:25 AM EST Oxygen Saturation - - Inhaled Oxygen Concentration - - Weight 61.3 kg (135 lb 3.2 oz) 10/03/2023 10:25 AM EST Height 160 cm (5' 3 ) 10/03/2023 10:25 AM EST Body Mass Index 23.95 10/03/2023 10:25 AM EST documented in this encounter Functional Status [...] End Date leflunomide (ARAVA) 20 mg Oral TabletIndications :Rheumatoid arthritis involving multiple sites with positive rheumatoid factor (HCC) Take 1 Tablet by mouth daily. 30 Tablet 1 10/03/2023 4 golimumab (SIMPONI) 100 mg/mL SubQ Pen InjectorIndicatio ns:Rheumatoid arthritis involving multiple sites with positive rheumatoid factor (HCC) Inject 1 pen under the skin every 30 days. 1 mL 2 12/04/2023 1:11 PM EST 10/03/2023 4 predniSONE (DELTASONE) 5 mg Oral TabletIndications :Rheumatoid arthritis involving multiple sites with positive rheumatoid factor (HCC) Take 1 Tablet by mouth daily. 30 Tablet 10/03/2023 4 methotrexate sodium 25 mg/mL Inj SolutionIndicatio ns:Rheumatoid arthritis involving multiple sites with positive rheumatoid factor (HCC) Subcutaneous (Inject under the skin) 0.8 mL once a week. 4 mL 1 10/03/2023 4 documented in this encounter Progress Notes * Jessica Cortes MD - 10/03/2023 10:15 AM EST Subjective Subjective: Patient ID: Yuliet Trevino is a 52 y.o. female. Chief Complaint Patient presents with Follow-up Rheumatoid arthritis involving multiple sites with positive rheumatoid factor (HCC) Raynaud's phenomenon without gangrene Positive BRET (antinuclear antibody) Sicca syndrome (HCC) Neck pain Age-related osteoporosis without current pathological fracture Postmenopausal state Immunocompromised patient (HCC) Therapeutic drug monitoring Tuberculosis screening Antiphospholipid syndrome (HCC) HPI The patient comes in for follow up regarding RA. Symptoms started in 2002. Seen by Gate Manager, Dr. Astorga. She was seen in [facility] but have not seen her in [...] mild pain- 3/10, mild swelling. Today's visit: Higher Arava dose messes up with her stomach. Joint pain has improved but she continues to have issues. Pain in the hands, left hip, knees, right foot, ankles. Left hip bothers her with changes of position- from sitting to standing and vise versa. It hurts with walking. Certain days are worse than others. Right knee replaced 08/22/[address] Clifton and it feels great. Joint swelling: knuckles Dry eyes - stable. Uses eye drops. Dry mouth - not much Type of pain: ache Morning stiffness: up to 20 minutes. Raynaud's: worsened in the cold weather. Current therapy: MTX 15 mg weekly, Arava 20 mg daily, Simponi 100 mg sq q month started around 02/10/22, folic acid 1 mg daily, Fosamax 70 mg weekly Previous therapy: Tylenol, Codeine, Darvocet, Motrin, Naproxen, [...] 200 mg BID, stopped due to nausea Patients past medical, family and social histories [...] MOUTH EVERY DAY NEEDED 90 Tablet 3 gabapentin (NEURONTIN) 600 mg Oral Tablet Take 1 Tablet by mouth nightly. 30 Tablet 2 hydrOXYzine (ATARAX) 25 mg Oral Tablet TAKE 1 TABLET BY MOUTH THREE TIMES A DAY NEEDED 90 Tablet2 oxyCODONE-acetaminophen (PERCOCET) 5-325 mg Oral Tablet Take 1 Tablet by mouth every 6 hours as needed for Acute Pain > 3 Days Medically Necessary (R52). 20 Tablet 0 azithromycin (ZITHROMAX) 250 mg Oral Tablet Take 2 tablets (500 mg) on Day 1, followed by 1 tablet (250 mg) once daily on Days 2 through 5. 6 Tablet 0 oxyCODONE (ROXICODONE) 5 mg Oral Tablet Take 1 Tablet by mouth 2 times daily. 20 Tablet 0 No current facility-administered medications on [...] reviewed and are negative. Objective Objective: Vitals: 10/03/23 1025 BP: 140/89 Pulse: 93 Resp: 16 Weight: 135 lb 3.2 oz (61.3 kg) Height: 5' 3 (1.6 m) Body mass index is 23.95 kg/m??. Physical Exam Constitutional: Appearance: She is well-developed. HENT: Head: Normocephalic and atraumatic. Musculoskeletal: Comments: Synovitis in the wrists, minimal on right, mild on left, minimal in the 2nd, 5th right MCP, moderate synovitis in the 1st, 2nd, 5th left MCP, 3rd left PIP. Tenderness to the wrists, 1st, 2nd, 5th left MCP, 3rd left PIP. 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 ROM of the hips intact, pain at the left trochanteric bursa and in the left gluteus during the ROM exam. Neurological: Mental Status: She is alert. Psychiatric: Mood and Affect: Mood normal. Rapid 3: 17.8 Lab Results Component Value Date WBC 14.6 (H) 08/13/2023 HGB 13.0 08/13/2023 HCT 42.7 08/13/2023 MCV 90.1 08/13/2023 PLT 362 08/13/2023 Chemistry Component Value Date/Time NA 136 08/13/2023 1152 NA 138 11/23/2019 0000 K 3.7 08/13/2023 1152 K 4.6 11/23/2019 0000 CL 100 08/13/2023 1152 CL 102 11/23/2019 0000 CO2 24 08/13/2023 1152 CO2 27 11/23/2019 0000 BUN 8 08/13/2023 1152 BUN 11 11/23/2019 0000 CREATININE 0.72 08/13/2023 1152 CREATININE 0.7 11/23/2019 0000 GLU 154 (H) 08/13/2023 1152 GLU 103 (H) 07/01/2017 1532 Component Value Date/Time CALCIUM 9.3 08/13/2023 1152 CALCIUM 9.60 11/23/2019 0000 ALKPHOS 81 08/13/2023 1152 ALKPHOS 112 11/23/2019 0000 AST 16 08/13/2023 1152 AST 20 11/23/2019 0000 ALT 12 08/13/2023 1152 ALT 9 11/23/2019 0000 BILITOT 0.2 11/23/2019 0000 Lab Results Component Value Date CRP 41.11 (H) 08/13/2023 Lab Results Component Value Date SEDRATE 18 08/13/2023 XR KNEE LEFT AP LAT INT EXT [...] Plan: Yuliet Trevino was seen today for follow-up. Diagnoses and all orders for this visit: Rheumatoid arthritis involving multiple sites, with positive rheumatoid factor (HCC) Dx in [address] previously [address]. Astorga in [facility]. Records from [facility] received and reviewed. The patient was seen in 05/11/13 for initial evaluation. Presented with polyarticular joint involvement- large and small joints- shoulders, elbows, knees, wrists, knuckles, toes. Per records she had low titer (+) RF, (-) CCP, (+) BRET centromere pattern > 8.0 with negative SSA/SSB, GUEST RELATIONS REPRESENTATIVE, Scl 70, dsDNA Records indicate she used to see Dr. Armstrogn but was lost to f/u due to [...] month, increased to 100 mg q month Off MTX 20 mg and Arava 10 mg daily due to recent illness. RA very active, started flaring up prior to patient holding MTX and Arava. Limitation of activitiesof the daily leaving due to pain, swelling. Currently on prednisone but continues to have significant synovitis in the joints. Synovitis in thewrists, 2nd, 3rd, 5th right MCP, 1st, 2nd , 3rd left MCP, bilateral knee effusion, R>L. Forbes's cyst bilaterally, more pronounced on the left. Simponi 100 gm q month Continue MTX 15 mg weekly. Arava increased to 20 mg daily 06/20/23 Prednisone 5 mg daily. Symptomatically better. Less synovitis in the exam today in the wrists, minimal on right, mild on left, minimal in the 2nd, 5th right MCP, moderate synovitis in the 1st, 2nd, 5th left MCP, 3rd left PIP Failed Plaquenil 200 mg twice a day, started 06/28/22, lowered to 200 mg daily due to nausea, stopped 12/09/22 S/p right TKA 08/22/[address] Clifton Hepatitis panel checked and negative. Patient should hold therapy while being treated for infections. Patient should not receive live vaccines while on therapy. - methotrexate sodium 25 mg/mL Inj Solution; Subcutaneous (Inject under the skin) 0.8 mL once a week. - predniSONE (DELTASONE) 5 mg Oral Tablet; Take 1 Tablet by mouth daily. - golimumab (SIMPONI) 100 mg/mL SubQ Pen Injector; Inject 1 pen under the skin every 30 days. - leflunomide (ARAVA) 20 mg Oral Tablet; Take 1 Tablet by mouth daily. Raynaud's phenomenon without gangrene Positive BRET (antinuclear antibody) 1:640, centromere pattern Sicca syndrome (HCC) Suspect secondary Sjogren's due to RA. SSA and SSB antibodies negative Advised on behavioral modifications- sugar free gum and candy, frequent fluid intake, eye drops Advised on regular ophthalmology and dental appointments No history of digital ulcerations No other symptoms to suggest CTD Stable Neck pain x rays revealed mild degenerative [...] femoral neck Fosamax 70 mg weekly started 12/09/22 Advised to take Ca/Vit D supplement Immunocompromised patient (HCC) Increased risk for infections due to immunosuppression Prevnar 13 given 12/13/16 Pneumovax 23 given 03/17/17 Trochanteric bursitis of the left hip Left bursa tenderness Advised to continue stretches and topical OTC creams Voltaren gel and topical lidocaine - XR HIP LEFT AP LATERAL W AP PELVIS; Future Therapeutic drug monitoring Tuberculosis screening TB gold negative 03/24/23 Labs every 6-8 weeks while on MTX and Arava to monitor for toxicities. Labs OK 08/13/23. Labs from today pending Antiphospholipid antibody syndrome DVT 04/2022 Elevated d- dimer (+) anti cardiolipin Ab IgM at 72- high positive, persistent Suspect APLS Evaluated by Hem/Onc, Dr. Garay Needs life long anticoagulation. Return in about 3 months (around 01/02/2024). documented in this encounter Plan of Treatment Upcoming Encounters Date Type Department Care Team (Late st Contact Info) Description 08/31/2024 8:30 AM EST Appointment [facility] [address] [place] [address] 10/25/2024 10:45 AM EST Office Visit [facility] [address] [place] [address] Jessica Cortes MD [address] [facility] [address] [place] [address] 01/25/2025 9:00 AM EDT Appointment [place] [address] [place] [id number] 05/09/2025 11:00 AM EDT Appointment [place] [address] [place] [address] 05/09/2025 11:15 AM EDT [address]ointment [address] [place] [address] Susana Garay MD [address] [place] [address] documented as of this encounter Goals Goal [...] 1:28 PM CLINICAL HISTORY: ??M70.62-Trochanteric bursitis, left [id number] COMPARISON: ??05/08/2018 PROCEDURE COMMENTS: ??AP view of [...] 1:28 PM CLINICAL HISTORY: M70.62-Trochanteric bursitis, left [id number] COMPARISON: 05/08/2018 PROCEDURE COMMENTS: AP view of [...] Postmenopausal state Asymptomatic postmenopausal status (age-related) (natural) Immunocompromised patient (HCC) Unspecified immunity deficiency Trochanteric bursitis of left hip Enthesopathy of hip region Therapeutic drug monitoring Encounter for therapeutic drug monitoring Tuberculosis screening Screening examination for pulmonary tuberculosis Antiphospholipid syndrome (HCC) Primary hypercoagulable state Trochanteric bursitis of left hip Enthesopathy of hip region documented in this encounter Discontinued Medications Medication Sig Discontinue Reason Start Date End Da te leflunomide (ARAVA) 10 mg Oral TabletIndications:Rhe umatoid arthritis involving multiple sites with positive rheumatoid factor (HCC) TAKE 1 TABLET BY MOUTH EVERY DAY Cancelled by 09/15/2023 10/03/2023 golimumab (SIMPONI) 100 mg/mL SubQ Pen InjectorIndications:R heumatoid arthritis involving multiple sites with positive rheumatoid factor (HCC) Inject 1 pen under the skin every 30 days. Reorder 06/20/2023 10/03/2023 leflunomide (ARAVA) 20 mg Oral TabletIndications:Rhe umatoid arthritis involving multiple sites with positive rheumatoid factor (HCC) TAKE 1 TABLET BY MOUTH EVERY DAY Reorder 08/22/2023 10/03/2023 methotrexate sodium 25 mg/mL Inj SolutionIndications:R 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 Reorder 08/26/2023 10/03/2023 predniSONE (DELTASONE) 5 mg Oral TabletIndications:Rhe umatoid arthritis involving multiple sites with positive rheumatoid factor (HCC) TAKE 1 TABLET BY MOUTH EVERY DAY Reorder 09/19/2023 10/03/2023 documented as of this encounter Care Teams Corporate Administrator Relationship Specialty Start Date End Date Julisa Kerr MD [address] [place] [address] PCP - General 02/22/11 Jessica Cortes MD [address] [address] Internal Medicine-Rheumatology 04/26/16 Susana Garay MD [address] [place] [address] [place] [address] Medical Oncologist Internal Medicine-Hematology and Oncology 10/14/22 documented as of this encounter
--- OUTSIDE RECORDS SUMMARY | 2024-08-22 21:39 | XMS_ITS | Encounter Summary ---
Author Organization [place] [address] Care Team Providers Care Cardiac Catheterization Technologist Name Role Phone Julisa Kerr MD Primary Care Provider [phone] Jessica Cortes MD Unavailable [phone] Susana Garay MD Unavailable [phone] Reason for Visit * Reason Comments Medication Refill Encounter Details Date Type Department Care Team (Late st Contact Info) Description 09/17/2023 Refill [facility] [address] [place] [address] Jessica Cortes MD [address] [facility] Building [address] [place] [address] Medication Refill Social History Tobacco Use Types [...] Telephone Encounter - Ana An RMA - 09/17/2023 8:17 AM EST last visit:06/20/23 last labs:08/13/23 next visit:10/03/23 chart reviewed: Will increase Arava to 20 mg daily. Too soon to refill; 1 month with an additional refill sent on 09/15/23 documented in this encounter Plan of Treatment Upcoming Encounters Date Type Department Care Team (Late st Contact Info) Description 08/31/2024 8:30 AM EST Appointment [facility] [address] [place] [address] 10/25/2024 10:45 AM EST Office Visit [facility] [address] [facility] [address] [place] [address] Jessica Cortes MD [address] [address] 01/25/2025 9:00 AM EDT [address]ointment [address] [place] [address] 05/09/2025 11:00 AM EDT [address]ointment [address] [place] [address] 05/09/2025 11:15 AM EDT Appointment [address] [place] [address] Susana Garay MD [address] [facility] [address] [place], [place] [id number] documented as of this encounter Goals Goal Patient Goal Type Associated Problems Recent Progress Patient-Stated? 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, RN documented as of this encounter Visit Diagnoses Diagnosis Rheumatoid arthritis involving multiple sites with positive rheumatoid factor (HCC) documented in this encounter Care Teams Cardiac Catheterization Technologist Relationship Specialty Start Date End Date Julisa Kerr MD [address] [place] [address] PCP - General 02/22/11 Jessica Cortes MD [address] [address] Internal Medicine-Rheumatology 04/26/16 Susana Garay MD [address] [place] [address] [place] [address] Medical Oncologist Internal Medicine-Hematology and Oncology 10/14/22 documented as of this encounter
--- OUTSIDE RECORDS SUMMARY | 2024-08-22 21:39 | XMS_ITS | Encounter Summary ---
Author Organization [place] [address] Care Team Providers Care Gas Usage Meter Clerk Name Role Phone Julisa Kerr MD Primary Care Provider [phone] Jessica Cortes MD Unavailable [phone] Susana Garay MD Unavailable [phone] Reason for Visit * Physical Therapy (Routine) - Closed Specialty Diagnoses / Procedures Referred By Contac t Referred To Contact Physical Therapist / Physical Therapy Diagnoses Primary osteoarthritis of right knee Jame Webb PA-C [address] [phone] Phone: tel: fax: Shanta Barroso, PT Referral ID Status Reason Start Date Expiration Date Visits Re quested Visits Authorized [id number] Closed 07/09/2023 07/08/2024 1 12 Encounter Details Date Type Department Care Team (Latest Contact Info) Description 09/09/2023 11:15 AM EST - 09/09/2023 11:59 PM [facility] Hospital Encounter [facility] [place] [address] Shanta Barroso, PT Discharge Disposition: Home or [...] Progress Notes * Shanta Barroso, PT - 09/09/2023 11:15 AM EST Physical Therapy Daily Progress Note 09/09/2023 Yuliet Trevino : 1970 Visit # / Insurance : 3/Medicaid Onset Date: 08/22/23 Diagnosis: Right TKA Precautions: post op MD Follow Up:Etienne Medication Changes: none Reassessment Date/Recert Date: 09/26/23 Next FOTO due: Reassessment Time In/Out: 1124/1204 Pain Scale: 6-7 Location: right knee(s) Type: dull and throbbing Subjective Knee is a little stiff today. Hurting a bit more because of the stiffness and the cold air. HEP: Compliant Objective Enters without AD, FOTO??: [...] sec TKE w/GTB 5 sec x 20 + contralateral november x Standing DF x 20 Treadmill push and pull x 20 each Quad set 5 sec x 10 VMS - 10 sec on/off quad set x 3 min SAQ x 10 reps Total timed treatment: 40 min Total treatment time: 40 min Charges: TE x 3 Assessment Belinda has attended therapy from 08/27/23 to today's date for 3 visits. She contiues to have decreasedquad strength with decreased use of the quad during ambulation. Has improved TKE during gait at endof session. Continues with quad lag with LAQ at edge of table. Plan Continue PT: Plan of care to include Therapeutic exercise (TE), Therapeutic/Functional activity (TA), Neuromuscular Re-Education (NMR), Manual Therapy (MT), Gait Training, Dry Needling (DN) and modalities as needed for patient improvement. Signature: Shanta Barroso, PT Date: 09/09/2023 documented in this encounter Plan of Treatment Upcoming Encounters Date Type Department Care Team (Late st Contact Info) Description 08/31/2024 8:30 AM EST Appointment [address] [address] 10/25/2024 10:45 AM EST Office Visit [facility] [address] [place] [address] Jessica Cortes MD [address] [place] [address] 01/25/2025 9:00 AM EDT Appointment [address] [address] 05/09/2025 11:00 AM EDT Appointment [address] [address] 05/09/2025 11:15 AM EDT Appointment [address] [address] Susana Garay MD [address] [place] [address] documented as of this encounter Goals Goal Patient Goal Type Associated Problems Recent Progress Patient-Stated? 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, RN documented as of this encounter Visit Diagnoses Not on filedocumented in this encounter Care Teams Gas Usage Meter Clerk Relationship Specialty Start Date End Date Julisa Kerr MD [address] [place] [address] PCP - General 02/22/11 Jessica Cortes MD [address] [facility] [address] [place] [address] Internal Medicine-Rheumatology 04/26/16 Susana Garay MD [address] [place] [address] Medical Oncologist Internal Medicine-Hematology and Oncology 10/14/22 documented as of this encounter
--- OUTSIDE RECORDS SUMMARY | 2024-08-22 21:39 | XMS_ITS | Encounter Summary ---
Author Organization [facility] [place] [address] Care Team Providers Care Button Grader Name Role Phone Julisa Kerr MD Primary Care Provider [phone] Jessica Cortes MD Unavailable [phone] Susana Garay MD Unavailable [phone] Reason for Visit * Physical Therapy (Routine) - Closed Specialty Diagnoses / Procedures Referred By Contac t Referred To Contact Physical Therapist / Physical Therapy Diagnoses Primary osteoarthritis of right knee Jame Webb PA-C [address] [id number] Phone: tel: fax: Shanta Barroso, PT Referral ID Status Reason Start Date Expiration Date Visits Re quested Visits Authorized [id number] Closed 07/09/2023 07/08/2024 1 12 Encounter Details Date Type Department Care Team (Latest Contact Info) Description 08/27/2023 11:15 AM EST - 08/27/2023 11:59 PM [facility] Hospital Encounter [facility] [place] [address] Shanta Barroso, PT Discharge Disposition: Home or [...] hydrOXYzine (ATARAX) 25 mg Oral TabletIndications :Itching Take 1 Tablet by mouth 3 times daily as needed. 90 Tablet 2 06/10/2023 09/02/2023 predniSONE (DELTASONE) 5 mg Oral TabletIndications :Rheumatoid arthritis involving multiple sites with positive rheumatoid factor (HCC) Take 1 Tablet by mouth daily. 30 Tablet 2 06/20/2023 09/19/2023 documented as of this encounter Discharge Disposition Disposition Code Departure Means Destination Home or Self Care documented in this encounter Progress Notes * Willian Nayak - 08/27/2023 12:00 PM EST Program_ID:[id number] Access Code: [email or web address] URL: [email or web address] Date: 08-27-2023 Prepared By: Shanta Barroso Program Notes Exercises - Supine Quadricep Sets - 2-3 x daily - x weekly - 3 - 10 - Sitting Heel Slide with Towel - 2-3 x daily - x weekly - 3 - 10 - Long Sitting Calf Stretch with Strap - 2 x daily - x weekly - 3 - - Standing Terminal Knee Extension at Wall with Ball - 2-3 x daily - x weekly - 3 - 10 - Seated Long Arc Quad with Hip Adduction - 2-3 x daily - x weekly - 3 - 10 - Seated Hamstring Stretch - 2-3 x daily - x weekly - 3 - - Heel Toe Raises with Counter Support - 2 x daily - x weekly - 3 - 10 - Standing Ankle Dorsiflexion Stretch on Chair - 2 x daily - x weekly - 1 - 15 * Shanta Barroso, PT - 08/27/2023 11:15 AM EST Images from the original note were not included. Physical Therapy Knee Evaluation 08/27/2023 Visit # [...] stretch Standing PF Standing DF Assessment: Yuliet Marteomis Belinda presents today 5 days after Rt TKR [...] Total treatment time: 32 min Charges: 1 rene starr, TE x 1 Signed: Shanta Barroso, PT Date: 08/27/2023 Physician Name: Jordy Clifton* Date Reviewed: 08/27/2023 Physician Signature: Yuliet Trevino : 1970 [phone] documented in this encounter Plan of Treatment Upcoming Encounters Date Type Department Care Team (Late st Contact Info) Description 08/31/2024 8:30 AM EST Appointment [address] [address] 10/25/2024 10:45 AM EST Office Visit [facility] [address] [place] [address] Jessica Cortes MD [address] [place] [address] 01/25/2025 9:00 AM EDT Appointment [address] [place] [id number] 05/09/2025 11:00 [place] [address] 05/09/2025 11:15 AM EDT Appointment [address] [address] Susana Garay MD [address] [place] [address] documented as of this encounter Goals Goal Patient Goal Type Associated Problems Recent Progress Patient-Stated? 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, RN documented as of this encounter Visit Diagnoses Not on filedocumented in this encounter Care Teams Button Grader Relationship Specialty Start Date End Date Julisa Kerr MD [address] [place] [address] PCP - General 02/22/11 Jessica Cortes MD 651 [facility] 19 [place] [address] Internal Medicine-Rheumatology 04/26/16 Susana Garay MD 1 [place] [address] Medical Oncologist Internal Medicine-Hematology and Oncology 10/14/22 documented as of this encounter
--- OUTSIDE RECORDS SUMMARY | 2024-08-22 21:39 | XMS_ITS | Encounter Summary ---
Author Organization [facility] Address [address] [place] [address] Care Team Providers Care Nurse Practitioner Per Diem Name Role Phone Julisa Kerr MD Primary Care Provider [phone] Jessica Cortes MD Unavailable [phone] Susana Garay MD Unavailable [phone] Reason for Visit * Reason Comments Post-Operative Exam Follow-up Encounter Details Date Type Department Care Team (Late st Contact Info) Description 09/04/2023 2:30 PM EST [facility] [address] [address] Brianna Rubalcava NP [address] [place] [address] S/P total knee arthroplasty, right (Primary Dx) [...] Progress Notes * Brianna Rubalcava NP - 09/04/2023 2:30 PM EST Images from the original note were not included. [address] [phone] ([phone] [place], [place] [phone] [place], [place] Yuliet Trevino 1970 Chief Complaint Patient presents with Right Knee - Post-Operative Exam, Follow-up Subjective: The patient comes in today, now approximately two weeks status post right total knee arthroplasty 08-22-23. They tell me that at this point the pain continues to decrease. There have not been any significant fevers or chills. No wound drainage. The patient is ambulatory without an assisted device. Cautioned about fall risk and arthrotomy incision. They are still taking their DVT prophylaxis, previously prescribed Eliquis. The patient denies any shortness of breath, chest pain, fevers or chills.The patient's medical history is per the chart. She will hold on resuming RA meds. Objective: On physical examination the patient is [...] are reviewed today. These show well positioned right total knee arthroplasty, without evidence of hardware or implant complications. Assessment and Plan: Diagnoses and all orders for this visit: S/P total knee arthroplasty, right - XR KNEE RIGHT AP LATERAL AND SUNRISE STANDING; Future PLAN: At this point the patient [...] theoffice immediately if this were to occur. Continue to ice prn. Tubigrip for support and stability when walking. Suggested use cane when outdoors. Refill Oxycodone 5 mg bid prn. documented in this encounter Plan of Treatment Upcoming Encounters Date Type Department Care Team (Late st Contact Info) Description 08/31/2024 8:30 AM EST Appointment [address] [place] [address] 10/25/2024 10:45 AM EST Office Visit [facility] [address] [place] [address] Jessica Cortes MD [address] [place] [address] 01/25/2025 9:00 AM EDT Appointment [address] [place] [address] 05/09/2025 11:00 AM EDT Appointment [address] [place] [address] 05/09/2025 11:15 AM EDT Appointment [address] [place] [address] Susana Garay MD [address] [place] [address] documented as of this encounter Goals Goal Patient Goal Type Associated Problems Recent Progress Patient-Stated? 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 RN documented as of this encounter Results * XR KNEE RIGHT AP LATERAL AND SUNRISE STANDING (09/04/2023 2:58 PM EST) Narrative Marlen Mistry - 09/04/2023 3:01 PM EST Please see physician's note from office encounter for x-ray imaging result us Brianna Rubalcava EVENT COORDINATOR IMG DIAGNOSTIC IMAGING ORDERABLE S Final Result documented in this encounter Visit Diagnoses Diagnosis S/P total knee arthroplasty, right- Primary S/P total knee arthroplasty, right documented in this encounter Care Teams Nurse Practitioner Per Diem Relationship Specialty Start Date End Date Julisa Kerr MD 100 [place] [address] PCP - General 02/22/11 Jessica Cortes MD [address] [place] [address] Internal Medicine-Rheumatology 04/26/16 Susana Garay MD [address] [place] [address] Medical Oncologist Internal Medicine-Hematology and Oncology 10/14/22 documented as of this encounter
--- OUTSIDE RECORDS SUMMARY | 2024-08-22 21:39 | XMS_ITS | Encounter Summary ---
Author Organization [facility] [place] [address] Care Team Providers Care Sprayer Insecticide Name Role Phone Julisa Kerr MD Primary Care Provider [phone] Jessica Cortes MD Unavailable [phone] Susana Garay MD Unavailable [phone] Encounter Details Date Type Department Care Team (Latest Contact Info) Description 08/27/2023 Travel Social History Tobacco Use Types Packs/Day [...] Info) Description 08/31/2024 8:30 AM EST Appointment [address] [place] [address] 10/25/2024 10:45 AM EST Office Visit [facility] [address] [place] [address] Jessica Cortes MD [address] [place] [address] 01/25/2025 9:00 AM EDT [address]ment [address] [place] [address] 05/09/2025 11:00 AM EDT [address]ment [address] [place] [address] 05/09/2025 11:15 AM EDT [address]ment [address] [place] [address] Susana Garay MD [address] [place] [address] [place] [address] documented as of this encounter Goals Goal Patient Goal Type Associated Problems Recent Progress Patient-Stated? 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, RN documented as of this encounter Visit Diagnoses Not on filedocumented in this encounter Care Teams Sprayer Insecticide Relationship Specialty Start Date End Date Julisa Kerr MD 100 [place] [address] PCP - General 02/22/11 Jessica Cortes MD [address] [address] Internal Medicine-Rheumatology 04/26/16 Susana Garay MD [address] [place] [address] Medical Oncologist Internal Medicine-Hematology and Oncology 10/14/22 documented as of this encounter
--- OUTSIDE RECORDS SUMMARY | 2024-08-22 21:39 | XMS_ITS | Encounter Summary ---
Author Organization [place] [address] Care Team Providers Care Knocker Out Name Role Phone Julisa Kerr MD Primary Care Provider [phone] Jessica Cortes MD Unavailable [phone] Susana Garay MD Unavailable [phone] Encounter Details Date Type Department Care Team (Latest Contact Info) Description 08/13/2023 11:54 AM EST - 08/13/2023 11:59 PM EST Hospital Encounter [facility] [address] [place] [address] Therapeutic drug monitoring Discharge Disposition: [...] TWICE A DAY 90 Tablet 2 05/14/2023 10/07/19 24 hydrOXYzine (ATARAX) 25 mg Oral TabletIndications :Itching Take 1 Tablet by mouth 3 times daily as needed. 90 Tablet 2 06/10/2023 09/02/20 23 methotrexate sodium 25 mg/mL Inj SolutionIndicatio ns:R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 4 mL 07/31/2023 08/26/20 23 predniSONE (DELTASONE) 5 mg Oral TabletIndications :Rheumatoid arthritis involving multiple sites with positive rheumatoid factor (HCC) Take 1 Tablet by mouth daily. 30 Tablet 2 06/20/2023 09/19/20 23 Walker Rolling MISCELLANEOU 1 Device by MISCELLANEOUS route once for 1 dose. Use as directed. 1 Each 08/17/2023 08/17/20 23 documented as of this encounter Discharge Disposition Disposition Code Departure Means Destination Home or Self Care documented in this encounter Plan of Treatment Upcoming Encounters Date Type Department Care Team (Late st Contact Info) Description 08/31/2024 8:30 AM EST Appointment [facility] [address] [address] [place] [address] 10/25/2024 10:45 AM EST Office Visit [facility] [address] [place] [address] Jessica Cortes MD [address] [place] [address] 01/25/2025 9:00 AM EDT Appointment [address] [address] [place] [address] 05/09/2025 11:00 AM EDT Appointment [address] [address] [place] [address] 05/09/2025 11:15 AM EDT Appointment [address] [address] [place] [address] Susana Garay MD [address] [place] [address] [place] [address] documented as of this encounter Goals Goal Patient Goal Type Associated Problems Recent Progress Patient-Stated? 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 RN documented as of this encounter Procedures Procedure Name Priority Date/Time Associated Diagnosis Comments SEDIMENTATION RATE AUTOMATED Routine 08/13/2023 11:52 AM EST Therapeutic drug monitoring CBC WITH DIFF Routine 08/13/2023 11:52 AM EST Therapeutic drug monitoring C-REACTIVE PROTEIN Routine 08/13/2023 11 :52 AM EST Therapeutic drug monitoring COMPREHENSIVE METABOLIC PANEL Routine 08/13/2023 11:52 AM EST Therapeutic drug monitoring documented in this encounter Results * (ABNORMAL) COMPREHENSIVE METABOLIC PANEL (08/13/2023 11:52 AM EST) Sodium 136 136 - 145 mmol/L 08/13/2023 9:37 PM EST [facility] Potassium 3.7 3.5 - 5.0 mmol/L 08/13/2023 9:37 PM EST [facility] Chloride 100 98 - 107 mmol/L 08/13/2023 9:37 PM EST [facility] Total CO2 24 22 - 29 mmol/L 08/13/2023 9:37 PM EST [facility] Anion Gap 12 7 - 16 mmol/L 08/13/2023 9:37 PM EST [facility] Calcium 9.3 8.6 - 10.4 mg/dL 08/13/2023 9:37 PM EST [facility] Glucose Lvl 154(H) 74 - 100 mg/dL 08/13/2023 9:37 PM EST [facility] BUN 8 6 - 20 mg/dL 08/13/2023 9:37 PM EST [facility] Creatinine 0.72 0.51 - 1.30 mg/dL 08/13/2023 9:37 PM EST [facility] Albumin 4.0 3.5 - 5.2 gm/dL 08/13/2023 9:37 PM EST [facility] Total Protein 7.1 6.4 - 8.3 gm/dL 08/13/2023 9:37 PM EST [facility] Bili Total 0.5 0.2 - 1.3 mg/dL 08/13/2023 9:37 PM EST [facility] ALT 12 <=41 U/L 08/13/2023 9:37 PM EST [facility] AST 16 <=40 U/L 08/13/2023 9:37 PM EST [facility] Alk Phos 81 36 - 123 U/L 08/13/2023 9:37 PM EST [facility] eGFR (CKD-EPIcr 2020) 100 >=60 mL/min/1.7 3 m2 08/13/2023 9:37 PM EST [facility] Comment:Estimated GFR was ca lculated using the CKD-EPIcr (2020) equation refit without race. The equation is recommended by the National Kidney Foundation - [place] [employer] of Nephrology Task Force. Blood VENOUS BLOOD / Unknown Venipuncture / Unknown 08/13/2023 11:52 AM EST 08/13/2023 11:52 AM EST us Jessica Cortes MD CHEMISTRY ORDERABLES Siobhan sivan Result [facility] 1 [facility], [address] [place] [id number] [facility] [address] [id number] * (ABNORMAL) CBC WITH DIFF (08/13/2023 11:52 AM EST) WBC 14.6(H) 3.7 - 10.3 x10(3)/mcL 08/13/2023 7:21 PM EST [facility] RBC 4.74 3.90 - 5.20 x10(6)/mcL 08/13/2023 7:21 PM EST [facility] Hgb 13.0 11.2 - 15.7 g/dL 08/13/2023 7:21 PM EST [facility] Hct 42.7 34.0 - 45.0 % 08/13/2023 7:21 PM EST [facility] MCV 90.1 80.0 - 100.0 fL 08/13/2023 7:21 PM EST [facility] MCH 27.4 26.0 - 34.0 pg 08/13/2023 7:21 PM EST [facility] MCHC 30.4(L) 30.7 - 35.5 g/dL 08/13/2023 7:21 PM EST [facility] RDW 18.6(H) <=14.9 % 08/13/2023 7:21 PM EST [facility] Platelet 362 155 - 369 x10(3)/mcL 08/13/2023 7:21 PM EST [facility] MPV 10.9 8.8 - 12.5 fL 08/13/2023 7:21 PM EST [facility] Neut Percent 77.0 % 08/13/2023 7:21 PM EST [facility] Comment:Neutrophils equals s egs plus bands Imm Gran% 0.9 % 08/13/2023 7:21 PM EST [facility] Comment:Automated count of m etamyelocytes, myelocytes and promyelocytes. Lymph Percent 8.7 % 08/13/2023 7:21 PM EST [facility] [place] Percent 11.8 % 08/13/2023 7:21 PM EST [facility] Eos Percent 1.1 % 08/13/2023 7:21 PM EST [facility] Baso Percent 0.5 % 08/13/2023 7:21 PM EST [facility] Neut # 11.2(H) 1.6 - 6.1 x10(3)/mcL 08/13/2023 7:21 PM EST [facility] Comment:Neutrophils equals s egs plus bands IMMGRAN# 0.1 0.0 - 0.1 x10(3)/mcL 08/13/2023 7:21 PM EST [facility] Comment:Automated count of m etamyelocytes, myelocytes and promyelocytes. An absolute IG <0.1 is reported as 0.0. Lymph # 1.3 1.2 - 3.9 x10(3)/mcL 08/13/2023 7:21 PM EST [facility] [place] # 1.7(H) 0.3 - 0.9 x10(3)/mcL 08/13/2023 7:21 PM EST [facility] Eos# 0.2 0.0 - 0.5 x10(3)/mcL 08/13/2023 7:21 PM EST [facility] Baso # 0.1 0.0 - 0.1 x10(3)/mcL 08/13/2023 7:21 PM EST [facility] Blood VENOUS BLOOD / Unknown Venipuncture / Unknown 08/13/2023 11:52 AM EST 08/13/2023 11:52 AM EST us Jessica Cortes MD HEMATOLOGY ORDERABLES Fin al Result [facility] 1 [facility] , [address] [place], [place] [id number] * (ABNORMAL) C-REACTIVE PROTEIN (08/13/2023 11:52 AM EST) Pathologist [facility] CRP 41.11(H) <=5.00 mg/L 08/13/2023 9:36 PM EST [facility] Blood VENOUS BLOOD / Unknown Venipuncture / Unknown 08/13/2023 11:52 AM EST 08/13/2023 11:52 AM EST Jessica Cortes MD CHEMISTRY ORDERABLES Siobhan l Result [facility] [employer] [address] , [place] [address] * SEDIMENTATION RATE AUTOMATED (08/13/2023 11:52 AM EST) Pathologist [facility] Sed Rate 18 0 - 30 mm/hr 08/13/2023 7:21 PM EST [facility] Blood VENOUS BLOOD / Unknown Venipuncture / Unknown 08/13/2023 11:52 AM EST 08/13/2023 11:52 AM EST Jessica Cortes MD HEMATOLOGY ORDERABLES Fin al Result [facility] [address], [place] [address] documented in this encounter Visit Diagnoses Diagnosis Therapeutic drug monitoring Encounter for therapeutic drug monitoring documented in this encounter Care Teams Knocker Out Relationship Specialty Start Date End Date Julisa Kerr MD [address] [place] [address] PCP - General 02/22/11 Jessica Cortes MD [address] [id number] Internal Medicine-Rheumatology 04/26/16 Susana Garay MD [address] [facility] [place] [address] Medical Oncologist Internal Medicine-Hematology and Oncology 10/14/22 documented as of this encounter
--- OUTSIDE RECORDS SUMMARY | 2024-08-22 21:39 | XMS_ITS | Encounter Summary ---
Author Organization [place] [address] Care Team Providers Care Amortization Clerk Name Role Phone Julisa Kerr MD Primary Care Provider [phone] Jessica Cortes MD Unavailable [phone] Susana Garay MD Unavailable [phone] Encounter Details Date Type Department Care Team (Late st Contact Info) Description 08/27/2023 4:15 PM EST Telemedicine [facility] [address] [place] [address] Julisa Kerr MD [address] [place] [address] Epistaxis (Primary Dx); Immunocompromised patient (HCC); Rheumatoid arthritis involving multiple sites with positive rheumatoid factor (HCC) Social History Tobacco Use Types Packs/Day [...] End Date azithromycin (ZITHROMAX) 250 mg Oral Tablet Take 2 tablets (500 mg) on Day 1, followed by 1 tablet (250 mg) once daily on Days 2 through 5. 6 Tablet 08/27/2023 4 documented in this encounter Progress Notes * Julisa Kerr MD - 08/27/2023 4:15 PM EST Patient presented today for routine care follow-up through a video visit. Patient has reviewed the terms and conditions of service as part of the registration for today's visit. A video visit does not replace a [id number] exam and further services may be necessary. We are conducting her video visit in a private space and this video visit is being conducted in accordance with state telehealth/video visit regulations. HPI: had a bad nose bleed due to dry air and it ran in her lung and she is still coughing up old blood. Is on eliquis. Review of Systems Constitutional: Negative. HENT: Positive for nosebleeds. Respiratory: Negative for cough and wheezing. Cardiovascular: Negative. Gastrointestinal: Negative. Genitourinary: Negative. Musculoskeletal: Positive for arthralgias. Neurological: Negative. Psychiatric/Behavioral: Negative. Exam: Constitutional: NAD, appropriately [...] Diagnoses and all orders for this visit: Epistaxis Immunocompromised patient (HCC) (Chronic) Rheumatoid arthritis involving multiple sites with positive rheumatoid factor (HCC) (Chronic) Other orders - azithromycin (ZITHROMAX) 250 mg Oral Tablet; Take 2 tablets (500 mg) on Day 1, followed by 1 tablet (250 mg) once daily on Days 2 through 5. Dispense: 6 Tablet; Refill: 0 Followup if persists documented in this encounter Plan of Treatment Upcoming Encounters Date Type Department Care Team (Late st Contact Info) Description 08/31/2024 8:30 AM EST Appointment [address] [address] [place] [address] 10/25/2024 10:45 AM EST Office Visit [facility] [address] [facility] [address] [place] [address] Jessica Cortes MD [address] [facility] [address] [place] [address] 01/25/2025 9:00 AM EDT Appointment [address] [address] [place] [address] 05/09/2025 11:00 AM EDT Appointment [address] [place] [address] 05/09/2025 11:15 AM EDT Appointment [facility] [place] [address] Susana Garay MD [address] [facility] [address] documented as of this encounter Goals Goal Patient Goal Type Associated Problems Recent Progress Patient-Stated? 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 Reorder 08/06/2023 08/27/2023 documented as of this encounter Care Teams Amortization Clerk Relationship Specialty Start Date End Date Julisa Kerr MD [address] [place] [address] PCP - General 02/22/11 Jessica Cortes MD [address] [address] Internal Medicine-Rheumatology 04/26/16 Susana Garay MD [address] [facility] [address] Medical Oncologist Internal Medicine-Hematology and Oncology 10/14/22 documented as of this encounter
--- OUTSIDE RECORDS SUMMARY | 2024-08-22 21:39 | XMS_ITS | Encounter Summary ---
Author Organization [facility] Address [address] [place] [address] Care Team Providers Care Therapist Speech Name Role Phone Julisa Kerr MD Primary Care Provider [phone] Jessica Cortes MD Unavailable [phone] Susana Garay MD Unavailable [phone] Reason for Visit * Reason Onset Date Comments Patient Question 09/11/2023 Medication Problem 09/11/2023 Encounter Details Date Type Department Care Team (Late st Contact Info) Description 09/11/2023 Telephone [facility] [address] [facility] [address] [place] [address] Rosibel Guo MA Patient Question; Medication Problem Social History Tobacco Use Types Packs/Day Years [...] Telephone Encounter - Rosibel Guo MA - 09/11/2023 8:47 AM EST LVM for patient to let her know that we did not receive a PA from her pharmacy for her pain medication. Please let her know that I reached out to the pharmacy and they are going to try and resend this, but let her know that she is able to pay out of pocket for this that way she will not have to wait until the PA is done. documented in this encounter Plan of Treatment Upcoming Encounters Date Type Department Care Team (Late st Contact Info) Description 08/31/2024 8:30 AM EST Appointment [facility] [address] [address] 10/25/2024 10:45 AM EST Office Visit [facility] [address] [facility] [address] [place] [address] Jessica Cortes MD [address] [address] 01/25/2025 9:00 AM EDT Appointment [place] [address] [place] [address] 05/09/2025 11:00 AM EDT Appointment [place] [address] [place] [address] 05/09/2025 11:15 AM EDT Appointment [place] [address] [place] [address] Susana Garay MD [address] [place] [address] [address] [place] [phone] documented as of this encounter Goals Goal Patient Goal Type Associated Problems Recent Progress Patient-Stated? 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, RN documented as of this encounter Visit Diagnoses Not on filedocumented in this encounter Care Teams Therapist Speech Relationship Specialty Start Date End Date Julisa Kerr MD [address] [place] [address] PCP - General 02/22/11 Jessica Cortes MD [address] [address] Internal Medicine-Rheumatology 04/26/16 Susana Garay MD [address] [facility] [place] [address] Medical Oncologist Internal Medicine-Hematology and Oncology 10/14/22 documented as of this encounter
--- OUTSIDE RECORDS SUMMARY | 2024-08-22 21:39 | XMS_ITS | Encounter Summary ---
Author Organization [place] [address] Care Team Providers Care Boxer Operator Name Role Phone Julisa Kerr MD Primary Care Provider [phone] Jessica Cortes MD Unavailable [phone] Susana Garay MD Unavailable [phone] Encounter Details Date Type Department Care Team (Late st Contact Info) Description 08/14/2023 Plan of Care Documentation [facility] Physical Therapy [place] [phone] Social History Tobacco Use Types Packs/Day Years [...] of Care - Shanta Barroso, PT - 08/14/2023 2:35 PM EST Images from the original note were not included. Please sign to acknowledge agreement with this updated plan of care. Physical Therapy Knee Evaluation 08/13/2023 Visit # / Insurance : 1/Medicaid Onset Date: 1 year pain Diagnosis: Prehab TKR - Rt Precautions: left hip pain, left knee pain Referring Provider Follow Up: Etienne , 08/22/23 Subjective: Yuliet Trevino is a 52 y.o., female, referred by Etienne . Primary complaint: Reports she is having a knee replacement on 08/22/23. Reports her knee started bothering her about a year or so ago. Both knees are bad and will have to be replaced, just doing theright knee first. Also has pain in her left knee and left hip. Pain scale: 4/10 Location: right knee Type: aching Left hip: 10 Sensation/Neurovascular: WFL Diagnostic Tests: see EPIC Have you received any Speech or Physical therapy this year? No Are you currently receiving any Home Health services? No Any problems with speech, communication, memory? No Barriers to learning? No Recent falls? No 2 steps to get into her house. 12 steps to basement - laundry and food pantry are downstairs. 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 30 Tablet 1 methotrexate sodium 25 mg/mL Inj Solution SUBCUTANEOUS (INJECT UNDER THE SKIN) 0.8 ML ONCE A WEEK. 4 mL 0 oxyCODONE-acetaminophen (PERCOCET) 5-325 mg Oral Tablet [...] [adalimumab], Mobic [meloxicam], Tocilizumab, and Xeljanz [tofacitinib] Observation: Body Composition: 63, 132 Assistive Devices: enters without AD, uses Standard walker at times in clinic with education Bracing: none Skin integrity: Intact Posture: genu valgumbilateral and Flexed Kneebilateral Gait: bilateral decreased knee extension, keeps her knee in a flexed position, Trendelenburg Objective: FOTO no fOTO due to pre-hab Palpation: generalized tenderness RIGHT knee AROM: 5-0-148 LEFT knee AROM: 3-0-148 Knee Reference Range 10-0-135 degrees HS Flexibility Ref. Range (90*/90*) 0-20* from straight IPSILATERAL Hip AROM: grossly WFL IPSILATERAL Ankle AROM: grossly WFL STRENGTH LEFT RIGHT Extension (quadriceps; L3-4) /5 4/5 Flex (Hamstring) /5 4/5 Hip Flexion (L2 - 3 4/5 4/5 Hip Extension (Gluteal Muscles) N/A N/A Hip Abduction /5 5/5 Hip IR / 4/5 Hip ER / 4/5 Anterior Tibialis (L5) / 5/5 Gastroc (S1-2) 5/ 5/5 Neuro Screen: SLR: Negative Light touch to dermatomes: normal Special Tests No special testing due to pre-hab Treatment today included: Evaluation, HEP education, Therapeutic exercise and Education Response to Treatment: No change in pain or function Response to HEP Instruction/Patient Education: Instruction/patient education, Verbalized understanding Therapeutic exercise (TE) x 15 min Exercises Standing TKE LAQ with hip add Quad set SLR SLR w/ER Bridge with ball squeeze Heel slide Hamstring stretch Calf stretch Therapeutic activity x 10 min - Going Up and Down Stairs With Two Rails After Surgery - Education on RW and advancement of walker - Education on HEP importance Assessment: Yuliet Trevino is a 52 y.o. year old female who presents today with a history of right knee pain and is scheduled for total knee replacement on 08/22/23. She presented to therapy today for education on exercises before and after surgery, and to get pre-op measurements. Time was taken today toeducate Belinda on sequencing of walking with the use of a walker, also discussed the pros and cons of a 2WW versus standard walker. PT recommended use of 2WW if this is available to her after surgery. She was also educated on how to perform stairs, with the good leg leading for ascent, and bad leg leading for descent. Today Belinda demonstrated difficulty activating her right quad muscle. She was given an HEP to work on her quad strength as well as global strength and tissue extensibility of the knee to perform prior to surgery and immediately after surgery. PT educated her on importance of improving quad activation and strength prior to her surgery. At this time no follow ups will be scheduled with Belinda prior to surgery. She will be scheduled for an evaluation to assess post operatively and for follow ups. Functional Goals: - no goals set Patient presents with co-morbidities of cardiac disease and musculoskeletal conditions and personalfactors of N/A that may impact patient/family's ability toWork and Perform ADLs. During today's evaluation he/she presented with problem areas in musculoskeletal system, neuromuscular system, activity limitations, and participation restriction that are impacting functional activities and participation (see objective measures for further detail). Due to consistent signs and symptoms, the patient'spresentation is stable at this time.This patient presented today with lowcomplexity. Reference Chart: Co-morbidities & Personal Factors Body system elements Presentation Clinical Decision Making Low Evaluation 0 1-2 Stable / Predictable Low Moderate Evaluation 1-2 3 or more Evolving/ Changing Moderate High Evaluation 3 or more 4 or more Unstable/ Unpredictable High Plan: Patient will not be seen for any follow ups pre-operatively, will be scheduled for post op evaluation and follow ups Plan of care to include Therapeutic exercise (TE), Therapeutic/Functional activity (TA), Neuromuscular Re-Education (NMR), Manual Therapy (MT), Gait Training, and modalities as needed for patient improvement. This evaluation to serve as D/C summary, if the patient doesn't return for further treatment. Time In: 1040 Time Out: 1120 Total timed treatment: 25 min Total treatment time: 40 min Charges: 1 low eval, TE x 1, TA x 1 Signed: Shanta Barroso PT Date: 08/13/2023 Physician Name: Jordy Clifton* Date Reviewed: 08/13/2023 Physician Signature: Yuliet Trevino : 1970 [id number] documented in this encounter Plan of Treatment Upcoming Encounters Date Type Department Care Team (Late st Contact Info) Description 08/31/2024 8:30 AM EST Appointment [facility] [address] [place] [address] 10/25/2024 10:45 AM EST Office Visit [facility] [address] [facility] [address] [place] [id number] Jessica Cortes MD 651 [facility] [address] [place] [address] 01/25/2025 9:00 AM EDT Appointment [address] [place] [address] 05/09/2025 11:00 AM EDT Appointment [address] [place] [address] 05/09/2025 11:15 AM EDT Appointment [address] [place] [address] Susana Garay MD 1 [facility] [place] [place] [address] documented as of this encounter Goals Goal Patient Goal Type Associated Problems Recent Progress Patient-Stated? Author Maintain a healthy diet, exercise regularly and maintain an ideal body weight General Porsche Ashley, RN documented as of this encounter Visit Diagnoses Not on filedocumented in this encounter Care Teams Boxer Operator Relationship Specialty Start Date End Date Julisa Kerr MD [address] [place] [address] PCP - General 02/22/11 Jessica Cortes MD [address] [place] [address] [id number] Internal Medicine-Rheumatology 04/26/16 Susana Garay MD [address] [place] [address] [place] [address] Medical Oncologist Internal Medicine-Hematology and Oncology 10/14/22 documented as of this encounter
--- OUTSIDE RECORDS SUMMARY | 2024-08-22 21:39 | XMS_ITS | Encounter Summary ---
Author Organization [facility] Address [address] [place] [address] Care Team Providers Care Lasting Machine Operator Bed Name Role Phone Julisa Kerr MD Primary Care Provider [phone] Jessica Cortes MD Unavailable [phone] Susana Garay MD Unavailable [phone] Reason for Visit * Reason Onset Date Comments Other 09/09/2023 Encounter Details Date Type Department Care Team (Late st Contact Info) Description 09/09/2023 Telephone [place] [phone] Jordy Clifton MD [address] [place] [address] Other Social History Tobacco Use Types Packs/Day [...] encounter Miscellaneous Notes * Telephone Encounter - Brianna Rubalcava NP - 09/10/2023 1:00 PM EST Don't see PA request??? She can pay dinero until we get the PA if she wants. * Telephone Encounter - Steph Johnson MA - 09/09/2023 4:27 PM ESTSummary: Patient Call Patient called in stating her Oxycodone needs a PA. Pharmacy states they will not refill prescription without the PA. Please contact patient with any questions or concerns. Thank you. documented in this encounter Plan of Treatment Upcoming Encounters Date Type Department Care Team (Late st Contact Info) Description 08/31/2024 8:30 AM EST Appointment [facility] [address] [place] [address] 10/25/2024 10:45 AM EST Office Visit [facility] [address] [facility] [address] [place] [address] Jessica Cortes MD 651 [facility] 19 [place] [address] 01/25/2025 9:00 AM EDT Appointment [address] [place] [address] 05/09/2025 11:00 AM EDT Appointment [address] [place] [address] 05/09/2025 11:15 AM EDT Appointment [address] [place] [address] Susana Garay MD [address] [place] [address] [address] [place] [phone] documented as of this encounter Goals Goal Patient Goal Type Associated Problems Recent Progress Patient-Stated? Author Maintain a healthy diet, exercise regularly and maintain an ideal body weight General Porsche Ashley, RN documented as of this encounter Visit Diagnoses Not on filedocumented in this encounter Care Teams Lasting Machine Operator Bed Relationship Specialty Start Date End Date Julisa Kerr MD [address] [place] [address] PCP - General 02/22/11 Jessica Cortes MD 651 [facility] [address] [place] [address] Internal Medicine-Rheumatology 04/26/16 Susana Garay MD [address] [place] [address] [place] [address] Medical Oncologist Internal Medicine-Hematology and Oncology 10/14/22 documented as of this encounter
--- OUTSIDE RECORDS SUMMARY | 2024-08-22 21:39 | XMS_ITS | Encounter Summary ---
Author Organization [place] [address] Care Team Providers Care Quality Control Head Name Role Phone Julisa Kerr MD Primary Care Provider [phone] Jessica Cortes MD Unavailable [phone] Susana Garay MD Unavailable [phone] Reason for Visit * Reason Comments Medication Refill Encounter Details Date Type Department Care Team (Late st Contact Info) Description 09/18/2023 Refill [facility] [address] [place] [address] Jessica Cortes MD 651 [facility] Building [address] [place] [address] Medication Refill Social History Tobacco Use Types [...] TABLET BY MOUTH EVERY DAY 30 Tablet 09/19/2023 10/03/2023 documented in this encounter Miscellaneous Notes * Telephone Encounter - Ana An RMA - 09/19/2023 8:25 AM EST last visit:06/20/23 last labs:08/13/23 next visit:10/03/23 chart reviewed: Currently on prednisone but continues to have significant synovitis in the joints. Synovitis in thewrists, 2nd, 3rd, 5th right MCP, 1st, 2nd , 3rd left MCP, bilateral knee effusion, R>L. Forbes's cyst bilaterally, more pronounced on the left. Will continue Simponi and MTX. Will increase Arava to 20 mg daily. After prednisone taper the patient will continue prednisone 5 mg daily. Will try to wean off in thefuture. documented in this encounter Plan of Treatment Upcoming Encounters Date Type Department Care Team (Late st Contact Info) Description 08/31/2024 8:30 AM EST Appointment [address] [place] [address] 10/25/2024 10:45 AM EST Office Visit [facility] [address] [place] [address] Jessica Cortes MD [address] [place] [address] 01/25/2025 9:00 AM EDT Appointment [address] [address] 05/09/2025 11:00 AM EDT Appointment [address] [address] 05/09/2025 11:15 AM EDT Appointment [address] [address] Susana Garay MD [address] [place] [address] [place] [address] documented as of this encounter Goals Goal [...] (HCC) Take 1 Tablet by mouth daily. 06/20/2023 09/19/2023 documented as of this encounter Care Teams Quality Control Head Relationship Specialty Start Date End Date Julisa Kerr MD [address] [place], [place] [id number] PCP - General 02/22/11 Jessica Cortes MD 651 [facility] 19 [place] [address] Internal Medicine-Rheumatology 04/26/16 Susana Garay MD [address] [place] [address] Medical Oncologist Internal Medicine-Hematology and Oncology 10/14/22 documented as of this encounter
--- OUTSIDE RECORDS SUMMARY | 2024-08-22 21:40 | XMS_ITS | Encounter Summary ---
Author Organization [place] [address] Care Team Providers Care White Mixing Operator Name Role Phone Julisa Kerr MD Primary Care Provider [phone] Jessica Cortes MD Unavailable [phone] Susana Garay MD Unavailable [phone] Reason for Visit * Reason Comments Pre-op Exam Encounter Details Date Type Department Care Team (Late st Contact Info) Description 08/06/2023 8:30 AM EST Office Visit [facility] [address] [place] [phone] Julisa Kerr MD [address] [place] [address] Pre-op examination (Primary Dx); Chronic pain of right knee; Rheumatoid arthritis involving multiple sites with positive rheumatoid factor (HCC); Immunocompromised patient (HCC); Antiphospholipid syndrome (HCC); Vitamin B 12 deficiency; Therapeutic drug monitoring Social History Tobacco Use Types Packs/Day Years [...] Reading Time Taken Comments Blood Pressure 120/80 08/06/2023 8:46 AM EST Pulse - - Temperature 36.5 ??C (97.7 ??F) 08/06/2023 8:46 AM ES T Respiratory Rate - - Oxygen Saturation - - Inhaled Oxygen Concentration - - Weight 59.9 kg (132 lb) 08/06/2023 8:46 AM EST Height - - Body Mass Index 23.38 06/19/2023 9:06 AM EDT documented in this encounter Functional [...] on Days 2 through 5. 6 Tablet 08/06/2023 3 documented in this encounter Progress Notes * Julisa Kerr MD - 08/06/2023 8:30 AM EST Subjective Preoperative Evaluation Pre-Op physical: Yuliet, a 52 y.o. year old female presents today for a pre-operative consultation at the request of Dr. quevedo for medical clearance and stability of chronic conditions in anticipation of right knee replacement surgery. Subjective Date of surgery: 08/22/23 Procedure: rt knee replacement Surgeon name/location: [facility] H&P to be faxed to: [phone] Recent illnesses: none. Prior surgeries requiring anesthesia? no Prior complications from surgery or anesthesia? no [...] Comments) Enbrel [Etanercept] Itching Humira [Adalimumab] Itching Mobic [Meloxicam] Hives Tocilizumab Other (See Comments) Xeljanz [Tofacitinib] Itching Past Medical History: Diagnosis Date Antiphospholipid syndrome (HCC) Arthritis DVT (deep venous thrombosis) ([facility]) 06/08/2022 Right Past Surgical History: Procedure Laterality Date HYSTEROSCOPY IR 2 LEVEL TRANSFORAMINAL EPIDURAL INJ CERVICAL SPINE 06/2021 BARBIE AND BSO 09/29/2000 Current Outpatient Medications on File Prior to [...] 30 Tablet 2 No current facility-administered medications on file [...] Never Smokeless tobacco: Never Vaping Use Vaping Use: Never used Substance and Sexual Activity Alcohol use: Yes Comment: occasional Drug use: No Sexual activity: Yes Family History Family History Problem Relation Age of Onset Arthritis Father Arthritis Paternal Grandmother Review of Systems Constitutional: Negative for fatigue and fever. HENT: Negative. Respiratory: Negative for cough and wheezing. Cardiovascular: Negative. Gastrointestinal: Negative for abdominal pain and constipation. Endocrine: Negative. Genitourinary: Negative. Musculoskeletal: Positive for arthralgias, gait problem and joint swelling. Skin: Negative. Hematological: Negative. Psychiatric/Behavioral: Negative. Objective Objective BP 120/80 Temp 97.7 ??F (36.5 ??C) Wt 132 lb (59.9 kg) BMI 23.38 kg/m?? Physical Exam Vitals and nursing note reviewed. HENT: Head: Normocephalic. Cardiovascular: Rate and Rhythm: Normal rate. Heart sounds: No murmur heard. Pulmonary: Effort: Pulmonary effort is normal. Breath sounds: No wheezing. Abdominal: Palpations: Abdomen is soft. Tenderness: There is no abdominal tenderness. Musculoskeletal: General: Swelling, tenderness and deformity present. Neurological: General: No focal deficit present. Mental Status: She is alert. Psychiatric: Mood and Affect: Mood normal. Lab Results Component Value Date WBC 12.9 (H) 08/06/2023 HGB 13.0 08/06/2023 HCT 42.2 08/06/2023 PLT 334 08/06/2023 CHOLESTEROL 165 03/24/2023 TRIG 160 (H) 03/24/2023 HDL 41 03/24/2023 LDLCALC 96 03/24/2023 ALT 19 08/06/2023 AST 20 08/06/2023 NA 136 08/06/2023 K 3.7 08/06/2023 CL 99 08/06/2023 CREATININE 0.68 08/06/2023 BUN 11 08/06/2023 CO2 28 08/06/2023 TSH 1.350 09/20/2015 GLUCOSE 83 11/23/2019 GLU 78 08/06/2023 HGBA1C 5.6 06/06/2022 TSHREFLEX 1.130 05/14/2023 VCOS51TK 29.7 (L) 07/01/2017 Results for orders placed or performed in visit on 08/06/23 CBC WITH DIFF Result Value Ref Range WBC 12.9 (H) 3.7 - 10.3 x10(3)/mcL RBC 4.80 3.90 - 5.20 x10(6)/mcL Hgb 13.0 11.2 - 15.7 g/dL Hct 42.2 34.0 - 45.0 % MCV 87.9 80.0 - 100.0 fL MCH 27.1 26.0 - 34.0 pg MCHC 30.8 30.7 - 35.5 g/dL RDW 19.0 (H) <=14.9 % Platelet 334 155 - 369 x10(3)/mcL MPV 11.4 8.8 - 12.5 fL Neut Percent 72.6 % Imm Gran% 0.9 % Lymph Percent 17.1 % [place] Percent 7.0 % Eos Percent 1.5 % Baso Percent 0.9 % Neut # 9.4 (H) 1.6 - 6.1 x10(3)/mcL IMMGRAN# 0.1 0.0 - 0.1 x10(3)/mcL Lymph # 2.2 1.2 - 3.9 x10(3)/mcL [place] # 0.9 0.3 - 0.9 x10(3)/mcL Eos# 0.2 0.0 - 0.5 x10(3)/mcL Baso # 0.1 0.0 - 0.1 x10(3)/mcL COMPREHENSIVE METABOLIC PANEL Result Value Ref Range Sodium 136 136 - 145 mmol/L Potassium 3.7 3.5 - 5.0 mmol/L Chloride 99 98 - 107 mmol/L Total CO2 28 22 - 29 mmol/L Anion Gap 9 7 - 16 mmol/L Calcium 9.7 8.6 - 10.4 mg/dL Glucose Lvl 78 74 - 100 mg/dL BUN 11 6 - 20 mg/dL Creatinine 0.68 0.51 - 1.30 mg/dL Albumin 4.0 3.5 - 5.2 gm/dL Total Protein 7.2 6.4 - 8.3 gm/dL Bili Total 0.4 0.2 - 1.3 mg/dL ALT 19 <=41 U/L AST 20 <=40 U/L Alk Phos 95 36 - 123 U/L eGFR (CKD-EPIcr 2020) 104 >=60 mL/min/1.73 m2 SEDIMENTATION RATE AUTOMATED Result Value Ref Range Sed Rate 31 (H) 0 - 30 mm/hr C-REACTIVE PROTEIN Result Value Ref Range CRP 19.66 (H) <=5.00 mg/L Revised Davies Cardiac Risk Index 1. High [...] all orders for this visit: Pre-op examination - CBC WITH DIFF; Future - COMPREHENSIVE METABOLIC PANEL; Future Chronic pain of right knee - CBC WITH DIFF; Future - COMPREHENSIVE METABOLIC PANEL; Future Rheumatoid arthritis involving multiple sites with positive rheumatoid factor (HCC) - CBC WITH DIFF; Future - COMPREHENSIVE METABOLIC PANEL; Future stable Immunocompromised patient (HCC) stable Antiphospholipid syndrome (HCC) stable Vitamin B 12 deficiency Therapeutic drug monitoring - SEDIMENTATION RATE AUTOMATED - C-REACTIVE PROTEIN Other orders - azithromycin (ZITHROMAX) 250 mg Oral Tablet; Take 2 tablets (500 mg) on Day 1, followed by 1 tablet (250 mg) once daily on Days 2 through 5. Ms. Newsome is at average risk for the proposed surgery. Recommendation: There are no contraindications to surgery . Julisa Kerr MD documented in this encounter Plan of Treatment Upcoming Encounters Date Type Department Care Team (Late st Contact Info) Description 08/31/2024 8:[address] [facility] [address] [place] [address] 10/25/2024 10:45 AM EST Office Visit [facility] [address] [place] [phone] Jessica Cortes MD [address] [facility] [address] [place] [address] 01/25/2025 9:00 AM EDT Appointment [place] [address] [place] [address] 05/09/2025 11:00 AM EDT Appointment [place] [address] [place] [address] 05/09/2025 11:15 AM EDT Appointment [place] [address] [place] [address] Susana Garay MD [address] [place] [address] [place] [address] documented as of this encounter Goals Goal Patient Goal Type Associated Problems Recent Progress Patient-Stated? Author Maintain a healthy diet, exercise regularly and maintain an ideal body weight General Porsche Ashley RN documented as of this encounter Procedures Procedure Name Priority Date/Time Associated Diagnosis Comments SEDIMENTATION RATE AUTOMATED Routine 08/06/2023 9:36 AM EST Therapeutic drug monitoring CBC WITH DIFF Routine 08/06/2023 9:36 AM EST Pre-op examination Chronic pain of right knee Rheumatoid arthritis involving multiple sites with positive rheumatoid factor (HCC) C-REACTIVE PROTEIN Routine 08/06/2023 9: 36 AM EST Therapeutic drug monitoring COMPREHENSIVE METABOLIC PANEL Routine 08/06/2023 9:36 AM EST Pre-op examination Chronic pain of right knee Rheumatoid arthritis involving multiple sites with positive rheumatoid factor (HCC) documented in this encounter Results * (ABNORMAL) C-REACTIVE PROTEIN (08/06/2023 9:36 AM EST) CRP 19.66(H) <=5.00 mg/L 08/06/2023 5:57 PM EST [facility] Blood VENOUS BLOOD / Unknown Venipuncture / Unknown 08/06/2023 9:36 AM EST 08/06/2023 9:36 AM EST us Jessica Cortes MD CHEMISTRY ORDERABLES Siobhan l Result Performing Organization Address [facility] Co de Phone Number [facility], [facility] [address] [facility], [place] [address] * (ABNORMAL) SEDIMENTATION RATE AUTOMATED (08/06/2023 9:36 AM EST) Sed Rate 31(H) 0 - 30 mm/hr 08/06/2023 4:55 PM EST [facility] Blood VENOUS BLOOD / Unknown Venipuncture / Unknown 08/06/2023 9:36 AM EST 08/06/2023 9:36 AM EST Jessica Cortes MD HEMATOLOGY ORDERABLES Fin al Result Performing Organization Address [facility] de Phone Number [facility] [address] [place] [address] * COMPREHENSIVE METABOLIC PANEL (08/06/2023 9:36 AM EST) Pathologist [facility] Sodium 136 136 - 145 mmol/L 08/06/2023 5:57 PM EST [facility] Potassium 3.7 3.5 - 5.0 mmol/L 08/06/2023 5:57 PM EST [facility] Chloride 99 98 - 107 mmol/L 08/06/2023 5:57 PM EST [facility] Total CO2 28 22 - 29 mmol/L 08/06/2023 5:57 PM EST [facility] Anion Gap 9 7 - 16 mmol/L 08/06/2023 5:57 PM EST [facility] Calcium 9.7 8.6 - 10.4 mg/dL 08/06/2023 5:57 PM EST [facility] Glucose Lvl 78 74 - 100 mg/dL 08/06/2023 5:57 PM EST [facility] BUN 11 6 - 20 mg/dL 08/06/2023 5:57 PM EST [facility] Creatinine 0.68 0.51 - 1.30 mg/dL 08/06/2023 5:57 PM EST [facility] Albumin 4.0 3.5 - 5.2 gm/dL 08/06/2023 5:57 PM EST [facility] Total Protein 7.2 6.4 - 8.3 gm/dL 08/06/2023 5:57 PM EST [facility] Bili Total 0.4 0.2 - 1.3 mg/dL 08/06/2023 5:57 PM EST [facility] ALT 19 <=41 U/L 08/06/2023 5:57 PM EST [facility] AST 20 <=40 U/L 08/06/2023 5:57 PM EST [facility] Alk Phos 95 36 - 123 U/L 08/06/2023 5:57 PM EST [facility] eGFR (CKD-EPIcr 2020) 104 >=60 mL/min/1.7 3 m2 08/06/2023 5:57 PM EST [facility] Comment:Estimated GFR was ca lculated using the CKD-EPIcr (2020) equation refit without race. The equation is recommended by the National Kidney [employer] - [place] [employer] Neph[employer] Task Force. Blood VENOUS BLOOD / Unknown Venipuncture / Unknown 08/06/2023 9:36 AM EST 08/06/2023 9:36 AM EST us Julisa Kerr MD CHEMISTRY ORDERABLES Final Res ult [facility], [address] , [address] [place] [id number] [facility] [address] [place] [id number] * (ABNORMAL) CBC WITH DIFF (08/06/2023 9:36 AM EST) WBC 12.9(H) 3.7 - 10.3 x10(3)/mcL 08/06/2023 4:55 PM EST [facility] RBC 4.80 3.90 - 5.20 x10(6)/mcL 08/06/2023 4:55 PM EST [facility] Hgb 13.0 11.2 - 15.7 g/dL 08/06/2023 4:55 PM EST [facility] Hct 42.2 34.0 - 45.0 % 08/06/2023 4:55 PM EST [facility] MCV 87.9 80.0 - 100.0 fL 08/06/2023 4:55 PM EST [facility] MCH 27.1 26.0 - 34.0 pg 08/06/2023 4:55 PM EST [facility] MCHC 30.8 30.7 - 35.5 g/dL 08/06/2023 4:55 PM EST [facility] RDW 19.0(H) <=14.9 % 08/06/2023 4:55 PM EST [facility] Platelet 334 155 - 369 x10(3)/mcL 08/06/2023 4:55 PM EST [facility] MPV 11.4 8.8 - 12.5 fL 08/06/2023 4:55 PM EST [facility] Neut Percent 72.6 % 08/06/2023 4:55 PM EST [facility] Comment:Neutrophils equals s egs plus bands Imm Gran% 0.9 % 08/06/2023 4:55 PM EST [facility] Comment:Automated count of m etamyelocytes, myelocytes and promyelocytes. Lymph Percent 17.1 % 08/06/2023 4:55 PM EST [facility] [place] Percent 7.0 % 08/06/2023 4:55 PM EST [facility] Eos Percent 1.5 % 08/06/2023 4:55 PM EST [facility] Baso Percent 0.9 % 08/06/2023 4:55 PM EST [facility] Neut # 9.4(H) 1.6 - 6.1 x10(3)/mcL 08/06/2023 4:55 PM EST [facility] Comment:Neutrophils equals s egs plus bands IMMGRAN# 0.1 0.0 - 0.1 x10(3)/mcL 08/06/2023 4:55 PM EST [facility] Comment:Automated count of m etamyelocytes, myelocytes and promyelocytes. An absolute IG <0.1 is reported as 0.0. Lymph # 2.2 1.2 - 3.9 x10(3)/mcL 08/06/2023 4:55 PM EST [facility] [place] # 0.9 0.3 - 0.9 x10(3)/mcL 08/06/2023 4:55 PM EST [facility] Eos# 0.2 0.0 - 0.5 x10(3)/mcL 08/06/2023 4:55 PM EST [facility] Baso # 0.1 0.0 - 0.1 x10(3)/mcL 08/06/2023 4:55 PM EST [facility] Blood VENOUS BLOOD / Unknown Venipuncture / Unknown 08/06/2023 9:36 AM EST 08/06/2023 9:36 AM EST us Julisa Kerr MD HEMATOLOGY ORDERABLES Final Re sult [facility] , [place] [address] documented in this encounter Visit Diagnoses Diagnosis Pre-op examination- Primary Preoperative examination, unspecified Chronic pain of right knee Rheumatoid arthritis involving multiple sites with positive rheumatoid factor (HCC) Immunocompromised patient (HCC) Unspecified immunity deficiency Antiphospholipid syndrome (HCC) Primary hypercoagulable state Vitamin B 12 deficiency Other B-complex deficiencies Therapeutic drug monitoring Encounter for therapeutic drug monitoring documented in this encounter Discontinued Medications Medication Sig Discontinue Reason Start Date End Da te predniSONE (DELTASONE) 20 mg Oral TabletIndications:Itch ing 3 tabs po daily for 3 days, then 2 tabs po daily for 3 days then 1 tab daily for 3 days then 1/2 tab daily for 4 days. DELETE-Therapy completed 06/10/2023 08/06/2023 leflunomide (ARAVA) 10 mg Oral TabletIndications:Rheu matoid arthritis involving multiple sites with positive rheumatoid factor (HCC) TAKE 1 TABLET BY MOUTH EVERY DAY DELETE-Therapy completed 07/16/2023 08/06/2023 documented as of this encounter Care Teams White Mixing Operator Relationship Specialty Start Date End Date Utter, Julisa J, MD [address] [place] [address] PCP - General 02/22/11 Jessica Cortes MD [address] [address] Internal Medicine-Rheumatology 04/26/16 Susana Garay MD [address] [place] [address] Medical Oncologist Internal Medicine-Hematology and Oncology 10/14/22 documented as of this encounter
--- OUTSIDE RECORDS SUMMARY | 2024-08-22 21:40 | XMS_ITS | Encounter Summary ---
Author Organization [place] [address] Care Team Providers Care Processing Talc And Borate Supervisor Name Role Phone Julisa Kerr MD Primary Care Provider [phone] Jessica Cortes MD Unavailable [phone] Susana Garay MD Unavailable [phone] Encounter Details Date Type Department Care Team (Latest Contact Info) Description 06/19/2023 3:25 PM EDT - 06/19/2023 11:59 PM EDT Hospital Encounter [facility] [address] [place] [address] Therapeutic drug monitoring; Itching Discharge Disposition: Home or Self Care Social [...] as needed. 90 Tablet 2 06/10/2023 09/02/2023 documented as of this encounter Discharge Disposition Disposition Code Departure Means Destination Home or Self Care documented in this encounter Plan of Treatment Upcoming Encounters Date Type Department Care Team (Late st Contact Info) Description 08/31/2024 8:30 AM EST Appointment [facility] [address] [place] [address] 10/25/2024 10:45 AM EST Office Visit [facility] [address] [facility] [address] [place] [address] Jessica Cortes MD [address] [facility] Building [address] [place] [address] 01/25/2025 9:00 AM EDT Appointment [place] [address] [place] [address] [address] 05/09/2025 11:00 AM EDT Appointment [facility] [place] [address] 05/09/2025 11:15 AM EDT Appointment [facility] [place] [address] [address] Susana Garay MD [address] [place] [address] [place] [address] documented as of this encounter Goals Goal Patient Goal Type Associated Problems Recent Progress Patient-Stated? Author Maintain a healthy diet, exercise regularly and maintain an ideal body weight General Porsche Ashley RN documented as of this encounter Procedures Procedure Name Priority Date/Time Associated Diagnosis Comments BILE ACIDS TOTAL -REF LAB Routine 06/19/2023 3:24 PM EDT Itching SEDIMENTATION RATE AUTOMATED Routine 06/19/2023 3:24 PM EDT Therapeutic drug monitoring CBC WITH DIFF Routine 06/19/2023 3:24 PM EDT Therapeutic drug monitoring C-REACTIVE PROTEIN Routine 06/19/2023 3: 24 PM EDT Therapeutic drug monitoring COMPREHENSIVE METABOLIC PANEL Routine 06/19/2023 3:24 PM EDT Therapeutic drug monitoring documented in this encounter Results * BILE ACIDS TOTAL -REF LAB (06/19/2023 3:24 PM EDT) Bile Acids 8 0 - 10 umol/L 06/21/2023 8:22 PM EDT [facility] Comment: INTERPRETIVE INFORMATION: Bile Acids, Total Reference Interval applies to fasting specimens. Performed By: [facility] [address] [place] [address] Duplicating Machine Mechanic: Thierno Cintron MD, PhD CLIA Number: [id number] Blood VENOUS BLOOD / Unknown Venipuncture / Unknown 06/19/2023 3:24 PM EDT 06/19/2023 3:24 PM EDT us Julisa Kerr MD CHEMISTRY ORDERABLES Final Res ult [facility] [address] [place] [address] * (ABNORMAL) COMPREHENSIVE METABOLIC PANEL (06/19/2023 3:24 PM EDT) Sodium 137 136 - 145 mmol/L 06/20/2023 12:44 AM EDT [facility] Potassium 3.7 3.5 - 5.0 mmol/L 06/20/2023 12:44 AM EDT [facility] Chloride 100 98 - 107 mmol/L 06/20/2023 12:44 AM EDT [facility] Total CO2 22 22 - 29 mmol/L 06/20/2023 12:44 AM EDT [facility] Anion Gap 15 7 - 16 mmol/L 06/20/2023 12:44 AM EDT [facility] Calcium 9.2 8.6 - 10.4 mg/dL 06/20/2023 12:44 AM EDT [facility] Glucose Lvl 243(H) 74 - 100 mg/dL 06/20/2023 12:44 AM EDT [facility] BUN 10 6 - 20 mg/dL 06/20/2023 12:44 AM EDT [facility] Creatinine 0.69 0.51 - 1.30 mg/dL 06/20/2023 12:44 AM EDT [facility] Albumin 4.0 3.5 - 5.2 gm/dL 06/20/2023 12:44 AM EDT [facility] Total Protein 7.4 6.4 - 8.3 gm/dL 06/20/2023 12:44 AM EDT [facility] Bili Total 0.2 0.2 - 1.3 mg/dL 06/20/2023 12:44 AM EDT [facility] ALT 21 <=41 U/L 06/20/2023 12:44 AM EDT [facility] AST 17 <=40 U/L 06/20/2023 12:44 AM EDT [facility] Alk Phos 86 36 - 123 U/L 06/20/2023 12:44 AM EDT [facility] eGFR (CKD-EPIcr 2020) 104 >=60 mL/min/1.7 3 m2 06/20/2023 12:44 AM EDT [facility] Comment:Estimated GFR was ca lculated using the CKD-EPIcr (2020) equation refit without race. The equation is recommended by the National Kidney Foundation - [place] [employer] of Nephrology Task Force. Blood VENOUS BLOOD / Unknown Venipuncture / Unknown 06/19/2023 3:24 PM EDT 06/19/2023 3:24 PM EDT us Jessica Cortes MD CHEMISTRY ORDERABLES Siobhan finnegan Result [facility] [address] [facility], [address] [place] [id number] [facility] [address] [place] [address] * (ABNORMAL) CBC WITH DIFF (06/19/2023 3:24 PM EDT) [facility] WBC 9.1 3.7 - 10.3 x10(3)/mcL 06/19/2023 8:48 PM EDT [facility] RBC 4.65 3.90 - 5.20 x10(6)/mcL 06/19/2023 8:48 PM EDT [facility] Hgb 11.8 11.2 - 15.7 g/dL 06/19/2023 8:48 PM EDT [facility] Hct 39.3 34.0 - 45.0 % 06/19/2023 8:48 PM EDT [facility] MCV 84.5 80.0 - 100.0 fL 06/19/2023 8:48 PM EDT [facility] MCH 25.4(L) 26.0 - 34.0 pg 06/19/2023 8:48 PM EDT [facility] MCHC 30.0(L) 30.7 - 35.5 g/dL 06/19/2023 8:48 PM EDT [facility] RDW 17.5(H) <=14.9 % 06/19/2023 8:48 PM EDT [facility] Platelet 526(H) 155 - 369 x10(3)/[facility] 06/19/2023 8:48 PM EDT [facility] MPV 10.4 8.8 - 12.5 fL 06/19/2023 8:48 PM EDT [facility] Neut Percent 83.9 % 06/19/2023 8:48 PM EDT [facility] Comment:Neutrophils equals s egs plus bands Imm Gran% 4.5 % 06/19/2023 8:48 PM EDT [facility] Comment:Automated count of m etamyelocytes, myelocytes and promyelocytes. Lymph Percent 10.2 % 06/19/2023 8:48 PM EDT [facility] [place] Percent 1.0 % 06/19/2023 8:48 PM EDT [facility] Eos Percent 0.1 % 06/19/2023 8:48 PM EDT [facility] Baso Percent 0.3 % 06/19/2023 8:48 PM EDT [facility] Neut # 7.6(H) 1.6 - 6.1 x10(3)/[facility] 06/19/2023 8:48 PM EDT [facility] Comment:Neutrophils equals s egs plus bands IMMGRAN# 0.4(H) 0.0 - 0.1 x10(3)/[facility] 06/19/2023 8:48 PM EDT [facility] Comment:Automated count of m etamyelocytes, myelocytes and promyelocytes. An absolute IG <0.1 is reported as 0.0. Lymph # 0.9(L) 1.2 - 3.9 x10(3)/[facility] 06/19/2023 8:48 PM EDT [facility] [place] # 0.1(L) 0.3 - 0.9 x10(3)/[facility] 06/19/2023 8:48 PM EDT [facility] Eos# 0.0 0.0 - 0.5 x10(3)/mcL 06/19/2023 8:48 PM EDT [facility] Baso # 0.0 0.0 - 0.1 x10(3)/mcL 06/19/2023 8:48 PM EDT [facility] Blood VENOUS BLOOD / Unknown Venipuncture / Unknown 06/19/2023 3:24 PM EDT 06/19/2023 3:24 PM EDT us Jessica Cortes MD HEMATOLOGY ORDERABLES Fin al Result Performing Organization Address [facility] de Phone Number [facility] [employer] , [place] [phone] * C-REACTIVE PROTEIN (06/19/2023 3:24 PM EDT) CRP 3.23 <=5.00 mg/L 06/20/2023 12:44 AM EDT [facility] Blood VENOUS BLOOD / Unknown Venipuncture / Unknown 06/19/2023 3:24 PM EDT 06/19/2023 3:24 PM EDT Result Henry Cortes MD CHEMISTRY ORDERABLES Siobhan l Result Performing Organization Address [facility] de Phone Number [facility] [employer] , [address] [place] [phone] * (ABNORMAL) SEDIMENTATION RATE AUTOMATED (06/19/2023 3:24 PM EDT) Sed Rate 44(H) 0 - 30 mm/hr 06/19/2023 8:48 PM EDT [facility] Blood VENOUS BLOOD / Unknown Venipuncture / Unknown 06/19/2023 3:24 PM EDT 06/19/2023 3:24 PM EDT us Jessica Cortes MD HEMATOLOGY ORDERABLES Fin al Result [facility] [employer] [address] [facility] , [address] [place], [place] [phone] documented in this encounter Visit Diagnoses Diagnosis Therapeutic drug monitoring Encounter for therapeutic drug monitoring Itching Unspecified pruritic disorder documented in this encounter Care Teams Processing Talc And Borate Supervisor Relationship Specialty Start Date End Date Julisa Kerr MD [address] [place] [address] PCP - General 02/22/11 Jessica Cortes MD 651 [facility] [address] [place] [address] Internal Medicine-Rheumatology 04/26/16 Susana Garay MD 1 [facility] [place] [address] Medical Oncologist Internal Medicine-Hematology and Oncology 10/14/22 documented as of this encounter
--- OUTSIDE RECORDS SUMMARY | 2024-08-22 21:40 | XMS_ITS | Encounter Summary ---
Author Organization [facility] [place] [address] Care Team Providers Care Publishing Agent Name Role Phone Julisa Kerr MD Primary Care Provider [phone] Jessica Cortes MD Unavailable [phone] Susana Garay MD Unavailable [phone] Encounter Details Date Type Department Care Team (Latest Contact Info) Description 08/05/2023 Travel Social History Tobacco Use Types Packs/Day [...] Info) Description 08/31/2024 8:30 AM EST Appointment [address] [place] [address] 10/25/2024 10:45 AM EST Office Visit [facility] [address] [place] [address] Jessica Cortes MD [address] [place] [address] 01/25/2025 9:00 AM EDT [address]ment [address] [place] [address] 05/09/2025 11:00 AM EDT [address]ment [address] [place] [address] 05/09/2025 11:15 AM EDT [address]ment [address] [place] [address] Susana Garay MD [address] [place] [address] [place] [address] documented as of this encounter Goals Goal Patient Goal Type Associated Problems Recent Progress Patient-Stated? 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, RN documented as of this encounter Visit Diagnoses Not on filedocumented in this encounter Care Teams Publishing Agent Relationship Specialty Start Date End Date Julisa Kerr MD [address] [place] [address] PCP - General 02/22/11 Jessica Cortes MD [address] [address] Internal Medicine-Rheumatology 04/26/16 Susana Garay MD [address] [place] [address] Medical Oncologist Internal Medicine-Hematology and Oncology 10/14/22 documented as of this encounter
--- OUTSIDE RECORDS SUMMARY | 2024-08-22 21:40 | XMS_ITS | Encounter Summary ---
Author Organization [place] [address] Care Team Providers Care Customer Care Agent Name Role Phone Julisa Kerr MD Primary Care Provider [phone] Jessica Cortes MD Unavailable [phone] Susana Garay MD Unavailable [phone] Reason for Referral * MRI/CAT Scan (Routine) - Closed Specialty Diagnoses / Procedures Referred By Contac t Referred To Contact Radiology Diagnoses Knee mass, left Procedures MRI KNEE LEFT WO CONTRAST Julisa Kerr MD [address] [place] [address] Phone: tel: fax: [facility] [address] [place] [address] Phone: tel: Referral ID Status Reason Start Date Expiration Date Visits Re quested Visits Authorized [id number] Closed 05/14/2023 05/13/2024 1 0 Reason for Visit * MRI/CAT Scan (Routine) - Closed Specialty Diagnoses / Procedures Referred By Contac t Referred To Contact Radiology Diagnoses Knee mass, left Procedures MRI KNEE LEFT WO CONTRAST Julisa Kerr MD [address] [place] [address] Phone: tel: fax: [facility] [address] [place] [address] Phone: tel: Referral ID Status Reason Start Date Expiration Date Visits Re quested Visits Authorized [id number] Closed 05/14/2023 05/13/2024 1 0 Encounter Details Date Type Department Care Team (Late st Contact Info) Description 06/10/2023 8:51 AM EDT - 06/10/2023 11:59 PM EDT Hospital Encounter [facility] [address] [place] [address] Julisa Kerr MD [address] [place] [address] Knee mass, left Discharge Disposition: Home or Self Care Social [...] Dillon Levy MA documented in this encounter Medications at [...] Description 08/31/2024 8:30 AM EST [address]ointment [address] [place] [address] 10/25/2024 10:45 AM EST Office Visit [facility] [address] [facility] [address] [place] [address] Jessica Cortes MD 651 [facility] Building [address] [place] [address] 01/25/2025 9:00 AM EDT Appointment [place] [address] [place] [address] 05/09/2025 11:00 AM EDT Appointment [place] [address] [address] [address] 05/09/2025 11:15 AM EDT Appointment [place] [address] [place] [address] Susana Garay MD [address] [place] [address] [place] [address] documented as of this encounter Goals Goal Patient Goal Type Associated Problems Recent Progress Patient-Stated? Author Maintain a healthy diet, exercise regularly and maintain an ideal body weight General Porsche Ashley RN documented as of this encounter Procedures Procedure Name Priority Date/Time Associated Diagnosis Comments MRI KNEE LEFT WO CONTRAST Routine 06/10/2023 9:36 AM EDT Knee mass, left documented in this encounter Results * MRI KNEE LEFT WO CONTRAST (06/10/2023 9:36 AM EDT) Anatomical Region Laterality Modality Knee, Patella Magnetic Resonan ce 06/10/2023 9:36 AM EDT Impressions 06/10/2023 11:51 AM EDT 1. Constellation of of MRI findings are [...] 3. Intact cruciate/collateral ligaments and extensor mechanism. - Note: Radiology results need to be interpreted within a comprehensive clinical context. ??If you have questions about the radiology report, please contact the office of the ordering clinician. Narrative 06/10/2023 11:51 AM EDT MRI KNEE LEFT WO CONTRAST ??06/10/2023 9:36 AM ?? CLINICAL HISTORY: ??R22.42-Localized swelling, mass and lump, left lower [id number] COMPARISON: None. TECHNIQUE: Multiplanar, multisequence MR images of the left knee were obtained without the use of contrast. FINDINGS: MENISCI: Medial Meniscus: Broadly/smoothly attenuated inner [...] 3.5 cm AP by 4.3 cm transverse). Procedure Note Alexander Larios MD - 06/10/2023 MRI KNEE LEFT WO CONTRAST 06/10/2023 9:36 AM CLINICAL HISTORY: R22.42-Localized swelling, mass and lump, left lower [id number] COMPARISON: None. TECHNIQUE: Multiplanar, multisequence MR images of the left knee wereobtained without the use of contrast. FINDINGS: MENISCI: Medial Meniscus: Broadly/smoothly attenuated inner rim margins of themedial meniscus from anterior to posterior. No root rupture. Moderate effusion. Lateral Meniscus: Broadly/smoothly attenuated remnant margins of thelateral meniscus from posterior horn and anterior horn. LIGAMENTS/STABILIZERS: Intact ACL and PCL. Intact MCL with reactive MCLperiligamentous/posteromedial joint edema. Intact IT band, LCL, and biceps femoris/popliteus tendons. OSSEOUS & ARTICULAR STRUCTURES: Bones: No fracture or malalignment. No characteristic bone marrow contusion/edema pattern, or worrisome marrow infiltration. Femorotibial Compartments: Broad chondral attenuation of theweightbearing medial femoral condyle with reactive subchondral bone edema indicatingfocal high-grade chondral loss. Mild tibial plateau and lateral femoralcondyle chondromalacia. Patellofemoral Compartment: Advanced patellar chondral loss including themedian ridge and medial facet. Broad high-grade chondral wear of thecentral/medial trochlea. EXTENSOR MECHANISM/RETINACULA: Intact quadriceps and patellar tendons.Intact retinacula. FLUID: Large complex effusion with findings of synovitis. Largespace-occupying complex Forbes's cyst (7.5 cm superior/inferior by 3.5 cm AP by 4.3 cm transverse). IMPRESSION: 1. Constellation of of MRI findings are compatible with the patient'shistory of rheumatoid arthritis. There is a large complex joint effusion withfindings of synovitis and large complex Forbes's cyst. 2. Smoothly attenuated inner rim margins of the medial and lateralmenisci overall favor prior partial meniscectomy changes. Please correlate withthe patient's surgical intervention. If there is no history of surgery,chronic fraying/tearing considered. 3. Intact cruciate/collateral ligaments and extensor mechanism. - Note: Radiology results need to be interpreted within a comprehensiveclinical context. If you have questions about the radiology report, please contactthe office of the ordering clinician. us Julisa Kerr MD IMG MRI ORDERABLES Final Resul t documented in this encounter Visit Diagnoses Diagnosis Knee mass, left documented in this encounter Care Teams Customer Care Agent Relationship Specialty Start Date End Date Julisa Kerr MD [address] [place] [address] PCP - General 02/22/11 Jessica Cortes MD [address] [address] Internal Medicine-Rheumatology 04/26/16 Susana Garay MD [address] [place] [address] [address] [place] [id number] Medical Oncologist Internal Medicine-Hematology and Oncology 10/14/22 documented as of this encounter
--- OUTSIDE RECORDS SUMMARY | 2024-08-22 21:40 | XMS_ITS | Encounter Summary ---
Author Organization [place] [address] Care Team Providers Care It Application Architect Name Role Phone Julisa Kerr MD Primary Care Provider [phone] Jessica Cortes MD Unavailable [phone] Susana Garay MD Unavailable [phone] Reason for Referral * Consultation (Routine) - Closed Specialty Diagnoses / Procedures Referred By Contac t Referred To Contact Diagnoses Knee mass, left Julisa Kerr MD [address] [place] [address] Phone: tel: fax: Referral ID Status Reason Start Date Expiration Date Visits Re quested Visits Authorized [id number] Closed 06/10/2023 06/09/2024 99 99 Encounter Details Date Type Department Care Team (Late st Contact Info) Description 06/10/2023 Orders Only [facility] [address] [place] [phone] Elizabet Levy MA Knee mass, left (Primary Dx) Social History Tobacco Use Types [...] Dillon Mcnamara MA documented in this encounter Plan of Treatment Upcoming Encounters Date Type Department Care Team (Late st Contact Info) Description 08/31/2024 8:30 AM EST Appointment [facility] [address] [place] [address] 10/25/2024 10:45 AM EST Office Visit [facility] [address] [place] [address] Jessica Cortes MD [address] [facility] Building [address] [place] [address] 01/25/2025 9:00 AM EDT Appointment [facility] [place] [address] 05/09/2025 11:00 AM EDT Appointment [facility] [place] [address] 05/09/2025 11:15 AM EDT Appointment [facility] [place] [address] Susana Garay MD [address] [facility] [place] [address] Scheduled Referrals Name Type Priority Associated Diagnoses Order Schedule AMB REFERRAL TO ORTHOPEDIC SURGERY Outpatient Referral Routine Knee mass, left Ordered: 06/10/2023 documented as of this encounter Goals Goal Patient Goal Type Associated Problems Recent Progress Patient-Stated? 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 RN documented as of this encounter Visit Diagnoses Diagnosis Knee mass, left- Primary documented in this encounter Care Teams It Application Architect Relationship Specialty Start Date End Date Julisa Kerr MD [address] [place] [address] PCP - General 02/22/11 Jessica Cortes MD [address] [id number] Internal Medicine-Rheumatology 04/26/16 Susana Garay MD [address] [facility] [address] [place] [id number] Medical Oncologist Internal Medicine-Hematology and Oncology 10/14/22 documented as of this encounter
--- OUTSIDE RECORDS SUMMARY | 2024-08-22 21:40 | XMS_ITS | Encounter Summary ---
Author Organization [place] [address] Care Team Providers Care Farmworker Fruit Name Role Phone Julisa Kerr MD Primary Care Provider [phone] Jessica Cortes MD Unavailable [phone] Susana Garay MD Unavailable [phone] Reason for Visit * Reason Comments Medication Refill Encounter Details Date Type Department Care Team (Late st Contact Info) Description 07/31/2023 Refill [facility] [address] [place] [address] Jessica Cortes MD [address] [facility] [address] [place] [address] Medication Refill Social History Tobacco Use Types [...] EDDillon Brennan MA documented in this encounter Ordered Prescriptions Prescription Sig Dispense Quantity Refills Last Filled Start Date End Date methotrexate sodium 25 mg/mL Inj SolutionIndicatio ns:R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 4 mL 07/31/2023 3 documented in this encounter Miscellaneous Notes * Telephone Encounter - Ana An RMA - 07/31/2023 8:50 AM EDT last visit:06/20/23 last labs:06/19/23 next visit:10/03/23 chart reviewed: Restarted MTX 15 mg SQ weekly 10/2019. documented in this encounter Plan of Treatment Upcoming Encounters Date Type Department Care Team (Late st Contact Info) Description 08/31/2024 8:30 AM EST Appointment [facility] Cancer [address] [place] [address] 10/25/2024 10:45 AM EST Office Visit [facility] [address]51 [facility] [address] [place] [address] Jessica Cortes MD 651 [place] [address] 01/25/2025 9:00 AM EDT Appointment [place] [address] [place] [address] 05/09/2025 11:00 AM EDT [address]ointment [address] [place] [address] 05/09/2025 11:15 AM EDT Appointment [address] [place] [address] Susana Garay MD [address] [place] [address] documented as of this encounter Goals Goal Patient Goal Type Associated Problems Recent Progress Patient-Stated? Author Maintain a healthy diet, exercise regularly and maintain an ideal body weight General Porsche Ashley, RN documented as of this encounter Visit Diagnoses Diagnosis Rheumatoid arthritis involving multiple sites with positive rheumatoid factor (HCC) documented in this encounter Care Teams Farmworker Fruit Relationship Specialty Start Date End Date Julisa Kerr MD [address] [place] [address] PCP - General 02/22/11 Jessica Cortes MD [address] [place] [id number] Internal Medicine-Rheumatology 04/26/16 Susana Garay MD [address] [place] [address] [place] [address] Medical Oncologist Internal Medicine-Hematology and Oncology 10/14/22 documented as of this encounter
--- OUTSIDE RECORDS SUMMARY | 2024-08-22 21:40 | XMS_ITS | Encounter Summary ---
Author Organization [facility] Address [address] [place] [address] Care Team Providers Care Table Maker Name Role Phone Julisa Kerr MD Primary Care Provider [phone] Jessica Cortes MD Unavailable [phone] Susana Garay MD Unavailable [phone] Reason for Visit * Reason Comments Follow-up Encounter Details Date Type Department Care Team (Late st Contact Info) Description 07/29/2023 11:15 AM EDT Office Visit [facility] Warehouse Engineer [address] [place] [address] Jordy Clifton MD [address] [place] [address] Primary osteoarthritis of left knee (Primary Dx); Primary osteoarthritis of right knee Social History Tobacco Use Types Packs/Day Years [...] documented in this encounter Progress Notes * Jordy Clifton MD - 07/29/2023 11:15 AM EDT Images from the original note were not included. [address] [phone] [place], [place] [phone] [place], [place] Yuliet Trevino 1970 Chief Complaint Patient presents with Right Knee - Follow-up Subjective: The patient reminds me that they continue to have the same pain and it is really not any better since the last time we have seen them. They remind me that they have failed a number of conservative treatments as previously outlined in my notes. Right knee pain persists Actually worsening. Tried rest, ice, nsaids, RA medications, and injections. No lasting relief. Objective: On physical examination the patient is alert and oriented x3. Appropriate mood for the conversation. Well-developed and well-nourished in appearance. Gait examination reveals no obvious abnormalities. Bilateral upper and lower extremities demonstrate intact pulses and sensation to light touch of the wrist, hand, ankle and foot bilaterally. Skin of bilateral upper and lower extremities with no obvious rash or lesions. Intact deep tendon reflexes for bilateral knees and Achilles. No evidence of obvious lymphedema of bilateral lower extremities. Range of motion, strength and stability are demonstrated of bilateral elbows, wrists and hips without obvious crepitation, pain or edema. Standing exam reveals no gross abnormality of alignment of the lower extremities. Respiratory rate is normal by clinical examination. Pulse rate is normal by peripheral pulse examination. Physical examination remains unchanged from their previous examination; specifically there is stilltenderness over the affected joint, as previously described. Distally the patient is grossly neurovascularly intact [...] as expected. No evidence of significant lymphadenopathy. Range of motion, strength and stability are demonstrated of bilateral knees and ankles without obvious crepitus, pain or edema. Imaging: None today. Assessment and Plan: At this point, I have discussed again in great detail the risks, benefits and alternatives of surgical intervention. The risks include, but are not limited to risks of bleeding, infection, damage to blood vessels and nerves and the need for further surgical intervention, failure of implants, failure of bony healing, anesthesia problems, , loosening, a stiff knee or hip, blood clots, and other. In spite of the risks the patient would like to proceed. No guarantees were given. Consent will be signed. We will plan to proceed with right total knee arthroplasty as scheduled. The patient verbalizes their understanding of the risks and in spite of it would like to proceed. All questions were answered. We have discussed pertinent pre-operative medications and given some instruction on which blood thinners and other medicines to hold prior to the operation. We have discussed safe discharge from the hospital. Diagnoses and all orders for this visit: Primary osteoarthritis of left knee Primary osteoarthritis of right knee DME Summary No orders found for display Pre OP Cefazolin Prineo History RA and antiphospholipid syndrome. Right DVT , prescribed Eliquis. 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 No hx of urinary retention No GERD [facility] for PT Has a Walker Family/friends can [...] Info) Description 08/31/2024 8:30 AM EST Appointment [address] [place] [address] 10/25/2024 10:45 AM EST Office Visit [facility] [address] [place] [address] Jessica Cortes MD [address] [place] [address] 01/25/2025 9:00 AM EDT Appointment [address] [place] [place] [address] 05/09/2025 11:00 AM EDT [address]ment [address] [place] [address] 05/09/2025 11:15 AM EDT Appointment [address] [place] [address] Susana Garay MD [address] [place] [address] documented as of this encounter Goals Goal Patient Goal Type Associated Problems Recent Progress Patient-Stated? 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 RN documented as of this encounter Visit Diagnoses Diagnosis Primary osteoarthritis of left knee- Primary Primary localized osteoarthrosis, lower leg Primary osteoarthritis of right knee Primary localized osteoarthrosis, lower leg documented in this encounter Care Teams Table Maker Relationship Specialty Start Date End Date Julisa Kerr MD [address] [place] [address] PCP - General 02/22/11 Jessica Cortes MD [address] [place] [address] [address] [place] [address] Internal Medicine-Rheumatology 04/26/16 Susana Garay MD [address] [place] [address] Medical Oncologist Internal Medicine-Hematology and Oncology 10/14/22 documented as of this encounter
--- OUTSIDE RECORDS SUMMARY | 2024-08-22 21:40 | XMS_ITS | Encounter Summary ---
Author Organization [place] [address] Care Team Providers Care Onion Tier Name Role Phone Julisa Kerr MD Primary Care Provider [phone] Jessica Cortes MD Unavailable [phone] Susana Garay MD Unavailable [phone] Reason for Visit * Reason Comments Follow-up Rheumatoid arthritis involving multiple sites with positive rheumatoid factor (HCC)Raynaud's phenomenon without gangrenePositive BRET (antinuclear antibody)Sicca syndrome (HCC)Neck painAge-related osteoporosis without current pathological fracturePostmenopausal stateImmunocompromised patient (HCC)Trochanteric bursitis of left hipTherapeutic drug monitoringTuberculosis screeningAntiphospholipid syndrome (HCC)Chronic pain of both knees Encounter Details Date Type Department Care Team (Latest Contact Info) Description 06/20/2023 4:15 PM EDT Office Visit [facility] [address] [place] [address] Jessica Cortes MD [address] [facility] [address] [place] [address] Rheumatoid arthritis involving multiple sites with positive rheumatoid factor (HCC) (Primary Dx); Raynaud's phenomenon without gangrene; Positive BRET (antinuclear antibody); Sicca syndrome (HCC); Neck pain; Age-related osteoporosis without current pathological fracture; Postmenopausal state; Immunocompromised patient (HCC); Therapeutic drug monitoring; Tuberculosis screening; Antiphospholipid syndrome [...] Sign Reading Time Taken Comments Blood Pressure 140/84 06/20/2023 4:06 PM EDT Pulse 97 06/20/2023 4:06 PM EDT Temperature - - Respiratory Rate 16 06/20/2023 4:06 PM EDT Oxygen Saturation - - Inhaled Oxygen Concentration - - Weight 60.6 kg (133 lb 9.6 oz) 06/20/2023 4:06 P M EDT Height - - Body Mass Index 23.67 06/19/2023 9:06 AM EDT documented in this [...] skin every 30 days. 1 mL 2 09/05/2023 1:27 PM EST 06/20/2023 10/03/2023 predniSONE (DELTASONE) 5 mg Oral TabletIndications: Rheumatoid arthritis involving multiple sites with positive rheumatoid factor (HCC) Take 1 Tablet by mouth daily. 30 Tablet 2 06/20/2023 09/19/2023 leflunomide (ARAVA) 20 mg Oral TabletIndications: Rheumatoid arthritis involving multiple sites with positive rheumatoid factor (HCC) Take 1 Tablet by mouth daily. 30 Tablet 1 06/20/2023 08/22/2023 documented in this encounter Progress Notes * Jessica Cortes MD - 06/20/2023 4:15 PM EDT Subjective Subjective: Patient ID: Yuliet Trevino is a 52 y.o. female. Chief Complaint Patient presents with Follow-up Rheumatoid arthritis involving multiple sites with positive rheumatoid factor (HCC) Raynaud's phenomenon without gangrene Positive BRET (antinuclear antibody) Sicca syndrome (HCC) Neck pain Age-related osteoporosis without current pathological fracture Postmenopausal state Immunocompromised patient (HCC) Trochanteric bursitis of left hip Therapeutic drug monitoring Tuberculosis screening Antiphospholipid syndrome (HCC) Chronic pain of both knees HPIThe patient comes in for follow up regarding RA. Symptoms started in 2002. Seen by Treasury Associate, Dr. Astorga. She was seen in [facility] but have not seen her in [...] mild pain- 3/10, mild swelling. Today's visit: The patient comes in for the follow up. She called about a week ago c/o worsening pain and swellingin the knees, ankles. Saw PCP had MRI of the left knee 06/10/23 which showed large effusion, large complex Forbes's cyst and chronic fraying/tearing of the meniscus. Saw ortho yesterday. Given cortisol shots to both knees. For the last 3 months she has been really fatigued, could not sleep. In April got terribly sick, she could not work, sleep, she had significant swelling of the joints. She was off MTX and Arava for 3.5 weeks due to sickness. Currently on prednisone taper. Pain in the hands, right wrist, knees, ankles. Joint swelling: wrists, knuckles, knees Dry eyes - stable. Uses eye drops. Dry mouth - not much Type of pain: ache Morning stiffness: up to 30 - 60 minutes. Raynaud's: worsened in the cold weather. Current therapy: MTX 15 mg weekly, has not taken since 04/2023 for about 3.5 weeks, Arava 10 mg daily- has not taken since 04/2023, last 3.5 week, Simponi 100 mg sq q month started around 02/10/22, folic acid 1 mg daily Previous therapy: Tylenol, Codeine, Darvocet, Motrin, Naproxen, [...] stopped 03/2020)- nausea Plaquenil 200 mg BID, Patients past medical, family and social histories were reviewed and updated. There were no changesexcept as noted. Allergies Allergen Reactions Orencia [Abatacept (With Maltose)] Swelling and Other (See Comments) Facial tingling/ numbness Cefdinir Other (See Comments) Bad abdominal cramping Enbrel [Etanercept] Itching Humira [Adalimumab] Itching Mobic [Meloxicam] Hives Xeljanz [Tofacitinib] Itching Current Outpatient Medications on File Prior to Visit Medication Sig Dispense Refill ELIQUIS 5 mg Oral Tablet TAKE 1 TABLET BY MOUTH TWICE A DAY 90 Tablet 2 hydrOXYzine (ATARAX) 25 mg Oral Tablet Take 1 Tablet by mouth 3 times daily as needed. 90 Tablet 2 oxyCODONE-acetaminophen (PERCOCET) 5-325 mg Oral Tablet Take 1 Tablet by mouth every 6 hours as needed for Acute Pain > 3 Days Medically Necessary (R52). 20 Tablet 0 predniSONE (DELTASONE) 20 mg Oral Tablet 3 tabs po daily for 3 days, then 2 tabs po daily for 3 days then 1 tab daily for 3 days then 1/2 tab daily for 4 days. 20 Tablet 0 No current facility-administered medications on file prior to visit. Review of Systems Constitutional: Positive for fatigue. Weight gain HENT: Positive for congestion. Dry mouth Eyes: Dry eyes Respiratory: Positive for cough. Gastrointestinal: Positive for abdominal pain, constipation, diarrhea and nausea. GERD Musculoskeletal: Positive for arthralgias, back pain, joint swelling and neck pain. Neurological: Positive for dizziness and headaches. Psychiatric/Behavioral: Positive for sleep disturbance. Depression All other systems reviewed and are negative. Objective Objective: Vitals: 06/20/23 1606 BP: 140/84 Pulse: 97 Resp: 16 Weight: 133 lb 9.6 oz (60.6 kg) Body mass index is 23.67 kg/m??. Physical Exam Constitutional: Appearance: She is well-developed. HENT: Head: Normocephalic and atraumatic. Musculoskeletal: Comments: Synovitis in the wrists, 2nd, 3rd, 5th right MCP, 1st, 2nd , 3rd left MCP, bilateral kneeeffusion, R>L. Forbes's cyst bilaterally, more pronounced on the left. Tenderness to the wrists, MCP, PIP joints, medial joint line of the knees. ROM of the wrists, knees, ankles painful. Neurological: Mental Status: She is alert. Psychiatric: Mood and Affect: Mood normal. Rapid 3: 20.0 Lab Results Component Value Date WBC 9.1 06/19/2023 HGB 11.8 06/19/2023 HCT 39.3 06/19/2023 MCV 84.5 06/19/2023 PLT 526 (H) 06/19/2023 Chemistry Component Value Date/Time NA 137 06/19/2023 1524 NA 138 11/23/2019 0000 K 3.7 06/19/2023 1524 K 4.6 11/23/2019 0000 CL 100 06/19/2023 1524 CL 102 11/23/2019 0000 CO2 22 06/19/2023 1524 CO2 27 11/23/2019 0000 BUN 10 06/19/2023 1524 BUN 11 11/23/2019 0000 CREATININE 0.69 06/19/2023 1524 CREATININE 0.7 11/23/2019 0000 GLU 243 (H) 06/19/2023 1524 GLU 103 (H) 07/01/2017 1532 Component Value Date/Time CALCIUM 9.2 06/19/2023 1524 CALCIUM 9.60 11/23/2019 0000 ALKPHOS 86 06/19/2023 1524 ALKPHOS 112 11/23/2019 0000 AST 17 06/19/2023 1524 AST 20 11/23/2019 0000 ALT 21 06/19/2023 1524 ALT 9 11/23/2019 0000 BILITOT 0.2 11/23/2019 0000 Lab Results Component Value Date CRP 3.23 06/19/2023 Lab Results Component Value Date SEDRATE 44 (H) 06/19/2023 XR KNEE LEFT AP LAT INT EXT [...] and extensor mechanism. Assessment and Plan: Yuliet was seen today for follow-up. Diagnoses and all orders for this visit: Rheumatoid arthritis involving multiple sites, with positive rheumatoid factor (HCC) Dx in [address] Astorga in [facility]. Records from [facility] received and reviewed. The patient was seen in 05/11/13 for initial evaluation. Presented with polyarticular joint involvement- large and small joints- shoulders, elbows, knees, wrists, knuckles, toes. Per records she had low titer (+) RF, (-) CCP, (+) BRET centromere pattern > 8.0 with negative SSA/SSB, MEDICAL ASSISTANT FLOAT, Scl 70, dsDNA Records indicate she used [...] Will try to wean off in thefuture. Failed Plaquenil 200 mg twice a day, started 06/28/22, lowered to 200 mg daily due to nausea, stopped 12/09/22 Hepatitis panel checked and negative. Patient should hold therapy while being treated for infections. Patient should not receive live vaccines while on therapy. - leflunomide (ARAVA) 20 mg Oral Tablet; Take 1 Tablet by mouth daily. - predniSONE (DELTASONE) 5 mg Oral Tablet; Take 1 Tablet by mouth daily. - golimumab (SIMPONI) 100 mg/mL SubQ Pen Injector; Inject 1 pen under the skin every 30 days. Raynaud's phenomenon without gangrene Positive BRET (antinuclear [...] neck Fosamax 70 mg weekly started 12/09/22 Discussed the fact that prednisone may speed up bone loss. Advised to take Ca/Vit D supplement Immunocompromised patient (HCC) Increased risk for infections due to immunosuppression Prevnar 13 given 12/13/16 Pneumovax 23 given 03/17/17 Trochanteric bursitis of the left hip Left bursa tenderness Advised to continue stretches and topical OTC creams Therapeutic drug monitoring Tuberculosis screening TB gold negative 01/23/22, recheck Labs every 6-8 weeks while on MTX and Arava to monitor for toxicities. Labs OK 06/19/23.Advised to recheck in 4 weeks due to increasing Arava dose. Antiphospholipid antibody syndrome DVT 04/2022 Elevated d- dimer (+) anti cardiolipin Ab IgM at 72- high positive, persistent Suspect APLS Evaluated by Hem/Onc, Dr. Garay Needs life long anticoagulation. Return in about 3 months (around 09/19/2023). Visit time 45 minutes which included review of records, face to face time with patient, counseling regarding treatment options, chronic prednisone use, risk of osteoporosis with prednisone use and documentation. documented in this encounter Plan of Treatment Upcoming Encounters Date Type Department Care Team (Late st Contact Info) Description 08/31/2024 8:30 AM EST Appointment [facility] [address] [place] [address] 10/25/2024 10:45 AM EST Office Visit [facility] [address] [place] [address] Jessica Cortes MD [address] [facility] [address] [place] [address] 01/25/2025 9:00 AM EDT Appointment [place] [address] [place] [address] 05/09/2025 11:00 AM EDT Appointment [facility] [place] [address] 05/09/2025 11:15 AM EDT Appointment [place] [address] [place] [address] Susana Garay MD [address] [place] [address] [address] [place] [facility] documented as of this encounter Goals Goal [...] (natural) Immunocompromised patient (HCC) Unspecified immunity deficiency Therapeutic drug monitoring Encounter for therapeutic drug monitoring Tuberculosis screening Screening examination for pulmonary tuberculosis Antiphospholipid syndrome (HCC) Primary hypercoagulable state documented in this encounter Discontinued Medications Medication Sig Discontinue Reason Start Date End Da te golimumab (SIMPONI) 100 mg/mL SubQ Pen InjectorIndications:Rheu matoid arthritis involving multiple sites with positive rheumatoid factor (HCC) Inject 1 pen under the skin every 30 days. Reorder 04/08/2023 06/20/2023 documented as of this encounter Care Teams Onion Tier Relationship Specialty Start Date End Date Julisa Kerr MD [address] [place], [place] [address] PCP - General 02/22/11 Jessica Cortes MD [address] [address] Internal Medicine-Rheumatology 04/26/16 Susana Garay MD [address] [facility] [place] [address] Medical Oncologist Internal Medicine-Hematology and Oncology 10/14/22 documented as of this encounter
--- OUTSIDE RECORDS SUMMARY | 2024-08-22 21:40 | XMS_ITS | Encounter Summary ---
Author Organization [place] [address] Care Team Providers Care Parts Consultant Name Role Phone Julisa Kerr MD Primary Care Provider [phone] Jessica Cortes MD Unavailable [phone] Susana Garay MD Unavailable [phone] Reason for Visit * Reason Onset Date Comments Other 06/19/2023 Encounter Details Date Type Department Care Team (Late st Contact Info) Description 06/19/2023 Telephone [facility] [address] [facility] [address] [place] [address] Jessica Cortes MD [address] [facility] [address] [place] [id number] Other Social History Tobacco Use Types Packs/Day [...] Dillon Levy MA documented in this encounter Miscellaneous Notes * Telephone Encounter - Jessica Cortes MD - 06/19/2023 4:04 PM EDT Please check whether she could come in tomorrow at 3:45 or 4:15. * Telephone Encounter - Caterina Bingham, Clerical Staff - 06/19/2023 3:47 PM EDT Pt calling unable to come to appt on 06/27 - her has an appt the same day. She is calling [facility] appt but soonest available is in July. Pt is refusing to schedule that far out. Please advise documented in this encounter Plan of Treatment Upcoming Encounters Date Type Department Care Team (Late st Contact Info) Description 08/31/2024 8:30 AM EST Appointment [facility] Cancer [place] [address] [place] [address] 10/25/2024 10:45 AM EST Office Visit [facility] [address] [facility] [address] [place] [address] Jessica Cortes MD 6[address] [facility] 19 [place] [address] 01/25/2025 9:00 AM EDT Appointment [address] [place] [address] 05/09/2025 11:00 AM EDT Appointment [address] [place] [address] 05/09/2025 11:15 AM EDT [address]ointment [address] [place] [address] Susana Garay MD [address] [facility] [place] [address] documented as of this encounter Goals Goal Patient Goal Type Associated Problems Recent Progress Patient-Stated? 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, RN documented as of this encounter Visit Diagnoses Not on filedocumented in this encounter Care Teams Parts Consultant Relationship Specialty Start Date End Date Julisa Kerr MD [address] [place] [address] PCP - General 02/22/11 Jessica Cortes MD [address] [facility] 19 [place] [address] Internal Medicine-Rheumatology 04/26/16 Susana Garay MD [address] [facility] [address] [place] [id number] Medical Oncologist Internal Medicine-Hematology and Oncology 10/14/22 documented as of this encounter
--- OUTSIDE RECORDS SUMMARY | 2024-08-22 21:40 | XMS_ITS | Encounter Summary ---
Author Organization [place] [address] Care Team Providers Care Fur Remodeler Name Role Phone Julisa Kerr MD Primary Care Provider [phone] Jessica Cortes MD Unavailable [phone] Susana Garay MD Unavailable [phone] Reason for Visit * Reason Onset Date Comments Referral 06/11/2023 Orthopedic info Encounter Details Date Type Department Care Team (Late st Contact Info) Description 06/11/2023 Telephone [facility] [address] [place] [address] Julisa Kerr MD [address] [place] [address] Referral (Orthopedic info) Social History Tobacco Use Types Packs/Day Years [...] encounter Miscellaneous Notes * Telephone Encounter - Gina Carranza RMA - 06/11/2023 3:52 PM EDT Pt notified * Telephone Encounter - Ronan Gutierrez - 06/11/2023 2:38 PM EDT Select the most appropriate reason for this telephone message: Other Who is calling (name & relationship to patient if not the patient): Patient What is needed OR why are they calling: Pt. has referral for Orthopedic but needing the informationto schedule. When is this needed by: pamella Where does this information need to go: Additional information: Didn't see location, number or any provider info but the referral for Ortho was in chart 06/10/23 Please call and advise documented in this encounter Plan of Treatment Upcoming Encounters Date Type Department Care Team (Late st Contact Info) Description 08/31/2024 8:30 AM EST Appointment [facility] [place] [address] [place] [address] 10/25/2024 10:45 AM EST Office Visit [facility] [address] [facility] [address] [place] [address] Jessica Cortes MD 651 [facility] 19 [place] [address] 01/25/2025 9:00 AM EDT Appointment [address] [place] [address] 05/09/2025 11:00 AM EDT Appointment [address] [place] [address] 05/09/2025 11:15 AM EDT [address]ointment [address] [place] [address] Susana Garay MD [address] [place], [place] [id number] documented as of this encounter Goals Goal Patient Goal Type Associated Problems Recent Progress Patient-Stated? 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, RN documented as of this encounter Visit Diagnoses Not on filedocumented in this encounter Care Teams Fur Remodeler Relationship Specialty Start Date End Date Julisa Kerr MD [address] [place] [address] PCP - General 02/22/11 Jessica Cortes MD [address] [facility] [address] [place] [address] Internal Medicine-Rheumatology 04/26/16 Susana Garay MD [address] [facility] [place] [address] Medical Oncologist Internal Medicine-Hematology and Oncology 10/14/22 documented as of this encounter
--- OUTSIDE RECORDS SUMMARY | 2024-08-22 21:40 | XMS_ITS | Encounter Summary ---
Author Organization [place] [address] Care Team Providers Care Salon Leader Name Role Phone Julisa Kerr MD Primary Care Provider [phone] Jessica Cortes MD Unavailable [phone] Susana Garay MD Unavailable [phone] Reason for Visit * Reason Comments Medication Refill Encounter Details Date Type Department Care Team (Late st Contact Info) Description 07/23/2023 [facility]ill [facility] [address] [place] [address] Jhon Peña, JOSE [address] [place] [address] Medication Refill Social History Tobacco Use Types [...] Refills Last Filled Start Date End Date fUROsemide (LASIX) 20 mg Oral TabletIndications: Bilateral lower extremity edema TAKE 1 TABLET BY MOUTH EVERY DAY NEEDED 90 Tablet 3 07/23/2023 01/09/2024 documented in this encounter Miscellaneous Notes * Telephone Encounter - Dayana Arana CPhT - 07/23/2023 11:15 AM EDT Furosemide - Medication Refill Protocol passed. Yvonne Action: Approved 90 day supply with sufficient refills to noted follow-up date by provider or protocol if no follow-up date noted, not to exceed 90 days past that date. LV - 7-31-23 documented in this encounter Plan of Treatment Upcoming Encounters Date Type Department Care Team (Late st Contact Info) Description 08/31/2024 8:30 AM EST Appointment [facility] Cancer [address] [place] [address] 10/25/2024 10:45 AM EST Office Visit [facility] [address] [facility] [address] [place] [address] Jessica Cortes MD 651 [facility] Building 19 [place] [address] 01/25/2025 9:00 AM EDT Appointment [address] [place] [address] 05/09/2025 11:00 AM EDT Appointment [address] [place] [address] 05/09/2025 11:15 AM EDT Appointment [address] [place] [address] Susana Garay MD [address] [place], [place] [id number] documented as of this encounter Goals Goal Patient Goal Type Associated Problems Recent Progress Patient-Stated? Author Maintain a healthy diet, exercise regularly and maintain an ideal body weight General Porsche Ashley, RN documented as of this encounter Visit Diagnoses Diagnosis Bilateral lower extremity edema Edema documented in this encounter Discontinued Medications Medication Sig Discontinue Reason Start Date End Da te fUROsemide (LASIX) 20 mg Oral TabletIndications:Bilate ral lower extremity edema TAKE 1 TABLET BY MOUTH EVERY DAY NEEDED 06/26/2023 07/23/2023 documented as of this encounter Care Teams Salon Leader Relationship Specialty Start Date End Date Julisa Kerr MD [address] [place] [address] PCP - General 02/22/11 Jessica Cortes MD [address] [facility] Building [address] [place] [address] Internal Medicine-Rheumatology 04/26/16 Susana Garay MD [address] [place] [address] Medical Oncologist Internal Medicine-Hematology and Oncology 10/14/22 documented as of this encounter
--- OUTSIDE RECORDS SUMMARY | 2024-08-22 21:40 | XMS_ITS | Encounter Summary ---
Author Organization [place] [address] Care Team Providers Care Revenue Stamp Cutter Name Role Phone Julisa Kerr MD Primary Care Provider [phone] Jessica Cortes MD Unavailable [phone] Susana Garay MD Unavailable [phone] Reason for Visit * Reason Comments Pharmacy Rheumatology Management Simponi Encounter Details Date Type Department Care Team (Latest Contact Info) Description 07/31/2023 Specialty Pharmacy [facility] [address] [phone] Rhina Rubi CPhT Pharmacy Rheumatology Management (Simponi) [...] Progress Notes * Rhina Rubi CPhT - 07/31/2023 1:14 PM EDT [facility] Simponi is refill too soon until 08/03/2023. * Mikaela Forbes CPhT - 07/31/2023 1:14 PM EDT Specialty Pharmacy Refill Coordination Note Contacted Yuliet Trevino today regarding refill of Simponi. Medication to be delivered by [facility] on 08/11/23. Spoke with patient. * Sumit Borges RPH - 07/31/2023 1:14 PM EDT [facility] - Care Plan and Refill Review Patient is not clinically followed. Sumit Borges RPH Specialty Pharmacist documented in this encounter Plan of Treatment Upcoming Encounters Date Type Department Care Team (Late st Contact Info) Description 08/31/2024 8:30 AM EST Appointment [address] [address] [place] [address] 10/25/2024 10:45 AM EST Office Visit [facility] [address] [facility] [address] [place] [address] Jessica Cortes MD 651 [facility] Building 19 [place] [address] 01/25/2025 9:00 AM EDT Appointment [address] [place] [address] 05/09/2025 11:00 AM EDT Appointment [address] [address] 05/09/2025 11:15 AM EDT Appointment [address] [address] Susana Garay MD [address] [place] [address] [place] [id number] documented as of this encounter Goals Goal Patient Goal Type Associated Problems Recent Progress Patient-Stated? Author Maintain a healthy diet, exercise regularly and maintain an ideal body weight General Porsche Ashley RN documented as of this encounter Visit Diagnoses Not on filedocumented in this encounter Care Teams Revenue Stamp Cutter Relationship Specialty Start Date End Date Julisa Kerr MD 100 [place] [address] PCP - General 02/22/11 Jessica Cortes MD [address] [facility] [facility] Building [address] [place] [address] Internal Medicine-Rheumatology 04/26/16 Susana Garay MD 1 [facility] [place] [address] Medical Oncologist Internal Medicine-Hematology and Oncology 10/14/22 documented as of this encounter
--- OUTSIDE RECORDS SUMMARY | 2024-08-22 21:40 | XMS_ITS | Encounter Summary ---
Author Organization [place] [address] Care Team Providers Care Bus Person Dishwasher Name Role Phone Julisa Kerr MD Primary Care Provider [phone] Jessica Cortes MD Unavailable [phone] Susana Garay MD Unavailable [phone] Reason for Visit * Reason Comments Medication Refill Encounter Details Date Type Department Care Team (Late st Contact Info) Description 06/26/2023 Refill [facility] [address] [place] [address] Jhon Peña, JOSE [address] [place] [address] Medication Refill Social History Tobacco Use Types [...] Assessment Author No 06/10/2023 11:21 AM EDT Dillno Levy MA * Does this person have [...] 1 TABLET BY MOUTH EVERY DAY NEEDED 30 Tablet 06/26/2023 07/23/2023 documented in this encounter Miscellaneous Notes * Telephone Encounter - Peggy Fish CPhT - 06/26/2023 9:39 AM EDT Furosemide- Medication refill request deferred to office staff. Yvonne Reason: Medication discontinued or inactive on the medication list documented in this encounter Plan of Treatment Upcoming Encounters Date Type Department Care Team (Late st Contact Info) Description 08/31/2024 8:30 AM EST Appointment [facility] [address] [place] [address] 10/25/2024 10:45 AM EST Office Visit [facility] [address] [facility] [address] [place] [address] Jessica Cortes MD [address] [place] [address] [address] 01/25/2025 9:00 AM EDT Appointment [address] [place] [address] 05/09/2025 11:00 AM EDT Appointment [address] [place] [address] 05/09/2025 11:15 AM EDT Appointment [address] [place] [address] Susana Garay MD [address] [facility] [address] [place], [place] [id number] documented as of this encounter Goals Goal Patient Goal Type Associated Problems Recent Progress Patient-Stated? 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, RN documented as of this encounter Visit Diagnoses Diagnosis Bilateral lower extremity edema Edema documented in this encounter Care Teams Bus Person Dishwasher Relationship Specialty Start Date End Date Julisa Kerr MD [address] [place], [place] [phone] PCP - General 02/22/11 Jessica Cortes MD [address] [place] [address] [address] Internal Medicine-Rheumatology 04/26/16 Susana Garay MD [address] [place] [address] [place], [place] [phone] Medical Oncologist Internal Medicine-Hematology and Oncology 10/14/22 documented as of this encounter
--- OUTSIDE RECORDS SUMMARY | 2024-08-22 21:40 | XMS_ITS | Encounter Summary ---
Author Organization [facility] Address [address] [place] [address] Care Team Providers Care Science Consultant Name Role Phone Julisa Kerr MD Primary Care Provider [phone] Jessica Cortes MD Unavailable [phone] Susana Garay MD Unavailable [phone] Encounter Details Date Type Department Care Team (Latest Contact Info) Description 06/19/2023 8:30 AM EDT Ancillary Procedure [facility] [address] [facility] [address] [place], [place] [id number] Jame Webb PA-C [address] [place] [address] Acute pain of left knee Social History Tobacco Use Types Packs/Day [...] Info) Description 08/31/2024 8:30 AM EST Appointment [address] [place] [address] 10/25/2024 10:45 AM EST Office Visit [facility] [address] [facility] [address] [place] [address] Jessica Cortes MD [address] [place] [address] Building [address] [place] [address] 01/25/2025 9:00 AM EDT Appointment [address] [place] [address] 05/09/2025 11:00 AM EDT Appointment [address] [place] [address] 05/09/2025 11:15 AM EDT Appointment [facility] [address] [place] [address] Susana Garay MD [address] [place] [address] documented as of this encounter Goals Goal Patient Goal Type Associated Problems Recent Progress Patient-Stated? 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 RN documented as of this encounter Procedures Procedure Name Priority Date/Time Associated Diagnosis Comments XR KNEE BILATERAL AP LATERAL INTERNAL AND EXTERNAL OBLIQUES Routine 06/19/2023 8:50 AM EDT Acute pain of left knee documented in this encounter Results * XR KNEE BILATERAL AP LATERAL INTERNAL AND EXTERNAL OBLIQUES (06/19/2023 8:50 AM EDT) Narrative [facility] - 06/19/2023 8:50 AM EDT Please see physician's note from office encounter for x-ray imaging result us Jame Webb PA-C [facility] DIAGNOSTIC IMAGING ORDERA BLES Final Result [facility] documented in this encounter Visit Diagnoses Diagnosis Acute pain of left knee documented in this encounter Care Teams Science Consultant Relationship Specialty Start Date End Date Julisa Kerr MD [address] [place] [address] PCP - General 02/22/11 Jessica Cortes MD 651 [facility] [address] [place] [address] Internal Medicine-Rheumatology 04/26/16 Susana Garay MD [address] [place] [address] Medical Oncologist Internal Medicine-Hematology and Oncology 10/14/22 documented as of this encounter
--- OUTSIDE RECORDS SUMMARY | 2024-08-22 21:40 | XMS_ITS | Encounter Summary ---
Author Organization [place] [address] Care Team Providers Care Continuing Education Director Name Role Phone Julisa Kerr MD Primary Care Provider [phone] Jessica Cortes MD Unavailable [phone] Susana Garay MD Unavailable [phone] Reason for Visit * Reason Comments Pharmacy Rheumatology Management Simponi Encounter Details Date Type Department Care Team (Latest Contact Info) Description 07/10/2023 Specialty Pharmacy [facility] [address] [phone] Jacey Miller CPhT Pharmacy Rheumatology Management (Simponi) [...] Dillon Levy MA documented in this encounter Progress Notes * Jacey Miller CPhT - 07/10/2023 10:26 AM EDT Specialty Pharmacy Refill Coordination Note Contacted Yuliet Trevino today regarding refills of Simponi. Medication to be delivery by [facility] on 07/15. Spoke with patient. documented in this encounter Plan of Treatment Upcoming Encounters Date Type Department Care Team (Late st Contact Info) Description 08/31/2024 8:30 AM EST Appointment [address] [address] [place] [address] 10/25/2024 10:45 AM EST Office Visit [facility] [address] [facility] [address] [place] [address] Jessica Cortes MD [address] [facility] [facility] Building 19 [place] [address] 01/25/2025 9:00 AM EDT Appointment [facility] [place] [address] 05/09/2025 11:00 AM EDT Appointment [facility] [place] [address] 05/09/2025 11:15 AM EDT Appointment [facility] [address] [place] [address] Susana Garay MD 1 [facility] [place] [address] documented as of this encounter Goals Goal Patient Goal Type Associated Problems Recent Progress Patient-Stated? Author Maintain a healthy diet, exercise regularly and maintain an ideal body weight General Porsche Ashley, RN documented as of this encounter Visit Diagnoses Not on filedocumented in this encounter Care Teams Continuing Education Director Relationship Specialty Start Date End Date Julisa Kerr MD [address] [place], [place] [phone] PCP - General 02/22/11 Jessica Cortes MD [address] [place] [address] Internal Medicine-Rheumatology 04/26/16 Susana Garay MD [address] [place] [address] [place] [address] Medical Oncologist Internal Medicine-Hematology and Oncology 10/14/22 documented as of this encounter
--- OUTSIDE RECORDS SUMMARY | 2024-08-22 21:40 | XMS_ITS | Encounter Summary ---
Author Organization [place] [address] Care Team Providers Care Ore Charger Name Role Phone Julisa Kerr MD Primary Care Provider [phone] Jessica Cortes MD Unavailable [phone] Susana Garay MD Unavailable [phone] Reason for Visit * Reason Onset Date Comments Medication Management 07/31/2023 Encounter Details Date Type Department Care Team (Late st Contact Info) Description 07/31/[address] [facility] [address] [facility] [address] [place] [address] Jessica Cortes MD 651 [facility] Building 19 [place] [address] Medication Management Social History Tobacco Use Types [...] EDDillon Brennan MA documented in this encounter Miscellaneous Notes * Telephone Encounter - Margret Terrazas, Clerical Staff - 08/13/2023 9:00 AM EST Pt returned call and understood the instructions on medication. * Telephone Encounter - Ana An RMA - 07/31/2023 1:09 PM EDT Attempted to call patient but no answer. Unable to leave a voicemail as mailbox was fully * Telephone Encounter - Jessica Cortes MD - 07/31/2023 1:00 PM EDT Please let the patient know to hold Simponi until after the surgery when everything heals. She will need to check with the provider that prescribes Eliquis regarding when and for how long tohold it. * Telephone Encounter - Ana An RMA - 07/31/2023 12:42 PM EDT Patient is having knee surgery on 08/22; Surgeon is recommended stopping simponi and eliquis 5 daysprior; wanting to check to make sure this is okay. Okay to leave voicemail when returning call documented in this encounter Plan of Treatment Upcoming Encounters Date Type Department Care Team (Late st Contact Info) Description 08/31/2024 8:30 AM EST Appointment [address] [place] [address] 10/25/2024 10:45 AM EST Office Visit [facility] [address] [place] [address] Jessica Cortes MD [address] [place] [address] 01/25/2025 9:00 AM EDT Appointment [address] [place] [address] 05/09/2025 11:00 AM EDT Appointment [address] [place] [address] 05/09/2025 11:15 AM EDT Appointment [address] [place] [address] Susana Garay MD [address] [place] [address] [place] [address] documented as of this encounter Goals Goal Patient Goal Type Associated Problems Recent Progress Patient-Stated? 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, RN documented as of this encounter Visit Diagnoses Not on filedocumented in this encounter Care Teams Ore Charger Relationship Specialty Start Date End Date Julisa Kerr MD 100 [place] [address] PCP - General 02/22/11 Jessica Cortes MD [address] [address] Internal Medicine-Rheumatology 04/26/16 Susana Garay MD [address] [place] [address] Medical Oncologist Internal Medicine-Hematology and Oncology 10/14/22 documented as of this encounter
--- OUTSIDE RECORDS SUMMARY | 2024-08-22 21:40 | XMS_ITS | Encounter Summary ---
Author Organization [place] [address] Care Team Providers Care Credentialing Assistant Name Role Phone Julisa Kerr MD Primary Care Provider [phone] Jessica Cortes MD Unavailable [phone] Susana Garay MD Unavailable [phone] Reason for Visit * Physical Therapy (Routine) - Closed Specialty Diagnoses / Procedures Referred By Contac t Referred To Contact Physical Therapist / Physical Therapy Diagnoses Primary osteoarthritis of right knee Jame Webb PA-C [address] [phone] Phone: tel: fax: Shanta Barroso, PT Referral ID Status Reason Start Date Expiration Date Visits Re quested Visits Authorized [id number] Closed 07/09/2023 07/08/2024 1 12 Encounter Details Date Type Department Care Team (Latest Contact Info) Description 08/13/2023 10:30 AM EST - 08/13/2023 11:53 AM [facility] Hospital Encounter [facility] [place] [address] Shanta Barroso, PT Discharge Disposition: Home or [...] ONCE A WEEK. 4 mL 07/31/2023 08/26/20 predniSONE (DELTASONE) 5 mg Oral TabletIndications :Rheumatoid arthritis involving multiple sites with positive rheumatoid factor (HCC) Take 1 Tablet by mouth daily. 30 Tablet 2 06/20/2023 09/19/20 Walker Rolling MISCELLANEOU 1 Device by MISCELLANEOUS route once for 1 dose. Use as directed. 1 Each 08/17/2023 08/17/20 documented as of this encounter Discharge Disposition Disposition Code Departure Means Destination Home or Self Care documented in this encounter Progress Notes * Willian Nayak - 08/13/2023 11:22 AM EST Program_ID:[id number] Access Code: [email or web address] URL: [email or web address] Date: 08-13-2023 Prepared By: Shanta Barroso Program Notes Exercises - Standing Terminal Knee Extension at Wall with Ball - 2-3 x daily - x weekly - 3 - 10 - Seated Long Arc Quad with Hip Adduction - 2-3 x daily - x weekly - 3 - 10 - Supine Quadricep Sets - 2-3 x daily - x weekly - 3 - 10 - Active Straight Leg Raise with Quad Set - 2-3 x daily - x weekly - 3 - 10 - Straight Leg Raise with External Rotation - 2-3 x daily - x weekly - 3 - 10 - Supine Bridge with Mini Greek Ball Between Knees - 2-3 x daily - x weekly - 3 - 10 - Sitting Heel Slide with Towel - 2-3 x daily - x weekly - 3 - 10 - Seated Hamstring Stretch - 2-3 x daily - x weekly - 3 - - Long Sitting Calf Stretch with Strap - 2 x daily - x weekly - 3 - Patient Education - Going Up and Down Stairs With Two Rails After Surgery * Shanta Barroso PT - 08/13/2023 10:30 AM EST Images from the original note were not included. Physical Therapy Knee Evaluation 08/13/2023 Visit # [...] WFL STRENGTH LEFT RIGHT Extension (quadriceps; L3-4) 4/5 4/5 Flex (Hamstring) 4/5 4/5 Hip Flexion (L2 - 3 4/5 4/5 Hip Extension (Gluteal Muscles) N/A N/A Hip Abduction 5/5 5/5 Hip IR 4/5 4/5 Hip ER 4/5 4/5 Anterior Tibialis (L5) 5/5 5/5 Gastroc (S1-2) [...] [place]* Date Reviewed: 08/13/2023 Physician Signature: Yuliet Federico Trevino : [phone] documented in this encounter Plan of Treatment Upcoming Encounters Date Type Department Care Team (Late st Contact Info) Description 08/31/2024 8:30 AM EST Appointment [address] [place] [address] 10/25/2024 10:45 AM EST Office Visit [facility] [address] [facility] [address] [place] [address] Jessica Cortes MD [address] [place] [address] Building [address] [place] [address] 01/25/2025 9:00 AM EDT Appointment [address] [place] [address] 05/09/2025 11:00 AM EDT Appointment [address] [place] [address] 05/09/2025 11:15 AM EDT Appointment [address] [place] [address] Susana Garay MD [address] [place] [address] [place] [address] Scheduled Referrals Name Type Priority Associated Diagnoses Orde r Schedule AMB REFERRAL TO PHYSICAL THERAPY Outpatient Referral Routine Primary osteoarthritis of right knee Ordered: 07/09/2023 documented as of this encounter Goals Goal Patient Goal Type Associated Problems Recent Progress Patient-Stated? Author Maintain a healthy diet, exercise regularly and maintain an ideal body weight General Porsche Ashley, RN documented as of this encounter Visit Diagnoses Not on filedocumented in this encounter Care Teams Credentialing Assistant Relationship Specialty Start Date End Date Julisa Kerr MD [address] [id number] PCP - General 02/22/11 Jessica Cortes MD [address] [address] Internal Medicine-Rheumatology 04/26/16 Susana Garay MD [address] [place] [address] Medical Oncologist Internal Medicine-Hematology and Oncology 10/14/22 documented as of this encounter
--- OUTSIDE RECORDS SUMMARY | 2024-08-22 21:40 | XMS_ITS | Encounter Summary ---
Author Organization [facility] Address [address] [place] [address] Care Team Providers Care Registered Nurse Ambulatory Name Role Phone Julisa Kerr MD Primary Care Provider [phone] Jessica Cortes MD Unavailable [phone] Susana Garay MD Unavailable [phone] Reason for Referral * Surgical (Routine) - Closed Specialty Diagnoses / Procedures Referred By Contac t Referred To Contact Diagnoses Primary osteoarthritis of right knee Procedures AMB OC SURGERY COMMUNICATION ORDER Jame Webb PA-C [address] [place] [address] Phone: tel: fax: Referral ID Status Reason Start Date Expiration Date Visits Re quested Visits Authorized [id number] Closed 07/09/2023 07/08/2024 1 1 * Physical Therapy (Routine) - Closed Specialty Diagnoses / Procedures Referred By Contac t Referred To Contact Physical Therapist / Physical Therapy Diagnoses Primary osteoarthritis of right knee Jame Webb PA-C [address] [place] [address] Phone: tel: fax: Shanta Barroso, PT Referral ID Status Reason Start Date Expiration Date Visits Re quested Visits Authorized [id number] Closed 07/09/2023 07/08/2024 1 12 Question Answer surgical procedure total knee arthroplasty Evaluate and Treat Yes Select as appropriate Evaluate and treat appropriately Modalities/Procedures As Indicated Therapeutic Exercise As Indicated Goals: Decrease pain and swelling, Increase ROM, Increase function, Increase strength Additional instructions: Frequency and duration per therapist discretion, Teach HEP Medical Necessity: Prevent need for non-conservative measures, Promote full function post operatively Reason for Visit * Reason Comments Follow-up Encounter Details Date Type Department Care Team (Latest Contact Info) Description 07/09/2023 4:15 PM EDT Office Visit [facility] [address] [address] Jame Webb PA-C [address] [place] [address] Primary osteoarthritis of right knee (Primary Dx); Primary osteoarthritis of left knee; Rheumatoid arthritis involving multiple sites with [...] Progress Notes * Jame Webb PA-C - 07/09/2023 4:15 PM EDT Images from the original note were not included. [address] [phone] [place], [place] [phone] [place], [place] Yuliet Trevino 1970 Chief Complaint Patient presents with Left Knee - Follow-up Subjective: Yuliet Trevino is a 52 y.o. female presenting for evaluation of R>L Referred by Dr Kerr The pain began several years ago. Denies injury or fall. Usually left knee worse but recently right knee more painful. Severe swelling and stiffness. Weak and unstable. Has been prescribed Prednisone with some relief but severe pain and swelling returns when medication stopped. History RA and antiphospholipid syndrome. Right DVT , prescribed Eliquis. Has had a prior right Cortisone injection last year with good relief for months. Pain is described as sharp and aching of the knee. Symptoms improve with rest, ice, heat and a brace. Unable to take NSAIDs due to Eliquis. The symptoms are worse with activity such [...] of this has really solved the problem. Non Smoker Has had PT BMI of 24 She reports the injections to the knee on 06/19/23 helped with her symptoms but is already wearing off. She would like to discuss other options of management Social History Substance and Sexual Activity Drug [...] is normal by peripheral pulse examination. Right Knee Exam Comments: Examination of the right knee shows that it is stable to varus and valgus stressing. Normal anterior/posterior drawer testing. Normal Chiki testing. Normal Kamar testing. There is tenderness to palpation over the medial joint line, as well as the patellofemoral joint. The skin is intact. Left Knee Exam Comments: Examination of the left knee shows that it is stable to varus and valgus stressing. Normal anterior/posterior drawer testing. Normal Chiki testing. Normal Kamar testing. There is tenderness to palpation over the medial joint line, as well as the patellofemoral joint. The skin is intact. Imaging: X-rays reviewed today of the left knee show osteoarthritic degenerative change with joint space narrowing, and osteophyte formation. There are no acute findings noted in these films. 06-10-23 LEFT KNEE MRI MPRESSION: 1. Constellation of of MRI findings are [...] ligaments and extensor mechanism. 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 She appears to be failing this. I do believe patient would benefit from surgical intervention. It is complicated by her history of rheumatoid arthritis. RISKS OF SURGERY: An extensive conversation was held with the patient and/or family regarding the risks, benefits, potential complication and reasonable expectations of the planned procedure. Informed verbal consent was given under no distress. We had ample opportunities for questions regarding the usual outcomes. Risks specifically discussed, but not limited to the following, include possible: bleeding, infection, damage to blood vessels and/ornerves, blood clots, anesthesia complications, loss of reduction (iffracture), re-tear or re-injury (if ligament/tendon fixed), hardware breakage or failure (if used),need for additional surgery, and post-operative stiffness, looseness, leg length discrepancy, and dislocation (where applicable). In addition, in rare cases the patient may have loss of a limb or even . No guarantee of any particular results were given. The patient voiced understanding that insome cases surgery can make them worse. In spite of this, the patient and/or family desired that we proceed with the operation and expressed clear understanding of these risks. We will plan to proceed with a left total knee arthroplasty. I will have her follow-up with Dr. Henry for further discussion. DME Summary No orders found for display documented in this encounter Plan of Treatment Upcoming Encounters Date Type Department Care Team (Late st Contact Info) Description 08/31/2024 8:30 AM EST Appointment [facility] [address] [place] [address] 10/25/2024 10:45 AM EST Office Visit [facility] [address] [facility] [address] [place] [address] Jessica Cortes MD [address] [address] 01/25/2025 9:00 AM EDT Appointment [place] [address] [place] [address] 05/09/2025 11:00 AM EDT Appointment [address] [place] [address] 05/09/2025 11:15 AM EDT Appointment [address] [place] [address] Susana Garay MD [address] [place] [address] [place] [address] Scheduled Referrals Name Type Priority Associated Diagnoses [...] encounter Visit Diagnoses Diagnosis Primary osteoarthritis of right knee- Primary Primary localized osteoarthrosis, lower leg Primary osteoarthritis of left knee Primary localized osteoarthrosis, lower leg Rheumatoid arthritis involving multiple sites with positive rheumatoid factor (HCC) documented in this encounter Orders Nursing Count Last Ordered Date First Orde red Date AMB OC SURGERY COMMUNICATION ORDER 1 2022 documented in this encounter Care Teams Registered Nurse Ambulatory Relationship Specialty Start Date End Date Julisa Kerr MD [address] [place] [address] PCP - General 02/22/11 Jessica Cortes MD [address] [address] Internal Medicine-Rheumatology 04/26/16 Susana Garay MD [address] [facility] [place] [address] Medical Oncologist Internal Medicine-Hematology and Oncology 10/14/22 documented as of this encounter
--- OUTSIDE RECORDS SUMMARY | 2024-08-22 21:40 | XMS_ITS | Encounter Summary ---
Author Organization [place] [address] Care Team Providers Care Freight Associate Name Role Phone Julisa Kerr MD Primary Care Provider [phone] Jessica Cortes MD Unavailable [phone] Susana Garay MD Unavailable [phone] Reason for Visit * Reason Onset Date Comments Medication Refill 08/08/2023 Disp Refills S tart End oxyCODONE-acetaminophen (PERCOCET) 5-325 mg Oral Tablet 20 Tablet 0 06/10/2023 Sig - Route: Take 1 Tablet by mouth every 6 hours as needed for Acute Pain > 3 Days Medically Necessary (R52). - Oral Sent to pharmacy as: oxyCODONE-acetaminophen 5 mg-325 mg tablet (PERCOCET) Earliest Fill Date: 06/10/2023 E-Prescribing Status: Receipt confirmed by pharmacy (06/10/2023 11:57 AM EDT) Encounter Details Date Type Department Care Team (Late st Contact Info) Description 08/08/2023 Telephone [facility] [address] [place] [address] Julisa Kerr MD [address] [place], [place] [id number] Medication Refill (/ Disp Refills Start End /oxyCODONE-acetaminoph en (PERCOCET) 5-325 mg Oral Tablet 20 Tablet 0 06/10/2023 /Sig - Route: Take 1 Tablet by mouth every 6 hours as needed for Acute Pain > 3 Days Medically Necessary (R52). - Oral /Sent to pharmacy as: oxyCODONE-acetaminophe n 5 mg-325 mg tablet (PERCOCET) /Earliest Fill Date: 06/10/2023 /E-Prescribing Status: Receipt confirmed by pharmacy (06/10/2023 11:57 AM EDT) //) Social History Tobacco Use Types Packs/Day Years [...] encounter Miscellaneous Notes * Telephone Encounter - Markos Suggs - 08/08/2023 9:54 AM EST Select the most appropriate reason for this telephone message: Medication Refill Who is requesting the refill: Patient Medication(s)Name/Dosage/Frequency: Disp Refills Start End oxyCODONE-acetaminophen (PERCOCET) 5-325 mg Oral Tablet 20 Tablet 0 06/10/2023 Sig - Route: Take 1 Tablet by mouth every 6 hours as needed for Acute Pain > 3 Days Medically Necessary (R52). - Oral Sent to pharmacy as: oxyCODONE-acetaminophen 5 mg-325 mg tablet (PERCOCET) Earliest Fill Date: 06/10/2023 E-Prescribing Status: Receipt confirmed by pharmacy (06/10/2023 11:57 AM EDT) Did patient contact the pharmacy first: N/A How many days left on hand: 0 Future appt date w/ prescribing provider: no Pharmacy & Location: [facility] Additional Notes: documented in this encounter Plan of Treatment Upcoming Encounters Date Type Department Care Team (Late st Contact Info) Description 08/31/2024 8:30 AM EST [address]ointment [address] [place] [address] 10/25/2024 10:45 AM EST Office Visit [facility] [address] [facility] [address] [place] [address] Jessica Cortes MD [address] [facility] [address] [place] [address] 01/25/2025 9:00 AM EDT Appointment [place] [address] [place] [address] 05/09/2025 11:00 AM EDT [address]ointment [address] [place] [address] 05/09/2025 11:15 AM EDT Appointment [facility] Cancer Care Center [address] [place], [place] [id number] Susana Garay MD [address] [facility] [address] documented as of this encounter Goals Goal Patient Goal Type Associated Problems Recent Progress Patient-Stated? Author Maintain a healthy diet, exercise regularly and maintain an ideal body weight General Porsche Ashley, RN documented as of this encounter Visit Diagnoses Not on filedocumented in this encounter Care Teams Freight Associate Relationship Specialty Start Date End Date Julisa Kerr MD [address] [place] [address] PCP - General 02/22/11 Jessica Cortes MD 651 [facility] [address] [place] [address] Internal Medicine-Rheumatology 04/26/16 Susana Garay MD [address] [facility] [address] Medical Oncologist Internal Medicine-Hematology and Oncology 10/14/22 documented as of this encounter
--- OUTSIDE RECORDS SUMMARY | 2024-08-22 21:40 | XMS_ITS | Encounter Summary ---
Author Organization [place] [address] Care Team Providers Care Biology Laboratory Assistant Name Role Phone Julisa Kerr MD Primary Care Provider [phone] Jessica Cortes MD Unavailable [phone] Susana Garay MD Unavailable [phone] Reason for Visit * Reason Comments Medication Refill Encounter Details Date Type Department Care Team (Late st Contact Info) Description 07/16/2023 Refill [facility] [address] [place] [address] Jessica Cortes MD [address] [place] [address] Medication Refill Social History Tobacco Use Types [...] BY MOUTH EVERY DAY 30 Tablet 1 07/16/2023 08/06/2023 documented in this encounter Miscellaneous Notes * Telephone Encounter - Emerita Carter CCMA - 07/16/2023 9:50 AM EDT Labs- 06/19/23 Follow up- 10/03/23 Awaiting response from patient regarding diclofenac. documented in this encounter Plan of Treatment Upcoming Encounters Date Type Department Care Team (Late st Contact Info) Description 08/31/2024 8:30 AM EST Appointment [address] [place] [address] 10/25/2024 10:45 AM EST Office Visit [facility] [address] [facility] [address] [place] [address] Jessica Cortes MD 651 [facility] 19 [place] [address] 01/25/2025 9:00 AM EDT Appointment [address] [place] [address] 05/09/2025 11:00 AM EDT Appointment [address] [place] [address] 05/09/2025 11:15 AM EDT Appointment [address] [place] [address] Susana Garay MD [address] [facility] [address] [place] [id number] documented as of this encounter Goals Goal Patient Goal Type Associated Problems Recent Progress Patient-Stated? 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, RN documented as of this encounter Visit Diagnoses Diagnosis Rheumatoid arthritis involving multiple sites with positive rheumatoid factor (HCC) documented in this encounter Care Teams Biology Laboratory Assistant Relationship Specialty Start Date End Date Julisa Kerr MD [address] [place] [address] PCP - General 02/22/11 Jessica Cortes MD [address] [place] [address] [facility] [address] [place], [place] [id number] Internal Medicine-Rheumatology 04/26/16 Susana Garay MD [address] [facility] [address] [place], [place] [address] Medical Oncologist Internal Medicine-Hematology and Oncology 10/14/22 documented as of this encounter
--- OUTSIDE RECORDS SUMMARY | 2024-08-22 21:40 | XMS_ITS | Encounter Summary ---
Author Organization [place] [address] Care Team Providers Care Architect Internship Name Role Phone Julisa Kerr MD Primary Care Provider [phone] Jessica Cortes MD Unavailable [phone] Susana Garay MD Unavailable [phone] Reason for Referral * Vascular Imaging (Routine) - Pending Review Specialty Diagnoses / Procedures Referred By Contac t Referred To Contact Radiology Diagnoses Localized swelling of left lower leg Procedures [facility] LOWER EXTREMITY VENOUS LEFT Susana Garay MD [address] [place] [address] [place] [address] Phone: tel: fax: [facility] [address] [place] [address] Phone: tel: fax: Referral ID Status Reason Start Date Expiration Date V isits Requested Visits Authorized [id number] Pending Review 05/26/2023 05/26/2025 1 1 Reason for Visit * Vascular Imaging (Routine) - Pending Review Specialty Diagnoses / Procedures Referred By Contac t Referred To Contact Radiology Diagnoses Localized swelling of left lower leg Procedures [facility] LOWER EXTREMITY VENOUS LEFT Susana Garay MD [address] [place] [address] [place] [address] Phone: tel: fax: [facility] [address] [place] [address] Phone: tel: fax: Referral ID Status Reason Start Date Expiration Date V isits Requested Visits Authorized [id number] Pending Review 05/26/2023 05/26/2025 1 1 Encounter Details Date Type Department Care Team (Latest Contact Info) Description 06/06/2023 1:18 PM EDT - 06/06/2023 11:59 PM EDT Hospital Encounter [facility] [address] [place] [address] Susana Garay MD [address] [facility] [place] [address] Localized swelling of left lower leg Discharge Disposition: Home or Self Care Social History Tobacco Use Types Packs/Day Years Used Date Smoking Tobacco: Never Smokeless Tobacco: Never Alcohol Use Standard Drinks/Week Comments Yes 0 (1 standard drink = 0.6 oz pur e alcohol) occasional PHQ-2 Answer Date Recorded PHQ-2 Total Score 0 03/24/2023 Sexually Active Control Partners Comments Yes Comments [...] 2:17 PM EDT Albin Levy MA * Does this person have serious difficulty walking or climbing stairs? Answer Date of Assessment Author No 02/12/2022 2:17 PM EDT Albin Levy MA * Does this person have difficulty dressing or bathing? Answer Date of Assessment Author No 02/12/2022 2:17 PM EDT Albin Levy MA * Because of a physical, mental or emotional condition, does this person have difficulty doing errands alone such as visiting a doctor's office or shopping? Answer Date of Assessment Author No 02/12/2022 2:17 PM EDT Albin Levy MA documented as of this encounter Mental Status * Because of a physical, mental or emotional condition, does this person have serious difficulty concentrating, remembering or making decisions? Answer Entry Date Author No 02/12/2022 2:17 PM EDT Albin Levy MA documented in this encounter Medications at Time of Discharge ELIQUIS 5 mg Oral TabletIndications :Antiphospholipid syndrome (HCC),History of DVT in adulthood TAKE 1 TABLET BY MOUTH TWICE A DAY 90 Tablet 2 05/14/2023 10/07/2023 documented as of this encounter Discharge Disposition Disposition Code Departure Means Destination Home or Self Care documented in this encounter Plan of Treatment Upcoming Encounters Date Type Department Care Team (Late st Contact Info) Description 08/31/2024 8:30 AM EST [address]ointment [address] [place] [address] 10/25/2024 10:45 AM EST Office Visit [facility] [address] [facility] [address] [place] [address] Jessica Cortes MD 651 [facility] Building [address] [place] [address] 01/25/2025 9:00 AM EDT Appointment [place] [address] [place] [address] 05/09/2025 11:00 AM EDT Appointment [place] [address] [place] [address] 05/09/2025 11:15 AM EDT Appointment [place] [address] [place] [address] Susana Garay MD [address] [place] [address] [place] [address] documented as of this encounter Goals Goal Patient Goal Type Associated Problems Recent Progress Patient-Stated? Author Maintain a healthy diet, exercise regularly and maintain an ideal body weight General Porsche Ashley RN documented as of this encounter Procedures Procedure Name Priority Date/Time Associated Diagnosis Comments [facility] LOWER EXTREMITY VENOUS LEFT Routine 06/06/2023 2:00 PM EDT Localized swelling of left lower leg documented in this encounter Results * [facility] LOWER EXTREMITY VENOUS LEFT (06/06/2023 2:00 PM EDT) Anatomical Region Laterality Modality Vascular, Thigh, Leg Vascular Im aging 06/06/2023 1:25 PM EDT Impressions 06/06/2023 4:39 PM EDT Conclusions ??* The deep veins of the left lower extremity are widely patent and compressible. ??* The left greater saphenous vein is widely patent and compressible. ??* No evidence of thrombosis is noted in the contralateral right common femoral vein. Narrative Procedure Note Pablo Branch Jr., MD - 06/06/2023 IMPRESSION Conclusions * The deep veins of the left lower extremity are widely patent and compressible. * The left greater saphenous vein is widely patent and compressible. * No evidence of thrombosis is noted in the contralateral right common femoral vein. Result [facility] Susana Garay MD G VASCULAR ORDERABLES Final Result documented in this encounter Visit Diagnoses Diagnosis Localized swelling of left lower leg documented in this encounter Care Teams Architect Internship Relationship Specialty Start Date End Date Julisa Kerr MD [address] [place] [address] PCP - General 02/22/11 Jessica Cortes MD [address] [id number] Internal Medicine-Rheumatology 04/26/16 Susana Garay MD [address] [facility] [address] Medical Oncologist Internal Medicine-Hematology and Oncology 10/14/22 documented as of this encounter
--- OUTSIDE RECORDS SUMMARY | 2024-08-22 21:40 | XMS_ITS | Encounter Summary ---
Author Organization [place] [address] Care Team Providers Care Manager Of Software Development Name Role Phone Julisa Kerr MD Primary Care Provider [phone] Jessica Cortes MD Unavailable [phone] Susana Garay MD Unavailable [phone] Reason for Visit * Reason Comments Medication Refill Encounter Details Date Type Department Care Team (Late st Contact Info) Description 07/03/2023 Refill [facility] [address] [place] [id number] Julisa Kerr MD [address] [place] [address] Medication Refill Social History Tobacco Use Types [...] Telephone Encounter - Cherrie Ferrera CPhT - 07/04/2023 7:11 AM EDT Medication refill request deferred to office staff. Yvonne Reason: Medication discontinued or inactive on the medication list documented in this encounter Plan of Treatment Upcoming Encounters Date Type Department Care Team (Late st Contact Info) Description 08/31/2024 8:30 AM EST Appointment [facility] Cancer [facility] Center [address] [place] [address] 10/25/2024 10:45 AM EST Office Visit [facility] [address] [facility] [address] [place] [address] Jessica Cortes MD [address] [facility] [address] [place] [address] 01/25/2025 9:00 AM EDT Appointment [address] [place] [address] 05/09/2025 11:00 AM EDT Appointment [address] [place] [address] 05/09/2025 11:15 AM EDT Appointment [address] [place] [address] Susana Garay MD [address] [facility] [address] [place], [place] [id number] documented as of this encounter Goals Goal Patient Goal Type Associated Problems Recent Progress Patient-Stated? 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, RN documented as of this encounter Visit Diagnoses Not on filedocumented in this encounter Care Teams Manager Of Software Development Relationship Specialty Start Date End Date Julisa Kerr MD [address] [place] [address] PCP - General 02/22/11 Jessica Cortes MD [address] [id number] Internal Medicine-Rheumatology 04/26/16 Susana Garay MD [address] [facility] [address] [place] [id number] Medical Oncologist Internal Medicine-Hematology and Oncology 10/14/22 documented as of this encounter
--- OUTSIDE RECORDS SUMMARY | 2024-08-22 21:40 | XMS_ITS | Encounter Summary ---
Author Organization [place] [address] Care Team Providers Care Stock And Station Agent Name Role Phone Julisa Kerr MD Primary Care Provider [phone] Jessica Cortes MD Unavailable [phone] Susana Garay MD Unavailable [phone] Reason for Visit * Reason Onset Date Comments Central Order Completion Outreach 06/26/2023 mammogram Encounter Details Date Type Department Care Team (Late st Contact Info) Description 06/26/2023 Patient Outreach [facility] [address] [place] [address] Julisa Kerr MD [address] [place] [address] Central Order Completion Outreach (mammogram) Social History Tobacco Use Types Packs/Day Years [...] in this encounter Progress Notes * Rosibel Mcduffie RN - 07/01/2023 9:45 AM EDT SEP Order Completion Outcome Tracking Contact Attempt:: Final Mammogram Outcome:: Screening Scheduled During Order Completion Outreach care gaps addressed are Flu Shot. Mammogram Scheduled 07/02/23 * Liza Saleh, ROLANDO - 06/26/2023 2:59 PM EDT SEP Order Completion Outcome Tracking Contact Attempt:: First Mammogram Outcome:: Left Voicemail to Return Call at [phone], MyChart Message documented in this encounter Plan of Treatment Upcoming Encounters Date Type Department Care Team (Late st Contact Info) Description 08/31/2024 8:30 AM EST Appointment [facility] [address] [place] [address] 10/25/2024 10:45 AM EST Office Visit [facility] [address] [facility] [address] [place] [address] Jessica Cortes MD 651 [facility] 19 [place] [address] 01/25/2025 9:00 AM EDT Appointment [address] [place] [address] 05/09/2025 11:00 AM EDT Appointment [address] [place] [address] 05/09/2025 11:15 AM EDT Appointment [address] [place] [address] Susana Garay MD [address] [place] [address] [place] [address] documented as of this encounter Goals Goal Patient Goal Type Associated Problems Recent Progress Patient-Stated? 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, RN documented as of this encounter Visit Diagnoses Not on filedocumented in this encounter Care Teams Stock And Station Agent Relationship Specialty Start Date End Date Julisa Kerr MD [address] [place] [address] PCP - General 02/22/11 Jessica Cortes MD [address] [place] [address] [id number] Internal Medicine-Rheumatology 04/26/16 Susana Garay MD [address] [place] [address] [place] [address] Medical Oncologist Internal Medicine-Hematology and Oncology 10/14/22 documented as of this encounter
--- OUTSIDE RECORDS SUMMARY | 2024-08-22 21:40 | XMS_ITS | Encounter Summary ---
Author Organization [place] [address] Care Team Providers Care Bods Developer Name Role Phone Julisa Kerr MD Primary Care Provider [phone] Jessica Cortes MD Unavailable [phone] Susana Garay MD Unavailable [phone] Reason for Referral * Mammography (Routine) - Pending Review Specialty Diagnoses / Procedures Referred By Contac t Referred To Contact Radiology Diagnoses Encounter for screening mammogram for breast cancer Procedures MM MAMMO DIGITAL MCKAY SCREEN BILAT Julisa Kerr MD [address] [place] [address] Phone: tel: fax: Referral ID Status Reason Start Date Expiration Date V isits Requested Visits Authorized [id number] Pending Review 06/10/2023 06/10/2025 1 1 Reason for Visit * Reason Comments Pruritus Knee Pain Rt, popping Encounter Details Date Type Department Care Team (Late st Contact Info) Description 06/10/2023 11:00 AM EDT Office Visit [facility] [address] [place] [address] Julisa Kerr MD [address] [place] [id number] Itching (Primary Dx); Encounter for screening mammogram for breast cancer Social History Tobacco Use Types Packs/Day [...] Sign Reading Time Taken Comments Blood Pressure 100/62 06/10/2023 11:22 AM EDT Pulse - - Temperature 36.7 ??C (98 ??F) 06/10/2023 11:22 AM EDT Respiratory Rate - - Oxygen Saturation - - Inhaled Oxygen Concentration - - Weight 61.2 kg (135 lb) 06/10/2023 11:22 AM EDT Height 158.8 cm (5' 2.5 ) 06/10/2023 11:22 AM ED T Body Mass Index 24.3 06/10/2023 11:22 AM EDT documented in this encounter Functional [...] Refills Last Filled Start Date End Date oxyCODONE-acetamin ophen (PERCOCET) 5-325 mg Oral Tablet Take 1 Tablet by mouth every 6 hours as needed for Acute Pain > 3 Days Medically Necessary (R52). 20 Tablet 06/10/2023 4 cefdinir (OMNICEF) 300 mg Oral Capsule Take 1 Capsule by mouth 2 times daily for 10 days. 20 Capsule 06/10/2023 3 predniSONE (DELTASONE) 20 mg Oral TabletIndications: Itching 3 tabs po daily for 3 days, then 2 tabs po daily for 3 days then 1 tab daily for 3 days then 1/2 tab daily for 4 days. 20 Tablet 06/10/2023 3 hydrOXYzine (ATARAX) 25 mg Oral TabletIndications: Itching Take 1 Tablet by mouth 3 times daily as needed. 90 Tablet 2 06/10/2023 3 documented in this encounter Progress Notes * Julisa Kerr MD - 06/10/2023 11:00 AM EDT Vitals: 06/10/23 1122 BP: 100/62 Temp: 98 ??F (36.7 ??C) Weight: 135 lb (61.2 kg) Height: 5' 2.5 (1.588 m) SUBJECTIVE: Chief Complaint Patient presents with Pruritus Knee Pain Rt, popping HPI: Pruritus This is a recurrent problem. The current episode started more than 1 month ago. The problem occurs constantly. The problem has been unchanged. Associated symptoms include a rash. Pertinent negatives include no coughing, fatigue or fever. Knee Pain This is a recurrent problem. The current episode started more than 1 month ago. The problem occurs constantly. The problem has been unchanged. Associated symptoms include itching. Pertinent negativesinclude no fever. Pt is here today for itching, steroid shot if able and for knee pain. Pt would also like to have her ears and throat checked. Review of Systems Constitutional: Negative for fatigue and fever. HENT: Negative. Respiratory: Negative for cough and wheezing. Cardiovascular: Negative. Gastrointestinal: Negative. Endocrine: Negative. Genitourinary: Negative. Musculoskeletal: Negative. Skin: Positive for itching and rash. Neurological: Negative. Hematological: Negative. Psychiatric/Behavioral: Negative. OBJECTIVE: Physical Exam Vitals and nursing note reviewed. HENT: Head: Normocephalic. Cardiovascular: Rate and Rhythm: Normal rate. Heart sounds: No murmur heard. Pulmonary: Effort: Pulmonary effort is normal. Breath sounds: No wheezing. Abdominal: Palpations: Abdomen is soft. Tenderness: There is no abdominal tenderness. Neurological: General: No focal deficit present. Mental Status: She is alert. Psychiatric: Mood and Affect: Mood normal. Assessment Diagnoses and all orders for this visit: Itching - hydrOXYzine (ATARAX) 25 mg Oral Tablet; Take 1 Tablet by mouth 3 times daily as needed. Dispense:90 Tablet; Refill: 2 - BILE ACIDS TOTAL -REF LAB; Future - methylPREDNISolone acetate (DEPO-Medrol) injection 120 mg - predniSONE (DELTASONE) 20 mg Oral Tablet; 3 tabs po daily for 3 days, then 2 tabs po daily for 3 days then 1 tab daily for 3 days then 1/2 tab daily for 4 days. Dispense: 20 Tablet; Refill: 0 Encounter for screening mammogram for breast cancer - MM MAMMO DIGITAL MCKAY SCREEN BILAT; Future Other orders - cefdinir (OMNICEF) 300 mg Oral Capsule; Take 1 Capsule by mouth 2 times daily for 10 days. Dispense: 20 Capsule; Refill: 0 - oxyCODONE-acetaminophen (PERCOCET) 5-325 mg Oral Tablet; Take 1 Tablet by mouth every 6 hours as needed for Acute Pain > 3 Days Medically Necessary (R52). Dispense: 20 Tablet; Refill: 0 documented in this encounter Plan of Treatment Upcoming Encounters Date Type Department Care Team (Late st Contact Info) Description 08/31/2024 8:30 AM EST Appointment [address] [place] [address] 10/25/2024 10:45 AM EST Office Visit [facility] [address] [place] [address] Jessica Cortes MD 651 [facility] Building 19 [place] [address] 01/25/2025 9:00 AM EDT Appointment [place] [address] [place] [address] 05/09/2025 11:00 AM EDT Appointment [place] [address] [address] [address] 05/09/2025 11:15 AM EDT Appointment [place] [address] [place] [address] Susana Garay MD [address] [place] [address] [place] [address] documented as of this encounter Goals Goal Patient Goal Type Associated Problems Recent Progress Patient-Stated? 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 RN documented as of this encounter Results * MM MAMMO DIGITAL MCKAY SCREEN BILAT (02/11/2024 10:55 AM EDT) Anatomical Region Laterality Modality Breast Bilateral Mammography 02/11/2024 12:1 7 PM EDT Impressions 02/11/2024 12:17 PM EDT Negative ??([id number]) ~ RECOMMENDATION: Routine screening mammogram in 1 [...] the next mammogram, in accordance with the [employer] and the Society of Breast Imaging recommendations. Narrative 02/11/2024 12:17 PM EDT Procedure:MM MAMMO DIGITAL MCKAY SCREEN BILAT ~ Reason for exam: screening, asymptomatic. Z12.31-Encounter for screening mammogram for malignant neoplasm of [id number] ~ MM MAMMO DIGITAL MCKAY SCREEN BILAT [...] for screening mammogram for malignant neoplasm of [id number] ~ MM MAMMO DIGITAL MCKAY SCREEN BILAT Bilateral CC and MLO view(s) were taken. The breast tissue is heterogeneously dense. This may lower thesensitivity of mammography. Prior study comparison: None available No mammographic evidence of malignancy. ~ IMPRESSION: Negative ([id number]-5) ~ RECOMMENDATION: Routine screening mammogram in 1 [...] the next mammogram, in accordance with the [employer] and the Society of Breast Imaging recommendations. Julisa Kerr MD [facility] ORDERABLES Fin al Result * BILE ACIDS TOTAL -REF LAB (06/19/2023 3:24 PM EDT) Bile Acids 8 0 - 10 umol/L 06/21/2023 8:22 PM EDT [employer] Comment: INTERPRETIVE INFORMATION: Bile Acids, Total Reference Interval applies to fasting specimens. Performed By: [facility] [address] [place] [address] Supplier Quality Engineer: Thierno Cintron MD, PhD CLIA Number: [id number] Blood VENOUS BLOOD / Unknown Venipuncture / Unknown 06/19/2023 3:24 PM EDT 06/19/2023 3:24 PM EDT us Julisa Kerr MD CHEMISTRY ORDERABLES Final [place] [address] documented in this encounter Visit Diagnoses Diagnosis Itching- Primary Unspecified pruritic disorder Encounter for screening mammogram for breast cancer Encounter for screening mammogram for breast cancer documented in this encounter Administered Medications Inactive Administered Medications - up to 1 most recent administrations Medication Order MAR Action Action Date Dose Rate Site methylPREDNISolone acetate (DEPO-Medrol) injection 120 mg 120 mg, Intramuscular, ONCE, 1 dose, On Fri06/10/23 at 1200, Dx: 1. ItchingIndications:Itch ing Given 06/10/2023 12:00 PM EDT 120 mg Right Upper Outer Quadrant documented in this encounter Discontinued Medications Medication Sig Discontinue Reason Start Date End Da te alendronate (FOSAMAX) 70 mg Oral TabletIndications:Age- related osteoporosis without current pathological fracture Take 1 Tablet by mouth every 7 days. Take in AM with a glass of water and do not take anything else by mouth or lie down for the next 30 min. DELETE-Therapy completed 12/09/2022 06/10/2023 predniSONE (DELTASONE) 20 mg Oral Tablet 3 tabs po daily for 3 days, then 2 tabs po daily for 3 days then 1 tab daily for 3 days. 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 Take in AM with a glass of water and do not take anything else by mouth or lie down for the next 30 min. DELETE-Therapy completed 12/09/2022 06/10/2023 cyanocobalamin 1,000 mcg/mL Inj SolutionIndications:Vi tamin B 12 deficiency INJECT 1ML INTO MUSCLE EVERY MONTH DELETE-Therapy completed 02/17/2023 06/10/2023 methotrexate sodium 25 mg/mL Inj SolutionIndications:Rh eumatoid arthritis involving multiple sites with positive rheumatoid factor (HCC) Subcutaneous (Inject under the skin) 0.8 mL once a week. 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 DELETE-Therapy completed 05/14/2023 06/10/2023 ondansetron (ZOFRAN-ODT) 4 mg Oral Tablet, Rapid DissolveIndications:Ly mphadenopathy, thoracic,Lymphocytosis Take 1 Tablet by mouth every 8 hours as needed for Nausea or Vomiting. 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 DELETE-Therapy completed 05/21/2023 06/10/2023 azithromycin (ZITHROMAX) 250 mg Oral Tablet Take 2 tablets (500 mg) on Day 1, followed by 1 tablet (250 mg) once daily on Days 2 through 5. DELETE-Therapy completed 05/21/2023 06/10/2023 predniSONE (DELTASONE) 20 mg Oral Tablet 3 tabs po daily for 3 days, then 2 tabs po daily for 3 days then 1 tab daily for 3 days. DELETE-Therapy completed 05/23/2023 06/10/2023 documented as of this encounter Care Teams Bods Developer Relationship Specialty Start Date End Date Julisa Kerr MD [address] [id number] PCP - General 02/22/11 Jessica Cortes MD [address] [address] Internal Medicine-Rheumatology 04/26/16 Susana Garay MD [address] [place] [address] Medical Oncologist Internal Medicine-Hematology and Oncology 10/14/22 documented as of this encounter
--- OUTSIDE RECORDS SUMMARY | 2024-08-22 21:40 | XMS_ITS | Encounter Summary ---
Author Organization [place] [address] Care Team Providers Care Apparel Machinery Instructor Name Role Phone Julisa Kerr MD Primary Care Provider [phone] Jessica Cortes MD Unavailable [phone] Susana Garay MD Unavailable [phone] Encounter Details Date Type Department Care Team (Latest Contact Info) Description 08/06/2023 11:10 AM EST Hospital Encounter [facility] [address] [facility] [place] [address] Left without seen Social History Tobacco Use [...] Info) Description 08/31/2024 8:30 AM EST Appointment [place] [address] [place] [address] 10/25/2024 10:45 AM EST Office Visit [facility] [address] [facility] [address] [place] [address] Jessica Cortes MD 651 [facility] Building [address] [place] [address] 01/25/2025 9:00 AM EDT Appointment [place] [address] [place] [address] 05/09/2025 11:00 AM EDT Appointment [place] [address] [address] [address] 05/09/2025 11:15 AM EDT Appointment [place] [address] [place] [address] Susana Garay MD [address] [place] [address] [place] [address] documented as of this encounter Goals Goal Patient Goal Type Associated Problems Recent Progress Patient-Stated? Author Maintain a healthy diet, exercise regularly and maintain an ideal body weight General Porsche Ashley, RN documented as of this encounter Visit Diagnoses Not on filedocumented in this encounter Care Teams Apparel Machinery Instructor Relationship Specialty Start Date End Date Julisa Kerr MD 100 [place] [address] PCP - General 02/22/11 Jessica Cortes MD [address] [address] Internal Medicine-Rheumatology 04/26/16 Susana Garay MD [address] [facility] [place] [address] Medical Oncologist Internal Medicine-Hematology and Oncology 10/14/22 documented as of this encounter
--- OUTSIDE RECORDS SUMMARY | 2024-08-22 21:40 | XMS_ITS | Encounter Summary ---
Author Organization [place] [address] Care Team Providers Care Food Expeditor Name Role Phone Julisa Pat MD Primary Care Provider [phone] Jessica Cortes MD Unavailable [phone] Susana Garay MD Unavailable [phone] Reason for Visit * Reason Onset Date Comments Other 08/13/2023 Walker with whee ls Encounter Details Date Type Department Care Team (Late st Contact Info) Description 08/13/2023 Telephone [facility] 100 [place] [address] Julisa Pat MD 100 [place] [address] Other (Walker with wheels /) Social History Tobacco Use Types Packs/Day Years [...] Refills Last Filled Start Date End Date Walker Rolling MISCELLANEOU 1 Device by MISCELLANEOUS route once for 1 dose. Use as directed. 1 Each 08/17/2023 08/17/20 23 documented in this encounter Miscellaneous Notes * Addendum Note - Julisa Pat MD - 08/17/2023 10:13 AM ESTAddended by: JULISA PAT on: 08/17/2023 10:13 AM Modules accepted: Orders * Telephone Encounter - Markos Suggs - 08/13/2023 11:44 AM EST Select the most appropriate reason for this telephone message: Order Request Who is requesting the Order(s): Patient What Orders are being requested: Durable Medical Equipment (DME) Reason Orders are Needed (Diagnosis): walker with wheels Is a verbal order being requested: No If non-[facility], where should the order be faxed (include fax number): na Frequency: na Additional Notes: Needs for post surgery PT documented in this encounter Plan of Treatment Upcoming Encounters Date Type Department Care Team (Late st Contact Info) Description 08/31/2024 8:30 AM EST Appointment [address] [place] [address] 10/25/2024 10:45 AM EST Office Visit [facility] [address] [place] [address] Jessica Cortes MD [address] [facility] [address] [place] [address] 01/25/2025 9:00 AM EDT Appointment [address] [place] [address] 05/09/2025 11:00 AM EDT Appointment [address] [address] 05/09/2025 11:15 AM EDT Appointment [address] [place] [address] Susana Garay MD [address] [place] [address] documented as of this encounter Goals Goal Patient Goal Type Associated Problems Recent Progress Patient-Stated? 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, RN documented as of this encounter Visit Diagnoses Not on filedocumented in this encounter Care Teams Food Expeditor Relationship Specialty Start Date End Date Julisa Pat MD 100 [place] [address] PCP - General 02/22/11 Jessica Cortes MD 651 [facility] [address] [place] [address] Internal Medicine-Rheumatology 04/26/16 Susana Garay MD [address] [facility] [place] [address] Medical Oncologist Internal Medicine-Hematology and Oncology 10/14/22 documented as of this encounter
--- OUTSIDE RECORDS SUMMARY | 2024-08-22 21:40 | XMS_ITS | Encounter Summary ---
Author Organization [facility] Address [address] [place] [address] Care Team Providers Care Dramatic Arts Historian Name Role Phone Julisa Kerr MD Primary Care Provider [phone] Jessica Cortes MD Unavailable [phone] Susana Garay MD Unavailable [phone] Reason for Visit * Reason Comments Pain Encounter Details Date Type Department Care Team (Latest Contact Info) Description 06/19/2023 8:00 AM EDT Office Visit [facility] [address] [facility] [address] [place], [place] [id number] Jame Webb PA-C [address] [place] [address] Acute pain of left knee (Primary Dx); Primary osteoarthritis of left knee; Primary osteoarthritis of right knee; Tear of medial meniscus of left knee, current, unspecified tear type, initial encounter; Acute torn meniscus of knee, unspecified laterality, initial encounter; Synovial cyst of left popliteal space; Rheumatoid arthritis involving multiple sites with positive [...] - Inhaled Oxygen Concentration - - Weight 61.7 kg (136 lb) 06/19/2023 9:06 AM EDT Height 160 cm (5' 3 ) 06/19/2023 9:06 AM EDT Body Mass Index 24.09 06/19/2023 9:06 AM EDT documented in this [...] Progress Notes * Jame Webb PA-C - 06/19/2023 8:00 AM EDT Images from the original note were not included. [address] [phone] [place] [address] ([phone]) [place], [place] [phone]) [place], [place] Yuliet Trevino 1970 Chief Complaint Patient presents with Left Knee - Pain Subjective: Yuliet Trevino is a 52 y.o. [...] Smoker Has had PT BMI of 24 Social History Substance and Sexual Activity Drug Use No Social History Tobacco Use Smoking Status Never Smokeless Tobacco Never Objective: Review of Systems Constitutional: Negative. Respiratory: Negative. Cardiovascular: Negative. Gastrointestinal: Negative. Musculoskeletal: Positive for joint pain. Skin: Negative. Body mass index is 24.09 kg/m??. On physical examination the patient is alert [...] Diagnoses and all orders for this visit: Acute pain of left knee - Large Joint Injection/Arthrocentesis: bilateral knee Primary osteoarthritis of left knee - Large Joint Injection/Arthrocentesis: bilateral knee Primary osteoarthritis of right knee - Large Joint Injection/Arthrocentesis: bilateral knee Tear of medial meniscus of left knee, current, unspecified tear type, initial encounter - Large Joint Injection/Arthrocentesis: bilateral knee Acute torn meniscus of knee, unspecified laterality, initial encounter - Large Joint Injection/Arthrocentesis: bilateral knee Synovial cyst of left popliteal space - Large Joint Injection/Arthrocentesis: bilateral knee Rheumatoid arthritis involving multiple sites with positive rheumatoid factor (HCC) - Large Joint Injection/Arthrocentesis: bilateral knee PLAN: Recommend conservative treatment Discussed treatment options We will provide a bilateral knee corticosteroid injection today. Under sterile conditions from a superolateral approach a mixture of 2 cc 0.5% Bupivacaine plain and1 cc 40 mg Triamcinolone was injected into the bilaterally knee joint. This was well tolerated by the patient. The patient did have significant improvement in symptomatology within just a few momentsof the injection. Sterile dressing was applied. There were no obvious immediate complications afterthe procedure. I discussed with the patient about monitoring for pain, as well as the standard expectation after an injection. DME Summary No orders found for display * Jame Webb PA-C - 06/19/2023 8:00 AM EDTAssociated Order(s): Large Joint Injection/Arthrocentesis: bilateral knee Post-Procedure Diagnose(s): Acute pain of left knee; Primary osteoarthritis of left knee; Primary osteoarthritis of right knee; Tear of medial meniscus of left knee, current, unspecified tear type, initial encounter; Acute torn meniscus of knee, unspecified laterality, initial encounter; Synovial cyst of left popliteal space; Rheumatoid arthritis involving multiple sites with positive rheumatoid f actor (HCC) Large Joint Injection/Arthrocentesis: bilateral knee on 06/19/2023 8:00 AM Indications: pain and joint swelling Details: 22 G needle, superolateral approach Medications (Right): 40 mg triamcinolone acetonide 40 mg/mL; 2 mL BUPivacaine HCl 0.5 % (5 mg/mL) Medications (Left): 40 mg triamcinolone acetonide 40 mg/mL; 2 mL BUPivacaine HCl 0.5 % (5 mg/mL) Outcome: tolerated well, no immediate complications Procedure, treatment alternatives, risks and benefits explained, specific risks discussed. Consent was given by the patient. Immediately prior to procedure a time out was called to verify the correctpatient, procedure, equipment, network and threat support specialist and site/side marked as required. Patient was prepped and draped in the usual sterile fashion. documented in this encounter Plan of Treatment Upcoming Encounters Date Type Department Care Team (Late st Contact Info) Description 08/31/2024 8:30 AM EST Appointment [address] [place] [address] 10/25/2024 10:45 AM EST Office Visit [facility] [address] [place] [phone] Jessica Cortes MD [address] [facility] Building [address] [place] [address] 01/25/2025 9:00 AM EDT Appointment [place] [address] [place] [address] 05/09/2025 11:00 AM EDT [address]ointment [address] [place] [address] 05/09/2025 11:15 AM EDT [address]ointment [address] [place] [address] Susana Garay MD [address] [place] [address] [address] [place] [id number] documented as of this encounter Goals Goal Patient Goal Type Associated Problems Recent Progress Patient-Stated? 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 RN documented as of this encounter Procedures Procedure Name Priority Date/Time Associated Diagnosis Comments SC ARTHROCENTESIS LARGE JOINT W/O US BILATERAL Routine 06/19/2023 8:00 AM EDT Acute pain of left knee Primary osteoarthritis of left knee Primary osteoarthritis of right knee Tear of medial meniscus of left knee, current, unspecified tear type, initial encounter Acute torn meniscus of knee, unspecified laterality, initial encounter Synovial cyst of left popliteal space Rheumatoid arthritis involving multiple sites with positive rheumatoid factor (HCC) documented in this encounter Results * SC ARTHROCENTESIS LARGE JOINT W/O US BILATERAL (06/19/2023 8:00 AM EDT) Narrative [facility] - 06/19/2023 8:00 AM EDT Jame Webb PA-C ? 07/06/2023 11:51 PM Large Joint Injection/Arthrocentesis: bilateral knee on 06/19/2023 8:00 AM Indications: pain and joint swelling Details: 22 G needle, superolateral approach Medications (Right): 40 mg triamcinolone acetonide 40 mg/mL; 2 mL BUPivacaine HCl 0.5 % (5 mg/mL) Medications (Left): 40 mg triamcinolone acetonide 40 mg/mL; 2 mL BUPivacaine HCl 0.5 % (5 mg/mL) Outcome: tolerated well, no immediate complications Procedure, treatment alternatives, risks and benefits explained, specific risks discussed. Consent was given by the patient. Immediately prior to procedure a time out was called to verify the correct patient, procedure, equipment, network and threat support specialist and site/side marked as required. Patient was prepped and draped in the usual sterile fashion. Jame Webb PA-C PROCEDURE/MINOR SURGICAL ORDE ENLY Final Result [facility] documented in this encounter Visit Diagnoses Diagnosis Acute pain of left knee- Primary Primary osteoarthritis of left knee Primary localized osteoarthrosis, lower leg Primary osteoarthritis of right knee Primary localized osteoarthrosis, lower leg Tear of medial meniscus of left knee, current, unspecified tear type, initial encounter Acute torn meniscus of knee, unspecified laterality, initial encounter Synovial cyst of left popliteal space Synovial cyst of popliteal space Rheumatoid arthritis involving multiple sites with positive rheumatoid factor (HCC) documented in this encounter Administered Medications Inactive Administered Medications - up to 1 most recent administrations Medication Order MAR Action Action Date Dose Rate Site BUPivacaine HCl (MARCAINE) 0.5 % (5 mg/mL) injection 2 mL 2 mL, Intra-articular, ONCE PRN, 1 dose, Starting on Oxana 06/19/23 at 0800, Until Oxana 06/19/23 at 0800, Dx: 1. Acute pain of left knee 2. Primary osteoarthritis of left knee 3. Primary osteoarthritis of right knee 4. Tear of medial meniscus of left knee, current, unspecified tear type, initial encounter 5. Acute torn meniscus of knee, unspecified laterality, initial encounter 6. Synovial cyst of left popliteal space 7. Rheumatoid arthritis involving multiple sites with positive rheumatoid factor (HCC)Indications:Acute pain of left knee,Primary osteoarthritis of left knee,Primary osteoarthritis of right knee,Tear of medial meniscus of left knee, current, unspecified tear type, initial encounter,Acute torn meniscus of knee, unspecified laterality, initial encounter,Synovial cyst of left popliteal space,Rheumatoid arthritis involving multiple sites with positive rheumatoid factor (HCC) Given 06/19/2023 8:00 AM EDT 2 mL Left Knee BUPivacaine HCl (MARCAINE) 0.5 % (5 mg/mL) injection 2 mL 2 mL, Intra-articular, ONCE PRN, 1 dose, Starting on Oxana 06/19/23 at 0800, Until Oxana 06/19/23 at 0800, Dx: 1. Acute pain of left knee 2. Primary osteoarthritis of left knee 3. Primary osteoarthritis of right knee 4. Tear of medial meniscus of left knee, current, unspecified tear type, initial encounter 5. Acute torn meniscus of knee, unspecified laterality, initial encounter 6. Synovial cyst of left popliteal space 7. Rheumatoid arthritis involving multiple sites with positive rheumatoid factor (HCC)Indications:Acute pain of left knee,Primary osteoarthritis of left knee,Primary osteoarthritis of right knee,Tear of medial meniscus of left knee, current, unspecified tear type, initial encounter,Acute torn meniscus of knee, unspecified laterality, initial encounter,Synovial cyst of left popliteal space,Rheumatoid arthritis involving multiple sites with positive rheumatoid factor (HCC) Given 06/19/2023 8:00 AM EDT 2 mL Right Knee triamcinolone acetonide (KENALOG-40) injection 40 mg 40 mg, Intra-articular, ONCE PRN, 1 dose, Starting on Oxana 06/19/23 at 0800, Until Oxana 06/19/23 at 0800, Dx: 1. Acute pain of left knee 2. Primary osteoarthritis of left knee 3. Primary osteoarthritis of right knee 4. Tear of medial meniscus of left knee, current, unspecified tear type, initial encounter 5. Acute torn meniscus of knee, unspecified laterality, initial encounter 6. Synovial cyst of left popliteal space 7. Rheumatoid arthritis involving multiple sites with positive rheumatoid factor (HCC)Indications:Acute pain of left knee,Primary osteoarthritis of left knee,Primary osteoarthritis of right knee,Tear of medial meniscus of left knee, current, unspecified tear type, initial encounter,Acute torn meniscus of knee, unspecified laterality, initial encounter,Synovial cyst of left popliteal space,Rheumatoid arthritis involving multiple sites with positive rheumatoid factor (HCC) Given 06/19/2023 8:00 AM EDT 40 mg Left Knee triamcinolone acetonide (KENALOG-40) injection 40 mg 40 mg, Intra-articular, ONCE PRN, 1 dose, Starting on Oxana 06/19/23 at 0800, Until Oxana 06/19/23 at 0800, Dx: 1. Acute pain of left knee 2. Primary osteoarthritis of left knee 3. Primary osteoarthritis of right knee 4. Tear of medial meniscus of left knee, current, unspecified tear type, initial encounter 5. Acute torn meniscus of knee, unspecified laterality, initial encounter 6. Synovial cyst of left popliteal space 7. Rheumatoid arthritis involving multiple sites with positive rheumatoid factor (HCC)Indications:Acute pain of left knee,Primary osteoarthritis of left knee,Primary osteoarthritis of right knee,Tear of medial meniscus of left knee, current, unspecified tear type, initial encounter,Acute torn meniscus of knee, unspecified laterality, initial encounter,Synovial cyst of left popliteal space,Rheumatoid arthritis involving multiple sites with positive rheumatoid factor (HCC) Given 06/19/2023 8:00 AM EDT 40 mg Right Knee documented in this encounter Care Teams Dramatic Arts Historian Relationship Specialty Start Date End Date Julisa Kerr MD [address] [place] [id number] PCP - General 02/22/11 Jessica Cortes MD [address] [place] [id number] Internal Medicine-Rheumatology 04/26/16 Susana Garay MD [address] [place] [address] [place], [place] [id number] Medical Oncologist Internal Medicine-Hematology and Oncology 10/14/22 documented as of this encounter
--- OUTSIDE RECORDS SUMMARY | 2024-08-22 21:41 | XMS_ITS | Encounter Summary ---
Author Organization [place] [address] Care Team Providers Care Traveling Nurse Name Role Phone Julisa Kerr MD Primary Care Provider [phone] Jessica Cortes MD Unavailable [phone] Susana Garay MD Unavailable [phone] Reason for Visit * Reason Onset Date Comments Schedule Appointment 05/15/2023 Need regula r follow up appointment Encounter Details Date Type Department Care Team (Late st Contact Info) Description 05/15/2023 Telephone Cancer Care Medical Oncology [place] [phone] Susana Garay MD [address] [place] [address] Schedule Appointment (Need regular follow up appointment) Social History Tobacco Use Types Packs/Day Years [...] Albin Levy MA documented in this encounter Miscellaneous Notes * Telephone Encounter - Lauren Yuen - 05/16/2023 3:24 PM EDT LVM * Telephone Encounter - Rebeca Yusuf RN - 05/15/2023 4:35 PM EDT Leukocytosis, unspecified type Referred by Julisa Kerr MD Patient already established with Dr Garay (less than 3 years since last seen). Last seen 10/15/22 for Antiphospholipid syndrome. No follow up on file. Will route to scheduling to schedule regular follow up. Will route to clinic RN for follow up. I will cancel referral. documented in this encounter Plan of Treatment Upcoming Encounters Date Type Department Care Team (Late st Contact Info) Description 08/31/2024 8:30 AM EST Appointment [address] [address] 10/25/2024 10:45 AM EST Office Visit [facility] [address] [place] [phone] Jessica Cortes MD [address] [place] [address] 01/25/2025 9:00 AM EDT Appointment [address] [address] 05/09/2025 11:00 AM EDT Appointment [address] [address] 05/09/2025 11:15 AM EDT Appointment [address] [address] Susana Garay MD [address] [place], [place] [id number] documented as of this encounter Goals Goal Patient Goal Type Associated Problems Recent Progress Patient-Stated? Author Maintain a healthy diet, exercise regularly and maintain an ideal body weight General Porsche Ashley, RN documented as of this encounter Visit Diagnoses Not on filedocumented in this encounter Care Teams Traveling Nurse Relationship Specialty Start Date End Date Julisa Kerr MD [address] [place], [place] [phone] PCP - General 02/22/11 Jessica Cortes MD [address] [place] [address] Internal Medicine-Rheumatology 04/26/16 Susana Garay MD [address] [facility] [address] [place], [place] [address] Medical Oncologist Internal Medicine-Hematology and Oncology 10/14/22 documented as of this encounter
--- OUTSIDE RECORDS SUMMARY | 2024-08-22 21:41 | XMS_ITS | Encounter Summary ---
Author Organization [place] [address] Care Team Providers Care Graphic User Interface Designer Name Role Phone Julisa Kerr MD Primary Care Provider [phone] Jessica Cortes MD Unavailable [phone] Susana Garay MD Unavailable [phone] Reason for Visit * Reason Onset Date Comments Medication Refill 05/21/2023 Encounter Details Date Type Department Care Team (Late st Contact Info) Description 05/21/2023 Refill [facility] [address] [place] [phone] Jhon Peña, AGILE SCRUM MASTER [address] [place], [place] [phone] Medication Refill Social History Tobacco Use Types [...] Albin Levy MA documented in this encounter Ordered Prescriptions Prescription Sig Dispense Quantity Refills Last Filled Start Date End Date fUROsemide (LASIX) 20 mg Oral TabletIndications: Bilateral lower extremity edema Take 1 Tablet by mouth daily as needed. 30 Tablet 05/21/2023 06/10/2023 documented in this encounter Plan of Treatment Upcoming Encounters Date Type Department Care Team (Late st Contact Info) Description 08/31/2024 8:30 AM EST Appointment [facility] [address] [place] [address] 10/25/2024 10:45 AM EST Office Visit [facility] [address] [facility] [address] [place] [address] Jessica Cortes MD [address] [facility] [address] [place] [address] 01/25/2025 9:00 AM EDT Appointment [address] [place] [address] 05/09/2025 11:00 AM EDT Appointment [address] [place] [address] 05/09/2025 11:15 AM EDT [address]ointment [address] [place] [address] Susana Garay MD [address] [facility] [address] [place], [place] [phone] documented as of this encounter Goals Goal [...] mg Oral TabletIndications:Bilate ral lower extremity edema Take 1 Tablet by mouth daily as needed. Reorder 04/28/2023 05/21/2023 documented as of this encounter Care Teams Graphic User Interface Designer Relationship Specialty Start Date End Date Julisa Kerr MD [address] [place], [place] [phone] PCP - General 02/22/11 Jessica Cortes MD [address] [facility] [address] [place] [address] Internal Medicine-Rheumatology 04/26/16 Susana Garay MD [address] [facility] [address] Medical Oncologist Internal Medicine-Hematology and Oncology 10/14/22 documented as of this encounter
--- OUTSIDE RECORDS SUMMARY | 2024-08-22 21:41 | XMS_ITS | Encounter Summary ---
Author Organization [place] [address] Care Team Providers Care Pension Manager Name Role Phone Julisa Kerr MD Primary Care Provider Jessica Cortes MD Unavailable [phone] Susana Garay MD Unavailable [phone] Reason for Referral * MRI/CAT Scan (Routine) - Closed Specialty Diagnoses / Procedures Referred By Contac t Referred To Contact Radiology Diagnoses Knee mass, left Procedures MRI KNEE LEFT WO CONTRAST Julisa Kerr MD [address] [place] [address] Phone: tel: fax: [facility] [address] [place] [address] Phone: tel: Referral ID Status Reason Start Date Expiration Date Visits Re quested Visits Authorized [id number] Closed 05/14/2023 05/13/2024 1 0 * MRI/CAT Scan (Urgent) - Closed Specialty Diagnoses / Procedures Referred By Contac t Referred To Contact Radiology Diagnoses Lymphadenopathy, thoracic Lymphocytosis Enlarged lymph nodes Procedures CT CHEST W CONTRAST Julisa Kerr MD [address] [place] [address] Phone: tel: fax: [facility] [address] [place] [address] Phone: tel: Referral ID Status Reason Start Date Expiration Date Visits Re quested Visits Authorized [id number] Closed 05/14/2023 05/13/2024 1 1 Reason for Visit * Reason Comments Leg Swelling Leg Pain Knee Pain Adenopathy Encounter Details Date Type Department Care Team (Late st Contact Info) Description 05/14/2023 8:30 AM EDT Office Visit [facility] [address] [place] [address] Julisa Kerr MD [address] [place] [address] Lymphadenopathy, thoracic (Primary Dx); Lymphocytosis; Rheumatoid arthritis involving multiple sites with positive rheumatoid factor (HCC); Acute bilateral low back pain without sciatica; Antiphospholipid syndrome (HCC); Immunocompromised patient (HCC); Enlarged lymph nodes; Knee mass, left Social History Tobacco Use Types Packs/Day Years [...] AM EDT documented as of this encounter Last Filed Vital Signs Vital Sign Reading Time Taken Comments Blood Pressure 104/70 05/14/2023 8:59 AM EDT Pulse - - Temperature - - Respiratory Rate - - Oxygen Saturation - - Inhaled Oxygen Concentration - - Weight 62.6 kg (138 lb) 05/14/2023 8:59 AM EDT Height 157.5 cm (5' 2 ) 05/14/2023 8:59 AM EDT Body Mass Index 25.24 05/14/2023 8:59 AM EDT documented in this encounter Functional [...] Refills Last Filled Start Date End Date ondansetron (ZOFRAN-ODT) 4 mg Oral Tablet, Rapid DissolveIndication s:Lymphadenopathy, thoracic,Lymphocyt osis Take 1 Tablet by mouth every 8 hours as needed for Nausea or Vomiting. 20 Tablet 05/14/2023 3 HYDROcodone-acetam inophen (NORCO) 5-325 mg Oral TabletIndications: Lymphadenopathy, thoracic,Lymphocyt osis Take 1 Tablet by mouth every 4 hours as needed for Acute Pain > 3 Days Medically Necessary (R52) for up to 3 days. 12 Tablet 05/14/2023 3 gabapentin (NEURONTIN) 600 mg Oral TabletIndications: Rheumatoid arthritis involving multiple sites with positive rheumatoid factor (HCC),Acute bilateral low back pain without sciatica Take 1 Tablet by mouth nightly. 30 Tablet 2 05/14/2023 3 documented in this encounter Progress Notes * Julisa Kerr MD - 05/14/2023 8:30 AM EDT Vitals: 05/14/23 0859 BP: 104/70 Weight: 138 lb (62.6 kg) Height: 5' 2 (1.575 m) SUBJECTIVE: Chief Complaint Patient presents with Leg Swelling Leg Pain Knee Pain Adenopathy HPI: Leg Swelling This is a new problem. The current episode started more than 1 month ago. The problem occurs constantly. The problem has been unchanged. Associated symptoms include arthralgias and joint swelling. Pertinent negatives include no abdominal pain, coughing or fatigue. The symptoms are aggravated by walking and standing. Leg Pain The pain is present in the left knee, left upper leg, left lower leg, right lower leg, right upper leg and right knee. This is a new problem. The current episode started more than 1 month ago. There has been no history of extremity trauma. The problem occurs constantly. The symptoms are aggravated by standing. Knee Pain The current episode started more than 1 month ago. There has been no history of extremity trauma. The problem occurs constantly. The quality of the pain is described as aching, pounding and sharp. The symptoms are aggravated by standing. Patient has pain/swelling in legs and knees. Review of Systems Constitutional: Negative for fatigue. HENT: Negative. Respiratory: Negative for cough and wheezing. Cardiovascular: Negative. Gastrointestinal: Negative for abdominal pain and diarrhea. Musculoskeletal: Positive for arthralgias, back pain and joint swelling. Skin: Negative. Neurological: Negative. Hematological: Positive for adenopathy. Psychiatric/Behavioral: Negative. OBJECTIVE: Physical Exam Vitals and nursing note reviewed. HENT: Head: Normocephalic. Cardiovascular: Rate and Rhythm: Normal rate. Heart sounds: No murmur heard. Pulmonary: Effort: Pulmonary effort is normal. Breath sounds: No wheezing. Abdominal: Palpations: Abdomen is soft. Tenderness: There is no abdominal tenderness. Musculoskeletal: General: Swelling and tenderness present. Neurological: General: No focal deficit present. Mental Status: She is alert. Psychiatric: Mood and Affect: Mood normal. Assessment Diagnoses and all orders for this visit: Lymphadenopathy, thoracic - PERIPHERAL SMEAR/PATH REVIEW; Future - CBC WITH DIFF; Future - COMPREHENSIVE METABOLIC PANEL; Future - TSH REFLEX; Future - URIC ACID; Future - CT CHEST W CONTRAST; Future - HYDROcodone-acetaminophen (NORCO) 5-325 mg Oral Tablet; Take 1 Tablet by mouth every 4 hours as needed for Acute Pain > 3 Days Medically Necessary (R52) for up to 3 days. Dispense: 12 Tablet; Refill: 0 - ondansetron (ZOFRAN-ODT) 4 mg Oral Tablet, Rapid Dissolve; Take 1 Tablet by mouth every 8 hours as needed for Nausea or Vomiting. Dispense: 20 Tablet; Refill: 0 Lymphocytosis - PERIPHERAL SMEAR/PATH REVIEW; Future - CBC WITH DIFF; Future - COMPREHENSIVE METABOLIC PANEL; Future - TSH REFLEX; Future - URIC ACID; Future - CT CHEST W CONTRAST; Future - HYDROcodone-acetaminophen (NORCO) 5-325 mg Oral Tablet; Take 1 Tablet by mouth every 4 hours as needed for Acute Pain > 3 Days Medically Necessary (R52) for up to 3 days. Dispense: 12 Tablet; Refill: 0 - ondansetron (ZOFRAN-ODT) 4 mg Oral Tablet, Rapid Dissolve; Take 1 Tablet by mouth every 8 hours as needed for Nausea or Vomiting. Dispense: 20 Tablet; Refill: 0 Rheumatoid arthritis involving multiple sites with positive rheumatoid factor (HCC) (Chronic) - gabapentin (NEURONTIN) 600 mg Oral Tablet; Take 1 Tablet by mouth nightly. Dispense: 30 Tablet; Refill: 2 stable Acute bilateral low back pain without sciatica - gabapentin (NEURONTIN) 600 mg Oral Tablet; Take 1 Tablet by mouth nightly. Dispense: 30 Tablet; Refill: 2 Antiphospholipid syndrome (HCC) (Chronic) stable Immunocompromised patient (HCC) (Chronic) stable Enlarged lymph nodes - PERIPHERAL SMEAR/PATH REVIEW; Future - CBC WITH DIFF; Future - COMPREHENSIVE METABOLIC PANEL; Future - TSH REFLEX; Future - URIC ACID; Future - CT CHEST W CONTRAST; Future Knee mass, left - MRI KNEE LEFT WO CONTRAST; Future documented in this encounter Plan of Treatment Upcoming Encounters Date Type Department Care Team (Late st Contact Info) Description 08/31/2024 8:30 AM EST Appointment [facility] [place] [address] [place] [address] 10/25/2024 10:45 AM EST Office Visit [facility] [address] [place] [address] Jessica Cortes MD [address] [facility] [address] [place] [address] 01/25/2025 9:00 AM EDT Appointment [place] [address] [place] [address] 05/09/2025 11:00 AM EDT Appointment [place] [address] [address] 05/09/2025 11:15 AM EDT Appointment [place] [address] [place] [address] Susana Garay MD [address] [place] [address] documented as of this encounter Goals Goal Patient Goal Type Associated Problems Recent Progress Patient-Stated? Author Maintain a healthy diet, exercise regularly and maintain an ideal body weight General Porsche Ashley, RN documented as of this encounter Procedures Procedure Name Priority Date/Time Associated Diagnosis Comments SCANNED LABS 05/21/2023 6:52 AM EDT TSH REFLEX Routine 05/14/2023 9:51 AM EDT Lymphadenopathy, thoracic Lymphocytosis Enlarged lymph nodes PERIPHERAL SMEAR/PATH REVIEW Routine 05/14/2023 9:51 AM EDT Lymphadenopathy, thoracic Lymphocytosis Enlarged lymph nodes CBC WITH DIFF Routine 05/14/2023 9:51 AM EDT Lymphadenopathy, thoracic Lymphocytosis Enlarged lymph nodes URIC ACID Routine 05/14/2023 9:51 AM EDT Lymphadenopathy, thoracic Lymphocytosis Enlarged lymph nodes COMPREHENSIVE METABOLIC PANEL Routine 05/14/2023 9:51 AM EDT Lymphadenopathy, thoracic Lymphocytosis Enlarged lymph nodes documented in this encounter Results * MRI [...] ??R22.42-Localized swelling, mass and lump, left lower [id number]-44-CM COMPARISON: None. TECHNIQUE: Multiplanar, multisequence MR images [...] R22.42-Localized swelling, mass and lump, left lower [id number]-IPN-53-CM COMPARISON: None. TECHNIQUE: Multiplanar, multisequence MR images [...] MD IMG MRI ORDERABLES Final Resul t * CT CHEST W CONTRAST (05/23/2023 3:52 PM EDT) Anatomical Region Laterality Modality Chest Computed Tomogra phy 05/23/2023 3:52 PM EDT Impressions 05/23/2023 4:05 PM EDT Mildly enlarged right axillary lymph nodes measuring up to 1.0 cm in short axis Thank you abnormality in the chest. - Note: Radiology results need to be interpreted within a comprehensive clinical context. ??If you have questions about the radiology report, please contact the office of the ordering clinician. Narrative 05/23/2023 4:[address] CHEST WITH CONTRAST, ??05/23/2023 3:52 PM CLINICAL HISTORY: ??R59.0-Localized enlarged lymph igibz-EUJ-69-CM D72.820-Lymphocytosis (symptomatic)-ICD-10-CM R59.9-Enlarged lymph nodes, jppwpzfhbdh-DFJ-15-CM. COMPARISON: ??None. PROCEDURE COMMENTS: Multi detector CT scanning of the chest. Multiplanar reconstructions per protocol. Isovue 370 IV contrast given as recorded in EPIC. Dose 1 : CT DLP Total : 147.1 mGycm DLP Spiral Max : 147.1 mGycm Maximum CTDI Vol : 4.2 mGy SSDE : 5.964 mGy SSDE Diameter : 26.2 cm SSDE Source : [employer] FINDINGS: ??Right axillary lymph node measures approximately 1.0 cm in short axis (image 19). Additional right lymphadenopathy. Mildly prominent left lymph nodes, though no pathologic left axillary lymphadenopathy. No hilar lymphadenopathy. No acute abnormality of the aorta. No central pulmonary artery embolism. Trachea is patent. No acute parenchymal abnormality. No suspicious pulmonary nodule. No effusion or pneumothorax. Coronary artery calcification: None. Procedure Note Louis Tian MD - 05/23/2023 CT CHEST WITH CONTRAST, 05/23/2023 3:52 PM CLINICAL HISTORY: R59.0-Localized enlarged lymph hueqb-RUQ-60-CM D72.820-Lymphocytosis (symptomatic)-ICD-10-CM R59.9-Enlarged lymph nodes, xrrqujslxyg-[id number]-CM. COMPARISON: None. PROCEDURE COMMENTS: Multi detector CT scanning of the chest. Multiplanar reconstructions per protocol. Isovue 370 IV contrast given as recorded inEPIC. Dose 1 : CT DLP Total : 147.1 mGycm DLP Spiral Max : 147.1 mGycm Maximum CTDI Vol : 4.2 mGy SSDE : 5.964 mGy SSDE Diameter : 26.2 cm SSDE Source : [employer] FINDINGS: Right axillary lymph node measures approximately 1.0 cm inshort axis (image 19). Additional right lymphadenopathy. Mildly prominent left lymphnodes, though no pathologic left axillary lymphadenopathy. No hilarlymphadenopathy. No acute abnormality of the aorta. No central pulmonary artery embolism. Trachea is patent. No acute parenchymal abnormality. No suspiciouspulmonary nodule. No effusion or pneumothorax. Coronary artery calcification: None. IMPRESSION: Mildly enlarged right axillary lymph nodes measuring up to 1.0 cm in shortaxis Thank you abnormality in the chest. - Note: Radiology results need to be interpreted within a comprehensiveclinical context. If you have questions about the radiology report, please contactthe office of the ordering clinician. us Julisa Kerr MD [facility] [place] ORDERABLES Final Result * SCANNED LABS (05/21/2023 6:52 AM EDT) 05/21/2023 6:52 AM EDT us Unknown Provider HEMATOLOGY ORDERABLES Final Res ult * URIC ACID (05/14/2023 9:51 AM EDT) Uric Acid 4.3 2.4 - 5.7 mg/dL 05/14/2023 4:26 PM EDT [employer] Blood VENOUS BLOOD / Unknown Venipuncture / Unknown 05/14/2023 9:51 AM EDT 05/14/2023 9:51 AM EDT us Julisa Kerr MD CHEMISTRY ORDERABLES Final Res ult Performing Organization Address [facility] de Phone Number PREFERRED LAB [facility] [address] [facility] , [place] [id number] * TSH REFLEX (05/14/2023 9:51 AM EDT) TSH Reflex 1.130 0.270 - 4.200 mcIU/mL 05/14/2023 4:26 PM EDT PREFERRED [facility] [employer], [facility] Blood VENOUS BLOOD / Unknown Venipuncture / Unknown 05/14/2023 9:51 AM EDT 05/14/2023 9:51 AM EDT Narrative PREFERRED [facility] [employer], [facility] - 05/14/2023 4:26 PM EDT Ingestion of beverley doses of biotin (>5 mg/day) taken within 8 hours of drawing blood sample can interfere with this immunoassay test. us Julisa Kerr MD CHEMISTRY ORDERABLES Final Res ult Performing Organization Address [facility] de Phone Number [facility] [address] [facility] , [place] [address] * (ABNORMAL) COMPREHENSIVE METABOLIC PANEL (05/14/2023 9:51 AM EDT) Sodium 135(L) 136 - 145 mmol/L 05/14/2023 7:03 PM EDT [facility] Potassium 4.2 3.5 - 5.0 mmol/L 05/14/2023 7:03 PM EDT [facility] Chloride 97(L) 98 - 107 mmol/L 05/14/2023 7:03 PM EDT [facility] Total CO2 23 22 - 29 mmol/L 05/14/2023 7:03 PM EDT [facility] Anion Gap 15 7 - 16 mmol/L 05/14/2023 7:03 PM EDT [facility] Calcium 9.6 8.6 - 10.4 mg/dL 05/14/2023 7:03 PM EDT [facility] Glucose Lvl 83 74 - 100 mg/dL 05/14/2023 7:03 PM EDT [facility] BUN 8 6 - 20 mg/dL 05/14/2023 7:03 PM EDT [facility] Creatinine 0.94 0.51 - 1.30 mg/dL 05/14/2023 7:03 PM EDT [facility] Albumin 3.6 3.5 - 5.2 gm/dL 05/14/2023 7:03 PM EDT [facility] Total Protein 6.3(L) 6.4 - 8.3 gm/dL 05/14/2023 7:03 PM EDT [facility] Bili Total 0.8 0.2 - 1.3 mg/dL 05/14/2023 7:03 PM EDT [facility] ALT 14 <=41 U/L 05/14/2023 7:03 PM EDT [facility] AST 17 <=40 U/L 05/14/2023 7:03 PM EDT [facility] Alk Phos 79 36 - 123 U/L 05/14/2023 7:03 PM EDT [facility] eGFR (CKD-EPIcr 2020) 73 >=60 mL/min/1.7 3 m2 05/14/2023 7:03 PM EDT [facility] Comment:Estimated GFR was ca lculated using the CKD-EPIcr (2020) equation refit without race. The equation is recommended by the National Kidney Foundation - [place] [employer] of Nephrology Task Force. Blood VENOUS BLOOD / Unknown Venipuncture / Unknown 05/14/2023 9:51 AM EDT 05/14/2023 9:51 AM EDT us Julisa Kerr MD CHEMISTRY ORDERABLES Final Res ult [facility], [address] [place] [address] [facility] [address] [place], [place] [id number] * (ABNORMAL) CBC WITH DIFF (05/14/2023 9:51 AM EDT) WBC 12.3(H) 3.7 - 10.3 x10(3)/mcL 05/14/2023 2:50 PM EDT [facility] RBC 5.03 3.90 - 5.20 x10(6)/mcL 05/14/2023 2:50 PM EDT [facility] Hgb 13.4 11.2 - 15.7 g/dL 05/14/2023 2:50 PM EDT [facility] Hct 43.6 34.0 - 45.0 % 05/14/2023 2:50 PM EDT [facility] MCV 86.7 80.0 - 100.0 fL 05/14/2023 2:50 PM EDT [facility] MCH 26.6 26.0 - 34.0 pg 05/14/2023 2:50 PM EDT [facility] MCHC 30.7 30.7 - 35.5 g/dL 05/14/2023 2:50 PM EDT [facility] RDW 14.4 <=14.9 % 05/14/2023 2:50 PM EDT [facility] Platelet 332 155 - 369 x10(3)/mcL 05/14/2023 2:50 PM EDT [facility] MPV 11.2 8.8 - 12.5 fL 05/14/2023 2:50 PM EDT [facility] Neut Percent 68.2 % 05/14/2023 2:50 PM EDT [facility] Comment:Neutrophils equals s egs plus bands Imm Gran% 1.1 % 05/14/2023 2:50 PM EDT [facility] Comment:Automated count of m etamyelocytes, myelocytes and promyelocytes. IG >1% represents a left shift and provides an early indication of an infection or inflammatory process. Lymph Percent 13.5 % 05/14/2023 2:50 PM EDT [facility] [place] Percent 14.8 % 05/14/2023 2:50 PM EDT [facility] Eos Percent 1.7 % 05/14/2023 2:50 PM EDT [facility] Baso Percent 0.7 % 05/14/2023 2:50 PM EDT [facility] Neut # 8.4(H) 1.6 - 6.1 x10(3)/[facility] 05/14/2023 2:50 PM EDT [facility] Comment:Neutrophils equals s egs plus bands IMMGRAN# 0.1 0.0 - 0.1 x10(3)/[facility] 05/14/2023 2:50 PM EDT [facility] Comment:Automated count of m etamyelocytes, myelocytes and promyelocytes. An absolute IG <0.1 is reported as 0.0. Lymph # 1.7 1.2 - 3.9 x10(3)/[facility] 05/14/2023 2:50 PM EDT [facility] [place] # 1.8(H) 0.3 - 0.9 x10(3)/[facility] 05/14/2023 2:50 PM EDT [facility] Eos# 0.2 0.0 - 0.5 x10(3)/[facility] 05/14/2023 2:50 PM EDT [facility] Baso # 0.1 0.0 - 0.1 x10(3)/[facility] 05/14/2023 2:50 PM EDT [facility] Blood VENOUS BLOOD / Unknown Venipuncture / Unknown 05/14/2023 9:51 AM EDT 05/14/2023 9:51 AM EDT us Julisa Kerr MD HEMATOLOGY ORDERABLES Final Re sult [facility] [address] [facility] , [place] [address] * PERIPHERAL SMEAR/PATH REVIEW (05/14/2023 9:51 AM EDT) Pathologist Review The red blood cells are normocytic normochromic and normal in number. No increased polychromasia or schistocytes are noted. The white blood cells are increased in number and show lens assorter maturation. No atypical lymphocytes, dysplastic neutrophils or blasts are noted. The platelets are normal in number and morphology. Mild leukocytosis is present. No atypical lymphocytes, dysplastic neutrophils or blasts are noted. Leukocytosis may be seen in reactive conditions as well as early myeloproliferative disorders. A hematology consultation and clinical correlation are recommended. Jessica Leslie M.D. Ph.D Pathologist 05/15/2023 11:57 AM EDT [facility] Blood VENOUS BLOOD / Unknown Venipuncture / Unknown 05/14/2023 9:51 AM EDT 05/14/2023 9:51 AM EDT us Julisa Kerr MD HEMATOLOGY ORDERABLES Final Re sult [facility] [address] [place] [address] documented in this encounter Visit Diagnoses Diagnosis Lymphadenopathy, thoracic- Primary Lymphocytosis Lymphocytosis (symptomatic) Rheumatoid arthritis involving multiple sites with positive rheumatoid factor (HCC) Acute bilateral low back pain without sciatica Antiphospholipid syndrome (HCC) Primary hypercoagulable state Immunocompromised patient (HCC) Unspecified immunity deficiency Enlarged lymph nodes Enlargement of lymph nodes Knee mass, left Lymphadenopathy, thoracic Lymphocytosis Lymphocytosis (symptomatic) Enlarged lymph nodes Enlargement of lymph nodes Knee mass, left documented in this encounter Care Teams Pension Manager Relationship Specialty Start Date End Date Julisa Kerr MD [address] [place] [id number] PCP - General 02/22/11 Jessica Cortes MD [address] [place] [phone] Internal Medicine-Rheumatology 04/26/16 Susana Garay MD [address] [place] [address] Medical Oncologist Internal Medicine-Hematology and Oncology 10/14/22 documented as of this encounter
--- OUTSIDE RECORDS SUMMARY | 2024-08-22 21:41 | XMS_ITS | Encounter Summary ---
Author Organization [place] [address] Care Team Providers Care Revolving Inventory Clerk Name Role Phone Julisa Kerr MD Primary Care Provider [phone] Jessica Cortes MD Unavailable [phone] Susana Garay MD Unavailable [phone] Encounter Details Date Type Department Care Team (Latest Contact Info) Description 05/17/2023 7:59 AM EDT - 05/17/2023 11:59 PM EDT Hospital Encounter [facility] [address] [place] [address] Chronic fatigue; History of anabolic steroid use Discharge Disposition: Home or Self Care Social [...] A DAY 90 Tablet 2 05/14/2023 10/07/2023 leflunomide (ARAVA) 10 mg Oral TabletIndications :Rheumatoid arthritis involving multiple sites with positive rheumatoid factor (HCC) TAKE 1 TABLET BY MOUTH EVERY DAY 30 Tablet 04/21/2023 05/19/2023 documented as of this encounter Discharge Disposition Disposition Code Departure Means Destination Home or Self Care documented in this encounter Plan of Treatment Upcoming Encounters Date Type Department Care Team (Late st Contact Info) Description 08/31/2024 8:30 AM EST Appointment [facility] [address] [place] [address] 10/25/2024 10:45 AM EST Office Visit [facility] [address] [place] [address] Jessica Cortes MD 651 [facility] Building [address] [place] [address] 01/25/2025 9:00 AM EDT Appointment [place] [address] [place] [address] 05/09/2025 11:00 AM EDT Appointment [place] [address] [place] [address] 05/09/2025 11:15 AM EDT Appointment [place] [address] [place] [address] Susana Garay MD [address] [place] [address] [place] [address] documented as of this encounter Goals Goal Patient Goal Type Associated Problems Recent Progress Patient-Stated? 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 RN documented as of this encounter Procedures Procedure Name Priority Date/Time Associated Diagnosis Comments ADRENOCORTICOTROPIC HORMONE -REF LAB Routine 05/17/2023 7:58 AM EDT Chronic fatigue History of anabolic steroid use CORTISOL Routine 05/17/2023 7:58 AM EDT Chronic fatigue History of anabolic steroid use COMPREHENSIVE METABOLIC PANEL Routine 05/17/2023 7:58 AM EDT Chronic fatigue History of anabolic steroid use documented in this encounter Results * ADRENOCORTICOTROPIC HORMONE -REF LAB (05/17/2023 7:58 AM EDT) [facility] ACTH 22.1 7.2 - 63.3 pg/mL 05/19/2023 6:29 PM EDT [facility] Comment: INTERPRETIVE INFORMATION: Adrenocorticotropic Hormone Reference interval based on samples collected between 7 a.m. and 10 a.m. ??No reference intervals established for p.m. collections. ?? Pediatric reference values are the same as adults (Acta Paediatr Scand 1981;70:341-345). ??This assay measures intact ACTH 1-39; some types of synthetic ACTH and ACTH fragments are not detected by this assay. Performed By: [facility] [address] [place] [address] Sales Development Director: Thierno Cintron MD, PhD CLIA Number: [id number] Blood VENOUS BLOOD / Unknown Venipuncture / Unknown 05/17/2023 7:58 AM EDT 05/17/2023 7:58 AM EDT us Julisa Kerr MD CHEMISTRY ORDERABLES Final Res ult [facility] [address] [place] [address] * (ABNORMAL) COMPREHENSIVE METABOLIC PANEL (05/17/2023 7:58 AM EDT) Sodium 134(L) 136 - 145 mmol/L 05/17/2023 2:50 PM EDT [facility] Potassium 3.7 3.5 - 5.0 mmol/L 05/17/2023 2:50 PM EDT [facility] Chloride 97(L) 98 - 107 mmol/L 05/17/2023 2:50 PM EDT [facility] Total CO2 27 22 - 29 mmol/L 05/17/2023 2:50 PM EDT [facility] Anion Gap 10 7 - 16 mmol/L 05/17/2023 2:50 PM EDT [facility] Calcium 9.5 8.6 - 10.4 mg/dL 05/17/2023 2:50 PM EDT [facility] Glucose Lvl 86 74 - 100 mg/dL 05/17/2023 2:50 PM EDT [facility] BUN 10 6 - 20 mg/dL 05/17/2023 2:50 PM EDT [facility] Creatinine 0.74 0.51 - 1.30 mg/dL 05/17/2023 2:50 PM EDT [facility] Albumin 3.6 3.5 - 5.2 gm/dL 05/17/2023 2:50 PM EDT [facility] Total Protein 7.1 6.4 - 8.3 gm/dL 05/17/2023 2:50 PM EDT [facility] Bili Total 0.6 0.2 - 1.3 mg/dL 05/17/2023 2:50 PM EDT [facility] ALT 28 <=41 U/L 05/17/2023 2:50 PM EDT [facility] AST 27 <=40 U/L 05/17/2023 2:50 PM EDT [facility] Alk Phos 114 36 - 123 U/L 05/17/2023 2:50 PM EDT [facility] eGFR (CKD-EPIcr 2020) 97 >=60 mL/min/1.7 3 m2 05/17/2023 2:50 PM EDT [facility] Comment:Estimated GFR was ca lculated using the CKD-EPIcr (2020) equation refit without race. The equation is recommended by the National Kidney Foundation - [employer] of Nephrology Task Force. Blood VENOUS BLOOD / Unknown Venipuncture / Unknown 05/17/2023 7:58 AM EDT 05/17/2023 7:58 AM EDT us Julisa Kerr MD CHEMISTRY ORDERABLES Final Res ult [facility] 1 [facility] [place], [place] [address] [facility] [address] [place] [address] * CORTISOL (05/17/2023 7:58 AM EDT) Cortisol 17.00 mcg/dL 05/17/2023 3:4 2 PM EDT [facility] Blood VENOUS BLOOD / Unknown Venipuncture / Unknown 05/17/2023 7:58 AM EDT 05/17/2023 7:58 AM EDT Narrative [facility] - 05/17/2023 3:42 PM EDT AM: ??4.82 - 19.5 mcg/dL This reference interval was verified on healthy individuals between the hours of 6:00 am -10:00 am. This interval may not be appropriate outside of that time range. PM: ??2.47 - 11.9 mcg/dL This reference interval was verified on healthy individuals between the hours of 4:00 pm -8:00 pm. This interval may not be appropriate outside of that time range. Ingestion of beverley doses of biotin (>5 mg/day) taken within 8 hours of drawing blood sample can interfere with this immunoassay test. us Julisa Kerr MD CHEMISTRY ORDERABLES Final Res ult [facility] 1 [facility] [place] [address] documented in this encounter Visit Diagnoses Diagnosis Chronic fatigue Other malaise and fatigue History of anabolic steroid use documented in this encounter Care Teams Revolving Inventory Clerk Relationship Specialty Start Date End Date Julisa Kerr MD [address] [place], [place] [id number] PCP - General 02/22/11 Jessica Cortes MD 651 [facility] [address] [place] [address] Internal Medicine-Rheumatology 04/26/16 Susana Garay MD 1 [facility] [place] [address] Medical Oncologist Internal Medicine-Hematology and Oncology 10/14/22 documented as of this encounter
--- OUTSIDE RECORDS SUMMARY | 2024-08-22 21:41 | XMS_ITS | Encounter Summary ---
Author Organization [place] Address [place] [id number] Care Team Providers Care Powder Guard Name Role Phone Julisa Kerr MD Primary Care Provider [phone] Jessica Cortes MD Unavailable [phone] Susana Garay MD Unavailable [phone] Reason for Referral * MRI/CAT Scan (Routine) - Closed Specialty Diagnoses / Procedures Referred By Contac t Referred To Contact Radiology Diagnoses Memory loss Procedures MRI BRAIN WO CONTRAST Thierno Toth MD [address] [place] [address] Phone: tel: fax: [place] [address] Phone: tel: fax: Referral ID Status Reason Start Date Expiration Date Visits Re quested Visits Authorized [id number] Closed 03/24/2023 03/23/2024 1 1 Reason for Visit * MRI/CAT Scan (Routine) - Closed Specialty Diagnoses / Procedures Referred By Contac t Referred To Contact Radiology Diagnoses Memory loss Procedures MRI BRAIN WO CONTRAST Thierno Toth MD [address] [place] [address] Phone: tel: fax: [facility] [place] [place] [address] Phone: tel: fax: Referral ID Status Reason Start Date Expiration Date Visits Re quested Visits Authorized [id number] Closed 03/24/2023 03/23/2024 1 1 Encounter Details Date Type Department Care Team (Late st Contact Info) Description 05/30/2023 10:12 AM EDT - 05/30/2023 11:59 PM EDT Hospital Encounter [facility] [place] [address] Thierno Toth MD [address] [place] [address] Memory loss Discharge Disposition: Home or Self Care Social [...] Info) Description 08/31/2024 8:30 AM EST Appointment [place] [address] [place] [address] 10/25/2024 10:45 AM EST Office Visit [facility] [address] [place] [address] [address] [place] [address] Jessica Cortes MD [address] [place] [address] Building [address] [place] [address] 01/25/2025 9:00 AM EDT Appointment [place] [address] [place] [address] 05/09/2025 11:00 AM EDT Appointment [place] [address] [place] [address] 05/09/2025 11:15 AM EDT Appointment [place] [address] [place] [address] Susana Garay MD [address] [place] [address] [address] [place], [place] [address] documented as of this encounter Goals Goal Patient Goal Type Associated Problems Recent Progress Patient-Stated? 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 RN documented as of this encounter Procedures Procedure Name Priority Date/Time Associated Diagnosis Comments MRI BRAIN WO CONTRAST Routine 05/30/2023 10:49 AM EDT Memory loss documented in this encounter Results * MRI BRAIN WO CONTRAST (05/30/2023 10:49 AM EDT) Anatomical Region Laterality Modality Head Magnetic Resonan ce 05/30/2023 10:4 9 AM EDT Impressions 05/30/2023 10:57 AM EDT No acute abnormality. - Note: Radiology results need to be interpreted within a comprehensive clinical context. ??If you have questions about the radiology report, please contact the office of the ordering clinician. Narrative 05/30/2023 10:57 AM EDT MRI BRAIN WITHOUT CONTRAST, ??05/30/2023 10:49 AM ?? CLINICAL HISTORY: ??R41.3-Other [id number]. COMPARISON: ??None. PROCEDURE COMMENTS: Multiplanar multiecho MR imaging of the brain including standard spin echo and diffusion sequences. FINDINGS: ?? Midline structures normally formed. Ventricles normal. No evidence of acute stroke, mass, or hemorrhage. Normal diffusion imaging. Major vascular flow voids preserved, suggesting patency. Included portions of the paranasal sinuses, mastoids, and orbits unremarkable. Procedure Note Dayana Purcell MD - 05/30/2023 MRI BRAIN WITHOUT CONTRAST, 05/30/2023 10:49 AM CLINICAL HISTORY: R41.3-Other [id number]. COMPARISON: None. PROCEDURE COMMENTS: Multiplanar multiecho MR imaging of the brainincluding standard spin echo and diffusion sequences. FINDINGS: Midline structures normally formed. Ventricles normal. No evidence ofacute stroke, mass, or hemorrhage. Normal diffusion imaging. Major vascular flowvoids preserved, suggesting patency. Included portions of the paranasal sinuses, mastoids, and orbitsunremarkable. IMPRESSION: No acute abnormality. - Note: Radiology results need to be interpreted within a comprehensiveclinical context. If you have questions about the radiology report, please contactthe office of the ordering clinician. us Thierno Toth MD IMG MRI ORDERABLES Siobhan l Result documented in this encounter Visit Diagnoses Diagnosis Memory loss documented in this encounter Care Teams Powder Guard Relationship Specialty Start Date End Date Julisa Kerr MD [address] [place], [place] [id number] PCP - General 02/22/11 Jessica Cortes MD [address] [address] Internal Medicine-Rheumatology 04/26/16 Susana Garay MD [address] [place] [address] Medical Oncologist Internal Medicine-Hematology and Oncology 10/14/22 documented as of this encounter
--- OUTSIDE RECORDS SUMMARY | 2024-08-22 21:41 | XMS_ITS | Encounter Summary ---
Author Organization [place] [address] Care Team Providers Care Offset Lithographic Press Setter Name Role Phone Julisa Kerr MD Primary Care Provider [phone] Jessica Cortes MD Unavailable [phone] Susana Garay MD Unavailable [phone] Encounter Details Date Type Department Care Team (Late st Contact Info) Description 05/23/2023 Orders Only [facility] [address] [place] [id number] Julisa Kerr MD [address] [place] [address] Social History Tobacco Use Types Packs/Day Years [...] Filled Start Date End Date predniSONE (DELTASONE) 20 mg Oral Tablet 3 tabs po daily for 3 days, then 2 tabs po daily for 3 days then 1 tab daily for 3 days. 18 Tablet 05/23/2023 06/10/2023 documented in this encounter Plan of Treatment Upcoming Encounters Date Type Department Care Team (Late st Contact Info) Description 08/31/2024 8:30 AM EST Appointment [facility] [address] [place] [address] 10/25/2024 10:45 AM EST Office Visit [facility] [address] [facility] [address] [place] [address] Jessica Cortes MD 651 [facility] Building [address] [place] [address] 01/25/2025 9:00 AM EDT Appointment [place] [address] [place] [address] 05/09/2025 11:00 AM EDT [address]ointment [address] [place] [address] 05/09/2025 11:15 AM EDT Appointment [place] [address] [place] [address] Susana Garay MD [address] [place] [address] [place] [address] documented as of this encounter Goals Goal Patient Goal Type Associated Problems Recent Progress Patient-Stated? Author Maintain a healthy diet, exercise regularly and maintain an ideal body weight General Porsche Ashley RN documented as of this encounter Visit Diagnoses Not on filedocumented in this encounter Discontinued Medications Medication Sig Discontinue Reason Start Date End Da te predniSONE (DELTASONE) 10 mg Oral TabletIndications:Rheuma toid arthritis involving multiple sites with positive rheumatoid factor (HCC) Take 3 tablets daily x 5 days then 2 tablets daily x 5 days then 1 tablet daily x 5 days then stop. Cancelled by 05/16/2023 05/23/2023 documented as of this encounter Care Teams Offset Lithographic Press Setter Relationship Specialty Start Date End Date Julisa Kerr MD [address] [place], [place] [id number] PCP - General 02/22/11 Jessica Cortes MD 651 [facility] [address] [place] [address] Internal Medicine-Rheumatology 04/26/16 Susana Garay MD [address] [place] [address] [place] [address] Medical Oncologist Internal Medicine-Hematology and Oncology 10/14/22 documented as of this encounter
--- OUTSIDE RECORDS SUMMARY | 2024-08-22 21:41 | XMS_ITS | Encounter Summary ---
Author Organization [place] [address] Care Team Providers Care Hay Stacker Operator Name Role Phone Julisa Kerr MD Primary Care Provider [phone] Jessica Cortes MD Unavailable [phone] Susana Garay MD Unavailable [phone] Reason for Referral * Consultation (Routine) - Closed Specialty Diagnoses / Procedures Referred By Contac t Referred To Contact Internal Medicine-Hematology and Oncology / Oncology Diagnoses Leukocytosis, unspecified type Julisa Kerr MD [address] [place] [address] Phone: tel: fax: Markos Brown MD [address] [place] [address] Phone: tel: fax: Referral ID Status Reason Start Date Expiration Date Visits Re quested Visits Authorized [id number] Closed 05/15/2023 05/14/2024 99 99 Question Answer Service Hematology Encounter Details Date Type Department Care Team (Late st Contact Info) Description 05/15/2023 Orders Only [facility] [address] [place] [address] Estela Larson RMA Leukocytosis, unspecified type (Primary Dx) Social History Tobacco Use Types [...] AM EST Appointment [facility] [place] [address] [place] [address] 10/25/2024 10:45 AM EST Office Visit [facility] 651 [facility] [address] [place] [phone] Jessica Cortes MD 651 [facility] Building [address] [place] [address] 01/25/2025 9:00 AM EDT Appointment [place] [address] [place] [address] 05/09/2025 11:00 AM EDT Appointment [address] [place] [address] 05/09/2025 11:15 AM EDT Appointment [address] [place] [address] Susana Garay MD [address] [place], [place] [id number] Scheduled Referrals Name Type Priority Associated Diagnoses Orde r Schedule AMB REFERRAL TO HEMATOLOGY ONCOLOGY Outpatient Referral Routine Leukocytosis, unspecified type Ordered: 05/15/2023 documented as of this encounter Goals Goal Patient Goal Type Associated Problems Recent Progress Patient-Stated? 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, RN documented as of this encounter Visit Diagnoses Diagnosis Leukocytosis, unspecified type- Primary documented in this encounter Care Teams Hay Stacker Operator Relationship Specialty Start Date End Date Julisa Kerr MD [address] [place] [address] PCP - General 02/22/11 Jessica Cortes MD 651 [facility] Building [address] [place] [address] Internal Medicine-Rheumatology 04/26/16 Susana Garay MD [address] [facility] [address] [place], [place] [id number] Medical Oncologist Internal Medicine-Hematology and Oncology 10/14/22 documented as of this encounter
--- OUTSIDE RECORDS SUMMARY | 2024-08-22 21:41 | XMS_ITS | Encounter Summary ---
Author Organization [place] [address] Care Team Providers Care Clinical Practice Consultant Name Role Phone Julisa Kerr MD Primary Care Provider [phone] Jessica Cortes MD Unavailable [phone] Susana Garay MD Unavailable [phone] Reason for Visit * Reason Comments Pharmacy Rheumatology Management Simponi Encounter Details Date Type Department Care Team (Latest Contact Info) Description 05/05/2023 Specialty Pharmacy [facility] [address] [place] [phone] Priti Valentine CPhT Pharmacy Rheumatology Management (Simponi) Social History [...] Albin Levy MA documented in this encounter Progress Notes * Priti Valentine CPhT - 05/05/2023 10:31 AM EDT Specialty Pharmacy Refill Coordination Note Contacted Yuliet Trevino today regarding refills of Simponi. Sent MyChart message. Patient is not clinically followed. * Jacey Miller CPhT - 05/05/2023 10:31 AM EDT Specialty Pharmacy Refill Coordination Note Contacted Yuliet Trevino today regarding refills of Simponi. Medication to be delivered by [facility] on 05/12. Sent MyChart message. documented in this encounter Plan of Treatment Upcoming Encounters Date Type Department Care Team (Late st Contact Info) Description 08/31/2024 8:30 AM EST Appointment [place] [address] [place] [address] 10/25/2024 10:45 AM EST Office Visit [facility] 651 [facility] [address] [place] [address] Jessica Cortes MD 651 [facility] 19 [place] [address] 01/25/2025 9:00 AM EDT Appointment [address] [place] [address] 05/09/2025 11:00 AM EDT Appointment [address] [place] [address] 05/09/2025 11:15 AM EDT Appointment [address] [place] [address] Susana Garay MD [address] [facility] [place] [address] documented as of this encounter Goals Goal Patient Goal Type Associated Problems Recent Progress Patient-Stated? 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, RN documented as of this encounter Visit Diagnoses Not on filedocumented in this encounter Care Teams Clinical Practice Consultant Relationship Specialty Start Date End Date Julisa Kerr MD [address] [place] [address] PCP - General 02/22/11 Jessica Cortes MD [address] [place] [phone] Internal Medicine-Rheumatology 04/26/16 Susana Garay MD [address] [facility] [place] [address] Medical Oncologist Internal Medicine-Hematology and Oncology 10/14/22 documented as of this encounter
--- OUTSIDE RECORDS SUMMARY | 2024-08-22 21:41 | XMS_ITS | Encounter Summary ---
Author Organization [place] [address] Care Team Providers Care Borderer Name Role Phone Julisa Kerr MD Primary Care Provider [phone] Jessica Cortes MD Unavailable [phone] uSsana Garay MD Unavailable [phone] Reason for Visit * Reason Onset Date Comments Results 05/16/2023 Encounter Details Date Type Department Care Team (Late st Contact Info) Description 05/16/2023 Telephone [facility] [address] [place] [address] Julisa Kerr MD 100 [place] [address] Results Social History Tobacco Use Types Packs/Day [...] Telephone Encounter - Dania Gutierrez MA - 05/16/2023 4:54 PM EDT Completed * Telephone Encounter - Lucio Delgado - 05/16/2023 9:44 AM EDT Images from the original note were not included. Patient Calling for Results Patient called for results on Lab Which Provider ordered the test? Julisa Kerr MD Date of test: 05/14/2023 Advised patient of: abnormal result. Patient Instructions/ Questions: Other: Please put in the patient results note that PATIENT is aware of the following results documented in this encounter Plan of Treatment Upcoming Encounters Date Type Department Care Team (Late st Contact Info) Description 08/31/2024 8:30 AM EST Appointment [place] [address] [place] [address] 10/25/2024 10:45 AM EST Office Visit [facility] [address] [facility] [address] [place] [address] Jessica Cortes MD 651 [facility] Building [address] [place] [address] 01/25/2025 9:00 AM EDT Appointment [address] [place] [address] 05/09/2025 11:00 AM EDT Appointment [address] [address] 05/09/2025 11:15 AM EDT Appointment [address] [address] Susana Garay MD [address] [place] [address] [place] [phone] documented as of this encounter Goals Goal Patient Goal Type Associated Problems Recent Progress Patient-Stated? Author Maintain a healthy diet, exercise regularly and maintain an ideal body weight General Porsche Ashley RN documented as of this encounter Visit Diagnoses Not on filedocumented in this encounter Care Teams Borderer Relationship Specialty Start Date End Date Julisa Kerr MD 100 [place] [address] PCP - General 02/22/11 Jessica Cortes MD 651 [facility] Building [address] [place] [address] Internal Medicine-Rheumatology 04/26/16 Susana Garay MD [address] [facility] [place] [address] Medical Oncologist Internal Medicine-Hematology and Oncology 10/14/22 documented as of this encounter
--- OUTSIDE RECORDS SUMMARY | 2024-08-22 21:41 | XMS_ITS | Encounter Summary ---
[place] [address] Care Team Providers Care Marketing Services Vice President Name Role Phone Julisa Kerr MD Primary Care Provider [phone] Jessica Cortes MD Unavailable [phone] Susana Garay MD Unavailable [phone] Encounter Details Date Type Department Care Team (Latest Contact Info) Description 05/02/2023 11:10 AM EDT - 05/02/2023 11:59 PM EDT Hospital Encounter [facility] [address] [place] [address] Therapeutic drug monitoring Discharge Disposition: [...] Entry Date Author No 02/12/2022 2:17 PM EDAlbin Brennan MA documented in this encounter Medications at Time of Discharge ELIQUIS 5 mg Oral Tablet TAKE 1 TABLET BY MOUTH TWICE A DAY 90 Tablet 2 11/25/2022 05/14/2023 leflunomide (ARAVA) 10 mg Oral TabletIndications :Rheumatoid arthritis involving multiple sites with positive rheumatoid factor (HCC) TAKE 1 TABLET BY MOUTH EVERY DAY 30 Tablet 04/21/2023 05/19/2023 predniSONE (DELTASONE) 20 mg Oral TabletIndications :Acute pain of both knees Take 2 Tablets by mouth daily for 5 days. 10 Tablet 04/28/2023 05/03/2023 documented as of this encounter Discharge Disposition Disposition Code Departure Means Destination Home or Self Care documented in this encounter Plan of Treatment Upcoming Encounters Date Type Department Care Team (Late st Contact Info) Description 08/31/2024 8:30 AM EST [address]ment [address] [place] [address] 10/25/2024 10:45 AM EST Office Visit [facility] [address] [place] [address] Jessica Cortes MD [address]51 [facility] Building [address] [place] [address] 01/25/2025 9:00 AM EDT Appointment [place] [address] [place] [address] 05/09/2025 11:00 AM EDT Appointment [place] [address] [place] [address] 05/09/2025 11:15 AM EDT Appointment [place] [address] [place] [address] Susana Garay MD [address] [place] [address] [place] [address] documented as of this encounter Goals Goal Patient Goal Type Associated Problems Recent Progress Patient-Stated? 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 RN documented as of this encounter Procedures Procedure Name Priority Date/Time Associated Diagnosis Comments SEDIMENTATION RATE AUTOMATED Routine 05/02/2023 11:34 AM EDT Therapeutic drug monitoring CBC WITH DIFF Routine 05/02/2023 11:34 AM EDT Therapeutic drug monitoring C-REACTIVE PROTEIN Routine 05/02/2023 11 :34 AM EDT Therapeutic drug monitoring COMPREHENSIVE METABOLIC PANEL Routine 05/02/2023 11:34 AM EDT Therapeutic drug monitoring documented in this encounter Results * COMPREHENSIVE METABOLIC PANEL (05/02/2023 11:34 AM EDT) Sodium 141 136 - 145 mmol/L 05/02/2023 10:22 PM EDT [facility] Potassium 4.0 3.5 - 5.0 mmol/L 05/02/2023 10:22 PM EDT [facility] Chloride 100 98 - 107 mmol/L 05/02/2023 10:22 PM EDT [facility] Total CO2 26 22 - 29 mmol/L 05/02/2023 10:22 PM EDT [facility] Anion Gap 15 7 - 16 mmol/L 05/02/2023 10:22 PM EDT [facility] Calcium 9.4 8.6 - 10.4 mg/dL 05/02/2023 10:22 PM EDT [facility] Glucose Lvl 87 74 - 100 mg/dL 05/02/2023 10:22 PM EDT [facility] BUN 13 6 - 20 mg/dL 05/02/2023 10:22 PM EDT [facility] Creatinine 0.89 0.51 - 1.30 mg/dL 05/02/2023 10:22 PM EDT [facility] Albumin 4.3 3.5 - 5.2 gm/dL 05/02/2023 10:22 PM EDT [facility] Total Protein 7.7 6.4 - 8.3 gm/dL 05/02/2023 10:22 PM EDT [facility] Bili Total 0.2 0.2 - 1.3 mg/dL 05/02/2023 10:22 PM EDT [facility] ALT 11 <=41 U/L 05/02/2023 10:22 PM EDT [facility] AST 15 <=40 U/L 05/02/2023 10:22 PM EDT [facility] Alk Phos 85 36 - 123 U/L 05/02/2023 10:22 PM EDT [facility] eGFR (CKD-EPIcr 2020) 78 >=60 mL/min/1.7 3 m2 05/02/2023 10:22 PM EDT [facility] Comment:Estimated GFR was ca lculated using the CKD-EPIcr (2020) equation refit without race. The equation is recommended by the National Kidney Foundation - [place] [employer] of Nephrology Task Force. Blood VENOUS BLOOD / Unknown Venipuncture / Unknown 05/02/2023 11:34 AM EDT 05/02/2023 11:34 AM EDT us Jessica Cortes MD CHEMISTRY ORDERABLES Siobhan finnegan Result [facility] [address] [facility] [place] [id number] [facility] 1 [place] [address] * (ABNORMAL) CBC WITH DIFF (05/02/2023 11:34 AM EDT) WBC 17.4(H) 3.7 - 10.3 x10(3)/mcL 05/02/2023 8:30 PM EDT [facility] RBC 5.39(H) 3.90 - 5.20 x10(6)/mcL 05/02/2023 8:30 PM EDT [facility] Hgb 14.6 11.2 - 15.7 g/dL 05/02/2023 8:30 PM EDT [facility] Hct 48.3(H) 34.0 - 45.0 % 05/02/2023 8:30 PM EDT [facility] MCV 89.6 80.0 - 100.0 fL 05/02/2023 8:30 PM EDT [facility] MCH 27.1 26.0 - 34.0 pg 05/02/2023 8:30 PM EDT [facility] MCHC 30.2(L) 30.7 - 35.5 g/dL 05/02/2023 8:30 PM EDT [facility] RDW 14.8 <=14.9 % 05/02/2023 8:30 PM EDT [facility] Platelet 401(H) 155 - 369 x10(3)/mcL 05/02/2023 8:30 PM EDT [facility] MPV 10.2 8.8 - 12.5 fL 05/02/2023 8:30 PM EDT [facility] Neut Percent 77.2 % 05/02/2023 8:30 PM EDT [facility] Comment:Neutrophils equals s egs plus bands Imm Gran% 1.4 % 05/02/2023 8:30 PM EDT [facility] Comment:Automated count of m etamyelocytes, myelocytes and promyelocytes. IG >1% represents a left shift and provides an early indication of an infection or inflammatory process. Lymph Percent 12.0 % 05/02/2023 8:30 PM EDT [facility] [place] Percent 7.1 % 05/02/2023 8:30 PM EDT [facility] Eos Percent 1.7 % 05/02/2023 8:30 PM EDT [facility] Baso Percent 0.6 % 05/02/2023 8:30 PM EDT [facility] Neut # 13.4(H) 1.6 - 6.1 x10(3)/[facility] 05/02/2023 8:30 PM EDT [facility] Comment:Neutrophils equals s egs plus bands IMMGRAN# 0.3(H) 0.0 - 0.1 x10(3)/mcL 05/02/2023 8:30 PM EDT [facility] Comment:Automated count of m etamyelocytes, myelocytes and promyelocytes. An absolute IG <0.1 is reported as 0.0. Lymph # 2.1 1.2 - 3.9 x10(3)/mcL 05/02/2023 8:30 PM EDT [facility] [place] # 1.2(H) 0.3 - 0.9 x10(3)/mcL 05/02/2023 8:30 PM EDT [facility] Eos# 0.3 0.0 - 0.5 x10(3)/[facility] 05/02/2023 8:30 PM EDT [facility] Baso # 0.1 0.0 - 0.1 x10(3)/[facility] 05/02/2023 8:30 PM EDT [facility] Blood VENOUS BLOOD / Unknown Venipuncture / Unknown 05/02/2023 11:34 AM EDT 05/02/2023 11:34 AM EDT us Jessica Cortes MD HEMATOLOGY ORDERABLES Fin al Result [facility], [address] , [place] [address] * (ABNORMAL) C-REACTIVE PROTEIN (05/02/2023 11:34 AM EDT) [facility] CRP 9.89(H) <=5.00 mg/L 05/02/2023 10:22 PM EDT [facility] [employer] [facility] Blood VENOUS BLOOD / Unknown Venipuncture / Unknown 05/02/2023 11:34 AM EDT 05/02/2023 11:34 AM EDT Jessica Cortes MD CHEMISTRY ORDERABLES Siobhan l Result [facility] [employer] [address] , [place] [address] * SEDIMENTATION RATE AUTOMATED (05/02/2023 11:34 AM EDT) [facility] Sed Rate 19 0 - 30 mm/hr 05/02/2023 8:30 PM EDT [facility] Blood VENOUS BLOOD / Unknown Venipuncture / Unknown 05/02/2023 11:34 AM EDT 05/02/2023 11:34 AM EDT Jessica Cortes MD HEMATOLOGY ORDERABLES Fin al Result [place] [id number] documented in this encounter Visit Diagnoses Diagnosis Therapeutic drug monitoring Encounter for therapeutic drug monitoring documented in this encounter Care Teams Marketing Services Vice President Relationship Specialty Start Date End Date Julisa Kerr MD [address] [place] [address] PCP - General 02/22/11 Jessica Cortes MD [address] [place] [address] Internal Medicine-Rheumatology 04/26/16 Susana Garay MD [address] [place] [address] Medical Oncologist Internal Medicine-Hematology and Oncology 10/14/22 documented as of this encounter
--- OUTSIDE RECORDS SUMMARY | 2024-08-22 21:41 | XMS_ITS | Encounter Summary ---
Author Organization [facility] [place] [address] Care Team Providers Care Back Tender Paper Machine Name Role Phone Julisa Kerr MD Primary Care Provider [phone] Jessica Cortes MD Unavailable [phone] Susana Garay MD Unavailable [phone] Encounter Details Date Type Department Care Team (Latest Contact Info) Description 04/28/2023 Travel Social History Tobacco Use Types Packs/Day [...] Info) Description 08/31/2024 8:30 AM EST Appointment [address] [place] [address] 10/25/2024 10:45 AM EST Office Visit [facility] [address] [place] [address] Jessica Cortes MD [address] [facility] Building [address] [place] [address] 01/25/2025 9:00 AM EDT [address]ment [address] [place] [address] 05/09/2025 11:00 AM EDT [address]ointment [address] [place] [address] 05/09/2025 11:15 AM EDT [address]ointment [address] [place] [address] Susana Garay MD [address] [place] [address] [place] [address] documented as of this encounter Goals Goal Patient Goal Type Associated Problems Recent Progress Patient-Stated? 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, RN documented as of this encounter Visit Diagnoses Not on filedocumented in this encounter Care Teams Back Tender Paper Machine Relationship Specialty Start Date End Date Julisa Kerr MD [address] [place] [address] PCP - General 02/22/11 Jessica Cortes MD [address] [place] [address] Internal Medicine-Rheumatology 04/26/16 Susana Garay MD [address] [place] [id number] Medical Oncologist Internal Medicine-Hematology and Oncology 10/14/22 documented as of this encounter
--- OUTSIDE RECORDS SUMMARY | 2024-08-22 21:41 | XMS_ITS | Encounter Summary ---
Author Organization [facility] [place] [address] Care Team Providers Care Sales Representative Name Role Phone Julisa Kerr MD Primary Care Provider [phone] Jessica Cortes MD Unavailable [phone] Susana Garay MD Unavailable [phone] Encounter Details Date Type Department Care Team (Latest Contact Info) Description 05/02/2023 Travel Social History Tobacco Use Types Packs/Day [...] Description 08/31/2024 8:30 AM EST Appointment [address] [place] [address] 10/25/2024 10:45 AM EST Office Visit [facility] [address] [facility] [address] [place] [address] Jessica Cortes MD [address] [place] [address] [address] [place] [address] 01/25/2025 9:00 AM EDT [address]ointment [address] [place] [address] 05/09/2025 11:00 AM EDT [address]ointment [address] [place] [address] 05/09/2025 11:15 AM EDT Appointment [address] [place] [address] Susana Garay MD [address] [place] [address] [place] [address] documented as of this encounter Goals Goal Patient Goal Type Associated Problems Recent Progress Patient-Stated? Author Maintain a healthy diet, exercise regularly and maintain an ideal body weight General Porsche Ashley, RN documented as of this encounter Visit Diagnoses Not on filedocumented in this encounter Care Teams Sales Representative Relationship Specialty Start Date End Date Julisa Kerr MD [address] [place] [address] PCP - General 02/22/11 Jessica Cortes MD [address] [place] [address] Internal Medicine-Rheumatology 04/26/16 Susana Garay MD 1 [facility] [address] Medical Oncologist Internal Medicine-Hematology and Oncology 10/14/22 documented as of this encounter
--- OUTSIDE RECORDS SUMMARY | 2024-08-22 21:41 | XMS_ITS | Encounter Summary ---
Author Organization [facility] [place] [address] Care Team Providers Care Pharmacology Professor Name Role Phone Julisa Kerr MD Primary Care Provider [phone] Jessica Cortes MD Unavailable [phone] Susana Garay MD Unavailable [phone] Encounter Details Date Type Department Care Team (Latest Contact Info) Description 05/15/2023 11:55 AM EDT Hospital Encounter [facility] [address] [facility] [place] [address] Left without seen Social History [...] Description 08/31/2024 8:30 AM EST Appointment [address] [place] [address] 10/25/2024 10:45 AM EST Office Visit [facility] [address] [place] [address] Jessica Cortes MD [address] [facility] Building [address] [place] [address] 01/25/2025 9:00 AM EDT [address]ointment [address] [address] 05/09/2025 11:00 AM EDT [address]ointment [address] [place] [address] 05/09/2025 11:15 AM EDT Appointment [facility] [address] [place], [place] [id number] Susana Garay MD [address] [facility] [place] [address] documented as of this encounter Goals Goal Patient Goal Type Associated Problems Recent Progress Patient-Stated? 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, RN documented as of this encounter Visit Diagnoses Not on filedocumented in this encounter Care Teams Pharmacology Professor Relationship Specialty Start Date End Date Julisa Kerr MD 100 [place] [address] PCP - General 02/22/11 Jessica Cortes MD 651 [facility] 19 [place] [address] Internal Medicine-Rheumatology 04/26/16 Susana Garay MD [address] [facility] [place] [address] Medical Oncologist Internal Medicine-Hematology and Oncology 10/14/22 documented as of this encounter
--- OUTSIDE RECORDS SUMMARY | 2024-08-22 21:41 | XMS_ITS | Encounter Summary ---
Author Organization [place] [address] Care Team Providers Care Senior Web Architect Name Role Phone Julisa Kerr MD Primary Care Provider [phone] Jessica Cortes MD Unavailable [phone] Susana Garay MD Unavailable [phone] Reason for Visit * Reason Comments Medication Refill Encounter Details Date Type Department Care Team (Late st Contact Info) Description 05/13/2023 Refill [facility] [address] [address] Susana Garay MD [address] [place], [place] [id number] Medication Refill Social History Tobacco Use Types [...] DAY 90 Tablet 2 05/14/2023 10/07/2023 documented in this encounter Miscellaneous Notes * Telephone Encounter - Kala Man RN - 05/14/2023 1:48 PM EDT Per last visit on 10/15/22: 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 W/ only cardiolipin Abs abnl, OK to stay on NOAC (if LLAC and/or B2PG were pos or if new clot on NOAC, will need coumadin). - Indefinite NOAC - Discussed need for annual risk to benefit reassessment --> pt would like to f/uw/ PCP. Will ok refill. documented in this encounter Plan of Treatment Upcoming Encounters Date Type Department Care Team (Late st Contact Info) Description 08/31/2024 8:30 AM EST Appointment [place] [address] [place] [address] 10/25/2024 10:45 AM EST Office Visit [facility] [address] [place] [address] Jessica Cortes MD [address] [facility] Building 19 [place] [address] 01/25/2025 9:00 AM EDT Appointment [place] [address] [place] [address] 05/09/2025 11:00 AM EDT Appointment [place] [address] [place] [address] 05/09/2025 11:15 AM EDT [address]ointment [address] [place] [address] Susana Garay MD [address] [place] [address] [place] [address] documented as of this encounter Goals Goal Patient Goal Type Associated Problems Recent Progress Patient-Stated? Author Maintain a healthy diet, exercise regularly and maintain an ideal body weight Porsche Diaz, RN documented as of this encounter Visit Diagnoses Diagnosis Antiphospholipid syndrome (HCC)- Primary Primary hypercoagulable state History of DVT in adulthood documented in this encounter Discontinued Medications Medication Sig Discontinue Reason Start Date End Da te ELIQUIS 5 mg Oral Tablet TAKE 1 TABLET BY MOUTH TWICE A DAY 11/25/2022 05/14/2023 documented as of this encounter Care Teams Senior Web Architect Relationship Specialty Start Date End Date Julisa Kerr MD [address] [place] [id number] PCP - General 02/22/11 Jessica Cortes MD 651 [facility] 19 [place] [address] Internal Medicine-Rheumatology 04/26/16 Susana Garay MD [address] [place] [address] Medical Oncologist Internal Medicine-Hematology and Oncology 10/14/22 documented as of this encounter
--- OUTSIDE RECORDS SUMMARY | 2024-08-22 21:41 | XMS_ITS | Encounter Summary ---
Author [place] [address] Care Team Providers Care Outside Machinist Name Role Phone Julisa Kerr MD Primary Care Provider [phone] Jessica Cortes MD Unavailable [phone] Susana Garay MD Unavailable [phone] Encounter Details Date Type Department Care Team (Latest Contact Info) Description 05/26/2023 10:44 AM EDT - 05/26/2023 11:59 PM EDT Hospital Encounter [facility] [place] [phone] Leukocytosis, unspecified type Discharge Disposition: Home or Self Care Social [...] EST Appointment [facility] [address] [place] [address] 10/25/2024 10:45 AM EST Office Visit [facility] [address] [facility] [address] [place] [address] Jessica Cortes MD 651 [facility] Building [address] [place] [address] 01/25/2025 9:00 AM EDT Appointment [place] [address] [address] [address] 05/09/2025 11:00 AM EDT Appointment [place] [address] [place] [address] 05/09/2025 11:15 AM EDT Appointment [place] [address] [place] [address] Susana Garay MD [address] [place] [address] [place] [address] documented as of this encounter Goals Goal Patient Goal Type Associated Problems Recent Progress Patient-Stated? Author Maintain a healthy diet, exercise regularly and maintain an ideal body weight General Porsche Ashley RN documented as of this encounter Procedures Procedure Name Priority Date/Time Associated Diagnosis Comments FLOW CYTOMETRY PERIPHERAL BLOOD Routine 05/26/2023 12:20 PM EDT Leukocytosis, unspecified type PERIPHERAL SMEAR/PATH REVIEW Routine 05/26/2023 12:20 PM EDT Leukocytosis, unspecified type SEDIMENTATION RATE AUTOMATED Routine 05/26/2023 12:20 PM EDT Leukocytosis, unspecified type CBC WITH DIFF Routine 05/26/2023 12:20 PM EDT Leukocytosis, unspecified type C-REACTIVE PROTEIN Routine 05/26/2023 12 :20 PM EDT Leukocytosis, unspecified type LACTATE DEHYDROGENASE Routine 05/26/2023 12:20 PM EDT Leukocytosis, unspecified type documented in this encounter Results * PERIPHERAL SMEAR/PATH REVIEW (05/26/2023 12:20 PM EDT) Pathologist Review The peripheral blood smear is reviewed as requested. The red cells are normocytic and normochromic and normal in number. There is no significant polychromasia or schistocytes. The leukocytes are normal in number with reactive morphology. No blasts, lymphoma cells, or dysplastic cells are seen. The platelets are increased in number, and appear unremarkable. ?? Thrombocytosis, favored to be reactive. Clinical correlation is recommended. Breanna Walters MD 05/27/2023 9:19 AM EDT [facility] Blood VENOUS BLOOD / Unknown Venipuncture / Unknown 05/26/2023 12:20 PM EDT 05/26/2023 12:27 PM EDT us Susana Garay MD HEMATOLOGY ORDERABLES Final R esult [facility] 1 [place] [address] * FLOW CYTOMETRY PERIPHERAL BLOOD (05/26/2023 12:20 PM EDT) FINAL DIAGNOSIS Peripheral blood, flow cytometric immunophenotyping: - No diagnostic immunophenotypic abnormalities detected. - See scanned flow cytometry report for complete details. Note: Flow cytometric immunophenotyping studies performed at [facility] ([id number]) on a 98.5% viable specimen using 24 antibody markers were interpreted by Dr. Tucker . See separate report in [facility] for complete details. 05/29/2023 5:56 AM EDT [facility] OSCOPIC DESCRIPTION Microscopic examination is performed and the findings corroborate the diagnosis. 05/29/2023 5:56 AM EDT [facility] EMBEDDED IMAGES 05/29/2023 5:56 AM EDT [facility] CASE REPORT Peripheral Blood ?Case: [id number] ? Authorizing Provider: ??Susana Garay MD ? Collected: ? 05/26/2023 1220 ? Ordering Location: ? [facility] ? Received: ?05/27/2023 1058 ? [facility] ? Pathologist: ? Elizabeth Tucker MD ? Specimen: ?Arm ? 05/29/2023 5:56 AM EDT [facility] Blood UPPER LIMB STRUCTURE / Unknown Venipuncture / Unknown 05/26/2023 12:20 PM EDT 05/27/2023 10:58 AM EDT us Susana Garay MD PATHOLOGY ORDERABLES Final Re sult [facility] [address] [place] [address] * LACTATE DEHYDROGENASE (05/26/2023 12:20 PM EDT) LDH 210 135 - 214 U/L 05/26/2023 12:48 PM EDT [facility] Blood VENOUS BLOOD / Unknown Venipuncture / Unknown 05/26/2023 12:20 PM EDT 05/26/2023 12:27 PM EDT us Susana Garay MD CHEMISTRY ORDERABLES Final Re sult Performing Organization Address [facility]/ZIP Co de Phone Number [facility] [address] [place] [address] * (ABNORMAL) C-REACTIVE PROTEIN (05/26/2023 12:20 PM EDT) Pathologist [facility] CRP 143.26(H) <=5.00 mg/L 05/26/2023 9:56 PM EDT [facility] Blood VENOUS BLOOD / Unknown Venipuncture / Unknown 05/26/2023 12:20 PM EDT 05/26/2023 12:27 PM EDT us Susana Garay MD CHEMISTRY ORDERABLES Final Re sult Performing Organization Address [facility]/ZIP Co de Phone Number [facility] [address] [place] [address], [address] [place] [id number] * (ABNORMAL) SEDIMENTATION RATE AUTOMATED (05/26/2023 12:20 PM EDT) Pathologist [facility] Sed Rate 77(H) 0 - 30 mm/hr 05/26/2023 12:40 PM EDT [facility] Blood VENOUS BLOOD / Unknown Venipuncture / Unknown 05/26/2023 12:20 PM EDT 05/26/2023 12:27 PM EDT us Susana Garay MD HEMATOLOGY ORDERABLES Final R esult Performing Organization Address City/[facility]/ZIP Co de Phone Number [facility] [address] [place] [address] * (ABNORMAL) CBC WITH DIFF (05/26/2023 12:20 PM EDT) Pathologist [facility] WBC 8.7 3.7 - 10.3 x10(3)/mc L 05/26/2023 12:40 PM EDT [facility] RBC 4.11 3.90 - 5.20 x10(6)/mc L 05/26/2023 12:40 PM EDT [facility] Hgb 11.1(L) 11.2 - 15.7 g/dL 05/26/2023 12:40 PM [facility] Hct 35.2 34.0 - 45.0 % 05/26/2023 12:40 PM [facility] MCV 85.6 80.0 - 100.0 fL 05/26/2023 12:40 PM [facility] MCH 27.0 26.0 - 34.0 pg 05/26/2023 12:40 PM [facility] MCHC 31.5 30.7 - 35.5 g/dL 05/26/2023 12:40 PM [facility] RDW 14.0 <=14.9 % 05/26/2023 12:40 PM [facility] Platelet 563(H) 155 - 369 x10(3)/mc L 05/26/2023 12:40 PM [facility] MPV 9.8 8.8 - 12.5 fL 05/26/2023 12:40 PM [facility] Neut # Prelim 5.6 1.6 - 6.1 x10(3)/mc L 05/26/2023 12:40 PM [facility] Comment:Preliminary automate d absolute neutrophil count. Value may change if manual differential is indicated. Neut Percent 64.3 % 05/26/2023 12:40 PM [facility] Comment:Neutrophils equals s egs plus bands Imm Gran% 0.3 % 05/26/2023 12:40 PM [facility] Comment:Automated count of m etamyelocytes, myelocytes and promyelocytes. Lymph Percent 19.2 % 05/26/2023 12:40 PM EDT [facility] [place] Percent 13.1 % 05/26/2023 12:40 PM [facility] Eos Percent 2.6 % 05/26/2023 12:40 PM [facility] Baso Percent 0.5 % 05/26/2023 12:40 PM [facility] Neut # 5.6 1.6 - 6.1 x10(3)/ L 05/26/2023 12:40 PM EDT [facility] Comment:Neutrophils equals s egs plus bands IMMGRAN# 0.0 0.0 - 0.1 x10(3)/mc L 05/26/2023 12:40 PM EDT [facility] Comment:Automated count of m etamyelocytes, myelocytes and promyelocytes. An absolute IG <0.1 is reported as 0.0. Lymph # 1.7 1.2 - 3.9 x10(3)/ L 05/26/2023 12:40 PM EDT [facility] Pondera # 1.1(H) 0.3 - 0.9 x10(3)/ L 05/26/2023 12:40 PM EDT [facility] Eos# 0.2 0.0 - 0.5 x10(3)/ L 05/26/2023 12:40 PM EDT [facility] Baso # 0.0 0.0 - 0.1 x10(3)/ L 05/26/2023 12:40 PM EDT [facility] Blood VENOUS BLOOD / Unknown Venipuncture / Unknown 05/26/2023 12:20 PM EDT 05/26/2023 12:27 PM EDT us Susana Garay MD HEMATOLOGY ORDERABLES Final R esult [facility] [address] [place] [address] documented in this encounter Visit Diagnoses Diagnosis Leukocytosis, unspecified type documented in this encounter Care Teams Outside Machinist Relationship Specialty Start Date End Date Julisa Kerr MD [address] [place] [address] PCP - General 02/22/11 Jessica Cortes MD [address] [facility] Building [address] [place] [address] Internal Medicine-Rheumatology 04/26/16 Susana Garay MD [address] [facility] [address] [place], [place] [address] Medical Oncologist Internal Medicine-Hematology and Oncology 10/14/22 documented as of this encounter
--- OUTSIDE RECORDS SUMMARY | 2024-08-22 21:41 | XMS_ITS | Encounter Summary ---
Author [place] [address] Care Team Providers Care Index Clerk Name Role Phone Julisa Kerr MD Primary Care Provider [phone] Jessica Cortes MD Unavailable [phone] Susana Garay MD Unavailable [phone] Reason for Referral * MRI/CAT Scan (Urgent) - Closed Specialty Diagnoses / Procedures Referred By Contac t Referred To Contact Radiology Diagnoses Lymphadenopathy, thoracic Lymphocytosis Enlarged lymph nodes Procedures CT CHEST W CONTRAST Julisa Kerr MD [address] [place] [address] Phone: tel: fax: [place] [address] Phone: tel: Referral ID Status Reason Start Date Expiration Date Visits Re quested Visits Authorized [id number] Closed 05/14/2023 05/13/2024 1 1 Reason for Visit * MRI/CAT Scan (Urgent) - Closed Specialty Diagnoses / Procedures Referred By Contac t Referred To Contact Radiology Diagnoses Lymphadenopathy, thoracic Lymphocytosis Enlarged lymph nodes Procedures CT CHEST W CONTRAST Julisa Kerr MD [address] [place] [address] Phone: tel: fax: [facility] [address] [place] [address] Phone: tel: Referral ID Status Reason Start Date Expiration Date Visits Re quested Visits Authorized [id number] Closed 05/14/2023 05/13/2024 1 1 Encounter Details Date Type Department Care Team (Late st Contact Info) Description 05/23/2023 2:47 PM EDT - 05/23/2023 11:59 PM EDT Hospital Encounter [facility] [address] [place] [address] Julisa Kerr MD [address] [place] [address] Lymphadenopathy, thoracic; Lymphocytosis; Enlarged lymph nodes Discharge Disposition: Home or Self Care Social [...] Info) Description 08/31/2024 8:30 AM EST Appointment [place] [address] [place] [address] 10/25/2024 10:45 AM EST Office Visit [facility] [address] [facility] [address] [place] [address] Jessica Cortes MD [address] [place] [address] [address] [place] [address] 01/25/2025 9:00 AM EDT Appointment [place] [address] [place] [address] 05/09/2025 11:00 AM EDT Appointment [place] [address] [place] [address] 05/09/2025 11:15 AM EDT Appointment [place] [address] [place] [address] Susana Garay MD 1 [facility] [place] [address] documented as of this encounter Goals Goal Patient Goal Type Associated Problems Recent Progress Patient-Stated? Author Maintain a healthy diet, exercise regularly and maintain an ideal body weight General No Porsche Jeffrey RN documented as of this encounter Procedures Procedure Name Priority Date/Time Associated Diagnosis Comments CT CHEST W CONTRAST SAMMY 05/23/2023 3 :52 PM EDT Lymphadenopathy, thoracic Lymphocytosis Enlarged lymph nodes documented in this encounter Results * CT CHEST W CONTRAST (05/23/2023 3:52 [...] 3:52 PM CLINICAL HISTORY: ??R59.0-Localized enlarged lymph lcbin-YTK-62-CM D72.820-Lymphocytosis (symptomatic)-ICD-10-CM R59.9-Enlarged lymph nodes, juilndfkayz-RUJ-60-CM. COMPARISON: ??None. PROCEDURE COMMENTS: Multi detector CT scanning of the chest. Multiplanar reconstructions per protocol. Isovue 370 IV contrast given as recorded in EPIC. Dose 1 : CT DLP Total : 147.1 mGycm DLP Spiral Max : 147.1 mGycm Maximum CTDI Vol : 4.2 mGy SSDE : 5.964 mGy SSDE Diameter : 26.2 cm SSDE Source : [employer] FINDINGS: ??Right axillary lymph node measures approximately [...] 3:52 PM CLINICAL HISTORY: R59.0-Localized enlarged lymph mthtz-MNA-46-CM D72.820-Lymphocytosis (symptomatic)-ICD-10-CM R59.9-Enlarged lymph nodes, idkbcpyhdae-BAB-09-CM. COMPARISON: None. PROCEDURE COMMENTS: Multi detector CT scanning of the chest. Multiplanar reconstructions per protocol. Isovue 370 IV contrast given as recorded inEPIC. Dose 1 : CT DLP Total : 147.1 mGycm DLP Spiral Max : 147.1 mGycm Maximum CTDI Vol : 4.2 mGy SSDE : 5.964 mGy SSDE Diameter : 26.2 cm SSDE Source : [employer] FINDINGS: Right axillary lymph node measures approximately [...] ordering clinician. us Julisa Kerr MD IMG CT ORDERABLES Final Result documented in this encounter Visit Diagnoses Diagnosis Lymphadenopathy, thoracic Lymphocytosis Lymphocytosis (symptomatic) Enlarged lymph nodes Enlargement of lymph nodes documented in this encounter Administered Medications Inactive Administered Medications - up to 1 most recent administrations Medication Order MAR Action Action Date Dose Rate Site iopamidoL (ISOVUE-370) 370 mg iodine /mL (76 %) injection (LOW) 75 mL 75 mL, Intravenous, ONCE PRN, 1 dose, Starting on Fri05/23/23 at 1510, Until Fri05/23/23 at 1553, Radiography/Imaging, Radiology Procedure, VESICANT , CT (Contrasts) Given 05/23/2023 3:53 PM EDT 75 mL Left Arm sodium chloride 0.9% syringe Intravenous, ONCE PRN, 1 dose, Starting on Fri05/23/23 at 1510, Until Fri05/23/23 at 1553, Line Care, Flush peripheral lines every 12 hours, central lines every 8 hours, and after IV medication, CT (Contrasts) Given 05/23/2023 3:53 PM EDT 10 mL Lef t Arm documented in this encounter Care Teams Index Clerk Relationship Specialty Start Date End Date Julisa Kerr MD 100 [place], [place] [id number] PCP - General 02/22/11 Jessica Cortes MD [address] [address] Internal Medicine-Rheumatology 04/26/16 Susana Garay MD [address] [place] [address] Medical Oncologist Internal Medicine-Hematology and Oncology 10/14/22 documented as of this encounter
--- OUTSIDE RECORDS SUMMARY | 2024-08-22 21:41 | XMS_ITS | Encounter Summary ---
Author [place] [address] Care Team Providers Care Barrel Bridge Assembler Name Role Phone Julisa Kerr MD Primary Care Provider [phone] Jessica Cortes MD Unavailable [phone] Susana Garay MD Unavailable [phone] Reason for Visit * Reason Onset Date Comments Results 05/21/2023 Labs Encounter Details Date Type Department Care Team (Late st Contact Info) Description 05/21/2023 Telephone [facility] [address] [place] [address] Julisa Kerr MD [address] [place] [address] Results (Labs /) Social History Tobacco Use Types Packs/Day [...] encounter Miscellaneous Notes * Telephone Encounter - Angela Fregoso - 05/21/2023 11:26 AM EDT Images from the original note were not included. Patient Calling for Results Patient called for results on Lab Which Provider ordered the test? pcp Date of test: 05/17 Advised patient of: normal result. Patient Instructions/ Questions: Please put in the patient results note that she is aware of the following results Shelly Kraus MA 05/21/2023 11:16 AM EDT Laboratory results received, patient notified by: Left message with to return call to the office. Julisa Kerr MD 05/20/2023 6:50 PM EDT Labs ok Other: no questions documented in this encounter Plan of Treatment Upcoming Encounters Date Type Department Care Team (Late st Contact Info) Description 08/31/2024 8:30 AM EST Appointment [place] [address] [place] [address] 10/25/2024 10:45 AM EST Office Visit [facility] [address] [facility] [address] [place] [address] Jessica Cortes MD 651 [facility] 19 [place] [address] 01/25/2025 9:00 AM EDT Appointment [address] [place] [address] 05/09/2025 11:00 AM EDT Appointment [address] [place] [address] 05/09/2025 11:15 AM EDT [address]ointment [address] [place] [address] Susana Garay MD [address] [place], [place] [id number] documented as of this encounter Goals Goal Patient Goal Type Associated Problems Recent Progress Patient-Stated? 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 RN documented as of this encounter Visit Diagnoses Not on filedocumented in this encounter Care Teams Barrel Bridge Assembler Relationship Specialty Start Date End Date Julisa Kerr MD [address] [place] [address] PCP - General 02/22/11 Jessica Cortes MD 651 [facility] Building [address] [place] [address] Internal Medicine-Rheumatology 04/26/16 Susana Garay MD [address] [facility] [address] Medical Oncologist Internal Medicine-Hematology and Oncology 10/14/22 documented as of this encounter
--- OUTSIDE RECORDS SUMMARY | 2024-08-22 21:41 | XMS_ITS | Encounter Summary ---
Author Organization [place] [address] Care Team Providers Care Medical Review Specialist Name Role Phone Julisa Kerr MD Primary Care Provider [phone] Jessica Cortes MD Unavailable [phone] Susana Garay MD Unavailable [phone] Encounter Details Date Type Department Care Team (Late st Contact Info) Description 05/26/2023 Orders Only [facility] [address] [facility] [place] [address] Elizabeth Tucker MD [address] [place] [address] [place] [phone] Social History Tobacco Use Types Packs/Day Years [...] Info) Description 08/31/2024 8:30 AM EST Appointment [address] [place] [address] 10/25/2024 10:45 AM EST Office Visit [facility] [address] [place] [address] Jessica Cortes MD [address] [facility] Building [address] [place] [address] 01/25/2025 9:00 AM EDT Appointment [address] [place] [address] 05/09/2025 11:00 AM EDT Appointment [address] [place] [address] 05/09/2025 11:15 AM EDT Appointment [facility] [address] [place] [address] Susana Garay MD [address] [place] [address] [place] [address] documented as of this encounter Goals Goal Patient Goal Type Associated Problems Recent Progress Patient-Stated? 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 RN documented as of this encounter Procedures Procedure Name Priority Date/Time Associated Diagnosis Comments NEOGENOMICS STANDARD LEUKEMIA/LYMPHOMA PANEL Routine 05/26/2023 12:20 PM EDT documented in this encounter Results * NEOGENOMICS STANDARD LEUKEMIA/LYMPHOMA PANEL (05/26/2023 12:20 PM EDT) 05/26/2023 12:2 0 PM EDT Narrative [facility] - 05/29/2023 6:02 AM EDT Requesting Provider: SUSANA ??ALBERT Chavez Specimen = [id number] us Elizabeth Tucker MD PATHOLOGY ORDERABLES Final Res ult [facility] 1 [place] [address] documented in this encounter Visit Diagnoses Not on filedocumented in this encounter Care Teams Medical Review Specialist Relationship Specialty Start Date End Date Julisa Kerr MD [address] [place] [address] PCP - General 02/22/11 Jessica Cortes MD [address] [place] [address] Internal Medicine-Rheumatology 04/26/16 Susana Garay MD [address] [place] [address] Medical Oncologist Internal Medicine-Hematology and Oncology 10/14/22 documented as of this encounter
--- OUTSIDE RECORDS SUMMARY | 2024-08-22 21:41 | XMS_ITS | Encounter Summary ---
Author Organization [place] [address] Care Team Providers Care Facilities Officer Name Role Phone Julisa Kerr MD Primary Care Provider [phone] Jessica Cortes MD Unavailable [phone] Susana Garay MD Unavailable [phone] Reason for Visit * Reason Comments Medication Refill Encounter Details Date Type Department Care Team (Late st Contact Info) Description 05/19/2023 Refill [facility] [address] [place] [address] Mikala Nails MD [address] [place] [phone] Medication Refill Social History Tobacco Use Types [...] BY MOUTH EVERY DAY 30 Tablet 1 05/19/2023 06/10/2023 documented in this encounter Plan of Treatment Upcoming Encounters Date Type Department Care Team (Late st Contact Info) Description 08/31/2024 8:30 AM EST Appointment [facility] [address] [place] [address] 10/25/2024 10:45 AM EST Office Visit [facility] [address] [facility] [address] [place] [address] Jessica Cortes MD [address] [address] 01/25/2025 9:00 AM EDT Appointment [place] [address] [place] [address] 05/09/2025 11:00 AM EDT Appointment [place] [address] [place] [address] 05/09/2025 11:15 AM EDT Appointment [place] [address] [place] [address] Susana Garay MD [address] [place] [address] [place] [address] documented as of this encounter [...] Da te leflunomide (ARAVA) 10 mg Oral TabletIndications:Rheuma toid arthritis involving multiple sites with positive rheumatoid factor (HCC) TAKE 1 TABLET BY MOUTH EVERY DAY 04/21/2023 05/19/2023 documented as of this encounter Care Teams Facilities Officer Relationship Specialty Start Date End Date Julisa Kerr MD 100 [place], [place] [id number] PCP - General 02/22/11 Jessica Cortes MD [address] [address] Internal Medicine-Rheumatology 04/26/16 Susana Garay MD [address] [place] [address] [place] [address] Medical Oncologist Internal Medicine-Hematology and Oncology 10/14/22 documented as of this encounter
--- OUTSIDE RECORDS SUMMARY | 2024-08-22 21:41 | XMS_ITS | Encounter Summary ---
Author Organization [place] [address] Care Team Providers Care Barrow Worker Name Role Phone Julisa Kerr MD Primary Care Provider [phone] Jessica Cortes MD Unavailable [phone] Susana Garay MD Unavailable [phone] Reason for Visit * Reason Comments Pharmacy Rheumatology Management [place] Encounter Details Date Type Department Care Team (Latest Contact Info) Description 05/30/2023 Specialty Pharmacy [facility] [address] [phone] Xavier García CPhT Pharmacy Rheumatology Management ([place]/) Social History Tobacco Use Types Packs/Day Years [...] documented in this encounter Progress Notes * Xavier García CPhT - 05/30/2023 1:04 PM EDT Specialty Pharmacy Refill Coordination Note Contacted Yuliet Tervino today regarding refills of [place]oni. No answer, left voicemail to call [phone], option 4. * Che Wells [facility] - 05/30/2023 1:04 PM EDT Specialty Pharmacy Refill Coordination Note Contacted Yuliet Trevino today regarding refills of [place]. Medication to be delivered by [facility] on 06/11. Spoke with patient. * Jaxon Noel [facility] - 05/30/2023 1:04 PM EDT [facility] - Care Plan and Refill Review Patient is not clinically followed. Jaxon Noel [facility] Specialty Pharmacist documented in this encounter Plan of Treatment Upcoming Encounters Date Type Department Care Team (Late st Contact Info) Description 08/31/2024 8:30 AM EST Appointment [facility] [address] [address] 10/25/2024 10:45 AM EST Office Visit [facility] [address] [place] [address] Jessica Cortes MD [address] [place] [address] 01/25/2025 9:00 AM EDT Appointment [address] [place] [address] 05/09/2025 11:00 AM EDT Appointment [address] [address] 05/09/2025 11:15 AM EDT Appointment [address] [address] Susana Garay MD [address] [place] [address] [place] [address] documented as of this encounter Goals Goal Patient Goal Type Associated Problems Recent Progress Patient-Stated? Author Maintain a healthy diet, exercise regularly and maintain an ideal body weight General Porsche Ashley, RN documented as of this encounter Visit Diagnoses Not on filedocumented in this encounter Care Teams Barrow Worker Relationship Specialty Start Date End Date Julisa Kerr MD [address] [place] [address] PCP - General 02/22/11 Jessica Cotres MD 651 [facility] Building [address] [place] [address] Internal Medicine-Rheumatology 04/26/16 Susana Garay MD 1 [place] [address] Medical Oncologist Internal Medicine-Hematology and Oncology 10/14/22 documented as of this encounter
--- OUTSIDE RECORDS SUMMARY | 2024-08-22 21:41 | XMS_ITS | Encounter Summary ---
Author [place] [address] Care Team Providers Care Professor Of Music Name Role Phone Julisa Kerr MD Primary Care Provider Jessica Cortes MD Unavailable [phone] Susana Garay MD Unavailable [phone] Reason for Visit * Reason Onset Date Comments Follow-up 05/21/2023 appt 05/14/23 Encounter Details Date Type Department Care Team (Late st Contact Info) Description 05/21/2023 Telephone [facility] [address] [place] [address] Julisa Kerr MD [address] [place], [place] [id number] Follow-up (appt 05/14/23) Social History Tobacco Use Types Packs/Day Years [...] Assessment Author No 02/12/2022 2:17 PM EDT Albni Levy MA * Because of a physical, [...] on Days 2 through 5. 6 Tablet 05/21/2023 3 documented in this encounter Miscellaneous Notes * Telephone Encounter - Khadijah Gorman RMA - 05/21/2023 5:43 PM EDT Left message. * Telephone Encounter - Julisa Kerr MD - 05/21/2023 5:40 PM EDT Med sent * Telephone Encounter - Yamil Higgins COA - 05/21/2023 10:44 AM EDT Pt following up from appt on 05/14/23 Lymphadenopathy, thoracic Lymphocytosis Rheumatoid arthritis involving multiple sites with positive rheumatoid factor (HCC) Acute bilateral low back pain without sciatica Antiphospholipid syndrome (HCC) Immunocompromised patient (HCC) Enlarged lymph nodes Knee mass, left Pt states her head is still not cleared up. Pt ask if provider will prescribe a zpack? please advise documented in this encounter Plan of Treatment Upcoming Encounters Date Type Department Care Team (Late st Contact Info) Description 08/31/2024 8:30 AM EST Appointment [address] [place] [address] 10/25/2024 10:45 AM EST Office Visit [facility] [address] [place] [address] Jessica Cortes MD [address] [place] [address] 01/25/2025 9:00 AM EDT Appointment [address] [place] [address] 05/09/2025 11:00 AM EDT Appointment [address] [place] [address] 05/09/2025 11:15 AM EDT Appointment [address] [place] [address] Susana Garay MD [address] [place] [address] [place] [address] documented as of this encounter Goals Goal Patient Goal Type Associated Problems Recent Progress Patient-Stated? 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, RN documented as of this encounter Visit Diagnoses Not on filedocumented in this encounter Care Teams Professor Of Music Relationship Specialty Start Date End Date Julisa Kerr MD [address] [place] [address] PCP - General 02/22/11 Jessica Cortes MD 651 [facility] [address] [place] [address] Internal Medicine-Rheumatology 04/26/16 Susana Garay MD [address] [place] [address] Medical Oncologist Internal Medicine-Hematology and Oncology 10/14/22 documented as of this encounter
--- OUTSIDE RECORDS SUMMARY | 2024-08-22 21:41 | XMS_ITS | Encounter Summary ---
Author Organization [place] [address] Care Team Providers Care Pocket And Pulley Machine Operator Name Role Phone Julisa Kerr MD Primary Care Provider [phone] Jessica Cortes MD Unavailable [phone] Susana Garay MD Unavailable [phone] Reason for Visit * Reason Comments Edema Knee Pain Encounter Details Date Type Department Care Team (Late st Contact Info) Description 04/28/2023 10:30 AM EDT Telemedicine [facility] [address] [place] [id number] Jhon Peña, [employer] AD[employer] [address] [place] [address] Bilateral lower extremity edema (Primary Dx); Acute pain of both knees Social History Tobacco Use Types Packs/Day Years [...] by mouth daily as needed. 30 Tablet 04/28/2023 3 predniSONE (DELTASONE) 20 mg Oral TabletIndications: Acute pain of both knees Take 2 Tablets by mouth daily for 5 days. 10 Tablet 04/28/2023 3 documented in this encounter Progress Notes * Jhon Peña APRN - 04/28/2023 10:30 AM EDT Patient presented today for routine care follow-up through a video visit. Patient has reviewed the terms and conditions of service as part of the registration for today's visit. A video visit does not replace a sjhy-ix-yxal exam and further services may be necessary. We are conducting her video visit in a private space and this video visit is being conducted in accordance with state telehealth/video visit regulations. HPI: Presents virtually with bilateral lower extremity edema with pain that has worsened over the last several days. Has taken ibuprofen with minimal improvement. Review of Systems Cardiovascular: Positive for leg swelling. Musculoskeletal: Positive for arthralgias. Exam: Constitutional: NAD, appropriately groomed. Appears comfortable. [...] Diagnoses and all orders for this visit: Bilateral lower extremity edema - fUROsemide (LASIX) 20 mg Oral Tablet; Take 1 Tablet by mouth daily as needed. Dispense: 30 Tablet; Refill: 0 Acute pain of both knees - predniSONE (DELTASONE) 20 mg Oral Tablet; Take 2 Tablets by mouth daily for 5 days. Dispense: 10 Tablet; Refill: 0 documented in this encounter Plan of Treatment Upcoming Encounters Date Type Department Care Team (Late st Contact Info) Description 08/31/2024 8:30 AM EST Appointment [address] [address] [place] [address] 10/25/2024 10:45 AM EST Office Visit [facility] [address] [place] [address] Jessica Corets MD [address] [facility] Building [address] [place] [address] 01/25/2025 9:00 AM EDT Appointment [address] [address] [place] [address] 05/09/2025 11:00 AM EDT Appointment [address] [address] [place] [address] 05/09/2025 11:15 AM EDT Appointment [facility] [address] [place], [place] [phone] Susana Garay MD [address] [place] [address] documented as of this encounter Goals Goal Patient Goal Type Associated Problems Recent Progress Patient-Stated? Author Maintain a healthy diet, exercise regularly and maintain an ideal body weight General Porsche Ashley, RN documented as of this encounter Visit Diagnoses Diagnosis Bilateral lower extremity edema- Primary Edema Acute pain of both knees documented in this encounter Care Teams Pocket And Pulley Machine Operator Relationship Specialty Start Date End Date Julisa Kerr MD [address] [place] [address] PCP - General 02/22/11 Jessica Cortes MD [address] [place] [address] Internal Medicine-Rheumatology 04/26/16 Susana Garay MD [address] [place] [address] Medical Oncologist Internal Medicine-Hematology and Oncology 10/14/22 documented as of this encounter
--- OUTSIDE RECORDS SUMMARY | 2024-08-22 21:41 | XMS_ITS | Encounter Summary ---
Author Organization [place] [address] Care Team Providers Care Rubber Gasket Inspector Trimmer Name Role Phone Julisa Kerr MD Primary Care Provider [phone] Jessica Cortes MD Unavailable [phone] Susana Garay MD Unavailable [phone] Reason for Referral * MRI/CAT Scan (Emergency) - Closed Specialty Diagnoses / Procedures Referred By Contac t Referred To Contact Radiology Diagnoses Lymphadenopathy, thoracic Lymphocytosis Knee mass, left Procedures MRI KNEE LEFT WO CONTRAST Julisa Kerr MD [address] [place] [address] Phone: tel: fax: Referral ID Status Reason Start Date Expiration Date Visits Re quested Visits Authorized [id number] Closed 05/15/2023 05/14/2024 1 1 Reason for Visit * Reason Onset Date Comments Other 05/15/2023 Follow-up 05/15/2023 appt 05/14/23 Encounter Details Date Type Department Care Team (Late st Contact Info) Description 05/15/2023 Telephone [facility] [address] [place] [address] Julisa Kerr MD [address] [id number] Other; Follow-up (appt 05/14/23 ) Social History Tobacco Use Types Packs/Day [...] EDAlbin Brennan MA documented in this encounter Miscellaneous Notes * Telephone Encounter - Dania Gutierrez MA - 05/15/2023 5:26 PM EDT No answer,LVM Please see 's message * Telephone Encounter - Julisa Kerr MD - 05/15/2023 5:16 PM EDT The sept one is too long and is changed to stat. (Mri knee) * Telephone Encounter - Yamil Higgins COA - 05/15/2023 11:49 AM EDT Pt following up from appt 05/14/[address] Kerr ordered MRI and CT. Pt states the test can't be done until 05/23/23 and 06/10/23. Pt ask if this is ok? * Telephone Encounter - Yolanda Steward - 05/15/2023 9:04 AM EDT pt calling see if test results from [facility] was received please advise documented in this encounter Plan of Treatment Upcoming Encounters Date Type Department Care Team (Late st Contact Info) Description 08/31/2024 8:30 AM EST Appointment [address] [place] [address] 10/25/2024 10:45 AM EST Office Visit [facility] [address] [place] [phone] Jessica Cortes MD [address] [facility] Building [address] [place] [address] 01/25/2025 9:00 AM EDT Appointment [address] [place] [address] 05/09/2025 11:00 AM EDT Appointment [facility] [place] [address] 05/09/2025 11:15 AM EDT Appointment [facility] [place] [address] Susana Garay MD [address] [facility] [address] Scheduled Orders Name Type Priority Associated Diagnoses Orde r Schedule MRI KNEE LEFT WO CONTRAST Imaging STAT Lymphadenopathy, thoracic Lymphocytosis Knee mass, left 1 Occurrences starting 05/15/2023 until 05/15/2024 documented as of this encounter Goals Goal Patient Goal Type Associated Problems Recent Progress Patient-Stated? 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 RN documented as of this encounter Visit Diagnoses Diagnosis Lymphadenopathy, thoracic- Primary Lymphocytosis Lymphocytosis (symptomatic) Knee mass, left documented in this encounter Care Teams Rubber Gasket Inspector Trimmer Relationship Specialty Start Date End Date Julisa Kerr MD [address] [place] [address] PCP - General 02/22/11 Jessica Cortes MD 651 [facility] [address] [place], [place] [id number] Internal Medicine-Rheumatology 04/26/16 Susana Garay MD [address] [place] [address] [address] [place] [phone] Medical Oncologist Internal Medicine-Hematology and Oncology 10/14/22 documented as of this encounter
--- OUTSIDE RECORDS SUMMARY | 2024-08-22 21:41 | XMS_ITS | Encounter Summary ---
Author Organization [place] [address] Care Team Providers Care Saturation Equipment Operator Name Role Phone Julisa Kerr MD Primary Care Provider [phone] Jessica Cortes MD Unavailable [phone] Susana Garay MD Unavailable [phone] Reason for Referral * Vascular Imaging (Routine) - Pending Review Specialty Diagnoses / Procedures Referred By Contac t Referred To Contact Radiology Diagnoses Localized swelling of left lower leg Procedures VA US LOWER EXTREMITY VENOUS LEFT Susana Garay MD [address] [place], [place] [id number] Phone: tel: fax: [facility] [address] [place] [address] Phone: tel: fax: Referral ID Status Reason Start Date Expiration Date V isits Requested Visits Authorized [id number] Pending Review 05/26/2023 05/26/2025 1 1 Reason for Visit * Reason Comments Follow-up Follow up Encounter Details Date Type Department Care Team (Latest Contact Info) Description 05/26/2023 10:44 AM EDT - 05/26/2023 11:59 PM EDT Hospital Encounter [facility] Cancer [address] [place] [address] Susana Garay MD [address] [place] [address] Leukocytosis, unspecified type (Primary Dx); Localized swelling of left lower leg Discharge [...] Reading Time Taken Comments Blood Pressure 110/70 05/26/2023 10:57 AM EDT Pulse 90 05/26/2023 10:57 AM EDT Temperature 37.2 ??C (99 ??F) 05/26/2023 10: 57 AM EDT Respiratory Rate 16 05/26/2023 10:5 7 AM EDT Oxygen Saturation 99% 05/26/2023 10: 57 AM EDT Inhaled Oxygen Concentration - - Weight 60.7 kg (133 lb 12.8 oz) 023 10:57 AM EDT Height 158.8 cm (5' 2.5 ) 05/26/2023 10 :57 AM EDT Body Mass Index 24.08 05/26/2023 10:57 AM EDT documented in this encounter Functional [...] Progress Notes * Susana Garay MD - 05/26/2023 10:45 AM EDT Images from the original note were not included. Patient: Yuliet Trevino [facility]: [id number] Date of : 1970 Age: 52 y.o. Date of Service: 05/26/2023 HEMATOLOGY/ONCOLOGY FOLLOW UP VISIT Primary Oncologist: Susana [...] for Chief Complaint Patient presents with Follow-up Follow up Presents today for f/u and eval of elevated WBCs and LAD noted on imaging. Feeling very poorly w/ fatigue, nausea, pain weakness over the past 3 months - initially thought she had a viral infx but after it lasted longer than she though was nl, she was eval at [facility] and had a CTscan showing cervical LAD and a mass behind Lt knee. Remains on Simponi and MTX for RA but has not been taking pred or arava for RA due to feeling poorly. Remains on NOAC w/o issue. PHYSICAL EXAM: Vitals: 05/26/23 1057 BP: 110/70 Pulse: 90 Resp: 16 Temp: 99 ??F (37.2 ??C) SpO2: 99% Wt Readings from Last 3 Encounters: 05/26/23 133 lb 12.8 oz (60.7 kg) 05/14/23 138 lb (62.6 kg) 03/24/23 139 lb (63 kg) ECO Physical Exam Constitutional: General: She is not in acute distress. Comments: Fatigue, chronically unwell appearing Pulmonary: Effort: Pulmonary effort is normal. No respiratory distress. Musculoskeletal: General: Swelling (B/L knees and ankles) and deformity (fingers) present. Legs: Neurological: Mental Status: She is alert and oriented to person, place, and time. Psychiatric: Mood and Affect: Mood and affect normal. MEDICAL DATA REVIEW: Medication, Allergies, Labs, Images, Path Reviewed. 06/06/22 13:20 07/08/22 16:25 10/15/22 11:21 Cardiolipin IgG 18 (H) <10 21 (H) Cardiolipin IgM 72 (H) 35 (H) 64 (H) CT CHEST W CONTRAST Result Date: 05/23/2023 Mildly enlarged right axillary lymph nodes measuring up to 1.0 cm in short axis 03/24/23 12:35 05/02/23 11:34 05/14/23 09:51 WBC 12.2 (H) 17.4 (H) 12.3 (H) Hgb 13.5 14.6 13.4 Platelets 396 (H) 401 (H) 332 Neut# 7.1 (H) 13.4 (H) 8.4 (H) Lymph# 3.5 2.1 1.7 [place]# 1.1 (H) 1.2 (H) 1.8 (H) ASSESSMENT & PLAN Yuliet was seen today for follow-up. Diagnoses and all orders for this visit: Leukocytosis, unspecified type - CBC WITH DIFF; Future - SEDIMENTATION RATE AUTOMATED; Future - C-REACTIVE PROTEIN; Future - LACTATE DEHYDROGENASE; Future - FLOW CYTOMETRY PERIPHERAL BLOOD; Future - PERIPHERAL SMEAR/PATH REVIEW; Future - JAK2 [id number] W/RFLX CALR W/RFLX MPL-REF LAB; Future Localized swelling of left lower leg - VA US LOWER EXTREMITY VENOUS LEFT; Future Leukocytosis - Suspect reactive related to RA which seems active currently, certainly w/ h/o using several diff types of DMARDs pt is at risk for infx or neoplastic causes. - eval for primary hematologic d/o - repeat CBC/d and check PBS, flow, LDH (if cont elevation of WBCs will check JAK2, CALR, MPL) - eval for degree of inflammation - check ESR/CRP - Check U/S LLE (unclear if popliteal mass if a Bakers cyst or LN or other mass) - D/w pt that I suspect her syx relate to uncontrolled RA and would strongly recommend she get backin with rheum sooner rather than later. Antiphospholipid An Synd w/ RLE DVT - [...] Code status: To be addressed. Dispo: Return for Needs labs checked today, F/u TBD based on results. Thank you for the opportunity to assist in the care of this patient, please feel free to contact meif I can be of any assistance. Time spend in caring for this patient today, includes: - Chart review/preparation: 10 min - Time spent in visit: 25 min - Chart completion/collaboration with other providers: 10 min Susana Garay MD Hematology and Medical Oncology [facility] documented in this encounter Plan of Treatment Upcoming Encounters Date Type Department Care Team (Late st Contact Info) Description 08/31/2024 8:30 AM EST Appointment [facility] Cancer [address] [address] [place] [address] 10/25/2024 10:45 AM EST Office Visit [facility] [address] [place] [address] Jessica Cortes MD [address] [place] [address] 01/25/2025 9:00 AM EDT Appointment [address] [place] [address] 05/09/2025 11:00 AM EDT Appointment [address] [place] [address] 05/09/2025 11:15 AM EDT [address]ointment [address] [place] [address] Susana Garay MD [address] [place] [address] [place] [address] documented as of this encounter Goals Goal Patient Goal Type Associated Problems Recent Progress Patient-Stated? 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, RN documented as of this encounter Results * [facility] [...] in the contralateral right common femoral vein. us Susana Garay MD IMG VASCULAR ORDERABLES Final Result * PERIPHERAL SMEAR/PATH REVIEW (05/26/2023 12:20 PM [...] Breanna Walters MD 05/27/2023 9:19 AM EDT [facility] Blood VENOUS BLOOD / Unknown Venipuncture / Unknown 05/26/2023 12:20 PM EDT 05/26/2023 12:27 PM EDT us Susana Garay MD HEMATOLOGY [place] [address] * FLOW CYTOMETRY PERIPHERAL BLOOD (05/26/2023 12:20 PM EDT) FINAL DIAGNOSIS Peripheral blood, flow cytometric immunophenotyping: - No diagnostic immunophenotypic abnormalities detected. - See scanned flow cytometry report for complete details. Note: Flow cytometric immunophenotyping studies performed at [facility] ([id number]) on a 98.5% viable specimen using 24 antibody markers were interpreted by Dr. Tucker . See separate report in [facility] for complete details. 05/29/2023 5:56 AM EDT [facility] OSCOPIC DESCRIPTION Microscopic examination is performed and the findings corroborate the diagnosis. 05/29/2023 5:56 AM EDT [facility] EMBEDDED IMAGES 05/29/2023 5:56 AM EDT [facility] CASE REPORT Peripheral Blood ?Case: [id number] ? Authorizing Provider: ??Susana Garay MD ? Collected: ? 05/26/2023 1220 ? Ordering Location: ? [facility] Cancer [facility] ? Received: ?05/27/2023 1058 ? [facility] ? Pathologist: ? Elizabeth Tucker MD ? Specimen: ?Arm ? 05/29/2023 5:56 AM EDT [facility] Blood UPPER LIMB STRUCTURE / Unknown Venipuncture / Unknown 05/26/2023 12:20 PM EDT 05/27/2023 10:58 AM EDT us Susana Garay MD PATHOLOGY ORDERABLES Final Re sult [facility] [address] [place] [address] * LACTATE DEHYDROGENASE (05/26/2023 12:20 PM EDT) LDH 210 135 - 214 U/L 05/26/2023 12:48 PM EDT [facility] Blood VENOUS BLOOD / Unknown Venipuncture / Unknown 05/26/2023 12:20 PM EDT 05/26/2023 12:27 PM EDT us Susana Garay MD CHEMISTRY ORDERABLES Final Re sult Performing Organization Address City/[facility]/ZIP Co de Phone Number [facility] [address] [place] [address] * (ABNORMAL) C-REACTIVE PROTEIN (05/26/2023 12:20 PM EDT) Pathologist [facility] CRP 143.26(H) <=5.00 mg/L 05/26/2023 9:56 PM EDT [facility] Blood VENOUS BLOOD / Unknown Venipuncture / Unknown 05/26/2023 12:20 PM EDT 05/26/2023 12:27 PM EDT us Susana Garay MD CHEMISTRY ORDERABLES Final Re sult [facility] [address] [place], [place] [id number] * (ABNORMAL) SEDIMENTATION RATE AUTOMATED (05/26/2023 12:20 PM EDT) Sed Rate 77(H) 0 - 30 mm/hr 05/26/2023 12:40 PM EDT [facility] Blood VENOUS BLOOD / Unknown Venipuncture / Unknown 05/26/2023 12:20 PM EDT 05/26/2023 12:27 PM EDT us Susana Garay MD HEMATOLOGY ORDERABLES Final R esult [facility] [address] [place] [address] * (ABNORMAL) CBC WITH DIFF (05/26/2023 12:20 PM EDT) WBC 8.7 3.7 - 10.3 x10(3)/mc L 05/26/2023 12:40 PM EDT [facility] RBC 4.11 3.90 - 5.20 x10(6)/mc L 05/26/2023 12:40 PM EDT [facility] Hgb 11.1(L) 11.2 - 15.7 g/dL 05/26/2023 12:40 PM EDT [facility] Hct 35.2 34.0 - 45.0 % 05/26/2023 12:40 PM EDT [facility] MCV 85.6 80.0 - 100.0 fL 05/26/2023 12:40 PM EDT [facility] MCH 27.0 26.0 - 34.0 pg 05/26/2023 12:40 PM EDT [facility] MCHC 31.5 30.7 - 35.5 g/dL 05/26/2023 12:40 PM EDT [facility] RDW 14.0 <=14.9 % 05/26/2023 12:40 PM EDT [facility] Platelet 563(H) 155 - 369 x10(3)/mc L 05/26/2023 12:40 PM EDT [facility] MPV 9.8 8.8 - 12.5 fL 05/26/2023 12:40 PM EDT [facility] Neut # Prelim 5.6 1.6 - 6.1 x10(3)/mc L 05/26/2023 12:40 PM EDT [facility] Comment:Preliminary automate d absolute neutrophil count. Value may change if manual differential is indicated. Neut Percent 64.3 % 05/26/2023 12:40 PM EDT [facility] Comment:Neutrophils equals s egs plus bands Imm Gran% 0.3 % 05/26/2023 12:40 PM EDT [facility] Comment:Automated count of m etamyelocytes, myelocytes and promyelocytes. Lymph Percent 19.2 % 05/26/2023 12:40 PM EDT [facility] [place] Percent 13.1 % 05/26/2023 12:40 PM EDT [facility] Eos Percent 2.6 % 05/26/2023 12:40 PM EDT [facility] Baso Percent 0.5 % 05/26/2023 12:40 PM EDT [facility] Neut # 5.6 1.6 - 6.1 x10(3)/mc L 05/26/2023 12:40 PM EDT [facility] Comment:Neutrophils equals s egs plus bands IMMGRAN# 0.0 0.0 - 0.1 x10(3)/mc L 05/26/2023 12:40 PM EDT [facility] Comment:Automated count of m etamyelocytes, myelocytes and promyelocytes. An absolute IG <0.1 is reported as 0.0. Lymph # 1.7 1.2 - 3.9 x10(3)/mc L 05/26/2023 12:40 PM EDT [facility] [place] # 1.1(H) 0.3 - 0.9 x10(3)/mc L 05/26/2023 12:40 PM EDT [facility] Eos# 0.2 0.0 - 0.5 x10(3)/mc L 05/26/2023 12:40 PM EDT [facility] Baso # 0.0 0.0 - 0.1 x10(3)/mc L 05/26/2023 12:40 PM EDT [facility] Blood VENOUS BLOOD / Unknown Venipuncture / Unknown 05/26/2023 12:20 PM EDT 05/26/2023 12:27 PM EDT us Susana Garay MD HEMATOLOGY ORDERABLES Final R esult [facility] [address] [place] [address] documented in this encounter Visit Diagnoses Diagnosis Leukocytosis, unspecified type- Primary Localized swelling of left lower leg Localized swelling of left lower leg documented in this encounter Care Teams Saturation Equipment Operator Relationship Specialty Start Date End Date Julisa Kerr MD [address] [place] [address] PCP - General 02/22/11 Jessica Cortes MD [address] [facility] [address] [place] [address] Internal Medicine-Rheumatology 04/26/16 Susana Garay MD [address] [place] [address] Medical Oncologist Internal Medicine-Hematology and Oncology 10/14/22 documented as of this encounter
--- OUTSIDE RECORDS SUMMARY | 2024-08-22 21:42 | XMS_ITS | Encounter Summary ---
Author Organization [facility] [place] [address] Care Team Providers Care Major Gifts Director Name Role Phone Julisa Kerr MD Primary Care Provider [phone] Jessica Cortes MD Unavailable [phone] Susana Garay MD Unavailable [phone] Encounter Details Date Type Department Care Team (Latest Contact Info) Description 01/20/2023 Travel Social History Tobacco Use Types Packs/Day Years Used Date Smoking Tobacco: Never Smokeless Tobacco: Never Alcohol Use Standard Drinks/Week Comments Yes 0 (1 standard drink = 0.6 oz pur e alcohol) occasional PHQ-2 Answer Date Recorded PHQ-2 Total Score 0 02/12/2022 Sexually Active Control Partners Comments Yes Comments [...] suspected to have Coronavirus/COVID-19? No / Unsure 01/20/2023 1:34 PM EDT documented as of this encounter Functional [...] Info) Description 08/31/2024 8:30 AM EST Appointment [address] [place] [address] 10/25/2024 10:45 AM EST Office Visit [facility] [address] [facility] [address] [place] [address] Jessica Cortes MD [address] [place] [address] [address] [place] [address] 01/25/2025 9:00 AM EDT [address]ment [address] [place] [address] 05/09/2025 11:00 AM EDT [address]ment [address] [address] 05/09/2025 11:15 AM EDT Appointment [address] [place] [address] Susana Garay MD [address] [place] [address] [place] [address] documented as of this encounter Goals Goal Patient Goal Type Associated Problems Recent Progress Patient-Stated? Author Maintain a healthy diet, exercise regularly and maintain an ideal body weight General Porsche Ashley, RN documented as of this encounter Visit Diagnoses Not on filedocumented in this encounter Care Teams Major Gifts Director Relationship Specialty Start Date End Date Julisa Kerr MD [address] [place] [address] PCP - General 02/22/11 Jessica Cortes MD [address] [place] [address] Internal Medicine-Rheumatology 04/26/16 Susana Garay MD [address] [place] [address] Medical Oncologist Internal Medicine-Hematology and Oncology 10/14/22 documented as of this encounter
--- OUTSIDE RECORDS SUMMARY | 2024-08-22 21:42 | XMS_ITS | Encounter Summary ---
Author Organization [place] [address] Care Team Providers Care Rn Observation Name Role Phone Julisa Kerr MD Primary Care Provider [phone] Jessica Cortes MD Unavailable [phone] Susana Garay MD Unavailable [phone] Reason for Visit * Reason Comments Pharmacy Specialty Management Encounter Details Date Type Department Care Team (Latest Contact Info) Description 04/08/2023 Specialty Pharmacy [facility] [address] [facility] [address] [place] [id number] Juan Luis Lyn PharmD Pharmacy Specialty Management Social History Tobacco Use Types Packs/Day [...] suspected to have Coronavirus/COVID-19? No / Unsure 03/24/2023 8:13 AM EDT documented as of this encounter [...] skin every 30 days. 1 mL 2 06/10/2023 9:46 AM EDT 04/08/2023 06/20/2023 documented in this encounter Progress Notes * Juan Luis Lyn, [facility] - 04/08/2023 4:11 PM EDT [facility] 04/08/2023 5:00 PM Patient has no active referral to [facility] Management Clinic. Patient was seen for follow-up by [facility] Rheumatology on 03/24/23. Reordered remaining refills of Simponi to [facility] to gain 340b eligibility. Ordered as verbal order so that order goes to provider [facility] [place] for review and cosign. Per [employer] data, patient had 3 refills remaining on original order. Thank you for the opportunity to participate in the care of this patient. Juan Luis Lyn, PharmD, BCACP Specialty Referral Inseam Trimming Machine Operator documented in this encounter Plan of Treatment Upcoming Encounters Date Type Department Care Team (Late st Contact Info) Description 08/31/2024 8:30 AM EST Appointment [address] [place] [address] 10/25/2024 10:45 AM EST Office Visit [facility] [address] [place] [address] Jessica Cortes MD [address] [place] [address] 01/25/2025 9:00 AM EDT Appointment [address] [place] [address] 05/09/2025 11:00 AM EDT [address]ointment [address] [place] [place] [address] 05/09/2025 11:15 AM EDT [address]ointment [address] [place] [place] [address] Susana Garay MD [address] [place] [address] documented as of this encounter Goals Goal [...] under the skin every 30 days. Reorder 01/02/2023 04/08/2023 documented as of this encounter Care Teams Rn Observation Relationship Specialty Start Date End Date Julisa Kerr MD [address] [place], [place] [address] PCP - General 02/22/11 Jessica Cortes MD [address] [facility] [address] [place] [address] Internal Medicine-Rheumatology 04/26/16 Susana Garay MD [address] [place] [address] Medical Oncologist Internal Medicine-Hematology and Oncology 10/14/22 documented as of this encounter
--- OUTSIDE RECORDS SUMMARY | 2024-08-22 21:42 | XMS_ITS | Encounter Summary ---
Author Organization [place] [address] Care Team Providers Care It Solutions Architect Name Role Phone Julisa Kerr MD Primary Care Provider [phone] Jessica Cortes MD Unavailable [phone] Susana Garay MD Unavailable [phone] Encounter Details Date Type Department Care Team (Latest Contact Info) Description 03/24/2023 12:30 PM EDT - 03/24/2023 11:59 PM EDT Hospital Encounter [facility] [address] [place] [address] Tuberculosis screening; Therapeutic drug monitoring; Lightheadedness; Memory loss; Annual physical exam Discharge Disposition: Home or [...] TABLET BY MOUTH EVERY DAY 30 Tablet 03/24/2023 04/21/2023 documented as of this encounter Discharge Disposition Disposition Code Departure Means Destination Home or Self Care documented in this encounter Plan of Treatment Upcoming Encounters Date Type Department Care Team (Late st Contact Info) Description 08/31/2024 8:30 AM EST Appointment [facility] [address] [place] [address] 10/25/2024 10:45 AM EST Office Visit [facility] [address] [place] [address] Jessica Cortes MD [address] [facility] Building [address] [place] [address] 01/25/2025 9:00 AM EDT Appointment [address] [place] [address] [place] [address] 05/09/2025 11:00 AM EDT Appointment [address] [place] [address] 05/09/2025 11:15 AM EDT Appointment [address] [address] [place] [address] Susana Garay MD [address] [place] [address] [place] [address] documented as of this encounter Goals Goal Patient Goal Type Associated Problems Recent Progress Patient-Stated? Author Maintain a healthy diet, exercise regularly and maintain an ideal body weight General Porsche Ashley RN documented as of this encounter Procedures Procedure Name Priority Date/Time Associated Diagnosis Comments QUANTIFERON TB GOLD Routine 03/24/2023 1 2:35 PM EDT Tuberculosis screening SYPHILIS SCREEN WITH REFLEX RPR QUANT Routine 03/24/2023 12:35 PM EDT Memory loss VITAMIN B12/ FOLIC ACID Routine 03/24/2023 12:35 PM EDT Memory loss TSH REFLEX Routine 03/24/2023 12:35 PM EDT Memory loss SEDIMENTATION RATE AUTOMATED Routine 03/24/2023 12:35 PM EDT Therapeutic drug monitoring CBC WITH DIFF Routine 03/24/2023 12:35 PM EDT Therapeutic drug monitoring C-REACTIVE PROTEIN Routine 03/24/2023 12 :35 PM EDT Therapeutic drug monitoring LIPID SCREEN Routine 03/24/2023 12:35 PM EDT Annual physical exam COMPREHENSIVE METABOLIC PANEL Routine 03/24/2023 12:35 PM EDT Therapeutic drug monitoring documented in this encounter Results * (ABNORMAL) LIPID SCREEN (03/24/2023 12:35 PM EDT) Cholesterol 165 <200 mg/dL 03/24/2023 9:00 PM EDT [facility] Comment: < 200 ?Desirable 200 - 239 ? Borderline High >= 240 ?High Triglyceride 160(H) <150 mg/dL 03/24/2023 9:00 PM EDT [facility] Comment: < 150 ? Normal 150 - 199 ?Borderline High 200 - 499 ?High ??>= 500 ? Very High HDL 41 >=40 mg/dL 03/24/2023 9:00 PM EDT [facility] Comment: ??> 60 ?Optimal 40 - 60 ?Acceptable ?? < 40 ?Low LDL Calculated 96 <100 mg/dL 03/24/2023 9:00 PM EDT [facility] Comment: < 100 ?Optimal 100 - 129 ? Near or above optimal 130 - 159 ? Borderline High 160 - 189 ? High >= 190 ?Very High Non-HDL-C Calculated 124 <=129 mg/dL 03/24/2023 9:00 PM EDT [facility] Comment: <130 ?Desirable 130-159 Above Desirable 160-189 Borderline High 190-219 High >= 220 ??Very High Fasting Specimen? Yes None 023 9:00 PM EDT [facility] Blood VENOUS BLOOD / Unknown Venipuncture / Unknown 03/24/2023 12:35 PM EDT 03/24/2023 12:35 PM EDT Thierno Toth MD CHEMISTRY ORDERABLES Fi nal Result Performing Organization Address [facility] de Phone Number [facility] [address] [facility] , [address] [phone] [facility] 1 [place] [address] * SYPHILIS SCREEN WITH REFLEX RPR QUANT (03/24/2023 12:35 PM EDT) Trep Ab Index 0.06 <=0.99 Index Value 03/24/2023 9:00 PM EDT [facility] Comment: < 1.00 - Non-Reactive ?? >=1.00 - Reactive NOTE: ??All reactive results will be reflexed to Quantitative Non-Treponemal(RPR)test. ?? Blood VENOUS BLOOD / Unknown Venipuncture / Unknown 03/24/2023 12:35 PM EDT 03/24/2023 12:35 PM EDT Thierno Toth MD CHEMISTRY ORDERABLES Fi nal Result Performing Organization Address [facility] Phone Number [facility] [address] [facility] , [place] [phone] * TSH REFLEX (03/24/2023 12:35 PM EDT) TSH Reflex 1.730 0.270 - 4.200 mcIU/mL 03/24/2023 9:00 PM EDT [facility] Blood VENOUS BLOOD / Unknown Venipuncture / Unknown 03/24/2023 12:35 PM EDT 03/24/2023 12:35 PM EDT Narrative [facility] - 03/24/2023 9:00 PM EDT Ingestion of beverley doses of biotin (>5 mg/day) taken within 8 hours of drawing blood sample can interfere with this immunoassay test. Thierno Toth MD CHEMISTRY ORDERABLES Fi nal Result Performing Organization Address [facility] Co de Phone Number [facility], [address] , [place] [address] * VITAMIN B12/ FOLIC ACID (03/24/2023 12:35 PM EDT) Vitamin B12 261 232 - 1,245 pg/mL 03/24/2023 8:14 PM EDT [facility], [facility] Folate 13.70 >=4.80 ng/mL 03/24/2023 8:14 PM EDT [facility] Blood VENOUS BLOOD / Unknown Venipuncture / Unknown 03/24/2023 12:35 PM EDT 03/24/2023 12:35 PM EDT Narrative [facility] - 03/24/2023 8:14 PM EDT Ingestion of beverley doses of biotin (>5 mg/day) taken within 8 hours of drawing blood sample can interfere with this immunoassay test. Thierno Toth MD CHEMISTRY ORDERABLES Fi nal Result Performing Organization Address [facility] Co de Phone Number [facility], [address] , [place] [address] * (ABNORMAL) COMPREHENSIVE METABOLIC PANEL (03/24/2023 12:35 PM EDT) Sodium 137 136 - 145 mmol/L 03/24/2023 9:00 PM EDT [facility] Potassium 3.4(L) 3.5 - 5.0 mmol/L 03/24/2023 9:00 PM EDT [facility] Chloride 101 98 - 107 mmol/L 03/24/2023 9:00 PM EDT [facility] Total CO2 23 22 - 29 mmol/L 03/24/2023 9:00 PM EDT [facility] Anion Gap 13 7 - 16 mmol/L 03/24/2023 9:00 PM EDT [facility] Calcium 9.4 8.6 - 10.4 mg/dL 03/24/2023 9:00 PM EDT [facility] Glucose Lvl 105(H) 74 - 100 mg/dL 03/24/2023 9:00 PM EDT [facility] BUN 9 6 - 20 mg/dL 03/24/2023 9:00 PM EDT [facility], [facility] Creatinine 0.75 0.51 - 1.30 mg/dL 03/24/2023 9:00 PM EDT [facility], [facility] Albumin 4.0 3.5 - 5.2 gm/dL 03/24/2023 9:00 PM EDT [facility], [facility] Total Protein 7.0 6.4 - 8.3 gm/dL 03/24/2023 9:00 PM EDT [facility], [facility] Bili Total 0.2 0.1 - 1.3 mg/dL 03/24/2023 9:00 PM EDT [facility], [facility] ALT 8 <=41 U/L 03/24/2023 9:00 PM EDT [facility], [facility] AST 15 <=40 U/L 03/24/2023 9:00 PM EDT [facility], [facility] Alk Phos 69 36 - 123 U/L 03/24/2023 9:00 PM EDT [facility], [facility] eGFR (CKD-EPIcr 2020) 95 >=60 mL/min/1.7 3 m2 03/24/2023 9:00 PM EDT [facility] Comment:Estimated GFR was ca lculated using the CKD-EPIcr (2020) equation refit without race. The equation is recommended by the National Kidney Foundation - [place] [employer] of Nephrology Task Force. Blood VENOUS BLOOD / Unknown Venipuncture / Unknown 03/24/2023 12:35 PM EDT 03/24/2023 12:35 PM EDT us Jessica Cortes MD CHEMISTRY ORDERABLES Siobhan l Result [facility] [address] [facility] , [place] [address] [facility] [address] [place] [address] * (ABNORMAL) CBC WITH DIFF (03/24/2023 12:35 PM EDT) WBC 12.2(H) 3.7 - 10.3 x10(3)/mcL 03/24/2023 8:21 PM EDT [facility] RBC 4.98 3.90 - 5.20 x10(6)/mcL 03/24/2023 8:21 PM EDT [facility] Hgb 13.5 11.2 - 15.7 g/dL 03/24/2023 8:21 PM EDT [facility] Hct 44.5 34.0 - 45.0 % 03/24/2023 8:21 PM EDT [facility] MCV 89.4 80.0 - 100.0 fL 03/24/2023 8:21 PM EDT [facility] MCH 27.1 26.0 - 34.0 pg 03/24/2023 8:21 PM EDT [facility] MCHC 30.3(L) 30.7 - 35.5 g/dL 03/24/2023 8:21 PM EDT [facility] RDW 14.8 <=14.9 % 03/24/2023 8:21 PM EDT [facility] Platelet 396(H) 155 - 369 x10(3)/mcL 03/24/2023 8:21 PM EDT [facility] MPV 10.6 8.8 - 12.5 fL 03/24/2023 8:21 PM EDT [facility] Neut Percent 58.4 % 03/24/2023 8:21 PM EDT [facility] Comment:Neutrophils equals s egs plus bands Imm Gran% 1.4 % 03/24/2023 8:21 PM EDT [facility] Comment:Automated count of m etamyelocytes, myelocytes and promyelocytes. IG >1% represents a left shift and provides an early indication of an infection or inflammatory process. Lymph Percent 28.7 % 03/24/2023 8:21 PM EDT [facility] [place] Percent 9.0 % 03/24/2023 8:21 PM EDT [facility] Eos Percent 1.9 % 03/24/2023 8:21 PM EDT [facility] Baso Percent 0.6 % 03/24/2023 8:21 PM EDT [facility] Neut # 7.1(H) 1.6 - 6.1 x10(3)/[facility] 03/24/2023 8:21 PM EDT [facility] Comment:Neutrophils equals s egs plus bands IMMGRAN# 0.2(H) 0.0 - 0.1 x10(3)/[facility] 03/24/2023 8:21 PM EDT [facility], [facility] Comment:Automated count of m etamyelocytes, myelocytes and promyelocytes. An absolute IG <0.1 is reported as 0.0. Lymph # 3.5 1.2 - 3.9 x10(3)/[facility] 03/24/2023 8:21 PM EDT [facility], [facility] [place] # 1.1(H) 0.3 - 0.9 x10(3)/[facility] 03/24/2023 8:21 PM EDT [facility], [facility] Eos# 0.2 0.0 - 0.5 x10(3)/[facility] 03/24/2023 8:21 PM EDT [facility] Baso # 0.1 0.0 - 0.1 x10(3)/[facility] 03/24/2023 8:21 PM EDT [facility] Blood VENOUS BLOOD / Unknown Venipuncture / Unknown 03/24/2023 12:35 PM EDT 03/24/2023 12:35 PM EDT Jessica Cortes MD HEMATOLOGY ORDERABLES Raudel al Result [facility] [address] [facility] , [place] [address] * (ABNORMAL) C-REACTIVE PROTEIN (03/24/2023 12:35 PM EDT) CRP 24.33(H) <=5.00 mg/L 03/24/2023 9:00 PM EDT [facility] Blood VENOUS BLOOD / Unknown Venipuncture / Unknown 03/24/2023 12:35 PM EDT 03/24/2023 12:35 PM EDT Jessica Cortes MD CHEMISTRY ORDERABLES Siobhan l Result [facility] [address] [facility] [address], [place] [address] * SEDIMENTATION RATE AUTOMATED (03/24/2023 12:35 PM EDT) [facility] Sed Rate 30 0 - 30 mm/hr 03/24/2023 8:21 PM EDT [facility] Blood VENOUS BLOOD / Unknown Venipuncture / Unknown 03/24/2023 12:35 PM EDT 03/24/2023 12:35 PM EDT Jessica Cortes MD HEMATOLOGY ORDERABLES Fin al Result Performing Organization Address [facility]/ZIP Co de Phone Number [facility] 1 [place] [address] * QUANTIFERON TB GOLD (03/24/2023 12:35 PM EDT) [facility] Quantiferon-TB Gold in Tube Negative Negative 03/25/2023 5:50 PM EDT [facility] Quantiferon Mitogen minus NIL 9.9524 IU/mL 03/25/2023 5:50 PM EDT [facility] Quantiferon NIL 0.0476 IU/mL 5:50 PM EDT [facility] QUANTIFERON TB1 MINUS NIL 0.0186 IU/mL 03/25/2023 5:50 PM EDT [facility] QUANTIFERON TB2 MINUS NIL 0.0335 IU/mL 03/25/2023 5:50 PM EDT [facility] Blood VENOUS BLOOD / Unknown Venipuncture / Unknown 03/24/2023 12:35 PM EDT 03/24/2023 12:35 PM EDT Narrative [facility] - 03/25/2023 5:50 PM EDT Interferon gamma release is measured [...] MD IMMUNOLOGY ORDERABLES Fin al Result [facility] [address] [facility] [place] [address] [address] [place] [address] documented in this encounter Visit Diagnoses Diagnosis Tuberculosis screening Screening examination for pulmonary tuberculosis Therapeutic drug monitoring Encounter for therapeutic drug monitoring Lightheadedness Dizziness and giddiness Memory loss Annual physical exam Routine general medical examination at a health care facility documented in this encounter Care Teams It Solutions Architect Relationship Specialty Start Date End Date Julisa Kerr MD [address] [place] [address] PCP - General 02/22/11 Jessica Cortes MD [address] [place] [address] Internal Medicine-Rheumatology 04/26/16 Susana Garay MD [address] [place] [address] [place] [address] Medical Oncologist Internal Medicine-Hematology and Oncology 10/14/22 documented as of this encounter
--- OUTSIDE RECORDS SUMMARY | 2024-08-22 21:42 | XMS_ITS | Encounter Summary ---
Author Organization [place] [address] Care Team Providers Care Glass Finisher Name Role Phone Julisa Kerr MD Primary Care Provider [phone] Jessica Cortes MD Unavailable [phone] Susana Garay MD Unavailable [phone] Reason for Visit * Reason Comments Medication Refill Encounter Details Date Type Department Care Team (Late st Contact Info) Description 02/10/2023 Refill [facility]AT[facility]PT[facility] [address] [place] [address] Jessica Cortes MD [address] [address] Medication Refill Social History Tobacco Use Types [...] TABLET BY MOUTH EVERY DAY 30 Tablet 02/10/2023 03/24/2023 documented in this encounter Miscellaneous Notes * Telephone Encounter - Alivia España MA - 02/10/2023 10:00 AM EDT Last Office Visit 12/09/2022 Next Office Visit 03/17/2023 Labs done on 01/20/2023 Chart reviewed: Arava 10 mg daily documented in this encounter Plan of Treatment Upcoming Encounters Date Type Department Care Team (Late st Contact Info) Description 08/31/2024 8:30 AM EST Appointment [place] [address] [place] [address] 10/25/2024 10:45 AM EST Office Visit [facility] [address] [place] [address] Jessica Cortes MD [address] [facility] Building [address] [place] [address] 01/25/2025 9:00 AM EDT Appointment [address] [place] [address] 05/09/2025 11:00 AM EDT Appointment [address] [place] [address] 05/09/2025 11:15 AM EDT Appointment [address] [place] [address] Susana Garay MD [address] [place] [address] documented as of this encounter Goals Goal [...] TAKE 1 TABLET BY MOUTH EVERY DAY 01/06/2023 02/10/2023 documented as of this encounter Care Teams Glass Finisher Relationship Specialty Start Date End Date Julisa Kerr MD [address] [place] [address] PCP - General 02/22/11 Jessica Cortes MD [address] [facility] Building [address] [place] [address] Internal Medicine-Rheumatology 04/26/16 Susana Garay MD 1 [place] [address] Medical Oncologist Internal Medicine-Hematology and Oncology 10/14/22 documented as of this encounter
--- OUTSIDE RECORDS SUMMARY | 2024-08-22 21:42 | XMS_ITS | Encounter Summary ---
Author Organization [place] [address] Care Team Providers Care Ribbon Hanking Machine Operator Name Role Phone Julisa Kerr MD Primary Care Provider [phone] Jessica Cortes MD Unavailable [phone] Susana Garay MD Unavailable [phone] Encounter Details Date Type Department Care Team (Latest Contact Info) Description 03/24/2023 Travel Social History Tobacco Use Types Packs/Day [...] Info) Description 08/31/2024 8:30 AM EST Appointment [address] [place] [address] 10/25/2024 10:45 AM EST Office Visit [facility] [address] [facility] [address] [place] [address] Jessica Cortes MD [address] [place] [address] Building [address] [place] [address] 01/25/2025 9:00 AM EDT [address]ment [address] [address] 05/09/2025 11:00 AM EDT [address]ment [address] [place] [address] 05/09/2025 11:15 AM EDT Appointment [address] [place] [address] Susana Graay MD [address] [place] [address] [place] [address] documented as of this encounter Goals Goal Patient Goal Type Associated Problems Recent Progress Patient-Stated? Author Maintain a healthy diet, exercise regularly and maintain an ideal body weight General Porsche Ashley, RN documented as of this encounter Visit Diagnoses Not on filedocumented in this encounter Care Teams Ribbon Hanking Machine Operator Relationship Specialty Start Date End Date Julisa Kerr MD [address] [place] [address] PCP - General 02/22/11 Jessica Cortes MD [address] [place] [address] Internal Medicine-Rheumatology 04/26/16 Susana Garay MD 1 [facility] [place] [address] Medical Oncologist Internal Medicine-Hematology and Oncology 10/14/22 documented as of this encounter
--- OUTSIDE RECORDS SUMMARY | 2024-08-22 21:42 | XMS_ITS | Encounter Summary ---
Author Organization [place] [address] Care Team Providers Care Magnetic Tape Winder Name Role Phone Julisa Kerr MD Primary Care Provider [phone] Jessica Cortes MD Unavailable [phone] Susana Garay MD Unavailable [phone] Reason for Visit * Reason Onset Date Comments Medication Refill 04/20/2023 Encounter Details Date Type Department Care Team (Late st Contact Info) Description 04/20/2023 Refill [facility] RHEUMATOLOGY [facility]PT[facility] [address] [place] [address] Jessica Cortes MD [address] [address] Medication Refill Social History Tobacco Use Types [...] mouth 2 times daily. 60 Tablet 1 04/21/2023 06/10/2023 documented in this encounter Miscellaneous Notes * Telephone Encounter - Alivia España MA - 04/21/2023 10:05 AM EDT Last Office Visit 03/24/2023 Next Office Visit 06/27/2023 Labs done on 03/24/2023 Chart reviewed: Current therapy: MTX 15 mg weekly, Arava 10 mg daily, Simponi 100 mg sq q month started around 02/10/22, folic acid 1 mg daily, prednisone 5 mg daily Diclofenac 75 mg BID documented in this encounter Plan of Treatment Upcoming Encounters Date Type Department Care Team (Late st Contact Info) Description 08/31/2024 8:30 AM EST Appointment [address] [place] [address] 10/25/2024 10:45 AM EST Office Visit [facility] [address] [place] [address] Jessica Cortes MD [address] [place] [address] 01/25/2025 9:00 AM EDT Appointment [address] [place] [address] 05/09/2025 11:00 AM EDT Appointment [address] [place] [address] 05/09/2025 11:15 AM EDT Appointment [address] [place] [address] Susana Garay MD [address] [place] [address] documented as of this encounter Goals Goal [...] TABLET BY MOUTH TWICE A DAY Reorder 11/04/2022 04/20/2023 documented as of this encounter Care Teams Magnetic Tape Winder Relationship Specialty Start Date End Date Julisa Kerr MD 100 [place] [address] PCP - General 02/22/11 Jessica Cortes MD [address] [address] Internal Medicine-Rheumatology 04/26/16 Susana Garay MD [address] [place] [address] Medical Oncologist Internal Medicine-Hematology and Oncology 10/14/22 documented as of this encounter
--- OUTSIDE RECORDS SUMMARY | 2024-08-22 21:42 | XMS_ITS | Encounter Summary ---
Author Organization [place] [address] Care Team Providers Care School Crossing Guard Name Role Phone Julisa Kerr MD Primary Care Provider [phone] Jessica Cortes MD Unavailable [phone] Susana Garay MD Unavailable [phone] Reason for Visit * Reason Comments Pharmacy Rheumatology Management Encounter Details Date Type Department Care Team (Latest Contact Info) Description 01/02/2023 Specialty Pharmacy [facility] [address] [id number] Elio Bond CPhT Pharmacy Rheumatology Management Social History Tobacco Use Types Packs/Day [...] suspected to have Coronavirus/COVID-19? No / Unsure 12/17/2022 11:35 AM EDT documented as of this encounter [...] documented in this encounter Progress Notes * Elio Bond CPhT - 01/02/2023 10:42 AM EDT [facility] Refill Request Prescription for Simponi is out of refills. Will send a request to the provider and contact patientto coordinate refill once response is received. * Angel Maurice RPH - 01/02/2023 10:42 AM EDT [facility] Refill authorization received. Will contact patient to coordinate refill. * Beena Quinteros CPhT - 01/02/2023 10:42 AM EDT Specialty Pharmacy Refill Coordination Note Yuliet Trevino is a 52 y.o. female contacted today regarding refills of her Simponi. No answer, unable to leave voicemail. * Che Wells RPH - 01/02/2023 10:42 AM EDT Specialty Pharmacy Refill Coordination Note Yuliet Trevino is a 52 y.o. female contacted today regarding refills of her Simponi. Sent Likeeds message. * Angela Fournier CPhT - 01/02/2023 10:42 AM EDT Specialty Pharmacy Refill Coordination Note Yuliet Trevino is a 52 y.o. female contacted today regarding refills of her Simponi. Medication to be delivered by [facility] on 01/10. Sent Likeeds message. * Angel Maurice RPH - 01/02/2023 10:42 AM EDT [facility] - Care Plan and Refill Review Refill questions and refill history verified. Last assessment 02/15/22. No reassessment needed at this time. Angel Maurice RPH Specialty Pharmacist documented in this encounter Plan of Treatment Upcoming Encounters Date Type Department Care Team (Late st Contact Info) Description 08/31/2024 8:30 AM EST Appointment [facility] [address] [place] [address] 10/25/2024 10:45 AM EST Office Visit [facility] R[facility] [address] [facility] [address] [place] [address] Jessica Cortes MD [address] [address] 01/25/2025 9:00 AM EDT Appointment [address] [place] [address] 05/09/2025 11:00 AM EDT Appointment [address] [place] [address] 05/09/2025 11:15 AM EDT Appointment [address] [place] [address] Susana Garay MD 1 [place] [address] documented as of this encounter Goals Goal Patient Goal Type Associated Problems Recent Progress Patient-Stated? Author Maintain a healthy diet, exercise regularly and maintain an ideal body weight General Porsche Ashley, RN documented as of this encounter Visit Diagnoses Not on filedocumented in this encounter Care Teams School Crossing Guard Relationship Specialty Start Date End Date Julisa Kerr MD [address] [place] [address] PCP - General 02/22/11 Jessica Cortes MD [address] [address] Internal Medicine-Rheumatology 04/26/16 Susana Garay MD [address] [place] [address] Medical Oncologist Internal Medicine-Hematology and Oncology 10/14/22 documented as of this encounter
--- OUTSIDE RECORDS SUMMARY | 2024-08-22 21:42 | XMS_ITS | Encounter Summary ---
Author [place] [address] Care Team Providers Care Orthotics Technician Name Role Phone Julisa Kerr MD Primary Care Provider [phone] Jessica Cortes MD Unavailable [phone] Susana Garay MD Unavailable [phone] Encounter Details Date Type Department Care Team (Latest Contact Info) Description 01/20/2023 1:35 PM EDT - 01/20/2023 11:59 PM EDT Hospital Encounter [facility] [address] [place] [address] Rheumatoid arthritis involving multiple sites with positive rheumatoid factor (HCC); Immunocompromised patient (HCC); Therapeutic drug monitoring Discharge Disposition: Home [...] ns:Vitamin B 12 deficiency INJECT 1ML INTO THE MUSCLE EVERY MONTH 1 mL 11 02/12/2022 02/17/2023 ELIQUIS 5 mg Oral Tablet TAKE 1 TABLET BY MOUTH TWICE A DAY 90 Tablet 2 11/25/2022 05/14/2023 leflunomide (ARAVA) 10 mg Oral TabletIndications :Rheumatoid arthritis involving multiple sites with positive rheumatoid factor (HCC) TAKE 1 TABLET BY MOUTH EVERY DAY 30 Tablet 01/06/2023 02/10/2023 documented as of this encounter Discharge Disposition Disposition Code Departure Means Destination Home or Self Care documented in this encounter Plan of Treatment Upcoming Encounters Date Type Department Care Team (Late st Contact Info) Description 08/31/2024 8:30 AM EST Appointment [facility] [place] [address] [address] [place] [address] 10/25/2024 10:45 AM EST Office Visit [facility] [address] [place] [address] Jessica Cortes MD [address] [facility] Building [address] [place] [address] 01/25/2025 9:00 AM EDT Appointment [address] [address] [place] [address] 05/09/2025 11:00 AM EDT Appointment [address] [address] [place] [address] 05/09/2025 11:15 AM EDT Appointment [address] [address] [place] [address] Susana Garay MD [address] [place] [address] documented as of this encounter Goals Goal Patient Goal Type Associated Problems Recent Progress Patient-Stated? Author Maintain a healthy diet, exercise regularly and maintain an ideal body weight General Porsche Ashley RN documented as of this encounter Procedures Procedure Name Priority Date/Time Associated Diagnosis Comments SEDIMENTATION RATE AUTOMATED Routine 01/20/2023 1:36 PM EDT Rheumatoid arthritis involving multiple sites with positive rheumatoid factor (HCC) Immunocompromised patient (HCC) Therapeutic drug monitoring CBC WITH DIFF Routine 01/20/2023 1:36 PM EDT Rheumatoid arthritis involving multiple sites with positive rheumatoid factor (HCC) Immunocompromised patient (HCC) Therapeutic drug monitoring C-REACTIVE PROTEIN Routine 01/20/2023 1: 36 PM EDT Rheumatoid arthritis involving multiple sites with positive rheumatoid factor (HCC) Immunocompromised patient (HCC) Therapeutic drug monitoring COMPREHENSIVE METABOLIC PANEL Routine 01/20/2023 1:36 PM EDT Rheumatoid arthritis involving multiple sites with positive rheumatoid factor (HCC) Immunocompromised patient (HCC) Therapeutic drug monitoring documented in this encounter Results * (ABNORMAL) SEDIMENTATION RATE AUTOMATED (01/20/2023 1:36 PM EDT) Sed Rate 46(H) 0 - 30 mm/hr 01/20/2023 7:55 PM EDT [facility] Blood VENOUS BLOOD / Unknown Venipuncture / Unknown 01/20/2023 1:36 PM EDT 01/20/2023 1:36 PM EDT us Jessica Cortes MD HEMATOLOGY ORDERABLES Fin al Result [facility] 1 [facility] , [place] [address] * (ABNORMAL) CBC WITH DIFF (01/20/2023 1:36 PM EDT) Pathologist [facility] WBC 14.1(H) 3.7 - 10.3 x10(3)/mcL 01/20/2023 7:55 PM EDT [facility] RBC 4.73 3.90 - 5.20 x10(6)/mcL 01/20/2023 7:55 PM EDT [facility] Hgb 12.7 11.2 - 15.7 g/dL 01/20/2023 7:55 PM EDT [facility] Hct 42.2 34.0 - 45.0 % 01/20/2023 7:55 PM EDT [facility] MCV 89.2 80.0 - 100.0 fL 01/20/2023 7:55 PM EDT [facility] MCH 26.8 26.0 - 34.0 pg 01/20/2023 7:55 PM EDT [facility] MCHC 30.1(L) 30.7 - 35.5 g/dL 01/20/2023 7:55 PM EDT [facility] RDW 16.8(H) <=14.9 % 01/20/2023 7:55 PM EDT [facility] Platelet 267 155 - 369 x10(3)/mcL 01/20/2023 7:55 PM EDT [facility] MPV 11.0 8.8 - 12.5 fL 01/20/2023 7:55 PM EDT [facility] Neut Percent 81.8 % 01/20/2023 7:55 PM EDT [facility] Comment:Neutrophils equals s egs plus bands Imm Gran% 1.3 % 01/20/2023 7:55 PM EDT [facility] Comment:Automated count of m etamyelocytes, myelocytes and promyelocytes. IG >1% represents a left shift and provides an early indication of an infection or inflammatory process. Lymph Percent 7.3 % 01/20/2023 7:55 PM EDT [facility] [place] Percent 8.9 % 01/20/2023 7:55 PM EDT [facility] Eos Percent 0.1 % 01/20/2023 7:55 PM EDT [facility] Baso Percent 0.6 % 01/20/2023 7:55 PM EDT [facility] Neut # 11.5(H) 1.6 - 6.1 x10(3)/mcL 01/20/2023 7:55 PM EDT [facility] Comment:Neutrophils equals s egs plus bands IMMGRAN# 0.2(H) 0.0 - 0.1 x10(3)/mcL 01/20/2023 7:55 PM EDT [facility] Comment:Automated count of m etamyelocytes, myelocytes and promyelocytes. An absolute IG <0.1 is reported as 0.0. Lymph # 1.0(L) 1.2 - 3.9 x10(3)/mcL 01/20/2023 7:55 PM EDT [facility] [place] # 1.3(H) 0.3 - 0.9 x10(3)/mcL 01/20/2023 7:55 PM EDT [facility] Eos# 0.0 0.0 - 0.5 x10(3)/mcL 01/20/2023 7:55 PM EDT [facility] Baso # 0.1 0.0 - 0.1 x10(3)/[facility] 01/20/2023 7:55 PM EDT [facility] Blood VENOUS BLOOD / Unknown Venipuncture / Unknown 01/20/2023 1:36 PM EDT 01/20/2023 1:36 PM EDT us Jessica Cortes MD HEMATOLOGY ORDERABLES Fin al Result [facility] 1 [facility] , [place] [address] * (ABNORMAL) COMPREHENSIVE METABOLIC PANEL (01/20/2023 1:36 PM EDT) Sodium 140 136 - 145 mmol/L 01/20/2023 8:08 PM EDT [facility] Potassium 4.2 3.5 - 5.0 mmol/L 01/20/2023 8:08 PM EDT [facility] Chloride 102 98 - 107 mmol/L 01/20/2023 8:08 PM EDT [facility] Total CO2 27 22 - 29 mmol/L 01/20/2023 8:08 PM EDT [facility] Anion Gap 11 7 - 16 mmol/L 01/20/2023 8:08 PM EDT [facility] Calcium 9.3 8.6 - 10.4 mg/dL 01/20/2023 8:08 PM EDT [facility] Glucose Lvl 111(H) 74 - 100 mg/dL 01/20/2023 8:08 PM EDT [facility] BUN 11 6 - 20 mg/dL 01/20/2023 8:08 PM EDT [facility] Creatinine 0.85 0.51 - 1.30 mg/dL 01/20/2023 8:08 PM EDT [facility] Albumin 4.1 3.5 - 5.2 gm/dL 01/20/2023 8:08 PM EDT [facility] Total Protein 7.1 6.4 - 8.3 gm/dL 01/20/2023 8:08 PM EDT [facility] Bili Total 0.3 0.1 - 1.3 mg/dL 01/20/2023 8:08 PM EDT [facility] ALT 14 <=41 U/L 01/20/2023 8:08 PM EDT [facility] AST 16 <=40 U/L 01/20/2023 8:08 PM EDT [facility] Alk Phos 74 36 - 123 U/L 01/20/2023 8:08 PM EDT [facility], [facility] eGFR (CKD-EPIcr 2020) 82 >=60 mL/min/1.7 3 m2 01/20/2023 8:08 PM EDT [facility] Comment:Estimated GFR was ca lculated using the CKD-EPIcr (2020) equation refit without race. The equation is recommended by the National Kidney Foundation - [place] [employer] of Nephrology Task Force. Blood VENOUS BLOOD / Unknown Venipuncture / Unknown 01/20/2023 1:36 PM EDT 01/20/2023 1:36 PM EDT Jessica Cortes MD CHEMISTRY ORDERABLES Siobhan l Result Performing Organization Address [facility] Co de Phone Number [facility] [address] , [address] [place] [phone] [facility] [address] [place] [address] * (ABNORMAL) C-REACTIVE PROTEIN (01/20/2023 1:36 PM EDT) [facility] CRP 63.65(H) <=5.00 mg/L 01/20/2023 8:08 PM EDT [facility], [facility] Blood VENOUS BLOOD / Unknown Venipuncture / Unknown 01/20/2023 1:36 PM EDT 01/20/2023 1:36 PM EDT Jessica Cortes MD CHEMISTRY ORDERABLES Siobhan l Result Performing Organization Address City/[facility]/ZIP Co de Phone Number [facility] [address] , [address] [place] [phone] documented in this encounter Visit Diagnoses Diagnosis Rheumatoid arthritis involving multiple sites with positive rheumatoid factor (HCC) Immunocompromised patient (HCC) Unspecified immunity deficiency Therapeutic drug monitoring Encounter for therapeutic drug monitoring documented in this encounter Care Teams Orthotics Technician Relationship Specialty Start Date End Date Julisa Kerr MD [address] [place], [place] [id number] PCP - General 02/22/11 Jessica Cortes MD 651 [facility] 19 [place] [address] Internal Medicine-Rheumatology 04/26/16 Susana Garay MD [address] [place] [address] Medical Oncologist Internal Medicine-Hematology and Oncology 10/14/22 documented as of this encounter
--- OUTSIDE RECORDS SUMMARY | 2024-08-22 21:42 | XMS_ITS | Encounter Summary ---
Author Organization [place] [address] Care Team Providers Care Environmental Services Director Name Role Phone Julisa Kerr MD Primary Care Provider [phone] Jessica Cortes MD Unavailable [phone] Susana Garay MD Unavailable [phone] Reason for Visit * Reason Comments Medication Refill Encounter Details Date Type Department Care Team (Late st Contact Info) Description 01/02/2023 Refill [facility] Rhe[facility]ology [facility] [address] [address] Jessica Cortes MD [address] [address] Medication Refill Social History Tobacco [...] Author No 02/12/2022 2:17 PM EDT Albin Leyv MA documented as of this encounter Mental [...] the skin every 30 days. 1 mL 5 03/10/2023 2:54 PM EDT 01/02/2023 04/08/2023 documented in this encounter Miscellaneous Notes * Telephone Encounter - Shari Alegria MA - 01/02/2023 1:01 PM EDT Last Labs- 11/28/22 Last OV- 06/28/22 Next Ov- 03/17/23 Simponi 50 mg sq q month started around 02/10/22, documented in this encounter Plan of Treatment Upcoming Encounters Date Type Department Care Team (Late st Contact Info) Description 08/31/2024 8:30 AM EST Appointment [facility] Cancer [place] [address] [address] [place] [address] 10/25/2024 10:45 AM EST Office Visit [facility] [address] [place] [address] Jessica Cortes MD [address] [place] [address] 01/25/2025 9:00 AM EDT Appointment [address] [place] [address] 05/09/2025 11:00 AM EDT Appointment [address] [place] [address] 05/09/2025 11:15 AM EDT Appointment [address] [place] [address] Susana Garay MD [address] [place] [address] [place] [address] documented as of this encounter Goals Goal [...] under the skin every 30 days. Reorder 06/28/2022 01/02/2023 documented as of this encounter Care Teams Environmental Services Director Relationship Specialty Start Date End Date Julisa Kerr MD [address] [place] [id number] PCP - General 02/22/11 Jessica Cortes MD 651 [facility] 19 [place] [address] Internal Medicine-Rheumatology 04/26/16 Susana Garay MD 1 [place] [address] Medical Oncologist Internal Medicine-Hematology and Oncology 10/14/22 documented as of this encounter
--- OUTSIDE RECORDS SUMMARY | 2024-08-22 21:42 | XMS_ITS | Encounter Summary ---
Author Organization [place] [address] Care Team Providers Care Drug Counselor Name Role Phone Julisa Kerr MD Primary Care Provider [phone] Jessica Cortes MD Unavailable [phone] Susana Garay MD Unavailable [phone] Reason for Visit * Reason Comments Medication Refill Encounter Details Date Type Department Care Team (Late st Contact Info) Description 01/06/2023 Refill [facility] [address] [place] [address] Jessica Cortes MD [address] [address] Medication Refill Social History Tobacco Use Types [...] EVERY DAY 30 Tablet 01/06/2023 02/10/2023 documented in this encounter Miscellaneous Notes * Telephone Encounter - Estela Chambers MA - 01/06/2023 8:39 AM EDT Last OV 12/09/22 Last BW 11/28/22 Next OV 03/17/23 Chart reviewed. documented in this encounter Plan of Treatment Upcoming Encounters Date Type Department Care Team (Late st Contact Info) Description 08/31/2024 8:30 AM EST Appointment [address] [address] [place] [address] 10/25/2024 10:45 AM EST Office Visit [facility] [address] [place] [address] Jessica Cortes MD [address] [facility] Building [address] [place] [address] 01/25/2025 9:00 AM EDT Appointment [address] [address] [place] [address] 05/09/2025 11:00 AM EDT [address]ointment [address] [place] [address] 05/09/2025 11:15 AM EDT Appointment [address] [address] [place] [address] Susana Garay MD [address] [place], [place] [id number] documented as of this encounter Goals Goal [...] TAKE 1 TABLET BY MOUTH EVERY DAY 12/05/2022 01/06/2023 documented as of this encounter Care Teams Drug Counselor Relationship Specialty Start Date End Date Julisa Kerr MD 100 [place], [place] [id number] PCP - General 02/22/11 Jessica Cortes MD 651 [facility] Building [address] [place] [address] Internal Medicine-Rheumatology 04/26/16 Susana Garay MD [address] [place] [address] Medical Oncologist Internal Medicine-Hematology and Oncology 10/14/22 documented as of this encounter
--- OUTSIDE RECORDS SUMMARY | 2024-08-22 21:42 | XMS_ITS | Encounter Summary ---
Author Organization [place] [address] Care Team Providers Care Barrel Loader And Cleaner Name Role Phone Julisa Kerr MD Primary Care Provider [phone] Jessica Cortes MD Unavailable [phone] Susana Garay MD Unavailable [phone] Reason for Visit * Reason Comments Pharmacy Rheumatology Management Simponi Encounter Details Date Type Department Care Team (Latest Contact Info) Description 04/02/2023 Specialty Pharmacy [facility] [address] [phone] Angela Fournier CPhT Pharmacy Rheumatology Management (Simponi) [...] Progress Notes * Angela Fournier CPhT - 04/02/2023 10:00 AM EDT Specialty Pharmacy Refill Coordination Note Yuliet Trevino is a 52 y.o. female contacted today regarding refills of Simponi. Medication to be delivered by [facility] on 04/09. Spoke with patient. * Angel Maurice RPH - 04/02/2023 10:00 AM EDT [facility] - Care Plan and Refill Review Patient is not clinically followed. Angel Maurice RPH Specialty Pharmacist documented in this encounter Plan of Treatment Upcoming Encounters Date Type Department Care Team ([facility] Contact Info) Description 08/31/2024 8:[address] [facility] Cancer [address] [address] [place] [address] 10/25/2024 10:45 AM EST Office Visit [facility] 651 [facility] [address] [place] [address] Jessica Cortes MD 651 [facility] 19 [place] [address] 01/25/2025 9:00 AM EDT Appointment [address] [place] [address] 05/09/2025 11:00 AM EDT Appointment [address] [place] [address] 05/09/2025 11:15 AM EDT Appointment [address] [place] [address] Susana Garay MD [address] [facility] [place] [address] documented as of this encounter Goals Goal Patient Goal Type Associated Problems Recent Progress Patient-Stated? 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, RN documented as of this encounter Visit Diagnoses Not on filedocumented in this encounter Care Teams Barrel Loader And Cleaner Relationship Specialty Start Date End Date Julisa Kerr MD 100 [place] [address] PCP - General 02/22/11 Jessica Cortes MD 651 [facility] 19 [place] [address] Internal Medicine-Rheumatology 04/26/16 Susana Garay MD [address] [facility] [place] [address] Medical Oncologist Internal Medicine-Hematology and Oncology 10/14/22 documented as of this encounter
--- OUTSIDE RECORDS SUMMARY | 2024-08-22 21:42 | XMS_ITS | Encounter Summary ---
Author Organization [place] [address] Care Team Providers Care Efficiency Miner Name Role Phone Julisa Kerr MD Primary Care Provider [phone] Jessica Cortes MD Unavailable [phone] Susana Garay MD Unavailable [phone] Reason for Visit * Reason Comments Medication Refill Encounter Details Date Type Department Care Team (Late st Contact Info) Description 04/21/2023 Refill [facility] RHEUMATOLOGY NPTFTT [address] [place] [address] Jessica Cortes MD [address] [place] [address] Medication Refill Social History Tobacco Use Types [...] EVERY DAY 30 Tablet 04/21/2023 05/19/2023 documented in this encounter Miscellaneous Notes * Telephone Encounter - Arie Florian MA - 04/21/2023 9:49 AM EDT Last office visit: 03/24/23 Labs: 03/24/23 Next office visit: 06/27/23 Reviewed chart. - Arava 10 mg daily - Your labs were normal except for elevation of CRP, one of the inflammatory markers. Dr. Cortes - Your TB test is normal. Dr. Cortes documented in this encounter Plan of Treatment Upcoming Encounters Date Type Department Care Team (Late st Contact Info) Description 08/31/2024 8:30 AM EST Appointment [facility] Cancer [place] [address] [address] [place] [address] 10/25/2024 10:45 AM EST Office Visit [facility] [address] [place] [address] Jessica Cortes MD [address] [place] [address] 01/25/2025 9:00 AM EDT Appointment [address] [place] [address] 05/09/2025 11:00 AM EDT Appointment [address] [place] [address] 05/09/2025 11:15 AM EDT Appointment [address] [place] [address] Susana Garay MD [address] [place] [address] documented as of this encounter Goals Goal [...] TAKE 1 TABLET BY MOUTH EVERY DAY 03/24/2023 04/21/2023 documented as of this encounter Care Teams Efficiency Miner Relationship Specialty Start Date End Date Julisa Kerr MD 100 [place] [address] PCP - General 02/22/11 Jessica Cortes MD 651 [facility] 19 [place] [address] Internal Medicine-Rheumatology 04/26/16 Susana Garay MD [address] [place] [address] Medical Oncologist Internal Medicine-Hematology and Oncology 10/14/22 documented as of this encounter
--- OUTSIDE RECORDS SUMMARY | 2024-08-22 21:42 | XMS_ITS | Encounter Summary ---
Author Organization [place] [address] Care Team Providers Care Fish Flipper Name Role Phone Julisa Kerr MD Primary Care Provider [phone] Jessica Cortes MD Unavailable [phone] Susana Garay MD Unavailable [phone] Reason for Visit * Reason Comments Medication Refill Encounter Details Date Type Department Care Team (Late st Contact Info) Description 03/12/2023 Refill [facility]P RHEUMATOLOGY NPTFTT [address] [place] [address] Jessica Cortes MD 651 [place] [address] Medication Refill Social History Tobacco Use Types [...] EVERY DAY 30 Tablet 03/24/2023 04/21/2023 documented in this encounter Miscellaneous Notes * Telephone Encounter - Ana An RMA - 03/20/2023 8:15 AM EDT spoke with patient; follow up scheduled for 03/24/23 Patient stated she will go to get labs completed as soon as possible * Telephone Encounter - Ana An RMA - 03/12/2023 8:29 AM EDT last visit: 12/09/22 last labs:01/20/23 next visit: not upcoming appointment scheduled Chart reviewed. Current therapy: MTX 15 mg weekly, Arava 10 mg daily, Simponi 100 mg sq q month started around 02/10/22, Plaquenil 200 mg BID, folic acid 1 mg daily, prednisone 5 mg daily patient overdue for maintenance labs as well as needing to schedule follow up; patient contacted documented in this encounter Plan of Treatment Upcoming Encounters Date Type Department Care Team (Late st Contact Info) Description 08/31/2024 8:30 AM EST Appointment [address] [place] [address] 10/25/2024 10:45 AM EST Office Visit [facility] [address] [place] [address] Jessica Cortes MD [address] [place] [address] 01/25/2025 9:00 AM EDT [address]ointment [address] [place] [address] 05/09/2025 11:00 AM EDT Appointment [address] [address] [address] [place] [address] 05/09/2025 11:15 AM EDT Appointment [address] [place] [address] Susana Garay MD [address] [place] [address] [place] [address] documented as of this encounter Goals Goal [...] TAKE 1 TABLET BY MOUTH EVERY DAY 02/10/2023 03/24/2023 documented as of this encounter Care Teams Fish Flipper Relationship Specialty Start Date End Date Julisa Kerr MD 100 [place], [place] [phone] PCP - General 02/22/11 Jessica Cortes MD [address] [place] [address] Internal Medicine-Rheumatology 04/26/16 Susana Garay MD [address] [place] [address] Medical Oncologist Internal Medicine-Hematology and Oncology 10/14/22 documented as of this encounter
--- OUTSIDE RECORDS SUMMARY | 2024-08-22 21:42 | XMS_ITS | Encounter Summary ---
Author Organization [facility] [place] [address] Care Team Providers Care Adhesive Primer Name Role Phone Julisa Kerr MD Primary Care Provider [phone] Jessica Cortes MD Unavailable [phone] Susana Garay MD Unavailable [phone] Encounter Details Date Type Department Care Team (Latest Contact Info) Description 03/22/2023 Travel Social History Tobacco Use Types Packs/Day [...] suspected to have Coronavirus/COVID-19? No / Unsure 03/22/2023 10:24 PM EDT documented as of this encounter [...] Description 08/31/2024 8:30 AM EST Appointment [address] [place] [address] 10/25/2024 10:45 AM EST Office Visit [facility] 651 [facility] [address] [place] [address] Jessica Cortes MD [address] [place] [address] Building 19 [place] [address] 01/25/2025 9:00 AM EDT [address]ment [address] [address] 05/09/2025 11:00 AM EDT [address]ment [address] [address] 05/09/2025 11:15 AM EDT Appointment [address] [place] [address] Susana Garay MD [address] [place] [address] [place] [address] documented as of this encounter Goals Goal Patient Goal Type Associated Problems Recent Progress Patient-Stated? Author Maintain a healthy diet, exercise regularly and maintain an ideal body weight General Porsche [place], RN documented as of this encounter Visit Diagnoses Not on filedocumented in this encounter Care Teams Adhesive Primer Relationship Specialty Start Date End Date Julisa Kerr MD 100 [place] [address] PCP - General 02/22/11 Jessica Cortes MD [address] [place] [address] Internal Medicine-Rheumatology 04/26/16 Susana Garay MD 1 [facility] [address] Medical Oncologist Internal Medicine-Hematology and Oncology 10/14/22 documented as of this encounter
--- OUTSIDE RECORDS SUMMARY | 2024-08-22 21:42 | XMS_ITS | Encounter Summary ---
Author Organization [place] [address] Care Team Providers Care Medical Housekeeper Name Role Phone Julisa Kerr MD Primary Care Provider [phone] Jessica Cortes MD Unavailable [phone] Susana Garay MD Unavailable [phone] Reason for Referral * MRI/CAT Scan (Routine) - Closed Specialty Diagnoses / Procedures Referred By Contac t Referred To Contact Radiology Diagnoses Memory loss Procedures MRI BRAIN WO CONTRAST Thierno Toth MD [address] [place] [address] Phone: tel: fax: [place] [address] Phone: tel: fax: Referral ID Status Reason Start Date Expiration Date Visits Re quested Visits Authorized [id number] Closed 03/24/2023 03/23/2024 1 1 Reason for Visit * Reason Comments Dizziness Annual Exam Flank Pain Memory Loss Encounter Details Date Type Department Care Team (Late st Contact Info) Description 03/24/2023 10:45 AM EDT Office Visit [facility] [address] [place] [address] Thierno Toth MD [address] [place] [address] Annual physical exam (Primary Dx); Flank pain; Lightheadedness; Memory loss Social History Tobacco Use Types Packs/Day Years [...] Sign Reading Time Taken Comments Blood Pressure 137/90 03/24/2023 10:55 AM EDT Pulse - - Temperature - - Respiratory Rate - - Oxygen Saturation - - Inhaled Oxygen Concentration - - Weight 63 kg (139 lb) 03/24/2023 10:55 AM EDT Height 157.5 cm (5' 2 ) 03/24/2023 10:55 AM EDT Body Mass Index 25.42 03/24/2023 10:55 AM EDT documented in this encounter Functional [...] of Assessment Author No 02/12/2022 2:17 PM Albin Mcnamara MA * Because of a physical, mental or emotional condition, does this person have difficulty doing errands alone such as visiting a doctor's office or shopping? Answer Date of Assessment Author No 02/12/2022 2:17 PM Albin Mcnamara MA documented as of this encounter Mental Status * Because of a physical, mental or emotional condition, does this person have serious difficulty concentrating, remembering or making decisions? Answer Entry Date Author No 02/12/2022 2:17 PM Albin Mcnamara MA documented in this encounter Progress Notes * Thierno Toth MD - 03/24/2023 10:45 AM EDT Vitals: 03/24/23 1055 BP: 137/90 Weight: 139 lb (63 kg) Height: 5' 2 (1.575 m) SUBJECTIVE: Chief Complaint Patient presents with Dizziness Annual Exam Flank Pain Memory Loss Well Adult: Subjective Ms. Newsome is a 52 y.o. female here for an annual wellness visit. Diet: balanced Exercise: active Activities of Daily Living: Functional Level: Self-care ADL Limitations: none Social Interaction Screen: Do you have concerns about issues that may impact social interaction such as developmental or behavioral/mental health conditions? no Health Maintenance Due Topic Date Due Hepatitis B Vaccine (1 of 3 - 3-dose series) Never done COVID-19 Vaccine (1) Never done Zoster (1 of 2) Never done Breast Cancer Screening 2020 Annual Wellness Exam 02/12/2023 Health Maintenance Topic Date Due Hepatitis B Vaccine (1 of 3 - 3-dose series) Never done COVID-19 Vaccine (1) Never done Zoster (1 of 2) Never done Breast Cancer Screening 2020 Annual Wellness Exam 02/12/2023 Colon Cancer Screening 12/08/2023 DTaP/TDaP/Td (7 - Td or Tdap) 07/01/2032 Influenza Vaccine Completed Immunization History Administered Date(s) Administered Influenza Vaccine Quadrivalent 07/01/2017 Influenza Vaccine Quadrivalent PF 06/19/2018 Influenza Vaccine, Unspecified Formulation 06/19/2018, 07/16/2019 Influenza, Injectable, MDCK, PF, Quadrivalent 07/14/2019, 07/01/2022 PPD Test 05/13/2013, 07/21/2014, 09/18/2015, 03/10/2017, 05/26/2018 Pneumococcal Conjugate Vaccine 13 Valent 12/13/2016 Pneumococcal Polysaccharide 23 Valent 03/17/2017, 07/01/2022 Tdap 07/01/2022 Patient Active Problem List Diagnosis PRAVEEN (stress urinary incontinence, female) Raynaud's phenomenon Rheumatoid arthritis involving multiple sites with positive rheumatoid factor ([facility]LY [facility]) Osteopenia Immunocompromised patient (FORMERLY [facility]) Vitamin B 12 deficiency Positive BRET (antinuclear antibody) Neck pain Antiphospholipid syndrome (FORMERLY [facility]) Past Medical History: Diagnosis Date Antiphospholipid syndrome (FORM[facility]LY [facility]) Arthritis DVT (deep venous thrombosis) (FORMERLY [facility]) 06/08/2022 Right Past Surgical History: Procedure Laterality Date HYSTEROSCOPY IR 2 LEVEL TRANSFORAMINAL EPIDURAL INJ CERVICAL SPINE 06/2021 BARBIE AND BSO 09/29/2000 Allergies Allergen Reactions Orencia [Abatacept (With Maltose)] Swelling and Other (See Comments) Facial tingling/ numbness Enbrel [Etanercept] Itching Humira [Adalimumab] Itching Mobic [Meloxicam] Hives Xeljanz [Tofacitinib] Itching Current Outpatient Medications on File Prior to Visit Medication Sig Dispense Refill alendronate (FOSAMAX) 70 mg Oral Tablet Take 1 Tablet by mouth every 7 days. Take in AM with a glass of water and do not take anything else by mouth or lie down for the next 30 min. 4 Tablet 11 cyanocobalamin 1,000 mcg/mL Inj Solution INJECT 1ML INTO MUSCLE EVERY MONTH 1 mL 11 diclofenac (VOLTAREN) 75 mg Oral Tablet, Delayed Release (E.C.) TAKE 1 TABLET BY MOUTH TWICE A DAY 60 Tablet 1 ELIQUIS 5 mg Oral Tablet TAKE 1 TABLET BY MOUTH TWICE A DAY 90 Tablet 2 folic acid (FOLVITE) 1 mg Oral Tablet TAKE 1 TABLET BY MOUTH EVERY DAY 30 Tablet 11 golimumab (SIMPONI) 100 mg/mL SubQ Pen Injector Inject 1 pen under the skin every 30 days. 1 mL 5 leflunomide (ARAVA) 10 mg Oral Tablet TAKE 1 TABLET BY MOUTH EVERY DAY 30 Tablet 0 methotrexate sodium 25 mg/mL Inj Solution Subcutaneous (Inject under the skin) 0.8 mL once a week. 4 mL 1 PROAIR HFA 90 mcg/actuation Inhl HFA Aerosol Inhaler INHALE 2 PUFFS BY MOUTH EVERY 6 HOURS NEEDED FOR WHEEZE 8.5 Each 3 No current facility-administered medications on file [...] Father Arthritis Paternal Grandmother No results found. Results for orders placed or performed in visit on 03/24/23 SEP URINALYSIS POC Result Value Ref Range UA Color POC Yellow Color UA Appear POC Clear Clear UA Gluc POC Negative Negative mg/dL UA Bili POC Negative Negative UA Ketones POC Negative Negative mg/dL UA SG POC >=1.030 1.001 - 1.035 no units UA Blood POC Negative Negative UA pH POC 6.5 5.0 - 8.0 pH UA Protein POC Negative Negative mg/dL UA Urobilinogen POC 0.2 0.2, 1.0 UA Nitrite POC Negative Negative UA Leuk Est POC Small (A) Negative Patient Care Team: Julisa Kerr MD as PCP - General Jessica Cortes MD (Internal Medicine-Rheumatology) Susana Garay MD as Medical Oncologist (Internal Medicine-Hematology and Oncology) Lab Results Component Value Date WBC 14.1 (H) 01/20/2023 HGB 12.7 01/20/2023 HCT 42.2 01/20/2023 PLT 267 01/20/2023 CHOLESTEROL 163 11/11/2018 TRIG 107 11/11/2018 HDL 49 11/11/2018 LDLCALC 93 11/11/2018 ALT 14 01/20/2023 AST 16 01/20/2023 NA 140 01/20/2023 K 4.2 01/20/2023 CL 102 01/20/2023 CREATININE 0.85 01/20/2023 BUN 11 01/20/2023 CO2 27 01/20/2023 TSH 1.350 09/20/2015 GLUCOSE 83 11/23/2019 GLU 111 (H) 01/20/2023 HGBA1C 5.6 06/06/2022 TSHREFLEX 1.530 07/01/2017 Additional issues addressed today: Intermittent lightheaded spells over the past few months, passed out once while in the grocery store. Few minutes at a time. Not dizzy. No chest pain or heart palpitations. Dizziness The patient's pertinent negatives include no weakness. This is a new problem. The current episode started more than 1 month ago. The problem has been waxing and waning since onset. Associated symptoms include light-headedness. Pertinent negatives include no abdominal pain, chest pain, dizziness, fever, headaches, palpitations or shortness of breath. Episodes lasting a few minutes. Feels like she is about to pass out. Pt c/o flank pain and pressure with urination. Pt also notes memory loss x few months. Review of Systems Constitutional: Negative for fever. Eyes: Negative for visual disturbance. Respiratory: Negative for cough and shortness of breath. Cardiovascular: Negative for chest pain, palpitations and leg swelling. Gastrointestinal: Negative for abdominal pain, constipation and diarrhea. Genitourinary: Negative for difficulty urinating. Musculoskeletal: Negative for joint swelling. Skin: Negative for rash. Neurological: Positive for light-headedness. Negative for dizziness, tremors, weakness and headaches. OBJECTIVE: Physical Exam Vitals reviewed. [...] for this visit: Annual physical exam - LIPID SCREEN; Future Flank pain - URINE CULTURE (NO STAIN); Future - SEP URINALYSIS POC Lightheadedness - CBC WITH DIFF; Future - COMPREHENSIVE METABOLIC PANEL; Future Memory loss - VITAMIN B12/ FOLIC ACID; Future - TSH REFLEX; Future - SYPHILIS SCREEN WITH REFLEX RPR QUANT; Future - MRI BRAIN WO CONTRAST; Future documented in this encounter Miscellaneous Notes * Patient Instructions - Thierno Toth MD - 03/24/2023 10:45 AM EDT Neuropsychological Testing: Markos Micaela - [phone] Arie Bowling - [facility] Referral for Neuropsych testing [phone] Jabier Adams - [phone] documented in this encounter Plan of Treatment Upcoming Encounters Date Type Department Care Team (Late st Contact Info) Description 08/31/2024 8:30 AM EST Appointment [place] [address] [place] [address] 10/25/2024 10:45 AM EST Office Visit [facility] [address] [place] [id number] Jessica Cortes MD [address] [facility] [address] [place] [address] 01/25/2025 9:00 AM EDT Appointment [address] [place] [address] [place] [address] 05/09/2025 11:00 AM EDT Appointment [address] [place] [address] [place] [address] 05/09/2025 11:15 AM EDT Appointment [place] [address] [place] [address] Susana Garay MD [address] [place] [address] [place] [address] documented as of this encounter Goals Goal Patient Goal Type Associated Problems Recent Progress Patient-Stated? 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 RN documented as of this encounter Procedures Procedure Name Priority Date/Time Associated Diagnosis Comments URINE CULTURE (NO STAIN) Routine 03/24/2023 11:28 AM EDT Flank pain SEP URINALYSIS POC Routine 03/24/2023 11 :06 AM EDT Flank pain documented in this encounter Results * MRI [...] ??05/30/2023 10:49 AM ?? CLINICAL HISTORY: ??R41.3-Other [id number]. COMPARISON: ??None. PROCEDURE COMMENTS: Multiplanar multiecho MR [...] CONTRAST, 05/30/2023 10:49 AM CLINICAL HISTORY: R41.3-Other [id number]. COMPARISON: None. PROCEDURE COMMENTS: Multiplanar multiecho MR [...] the ordering clinician. us Thierno Toth MD [facility] MRI ORDERABLES Siobhan l Result * (ABNORMAL) LIPID SCREEN (03/24/2023 12:35 PM EDT) [facility] Cholesterol 165 <200 mg/dL 03/24/2023 9:00 PM EDT PREFERRED [facility] Comment: < 200 ?Desirable 200 - 239 ? Borderline High >= 240 ?High Triglyceride 160(H) <150 mg/dL 03/24/2023 9:00 PM EDT [facility] Comment: < 150 ? Normal 150 - 199 ?Borderline High 200 - 499 ?High ??>= 500 ? Very High HDL 41 >=40 mg/dL 03/24/2023 9:00 PM EDT [facility] Comment: ??> 60 ?Optimal 40 - 60 ?Acceptable ?? < 40 ?Low LDL Calculated 96 <100 mg/dL 03/24/2023 9:00 PM EDT [facility] Comment: < 100 ?Optimal 100 - 129 ? Near or above optimal 130 - 159 ? Borderline High 160 - 189 ? High >= 190 ?Very High Non-HDL-C Calculated 124 <=129 mg/dL 03/24/2023 9:00 PM EDT [facility] Comment: <130 ?Desirable 130-159 Above Desirable 160-189 Borderline High 190-219 High >= 220 ??Very High Fasting Specimen? Yes None 023 9:00 PM EDT [facility] Blood VENOUS BLOOD / Unknown Venipuncture / Unknown 03/24/2023 12:35 PM EDT 03/24/2023 12:35 PM EDT Thierno Toth MD CHEMISTRY ORDERABLES Fi nal Result Performing Organization Address [facility] de Phone Number [facility] [email or web address] [address] , [place] [address] [facility] [address] [place], [place] [id number] * SYPHILIS SCREEN WITH REFLEX RPR QUANT (03/24/2023 12:35 PM EDT) Trep Ab Index 0.06 <=0.99 Index Value 03/24/2023 9:00 PM EDT [facility] Comment: < 1.00 - Non-Reactive ?? >=1.00 - Reactive NOTE: ??All reactive results will be reflexed to Quantitative Non-Treponemal(RPR)test. ?? Blood VENOUS BLOOD / Unknown Venipuncture / Unknown 03/24/2023 12:35 PM EDT 03/24/2023 12:35 PM EDT Thierno Toth MD CHEMISTRY ORDERABLES Fi nal Result Performing Organization Address [facility] de Phone Number [facility] [address] [place] [address] , [place] [address] * TSH REFLEX (03/24/2023 12:35 PM EDT) TSH Reflex 1.730 0.270 - 4.200 mcIU/mL 03/24/2023 9:00 PM EDT [facility] Blood VENOUS BLOOD / Unknown Venipuncture / Unknown 03/24/2023 12:35 PM EDT 03/24/2023 12:35 PM EDT Narrative [facility] - 03/24/2023 9:00 PM EDT Ingestion of beverley doses of biotin (>5 mg/day) taken within 8 hours of drawing blood sample can interfere with this immunoassay test. Thierno Toth MD CHEMISTRY ORDERABLES Fi nal Result Performing Organization Address City/[facility]/ZIP Co de Phone Number [facility] [address] [facility] , [place] [address] * VITAMIN B12/ FOLIC ACID (03/24/2023 12:35 PM EDT) Vitamin B12 261 232 - 1,245 pg/mL 03/24/2023 8:14 PM EDT [facility]REFERR[facility] Folate 13.70 >=4.80 ng/mL 03/24/2023 8:14 PM EDT [facility] Blood VENOUS BLOOD / Unknown Venipuncture / Unknown 03/24/2023 12:35 PM EDT 03/24/2023 12:35 PM EDT Narrative [facility] - 03/24/2023 8:14 PM EDT Ingestion of beverley doses of biotin (>5 mg/day) taken within 8 hours of drawing blood sample can interfere with this immunoassay test. Thierno Toth MD CHEMISTRY ORDERABLES Fi nal Result Performing Organization Address [facility] Co de Phone Number [facility] [address] [facility] , [place] [address] * URINE CULTURE (NO STAIN) (03/24/2023 11:28 AM EDT) Pathologist [facility] Culture Multiple bacterial species isolated from urine consistent with urogenital commensal organisms. 03/26/2023 3:03 AM EDT [facility] Urine URINE SPECIMEN COLLECTION, CLEAN CATCH / Unknown 03/24/2023 11:28 AM EDT 03/24/2023 11:28 AM EDT Thierno Toth MD MICROBIOLOGY - GENERAL ORDERABLES Final Result Performing Organization Address City/[facility]/ZIP Co de Phone Number [facility] [address] [facility] , [place] [address] * (ABNORMAL) SEP URINALYSIS POC (03/24/2023 11:06 AM EDT) UA Color POC Yellow Color 03/24/2023 11:08 AM EDT [facility] UA Appear POC Clear Clear 03/24/2023 11:08 AM EDT [facility] UA Gluc POC Negative Negative mg/dL 03/24/2023 11:08 AM EDT [facility] UA Bili POC Negative Negative 03/24/2023 11:08 AM EDT [facility] UA Ketones POC Negative Negative mg/dL 03/24/2023 11:08 AM EDT [facility] UA SG POC >=1.030 1.001 - 1.035 no units 03/24/2023 11:08 AM EDT [facility] UA Blood POC Negative Negative 03/24/2023 11:08 AM EDT [facility] UA pH POC 6.5 5.0 - 8.0 pH 03/24/2023 11:08 AM EDT [facility] UA Protein POC Negative Negative mg/dL 03/24/2023 11:08 AM EDT [facility] UA Urobilinogen POC 0.2 0.2, 1.0 03/24/2023 11:08 AM EDT [facility] UA Nitrite POC Negative Negative 03/24/2023 11:08 AM EDT [facility] UA Leuk Est POC Small(A) Negative 11:08 AM EDT [facility] Urine URINE SPECIMEN COLLECTION / Unknown 03/24/2023 11:06 AM EDT 03/24/2023 11:08 AM EDT us Thierno Toth MD POINT OF CARE TEST K[place]MA [place] [address] documented in this encounter Visit Diagnoses Diagnosis Annual physical exam- Primary Routine general medical examination at a health care facility Flank pain Abdominal pain, unspecified site Lightheadedness Dizziness and giddiness Memory loss Memory loss documented in this encounter Discontinued Medications Medication Sig Discontinue Reason Start Date End Da te busPIRone (BUSPAR) 15 mg Oral TabletIndications:St ress Take 1 Tablet by mouth 2 times daily as needed. 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 right knee See package instructions DELETE- Entered in Error 12/17/2022 03/24/2023 documented as of this encounter Orders Lab Orders Without Results Count Last Ordered D ate First Ordered Date CBC WITH DIFF 1 03/24/2023 COMPREHENSIVE METABOLIC PANEL 1 03/24/2023 documented in this encounter Care Teams Medical Housekeeper Relationship Specialty Start Date End Date Julisa Kerr MD [address] [place] [address] PCP - General 02/22/11 Jessica Cortes MD [address] [address] Internal Medicine-Rheumatology 04/26/16 Susana Garay MD [address] [place] [address] Medical Oncologist Internal Medicine-Hematology and Oncology 10/14/22 documented as of this encounter
--- OUTSIDE RECORDS SUMMARY | 2024-08-22 21:42 | XMS_ITS | Encounter Summary ---
Author Organization [place] [address] Care Team Providers Care Training Analyst Name Role Phone Julisa Kerr MD Primary Care Provider [phone] Jessica Cortes MD Unavailable [phone] Susana Garay MD Unavailable [phone] Reason for Visit * Reason Comments Medication Refill Encounter Details Date Type Department Care Team (Late st Contact Info) Description 02/17/2023 Refill SEP [facility] [address] [place] [address] Julisa Kerr MD [address] [place] [address] Medication Refill Social History Tobacco Use Types [...] Date End Date cyanocobalamin 1,000 mcg/mL Inj SolutionIndication s:Vitamin B 12 deficiency INJECT 1ML INTO MUSCLE EVERY MONTH 1 mL 11 02/17/2023 06/10/2023 documented in this encounter Plan of Treatment Upcoming Encounters Date Type Department Care Team (Late st Contact Info) Description 08/31/2024 8:30 AM EST Appointment [facility] [address] [place] [address] 10/25/2024 10:45 AM EST Office Visit [facility] [address] [facility] [address] [place] [address] Jessica Cortes MD [address] [facility] [address] [place] [address] 01/25/2025 9:00 AM EDT [address]ointment [address] [place] [address] 05/09/2025 11:00 AM EDT [address]ointment [address] [place] [address] 05/09/2025 11:15 AM EDT [address]ointment [address] [place] [address] Susana Garay MD [address] [place] [address] documented as of this encounter Goals Goal Patient Goal Type Associated Problems Recent Progress Patient-Stated? 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, RN documented as of this encounter Visit Diagnoses Diagnosis Vitamin B 12 deficiency Other B-complex deficiencies documented in this encounter Discontinued Medications Medication Sig Discontinue Reason Start Date End Da te cyanocobalamin 1,000 mcg/mL Inj SolutionIndications:Ramandeep min B 12 deficiency INJECT 1ML INTO THE MUSCLE EVERY MONTH 02/12/2022 02/17/2023 documented as of this encounter Care Teams Training Analyst Relationship Specialty Start Date End Date Julisa Kerr MD [address] [place] [address] PCP - General 02/22/11 Jessica Cortes MD [address] [facility] [address] [place] [address] Internal Medicine-Rheumatology 04/26/16 Susana Garay MD [address] [place] [address] Medical Oncologist Internal Medicine-Hematology and Oncology 10/14/22 documented as of this encounter
--- OUTSIDE RECORDS SUMMARY | 2024-08-22 21:42 | XMS_ITS | Encounter Summary ---
Author Organization [place] [address] Care Team Providers Care Construction Administrative Assistant Name Role Phone Julisa Kerr MD Primary Care Provider [phone] Jessica Cortes MD Unavailable [phone] Susana Garay MD Unavailable [phone] Reason for Visit * Reason Comments Pharmacy Rheumatology Management [facility] Encounter Details Date Type Department Care Team (Latest Contact Info) Description 02/28/2023 Specialty Pharmacy [facility] [address] [phone] Porsche Joyce CPhT Pharmacy Rheumatology Management ([facility]) [...] Progress Notes * Porsche Joyce CPhT - 02/28/2023 12:25 PM EDT Specialty Pharmacy Refill Coordination Note Yuliet Trevino is a 52 y.o. female contacted today regarding refills of her Simponi. No answer, unable to leave voicemail. * Renee Miller CPhT - 02/28/2023 12:25 PM EDT Specialty Pharmacy Refill Coordination Note Yuliet Trevino is a 52 y.o. female contacted today regarding refills of her Simponi. No answer, left voicemail to call [phone], option 4. * Rosibel Melo CPhT - 02/28/2023 12:25 PM EDT Specialty Pharmacy Refill Coordination Note Yuliet Trevino is a 52 y.o. female contacted today regarding refills of her Simponi. Medication to be delivered by [facility] on 03/11. Spoke with patient. Patient left voicemail for refill documented in this encounter Plan of Treatment Upcoming Encounters Date Type Department Care Team (Late st Contact Info) Description 08/31/2024 8:30 AM EST Appointment [address] [address] 10/25/2024 10:45 AM EST Office Visit [facility] [address] [place] [address] Jessica Cortes MD [address] [place] [address] 01/25/2025 9:00 AM EDT Appointment [address] [address] 05/09/2025 11:00 AM EDT Appointment [address] [address] 05/09/2025 11:15 AM EDT Appointment [address] [address] Susana Garay MD [address] [place] [address] [place] [address] documented as of this encounter Goals Goal Patient Goal Type Associated Problems Recent Progress Patient-Stated? 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, RN documented as of this encounter Visit Diagnoses Not on filedocumented in this encounter Care Teams Construction Administrative Assistant Relationship Specialty Start Date End Date Julisa Kerr MD [address] [place] [address] PCP - General 02/22/11 Jessica Cortes MD 651 [facility] [address] [place] [address] Internal Medicine-Rheumatology 04/26/16 Susana Garay MD [address] [place] [address] [place] [address] Medical Oncologist Internal Medicine-Hematology and Oncology 10/14/22 documented as of this encounter
--- OUTSIDE RECORDS SUMMARY | 2024-08-22 21:42 | XMS_ITS | Encounter Summary ---
Author Organization [place] [address] Care Team Providers Care Director Career Name Role Phone Julisa Kerr MD Primary Care Provider [phone] Jessica Cortes MD Unavailable [phone] Susana Garay MD Unavailable [phone] Reason for Visit * Reason Comments Follow-up Rheumatoid arthritis involving multiple sites with positive rheumatoid factor (HCC)Raynaud's phenomenon without gangrenePositive BRET (antinuclear antibody)Sicca syndrome (HCC)Neck painAge-related osteoporosis without current pathological fracturePostmenopausal stateImmunocompromised patient (HCC)Trochanteric bursitis of left hipTherapeutic drug monitoringTuberculosis screeningAcute deep vein thrombosis (DVT) of proximal vein of right lower extremity (HCC) Encounter Details Date Type Department Care Team (Latest Contact Info) Description 03/24/2023 8:15 AM EDT Office Visit [facility] [address] [place] [address] Jessica Cortes MD [address] [facility] [address] [place] [address] Rheumatoid arthritis involving multiple sites with positive rheumatoid factor (HCC) (Primary Dx); Raynaud's phenomenon without gangrene; Positive BRET (antinuclear antibody); Sicca syndrome (HCC); Neck pain; Age-related osteoporosis without current pathological fracture; Postmenopausal state; Immunocompromised patient (HCC); Trochanteric bursitis of left hip; Therapeutic drug monitoring; Tuberculosis screening; Antiphospholipid syndrome (HCC); Chronic pain of both knees Discharge Disposition: Home or Self Care Social [...] Time Taken Comments Blood Pressure 137/90 03/24/2023 8:25 AM EDT Pulse 85 03/24/2023 8:25 AM EDT Temperature - - Respiratory Rate 16 03/24/2023 8:25 AM EDT Oxygen Saturation - - Inhaled Oxygen Concentration - - Weight 63.4 kg (139 lb 12.8 oz) 03/24/2023 8:25 AM EDT Height - - Body Mass Index 25.57 12/17/2022 10:28 AM EDT documented in this encounter Functional [...] mL once a week. 4 mL 1 03/24/2023 3 documented in this encounter Discharge Disposition Disposition Code Departure Means Destination Home or Self Care documented in this encounter Progress Notes * Jessica Cortes MD - 03/24/2023 8:15 AM EDT Subjective Subjective: Patient ID: Yuliet Trevino is a 52 y.o. female. Chief Complaint Patient presents with Follow-up Rheumatoid arthritis involving multiple sites with positive rheumatoid factor (HCC) Raynaud's phenomenon without gangrene Positive BRET (antinuclear antibody) Sicca syndrome (HCC) Neck pain Age-related osteoporosis without current pathological fracture Postmenopausal state Immunocompromised patient (HCC) Trochanteric bursitis of left hip Therapeutic drug monitoring Tuberculosis screening Acute deep vein thrombosis (DVT) of proximal vein of right lower extremity (HCC) HPIThe patient comes in for follow up regarding RA. Symptoms started in 2002. Seen by [employer], Dr. Astorga. She was seen in [facility] but have not seen her in [...] mild pain- 3/10, mild swelling. Today's visit: Weather has been effective her. All the changes in temperature and humidity. Marshall been having a lot of issues with dizziness. No other symptoms associated with the dizziness. Sees PCP Right knee hurts and swells. Hands, wrist have been feeling much better Joint swelling: right knee, wrists Dry eyes - not too bad. Uses eye drops. Dry mouth - not too bad Type of pain: ache Morning stiffness: up to 30 minutes. Raynaud's: worsened in the cold weather. Current therapy: MTX 15 mg weekly, Arava 10 mg daily, Simponi 100 mg sq q month started around 02/10/22, folic acid 1 mg daily, prednisone 5 mg daily Previous therapy: Tylenol, Codeine, Darvocet, Motrin, Naproxen, Celebrex, Lodine did not help, Enbrel 50 mg sq q week (since [...] the next 30 min. 4 Tablet 11 busPIRone (BUSPAR) 15 mg Oral Tablet Take 1 Tablet by mouth 2 times daily as needed. 30 Tablet 2 cyanocobalamin 1,000 mcg/mL Inj Solution [...] BY MOUTH EVERY DAY 30 Tablet 0 methylPREDNISolone (MEDROL DOSPACK) 4 mg Oral Tablets, Dose Pack See package instructions 21 Tablet0 PROAIR HFA 90 mcg/actuation Inhl HFA Aerosol Inhaler INHALE 2 PUFFS BY MOUTH EVERY 6 HOURS NEEDED FOR WHEEZE 8.5 Each 3 No current facility-administered medications on file prior to visit. Review of Systems Constitutional: Positive for fatigue. Weight gain HENT: Positive for congestion. Dry mouth Eyes: Dry eyes Respiratory: Positive for cough. Gastrointestinal: GERD Musculoskeletal: Positive for arthralgias, back pain, joint swelling and neck pain. Neurological: Positive for dizziness and headaches. Psychiatric/Behavioral: Positive for sleep disturbance. Depression All other systems reviewed and are negative. Objective Objective: Vitals: 03/24/23 0825 BP: 137/90 Pulse: 85 Resp: 16 Weight: 139 lb 12.8 oz (63.4 kg) Body mass index is 25.57 kg/m??. Physical Exam Constitutional: Appearance: She is well-developed. HENT: Head: Normocephalic and atraumatic. Musculoskeletal: Comments: Synovitis in the wrists, 5th right MCP, 1st left MCP. Tenderness to the wrists, 5th rightMCP, 2-4th right PIP, medial joint line of the right knee. Small Forbes's cyst on the back of the left knee. No effusions. Neurological: Mental Status: She is alert. Psychiatric: Mood and Affect: Mood normal. Rapid 3: 16.5 Lab Results Component Value Date WBC 14.1 (H) 01/20/2023 HGB 12.7 01/20/2023 HCT 42.2 01/20/2023 MCV 89.2 01/20/2023 PLT 267 01/20/2023 Chemistry Component Value Date/Time NA 140 01/20/2023 1336 NA 138 11/23/2019 0000 K 4.2 01/20/2023 1336 K 4.6 11/23/2019 0000 CL 102 01/20/2023 1336 CL 102 11/23/2019 0000 CO2 27 01/20/2023 1336 CO2 27 11/23/2019 0000 BUN 11 01/20/2023 1336 BUN 11 11/23/2019 0000 CREATININE 0.85 01/20/2023 1336 CREATININE 0.7 11/23/2019 0000 GLU 111 (H) 01/20/2023 1336 GLU 103 (H) 07/01/2017 1532 Component Value Date/Time CALCIUM 9.3 01/20/2023 1336 CALCIUM 9.60 11/23/2019 0000 ALKPHOS 74 01/20/2023 1336 ALKPHOS 112 11/23/2019 0000 AST 16 01/20/2023 1336 AST 20 11/23/2019 0000 ALT 14 01/20/2023 1336 ALT 9 11/23/2019 0000 BILITOT 0.2 11/23/2019 0000 Lab Results Component Value Date CRP 63.65 (H) 01/20/2023 Lab Results Component Value Date SEDRATE 46 (H) 01/20/2023 XR KNEE LEFT AP LAT INT EXT [...] Soft tissue swelling. No acute osseous findings. Assessment and Plan: Yuliet was seen today for follow-up. Diagnoses and all orders for this visit: Rheumatoid arthritis involving multiple sites, with positive rheumatoid factor (HCC) Dx in 2002 [address] previously [address] Dr. Astorga in [facility]. Records from [facility] received and reviewed. The patient was seen in 05/11/13 for initial evaluation. Presented with polyarticular joint involvement- large and small joints- shoulders, elbows, knees, wrists, knuckles, toes. Per records she had low titer (+) RF, (-) CCP, (+) BRET centromere pattern > 8.0 with negative SSA/SSB, [employer] PRESIDENT, Scl 70, dsDNA Records indicate she used [...] 15 mg sq q week restarted 05/2022, will increase to 20 gm due to synovitis in the wrists and couple MCP joints Simponi 50 mg q month, increased to 100 mg q month Arava 10 mg daily Failed Plaquenil 200 mg twice a day, started 06/28/22, lowered to 200 mg daily due to nausea, stopped 12/09/22 Hepatitis panel checked and negative. Patient should hold therapy while being treated for infections. Patient should not receive live vaccines while on therapy. - methotrexate sodium 25 mg/mL Inj Solution; Subcutaneous (Inject under the skin) 0.8 mL once a week. Raynaud's phenomenon without gangrene Positive BRET (antinuclear antibody) 1:640, centromere pattern Sicca syndrome (HCC) Suspect secondary Sjogren's due to RA. SSA and SSB antibodies negative Advised on behavioral modifications- sugar free gum and candy, frequent fluid intake, eye drops Advised on regular ophthalmology and dental appointments No history of digital ulcerations No other symptoms to suggest CTD Neck pain x rays revealed mild degenerative [...] T score -2.2 at the right femoral neck . FRAX score - risk for fracture is [...] neck Fosamax 70 mg weekly started 12/09/22 Immunocompromised patient (HCC) Increased risk for infections due to immunosuppression Prevnar 13 given 12/13/16 Pneumovax 23 given 03/17/17 Trochanteric bursitis of the left hip Left bursa tenderness Advised to continue stretches and topical OTC creams Therapeutic drug monitoring Tuberculosis screening TB gold negative 01/23/22, recheck Labs every 6-8 weeks while on MTX and Arava to monitor for toxicities. Labs OK 01/20/23. Recheck today - SEDIMENTATION RATE AUTOMATED; Standing - C-REACTIVE PROTEIN; Standing - CBC WITH DIFF; Standing - COMPREHENSIVE METABOLIC PANEL; Standing - QUANTIFERON TB GOLD; Future Antiphospholipid antibody syndrome DVT 04/2022 Elevated d- dimer (+) anti cardiolipin Ab IgM at 72- high positive, persistent Suspect APLS Evaluated by Hem/Onc, Dr. Garay Advised OK to stay of anticoagulation for now but if new clot or (+) LA vs beta 2GP then will need rat exterminator anticoagulation Chronic pain of both knees More pain in both knees Periodic swelling Would like to aspirate the joint when she has swelling which would provide more info to the etiology of the effusion No effusions today Return in about 3 months (around 06/24/2023). documented in this encounter Plan of Treatment Upcoming Encounters Date Type Department Care Team (Late st Contact Info) Description 08/31/2024 8:30 AM EST Appointment [place] [address] [place] [address] 10/25/2024 10:45 AM EST Office Visit [facility] [address] [place] [address] Jessica Cortes MD [address] [facility] [address] [place] [address] 01/25/2025 9:00 AM EDT [address]ointment [address] [place] [address] 05/09/2025 11:00 AM EDT [address]ointment [address] [place] [address] 05/09/2025 11:15 AM EDT Appointment [facility] [address] [place] [address] Susana Garay MD [address] [place] [address] [address] [place], [place] [address] Scheduled Orders Name Type Priority Associated Diagnoses Orde r Schedule SEDIMENTATION RATE AUTOMATED Lab Routine Therapeutic drug monitoring Every 6 weeks for 10 Occurrences starting 03/24/2023 until 03/23/2024, 8 completed C-REACTIVE PROTEIN Lab Routine Therapeutic drug monitoring Every 6 weeks for 10 Occurrences starting 03/24/2023 until 03/23/2024, 8 completed CBC WITH DIFF Lab Routine Therapeutic drug monitoring Every 6 weeks for 10 Occurrences starting 03/24/2023 until 03/23/2024, 7 completed COMPREHENSIVE METABOLIC PANEL Lab Routine Therapeutic drug monitoring Every 6 weeks for 10 Occurrences starting 03/24/2023 until 03/23/2024, 7 completed documented as of this encounter Goals Goal Patient Goal Type Associated Problems Recent Progress Patient-Stated? Author Maintain a healthy diet, exercise regularly and maintain an ideal body weight General Porsche Ashley RN documented as of this encounter Results * (ABNORMAL) COMPREHENSIVE METABOLIC PANEL (02/26/2024 10:51 AM EDT) Sodium 141 136 - 145 mmol/L 02/26/2024 [...] 02/26/2024 5:37 PM EDT [facility] Creatinine 0.66 0.51 - 1.30 mg/dL 02/26/2024 5:37 PM EDT [facility], [facility] Albumin 3.8 3.5 - 5.2 gm/dL 02/26/2024 5:37 PM EDT [facility], [facility] Total Protein 7.0 6.4 - 8.3 gm/dL 02/26/2024 5:37 PM EDT [facility], [facility] Bili Total 0.2 0.2 - 1.3 mg/dL 02/26/2024 5:37 PM EDT [facility] ALT 9 <=41 U/L 02/26/2024 5:37 PM EDT [facility], [facility] AST 14 <=40 U/L 02/26/2024 5:37 PM EDT [facility], [facility] Alk Phos 138(H) 36 - 123 U/L 02/26/2024 5:37 PM EDT [facility], [facility] eGFR (CKD-EPIcr 2020) 104 >=60 mL/min/1.7 3 m2 02/26/2024 5:37 PM EDT [facility] Comment:Estimated GFR was ca lculated using the CKD-EPIcr (2020) equation refit without race. The equation is recommended by the National Kidney [employer] - [place] [employer] Neph[employer] Task Force. Blood VENOUS BLOOD / Unknown Venipuncture / Unknown 02/26/2024 10:51 AM EDT 02/26/2024 10:51 AM EDT us Jessica Cortes MD CHEMISTRY ORDERABLES Siobhan l Result [facility], [facility] [address] [facility], [address] [place] [id number] [facility] [address] [place] [address] * (ABNORMAL) CBC WITH DIFF (02/26/2024 10:51 AM EDT) [facility] Signature WBC 7.3 3.7 - 10.3 x10(3)/mcL 02/26/2024 3:10 PM EDT [facility] RBC 4.29 3.90 - 5.20 x10(6)/mcL 02/26/2024 3:10 PM EDT [facility] Hgb 11.7 11.2 - 15.7 g/dL 02/26/2024 3:10 PM EDT [facility] Hct 38.5 34.0 - 45.0 % 02/26/2024 3:10 PM EDT [facility] MCV 89.7 80.0 - 100.0 fL 02/26/2024 3:10 PM EDT [facility] MCH 27.3 26.0 - 34.0 pg 02/26/2024 3:10 PM EDT [facility] MCHC 30.4(L) 30.7 - 35.5 g/dL 02/26/2024 3:10 PM EDT [facility] RDW 16.4(H) <=14.9 % 02/26/2024 3:10 PM EDT [facility] Platelet 451(H) 155 - 369 x10(3)/mcL 02/26/2024 3:10 PM EDT [facility] MPV 10.2 8.8 - 12.5 fL 02/26/2024 3:10 PM EDT [facility] Neut Percent 45.8 % 02/26/2024 3:10 PM EDT [facility] Comment:Neutrophils equals s egs plus bands Imm Gran% 2.2 % 02/26/2024 3:10 PM EDT [facility] Comment:Automated count of m etamyelocytes, myelocytes and promyelocytes. IG >1% represents a left shift and provides an early indication of an infection or inflammatory process. Lymph Percent 33.1 % 02/26/2024 3:10 PM EDT [facility] [place] Percent 13.2 % 02/26/2024 3:10 PM EDT [facility] Eos Percent 4.7 % 02/26/2024 3:10 PM EDT [facility] Baso Percent 1.0 % 02/26/2024 3:10 PM EDT [facility] Neut # 3.3 1.6 - 6.1 x10(3)/mcL 02/26/2024 3:10 PM EDT [facility] Comment:Neutrophils equals s egs plus bands IMMGRAN# 0.2(H) 0.0 - 0.1 x10(3)/[facility] 02/26/2024 3:10 PM EDT [facility], [facility] Comment:Automated count of m etamyelocytes, myelocytes and promyelocytes. An absolute IG <0.1 is reported as 0.0. Lymph # 2.4 1.2 - 3.9 x10(3)/[facility] 02/26/2024 3:10 PM EDT [facility], [facility] [place] # 1.0(H) 0.3 - 0.9 x10(3)/[facility] 02/26/2024 3:10 PM EDT [facility] Eos# 0.3 0.0 - 0.5 x10(3)/[facility] 02/26/2024 3:10 PM EDT [facility] Baso # 0.1 0.0 - 0.1 x10(3)/[facility] 02/26/2024 3:10 PM EDT [facility] [place], [facility] Blood VENOUS BLOOD / Unknown Venipuncture / Unknown 02/26/2024 10:51 AM EDT 02/26/2024 10:51 AM EDT Jessica Cortes MD HEMATOLOGY ORDERABLES Fin al Result Performing Organization Address City/[facility]/ZIP Co de Phone Number [facility] [place], [address] , [place] [address] * (ABNORMAL) C-REACTIVE PROTEIN (02/26/2024 10:51 AM EDT) [facility] CRP 24.61(H) <=5.00 mg/L 02/26/2024 5:37 PM EDT [facility] [place], [facility] Blood VENOUS BLOOD / Unknown Venipuncture / Unknown 02/26/2024 10:51 AM EDT 02/26/2024 10:51 AM EDT us Jessica Cortes MD CHEMISTRY ORDERABLES Siobhan l Result [facility] [address] [facility] , [place] [address] * SEDIMENTATION RATE AUTOMATED (02/26/2024 10:51 AM EDT) Pathologist [facility] Sed Rate 21 0 - 30 mm/hr 02/26/2024 3:10 PM EDT [facility] Blood VENOUS BLOOD / Unknown Venipuncture / Unknown 02/26/2024 10:51 AM EDT 02/26/2024 10:51 AM EDT us Jessica Cortes MD HEMATOLOGY ORDERABLES Fin al Result [facility] [address] [facility] , [place] [address] * COMPREHENSIVE METABOLIC PANEL (12/15/2023 12:28 PM EDT) Pathologist [facility] Sodium 140 136 - 145 mmol/L 12/15/2023 8:41 PM EDT [facility] Potassium 4.2 3.5 - 5.0 mmol/L 12/15/2023 8:41 PM EDT [facility] Chloride 103 98 - 107 mmol/L 12/15/2023 8:41 PM EDT [facility] Total CO2 28 22 - 29 mmol/L 12/15/2023 8:41 PM EDT [facility] Anion Gap 9 7 - 16 mmol/L 12/15/2023 8:41 PM EDT [facility] Calcium 9.9 8.6 - 10.4 mg/dL 12/15/2023 8:41 PM EDT [facility] Glucose Lvl 82 70 - 99 mg/dL 12/15/2023 8:41 PM EDT [facility] BUN 8 6 - 20 mg/dL 12/15/2023 8:41 PM EDT [facility] Creatinine 0.76 0.51 - 1.30 mg/dL 12/15/2023 8:41 PM EDT [facility] Albumin 3.9 3.5 - 5.2 gm/dL 12/15/2023 8:41 PM EDT [facility] Total Protein 7.6 6.4 - 8.3 gm/dL 12/15/2023 8:41 PM EDT [facility] Bili Total 0.3 0.2 - 1.3 mg/dL 12/15/2023 8:41 PM EDT [facility] ALT 12 <=41 U/L 12/15/2023 8:41 PM EDT [facility] AST 19 <=40 U/L 12/15/2023 8:41 PM EDT [facility] Alk Phos 94 36 - 123 U/L 12/15/2023 8:41 PM EDT [facility] eGFR (CKD-EPIcr 2020) 93 >=60 mL/min/1.7 3 m2 12/15/2023 8:41 PM EDT [facility] Comment:Estimated GFR was ca lculated using the CKD-EPIcr (2020) equation refit without race. The equation is recommended by the National Kidney Foundation - [place] [employer] of Nephrology Task Force. Blood VENOUS BLOOD / Unknown Venipuncture / Unknown 12/15/2023 12:28 PM EDT 12/15/2023 12:28 PM EDT us Jessica Cortes MD CHEMISTRY ORDERABLES Siobhan finnegan Result [facility], [facility] [address] [facility], [address] [place] [id number] [facility] [address] [place], [place] [id number] * (ABNORMAL) CBC WITH DIFF (12/15/2023 12:28 PM EDT) WBC 9.3 3.7 - 10.3 x10(3)/mcL 12/15/2023 8:28 PM EDT [facility] RBC 4.88 3.90 - 5.20 x10(6)/mcL 12/15/2023 8:28 PM EDT [facility] Hgb 13.3 11.2 - 15.7 g/dL 12/15/2023 8:28 PM EDT [facility] Hct 44.4 34.0 - 45.0 % 12/15/2023 8:28 PM EDT [facility] MCV 91.0 80.0 - 100.0 fL 12/15/2023 8:28 PM EDT [facility] MCH 27.3 26.0 - 34.0 pg 12/15/2023 8:28 PM EDT [facility] MCHC 30.0(L) 30.7 - 35.5 g/dL 12/15/2023 8:28 PM EDT [facility] RDW 15.8(H) <=14.9 % 12/15/2023 8:28 PM EDT [facility] Platelet 545(H) 155 - 369 x10(3)/mcL 12/15/2023 8:28 PM EDT [facility] MPV 10.0 8.8 - 12.5 fL 12/15/2023 8:28 PM EDT [facility] Neut Percent 51.0 % 12/15/2023 8:28 PM EDT [facility] Comment:Neutrophils equals s egs plus bands Imm Gran% 1.4 % 12/15/2023 8:28 PM EDT [facility] Comment:Automated count of m etamyelocytes, myelocytes and promyelocytes. IG >1% represents a left shift and provides an early indication of an infection or inflammatory process. Lymph Percent 30.3 % 12/15/2023 8:28 PM EDT [facility] [place] Percent 12.1 % 12/15/2023 8:28 PM EDT [facility] Eos Percent 4.2 % 12/15/2023 8:28 PM EDT [facility] Baso Percent 1.0 % 12/15/2023 8:28 PM EDT [facility] Neut # 4.8 1.6 - 6.1 x10(3)/mcL 12/15/2023 8:28 PM EDT [facility] Comment:Neutrophils equals s egs plus bands IMMGRAN# 0.1 0.0 - 0.1 x10(3)/mcL 12/15/2023 8:28 PM EDT [facility] Comment:Automated count of m etamyelocytes, myelocytes and promyelocytes. An absolute IG <0.1 is reported as 0.0. Lymph # 2.8 1.2 - 3.9 x10(3)/mcL 12/15/2023 8:28 PM EDT [facility] [place] # 1.1(H) 0.3 - 0.9 x10(3)/mcL 12/15/2023 8:28 PM EDT [facility] Eos# 0.4 0.0 - 0.5 x10(3)/mcL 12/15/2023 8:28 PM EDT [facility] Baso # 0.1 0.0 - 0.1 x10(3)/mcL 12/15/2023 8:28 PM EDT [facility] Blood VENOUS BLOOD / Unknown Venipuncture / Unknown 12/15/2023 12:28 PM EDT 12/15/2023 12:28 PM EDT Jessica Cortes MD HEMATOLOGY ORDERABLES Fin al Result Performing Organization Address [facility] Co de Phone Number [facility] , [place] [address] * (ABNORMAL) C-REACTIVE PROTEIN (12/15/2023 12:28 PM EDT) [facility] CRP 33.43(H) <=5.00 mg/L 12/15/2023 8:41 PM EDT [facility], [facility] Blood VENOUS BLOOD / Unknown Venipuncture / Unknown 12/15/2023 12:28 PM EDT 12/15/2023 12:28 PM EDT Jessica Cortes MD CHEMISTRY ORDERABLES Siobhan l Result Performing Organization Address [facility] Co de Phone Number [facility] , [place] [address] * SEDIMENTATION RATE AUTOMATED (12/15/2023 12:28 PM EDT) [facility] Sed Rate 23 0 - 30 mm/hr 12/15/2023 8:28 PM EDT [facility] Blood VENOUS BLOOD / Unknown Venipuncture / Unknown 12/15/2023 12:28 PM EDT 12/15/2023 12:28 PM EDT us Jessica Cortes MD HEMATOLOGY ORDERABLES Fin al Result [facility] [address] [place] [address] * (ABNORMAL) COMPREHENSIVE METABOLIC PANEL (10/03/2023 9:34 [...] 10/03/2023 5:58 PM EST [facility] Alk Phos 116 36 - 123 U/L 10/03/2023 5:58 PM EST [facility] eGFR (CKD-EPIcr 2020) 92 >=60 mL/min/1.7 3 m2 10/03/2023 5:58 PM EST [facility] Comment:Estimated GFR was ca lculated using the CKD-EPIcr (2020) equation refit without race. The equation is recommended by the National Kid[employer] - [place] [employer] Nephrology Task Force. Blood VENOUS BLOOD / Unknown Venipuncture / Unknown 10/03/2023 9:34 AM EST 10/03/2023 9:34 AM EST us Jessica Cortes MD CHEMISTRY ORDERABLES Siobhan l Result [facility] [address] [facility] , [place] [address] [facility] [address] [place] [address] * (ABNORMAL) CBC WITH DIFF (10/03/2023 9:34 AM EST) WBC 16.2(H) 3.7 - 10.3 x10(3)/mcL 10/03/2023 [...] 10/03/2023 3:31 PM EST [facility] MCHC 30.6(L) 30.7 - 35.5 g/dL 10/03/2023 [...] 3:31 PM EST [facility] [place] # 1.7(H) 0.3 - 0.9 x10(3)/mcL 10/03/2023 [...] al Result Performing Organization Address [facility] Co de Phone Number [facility] [employer] [address] , [address] [place] [phone] * (ABNORMAL) C-REACTIVE PROTEIN (10/03/2023 9:34 AM EST) Pathologist [facility] CRP 9.40(H) <=5.00 mg/L 10/03/2023 5:57 PM EST [facility] [employer] Blood VENOUS BLOOD / Unknown Venipuncture / Unknown 10/03/2023 9:34 AM EST 10/03/2023 9:34 AM EST us Jessica Cortes MD CHEMISTRY ORDERABLES Siobhan l Result Performing Organization Address [facility] Co de Phone Number [facility] [employer] [address] , [place] [address] * SEDIMENTATION RATE AUTOMATED (10/03/2023 9:34 AM EST) [facility] Sed Rate 26 0 - 30 mm/hr 10/03/2023 3:13 PM EST [facility] Blood VENOUS BLOOD / Unknown Venipuncture / Unknown 10/03/2023 9:34 AM EST 10/03/2023 9:34 AM EST us Jessica Cortes MD HEMATOLOGY ORDERABLES Fin al Result Performing Organization Address [facility] Co de Phone Number [facility] [address] [place] [phone] * (ABNORMAL) COMPREHENSIVE METABOLIC PANEL (08/13/2023 11:52 AM EST) [facility] Sodium 136 136 - 145 mmol/L 08/13/2023 9:37 PM EST [facility] [employer] [facility] Potassium 3.7 3.5 - 5.0 mmol/L 08/13/2023 9:37 PM EST [facility] Chloride 100 98 - 107 mmol/L 08/13/2023 9:37 PM EST [facility] Total CO2 24 22 - 29 mmol/L [...] mL/min/1.7 3 m2 08/13/2023 9:37 PM EST [facility] Comment:Estimated GFR was ca lculated using the CKD-EPIcr (2020) equation refit without race. The equation is recommended by the National Kid[employer] - [place] [employer]ph[employer] Task Force. Blood VENOUS BLOOD / Unknown Venipuncture / Unknown 08/13/2023 11:52 AM EST 08/13/2023 11:52 AM EST us Jessica Cortes MD CHEMISTRY ORDERABLES Siobhan l Result [facility] [address] [facility], [address] [place] [phone] [facility] [address] [place] [address] * (ABNORMAL) CBC WITH DIFF (08/13/2023 11:52 [...] 7:21 PM EST [facility] Comment:Automated count of m etamyelocytes, myelocytes and promyelocytes. Lymph Percent 8.7 % 08/13/2023 7:21 PM EST [facility] [place] Percent 11.8 % 08/13/2023 7:21 PM EST [facility] Eos Percent 1.1 % 08/13/2023 7:21 PM EST [facility] Baso Percent 0.5 % 08/13/2023 7:21 PM EST [facility] Neut # 11.2(H) 1.6 - 6.1 x10(3)/mcL 08/13/2023 7:21 PM EST [facility] Comment:Neutrophils equals s egs plus bands IMMGRAN# 0.1 0.0 - 0.1 x10(3)/mcL 08/13/2023 7:21 PM EST [facility] Comment:Automated count of m etamyelocytes, myelocytes and promyelocytes. An absolute IG <0.1 is reported as 0.0. Lymph # 1.3 1.2 - 3.9 x10(3)/mcL 08/13/2023 7:21 PM EST [facility] [place] # 1.7(H) 0.3 - 0.9 x10(3)/mcL 08/13/2023 7:21 PM EST [facility] Eos# 0.2 0.0 - 0.5 x10(3)/mcL 08/13/2023 7:21 PM EST [facility] Baso # 0.1 0.0 - 0.1 x10(3)/mcL 08/13/2023 7:21 PM EST [facility] Blood VENOUS BLOOD / Unknown Venipuncture / Unknown 08/13/2023 11:52 AM EST 08/13/2023 11:52 AM EST us Jessica Cortes MD HEMATOLOGY ORDERABLES Fin al Result [facility] [address] [facility] , [place] [address] * (ABNORMAL) C-REACTIVE PROTEIN (08/13/2023 11:52 AM EST) CRP 41.11(H) <=5.00 mg/L 08/13/2023 9:36 PM EST [facility] [employer] Blood VENOUS BLOOD / Unknown Venipuncture / Unknown 08/13/2023 11:52 AM EST 08/13/2023 11:52 AM EST us Jessica Cortes MD CHEMISTRY ORDERABLES Siobhan l Result Performing Organization Address City/[facility]/ZIP Co de Phone Number [facility] [employer] [facility] [address] [facility] , [place] [address] * SEDIMENTATION RATE AUTOMATED (08/13/2023 11:52 AM EST) Sed Rate 18 0 - 30 mm/hr 08/13/2023 7:21 PM EST [facility] [employer] Blood VENOUS BLOOD / Unknown Venipuncture / Unknown 08/13/2023 11:52 AM EST 08/13/2023 11:52 AM EST us Jessica Cortes MD HEMATOLOGY ORDERABLES Fin al Result Performing Organization Address [facility] Co de Phone Number [facility] [address] [facility] , [place] [address] * (ABNORMAL) C-REACTIVE PROTEIN (08/06/2023 9:36 AM EST) CRP 19.66(H) <=5.00 mg/L 08/06/2023 5:57 PM EST [facility] [employer] Blood VENOUS BLOOD / Unknown Venipuncture / Unknown 08/06/2023 9:36 AM EST 08/06/2023 9:36 AM EST us Jessica Cortes MD CHEMISTRY ORDERABLES Siobhan l Result Performing Organization Address City/[facility]/ZIP Co de Phone Number [facility] [employer] [facility] [address] [facility] , [place] [address] * (ABNORMAL) SEDIMENTATION RATE AUTOMATED (08/06/2023 9:36 AM EST) Sed Rate 31(H) 0 - 30 mm/hr 08/06/2023 4:55 PM EST [facility] Blood VENOUS BLOOD / Unknown Venipuncture / Unknown 08/06/2023 9:36 AM EST 08/06/2023 9:36 AM EST us Jessica Cortes MD HEMATOLOGY ORDERABLES Fin al Result [facility] [address] [place] [phone] * (ABNORMAL) COMPREHENSIVE METABOLIC PANEL (06/19/2023 3:24 [...] 06/20/2023 12:44 AM EDT [facility] AST 17 <=40 U/L 06/20/2023 12:44 AM EDT [facility] Alk Phos 86 36 - 123 U/L 06/20/2023 12:44 AM EDT [facility] eGFR (CKD-EPIcr 2020) 104 >=60 mL/min/1.7 3 m2 06/20/2023 12:44 AM EDT [facility] Comment:Estimated GFR was ca lculated using the CKD-EPIcr (2020) equation refit without race. The equation is recommended by the National Kidney Foundation - [place] [employer] Nephrology Task Force. Blood VENOUS BLOOD / Unknown Venipuncture / Unknown 06/19/2023 3:24 PM EDT 06/19/2023 3:24 PM EDT us Jessica Cortes MD CHEMISTRY ORDERABLES Siobhan l Result [facility] [address] [facility] , [place] [address] [facility] [address] [place] [address] * (ABNORMAL) CBC WITH DIFF (06/19/2023 3:24 PM EDT) WBC 9.1 3.7 - 10.3 x10(3)/mcL 06/19/2023 8:48 PM EDT [facility] RBC 4.65 3.90 - 5.20 x10(6)/mcL 06/19/2023 8:48 PM EDT [facility] Hgb 11.8 11.2 - 15.7 g/dL 06/19/2023 8:48 PM EDT [facility] Hct 39.3 34.0 - 45.0 % 06/19/2023 8:48 PM EDT [facility] MCV 84.5 80.0 - 100.0 fL 06/19/2023 8:48 PM EDT [facility] MCH 25.4(L) 26.0 - 34.0 pg 06/19/2023 8:48 PM EDT [facility] MCHC 30.0(L) 30.7 - 35.5 g/dL 06/19/2023 8:48 PM EDT [facility] RDW 17.5(H) <=14.9 % 06/19/2023 8:48 PM EDT [facility] Platelet 526(H) 155 - 369 x10(3)/[facility] 06/19/2023 8:48 PM EDT [facility] MPV 10.4 8.8 - 12.5 fL 06/19/2023 8:48 PM EDT [facility] Neut Percent 83.9 % 06/19/2023 8:48 PM EDT [facility] Comment:Neutrophils equals s egs plus bands Imm Gran% 4.5 % 06/19/2023 8:48 PM EDT [facility] Comment:Automated count of m etamyelocytes, myelocytes and promyelocytes. Lymph Percent 10.2 % 06/19/2023 8:48 PM EDT [facility] [place] Percent 1.0 % 06/19/2023 8:48 PM EDT [facility] Eos Percent 0.1 % 06/19/2023 8:48 PM EDT [facility] Baso Percent 0.3 % 06/19/2023 8:48 PM EDT [facility] Neut # 7.6(H) 1.6 - 6.1 x10(3)/[facility] 06/19/2023 8:48 PM EDT [facility] Comment:Neutrophils equals s egs plus bands IMMGRAN# 0.4(H) 0.0 - 0.1 x10(3)/[facility] 06/19/2023 8:48 PM EDT [facility] Comment:Automated count of m etamyelocytes, myelocytes and promyelocytes. An absolute IG <0.1 is reported as 0.0. Lymph # 0.9(L) 1.2 - 3.9 x10(3)/mcL 06/19/2023 8:48 PM EDT [facility] [place] # 0.1(L) 0.3 - 0.9 x10(3)/[facility] 06/19/2023 8:48 PM EDT [facility] [employer], [facility] Eos# 0.0 0.0 - 0.5 x10(3)/mcL 06/19/2023 8:48 PM EDT [facility] Baso # 0.0 0.0 - 0.1 x10(3)/mcL 06/19/2023 8:48 PM EDT [facility] [employer], [facility] Blood VENOUS BLOOD / Unknown Venipuncture / Unknown 06/19/2023 3:24 PM EDT 06/19/2023 3:24 PM EDT us Jessica Cortes MD HEMATOLOGY ORDERABLES Fin al Result Performing Organization Address City/[facility]/ZIP Co de Phone Number [facility] [employer] , [place] [address] * C-REACTIVE PROTEIN (06/19/2023 3:24 PM EDT) CRP 3.23 <=5.00 mg/L 06/20/2023 12:44 AM EDT [facility] [employer], [facility] Blood VENOUS BLOOD / Unknown Venipuncture / Unknown 06/19/2023 3:24 PM EDT 06/19/2023 3:24 PM EDT Result Henry Cortes MD CHEMISTRY ORDERABLES Siobhan l Result Performing Organization Address City/[facility]/ZIP Co de Phone Number [facility] [employer] , [place] [address] * (ABNORMAL) SEDIMENTATION RATE AUTOMATED (06/19/2023 3:24 PM EDT) Sed Rate 44(H) 0 - 30 mm/hr 06/19/2023 8:48 PM EDT [facility] [employer], [facility] Blood VENOUS BLOOD / Unknown Venipuncture / Unknown 06/19/2023 3:24 PM EDT 06/19/2023 3:24 PM EDT us Jessica Cortes MD HEMATOLOGY ORDERABLES Fin al Result [facility] [address] [facility] , [place] [address] * COMPREHENSIVE METABOLIC PANEL (05/02/2023 11:34 AM EDT) Sodium 141 136 - 145 mmol/L 05/02/2023 10:22 PM EDT [facility] Potassium 4.0 3.5 - 5.0 mmol/L 05/02/2023 10:22 PM EDT [facility] Chloride 100 98 - 107 mmol/L 05/02/2023 10:22 PM EDT [facility] Total CO2 26 22 - 29 mmol/L 05/02/2023 10:22 PM EDT [facility] Anion Gap 15 7 - 16 mmol/L 05/02/2023 10:22 PM EDT [facility] Calcium 9.4 8.6 - 10.4 mg/dL 05/02/2023 10:22 PM EDT [facility] Glucose Lvl 87 74 - 100 mg/dL 05/02/2023 10:22 PM EDT [facility] BUN 13 6 - 20 mg/dL 05/02/2023 10:22 PM EDT [facility] Creatinine 0.89 0.51 - 1.30 mg/dL 05/02/2023 10:22 PM EDT [facility] Albumin 4.3 3.5 - 5.2 gm/dL 05/02/2023 10:22 PM EDT [facility] Total Protein 7.7 6.4 - 8.3 gm/dL 05/02/2023 10:22 PM EDT [facility] Bili Total 0.2 0.2 - 1.3 mg/dL 05/02/2023 10:22 PM EDT [facility] ALT 11 <=41 U/L 05/02/2023 10:22 PM EDT [facility] AST 15 <=40 U/L 05/02/2023 10:22 PM EDT [facility] Alk Phos 85 36 - 123 U/L 05/02/2023 10:22 PM EDT [facility] eGFR (CKD-EPIcr 2020) 78 >=60 mL/min/1.7 3 m2 05/02/2023 10:22 PM EDT [facility] Comment:Estimated GFR was ca lculated using the CKD-EPIcr (2020) equation refit without race. The equation is recommended by the National Kidney [employer] - [place] [employer] Neph[employer] Task Force. Blood VENOUS BLOOD / Unknown Venipuncture / Unknown 05/02/2023 11:34 AM EDT 05/02/2023 11:34 AM EDT us Jessica Cortes MD CHEMISTRY ORDERABLES Siobhan finnegan Result [facility] [address] [facility], [address] [place] [phone] [facility] [address] [place], [place] [phone] * (ABNORMAL) CBC WITH DIFF (05/02/2023 11:34 [...] 05/02/2023 8:30 PM EDT [facility] MPV 10.2 8.8 - 12.5 fL 05/02/2023 8:30 PM EDT [facility] Neut Percent 77.2 % 05/02/2023 8:30 PM EDT [facility] Comment:Neutrophils equals s egs plus bands Imm Gran% 1.4 % 05/02/2023 8:30 PM EDT [facility] Comment:Automated count of m etamyelocytes, myelocytes and promyelocytes. IG >1% represents a left shift and provides an early indication of an infection or inflammatory process. Lymph Percent 12.0 % 05/02/2023 8:30 PM EDT [facility] [place] Percent 7.1 % 05/02/2023 8:30 PM EDT [facility] Eos Percent 1.7 % 05/02/2023 8:30 PM EDT [facility] Baso Percent 0.6 % 05/02/2023 8:30 PM EDT [facility] Neut # 13.4(H) 1.6 - 6.1 x10(3)/mcL 05/02/2023 8:30 PM EDT [facility] Comment:Neutrophils equals s egs plus bands IMMGRAN# 0.3(H) 0.0 - 0.1 x10(3)/mcL 05/02/2023 8:30 PM EDT [facility] Comment:Automated count of m etamyelocytes, myelocytes and promyelocytes. An absolute IG <0.1 is reported as 0.0. Lymph # 2.1 1.2 - 3.9 x10(3)/mcL 05/02/2023 8:30 PM EDT [facility] [place] # 1.2(H) 0.3 - 0.9 x10(3)/mcL 05/02/2023 8:30 PM EDT [facility] Eos# 0.3 0.0 - 0.5 x10(3)/mcL 05/02/2023 8:30 PM EDT [facility] Baso # 0.1 0.0 - 0.1 x10(3)/mcL 05/02/2023 8:30 PM EDT [facility] [employer] [facility] Blood VENOUS BLOOD / Unknown Venipuncture / Unknown 05/02/2023 11:34 AM EDT 05/02/2023 11:34 AM EDT us Jessica Cortes MD HEMATOLOGY ORDERABLES Fin al Result Performing Organization Address City/[facility]/ZIP Co de Phone Number [facility] [employer] [address] , [place] [phone] * (ABNORMAL) C-REACTIVE PROTEIN (05/02/2023 11:34 AM EDT) [facility] CRP 9.89(H) <=5.00 mg/L 05/02/2023 10:22 PM EDT [facility] [employer] [facility] Blood VENOUS BLOOD / Unknown Venipuncture / Unknown 05/02/2023 11:34 AM EDT 05/02/2023 11:34 AM EDT us Jessica Cortes MD CHEMISTRY ORDERABLES Siobhan l Result Performing Organization Address [facility] Co de Phone Number [facility] [place] , [address] [place] [phone] * SEDIMENTATION RATE AUTOMATED (05/02/2023 11:34 AM EDT) Pathologist [facility] Sed Rate 19 0 - 30 mm/hr 05/02/2023 8:30 PM EDT [facility] Blood VENOUS BLOOD / Unknown Venipuncture / Unknown 05/02/2023 11:34 AM EDT 05/02/2023 11:34 AM EDT us Jessica Cortes MD HEMATOLOGY ORDERABLES Fin al Result Performing Organization Address City/[facility] Co de Phone Number [facility] [address] [place], [place] [phone] * (ABNORMAL) COMPREHENSIVE METABOLIC PANEL (03/24/2023 12:35 PM EDT) Sodium 137 136 - 145 mmol/L 03/24/2023 9:00 PM EDT [facility] Potassium 3.4(L) 3.5 - 5.0 mmol/L 03/24/2023 9:00 PM EDT [facility] Chloride 101 98 - 107 mmol/L 03/24/2023 9:00 PM EDT [facility] Total CO2 23 22 - 29 mmol/L 03/24/2023 9:00 PM EDT [facility] Anion Gap 13 7 - 16 mmol/L 03/24/2023 9:00 PM EDT [facility] Calcium 9.4 8.6 - 10.4 mg/dL 03/24/2023 9:00 PM EDT [facility] Glucose Lvl 105(H) 74 - 100 mg/dL 03/24/2023 9:00 PM EDT [facility] BUN 9 6 - 20 mg/dL 03/24/2023 9:00 PM EDT [facility] Creatinine 0.75 0.51 - 1.30 mg/dL 03/24/2023 9:00 PM EDT [facility] Albumin 4.0 3.5 - 5.2 gm/dL 03/24/2023 9:00 PM EDT [facility] Total Protein 7.0 6.4 - 8.3 gm/dL 03/24/2023 9:00 PM EDT [facility] Bili Total 0.2 0.1 - 1.3 mg/dL 03/24/2023 9:00 PM EDT [facility] ALT 8 <=41 U/L 03/24/2023 9:00 PM EDT [facility] AST 15 <=40 U/L 03/24/2023 9:00 PM EDT [facility] Alk Phos 69 36 - 123 U/L 03/24/2023 9:00 PM EDT [facility] eGFR (CKD-EPIcr 2020) 95 >=60 mL/min/1.7 3 m2 03/24/2023 9:00 PM EDT [facility] Comment:Estimated GFR was ca lculated using the CKD-EPIcr (2020) equation refit without race. The equation is recommended by the National Kidney [employer] - [place] [employer] Neph[employer] Task Force. Blood VENOUS BLOOD / Unknown Venipuncture / Unknown 03/24/2023 12:35 PM EDT 03/24/2023 12:35 PM EDT us Jessica Cortes MD CHEMISTRY ORDERABLES Siobhan l Result [facility] [address] [facility] , [address] [place] [phone] [facility] [address] [place], [place] [phone] * (ABNORMAL) CBC WITH DIFF (03/24/2023 12:35 [...] 03/24/2023 8:21 PM EDT [facility] Comment:Neutrophils equals s egs plus bands Imm Gran% 1.4 % 03/24/2023 8:21 PM EDT [facility] Comment:Automated count of m etamyelocytes, myelocytes and promyelocytes. IG >1% represents a left shift and provides an early indication of an infection or inflammatory process. Lymph Percent 28.7 % 03/24/2023 8:21 PM EDT [facility] [place] Percent 9.0 % 03/24/2023 8:21 PM EDT [facility] Eos Percent 1.9 % 03/24/2023 8:21 PM EDT [facility] Baso Percent 0.6 % 03/24/2023 8:21 PM EDT [facility], [facility] Neut # 7.1(H) 1.6 - 6.1 x10(3)/[facility] 03/24/2023 8:21 PM EDT [facility] Comment:Neutrophils equals s egs plus bands IMMGRAN# 0.2(H) 0.0 - 0.1 x10(3)/[facility] 03/24/2023 8:21 PM EDT [facility] Comment:Automated count of m etamyelocytes, myelocytes and promyelocytes. An absolute IG <0.1 is reported as 0.0. Lymph # 3.5 1.2 - 3.9 x10(3)/[facility] 03/24/2023 8:21 PM EDT [facility] [place] # 1.1(H) 0.3 - 0.9 x10(3)/[facility] 03/24/2023 8:21 PM EDT [facility] Eos# 0.2 0.0 - 0.5 x10(3)/[facility] 03/24/2023 8:21 PM EDT [facility], [facility] Baso # 0.1 0.0 - 0.1 x10(3)/[facility] 03/24/2023 8:21 PM EDT [facility] Blood VENOUS BLOOD / Unknown Venipuncture / Unknown 03/24/2023 12:35 PM EDT 03/24/2023 12:35 PM EDT us Jessica Cortes MD HEMATOLOGY ORDERABLES Fin al Result [facility] [employer] [facility] [address] [facility] , [place] [address] * (ABNORMAL) C-REACTIVE PROTEIN (03/24/2023 12:35 PM EDT) [facility] CRP 24.33(H) <=5.00 mg/L 03/24/2023 9:00 PM EDT [facility] [employer] [facility] Blood VENOUS BLOOD / Unknown Venipuncture / Unknown 03/24/2023 12:35 PM EDT 03/24/2023 12:35 PM EDT us Jessica Cortes MD CHEMISTRY ORDERABLES Siobhan l Result Performing Organization Address [facility]/ZIP Co de Phone Number [facility] [employer] [facility] [address] , [place] [address] * SEDIMENTATION RATE AUTOMATED (03/24/2023 12:35 PM EDT) [facility] Sed Rate 30 0 - 30 mm/hr 03/24/2023 8:21 PM EDT [facility] Blood VENOUS BLOOD / Unknown Venipuncture / Unknown 03/24/2023 12:35 PM EDT 03/24/2023 12:35 PM EDT us Jessica Cortes MD HEMATOLOGY ORDERABLES Fin al Result [facility] [address] [place] [address] * QUANTIFERON TB GOLD (03/24/2023 12:35 PM EDT) [facility] Quantiferon-TB Gold in Tube Negative Negative 03/25/2023 5:50 PM EDT [facility] [employer], [facility] Quantiferon Mitogen minus NIL 9.9524 IU/mL 03/25/2023 5:50 PM EDT [facility] [employer], [facility] Quantiferon NIL 0.0476 IU/mL 5:50 PM EDT [facility] [place], [facility] QUANTIFERON TB1 MINUS NIL 0.0186 IU/mL 03/25/2023 5:50 PM EDT [facility] [employer] [facility] QUANTIFERON TB2 MINUS NIL 0.0335 IU/mL 03/25/2023 5:50 PM EDT [facility] [employer] [facility] Blood VENOUS BLOOD / Unknown Venipuncture / Unknown 03/24/2023 12:35 PM EDT 03/24/2023 12:35 PM EDT Narrative [facility] [employer] [facility] - 03/25/2023 5:50 PM EDT Interferon gamma [...] Cortes MD IMMUNOLOGY ORDERABLES Fin al Result [facility] [employer] [address] , [address] [place] [id number] documented in this encounter Visit Diagnoses Diagnosis [...] tuberculosis Antiphospholipid syndrome (HCC) Primary hypercoagulable state Chronic pain of both knees documented in this encounter Discontinued Medications Medication Sig Discontinue Reason Start Date End Da te methotrexate sodium 25 mg/mL Inj SolutionIndications: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 Reorder 06/28/2022 03/24/2023 documented as of this encounter Care Teams Director Career Relationship Specialty Start Date End Date Julisa Kerr MD [address] [place] [address] PCP - General 02/22/11 Jessica Cortes MD [address] [address] Internal Medicine-Rheumatology 04/26/16 Susana Garay MD [address] [place] [id number] Medical Oncologist Internal Medicine-Hematology and Oncology 10/14/22 documented as of this encounter
--- OUTSIDE RECORDS SUMMARY | 2024-08-22 21:42 | XMS_ITS | Encounter Summary ---
Author Organization [place] [address] Care Team Providers Care Traveling Engineer Name Role Phone Julisa Kerr MD Primary Care Provider [phone] Jessica Cortes MD Unavailable [phone] Susana Garay MD Unavailable [phone] Reason for Visit * Reason Comments Pharmacy Rheumatology Management Simponi Encounter Details Date Type Department Care Team (Latest Contact Info) Description 01/31/2023 Specialty Pharmacy [facility] [address] [phone] Rosibel Melo CPhT Pharmacy Rheumatology Management (Simponi) Social History [...] in this encounter Progress Notes * Rosibel Melo CPhT - 01/31/2023 9:55 AM EDT [facility] Simponi is refill too soon till 02/01 * Angela Ledbetter CPhT - 01/31/2023 9:55 AM EDT Specialty Pharmacy Refill Coordination Note Yuliet Trevino is a 52 y.o. female contacted today regarding refills of her Simponi. Medication to be delivered by [facility] on 02/07. Spoke with patient. pt not clinically followed documented in this encounter Plan of Treatment Upcoming Encounters Date Type Department Care Team (Late st Contact Info) Description 08/31/2024 8:30 AM EST Appointment [address] [address] [place] [address] 10/25/2024 10:45 AM EST Office Visit [facility] [address] [facility] [address] [place] [phone] Jessica Cortes MD 651 [facility] 19 [place] [address] 01/25/2025 9:00 AM EDT Appointment [address] [place] [address] 05/09/2025 11:00 AM EDT [address]ointment [address] [place] [place] [address] 05/09/2025 11:15 AM EDT Appointment [address] [place] [address] Susana Garay MD [address] [facility] [address] [place] [address] documented as of this encounter Goals Goal Patient Goal Type Associated Problems Recent Progress Patient-Stated? Author Maintain a healthy diet, exercise regularly and maintain an ideal body weight General Porsche Ashley, RN documented as of this encounter Visit Diagnoses Not on filedocumented in this encounter Care Teams Traveling Engineer Relationship Specialty Start Date End Date Julisa Kerr MD [address] [place] [address] PCP - General 02/22/11 Jessica Cortes MD [address] [place] [address] 19 [place], [place] [id number] Internal Medicine-Rheumatology 04/26/16 Susana Garay MD [address] [place] [address] [place] [address] Medical Oncologist Internal Medicine-Hematology and Oncology 10/14/22 documented as of this encounter
--- OUTSIDE RECORDS SUMMARY | 2024-08-22 21:43 | XMS_ITS | Encounter Summary ---
Author Organization [facility] [place] [address] Care Team Providers Care Death Surveys Coder Name Role Phone Julisa Kerr MD Primary Care Provider [phone] Jessica Cortes MD Unavailable [phone] Susana Garay MD Unavailable [phone] Encounter Details Date Type Department Care Team (Latest Contact Info) Description 12/09/2022 Travel Social History Tobacco Use Types Packs/Day [...] suspected to have Coronavirus/COVID-19? No / Unsure 11/28/2022 2:43 PM EST documented as of this encounter Functional Status [...] Info) Description 08/31/2024 8:30 AM EST [address]ment [address] [address] 10/25/2024 10:45 AM EST Office Visit [facility] [address] [facility] [address] [place] [address] Jessica Cortes MD 651 [facility] Building 19 [place] [address] 01/25/2025 9:00 AM EDT Appointment [address] [address] [place] [address] 05/09/2025 11:00 AM EDT Appointment [address] [address] [place] [address] 05/09/2025 11:15 AM EDT Appointment [address] [place] [address] Susana Garay MD [address] [place] [address] [place] [address] documented as of this encounter Goals Goal Patient Goal Type Associated Problems Recent Progress Patient-Stated? Author Maintain a healthy diet, exercise regularly and maintain an ideal body weight General Porsche Ashley, RN documented as of this encounter Visit Diagnoses Not on filedocumented in this encounter Care Teams Death Surveys Coder Relationship Specialty Start Date End Date Julisa Kerr MD 100 [place] [address] PCP - General 02/22/11 Jessica Cortes MD [address] [place] [address] Internal Medicine-Rheumatology 04/26/16 Susana Garay MD [address] [facility] [place] [address] Medical Oncologist Internal Medicine-Hematology and Oncology 10/14/22 documented as of this encounter
--- OUTSIDE RECORDS SUMMARY | 2024-08-22 21:43 | XMS_ITS | Encounter Summary ---
Author Organization [place] [address] Care Team Providers Care Equipment Hire Manager Name Role Phone Julisa Kerr MD Primary Care Provider [phone] Jessica Cortes MD Unavailable [phone] Susana Garay MD Unavailable [phone] Reason for Visit * Reason Onset Date Comments Central Order Completion Outreach 11/21/2022 Mammogram Encounter Details Date Type Department Care Team (Late st Contact Info) Description 11/21/2022 Patient Outreach [facility] [address] [place] [address] Julisa Kerr MD 100 [place] [address] Central Order Completion Outreach (Mammogram) Social History Tobacco Use Types Packs/Day Years [...] documented in this encounter Progress Notes * Lindsey Yuen RN - 12/12/2022 11:32 AM EDT SEP Order Completion Outcome Tracking Contact Attempt:: Final Mammogram Outcome:: Screening Scheduled (12/24/2022[facility]) * Angela Reed RN - 12/09/2022 4:22 PM EDT SEP Order Completion Outcome Tracking Contact Attempt:: Final Mammogram Outcome:: No Answer, Left Voicemail to Return Call at [phone], [employer] Message * Lindsey Yuen, ROLANDO - 11/21/2022 11:53 AM EST SEP Order Completion Outcome Tracking Contact Attempt:: First Mammogram Outcome:: Screening Scheduled (12/02/2022- [facility]) documented in this encounter Plan of Treatment Upcoming Encounters Date Type Department Care Team (Late st Contact Info) Description 08/31/2024 8:30 AM EST Appointment [facility] [address] [place] [address] 10/25/2024 10:45 AM EST Office Visit [facility] [address] [place] [address] Jessica Cortes MD [address] 19 [place] [address] 01/25/2025 9:00 AM EDT Appointment [address] [place] [address] 05/09/2025 11:00 AM EDT Appointment [address] [place] [address] 05/09/2025 11:15 AM EDT Appointment [address] [place] [address] Susana Garay MD [address] [place] [address] [place] [address] documented as of this encounter Goals Goal Patient Goal Type Associated Problems Recent Progress Patient-Stated? Author Maintain a healthy diet, exercise regularly and maintain an ideal body weight Porsche Diaz RN documented as of this encounter Visit Diagnoses Diagnosis Screening mammogram for high-risk patient- Primary documented in this encounter Additional Health Concerns Infection Onset Date Last Indicated Resolved Time COVID-19 11/04/2022 11/04/2022 11/24/2022 10:1 2 PM EST documented as of this encounter Care Teams Equipment Hire Manager Relationship Specialty Start Date End Date Julisa Kerr MD [address] [place] [id number] PCP - General 02/22/11 Jessica Cortes MD 651 [facility] 19 [place] [address] Internal Medicine-Rheumatology 04/26/16 Susana Garay MD [address] [place] [address] Medical Oncologist Internal Medicine-Hematology and Oncology 10/14/22 documented as of this encounter
--- OUTSIDE RECORDS SUMMARY | 2024-08-22 21:43 | XMS_ITS | Encounter Summary ---
Author Organization [place] [address] Care Team Providers Care Sign Hanger Supervisor Name Role Phone Julisa Kerr MD Primary Care Provider [phone] Jessica Cortes MD Unavailable [phone] Susana Garay MD Unavailable [phone] Encounter Details Date Type Department Care Team (Latest Contact Info) Description 12/17/2022 11:39 AM EDT - 12/17/2022 11:59 PM EDT Hospital Encounter GRT XRAY [address] [facility] [place] [address] Chronic pain of right knee Discharge Disposition: Home or Self Care Social [...] TABLET BY MOUTH EVERY DAY 30 Tablet 12/05/2022 01/06/2023 documented as of this encounter Discharge Disposition Disposition Code Departure Means Destination Home or Self Care documented in this encounter Plan of Treatment Upcoming Encounters Date Type Department Care Team (Late st Contact Info) Description 08/31/2024 8:30 AM EST Appointment [facility] [address] [place] [address] 10/25/2024 10:45 AM EST Office Visit [facility] [address] [place] [address] Jessica Cortes MD [address] [facility] Building 19 [place] [address] 01/25/2025 9:00 AM EDT Appointment [address] [address] [place] [address] 05/09/2025 11:00 AM EDT Appointment [address] [address] [place] [address] 05/09/2025 11:15 AM EDT Appointment [address] [place] [address] Susana Garay MD [address] [place] [address] documented as of this encounter Goals Goal Patient Goal Type Associated Problems Recent Progress Patient-Stated? 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 RN documented as of this encounter Procedures Procedure Name Priority Date/Time Associated Diagnosis Comments XR KNEE RIGHT AP LATERAL AND AXIAL Routine 12/17/2022 12:11 PM EDT Chronic pain of right knee documented in this encounter Results * XR KNEE RIGHT AP LATERAL AND AXIAL (12/17/2022 12:11 PM EDT) Anatomical Region Laterality Modality Knee Radiographic Fallon ging 12/17/2022 12:1 1 PM EDT Impressions 12/17/2022 12:22 PM EDT 1. Joint effusion. No fracture. 2. Mild degenerative joint disease. - Note: Radiology results need to be interpreted within a comprehensive clinical context. ??If you have questions about the radiology report, please contact the office of the ordering clinician. Narrative 12/17/2022 12:22 PM EDT XR KNEE RIGHT AP LATERAL AND AXIAL, ??12/17/2022 12:11 PM CLINICAL HISTORY: ??M25.561-Pain in right gndj-XOJ-35-CM G89.29-Other chronic vckh-OXA-22-CM COMPARISON: ??None. PROCEDURE COMMENTS: XR KNEE RIGHT AP LATERAL AND AXIAL FINDINGS: No fracture or dislocation. Fullness suprapatellar bursa consistent with joint effusion. Mild degenerative change noted with greatest involvement of the medial compartment. Procedure Note Amando Locke MD - 12/17/2022 XR KNEE RIGHT AP LATERAL AND AXIAL, 12/17/2022 12:11 PM CLINICAL HISTORY: M25.561-Pain in right gljg-BYY-23-CM G89.29-Other chronic emwo-BRN-24-CM COMPARISON: None. PROCEDURE COMMENTS: XR KNEE RIGHT AP LATERAL AND AXIAL FINDINGS: No fracture or dislocation. Fullness suprapatellar bursa consistent withjoint effusion. Mild degenerative change noted with greatest involvement of the medial compartment. IMPRESSION: 1. Joint effusion. No fracture. 2. Mild degenerative joint disease. - Note: Radiology results need to be interpreted within a comprehensiveclinical context. If you have questions about the radiology report, please contactthe office of the ordering clinician. us Thierno Toth MD IM DIAGNOSTIC IMAGING ORDERABLES Final Result documented in this encounter Visit Diagnoses Diagnosis Chronic pain of right knee documented in this encounter Care Teams Sign Hanger Supervisor Relationship Specialty Start Date End Date Julisa Kerr MD 100 [place] [address] PCP - General 02/22/11 Jessica Cortes MD 1 [facility] 19 [place] [address] Internal Medicine-Rheumatology 04/26/16 Susana Garay MD [address] [place] [address] [place] [address] Medical Oncologist Internal Medicine-Hematology and Oncology 10/14/22 documented as of this encounter
--- OUTSIDE RECORDS SUMMARY | 2024-08-22 21:43 | XMS_ITS | Encounter Summary ---
Author Organization [place] [address] Care Team Providers Care Lead Pony Rider Name Role Phone Julisa Kerr MD Primary Care Provider [phone] Jessica Cortes MD Unavailable [phone] Susana Garay MD Unavailable [phone] Encounter Details Date Type Department Care Team (Latest Contact Info) Description 11/04/2022 12:55 PM EST - 11/04/2022 11:59 PM EST Hospital Encounter [facility] 238 [place] [address] Rheumatoid arthritis involving multiple sites [...] suspected to have Coronavirus/COVID-19? No / Unsure 11/04/2022 12:54 PM EST documented as of this encounter [...] 1 TABLET BY MOUTH TWICE A DAY 10 Tablet 10/03/2022 11/25/2022 leflunomide (ARAVA) 10 mg Oral TabletIndications :Rheumatoid arthritis involving multiple sites with positive rheumatoid factor (HCC) TAKE 1 TABLET BY MOUTH EVERY DAY 30 Tablet 11/06/2022 12/05/2022 leflunomide (ARAVA) 10 mg Oral TabletIndications :Rheumatoid arthritis involving multiple sites with positive rheumatoid factor (HCC) TAKE 1 TABLET BY MOUTH EVERY DAY 30 Tablet 09/26/2022 11/06/2022 documented as of this encounter Discharge Disposition Disposition Code Departure Means Destination Home or Self Care documented in this encounter Plan of Treatment Upcoming Encounters Date Type Department Care Team (Late st Contact Info) Description 08/31/2024 8:30 AM EST Appointment [address] [address] [place] [address] 10/25/2024 10:45 AM EST Office Visit [facility] [address] [place] [address] Jessica Cortes MD [address] 19 [place] [address] 01/25/2025 9:00 AM EDT Appointment [address] [address] [place] [address] 05/09/2025 11:00 AM EDT Appointment [address] [address] [place] [address] 05/09/2025 11:15 AM EDT Appointment [address] [address] [place] [address] Susana Garay MD [address] [place] [address] [place] [address] documented as of this encounter Goals Goal Patient Goal Type Associated Problems Recent Progress Patient-Stated? 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 RN documented as of this encounter Procedures Procedure Name Priority Date/Time Associated Diagnosis Comments SEDIMENTATION RATE AUTOMATED Routine 11/04/2022 12:58 PM EST Rheumatoid arthritis involving multiple sites with positive rheumatoid factor (HCC) Immunocompromised patient (HCC) Therapeutic drug monitoring CBC WITH DIFF Routine 11/04/2022 12:58 PM EST Rheumatoid arthritis involving multiple sites with positive rheumatoid factor (HCC) Immunocompromised patient (HCC) Therapeutic drug monitoring C-REACTIVE PROTEIN Routine 11/04/2022 12 :58 PM EST Rheumatoid arthritis involving multiple sites with positive rheumatoid factor (HCC) Immunocompromised patient (HCC) Therapeutic drug monitoring COMPREHENSIVE METABOLIC PANEL Routine 11/04/2022 12:58 PM EST Rheumatoid arthritis involving multiple sites with positive rheumatoid factor (HCC) Immunocompromised patient (HCC) Therapeutic drug monitoring documented in this encounter Results * (ABNORMAL) SEDIMENTATION RATE AUTOMATED (11/04/2022 12:58 PM EST) Pathologist [facility] Sed Rate 76(H) 0 - 30 mm/hr 11/04/2022 7:47 PM EST [facility] Blood VENOUS BLOOD / Unknown Venipuncture / Unknown 11/04/2022 12:58 PM EST 11/04/2022 12:58 PM EST us Jessica Cortes MD HEMATOLOGY ORDERABLES Fin al Result [facility] 1 [facility] , [place] [address] * (ABNORMAL) CBC WITH DIFF (11/04/2022 12:58 PM EST) Pathologist [facility] WBC 8.5 3.7 - 10.3 x10(3)/mcL 11/04/2022 7:47 PM EST [facility] RBC 5.00 3.90 - 5.20 x10(6)/mcL 11/04/2022 7:47 PM EST [facility] Hgb 13.3 11.2 - 15.7 g/dL 11/04/2022 7:47 PM EST [facility] Hct 43.8 34.0 - 45.0 % 11/04/2022 7:47 PM EST [facility] MCV 87.6 80.0 - 100.0 fL 11/04/2022 7:47 PM EST [facility] MCH 26.6 26.0 - 34.0 pg 11/04/2022 7:47 PM EST [facility] MCHC 30.4(L) 30.7 - 35.5 g/dL 11/04/2022 7:47 PM EST [facility] RDW 15.4(H) <=14.9 % 11/04/2022 7:47 PM EST [facility] Platelet 330 155 - 369 x10(3)/mcL 11/04/2022 7:47 PM EST [facility] MPV 10.9 8.8 - 12.5 fL 11/04/2022 7:47 PM EST [facility] Neut Percent 57.3 % 11/04/2022 7:47 PM EST [facility] Comment:Neutrophils equals s egs plus bands Imm Gran% 0.2 % 11/04/2022 7:47 PM EST [facility] Comment:Automated count of m etamyelocytes, myelocytes and promyelocytes. Lymph Percent 24.2 % 11/04/2022 7:47 PM EST [facility] Trigg Percent 14.0 % 11/04/2022 7:47 PM EST [facility] Eos Percent 3.5 % 11/04/2022 7:47 PM EST [facility] Baso Percent 0.8 % 11/04/2022 7:47 PM EST [facility] Neut # 4.9 1.6 - 6.1 x10(3)/mcL 11/04/2022 7:47 PM EST [facility] Comment:Neutrophils equals s egs plus bands IMMGRAN# 0.0 0.0 - 0.1 x10(3)/mcL 11/04/2022 7:[address] [facility] Comment:Automated count of m etamyelocytes, myelocytes and promyelocytes. An absolute IG <0.1 is reported as 0.0. Lymph # 2.1 1.2 - 3.9 x10(3)/mcL 11/04/2022 7:47 PM EST [facility] Trigg # 1.2(H) 0.3 - 0.9 x10(3)/mcL 11/04/2022 7:47 PM EST [facility] Eos# 0.3 0.0 - 0.5 x10(3)/mcL 11/04/2022 7:47 PM EST [facility] Baso # 0.1 0.0 - 0.1 x10(3)/mcL 11/04/2022 7:47 PM EST [facility] Blood VENOUS BLOOD / Unknown Venipuncture / Unknown 11/04/2022 12:58 PM EST 11/04/2022 12:58 PM EST us Jessica Cortes MD HEMATOLOGY ORDERABLES Fin al Result [facility] 1 [facility], [place] [address] * (ABNORMAL) COMPREHENSIVE METABOLIC PANEL (11/04/2022 12:58 PM EST) Sodium 137 136 - 145 mmol/L 11/04/2022 8:34 PM EST [facility] Potassium 3.8 3.5 - 5.0 mmol/L 11/04/2022 8:34 PM EST [facility] Chloride 101 98 - 107 mmol/L 11/04/2022 8:34 PM EST [facility] Total CO2 24 22 - 29 mmol/L 11/04/2022 8:34 PM EST [facility] Anion Gap 12 7 - 16 mmol/L 11/04/2022 8:34 PM EST [facility] Calcium 9.4 8.6 - 10.4 mg/dL 11/04/2022 8:34 PM EST [facility] Glucose Lvl 124(H) 74 - 100 mg/dL 11/04/2022 8:34 PM EST [facility] BUN 6 6 - 20 mg/dL 11/04/2022 8:34 PM EST [facility] Creatinine 0.77 0.51 - 1.30 mg/dL 11/04/2022 8:34 PM EST [facility] Albumin 3.8 3.5 - 5.2 gm/dL 11/04/2022 8:34 PM EST [facility] Total Protein 7.3 6.4 - 8.3 gm/dL 11/04/2022 8:34 PM EST [facility] Bili Total 0.6 0.1 - 1.3 mg/dL 11/04/2022 8:34 PM EST [facility] ALT 18 <=41 U/L 11/04/2022 8:34 PM EST [facility] AST 18 <=40 U/L 11/04/2022 8:34 PM EST [facility] [employer] [place] Alk Phos 138(H) 36 - 123 U/L 11/04/2022 8:34 PM EST [facility] [employer] eGFR (CKD-EPIcr 2020) 92 >=60 mL/min/1.7 3 m2 11/04/2022 8:34 PM EST [facility] Comment:Estimated GFR was ca lculated using the CKD-EPIcr (2020) equation refit without race. The equation is recommended by the National Kidney Foundation - [place] [employer] Neph[employer] Task Force. Blood VENOUS BLOOD / Unknown Venipuncture / Unknown 11/04/2022 12:58 PM EST 11/04/2022 12:58 PM EST Jessica Cortes MD CHEMISTRY ORDERABLES Siobhan l Result Performing Organization Address [facility] Co de Phone Number [facility] [employer] [address] [place] [address] [facility] [address] [place], [place] [id number] * (ABNORMAL) C-REACTIVE PROTEIN (11/04/2022 12:58 PM EST) CRP 46.48(H) <=5.00 mg/L 11/04/2022 8:34 PM EST [email or web address] [employer] Blood VENOUS BLOOD / Unknown Venipuncture / Unknown 11/04/2022 12:58 PM EST 11/04/2022 12:58 PM EST Jessica Cortes MD CHEMISTRY ORDERABLES Siobhan l Result Performing Organization Address [facility] Co de Phone Number [facility] [employer] [place] [phone] documented in this encounter Visit Diagnoses Diagnosis Rheumatoid arthritis involving multiple sites with positive rheumatoid factor (HCC) Immunocompromised patient (HCC) Unspecified immunity deficiency Therapeutic drug monitoring Encounter for therapeutic drug monitoring documented in this encounter Additional Health Concerns Infection Onset Date Last Indicated Resolved Time INFLUENZA 11/04/2022 11/04/2022 11/19/2022 10:1 2 PM EST COVID-19 11/04/2022 11/04/2022 11/24/2022 10:1 2 PM EST documented as of this encounter Care Teams Lead Pony Rider Relationship Specialty Start Date End Date Julisa Kerr MD [address] [place] [address] PCP - General 02/22/11 Jessica Cortes MD [address] [place], [place] [phone] Internal Medicine-Rheumatology 04/26/16 Susana Garay MD [address] [place], [place] [id number] Medical Oncologist Internal Medicine-Hematology and Oncology 10/14/22 documented as of this encounter
--- OUTSIDE RECORDS SUMMARY | 2024-08-22 21:43 | XMS_ITS | Encounter Summary ---
Author Organization [place] [address] Care Team Providers Care Relay Tester Name Role Phone Julisa Kerr MD Primary Care Provider [phone] Jessica Cortes MD Unavailable [phone] Susana Garay MD Unavailable [phone] Encounter Details Date Type Department Care Team (Late st Contact Info) Description 11/18/2022 10:30 AM EST Telemedicine [facility] [address] [place] [address] Thierno Toth MD [address] [place] [address] Pain and swelling of knee, left (Primary Dx) Social History Tobacco Use [...] EDAlbin Brennan MA documented in this encounter Progress Notes * Thierno Toth MD - 11/18/2022 10:30 AM EST Patient presented today for routine care follow-up through a video visit. Patient has reviewed the terms and conditions of service as part of the registration for today's visit. A video visit does not replace a [id number] exam and further services may be necessary. We are conducting her video visit in a private space and this video visit is being conducted in accordance with state telehealth/video visit regulations. HPI: Patient continues to have joint swelling and pain. Prednisone pills helped significantly. Continuesto see rheumatology and take medications as prescribed. Review of Systems Constitutional: Negative for fever. Eyes: Negative for visual disturbance. Respiratory: Negative for cough and shortness of breath. Cardiovascular: Negative for chest pain, palpitations and leg swelling. Gastrointestinal: Negative for abdominal pain, constipation and diarrhea. Genitourinary: Negative for difficulty urinating. Musculoskeletal: Positive for arthralgias and joint swelling. Skin: Negative for rash. Neurological: Negative for dizziness, light-headedness and headaches. Exam: Constitutional: NAD, appropriately groomed. Appears comfortable. [...] Diagnoses and all orders for this visit: Pain and swelling of knee, left Nurse visit DM - 120 , follow up with rheum. documented in this encounter Plan of Treatment Upcoming Encounters Date Type Department Care Team (Late st Contact Info) Description 08/31/2024 8:30 AM EST [address]ment [address] [place] [address] 10/25/2024 10:45 AM EST Office Visit [facility] [address] [facility] [address] [place] [address] Jessica Cortes MD [address] [place] [address] [address] [place] [address] 01/25/2025 9:00 AM EDT Appointment [place] [address] [place] [address] 05/09/2025 11:00 AM EDT Appointment [place] [address] [place] [address] 05/09/2025 11:15 AM EDT [address]ointment [address] [place] [address] Susana Garay MD [address] [place] [address] documented as of this encounter Goals Goal Patient Goal Type Associated Problems Recent Progress Patient-Stated? Author Maintain a healthy diet, exercise regularly and maintain an ideal body weight General Porsche Ashley, RN documented as of this encounter Visit Diagnoses Diagnosis Pain and swelling of knee, left- Primary documented in this encounter Additional Health Concerns Infection Onset Date Last Indicated Resolved Time INFLUENZA 11/04/2022 11/04/2022 11/19/2022 10:1 2 PM EST COVID-19 11/04/2022 11/04/2022 11/24/2022 10:1 2 PM EST documented as of this encounter Care Teams Relay Tester Relationship Specialty Start Date End Date Julisa Kerr MD [address] [place] [address] PCP - General 02/22/11 Jessica Cortes MD [address] [address] Internal Medicine-Rheumatology 04/26/16 Susana Garay MD [address] [place] [place] [address] Medical Oncologist Internal Medicine-Hematology and Oncology 10/14/22 documented as of this encounter
--- OUTSIDE RECORDS SUMMARY | 2024-08-22 21:43 | XMS_ITS | Encounter Summary ---
Author Organization [place] [address] Care Team Providers Care Senior Naval Parachutist Name Role Phone Julisa Kerr MD Primary Care Provider [phone] Jessica Cortes MD Unavailable [phone] Susana Garay MD Unavailable [phone] Reason for Visit * Reason Comments Follow-up Deep Vein Thrombosis Dizziness Pt. States that she has frequent dizzy spells. 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 No / Unsure 10/15/2022 11:10 AM EST documented as of this encounter Last Filed Vital Signs Vital Sign Reading Time Taken Comments Blood Pressure 125/88 10/15/2022 12:20 PM EST Pulse 115 10/15/2022 12:20 PM EST Temperature 37.2 ??C (99 ??F) 10/15/2022 12:20 PM EST Respiratory Rate 24 10/15/2022 12:20 PM EST Oxygen Saturation 97% 10/15/2022 12:20 PM EST Inhaled Oxygen Concentration - - Weight 62.2 kg (137 lb 1.6 oz) 10/15/2022 12:20 PM EST Height 157.5 cm (5' 2 ) 10/15/2022 12:20 PM EST Body Mass Index 25.08 10/15/2022 12:20 PM EST documented in this encounter Functional [...] EVERY MONTH 1 mL 11 02/12/2022 02/17/2023 diclofenac (VOLTAREN) 75 mg Oral Tablet, Delayed Release (E.C.)Indications :Rheumatoid arthritis involving multiple sites with positive rheumatoid factor (HCC) TAKE 1 TABLET BY MOUTH TWICE A DAY 60 Tablet 09/26/2022 11/04/2022 ELIQUIS 5 mg Oral Tablet TAKE 1 [...] Progress Notes * Susana Garay MD - 10/15/2022 11:45 AM EST Images from the original note were not included. Patient: Yuliet Trevino CSN: [id number] Date of : 1970 Age: 52 y.o. Date of Service: 10/15/2022 HEMATOLOGY/ONCOLOGY FOLLOW UP VISIT Primary Oncologist: Susana [...] today for Chief Complaint Patient presents with ??? Follow-up ??? Deep Vein Thrombosis ??? Dizziness Pt. States that she has frequent dizzy spells. Presents today for f/u and discussion of antiphospholipid Ab testing results. Remains on NOAC w/o issue. PHYSICAL EXAM: Vitals: 10/15/22 1220 BP: 125/88 Pulse: 115 Resp: (!) 24 Temp: 99 ??F (37.2 ??C) SpO2: 97% Wt Readings from Last 3 Encounters: 10/15/22 137 lb 1.6 oz (62.2 kg) 07/27/22 132 lb (59.9 kg) 07/23/22 132 lb (59.9 kg) ECO Physical Exam Constitutional: General: She is not in acute distress. Pulmonary: Effort: Pulmonary effort is normal. No respiratory distress. Neurological: Mental Status: She is alert and oriented to person, place, and time. Psychiatric: Mood and Affect: Mood and affect normal. MEDICAL DATA REVIEW: Medication, Allergies, Labs, Images, Path Reviewed. 06/06/22 13:20 07/08/22 16:25 10/15/22 11:21 Cardiolipin IgG 18 (H) <10 21 (H) Cardiolipin IgM 72 (H) 35 (H) 64 (H) ASSESSMENT & PLAN Yuliet was seen today for follow-up, deep vein thrombosis and dizziness. 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 Pain - None Advance Directives: Living Will and POA: To be arranged Code status: To be addressed. Dispo: Return if symptoms worsen or fail to improve. Thank you for the opportunity to assist in the care of this patient, please feel free to contact meif I can be of any assistance. Susana Garay MD Hematology and Medical Oncology [facility] documented in this encounter Plan of Treatment Upcoming Encounters Date Type Department Care Team (Late st Contact Info) Description 08/31/2024 8:30 AM EST Appointment [place] [address] [place] [address] 10/25/2024 10:45 AM EST Office Visit [facility] [address] [place] [address] Jessica Cortes MD [address] [facility] [address] [place] [id number] 01/25/2025 9:00 AM EDT Appointment [place] [address] [place] [address] 05/09/2025 11:00 AM EDT Appointment [address] [place] [address] 05/09/2025 11:15 AM EDT Appointment [address] [place] [address] Susana Garay MD [address] [place], [place] [id number] documented as of this encounter Goals Goal Patient Goal Type Associated Problems Recent Progress Patient-Stated? Author Maintain a healthy diet, exercise regularly and maintain an ideal body weight General Porsche Ashley RN documented as of this encounter Visit Diagnoses Diagnosis Antiphospholipid syndrome (HCC)- Primary Primary hypercoagulable state History of DVT in adulthood shelter (current) use of anticoagulants Long-term (current) use of anticoagulants documented in this encounter Care Teams Senior Naval Parachutist Relationship Specialty Start Date End Date Julisa Kerr MD [address] [place] [address] PCP - General 02/22/11 Jessica Cortes MD [address] [place] [address] Internal Medicine-Rheumatology 04/26/16 Susana Garay MD [address] [facility] [place] [address] Medical Oncologist Internal Medicine-Hematology and Oncology 10/14/22 documented as of this encounter
--- OUTSIDE RECORDS SUMMARY | 2024-08-22 21:43 | XMS_ITS | Encounter Summary ---
Author Organization [place] [address] Care Team Providers Care Flight Attendant/Inflight Manager Name Role Phone Julisa Kerr MD Primary Care Provider [phone] Jessica Cortes MD Unavailable [phone] Susana Garay MD Unavailable [phone] Reason for Visit * Reason Comments Injections Encounter Details Date Type Department Care Team (Latest Contact Info) Description 11/18/2022 11:00 AM EST Clinical Support [facility] [address] [place] [address] Jackie Vanegas CCMA Pain and swelling of knee, left (Primary [...] 2:17 PM EDT Albni Levy MA * Is the person blind [...] documented in this encounter Progress Notes * Jackie Vanegas CCMA - 11/18/2022 11:00 AM EST Pt presents today for depo 120. Tolerated well. documented in this encounter Plan of Treatment Upcoming Encounters Date Type Department Care Team (Late st Contact Info) Description 08/31/2024 8:30 AM EST Appointment [facility] [address] [place] [address] 10/25/2024 10:45 AM EST Office Visit [facility] [address] [facility] [address] [place] [address] Jessica Cortes MD [address] [facility] [address] [place] [address] 01/25/2025 9:00 AM EDT Appointment [place] [address] [place] [address] 05/09/2025 11:00 AM EDT Appointment [address] [place] [address] 05/09/2025 11:15 AM EDT Appointment [address] [place] [address] Susana Garay MD [address] [place] [address] [place] [address] documented as of this encounter Goals Goal Patient Goal Type Associated Problems Recent Progress Patient-Stated? 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 RN documented as of this encounter Visit Diagnoses Diagnosis Pain and swelling of knee, left- Primary documented in this encounter Administered Medications Inactive Administered Medications - up to 1 most recent administrations Medication Order MAR Action Action Date Dose Rate Site methylPREDNISolone acetate (DEPO-Medrol) injection 120 mg 120 mg, Intramuscular, ONCE, 1 dose, On Fri11/18/22 at 1100, Dx: 1. Pain and swelling of knee, leftIndications:Pain and swelling of knee, left Given 11/18/2022 10:52 AM EST 120 mg Right Upper Outer Quadrant documented in this encounter Additional Health Concerns Infection Onset Date Last Indicated Resolved Time INFLUENZA 11/04/2022 11/04/2022 11/19/2022 10:1 2 PM EST COVID-19 11/04/2022 11/04/2022 11/24/2022 10:1 2 PM EST documented as of this encounter Care Teams Flight Attendant/Inflight Manager Relationship Specialty Start Date End Date Julisa Kerr MD [address] [place], [place] [id number] PCP - General 02/22/11 Jessica Cortes MD [address] [address] Internal Medicine-Rheumatology 04/26/16 Susana Garay MD [address] [place] [address] Medical Oncologist Internal Medicine-Hematology and Oncology 10/14/22 documented as of this encounter
--- OUTSIDE RECORDS SUMMARY | 2024-08-22 21:43 | XMS_ITS | Encounter Summary ---
Author Organization [facility] [place] [address] Care Team Providers Care Vessel Manager Name Role Phone Julisa Kerr MD Primary Care Provider [phone] Jessica Cortes MD Unavailable [phone] Susana Garay MD Unavailable [phone] Encounter Details Date Type Department Care Team (Latest Contact Info) Description 11/04/2022 Travel Social History Tobacco Use Types Packs/Day [...] Info) Description 08/31/2024 8:30 AM EST [address]ment [address] [place] [address] 10/25/2024 10:45 AM EST Office Visit [facility] [address] [facility] [address] [place] [address] Jessica Cortes MD [address] [facility] [address] [place] [address] 01/25/2025 9:00 AM EDT Appointment [place] [address] [place] [address] 05/09/2025 11:00 AM EDT Appointment [place] [address] [place] [address] 05/09/2025 11:15 AM EDT Appointment [address] [place] [address] Susana Garay MD [address] [place] [address] [place] [address] documented as of this encounter Goals Goal Patient Goal Type Associated Problems Recent Progress Patient-Stated? Author Maintain a healthy diet, exercise regularly and maintain an ideal body weight General Porsche Ashley, RN documented as of this encounter Visit Diagnoses Not on filedocumented in this encounter Additional Health Concerns Infection Onset Date Last Indicated Resolved Time INFLUENZA 11/04/2022 11/04/2022 11/19/2022 10:1 2 PM EST COVID-19 11/04/2022 11/04/2022 11/24/2022 10:1 2 PM EST documented as of this encounter Care Teams Vessel Manager Relationship Specialty Start Date End Date Julisa Kerr MD [address] [place] [address] PCP - General 02/22/11 Jessica Cortes MD [address] [place] [address] Internal Medicine-Rheumatology 04/26/16 Susana Garay MD [address] [facility] [place] [address] Medical Oncologist Internal Medicine-Hematology and Oncology 10/14/22 documented as of this encounter
--- OUTSIDE RECORDS SUMMARY | 2024-08-22 21:43 | XMS_ITS | Encounter Summary ---
Author Organization [place] [address] Care Team Providers Care Clinical Trials Systems Administrator Name Role Phone Julisa Kerr MD Primary Care Provider [phone] Jessica Cortes MD Unavailable [phone] Susana Garay MD Unavailable [phone] Reason for Visit * Reason Comments Follow-up Rheumatoid Arthritis Osteoporosis Knee Pain Encounter Details Date Type Department Care Team (Latest Contact Info) Description 12/09/2022 10:45 AM EDT Telemedicine SEP Rheumatology [facility] [address] [address] Jessiac Cortes MD [address] [phone] Rheumatoid arthritis involving multiple sites with positive rheumatoid factor (HCC) (Primary Dx); Raynaud's phenomenon without gangrene; Positive BRET (antinuclear antibody); Sicca syndrome (HCC); Neck pain; Age-related osteoporosis without current pathological fracture; Postmenopausal state; Immunocompromised patient (HCC); Trochanteric bursitis of left hip; Therapeutic drug monitoring; Tuberculosis screening; Acute deep vein thrombosis (DVT) of proximal vein of right lower extremity (HCC); Anticardiolipin antibody positive; Chronic pain of both knees Social History Tobacco [...] Albin Mcnamara MA documented in this encounter Ordered Prescriptions Prescription Sig Dispense Quantity Refills Last Filled Start Date End Date alendronate (FOSAMAX) 70 mg Oral TabletIndications: Age-related osteoporosis without current pathological fracture Take 1 Tablet by mouth every 7 days. Take in AM with a glass of water and do not take anything else by mouth or lie down for the next 30 min. 4 Tablet 11 12/09/2022 3 documented in this encounter Progress Notes * Jessica Cortes MD - 12/09/2022 10:45 AM EDT Subjective Subjective: Patient ID: Yuliet Trevino is a 52 y.o. female. No chief complaint on file. HPI The patient comes in for follow up regarding RA. Symptoms started in 2002. Seen by Hip Hop Artist, Dr. Astorga. She was seen in [facility] but have not seen her in 6 [...] mild pain- 3/10, mild swelling. Today's visit: Both knees have been bothering her a lot, she got an overall steroid shot at PCP office. Knees swell some. Hands, wrist have been feeling much better Simponi to 100 mg q month Joint swelling: mainly in the knees, wrists have not been as swollen as they used to Dry eyes - not too bad. Uses [...] Motrin, Naproxen, Celebrex, Lodine did not help, MTX helped some, Enbrel 50 mg sq q week (since 2012- till 01/2018)- ineffective, Humira- rash, Remicade- ineffective, Orencia 125 mg SQ weekly- started 04/2018, d/c'ed 10/2018, Actemra started 12/2018, stopped 01/2019- caused mouth sores and blisters on the upper arms, Xeljanz caused swelling of the lips, itching, Kevzara 200 mg q 2 weeks ( started 12/2019- stopped 03/2020)- nausea Patients past medical, family and social histories were reviewed and updated. There were no changesexcept as noted. Allergies Allergen Reactions ??? Orencia [Abatacept (With Maltose)] Swelling and Other (See Comments) Facial tingling/ numbness ??? Enbrel [Etanercept] Itching ??? Humira [Adalimumab] Itching ??? Mobic [Meloxicam] Hives ??? Xeljanz [Tofacitinib] Itching Current Outpatient Medications on File Prior to Visit Medication Sig Dispense Refill ??? azithromycin (ZITHROMAX) 250 mg Oral Tablet Take 2 tablets (500 mg) on Day 1, followed by 1 tablet (250 mg) once daily on Days 2 through 5. 6 Tablet 0 ??? cyanocobalamin 1,000 mcg/mL Inj Solution INJECT 1ML INTO THE MUSCLE EVERY MONTH 1 mL 11 ??? diclofenac (VOLTAREN) 75 mg Oral Tablet, Delayed Release (E.C.) TAKE 1 TABLET BY MOUTH TWICE A DAY 60 Tablet 1 ??? ELIQUIS 5 mg Oral Tablet TAKE 1 TABLET BY MOUTH TWICE A DAY 90 Tablet 2 ??? folic acid (FOLVITE) 1 mg Oral Tablet TAKE 1 TABLET BY MOUTH EVERY DAY 30 Tablet 11 ??? golimumab (SIMPONI) 100 mg/mL SubQ Pen Injector Inject 1 pen under the skin every 30 days. 1 mL5 ??? leflunomide (ARAVA) 10 mg Oral Tablet TAKE 1 TABLET BY MOUTH EVERY DAY 30 Tablet 0 ??? methotrexate sodium 25 mg/mL Inj Solution Subcutaneous (Inject under the skin) 0.6 mL once a week. 4 mL 1 ??? predniSONE (DELTASONE) 20 mg Oral Tablet Take 2 tablets daily for 4 days, then 1 tablet for 4 days 12 Tablet 0 ??? PROAIR HFA 90 mcg/actuation Inhl HFA Aerosol Inhaler INHALE 2 PUFFS BY MOUTH EVERY 6 HOURS NEEDED FOR WHEEZE 8.5 Each 3 No current facility-administered medications on file prior to visit. Review of Systems Constitutional: Positive for fatigue. Weight gain HENT: Positive for congestion. Dry mouth Respiratory: Positive for cough. Gastrointestinal: Positive for nausea (from Plaquenil). GERD Musculoskeletal: Positive for arthralgias, back pain, joint swelling, myalgias and neck pain. Psychiatric/Behavioral: Positive for sleep disturbance. Depression All other systems reviewed and are negative. Objective Objective: There were no vitals filed for this visit.There is no height or weight on file to calculate BMI. Physical Exam Constitutional: Appearance: She is well-developed. HENT: Head: Normocephalic and atraumatic. Musculoskeletal: Comments: Synovitis in the left wrist. Otherwise no synovitis visible through the video. Neurological: Mental Status: She is alert. Psychiatric: Mood and Affect: Mood normal. Lab Results Component Value Date WBC 9.6 11/28/2022 HGB 13.5 11/28/2022 HCT 43.8 11/28/2022 MCV 86.4 11/28/2022 PLT 398 (H) 11/28/2022 Chemistry Component Value Date/Time NA 141 11/28/2022 1445 NA 138 11/23/2019 0000 K 4.3 11/28/2022 1445 K 4.6 11/23/2019 0000 CL 104 11/28/2022 1445 CL 102 11/23/2019 0000 CO2 26 11/28/2022 1445 CO2 27 11/23/2019 0000 BUN 12 11/28/2022 1445 BUN 11 11/23/2019 0000 CREATININE 0.78 11/28/2022 1445 CREATININE 0.7 11/23/2019 0000 GLU 90 11/28/2022 1445 GLU 103 (H) 07/01/2017 1532 Component Value Date/Time CALCIUM 9.5 11/28/2022 1445 CALCIUM 9.60 11/23/2019 0000 ALKPHOS 128 (H) 11/28/2022 1445 ALKPHOS 112 11/23/2019 0000 AST 19 11/28/2022 1445 AST 20 11/23/2019 0000 ALT 11 11/28/2022 1445 ALT 9 11/23/2019 0000 BILITOT 0.2 11/23/2019 0000 Lab Results Component Value Date CRP 11.66 (H) 11/28/2022 Lab Results Component Value Date SEDRATE 24 11/28/2022 XR KNEE LEFT AP LAT INT EXT [...] No acute osseous findings. Assessment and Plan: Diagnoses and all orders for this visit: Rheumatoid arthritis involving multiple sites, with positive rheumatoid factor (HCC) Dx in [address] Astorga in [facility]. Records from [facility] received and reviewed. The patient was seen in 05/11/13 for initial evaluation. Presented with polyarticular joint involvement- large and small joints- shoulders, elbows, knees, wrists, knuckles, toes. Per records she had low titer (+) RF, (-) CCP, (+) BRET centromere pattern > 8.0 with negative SSA/SSB, MACHINE REPAIRER, Scl 70, dsDNA Records indicate she used [...] MTX 15 mg sq q week restarted 05/2022 Simponi 50 mg q month, increased to 100 mg Plaquenil 200 mg twice a day started 06/28/22, lowered to 200 mg daily due to nausea, will stop today. Hepatitis panel checked and negative. Patient should [...] score -2.4 at the right femoral neck Start Fosamax 70 mg weekly. Risks of therapy with bisphosphonates were discussed with patient including risk of gastrointestinal intolerance, osteonecrosis of the jaw and recent reports of atypical subtrochanteric fractures with long-term use. I have also discussed significant benefit of fracture prevention. The patient was advised to take the medication in the morning on an empty stomach with a full glass of water. The patient should remain upright and take nothing by mouth at least 30 minutesafter taking the medication. - alendronate (FOSAMAX) 70 mg Oral Tablet; Take 1 Tablet by mouth every 7 days. Take in AM with a glass of water and do not take anything else by mouth or lie down for the next 30 min. Immunocompromised patient (HCC) Increased risk for infections due to immunosuppression Prevnar 13 given 12/13/16 Pneumovax 23 given 03/17/17 Trochanteric bursitis of the left hip Left bursa tenderness Advised to continue stretches and topical OTC creams Therapeutic drug monitoring Tuberculosis screening TB gold negative 01/23/22 Labs every 6-8 weeks while on MTX and Arava to monitor for toxicities. Labs OK 11/28/22 Acute deep vein thrombosis (DVT) of proximal vein of right lower extremity (HCC) Anticardiolipin antibody positive DVT 04/2022 Elevated d- dimer (+) anti cardiolipin Ab IgM at 72- high positive, persistent Suspect APLS Evaluated by Hem/Onc, Dr. Garay Advised OK to stay of anticoagulation for now but if new clot or (+) LA vs beta 2GP then will need longwall machine operator helper anticoagulation Chronic pain of both knees More pain in both knees Periodic swelling ?RA vs OA since the other joints that were very active due to RA are actually under much better control Advised the patient I would like to aspirate the joint if she has swelling which would provide moreinfo to the etiology of the effusion Return in about 3 months (around 03/11/2023). documented in this encounter Plan of Treatment Upcoming Encounters Date Type Department Care Team (Late st Contact Info) Description 08/31/2024 8:30 AM EST Appointment [facility] [address] [address] [place] [address] 10/25/2024 10:45 AM EST Office Visit [facility] [address] [place] [address] Jessica Cortes MD [address] [place] [address] 01/25/2025 9:00 AM EDT Appointment [address] [address] [place] [address] 05/09/2025 11:00 AM EDT Appointment [address] [address] [place] [address] 05/09/2025 11:15 AM EDT [address]ointment [address] [place] [address] Susana Garay MD [address] [place] [address] [place] [address] documented as of this encounter Goals Goal [...] Tuberculosis screening Screening examination for pulmonary tuberculosis Acute deep vein thrombosis (DVT) of proximal vein of right lower extremity (HCC) Anticardiolipin antibody positive Other and unspecified nonspecific immunological findings Chronic pain of both knees documented in this encounter Care Teams Clinical Trials Systems Administrator Relationship Specialty Start Date End Date Julisa Kerr MD [address] [place] [address] PCP - General 02/22/11 Jessica Cortes MD [address] [place] [address] 19 [place] [address] Internal Medicine-Rheumatology 04/26/16 Susnaa Garay MD [address] [place] [address] Medical Oncologist Internal Medicine-Hematology and Oncology 10/14/22 documented as of this encounter
--- OUTSIDE RECORDS SUMMARY | 2024-08-22 21:43 | XMS_ITS | Encounter Summary ---
Author Organization [place] [address] Care Team Providers Care Digester Hand Name Role Phone Julisa Kerr MD Primary Care Provider [phone] Jessica Cortes MD Unavailable [phone] Susana Garay MD Unavailable [phone] Reason for Visit * Reason Comments Pharmacy Rheumatology Management Simponi Encounter Details Date Type Department Care Team (Latest Contact Info) Description 11/01/2022 Specialty Pharmacy [facility] [address] [phone] Priti Valentine CPhT Pharmacy Rheumatology Management (Simponi) [...] AM EST documented as of this encounter Functional [...] Progress Notes * Priti Valentine CPhT - 11/01/2022 10:47 AM EST Specialty Pharmacy Refill Coordination Note Yuliet Trevino is a 52 y.o. female contacted today regarding refills of her Simponi. Medication to be delivered by [facility] on 11/06. Spoke with patient. * Che Wells RPH - 11/01/2022 10:47 AM EST [facility] - Care Plan and Refill Review Refill questions and refill history verified. Last assessment 02/15/22. No reassessment needed at this time. Che Wells RPH Specialty Pharmacist documented in this encounter Plan of Treatment Upcoming Encounters Date Type Department Care Team (Late st Contact Info) Description 08/31/2024 8:30 AM EST Appointment [address] [address] [place] [address] 10/25/2024 10:45 AM EST Office Visit [facility] [address] [facility] [address] [place] [id number] Jessica Cortes MD 651 [facility] 19 [place] [address] 01/25/2025 9:00 AM EDT Appointment [address] [place] [address] 05/09/2025 11:00 AM EDT Appointment [address] [place] [address] 05/09/2025 11:15 AM EDT [address]ointment [address] [place] [address] Susana Garay MD [address] [place], [place] [id number] documented as of this encounter Goals Goal Patient Goal Type Associated Problems Recent Progress Patient-Stated? 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, RN documented as of this encounter Visit Diagnoses Not on filedocumented in this encounter Care Teams Digester Hand Relationship Specialty Start Date End Date Julisa Kerr MD 100 [place] [address] PCP - General 02/22/11 Jessica Cortes MD [address]51 [facility] [address] [place] [address] Internal Medicine-Rheumatology 04/26/16 Susana Garay MD [address] [facility] [place] [address] Medical Oncologist Internal Medicine-Hematology and Oncology 10/14/22 documented as of this encounter
--- OUTSIDE RECORDS SUMMARY | 2024-08-22 21:43 | XMS_ITS | Encounter Summary ---
Author Organization [place] [address] Care Team Providers Care Direct Care Worker Name Role Phone Julisa Kerr MD Primary Care Provider [phone] Jessica Cortes MD Unavailable [phone] Susana Garay MD Unavailable [phone] Reason for Visit * Reason Comments Joint Swelling Fever Encounter Details Date Type Department Care Team (Late st Contact Info) Description 11/04/2022 2:15 PM EST Office Visit [facility] [address] [place] [address] Thierno Toth MD 100 [place] [address] Acute cough (Primary Dx); COVID-19 virus infection; Pain and swelling of knee, left; Influenza B Social History Tobacco Use Types Packs/Day Years [...] PM EST documented as of this encounter Last Filed Vital Signs Vital Sign Reading Time Taken Comments Blood Pressure 126/74 11/04/2022 2:25 PM EST Pulse - - Temperature 37.8 ??C (100.1 ??F) 11/04/2022 2:[address] Respiratory Rate - - Oxygen Saturation - - Inhaled Oxygen Concentration - - Weight 62.6 kg (138 lb) 11/04/2022 2:25 PM EST Height 157.5 cm (5' 2 ) 11/04/2022 2:25 PM EST Body Mass Index 25.24 11/04/2022 2:25 PM EST documented in this encounter Functional [...] Date azithromycin (ZITHROMAX) 250 mg Oral TabletIndications: COVID-19 virus infection,Influenz a B Take 2 tablets (500 mg) on Day 1, followed by 1 tablet (250 mg) once daily on Days 2 through 5. 6 Tablet 11/04/2022 3 predniSONE (DELTASONE) 20 mg Oral TabletIndications: COVID-19 virus infection,Pain and swelling of knee, left,Influenza B Take 2 tablets daily for 4 days, then 1 tablet for 4 days 12 Tablet 11/04/2022 3 documented in this encounter Progress Notes * Thierno Toth MD - 11/04/2022 2:15 PM EST Vitals: 11/04/22 1425 BP: 126/74 Temp: 100.1 ??F (37.8 ??C) Weight: 138 lb (62.6 kg) Height: 5' 2 (1.575 m) SUBJECTIVE: Chief Complaint Patient presents with ??? Joint Swelling ??? Fever Pt presents today for left knee pain and swelling x 2 days. Fever This is a new problem. Associated symptoms include coughing and headaches. Pertinent negatives include no abdominal pain, chest pain, diarrhea or rash. Mild cough and congestion. Review of Systems Constitutional: Positive for fatigue and fever. HENT: Positive for postnasal drip and rhinorrhea. Eyes: Negative for visual disturbance. Respiratory: Positive for cough. Negative for shortness of breath. Cardiovascular: Negative for chest pain, palpitations and leg swelling. Gastrointestinal: Negative for abdominal pain, constipation and diarrhea. Genitourinary: Negative for difficulty urinating. Skin: Negative for rash. Neurological: Positive for weakness and headaches. Negative for dizziness and light-headedness. OBJECTIVE: Physical Exam Constitutional: Appearance: She is well-developed. HENT: Head: Normocephalic and atraumatic. Right Ear: Tympanic membrane, ear canal and external ear normal. Tympanic membrane is not erythematous or bulging. Left Ear: Tympanic membrane, ear canal and external ear normal. Tympanic membrane is not erythematous or bulging. Eyes: Conjunctiva/sclera: Conjunctivae normal. Cardiovascular: Rate and Rhythm: [...] Neurological: Mental Status: She is alert. Psychiatric: Thought Content: Thought content normal. Results for orders placed or performed in visit on 11/04/22 POCT GIL INFLUENZA A/B Result Value Ref Range Influenza A Antigen Negative Negative Influenza B Antigen Positive (A) Negative POCT GIL SARS ANTIGEN Result Value Ref Range SARS Antigen Positive (A) Negative Lot Number Expiration Date SeriAl # Control Line Assessment Diagnoses and all orders for this visit: Acute cough - POCT GIL INFLUENZA A/B - POCT GIL SARS ANTIGEN COVID-19 virus infection - predniSONE (DELTASONE) 20 mg Oral Tablet; Take 2 tablets daily for 4 days, then 1 tablet for 4 days Dispense: 12 Tablet; Refill: 0 - azithromycin (ZITHROMAX) 250 mg Oral Tablet; Take 2 tablets (500 mg) on Day 1, followed by 1 tablet (250 mg) once daily on Days 2 through 5. Dispense: 6 Tablet; Refill: 0 Pain and swelling of knee, left - predniSONE (DELTASONE) 20 mg Oral Tablet; Take 2 tablets daily for 4 days, then 1 tablet for 4 days Dispense: 12 Tablet; Refill: 0 Influenza B - predniSONE (DELTASONE) 20 mg Oral Tablet; Take 2 tablets daily for 4 days, then 1 tablet for 4 days Dispense: 12 Tablet; Refill: 0 - azithromycin (ZITHROMAX) 250 mg Oral Tablet; Take 2 tablets (500 mg) on Day 1, followed by 1 tablet (250 mg) once daily on Days 2 through 5. Dispense: 6 Tablet; Refill: 0 documented in this encounter Plan of Treatment Upcoming Encounters Date Type Department Care Team (Late st Contact Info) Description 08/31/2024 8:30 AM EST Appointment [facility] [address] [place] [address] 10/25/2024 10:45 AM EST Office Visit [facility] [address] [place] [address] Jessica Cortes MD [address]51 [facility] Building 19 [place] [address] 01/25/2025 9:00 AM EDT Appointment [address] [address] [place] [address] 05/09/2025 11:00 AM EDT Appointment [address] [address] [place] [address] 05/09/2025 11:15 AM EDT Appointment [address] [address] [place] [address] Susana Garay MD [address] [place] [address] [place] [address] documented as of this encounter Goals Goal Patient Goal Type Associated Problems Recent Progress Patient-Stated? 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 RN documented as of this encounter Procedures Procedure Name Priority Date/Time Associated Diagnosis Comments POCT GIL SARS ANTIGEN Routine 11/04/2022 3:08 PM EST Acute cough POCT GIL INFLUENZA A/B Routine 11/04/2022 12:35 PM EST Acute cough documented in this encounter Results * (ABNORMAL) POCT GIL SARS ANTIGEN (11/04/2022 3:08 PM EST) SARS Antigen Positive(A ) Negative SEP OFFICE Lot Number SEP OFFICE Expiration Date SEP OFFICE SeriAl # SEP OFFICE Control Line SEP OFFICE 11/04/2022 3:08 PM EST Thierno Toth MD POINT OF CARE TEST ORDRyan MCKAY Final Result SEP OFFICE * (ABNORMAL) POCT GIL INFLUENZA A/B (11/04/2022 12:35 PM EST) Influenza A Antigen Negative Negative 11/04/2022 3:00 PM EST [facility] Influenza B Antigen Positive(A) Negative 11/04/2022 3:00 PM EST [facility] Swab SPECIMEN FROM NASOPHARYNGEAL STRUCTURE / Unknown 11/04/2022 12:35 PM EST 11/04/2022 3:00 PM EST us Thierno Toth MD POINT OF CARE TEST [place] [address] documented in this encounter Visit Diagnoses Diagnosis Acute cough- Primary COVID-19 virus infection Pain and swelling of knee, left Influenza B Influenza with other respiratory manifestations documented in this encounter Discontinued Medications Medication Sig Discontinue Reason Start Date End Da te hydrOXYchloroQUINE (PLAQUENIL) 200 mg Oral TabletIndications:Rheu matoid arthritis involving multiple sites with positive rheumatoid factor (HCC) Take 1 Tablet by mouth 2 times daily. DELETE- Entered in Error 06/28/2022 11/04/2022 predniSONE (DELTASONE) 10 mg Oral TabletIndications:Rheu matoid arthritis involving multiple sites with positive rheumatoid factor (HCC) Sig: Take 3 tablets daily x 5 days then 2 tablets daily x 5 days then 1 tablet daily x 5 days then stop. DELETE- Entered in Error 10/15/2022 11/04/2022 predniSONE (DELTASONE) 5 mg Oral TabletIndications:Darius a of left ankle,Elbow swelling, right 3 tabs twice a day x 5 days, 2 tabs twice a day x 5 days, 3 tabs daily x 4 days, 2 tabs daily x 4 days, then 1 tab daily x 5 days. DELETE- Entered in Error 08/05/2022 11/04/2022 documented as of this encounter Additional Health Concerns Infection Onset Date Last Indicated Resolved Time INFLUENZA 11/04/2022 11/04/2022 11/19/2022 10:1 2 PM EST COVID-19 11/04/2022 11/04/2022 11/24/2022 10:1 2 PM EST documented as of this encounter Care Teams Direct Care Worker Relationship Specialty Start Date End Date Julisa Kerr MD [address] [phone] PCP - General 02/22/11 Jessica Cortes MD 651 [facility] 19 [place] [address] Internal Medicine-Rheumatology 04/26/16 Susana Garay MD [address] [place] [address] Medical Oncologist Internal Medicine-Hematology and Oncology 10/14/22 documented as of this encounter
--- OUTSIDE RECORDS SUMMARY | 2024-08-22 21:43 | XMS_ITS | Encounter Summary ---
Author Organization [place] [address] Care Team Providers Care Serologist Name Role Phone Julisa Kerr MD Primary Care Provider [phone] Jessica Cortes MD Unavailable [phone] Susana Garay MD Unavailable [phone] Reason for Visit * Reason Onset Date Comments Medication Refill 11/25/2022 Encounter Details Date Type Department Care Team (Late st Contact Info) Description 11/25/2022 Refill [facility] [place] [address] Susana Garay MD [address] [place], [place] [id number] Medication Refill Social History Tobacco Use Types [...] Description 08/31/2024 8:30 AM EST [address]ointment [address] [place] [address] 10/25/2024 10:45 AM EST Office Visit [facility] [address] [facility] [address] [place] [address] Jessica Cortes MD [address] [address] [place] [address] 01/25/2025 9:00 AM EDT [address]ment [address] [place] [place] [address] 05/09/2025 11:00 AM EDT Appointment [facility] [place] [id number] 05/09/2025 11:15 AM EDT Appointment [facility] [place] [id number] Susana Garay MD [address] [facility] [place] [id number] documented as of this encounter Goals Goal Patient Goal Type Associated Problems Recent Progress Patient-Stated? 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, RN documented as of this encounter Visit Diagnoses Not on filedocumented in this encounter Care Teams Serologist Relationship Specialty Start Date End Date Julisa Kerr MD 100 [place], [place] [phone] PCP - General 02/22/11 Jessica Cortes MD 651 [facility] 19 [place] [address] Internal Medicine-Rheumatology 04/26/16 Susana Garay MD [address] [facility] [place] [id number] Medical Oncologist Internal Medicine-Hematology and Oncology 10/14/22 documented as of this encounter
--- OUTSIDE RECORDS SUMMARY | 2024-08-22 21:43 | XMS_ITS | Encounter Summary ---
Author Organization [place] [address] Care Team Providers Care Outside Rigger Name Role Phone Julisa Kerr MD Primary Care Provider [phone] Jessica Cortes MD Unavailable [phone] Reason for Visit * Reason Comments Pharmacy Rheumatology Management Simponi Encounter Details Date Type Department Care Team (Latest Contact Info) Description 10/04/2022 Specialty Pharmacy [facility] [address] [phone] Rosibel Melo CPhT Pharmacy Rheumatology Management (Simponi) [...] Progress Notes * Rosibel Melo CPhT - 10/04/2022 10:04 AM EST Specialty Pharmacy Refill Coordination Note Yuliet Trevino is a 51 y.o. female contacted today regarding refills of her Simponi. No answer, left voicemail to call [phone], option 4. * Rosibel Melo CPhT - 10/04/2022 10:04 AM EST Specialty Pharmacy Refill Coordination Note Yuliet Trevino is a 51 y.o. female contacted today regarding refills of her Simponi. Medication to be delivered by [facility] on 10/11. Spoke with patient. documented in this encounter Plan of Treatment Upcoming Encounters Date Type Department Care Team (Late st Contact Info) Description 08/31/2024 8:30 AM EST Appointment [address] [place] [address] 10/25/2024 10:45 AM EST Office Visit [facility] [address] [facility] [address] [place] [address] Jessica Cortes MD 651 [facility] 19 [place] [address] 01/25/2025 9:00 AM EDT Appointment [address] [place] [address] 05/09/2025 11:00 AM EDT Appointment [address] [place] [address] 05/09/2025 11:15 AM EDT Appointment [address] [place] [address] Susana Garay MD [address] [place], [place] [id number] documented as of this encounter Goals Goal Patient Goal Type Associated Problems Recent Progress Patient-Stated? 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, RN documented as of this encounter Visit Diagnoses Not on filedocumented in this encounter Care Teams Outside Rigger Relationship Specialty Start Date End Date Julisa Kerr MD 100 [place] [address] PCP - General 02/22/11 Jessica Cortes MD 651 [facility] 19 [place] [address] Internal Medicine-Rheumatology 04/26/16 documented as of this encounter
--- OUTSIDE RECORDS SUMMARY | 2024-08-22 21:43 | XMS_ITS | Encounter Summary ---
Author Organization [place] [address] Care Team Providers Care Weaver Apprentice Name Role Phone Julisa Kerr MD Primary Care Provider [phone] Jessica Cortes MD Unavailable [phone] Susana Garay MD Unavailable [phone] Encounter Details Date Type Department Care Team (Latest Contact Info) Description 11/28/2022 2:45 PM EST - 11/28/2022 11:59 PM EST Hospital Encounter [facility] [address] [place] [address] Rheumatoid arthritis involving multiple sites [...] Albin Mcnamara MA documented in this encounter Medications [...] MOUTH EVERY DAY 30 Tablet 11/06/2022 12/05/2022 documented as of this encounter Discharge Disposition Disposition Code Departure Means Destination Home or Self Care documented in this encounter Plan of Treatment Upcoming Encounters Date Type Department Care Team (Late st Contact Info) Description 08/31/2024 8:30 AM EST Appointment [facility] [address] [place] [address] 10/25/2024 10:45 AM EST Office Visit [facility] [address] [place] [phone] Jessica Cortes MD 651 [facility] Building 19 [place] [address] 01/25/2025 9:00 AM EDT Appointment [address] [address] [place] [address] 05/09/2025 11:00 AM EDT Appointment [address] [address] [place] [address] 05/09/2025 11:15 AM EDT Appointment [address] [address] [place] [address] Susana Garay MD [address] [place] [address] [place] [address] documented as of this encounter Goals Goal Patient Goal Type Associated Problems Recent Progress Patient-Stated? Author Maintain a healthy diet, exercise regularly and maintain an ideal body weight General Porsche Ashley RN documented as of this encounter Procedures Procedure Name Priority Date/Time Associated Diagnosis Comments SEDIMENTATION RATE AUTOMATED Routine 11/28/2022 2:45 PM EST Rheumatoid arthritis involving multiple sites with positive rheumatoid factor (HCC) Immunocompromised patient (HCC) Therapeutic drug monitoring CBC WITH DIFF Routine 11/28/2022 2:45 PM EST Rheumatoid arthritis involving multiple sites with positive rheumatoid factor (HCC) Immunocompromised patient (HCC) Therapeutic drug monitoring C-REACTIVE PROTEIN Routine 11/28/2022 2: 45 PM EST Rheumatoid arthritis involving multiple sites with positive rheumatoid factor (HCC) Immunocompromised patient (HCC) Therapeutic drug monitoring COMPREHENSIVE METABOLIC PANEL Routine 11/28/2022 2:45 PM EST Rheumatoid arthritis involving multiple sites with positive rheumatoid factor (HCC) Immunocompromised patient (HCC) Therapeutic drug monitoring documented in this encounter Results * SEDIMENTATION RATE AUTOMATED (11/28/2022 2:45 PM EST) Sed Rate 24 0 - 30 mm/hr 11/28/2022 9:41 PM EST [facility] Blood VENOUS BLOOD / Unknown Venipuncture / Unknown 11/28/2022 2:45 PM EST 11/28/2022 2:45 PM EST us Jessica Cortes MD HEMATOLOGY ORDERABLES Fin al Result [facility] [address] [facility] , [place] [address] * (ABNORMAL) CBC WITH DIFF (11/28/2022 2:45 PM EST) Pathologist [facility] WBC 9.6 3.7 - 10.3 x10(3)/mcL 11/28/2022 9:41 PM EST [facility] RBC 5.07 3.90 - 5.20 x10(6)/mcL 11/28/2022 9:41 PM EST [facility] Hgb 13.5 11.2 - 15.7 g/dL 11/28/2022 9:41 PM EST [facility] Hct 43.8 34.0 - 45.0 % 11/28/2022 9:41 PM EST [facility] MCV 86.4 80.0 - 100.0 fL 11/28/2022 9:41 PM EST [facility] MCH 26.6 26.0 - 34.0 pg 11/28/2022 9:41 PM EST [facility] MCHC 30.8 30.7 - 35.5 g/dL 11/28/2022 9:41 PM EST [facility] RDW 15.5(H) <=14.9 % 11/28/2022 9:41 PM EST [facility] Platelet 398(H) 155 - 369 x10(3)/mcL 11/28/2022 9:41 PM EST [facility] MPV 11.3 8.8 - 12.5 fL 11/28/2022 9:41 PM EST [facility] Neut Percent 60.3 % 11/28/2022 9:41 PM EST [facility] Comment:Neutrophils equals s egs plus bands Imm Gran% 0.6 % 11/28/2022 9:41 PM EST [facility] Comment:Automated count of m etamyelocytes, myelocytes and promyelocytes. Lymph Percent 25.9 % 11/28/2022 9:41 PM EST [facility] Bosque Percent 10.3 % 11/28/2022 9:41 PM EST [facility] Eos Percent 2.0 % 11/28/2022 9:41 PM EST [facility] Baso Percent 0.9 % 11/28/2022 9:41 PM EST [facility] Neut # 5.8 1.6 - 6.1 x10(3)/mcL 11/28/2022 9:41 PM EST [facility] Comment:Neutrophils equals s egs plus bands IMMGRAN# 0.1 0.0 - 0.1 x10(3)/[facility] 11/28/2022 9:41 PM EST [facility] Comment:Automated count of m etamyelocytes, myelocytes and promyelocytes. An absolute IG <0.1 is reported as 0.0. Lymph # 2.5 1.2 - 3.9 x10(3)/[facility] 11/28/2022 9:41 PM EST [facility] Bosque # 1.0(H) 0.3 - 0.9 x10(3)/[facility] 11/28/2022 9:41 PM EST [facility] Eos# 0.2 0.0 - 0.5 x10(3)/[facility] 11/28/2022 9:41 PM EST [facility] Baso # 0.1 0.0 - 0.1 x10(3)/[facility] 11/28/2022 9:41 PM EST [facility] Blood VENOUS BLOOD / Unknown Venipuncture / Unknown 11/28/2022 2:45 PM EST 11/28/2022 2:45 PM EST Jessica Cortes MD HEMATOLOGY ORDERABLES Fin al Result [facility] 1 [facility] , [place] [address] * (ABNORMAL) COMPREHENSIVE METABOLIC PANEL (11/28/2022 2:45 PM EST) Sodium 141 136 - 145 mmol/L 11/28/2022 11:06 PM EST [facility] Potassium 4.3 3.5 - 5.0 mmol/L 11/28/2022 11:06 PM EST [facility] Chloride 104 98 - 107 mmol/L 11/28/2022 11:06 PM EST [facility] Total CO2 26 22 - 29 mmol/L 11/28/2022 11:06 PM EST [facility] Anion Gap 11 7 - 16 mmol/L 11/28/2022 11:06 PM EST [facility] Calcium 9.5 8.6 - 10.4 mg/dL 11/28/2022 11:06 PM EST [facility] Glucose Lvl 90 74 - 100 mg/dL 11/28/2022 11:06 PM EST [facility] BUN 12 6 - 20 mg/dL 11/28/2022 11:06 PM EST [facility] Creatinine 0.78 0.51 - 1.30 mg/dL 11/28/2022 11:06 PM EST [facility] Albumin 4.0 3.5 - 5.2 gm/dL 11/28/2022 11:06 PM EST [facility] Total Protein 7.8 6.4 - 8.3 gm/dL 11/28/2022 11:06 PM EST [facility] Bili Total 0.2 0.1 - 1.3 mg/dL 11/28/2022 11:06 PM EST [facility] ALT 11 <=41 U/L 11/28/2022 11:06 PM EST [facility] AST 19 <=40 U/L 11/28/2022 11:06 PM EST [facility] Alk Phos 128(H) 36 - 123 U/L 11/28/2022 11:06 PM EST [facility] eGFR (CKD-EPIcr 2020) 91 >=60 mL/min/1.7 3 m2 11/28/2022 11:06 PM EST [facility] Comment:Estimated GFR was ca lculated using the CKD-EPIcr (2020) equation refit without race. The equation is recommended by the National Kidney Foundation - [employer] Neph[employer] Task Force. Blood VENOUS BLOOD / Unknown Venipuncture / Unknown 11/28/2022 2:45 PM EST 11/28/2022 2:45 PM EST Jessica Cortes MD CHEMISTRY ORDERABLES Siobhan l Result Performing Organization Address [facility] Co de Phone Number [employer] [facility] [address] [facility] , [place] [address] [facility] [address] [place] [address] * (ABNORMAL) C-REACTIVE PROTEIN (11/28/2022 2:45 PM EST) CRP 11.66(H) <=5.00 mg/L 11/28/2022 11:06 PM EST [facility] Blood VENOUS BLOOD / Unknown Venipuncture / Unknown 11/28/2022 2:45 PM EST 11/28/2022 2:45 PM EST Jessica Cortes MD CHEMISTRY ORDERABLES Siobhan l Result Performing Organization Address City/[facility] Co de Phone Number [facility] [address] [facility] , [place] [address] documented in this encounter Visit Diagnoses Diagnosis Rheumatoid arthritis involving multiple sites with positive rheumatoid factor (HCC) Immunocompromised patient (HCC) Unspecified immunity deficiency Therapeutic drug monitoring Encounter for therapeutic drug monitoring documented in this encounter Care Teams Weaver Apprentice Relationship Specialty Start Date End Date Julisa Kerr MD 100 [place] [address] PCP - General 02/22/11 Jessica Cortes MD [address] [address] Internal Medicine-Rheumatology 04/26/16 Susana Garay MD 1 [facility] [place] [address] Medical Oncologist Internal Medicine-Hematology and Oncology 10/14/22 documented as of this encounter
--- OUTSIDE RECORDS SUMMARY | 2024-08-22 21:43 | XMS_ITS | Encounter Summary ---
Author Organization [place] [address] Care Team Providers Care Assessment Manager Name Role Phone Julisa Kerr MD Primary Care Provider [phone] Jessica Cortes MD Unavailable [phone] Susana Garay MD Unavailable [phone] Reason for Visit * Reason Comments Knee Pain Encounter Details Date Type Department Care Team (Late st Contact Info) Description 12/17/2022 10:30 AM EDT Office Visit [facility] [address] [place] [address] Thierno Toth MD 100 [place] [address] Chronic pain of right knee (Primary Dx); Stress Social History Tobacco Use Types Packs/Day Years [...] Reading Time Taken Comments Blood Pressure 122/70 12/17/2022 10:28 AM EDT Pulse - - Temperature - - Respiratory Rate - - Oxygen Saturation - - Inhaled Oxygen Concentration - - Weight 62.6 kg (138 lb) 12/17/2022 10:28 AM EDT Height 157.5 cm (5' 2 ) 12/17/2022 10:28 AM EDT Body Mass Index 25.24 12/17/2022 10:28 AM EDT documented in this [...] Entry Date Author No 02/12/2022 2:17 PM DORETHAT Albin Levy MA documented in this encounter Ordered Prescriptions Prescription Sig Dispense Quantity Refills Last Filled Start Date End Date busPIRone (BUSPAR) 15 mg Oral TabletIndications :Stress Take 1 Tablet by mouth 2 times daily as needed. 30 Tablet 2 12/17/2022 3 methylPREDNISolon e (MEDROL DOSPACK) 4 mg Oral Tablets, Dose PackIndications:C hronic pain of right knee See package instructions 21 Tablet 12/17/2022 3 documented in this encounter Progress Notes * Thierno Toth MD - 12/17/2022 10:30 AM EDT Vitals: 12/17/22 1028 BP: 122/70 Weight: 138 lb (62.6 kg) Height: 5' 2 (1.575 m) SUBJECTIVE: Chief Complaint Patient presents with ??? Knee Pain Knee Pain The pain is present in the right knee. This is a new problem. The current episode started in the past 7 days. Pertinent negatives include no fever. Had intraarticular injection last year in right knee. No previous imaging. History of RA. Two months of stress lately, almost daily, usually worse at work. Review of Systems Constitutional: Negative for fever. Eyes: Negative for visual disturbance. Respiratory: Negative for cough and shortness of breath. Cardiovascular: Negative for chest pain, palpitations and leg swelling. Gastrointestinal: Negative for abdominal pain, constipation and diarrhea. Genitourinary: Negative for difficulty urinating. Musculoskeletal: Positive for arthralgias. Negative for joint swelling. Skin: Negative for rash. Neurological: Negative for dizziness, light-headedness and headaches. OBJECTIVE: Physical Exam Constitutional: Appearance: She is [...] alert. Psychiatric: Thought Content: Thought content normal. Assessment Diagnoses and all orders for this visit: Chronic pain of right knee - XR KNEE RIGHT AP LATERAL AND AXIAL; Future - methylPREDNISolone (MEDROL DOSPACK) 4 mg Oral Tablets, Dose Pack; See package instructions Dispense: 21 Tablet; Refill: 0 Stress - busPIRone (BUSPAR) 15 mg Oral Tablet; Take 1 Tablet by mouth 2 times daily as needed. Dispense: 30 Tablet; Refill: 2 documented in this encounter Plan of Treatment Upcoming Encounters Date Type Department Care Team (Late st Contact Info) Description 08/31/2024 8:30 AM EST Appointment [address] [address] 10/25/2024 10:45 AM EST Office Visit [facility] [address] [place] [address] Jessica Cortes MD [address] [place] [address] 01/25/2025 9:00 AM EDT Appointment [address] [address] 05/09/2025 11:00 AM EDT Appointment [address] [address] 05/09/2025 11:15 AM EDT Appointment [address] [address] Susana Garay MD [address] [facility] [place] [address] documented as of this encounter Goals Goal [...] 12:11 PM CLINICAL HISTORY: ??M25.561-Pain in right jugu-YUP-75-CM G89.29-Other chronic lvlz-LMW-51-CM COMPARISON: ??None. PROCEDURE COMMENTS: XR KNEE RIGHT AP LATERAL AND AXIAL FINDINGS: No fracture or dislocation. Fullness suprapatellar bursa consistent with joint effusion. Mild degenerative change noted with greatest involvement of the medial compartment. Procedure Note Amando Locke MD - 12/17/2022 XR KNEE RIGHT AP LATERAL AND AXIAL, 12/17/2022 12:11 PM CLINICAL HISTORY: M25.561-Pain in right aflg-DJU-63-CM G89.29-Other chronic zpgg-UMB-47-CM COMPARISON: None. PROCEDURE COMMENTS: XR KNEE RIGHT [...] the ordering clinician. us Thierno Toth MD [facility] ORDERABLES Final Result documented in this encounter Visit Diagnoses Diagnosis Chronic pain of right knee- Primary Stress Other psychological or physical stress, not elsewhere classified Chronic pain of right knee documented in this encounter Discontinued Medications Medication Sig Discontinue Reason Start Date End Da te predniSONE (DELTASONE) 20 mg Oral TabletIndications:COVI D-19 virus infection,Pain and swelling of knee, left,Influenza B Take 2 tablets daily for 4 days, then 1 tablet for 4 days DELETE-Therapy completed 11/04/2022 12/17/2022 azithromycin (ZITHROMAX) 250 mg Oral TabletIndications:COVI D-19 virus infection,Influenza B Take 2 tablets (500 mg) on Day 1, followed by 1 tablet (250 mg) once daily on Days 2 through 5. DELETE-Therapy completed 11/04/2022 12/17/2022 documented as of this encounter Care Teams Assessment Manager Relationship Specialty Start Date End Date Julisa Kerr MD 100 [place] [address] PCP - General 02/22/11 Jessica Cortes MD [address] [place] [address] Internal Medicine-Rheumatology 04/26/16 Susana Garay MD [address] [place], [place] [id number] Medical Oncologist Internal Medicine-Hematology and Oncology 10/14/22 documented as of this encounter
--- OUTSIDE RECORDS SUMMARY | 2024-08-22 21:43 | XMS_ITS | Encounter Summary ---
Author Organization [facility] [place] [address] Care Team Providers Care Steel Shot Header Operator Name Role Phone Julisa Kerr MD Primary Care Provider [phone] Jessica Cortes MD Unavailable [phone] Susana Garay MD Unavailable [phone] Encounter Details Date Type Department Care Team (Latest Contact Info) Description 11/28/2022 Travel Social History Tobacco Use Types Packs/Day [...] Info) Description 08/31/2024 8:30 AM EST [address]ointment [address] [place] [address] 10/25/2024 10:45 AM EST Office Visit [facility] [address] [facility] [address] [place] [address] Jessica Cortes MD 651 [facility] Building [address] [place] [address] 01/25/2025 9:00 AM EDT Appointment [address] [address] [place] [address] 05/09/2025 11:00 AM EDT Appointment [address] [address] [place] [address] 05/09/2025 11:15 AM EDT Appointment [address] [place] [address] Susana Garay MD [address] [place] [address] [place] [address] documented as of this encounter Goals Goal Patient Goal Type Associated Problems Recent Progress Patient-Stated? Author Maintain a healthy diet, exercise regularly and maintain an ideal body weight General Porsche Ashley, RN documented as of this encounter Visit Diagnoses Not on filedocumented in this encounter Care Teams Steel Shot Header Operator Relationship Specialty Start Date End Date Julisa Kerr MD 100 [place] [address] PCP - General 02/22/11 Jessica Cortes MD [address] [place] [address] Internal Medicine-Rheumatology 04/26/16 Suasna Garay MD 1 [facility] [place] [address] Medical Oncologist Internal Medicine-Hematology and Oncology 10/14/22 documented as of this encounter
--- OUTSIDE RECORDS SUMMARY | 2024-08-22 21:43 | XMS_ITS | Encounter Summary ---
Author Organization [place] [address] Care Team Providers Care Business Enterprise Officer Name Role Phone Julisa Kerr MD Primary Care Provider [phone] Jessica Cortes MD Unavailable [phone] Reason for Visit * Reason Comments Medication Refill Encounter Details Date Type Department Care Team (Late st Contact Info) Description 09/26/2022 Refill [facility] [address] [place] [address] Jessica Cortes MD [address] [phone] Medication Refill Social History Tobacco Use Types [...] suspected to have Coronavirus/COVID-19? No / Unsure 09/03/2022 11:21 AM EST documented as of this encounter [...] TWICE A DAY 60 Tablet 09/26/2022 11/04/2022 leflunomide (ARAVA) 10 mg Oral TabletIndications: Rheumatoid arthritis involving multiple sites with positive rheumatoid factor (HCC) TAKE 1 TABLET BY MOUTH EVERY DAY 30 Tablet 09/26/2022 11/06/2022 documented in this encounter Miscellaneous Notes * Telephone Encounter - Estela Chambers MA - 09/26/2022 8:31 AM EST Last OV 09/09/22 Last BW 09/03/22 Next OV 12/09/22 Chart reviewed. FYI - Diclofenac is for neck pain but not under current therapy section of chart note. documented in this encounter Plan of Treatment Upcoming Encounters Date Type Department Care Team (Late st Contact Info) Description 08/31/2024 8:30 AM EST Appointment [facility] [address] [address] [place] [address] 10/25/2024 10:45 AM EST Office Visit [facility] [address] [place] [address] Jessica Cortes MD [address] [place] [address] 01/25/2025 9:00 AM EDT Appointment [address] [place] [address] 05/09/2025 11:00 AM EDT Appointment [address] [address] 05/09/2025 11:15 AM EDT Appointment [address] [address] Susana Garay MD [address] [place] [address] [place] [address] documented as of this encounter Goals Goal [...] TAKE 1 TABLET BY MOUTH EVERY DAY 08/27/2022 09/26/2022 diclofenac (VOLTAREN) 75 mg Oral Tablet, Delayed Release (E.C.)Indications:Rheuma toid arthritis involving multiple sites with positive rheumatoid factor (HCC) TAKE 1 TABLET BY MOUTH TWICE A DAY 08/27/2022 09/26/2022 documented as of this encounter Care Teams Business Enterprise Officer Relationship Specialty Start Date End Date Julisa Kerr MD [address] [place] [id number] PCP - General 02/22/11 Jessica Cortes MD 651 [place] [address] Internal Medicine-Rheumatology 04/26/16 documented as of this encounter
--- OUTSIDE RECORDS SUMMARY | 2024-08-22 21:43 | XMS_ITS | Encounter Summary ---
Author Organization [facility] [place] [address] Care Team Providers Care Liquid Chlorine Operator Name Role Phone Julisa Kerr MD Primary Care Provider [phone] Jessica Cortes MD Unavailable [phone] Susana Garay MD Unavailable [phone] Encounter Details Date Type Department Care Team (Latest Contact Info) Description 11/18/2022 Travel Social History Tobacco Use Types Packs/Day [...] Info) Description 08/31/2024 8:30 AM EST [address]ointment [address] [place] [address] 10/25/2024 10:45 AM EST Office Visit [facility] [address] [facility] [address] [place] [address] Jessica Cortes MD 651 [facility] Building 19 [place] [address] 01/25/2025 9:00 AM EDT Appointment [address] [address] [place] [address] 05/09/2025 11:00 AM EDT Appointment [address] [address] [place] [address] 05/09/2025 11:15 AM EDT Appointment [address] [place] [address] Susana Garay MD [address] [place] [address] [place] [address] documented as of this encounter [...] documented as of this encounter Care Teams Liquid Chlorine Operator Relationship Specialty Start Date End Date Julisa Kerr MD [address] [place] [address] PCP - General 02/22/11 Jessica Cortes MD [address] [place] [address] Internal Medicine-Rheumatology 04/26/16 Susana Garay MD [address] [facility] [place] [address] Medical Oncologist Internal Medicine-Hematology and Oncology 10/14/22 documented as of this encounter
--- OUTSIDE RECORDS SUMMARY | 2024-08-22 21:43 | XMS_ITS | Encounter Summary ---
Author Organization [place] [address] Care Team Providers Care Reinforcer Name Role Phone Julisa Kerr MD Primary Care Provider [phone] Jessica Cortes MD Unavailable [phone] Susana Garay MD Unavailable [phone] Reason for Visit * Reason Comments Pharmacy Rheumatology Management Simponi Encounter Details Date Type Department Care Team (Late st Contact Info) Description 11/26/2022 Specialty Pharmacy [facility] [address] [phone] Renee Miller, line walker Pharmacy Rheumatology Management (Simponi) Social History Tobacco [...] documented in this encounter Progress Notes * Renee Miller CPhT - 11/26/2022 10:17 AM EST Specialty Pharmacy Refill Coordination Note Yuliet Trevino is a 52 y.o. female contacted today regarding refills of her Simponi. Medication to be delivered by [facility] on 11/28. Spoke with patient. Reached out to patient and she is not due for next injection until 318. She said it was ok if we delayed her next refill by 2 weeks. So will reach out to coordinate next fill in 5 weeks. * Lauren Ledesma RP - 11/26/2022 10:17 AM EST [facility] - Care Plan and Refill Review Refill questions and refill history verified. Last assessment 02/15/22. No reassessment needed at this time. Lauren Ledesma [facility] Specialty Pharmacist documented in this encounter Plan of Treatment Upcoming Encounters Date Type Department Care Team (Late st Contact Info) Description 08/31/2024 8:30 AM EST Appointment [facility] [address] [place] [address] 10/25/2024 10:45 AM EST Office Visit [facility] [address] [place] [address] Jessica Cortes MD [address] Building [address] [place] [address] 01/25/2025 9:00 AM EDT Appointment [address] [address] 05/09/2025 11:00 AM EDT Appointment [address] [address] 05/09/2025 11:15 AM EDT Appointment [address] [address] Susana Garay MD [address] [place] [address] [place] [address] documented as of this encounter Goals Goal Patient Goal Type Associated Problems Recent Progress Patient-Stated? Author Maintain a healthy diet, exercise regularly and maintain an ideal body weight General Porsche Ashley, RN documented as of this encounter Visit Diagnoses Not on filedocumented in this encounter Care Teams Reinforcer Relationship Specialty Start Date End Date Julisa Kerr MD 100 [place] [address] PCP - General 02/22/11 Jessica Cortes MD 651 [facility] Building [address] [place] [address] Internal Medicine-Rheumatology 04/26/16 Susana Garay MD 1 [facility] [place] [address] Medical Oncologist Internal Medicine-Hematology and Oncology 10/14/22 documented as of this encounter
--- OUTSIDE RECORDS SUMMARY | 2024-08-22 21:43 | XMS_ITS | Encounter Summary ---
Author Organization [place] [address] Care Team Providers Care Pricing Coordinator Name Role Phone Julisa Kerr MD Primary Care Provider [phone] Jessica Cortes MD Unavailable [phone] Susana Garay MD Unavailable [phone] Reason for Visit * Reason Comments Medication Refill Encounter Details Date Type Department Care Team (Late st Contact Info) Description 11/25/2022 Refill [facility] [address] [address] Susana Garay MD [address] [place], [place] [id number] Medication Refill Social History Tobacco Use Types [...] Date Author No 02/12/2022 2:17 PM EDT Ablin Levy MA documented in this encounter Ordered Prescriptions Prescription Sig Dispense Quantity Refills Last Filled Start Date End Date ELIQUIS 5 mg Oral Tablet TAKE 1 TABLET BY MOUTH TWICE A DAY 90 Tablet 2 11/25/2022 05/14/2023 documented in this encounter Plan of Treatment Upcoming Encounters Date Type Department Care Team (Late st Contact Info) Description 08/31/2024 8:30 AM EST Appointment [facility] [address] [place] [address] 10/25/2024 10:45 AM EST Office Visit [facility] [address] [facility] [address] [place] [address] Jessica Cortes MD 651 [facility] Building [address] [place] [address] 01/25/2025 9:00 AM EDT Appointment [address] [address] [place] [address] 05/09/2025 11:00 AM EDT [address]ointment [address] [place] [address] 05/09/2025 11:15 AM EDT Appointment [address] [address] [place] [address] Susana Garay MD [address] [facility] [place] [address] documented as of this encounter Goals [...] 1 TABLET BY MOUTH TWICE A DAY 10/03/2022 11/25/2022 documented as of this encounter Care Teams Pricing Coordinator Relationship Specialty Start Date End Date Julisa Kerr MD 100 [place], [place] [id number] PCP - General 02/22/11 Jessica Cortes MD [address] [address] Internal Medicine-Rheumatology 04/26/16 Susana Garay MD [address] [facility] [place] [address] Medical Oncologist Internal Medicine-Hematology and Oncology 10/14/22 documented as of this encounter
--- OUTSIDE RECORDS SUMMARY | 2024-08-22 21:43 | XMS_ITS | Encounter Summary ---
Author Organization [place] [address] Care Team Providers Care Electrician Substation Name Role Phone Julisa Kerr MD Primary Care Provider [phone] Jessica Cortes MD Unavailable [phone] Susana Garay MD Unavailable [phone] Reason for Visit * Reason Onset Date Comments Other 10/15/2022 [facility] [address] [place] [address] - [address] - [phone] Encounter Details Date Type Department Care Team (Late st Contact Info) Description 10/15/2022 Telephone [facility] [address] [address] Jessica Cortes MD [address] [address] Other ([facility] [address] [place] [address] - [address] - [phone]) Social History Tobacco Use Types Packs/Day Years [...] Filled Start Date End Date predniSONE (DELTASONE) 10 mg Oral TabletIndications: Rheumatoid arthritis involving multiple sites with positive rheumatoid factor (HCC) Sig: Take 3 tablets daily x 5 days then 2 tablets daily x 5 days then 1 tablet daily x 5 days then stop. 30 Tablet 10/15/2022 3 documented in this encounter Miscellaneous Notes * Addendum Note - Jose Michaels RMA - 10/15/2022 11:29 AM ESTAddended by: JOSE MICHAELS on: 10/15/2022 11:29 AM Modules accepted: Orders * Telephone Encounter - Jose Michaels RMA - 10/15/2022 11:23 AM EST Reviewed chart. Last Prednisone taper 08/05/22 E-scribed Prednisone taper Spoke with patient. Patient verbally understood. * Telephone Encounter - Jp Telles Clerical Staff - 10/15/2022 10:30 AM EST patient calling, asking for prednisone, states: I'm having a lot of trouble with swelling in ankles and hands patient states this has been going on for one week. [facility] [address] [place] [address] - [address] [facility]. - [phone] please advise documented in this encounter Plan of Treatment Upcoming Encounters Date Type Department Care Team (Late st Contact Info) Description 08/31/2024 8:30 AM EST Appointment [address] [place] [address] 10/25/2024 10:45 AM EST Office Visit [facility] 651 [facility] [address] [place] [address] Jessica Cortes MD 651 [facility] Building 19 [place] [address] 01/25/2025 9:00 AM EDT Appointment [address] [place] [address] 05/09/2025 11:00 AM EDT Appointment [address] [place] [address] 05/09/2025 11:15 AM EDT Appointment [facility] Center [address] [place] [phone] Susana Garay MD [address] [facility] [place] [address] documented as of this encounter Goals Goal Patient Goal Type Associated Problems Recent Progress Patient-Stated? Author Maintain a healthy diet, exercise regularly and maintain an ideal body weight General Porsche Ashley, RN documented as of this encounter Visit Diagnoses Diagnosis 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 documented in this encounter Care Teams Electrician Substation Relationship Specialty Start Date End Date Julisa Kerr MD 100 [place] [address] PCP - General 02/22/11 Jessica Cortes MD [address] [place] [address] Internal Medicine-Rheumatology 04/26/16 Susana Garay MD [address] [facility] [place] [address] Medical Oncologist Internal Medicine-Hematology and Oncology 10/14/22 documented as of this encounter
--- OUTSIDE RECORDS SUMMARY | 2024-08-22 21:43 | XMS_ITS | Encounter Summary ---
Author Organization [place] [address] Care Team Providers Care Brickmason Supervisor Name Role Phone Julisa Kerr MD Primary Care Provider [phone] Jessica Cortes MD Unavailable [phone] Susana Garay MD Unavailable [phone] Reason for Visit * Reason Comments Medication Refill Encounter Details Date Type Department Care Team (Late st Contact Info) Description 12/05/2022 Refill [facility] [address] [place] [address] Jessica Cortes MD [address] [address] Medication Refill Social History Tobacco Use Types [...] EVERY DAY 30 Tablet 12/05/2022 01/06/2023 documented in this encounter Miscellaneous Notes * Telephone Encounter - Estela Chambers MA - 12/05/2022 11:33 AM EST Last OV 09/09/22 Last BW 11/28/22 Next OV 12/09/22 Chart reviewed documented in this encounter Plan of Treatment Upcoming Encounters Date Type Department Care Team (Late st Contact Info) Description 08/31/2024 8:30 AM EST Appointment [facility] Cancer [address] [address] [place] [address] 10/25/2024 10:45 AM EST Office Visit [facility] [address] [place] [address] Jessica Cortes MD 651 [facility] Building [address] [id number] 01/25/2025 9:00 AM EDT Appointment [address] [place] [address] 05/09/2025 11:00 AM EDT Appointment [address] [place] [address] 05/09/2025 11:15 AM EDT Appointment [address] [place] [address] Susana Garay MD [address] [place] [address] [address] [phone] documented as of this encounter Goals Goal [...] TAKE 1 TABLET BY MOUTH EVERY DAY 11/06/2022 12/05/2022 documented as of this encounter Care Teams Brickmason Supervisor Relationship Specialty Start Date End Date Julisa Kerr MD 100 [place] [address] PCP - General 02/22/11 Jessica Cortes MD 651 [facility] 19 [place] [address] Internal Medicine-Rheumatology 04/26/16 Susana Garay MD [address] [place] [address] Medical Oncologist Internal Medicine-Hematology and Oncology 10/14/22 documented as of this encounter
--- OUTSIDE RECORDS SUMMARY | 2024-08-22 21:43 | XMS_ITS | Encounter Summary ---
Author Organization [place] [address] Care Team Providers Care Dealer Card Room Name Role Phone Julisa Kerr MD Primary Care Provider [phone] Jessica Cortes MD Unavailable [phone] Susana Garay MD Unavailable [phone] Encounter Details Date Type Department Care Team (Latest Contact Info) Description 10/15/2022 11:21 AM EST - 10/15/2022 11:23 AM EST Hospital Encounter [facility] [address] [id number] Acute deep vein thrombosis (DVT) of popliteal vein of right lower extremity (HCC) Discharge Disposition: Home or Self Care Social [...] Info) Description 08/31/2024 8:30 AM EST Appointment [facility] [address] [address] [place] [address] 10/25/2024 10:45 AM EST Office Visit [facility] [address] [place] [address] Jessica Cortes MD [address] [place] [address] 01/25/2025 9:00 AM EDT Appointment [address] [address] [place] [address] 05/09/2025 11:00 AM EDT Appointment [address] [address] [place] [address] 05/09/2025 11:15 AM EDT Appointment [address] [address] [place] [address] Susana Garay MD [address] [place] [address] [place] [address] documented as of this encounter Goals Goal Patient Goal Type Associated Problems Recent Progress Patient-Stated? 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 RN documented as of this encounter Procedures Procedure Name Priority Date/Time Associated Diagnosis Comments CARDIOLIPIN ANTIBODIES IGG/ IGM-REF LAB Routine 10/15/2022 11:21 AM EST Acute deep vein thrombosis (DVT) of popliteal vein of right lower extremity (HCC) documented in this encounter Results * (ABNORMAL) CARDIOLIPIN ANTIBODIES IGG/ IGM-REF LAB (10/15/2022 11:21 AM EST) Cardiolipin IgG Antibody 21(H) <=14 GPL 10/17/2022 1:50 AM EST [facility] Comment: INTERPRETIVE INFORMATION: Anti-Cardiolipin IgG Ab <=14 GPL: Negative 15-19 GPL: Indeterminate 20-80 GPL: Low to Moderately Positive 81 GPL or above: High Positive The persistent presence of IgG and/or IgM cardiolipin (CL) antibodies in moderate or high levels (greater than 40 GPL and/or greater ??than 40 MPL units) is a laboratory criterion for the diagnosis of antiphospholipid syndrome (APS). Persistence is defined as moderate or high levels of IgG and/or IgM CL antibodies detected in two or more specimens drawn at least 12 weeks apart (J Throm Haemost. 2006;4:295-306). Lower positive levels of IgG and/or IgM CL antibodies (above cutoff but less than 40 GPL and/or less than 40 MPL units) may occur in patients with the clinical symptoms of APS; therefore, the actual significance of these levels is undefined. Results should not be used alone for diagnosis and must be interpreted in light of APS-specific clinical manifestations and/or other criteria phospholipid antibody tests. Cardiolipin IgM Antibody 64(H) <=12 MPL 10/17/2022 1:50 AM EST [facility] Comment: INTERPRETIVE INFORMATION: Anti-Cardiolipin IgM <=12 MPL: Negative 13-19 MPL: Indeterminate 20-80 MPL: Low to Moderately Positive 81 MPL or above: High Positive The persistent presence of IgG and/or IgM cardiolipin (CL) antibodies in moderate or high levels (greater than 40 GPL and/or greater than 40 MPL units) is a laboratory criterion for the diagnosis of antiphospholipid syndrome (APS). Persistence is defined as moderate or high levels of IgG and/or IgM CL antibodies detected ??in two or more specimens drawn at least 12 weeks apart (J Throm Haemost. 2006;4:295-306). Lower positive levels of IgG and/or IgM CL antibodies (above cutoff but less than 40 GPL and/or less than 40 MPL units) may occur in patients with the clinical symptoms of APS; therefore, the actual significance of these levels is undefined. Results should not be used alone for diagnosis and must be interpreted in light of APS-specific clinical manifestations and/or other criteria phospholipid antibody tests. Performed By: [facility] [address] [place] [address] Lock Corner Machine Operator: Thierno Cintron MD, PhD Blood VENOUS BLOOD / Unknown Venipuncture / Unknown 10/15/2022 11:21 AM EST 10/15/2022 11:21 AM EST Susana Garay MD IMMUNOLOGY ORDERABLES Final R esult [facility] [address] [place] [address] documented in this encounter Visit Diagnoses Diagnosis Acute deep vein thrombosis (DVT) of popliteal vein of right lower extremity (HCC) documented in this encounter Care Teams Dealer Card Room Relationship Specialty Start Date End Date Julisa Kerr MD 100 [place], [place] [phone] PCP - General 02/22/11 Jessica Cortes MD [address] [address] Internal Medicine-Rheumatology 04/26/16 Susana Garay MD [address] [place] [address] Medical Oncologist Internal Medicine-Hematology and Oncology 10/14/22 documented as of this encounter
--- OUTSIDE RECORDS SUMMARY | 2024-08-22 21:43 | XMS_ITS | Encounter Summary ---
Author Organization [facility] [place] [address] Care Team Providers Care Maintenance Engineer Oil Field Name Role Phone Julisa Kerr MD Primary Care Provider [phone] Jessica Cortes MD Unavailable [phone] Susana Garay MD Unavailable [phone] Encounter Details Date Type Department Care Team (Latest Contact Info) Description 10/15/2022 Travel Social History Tobacco Use Types Packs/Day [...] Description 08/31/2024 8:30 AM EST [address]ment [address] [place] [address] 10/25/2024 10:45 AM EST Office Visit [facility] 651 [facility] [address] [place] [address] Jessica Cortes MD 651 [facility] Building 19 [place] [address] 01/25/2025 9:00 AM EDT Appointment [address] [address] [place] [address] 05/09/2025 11:00 AM EDT Appointment [address] [address] [place] [address] 05/09/2025 11:15 AM EDT Appointment [address] [place] [address] Susana Garay MD [address] [place] [address] [place] [address] documented as of this encounter Goals Goal Patient Goal Type Associated Problems Recent Progress Patient-Stated? Author Maintain a healthy diet, exercise regularly and maintain an ideal body weight General Porsche Ashley, RN documented as of this encounter Visit Diagnoses Not on filedocumented in this encounter Care Teams Maintenance Engineer Oil Field Relationship Specialty Start Date End Date Julisa Kerr MD 100 [place] [address] PCP - General 02/22/11 Jessica Cortes MD [address] [place] [address] Internal Medicine-Rheumatology 04/26/16 Susana Garay MD [address] [place] [address] Medical Oncologist Internal Medicine-Hematology and Oncology 10/14/22 documented as of this encounter
--- OUTSIDE RECORDS SUMMARY | 2024-08-22 21:43 | XMS_ITS | Encounter Summary ---
Author Organization [facility] [place] [address] Care Team Providers Care Drip Box Tender Name Role Phone Julisa Kerr MD Primary Care Provider [phone] Jessica Cortes MD Unavailable [phone] Encounter Details Date Type Department Care Team (Latest Contact Info) Description 09/09/2022 Travel Social History Tobacco Use Types Packs/Day [...] In the last 10 days, have abraham u been in contact with someone who [...] Info) Description 08/31/2024 8:30 AM EST Appointment [address] [place] [address] 10/25/2024 10:45 AM EST Office Visit [facility] [address] [facility] [address] [place] [address] Jessica Cortes MD [address] [place] [address] [address] [place] [address] 01/25/2025 9:00 AM EDT Appointment [address] [place] [address] 05/09/2025 11:00 AM EDT Appointment [address] [place] [address] 05/09/2025 11:15 AM EDT Appointment [address] [place] [address] Susana Garay MD [address] [place] [address] [address] [id number] documented as of this encounter Goals Goal Patient Goal Type Associated Problems Recent Progress Patient-Stated? Author Maintain a healthy diet, exercise regularly and maintain an ideal body weight General Porsche Ashley, RN documented as of this encounter Visit Diagnoses Not on filedocumented in this encounter Care Teams Drip Box Tender Relationship Specialty Start Date End Date Julisa Kerr MD 100 [place] [address] PCP - General 02/22/11 Jessica Cortes MD [address] [address] Internal Medicine-Rheumatology 04/26/16 documented as of this encounter
--- OUTSIDE RECORDS SUMMARY | 2024-08-22 21:43 | XMS_ITS | Encounter Summary ---
Author Organization [place] [address] Care Team Providers Care Needle Punch Machine Operator Name Role Phone Julisa Kerr MD Primary Care Provider [phone] Jessica Cortes MD Unavailable [phone] Susana Garay MD Unavailable [phone] Reason for Visit * Reason Comments Medication Refill Encounter Details Date Type Department Care Team (Late st Contact Info) Description 11/04/2022 Refill [facility] [address] [place] [address] Jessica Cortes MD 651 [place] [address] Medication Refill Social History Tobacco Use Types [...] EDAlbin Brennan MA documented in this encounter Ordered Prescriptions Prescription Sig Dispense Quantity Refills Last Filled Start Date End Date leflunomide (ARAVA) 10 mg Oral TabletIndications: Rheumatoid arthritis involving multiple sites with positive rheumatoid factor (HCC) TAKE 1 TABLET BY MOUTH EVERY DAY 30 Tablet 11/06/2022 12/05/2022 diclofenac (VOLTAREN) 75 mg Oral Tablet, Delayed Release (E.C.)Indications: Rheumatoid arthritis involving multiple sites with positive rheumatoid factor (HCC) TAKE 1 TABLET BY MOUTH TWICE A DAY 60 Tablet 1 11/04/2022 04/20/2023 documented in this encounter Miscellaneous Notes * Telephone Encounter - Mel Michaels RMA - 11/04/2022 8:08 AM EST Last OV 09/09/22 Last BW 09/03/22 Next OV 12/09/22 Chart reviewed. Patient was advised to Therapeutic drug monitoring Tuberculosis screening TB gold negative 01/23/22 Labs every 6-8 weeks while on MTX and Arava to monitor for toxicities. Sent message to patient via My chart to remind pt to have labs drawn. documented in this encounter Plan of Treatment Upcoming Encounters Date Type Department Care Team (Late st Contact Info) Description 08/31/2024 8:30 AM EST Appointment [facility] Cancer [address] [place] [address] 10/25/2024 10:45 AM EST Office Visit [facility] [address] [place] [address] Jessica Cortes MD [address] [place] [address] 01/25/2025 9:00 AM EDT Appointment [address] [address] [place] [address] 05/09/2025 11:00 AM EDT Appointment [address] [place] [address] 05/09/2025 11:15 AM EDT [address]ointment [address] [place] [address] Susana Garay MD [address] [place] [address] [place] [address] documented as of this encounter Goals Goal [...] 1 TABLET BY MOUTH TWICE A DAY 09/26/2022 11/04/2022 leflunomide (ARAVA) 10 mg Oral TabletIndications:Rheuma toid arthritis involving multiple sites with positive rheumatoid factor (HCC) TAKE 1 TABLET BY MOUTH EVERY DAY 09/26/2022 11/06/2022 documented as of this encounter Additional Health Concerns Infection Onset Date Last Indicated Resolved Time INFLUENZA 11/04/2022 11/04/2022 11/19/2022 10:1 2 PM EST COVID-19 11/04/2022 11/04/2022 11/24/2022 10:1 2 PM EST documented as of this encounter Care Teams Needle Punch Machine Operator Relationship Specialty Start Date End Date Julisa Kerr MD [address] [place] [address] PCP - General 02/22/11 Jessica Cortes MD [address] [place] [address] Internal Medicine-Rheumatology 04/26/16 Susana Garay MD [address] [place] [address] [place] [address] Medical Oncologist Internal Medicine-Hematology and Oncology 10/14/22 documented as of this encounter
--- OUTSIDE RECORDS SUMMARY | 2024-08-22 21:43 | XMS_ITS | Encounter Summary ---
Author Organization [facility] [place] [address] Care Team Providers Care Cable Armorer Operator Name Role Phone Julisa Kerr MD Primary Care Provider [phone] Jessica Cortes MD Unavailable [phone] Susana Garay MD Unavailable [phone] Encounter Details Date Type Department Care Team (Latest Contact Info) Description 12/17/2022 Travel Social History Tobacco Use Types Packs/Day [...] Description 08/31/2024 8:30 AM EST Appointment [address] [place] [address] 10/25/2024 10:45 AM EST Office Visit [facility] [address] [facility] [address] [place] [address] Jessica Cortes MD [address] [place] [address] [address] [place] [address] 01/25/2025 9:00 AM EDT [address]ointment [address] [place] [address] 05/09/2025 11:00 AM EDT [address]ointment [address] [address] 05/09/2025 11:15 AM EDT Appointment [address] [place] [address] Susana Garay MD [address] [place] [address] [place] [address] documented as of this encounter Goals Goal Patient Goal Type Associated Problems Recent Progress Patient-Stated? Author Maintain a healthy diet, exercise regularly and maintain an ideal body weight General Porsche Ashley, RN documented as of this encounter Visit Diagnoses Not on filedocumented in this encounter Care Teams Cable Armorer Operator Relationship Specialty Start Date End Date Julisa Kerr MD [address] [place] [address] PCP - General 02/22/11 Jessica Cortes MD [address] [place] [address] Internal Medicine-Rheumatology 04/26/16 Susana Garay MD [address] [place] [address] Medical Oncologist Internal Medicine-Hematology and Oncology 10/14/22 documented as of this encounter
--- OUTSIDE RECORDS SUMMARY | 2024-08-22 21:43 | XMS_ITS | Encounter Summary ---
Author Organization [place] [place] [address] Care Team Providers Care Cafeteria Worker Name Role Phone Julisa Kerr MD Primary Care Provider [phone] Jessica Cortes MD Unavailable [phone] Reason for Visit * Reason Comments Medication Refill Encounter Details Date Type Department Care Team (Late st Contact Info) Description 10/03/2022 Refill [facility] [address] [address] Susana Garay MD [address] [place], [place] [id number] Medication Refill Social History Tobacco Use Types [...] TWICE A DAY 10 Tablet 10/03/2022 11/25/2022 documented in this encounter Miscellaneous Notes * Telephone Encounter - Tammie Bowling - 10/03/2022 11:08 AM EST Patient has f/u with [facility] on 10/15. 10 day supply sent to pharmacy until seen. documented in this encounter Plan of Treatment Upcoming Encounters Date Type Department Care Team (Late st Contact Info) Description 08/31/2024 8:30 AM EST Appointment [facility] [address] [place] [address] 10/25/2024 10:45 AM EST Office Visit [facility] [address] [facility] [address] [place] [address] Jessica Cortes MD [address] [facility] 19 [place] [address] 01/25/2025 9:00 AM EDT Appointment [place] [address] [place] [address] 05/09/2025 11:00 AM EDT Appointment [address] [place] [address] 05/09/2025 11:15 AM EDT Appointment [address] [place] [address] Susana Garay MD [address] [place], [place] [id number] documented as of this encounter Goals Goal Patient Goal Type Associated Problems Recent Progress Patient-Stated? 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, RN documented as of this encounter Visit Diagnoses Not on filedocumented in this encounter Discontinued Medications Medication Sig Discontinue Reason Start Date End Da te apixaban (ELIQUIS) 5 mg Oral Tablet Take 1 Tablet by mouth 2 times daily. 07/08/2022 10/03/2022 documented as of this encounter Care Teams Cafeteria Worker Relationship Specialty Start Date End Date Julisa Kerr MD [address] [place] [address] PCP - General 02/22/11 Jessica Cortes MD [address] [facility] 19 [place] [address] Internal Medicine-Rheumatology 04/26/16 documented as of this encounter
--- OUTSIDE RECORDS SUMMARY | 2024-08-22 21:44 | XMS_ITS | Encounter Summary ---
Author Organization [facility] [place] [address] Care Team Providers Care Magazine Worker Name Role Phone Julisa Kerr MD Primary Care Provider [phone] Jessica Cortes MD Unavailable [phone] Encounter Details Date Type Department Care Team (Latest Contact Info) Description 07/18/2022 12:55 PM EDT - 07/18/2022 11:59 PM EDT Hospital Encounter [facility] [address] [place] [address] Acute deep vein thrombosis (DVT) of popliteal [...] suspected to have Coronavirus/COVID-19? No / Unsure 07/18/2022 12:51 PM EDT documented as of this encounter [...] 02/12/2022 2:17 PM EDAlbin Brennan MA documented as of this encounter Mental Status * Because of a physical, mental or emotional condition, does this person have serious difficulty concentrating, remembering or making decisions? Answer Entry Date Author No 02/12/2022 2:17 PM EDAlbin Brennan MA documented in this encounter Medications at Time of Discharge apixaban (ELIQUIS) 5 mg Oral Tablet Take 1 Tablet by mouth 2 times daily. 60 Tablet 2 07/08/2022 10/03/2022 cyanocobalamin 1,000 mcg/mL Inj SolutionIndicatio ns:Vitamin B 12 deficiency INJECT 1ML INTO THE MUSCLE EVERY MONTH 1 mL 11 02/12/2022 02/17/2023 diclofenac (VOLTAREN) 75 mg Oral Tablet, Delayed Release (E.C.)Indications :Rheumatoid arthritis involving multiple sites with positive rheumatoid factor (HCC) TAKE 1 TABLET BY MOUTH TWICE A DAY 60 Tablet 1 06/24/2022 08/27/2022 leflunomide (ARAVA) 10 mg Oral TabletIndications :Rheumatoid arthritis involving multiple sites with positive rheumatoid factor (HCC) TAKE 1 TABLET BY MOUTH EVERY DAY 30 Tablet 1 06/28/2022 08/27/2022 documented as of this encounter Discharge Disposition Disposition Code Departure Means Destination Home or Self Care documented in this encounter Plan of Treatment Upcoming Encounters Date Type Department Care Team (Late st Contact Info) Description 08/31/2024 8:30 AM EST Appointment [address] [address] [place] [address] 10/25/2024 10:45 AM EST Office Visit [facility] [address] [place] [address] Jessica Cortes MD [address] [place] [address] 01/25/2025 9:00 AM EDT Appointment [address] [address] [place] [address] 05/09/2025 11:00 AM EDT Appointment [address] [address] [place] [address] 05/09/2025 11:15 AM EDT Appointment [address] [address] [place] [address] Susana Garay MD [address] [place] [address] [place] [address] documented as of this encounter Goals Goal Patient Goal Type Associated Problems Recent Progress Patient-Stated? Author Maintain a healthy diet, exercise regularly and maintain an ideal body weight General Porsche Ashley RN documented as of this encounter Procedures Procedure Name Priority Date/Time Associated Diagnosis Comments BILL HEXPR Routine 07/18/2022 12:54 PM EDT Acute deep vein thrombosis (DVT) of popliteal vein of right lower extremity (HCC) SALONI DRVC Routine 07/18/2022 12:54 PM EDT Acute deep vein thrombosis (DVT) of popliteal vein of right lower extremity (HCC) SALONI DRV Routine 07/18/2022 12:54 PM EDT Acute deep vein thrombosis (DVT) of popliteal vein of right lower extremity (HCC) LUPUS ANTICOAGULANT PANEL -REF LAB Routine 07/18/2022 12:54 PM EDT Acute deep vein thrombosis (DVT) of popliteal vein of right lower extremity (HCC) documented in this encounter Results * BILL HEXPR (07/18/2022 12:54 PM EDT) BILL_HEXPR-ARUP Billed 8:01 PM EDT [facility] Comment: Performed By: [facility] [address] [place] [address] Fountain Dispenser: Thierno Cintron MD, PhD Blood VENOUS BLOOD / Unknown Venipuncture / Unknown 07/18/2022 12:54 PM EDT 07/18/2022 12:54 PM EDT Susana Garay MD HEMATOLOGY ORDERABLES Final R esult Performing Organization Address City/[facility]/ZIP Co de Phone Number [facility] [address] [phone] * BILL DRVC (07/18/2022 12:54 PM EDT) Pathologist [facility] BILL_DRVC-ARUP Billed 07/24/2022 8:01 PM EDT [facility] Comment: Performed By: [facility] [address] [place] [address] Fountain Dispenser: Thierno Cintron MD, PhD Blood VENOUS BLOOD / Unknown Venipuncture / Unknown 07/18/2022 12:54 PM EDT 07/18/2022 12:54 PM EDT Susana Garay MD HEMATOLOGY ORDERABLES Final R esult [facility] [address] [id number] * BILL DRV (07/18/2022 12:54 PM EDT) BILL_DRV-ARUP Billed 07/24/2022 8:01 PM EDT [facility] Comment: Performed By: [facility] [address] [place] [address] Fountain Dispenser: Thierno Cintron MD, PhD Blood VENOUS BLOOD / Unknown Venipuncture / Unknown 07/18/2022 12:54 PM EDT 07/18/2022 12:54 PM EDT us Susana Garay MD HEMATOLOGY ORDERABLES Final R esult [facility] [address] [place], [place] [id number] * (ABNORMAL) LUPUS ANTICOAGULANT PANEL -REF LAB (07/18/2022 12:54 PM EDT) PT D 14.1 12.0 - 15.5 sec 07/24/2022 8:01 PM EDT [facility] PTT D 46 32 - 48 sec 07/24/2022 8:01 PM EDT [facility] Thrombin Time Not Applicable 14.7 - 19.5 sec 07/24/2022 8:01 PM EDT [facility] Reptilase Pat Not Applicable <=21.9 sec 07/24/2022 8:01 PM EDT [facility] PTT Hep Neut Not Applicable 32 - 48 sec 07/24/2022 8:01 PM EDT [facility] PTT Christophe Rflx Not Applicable 32 - 48 sec 07/24/2022 8:01 PM EDT [facility] Plt Neut Not Applicable Negative 07/24/2022 8:01 PM EDT [facility] DRVVT 52(H) 33 - 44 sec 07/24/2022 8:01 PM EDT [facility] DRV Christophe 46(H) 33 - 44 sec 07/24/2022 8:01 PM EDT [facility] DRVVT Confirm Negative Negative ratio 07/24/2022 8:01 PM EDT [facility] Hexag Phos Rflx Negative Negative 8:01 PM EDT [facility] Lupus Anticoagulant Interp See Note 07/24/2022 8:01 PM EDT [facility] Comment: Lupus anticoagulant not detected. The DRVVT is prolonged and does not correct in a 1:1 mix with pooled normal plasma. ??This pattern indicates the presence of an inhibitor. ??However, the DRVVT does not demonstrate phospholipid-dependence in the confirmatory test containing excess phospholipid or in the hexagonal phospholipid neutralization test. Possibilities include a lupus anticoagulant not detected with this testing panel. Lupus anticoagulant antibodies are heterogeneous and antibody titers fluctuate over time. Laboratory tests used to identify lupus anticoagulants demonstrate variable sensitivity. If there is strong clinical suspicion for antiphospholipid antibody syndrome (APS), consider testing for cardiolipin and beta-2 glycoprotein 1 antibodies (IgG and IgM) if this testing has not already been performed. Performed by [facility], [address] [place] [address] [email or web address], Thierno Cintron MD, PHD, Lab. Director Blood VENOUS BLOOD / Unknown Venipuncture / Unknown 07/18/2022 12:54 PM EDT 07/18/2022 12:54 PM EDT us Susana Garay MD CHEMISTRY ORDERABLES Final Re sult [facility] [address] [place] [address] documented in this encounter Visit Diagnoses Diagnosis Acute deep vein thrombosis (DVT) of popliteal vein of right lower extremity (HCC) documented in this encounter Care Teams Magazine Worker Relationship Specialty Start Date End Date Julisa Kerr MD [address] [place] [address] PCP - General 02/22/11 Jessica Cortes MD [address] [facility] 19 [place] [address] Internal Medicine-Rheumatology 04/26/16 documented as of this encounter
--- OUTSIDE RECORDS SUMMARY | 2024-08-22 21:44 | XMS_ITS | Encounter Summary ---
Author Organization [facility] [place] [address] Care Team Providers Care Zipper Cutter Name Role Phone Julisa Kerr MD Primary Care Provider [phone] Jessica Cortes MD Unavailable [phone] Encounter Details Date Type Department Care Team (Latest Contact Info) Description 07/27/2022 Travel Social History Tobacco Use Types Packs/Day [...] suspected to have Coronavirus/COVID-19? No / Unsure 07/27/2022 1:36 PM EDT documented as of this encounter [...] Description 08/31/2024 8:30 AM EST Appointment [address] [place] [address] 10/25/2024 10:45 AM EST Office Visit [facility] [address] [facility] [address] [place] [address] Jessica Cortes MD [address] [place] [address] [address] [place] [address] 01/25/2025 9:00 AM EDT Appointment [address] [place] [address] 05/09/2025 11:00 AM EDT Appointment [address] [place] [address] 05/09/2025 11:15 AM EDT Appointment [address] [place] [address] Susana Garay MD [address] [place] [address] [place] [address] documented as of this encounter Goals Goal Patient Goal Type Associated Problems Recent Progress Patient-Stated? Author Maintain a healthy diet, exercise regularly and maintain an ideal body weight General Porsche Ashley, RN documented as of this encounter Visit Diagnoses Not on filedocumented in this encounter Care Teams Zipper Cutter Relationship Specialty Start Date End Date Julisa Kerr MD [address] [place] [address] PCP - General 02/22/11 Jessica Cortes MD [address] [place] [id number] Internal Medicine-Rheumatology 04/26/16 documented as of this encounter
--- OUTSIDE RECORDS SUMMARY | 2024-08-22 21:44 | XMS_ITS | Encounter Summary ---
Author Organization [facility] [place] [address] Care Team Providers Care Rope Coiling Machine Operator Name Role Phone Julisa Kerr MD Primary Care Provider [phone] Jessica Cortes MD Unavailable [phone] Reason for Visit * Reason Comments Pharmacy Rheumatology Management Pharmacy Initial Assessment Simponi Encounter Details Date Type Department Care Team (Latest Contact Info) Description 07/10/2022 Specialty Pharmacy [facility] [address] [id number] Jaxon Noel Noe Pharmacy Rheumatology Management; Pharmacy Initial Assessment (Simponi) Social History Tobacco Use Types Packs/Day [...] suspected to have Coronavirus/COVID-19? No / Unsure 07/08/2022 3:08 PM EDT documented as of this encounter [...] documented in this encounter Progress Notes * Jaxon Noel RPH - 07/10/2022 1:31 PM EDT Specialty Pharmacy - Rheumatology Initial Assessment Yuliet Trevino is a 51 y.o. female contacted today regarding her initial assessment of Simponi (dose increase from 50mg to 100mg). No answer, left voicemail to call [phone], option 4. Jaxon Noel RPH Specialty Pharmacist * Jaxon Noel RPH - 07/10/2022 1:31 PM EDT Specialty Pharmacy - Rheumatology Initial Assessment Yuliet Trevino is a 51 y.o. female contacted today regarding her initial assessment of Simponi (dose increase from 50mg to 100mg). No answer, left voicemail to call [phone], option 4. Jaxon Noel [facility] Specialty Pharmacist * Jessi Spencer CPhT - 07/10/2022 1:31 PM EDT Specialty Pharmacy First Fill Coordination Yuliet Trevino is a 51 y.o. female contacted today regarding the first fill of her Simponi $0copay. No answer, left voicemail to call [phone], option 4. Needs IA * Aleyda Contreras CPhT - 07/10/2022 1:31 PM EDT Specialty Pharmacy Refill Coordination Note Yuliet Trevino is a 51 y.o. female Called in today regarding refills of her Simponi. Medication to be delivered by [facility] on 07/15. Note says patient need IA, did not see one in the notes but patients states that she had one. Will route to [facility] for follow up. Spoke with patient. * Lauren Ledesma RP - 07/10/2022 1:31 PM EDT Specialty Pharmacy - Rheumatology Initial Assessment Yuliet Trevino is a 51 y.o. female contacted today regarding her initial assessment of Simponi (dose change from 50mg to 100mg). No answer, left voicemail to call [phone], option 4. Patient previously spoke to a registered diet technician and stated she did not want to speak with a [facility]. Patient will not be clinically followed. Lauren Ledesma [facility] Specialty Pharmacist documented in this encounter Plan of Treatment Upcoming Encounters Date Type Department Care Team (Late st Contact Info) Description 08/31/2024 8:30 AM EST Appointment [facility] [address] [place] [address] 10/25/2024 10:45 AM EST Office Visit [facility] [address] [facility] [address] [place] [address] Jessica Cortes MD [address] [facility] 19 [place] [address] 01/25/2025 9:00 AM EDT [address]ointment [address] [place] [address] 05/09/2025 11:00 AM EDT Appointment [address] [place] [address] 05/09/2025 11:15 AM EDT Appointment [address] [place] [address] Susana Garay MD [address] [place] [address] documented as of this encounter Goals Goal Patient Goal Type Associated Problems Recent Progress Patient-Stated? Author Maintain a healthy diet, exercise regularly and maintain an ideal body weight General Porsche Ashley, RN documented as of this encounter Visit Diagnoses Not on filedocumented in this encounter Care Teams Rope Coiling Machine Operator Relationship Specialty Start Date End Date Julisa Kerr MD [address] [place] [address] PCP - General 02/22/11 Jessica Cortes MD [address] [facility] 19 [place] [address] Internal Medicine-Rheumatology 04/26/16 documented as of this encounter
--- OUTSIDE RECORDS SUMMARY | 2024-08-22 21:44 | XMS_ITS | Encounter Summary ---
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 Dx); Immunocompromised patient (HCC); Therapeutic drug monitoring Social History Tobacco Use [...] Description 08/31/2024 8:30 AM EST [address]ment [address] [place] [address] 10/25/2024 10:45 AM EST Office Visit EDG RHEUMATOLOGY [facility] [address] [place] [address] Jessica Cortes MD [address] [facility] [address] [place] [address] 01/25/2025 9:00 AM EDT [address]ointment [address] [place] [address] 05/09/2025 11:00 AM EDT [address]ment [address] [place] [address] 05/09/2025 11:15 AM EDT Appointment [facility] [address] [place] [address] Susana Garay MD [address] [facility] [address] documented as of this encounter Goals Goal Patient Goal Type Associated Problems Recent Progress Patient-Stated? 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 RN documented as of this encounter Results * (ABNORMAL) SEDIMENTATION RATE AUTOMATED (01/20/2023 1:36 PM EDT) Pathologist [facility] Sed Rate 46(H) 0 - 30 mm/hr 01/20/2023 7:55 PM EDT [facility] Blood VENOUS BLOOD / Unknown Venipuncture / Unknown 01/20/2023 1:36 PM EDT 01/20/2023 1:36 PM EDT us Jessica Cortes MD HEMATOLOGY ORDERABLES Fin al Result [facility] [address] [facility] , [place] [address] * (ABNORMAL) CBC WITH DIFF (01/20/2023 1:36 PM EDT) WBC 14.1(H) 3.7 - 10.3 x10(3)/mcL 01/20/2023 [...] 01/20/2023 7:55 PM EDT [facility] MCHC 30.1(L) 30.7 - 35.5 g/dL 01/20/2023 7:55 PM EDT [facility] RDW 16.8(H) <=14.9 % 01/20/2023 7:55 PM EDT [facility] Platelet 267 155 - 369 x10(3)/mcL 01/20/2023 7:55 PM EDT [facility] MPV 11.0 8.8 - 12.5 fL 01/20/2023 7:55 PM EDT [facility] Neut Percent 81.8 % 01/20/2023 7:55 PM EDT [facility] Comment:Neutrophils equals s egs plus bands Imm Gran% 1.3 % 01/20/2023 7:55 PM EDT [facility] Comment:Automated count of m etamyelocytes, myelocytes and promyelocytes. IG >1% represents a left shift and provides an early indication of an infection or inflammatory process. Lymph Percent 7.3 % 01/20/2023 7:55 PM EDT [facility] Christian Percent 8.9 % 01/20/2023 7:55 PM EDT [facility] Eos Percent 0.1 % 01/20/2023 7:55 PM EDT [facility] Baso Percent 0.6 % 01/20/2023 7:55 PM EDT [facility] Neut # 11.5(H) 1.6 - 6.1 x10(3)/mcL 01/20/2023 7:55 PM EDT [facility] Comment:Neutrophils equals s egs plus bands IMMGRAN# 0.2(H) 0.0 - 0.1 x10(3)/mcL 01/20/2023 7:55 PM EDT [facility] Comment:Automated count of m etamyelocytes, myelocytes and promyelocytes. An absolute IG <0.1 is reported as 0.0. Lymph # 1.0(L) 1.2 - 3.9 x10(3)/mcL 01/20/2023 7:55 PM EDT [facility] Christian # 1.3(H) 0.3 - 0.9 x10(3)/mcL 01/20/2023 7:55 PM EDT [facility] Eos# 0.0 0.0 - 0.5 x10(3)/mcL 01/20/2023 7:55 PM EDT [facility] Baso # 0.1 0.0 - 0.1 x10(3)/mcL 01/20/2023 7:55 PM EDT [facility] Blood VENOUS BLOOD / Unknown Venipuncture / Unknown 01/20/2023 1:36 PM EDT 01/20/2023 1:36 PM EDT us Jessica Cortes MD HEMATOLOGY ORDERABLES Fin al Result [facility] [address] [facility] , [place] [address] * (ABNORMAL) COMPREHENSIVE METABOLIC PANEL (01/20/2023 1:36 [...] 01/20/2023 8:08 PM EDT [facility] Albumin 4.1 3.5 - 5.2 gm/dL 01/20/2023 8:08 PM EDT [facility] Total Protein 7.1 6.4 - 8.3 gm/dL 01/20/2023 8:08 PM EDT [facility], [facility] Bili Total 0.3 0.1 - 1.3 mg/dL 01/20/2023 8:08 PM EDT [facility] ALT 14 <=41 U/L 01/20/2023 8:08 PM EDT [facility] AST 16 <=40 U/L 01/20/2023 8:08 PM EDT [facility] Alk Phos 74 36 - 123 U/L 01/20/2023 8:08 PM EDT [facility] eGFR (CKD-EPIcr 2020) 82 >=60 mL/min/1.7 3 m2 01/20/2023 8:08 PM EDT [facility] Comment:Estimated GFR was ca lculated using the CKD-EPIcr (2020) equation refit without race. The equation is recommended by the National Kidney Foundation - [employer] Neph[employer] Task Force. Blood VENOUS BLOOD / Unknown Venipuncture / Unknown 01/20/2023 1:36 PM EDT 01/20/2023 1:36 PM EDT us Jessica Cortes MD CHEMISTRY ORDERABLES Siobhan l Result [address] , [address] [place] [phone] [facility] [address] [place] [phone] * (ABNORMAL) C-REACTIVE PROTEIN (01/20/2023 1:36 PM EDT) Pathologist [facility] CRP 63.65(H) <=5.00 mg/L 01/20/2023 8:08 PM EDT [facility] Blood VENOUS BLOOD / Unknown Venipuncture / Unknown 01/20/2023 1:36 PM EDT 01/20/2023 1:36 PM EDT Jessica Cortes MD CHEMISTRY ORDERABLES Siobhan l Result Performing Organization Address City/[facility]/ZIP Co de Phone Number [facility] [address] [facility] , [place] [address] * SEDIMENTATION RATE AUTOMATED (11/28/2022 2:45 PM EST) Pathologist [facility] Sed Rate 24 0 - 30 mm/hr 11/28/2022 9:41 PM EST [facility] Blood VENOUS BLOOD / Unknown Venipuncture / Unknown 11/28/2022 2:45 PM EST 11/28/2022 2:45 PM EST Jessica Cortes MD HEMATOLOGY ORDERABLES Fin al Result Performing Organization Address [facility] Co de Phone Number [facility] [address] [facility] , [place] [address] * (ABNORMAL) CBC WITH DIFF (11/28/2022 2:45 PM EST) Pathologist [facility] WBC 9.6 3.7 - 10.3 x10(3)/mcL 11/28/2022 [...] 11/28/2022 9:41 PM EST [facility] Platelet 398(H) 155 - 369 x10(3)/[facility] 11/28/2022 9:41 PM EST [facility] MPV 11.3 8.8 - 12.5 fL 11/28/2022 9:41 PM EST [facility] Neut Percent 60.3 % 11/28/2022 9:41 PM EST [facility] Comment:Neutrophils equals s egs plus bands Imm Gran% 0.6 % 11/28/2022 9:41 PM EST [facility] Comment:Automated count of m etamyelocytes, myelocytes and promyelocytes. Lymph Percent 25.9 % 11/28/2022 9:41 PM EST [facility] Christian Percent 10.3 % 11/28/2022 9:41 PM EST [facility] Eos Percent 2.0 % 11/28/2022 9:41 PM EST [facility] Baso Percent 0.9 % 11/28/2022 9:41 PM EST [facility] Neut # 5.8 1.6 - 6.1 x10(3)/[facility] 11/28/2022 9:41 PM EST [facility] Comment:Neutrophils equals s egs plus bands IMMGRAN# 0.1 0.0 - 0.1 x10(3)/[facility] 11/28/2022 9:41 PM EST [facility] Comment:Automated count of m etamyelocytes, myelocytes and promyelocytes. An absolute IG <0.1 is reported as 0.0. Lymph # 2.5 1.2 - 3.9 x10(3)/[facility] 11/28/2022 9:41 PM EST [facility] Christian # 1.0(H) 0.3 - 0.9 x10(3)/[facility] 11/28/2022 9:41 PM EST [facility] Eos# 0.2 0.0 - 0.5 x10(3)/[facility] 11/28/2022 9:41 PM EST [facility] Baso # 0.1 0.0 - 0.1 x10(3)/[facility] 11/28/2022 9:41 PM EST [facility] Blood VENOUS BLOOD / Unknown Venipuncture / Unknown 11/28/2022 2:45 PM EST 11/28/2022 2:45 PM EST us Jessica Cortes MD HEMATOLOGY ORDERABLES Fin al Result [facility] [address] [facility], [place] [address] * (ABNORMAL) COMPREHENSIVE METABOLIC PANEL (11/28/2022 2:45 [...] 19 <=40 U/L 11/28/2022 11:06 PM EST [facility] [employer] [facility] Alk Phos 128(H) 36 - 123 U/L 11/28/2022 11:06 PM EST [facility] [email or web address], [facility] eGFR (CKD-EPIcr 2020) 91 >=60 mL/min/1.7 3 [...] ORDERABLES Siobhan l Result Performing Organization Address [facility] Co de Phone Number [facility] [email or web address] , [place] [address] [facility] [address] [place] [address] * (ABNORMAL) C-REACTIVE PROTEIN (11/28/2022 2:45 PM EST) [facility] CRP 11.66(H) <=5.00 mg/L 11/28/2022 11:06 PM EST [facility] [employer] [facility] Blood VENOUS BLOOD / Unknown Venipuncture / Unknown 11/28/2022 2:45 PM EST 11/28/2022 2:45 PM EST Jessica Cortes MD CHEMISTRY ORDERABLES Siobhan l Result Performing Organization Address [facility] Co de Phone Number [facility] [email or web address] , [place] [address] * (ABNORMAL) SEDIMENTATION RATE AUTOMATED (11/04/2022 12:58 PM EST) Pathologist [facility] Sed Rate 76(H) 0 - 30 mm/hr 11/04/2022 7:47 PM EST [email or web address] Blood VENOUS BLOOD / Unknown Venipuncture / Unknown 11/04/2022 12:58 PM EST 11/04/2022 12:58 PM EST us Jessica Cortes MD HEMATOLOGY ORDERABLES Fin al Result [facility] [address] [facility] , [place] [address] * (ABNORMAL) CBC WITH DIFF (11/04/2022 12:58 PM EST) WBC 8.5 3.7 - 10.3 x10(3)/mcL 11/04/2022 [...] 7:47 PM EST [facility] Platelet 330 155 - 369 x10(3)/mcL 11/04/2022 7:47 PM EST [facility] MPV 10.9 8.8 - 12.5 fL 11/04/2022 7:47 PM EST [facility] Neut Percent 57.3 % 11/04/2022 7:47 PM EST [facility] Comment:Neutrophils equals s egs plus bands Imm Gran% 0.2 % 11/04/2022 7:47 PM EST [facility] Comment:Automated count of m etamyelocytes, myelocytes and promyelocytes. Lymph Percent 24.2 % 11/04/2022 7:47 PM EST [facility] Christian Percent 14.0 % 11/04/2022 7:47 PM EST [facility] Eos Percent 3.5 % 11/04/2022 7:47 PM EST [facility] Baso Percent 0.8 % 11/04/2022 7:47 PM EST [facility] Neut # 4.9 1.6 - 6.1 x10(3)/mcL 11/04/2022 7:47 PM EST [facility] Comment:Neutrophils equals s egs plus bands IMMGRAN# 0.0 0.0 - 0.1 x10(3)/mcL 11/04/2022 7:47 PM EST [facility] Comment:Automated count of m etamyelocytes, myelocytes and promyelocytes. An absolute IG <0.1 is reported as 0.0. Lymph # 2.1 1.2 - 3.9 x10(3)/mcL 11/04/2022 7:47 PM EST [facility] Christian # 1.2(H) 0.3 - 0.9 x10(3)/mcL 11/04/2022 7:47 PM EST [facility] Eos# 0.3 0.0 - 0.5 x10(3)/mcL 11/04/2022 7:47 PM EST [facility] Baso # 0.1 0.0 - 0.1 x10(3)/mcL 11/04/2022 7:47 PM EST [facility], [facility] Blood VENOUS BLOOD / Unknown Venipuncture / Unknown 11/04/2022 12:58 PM EST 11/04/2022 12:58 PM EST us Jessica Cortes MD HEMATOLOGY ORDERABLES Fin al Result [facility] [address] [facility] , [place] [address] * (ABNORMAL) COMPREHENSIVE METABOLIC PANEL (11/04/2022 12:58 PM EST) [facility] Sodium 137 136 - 145 mmol/L 11/04/2022 [...] 8:34 PM EST [facility] Alk Phos 138(H) 36 - 123 U/L 11/04/2022 8:34 PM EST [facility] eGFR (CKD-EPIcr 2020) 92 >=60 mL/min/1.7 3 m2 11/04/2022 8:34 PM EST [facility] Comment:Estimated GFR was ca lculated using the CKD-EPIcr (2020) equation refit without race. The equation is recommended by the National Kidney Foundation - [employer] Nephrology Task Force. Blood VENOUS BLOOD / Unknown Venipuncture / Unknown 11/04/2022 12:58 PM EST 11/04/2022 12:58 PM EST us Jessica Cortes MD CHEMISTRY ORDERABLES Siobhan l Result Performing Organization Address City/[facility] Co de Phone Number [employer] [address] [facility] , [place] [address] [facility] [address] [place] [phone] * (ABNORMAL) C-REACTIVE PROTEIN (11/04/2022 12:58 PM EST) Pathologist [facility] CRP 46.48(H) <=5.00 mg/L 11/04/2022 8:34 PM EST [facility] [employer] [facility] Blood VENOUS BLOOD / Unknown Venipuncture / Unknown 11/04/2022 12:58 PM EST 11/04/2022 12:58 PM EST us Jessica Cortes MD CHEMISTRY ORDERABLES Siobhan l Result Performing Organization Address City/[facility] Co de Phone Number [facility] [employer] [facility] [address] [facility] , [address] [place] [phone] * (ABNORMAL) SEDIMENTATION RATE AUTOMATED (09/03/2022 11:42 AM EST) Pathologist [facility] Sed Rate 34(H) 0 - 30 mm/hr 09/03/2022 3:50 PM EST [facility] Blood VENOUS BLOOD / Unknown Venipuncture / Unknown 09/03/2022 11:42 AM EST 09/03/2022 11:42 AM EST us Jessica Cortes MD HEMATOLOGY ORDERABLES Fin al Result Performing Organization Address City/[facility]/ZIP Co de Phone Number [facility] [address] [place] [address] * (ABNORMAL) CBC WITH DIFF (09/03/2022 11:42 AM EST) Pathologist [facility] WBC 10.5(H) 3.7 - 10.3 x10(3)/mcL 09/03/2022 3:50 PM EST [facility] RBC 4.74 3.90 - 5.20 x10(6)/mcL 09/03/2022 3:50 PM EST [facility] Hgb 13.0 11.2 - 15.7 g/dL 09/03/2022 3:50 PM EST [facility] Hct 41.2 34.0 - 45.0 % 09/03/2022 3:50 PM EST [facility] MCV 86.9 80.0 - 100.0 fL 09/03/2022 3:50 PM EST [facility] MCH 27.4 26.0 - 34.0 pg 09/03/2022 3:50 PM EST [facility] MCHC 31.6 30.7 - 35.5 g/dL 09/03/2022 3:50 PM EST [facility] RDW 14.6 <=14.9 % 09/03/2022 3:50 PM EST [facility] Platelet 376(H) 155 - 369 x10(3)/mcL 09/03/2022 3:50 PM EST [facility] MPV 10.8 8.8 - 12.5 fL 09/03/2022 3:50 PM EST [facility] Neut Percent 60.5 % 09/03/2022 3:50 PM EST [facility] Comment:Neutrophils equals s egs plus bands Imm Gran% 0.7 % 09/03/2022 3:50 PM EST [facility] Comment:Automated count of m etamyelocytes, myelocytes and promyelocytes. Lymph Percent 22.1 % 09/03/2022 3:50 PM EST [facility] Christian Percent 12.3 % 09/03/2022 3:50 PM EST [facility] Eos Percent 3.6 % 09/03/2022 3:50 PM EST [facility] Baso Percent 0.8 % 09/03/2022 3:50 PM EST [facility] Neut # 6.4(H) 1.6 - 6.1 x10(3)/mcL 09/03/2022 3:50 PM EST [facility] Comment:Neutrophils equals s egs plus bands IMMGRAN# 0.1 0.0 - 0.1 x10(3)/mcL 09/03/2022 3:50 PM EST [facility] Comment:Automated count of m etamyelocytes, myelocytes and promyelocytes. An absolute IG <0.1 is reported as 0.0. Lymph # 2.3 1.2 - 3.9 x10(3)/mcL 09/03/2022 3:50 PM EST [facility] Christian # 1.3(H) 0.3 - 0.9 x10(3)/mcL 09/03/2022 3:50 PM EST [facility] Eos# 0.4 0.0 - 0.5 x10(3)/mcL 09/03/2022 3:50 PM EST [facility] Baso # 0.1 0.0 - 0.1 x10(3)/mcL 09/03/2022 3:50 PM EST [facility] Blood VENOUS BLOOD / Unknown Venipuncture / Unknown 09/03/2022 11:42 AM EST 09/03/2022 11:42 AM EST us Jessica Cortes MD HEMATOLOGY ORDERABLES Fin al Result [facility] [address] [facility] , [address] [place] [phone] * (ABNORMAL) COMPREHENSIVE METABOLIC PANEL (09/03/2022 11:42 AM EST) Sodium 142 136 - 145 mmol/L 09/03/2022 6:25 PM EST [facility] Potassium 3.6 3.5 - 5.0 mmol/L 09/03/2022 6:25 PM EST [facility] Chloride 106 98 - 107 mmol/L 09/03/2022 6:25 PM EST [facility] Total CO2 27 22 - 29 mmol/L 09/03/2022 6:25 PM EST [facility] Anion Gap 9 7 - 16 mmol/L 09/03/2022 6:25 PM EST [facility] Calcium 9.0 8.6 - 10.4 mg/dL 09/03/2022 6:25 PM EST [facility] Glucose Lvl 88 74 - 100 mg/dL 09/03/2022 6:25 PM EST [facility] BUN 8 6 - 20 mg/dL 09/03/2022 6:25 PM EST [facility] Creatinine 0.74 0.51 - 1.30 mg/dL 09/03/2022 6:25 PM EST [facility] Albumin 3.5 3.5 - 5.2 gm/dL 09/03/2022 6:25 PM EST [facility] Total Protein 6.3(L) 6.4 - 8.3 gm/dL 09/03/2022 6:25 PM EST [facility] Bili Total 0.2 0.1 - 1.3 mg/dL 09/03/2022 6:25 PM EST [facility] ALT 9 <=41 U/L 09/03/2022 6:25 PM EST [facility] AST 15 <=40 U/L 09/03/2022 6:25 PM EST [facility] Alk Phos 82 36 - 123 U/L 09/03/2022 6:25 PM EST [facility] eGFR (CKD-EPIcr 2020) 97 >=60 mL/min/1.7 3 m2 09/03/2022 6:25 PM EST [facility] Comment:Estimated GFR was ca lculated using the CKD-EPIcr (2020) equation refit without race. The equation is recommended by the National Kidney Foundation - [employer] Nephrology Task Force. Blood VENOUS BLOOD / Unknown Venipuncture / Unknown 09/03/2022 11:42 AM EST 09/03/2022 11:42 AM EST us Jessica Cortes MD CHEMISTRY ORDERABLES Siobhan l Result [facility] [address] [facility] , [place] [address] [facility] [address] [place] [address] * (ABNORMAL) C-REACTIVE PROTEIN (09/03/2022 11:42 AM EST) CRP 45.17(H) <=5.00 mg/L 09/03/2022 6:25 PM EST [facility] Blood VENOUS BLOOD / Unknown Venipuncture / Unknown 09/03/2022 11:42 AM EST 09/03/2022 11:42 AM EST Jessica Cortes MD CHEMISTRY ORDERABLES Siobhan l Result [facility] [employer] [address] [facility] , [address] [place], [place] [phone] documented in this encounter Visit Diagnoses Diagnosis 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 Immunocompromised patient (HCC) Unspecified immunity deficiency Therapeutic drug monitoring Encounter for therapeutic drug monitoring documented in this encounter Care Teams Inpatient Coder Relationship Specialty Start Date End Date Julisa Kerr MD [address] [place] [address] PCP - General 02/22/11 Jessica Cortes MD [address] [address] Internal Medicine-Rheumatology 04/26/16 documented as of this encounter
--- OUTSIDE RECORDS SUMMARY | 2024-08-22 21:44 | XMS_ITS | Encounter Summary ---
Author [place] [address] Care Team Providers Care Blacksmith Helper Name Role Phone Julisa Kerr MD Primary Care Provider [phone] Jessica Cortes MD Unavailable [phone] Encounter Details Date Type Department Care Team (Late st Contact Info) Description 08/05/2022 11:30 AM EST Telemedicine [facility] [address] [place] [address] Thierno Toth MD [address] [place] [address] Edema of left ankle (Primary Dx); Elbow swelling, right Social History Tobacco Use Types Packs/Day [...] End Date predniSONE (DELTASONE) 5 mg Oral TabletIndications:E raudel of left ankle,Elbow swelling, right 3 tabs twice a day x 5 days, 2 tabs twice a day x 5 days, 3 tabs daily x 4 days, 2 tabs daily x 4 days, then 1 tab daily x 5 days. 75 Tablet 08/05/2022 11/04/2022 documented in this encounter Progress Notes * Thierno Toth MD - 08/05/2022 11:30 AM EST Patient presented today for routine care follow-up through a video visit. Patient has reviewed the terms and conditions of service as part of the registration for today's visit. A video visit does not replace a [id number] exam and further services may be necessary. We are conducting her video visit in a private space and this video visit is being conducted in accordance with [facility] telehealth/video visit regulations. HPI: Left knee and right elbow swollen. Has rheumatoid arthritis and believes Review of Systems Constitutional: Negative for fever. [...] Diagnoses and all orders for this visit: Edema of left ankle - predniSONE (DELTASONE) 5 mg Oral Tablet; 3 tabs twice a day x 5 days, 2 tabs twice a day x 5 days, 3 tabs daily x 4 days, 2 tabs daily x 4 days, then 1 tab daily x 5 days. Dispense: 75 Tablet; Refill: 0 Elbow swelling, right - predniSONE (DELTASONE) 5 mg Oral Tablet; 3 tabs twice a day x 5 days, 2 tabs twice a day x 5 days, 3 tabs daily x 4 days, 2 tabs daily x 4 days, then 1 tab daily x 5 days. Dispense: 75 Tablet; Refill: 0 documented in this encounter Plan of Treatment Upcoming Encounters Date Type Department Care Team (Late st Contact Info) Description 08/31/2024 8:30 AM EST Appointment [facility] [address] [place] [address] 10/25/2024 10:45 AM EST Office Visit [facility] [address] [facility] [address] [place] [id number] Jessica Cortes MD [address] [facility] [address] [place] [address] 01/25/2025 9:00 AM EDT Appointment [place] [address] [place] [address] 05/09/2025 11:00 AM EDT Appointment [address] [place] [address] 05/09/2025 11:15 AM EDT Appointment [address] [place] [address] Susana Garay MD [address] [place] [address] [phone] documented as of this encounter Goals Goal Patient Goal Type Associated Problems Recent Progress Patient-Stated? 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, RN documented as of this encounter Visit Diagnoses Diagnosis Edema of left ankle- Primary Elbow swelling, right documented in this encounter Care Teams Blacksmith Helper Relationship Specialty Start Date End Date Julisa Kerr MD [address] [place] [address] PCP - General 02/22/11 Jessica Cortes MD [address] [facility] [address] [place] [address] Internal Medicine-Rheumatology 04/26/16 documented as of this encounter
--- OUTSIDE RECORDS SUMMARY | 2024-08-22 21:44 | XMS_ITS | Encounter Summary ---
Author Organization [facility] [place] [address] Care Team Providers Care Electrical Journeyman Name Role Phone Julisa Kerr MD Primary Care Provider [phone] Jessica Cortes MD Unavailable [phone] Encounter Details Date Type Department Care Team (Latest Contact Info) Description 07/08/2022 Travel Social History Tobacco Use Types Packs/Day [...] Description 08/31/2024 8:30 AM EST Appointment [address] [place] [address] 10/25/2024 10:45 AM EST Office Visit [facility] [address] [facility] [address] [place] [address] Jessica Cortes MD [address] [place] [address] [address] [place] [address] 01/25/2025 9:00 AM EDT Appointment [address] [place] [address] 05/09/2025 11:00 AM EDT Appointment [address] [place] [address] 05/09/2025 11:15 AM EDT Appointment [address] [place] [address] Susana Garay MD [address] [place] [address] [place] [address] documented as of this encounter Goals Goal Patient Goal Type Associated Problems Recent Progress Patient-Stated? Author Maintain a healthy diet, exercise regularly and maintain an ideal body weight General Porsche Ashley, RN documented as of this encounter Visit Diagnoses Not on filedocumented in this encounter Care Teams Electrical Journeyman Relationship Specialty Start Date End Date Julisa Kerr MD [address] [place] [address] PCP - General 02/22/11 Jessica Cortes MD [address] [id number] Internal Medicine-Rheumatology 04/26/16 documented as of this encounter
--- OUTSIDE RECORDS SUMMARY | 2024-08-22 21:44 | XMS_ITS | Encounter Summary ---
Author Organization [place] [address] Care Team Providers Care Diesel Fitter Mechanic Name Role Phone Julisa Kerr MD Primary Care Provider [phone] Jessica Cortes MD Unavailable [phone] Encounter Details Date Type Department Care Team (Latest Contact Info) Description 09/03/2022 11:25 AM EST - 09/03/2022 11:59 PM EST Hospital Encounter [facility] [address] [id number] Rheumatoid arthritis involving multiple sites with positive [...] BY MOUTH TWICE A DAY 60 Tablet 08/27/2022 09/26/2022 leflunomide (ARAVA) 10 mg Oral TabletIndications :Rheumatoid arthritis involving multiple sites with positive rheumatoid factor (HCC) TAKE 1 TABLET BY MOUTH EVERY DAY 30 Tablet 08/27/2022 09/26/2022 documented as of this encounter Discharge Disposition Disposition Code Departure Means Destination Home or Self Care documented in this encounter Plan of Treatment Upcoming Encounters Date Type Department Care Team (Late st Contact Info) Description 08/31/2024 8:30 AM EST Appointment [address] [address] [place] [address] 10/25/2024 10:45 AM EST Office Visit [facility] [address] [place] [address] Jesscia Cortes MD [address] [place] [address] 01/25/2025 9:00 AM EDT Appointment [address] [address] [place] [address] 05/09/2025 11:00 AM EDT Appointment [address] [address] [place] [address] 05/09/2025 11:15 AM EDT Appointment [address] [address] [place] [address] Susana Garay MD [address] [place] [address] [place] [address] documented as of this encounter Goals Goal Patient Goal Type Associated Problems Recent Progress Patient-Stated? 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 RN documented as of this encounter Procedures Procedure Name Priority Date/Time Associated Diagnosis Comments SEDIMENTATION RATE AUTOMATED Routine 09/03/2022 11:42 AM EST Rheumatoid arthritis involving multiple sites with positive rheumatoid factor (HCC) Immunocompromised patient (HCC) Therapeutic drug monitoring CBC WITH DIFF Routine 09/03/2022 11:42 AM EST Rheumatoid arthritis involving multiple sites with positive rheumatoid factor (HCC) Immunocompromised patient (HCC) Therapeutic drug monitoring C-REACTIVE PROTEIN Routine 09/03/2022 11 :42 AM EST Rheumatoid arthritis involving multiple sites with positive rheumatoid factor (HCC) Immunocompromised patient (HCC) Therapeutic drug monitoring COMPREHENSIVE METABOLIC PANEL Routine 09/03/2022 11:42 AM EST Rheumatoid arthritis involving multiple sites with positive rheumatoid factor (HCC) Immunocompromised patient (HCC) Therapeutic drug monitoring documented in this encounter Results * (ABNORMAL) SEDIMENTATION RATE AUTOMATED (09/03/2022 11:42 AM EST) Sed Rate 34(H) 0 - 30 mm/hr 09/03/2022 3:50 PM EST [facility] Blood VENOUS BLOOD / Unknown Venipuncture / Unknown 09/03/2022 11:42 AM EST 09/03/2022 11:42 AM EST Jessica Cortes MD HEMATOLOGY ORDERABLES Fin al Result [facility] [address] [place], [place] [id number] * (ABNORMAL) CBC WITH DIFF (09/03/2022 11:42 AM EST) WBC 10.5(H) 3.7 - 10.3 x10(3)/mcL 09/03/2022 [...] 09/03/2022 3:50 PM EST [facility] MPV 10.8 8.8 - 12.5 fL 09/03/2022 3:50 PM EST [facility] Neut Percent 60.5 % 09/03/2022 3:50 PM EST [facility] Comment:Neutrophils equals s egs plus bands Imm Gran% 0.7 % 09/03/2022 3:50 PM EST [facility] Comment:Automated count of m etamyelocytes, myelocytes and promyelocytes. Lymph Percent 22.1 % 09/03/2022 3:50 PM EST [facility] Stanley Percent 12.3 % 09/03/2022 3:50 PM EST [facility] Eos Percent 3.6 % 09/03/2022 3:50 PM EST [facility] Baso Percent 0.8 % 09/03/2022 3:50 PM EST [facility] Neut # 6.4(H) 1.6 - 6.1 x10(3)/mcL 09/03/2022 3:50 PM EST [facility] Comment:Neutrophils equals s egs plus bands IMMGRAN# 0.1 0.0 - 0.1 x10(3)/mcL 09/03/2022 3:50 PM EST [facility] Comment:Automated count of m etamyelocytes, myelocytes and promyelocytes. An absolute IG <0.1 is reported as 0.0. Lymph # 2.3 1.2 - 3.9 x10(3)/mcL 09/03/2022 3:50 PM EST [facility] Stanley # 1.3(H) 0.3 - 0.9 x10(3)/mcL 09/03/2022 3:50 PM EST [facility] Eos# 0.4 0.0 - 0.5 x10(3)/mcL 09/03/2022 3:50 PM EST [facility] Baso # 0.1 0.0 - 0.1 x10(3)/[facility] 09/03/2022 3:50 PM EST [facility] Blood VENOUS BLOOD / Unknown Venipuncture / Unknown 09/03/2022 11:42 AM EST 09/03/2022 11:42 AM EST us Jessica Cortes MD HEMATOLOGY ORDERABLES Fin al Result [facility] , [place] [address] * (ABNORMAL) COMPREHENSIVE METABOLIC PANEL (09/03/2022 11:42 [...] 6:25 PM EST [facility] Glucose Lvl 88 74 - 100 mg/dL 09/03/2022 6:25 PM EST [facility] BUN 8 6 - 20 mg/dL 09/03/2022 6:25 PM EST [facility] Creatinine 0.74 0.51 - 1.30 mg/dL 09/03/2022 6:25 PM EST [facility] Albumin 3.5 3.5 - 5.2 gm/dL 09/03/2022 6:25 PM EST [facility] Total Protein 6.3(L) 6.4 - 8.3 gm/dL 09/03/2022 6:25 PM EST [facility] Bili Total 0.2 0.1 - 1.3 mg/dL 09/03/2022 6:25 PM EST [facility] ALT 9 <=41 U/L 09/03/2022 6:25 PM EST [facility] AST 15 <=40 U/L 09/03/2022 6:25 PM EST [facility] Alk Phos 82 36 - 123 U/L 09/03/2022 6:25 PM EST [facility] [employer] eGFR (CKD-EPIcr 2020) 97 >=60 mL/min/1.7 3 m2 09/03/2022 6:25 PM EST [facility] Comment:Estimated GFR was ca lculated using the CKD-EPIcr (2020) equation refit without race. The equation is recommended by the National Kidney Foundation - [place] Society of Nephrology Task Force. Blood VENOUS BLOOD / Unknown Venipuncture / Unknown 09/03/2022 11:42 AM EST 09/03/2022 11:42 AM EST Jessica Cortes MD CHEMISTRY ORDERABLES Siobhan l Result Performing Organization Address [facility] Co de Phone Number [facility] [employer] [address] , [place] [address] [facility] [address] [place] [address] * (ABNORMAL) C-REACTIVE PROTEIN (09/03/2022 11:42 AM EST) CRP 45.17(H) <=5.00 mg/L 09/03/2022 6:[address] [facility] Blood VENOUS BLOOD / Unknown Venipuncture / Unknown 09/03/2022 11:42 AM EST 09/03/2022 11:42 AM EST Jessica Cortes MD CHEMISTRY ORDERABLES Siobhan l Result Performing Organization Address [facility] Co de Phone Number [facility] [employer] , [place] [address] documented in this encounter Visit Diagnoses Diagnosis Rheumatoid arthritis involving multiple sites with positive rheumatoid factor (HCC) Immunocompromised patient (HCC) Unspecified immunity deficiency Therapeutic drug monitoring Encounter for therapeutic drug monitoring documented in this encounter Care Teams Diesel Fitter Mechanic Relationship Specialty Start Date End Date Julisa Kerr MD [address] [place] [address] PCP - General 02/22/11 Jessica Cortes MD [address] [place] [address] Internal Medicine-Rheumatology 04/26/16 documented as of this encounter
--- OUTSIDE RECORDS SUMMARY | 2024-08-22 21:44 | XMS_ITS | Encounter Summary ---
Author Organization [place] [address] Care Team Providers Care Tubing Oiler Name Role Phone Julisa Kerr MD Primary Care Provider [phone] Jessica Cortes MD Unavailable [phone] Reason for Visit * Reason Comments Joint Swelling Right elbow swelling and pain since yesterday/ fracture same elbow 2 years ago/ patient currently on prednisone for an RA flare Encounter Details Date Type Department Care Team (Late st Contact Info) Description 07/27/2022 1:40 PM EDT - 07/27/2022 2:13 PM EDT Emergency [facility] Emergency [address] [place] [address] Efrain Antonio MD [address] [place] [address] Olecranon bursitis of right elbow (Primary Dx) Discharge Disposition: Home or Self [...] PM EDT documented as of this encounter Last Filed Vital Signs Vital Sign Reading Time Taken Comments Blood Pressure 150/86 07/27/2022 2:13 PM EDT Pulse 98 07/27/2022 2:13 PM EDT Temperature 36.7 ??C (98 ??F) 07/27/2022 1:38 PM EDT Respiratory Rate 12 07/27/2022 2:13 PM EDT Oxygen Saturation 98% 07/27/2022 2:13 PM EDT Inhaled Oxygen Concentration - - Weight 59.9 kg (132 lb) 07/27/2022 1:38 PM EDT Height 157.5 cm (5' 2 ) 07/27/2022 1:38 PM EDT Body Mass Index 24.14 07/27/2022 1:38 PM EDT documented in this encounter Functional [...] Albin Levy MA documented in this encounter Discharge Instructions * Discharge Instructions* Efrain Antonio MD - 07/27/2022 1:56 PM EDT Call 911 or go to the nearest Emergency Department immediately for worsening symptoms or any new orsevere symptoms, which include but are not limited to increasing or new pain, difficulty breathing,chest pain, lightheadedness, difficulty moving/talking, sensory loss, difficulty to control your bowel or bladder function, altered level of consciousness, neck stiffness, intractable nausea/vomiting, intractable pain, inability to tolerate oral hydration with fluids, fever >101, chills, severe or persistent bleeding, or any other concerns. * Attachments The following attachments cannot be sent through Care Everywhere. * Bursitis ([place]au[place]) documented in this encounter Medications at Time [...] EVERY DAY 30 Tablet 1 06/28/2022 08/27/2022 predniSONE (DELTASONE) 20 mg Oral TabletIndications :Edema of left ankle Take 2 Tablets by mouth daily for 5 days. 10 Tablet 07/23/2022 07/28/2022 documented as of this encounter Discharge Disposition Disposition Code Departure Means Destination Comment s Home or Self Long Term documented in this encounter ED Notes * Efrain Antonio MD - 07/27/2022 1:34 PM EDT ED Attending Note Joint Swelling (Right elbow swelling and pain since yesterday/ fracture same elbow 2 years ago/ patient currently on prednisone for an RA flare) Interval History: Yuliet Trevino is a 51 y.o. female presenting to the ED for evaluation of right elbow swelling. Patient states she noticed this last night. Patient showed me a picture and it was significantly swollen last night. Patient states it has gone down. She is currently taking prednisone for rheumatoid arthritis flare. She denies any fevers or chills. Denies any issues with range of motion of her elbow. Denies any redness or drainage from her elbow. Denies any other concerns at this time. Past Medical History: Diagnosis Date ??? Antiphospholipid syndrome (HCC) ??? Arthritis ??? DVT (deep venous thrombosis) ([facility]) 06/08/2022 Right Past Surgical History: Procedure Laterality Date ??? HYSTEROSCOPY ??? IR 2 LEVEL TRANSFORAMINAL EPIDURAL INJ CERVICAL SPINE 06/2021 ??? BARBIE AND BSO 09/29/2000 Social History Socioeconomic History ??? Marital status: Spouse name: Not on file ??? Number of children: Not on file ??? Years of education: Not on file ??? Highest education level: Not on file Occupational History ??? Not on file Tobacco Use ??? Smoking status: Never ??? Smokeless tobacco: Never Vaping Use ??? Vaping Use: Never used Substance and Sexual Activity ??? Alcohol use: Yes Comment: occasional ??? Drug use: No ??? Sexual activity: Yes Other Topics Concern ??? Not on file Social History Narrative ??? Not on file Social Determinants of Health Financial Resource Strain: Not on file Food Insecurity: Not on file Transportation Needs: Not on file Physical Activity: Not on file Stress: Not on file Social Connections: Not on file Intimate Partner Violence: Not on file Housing Stability: Not on file Review of Systems: (+) positive All systems negative except as marked. Constitutional: Negative for fever HENT: Negative for sore throat. Eyes: Negative for visual changes Respiratory: Negative for SOB, cough Cardiovascular: Negative for chest pain, palpitations Gastrointestinal: Negative for abdominal pain, nausea, vomiting, diarrhea Genitourinary: Negative for difficulty urinating, hematuria, dysuria Musculoskeletal: +elbow pain Skin: Negative for rash, itching Neurological: Negative for HICKS, dizziness, weakness, numbness, tingling Psychiatric: Negative for SI, hallucinations, anxiety Vitals: 07/27/22 1338 07/27/22 1342 BP: 153/89 Pulse: 113 Resp: 19 Temp: 98 ??F (36.7 ??C) TempSrc: Skin SpO2: 98% Weight: 132 lb (59.9 kg) Height: 5' 2 (1.575 m) Exam: Constitutional: well developed, well nourished, no acute distress HENT: normocephalic, atraumatic, moist oral mucosa, conjunctiva normal Eyes: PERRL, EOMi Neck: supple, normal ROM Cardiovascular: regular rate and rhythm, no murmur Respiratory: clear to auscultation bilaterally, no wheezes, no respiratory distress Abdomen: soft, non-tender, non-distended Musculoskeletal: Swelling to the olecranon bursa on the right side, 2+ distal pulses, normal sensation, easy range of motion, no erythema Skin: warm, dry, no lesions Neurological: awake, alert&Ox4, moving all extremities, no focal motor/sensation deficits. Psychiatric: mood and affect normal Medical Decision Makin. Patient is a 51-year-old female who presents to the emergency department for evaluation of rightelbow swelling. This time patient has an olecranon bursitis. It does appear to have gone down significantly from her picture from last night. At this time instructed her to rest her elbow as well as take ibuprofen/Tylenol as needed for pain. Given strict return precautions for any signs of infection. Results: Labs Reviewed - No data to display No orders to display ED course: The patient's Oxygen Saturation Monitor was interpreted by me. The reading was 98%. The patient wason room air at the time of the reading. This is interpreted as normal. Discussed all pertinent labs and imaging with the patient. They voice understanding of the workup and findings. They were in agreement with discharge and following up with their primary care physician. Given strict return precautions and amenable to discharge. Orders and Medicine administered during this encounter: No orders of the defined types were placed in this encounter. Medications - No data to display Clinical Impression: 1. Olecranon bursitis of right elbow Scripts: Disposition: DC Follow-up: Efrain Antonio MD 07/27/22 1359 documented in this encounter Plan of Treatment Upcoming Encounters Date Type Department Care Team (Late st Contact Info) Description 08/31/2024 8:30 AM EST Appointment [address] [place] [address] 10/25/2024 10:45 AM EST Office Visit [facility] [address] [place] [phone] Jessica Cortes MD [address] [place] [address] 01/25/2025 9:00 AM EDT Appointment [address] [address] 05/09/2025 11:00 AM EDT Appointment [address] [address] 05/09/2025 11:15 AM EDT Appointment [address] [address] Susana Garay MD [address] [place], [place] [id number] documented as of this encounter Goals Goal Patient Goal Type Associated Problems Recent Progress Patient-Stated? 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, RN documented as of this encounter Visit Diagnoses Diagnosis Olecranon bursitis of right elbow- Primary Olecranon bursitis documented in this encounter Care Teams Tubing Oiler Relationship Specialty Start Date End Date Julisa Kerr MD [address] [place] [address] PCP - General 02/22/11 Jessica Cortes MD [address] [facility] [address] [place] [address] Internal Medicine-Rheumatology 04/26/16 documented as of this encounter
--- OUTSIDE RECORDS SUMMARY | 2024-08-22 21:44 | XMS_ITS | Encounter Summary ---
Author Organization [place] [address] Care Team Providers Care Customer Experience Intern Name Role Phone Julisa Kerr MD Primary Care Provider [phone] Jessica Cortes MD Unavailable [phone] Reason for Visit * Reason Onset Date Comments Other 07/09/2022 Lab redraw Encounter Details Date Type Department Care Team (Late st Contact Info) Description 07/09/2022 Telephone [facility] [address] [address] Mary Delgado MA Other (Lab redraw) Social History Tobacco Use Types Packs/Day Years [...] encounter Miscellaneous Notes * Telephone Encounter - Mary Delgado MA - 07/09/2022 9:11 AM EDT LVM for Belinda that she would need to come back to us or any [facility] lab to have her Lupus panel redrawn per lab. documented in this encounter Plan of Treatment Upcoming Encounters Date Type Department Care Team (Late st Contact Info) Description 08/31/2024 8:30 AM EST Appointment [facility] [address] [place] [address] 10/25/2024 10:45 AM EST Office Visit [facility] [address] [facility] [address] [place] [address] Jessica Cortes MD [address] [address] 01/25/2025 9:00 AM EDT Appointment [address] [address] [place] [address] 05/09/2025 11:00 AM EDT [address]ointment [address] [place] [address] 05/09/2025 11:15 AM EDT Appointment [address] [address] [place] [address] Susana Garay MD [address] [place] [address] [place] [address] documented as of this encounter Goals Goal Patient Goal Type Associated Problems Recent Progress Patient-Stated? 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 RN documented as of this encounter Visit Diagnoses Not on filedocumented in this encounter Care Teams Customer Experience Intern Relationship Specialty Start Date End Date Julisa Kerr MD [address] [place] [address] PCP - General 02/22/11 Jessica Cortes MD [address] [address] Internal Medicine-Rheumatology 04/26/16 documented as of this encounter
--- OUTSIDE RECORDS SUMMARY | 2024-08-22 21:44 | XMS_ITS | Encounter Summary ---
Author Organization [facility] [place] [address] Care Team Providers Care Salvager Name Role Phone Julisa Kerr MD Primary Care Provider [phone] Jessica Cortes MD Unavailable [phone] Encounter Details Date Type Department Care Team (Latest Contact Info) Description 07/18/2022 Travel Social History Tobacco Use Types Packs/Day [...] Description 08/31/2024 8:30 AM EST Appointment [address] [place] [address] 10/25/2024 10:45 AM EST Office Visit [facility] [address] [facility] [address] [place] [address] Jessica Cortes MD [address] [place] [address] [address] [place] [address] 01/25/2025 9:00 AM EDT Appointment [address] [place] [address] 05/09/2025 11:00 AM EDT Appointment [address] [place] [address] 05/09/2025 11:15 AM EDT Appointment [address] [place] [address] Susana Garay MD [address] [place] [address] [place] [address] documented as of this encounter Goals Goal Patient Goal Type Associated Problems Recent Progress Patient-Stated? Author Maintain a healthy diet, exercise regularly and maintain an ideal body weight General Porsche Ashley, RN documented as of this encounter Visit Diagnoses Not on filedocumented in this encounter Care Teams Salvager Relationship Specialty Start Date End Date Julisa Kerr MD [address] [place] [address] PCP - General 02/22/11 Jessica Cortes MD [address] [phone] Internal Medicine-Rheumatology 04/26/16 documented as of this encounter
--- OUTSIDE RECORDS SUMMARY | 2024-08-22 21:44 | XMS_ITS | Encounter Summary ---
Author Organization [facility] [place] [address] Care Team Providers Care Manufacturing Finance Manager Name Role Phone Julisa Kerr MD Primary Care Provider [phone] Jessica Cortes MD Unavailable [phone] Encounter Details Date Type Department Care Team (Latest Contact Info) Description 06/28/2022 Travel Social History Tobacco Use Types Packs/Day [...] suspected to have Coronavirus/COVID-19? No / Unsure 06/28/2022 2:38 PM EDT documented as of this encounter [...] Description 08/31/2024 8:30 AM EST Appointment [address] [place] [address] 10/25/2024 10:45 AM EST Office Visit [facility] [address] [facility] [address] [place] [address] Jessica Cortes MD [address] [place] [address] [address] [place] [address] 01/25/2025 9:00 AM EDT Appointment [address] [place] [address] 05/09/2025 11:00 AM EDT Appointment [address] [place] [address] 05/09/2025 11:15 AM EDT Appointment [address] [place] [address] Susana Garay MD [address] [place] [address] [place] [address] documented as of this encounter Goals Goal Patient Goal Type Associated Problems Recent Progress Patient-Stated? Author Maintain a healthy diet, exercise regularly and maintain an ideal body weight General Porsche Ashley, RN documented as of this encounter Visit Diagnoses Not on filedocumented in this encounter Care Teams Manufacturing Finance Manager Relationship Specialty Start Date End Date Julisa Kerr MD [address] [place] [address] PCP - General 02/22/11 Jessica Cortes MD [address] [phone] Internal Medicine-Rheumatology 04/26/16 documented as of this encounter
--- OUTSIDE RECORDS SUMMARY | 2024-08-22 21:44 | XMS_ITS | Encounter Summary ---
Author Organization [place] [address] Care Team Providers Care Weigh Box Tender Name Role Phone Julisa Kerr MD Primary Care Provider [phone] Jessica Cortes MD Unavailable [phone] Reason for Visit * Reason Comments Consult DVT * Consultation (Routine) - Closed Specialty Diagnoses / Procedures Referred By Contac t Referred To Contact Internal Medicine-Hematology and Oncology / Oncology Diagnoses Acute deep vein thrombosis (DVT) of popliteal vein of right lower extremity (HCC) Thierno Toth MD [address] [place] [address] Phone: tel: fax: Susana Garay MD [address] [place] [address] Phone: tel: fax: Referral ID Status Reason Start Date Expiration Date Visits Re quested Visits Authorized [id number] Closed 06/11/2022 06/11/2023 99 99 Encounter Details Date Type Department Care Team (Latest Contact Info) Description 07/08/2022 3:10 PM EDT Hospital Encounter [facility] [address] [place] [address] Susana Garay MD [address] [place] [address] [place] [address] Acute deep vein thrombosis (DVT) of popliteal vein of right lower extremity (HCC) (Primary Dx) Discharge Disposition: Home or [...] Sign Reading Time Taken Comments Blood Pressure 140/91 07/08/2022 3:55 PM EDT Pulse 79 07/08/2022 3:55 PM EDT Temperature - - Respiratory Rate 18 07/08/2022 3:55 PM EDT Oxygen Saturation 100% 07/08/2022 3:55 PM EDT Inhaled Oxygen Concentration - - Weight 59.7 kg (131 lb 9.6 oz) 07/08/2022 3:55 P M EDT Height - - Body Mass Index 24.07 06/28/2022 3:32 PM EDT documented in this encounter Functional [...] 06/28/2022 08/27/2022 documented as of this encounter Ordered Prescriptions Prescription Sig Dispense Quantity Refills Last Filled Start Date End Date apixaban (ELIQUIS) 5 mg Oral Tablet Take 1 Tablet by mouth 2 times daily. 60 Tablet 2 07/08/2022 10/03/2022 documented in this encounter Discharge Disposition Disposition Code Departure Means Destination Home or Self Care documented in this encounter Progress Notes * Susana Garay MD - 07/08/2022 3:15 PM EDT Images from the original note were not included. Patient: Yuliet Trevino [facility]: [id number] Date of : 1970 Age: 51 y.o. Date of Service: 07/08/2022 HEMATOLOGY/ONCOLOGY NEW PATIENT OFFICE NOTE Primary Care Physician: Julisa Kerr MD Referring Physician: Janey, Thierno Dajuan,* Reason for Referral: DVT HISTORY OF PRESENT ILLNESS: Patient is a 51 y.o. female who presents for Chief Complaint Patient presents with ??? Consult DVT Presents for eval and recs re: dx of a RLE popliteal DVT 05/15/22 after several weeks of RA flare ofher knees w/ sig swelling (knee swelling is an atypical site of RA flare) and had a Rt knee injection at urgent care but also had a D-dimer checked which was elevated and she was referred to the ER for doppler which revealed a RLE DVT. Denies any personal or FHx of clots, no h/o miscarriages Prior to the clot, no surgery, no prolonged immobility no travel, no injury with the exception of the B/L knee swelling. 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 Is currently onMTX/folate, arava, simponi, plaquenil and currently is on a prednisone taper. Non smoker. Occ EtOH. PHYSICAL EXAM: Vitals: 07/08/22 1555 BP: 140/91 Pulse: 79 Resp: 18 SpO2: 100% Wt Readings from Last 3 Encounters: 07/08/22 131 lb 9.6 oz (59.7 kg) 06/28/22 128 lb 9.6 oz (58.3 kg) 06/19/22 131 lb (59.4 kg) ECO Physical Exam Constitutional: General: She is not in acute distress. Pulmonary: Effort: Pulmonary effort is normal. No respiratory distress. Musculoskeletal: General: Deformity (+ joint deformity of wrist w/ ulnar deviation) present. Neurological: Mental Status: She is alert and oriented to person, place, and time. Psychiatric: Mood and Affect: Mood and affect normal. MEDICAL DATA REVIEW: Medication, Allergies, Labs, Images, Path Reviewed. Records from rheum reviewed. ASSESSMENT & PLAN Yuliet was seen today for consult. Diagnoses and all orders for this visit: Acute deep vein thrombosis (DVT) of popliteal vein of right lower extremity (HCC) - LUPUS ANTICOAGULANT PANEL -REF LAB; Future - CARDIOLIPIN ANTIBODIES IGG/ IGM-REF LAB; Future - [id number] 1 ABS, IGG/IGM/IGA -REF LAB; Future Other orders - apixaban (ELIQUIS) 5 mg Oral Tablet; Take 1 Tablet by mouth 2 times daily. Acute DVT - Poss provoked by swelling of knee, poss provoked by acquired immune mediated hypercoagulable state (eg. anticardiolipin, LLAC, APS synd). No personal or FHx of clots, no indication for inherited hypercoag testing. If no e/o acquqired hypercoag state, then will recommend NOAC x 3 months then stopping as long as no recurrence of knee swelling but if e/o LLAC, B2GP or anticardiolipin will need indefinate AC (if more 2 or 3 of those Abs are pos, will recommend switch to coumadin. - Cont NOAC fro now - Check LLAC, cardiolipin ABs, B2GP Pain - Related to RA flares, resolved at the moment due to prednisone taper. Advance Directives: Living Will and POA: To be arranged Code status: To be addressed. Dispo: Return for Needs labs checked today, F/u TBD based on results. Thank you for the opportunity to assist in the care of this patient, please feel free to contact meif I can be of any assistance. Susana Garay MD Hematology and Medical Oncology [facility] documented in this encounter Miscellaneous Notes * Addendum Note - Mary Delgado MA - 07/08/2022 3:15 PM EDTEncounter addended by: Mary Delgado MA on: 07/09/2022 8:03 AM Actions taken: Order list changed, Diagnosis association updated documented in this encounter Plan of Treatment Upcoming Encounters Date Type Department Care Team (Late st Contact Info) Description 08/31/2024 8:30 AM EST Appointment [facility] [address] [place] [address] 10/25/2024 10:45 AM EST Office Visit [facility] [address] [facility] [address] [place] [address] Jessica Cortes MD [address] [facility] [address] [id number] 01/25/2025 9:00 AM EDT [facility]ointment [facility] [place] [address] [place] [address] 05/09/2025 11:00 AM EDT Appointment [place] [address] [place] [address] 05/09/2025 11:15 AM EDT Appointment [place] [address] [place] [address] Susana Garay MD [address] [place] [address] [place] [address] documented as of this encounter Goals Goal Patient Goal Type Associated Problems Recent Progress Patient-Stated? 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 RN documented as of this encounter Results * (ABNORMAL) LUPUS ANTICOAGULANT PANEL -REF LAB (07/18/2022 12:54 PM EDT) PT D 14.1 12.0 - 15.5 sec 07/24/2022 8:01 PM EDT [facility] PTT D 46 32 - 48 sec 07/24/2022 8:01 PM EDT [facility] Thrombin Time Not Applicable 14.7 - 19.5 sec 07/24/2022 8:01 PM EDT [facility] Reptilase Pat Not Applicable <=21.9 sec 07/24/2022 8:01 PM EDT [facility] PTT Hep Neut Not Applicable 32 - 48 sec 07/24/2022 8:01 PM EDT [facility] PTT Christophe Rflx Not Applicable 32 - 48 sec 07/24/2022 8:01 PM EDT [facility] Plt Neut Not Applicable Negative 07/24/2022 8:01 PM EDT [facility] DRVVT 52(H) 33 - 44 sec 07/24/2022 8:01 PM EDT [facility] DRV Christophe 46(H) 33 - 44 sec 07/24/2022 8:01 PM EDT [facility] DRVVT Confirm Negative Negative ratio 07/24/2022 8:01 PM EDT [facility] Hexag Phos Rflx Negative Negative 8:01 PM EDT [facility] Lupus Anticoagulant Interp See Note 07/24/2022 8:01 PM EDT [facility] Comment: Lupus anticoagulant not detected. The DRVVT [...] has not already been performed. Performed by [facility], [address] [place] [id number] [email or web address], Thierno Cintron MD, PHD, Lab. Director Blood VENOUS BLOOD / Unknown Venipuncture / Unknown 07/18/2022 12:54 PM EDT 07/18/2022 12:54 PM EDT us Susana Garay MD CHEMISTRY ORDERABLES Final Re sult [facility] [address] [place] [address] * [id number] 1 ABS, IGG/IGM/IGA -REF LAB (07/08/2022 4:25 PM EDT) B2 GP 1 IgG <10 <=20 SGU 07/10/2022 11:24 PM EDT [facility] B2 GP 1 IgM 17 <=20 SMU 07/10/2022 11:24 PM EDT [facility] Comment: INTERPRETIVE INFORMATION: [id number] I, IgG and IgM Antibody The persistent presence of IgG and/or IgM beta 2 glycoprotein I (B2GPI) antibodies is a laboratory criterion for the diagnosis of antiphospholipid syndrome (APS). Persistence is defined as moderate or high levels of IgG and/or IgM B2GPI antibodies detected in two or more specimens drawn at least 12 weeks apart (J Throm Haemost. 2006;4:295-306). B2GPI results greater than 20 SGU (IgG) and/or SMU (IgM) are considered positive based on the cutoff values established for this test. International reference materials and consensus units for anti-B2GPI antibodies have not been established (Clin Lenard Acta. 2012;413(1-2):358-60; Arthritis Rheum. 2012;64(1):1-10.); results can be variable between different commercial immunoassays and cannot be compared. Strong clinical correlation is recommended for a diagnosis of APS. Low positive IgG and IgM B2GPI antibody levels should be interpreted in light of APS-specific clinical manifestations and/or other criteria phospholipid antibody tests. B2 GP 1 IgA <10 <=20 MERLY 07/10/2022 11:24 PM EDT [facility] Comment: Performed By: [facility] [address] [place] [address] Weight Guesser: Thierno Cintron MD, PhD Blood VENOUS BLOOD / Unknown Venipuncture / Unknown 07/08/2022 4:25 PM EDT 07/08/2022 4:49 PM EDT us Susana Garay MD CHEMISTRY ORDERABLES Final Re sult [facility] [address] [place], [place] [id number] * (ABNORMAL) CARDIOLIPIN ANTIBODIES IGG/ IGM-REF LAB (07/08/2022 4:25 PM EDT) Cardiolipin IgG Antibody <10 <=14 GPL 07/10/2022 4:32 PM EDT [facility] Comment: INTERPRETIVE INFORMATION: Anti-Cardiolipin IgG Ab <=14 [...] criteria phospholipid antibody tests. Cardiolipin IgM Antibody 35(H) <=12 MPL 07/10/2022 4:32 PM EDT [facility] Comment: INTERPRETIVE INFORMATION: Anti-Cardiolipin IgM <=12 MPL: [...] other criteria phospholipid antibody tests. Performed By: [facility] [address] [place] [address] Weight Guesser: Thierno Cintron MD, PhD Blood VENOUS BLOOD / Unknown Venipuncture / Unknown 07/08/2022 4:25 PM EDT 07/08/2022 4:49 PM EDT us Susana Garay MD IMMUNOLOGY ORDERABLES Final R esult [facility] [address] [id number] documented in this encounter Visit Diagnoses Diagnosis Acute deep vein thrombosis (DVT) of popliteal vein of right lower extremity (HCC)- Primary documented in this encounter Discontinued Medications Medication Sig Discontinue Reason Start Date End Da te methylPREDNISolone (MEDROL DOSPACK) 4 mg Oral Tablets, Dose PackIndications:Acut e pain of left knee See package instructions Stopped by patient - ineffective 06/06/2022 07/08/2022 ELIQUIS 5 mg Oral Tablet TAKE 2 TABLETS BY MOUTH TWICE DAILY FOR 7 DAYS THEN TAKE 1 TABLET BY MOUTH TWICE DAILY FOR 30 DAYS Cancelled by 05/15/2022 07/08/2022 documented as of this encounter Orders Lab Orders Without Results Count Last Ordered D ate First Ordered Date LUPUS ANTICOAGULANT PANEL -REF LAB 1 2021 documented in this encounter Care Teams Weigh Box Tender Relationship Specialty Start Date End Date Julisa Kerr MD [address] [place] [address] PCP - General 02/22/11 Jessica Cortes MD [address] [id number] Internal Medicine-Rheumatology 04/26/16 documented as of this encounter
--- OUTSIDE RECORDS SUMMARY | 2024-08-22 21:44 | XMS_ITS | Encounter Summary ---
Author Organization [place] [address] Care Team Providers Care Retail Analyst Name Role Phone Julisa Kerr MD Primary Care Provider [phone] Jessica Cortes MD Unavailable [phone] Reason for Visit * Reason Comments Pharmacy Rheumatology Management Simponi Encounter Details Date Type Department Care Team (Latest Contact Info) Description 07/05/2022 Specialty Pharmacy [facility] [address] [id number] Priti Clayton CPhT Pharmacy Rheumatology Management (Simponi) Social History [...] in this encounter Progress Notes * Priti Clayton CPhT - 07/05/2022 2:04 PM EDT Specialty Pharmacy Refill Coordination Note Yuliet Trevino is a 51 y.o. female contacted today regarding refills of her Simponi. RTS until 07/06. No answer, left voicemail to call [phone], option 4. * Yolanda Bedolla CPhT - 07/05/2022 2:04 PM EDT Specialty Pharmacy Refill Coordination Note Yuliet Trevino is a 51 y.o. female contacted today regarding refills of her Simponi. After running script PA is needed. No answer left voicemail to call [phone]. * Jessi Spencer CPhT - 07/05/2022 2:04 PM EDT Specialty Pharmacy Refill Coordination Note Yuliet Trevino is a 51 y.o. female contacted today regarding refills of her Simponi . Spoke with patient. EXCEEDING QUANTITY LIMIT; PRIOR AUTHORIZ ATION REQUIRED CALL [phone] * Che Wells RPH - 07/05/2022 2:04 PM EDT [facility] Patient's dose increased. Changed to 100mg pen rather than 2 50mg pens and no PA needed. Patient copay $0. Will route for IA for dose increase. documented in this encounter Plan of Treatment Upcoming Encounters Date Type Department Care Team (Late st Contact Info) Description 08/31/2024 8:30 AM EST Appointment [place] [address] [place] [address] 10/25/2024 10:45 AM EST Office Visit [facility] [address] [facility] [address] [place] [address] Jessica Cortes MD [address] [facility] [address] [phone] 01/25/2025 9:00 AM EDT Appointment [place] [address] [place] [address] 05/09/2025 11:00 AM EDT Appointment [place] [address] [place] [address] 05/09/2025 11:15 AM EDT [address]ointment [address] [place] [place] [address] Susana Garay MD [address] [place] [address] documented as of this encounter Goals Goal Patient Goal Type Associated Problems Recent Progress Patient-Stated? Author Maintain a healthy diet, exercise regularly and maintain an ideal body weight General Porsche Ashley, RN documented as of this encounter Visit Diagnoses Not on filedocumented in this encounter Care Teams Retail Analyst Relationship Specialty Start Date End Date Julisa Kerr MD [address] [place], [place] [phone] PCP - General 02/22/11 Jessica Cortes MD [address] [address] Internal Medicine-Rheumatology 04/26/16 documented as of this encounter
--- OUTSIDE RECORDS SUMMARY | 2024-08-22 21:44 | XMS_ITS | Encounter Summary ---
Author Organization [facility] [place] [address] Care Team Providers Care Smoking Tobacco Packing Machine Hand Name Role Phone Julisa Kerr MD Primary Care Provider [phone] Jessica Cortes MD Unavailable [phone] Encounter Details Date Type Department Care Team (Latest Contact Info) Description 08/05/2022 Travel Social History Tobacco Use Types Packs/Day [...] Description 08/31/2024 8:30 AM EST [address]ointment [address] [place] [address] 10/25/2024 10:45 AM EST Office Visit [facility] [address] [facility] [address] [place] [address] Jessica Cortes MD [address] [place] [address] Building [address] [place] [address] 01/25/2025 9:00 AM EDT Appointment [address] [place] [address] 05/09/2025 11:00 AM EDT Appointment [address] [place] [address] 05/09/2025 11:15 AM EDT Appointment [address] [place] [address] Susana Garay MD [address] [place] [address] [place] [address] documented as of this encounter Goals Goal Patient Goal Type Associated Problems Recent Progress Patient-Stated? Author Maintain a healthy diet, exercise regularly and maintain an ideal body weight General Porsche Ashley, RN documented as of this encounter Visit Diagnoses Not on filedocumented in this encounter Care Teams Smoking Tobacco Packing Machine Hand Relationship Specialty Start Date End Date Julisa Kerr MD [address] [place] [address] PCP - General 02/22/11 Jessica Cortes MD [address] [place] [phone] Internal Medicine-Rheumatology 04/26/16 documented as of this encounter
--- OUTSIDE RECORDS SUMMARY | 2024-08-22 21:44 | XMS_ITS | Encounter Summary ---
Author Organization [facility] [address] Care Team Providers Care Treatment Manager Name Role Phone Julisa Kerr MD Primary Care Provider [phone] Jessica Cortes MD Unavailable [phone] Encounter Details Date Type Department Care Team (Latest Contact Info) Description 09/03/2022 Travel Social History Tobacco Use Types Packs/Day [...] Description 08/31/2024 8:30 AM EST Appointment [address] [place] [address] 10/25/2024 10:45 AM EST Office Visit [facility] [address] [facility] [address] [place] [address] Jessica Cortes MD [address] [place] [address] 19 [place] [address] 01/25/2025 9:00 AM EDT Appointment [address] [place] [address] 05/09/2025 11:00 AM EDT Appointment [address] [place] [address] 05/09/2025 11:15 AM EDT Appointment [address] [place] [address] Susana Garay MD [address] [place] [address] [address] [phone] documented as of this encounter Goals Goal Patient Goal Type Associated Problems Recent Progress Patient-Stated? Author Maintain a healthy diet, exercise regularly and maintain an ideal body weight General Porsche Ashley, RN documented as of this encounter Visit Diagnoses Not on filedocumented in this encounter Care Teams Treatment Manager Relationship Specialty Start Date End Date Julisa Kerr MD [address] [place] [address] PCP - General 02/22/11 Jessica Cortes MD [address] [address] Internal Medicine-Rheumatology 04/26/16 documented as of this encounter
--- OUTSIDE RECORDS SUMMARY | 2024-08-22 21:44 | XMS_ITS | Encounter Summary ---
Author Organization [place] [address] Care Team Providers Care Slate Roofer Name Role Phone Julisa Kerr MD Primary Care Provider [phone] Jessica Cortes MD Unavailable [phone] Reason for Visit * Reason Comments Follow-up Rheumatoid Arthritis Osteoarthritis Encounter Details Date Type Department Care Team (Latest Contact Info) Description 09/09/2022 3:45 PM EST Telemedicine SEP Rheumatology [facility] [address] [facility] Building [address] [place] [phone] Jessica Cortes MD [address] [id number] Rheumatoid arthritis involving multiple sites with positive rheumatoid factor (HCC) (Primary Dx); Raynaud's phenomenon without gangrene; Positive BRET (antinuclear antibody); Sicca syndrome (HCC); Neck pain; Age-related osteoporosis without current pathological fracture; Postmenopausal state; Immunocompromised patient (HCC); Trochanteric bursitis of left hip; Therapeutic drug monitoring; Tuberculosis screening Social History [...] Progress Notes * Jessica Cortes MD - 09/09/2022 3:45 PM EST Subjective Subjective: Patient ID: Yuliet Trevino is a 51 y.o. female. No chief complaint on file. HPI The patient comes in for follow up regarding RA. Symptoms started in 2002. Seen by Machine Tender, Dr. Astorga. She was seen [facility] [...] mild pain- 3/10, mild swelling. Today's visit: Has been really congested, cough. Her is sick as well. She has not increased Simponi to 100 mg q month, she believes it is not covered by the insurance. Plaquenil makes her nauseous. Takes BID Joint pain: hands, knees Joint swelling: left knee, 2nd, 3rd MCP bilaterally Dry eyes - not too bad. Uses eye drops. Dry mouth - not too bad Type of pain: ache Morning stiffness: up to 30 minutes. Raynaud's: worsened in the cold weather. Current therapy: MTX 15 mg weekly, Arava 10 mg daily, Simponi 50 mg sq q month started around 02/10/22, Plaquenil 200 gm BID folic acid 1 mg daily, prednisone 5 [...] to Visit Medication Sig Dispense Refill ??? apixaban (ELIQUIS) 5 mg Oral Tablet Take 1 Tablet by mouth 2 times daily. 60 Tablet 2 ??? cyanocobalamin 1,000 mcg/mL Inj Solution INJECT 1ML INTO THE MUSCLE EVERY MONTH 1 mL 11 ??? diclofenac (VOLTAREN) 75 mg Oral Tablet, Delayed Release (E.C.) TAKE 1 TABLET BY MOUTH TWICE A DAY 60 Tablet 0 ??? folic acid (FOLVITE) 1 mg Oral Tablet TAKE 1 TABLET BY MOUTH EVERY DAY 30 Tablet 11 ??? golimumab (SIMPONI) 100 mg/mL SubQ Pen Injector Inject 1 pen under the skin every 30 days. 1 mL5 ??? hydrOXYchloroQUINE (PLAQUENIL) 200 mg Oral Tablet Take 1 Tablet by mouth 2 times daily. (Patient not taking: Reported on 07/23/2022) 60 Tablet 5 ??? leflunomide (ARAVA) 10 mg Oral Tablet TAKE 1 TABLET BY MOUTH EVERY DAY 30 Tablet 0 ??? methotrexate sodium 25 mg/mL Inj Solution Subcutaneous (Inject under the skin) 0.6 mL once a week. 4 mL 1 ??? predniSONE (DELTASONE) 5 mg Oral Tablet 3 tabs twice a day x 5 days, 2 tabs twice a day x 5 days, 3 tabs daily x 4 days, 2 tabs daily x 4 days, then 1 tab daily x 5 days. 75 Tablet 0 ??? PROAIR HFA 90 mcg/actuation [...] atraumatic. Musculoskeletal: Comments: Synovitis in the left wrist, 1st left MCP, 3rd left MCP. Otherwise no synovitis visible through the video. Neurological: Mental Status: She is alert. Psychiatric: Mood and Affect: Mood normal. Lab Results Component Value Date WBC 10.5 (H) 09/03/2022 HGB 13.0 09/03/2022 HCT 41.2 09/03/2022 MCV 86.9 09/03/2022 PLT 376 (H) 09/03/2022 Chemistry Component Value Date/Time NA 142 09/03/2022 1142 NA 138 11/23/2019 0000 K 3.6 09/03/2022 1142 K 4.6 11/23/2019 0000 CL 106 09/03/2022 1142 CL 102 11/23/2019 0000 CO2 27 09/03/2022 1142 CO2 27 11/23/2019 0000 BUN 8 09/03/2022 1142 BUN 11 11/23/2019 0000 CREATININE 0.74 09/03/2022 1142 CREATININE 0.7 11/23/2019 0000 GLU 88 09/03/2022 1142 GLU 103 (H) 07/01/2017 1532 Component Value Date/Time CALCIUM 9.0 09/03/2022 1142 CALCIUM 9.60 11/23/2019 0000 ALKPHOS 82 09/03/2022 1142 ALKPHOS 112 11/23/2019 0000 AST 15 09/03/2022 1142 AST 20 11/23/2019 0000 ALT 9 09/03/2022 1142 ALT 9 11/23/2019 0000 BILITOT 0.2 11/23/2019 0000 Lab Results Component Value Date CRP 45.17 (H) 09/03/2022 Lab Results Component Value Date SEDRATE 34 (H) 09/03/2022 XR KNEE LEFT AP LAT INT EXT [...] and Plan: Yuliet was seen today for follow-up, rheumatoid arthritis, osteoporosis, raynaud's syndrome, neck pain, knee pain and ankle pain. Diagnoses and all [...] centromere pattern > 8.0 with negative SSA/SSB, COMPUTER NUMERICAL CONTROL PROGRAMMER, Scl 70, dsDNA Records indicate she used [...] restarted 05/2022 Simponi 50 mg q month, has not increased to 100 mg, she believes the 100 mg dose was not approved. Will reach out to the pharmacy to check whether it was approved or not. Prednisone taper today Plaquenil 200 mg twice a day started 06/28/22, causes nausea, advised to lower to 200 mg daily. Hepatitis panel checked and negative. Patient should hold therapy while being treated for infections. Patient should not receive live vaccines while on therapy. - Golimumab (SIMPONI) 50 mg/0.5 mL SubQ Pen Injector; Subcutaneous (Inject under the skin) 1 mL every 30 days. - methotrexate sodium 25 mg/mL Inj Solution; Subcutaneous (Inject under the skin) 0.6 mL once a week. - predniSONE (DELTASONE) 10 mg Oral Tablet; Take 3 tablets daily x 5 days then 2 tablets daily x 5 days then 1 tablet daily x 5 days then stop. - hydrOXYchloroQUINE (PLAQUENIL) 200 mg Oral Tablet; Take 1 Tablet by mouth 2 times daily. Raynaud's phenomenon without gangrene Positive BRET [...] heat, ice, massage Diclofenac 75 mg BID Osteopenia of multiple sites Postmenopausal state Surgical menopause in 2000 Hx [...] right hip, FRAX high HF 3.5%, MOF 16%., lowest T score -2.4 at the right femoral neck Will discuss treatment at the next visit. Immunocompromised patient (HCC) Increased risk for infections due to immunosuppression Prevnar 13 given 12/13/16 Pneumovax 23 given 03/17/17 Trochanteric bursitis of the left hip Left bursa tenderness Advised to continue stretches and topical OTC creams Therapeutic drug monitoring Tuberculosis screening TB gold negative 01/23/22 Labs every 6-8 weeks while on MTX and Arava to monitor for toxicities. Recent labs 06/06/22 unremarkable except for elevated platelets and CRP. Acute deep vein thrombosis (DVT) of proximal vein of right lower extremity (HCC) Anticardiolipin antibody positive DVT 04/2022 Elevated d- dimer (+) anti cardiolipin Ab IgM at 72- high positive Suspect APLS Scheduled to see Hem/Onc Will need testing rechecked in 12 weeks and if anticardiolipin antibody stays (+) the diagnosis would be consistent with APLS Return in about 3 months (around 12/08/2022). documented in this encounter Plan of Treatment Upcoming Encounters Date Type Department Care Team (Late st Contact Info) Description 08/31/2024 8:30 AM EST Appointment [facility] [address] [place] [address] 10/25/2024 10:45 AM EST Office Visit [facility] [address] [place] [address] Jessica Cortes MD [address] [phone] 01/25/2025 9:00 AM EDT [address]ointment [address] [place] [address] 05/09/2025 11:00 AM EDT Appointment [address] [place] [address] 05/09/2025 11:15 AM EDT Appointment [address] [place] [address] Susana Garay MD [address] [place] [address] [address] [phone] documented as of this encounter Goals Goal [...] tuberculosis documented in this encounter Care Teams Slate Roofer Relationship Specialty Start Date End Date Julisa Kerr MD [address] [place] [address] PCP - General 02/22/11 Jessica Cortes MD 651 [facility] [address] [place] [address] Internal Medicine-Rheumatology 04/26/16 documented as of this encounter
--- OUTSIDE RECORDS SUMMARY | 2024-08-22 21:44 | XMS_ITS | Encounter Summary ---
Author Organization [place] [address] Care Team Providers Care Razor Sharpener Name Role Phone Julisa Kerr MD Primary Care Provider [phone] Jessica Cortes MD Unavailable [phone] Reason for Visit * Reason Comments Pharmacy Rheumatology Management Simponi Encounter Details Date Type Department Care Team (Latest Contact Info) Description 09/06/2022 Specialty Pharmacy [facility] [address] [phone] Rhina Rubi CPhT Pharmacy Rheumatology Management (Simponi) [...] documented in this encounter Progress Notes * hRina Rubi CPhT - 09/06/2022 9:09 AM EST Specialty Pharmacy Refill Coordination Note Yuliet Trevino is a 51 y.o. female contacted today regarding refills of her Simponi. Medication to be delivered by [facility] on 09/13. Spoke with patient. * Che Wells RPH - 09/06/2022 9:09 AM EST [facility] - Care Plan and Refill Review Refill questions and refill history verified. Last assessment 02/15/22. No reassessment needed at this time. Che Wells RPH Specialty Pharmacist documented in this encounter Plan of Treatment Upcoming Encounters Date Type Department Care Team (Late st Contact Info) Description 08/31/2024 8:30 AM EST Appointment [address] [address] [place] [address] 10/25/2024 10:45 AM EST Office Visit [facility] [address] [facility] [address] [place] [address] Jessica Cortes MD [address] [facility] Building [address] [place] [address] 01/25/2025 9:00 AM EDT Appointment [address] [place] [address] 05/09/2025 11:00 AM EDT Appointment [address] [place] [address] 05/09/2025 11:15 AM EDT [address]ment [address] [place] [address] Susana Garay MD [address] [place], [place] [phone] documented as of this encounter Goals Goal Patient Goal Type Associated Problems Recent Progress Patient-Stated? 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 RN documented as of this encounter Visit Diagnoses Not on filedocumented in this encounter Care Teams Razor Sharpener Relationship Specialty Start Date End Date Julisa Kerr MD [address] [place] [address] PCP - General 02/22/11 Jessica Cortes MD [address] [facility] Building [address] [place] [address] Internal Medicine-Rheumatology 04/26/16 documented as of this encounter
--- OUTSIDE RECORDS SUMMARY | 2024-08-22 21:44 | XMS_ITS | Encounter Summary ---
Author Organization [place] [address] Care Team Providers Care Certified Recreational Therapist Name Role Phone Julisa Kerr MD Primary Care Provider [phone] Jessica Cortes MD Unavailable [phone] Encounter Details Date Type Department Care Team (Latest Contact Info) Description 07/08/2022 3:11 PM EDT - 07/08/2022 11:59 PM EDT Hospital Encounter [facility] Cancer [address] [address] Acute deep vein thrombosis (DVT) of [...] EST Appointment [facility] Cancer [address] [address] [place] [address] 10/25/2024 10:45 AM EST Office Visit [facility] [address] [place] [address] Jessica Cortes MD [address] [place] [address] 01/25/2025 9:00 AM EDT Appointment [address] [address] [place] [address] 05/09/2025 11:00 AM EDT [address]ointment [address] [place] [address] 05/09/2025 11:15 AM EDT Appointment [address] [address] [place] [address] Susana Garay MD [address] [place] [address] [place] [address] documented as of this encounter Goals Goal Patient Goal Type Associated Problems Recent Progress Patient-Stated? 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 RN documented as of this encounter Procedures Procedure Name Priority Date/Time Associated Diagnosis Comments [id number] 1 ABS, IGG/IGM/IGA -REF LAB Routine 07/08/2022 4:25 PM EDT Acute deep vein thrombosis (DVT) of popliteal vein of right lower extremity (HCC) CARDIOLIPIN ANTIBODIES IGG/ IGM-REF LAB Routine 07/08/2022 4:25 PM EDT Acute deep vein thrombosis (DVT) of popliteal vein of right lower extremity (HCC) documented in this encounter Results * [id number] 1 ABS, IGG/IGM/IGA -REF LAB (07/08/2022 4:25 PM EDT) B2 GP 1 IgG <10 <=20 SGU 07/10/2022 11:24 PM EDT [employer] B2 GP 1 IgM 17 <=20 SMU 07/10/2022 11:24 PM EDT [employer] Comment: INTERPRETIVE INFORMATION: [id number] I, IgG and IgM Antibody The persistent [...] <10 <=20 MERLY 07/10/2022 11:24 PM EDT [facility] Comment: Performed By: [facility] [address] [place] [address] Mechanical Technologist: Thierno Cintron MD, PhD Blood VENOUS BLOOD / Unknown Venipuncture / Unknown 07/08/2022 4:25 PM EDT 07/08/2022 4:49 PM EDT us Susana Garay MD CHEMISTRY ORDERABLES Final Re sult [facility] [address] [place], [place] [id number] * (ABNORMAL) CARDIOLIPIN ANTIBODIES IGG/ IGM-REF LAB (07/08/2022 4:25 PM EDT) Cardiolipin IgG Antibody <10 <=14 GPL 07/10/2022 4:32 PM EDT [employer] Comment: INTERPRETIVE INFORMATION: Anti-Cardiolipin IgG Ab [...] 35(H) <=12 MPL 07/10/2022 4:32 PM EDT [employer] Comment: INTERPRETIVE INFORMATION: Anti-Cardiolipin IgM <=12 MPL: [...] other criteria phospholipid antibody tests. Performed By: [facility] [address] [place] [address] Mechanical Technologist: Thierno Cintron MD, PhD Blood VENOUS BLOOD / Unknown Venipuncture / Unknown 07/08/2022 4:25 PM EDT 07/08/2022 4:49 PM EDT us Susana Garay MD IMMUNOLOGY ORDERABLES Final R esult [employer] [employer] [address] [place] [address] documented in this encounter Visit Diagnoses Diagnosis Acute deep vein thrombosis (DVT) of popliteal vein of right lower extremity (HCC) documented in this encounter Care Teams Certified Recreational Therapist Relationship Specialty Start Date End Date Julisa Kerr MD [address] [place] [address] PCP - General 02/22/11 Jessica Cortes MD [address] [address] Internal Medicine-Rheumatology 04/26/16 documented as of this encounter
--- OUTSIDE RECORDS SUMMARY | 2024-08-22 21:44 | XMS_ITS | Encounter Summary ---
Author Organization [place] [address] Care Team Providers Care Teleservices Representative Name Role Phone Julisa Kerr MD Primary Care Provider [phone] Jessica Cortes MD Unavailable [phone] Reason for Visit * Reason Comments Pharmacy Rheumatology Management Encounter Details Date Type Department Care Team (Latest Contact Info) Description 08/08/2022 Specialty Pharmacy [facility] [address] [phone] Jacey Miller CPhT Pharmacy Rheumatology Management Social History Tobacco [...] Progress Notes * Jacey Miller CPhT - 08/08/2022 10:56 AM EST Specialty Pharmacy Refill Coordination Note Yuliet Trevino is a 51 y.o. female contacted today regarding refills of her Simponi. Medication to be delivered by [facility] on 08/14. Spoke with patient. Due for next injection 08/16. Pt not clinically followed, URAC questions not asked. documented in this encounter Plan of Treatment Upcoming Encounters Date Type Department Care Team (Late st Contact Info) Description 08/31/2024 8:30 AM EST Appointment [facility] [address] [place] [address] 10/25/2024 10:45 AM EST Office Visit [facility] [address] [place] [facility] [address] [place] [address] Jessica Cortes MD [address] [address] 01/25/2025 9:00 AM EDT Appointment [address] [address] [place] [address] 05/09/2025 11:00 AM EDT Appointment [address] [address] [place] [address] 05/09/2025 11:15 AM EDT Appointment [address] [address] [place] [address] Susana Garay MD [address] [place] [address] [place], [place] [phone] documented as of this encounter Goals Goal Patient Goal Type Associated Problems Recent Progress Patient-Stated? Author Maintain a healthy diet, exercise regularly and maintain an ideal body weight General Porsche Ashley RN documented as of this encounter Visit Diagnoses Not on filedocumented in this encounter Care Teams Teleservices Representative Relationship Specialty Start Date End Date Julisa Kerr MD [address] [place] [address] PCP - General 02/22/11 Jessica Cortes MD [address] [address] Internal Medicine-Rheumatology 04/26/16 documented as of this encounter
--- OUTSIDE RECORDS SUMMARY | 2024-08-22 21:44 | XMS_ITS | Encounter Summary ---
Author Organization [facility] [place] [address] Care Team Providers Care Electrical Instrumentation Technician Name Role Phone Julisa Kerr MD Primary Care Provider [phone] Jessica Cortes MD Unavailable [phone] Reason for Visit * Reason Onset Date Comments Results 07/15/2022 Encounter Details Date Type Department Care Team (Late st Contact Info) Description 07/15/2022 Telephone [facility] Care [place] [address] Susana Garay MD [address] [place] [address] Results Social History Tobacco Use Types Packs/Day [...] encounter Miscellaneous Notes * Telephone Encounter - Sukumar Eugene, Clerical Staff - 07/15/2022 9:26 AM EDT spoke with pt janelle pacheco scheduled for 10/15 * Telephone Encounter - aTmmie Bowling - 07/15/2022 8:48 AM EDT ----- Message from Susana Garay MD sent at 07/12/2022 5:01 PM EDT ----- Pls let pt know that she needs a repeat cardiolipin Abs in 3 months and to see me a week or so afterwards. Needs to stay on NOAC for now. documented in this encounter Plan of Treatment Upcoming Encounters Date Type Department Care Team (Late st Contact Info) Description 08/31/2024 8:30 AM EST Appointment [address] [address] [place] [address] 10/25/2024 10:45 AM EST Office Visit [facility] [address] [place] [address] Jessica Cortes MD [address] [place] [address] 01/25/2025 9:00 AM EDT Appointment [address] [address] [place] [address] 05/09/2025 11:00 AM EDT [address]ointment [address] [place] [address] 05/09/2025 11:15 AM EDT Appointment [address] [address] [place] [address] Susana Garay MD [address] [place] [address] [place] [address] documented as of this encounter Goals Goal Patient Goal Type Associated Problems Recent Progress Patient-Stated? 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 RN documented as of this encounter Results * (ABNORMAL) CARDIOLIPIN ANTIBODIES IGG/ IGM-REF LAB (10/15/2022 11:21 AM EST) Cardiolipin IgG Antibody 21(H) <=14 GPL 10/17/2022 1:50 AM EST [employer] Comment: INTERPRETIVE INFORMATION: Anti-Cardiolipin IgG Ab [...] 64(H) <=12 MPL 10/17/2022 1:50 AM EST [employer] Comment: INTERPRETIVE INFORMATION: Anti-Cardiolipin IgM <=12 [...] other criteria phospholipid antibody tests. Performed By: [facility] [address] [place] [id number] Investigator Narcotics: Thierno Cintron MD, PhD Blood VENOUS BLOOD / Unknown Venipuncture / Unknown 10/15/2022 11:21 AM EST 10/15/2022 11:21 AM EST us Susana Garay MD IMMUNOLOGY ORDERABLES Final R esult [facility] [address] [place] [address] documented in this encounter Visit Diagnoses Diagnosis Acute deep vein thrombosis (DVT) of popliteal vein of right lower extremity (HCC)- Primary documented in this encounter Care Teams Electrical Instrumentation Technician Relationship Specialty Start Date End Date Julisa Kerr MD [address] [place] [address] PCP - General 02/22/11 Jessica Cortes MD [address] [place] [address] Internal Medicine-Rheumatology 04/26/16 documented as of this encounter
--- OUTSIDE RECORDS SUMMARY | 2024-08-22 21:44 | XMS_ITS | Encounter Summary ---
Author Organization [place] [address] Care Team Providers Care Technical Marketing Consultant Name Role Phone Julisa Kerr MD Primary Care Provider [phone] Jessica Cortes MD Unavailable [phone] Reason for Visit * Reason Comments Joint Swelling Left ankle, left kne e Encounter Details Date Type Department Care Team (Late st Contact Info) Description 07/23/2022 2:30 PM EDT Office Visit [facility] [address] [place] [phone] Jhon Peña, MANAGER ACTUARIAL [address] [place] [address] Edema of left ankle (Primary Dx) Social History Tobacco Use [...] Sign Reading Time Taken Comments Blood Pressure 122/78 07/23/2022 1:52 PM EDT Pulse - - Temperature 36.8 ??C (98.2 ??F) 07/23/2022 1:52 PM ED T Respiratory Rate - - Oxygen Saturation - - Inhaled Oxygen Concentration - - Weight 59.9 kg (132 lb) 07/23/2022 1:52 PM EDT Height 157.5 cm (5' 2 ) 07/23/2022 1:52 PM EDT Body Mass Index 24.14 07/23/2022 1:52 PM EDT documented in this encounter Functional [...] End Date predniSONE (DELTASONE) 20 mg Oral TabletIndications: Edema of left ankle Take 2 Tablets by mouth daily for 5 days. 10 Tablet 07/23/2022 2 documented in this encounter Progress Notes * Jhon Peña, MANAGER ACTUARIAL - 07/23/2022 2:30 PM EDT Vitals: 07/23/22 1352 BP: 122/78 Temp: 98.2 ??F (36.8 ??C) TempSrc: Temporal Weight: 132 lb (59.9 kg) Height: 5' 2 (1.575 m) SUBJECTIVE: Chief Complaint Patient presents with ??? Joint Swelling Left ankle, left knee HPI: Joint Swelling The pain is present in the left shoulder, left ankle and left knee. This is a recurrent problem. The current episode started more than 1 month ago (3 months). There has been no history of extremity trauma. The problem occurs intermittently. The problem has been gradually worsening. The quality of the pain is described as dull and aching. The pain is at a severity of 8/10. The pain is moderate. Associated symptoms include joint swelling. Pertinent negatives include no numbness, stiffness or tingling. The symptoms are aggravated by standing and activity. Treatments tried: oral steroids The treat ment provided no relief. Her past medical history is significant for rheumatoid arthritis. Presents with left ankle/knee edema for the last 3 months intermittently. History of RA. Worsened with standing, ambulation. Review of Systems Musculoskeletal: Positive for joint swelling. Negative for stiffness. Neurological: Negative for tingling and numbness. OBJECTIVE: Physical Exam Constitutional: General: She is not in acute distress. Appearance: She is well-developed and well-nourished. She is not diaphoretic. HENT: Head: Normocephalic and atraumatic. Eyes: General: Right eye: No discharge. Left eye: No discharge. Neck: Vascular: No JVD. Cardiovascular: Rate and Rhythm: Normal rate and regular rhythm. Heart sounds: Normal heart sounds. No murmur heard. Pulmonary: Effort: Pulmonary effort is normal. No respiratory distress. Breath sounds: Normal breath sounds. No wheezing or rales. Musculoskeletal: Cervical back: Normal range of motion and neck supple. Left ankle: Swelling present. Tenderness present. Decreased range of motion. Skin: General: Skin is warm and dry. Findings: No rash. Neurological: Mental Status: She is alert and oriented to person, place, and time. Psychiatric: Mood and Affect: Mood and affect normal. Behavior: Behavior normal. Thought Content: Thought content normal. Judgment: Judgment normal. Assessment Diagnoses and all orders for this visit: Edema of left ankle Comments: -If not improved/worsens may need referral to ortho. Orders: - URIC ACID; Future - predniSONE (DELTASONE) 20 mg Oral Tablet; Take 2 Tablets by mouth daily for 5 days. Dispense: 10 Tablet; Refill: 0 documented in this encounter Plan of Treatment Upcoming Encounters Date Type Department Care Team (Late st Contact Info) Description 08/31/2024 8:30 AM EST Appointment [place] [address] [place] [address] 10/25/2024 10:45 AM EST Office Visit [facility] [address] [place] [address] Jessica Cortes MD [address] [facility] [facility] Building [address] [place] [address] 01/25/2025 9:00 AM EDT Appointment [place] [address] [place] [address] 05/09/2025 11:00 AM EDT [address]ment [address] [place] [address] 05/09/2025 11:15 AM EDT [address]ointment [address] [place] [address] Susana Garay MD [address] [place] [address] [place] [address] documented as of this encounter Goals Goal Patient Goal Type Associated Problems Recent Progress Patient-Stated? 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 RN documented as of this encounter Procedures Procedure Name Priority Date/Time Associated Diagnosis Comments URIC ACID Routine 07/23/2022 2:25 PM EDT Edema of left ankle documented in this encounter Results * URIC ACID (07/23/2022 2:25 PM EDT) Uric Acid 3.1 2.4 - 5.7 mg/dL 07/23/2022 8:11 PM EDT [facility] Blood VENOUS BLOOD / Unknown Venipuncture / Unknown 07/23/2022 2:25 PM EDT 07/23/2022 2:25 PM EDT us Jhon Peña MANAGER ACTUARIAL CHEMISTRY ORDERABLES Final R esult [facility] [address] [facility] , [address] [place] [id number] documented in this encounter Visit Diagnoses Diagnosis Edema of left ankle- Primary documented in this encounter Discontinued Medications Medication Sig Discontinue Reason Start Date End Da te predniSONE (DELTASONE) 10 mg Oral TabletIndications:Rheu matoid arthritis involving multiple sites with positive rheumatoid factor (HCC) Take 3 tablets daily x 5 days then 2 tablets daily x 5 days then 1 tablet daily x 5 days then stop. DELETE-Therapy completed 06/28/2022 07/23/2022 Amantadine 100 mg Oral Tablet DELETE-Therapy completed 05/09/2022 07/23/2022 documented as of this encounter Care Teams Technical Marketing Consultant Relationship Specialty Start Date End Date Julisa Kerr MD [address] [place] [address] PCP - General 02/22/11 Jessica Cortes MD [address] [place] [address] 19 [place] [address] Internal Medicine-Rheumatology 04/26/16 documented as of this encounter
--- OUTSIDE RECORDS SUMMARY | 2024-08-22 21:44 | XMS_ITS | Encounter Summary ---
Author Organization [place] [address] Care Team Providers Care Motorized Squad Sergeant Name Role Phone Julisa Kerr MD Primary Care Provider [phone] Jessica Cortes MD Unavailable [phone] Reason for Visit * Reason Comments Medication Refill Encounter Details Date Type Department Care Team (Late st Contact Info) Description 08/27/2022 Refill [facility] [address] [place] [address] Jessica Cortes MD [address] [place] [id number] Medication Refill Social History Tobacco Use Types [...] 08/27/2022 09/26/2022 leflunomide (ARAVA) 10 mg Oral TabletIndications: Rheumatoid arthritis involving multiple sites with positive rheumatoid factor (HCC) TAKE 1 TABLET BY MOUTH EVERY DAY 30 Tablet 08/27/2022 09/26/2022 documented in this encounter Miscellaneous Notes * Telephone Encounter - Mel Michaels RMA - 08/27/2022 8:42 AM EST Last OV 06/28/22 Last BW 07/23/22 Next OV 09/09/22 Chart reviewed. documented in this encounter Plan of Treatment Upcoming Encounters Date Type Department Care Team (Late st Contact Info) Description 08/31/2024 8:30 AM EST Appointment [facility] [address] [place] [address] 10/25/2024 10:45 AM EST Office Visit [facility] [address] [place] [address] Jessica Cortes MD [address] [facility] Building [address] [place] [address] 01/25/2025 9:00 AM EDT Appointment [place] [address] [place] [address] 05/09/2025 11:00 AM EDT Appointment [place] [address] [place] [address] 05/09/2025 11:15 AM EDT Appointment [address] [place] [address] Susana Garay MD [address] [place] [address] documented as of this encounter Goals Goal [...] 1 TABLET BY MOUTH TWICE A DAY 06/24/2022 08/27/2022 leflunomide (ARAVA) 10 mg Oral TabletIndications:Rheuma toid arthritis involving multiple sites with positive rheumatoid factor (HCC) TAKE 1 TABLET BY MOUTH EVERY DAY 06/28/2022 08/27/2022 documented as of this encounter Care Teams Motorized Squad Sergeant Relationship Specialty Start Date End Date Julisa Kerr MD [address] [place] [phone] PCP - General 02/22/11 Jessica Cortes MD [address] [place] [address] Internal Medicine-Rheumatology 04/26/16 documented as of this encounter
--- OUTSIDE RECORDS SUMMARY | 2024-08-22 21:45 | XMS_ITS | Encounter Summary ---
Author Organization [place] [address] Care Team Providers Care Change Management Name Role Phone Julisa Kerr MD Primary Care Provider [phone] Jessica Cortes MD Unavailable [phone] Reason for Referral * Consultation (Routine) - Closed Specialty Diagnoses / Procedures Referred By Contac t Referred To Contact Internal Medicine-Hematology and Oncology / Oncology Diagnoses Acute deep vein thrombosis (DVT) of popliteal vein of right lower extremity (HCC) Thierno Toth MD [address] [place] [address] Phone: tel: fax: Susana Garay MD [address] [place] [address] Phone: tel: fax: Referral ID Status Reason Start Date Expiration Date Visits Re quested Visits Authorized [id number] Closed 06/11/2022 06/11/2023 99 99 Encounter Details Date Type Department Care Team (Late st Contact Info) Description 06/11/2022 Orders Only [facility] [address] [place] [phone] Jayla Haile RMA Acute deep vein thrombosis (DVT) of popliteal vein of right lower extremity (HCC) (Primary Dx) Social History Tobacco Use Types [...] suspected to have Coronavirus/COVID-19? No / Unsure 06/06/2022 1:15 PM EDT documented as of this encounter [...] Info) Description 08/31/2024 8:30 AM EST Appointment [facility] [address] [place] [address] 10/25/2024 10:45 AM EST Office Visit [facility] [address] [facility] [address] [place] [address] Jessica Cortes MD [address] [facility] Building [address] [place] [address] 01/25/2025 9:00 AM EDT Appointment [address] [place] [address] 05/09/2025 11:00 AM EDT Appointment [address] [place] [address] 05/09/2025 11:15 AM EDT Appointment [address] [place] [address] Susana Garay MD [address] [place] [address] Scheduled Referrals Name Type Priority Associated Diagnoses Order Schedule AMB REFERRAL TO HEMATOLOGY ONCOLOGY Outpatient Referral Routine Acute deep vein thrombosis (DVT) of popliteal vein of right lower extremity (HCC) Ordered: 06/11/2022 documented as of this encounter Goals Goal Patient Goal Type Associated Problems Recent Progress Patient-Stated? Author Maintain a healthy diet, exercise regularly and maintain an ideal body weight General Porsche Ashley, RN documented as of this encounter Visit Diagnoses Diagnosis Acute deep vein thrombosis (DVT) of popliteal vein of right lower extremity (HCC)- Primary documented in this encounter Care Teams Change Management Relationship Specialty Start Date End Date Julisa Kerr MD 100 [place] [address] PCP - General 02/22/11 Jessica Cortes MD [address] [facility] [facility] Building [address] [place] [address] Internal Medicine-Rheumatology 04/26/16 documented as of this encounter
--- OUTSIDE RECORDS SUMMARY | 2024-08-22 21:45 | XMS_ITS | Encounter Summary ---
Author Organization [facility] [place] [address] Care Team Providers Care Parliamentary Counsel Name Role Phone Julisa Kerr MD Primary Care Provider [phone] Jessica Cortes MD Unavailable [phone] Encounter Details Date Type Department Care Team (Latest Contact Info) Description 06/06/2022 Travel Social History Tobacco Use Types Packs/Day [...] 02/12/2022 2:17 PM EDT Albni Levy MA documented as of this encounter [...] Description 08/31/2024 8:30 AM EST Appointment [address] [place] [address] 10/25/2024 10:45 AM EST Office Visit [facility] [address] [facility] [address] [place] [address] Jessica Cortes MD [address] [place] [address] Building [address] [place] [address] 01/25/2025 9:00 AM EDT Appointment [address] [place] [address] 05/09/2025 11:00 AM EDT Appointment [address] [place] [address] 05/09/2025 11:15 AM EDT Appointment [address] [place] [address] Susana Garay MD [address] [place] [address] [place] [address] documented as of this encounter Goals Goal Patient Goal Type Associated Problems Recent Progress Patient-Stated? Author Maintain a healthy diet, exercise regularly and maintain an ideal body weight General Porsche Ashley, RN documented as of this encounter Visit Diagnoses Not on filedocumented in this encounter Care Teams Parliamentary Counsel Relationship Specialty Start Date End Date Julisa Kerr MD 100 [place] [address] PCP - General 02/22/11 Jessica Cortes MD [address] [place] [phone] Internal Medicine-Rheumatology 04/26/16 documented as of this encounter
--- OUTSIDE RECORDS SUMMARY | 2024-08-22 21:45 | XMS_ITS | Encounter Summary ---
Author [place] [address] Care Team Providers Care Notching Machine Operator Name Role Phone Julisa Kerr MD Primary Care Provider [phone] Jessica Cortes MD Unavailable [phone] Encounter Details Date Type Department Care Team (Late st Contact Info) Description 05/31/2022 Orders Only [facility] [address] [place] [address] Julisa Kerr MD [address] [place] [address] Herpes labialis Social History Tobacco Use Types Packs/Day Years [...] Refills Last Filled Start Date End Date valACYclovir (VALTREX) 1 gram Oral TabletIndications: Herpes labialis Take 2 Tablets by mouth 2 times daily for 2 days. Per flare of cold sore 8 Tablet 6 05/31/2022 2 documented in this encounter Plan of Treatment Upcoming Encounters Date Type Department Care Team (Late st Contact Info) Description 08/31/2024 8:30 AM EST [address]ment [address] [address] 10/25/2024 10:45 AM EST Office Visit [facility] [address] [facility] [address] [place] [address] Jessica Cortes MD [address] [facility] [facility] Building [address] [place] [address] 01/25/2025 9:00 AM EDT Appointment [place] [address] [place] [address] 05/09/2025 11:00 AM EDT Appointment [place] [place] [address] 05/09/2025 11:15 AM EDT Appointment [facility] [place] [address] [address] Susana Garay MD [address] [facility] [address] [place] [id number] documented as of this encounter Goals Goal Patient Goal Type Associated Problems Recent Progress Patient-Stated? 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, RN documented as of this encounter Visit Diagnoses Diagnosis Herpes labialis Herpes simplex without mention of complication documented in this encounter Discontinued Medications Medication Sig Discontinue Reason Start Date End Da te valACYclovir (VALTREX) 1 gram Oral TabletIndications:Herpes labialis Take 2 Tablets by mouth 2 times daily for 2 days. Per flare of cold sore Reorder 05/31/2022 05/31/2022 documented as of this encounter Care Teams Notching Machine Operator Relationship Specialty Start Date End Date Julisa Kerr MD [address] [place] [address] PCP - General 02/22/11 Jessica Cortes MD [address] [address] Internal Medicine-Rheumatology 04/26/16 documented as of this encounter
--- OUTSIDE RECORDS SUMMARY | 2024-08-22 21:45 | XMS_ITS | Encounter Summary ---
Author Organization [place] [address] Care Team Providers Care Slipcover Cutter Name Role Phone Julisa Kerr MD Primary Care Provider [phone] Jessica Cortes MD Unavailable [phone] Reason for Visit * Reason Onset Date Comments New Patient 06/11/2022 New Patient; Ref erred by Thierno Toth; Dx:Acute deep vein thrombosis (DVT) of popliteal vein of right lower extremity (HCC) Encounter Details Date Type Department Care Team (Late st Contact Info) Description 06/11/2022 Telephone [facility] [place] [address] Susana Garay MD [address] [place] [address] New Patient (New Patient; Referred by Thierno Toth; Dx:Acute deep vein thrombosis (DVT) of popliteal vein of right lower extremity (HCC)) Social History Tobacco Use Types Packs/Day Years [...] Miscellaneous Notes * Telephone Encounter - Margret Bone, Clerical Staff - 06/11/2022 2:49 PM EDT New Patient; Referred by Thierno Toth; Dx:Acute deep vein thrombosis (DVT) of popliteal vein of right lower extremity (HCC) Is this a STAT referral:no Preferred call back number:[phone] Has the patient had a recent admission to the hospital: no Is an reeling operator needed (if yes, arrange a live reeling operator for initial consult visit by calling reeling operator services): no What location does the patient wish to be seen (FTT, [facility], [facility], GRT): G[facility] Appointment date/time/location: 07/08/22; 3:15p;GRT Records Has the patient been seen by any physician for this diagnosis (Y/N)? no Past records will be obtained from the following physicians:no Consult/Last Office Note received (Y/N) yes Imaging results received (Y/N): no Lab results received (Y/N): yes Pathology results received (Y/N): no Did you have a BX taken of your cancer (if yes, date and location) (Y/N):no Are there previous ONC encounters(Y/N): no Does the appointment meet the defined scheduling timeframe guidelines? If NO, Why?:no (first available consult time at [facility] w/Jarrod) documented in this encounter Plan of Treatment Upcoming Encounters Date Type Department Care Team (Late st Contact Info) Description 08/31/2024 8:30 AM EST Appointment [address] [place] [address] 10/25/2024 10:45 AM EST Office Visit [facility] [address] [facility] [address] [place] [address] Jessica Cortes MD [address] [place] [address] Building 19 [place] [address] 01/25/2025 9:00 AM EDT Appointment [address] [place] [address] 05/09/2025 11:00 AM EDT Appointment [address] [place] [address] 05/09/2025 11:15 AM EDT Appointment [address] [place] [address] Susana Garay MD [address] [place] [address] [address] [place] [id number] documented as of this encounter Goals Goal Patient Goal Type Associated Problems Recent Progress Patient-Stated? Author Maintain a healthy diet, exercise regularly and maintain an ideal body weight General Porsche Ashley, RN documented as of this encounter Visit Diagnoses Not on filedocumented in this encounter Care Teams Slipcover Cutter Relationship Specialty Start Date End Date Julisa Kerr MD 100 [place] [address] PCP - General 02/22/11 Jessica Cortes MD 651 [facility] 19 [place] [address] Internal Medicine-Rheumatology 04/26/16 documented as of this encounter
--- OUTSIDE RECORDS SUMMARY | 2024-08-22 21:45 | XMS_ITS | Encounter Summary ---
Author Organization [facility] [place] [address] Care Team Providers Care Spray Booth Operator Name Role Phone Julisa Kerr MD Primary Care Provider [phone] Jessica Cortes MD Unavailable [phone] Reason for Visit * Reason Comments Follow-up [facility] Rheumatoid Arthritis Osteoporosis Raynaud's Syndrome Neck Pain Knee Pain Left Ankle Pain Left x 1 month Encounter Details Date Type Department Care Team (Latest Contact Info) Description 06/28/2022 3:45 PM EDT Office Visit SEP Rheumatology [facility] [address] [facility] [address] [place] [address] Jessica Cortes MD [address] [id number] Rheumatoid arthritis involving multiple sites with positive rheumatoid factor (HCC) (Primary Dx); Raynaud's phenomenon without gangrene; Positive BRET (antinuclear antibody); Sicca syndrome (HCC); Neck pain; Age-related osteoporosis without current pathological fracture; Postmenopausal state; Immunocompromised patient (HCC); Trochanteric bursitis of left hip; Therapeutic drug monitoring; Tuberculosis screening; Acute deep vein thrombosis (DVT) of proximal vein of right lower extremity (HCC); Anticardiolipin antibody positive Social History Tobacco Use Types Packs/Day Years [...] Sign Reading Time Taken Comments Blood Pressure 129/81 06/28/2022 3:32 PM EDT Pulse 79 06/28/2022 3:32 PM EDT Temperature - - Respiratory Rate 16 06/28/2022 3:32 PM EDT Oxygen Saturation - - Inhaled Oxygen Concentration - - Weight 58.3 kg (128 lb 9.6 oz) 06/28/2022 3:32 P M EDT Height 157.5 cm (5' 2 ) 06/28/2022 3:32 PM EDT Body Mass Index 23.52 06/28/2022 3:32 PM EDT documented in this [...] Refills Last Filled Start Date End Date hydrOXYchloroQUIN E (PLAQUENIL) 200 mg Oral TabletIndications :Rheumatoid arthritis involving multiple sites with positive rheumatoid factor (HCC) Take 1 Tablet by mouth 2 times daily. 60 Tablet 5 06/28/2022 3 predniSONE (DELTASONE) 10 mg Oral TabletIndications :Rheumatoid arthritis involving multiple sites with positive rheumatoid factor (HCC) Take 3 tablets daily x 5 days then 2 tablets daily x 5 days then 1 tablet daily x 5 days then stop. 30 Tablet 06/28/2022 2 methotrexate sodium 25 mg/mL Inj SolutionIndicatio ns:Rheumatoid arthritis involving multiple sites with positive rheumatoid factor (HCC) Subcutaneous (Inject under the skin) 0.6 mL once a week. 4 mL 1 06/28/2022 3 golimumab (SIMPONI) 100 mg/mL SubQ Pen InjectorIndicatio ns:Rheumatoid arthritis involving multiple sites with positive rheumatoid factor (HCC) Inject 1 pen under the skin every 30 days. 1 mL 5 11/27/2022 1:35 PM EST 06/28/2022 3 documented in this encounter Progress Notes * Jessica Cortes MD - 06/28/2022 3:45 PM EDT Subjective Subjective: Patient ID: Yuliet Trevino is a 51 y.o. female. Chief Complaint Patient presents with ??? Follow-up [facility] ??? Rheumatoid Arthritis ??? Osteoporosis ??? Raynaud's Syndrome ??? Neck Pain ??? Knee Pain Left ??? Ankle Pain Left x 1 month HPI The patient comes in for follow up regarding RA. Symptoms started in 2002. Seen by [facility], Dr. Astorga. She was seen in [facility] but have not seen her in [...] mild pain- 3/10, mild swelling. Today's visit: Seen at the urgent care in 05/15/22, x ray of the ankle unremarkable except for soft tissue swelling. GIven cortisol injection to the right knee which helped. Given ankle wrap ankle. D - dimer was high so she was referred to ED. Se[place]. Started Eliquis. Labs revealed highly (+) anticardiolipin IgM. Referred to Hem/Onc. The patient emailed and reported she been having a lot of pain in the left side starting in hip, radiating down to knee and foot. The pain is also in the left knee and left ankle, both swell. Hard towalk and sleep. Pain and swelling worsen towards the end of the day. Joint pain: left knee, ankle. Hands swell a little bit they do not hurt as bad. Simponi injections are wearing off in the 4th week. Fingers swell at that point. Dry eyes - not too bad. Uses eye drops. Dry mouth - not too bad Pain on a scale 0-10: 7/10 Type of pain: ache Morning stiffness: up [...] to Visit Medication Sig Dispense Refill ??? cyanocobalamin 1,000 mcg/mL Inj Solution INJECT 1ML INTO THE MUSCLE EVERY MONTH 1 mL 11 ??? diclofenac (VOLTAREN) 75 mg Oral Tablet, Delayed Release (E.C.) TAKE 1 TABLET BY MOUTH TWICE A DAY 60 Tablet 1 ??? ELIQUIS 5 mg Oral Tablet TAKE 2 TABLETS BY MOUTH TWICE DAILY FOR 7 DAYS THEN TAKE 1 TABLET BY MOUTH TWICE DAILY FOR 30 DAYS ??? folic acid (FOLVITE) 1 mg Oral Tablet TAKE 1 TABLET BY MOUTH EVERY DAY 30 Tablet 11 ??? PROAIR HFA 90 mcg/actuation Inhl HFA Aerosol Inhaler INHALE 2 PUFFS BY MOUTH EVERY 6 HOURS NEEDED FOR WHEEZE 8.5 Each 3 ??? Amantadine 100 mg Oral Tablet ??? leflunomide (ARAVA) 10 mg Oral Tablet TAKE 1 TABLET BY MOUTH EVERY DAY 30 Tablet 1 ??? methylPREDNISolone (MEDROL DOSPACK) 4 mg Oral Tablets, Dose Pack See package instructions 21 Tablet 0 No current facility-administered medications on file prior to visit. Review of Systems Constitutional: Positive for fatigue. Weight gain HENT: Positive for congestion and mouth sores. Dry mouth Gastrointestinal: Positive for abdominal pain. GERD Genitourinary: Positive for difficulty urinating. Musculoskeletal: Positive for arthralgias, back pain, joint swelling, myalgias and neck pain. Skin: Positive for rash. Neurological: Positive for headaches. Hematological: Bruises/bleeds easily. Psychiatric/Behavioral: Positive for sleep disturbance. The patient is nervous/anxious. Depression All other systems reviewed and are negative. Objective Objective: Vitals: 06/28/22 1532 BP: 129/81 Pulse: 79 Resp: 16 Weight: 128 lb 9.6 oz (58.3 kg) Height: 5' 2 (1.575 m) Body mass index is 23.52 kg/m??. Physical Exam Vitals reviewed. Constitutional: Appearance: She is well-developed. HENT: Head: Normocephalic and atraumatic. Musculoskeletal: Comments: Tenderness to 2nd, 3rd, 5th right MCP, 1st left MCP, 4th right PIP, MTP joints, left trochanteric bursa. Synovitis in the wrists, minimal in the 2nd, 3rd, 4th, 5th right MCP, 4th, 5th rightPIP, 1st, 5th left MCP, 5th left PIP, left knee and left ankle effusion. Warmth to the left knee and left ankle. ROM of the knees intact. ROM of the left knee and left ankle painful. ROM of the wrists decreased, L>R. Skin: General: Skin is warm. Findings: No rash. Neurological: Mental Status: She is alert. Comments: Psychiatric: Mood and Affect: Mood normal. Rapid 3: 22.5 Lab Results Component Value Date WBC 7.8 06/06/2022 HGB 13.2 06/06/2022 HCT 43.2 06/06/2022 MCV 88.5 06/06/2022 PLT 386 (H) 06/06/2022 Chemistry Component Value Date/Time NA 137 06/06/2022 1320 NA 138 11/23/2019 0000 K 3.7 06/06/2022 1320 K 4.6 11/23/2019 0000 CL 101 06/06/2022 1320 CL 102 11/23/2019 0000 CO2 23 06/06/2022 1320 CO2 27 11/23/2019 0000 BUN 11 06/06/2022 1320 BUN 11 11/23/2019 0000 CREATININE 0.70 06/06/2022 1320 CREATININE 0.7 11/23/2019 0000 GLU 91 06/06/2022 1320 GLU 103 (H) 07/01/2017 1532 Component Value Date/Time CALCIUM 9.1 06/06/2022 1320 CALCIUM 9.60 11/23/2019 0000 ALKPHOS 124 (H) 06/06/2022 1320 ALKPHOS 112 11/23/2019 0000 AST 19 06/06/2022 1320 AST 20 11/23/2019 0000 ALT 18 06/06/2022 1320 ALT 9 11/23/2019 0000 BILITOT 0.2 11/23/2019 0000 Lab Results Component Value Date CRP 54.22 (H) 06/06/2022 Lab Results Component Value Date SEDRATE 27 06/06/2022 No visits with results within 1 Week(s) from this visit. Latest known visit with results is: Hospital Outpatient Visit on 06/06/2022 Component Date Value Ref Range Status ??? WBC 06/06/2022 7.8 3.7 - 10.3 x10(3)/mcL Final ??? RBC 06/06/2022 4.88 3.90 - 5.20 x10(6)/mcL Final ??? Hgb 06/06/2022 13.2 11.2 - 15.7 g/dL Final ??? Hct 06/06/2022 43.2 34.0 - 45.0 % Final ??? MCV 06/06/2022 88.5 80.0 - 100.0 fL Final ??? MCH 06/06/2022 27.0 26.0 - 34.0 pg Final ??? MCHC 06/06/2022 30.6 (A) 30.7 - 35.5 g/dL Final ? ? RDW 06/06/2022 14.3 <=14.9 % Final ??? Platelet 06/06/2022 386 (A) 155 - 369 x10(3)/mcL Final ??? MPV 06/06/2022 11.2 8.8 - 12.5 fL Final ??? Neut Percent 06/06/2022 52.6 % Final Neutrophils equals segs plus bands ??? Imm Gran% 06/06/2022 0.9 % Final Automated count of metamyelocytes, myelocytes and promyelocytes. ??? Lymph Percent 06/06/2022 26.0 % Final ??? [place] Percent 06/06/2022 14.6 % Final ??? Eos Percent 06/06/2022 4.9 % Final ??? Baso Percent 06/06/2022 1.0 % Final ??? Neut # 06/06/2022 4.1 1.6 - 6.1 x10(3)/mcL Final Neutrophils equals segs plus bands ??? IMMGRAN# 06/06/2022 0.1 0.0 - 0.1 x10(3)/mcL Final Automated count of metamyelocytes, myelocytes and promyelocytes. An absolute IG <0.1 is reportedas 0.0. ??? Lymph # 06/06/2022 2.0 1.2 - 3.9 x10(3)/mcL Final ??? [place] # 06/06/2022 1.1 (A) 0.3 - 0.9 x10(3)/mcL Final ??? Eos# 06/06/2022 0.4 0.0 - 0.5 x10(3)/mcL Final ??? Baso # 06/06/2022 0.1 0.0 - 0.1 x10(3)/mcL Final ??? Sodium 06/06/2022 137 136 - 145 mmol/L Final ??? Potassium 06/06/2022 3.7 3.5 - 5.0 mmol/L Final ??? Chloride 06/06/2022 101 98 - 107 mmol/L Final ??? Total CO2 06/06/2022 23 22 - 29 mmol/L Final ??? Anion Gap 06/06/2022 13 7 - 16 mmol/L Final ??? Calcium 06/06/2022 9.1 8.6 - 10.4 mg/dL Final ??? Glucose Lvl 06/06/2022 91 74 - 100 mg/dL Final ??? BUN 06/06/2022 11 6 - 20 mg/dL Final ??? Creatinine 06/06/2022 0.70 0.51 - 1.30 mg/dL Final ??? Albumin 06/06/2022 4.3 3.5 - 5.2 gm/dL Final ??? Total Protein 06/06/2022 7.3 6.4 - 8.3 gm/dL Final ??? Bili Total 06/06/2022 0.3 0.1 - 1.3 mg/dL Final ? ? ALT 06/06/2022 18 <=41 U/L Final ? ? AST 06/06/2022 19 <=40 U/L Final ??? Alk Phos 06/06/2022 124 (A) 36 - 123 U/L Final ? ? eGFR (CKD-EPIcr 2020) 06/06/2022 104 >=60 mL/min/1.73 m2 Final Estimated GFR was calculated using the CKD-EPIcr (2020) equation refit without race. The equation is recommended by the National Kid[employer] - [place] Society of Nephrology Task Force. ? ? CRP 06/06/2022 54.22 (A) <=5.00 mg/L Final ??? Sed Rate 06/06/2022 27 0 - 30 mm/hr Final ??? FACV Specimen 06/06/2022 Whole Blood Final ??? Factor V Leiden (F5) R506Q Mut 06/06/2022 Negative Final Comment: Indication for testing: Assess genetic risk for thrombosis. NEGATIVE: The factor V Leiden variant, c.1601G>A; p.[id number], was not detected. This does not exclude a genetic cause for thrombophilia. If this individual has had a previous venous thromboembolism, this negative result is unlikely to significantly reduce the risk for recurrence; thus, future clinical management to reduce recurrence should not be altered. This result has been reviewed and approved by Yumiko Marin M.D., Ph.D. BACKGROUND INFORMATION: Factor V Leiden (F5) R506Q Mutation CHARACTERISTICS: Venous thromboembolism (VTE) is multifactorial caused by a combination of genetic and environmental factors. The Factor V Leiden (FVL) variant is the most common cause of inherited VTEs, accounting for over 90 percent of activated protein C (APC) resistance. Because the FVL variant eliminates the APC cleavage site, factor V is inactivated slower, thus persisting longer in blood circulation, leading to more thrombin production. Other genetic risk factors for VTE include, male sex and variants in antithrombin, protein C, protein S, or factor XIII. Non-genetic risk factors include, age, smoking, prolonged immobilization, malignant neoplasms, surgery, , oral contraceptives, estrogen replacement therapy, tamoxifen and raloxifene therapy. INCIDENCE OF FACTOR V LEIDEN VARIANT: Approximately 5 percent of Caucasians, 2 percent of Hispanics, 1 percent of Americans and 0.5 percent of Asians are heterozygous; homozygosity occurs in 1 in 1500 Caucasians. INHERITANCE: Semi-dominant; both heterozygotes and homozygotes are at increased risk for VTE. PENETRANCE: Lifetime risk of VTE is 10 percent for heterozygotes and 80 percent of homozygotes. CAUSE: The pathogenic gain of function in the F5 gene variant c.1601G>A (p.[id number]). Legacy nomenclature: R506Q (1691G>A) CLINICAL SENSITIVITY: 20-50 percent of individuals with an isolated VTE have the FVL variant. METHODOLOGY: Polymerase chain reaction and fluorescence monitoring. ANALYTICAL SENSITIVITY AND SPECIFICITY: 99 percent. LIMITATIONS: Diagnostic errors can occur due to rare sequence variations. F5 gene mutations, other than p.[id number], will not be detected. This test was developed and its performance characteristics determined by [facility]. It has not been cleared or approved by the [place] Food and Drug Administration. This test was performed in a CLIA certified laboratory and is intended for clinical purposes. Counseling and informed consent are recommended for genetic testing. Consent forms are available online. Performed by [facility], [address] [place] [id number] [email or web address], Thierno Cintron MD, PHD, Lab. Director ??? PT PCR Specimen 06/06/2022 Whole Blood Final ??? Prothrombin (F2) [id number] Mutat 06/06/2022 Negative Final Comment: Indication for testing: Assess genetic risk for thrombosis. NEGATIVE: The Factor II, prothrombin [id number] mutation, was not detected. Other causes of elevated prothrombin levels and hereditary forms of venous thrombosis have not been excluded. Recommendations: If clinically indicated, testing for other inherited or acquired thrombophilic disorders is recommended including DNA testing for the factor V Leiden mutation, measurement of total plasma homocysteine concentration, serological assays for anticardiolipin antibodies, multiple phospholipid-dependent coagulation assays for lupus inhibitor, protein C activity, protein S activity or free protein S antigen, and antithrombin activity. This result has been reviewed and approved by Yumiko Marin M.D., Ph.D. BACKGROUND INFORMATION: Prothrombin (F2) c.*97G>A (I50177J) Pathogenic Variant CHARACTERISTICS: The Factor II, c.*97G>A (U79817E) pathogenic variant is a common genetic risk factor for venous thrombosis associated with elevated prothrombin levels leading to increased rates of thrombin generation and excessive growth of fibrin clots. The expression of Factor II thrombophilia is impacted by coexisting genetic thrombophilic disorders, acquired thrombophilic disorders (eg, malignancy, hyperhomocysteinemia, high factor VIII levels), and circumstances including: , oral contraceptive use, hormone replacement therapy, selective estrogen receptor modulators, travel, central venous catheters, surgery, and organ transplantation. INCIDENCE: Approximately 2 percent of Caucasians and 0.3 percent of Americans are heterozygous; homozygosity occurs in 1 in 10,000 individuals. INHERITANCE: Incomplete autosomal dominant. PENETRANCE: The risk of thrombosis is increased 2-4 fold for heterozygotes and further increased for homozygotes. CAUSE: Homozygosity or heterozygosity for F2 c.*97G>A (A73382W). PATHOGENIC VARIANT TESTED: F2 c.*97G>A (S83078U). CLINICAL SENSITIVITY FOR VENOUS THROMBOSIS: Approximately 10 percent. METHODOLOGY: Polymerase chain reaction and fluorescence monitoring. ANALYTICAL SENSITIVITY AND SPECIFICITY: 99 percent. LIMITATIONS: Diagnostic errors can occur due to rare sequence variations. F2 gene variants, other than c.*97G>A (P34257O), will not be detected. This test was developed and its performance characteristics determined by [facility]. It has not been cleared or approved by the US Food and Drug Administration. This test was performed in a CLIA certified laboratory and is intended for clinical purposes. Counseling and informed consent are recommended for genetic testing. Consent forms are available online. Performed by [facility], [address] [place] [id number] [email or web address], Thierno Cintron MD, PHD, Lab. Director ??? Protein C Funct 06/06/2022 148 83 - 168 % Final INTERPRETIVE INFORMATION: Protein C, Functional Patients on warfarin may have decreased protein C values. Patients should be off warfarin therapy for two weeks for accurate measurement of protein C levels. Artificially increased functional protein C values may be due to heparin therapy or the presence of direct thrombin inhibitors or factor Xa inhibitors. Access complete set of age- and/or gender-specific reference intervals for this test in the [facility] ([facility]). ??? Protein S Funct 06/06/2022 110 57 - 131 % Final INTERPRETIVE INFORMATION: Protein S, Functional Patients on warfarin may have decreased functional protein S values. Patients should be off warfarin therapy for two weeks for accurate measurement of functional protein S. Artificially increased functional protein S values may be due to heparin therapy or the presence of direct thrombin inhibitors or factor Xa inhibitors. Access complete set of age- and/or gender-specific reference intervals for this test in the [facility] ([facility]). Performed by [facility], [address] [facility] [place] [address] [email or web address], Thierno Cintron MD, PHD, Lab. Director ??? Protein S Free, Antigen 06/06/2022 151 (A) 55 - 123 % Final INTERPRETIVE INFORMATION: Protein S Ag, FREE Patients on warfarin may have decreased free protein S values. Patients should be off warfarin therapy for two weeks for accurate measurement of free protein S levels. Decreased levels of free protein S are also associated with DIC, liver disease, , and inflammatory syndromes. Access complete set of age- and/or gender-specific reference intervals for this test in the [facility] ([facility]). Performed by [facility], [address] [facility] [place] [address] [email or web address], Thierno Cintron MD, PHD, Lab. Director ??? PT D 06/06/2022 14.5 12.0 - 15.5 sec Final ??? PTT D 06/06/2022 50 (A) 32 - 48 sec Final ??? TT 06/06/2022 17.0 14.7 - 19.5 sec Final ? ? Reptilase Pat 06/06/2022 Not Applicable <=21.9 sec Final ??? PTT Hep Neut 06/06/2022 Not Applicable 32 - 48 sec Final ??? PTT Christophe Rflx 06/06/2022 44 32 - 48 sec Final ??? Plt Neut 06/06/2022 Not Applicable Negative Final ??? DRVVT 06/06/2022 46 (A) 33 - 44 sec Final ??? DRV Christophe 06/06/2022 42 33 - 44 sec Final ??? DRVVT Confirm 06/06/2022 Not Applicable Negative ratio Final ??? Hexag Phos Rflx 06/06/2022 Not Applicable Negative Final ??? Lupus Interp 06/06/2022 See Note Final Lupus anticoagulant not detected. The PTT and DRVVT are prolonged and correct in 1:1 mixes with pooled normal plasma. This pattern can be seen with factor deficiency. However, correction in a 1:1 mix can also occur with weak inhibitors that are diluted in the mixing study. Lupus anticoagulant antibodies are heterogeneous and antibody titers fluctuate over time. Laboratory tests used to identify lupus anticoagulants demonstrate variable sensitivity. If there is strong clinical suspicion for antiphospholipid antibody syndrome (APS), consider testing for cardiolipin and beta-2 glycoprotein 1 antibodies (IgG and IgM) if this testing has not already been performed. Performed by [facility], [address] [place] [id number] [email or web address], Thierno Cintron MD, PHD, Lab. Director ? ? Cardiolipin IgG Antibody 06/06/2022 18 (A) <=14 GPL Final Comment: INTERPRETIVE INFORMATION: Anti-Cardiolipin IgG Ab <=14 [...] manifestations and/or other criteria phospholipid antibody tests. ? ? Cardiolipin IgM Antibody 06/06/2022 72 (A) <=12 MPL Final Comment: INTERPRETIVE INFORMATION: Anti-Cardiolipin IgM <=12 MPL: [...] other criteria phospholipid antibody tests. Performed By: [facility] [address] [place], [place] [id number] Poundmaster: Thierno Cintron MD, PhD ? ? B2 GP 1 IgG 06/06/2022 <10 <=20 SGU Final ? ? B2 GP 1 IgM 06/06/2022 14 <=20 SMU Final Comment: INTERPRETIVE INFORMATION: [id number] I, IgG and IgM Antibody The persistent [...] manifestations and/or other criteria phospholipid antibody tests. ? ? B2 GP 1 IgA 06/06/2022 <10 <=20 MERLY Final Performed By: [facility] [place] [id number] Poundmaster: Thierno Cintron MD, PhD ??? Antithrombin Enzymatic ([facility]ivi 06/06/2022 122 76 - 128 % Final REFERENCE INTERVAL: Antithrombin, Enzymatic (Activity) Access complete set of age- and/or gender-specific reference intervals for this test in the [facility] ([facility]). Performed by [facility], [address] [place] [address] [email or web address], Thierno Cintron MD, PHD, Lab. Director ??? BILL_TTR-ARUP 06/06/2022 Billed Final Performed By: [facility] [address] [place] [address] Poundmaster: Thierno Cintron MD, PhD ??? BILL_PTTD-ARUP 06/06/2022 Billed Final Performed By: [facility] [address] [place] [address] Poundmaster: Thierno Cintron MD, PhD ??? BILL_DRV-ARUP 06/06/2022 Billed Final Performed By: [facility] [address] [place] [address] Poundmaster: Thierno Cintron MD, PhD XR KNEE LEFT AP LAT INT EXT [...] [address] Astorga in [facility]. Records from [facility] received and reviewed. The patient was seen in 05/11/13 for initial evaluation. Presented with polyarticular joint involvement- large and small joints- shoulders, elbows, knees, wrists, knuckles, toes. Per records she had low titer (+) RF, (-) CCP, (+) BRET centromere pattern > 8.0 with negative SSA/SSB, MALE IMPERSONATOR, Scl 70, dsDNA Records indicate she used [...] CRP 25.87 on 03/28/22. Off MTX for the last 2 months. Very active symptoms, synovitis in the wrists, minimal in the 2nd, 3rd, 4th, 5th right MCP, 4th, 5th right PIP, 1st, 5th left MCP, 5th left PIP, new left knee and left ankle effusion. Warmth to the left knee and left ankle. Will restart MTX 20 mg sq q week Will increase Simponi to 100 mg q month. Prednisone taper today Start Plaquenil 200 mg twice a day. Risks of therapy discussed with the patient including risk of retinopathy, allergic reactions, skin discoloration as well as very rare possibility of myopathy and arrhytmias. Advised to have eye exam at initiation of therapy and then on a yearly basis. Hepatitis panel checked and negative. Patient should [...] be consistent with APLS Return in about 2 months (around 08/28/2022). documented in this encounter Plan of Treatment Upcoming Encounters Date Type Department Care Team (Late st Contact Info) Description 08/31/2024 8:30 AM EST Appointment [place] [address] [place] [address] 10/25/2024 10:45 AM EST Office Visit [facility] [address] [facility] [address] [place] [address] Jessica Cortes MD [facility] [address] [place] [address] 01/25/2025 9:00 AM EDT Appointment [place] [address] [place] [address] 05/09/2025 11:00 AM EDT Appointment [place] [address] [place] [address] 05/09/2025 11:15 AM EDT Appointment [place] [address] [place] [address] Susana Garay MD [address] [facility] [place] [address] documented as of this encounter Goals Goal [...] positive Other and unspecified nonspecific immunological findings documented in this encounter Discontinued Medications Medication Sig Discontinue Reason Start Date End Da te Golimumab (SIMPONI) 50 mg/0.5 mL SubQ Pen InjectorIndications:R heumatoid arthritis involving multiple sites with positive rheumatoid factor (HCC) Inject under the skin 0.5 mL (one syringe) every 30 days. 02/07/2022 06/28/2022 methotrexate sodium 25 mg/mL Inj SolutionIndications:R heumatoid arthritis involving multiple sites with positive rheumatoid factor (HCC) SUBCUTANEOUS (INJECT UNDER THE SKIN) 0.6 ML ONCE A WEEK. Reorder 04/02/2022 06/28/2022 documented as of this encounter Care Teams Spray Booth Operator Relationship Specialty Start Date End Date Julisa Kerr MD [address] [place] [address] PCP - General 02/22/11 Jessica Cortes MD [address] [facility] [address] [place] [address] Internal Medicine-Rheumatology 04/26/16 documented as of this encounter
--- OUTSIDE RECORDS SUMMARY | 2024-08-22 21:45 | XMS_ITS | Encounter Summary ---
Author Organization [facility] [address] Care Team Providers Care Supply Teacher Name Role Phone Julisa Kerr MD Primary Care Provider [phone] Jessica Cortes MD Unavailable [phone] Encounter Details Date Type Department Care Team (Latest Contact Info) Description 04/02/2022 Travel Social History Tobacco Use Types Packs/Day [...] suspected to have Coronavirus/COVID-19? No / Unsure 03/28/2022 10:01 AM EDT documented as of this encounter [...] Description 08/31/2024 8:30 AM EST Appointment [address] [place] [address] 10/25/2024 10:45 AM EST Office Visit [facility] [address] [facility] [address] [place] [address] Jessica Cortes MD [address] [place] [address] [address] [place] [address] 01/25/2025 9:00 AM EDT Appointment [address] [place] [address] 05/09/2025 11:00 AM EDT Appointment [address] [place] [address] 05/09/2025 11:15 AM EDT Appointment [address] [place] [address] Susana Garay MD [address] [place] [address] [place] [address] documented as of this encounter Goals Goal Patient Goal Type Associated Problems Recent Progress Patient-Stated? Author Maintain a healthy diet, exercise regularly and maintain an ideal body weight General Porsche Ashley, RN documented as of this encounter Visit Diagnoses Not on filedocumented in this encounter Care Teams Supply Teacher Relationship Specialty Start Date End Date Julisa Kerr MD [address] [place] [address] PCP - General 02/22/11 Jessica Cortes MD [address] [place] [id number] Internal Medicine-Rheumatology 04/26/16 documented as of this encounter
--- OUTSIDE RECORDS SUMMARY | 2024-08-22 21:45 | XMS_ITS | Encounter Summary ---
Author Organization [facility] [place] [address] Care Team Providers Care Face Burler Name Role Phone Julisa Kerr MD Primary Care Provider [phone] Jessica Cortes MD Unavailable [phone] Encounter Details Date Type Department Care Team (Latest Contact Info) Description 04/24/2022 Travel Social History Tobacco Use Types Packs/Day [...] suspected to have Coronavirus/COVID-19? No / Unsure 04/24/2022 12:33 PM EDT documented as of this encounter [...] Description 08/31/2024 8:30 AM EST Appointment [address] [place] [address] 10/25/2024 10:45 AM EST Office Visit [facility] [address] [facility] [address] [place] [address] Jessica Cortes MD [address] [place] [address] [address] [place] [address] 01/25/2025 9:00 AM EDT Appointment [address] [place] [address] 05/09/2025 11:00 AM EDT Appointment [address] [place] [address] 05/09/2025 11:15 AM EDT Appointment [address] [place] [address] Susana Garay MD [address] [place] [address] [place] [address] documented as of this encounter Goals Goal Patient Goal Type Associated Problems Recent Progress Patient-Stated? Author Maintain a healthy diet, exercise regularly and maintain an ideal body weight General Porsche Ashley, RN documented as of this encounter Visit Diagnoses Not on filedocumented in this encounter Care Teams Face Burler Relationship Specialty Start Date End Date Julisa Kerr MD [address] [place] [address] PCP - General 02/22/11 Jessica Cortes MD [address] [id number] Internal Medicine-Rheumatology 04/26/16 documented as of this encounter
--- OUTSIDE RECORDS SUMMARY | 2024-08-22 21:45 | XMS_ITS | Encounter Summary ---
Author Organization [place] [address] Care Team Providers Care E Commerce Merchandising Coordinator Name Role Phone Julisa Kerr MD Primary Care Provider [phone] Jessica Cortes MD Unavailable [phone] Reason for Visit * Reason Onset Date Comments Medication Refill 05/31/2022 valACYclovir ( VALTREX) 1 gram Oral Tablet 12 Tab 1 10/18/2020 10/20/2020 Sig - Route: TAKE 2 TABS BY MOUTH 2 TIMES DAILY FOR 2 DAYS. PER FLARE OF COLD SORE - Oral Sent to pharmacy as: valACYclovir 1 gram tablet (VALTREX) Cosign for Ordering: Accepted by Julisa Kerr MD on 10/18/2020 10:10 AM E-Prescribing Status: Receipt confirmed by pharmacy (10/18/2020 ??8:48 AM EST) Encounter Details Date Type Department Care Team (Late st Contact Info) Description 05/31/2022 Telephone [facility] [address] [place] [address] Julisa Kerr MD [address] [place] [address] Medication Refill (valACYclovir (VALTREX) 1 gram Oral Tablet 12 Tab 1 10/18/2020 10/20/2020 /Sig - Route: TAKE 2 TABS BY MOUTH 2 TIMES DAILY FOR 2 DAYS. PER FLARE OF COLD SORE - Oral /Sent to pharmacy as: valACYclovir 1 gram tablet (VALTREX) /Cosign for Ordering: Accepted by Julisa Kerr MD on 10/18/2020 10:10 AM /E-Prescribing Status: Receipt confirmed by pharmacy (10/18/2020 ??8:48 AM EST) //) Social History Tobacco Use Types Packs/Day [...] 2 days. Per flare of cold sore 12 Tablet 1 05/31/2022 documented in this encounter Miscellaneous Notes * Telephone Encounter - Jayla Haile RMA - 05/31/2022 2:22 PM EDT Med sent to pharmacy * Telephone Encounter - Rae Ruiz - 05/31/2022 1:28 PM EDT Medication Refill Who is requesting the refill: Patient Medication(s)Name/Dosage/Frequency: valACYclovir (VALTREX) 1 gram Oral Tablet 12 Tab 1 10/18/2020 10/20/2020 Sig - Route: TAKE 2 TABS BY MOUTH 2 TIMES DAILY FOR 2 DAYS. PER FLARE OF COLD SORE - Oral Sent to pharmacy as: valACYclovir 1 gram tablet (VALTREX) Cosign for Ordering: Accepted by Julisa Kerr MD on 10/18/2020 10:10 AM E-Prescribing Status: Receipt confirmed by pharmacy (10/18/2020 ??8:48 AM EST) Did patient contact the pharmacy first: No How many days left on hand: 0 Future appt date w/ prescribing provider: no Pharmacy & Location: [facility] Additional Notes: documented in this encounter Plan of Treatment Upcoming Encounters Date Type Department Care Team (Late st Contact Info) Description 08/31/2024 8:30 AM EST Appointment [facility] [address] [place] [address] 10/25/2024 10:45 AM EST Office Visit [facility] [address] [facility] [address] [place] [phone] Jessica Cortes MD [address] [facility] Building [address] [place] [address] 01/25/2025 9:00 AM EDT Appointment [address] [place] [address] [place] [address] 05/09/2025 11:00 AM EDT Appointment [address] [place] [address] 05/09/2025 11:15 AM EDT Appointment [address] [place] [address] [place] [address] Susana Garay MD [address] [place] [address] [place], [place] [phone] documented as of this encounter Goals Goal [...] valACYclovir (VALTREX) 1 gram Oral TabletIndications:Herpes labialis TAKE 2 TABS BY MOUTH 2 TIMES DAILY FOR 2 DAYS. PER FLARE OF COLD SORE Reorder 10/18/2020 05/31/2022 documented as of this encounter Care Teams E Commerce Merchandising Coordinator Relationship Specialty Start Date End Date Julisa Kerr MD [address] [place] [address] PCP - General 02/22/11 Jessica Cortes MD [address] [facility] [address] [place], [place] [address] Internal Medicine-Rheumatology 04/26/16 documented as of this encounter
--- OUTSIDE RECORDS SUMMARY | 2024-08-22 21:45 | XMS_ITS | Encounter Summary ---
Author Organization [facility] Address [address] [id number] Care Team Providers Care Tape Fastener Machine Operator Name Role Phone Julisa Kerr MD Primary Care Provider [phone] Jessica Cortes MD Unavailable [phone] Reason for Referral * Consultation (Routine) - Closed Specialty Diagnoses / Procedures Referred By Anatoliy cole Referred To Contact Family Medicine-Sports Medicine / Orthopedic Surgery Diagnoses Left knee pain, unspecified chronicity Left ankle pain, unspecified chronicity Che Ortiz APRN [address] [place] [address] Phone: tel: fax: Josephine Cotton, DO [address] [place] [address] Phone: tel: fax: Referral ID Status Reason Start Date Expiration Date Visits Re quested Visits Authorized [id number] Closed 06/19/2022 06/19/2023 99 99 Reason for Visit * Reason Comments Knee Pain Left knee,x 06/06/20 22, Pt asked for cortisone injection which was administered on the right knee on 05/15/[address] Graff Ankle Pain left Encounter Details Date Type Department Care Team (Late st Contact Info) Description 06/19/2022 11:45 AM EDT Office Visit [facility] [address] [address] Che Ortiz APRN [address] [place] [id number] Left knee pain, unspecified chronicity (Primary Dx); Left ankle pain, unspecified chronicity; History of rheumatoid arthritis Social History Tobacco Use Types Packs/Day Years [...] Sign Reading Time Taken Comments Blood Pressure 110/72 06/19/2022 12:09 PM EDT Pulse 97 06/19/2022 12:09 PM EDT Temperature 36.8 ??C (98.2 ??F) 06/19/2022 12:09 PM E DT Respiratory Rate 14 06/19/2022 12:09 PM EDT Oxygen Saturation 99% 06/19/2022 12:09 PM EDT Inhaled Oxygen Concentration - - Weight 59.4 kg (131 lb) 06/19/2022 12:09 PM EDT Height 157.5 cm (5' 2 ) 06/19/2022 12:09 PM EDT Body Mass Index 23.96 06/19/2022 12:09 PM EDT documented in this encounter Functional [...] Albin Levy MA documented in this encounter Patient Instructions * Attachments The following attachments cannot be sent through Care Everywhere. * Knee Pain Discharge Instructions ([place]) documented in this encounter Progress Notes * Che Ortiz, JOSE - 06/19/2022 11:45 AM EDT Subjective Chief Complaint Patient presents with ??? Knee Pain Left knee,x 06/06/2022, Pt asked for cortisone injection which was administered on the right knee on 05/15/[address] Graff ??? Ankle Pain left Yuliet Trevino is a 51 y.o. female with past medical history of rheumatoid arthritis and osteopenia presents to urgent care with complaints of left knee and left ankle pain. She states she has had left knee pain and left ankle pain for at least the past several months. She denies any known injury or trauma. She reports intermittent swelling, redness and warmth to knee. She states left knee pain is currently somewhat improving after she received her prescribed Simponi injection two days ago, but that she can still feel warmth and pain to it. She also reports swelling to left ankle today without redness or warmth. She has taken her prescribed medications. She was previously seen in urgent care on 05/15/2022 for complaints of bilateral knee pain. She was given an in joint injection to right knee of methylprednisone at that time. She states in joint injection helped relieve right knee pain and denies any current right knee pain at this time. Her D-dimer was also elevated at that time. She states she then went to [facility] ER on 05/15/22 due to elevated D- Dimer and was told she had a DVT to right lower leg. She is currently prescribed Eliquis. She saw her PCP on 06/06/2022 and was seen for acute pain of left knee and prescribed Medrol Dosepak at that time. She states knee pain did improve somewhat while taking Medrol Dosepak but returned several days after completing. She is currently followed by Rheumatology (Dr. Regalado). She received her Simponi injection two days ago which did help relieve some pain. Review of Systems Constitutional: Negative for fever. Musculoskeletal: Positive for arthralgias and joint swelling. Skin: Negative for color change and wound. Neurological: Negative for numbness. Patient Active Problem List Diagnosis ??? PRAVEEN (stress urinary incontinence, female) ??? Raynaud's phenomenon ??? Rheumatoid arthritis involving multiple sites with positive rheumatoid factor (HCC) ??? Osteopenia ??? Immunocompromised patient (HCC) ??? Vitamin B 12 deficiency ??? Positive BRET (antinuclear antibody) ??? Neck pain Outpatient Medications Marked as Taking for the 06/19/22 encounter (Office Visit) with Che Ortiz APRN Medication Sig Dispense Refill ??? Amantadine 100 mg Oral Tablet ??? cyanocobalamin 1,000 mcg/mL Inj Solution INJECT 1ML INTO THE MUSCLE EVERY MONTH 1 mL 11 ??? diclofenac (VOLTAREN) 75 mg Oral Tablet, Delayed Release (E.C.) Take 1 Tablet by mouth 2 times daily. 60 Tablet 1 ??? ELIQUIS 5 mg Oral Tablet TAKE 2 TABLETS BY MOUTH TWICE DAILY FOR 7 DAYS THEN TAKE 1 TABLET BY MOUTH TWICE DAILY FOR 30 DAYS ??? folic acid (FOLVITE) 1 mg Oral Tablet TAKE 1 TABLET BY MOUTH EVERY DAY 30 Tablet 11 ??? Golimumab (SIMPONI) 50 mg/0.5 mL SubQ Pen Injector Inject under the skin 0.5 mL (one syringe) every 30 days. 0.5 mL 5 ??? leflunomide (ARAVA) 10 mg Oral Tablet Take 1 Tablet by mouth daily. 30 Tablet 1 ??? methotrexate sodium 25 mg/mL Inj Solution SUBCUTANEOUS (INJECT UNDER THE SKIN) 0.6 ML ONCE A WEEK. 4 mL 1 ??? methylPREDNISolone (MEDROL DOSPACK) 4 mg Oral Tablets, Dose Pack See package instructions 21 Tablet 0 ??? PROAIR HFA 90 mcg/actuation Inhl HFA Aerosol Inhaler INHALE 2 PUFFS BY MOUTH EVERY 6 HOURS NEEDED FOR WHEEZE 8.5 Each 3 Allergies Allergen Reactions ??? Orencia [Abatacept (With Maltose)] Swelling and Other (See Comments) Facial tingling/ numbness ??? Enbrel [Etanercept] Itching ??? Humira [Adalimumab] Itching ??? Mobic [Meloxicam] Hives ??? Xeljanz [Tofacitinib] Itching Social Social History Socioeconomic History ??? Marital status: Spouse name: None ??? Number of children: None ??? Years of education: None ??? Highest education level: None Tobacco Use ??? Smoking status: Never Smoker ??? Smokeless tobacco: Never Used Substance and Sexual Activity ??? Alcohol use: Yes Comment: occasional ??? Drug use: No ??? Sexual activity: Yes Family History Problem Relation Age of Onset ??? Arthritis Father ??? Arthritis Paternal Grandmother Immunization History Administered Date(s) Administered ??? Influenza Vaccine Quadrivalent 07/01/2017 ??? Influenza Vaccine, Unspecified Formulation 06/19/2018, 07/16/2019 ??? PPD Test 05/13/2013, 07/21/2014, 09/18/2015, 03/10/2017, 05/26/2018 ??? Pneumococcal Conjugate Vaccine 13 Valent 12/13/2016 ??? Pneumococcal Polysaccharide 23 Valent 03/17/2017 Patient Care Team: Julisa Kerr MD as PCP - General Jessica Cortes MD (Internal Medicine-Rheumatology) Objective BP 110/72 (BP Location: Right arm, Patient Position: Sitting) Pulse 97 Temp 98.2 ??F (36.8 ??C)(Oral) Resp 14 Ht 5' 2 (1.575 m) Wt 131 lb (59.4 kg) SpO2 99% BMI 23.96 kg/m?? Physical Exam Vitals and nursing note reviewed. Constitutional: General: She is awake. She is not in acute distress. Appearance: Normal appearance. She is well-developed and well-groomed. She is not ill-appearing, toxic-appearing or diaphoretic. Cardiovascular: Pulses: Dorsalis pedis pulses are 2+ on the left side. Musculoskeletal: Left knee: No swelling, deformity, effusion, bony tenderness or crepitus. Normal range of motion. Tenderness present. Normal alignment and normal patellar mobility. Instability Tests: Medial Kamar test negative and lateral Kamar test negative. Left lower leg: No swelling, tenderness or bony tenderness. No edema. Left ankle: Swelling present. No deformity or ecchymosis. Tenderness present over the lateral malleolus. Normal range of motion. Left foot: Normal range of motion. No swelling, tenderness or bony tenderness. Neurological: Mental Status: She is alert. Psychiatric: Behavior: Behavior is cooperative. ?? XR KNEE LEFT AP LAT INT EXT OBLIQUES AND SUNRISE, 06/19/2022 12:37 PM CLINICAL HISTORY: M25.562-Pain in left [id number] ?? COMPARISON: None. ?? PROCEDURE COMMENTS: Routine views per the ordered protocol. ?? FINDINGS: ?? There is no acute fracture, dislocation, or ankle joint effusion. Medial and patellofemoral osteophytes are present without joint space narrowing. ?? IMPRESSION: No acute osseous findings. ?? XR ANKLE LEFT AP LATERAL AND OBLIQUE, 06/19/2022 12:37 PM CLINICAL HISTORY: M25.572-Pain in left ankle and joints of left [id number] ?? COMPARISON: 03/01/2021 ?? PROCEDURE COMMENTS: Routine views per the ordered protocol. ?? FINDINGS: ?? There is lateral ankle soft tissue swelling. No definite acute fracture is present. Oblique lucency of the lateral malleolus on the AP view appears to reflect superimposition of the distal lateral tibia. There is no ankle joint malalignment or degenerative joint disease. ?? IMPRESSION: Soft tissue swelling. No acute osseous findings. No results found for this visit on 06/19/22. Assessment and Plan Yuliet was seen today for knee pain and ankle pain. Diagnoses and all orders for this visit: Left knee pain, unspecified chronicity - XR KNEE LEFT AP LAT INT EXT OBLIQUES AND SUNRISE; Future - AMB REFERRAL TO ORTHOPEDIC SURGERY Left ankle pain, unspecified chronicity - XR ANKLE LEFT AP LATERAL AND OBLIQUE; Future - AMB REFERRAL TO ORTHOPEDIC SURGERY History of rheumatoid arthritis Referral placed to [facility] for follow up. Discussed with patient that I do not feel comfortable giving in an joint injection to left knee at this time. May use OTC Tylenol as needed for pain May apply ice to knee and ankle as needed for pain Elevate joints as much as possible; activity as tolerate A 4 inch Eros wrap was applied to left ankle due to swelling for comfort. Patient tolerated well, nocomplications noted Given instructions on conservative care for this condition and signs and symptoms to follow-up on immediately. Return if symptoms worsen or fail to improve. Education provided regarding the care plan and instructions listed on the After Visit Summary [AVS]for today's visit. Full understanding of the care plan and instructions given on the AVS for today's visit was verbalized. Che Ortiz APRN documented in this encounter Miscellaneous Notes * Patient Instructions - Che Ortiz APRN - 06/19/2022 11:45 AM EDT Referral placed to [facility] for follow up May use OTC Tylenol as needed for pain May apply ice to knee and ankle as needed for pain Elevate joints as much as possible; activity as tolerated documented in this encounter Plan of Treatment Upcoming Encounters Date Type Department Care Team (Late st Contact Info) Description 08/31/2024 8:30 AM EST Appointment [facility] [address] [place] [address] 10/25/2024 10:45 AM EST Office Visit [facility] [address] [facility] [address] [place] [address] Jessica Cortes MD [address] [facility] [address] [place] [address] 01/25/2025 9:00 AM EDT Appointment [address] [address] [place] [address] 05/09/2025 11:00 AM EDT Appointment [address] [address] [place] [address] 05/09/2025 11:15 AM EDT Appointment [address] [place] [address] [place] [address] Susana Garay MD [address] [place] [address] [place] [id number] Scheduled Referrals Name Type Priority Associated Diagnoses Orde r Schedule AMB REFERRAL TO ORTHOPEDIC SURGERY Outpatient Referral Routine Left knee pain, unspecified chronicity Left ankle pain, unspecified chronicity Ordered: 06/19/2022 documented as of this encounter Goals Goal Patient Goal Type Associated Problems Recent Progress Patient-Stated? 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 RN documented as of this encounter Results * XR ANKLE LEFT AP LATERAL AND OBLIQUE (06/19/2022 12:37 PM EDT) Anatomical Region Laterality Modality Ankle Radiographic Fallon ging 06/19/2022 12:3 7 PM EDT Impressions 06/19/2022 12:50 PM EDT Soft tissue swelling. No acute osseous findings. - Narrative 06/19/2022 12:50 PM EDT XR ANKLE LEFT AP LATERAL AND OBLIQUE, ??06/19/2022 12:37 PM CLINICAL HISTORY: ??M25.572-Pain in left ankle and joints of left [id number] COMPARISON: ??03/01/2021 PROCEDURE COMMENTS: Routine views per the ordered protocol. FINDINGS: There is lateral ankle soft tissue swelling. No definite acute fracture is present. Oblique lucency of the lateral malleolus on the AP view appears to reflect superimposition of the distal lateral tibia. There is no ankle joint malalignment or degenerative joint disease. Procedure Note Thomas Wright MD - 06/19/2022 XR ANKLE LEFT AP LATERAL AND OBLIQUE, 06/19/2022 12:37 PM CLINICAL HISTORY: M25.572-Pain in left ankle and joints of [id number] COMPARISON: 03/01/2021 PROCEDURE COMMENTS: Routine views per the ordered protocol. FINDINGS: There is lateral ankle soft tissue swelling. No definite acute fractureis present. Oblique lucency of the lateral malleolus on the AP view appearsto reflect superimposition of the distal lateral tibia. There is no anklejoint malalignment or degenerative joint disease. IMPRESSION: Soft tissue swelling. No acute osseous findings. - Che Ortiz APRN [facility]AG[facility] ORD ERABLES Final Result * XR KNEE LEFT AP LAT INT EXT OBLIQUES AND SUNRISE (06/19/2022 12:37 PM EDT) Anatomical Region Laterality Modality Knee Radiographic Fallon ging 06/19/2022 12:3 7 PM EDT Impressions 06/19/2022 12:51 PM EDT No acute osseous findings. - Narrative 06/19/2022 12:51 PM EDT XR KNEE LEFT AP LAT INT EXT OBLIQUES AND SUNRISE, ??06/19/2022 12:37 PM CLINICAL HISTORY: ??M25.562-Pain in left [id number] COMPARISON: ??None. PROCEDURE COMMENTS: ??Routine views per the ordered protocol. FINDINGS: There is no acute fracture, dislocation, or ankle joint effusion. Medial and patellofemoral osteophytes are present without joint space narrowing. Procedure Note Thomas Wright MD - 06/19/2022 XR KNEE LEFT AP LAT INT EXT OBLIQUES AND SUNRISE, 06/19/2022 12:37 PM CLINICAL HISTORY: M25.562-Pain in left [id number]-CM COMPARISON: None. PROCEDURE COMMENTS: Routine views per the ordered protocol. FINDINGS: There is no acute fracture, dislocation, or ankle joint effusion. Medialand patellofemoral osteophytes are present without joint space narrowing. IMPRESSION: No acute osseous findings. - Che Ortiz APRN [facility]NO[facility]IC [facility]AGING ORD ERABLES Final Result documented in this encounter Visit Diagnoses Diagnosis Left knee pain, unspecified chronicity- Primary Left ankle pain, unspecified chronicity History of rheumatoid arthritis Personal history of arthritis Left knee pain, unspecified chronicity Left ankle pain, unspecified chronicity documented in this encounter Care Teams Tape Fastener Machine Operator Relationship Specialty Start Date End Date Julisa Kerr MD [address] [place] [address] PCP - General 02/22/11 Jessica Cortes MD [address] [facility] [address] [place] [address] Internal Medicine-Rheumatology 04/26/16 documented as of this encounter
--- OUTSIDE RECORDS SUMMARY | 2024-08-22 21:45 | XMS_ITS | Encounter Summary ---
Author [place] [address] Care Team Providers Care Analytical Lab Analyst Name Role Phone Julisa Kerr MD Primary Care Provider [phone] Jessica Cortes MD Unavailable [phone] Reason for Visit * Reason Comments Medication Refill Encounter Details Date Type Department Care Team (Late st Contact Info) Description 06/27/2022 Refill [facility] [address] [place] [address] Jessica Cortes MD [address] [address] Medication Refill Social History Tobacco [...] DAY 30 Tablet 1 06/28/2022 08/27/2022 documented in this encounter Miscellaneous Notes * Telephone Encounter - Ami Bazan MA - 06/27/2022 9:55 AM EDT Last OV: 04/24/2022 Next OV: 06/28/2022 BW: 06/06/2022 Chart Reviewed. - leflunomide (ARAVA) 10 mg Oral Tablet; Take 1 Tablet by mouth daily. Labs every 6-8 weeks while on MTX and Arava to monitor for toxicities. documented in this encounter Plan of Treatment Upcoming Encounters Date Type Department Care Team (Late st Contact Info) Description 08/31/2024 8:30 AM EST Appointment [address] [address] [place] [address] 10/25/2024 10:45 AM EST Office Visit [facility] [address] [place] [address] Jessica Cortes MD [address] [place] [address] 01/25/2025 9:00 AM EDT Appointment [address] [address] [place] [address] 05/09/2025 11:00 AM EDT Appointment [address] [address] [place] [address] 05/09/2025 11:15 AM EDT Appointment [address] [address] [place] [address] Susana Garay MD [address] [place] [address] documented as of this encounter Goals Goal [...] (HCC) Take 1 Tablet by mouth daily. 04/24/2022 06/28/2022 documented as of this encounter Care Teams Analytical Lab Analyst Relationship Specialty Start Date End Date Julisa Kerr MD [address] [place], [place] [id number] PCP - General 02/22/11 Jessica Cortes MD 651 [facility] Building [address] [place] [address] Internal Medicine-Rheumatology 04/26/16 documented as of this encounter
--- OUTSIDE RECORDS SUMMARY | 2024-08-22 21:45 | XMS_ITS | Encounter Summary ---
Author [place] [address] Care Team Providers Care Transition Advisor Name Role Phone Julisa Kerr MD Primary Care Provider [phone] Jessica Cortes MD Unavailable [phone] Encounter Details Date Type Department Care Team (Latest Contact Info) Description 05/15/2022 11:47 AM EDT - 05/15/2022 11:59 PM EDT Hospital Encounter [facility] [address] [place] [address] Right leg pain Discharge Disposition: Home or Self Care [...] this encounter Medications at Time of Discharge cefdinir (OMNICEF) 300 mg Oral Capsule Take 1 Capsule by mouth 2 times daily for 10 days. 20 Capsule 05/15/2022 05/25/2022 cyanocobalamin 1,000 mcg/mL Inj SolutionIndicatio ns:Vitamin B 12 deficiency INJECT 1ML INTO THE MUSCLE EVERY MONTH 1 mL 11 02/12/2022 02/17/2023 diclofenac (VOLTAREN) 75 mg Oral Tablet, Delayed Release (E.C.)Indications :Rheumatoid arthritis involving multiple sites with positive rheumatoid factor (HCC) Take 1 Tablet by mouth 2 times daily. 60 Tablet 1 04/24/2022 06/24/2022 Golimumab (SIMPONI) 50 mg/0.5 mL SubQ Pen InjectorIndicatio ns:Rheumatoid arthritis involving multiple sites with positive rheumatoid factor (HCC) Inject under the skin 0.5 mL (one syringe) every 30 days. 0.5 mL 5 06/13/2022 1:42 PM EDT 02/07/2022 06/28/2022 leflunomide (ARAVA) 10 mg Oral TabletIndications :Rheumatoid arthritis involving multiple sites with positive rheumatoid factor (HCC) Take 1 Tablet by mouth daily. 30 Tablet 1 04/24/2022 06/28/2022 documented as of this encounter Discharge Disposition Disposition Code Departure Means Destination Home or Self Care documented in this encounter Plan of Treatment Upcoming Encounters Date Type Department Care Team (Late st Contact Info) Description 08/31/2024 8:30 AM EST Appointment [address] [address] [place] [address] 10/25/2024 10:45 AM EST Office Visit [facility] [address] [place] [address] Jessica Cortes MD [address] [place] [address] 01/25/2025 9:00 AM EDT [address]ointment [address] [place] [address] 05/09/2025 11:00 AM EDT [address]ment [address] [place] [address] 05/09/2025 11:15 AM EDT [address]ointment [address] [place] [address] Susana Garay MD [address] [place] [address] [place] [address] documented as of this encounter Goals Goal Patient Goal Type Associated Problems Recent Progress Patient-Stated? 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, RN documented as of this encounter Procedures Procedure Name Priority Date/Time Associated Diagnosis Comments D-DIMER STAT 05/15/2022 11:47 AM EDT Right leg pain documented in this encounter Results * (ABNORMAL) D-DIMER (05/15/2022 11:47 AM EDT) D-Dimer 3,340(H) <=500 ng/mL FEU 05/15/2022 1:58 PM EDT [place] Comment:This is an automated latex enhanced immunoassay for the quantitative determination of D-Dimer that may be used, in conjunction with a clinical pretest probability assessment, to exclude venous thromboembolism in patients suspected of deep venous thrombosis (DVT) and pulmonary embolism (PE). The cutoff for exclusion of DVT and PE is 500 ng/mL Fibrinogen Equivalent Units (FEU). Elevated D-Dimer levels may be associated with PE, DVT, disseminated intravascular coagulation, recent surgery, recent bleeding, , malignancy, and inflammation. Blood VENOUS BLOOD / Unknown Venipuncture / Unknown 05/15/2022 11:47 AM EDT 05/15/2022 11:47 AM EDT Narrative [facility] [place] - 05/15/2022 1:58 PM EDT For patients between the ages of 50 - 75, an age-adjusted D-Dimer cut-off in combination with non-high clinical probability may be considered for the exclusion of venous thromboembolism (calculation = age x 10). CHARITO Pedraza, et al. Beatriz Retread Technician Med. 2017;166(5):361-363 PADMINI Navas, et al. Beatriz Retread Technician Med. 2015;(163):701-711. Janine Raymond, et al. VIANCA. 2014;(11):0514-8874. us Nicholas Graff MD HEMATOLOGY ORDERABLES Final Resu lt [place] [address] [facility] [address] , [place] [address] documented in this encounter Visit Diagnoses Diagnosis Right leg pain Pain in limb documented in this encounter Care Teams Transition Advisor Relationship Specialty Start Date End Date Julisa Kerr MD [address] [place] [id number] PCP - General 02/22/11 Jessica Cortes MD 651 [facility] Building [address] [place] [address] Internal Medicine-Rheumatology 04/26/16 documented as of this encounter
--- OUTSIDE RECORDS SUMMARY | 2024-08-22 21:45 | XMS_ITS | Encounter Summary ---
Author Organization [place] [address] Care Team Providers Care Supervisor Drying And Softening Name Role Phone Julisa Kerr MD Primary Care Provider [phone] Jessica Cortes MD Unavailable [phone] Reason for Visit * Reason Comments Pharmacy Rheumatology Management Simponi Encounter Details Date Type Department Care Team (Latest Contact Info) Description 05/09/2022 Specialty Pharmacy [facility] [address] [phone] Aleyda Contreras CPhT Pharmacy Rheumatology Management (Simponi) Social History [...] documented in this encounter Progress Notes * Aleyda Contreras CPhT - 05/09/2022 10:27 AM EDT Specialty Pharmacy Refill Coordination Note Yulite Trevino is a 51 y.o. female contacted today regarding refills of her Simponi . No answer, left voicemail to call [phone]. * Jacey Miller CPhT - 05/09/2022 10:27 AM EDT Specialty Pharmacy Refill Coordination Note Yuliet Trevino is a 51 y.o. female contacted today regarding refills of her Simponi. No answer, left voicemail to call [phone]. * Nichole Villanueva CPhT - 05/09/2022 10:27 AM EDT Specialty Pharmacy Refill Coordination Note Yuliet Trevino is a 51 y.o. female contacted today regarding refills of her Simponi. Medication to be delivered by [facility] on 05/17/22. Spoke with patient. documented in this encounter Plan of Treatment Upcoming Encounters Date Type Department Care Team (Late st Contact Info) Description 08/31/2024 8:30 AM EST Appointment [address] [place] [address] 10/25/2024 10:45 AM EST Office Visit [facility] [address] [place] [address] Jessica Cortes MD [address] [place] [address] 01/25/2025 9:00 AM EDT Appointment [address] [address] 05/09/2025 11:00 AM EDT Appointment [address] [address] 05/09/2025 11:15 AM EDT Appointment [address] [address] Susana Garay MD [address] [place] [address] [place] [address] documented as of this encounter Goals Goal Patient Goal Type Associated Problems Recent Progress Patient-Stated? 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, RN documented as of this encounter Visit Diagnoses Not on filedocumented in this encounter Care Teams Supervisor Drying And Softening Relationship Specialty Start Date End Date Julisa Kerr MD [address] [place] [phone] PCP - General 02/22/11 Jessica Cortes MD [address] [phone] Internal Medicine-Rheumatology 04/26/16 documented as of this encounter
--- OUTSIDE RECORDS SUMMARY | 2024-08-22 21:45 | XMS_ITS | Encounter Summary ---
Author Organization [place] [address] Care Team Providers Care Machine Container Washer Name Role Phone Julisa Kerr MD Primary Care Provider [phone] Jessica Cortes MD Unavailable [phone] Encounter Details Date Type Department Care Team (Latest Contact Info) Description 06/19/2022 12:40 PM EDT Ancillary Procedure [facility] [address] [address] Che Ortiz APRN [address] [phone] Left knee pain, unspecified chronicity; Left ankle pain, unspecified chronicity Discharge Disposition: Home or Self Care Social [...] Levy MA documented in this encounter Discharge Disposition Disposition Code Departure Means Destination Home or Self Care documented in this encounter Plan of Treatment Upcoming Encounters Date Type Department Care Team (Late st Contact Info) Description 08/31/2024 8:30 AM EST Appointment [address] [place] [address] 10/25/2024 10:45 AM EST Office Visit [facility] [address] [place] [address] Jessica Cortes MD [address] [facility] [address] [place] [phone] 01/25/2025 9:00 AM EDT Appointment [address] [place] [address] 05/09/2025 11:00 AM EDT Appointment [facility] [address] [place] [address] 05/09/2025 11:15 AM EDT Appointment [facility] [address] [place] [address] Susana Garay MD [address] [place] [address] [place] [address] documented as of this encounter Goals Goal Patient Goal Type Associated Problems Recent Progress Patient-Stated? 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 RN documented as of this encounter Procedures Procedure Name Priority Date/Time Associated Diagnosis Comments XR KNEE LEFT AP LAT INT EXT OBLIQUES AND SUNRISE STAT 06/19/2022 12:37 PM EDT Left knee pain, unspecified chronicity XR ANKLE LEFT AP LATERAL AND OBLIQUE STAT 06/19/2022 12:37 PM EDT Left ankle pain, unspecified chronicity documented in this encounter Results * XR ANKLE LEFT [...] in left ankle and joints of left [id number] COMPARISON: ??03/01/2021 PROCEDURE COMMENTS: Routine views per [...] M25.572-Pain in left ankle and joints of nigxtykn-NJQ-86-CM COMPARISON: 03/01/2021 PROCEDURE COMMENTS: Routine views per [...] IMG DIAGNOSTIC IMAGING ORD ERABLES Final Result * [...] 12:37 PM CLINICAL HISTORY: ??M25.562-Pain in left hckm-NOY-90-CM COMPARISON: ??None. PROCEDURE COMMENTS: ??Routine views per the ordered protocol. FINDINGS: There is no acute fracture, dislocation, or ankle joint effusion. Medial and patellofemoral osteophytes are present without joint space narrowing. Procedure Note Thomas Wright MD - 06/19/2022 XR KNEE LEFT AP LAT INT EXT OBLIQUES AND SUNRISE, 06/19/2022 12:37 PM CLINICAL HISTORY: M25.562-Pain in left cuis-FBB-01-CM COMPARISON: None. PROCEDURE COMMENTS: Routine views per the ordered protocol. FINDINGS: There is no acute fracture, dislocation, or ankle joint effusion. Medialand patellofemoral osteophytes are present without joint space narrowing. IMPRESSION: No acute osseous findings. - Che Ortiz JOSE IMG DIAGNOSTIC IMAGING ORD ERABLES Final Result documented in this encounter Visit Diagnoses Diagnosis Left knee pain, unspecified chronicity Left ankle pain, unspecified chronicity documented in this encounter Care Teams Machine Container Washer Relationship Specialty Start Date End Date Julisa Kerr MD 100 [place] [address] PCP - General 02/22/11 Jessica Cortes MD 651 [facility] [address] [place] [address] Internal Medicine-Rheumatology 04/26/16 documented as of this encounter
--- OUTSIDE RECORDS SUMMARY | 2024-08-22 21:45 | XMS_ITS | Encounter Summary ---
Author Organization [place] [address] Care Team Providers Care Factorer Name Role Phone Julisa Kerr MD Primary Care Provider [phone] Jessica Cortes MD Unavailable [phone] Reason for Referral * DEXA (Routine) - Closed Specialty Diagnoses / Procedures Referred By Contac t Referred To Contact Radiology Diagnoses Post-menopausal Procedures DX BONE DENSITY AXIAL SKELETON Julisa Kerr MD [address] [place] [address] Phone: tel: fax: Referral ID Status Reason Start Date Expiration Date Visits Re quested Visits Authorized [id number] Closed 02/12/2022 02/12/2023 1 1 Reason for Visit * DEXA (Routine) - Closed Specialty Diagnoses / Procedures Referred By Contac t Referred To Contact Radiology Diagnoses Post-menopausal Procedures DX BONE DENSITY AXIAL SKELETON Julisa Kerr MD [address] [place] [address] Phone: tel: fax: Referral ID Status Reason Start Date Expiration Date Visits Re quested Visits Authorized [id number] Closed 02/12/2022 02/12/2023 1 1 Encounter Details Date Type Department Care Team ([facility] st Contact Info) Description 04/24/2022 12:33 PM EDT - 04/24/2022 11:59 PM EDT Hospital Encounter [facility] [address] [place], [place] [id number] Julisa Kerr MD 100 [place] [address] Post-menopausal Discharge Disposition: Home or Self Care Social [...] Info) Description 08/31/2024 8:30 AM EST Appointment [address] [address] [place] [address] 10/25/2024 10:45 AM EST Office Visit [facility] [address] [place] [address] Jessica Cortes MD [address] [facility] [address] [place] [address] 01/25/2025 9:00 AM EDT Appointment [address] [address] [place] [address] 05/09/2025 11:00 AM EDT Appointment [facility] [place] [address] 05/09/2025 11:15 AM EDT Appointment [facility] [place] [address] Susana Garay MD [address] [place] [address] [place] [address] documented as of this encounter Goals Goal Patient Goal Type Associated Problems Recent Progress Patient-Stated? 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 RN documented as of this encounter Procedures Procedure Name Priority Date/Time Associated Diagnosis Comments DX BONE DENSITY AXIAL SKELETON Routine 04/24/2022 1:00 PM EDT Post-menopausal documented in this encounter Results * DX BONE DENSITY AXIAL SKELETON (04/24/2022 1:00 PM EDT) Anatomical Region Laterality Modality Dexa Scan 04/24/2022 Narrative 04/25/2022 1:51 PM EDT Indication: The patient is a post-menopausal female under age 65 with clinical risk factors for an osteoporotic fracture that requires a bone density assessment. Study was performed on Sure[employer]ak 5. Bone Density: Region ?BMD ? T-score ? Z- score ?? AP Spine (L1-L4) ?0.894 ?-1.4 ?-0.6 ? Femoral Neck (Right) ?0.579 ?-2.4 ?-1.6 ? Total Hip (Right) ? 0.693 ?-2.0 ?-1.5 ? World Health Organization criteria for BMD interpretation classify patients as: Normal (T-score at or above -1.0), Low Bone Density (T-score between -1.0 and -2.5), or Osteoporotic (T-score at or below -2.5). T Scores are reported in Postmenopausal women and in men age 50 and older. ?? Z-scores are reported in females prior to menopause and in males younger than age 50. 10-year Fracture Risk(1): Major Osteoporotic Fracture ?16% Hip Fracture ? 3.5% Reported Risk Factors: [place] (), Neck BMD=0.579, BMI=23.5, previous fracture, rheumatoid arthritis (1) FRAX(R) Version 3.08. Fracture probability calculated for an untreated patient. Fracture probability may be lower if the patient has received treatment. Previous Exams: Region ? Date ?Age ?BMD ??T-score ?BMD Change AP Spine(L1-L4) ? 04/24/2022 ?51 ?0.894 ?-1.4 ?-1.6% ? 12/18/2018 ?48 ?0.909 ?-1.3 ? Total Hip(Right) ? 04/24/2022 ?51 ?0.693 ?-2.0 ?-7.0%* ? 12/18/2018 ?48 ?0.745 ?-1.6 ?3.7%* ? 05/03/2016 ?45 ?0.718 ?-1.8 ? *Denotes significance at 95% confidence level, LSC for AP Spine = 0.032g/cm2, LSC for Total Hip = 0.024 g/cm2, LSC for Distal 1/3 Radius = 0.026 g/cm2, site specific LSC for AP Spine = 0.032 g/cm2, ??site specific LSC for Total Hip = 0.022 g/cm2 ? BMD is shown in g/cm2 and BMD Change indicates change vs previous BMD Clinical Information Provided by Patient: Has had a low trauma fracture Has rheumatoid arthritis Has used or is currently using the following medications: Calcium, Vitamin D, Chemotherapy drugs Has had or currently has the following medical conditions: Asthma, Emphysema or COPD, Back pain, Hip pain Patient maximum height was 62.5 Menopause Age: 32 Patient is postmenopausal ??rt wrist fx Interpretation: Bone mineral density is in the low bone density range. The spine bone mineral density is not significantly changed since the last exam. The right hip bone mineral density is significantly decreased since the last exam. Patient's FRAX score indicates the patient is at increased risk for a fragility fracture in the next 10 years. Patient's FRAX score is included in the body of this report. The National Osteoporosis Foundation recommends treating patients with FRAX scores of greater than or equal to 20% for major osteoporotic fractures for greater than or equal to 3% for hip fracture. A minimum of two years may be required between bone density studies due to inherent testing precision limitations. Intervals between BMD testing should be determined according to each patient's clinical status: typically one year after initiation or change of therapy is appropriate, with longer intervals once therapeutic effect is established. Reported by: Martine Figueroa PA-C, CCD on 04/24/2022 1:05:00 PM. us Julisa Kerr MD IMG DEXA ORDERABLES Final Resu lt documented in this encounter Visit Diagnoses Diagnosis Post-menopausal Asymptomatic postmenopausal status (age-related) (natural) documented in this encounter Care Teams Factorer Relationship Specialty Start Date End Date Julisa Kerr MD [address] [place] [address] PCP - General 02/22/11 Jessica Cortes MD 651 [facility] [address] [place] [phone] Internal Medicine-Rheumatology 04/26/16 documented as of this encounter
--- OUTSIDE RECORDS SUMMARY | 2024-08-22 21:45 | XMS_ITS | Encounter Summary ---
Author Organization [facility] [place] [address] Care Team Providers Care Evp Strategy Name Role Phone Julisa Kerr MD Primary Care Provider [phone] Jessica Cortes MD Unavailable [phone] Reason for Visit * Reason Comments Leg Swelling bilateral knee swell ing, now right lower calf pain, x2 wk Urinary Frequency x1 day Encounter Details Date Type Department Care Team (Late st Contact Info) Description 05/15/2022 11:00 AM EDT Office [place] [facility] [place] [facility] [address] [address] Nicholas Graff MD [address] [address] Urinary frequency (Primary Dx); Rheumatoid arthritis involving both knees, unspecified whether rheumatoid factor present (HCC); Right leg pain; Urinary tract infection without hematuria, site unspecified Social History Tobacco Use Types Packs/Day Years [...] Sign Reading Time Taken Comments Blood Pressure 120/76 05/15/2022 11:05 AM EDT Pulse 121 05/15/2022 11:05 AM EDT Temperature 37.1 ??C (98.7 ??F) 05/15/2022 11:05 AM E DT Respiratory Rate 16 05/15/2022 11:05 AM EDT Oxygen Saturation 95% 05/15/2022 11:05 AM EDT Inhaled Oxygen Concentration - - Weight 59.4 kg (131 lb) 05/15/2022 11:05 AM EDT Height 157.5 cm (5' 2 ) 05/15/2022 11:05 AM EDT Body Mass Index 23.96 05/15/2022 11:05 AM EDT documented in this encounter Functional [...] cannot be sent through Care Everywhere. * Urinary Tract Infection Discharge Instructions, Adult (Ukrainian) documented in this encounter Ordered Prescriptions Prescription Sig Dispense Quantity Refills Last Filled Start Date End Date cefdinir (OMNICEF) 300 mg Oral Capsule Take 1 Capsule by mouth 2 times daily for 10 days. 20 Capsule 05/15/2022 2 documented in this encounter Progress Notes * Nicholas Graff MD - 05/15/2022 11:00 AM EDTAssociated Order(s): Joint Injection Subjective Subjective: Patient ID: Yuliet Trevino is a 51 y.o. female. Chief Complaint Patient presents with ??? Leg Swelling bilateral knee swelling, now right lower calf pain, x2 wk ??? Urinary Frequency x1 day HPI None patient for monitor arthritis presented with bilateral knee pain more on the right than on theleft for the past few days. She also notices pain radiating down to the right calf as well. Negative history she started having some urinary frequency but no other symptoms. Patients past medical, family and social histories were reviewed and updated. There were no changesexcept as noted. Review of Systems Constitutional: Negative for activity change, appetite change, chills, diaphoresis, fatigue and fever. HENT: Negative for congestion, ear discharge, ear pain, postnasal drip, rhinorrhea, sinus pressure,sinus pain, sore throat and voice change. Eyes: Negative for pain and discharge. Respiratory: Negative for cough and wheezing. Cardiovascular: Negative for chest pain. Gastrointestinal: Negative for diarrhea and nausea. Genitourinary: Positive for frequency. Negative for dysuria, flank pain and hematuria. Musculoskeletal: Positive for arthralgias and joint swelling. Negative for back pain, gait problem and myalgias. Skin: Negative for rash. Neurological: Negative for numbness and headaches. Hematological: Negative for adenopathy. Psychiatric/Behavioral: Negative for behavioral problems. The patient is not nervous/anxious. Objective Objective: Vitals: 05/15/22 1105 BP: 120/76 BP Location: Left arm Patient Position: Sitting Pulse: (!) 121 Resp: 16 Temp: 98.7 ??F (37.1 ??C) TempSrc: Oral SpO2: 95% Weight: 131 lb (59.4 kg) Height: 5' 2 (1.575 m) Body mass index is 23.96 kg/m??. Physical Exam Constitutional: General: She is not in acute distress. Appearance: Normal appearance. She is not ill-appearing, toxic-appearing or diaphoretic. HENT: Head: Normocephalic and atraumatic. Nose: Nose normal. No congestion or rhinorrhea. Eyes: General: Right eye: No discharge. Left eye: No discharge. Extraocular Movements: Extraocular movements intact. Conjunctiva/sclera: Conjunctivae normal. Cardiovascular: Rate and Rhythm: Normal rate. Pulmonary: Effort: Pulmonary effort is normal. No respiratory distress. Breath sounds: No stridor. Abdominal: General: Abdomen is flat. There is no distension. Musculoskeletal: General: No deformity. Normal range of motion. Cervical back: Normal range of motion and neck supple. Comments: Both knees bilateral slightly warm to touch and minimal effusion Tenderness over the right calf area Skin: General: Skin is dry. Coloration: Skin is not jaundiced. Findings: No bruising or rash. Neurological: Mental Status: She is alert and oriented to person, place, and time. Motor: No abnormal muscle tone. Coordination: Coordination normal. Psychiatric: Mood and Affect: Mood normal. Behavior: Behavior normal. Joint Injection Date/Time: 05/15/2022 11:50 AM Performed by: Nicholas Graff MD Authorized by: Nicholas Graff MD Indications: joint swelling and pain Body area: knee Joint: right knee Needle size: 22 G Approach: medial Methylprednisolone amount: 40 mg Lidocaine 1% amount: 4 mL Patient tolerance: patient tolerated the procedure well with no immediate complications Assessment and Plan: Yuliet was seen today for leg swelling and urinary frequency. Diagnoses and all orders for this visit: Urinary frequency - URINE CULTURE (NO STAIN); Future Rheumatoid arthritis involving both knees, unspecified whether rheumatoid factor present (HCC) - Joint Injection - [place] ARTHROCENTESIS ASPIR&/INJ MAJOR JT/BURSA W/O US - methylPREDNISolone acetate (DEPO-Medrol) injection 40 mg Right leg pain - D-DIMER; Future Urinary tract infection without hematuria, site unspecified - SEP URINALYSIS POC Other orders - Discontinue: methylPREDNISolone acetate (DEPO-Medrol) injection 40 mg - cefdinir (OMNICEF) 300 mg Oral Capsule; Take 1 Capsule by mouth 2 times daily for 10 days. COURSE & MEDICAL DECISION MAKING Pertinent PMH and subjective/individualized health status, previous hospital admissions and office visits, previous diagnostic test results; as well as evaluating and examining the patient. Counseling the patient on their acute diagnosis and symptomology; reviewing, considering prescribing, or prescribing appropriate medications for the diagnosis and treatment of the acute condition as well as reviewing potential drug interactions and contraindications to newly prescribed medications corresponding with current health status and previously prescribed medications; reviewing discharge instructions respective to continuity of care with their PCP, or as applicable to acutely worsening conditionsthat may require immediate Emergency Department intervention in order to properly formulate an individualized care plan: Education provided regarding the care plan and instructions listed on the After Visit Summary [AVS]for today's visit. Full understanding of the care plan and instructions given on the AVS for today's visit was verbalized. Provided problem specific pt education information pertinent to their diagnosis and presentation today given as both verbal and printed recommendations, information and advice. See the wrap up section of the chart for the specific education information that was provided to and discussed in part as a part of the patient visit. 1. Instructed that if any acute problems worsen or fail to improve that they should contact urgent care or covering physician. If acutely worse, unable to reach our physicians (and is an emergency) go to emergency room. 2. All the problems above are stable except as indicated above. Medications, if ordered, have been reviewed and possible side effects discussed with patient today. Return for a recheck if not improved or worse, with your PCP. PLANS FOLLOWS: Patient was agreeable with this plan of care, and thankful for the care she received today in the urgent care. Full PPE was donned and both contact and airborne precautions were implemented during examination of this patient. This chart was completed using [employer] voice recognition technology and may contain unintended errors. No follow-ups on file. * Karrie Mazariegos MA - 05/15/2022 11:00 AM EDT Patient was given a interarticular joint injection for pain control and comfort in the right knee joint. Dr Graff injected at the maximal point of pain to provide the most comfort and pain control for the patient. The procedure was done with sterile field. Dr Graff was assisted by Betina Mazariegos Carlene, Tier II. She tolerated the procedure well. Belinda advised that she felt better at the procedure was complete. Depo Medrol 40 mg with plain Lidocaine 1% was used. [facility]: [id number] LOT: [id number] EX: 02/27/2024 05/15/2022 MNR documented in this encounter Miscellaneous Notes * Patient Instructions - Nicholas Graff MD - 05/15/2022 11:00 AM EDT Go to ER if you develop any fever or if no response to treatment within 48 hrs documented in this encounter Plan of Treatment Upcoming Encounters Date Type Department Care Team (Late st Contact Info) Description 08/31/2024 8:30 AM EST Appointment [place] [address] [place] [address] 10/25/2024 10:45 AM EST Office Visit [facility] [address] [facility] [address] [place] [address] Jessica Cortes MD [address] [place] [address] [address] [place] [address] 01/25/2025 9:00 AM EDT Appointment [place] [address] [place] [address] 05/09/2025 11:00 AM EDT Appointment [place] [address] [place] [address] 05/09/2025 11:15 AM EDT [address] [place] [address] Susana Garay MD [address] [place] [address] [address] [id number] Scheduled Orders Name Type Priority Associated Diagnoses Orde r Schedule WY ARTHROCENTESIS ASPIR&/INJ MAJOR JT/BURSA W/O US [place] Charge Routine Rheumatoid arthritis involving both knees, unspecified whether rheumatoid factor present (HCC) Ordered: 05/15/2022 documented as of this encounter Goals Goal Patient Goal Type Associated Problems Recent Progress Patient-Stated? 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 RN documented as of this encounter Procedures Procedure Name Priority Date/Time Associated Diagnosis Comments PROCEDURE DOCUMENTATION - ASPIRATION Routine 05/15/2022 11:50 AM EDT Rheumatoid arthritis involving both knees, unspecified whether rheumatoid factor present (HCC) SEP URINALYSIS POC Routine 05/15/2022 11 :11 AM EDT Urinary tract infection without hematuria, site unspecified URINE CULTURE (NO STAIN) Routine 05/15/2022 11:10 AM EDT Urinary frequency documented in this encounter Results * Joint Injection (05/15/2022 11:50 AM EDT) Narrative SEP OFFICE - 05/15/2022 11:50 AM EDT Nicholas Graff MD ? 05/15/2022 12:50 PM Joint Injection Date/Time: 05/15/2022 11:50 AM Performed by: Nicholas Graff MD Authorized by: Nicholas Graff MD Indications: joint swelling and pain Body area: knee Joint: right knee Needle size: 22 G Approach: medial Methylprednisolone amount: 40 mg Lidocaine 1% amount: 4 mL Patient tolerance: patient tolerated the procedure well with no immediate complications us Nicholas rGaff MD PROCEDURE/MINOR SURGICAL ORDERAB LES Final Result SEP OFFICE * (ABNORMAL) D-DIMER (05/15/2022 11:47 AM EDT) D-Dimer 3,340(H) <=500 ng/mL FEU 05/15/2022 1:58 PM EDT [employer] Comment:This is an automated latex enhanced immunoassay [...] AM EDT 05/15/2022 11:47 AM EDT Narrative [employer] - 05/15/2022 1:58 PM EDT For patients between the ages of 50 - 75, an age-adjusted D-Dimer cut-off in combination with non-high clinical probability may be considered for the exclusion of venous thromboembolism (calculation = age x 10). CHARITO Pedraza, et al. [employer]. 2017;166(5):361-363 PADMINI Navas, et al. [employer]. 2015;(163):701-711. Segundo M, et al. VIANCA. 2014;(11):5215-9480. us Nicholas Graff MD HEMATOLOGY ORDERABLES Final Resu lt [employer] [address] [facility], [place] [address] * (ABNORMAL) SEP URINALYSIS POC (05/15/2022 11:11 AM EDT) UA Color POC Yellow Color 05/15/2022 11:13 AM EDT [facility] UA Appear POC Clear Clear 05/15/2022 11:13 AM EDT [facility] UA Gluc POC Negative Negative mg/dL 05/15/2022 11:13 AM EDT [facility] UA Bili POC Negative Negative 05/15/2022 11:13 AM EDT [facility] UA Ketones POC Negative Negative mg/dL 05/15/2022 11:13 AM EDT [facility] UA SG POC 1.025 1.001 - 1.035 no units 05/15/2022 11:13 AM EDT [facility] UA Blood POC Negative Negative 05/15/2022 11:13 AM EDT [facility] UA pH POC 5.5 5.0 - 8.0 pH 05/15/2022 11:13 AM EDT [facility] UA Protein POC Negative Negative mg/dL 05/15/2022 11:13 AM EDT [facility] UA Urobilinogen POC 0.2 0.2, 1.0 05/15/2022 11:13 AM EDT [facility] UA Nitrite POC Negative Negative 05/15/2022 11:13 AM EDT [facility] UA Leuk Est POC Small(A) Negative 11:13 AM EDT [facility] Urine URINE SPECIMEN COLLECTION / Unknown 05/15/2022 11:11 AM EDT 05/15/2022 11:13 AM EDT Nicholas Graff MD POINT OF CARE TEST ORDERABLES Fi nal Result Performing Organization Address City/[facility]/ZIP Co de Phone Number [facility] [address] [place] [address] * URINE CULTURE (NO STAIN) (05/15/2022 11:10 AM EDT) Culture No growth at 30 hours. 05/17/2022 4:36 AM EDT [employer] Urine URINE SPECIMEN COLLECTION, CLEAN CATCH / Unknown 05/15/2022 11:10 AM EDT 05/15/2022 11:10 AM EDT Nicholas Graff MD MICROBIOLOGY - GENERAL ORDERABLE S Final Result [employer] [address] [facility] , [place] [address] documented in this encounter Visit Diagnoses Diagnosis Urinary frequency- Primary Rheumatoid arthritis involving both knees, unspecified whether rheumatoid factor present (HCC) Right leg pain Pain in limb Urinary tract infection without hematuria, site unspecified documented in this encounter Administered Medications Inactive Administered Medications - up to 1 most recent administrations Medication Order MAR Action Action Date Dose Rate Site methylPREDNISolone acetate (DEPO-Medrol) injection 40 mg 40 mg, Intra-articular, ONCE, 1 dose, On Fri05/15/22 at 1200, Dx: 1. Rheumatoid arthritis involving both knees, unspecified whether rheumatoid factor present (HCC)Indications:Rheumatoid arthritis involving both knees, unspecified whether rheumatoid factor present (HCC) Given 05/15/2022 12:00 PM EDT 40 mg Righ t Knee documented in this encounter Orders Medications Ordered That Kevin ht Not Have Been Administered Count Last Ordered Date First Ordered Date methylPREDNISolone acetate ( DEPO-Medrol) injection 40 mg 1 05/15/2022 documented in this encounter Care Teams Evp Strategy Relationship Specialty Start Date End Date Julisa Kerr MD [address] [place] [address] PCP - General 02/22/11 Jessica Cortes MD [address] [facility] [address] [place] [address] Internal Medicine-Rheumatology 04/26/16 documented as of this encounter
--- OUTSIDE RECORDS SUMMARY | 2024-08-22 21:45 | XMS_ITS | Encounter Summary ---
Author Organization [place] [address] Care Team Providers Care Pit Hoist Operator Name Role Phone Julisa Kerr MD Primary Care Provider [phone] Jessica Cortes MD Unavailable [phone] Reason for Visit * Reason Comments Medication Refill Encounter Details Date Type Department Care Team (Late st Contact Info) Description 06/23/2022 Refill [facility] [address] [place] [address] Jessica Cortes MD [address] [place] [id number] Medication Refill Social History Tobacco Use Types [...] A DAY 60 Tablet 1 06/24/2022 08/27/2022 documented in this encounter Miscellaneous Notes * Telephone Encounter - Flash Gamboa LPN - 06/24/2022 9:30 AM EDT Last OV- 04/24/22 F/U- 07/31/22 Labs- 06/06/22 Chart Reviewed: - diclofenac (VOLTAREN) 75 mg Oral Tablet, Delayed Release (E.C.); Take 1 Tablet by mouth 2 times daily. Therapeutic drug monitoring Tuberculosis screening TB gold negative 01/23/22 Labs every 6-8 weeks while on MTX and Arava to monitor for toxicities. Recent labs 6/30/22 unremarkable except for elevated platelets and CRP. documented in this encounter Plan of Treatment Upcoming Encounters Date Type Department Care Team (Late st Contact Info) Description 08/31/2024 8:30 AM EST Appointment [address] [place] [address] 10/25/2024 10:45 AM EST Office Visit [facility] [address] [place] [address] Jessica Cortes MD [address] [place] [address] 01/25/2025 9:00 AM EDT Appointment [address] [place] [address] 05/09/2025 11:00 AM EDT Appointment [address] [place] [address] 05/09/2025 11:15 AM EDT Appointment [address] [place] [address] Susana Garay MD [address] [place] [address] documented as of this encounter Goals Goal [...] 1 Tablet by mouth 2 times daily. 04/24/2022 06/24/2022 documented as of this encounter Care Teams Pit Hoist Operator Relationship Specialty Start Date End Date Utter, Julisa J, MD [address] [place] [phone] PCP - General 02/22/11 Jessica Cortes MD [address] [place] [address] Internal Medicine-Rheumatology 04/26/16 documented as of this encounter
--- OUTSIDE RECORDS SUMMARY | 2024-08-22 21:45 | XMS_ITS | Encounter Summary ---
Author Organization [place] [address] Care Team Providers Care Surfacer Name Role Phone Julisa Kerr MD Primary Care Provider [phone] Jessica Cortes MD Unavailable [phone] Reason for Visit * Reason Onset Date Comments Medication Refill 03/30/2022 Encounter Details Date Type Department Care Team (Late st Contact Info) Description 03/30/2022 Refill [facility] [address] [address] Kasandra Daniel MD [address] [place] [phone] Medication Refill Social History Tobacco Use Types [...] Description 08/31/2024 8:30 AM EST [address]ointment [address] [place] [address] 10/25/2024 10:45 AM EST Office Visit [facility] [address] [facility] [address] [place] [address] Jessica Cortes MD [address] [facility] [address] [place] [address] 01/25/2025 9:00 AM EDT Appointment [address] [place] [address] 05/09/2025 11:00 AM EDT Appointment [facility] [address] [place], [place] [address] 05/09/2025 11:15 AM EDT Appointment [facility] [address] [address] Susana Garay MD [address] [place] [address] [place] [address] documented as of this encounter Goals Goal Patient Goal Type Associated Problems Recent Progress Patient-Stated? Author Maintain a healthy diet, exercise regularly and maintain an ideal body weight General Porsche Ashley RN documented as of this encounter Visit Diagnoses Diagnosis Rheumatoid arthritis involving both knees with positive rheumatoid factor (HCC) documented in this encounter Care Teams Surfacer Relationship Specialty Start Date End Date Julisa Kerr MD [address] [place] [address] PCP - General 02/22/11 Jessica Cortes MD [address] [address] Internal Medicine-Rheumatology 04/26/16 documented as of this encounter
--- OUTSIDE RECORDS SUMMARY | 2024-08-22 21:45 | XMS_ITS | Encounter Summary ---
Author Organization [place] [address] Care Team Providers Care Ripening Room Hand Name Role Phone Julisa Kerr MD Primary Care Provider [phone] Jessica Cortes MD Unavailable [phone] Reason for Referral * Genetic Lab Test (Routine) - Closed Specialty Diagnoses / Procedures Referred By Contac t Referred To Contact Diagnoses Acute deep vein thrombosis (DVT) of popliteal vein of right lower extremity (HCC) Procedures PROTHROMBIN II GENE MUTATION-REF LAB Thierno Toth MD [address] [place] [address] Phone: tel: fax: Referral ID Status Reason Start Date Expiration Date Visits Re quested Visits Authorized [id number] Closed 06/06/2022 06/06/2023 1 1 * Genetic Lab Test (Routine) - Closed Specialty Diagnoses / Procedures Referred By Contac t Referred To Contact Diagnoses Acute deep vein thrombosis (DVT) of popliteal vein of right lower extremity (HCC) Procedures FACTOR V LEIDEN MUTATION-REF LAB Thierno Toth MD [address] [place] [address] Phone: tel: fax: Referral ID Status Reason Start Date Expiration Date Visits Re quested Visits Authorized [id number] Closed 06/06/2022 06/06/2023 1 1 Reason for Visit * Genetic Lab Test (Routine) - Closed Specialty Diagnoses / Procedures Referred By Contciarra t Referred To Contact Diagnoses Acute deep vein thrombosis (DVT) of popliteal vein of right lower extremity (HCC) Procedures FACTOR V LEIDEN MUTATION-REF LAB Thierno Toth MD [address] [place] [address] Phone: tel: fax: Referral ID Status Reason Start Date Expiration Date Visits Re quested Visits Authorized [id number] Closed 06/06/2022 06/06/2023 1 1 Encounter Details Date Type Department Care Team (Latest Contact Info) Description 06/06/2022 1:19 PM EDT - 06/06/2022 11:59 PM EDT Hospital Encounter [facility] [address] [place] [address] Rheumatoid arthritis involving multiple sites with positive rheumatoid factor (HCC); Therapeutic drug monitoring; Acute deep vein thrombosis (DVT) of popliteal [...] ons:Vitamin B 12 deficiency INJECT 1ML INTO THE MUSCLE EVERY MONTH 1 mL 11 02/12/2022 3 diclofenac (VOLTAREN) 75 mg Oral Tablet, Delayed Release (E.C.)Indication s:Rheumatoid arthritis involving multiple sites with positive rheumatoid factor (HCC) Take 1 Tablet by mouth 2 times daily. 60 Tablet 1 04/24/2022 2 Golimumab (SIMPONI) 50 mg/0.5 mL SubQ Pen InjectorIndicati ons:Rheumatoid arthritis involving multiple sites with positive rheumatoid factor (HCC) Inject under the skin 0.5 mL (one syringe) every 30 days. 0.5 mL 5 06/13/2022 1:42 PM EDT 02/07/2022 2 leflunomide (ARAVA) 10 mg Oral TabletIndication s:Rheumatoid arthritis involving multiple sites with positive rheumatoid factor (HCC) Take 1 Tablet by mouth daily. 30 Tablet 1 04/24/2022 2 methylPREDNISolo ne (MEDROL DOSPACK) 4 mg Oral Tablets, Dose PackIndications: Acute pain of left knee See package instructions 21 Tablet 06/06/2022 2 documented as of this encounter Discharge Disposition Disposition Code Departure Means Destination Home or Self Care documented in this encounter Plan of Treatment Upcoming Encounters Date Type Department Care Team (Late st Contact Info) Description 08/31/2024 8:30 AM EST Appointment [address] [place] [address] 10/25/2024 10:45 AM EST Office Visit [facility] [address] [place] [id number] Jessica Cortes MD [address] [place] [address] 01/25/2025 9:00 AM EDT [address]ointment [address] [place] [address] 05/09/2025 11:00 AM EDT Appointment [address] [place] [address] 05/09/2025 11:15 AM EDT Appointment [address] [place] [address] Susana Garay MD [address] [place] [address] [place] [address] documented as of this encounter Goals Goal Patient Goal Type Associated Problems Recent Progress Patient-Stated? 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 RN documented as of this encounter Procedures Procedure Name Priority Date/Time Associated Diagnosis Comments [id number] 1 ABS, IGG/IGM/IGA -REF LAB Routine 06/06/2022 1:20 PM EDT Acute deep vein thrombosis (DVT) of popliteal vein of right lower extremity (HCC) BILL PTTD Routine 06/06/2022 1:20 PM EDT Acute deep vein thrombosis (DVT) of popliteal vein of right lower extremity (HCC) BILL TTR Routine 06/06/2022 1:20 PM EDT Acute deep vein thrombosis (DVT) of popliteal vein of right lower extremity (HCC) BILL DRV Routine 06/06/2022 1:20 PM EDT Acute deep vein thrombosis (DVT) of popliteal vein of right lower extremity (HCC) PROTEIN S AG FREE - REF LAB Routine 06/06/2022 1:20 PM EDT Acute deep vein thrombosis (DVT) of popliteal vein of right lower extremity (HCC) PROTEIN C/S PANEL, FUNCTIONAL-REF LAB Routine 06/06/2022 1:20 PM EDT Acute deep vein thrombosis (DVT) of popliteal vein of right lower extremity (HCC) PROTHROMBIN II GENE MUTATION-REF LAB Routine 06/06/2022 1:20 PM EDT Acute deep vein thrombosis (DVT) of popliteal vein of right lower extremity (HCC) LUPUS ANTICOAGULANT PANEL -REF LAB Routine 06/06/2022 1:20 PM EDT Acute deep vein thrombosis (DVT) of popliteal vein of right lower extremity (HCC) CARDIOLIPIN ANTIBODIES IGG/ IGM-REF LAB Routine 06/06/2022 1:20 PM EDT Acute deep vein thrombosis (DVT) of popliteal vein of right lower extremity (HCC) FACTOR V LEIDEN MUTATION-REF LAB Routine 06/06/2022 1:20 PM EDT Acute deep vein thrombosis (DVT) of popliteal vein of right lower extremity (HCC) SEDIMENTATION RATE AUTOMATED Routine 06/06/2022 1:20 PM EDT Rheumatoid arthritis involving multiple sites with positive rheumatoid factor (HCC) Therapeutic drug monitoring CBC WITH DIFF Routine 06/06/2022 1:20 PM EDT Rheumatoid arthritis involving multiple sites with positive rheumatoid factor (HCC) Therapeutic drug monitoring C-REACTIVE PROTEIN Routine 06/06/2022 1: 20 PM EDT Rheumatoid arthritis involving multiple sites with positive rheumatoid factor (HCC) Therapeutic drug monitoring COMPREHENSIVE METABOLIC PANEL Routine 06/06/2022 1:20 PM EDT Rheumatoid arthritis involving multiple sites with positive rheumatoid factor (HCC) Therapeutic drug monitoring ANTITHROMBIN ACTIVITY -REF LAB Routine 06/06/2022 11:43 AM EDT Rheumatoid arthritis involving multiple sites with positive rheumatoid factor (HCC) Therapeutic drug monitoring Acute deep vein thrombosis (DVT) of popliteal vein of right lower extremity (HCC) documented in this encounter Results * BILL DRV (06/06/2022 1:20 PM EDT) [facility] Billed 06/16/2022 4:39 PM EDT [employer] Comment: Performed By: [facility] [address] [place] [address] Rejoiner: Thierno Cintron MD, PhD Blood VENOUS BLOOD / Unknown Venipuncture / Unknown 06/06/2022 1:20 PM EDT 06/06/2022 1:20 PM EDT us Thierno Toth MD HEMATOLOGY ORDERABLES F inal Result [employer] [address] [place] [phone] * BILL PTTD (06/06/2022 1:20 PM EDT) BILL_PTTD-[facility] Billed 06/16/2022 4:39 PM EDT [employer] Comment: Performed By: [facility] [address] [place] [address] Rejoiner: Thieron Cintron MD, PhD Blood VENOUS BLOOD / Unknown Venipuncture / Unknown 06/06/2022 1:20 PM EDT 06/06/2022 1:20 PM EDT Thierno Toth MD HEMATOLOGY ORDERABLES F inal Result Performing Organization Address [facility] Co de Phone Number [employer] [address] [place] [address] * BILL TTR (06/06/2022 1:20 PM EDT) BILL_TTR-ARUP Billed 06/16/2022 4:39 PM EDT [employer] Comment: Performed By: [facility] [address] [place] [address] Rejoiner: Thierno Cintron MD, PhD Blood VENOUS BLOOD / Unknown Venipuncture / Unknown 06/06/2022 1:20 PM EDT 06/06/2022 1:20 PM EDT Thierno Toth MD HEMATOLOGY ORDERABLES F inal Result Performing Organization Address [facility] de Phone Number [employer] [address] [place] [address] * [id number] 1 ABS, IGG/IGM/IGA -REF LAB (06/06/2022 1:20 PM EDT) [facility] B2 GP 1 IgG <10 <=20 SGU 06/09/2022 11:38 PM EDT [employer] B2 GP 1 IgM 14 <=20 SMU 06/09/2022 11:38 PM EDT [employer] Comment: INTERPRETIVE INFORMATION: [id number] I, IgG and IgM Antibody The persistent [...] B2 GP 1 IgA <10 <=20 MERLY 06/09/2022 11:38 PM EDT [employer] Comment: Performed By: [facility] [address] [place] [address] Rejoiner: Thierno Cintron MD, PhD Blood VENOUS BLOOD / Unknown Venipuncture / Unknown 06/06/2022 1:20 PM EDT 06/06/2022 1:20 PM EDT Thierno Toth MD CHEMISTRY ORDERABLES Fi nal Result [employer] [address] [place], [place] [phone] * (ABNORMAL) CARDIOLIPIN ANTIBODIES IGG/ IGM-REF LAB (06/06/2022 1:20 PM EDT) Cardiolipin IgG Antibody 18(H) <=14 GPL 06/08/2022 5:03 AM EDT [employer] Comment: INTERPRETIVE INFORMATION: Anti-Cardiolipin IgG Ab <=14 [...] criteria phospholipid antibody tests. Cardiolipin IgM Antibody 72(H) <=12 MPL 06/08/2022 5:03 AM EDT [employer] Comment: INTERPRETIVE INFORMATION: Anti-Cardiolipin IgM <=12 MPL: [...] other criteria phospholipid antibody tests. Performed By: [facility] [address] [place] [phone] Rejoiner: Thierno Cintron MD, PhD Blood VENOUS BLOOD / Unknown Venipuncture / Unknown 06/06/2022 1:20 PM EDT 06/06/2022 1:20 PM EDT us Thierno Toth MD IMMUNOLOGY ORDERABLES F inal Result [employer] [address] [place] [phone] * (ABNORMAL) LUPUS ANTICOAGULANT PANEL -REF LAB (06/06/2022 1:20 PM EDT) PT D 14.5 12.0 - 15.5 sec 06/16/2022 4:39 PM EDT [employer] PTT D 50(H) 32 - 48 sec 06/16/2022 4:39 PM EDT [employer] Thrombin Time 17.0 14.7 - 19.5 sec 06/16/2022 4:39 PM EDT [employer] Reptilase Pat Not Applicable <=21.9 sec 06/16/2022 4:39 PM EDT [employer] PTT Hep Neut Not Applicable 32 - 48 sec 06/16/2022 4:39 PM EDT [employer] PTT Christophe Rflx 44 32 - 48 sec 06/16/2022 4:39 PM EDT [employer] Neut Not Applicable Negative 06/16/2022 4:39 PM EDT [employer] DRVVT 46(H) 33 - 44 sec 06/16/2022 4:39 PM EDT [employer] DRV Christophe 42 33 - 44 sec 06/16/2022 4:39 PM EDT [employer] DRVVT Confirm Not Applicable Negative ratio 06/16/2022 4:39 PM EDT [employer] Hexag Phos Rflx Not Applicable Negative 06/16/2022 4:39 PM EDT [employer] Lupus Anticoagulant Interp See Note 06/16/2022 4:39 PM EDT [employer] Comment: Lupus anticoagulant not detected. The PTT and DRVVT are prolonged and correct in 1:1 mixes with pooled normal plasma. ??This pattern can be seen with factor deficiency. ??However, correction in a 1:1 mix can also [...] has not already been performed. Performed by [facility], [address] [place] [id number] [email or web address], Thierno Cintron MD, PHD, Lab. Director Blood VENOUS BLOOD / Unknown Venipuncture / Unknown 06/06/2022 1:20 PM EDT 06/06/2022 1:20 PM EDT Thierno Toth MD CHEMISTRY ORDERABLES Fi nal Result Performing Organization Address [facility] de Phone Number [employer] [address] [place] [address] * (ABNORMAL) PROTEIN S AG FREE - REF LAB (06/06/2022 1:20 PM EDT) Protein S Free, Antigen 151(H) 55 - 123 % 06/09/2022 7:14 PM EDT [employer] Comment: INTERPRETIVE INFORMATION: ??Protein S Ag, FREE Patients on warfarin may have decreased free protein S values. Patients should be off warfarin therapy for two weeks for accurate measurement of free protein S levels. ??Decreased levels of free protein S are also associated with DIC, liver disease, , and inflammatory syndromes. Access complete set of age- and/or gender-specific reference intervals for this test in the [facility] Test Directory ([employer]). Performed by [facility], [address] [place] [id number] [email or web address], Thierno Cintron MD, PHD, Lab. Director Blood VENOUS BLOOD / Unknown Venipuncture / Unknown 06/06/2022 1:20 PM EDT 06/06/2022 1:20 PM EDT Thierno Toth MD CHEMISTRY ORDERABLES Fi nal Result Performing Organization Address [facility] Co de Phone Number [employer] [address] [place] [address] * PROTEIN C/S PANEL, FUNCTIONAL-REF LAB (06/06/2022 1:20 PM EDT) Protein C Funct 148 83 - 168 % 3:24 PM EDT [employer] Comment: INTERPRETIVE INFORMATION: Protein C, Functional Patients on [...] reference intervals for this test in the [facility] ([employer]). Protein S Funct 110 57 - 131 % 2 3:24 PM EDT [employer] Comment: INTERPRETIVE INFORMATION: Protein S, Functional Patients on warfarin may have decreased functional protein S values. Patients should be off warfarin therapy for two weeks for accurate measurement of functional protein S. Artificially ?? increased functional protein S values may be due to heparin therapy or the presence of direct thrombin inhibitors or factor Xa inhibitors. ?? Access complete set of age- and/or gender-specific reference intervals for this test in the [facility] ([facility]). Performed by [facility], [address] [place] [id number] [email or web address], Thierno Cintron MD, PHD, Lab. Director Blood VENOUS BLOOD / Unknown Venipuncture / Unknown 06/06/2022 1:20 PM EDT 06/06/2022 1:20 PM EDT us Thierno Toth MD HEMATOLOGY ORDERABLES F inal Result [employer] [address] [place] [address] * PROTHROMBIN II GENE MUTATION-REF LAB (06/06/2022 1:20 PM EDT) PT PCR Specimen Whole Blood 06/10/20 7:03 PM EDT [employer] Prothrombin (F2) [id number] Mutat Negative 06/10/2022 7:03 PM EDT [employer] Comment: Indication for testing: Assess genetic risk for thrombosis. NEGATIVE: The Factor II, prothrombin [id number] mutation, was not detected. ??Other causes of elevated prothrombin levels and hereditary forms of venous thrombosis have not been excluded. Recommendations: ??If clinically indicated, testing for other inherited or [...] M.D., Ph.D. BACKGROUND INFORMATION: Prothrombin (F2) c.*97G>A ?(B30352J) Pathogenic Variant CHARACTERISTICS: The Factor II, c.*97G>A (K27153T) pathogenic variant is a common genetic risk [...] CAUSE: Homozygosity or heterozygosity for F2 c.*97G>A (A84850I). PATHOGENIC VARIANT TESTED: F2 c.*97G>A (G54985E). CLINICAL SENSITIVITY FOR VENOUS THROMBOSIS: Approximately 10 percent. METHODOLOGY: Polymerase chain reaction and fluorescence monitoring. ANALYTICAL SENSITIVITY AND SPECIFICITY: 99 percent. LIMITATIONS: Diagnostic errors can occur due to rare sequence variations. F2 gene variants, other than c.*97G>A (B90302V), will not be detected. This test was developed and its performance characteristics determined by [facility]. It has not been cleared or approved by the [place] Food and Drug Administration. This test was performed in a CLIA certified laboratory and is intended for clinical purposes. Counseling and informed consent are recommended for genetic testing. Consent forms are available online. Performed by [facility], [address] [place] [id number] [email or web address], Thierno Cintron MD, PHD, Lab. Director Blood VENOUS BLOOD / Unknown Venipuncture / Unknown 06/06/2022 1:20 PM EDT 06/06/2022 1:20 PM EDT Thierno Toth MD HEMATOLOGY ORDERABLES F inal Result [employer] [address] [place] [address] * FACTOR V LEIDEN MUTATION-REF LAB (06/06/2022 1:20 PM EDT) FACV Specimen Whole Blood 06/10/2022 9:45 AM EDT [employer] Factor V Leiden (F5) R506Q Mut Negative 06/10/2022 9:45 AM EDT [employer] Comment: Indication for testing: Assess genetic risk for thrombosis. NEGATIVE: The factor V Leiden variant, c.1601G>A; p.Wwe851Qhi, was not detected. This does not exclude [...] function in the F5 gene variant c.1601G>A (p.Jhg189Tlf). Legacy nomenclature: R506Q (1691G>A) CLINICAL SENSITIVITY: 20-50 percent of individuals with an isolated VTE have the FVL variant. METHODOLOGY: Polymerase chain reaction and fluorescence monitoring. ANALYTICAL SENSITIVITY AND SPECIFICITY: 99 percent. LIMITATIONS: Diagnostic errors can occur due to rare sequence variations. F5 gene mutations, other than p.Tqa200Chx, will not be detected. This test was developed and its performance characteristics determined by [facility]. It has not been cleared or approved by the [place] Food and Drug Administration. This test was performed in a CLIA certified laboratory and is intended for clinical purposes. Counseling and informed consent are recommended for genetic testing. Consent forms are available online. Performed by [facility], [address] [place], [place] [id number] [email or web address], Thierno Cintron MD, PHD, Lab. Director Blood VENOUS BLOOD / Unknown Venipuncture / Unknown 06/06/2022 1:20 PM EDT 06/06/2022 1:20 PM EDT us Thierno Toth MD HEMATOLOGY ORDERABLES F inal Result [employer] [address] [place] [address] * SEDIMENTATION RATE AUTOMATED (06/06/2022 1:20 PM EDT) [facility] Sed Rate 27 0 - 30 mm/hr 06/06/2022 8:13 PM EDT [facility] Blood Venipuncture / Unknown 06/06/2022 1:20 PM EDT 06/06/2022 1:20 PM EDT us Jessica Cortes MD HEMATOLOGY ORDERABLES Fin al Result Performing Organization Address City/[facility]/ZIP Co de Phone Number [facility] [address] [place] [address] * (ABNORMAL) C-REACTIVE PROTEIN (06/06/2022 1:20 PM EDT) CRP 54.22(H) <=5.00 mg/L 06/06/2022 8:04 PM EDT [facility] Blood Venipuncture / Unknown 06/06/2022 1:20 PM EDT 06/06/2022 1:20 PM EDT us Jessica Cortes MD CHEMISTRY ORDERABLES Siobhan l Result Performing Organization Address [facility] Co de Phone Number [facility] [address] [facility], [place] [address] * (ABNORMAL) COMPREHENSIVE METABOLIC PANEL (06/06/2022 1:20 PM EDT) Sodium 137 136 - 145 mmol/L 06/06/2022 8:04 PM EDT [facility] Potassium 3.7 3.5 - 5.0 mmol/L 06/06/2022 8:04 PM EDT [facility] Chloride 101 98 - 107 mmol/L 06/06/2022 8:04 PM EDT [facility] Total CO2 23 22 - 29 mmol/L 06/06/2022 8:04 PM EDT [facility] Anion Gap 13 7 - 16 mmol/L 06/06/2022 8:04 PM EDT [facility] Calcium 9.1 8.6 - 10.4 mg/dL 06/06/2022 8:04 PM EDT [facility] Glucose Lvl 91 74 - 100 mg/dL 06/06/2022 8:04 PM EDT [facility] BUN 11 6 - 20 mg/dL 06/06/2022 8:04 PM EDT [facility] Creatinine 0.70 0.51 - 1.30 mg/dL 06/06/2022 8:04 PM EDT [facility] Albumin 4.3 3.5 - 5.2 gm/dL 06/06/2022 8:04 PM EDT [facility] Total Protein 7.3 6.4 - 8.3 gm/dL 06/06/2022 8:04 PM EDT [facility] Bili Total 0.3 0.1 - 1.3 mg/dL 06/06/2022 8:04 PM EDT [facility] ALT 18 <=41 U/L 06/06/2022 8:04 PM EDT [facility] AST 19 <=40 U/L 06/06/2022 8:04 PM EDT [facility] Alk Phos 124(H) 36 - 123 U/L 06/06/2022 8:04 PM EDT [facility], [facility] eGFR (CKD-EPIcr 2020) 104 >=60 mL/min/1.7 3 m2 06/06/2022 8:04 PM EDT [facility] Comment:Estimated GFR was ca lculated using the CKD-EPIcr (2020) equation refit without race. The equation is recommended by the National Kidney Foundation - [place] [employer] Nephrology Task Force. Blood Venipuncture / Unknown 06/06/2022 1:20 PM EDT 06/06/2022 1:20 PM EDT us Jessica Cortes MD CHEMISTRY ORDERABLES Siobhan l Result [facility], [address] [place] [id number] [facility] [address] [place] [address] * (ABNORMAL) CBC WITH DIFF (06/06/2022 1:20 PM EDT) WBC 7.8 3.7 - 10.3 x10(3)/mcL 06/06/2022 8:13 PM EDT [facility] RBC 4.88 3.90 - 5.20 x10(6)/mcL 06/06/2022 8:13 PM EDT [facility] Hgb 13.2 11.2 - 15.7 g/dL 06/06/2022 8:13 PM EDT [facility] Hct 43.2 34.0 - 45.0 % 06/06/2022 8:13 PM EDT [facility] MCV 88.5 80.0 - 100.0 fL 06/06/2022 8:13 PM EDT [facility] MCH 27.0 26.0 - 34.0 pg 06/06/2022 8:13 PM EDT [facility] MCHC 30.6(L) 30.7 - 35.5 g/dL 06/06/2022 8:13 PM EDT [facility] RDW 14.3 <=14.9 % 06/06/2022 8:13 PM EDT [facility] Platelet 386(H) 155 - 369 x10(3)/mcL 06/06/2022 8:13 PM EDT [facility] MPV 11.2 8.8 - 12.5 fL 06/06/2022 8:13 PM EDT [facility] Neut Percent 52.6 % 06/06/2022 8:13 PM EDT [facility] Comment:Neutrophils equals s egs plus bands Imm Gran% 0.9 % 06/06/2022 8:13 PM EDT [facility] Comment:Automated count of m etamyelocytes, myelocytes and promyelocytes. Lymph Percent 26.0 % 06/06/2022 8:13 PM EDT [facility] Concho Percent 14.6 % 06/06/2022 8:13 PM EDT [facility] Eos Percent 4.9 % 06/06/2022 8:13 PM EDT [facility] Baso Percent 1.0 % 06/06/2022 8:13 PM EDT [facility] Neut # 4.1 1.6 - 6.1 x10(3)/mcL 06/06/2022 8:13 PM EDT [facility] Comment:Neutrophils equals s egs plus bands IMMGRAN# 0.1 0.0 - 0.1 x10(3)/mcL 06/06/2022 8:13 PM EDT [facility] Comment:Automated count of m etamyelocytes, myelocytes and promyelocytes. An absolute IG <0.1 is reported as 0.0. Lymph # 2.0 1.2 - 3.9 x10(3)/[facility] 06/06/2022 8:13 PM EDT [facility], [facility] [employer] # 1.1(H) 0.3 - 0.9 x10(3)/[facility] 06/06/2022 8:13 PM EDT [facility] [employer], [facility] Eos# 0.4 0.0 - 0.5 x10(3)/[facility] 06/06/2022 8:13 PM EDT [facility] [employer], [facility] Baso # 0.1 0.0 - 0.1 x10(3)/[facility] 06/06/2022 8:13 PM EDT [facility] [employer], [facility] Blood Venipuncture / Unknown 06/06/2022 1:20 PM EDT 06/06/2022 1:20 PM EDT us Jessica Cortes MD HEMATOLOGY ORDERABLES Fin al Result [facility] [address] [place] [address] * ANTITHROMBIN ACTIVITY -REF LAB (06/06/2022 11:43 AM EDT) [facility] Antithrombin Enzymatic (Activi 122 76 - 128 % 06/10/2022 10:37 AM EDT [email or web address] Comment: REFERENCE INTERVAL: Antithrombin, Enzymatic (Activity) Access complete set of age- and/or gender-specific reference intervals for this test in the [facility] ([employer]). Performed by [facility], [address] [place] [phone] [email or web address], Thierno Cintron MD, PHD, Lab. Director Blood VENOUS BLOOD / Unknown Venipuncture / Unknown 06/06/2022 11:43 AM EDT 06/06/2022 7:12 PM EDT us Thierno Toth MD CHEMISTRY ORDERABLES Fi nal Result [employer] [address] [place], [place] [phone] documented in this encounter Visit Diagnoses Diagnosis Rheumatoid arthritis involving multiple sites with positive rheumatoid factor (HCC) Therapeutic drug monitoring Encounter for therapeutic drug monitoring Acute deep vein thrombosis (DVT) of popliteal vein of right lower extremity (HCC) documented in this encounter Care Teams Ripening Room Hand Relationship Specialty Start Date End Date Julisa Kerr MD [address] [place] [address] PCP - General 02/22/11 Jessica Cortes MD [address] [place] [address] Internal Medicine-Rheumatology 04/26/16 documented as of this encounter
--- OUTSIDE RECORDS SUMMARY | 2024-08-22 21:45 | XMS_ITS | Encounter Summary ---
Author Organization [place] [address] Care Team Providers Care Waste Oil Pumper Name Role Phone Julisa Kerr MD Primary Care Provider [phone] Jessica Cortes MD Unavailable [phone] Reason for Referral * Genetic Lab Test (Routine) - Closed Specialty Diagnoses / Procedures Referred By Contac t Referred To Contact Diagnoses Acute deep vein thrombosis (DVT) of popliteal vein of right lower extremity (HCC) Procedures PROTHROMBIN II GENE MUTATION-REF LAB Thierno Toth MD [address] [place] [address] Phone: tel: fax: Referral ID Status Reason Start Date Expiration Date Visits Re quested Visits Authorized [id number] Closed 06/06/2022 06/06/2023 1 1 * Genetic Lab Test (Routine) - Closed Specialty Diagnoses / Procedures Referred By Contac t Referred To Contact Diagnoses Acute deep vein thrombosis (DVT) of popliteal vein of right lower extremity (HCC) Procedures FACTOR V LEIDEN MUTATION-REF LAB Thierno Toth MD [address] [place] [address] Phone: tel: fax: Referral ID Status Reason Start Date Expiration Date Visits Re quested Visits Authorized [id number] Closed 06/06/2022 06/06/2023 1 1 Reason for Visit * Reason Comments Knee Pain Encounter Details Date Type Department Care Team (Late st Contact Info) Description 06/06/2022 10:45 AM EDT Office Visit [facility] [address] [facility] [place] [id number] Thierno Toth MD 100 [facility] [place] [address] Dizziness (Primary Dx); Acute pain of left knee; Acute deep vein thrombosis (DVT) of popliteal vein of right lower extremity (HCC) Social History Tobacco Use Types Packs/Day [...] Sign Reading Time Taken Comments Blood Pressure 124/72 06/06/2022 11:01 AM EDT Pulse - - Temperature 36.6 ??C (97.8 ??F) 06/06/2022 11:01 AM E DT Respiratory Rate - - Oxygen Saturation - - Inhaled Oxygen Concentration - - Weight 59 kg (130 lb) 06/06/2022 11:01 AM EDT Height 157.5 cm (5' 2 ) 06/06/2022 11:01 AM EDT Body Mass Index 23.78 06/06/2022 11:01 AM EDT documented in this encounter Functional [...] Refills Last Filled Start Date End Date methylPREDNISolon e (MEDROL DOSPACK) 4 mg Oral Tablets, Dose PackIndications:A cute pain of left knee See package instructions 21 Tablet 06/06/2022 2 documented in this encounter Progress Notes * Thierno Toth MD - 06/06/2022 10:45 AM EDT Vitals: 06/06/22 1101 BP: 124/72 Temp: 97.8 ??F (36.6 ??C) Weight: 130 lb (59 kg) Height: 5' 2 (1.575 m) SUBJECTIVE: Chief Complaint Patient presents with ??? Knee Pain Left knee pain worsening since yesterday. Pt reports working yesterday which she had not done in a while. Pt would like to discuss Eliquis, swelling in right knee with blood clot on May 15. Pt c/o fever blister, valtrex did not help. Pt c/o dizzy spells, wanting a1c checked. Review of Systems Constitutional: Negative for fever. 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 documented in this encounter Plan of Treatment Upcoming Encounters Date Type Department Care Team (Late st Contact Info) Description 08/31/2024 8:30 AM EST Appointment [address] [place] [address] 10/25/2024 10:45 AM EST Office Visit [facility] [address] [place] [address] Jessica Cortes MD [address] [place] [address] 01/25/2025 9:00 AM EDT Appointment [address] [place] [address] 05/09/2025 11:00 AM EDT Appointment [address] [place] [address] 05/09/2025 11:15 AM EDT Appointment [address] [place] [address] Susana Garay MD [address] [place] [address] documented as of this encounter Goals Goal Patient Goal Type Associated Problems Recent Progress Patient-Stated? 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, RN documented as of this encounter Procedures Procedure Name Priority Date/Time Associated Diagnosis Comments POCT GLYCATED HEMOGLOBIN, TOTAL Routine 06/06/2022 11:13 AM EDT Dizziness documented in this encounter Results * [id number] 1 ABS, IGG/IGM/IGA -REF LAB (06/06/2022 1:20 PM EDT) B2 GP 1 IgG <10 <=20 SGU 06/09/2022 11:38 PM EDT [facility] B2 GP 1 IgM 14 <=20 SMU 06/09/2022 11:38 PM EDT [facility] Comment: INTERPRETIVE INFORMATION: P2Thlanppfwlql I, IgG and IgM Antibody The persistent [...] <10 <=20 MERLY 06/09/2022 11:38 PM EDT [facility] Comment: Performed By: [facility] [address] [place] [address] Chiller Tender: Thierno Cintron MD, PhD Blood VENOUS BLOOD / Unknown Venipuncture / Unknown 06/06/2022 1:20 PM EDT 06/06/2022 1:20 PM EDT us Thierno Toth MD CHEMISTRY ORDERABLES Fi nal Result [facility] [address] [place], [place] [id number] * (ABNORMAL) CARDIOLIPIN ANTIBODIES IGG/ IGM-REF LAB (06/06/2022 1:20 PM EDT) Pathologist [facility] [place] Cardiolipin IgG Antibody 18(H) <=14 GPL 06/08/2022 5:03 AM EDT [facility] Comment: INTERPRETIVE INFORMATION: Anti-Cardiolipin IgG Ab <=14 [...] 72(H) <=12 MPL 06/08/2022 5:03 AM EDT [facility] Comment: INTERPRETIVE INFORMATION: Anti-Cardiolipin IgM <=12 MPL: [...] other criteria phospholipid antibody tests. Performed By: [facility] [address] [place] [address] Chiller Tender: Thierno Cintron MD, PhD Blood VENOUS BLOOD / Unknown Venipuncture / Unknown 06/06/2022 1:20 PM EDT 06/06/2022 1:20 PM EDT us Thierno Toth MD IMMUNOLOGY ORDERABLES F inal Result [facility] [address] [place] [address] * (ABNORMAL) LUPUS ANTICOAGULANT PANEL -REF LAB (06/06/2022 1:20 PM EDT) PT D 14.5 12.0 - 15.5 sec 06/16/2022 4:39 PM EDT [facility] PTT D 50(H) 32 - 48 sec 06/16/2022 4:39 PM EDT [facility] Thrombin Time 17.0 14.7 - 19.5 sec 06/16/2022 4:39 PM EDT [facility] Reptilase Pat Not Applicable <=21.9 sec 06/16/2022 4:39 PM EDT [facility] PTT Hep Neut Not Applicable 32 - 48 sec 06/16/2022 4:39 PM EDT [facility] PTT Christophe Rflx 44 32 - 48 sec 06/16/2022 4:39 PM EDT [facility] Plt Neut Not Applicable Negative 06/16/2022 4:39 PM EDT [facility] DRVVT 46(H) 33 - 44 sec 06/16/2022 4:39 PM EDT [facility] DRV Christophe 42 33 - 44 sec 06/16/2022 4:39 PM EDT [facility] DRVVT Confirm Not Applicable Negative ratio 06/16/2022 4:39 PM EDT [facility] Hexag Phos Rflx Not Applicable Negative 06/16/2022 4:39 PM EDT [facility] Lupus Anticoagulant Interp See Note 06/16/2022 4:39 PM EDT [facility] Comment: Lupus anticoagulant not detected. The PTT [...] has not already been performed. Performed by [facility], [address] [place] [id number] [facility], Thierno Cintron MD, PHD, Lab. Director Blood VENOUS BLOOD / Unknown Venipuncture / Unknown 06/06/2022 1:20 PM EDT 06/06/2022 1:20 PM EDT us Thierno Toth MD CHEMISTRY ORDERABLES Fi nal Result [facility] [address] [place], [place] [id number] * (ABNORMAL) PROTEIN S AG FREE - REF LAB (06/06/2022 1:20 PM EDT) Protein S Free, Antigen 151(H) 55 - 123 % 06/09/2022 7:14 PM EDT [facility] Comment: INTERPRETIVE INFORMATION: ??Protein S Ag, FREE [...] reference intervals for this test in the [facility] ([facility]). Performed by [facility], [address] [place], [place] [id number] [facility], Thierno Cintron MD, PHD, Lab. Director Blood VENOUS BLOOD / Unknown Venipuncture / Unknown 06/06/2022 1:20 PM EDT 06/06/2022 1:20 PM EDT Thierno Toth MD CHEMISTRY ORDERABLES Fi nal Result [facility] [address] [place] [address] * PROTEIN C/S PANEL, FUNCTIONAL-REF LAB (06/06/2022 1:20 PM EDT) [facility] Protein C Funct 148 83 - 168 % 2 3:24 PM EDT [facility] Comment: INTERPRETIVE INFORMATION: Protein C, Functional Patients [...] reference intervals for this test in the [facility] ([employer]). Protein S Funct 110 57 - 131 % 2 3:24 PM EDT [facility] Comment: INTERPRETIVE INFORMATION: Protein S, Functional Patients [...] reference intervals for this test in the [facility] ([employer]). Performed by [facility], [address] [place] [address] www.[employer], Thierno Cintron MD, PHD, Lab. Director Blood VENOUS BLOOD / Unknown Venipuncture / Unknown 06/06/2022 1:20 PM EDT 06/06/2022 1:20 PM EDT us Thierno Toth MD HEMATOLOGY ORDERABLES F inal Result [facility] [address] [place] [address] * PROTHROMBIN II GENE MUTATION-REF LAB (06/06/2022 1:20 PM EDT) PT PCR Specimen Whole Blood 06/10/20 7:03 PM EDT [facility] Prothrombin (F2) [id number] Mutat Negative 06/10/2022 7:03 PM EDT [facility] Comment: Indication for testing: Assess genetic risk for thrombosis. NEGATIVE: The Factor II, prothrombin T00289U mutation, was not detected. ??Other causes of [...] M.D., Ph.D. BACKGROUND INFORMATION: Prothrombin (F2) c.*97G>A ?(A15556P) Pathogenic Variant CHARACTERISTICS: The Factor II, c.*97G>A (T32821T) pathogenic variant is a common genetic risk [...] CAUSE: Homozygosity or heterozygosity for F2 c.*97G>A (P20504R). PATHOGENIC VARIANT TESTED: F2 c.*97G>A (D06982Y). CLINICAL SENSITIVITY FOR VENOUS THROMBOSIS: Approximately 10 percent. METHODOLOGY: Polymerase chain reaction and fluorescence monitoring. ANALYTICAL SENSITIVITY AND SPECIFICITY: 99 percent. LIMITATIONS: Diagnostic errors can occur due to rare sequence variations. F2 gene variants, other than c.*97G>A (F35735V), will not be detected. This test was developed and its performance characteristics determined by [facility]. It has not been cleared or approved by the [place] Food and Drug Administration. This test was performed in a CLIA certified laboratory and is intended for clinical purposes. Counseling and informed consent are recommended for genetic testing. Consent forms are available online. Performed by [facility], [address] [place], [place] [id number] www[facility], Thierno Cintron MD, PHD, Lab. Director Blood VENOUS BLOOD / Unknown Venipuncture / Unknown 06/06/2022 1:20 PM EDT 06/06/2022 1:20 PM EDT us Thierno Toth MD HEMATOLOGY ORDERABLES F inal Result [facility] [address] [place], [place] [id number] * FACTOR V LEIDEN MUTATION-REF LAB (06/06/2022 1:20 PM EDT) Pathologist [facility] [place] FACV Specimen Whole Blood 06/10/2022 9:45 AM EDT [facility] Factor V Leiden (F5) R506Q Mut Negative 06/10/2022 9:45 AM EDT [facility] Comment: Indication for testing: Assess genetic risk for thrombosis. NEGATIVE: The factor V Leiden variant, c.1601G>A; p.Mwb279Uqp, was not detected. This does not exclude [...] function in the F5 gene variant c.1601G>A (p.Wgd148Dyx). Legacy nomenclature: R506Q (1691G>A) CLINICAL SENSITIVITY: 20-50 percent of individuals with an isolated VTE have the FVL variant. METHODOLOGY: Polymerase chain reaction and fluorescence monitoring. ANALYTICAL SENSITIVITY AND SPECIFICITY: 99 percent. LIMITATIONS: Diagnostic errors can occur due to rare sequence variations. F5 gene mutations, other than p.Sdu873Cti, will not be detected. This test was developed and its performance characteristics determined by [facility]. It has not been cleared or approved by the US Food and Drug Administration. This test was performed in a CLIA certified laboratory and is intended for clinical purposes. Counseling and informed consent are recommended for genetic testing. Consent forms are available online. Performed by [facility], [address] [place] [id number] www[employer], Thierno Cintron MD, PHD, Lab. Director Blood VENOUS BLOOD / Unknown Venipuncture / Unknown 06/06/2022 1:20 PM EDT 06/06/2022 1:20 PM EDT Thierno Toth MD HEMATOLOGY ORDERABLES F inal Result [facility] [address] [place] [address] * POCT GLYCATED HEMOGLOBIN, TOTAL (06/06/2022 11:13 AM EDT) Hemoglobin A1C 5.6 4 - 6 % SEP OFFICE Lot Number SEP OFFICE Expiration Date SEP OFFICE SeriAl # SEP OFFICE 06/06/2022 11:1 3 AM EDT Thierno Toth MD POINT OF CARE TEST ORDE NELY Final Result SEP OFFICE documented in this encounter Visit Diagnoses Diagnosis Dizziness- Primary Dizziness and giddiness Acute pain of left knee Acute deep vein thrombosis (DVT) of popliteal vein of right lower extremity (HCC) documented in this encounter Discontinued Medications Medication Sig Discontinue Reason Start Date End Da te predniSONE (DELTASONE) 10 mg Oral TabletIndications:Rheu matoid arthritis 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 6 pills x 3days, 5 pills x 3 days, 4 pills x 3 days, 3 pills x 3 days, 2 pills x 3 days, 1 pills x 3 days DELETE-Therapy completed 04/02/2022 06/06/2022 documented as of this encounter Orders Lab Orders Without Results Count Last Ordered D ate First Ordered Date ANTITHROMBIN ACTIVITY 1 06/06/2022 documented in this encounter Care Teams Waste Oil Pumper Relationship Specialty Start Date End Date Julisa Kerr MD [address] [place] [address] PCP - General 02/22/11 Jessica Cortes MD [address] [facility] [address] [place] [address] Internal Medicine-Rheumatology 04/26/16 documented as of this encounter
--- OUTSIDE RECORDS SUMMARY | 2024-08-22 21:45 | XMS_ITS | Encounter Summary ---
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 6 pills x 3days, 5 pills x 3 days, 4 pills x 3 days, 3 pills x 3 days, 2 pills x 3 days, 1 pills x 3 days 66 Tablet 04/02/2022 06/06/2022 documented in this encounter Progress Notes * Jhon Peña APRN - 04/02/2022 11:30 AM EDT Patient presented today for routine care follow-up through a video visit. Patient has reviewed the terms and conditions of service as part of the registration for today's visit. A video visit does not replace a yxdw-sf-jssx exam and further services may be necessary. We are conducting her video visit in a private space and this video visit is being conducted in accordance with state telehealth/video visit regulations. HPI: Presents virtually with inflammation of hands, knees, legs, feet that has worsened over the last several days. History of rheumatoid arthritis for which she follows with rheum. Review of Systems Musculoskeletal: Positive for arthralgias and joint swelling. Exam: Constitutional: NAD, appropriately groomed. Appears comfortable. 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 6 pills x 3days, 5 pills x 3 days, 4 pills x 3 days, 3 pills x 3 days, 2 pills x 3 days, 1 pills x 3 days Dispense: 66 Tablet; Refill: 0 documented in this encounter Plan of Treatment Upcoming Encounters Date Type Department Care Team (Late st Contact Info) Description 08/31/2024 8:30 AM EST Appointment [place] [address] [place] [address] 10/25/2024 10:45 AM EST Office Visit [facility] [address] [place] [address] Jessica Cortes MD [address] [facility] [address] [place] [address] 01/25/2025 9:00 AM EDT Appointment [place] [address] [place] [address] 05/09/2025 11:00 AM EDT Appointment [place] [address] [address] [place], [place] [id number] 05/09/2025 11:15 AM EDT Appointment [facility] [place] [address] Susana Garay MD [address] [place] [address] [address] [place] [place] [id number] documented as of this encounter Goals Goal [...] 10 mg Oral TabletIndications:Rheuma toid arthritis 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 6 pills x 3days, 5 pills x 3 days, 4 pills x 3 days, 3 pills x 3 days, 2 pills x 3 days, 1 pills x 3 days Reorder 02/10/2022 04/02/2022 documented as of this encounter Care Teams Auto Claims Adjuster Relationship Specialty Start Date End Date Julisa Kerr MD [address] [place], [place] [id number] PCP - General 02/22/11 Jessica Cortes MD [address] [place] [id number] Internal Medicine-Rheumatology 04/26/16 documented as of this encounter
--- OUTSIDE RECORDS SUMMARY | 2024-08-22 21:45 | XMS_ITS | Encounter Summary ---
Author Organization [place] [address] Care Team Providers Care Public Health Nurse Name Role Phone Julisa Kerr MD Primary Care Provider [phone] Jessica Cortes MD Unavailable [phone] Reason for Visit * Reason Comments Pharmacy Rheumatology Management Simp[facility] Encounter Details Date Type Department Care Team (Latest Contact Info) Description 06/10/2022 Specialty Pharmacy [facility] [address] [phone] Rhina Rubi CPhT Pharmacy Rheumatology Management (Simp[facility]) [...] Progress Notes * Rhina Rubi CPhT - 06/10/2022 1:12 PM EDT Specialty Pharmacy Refill Coordination Note Yuliet Trevino is a 51 y.o. female contacted today regarding refills of her Simponi. No answer, left voicemail to call [phone], option 4. * Jacey Miller CPhT - 06/10/2022 1:12 PM EDT Specialty Pharmacy Refill Coordination Note Yuliet Trevino is a 51 y.o. female contacted today regarding refills of her Simponi. Medication to be delivered by [facility] on 06/14. Spoke with patient. Pt mentioned medication wearing off sooner than previously. She has an appt in Nov with provider and will discuss at that time. * Che Wells RP - 06/10/2022 1:12 PM EDT [facility] - Care Plan and Refill Review Refill questions and refill history verified. Last assessment 02/19/22. No reassessment needed at this time. Che Wells [facility] Specialty Pharmacist documented in this encounter Plan of Treatment Upcoming Encounters Date Type Department Care Team (Late st Contact Info) Description 08/31/2024 8:30 AM EST Appointment [place] [address] [place] [address] 10/25/2024 10:45 AM EST Office Visit [facility] [address] [place] [address] Jessica Cortes MD [address] [place] [address] 01/25/2025 9:00 AM EDT [address]ointment [address] [place] [address] 05/09/2025 11:00 AM EDT [address]ointment [address] [place] [address] 05/09/2025 11:15 AM EDT [address]ointment [address] [place] [address] Susana Garay MD [address] [place] [address] [place] [address] documented as of this encounter Goals Goal Patient Goal Type Associated Problems Recent Progress Patient-Stated? 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 RN documented as of this encounter Visit Diagnoses Not on filedocumented in this encounter Care Teams Public Health Nurse Relationship Specialty Start Date End Date Julisa Kerr MD [address] [place] [id number] PCP - General 02/22/11 Jessica Cortes MD [address] [place] [address] Internal Medicine-Rheumatology 04/26/16 documented as of this encounter
--- OUTSIDE RECORDS SUMMARY | 2024-08-22 21:45 | XMS_ITS | Encounter Summary ---
Author Organization [place] [address] Care Team Providers Care Web Press Operator Helper Offset Name Role Phone Julisa Kerr MD Primary Care Provider Jessica Cortes MD Unavailable [phone] Reason for Visit * Reason Onset Date Comments Results 06/11/2022 Encounter Details Date Type Department Care Team (Late st Contact Info) Description 06/11/2022 Telephone [facility] [address] [place] [address] Julisa Kerr MD [address] [place] [address] Results Social History Tobacco Use Types Packs/Day [...] encounter Miscellaneous Notes * Telephone Encounter - Luciano Kenney RMA - 06/11/2022 2:34 PM EDT Results updated. * Telephone Encounter - Edwardo Lino, Clerical Staff - 06/11/2022 2:24 PM EDT Images from the original note were not included. Patient Calling for Results Patient called for results on Lab Which Provider ordered the test? bharat Date of test: 06/06 Advised patient of: abnormal result. Patient Instructions/ Questions: pt informed of hematology number to call. Other: Please put in the patient results note that pt is aware of the following results Thierno Toth MD 06/11/2022 ??8:24 AM EDT Multiple elevations concerning for underlying genetic causes that may continue to make the patient high risk for further blood clots, advise referral to [facility] hemat[facility] for further discussion on indefinite treatment with anticoagulation. documented in this encounter Plan of Treatment Upcoming Encounters Date Type Department Care Team (Late st Contact Info) Description 08/31/2024 8:30 AM EST [address]ointment [address] [place] [address] 10/25/2024 10:45 AM EST Office Visit [facility] [address] [place] [address] Jessica Cortes MD [address] [facility] [address] [place], [place] [id number] 01/25/2025 9:00 AM EDT Appointment [address] [place] [address] 05/09/2025 11:00 AM EDT Appointment [address] [address] 05/09/2025 11:15 AM EDT Appointment [address] [place] [address] Susana Garay MD [address] [place] [address] documented as of this encounter Goals Goal Patient Goal Type Associated Problems Recent Progress Patient-Stated? 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 RN documented as of this encounter Visit Diagnoses Not on filedocumented in this encounter Care Teams Web Press Operator Helper Offset Relationship Specialty Start Date End Date Julisa Kerr MD [address] [place] [address] PCP - General 02/22/11 Jessica Cortes MD [address] [facility] [address] [place] [address] Internal Medicine-Rheumatology 04/26/16 documented as of this encounter
--- OUTSIDE RECORDS SUMMARY | 2024-08-22 21:45 | XMS_ITS | Encounter Summary ---
Author Organization [facility] [place] [address] Care Team Providers Care Stock Chaser Name Role Phone Julisa Kerr MD Primary Care Provider [phone] Jessica Cortes MD Unavailable [phone] Reason for Visit * Reason Comments Follow-up [facility] Rheumatoid Arthritis Raynaud's Syndrome Osteopenia Neck Pain Fatigue Knee Pain Bilateral swelling i n the back of knee. Encounter Details Date Type Department Care Team (Latest Contact Info) Description 04/24/2022 9:45 AM EDT Office Visit [facility] [address] [place] [address] Jessica Cortes MD [address] [id number] Rheumatoid arthritis involving multiple sites with positive rheumatoid factor (HCC) (Primary Dx); Raynaud's phenomenon without gangrene; Positive BRET (antinuclear antibody); Sicca syndrome (HCC); Neck pain; Osteopenia of multiple sites; Postmenopausal state; Immunocompromised patient (HCC); Trochanteric bursitis of left hip; Tuberculosis screening Social History Tobacco Use Types [...] Sign Reading Time Taken Comments Blood Pressure 124/76 04/24/2022 9:56 AM EDT Pulse 101 04/24/2022 9:56 AM EDT Temperature - - Respiratory Rate 17 04/24/2022 9:56 AM EDT Oxygen Saturation - - Inhaled Oxygen Concentration - - Weight 58.9 kg (129 lb 12.8 oz) 04/24/2022 9:56 AM EDT Height 157.5 cm (5' 2 ) 04/24/2022 9:56 AM EDT Body Mass Index 23.74 04/24/2022 9:56 AM EDT documented in this encounter Functional [...] times daily. 60 Tablet 1 04/24/2022 06/24/2022 leflunomide (ARAVA) 10 mg Oral TabletIndications: Rheumatoid arthritis involving multiple sites with positive rheumatoid factor (HCC) Take 1 Tablet by mouth daily. 30 Tablet 1 04/24/2022 06/28/2022 documented in this encounter Progress Notes * Jessica Cortes MD - 04/24/2022 9:45 AM EDT Subjective Subjective: Patient ID: Yuliet Trevino is a 51 y.o. female. Chief Complaint Patient presents with ??? Follow-up [facility] ??? Rheumatoid Arthritis ??? Raynaud's Syndrome ??? Osteopenia ??? Neck Pain ??? Fatigue ??? Knee Pain Bilateral swelling in the back of knee. HPI The patient comes in for follow up regarding RA. Symptoms started in 2002. Seen by Physician Specialist, Dr. Astorga. She was seen in [facility] but have not seen her in [...] she has mild pain- 3/10, mild swelling. Started Simponi 50 mg q month around 02/10/22. Tolerates OK. No injection site reactions. Feels better. Joint pain; knees, right wrist are the worse, to the lesser degree fingers. Drops things if she picks it up in the right hand. Pain in the neck radiating to the shoulders. RFA previously helped. Has not been back in awhle due to her illness. Joint swelling: wrists, knuckles. Knees might be swelling up. Ankles swell towards the end of the day. Dry eyes - not too bad. Uses eye drops. Dry mouth - not too bad Pain on a scale 0-10: 7/10 Type of pain: ache Morning stiffness: up to 30 minutes. Raynaud's: worsened in the cold weather. Current therapy: MTX 15 mg weekly, Arava 10 mg daily, Simponi 50 mg sq q month, folic acid 1 mg daily, prednisone 5 [...] MUSCLE EVERY MONTH 1 mL 11 ??? DICLOFENAC SODIUM ORAL Take 75 mg by mouth 2 times daily. ??? folic acid (FOLVITE) 1 mg Oral [...] ONCE A WEEK. 4 mL 1 ??? PROAIR HFA 90 mcg/actuation Inhl HFA Aerosol Inhaler INHALE 2 PUFFS BY MOUTH EVERY 6 HOURS NEEDED FOR WHEEZE 8.5 Each 3 ??? predniSONE (DELTASONE) 10 mg Oral Tablet Take 1 Tablet by mouth daily. 6 pills x 3days, 5 pillsx 3 days, 4 pills x 3 days, 3 pills x 3 days, 2 pills x 3 days, 1 pills x 3 days (Patient not taking: Reported on 04/24/2022) 66 Tablet 0 No current facility-administered medications on [...] reviewed and are negative. Objective Objective: Vitals: 04/24/22 0956 BP: 124/76 Pulse: 101 Resp: 17 Weight: 129 lb 12.8 oz (58.9 kg) Height: 5' 2 (1.575 m) Body mass index is 23.74 kg/m??. Physical Exam Vitals reviewed. Constitutional: Appearance: She is well-developed. HENT: Head: Normocephalic and atraumatic. Musculoskeletal: Comments: Tenderness to the trapezius muscles on right, spinal processes of the lumbar spine and paraspinals in the right lumbar area. Tenderness to both wrists, 2nd, 5th right MCP, 1st left MCP, 4thright PIP, MTP joints, left trochanteric bursa. Synovitis in the wrists R>L, minimal in the 2nd,3rd, 5th right MCP, 1st left MCP, mild swelling behind both knees. ROM of the knees intact. ROM of the right ankle, right elbow decreased. ROM of the wrists decreased, L>R. Skin: General: Skin is warm. Findings: No rash. Neurological: Mental Status: She is alert. Comments: Psychiatric: Mood and Affect: Mood normal. Rapid 3: 17.3 ( last visit 24.0) Lab Results Component Value Date WBC 11.3 (H) 03/28/2022 HGB 14.1 03/28/2022 HCT 45.9 (H) 03/28/2022 MCV 87.3 03/28/2022 PLT 408 (H) 03/28/2022 Chemistry Component Value Date/Time NA 138 03/28/2022 1003 NA 138 11/23/2019 0000 K 3.6 03/28/2022 1003 K 4.6 11/23/2019 0000 CL 100 03/28/2022 1003 CL 102 11/23/2019 0000 CO2 24 03/28/2022 1003 CO2 27 11/23/2019 0000 BUN 12 03/28/2022 1003 BUN 11 11/23/2019 0000 CREATININE 0.79 03/28/2022 1003 CREATININE 0.7 11/23/2019 0000 GLU 135 (H) 03/28/2022 1003 GLU 103 (H) 07/01/2017 1532 Component Value Date/Time CALCIUM 9.4 03/28/2022 1003 CALCIUM 9.60 11/23/2019 0000 ALKPHOS 104 03/28/2022 1003 ALKPHOS 112 11/23/2019 0000 AST 20 03/28/2022 1003 AST 20 11/23/2019 0000 ALT 13 03/28/2022 1003 ALT 9 11/23/2019 0000 BILITOT 0.2 11/23/2019 0000 Lab Results Component Value Date CRP 25.87 (H) 03/28/2022 Lab Results Component Value Date SEDRATE 18 03/28/2022 Assessment and Plan: Yuliet was seen today for follow-up, rheumatoid arthritis, raynaud's syndrome, osteopenia, neck pain, fatigue and knee pain. Diagnoses and all orders for this visit: Rheumatoid arthritis involving multiple sites, with positive rheumatoid factor (HCC) Dx in [address] Astorga in [facility]. Records from [facility] received and reviewed. The patient was seen in 05/11/13 for initial evaluation. Presented with polyarticular joint involvement- large and small joints- shoulders, elbows, knees, wrists, knuckles, toes. Per records she had low titer (+) RF, (-) CCP, (+) BRET centromere pattern > 8.0 with negative SSA/SSB, GOVERNMENT GAUGER, Scl 70, dsDNA Records indicate she used [...] synovitis in exam in 02/2020. Stopped Kevzara due to nausea around 03/2020 Started Arava 10 mg daily 05/2020. On [...] Simponi 50 mg sq q month 01/2022. Has been taking MTX and Arava regularly Symptoms have improved in the last 3 months. Synovitis in the wrists R>L, minimal in the 2nd, 3rd, 5th right MCP, 1st left MCP, mild swelling behind both knees. Inflammatory markers have declined,ESR normal , CRP 25.87 on 03/28/22. Hepatitis panel checked and negative. Patient should hold therapy while being treated for infections. Patient should not receive live vaccines while on therapy. - leflunomide (ARAVA) 10 mg Oral Tablet; Take 1 Tablet by mouth daily. - diclofenac (VOLTAREN) 75 mg Oral Tablet, [...] score -2.2 at the right femoral neck FRAX score - risk for fracture is low. Vitamin D supplement daily Weight bearing exercises regularly DXA 12/18/18 showed low bone mass. Improved in the spine and stable in the hip in comparison to the last DXA from 2016 Prior elbow fracture. DXA scheduled today 04/24/22 Immunocompromised patient (HCC) Increased risk for infections due to immunosuppression Prevnar 13 given 12/13/16 Pneumovax 23 given 03/17/17 Trochanteric bursitis of the left hip Left bursa tenderness Advised to continue stretches and topical OTC creams Therapeutic drug monitoring Tuberculosis screening TB gold negative 01/23/22 Labs every 6-8 weeks while on MTX and Arava to monitor for toxicities. Recent labs 03/28/22 unremarkable except for elevated platelets and CRP. No follow-ups on file. documented in this encounter Plan of Treatment Upcoming Encounters Date Type Department Care Team (Late st Contact Info) Description 08/31/2024 8:30 AM EST Appointment [facility] [address] [place] [address] 10/25/2024 10:45 AM EST Office Visit [facility] [address] [place] [address] Jessica Cortes MD [address] [facility] Building [address] [place] [address] 01/25/2025 9:00 AM EDT Appointment [address] [address] [place] [address] 05/09/2025 11:00 AM EDT Appointment [address] [place] [address] 05/09/2025 11:15 AM EDT Appointment [address] [place] [address] Susana Garay MD [address] [place] [address] [place] [address] documented as of this encounter Goals Goal [...] syndrome (HCC) Sicca syndrome Neck pain Cervicalgia Osteopenia of multiple sites Postmenopausal state Asymptomatic postmenopausal status (age-related) (natural) Immunocompromised patient (HCC) Unspecified immunity deficiency Trochanteric bursitis of left hip Enthesopathy of hip region Tuberculosis screening Screening examination for pulmonary tuberculosis documented in this encounter Discontinued Medications Medication Sig Discontinue Reason Start Date End Da te DULoxetine (CYMBALTA) 30 mg Oral Capsule, Delayed Release(E.C.)Indications: Chronic pain syndrome,DDD (degenerative disc disease), cervical,Cervical radiculopathy Take 1 Capsule by mouth daily. Side effects 02/12/2022 04/24/2022 leflunomide (ARAVA) 10 mg Oral TabletIndications:Rheumat oid arthritis involving multiple sites with positive rheumatoid factor (HCC) Take 1 Tablet by mouth daily. Reorder 01/23/2022 04/24/2022 DICLOFENAC SODIUM ORAL Take 75 mg by mouth 2 times daily. Reorder 04/24/2022 documented as of this encounter Historical Medications * This list may reflect changes made after this encounter. DICLOFENAC SODIUM ORAL Take 75 mg by mouth 2 times daily. 04/24/2022 added in this encounter Care Teams Stock Chaser Relationship Specialty Start Date End Date Julisa Kerr MD [address] [place] [address] PCP - General 02/22/11 Jessica Cortes MD [address] [address] Internal Medicine-Rheumatology 04/26/16 documented as of this encounter
--- NOTE | 2024-08-22 21:46 | HMH.EDGENADL ---
Discharge Plan Prescriptions Prescriptions: No Action leflunomide 10 mg tablet 10 mg PO DAILY azithromycin [Zithromax Z-Ty] 250 mg tablet See Rx Instructions PO .COMPLEX Qty: 6 0RF Rx Instructions: For 250 mg dose pack: take 500 mg today (day 1), then 250 mg for 4 days (days 2-5) PO ibuprofen 600 MG tablet 600 mg PO Q6HP PRN (Reason: Moderate Pain) Qty: 20 0RF pregabalin 75 MG capsule 75 mg PO BID prednisone 10 MG tablets,dose pack 10 mg PO DAILY amitriptyline 25 MG tablet 25 mg PO DAILY Patient Comments: TAKE 1 TABLET BY MOUTH EVERY DAY AT NIGHT methotrexate sodium (PF) 1 GM recon soln 1 gm IJ DAILY folic acid 1 MG tablet 5 mg PO DAILY methylprednisolone 4 mg Tablets,Dose Pack 4 mg PO DIRECTED Qty: 21 0RF apixaban 5 MG tablet 5 mg PO BID Rx Instructions: Please take 10 mg twice a day for 7 days then take 5 mg twice a day daily for the next 30 days Referrals Follow up/Referrals: Julisa Kerr [Primary Care Provider] - See instructions Activity Restrictions/Add. Instructions Additional Instructions/Restrictions: Please go directly to the [facility] emergency department for further assessment. Clinical Impressions Clinical Impression: Fracture of distal end of femur Qualifiers: Encounter type: initial encounter Fracture type: closed Fracture morphology: other fracture Laterality: right Qualified Code(s): S72.491A - Other fracture of lower end of right femur, initial encounter for closed fracture Stand Alone Forms Stand Alone Forms: Transfer Record - ED Instructions Patient Instructions: DI for Syncope in Adults (Fainting), DI for Syncope in Children (Fainting) Print Language Print Language: Croatian Discharge ED Provider: Moshe Monae General Adult HPI <Romeo Zambrano MD - Last Filed: 08/22/24 23:46> General Chief complaint: Syncope Stated complaint: AO 08/22/24 1600 fell on right knee replacement Time Seen by Provider: 08/22/24 21:39 Mode of Arrival: Wheelchair Source of Information: Patient Limitations: No Limitations Description of Symptoms (Recalled from ER Triage Doc. by RN): Patient to ED in wheelchair with complaints of weakness, fall around 1500 where patient hit head to which she take eliquis. Patient with n/v previous to fall along with dizziness, and syncoble episode hitting head, and injuring right knee. History of Present Illness HPI narrative: Please note that above description of symptoms, in this electronic medical record under categorization of recalled from ER triage doctor by RN are reflective of an initial nursing assessment, however, is not reflective of my full history and physical exam that was personally taken and clarified. Consequentially, this preceding description of symptoms, which may include the patient's categorized chief complaint in the EMR, do not reflect my personal clinical impression, and the ultimate description of history of present illness and patient stated complaints should be deferred to this section of the note. Unless stated otherwise or congruent with this section of the note, additional signs, symptoms, or incongruence should be interpreted as inaccurate with my clinical impression. Related Data Home Medications ?Medication ?Instructions ?Recorded ?Confirmed amitriptyline 25 mg tablet 25 mg PO DAILY Pain 03/22/19 01/07/22 methotrexate sodium (PF) 1 gram 1 gm IJ DAILY Supplement 03/22/19 01/07/22 solution for injection folic acid 1 mg tablet 5 mg PO DAILY Supplement 04/09/19 01/07/22 leflunomide 10 mg tablet 10 mg PO DAILY Rapid heart rate 09/20/20 01/07/22 prednisone 10 mg tablets in a dose 10 mg PO DAILY . 10/12/21 01/07/22 pack pregabalin 75 mg capsule 75 mg PO BID . 10/12/21 01/07/22 apixaban 5 mg tablet 5 mg PO BID BLOOD CLOTTING DISORDER 10/04/22 10/04/22 Previous Rx's ?Medication ?Instructions ?Recorded ibuprofen 600 mg tablet 600 mg PO Q6HP PRN Moderate Pain 09/19/20 #20 tabs methylprednisolone 4 mg tablets in 4 mg PO DIRECTED #21 tabs 07/15/22 a dose pack azithromycin 250 mg tablet See Rx Instructions PO .COMPLEX #6 08/16/22 (Zithromax Z-Ty) tabs Allergies Allergy/AdvReac Type Severity Reaction Status Date / Time abatacept (From Orencia) Allergy Verified 12/07/21 14:25 adalimumab (From Humira) Allergy Verified 12/07/21 14:25 celecoxib (From Celebrex) Allergy Verified 12/07/21 14:25 etanercept (From Enbrel) Allergy Verified 07/15/22 11:44 meloxicam (From Mobic) Allergy Verified 07/15/22 11:44 tocilizumab (From Actemra) Allergy Verified 12/07/21 14:25 tofacitinib Allergy Verified 07/15/22 11:44 PFSH <Romeo Zambrano MD - Last Filed: 08/22/24 23:46> [facility] Disclaimer: The information contained in this section may have been updated after the patient was seen, as this information can be updated by other users. 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 current occupational exposures/hazards: No caffeine: Yes Other Medical History Have you received the Flu Vaccine for this season: No Have you received the Pneumonia Vaccine: No <Romeo Zambrano MD - Last Filed: 08/22/24 23:46> ROS Obtained: Yes All systems reviewed & no additional complaints except as documented Physical Exam <Romeo Zambrano MD - Last Filed: 08/22/24 23:46> General General appearance: alert Head Head exam: atraumatic and normocephalic Eye Eye exam: Present normal appearance, PERRL and EOMI Neck Neck exam: Present normal inspection, full ROM and trachea midline Respiratory Respiratory exam: Absent respiratory distress, wheezes, stridor, accessory muscle use or prolonged expiratory phase Cardiovascular Cardiovascular exam: Present other (Pulses equal symmetric in upper and lower extremities) Abdominal Exam Abdominal exam: Present soft; Absent distention, tenderness or pulsatile mass Extremities Exam Extremities exam: Present edema Neurological Exam Neurological exam: Present alert, oriented X3 and CN II-XII intact; Absent motor sensory deficit Skin Skin exam: Present warm and dry; Absent diaphoresis or erythema Medical Decision Making <Romeo Zambrano MD - Last Filed: 08/22/24 23:46> Medical Records Medical records reviewed: Yes I reviewed the patient's medical records. Screening: Per USPSTF and CDC recommendations, given the prevalence of disease in our region, it is our hospital?s policy to screen for HIV and viral Hepatitis for all patients aged 18 and over and those with ongoing risk factors. Baldo Inquiry Pt receiving controlled substance: No Baldo was queried for this patient: No Vital Signs: 08/22/24 20:05 08/22/24 22:09 08/22/24 22:30 Temperature 98.4 F Temperature Source Oral Pulse Rate 101 H 101 H Pulse Rate [Right] 111 H Respiratory Rate 16 Blood Pressure 122/83 122/82 Blood Pressure [Right Arm] 124/67 Blood Pressure Mean [Right Arm] 86 Blood Pressure Source Blood Pressure Source [Right Arm] Automatic Cuff Blood Pressure Position Blood Pressure Position [Right Arm] Sitting 02 Sat by Pulse Oximetry 97 95 96 Oxygen Delivery Method Room Air 08/23/24 00:57 Temperature 97.9 F Temperature Source Oral Pulse Rate 74 Pulse Rate [Right] Respiratory Rate 18 Blood Pressure 124/72 Blood Pressure [Right Arm] Blood Pressure Mean [Right Arm] Blood Pressure Source Automatic Cuff Blood Pressure Source [Right Arm] Blood Pressure Position Supine Blood Pressure Position [Right Arm] 02 Sat by Pulse Oximetry Oxygen Delivery Method Room Air Lab Data Lab Results 08/22/24 22:29: Urine Color Yellow, Urine Appearance Clear, Urine pH 6.0, Ur Specific [place] 1.010, Urine Protein Negative, Urine Glucose (UA) Negative, Urine Ketones Negative, Urine Blood Negative, Urine Nitrate Negative, Urine Bilirubin Negative, Urine Urobilinogen 0.2, Ur Leukocyte Esterase Negative, Urine RBC None, Urine WBC 5-10, Ur Squamous Epith Cells 5-10, Urine Bacteria 1+ 08/22/24 23:32: WBC 10.3, RBC 4.87, Hgb 12.9, Hct 39.2, MCV 80.5 L, MCH 26.5 L, MCHC 32.9, RDW 15.9, Plt Count 329, MPV 7.5, Neut % (Auto) 70.0, Lymph % (Auto) 18.2, [place] % (Auto) 8.9, Eos % (Auto) 1.9, Baso % (Auto) 0.9, Neut # (Auto) 7.2, Lymph # (Auto) 1.9, [place] # (Auto) 0.9, Eos # (Auto) 0.2, Baso # (Auto) 0.1, Sodium 134 L, Potassium 3.6, Chloride 103, Carbon Dioxide 26, Anion Gap 8.6, BUN 12, Creatinine 0.80, Estimated Creat Clear 83, Estimated GFR 75, Est GFR ( Amer) 91, Glucose 112 H, Calcium 8.9, Total Bilirubin 0.6, AST 26, ALT 19, Alkaline Phosphatase 80, Troponin I < 0.01, Total Protein 6.9, Albumin 3.5, Globulin 3.3 H, Albumin/Globulin Ratio 1.1 08/22/24 23:32 08/22/24 23:32 Orders (Tests/Meds): ED MEDICATIONS Discontinued Medications Generic Name Dose Route Start Last Admin Trade Name Ljq PRN Reason Stop Dose Admin Ketorolac Tromethamine 15 mg 08/22/24 22:08 08/22/24 22:12 Ketorolac 30mg/Ml Vial IV 08/22/24 22:09 15 mg ONCE ONE Administration Morphine Sulfate 4 mg 08/23/24 00:10 08/23/24 00:18 Morphine 4mg/Ml Syringe IV 08/23/24 00:11 4 mg ONCE ONE Administration ORDERS Category Date Time Status CT head/brain wo con Stat Cat Scan 08/22/24 22:08 Completed Knee XR right 3 views [XR knee RT 3V] Stat Exams 08/22/24 22:08 Completed CBC w/Auto Diff [Complete Blood Count Auto Diff] Stat Lab 08/22/24 23:32 Completed CMP [Comprehensive Metabolic Panel] Stat Lab 08/22/24 23:32 Completed HIV (1&2) Antibody Rapid Stat Lab 08/22/24 23:32 Received Hep C Ab with Reflex to RNA Stat Lab 08/22/24 23:32 Received Trop I [Troponin I] Stat Lab 08/22/24 23:32 Completed Urinalysis and Microscopic Stat Lab 08/22/24 22:29 Completed Medical Decision Narrative: 53-year-old female history of RA and APLS on Eliquis presenting with right knee pain. Patient states that she had a total knee replacement in the remote past. Just prior to arrival, felt nauseated, vomited, tried to get to the bathroom, syncopized and fell onto her right knee. Having pain since that time, has ambulated, but having significant pain with this. Has not taken anything for pain. On arrival, well-appearing. She does have tenderness about her right knee with significant pain with range of motion. She has an obvious effusion. Tenderness primarily medial. No obvious outward signs of deformity. Neurovascularly intact. Differential includes fracture, sprain, strain, effusion, among others. EKG independently interpreted, no acute ischemic change, sinus rhythm. Patient given Toradol IV. Independent interpretation of workup demonstrates periprosthetic distal femur fracture on the right. Labs pending at time of handoff to oncoming physician, but [facility] was called and case was discussed for transfer and management of periprosthetic femur fracture. Applications Sales Representative disclaimer Much of this encounter note is an electronic gang knife fish chopper spoken language to printed text. Electronic gang knife fish chopper of the spoken language may permit errors. Although I have reviewed the note, some errors may still exist. <Moshe Monae MD - Last Filed: 08/23/24 02:12> Vital Signs: 08/22/24 20:05 08/22/24 22:09 08/22/24 22:30 Temperature 98.4 F Temperature Source Oral Pulse Rate 101 H 101 H Pulse Rate [Right] 111 H Respiratory Rate 16 Blood Pressure 122/83 122/82 Blood Pressure [Right Arm] 124/67 Blood Pressure Mean [Right Arm] 86 Blood Pressure Source Blood Pressure Source [Right Arm] Automatic Cuff Blood Pressure Position Blood Pressure Position [Right Arm] Sitting 02 Sat by Pulse Oximetry 97 95 96 Oxygen Delivery Method Room Air 08/23/24 00:57 Temperature 97.9 F Temperature Source Oral Pulse Rate 74 Pulse Rate [Right] Respiratory Rate 18 Blood Pressure 124/72 Blood Pressure [Right Arm] Blood Pressure Mean [Right Arm] Blood Pressure Source Automatic Cuff Blood Pressure Source [Right Arm] Blood Pressure Position Supine Blood Pressure Position [Right Arm] 02 Sat by Pulse Oximetry Oxygen Delivery Method Room Air Lab Data Lab Results 08/22/24 22:29: Urine Color Yellow, Urine Appearance Clear, Urine pH 6.0, Ur Specific [place] 1.010, Urine Protein Negative, Urine Glucose (UA) Negative, Urine Ketones Negative, Urine Blood Negative, Urine Nitrate Negative, Urine Bilirubin Negative, Urine Urobilinogen 0.2, Ur Leukocyte Esterase Negative, Urine RBC None, Urine WBC 5-10, Ur Squamous Epith Cells 5-10, Urine Bacteria 1+ 08/22/24 23:32: WBC 10.3, RBC 4.87, Hgb 12.9, Hct 39.2, MCV 80.5 L, MCH 26.5 L, MCHC 32.9, RDW 15.9, Plt Count 329, MPV 7.5, Neut % (Auto) 70.0, Lymph % (Auto) 18.2, [place] % (Auto) 8.9, Eos % (Auto) 1.9, Baso % (Auto) 0.9, Neut # (Auto) 7.2, Lymph # (Auto) 1.9, [place] # (Auto) 0.9, Eos # (Auto) 0.2, Baso # (Auto) 0.1, Sodium 134 L, Potassium 3.6, Chloride 103, Carbon Dioxide 26, Anion Gap 8.6, BUN 12, Creatinine 0.80, Estimated Creat Clear 83, Estimated GFR 75, Est GFR ( Amer) 91, Glucose 112 H, Calcium 8.9, Total Bilirubin 0.6, AST 26, ALT 19, Alkaline Phosphatase 80, Troponin I < 0.01, Total Protein 6.9, Albumin 3.5, Globulin 3.3 H, Albumin/Globulin Ratio 1.1 Orders (Tests/Meds): ED MEDICATIONS Discontinued Medications Generic Name Dose Route Start Last Admin Trade Name Freq PRN Reason Stop Dose Admin Ketorolac Tromethamine 15 mg 08/22/24 22:08 08/22/24 22:12 Ketorolac 30mg/Ml Vial IV 08/22/24 22:09 15 mg ONCE ONE Administration Morphine Sulfate 4 mg 08/23/24 00:10 08/23/24 00:18 Morphine 4mg/Ml Syringe IV 08/23/24 00:11 4 mg ONCE ONE Administration ORDERS Category Date Time Status CT head/brain wo con Stat Cat Scan 08/22/24 22:08 Completed Knee XR right 3 views [XR knee RT 3V] Stat Exams 08/22/24 22:08 Completed CBC w/Auto Diff [Complete Blood Count Auto Diff] Stat Lab 08/22/24 23:32 Completed CMP [Comprehensive Metabolic Panel] Stat Lab 08/22/24 23:32 Completed HIV (1&2) Antibody Rapid Stat Lab 08/22/24 23:32 Received Hep C Ab with Reflex to RNA Stat Lab 08/22/24 23:32 Received Trop I [Troponin I] Stat Lab 08/22/24 23:32 Completed Urinalysis and Microscopic Stat Lab 08/22/24 22:29 Completed Medical Decision Narrative: 53-year-old female history of RA and APLS on Eliquis presenting with right knee pain. Patient states that she had a total knee replacement in the remote past. Just prior to arrival, felt nauseated, vomited, tried to get to the bathroom, syncopized and fell onto her right knee. Having pain since that time, has ambulated, but having significant pain with this. Has not taken anything for pain. On arrival, well-appearing. She does have tenderness about her right knee with significant pain with range of motion. She has an obvious effusion. Tenderness primarily medial. No obvious outward signs of deformity. Neurovascularly intact. Differential includes fracture, sprain, strain, effusion, among others. EKG independently interpreted, no acute ischemic change, sinus rhythm. Patient given Toradol IV. Independent interpretation of workup demonstrates periprosthetic distal femur fracture on the right. Labs pending at time of handoff to oncoming physician, but [facility] was called and case was discussed for transfer and management of periprosthetic femur fracture. Applications Sales Representative disclaimer Much of this encounter note is an electronic gang knife fish chopper spoken language to printed text. Electronic gang knife fish chopper of the spoken language may permit errors. Although I have reviewed the note, some errors may still exist. Letha VERNON: I assumed care of the patient at the time of handoff from the prior provider. On reassessment patient required additional pain control. Was given IV morphine. Patient's laboratories all returned unremarkable including negative initial troponin. CT head imaging interpreted by me shows no evidence of intracranial bleeding or trauma. Interactive discussion was had with the [facility] and patient was accepted for transfer. Critical Care <Romeo Zambrano MD - Last Filed: 08/22/24 23:46> Critical Care Time Critical Care Time: No
--- OUTSIDE RECORDS SUMMARY | 2024-08-22 21:46 | XMS_ITS | Encounter Summary ---
Author Organization [facility] [place] [address] Care Team Providers Care Supervisor Matrix Name Role Phone Julisa Kerr MD Primary Care Provider [phone] Jessica Cortes MD Unavailable [phone] Encounter Details Date Type Department Care Team (Latest Contact Info) Description 11/16/2021 Travel Social History Tobacco Use Types Packs/Day Years Used Date Smoking Tobacco: Never Smokeless Tobacco: Never Alcohol Use Standard Drinks/Week Comments Yes 0 (1 standard drink = 0.6 oz pur e alcohol) occasional PHQ-2 Answer Date Recorded PHQ-2 Total Score 0 11/22/2020 Sexually Active Control Partners Comments Yes Comments No Sex and Gender Information Value Date Recorded Sex Assigned at Not on file Legal Sex Female 5:21 PM EDT Gender Identity Not on file Sexual Orientation Not on file documented as of this encounter Functional Status * Is the person deaf or does he/she have serious difficulty hearing? Answer Date of Assessment Author No 11/22/2020 3:41 PM Albin Blake MA * Is the person blind or does he/she have serious difficulty seeing even when wearing glasses? Answer Date of Assessment Author No 11/22/2020 3:41 PM Albin Blake MA * Does this person have serious difficulty walking or climbing stairs? Answer Date of Assessment Author No 11/22/2020 3:41 PM Albin Blake MA * Does this person have difficulty dressing or bathing? Answer Date of Assessment Author No 11/22/2020 3:41 PM EST Albin Levy MA * Because of a physical, mental or emotional condition, does this person have difficulty doing errands alone such as visiting a doctor's office or shopping? Answer Date of Assessment Author No 11/22/2020 3:41 PM Albin Blake MA documented as of this encounter Mental Status * Because of a physical, mental or emotional condition, does this person have serious difficulty concentrating, remembering or making decisions? Answer Entry Date Author No 11/22/2020 3:41 PM EST Albin Levy MA documented in this encounter Plan of Treatment Upcoming Encounters Date Type Department Care Team (Late st Contact Info) Description 08/31/2024 8:30 AM EST Appointment [address] [place] [address] 10/25/2024 10:45 AM EST Office Visit [facility] [address] [place] [address] Jessica Cortes MD [address] [place] [address] 01/25/2025 9:00 AM EDT [address]ointment [address] [place] [address] 05/09/2025 11:00 AM EDT [address]ointment [address] [place] [address] 05/09/2025 11:15 AM EDT Appointment [address] [place] [address] Susana Garay MD [address] [place] [address] [place] [address] documented as of this encounter Goals Goal Patient Goal Type Associated Problems Recent Progress Patient-Stated? 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, RN documented as of this encounter Visit Diagnoses Not on filedocumented in this encounter Care Teams Supervisor Matrix Relationship Specialty Start Date End Date Julisa Kerr MD [address] [id number] PCP - General 02/22/11 Jessica Cortes MD [address] [place] [address] Internal Medicine-Rheumatology 04/26/16 documented as of this encounter
--- OUTSIDE RECORDS SUMMARY | 2024-08-22 21:46 | XMS_ITS | Encounter Summary ---
Author Organization [facility] [place] [address] Care Team Providers Care Cloth Bolt Bander Name Role Phone Julisa Kerr MD Primary Care Provider [phone] Jessica Cortes MD Unavailable [phone] Encounter Details Date Type Department Care Team (Latest Contact Info) Description 10/02/2021 Travel Social History Tobacco Use Types Packs/Day [...] Description 08/31/2024 8:30 AM EST Appointment [address] [place] [address] 10/25/2024 10:45 AM EST Office Visit [facility] [address] [place] [address] Jessica Cortes MD [address] [place] [address] 01/25/2025 9:00 AM EDT [address]ointment [address] [place] [address] 05/09/2025 11:00 AM EDT [address]ointment [address] [place] [address] 05/09/2025 11:15 AM EDT Appointment [address] [place] [address] Susana Garay MD [address] [place] [address] [place] [address] documented as of this encounter Goals Goal Patient Goal Type Associated Problems Recent Progress Patient-Stated? 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, RN documented as of this encounter Visit Diagnoses Not on filedocumented in this encounter Care Teams Cloth Bolt Bander Relationship Specialty Start Date End Date Julisa Kerr MD [address] [id number] PCP - General 02/22/11 Jessica Cortes MD [address] [place] [address] Internal Medicine-Rheumatology 04/26/16 documented as of this encounter
--- OUTSIDE RECORDS SUMMARY | 2024-08-22 21:46 | XMS_ITS | Encounter Summary ---
Author Organization [place] [address] Care Team Providers Care Senior Actuarial Analyst Name Role Phone Julisa Kerr MD Primary Care Provider [phone] Jessica Cortes MD Unavailable [phone] Reason for Visit * Reason Comments Medication Refill Encounter Details Date Type Department Care Team (Late st Contact Info) Description 02/07/2022 Refill [facility] [address] [place] [address] Jessica Cortes MD [address] [phone] Medication Refill Social History Tobacco Use Types [...] suspected to have Coronavirus/COVID-19? No / Unsure 01/23/2022 10:03 AM EDT documented as of this encounter [...] 11/22/2020 3:41 PM Albin Blake MA * Because of a physical, [...] Entry Date Author No 11/22/2020 3:41 PM Albin Blake MA documented in this encounter Ordered Prescriptions Prescription Sig Dispense Quantity Refills Last Filled Start Date End Date Golimumab (SIMPONI) 50 mg/0.5 mL SubQ Pen InjectorIndication s:Rheumatoid arthritis involving multiple sites with positive rheumatoid factor (HCC) Inject under the skin 0.5 mL (one syringe) every 30 days. 0.5 mL 5 06/13/2022 1:42 PM EDT 02/07/2022 06/28/2022 documented in this encounter Miscellaneous Notes * Telephone Encounter - Rivka Capellan - 02/07/2022 1:07 PM EDT Pt unable to get this fill because of the cost , she was also offer a cost assistance , pt states she is on medicaid and because she is on medicaid she is not eligble , please advise what else she can have , thanks documented in this encounter Plan of Treatment Upcoming Encounters Date Type Department Care Team (Late st Contact Info) Description 08/31/2024 8:30 AM EST Appointment [address] [place] [address] 10/25/2024 10:45 AM EST Office Visit [facility] [address] [facility] [address] [place] [address] Jessica Cortes MD [address] [facility] Building [address] [place] [address] 01/25/2025 9:00 AM EDT Appointment [address] [place] [address] 05/09/2025 11:00 AM EDT Appointment [address] [place] [address] 05/09/2025 11:15 AM EDT Appointment [address] [place] [address] Susana Garay MD [address] [place] [address] documented as of this encounter Goals Goal Patient Goal Type Associated Problems Recent Progress Patient-Stated? 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 RN documented as of this encounter Visit Diagnoses Diagnosis Rheumatoid arthritis involving multiple sites with positive rheumatoid factor (HCC) documented in this encounter Care Teams Senior Actuarial Analyst Relationship Specialty Start Date End Date Julisa Kerr MD [address] [place] [address] PCP - General 02/22/11 Jessica Cortes MD [address] [facility] [address] [place] [address] Internal Medicine-Rheumatology 04/26/16 documented as of this encounter
--- OUTSIDE RECORDS SUMMARY | 2024-08-22 21:46 | XMS_ITS | Encounter Summary ---
Author Organization [facility] [place] [address] Care Team Providers Care Santa'S Helper Name Role Phone Julsia Kerr MD Primary Care Provider [phone] Jessica Cortes MD Unavailable [phone] Encounter Details Date Type Department Care Team (Latest Contact Info) Description 01/23/2022 Travel Social History Tobacco Use Types Packs/Day [...] Albin Blake MA documented in this encounter Plan of Treatment Upcoming Encounters Date Type Department Care Team (Late st Contact Info) Description 08/31/2024 8:30 AM EST Appointment [address] [place] [address] 10/25/2024 10:45 AM EST Office Visit [facility] [address] [facility] [address] [place] [address] Jessica Cortes MD [address] [place] [address] [address] [place] [address] 01/25/2025 9:00 AM EDT [address]ointment [address] [place] [address] 05/09/2025 11:00 AM EDT Appointment [address] [place] [address] 05/09/2025 11:15 AM EDT Appointment [address] [address] [place] [address] Susana Garay MD [address] [place] [address] [place] [address] documented as of this encounter Goals Goal Patient Goal Type Associated Problems Recent Progress Patient-Stated? Author Maintain a healthy diet, exercise regularly and maintain an ideal body weight General Porsche Ashley, RN documented as of this encounter Visit Diagnoses Not on filedocumented in this encounter Care Teams Santa'S Helper Relationship Specialty Start Date End Date Julisa Kerr MD [address] [place] [address] PCP - General 02/22/11 Jessica Cortes MD [address] [address] Internal Medicine-Rheumatology 04/26/16 documented as of this encounter
--- OUTSIDE RECORDS SUMMARY | 2024-08-22 21:46 | XMS_ITS | Encounter Summary ---
Author Organization [place] [address] Care Team Providers Care Community Relations Liaison Name Role Phone Julisa Kerr MD Primary Care Provider [phone] Jessica Cortes MD Unavailable [phone] Reason for Visit * Reason Comments Pharmacy Rheumatology Management simponi Encounter Details Date Type Department Care Team (Latest Contact Info) Description 03/06/2022 Specialty Pharmacy [facility] [address] [phone] Jessi Spencer CPhT Pharmacy Rheumatology Management (simponi) Social History Tobacco Use Types Packs/Day Years [...] documented in this encounter Progress Notes * Jessi Spencer CPhT - 03/06/2022 11:19 AM EDT Specialty Pharmacy Refill Coordination Note Yuliet Trevino is a 51 y.o. female contacted today regarding refills of her Simponi .Spoke with patient. Pt called for a refill and it is rts until Friday, 03/10. I told the pt that we will call her on 03/11 for the refill. Pt was not happy she couldn't get it sooner. I explained it was ins rts. * Porsche Joyce CPhT - 03/06/2022 11:19 AM EDT Specialty Pharmacy Refill Coordination Note Yuliet Trevino is a 51 y.o. female contacted today regarding refills of her Simponi. No answer, unable to leave voicemail. * Porsche Joyce CPhT - 03/06/2022 11:19 AM EDT Specialty Pharmacy Refill Coordination Note Yuliet Trevino is a 51 y.o. female contacted today regarding refills of her Simponi. Medication to be delivered by [facility] on 03/15. Patient was supposed to take her dose on Friday but the insurance would not pay for it until Friday. I am setting out the refill date a little earlier for next month so that she doesn't run into the issue again and we can address if needed for next month. Spoke with patient. * Jaxon Noel RPH - 03/06/2022 11:19 AM EDT [facility] - Care Plan and Refill Review Refill questions and refill history verified. Last assessment 02/19/22. No reassessment needed at this time. Patient states they are late for dose but this is not true. Jaxon Noel [facility] Specialty Pharmacist documented in this encounter Plan of Treatment Upcoming Encounters Date Type Department Care Team (Late st Contact Info) Description 08/31/2024 8:30 AM EST [address]ointment [address] [place] [address] 10/25/2024 10:45 AM EST Office Visit [facility] [address] [place] [address] Jessica Cortes MD [address] [facility] Building [address] [place] [address] 01/25/2025 9:00 AM EDT Appointment [address] [address] [place] [address] 05/09/2025 11:00 AM EDT [address]ment [address] [place] [address] 05/09/2025 11:15 AM EDT Appointment [facility] [address] [place] [address] Susana Garay MD [address] [place] [address] [place] [address] documented as of this encounter Goals Goal Patient Goal Type Associated Problems Recent Progress Patient-Stated? 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 RN documented as of this encounter Visit Diagnoses Not on filedocumented in this encounter Care Teams Community Relations Liaison Relationship Specialty Start Date End Date Julisa Kerr MD [address] [place] [address] PCP - General 02/22/11 Jessica Cortes MD [address] [facility] [address] [place] [address] Internal Medicine-Rheumatology 04/26/16 documented as of this encounter
--- OUTSIDE RECORDS SUMMARY | 2024-08-22 21:46 | XMS_ITS | Encounter Summary ---
Author Organization [place] [address] Care Team Providers Care Design Assistant Name Role Phone Julisa Kerr MD Primary Care Provider [phone] Jessica Cortes MD Unavailable [phone] Reason for Visit * Reason Comments Medication Refill Encounter Details Date Type Department Care Team (Late st Contact Info) Description 08/22/2021 Refill SEP Rheumatology [facility] 651 [facility] Building [address] [place] [address] Jessica Cortes MD [address] [address] Medication Refill Social History Tobacco [...] Exposure Response Date Recorded In the last month, have you been in contact with someone who was confirmed or suspected to have Coronavirus / COVID-19? No / Unsure 07/30/2021 1:31 PM EDT documented as of this encounter [...] BY MOUTH EVERY DAY 30 Tablet 1 08/22/2021 01/23/2022 documented in this encounter Miscellaneous Notes * Telephone Encounter - Mel Michaels RMA - 08/22/2021 8:57 AM EST Last OV 06/18/21 Last BW 07/30/21 Next OV 09/17/21 Chart reviewed. documented in this encounter Plan of Treatment Upcoming Encounters Date Type Department Care Team (Late st Contact Info) Description 08/31/2024 8:30 AM EST Appointment [facility] [address] [place] [address] 10/25/2024 10:45 AM EST Office Visit [facility] RHEUMATOLOG[facility] [address] [facility] [address] [place] [address] Jessica Cortes MD 651 [facility] Building [address] [id number] 01/25/2025 9:00 AM EDT Appointment [address] [place] [address] 05/09/2025 11:00 AM EDT Appointment [address] [place] [address] 05/09/2025 11:15 AM EDT Appointment [address] [place] [address] Susana Garay MD [address] [place], [place] [id number] documented as of this encounter Goals Goal [...] (HCC) Take 1 Tablet by mouth daily. 06/21/2021 08/22/2021 documented as of this encounter Care Teams Design Assistant Relationship Specialty Start Date End Date Julisa Kerr MD [address] [id number] PCP - General 02/22/11 Jessica Cortes MD 651 [facility] Building 19 [place] [address] Internal Medicine-Rheumatology 04/26/16 documented as of this encounter
--- OUTSIDE RECORDS SUMMARY | 2024-08-22 21:46 | XMS_ITS | Encounter Summary ---
Author Organization [facility] [place] [address] Care Team Providers Care Lodge Officer Name Role Phone Julisa Kerr MD Primary Care Provider [phone] Jessica Cortes MD Unavailable [phone] Encounter Details Date Type Department Care Team (Latest Contact Info) Description 01/16/2022 Travel Social History Tobacco Use Types Packs/Day [...] have Coronavirus / COVID-19? No / Unsure 01/16/2022 1:04 PM EDT documented as of this encounter [...] Description 08/31/2024 8:30 AM EST [address]ment [address] [place] [address] 10/25/2024 10:45 AM EST Office Visit [facility] R[facility] [address] [place] [address] Jessica Cortes MD [address] [facility] Building 19 [place] [address] 01/25/2025 9:00 AM EDT [address]ointment [address] [address] 05/09/2025 11:00 AM EDT [address]ointment [address] [place] [address] 05/09/2025 11:15 AM EDT [address]ointment [address] [address] Susana Garay MD [address] [place] [address] [address] [phone] documented as of this encounter Goals Goal Patient Goal Type Associated Problems Recent Progress Patient-Stated? Author Maintain a healthy diet, exercise regularly and maintain an ideal body weight General Porsche Ashley, RN documented as of this encounter Visit Diagnoses Not on filedocumented in this encounter Care Teams Lodge Officer Relationship Specialty Start Date End Date Julisa Kerr MD [address] [phone] PCP - General 02/22/11 Jessica Cortes MD [address] [id number] Internal Medicine-Rheumatology 04/26/16 documented as of this encounter
--- OUTSIDE RECORDS SUMMARY | 2024-08-22 21:46 | XMS_ITS | Encounter Summary ---
Author Organization [place] [address] Care Team Providers Care Entry Level Civil Engineer Name Role Phone Julisa Kerr MD Primary Care Provider [phone] Jessica Cortes MD Unavailable [phone] Reason for Visit * Reason Comments Pharmacy Rheumatology Management Pharmacy Initial Assessment Simponi Encounter Details Date Type Department Care Team (Latest Contact Info) Description 02/15/2022 Specialty Pharmacy [facility] [address] [phone] Violette Crowe [facility] Pharmacy Rheumatology Management; Pharmacy Initial Assessment (Simponi) [...] cannot be sent through Care Everywhere. * Golimumab, ADULT (Maldivian) documented in this encounter Progress Notes * Violette Crowe RP - 02/15/2022 10:57 AM EDT Specialty Pharmacy - Rheumatology Initial Assessment Yuliet Trevino is a 51 y.o. female contacted today regarding her initial assessment of Simponi. No answer, left voicemail to call [phone]. Violette Crowe [facility] Specialty Pharmacist * Jaxon Noel [facility] - 02/15/2022 10:57 AM EDT Specialty Pharmacy - Rheumatology Initial Assessment Subjective Yuliet Trevino is a 51 y.o. female, who is initiating specialty pharmacy service with golimumab (Simponi) for Rheumatoid arthritis with positive rheumatoid factor (M05.79). Therapy has been evaluated by a pharmacist and determined to be clinically appropriate. Other current Rheumatology medications: Methotrexate (Trexall) and Leflunomide (Arava) Previous medications utilized: Adalimumab (Humira), Etanercept (Enbrel), Abatacept (Orencia), Tocilizumab (Actemra), Sarilumab (Kevzara), Infliximab (Remicade), Methotrexate (Trexall) and Leflunomide(Arava) Extended Emergency Contact Information Primary Emergency Contact: Dotty Glass Mobile Relation: Daughter Secondary Emergency Contact: Waldo Newsome [facility] Mobile Relation: Spouse Objective Risk/ Status: Hysterectomy Test: No results found for: PREGTESTUR Last TB test: Lab Results Component Value Date QUANTIFERON Negative 01/23/2022 ] Last Hepatitis BsAg: Lab Results Component Value Date HEPBSAG Negative 04/22/2016 ] Last Hepatitis BcIGM: Lab Results Component Value Date HEPBIGM Negative 04/22/2016 ] Last Hepatitis BsAb: No results found for: HEPBSAB] Lab Results Component Value Date ALT 11 01/16/2022 AST 15 01/16/2022 BUN 11 01/16/2022 CREATININE 0.64 01/16/2022 Lab Results Component Value Date WBC 9.0 01/16/2022 HGB 11.8 01/16/2022 HCT 38.7 01/16/2022 PLT 432 (H) 01/16/2022 MCV 86.4 01/16/2022 RDW 14.1 01/16/2022 NEUTOPHILPCT 63.6 01/16/2022 LYMPHOPCT 15.2 01/16/2022 MONOPCT 15.9 01/16/2022 EOSPCT 3.7 01/16/2022 BASOPCT 0.9 01/16/2022 Current Outpatient Medications Medication Sig ??? cyanocobalamin INJECT 1ML INTO THE MUSCLE EVERY MONTH ??? DULoxetine Take 1 Capsule by mouth daily. ??? folic acid TAKE 1 TABLET BY MOUTH EVERY DAY ??? Simponi Inject under the skin 0.5 mL (one syringe) every 30 days. ??? leflunomide Take 1 Tablet by mouth daily. ??? methotrexate sodium Subcutaneous (Inject under the skin) 0.6 mL once a week. ??? predniSONE Take 1 Tablet by mouth daily. 6 pills x 3days, 5 pills x 3 days, 4 pills x 3 days, 3pills x 3 days, 2 pills x 3 days, 1 pills x 3 days ??? ProAir HFA INHALE 2 PUFFS BY MOUTH EVERY 6 HOURS NEEDED FOR WHEEZE Assessment Rheumatology: Patient was prescribed golimumab (Simponi) 50mg/0.5mL SQ every 30 day(s). Indication, effectiveness, safety and convenience of her specialty medication(s) were reviewed today. Patient aware of cost and verified current address. Environmental concerns noted: none Mental capacity concerns noted: none Functional/Dietary limitations noted: none Drug Interactions Drug interactions evaluated: yes Clinically relevant drug interactions identified: no Provided the patient with educational material regarding drug interactions: not applicable Plan: Patient picked up medication on 02/15/22. Patient Counseling Counseled the patient on the following: doses and administration discussed, safe handling, storage,and disposal discussed, possible adverse effects and management discussed, possible drug and prescription drug interactions discussed, possible drug and OTC drug and food interactions discussed, lab m onitoring and follow-up discussed, therapeutic rationale discussed, cost of medications and cost implications discussed, adherence and missed doses discussed, pharmacy contact information discussed Patient has been on numerous injectable biologic medications before and felt very comfortable with storage, side effects, injection of the medication. The patient was provided a Welcome Packet with information on pharmacy services, their rights and responsibilities, and the Notice of Privacy Practices. This information was reviewed with the patientand she understands to contact the pharmacy with any questions or concerns she may have after reviewing the material. Clinical Assessment Follow-up: 12 month(s) Reviewed plan of care, expected outcomes, and goals of therapy with patient who verbalized understanding and is agreeable with plan. Jaxon Noel RPH Specialty Pharmacist documented in this encounter Plan of Treatment Upcoming Encounters Date Type Department Care Team (Late st Contact Info) Description 08/31/2024 8:30 AM EST Appointment [facility] [address] [place] [address] 10/25/2024 10:45 AM EST Office Visit [facility] R[facility] [address] [facility] [address] [place] [address] Jessica Cortes MD 651 [facility] Building 19 [place] [address] 01/25/2025 9:00 AM EDT Appointment [address] [place] [address] 05/09/2025 11:00 AM EDT Appointment [address] [place] [address] 05/09/2025 11:15 AM EDT Appointment [address] [place] [address] Susana Garay MD [address] [place] [address] documented as of this encounter Goals Goal Patient Goal Type Associated Problems Recent Progress Patient-Stated? Author Maintain a healthy diet, exercise regularly and maintain an ideal body weight General Porsche Ashley, RN documented as of this encounter Visit Diagnoses Not on filedocumented in this encounter Care Teams Entry Level Civil Engineer Relationship Specialty Start Date End Date Julisa Kerr MD 100 [place] [address] PCP - General 02/22/11 Jessica Cortes MD 651 [facility] 19 [place] [address] Internal Medicine-Rheumatology 04/26/16 documented as of this encounter
--- OUTSIDE RECORDS SUMMARY | 2024-08-22 21:46 | XMS_ITS | Encounter Summary ---
Author Organization [place] [address] Care Team Providers Care Financial Planning Consultant Name Role Phone Julisa Kerr MD Primary Care Provider [phone] Jessica Cortes MD Unavailable [phone] Reason for Visit * Reason Onset Date Comments Central Order Completion Outreach 09/06/2021 Mammogram Encounter Details Date Type Department Care Team (Late st Contact Info) Description 09/06/2021 Patient Outreach SEP [facility] [address] [place], [place] [phone] Julisa Kerr MD 100 [place] [address] Central Order Completion Outreach (Mammogram) Social History [...] Albin Blake MA documented in this encounter Progress Notes * Tessie Wood RN - 09/06/2021 5:02 PM EST SEP Order Completion Outcome Tracking Contact Attempt:: Inbound Mammogram Outcome:: Patient Declined Patient declined reason:: Not Interested * Rhina Bingham RN - 09/06/2021 4:50 PM EST SEP Order Completion Outcome Tracking Contact Attempt:: First Mammogram Outcome:: Left Voicemail to Return Call at [phone] documented in this encounter Plan of Treatment Upcoming Encounters Date Type Department Care Team (Late st Contact Info) Description 08/31/2024 8:30 AM EST Appointment [facility] [address] [place] [address] 10/25/2024 10:45 AM EST Office Visit [facility] R[facility]UMAT[facility] 651 [facility] [address] [place] [address] Jessica Cortes MD [address] [address] 01/25/2025 9:00 AM EDT Appointment [address] [place] [address] 05/09/2025 11:00 AM EDT Appointment [address] [place] [address] 05/09/2025 11:15 AM EDT Appointment [address] [place] [address] Susana Garay MD [address] [place] [address] [place] [address] documented as of this encounter Goals Goal Patient Goal Type Associated Problems Recent Progress Patient-Stated? 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, RN documented as of this encounter Visit Diagnoses Not on filedocumented in this encounter Care Teams Financial Planning Consultant Relationship Specialty Start Date End Date Julisa Kerr MD 100 [place] [address] PCP - General 02/22/11 Jessica Cortes MD [address] [address] Internal Medicine-Rheumatology 04/26/16 documented as of this encounter
--- OUTSIDE RECORDS SUMMARY | 2024-08-22 21:46 | XMS_ITS | Encounter Summary ---
Author Organization [place] [address] Care Team Providers Care Clinical Rehabilitation Liaison Name Role Phone Julisa Kerr MD Primary Care Provider [phone] Jessica Cortes MD Unavailable [phone] Reason for Visit * Reason Comments Rheumatoid Arthritis Encounter Details Date Type Department Care Team (Late st Contact Info) Description 10/02/2021 4:45 PM EST Telemedicine [facility] 100 [place] [address] Jhon Peña, JOSE 100 [place], [place] [phone] Rheumatoid arthritis involving multiple sites with positive [...] 3:41 PM EST Albin Levy MA * Is the person [...] Assessment Author No 11/22/2020 3:41 PM Albin Blaek MA documented as of this encounter Mental [...] x 5 days then stop. 30 Tablet 10/02/2021 2 documented in this encounter Progress Notes * Jhon Peña, JOSE - 10/02/2021 4:45 PM EST Patient presented today for routine care follow-up through a video visit. Patient has reviewed the terms and conditions of service as part of the registration for today's visit. A video visit does not replace a [id number] exam and further services may be necessary. We are conducting her video visit in a private space and this video visit is being conducted in accordance with state telehealth/video visit regulations. HPI: Presents virtually with shoulder, hands, feet, hip arthritis flare that has worsened over the last 2 weeks. Denies recent injury to sites. Review of Systems Musculoskeletal: Positive for arthralgias and gait problem. Exam: Constitutional: NAD, appropriately groomed. Appears comfortable. [...] tablet daily x 5 days then stop. Dispense: 30 Tablet; Refill: 0 documented in this encounter Plan of Treatment Upcoming Encounters Date Type Department Care Team (Late st Contact Info) Description 08/31/2024 8:30 AM EST Appointment [address] [address] 10/25/2024 10:45 AM EST Office Visit [facility] [address] [facility] [address] [place] [address] Jessica Cortes MD 651 [facility] Building 19 [place] [address] 01/25/2025 9:00 AM EDT Appointment [address] [place] [address] 05/09/2025 11:00 AM EDT Appointment [address] [place] [address] 05/09/2025 11:15 AM EDT Appointment [address] [place] [address] Susana Garay MD [address] [place] [address] [place] [address] documented as of this encounter Goals Goal [...] tablet daily x 5 days then stop. Reorder 08/28/2021 10/02/2021 documented as of this encounter Care Teams Clinical Rehabilitation Liaison Relationship Specialty Start Date End Date Julisa Kerr MD 100 [place] [address] PCP - General 02/22/11 Jessica Cortes MD 651 [facility] [address] [place] [phone] Internal Medicine-Rheumatology 04/26/16 documented as of this encounter
--- OUTSIDE RECORDS SUMMARY | 2024-08-22 21:46 | XMS_ITS | Encounter Summary ---
Author Organization [place] [address] Care Team Providers Care Military Personnel Specialist Name Role Phone Julisa Kerr MD Primary Care Provider [phone] Jessica Cortes MD Unavailable [phone] Reason for Visit * Reason Comments Pharmacy Rheumatology Management Encounter Details Date Type Department Care Team (Latest Contact Info) Description 03/29/2022 Specialty Pharmacy [facility] [address] [phone] Priti Valentine CPhT Pharmacy Rheumatology Management Social History Tobacco [...] Progress Notes * Priti Valentine CPhT - 03/29/2022 9:47 AM EDT [facility] Medication refill too soon until 04/06 * Porsche Joyce CPhT - 03/29/2022 9:47 AM EDT Specialty Pharmacy Refill Coordination Note Yuliet Trevino is a 51 y.o. female contacted today regarding refills of her Simponi. No answer, left voicemail to call [phone]. * Lynsey Andres CPhT - 03/29/2022 9:47 AM EDT Specialty Pharmacy Refill Coordination Note Yuliet Trevino is a 51 y.o. female contacted today regarding refills of her Simponi. No answer, left voicemail to call [phone]. * Nichole Villanueva CPhT - 03/29/2022 9:47 AM EDT Specialty Pharmacy Refill Coordination Note Yuliet Trevino is a 51 y.o. female contacted today regarding refills of her Simponi. No answer, left voicemail to call [phone]. * Aleyda Contreras CPhT - 03/29/2022 9:47 AM EDT Specialty Pharmacy Refill Coordination Note Yuliet Trevino is a 51 y.o. female contacted today regarding refills of her Simponi . Medication to be delivered by [facility] on 04/17. Spoke with patient. * Che Wells RPH - 03/29/2022 9:47 AM EDT [facility] - Care Plan and Refill Review Refill questions and refill history verified. Last assessment 02/19/22. No reassessment needed at this time. Che Wells RPH Specialty Pharmacist documented in this encounter Plan of Treatment Upcoming Encounters Date Type Department Care Team (Late st Contact Info) Description 08/31/2024 8:30 AM EST Appointment [facility] [address] [place] [address] 10/25/2024 10:45 AM EST Office Visit [facility] R[facility]UMATOLOG[facility] [address] [facility] [address] [place] [address] Jessica Cortes MD [address] [address] 01/25/2025 9:00 AM EDT Appointment [address] [place] [address] 05/09/2025 11:00 AM EDT Appointment [address] [place] [address] 05/09/2025 11:15 AM EDT Appointment [address] [place] [address] Susana Garay MD [address] [place] [address] [address] [phone] documented as of this encounter Goals Goal Patient Goal Type Associated Problems Recent Progress Patient-Stated? Author Maintain a healthy diet, exercise regularly and maintain an ideal body weight General Porsche Ashley, RN documented as of this encounter Visit Diagnoses Not on filedocumented in this encounter Care Teams Military Personnel Specialist Relationship Specialty Start Date End Date Julisa Kerr MD 100 [place] [address] PCP - General 02/22/11 Jessica Cortes MD [address] [address] Internal Medicine-Rheumatology 04/26/16 documented as of this encounter
--- OUTSIDE RECORDS SUMMARY | 2024-08-22 21:46 | XMS_ITS | Encounter Summary ---
Author Organization [place] [address] Care Team Providers Care Menhaden Vessel Pilot Name Role Phone Julisa Kerr MD Primary Care Provider [phone] Jessica Cortes MD Unavailable [phone] Encounter Details Date Type Department Care Team (Late st Contact Info) Description 11/16/2021 1:30 PM EST Telemedicine [facility] 100 [place] [address] Tommie Rebollar, DO [address] [place], [place] [phone] Rheumatoid arthritis involving multiple sites with positive rheumatoid factor (HCC) (Primary Dx) Social History Tobacco Use [...] Assessment Author No 11/22/2020 3:41 PM EST CamAlbin finnegan MA * Is the person blind or does he/she have serious difficulty seeing even when wearing glasses? Answer Date of Assessment Author No 11/22/2020 3:41 PM EST Albin Levy MA * Does this person [...] Date predniSONE (DELTASONE) 20 mg Oral Tablet Take 2 tabs daily for 4 days then 1 tab daily for 4 days 12 Tablet 11/16/2021 02/12/2022 documented in this encounter Progress Notes * Keturah Tommie, DO - 11/16/2021 1:30 PM EST Patient presented today for routine care follow-up through a video visit. Patient has reviewed the terms and conditions of service as part of the registration for today's visit. A video visit does not replace a [id number] exam and further services may be necessary. We are conducting her video visit in a private space and this video visit is being conducted in accordance with state telehealth/video visit regulations. HPI: Presents today for eval of rheumatoid arthritis. Requesting prednisone. States I am having a flare Review of Systems Constitutional: Negative for fatigue and fever. Respiratory: Negative for cough. Cardiovascular: Negative for chest pain. Gastrointestinal: Negative for abdominal pain. Musculoskeletal: Positive for arthralgias. Skin: Negative for rash. Neurological: Negative for headaches. Psychiatric/Behavioral: The patient is not nervous/anxious. Exam: Constitutional: NAD, appropriately groomed. Appears comfortable. [...] sites with positive rheumatoid factor (HCC) (Chronic) F/u per rheumatology - predniSONE (DELTASONE) 20 mg Oral Tablet; Take 2 tabs daily for 4 days then 1 tab daily for 4 days Dispense: 12 Tablet; Refill: 0 documented in this encounter Plan of Treatment Upcoming Encounters Date Type Department Care Team (Late st Contact Info) Description 08/31/2024 8:30 AM EST Appointment [address] [address] [place] [address] 10/25/2024 10:45 AM EST Office Visit [facility] 651 [facility] [address] [place] [address] Jessica Cortes MD [address] [place] [address] Building 19 [place] [address] 01/25/2025 9:00 AM EDT Appointment [address] [address] [place] [address] 05/09/2025 11:00 AM EDT Appointment [address] [address] [place] [address] 05/09/2025 11:15 AM EDT Appointment [address] [address] [place] [address] Susana Garay MD [address] [place] [address] [place] [address] documented as of this encounter Goals Goal Patient Goal Type Associated Problems Recent Progress Patient-Stated? Author Maintain a healthy diet, exercise regularly and maintain an ideal body weight General Porsche Ashley RN documented as of this encounter Visit Diagnoses Diagnosis 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 documented in this encounter Discontinued Medications Medication Sig Discontinue Reason Start Date End Da te predniSONE (DELTASONE) 10 mg Oral TabletIndications:Rheuma toid arthritis involving multiple sites with positive rheumatoid factor (HCC) Take 3 tablets daily x 5 days then 2 tablets daily x 5 days then 1 tablet daily x 5 days then stop. Cancelled by 10/02/2021 11/16/2021 predniSONE (DELTASONE) 10 mg Oral Tablet Take 3 tablets daily for 5 days, take 2 tablets daily for 5 days then take 1 tablet daily for 5 days. Then stop. Cancelled by 11/15/2021 11/16/2021 documented as of this encounter Care Teams Menhaden Vessel Pilot Relationship Specialty Start Date End Date Julisa Kerr MD [address] [place] [address] PCP - General 02/22/11 Jessica Cortes MD [address] [address] Internal Medicine-Rheumatology 04/26/16 documented as of this encounter
--- OUTSIDE RECORDS SUMMARY | 2024-08-22 21:46 | XMS_ITS | Encounter Summary ---
Author Organization [place] [address] Care Team Providers Care Storeroom Supervisor Name Role Phone Julisa Kerr MD Primary Care Provider [phone] Jessica Cortes MD Unavailable [phone] Reason for Visit * Reason Comments Pharmacy Rheumatology Management Simponi Encounter Details Date Type Department Care Team (Latest Contact Info) Description 01/23/2022 Specialty Pharmacy [facility] [address] [id number] Lauren Led[facility] Rheumatology Management (Simponi) Social History Tobacco [...] factor (HCC) Subcutaneous (Inject under the skin) 0.5 mL every 30 days. 0.5 mL 5 01/24/2022 documented in this encounter Progress Notes * Lauren Ledesma RPH - 01/23/2022 10:13 AM EDT [facility] Prescription received for Simponi (50mg/0.5mL). Prescription requires prior authorization. Will route to pharmacist for clinical review. Lauren Ledesma PharmD Specialty Pharmacist * Lauren Ledesma RPH - 01/23/2022 10:13 AM EDT Specialty Pharmacy - Rheumatology Clinical Review Yuliet Trevino is a 51 y.o. female. Rheumatology: Patient was prescribed golimumab (Simponi) 50mg SQ every 30 day(s) for rheumatoid arthritis with positive rheumatoid factor(M05.79). Allergies Allergen Reactions ??? Orencia [Abatacept (With Maltose)] Swelling and Other (See Comments) Facial tingling/ numbness ??? Enbrel [Etanercept] Itching ??? Humira [Adalimumab] Itching ??? Mobic [Meloxicam] Hives ??? Xeljanz [Tofacitinib] Itching Risk/ Status: Hysterectomy Test: No results found for: PREGTESTUR Last TB test: Lab Results Component Value Date QUANTIFERON Negative 03/21/2020 ] Last Hepatitis BsAg: Lab Results Component [...] 01/16/2022 EOSPCT 3.7 01/16/2022 BASOPCT 0.9 01/16/2022 Rapid 3: 24.0 Current Outpatient Medications Medication Sig ??? amitriptyline TAKE 1 TABLET BY MOUTH EVERY DAY AT NIGHT ??? busPIRone TAKE 1 TAB BY MOUTH 2 TIMES DAILY NEEDED. ??? cyanocobalamin INJECT 1ML INTO THE MUSCLE EVERY MONTH ??? fluticasone propionate 1 Jewell by Nasal route daily. ??? folic acid TAKE 1 TABLET BY MOUTH EVERY DAY ??? Simponi Subcutaneous (Inject under the skin) 0.5 mL every 30 days. ??? leflunomide Take 1 Tablet by mouth daily. ??? loperamide Take 1 Cap by mouth 4 times daily as needed for Diarrhea. ??? methotrexate sodium Subcutaneous (Inject under the skin) 0.6 mL once a week. ??? predniSONE Take 2 tabs daily for 4 days then 1 tab daily for 4 days (Patient not taking: Reported on 01/23/2022) ??? predniSONE Take 1 Tablet by mouth daily. ??? ProAir HFA INHALE 2 PUFFS BY MOUTH EVERY 6 HOURS NEEDED FOR WHEEZE ??? sertraline TAKE 1/2 TABLET BY MOUTH DAILY FOR 7 DAYS, THEN 1 TABLET BY MOUTH THEREAFTER. ??? terbinafine HCL TAKE 1 TABLET BY MOUTH EVERY DAY FOR 2 WEEKS Previous medications utilized: Adalimumab (Humira), Etanercept (Enbrel), Abatacept (Orencia), Tocilizumab (Actemra), Tofacitinib XR (Xeljanz XR), Sarilumab (Kevzara), Infliximab (Remicade), Methotrexate (Trexall) and Leflunomide (Arava) Clinical Impression: Clinically appropriate. Lauren Ledesma [facility] Specialty Pharmacist * Renee Miller CPhT - 01/23/2022 10:13 AM EDT [facility] Submitted PA for Simponi to [employer] insurance via [employer] ([employer] [id number]). Will follow up on 01/25. * Jacey iMller CPhT - 01/23/2022 10:13 AM EDT [facility] Received faxed PA approval for Simponi. It has been approved for 01/23/22 to 07/24/22. Patient is able to fill at [facility]. Copay is $0. No answer, left voicemail to call [phone]. Pt has filled biologics previously at [facility] and [facility]. Unsure if she'd like us to proceed withfill or transfer. * Lynsey Andres CPhT - 01/23/2022 10:13 AM EDT [facility] Patient called back. She requested that the script be sent to [facility]. Will route to pharmacist for transfer. * Violette Pickard [facility] - 01/23/2022 10:13 AM EDT [facility] Prescription for Simponi was transferred to [facility] due to patient preference. Patient will be disenrolled from specialty pharmacy service once patient confirms receipt of medication. Violette Pickard [facility] Specialty Pharmacist * Steph Ballard CPhT - 01/23/2022 10:13 AM EDT [facility] Contacting patient to follow up on Simponi from [facility]. [employer] message. Patient will be disenrolled from specialty services. * Elio Bond CPhT - 01/23/2022 10:13 AM EDT Please screen for funding * Renee Miller CPhT - 01/23/2022 10:13 AM EDT [facility] Funding Support Management Calling patient to screen for funding support. No answer, left voicemail to call [phone]. [facility] New prescription for Simponi requested for funding purposes. Will complete benefits investigation once prescription is received. * Jaxon Noel RPH - 01/23/2022 10:13 AM EDT [facility] Prescription received for Simponi. Jaxon Noel PharmD, [facility] Specialty Pharmacist * Qi Dunaway CPhT - 01/23/2022 10:13 AM EDT [facility] Funding Support Management Calling patient to screen for funding support. No answer, left voicemail to call [phone]./[employer] message * Jessica Cortes MD - 01/23/2022 10:13 AM EDT Patient called the office today stating she can not afford Simponi due to high co pay. You mentioned that her co pay is $0 if filled at [facility]. Has something changed or is this still the case. * Jacey Miller CPhT - 01/23/2022 10:13 AM EDT [facility] Cost of SImponi injection at [facility] is $0. When pt returns call, please ask if she'd like to coordinate fill with [facility]. * Qi Dunaway CPhT - 01/23/2022 10:13 AM EDT [facility] Funding Support Management Called patient to see if she would like to fill at [facility] as copay is $0.00 No answer, left voicemail to call [phone]. * Angela Ledbetter CPhT - 01/23/2022 10:13 AM EDT Specialty Pharmacy First Fill Coordination Yuliet Federico Jerod Trevino is a 51 y.o. female contacted today regarding the first fill of her Simponi. Medication to be picked up on 02/15. Notified patient that a pharmacist will be reaching out to perform an initial assessment prior to therapy initiation. Spoke with patient. documented in this encounter Miscellaneous Notes * Addendum Note - Violette Pickard RPH - 01/23/2022 10:13 AM EDT Addended by: VIOLETTE PICKARD on: 01/24/2022 04:58 PM Modules accepted: Orders documented in this encounter Plan of Treatment Upcoming Encounters Date Type Department Care Team (Late st Contact Info) Description 08/31/2024 8:30 AM EST Appointment [address] [address] [place] [address] 10/25/2024 10:45 AM EST Office Visit [facility] [address] [place] [address] Jessica Cortes MD [address] [facility] Building [address] [place] [address] 01/25/2025 9:00 AM EDT Appointment [address] [address] [place] [address] 05/09/2025 11:00 AM EDT Appointment [facility] [address] [place] [address] 05/09/2025 11:15 AM EDT Appointment [facility] [address] [place] [address] Susana Garay MD [address] [place] [address] [place] [address] documented as of this encounter [...] factor (HCC) Subcutaneous (Inject under the skin) 0.5 mL every 30 days. Reorder 01/23/2022 01/24/2022 documented as of this encounter Care Teams Storeroom Supervisor Relationship Specialty Start Date End Date Julisa Kerr MD [address] [place], [place] [id number] PCP - General 02/22/11 Jessica Cortes MD [address] [place] [id number] Internal Medicine-Rheumatology 04/26/16 documented as of this encounter
--- OUTSIDE RECORDS SUMMARY | 2024-08-22 21:46 | XMS_ITS | Encounter Summary ---
Author Organization [place] [address] Care Team Providers Care Supervisor Seaming Name Role Phone Julisa Kerr MD Primary Care Provider [phone] Jessica Cortes MD Unavailable [phone] Encounter Details Date Type Department Care Team (Latest Contact Info) Description 01/16/2022 1:05 PM EDT - 01/16/2022 11:59 PM EDT Hospital Encounter [facility] [address] [place] [address] Rheumatoid arthritis involving multiple sites [...] Albin Blake MA documented in this encounter Discharge Disposition Disposition Code Departure Means Destination Home or Self Care documented in this encounter Plan of Treatment Upcoming Encounters Date Type Department Care Team (Late st Contact Info) Description 08/31/2024 8:30 AM EST Appointment [address] [place] [address] 10/25/2024 10:45 AM EST Office Visit [facility] [address] [place] [address] Jessica Cortes MD [address] [facility] [facility] Building [address] [place] [address] 01/25/2025 9:00 AM EDT Appointment [address] [place] [address] 05/09/2025 11:00 AM EDT [address]ointment [address] [place] [address] 05/09/2025 11:15 AM EDT Appointment [facility] [address] [place] [address] Susana Garay MD [address] [place] [address] [place] [address] documented as of this encounter Goals Goal Patient Goal Type Associated Problems Recent Progress Patient-Stated? Author Maintain a healthy diet, exercise regularly and maintain an ideal body weight General Porsche Ashley RN documented as of this encounter Procedures Procedure Name Priority Date/Time Associated Diagnosis Comments SEDIMENTATION RATE AUTOMATED Routine 01/16/2022 1:09 PM EDT Rheumatoid arthritis involving multiple sites with positive rheumatoid factor (HCC) Therapeutic drug monitoring CBC WITH DIFF Routine 01/16/2022 1:09 PM EDT Rheumatoid arthritis involving multiple sites with positive rheumatoid factor (HCC) Therapeutic drug monitoring C-REACTIVE PROTEIN Routine 01/16/2022 1: 09 PM EDT Rheumatoid arthritis involving multiple sites with positive rheumatoid factor (HCC) Therapeutic drug monitoring COMPREHENSIVE METABOLIC PANEL Routine 01/16/2022 1:09 PM EDT Rheumatoid arthritis involving multiple sites with positive rheumatoid factor (HCC) Therapeutic drug monitoring documented in this encounter Results * (ABNORMAL) SEDIMENTATION RATE AUTOMATED (01/16/2022 1:09 PM EDT) Sed Rate 56(H) 0 - 30 mm/hr 01/16/2022 8:28 PM EDT [facility] Blood Venipuncture / Unknown 01/16/2022 1:09 PM EDT 01/16/2022 1:09 PM EDT us Jessica Cortes MD HEMATOLOGY ORDERABLES Fin al Result [facility] [address] [place] [address] * (ABNORMAL) C-REACTIVE PROTEIN (01/16/2022 1:09 PM EDT) CRP 156.90(H) <=5.00 mg/L 01/16/2022 8:00 PM EDT [facility] Blood Venipuncture / Unknown 01/16/2022 1:09 PM EDT 01/16/2022 1:09 PM EDT Jessica Cortes MD CHEMISTRY ORDERABLES Siobhan sivan Result [facility] [address] [facility] , [place] [address] * COMPREHENSIVE METABOLIC PANEL (01/16/2022 1:09 PM EDT) Sodium 140 136 - 145 mmol/L 01/16/2022 8:00 PM EDT [facility] Potassium 3.8 3.5 - 5.0 mmol/L 01/16/2022 8:00 PM EDT [facility] Chloride 103 98 - 107 mmol/L 01/16/2022 8:00 PM EDT [facility] Total CO2 24 22 - 29 mmol/L 01/16/2022 8:00 PM EDT [facility] Anion Gap 13 7 - 16 mmol/L 01/16/2022 8:00 PM EDT [facility] Calcium 9.6 8.6 - 10.4 mg/dL 01/16/2022 8:00 PM EDT [facility] Glucose Lvl 85 74 - 100 mg/dL 01/16/2022 8:00 PM EDT [facility] BUN 11 6 - 20 mg/dL 01/16/2022 8:00 PM EDT [facility] Creatinine 0.64 0.51 - 1.30 mg/dL 01/16/2022 8:00 PM EDT [facility] Albumin 3.8 3.5 - 5.2 gm/dL 01/16/2022 8:00 PM EDT [facility] Total Protein 7.0 6.4 - 8.3 gm/dL 01/16/2022 8:00 PM EDT [facility] Bili Total 0.3 0.1 - 1.3 mg/dL 01/16/2022 8:00 PM EDT [facility] ALT 11 <=41 U/L 01/16/2022 8:00 PM EDT [facility] AST 15 <=40 U/L 01/16/2022 8:00 PM EDT [facility] Alk Phos 105 36 - 123 U/L 01/16/2022 8:00 PM EDT [facility] eGFR (CKD-EPIcr 2020) 106 >=60 mL/min/1.7 3 m2 01/16/2022 8:00 PM EDT [facility] Comment:Estimated GFR was ca lculated using the CKD-EPIcr (2020) equation refit without race. The equation is recommended by the National Kidney Foundation - [place] [employer] of Nephrology Task Force. Blood Venipuncture / Unknown 01/16/2022 1:09 PM EDT 01/16/2022 1:09 PM EDT us Jessica Cortes MD CHEMISTRY ORDERABLES Siobhan finnegan Result [facility] [address] [facility], [address] [place] [phone] [facility] [address] [place], [place] [phone] * (ABNORMAL) CBC WITH DIFF (01/16/2022 1:09 PM EDT) [facility] Signature WBC 9.0 3.7 - 10.3 x10(3)/mcL 01/16/2022 7:43 PM EDT [facility] RBC 4.48 3.90 - 5.20 x10(6)/mcL 01/16/2022 7:43 PM EDT [facility] Hgb 11.8 11.2 - 15.7 g/dL 01/16/2022 7:43 PM EDT [facility] Hct 38.7 34.0 - 45.0 % 01/16/2022 7:43 PM EDT [facility] MCV 86.4 80.0 - 100.0 fL 01/16/2022 7:43 PM EDT [facility] MCH 26.3 26.0 - 34.0 pg 01/16/2022 7:43 PM EDT [facility] MCHC 30.5(L) 30.7 - 35.5 g/dL 01/16/2022 7:43 PM EDT [facility] RDW 14.1 <=14.9 % 01/16/2022 7:43 PM EDT [facility] Platelet 432(H) 155 - 369 x10(3)/mcL 01/16/2022 7:43 PM EDT [facility] MPV 11.1 8.8 - 12.5 fL 01/16/2022 7:43 PM EDT [facility] Neut Percent 63.6 % 01/16/2022 7:43 PM EDT [facility] Comment:Neutrophils equals s egs plus bands Imm Gran% 0.7 % 01/16/2022 7:43 PM EDT [facility] Comment:Automated count of m etamyelocytes, myelocytes and promyelocytes. Lymph Percent 15.2 % 01/16/2022 7:43 PM EDT [facility] [place] Percent 15.9 % 01/16/2022 7:43 PM EDT [facility] Eos Percent 3.7 % 01/16/2022 7:43 PM EDT [facility] Baso Percent 0.9 % 01/16/2022 7:43 PM EDT [facility] Neut # 5.7 1.6 - 6.1 x10(3)/mcL 01/16/2022 7:43 PM EDT [facility] Comment:Neutrophils equals s egs plus bands IMMGRAN# 0.1 0.0 - 0.1 x10(3)/mcL 01/16/2022 7:43 PM EDT [facility] Comment:Automated count of m etamyelocytes, myelocytes and promyelocytes. An absolute IG <0.1 is reported as 0.0. Lymph # 1.4 1.2 - 3.9 x10(3)/mcL 01/16/2022 7:43 PM EDT [facility] [place] # 1.4(H) 0.3 - 0.9 x10(3)/mcL 01/16/2022 7:43 PM EDT [facility] Eos# 0.3 0.0 - 0.5 x10(3)/mcL 01/16/2022 7:43 PM EDT [facility] Baso # 0.1 0.0 - 0.1 x10(3)/mcL 01/16/2022 7:43 PM EDT [facility] Blood Venipuncture / Unknown 01/16/2022 1:09 PM EDT 01/16/2022 1:09 PM EDT us Jessica Cortes MD HEMATOLOGY ORDERABLES Fin al Result [email or web address] [address] [facility] , [place] [address] documented in this encounter Visit Diagnoses Diagnosis Rheumatoid arthritis involving multiple sites with positive rheumatoid factor (HCC) Therapeutic drug monitoring Encounter for therapeutic drug monitoring documented in this encounter Care Teams Supervisor Seaming Relationship Specialty Start Date End Date Julisa Kerr MD [address] [place] [address] PCP - General 02/22/11 Jessica Cortes MD [address] [phone] Internal Medicine-Rheumatology 04/26/16 documented as of this encounter
--- OUTSIDE RECORDS SUMMARY | 2024-08-22 21:46 | XMS_ITS | Encounter Summary ---
Author Organization [place] [address] Care Team Providers Care Out Of Town Collection Clerk Name Role Phone Julisa Kerr MD Primary Care Provider [phone] Jessica Cortes MD Unavailable [phone] Reason for Visit * Reason Onset Date Comments Symptom Call 08/25/2021 arthritis flare up , hands, feet (right foot mostly) Encounter Details Date Type Department Care Team (Late st Contact Info) Description 08/25/2021 Telephone [facility] [address] [place] [address] Julisa Kerr MD [address] [place] [address] Symptom Call ( arthritis flare up , hands, feet (right foot mostly) ) Social History Tobacco Use Types Packs/Day [...] Albin Blake MA documented in this encounter Miscellaneous Notes * Telephone Encounter - Lindsey Swann RMA - 08/31/2021 3:54 PM EST [facility] patient * Telephone Encounter - Luciano Schneider MA - 08/25/2021 10:33 AM EST Called to set something up for Friday, no availability today. No answer. Unable to leave message * Telephone Encounter - Miri Wlide - 08/25/2021 8:54 AM EST Symptoms Call Who is reporting the symptoms: Patient What symptom(s) is the patient experiencing: arthritis flare up , hands, feet (right foot mostly) How long have symptoms been present: 3 day(s) ago Has the patient been seen for this: No If no, was an appointment/E-Visit offered/suggested? Yes, Willing to do a VV if needed. Has the patient tried anything to relieve the symptoms and did it help: Yes Pt advised is taking her reg medication treatment for this and is not getting any relief If pain, what level on scale 1-10 (10 being the greatest): 9 Desired Outcome: Rx, Prednisone Pharmacy & Location [facility] Additional Notes: documented in this encounter Plan of Treatment Upcoming Encounters Date Type Department Care Team (Late st Contact Info) Description 08/31/2024 8:30 AM EST Appointment [address] [place] [address] 10/25/2024 10:45 AM EST Office Visit [facility] [address] [facility] [address] [place] [address] Jessica Cortes MD [address] [facility] Building [address] [place] [address] 01/25/2025 9:00 AM EDT Appointment [address] [place] [address] 05/09/2025 11:00 AM EDT Appointment [address] [place] [address] 05/09/2025 11:15 AM EDT Appointment [address] [place] [address] Susana Garay MD [address] [place] [address] [place] [address] documented as of this encounter Goals Goal Patient Goal Type Associated Problems Recent Progress Patient-Stated? 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, RN documented as of this encounter Visit Diagnoses Not on filedocumented in this encounter Care Teams Out Of Town Collection Clerk Relationship Specialty Start Date End Date Julisa Kerr MD [address] [place] [address] PCP - General 02/22/11 Jessica Cortes MD [address] [place] [address] Internal Medicine-Rheumatology 04/26/16 documented as of this encounter
--- OUTSIDE RECORDS SUMMARY | 2024-08-22 21:46 | XMS_ITS | Encounter Summary ---
Author Organization [place] [address] Care Team Providers Care Jigger Machine Operator Name Role Phone Julisa Kerr MD Primary Care Provider [phone] Jessica Cortes MD Unavailable [phone] Encounter Details Date Type Department Care Team (Late st Contact Info) Description 12/20/2021 4:15 PM EDT Telemedicine [address] [address] Thierno Toth MD [address] [place] [address] Rheumatoid arthritis involving multiple sites with positive [...] Tablet by mouth daily. 30 Tablet 2 12/20/2021 02/12/2022 documented in this encounter Progress Notes * Thierno Toth MD - 12/20/2021 4:15 PM EDT Patient presented today for routine care follow-up through a video visit. Patient has reviewed the terms and conditions of service as part of the registration for today's visit. A video visit does not replace a bmel-kc-idia exam and further services may be necessary. We are conducting her video visit in a private space and this video visit is being conducted in accordance with state telehealth/video visit regulations. HPI: Continues to have arthritis pain, very busy every day. Taking care of her as well. No longer taking methotrexate. Been on Humira, Enbrel, Arava and others in the past. Review of Systems Constitutional: Negative for fever. [...] rheumatoid factor (HCC) (Chronic) - predniSONE (DELTASONE) 5 mg Oral Tablet; Take 1 Tablet by mouth daily. Dispense: 30 Tablet; Refill: 2 Advised to follow up with rheum on adjusting the medication, replacing with other meds, and monitoring watcher automat long goods for side effects. documented in this encounter Plan of Treatment Upcoming Encounters Date Type Department Care Team (Late st Contact Info) Description 08/31/2024 8:30 AM EST Appointment [address] [place] [address] 10/25/2024 10:45 AM EST Office Visit [facility] [address] [place] [address] Jessica Cortes MD [address] [facility] Building [address] [place] [address] 01/25/2025 9:00 AM EDT Appointment [address] [address] [place] [address] 05/09/2025 11:00 AM EDT Appointment [facility] [address] [place] [address] 05/09/2025 11:15 AM EDT Appointment [facility] [place] [address] Susana Garay MD [address] [place] [address] [place] [address] documented as of this encounter Goals Goal Patient Goal Type Associated Problems Recent Progress Patient-Stated? 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, RN documented as of this encounter Visit Diagnoses Diagnosis 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 documented in this encounter Care Teams Jigger Machine Operator Relationship Specialty Start Date End Date Julisa Kerr MD [address] [place], [place] [id number] PCP - General 02/22/11 Jessica Cortes MD 651 [facility] 19 [place] [address] Internal Medicine-Rheumatology 04/26/16 documented as of this encounter
--- OUTSIDE RECORDS SUMMARY | 2024-08-22 21:46 | XMS_ITS | Encounter Summary ---
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) (Primary Dx) [...] Reading Time Taken Comments Blood Pressure 124/70 02/10/2022 10:26 AM EDT Pulse 78 02/10/2022 10:26 AM EDT Temperature 36.6 ??C (97.8 ??F) 02/10/2022 10:26 AM E DT Respiratory Rate 18 02/10/2022 10:26 AM EDT Oxygen Saturation 98% 02/10/2022 10:26 AM EDT Inhaled Oxygen Concentration - - Weight 56.2 kg (124 lb) 02/10/2022 10:26 AM EDT Height 157.5 cm (5' 2 ) 02/10/2022 10:26 AM EDT Body Mass Index 22.68 02/10/2022 10:26 AM EDT documented in this encounter Functional [...] 1 pills x 3 days 66 Tablet 02/10/2022 04/02/2022 documented in this encounter Progress Notes * Kasandra Daniel MD - 02/10/2022 10:30 AM EDT Assessment Diagnoses and all orders for this visit: 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 6 pills x 3days, 5 pills x 3 days, 4 pills x 3 days, 3 pills x 3 days, 2 pills x 3 days, 1 pills x 3 days Dispense: 66 Tablet; Refill: 0 Progress Note: Vitals: 02/10/22 1026 BP: 124/70 BP Location: Left arm Patient Position: Sitting Pulse: 78 Resp: 18 Temp: 97.8 ??F (36.6 ??C) TempSrc: Oral SpO2: 98% Weight: 124 lb (56.2 kg) Height: 5' 2 (1.575 m) SUBJECTIVE: Chief Complaint Patient presents with ??? Back Pain ??? Joint Swelling HPI: rheumatoid is acting up feels inflammed, pain in her right lung, hurts to take deep breath Review of Systems HENT: Negative for congestion. Respiratory: Negative for cough. Cardiovascular: Negative for chest pain. Musculoskeletal: Positive for arthralgias and myalgias. OBJECTIVE: Physical Exam Vitals and nursing note reviewed. Constitutional: Appearance: Normal appearance. She is normal weight. HENT: Head: Normocephalic. Pulmonary: Effort: Pulmonary effort is normal. Breath sounds: Normal breath sounds. No wheezing. Musculoskeletal: General: Tenderness present. Neurological: Mental Status: She is alert. documented in this encounter Plan of Treatment Upcoming Encounters Date Type Department Care Team (Late st Contact Info) Description 08/31/2024 8:30 AM EST Appointment [place] [address] [place] [address] 10/25/2024 10:45 AM EST Office Visit [facility] [address] [place] [address] Jessica Cortes MD [address] [facility] [address] [place] [address] 01/25/2025 9:00 AM EDT Appointment [address] [place] [address] 05/09/2025 11:00 AM EDT Appointment [address] [place] [address] 05/09/2025 11:15 AM EDT Appointment [address] [place] [address] Susana Garay MD [address] [place] [address] [place] [address] documented as of this encounter Goals Goal Patient Goal Type Associated Problems Recent Progress Patient-Stated? 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 RN documented as of this encounter Visit Diagnoses Diagnosis Rheumatoid arthritis involving both knees with positive rheumatoid factor (HCC)- Primary documented in this encounter Administered Medications Inactive Administered Medications - up to 1 most recent administrations Medication Order MAR Action Action Date Dose Rate Site ketorolac (TORADOL) injection 60 mg 60 mg, Intramuscular, ONCE, 1 dose, On 02/10/22 at 1045, Maximum IV dose is 30mg, Dx: 1. Rheumatoid arthritis involving both knees with positive rheumatoid factor (HCC)Indications:Rheumat oid arthritis involving both knees with positive rheumatoid factor (HCC) Given 02/10/2022 10:45 AM EDT 60 mg Right upper gluteus methylPREDNISolone acetate (DEPO-Medrol) injection 80 mg 80 mg, Intramuscular, ONCE, 1 dose, On 02/10/22 at 1045, Dx: 1. Rheumatoid arthritis involving both knees with positive rheumatoid factor (HCC)Indications:Rheumat oid arthritis involving both knees with positive rheumatoid factor (HCC) Given 02/10/2022 10:45 AM EDT 80 mg Left upper gluteus documented in this encounter Care Teams Plant Electrical Engineer Relationship Specialty Start Date End Date Julisa Kerr MD [address] [place] [address] PCP - General 02/22/11 Jessica Cortes MD [address] [facility] [address] [place] [address] Internal Medicine-Rheumatology 04/26/16 documented as of this encounter
--- OUTSIDE RECORDS SUMMARY | 2024-08-22 21:46 | XMS_ITS | Encounter Summary ---
Author Organization [facility] [place] [address] Care Team Providers Care Poultry Farmworker Name Role Phone Julisa Kerr MD Primary Care Provider [phone] Jessica Cortes MD Unavailable [phone] Encounter Details Date Type Department Care Team (Latest Contact Info) Description 07/30/2021 Travel Social History Tobacco Use Types Packs/Day [...] Description 08/31/2024 8:30 AM EST [address]ointment [address] [place] [address] 10/25/2024 10:45 AM EST Office Visit [facility] [address] [place] [address] Jessica Cortes MD [address] [facility] Building [address] [place] [address] 01/25/2025 9:00 AM EDT [address]ointment [address] [place] [address] 05/09/2025 11:00 AM EDT [address]ointment [address] [place] [address] 05/09/2025 11:15 AM EDT Appointment [address] [place] [address] Susana Garay MD [address] [place] [address] [address] [place] [phone] documented as of this encounter Goals Goal Patient Goal Type Associated Problems Recent Progress Patient-Stated? Author Maintain a healthy diet, exercise regularly and maintain an ideal body weight General Porsche Ashley, RN documented as of this encounter Visit Diagnoses Not on filedocumented in this encounter Care Teams Poultry Farmworker Relationship Specialty Start Date End Date Julisa Kerr MD [address] [place] [phone] PCP - General 02/22/11 Jessica Cortes MD [address] [place] [id number] Internal Medicine-Rheumatology 04/26/16 documented as of this encounter
--- OUTSIDE RECORDS SUMMARY | 2024-08-22 21:46 | XMS_ITS | Encounter Summary ---
Author Organization [place] [address] Care Team Providers Care Art Handler Name Role Phone Julisa Kerr MD Primary Care Provider [phone] Jessica Cortes MD Unavailable [phone] Reason for Referral * DEXA (Routine) - Closed Specialty Diagnoses / Procedures Referred By Contciarra t Referred To Contact Radiology Diagnoses Post-menopausal Procedures DX BONE DENSITY AXIAL SKELETON Julisa Kerr MD [address] [place] [address] Phone: tel: fax: Referral ID Status Reason Start Date Expiration Date Visits Re quested Visits Authorized [id number] Closed 02/12/2022 02/12/2023 1 1 Reason for Visit * Reason Comments Rheumatoid Arthritis Annual Exam Encounter Details Date Type Department Care Team (Late st Contact Info) Description 02/12/2022 2:15 PM EDT Office Visit [facility] [address] [place], [place] [phone] Julisa Kerr MD [address] [place] [address] Annual physical exam (Primary Dx); Post-menopausal; Vitamin B 12 deficiency; Rheumatoid arthritis involving multiple sites with positive rheumatoid factor (HCC); Immunocompromised patient (HCC); Chronic pain syndrome; DDD (degenerative disc disease), cervical; Cervical radiculopathy Social History Tobacco Use Types Packs/Day Years [...] Sign Reading Time Taken Comments Blood Pressure 122/84 02/12/2022 2:18 PM EDT Pulse - - Temperature 36.3 ??C (97.3 ??F) 02/12/2022 2:18 PM ED T Respiratory Rate - - Oxygen Saturation - - Inhaled Oxygen Concentration - - Weight 57.2 kg (126 lb) 02/12/2022 2:18 PM EDT Height 157.5 cm (5' 2 ) 02/12/2022 2:18 PM EDT Body Mass Index 23.05 02/12/2022 2:18 PM EDT documented in this encounter Functional [...] Refills Last Filled Start Date End Date varicella-zoster gE-AS01B, PF, (SHINGRIX, PF,) 50 mcg/0.5 mL IM Suspension for Reconstitution Inject 0.5 mL into the muscle once for 1 dose. Inject 0.5ml intramuscularly and repeat with one dose 2 to 6 months later 1 Each 1 2 02/13/20 22 HYDROcodone-acetami nophen (NORCO) 5-325 mg Oral TabletIndications:R heumatoid arthritis involving multiple sites with positive rheumatoid factor (HCC),Cervical radiculopathy Take 1 Tablet by mouth every 4 hours as needed for Acute Pain (R52) or Acute Pain > 3 Days Medically Necessary (R52) for up to 3 days. 20 Tablet 2 02/16/20 22 DULoxetine (CYMBALTA) 30 mg Oral Capsule, Delayed Release(E.C.)Indica tions:Chronic pain syndrome,DDD (degenerative disc disease), cervical,Cervical radiculopathy Take 1 Capsule by mouth daily. 30 Capsule 11 2 04/24/20 22 cyanocobalamin 1,000 mcg/mL Inj SolutionIndications :Vitamin B 12 deficiency INJECT 1ML INTO THE MUSCLE EVERY MONTH 1 mL 11 2 02/18/20 23 cyanocobalamin 1,000 mcg/mL Inj Solution INJECT 1ML INTO THE MUSCLE EVERY MONTH 1 mL 3 2 02/13/20 22 documented in this encounter Progress Notes * Julisa Kerr MD - 02/12/2022 2:15 PM EDT Vitals: 02/12/22 1418 BP: 122/84 Temp: 97.3 ??F (36.3 ??C) Weight: 126 lb (57.2 kg) Height: 5' 2 (1.575 m) SUBJECTIVE: Chief Complaint Patient presents with ??? Rheumatoid Arthritis ??? Annual Exam HPI: Rheumatoid Arthritis This is a chronic problem. The current episode started more than 1 year ago. The problem occurs constantly. The problem has been gradually worsening since onset. Pertinent negatives include no abdominal pain or fever. Abstract This is a new problem. The current episode started today. The problem occurs constantly. The problem has been unchanged. Associated symptoms include arthralgias, joint swelling and neck pain. Pertinent negatives include no abdominal pain, coughing, fatigue, fever or rash. Pt is here today for her annual exam, RA, and to have her back looked at. Well Adult: Subjective Ms. Newsome is a 51 y.o. female here for an annual wellness visit. Diet: Healthy Exercise: Daily Activities of Daily Living: Functional Level: Self-care ADL Limitations: none Social Interaction Screen: Do you have concerns about issues that may impact social interaction such as developmental or behavioral/mental health conditions? no Health Maintenance Due Topic Date Due ??? Annual Wellness Exam 11/22/2021 Health Maintenance Topic Date Due ??? Annual Wellness Exam 11/22/2021 ??? DTaP/TDaP/Td (1 - Tdap) 02/12/2023 (Originally 1989) ??? Zoster (1 of 2) 02/12/2023 (Originally 2020) ??? Cervical Cancer Screening 02/12/2023 (Originally 2000) ??? COVID-19 Vaccine (1) 02/12/2023 (Originally 1975) ??? Breast Cancer Screening 02/12/2023 (Originally 2020) ??? Influenza Vaccine (Season Ended) 2022 ??? Colon Cancer Screening 12/08/2023 Immunization History Administered Date(s) Administered ??? Influenza Vaccine Quadrivalent 07/01/2017 ??? Influenza Vaccine, Unspecified Formulation 06/19/2018, 07/16/2019 ??? PPD Test 05/13/2013, 07/21/2014, 09/18/2015, 03/10/2017, 05/26/2018 ??? Pneumococcal Conjugate Vaccine 13 Valent 12/13/2016 ??? Pneumococcal Polysaccharide 23 Valent 03/17/2017 Patient Active Problem List Diagnosis ??? PRAVEEN (stress urinary incontinence, female) ??? Raynaud's phenomenon ??? Rheumatoid arthritis involving multiple sites with positive rheumatoid factor (HCC) ??? Osteopenia ??? Immunocompromised patient (HCC) ??? Vitamin B 12 deficiency ??? Positive BRET (antinuclear antibody) ??? Neck pain Past Medical History: Diagnosis Date ??? Arthritis Past Surgical History: Procedure Laterality Date ??? HYSTEROSCOPY ??? BARBIE AND BSO 2001 Allergies Allergen Reactions ??? Orencia [Abatacept (With Maltose)] Swelling and Other (See Comments) Facial tingling/ numbness ??? Enbrel [Etanercept] Itching ??? Humira [Adalimumab] Itching ??? Mobic [Meloxicam] Hives ??? Xeljanz [Tofacitinib] Itching Current Outpatient Medications on File Prior to Visit Medication Sig Dispense Refill ??? folic acid (FOLVITE) 1 mg Oral Tablet TAKE 1 TABLET BY MOUTH EVERY DAY 30 Tablet 11 ??? leflunomide (ARAVA) 10 mg Oral Tablet Take 1 Tablet by mouth daily. 30 Tablet 1 ??? methotrexate sodium 25 mg/mL Inj Solution Subcutaneous (Inject under the skin) 0.6 mL once a week. 4 mL 1 ??? predniSONE (DELTASONE) 10 mg Oral Tablet Take 1 Tablet by mouth daily. 6 pills x 3days, 5 pillsx 3 days, 4 pills x 3 days, 3 pills x 3 days, 2 pills x 3 days, 1 pills x 3 days 66 Tablet 0 ??? PROAIR HFA 90 mcg/actuation Inhl HFA Aerosol Inhaler INHALE 2 PUFFS BY MOUTH EVERY 6 HOURS NEEDED FOR WHEEZE 8.5 Each 3 No current facility-administered medications on file prior to visit. Social History Socioeconomic History ??? Marital status: [...] ??? Arthritis Father ??? Arthritis Paternal Grandmother No exam data present No results found for this visit on 02/12/22. Patient Care Team: Julisa Kerr MD as PCP - General Jessica Cortes MD (Internal Medicine-Rheumatology) Lab Results Component Value Date WBC 9.0 01/16/2022 HGB 11.8 01/16/2022 HCT 38.7 01/16/2022 PLT 432 (H) 01/16/2022 CHOLESTEROL 163 11/11/2018 TRIG 107 11/11/2018 HDL 49 11/11/2018 LDLCALC 93 11/11/2018 ALT 11 01/16/2022 AST 15 01/16/2022 NA 140 01/16/2022 K 3.8 01/16/2022 CL 103 01/16/2022 CREATININE 0.64 01/16/2022 BUN 11 01/16/2022 CO2 24 01/16/2022 TSH 1.350 09/20/2015 GLUCOSE 83 11/23/2019 GLU 85 01/16/2022 HGBA1C 5.4 12/23/2018 TSHREFLEX 1.530 07/01/2017 Additional issues addressed today: Review of Systems Constitutional: Negative for fatigue and fever. HENT: Negative. Respiratory: Negative for cough and wheezing. Cardiovascular: Negative. Gastrointestinal: Negative for abdominal pain, constipation and diarrhea. Endocrine: Negative. Genitourinary: Negative. Musculoskeletal: Positive for arthralgias, back pain, joint swelling and neck pain. Skin: Negative for rash. Neurological: Negative. Hematological: Negative. Psychiatric/Behavioral: Negative. OBJECTIVE: Physical Exam Vitals and nursing note reviewed. HENT: Head: Normocephalic. Cardiovascular: Rate and Rhythm: Normal rate. Heart sounds: No murmur heard. Pulmonary: Effort: Pulmonary effort is normal. Breath sounds: No wheezing. Abdominal: Palpations: Abdomen is soft. Tenderness: There is no abdominal tenderness. Musculoskeletal: General: Swelling, tenderness and deformity present. Skin: General: Skin is warm. Neurological: General: No focal deficit present. Mental Status: She is alert. Psychiatric: Mood and Affect: Mood normal. Assessment Diagnoses and all orders for this visit: Annual physical exam Post-menopausal - DX BONE DENSITY AXIAL SKELETON; Future Vitamin B 12 deficiency - cyanocobalamin 1,000 mcg/mL Inj Solution; INJECT 1ML INTO THE MUSCLE EVERY MONTH Dispense: 1 mL; Refill: 11 Rheumatoid arthritis involving multiple sites with positive rheumatoid factor (HCC) (Chronic) - HYDROcodone-acetaminophen (NORCO) 5-325 mg Oral Tablet; Take 1 Tablet by mouth every 4 hours as needed for Acute Pain (R52) or Acute Pain > 3 Days Medically Necessary (R52) for up to 3 days. Dispense: 20 Tablet; Refill: 0 Flared. On steroids Immunocompromised patient (HCC) (Chronic) stable Chronic pain syndrome - DULoxetine (CYMBALTA) 30 mg Oral Capsule, Delayed Release(E.C.); Take 1 Capsule by mouth daily. Dispense: 30 Capsule; Refill: 11 DDD (degenerative disc disease), cervical - DULoxetine (CYMBALTA) 30 mg Oral Capsule, Delayed Release(E.C.); Take 1 Capsule by mouth daily. Dispense: 30 Capsule; Refill: 11 Cervical radiculopathy - DULoxetine (CYMBALTA) 30 mg Oral Capsule, Delayed Release(E.C.); Take 1 Capsule by mouth daily. Dispense: 30 Capsule; Refill: 11 - HYDROcodone-acetaminophen (NORCO) 5-325 mg Oral Tablet; Take 1 Tablet by mouth every 4 hours as needed for Acute Pain (R52) or Acute Pain > 3 Days Medically Necessary (R52) for up to 3 days. Dispense: 20 Tablet; Refill: 0 - ketorolac (TORADOL) injection 60 mg Other orders - varicella-zoster gE-AS01B, PF, (SHINGRIX, PF,) 50 mcg/0.5 mL IM Suspension for Reconstitution; Inject 0.5 mL into the muscle once for 1 dose. Inject 0.5ml intramuscularly and repeat with one dose 2to 6 months later Dispense: 1 Each; Refill: 1 she will look into seeing pain management again. She used to get injections only in the past. Sees rheumatology options are limited due to cost and allergies. her has cirrhosis and is needing care with adls discussed she needs to ask his pcp about home health and lifts etc. documented in this encounter Plan of Treatment Upcoming Encounters Date Type Department Care Team (Late st Contact Info) Description 08/31/2024 8:30 AM EST Appointment [place] [address] [place] [address] 10/25/2024 10:45 AM EST Office Visit [facility] [address] [place] [address] Jessica Cortes MD [address] [facility] Building [address] [place] [address] 01/25/2025 9:00 AM EDT Appointment [place] [address] [place] [address] 05/09/2025 11:00 AM EDT Appointment [place] [address] [place] [address] 05/09/2025 11:15 AM EDT Appointment [place] [address] [place] [address] Susana Garay MD [address] [place] [address] [address] [place] [place] [phone] documented as of this encounter Goals Goal Patient Goal Type Associated Problems Recent Progress Patient-Stated? Author Maintain a healthy diet, exercise regularly and maintain an ideal body weight General Porsche Ashley RN documented as of this encounter Results * DX BONE DENSITY AXIAL SKELETON (04/24/2022 1:00 PM EDT) Anatomical Region Laterality Modality Dexa Scan 04/24/2022 Narrative 04/25/2022 1:51 PM EDT Indication: The patient is a post-menopausal female under age 65 with clinical risk factors for an osteoporotic fracture that requires a bone density assessment. Study was performed on [employer] 5. Bone Density: Region ?BMD ? T-score [...] medical examination at a health care facility Post-menopausal Asymptomatic postmenopausal status (age-related) (natural) Vitamin B 12 deficiency Other B-complex deficiencies Rheumatoid arthritis involving multiple sites with positive rheumatoid factor (HCC) Immunocompromised patient (HCC) Unspecified immunity deficiency Chronic pain syndrome DDD (degenerative disc disease), cervical Degeneration of cervical intervertebral disc Cervical radiculopathy Brachial neuritis or radiculitis nos Post-menopausal Asymptomatic postmenopausal status (age-related) (natural) documented in this encounter Administered Medications Inactive Administered Medications - up to 1 most recent administrations Medication Order MAR Action Action Date Dose Rate Site ketorolac (TORADOL) injection 60 mg 60 mg, Intramuscular, ONCE, 1 dose, On Fri02/12/22 at 1500, Maximum IV dose is 30mg, Dx: 1. Cervical radiculopathyIndications: Cervical radiculopathy Given 02/12/2022 3:04 PM EDT 60 mg Right Upper Outer Quadrant documented in this encounter Discontinued Medications Medication Sig Discontinue Reason Start Date End Da te predniSONE (DELTASONE) 20 mg Oral Tablet Take 2 tabs daily for 4 days then 1 tab daily for 4 days DELETE- Entered in Error 11/16/2021 02/12/2022 predniSONE (DELTASONE) 5 mg Oral TabletIndications:Rhe umatoid arthritis involving multiple sites with positive rheumatoid factor (HCC) Take 1 Tablet by mouth daily. DELETE- Entered in Error 12/20/2021 02/12/2022 sertraline (ZOLOFT) 50 mg Oral TabletIndications:Nan ctive depression TAKE 1/2 TABLET BY MOUTH DAILY FOR 7 DAYS, THEN 1 TABLET BY MOUTH THEREAFTER. DELETE- Entered in Error 01/23/2021 02/12/2022 terbinafine HCL (LAMISIL) 250 mg Oral TabletIndications:Tin ea corporis TAKE 1 TABLET BY MOUTH EVERY DAY FOR 2 WEEKS DELETE- Entered in Error 03/16/2020 02/12/2022 loperamide (IMODIUM) 2 mg Oral Capsule Take 1 Cap by mouth 4 times daily as needed for Diarrhea. DELETE- Entered in Error 04/16/2021 02/12/2022 Golimumab (SIMPONI) 50 mg/0.5 mL SubQ Pen InjectorIndications:R heumatoid arthritis involving multiple sites with positive rheumatoid factor (HCC) Subcutaneous (Inject under the skin) 0.5 mL every 30 days. DELETE- Entered in Error 01/24/2022 02/12/2022 fluticasone (FLONASE) 50 mcg/actuation Nasl [place], SuspensionIndications :Acute bacterial sinusitis 1 [place] by Nasal route daily. DELETE- Entered in Error 06/26/2016 02/12/2022 busPIRone (BUSPAR) 10 mg Oral TabletIndications:Anx iety TAKE 1 TAB BY MOUTH 2 TIMES DAILY NEEDED. DELETE- Entered in Error 07/19/2021 02/12/2022 amitriptyline (ELAVIL) 25 mg Oral TabletIndications:Ins omnia, unspecified type TAKE 1 TABLET BY MOUTH EVERY DAY AT NIGHT DELETE- Entered in Error 07/19/2021 02/12/2022 cyanocobalamin 1,000 mcg/mL Inj Solution INJECT 1ML INTO THE MUSCLE EVERY MONTH Reorder 06/18/2021 02/12/2022 cyanocobalamin 1,000 mcg/mL Inj Solution INJECT 1ML INTO THE MUSCLE EVERY MONTH Reorder 02/12/2022 02/12/2022 documented as of this encounter Care Teams Art Handler Relationship Specialty Start Date End Date Julisa Kerr MD [address] [place] [place] [id number] PCP - General 02/22/11 Jessica Cortes MD [address] [place] [phone] Internal Medicine-Rheumatology 04/26/16 documented as of this encounter
--- OUTSIDE RECORDS SUMMARY | 2024-08-22 21:46 | XMS_ITS | Encounter Summary ---
Author Organization [place] [address] Care Team Providers Care Latent Fingerprint Examiner Name Role Phone Julisa Kerr MD Primary Care Provider [phone] Jessica Cortes MD Unavailable [phone] Encounter Details Date Type Department Care Team (Latest Contact Info) Description 01/23/2022 10:05 AM EDT - 01/23/2022 11:59 PM EDT Hospital Encounter [facility] [address] [place] [address] Tuberculosis screening Discharge Disposition: Home or Self [...] of Assessment Author No 11/22/2020 3:41 PM Ablin Blake MA * Is the person blind [...] Albin Blake MA documented in this encounter Medications at Time of Discharge methotrexate sodium 25 mg/mL Inj SolutionIndicati ons:Rheumatoid arthritis involving multiple sites with positive rheumatoid factor (HCC) Subcutaneous (Inject under the skin) 0.6 mL once a week. 4 mL 1 01/23/2022 2 documented as of this encounter Discharge Disposition Disposition Code Departure Means Destination Home or Self Care documented in this encounter Plan of Treatment Upcoming Encounters Date Type Department Care Team (Late st Contact Info) Description 08/31/2024 8:30 AM EST Appointment [facility] [address] [place] [address] 10/25/2024 10:45 AM EST Office Visit [facility] [address] [place] [address] Jessica Cortes MD [address] [facility] Building [address] [place] [address] 01/25/2025 9:00 AM EDT Appointment [place] [address] [place] [address] 05/09/2025 11:00 AM EDT Appointment [facility] [place] [address] 05/09/2025 11:15 AM EDT Appointment [facility] [place] [address] [address] Susana Garay MD [address] [place] [address] [place] [address] documented as of this encounter Goals Goal Patient Goal Type Associated Problems Recent Progress Patient-Stated? Author Maintain a healthy diet, exercise regularly and maintain an ideal body weight General Porsche Ashley RN documented as of this encounter Procedures Procedure Name Priority Date/Time Associated Diagnosis Comments QUANTIFERON TB GOLD Routine 01/23/2022 1 0:15 AM EDT Tuberculosis screening documented in this encounter Results * QUANTIFERON TB GOLD (01/23/2022 10:15 AM EDT) Quantiferon-TB Gold in Tube Negative Negative, Indeterminate 01/24/2022 1:09 PM EDT [facility] Quantiferon Mitogen minus NIL 3.7954 IU/mL 01/24/2022 1:09 PM EDT [facility] Quantiferon NIL 0.0146 IU/mL 01/24/2022 1:09 PM EDT [facility] QUANTIFERON TB1 MINUS NIL 0.0144 IU/mL 01/24/2022 1:09 PM EDT [facility] QUANTIFERON TB2 MINUS NIL 0.0009 IU/mL 01/24/2022 1:09 PM EDT [facility] Blood Venipuncture / Unknown 01/23/2022 10:15 AM EDT 01/23/2022 10:16 AM EDT Narrative [facility] - 01/24/2022 1:09 PM EDT Interferon gamma release is measured [...] MD IMMUNOLOGY ORDERABLES Fin al Result [facility] [address] [place] [address], [place] [address] documented in this encounter Visit Diagnoses Diagnosis Tuberculosis screening Screening examination for pulmonary tuberculosis documented in this encounter Care Teams Latent Fingerprint Examiner Relationship Specialty Start Date End Date Julisa Kerr MD [address] [place] [address] PCP - General 02/22/11 Jessica Cortes MD [address] [address] Internal Medicine-Rheumatology 04/26/16 documented as of this encounter
--- OUTSIDE RECORDS SUMMARY | 2024-08-22 21:46 | XMS_ITS | Encounter Summary ---
Author Organization [place] [address] Care Team Providers Care Hand Icer Name Role Phone Julisa Kerr MD Primary Care Provider [phone] Jessica Cortes MD Unavailable [phone] Reason for Visit * Reason Comments Rheumatoid Arthritis Encounter Details Date Type Department Care Team (Late st Contact Info) Description 08/28/2021 8:30 AM EST Telemedicine [facility] [address] [place] [address] Jhon Peña, JOSE [address] [place] [address] Rheumatoid arthritis involving multiple sites with positive [...] x 5 days then stop. 30 Tablet 08/28/2021 2 documented in this encounter Progress Notes * Jhon Peña, JOSE - 08/28/2021 8:30 AM EST Patient presented today for routine care follow-up through a video visit. Patient has reviewed the terms and conditions of service as part of the registration for today's visit. A video visit does not replace a [id number] exam and further services may be necessary. We are conducting her video visit in a private space and this video visit is being conducted in accordance with state telehealth/video visit regulations. HPI: Presents virtually with rheumatoid arthritis flare over the last several days. Currently taking methotrexate and leflunomide, but with increased flares. Review of Systems Musculoskeletal: Positive for arthralgias [...] 08/31/2024 8:30 AM EST Appointment [place] [address] [place] [address] 10/25/2024 10:45 AM EST Office Visit [facility] [address] [facility] [address] [place] [address] Jessica Cortes MD [address] [facility] Building [address] [place] [address] 01/25/2025 9:00 AM EDT Appointment [place] [address] [place] [id number] 05/09/2025 11:00 AM EDT Appointment [place] [address] [place] [id number] 05/09/2025 11:15 AM EDT Appointment [facility] [address] [place] [address] Susana Garay MD [address] [facility] [place] [id number] documented as of [...] daily x 5 days then stop. Reorder 07/19/2021 08/28/2021 documented as of this encounter Care Teams Hand Icer Relationship Specialty Start Date End Date Julisa Kerr MD [address] [place] [address] PCP - General 02/22/11 Jessica Cortes MD [address] [place] [address] Internal Medicine-Rheumatology 04/26/16 documented as of this encounter
--- OUTSIDE RECORDS SUMMARY | 2024-08-22 21:46 | XMS_ITS | Encounter Summary ---
Author Organization [facility] [place] [address] Care Team Providers Care Tow Truck Operator Name Role Phone Julisa Kerr MD Primary Care Provider [phone] Jessica Cortes MD Unavailable [phone] Encounter Details Date Type Department Care Team (Latest Contact Info) Description 02/12/2022 Travel Social History Tobacco Use Types Packs/Day [...] Info) Description 08/31/2024 8:30 AM EST Appointment [address] [place] [address] 10/25/2024 10:45 AM EST Office Visit [facility] [address] [place] [facility] [address] [place] [address] Jessica Cortes MD [address] [place] [address] Building 19 [place] [address] 01/25/2025 9:00 AM EDT Appointment [address] [place] [address] 05/09/2025 11:00 AM EDT Appointment [address] [place] [address] 05/09/2025 11:15 AM EDT Appointment [address] [place] [address] Susana Garay MD [address] [place] [address] [place] [address] documented as of this encounter Goals Goal Patient Goal Type Associated Problems Recent Progress Patient-Stated? Author Maintain a healthy diet, exercise regularly and maintain an ideal body weight General Porsche Ashley, RN documented as of this encounter Visit Diagnoses Not on filedocumented in this encounter Care Teams Tow Truck Operator Relationship Specialty Start Date End Date Julisa Kerr MD 100 [place] [address] PCP - General 02/22/11 Jessica Cortes MD 651 [place] [id number] Internal Medicine-Rheumatology 04/26/16 documented as of this encounter
--- OUTSIDE RECORDS SUMMARY | 2024-08-22 21:46 | XMS_ITS | Encounter Summary ---
Author Organization [facility] [place] [address] Care Team Providers Care Debug Technician Name Role Phone Julisa Kerr MD Primary Care Provider [phone] Jessica Cortes MD Unavailable [phone] Encounter Details Date Type Department Care Team (Latest Contact Info) Description 03/28/2022 Travel Social History Tobacco Use Types Packs/Day [...] Description 08/31/2024 8:30 AM EST Appointment [address] [place] [address] 10/25/2024 10:45 AM EST Office Visit [facility] [address] [place] [facility] [address] [place] [address] Jessica Cortes MD [address] [place] [address] Building [address] [place] [address] 01/25/2025 9:00 AM EDT Appointment [address] [place] [address] 05/09/2025 11:00 AM EDT Appointment [address] [place] [address] 05/09/2025 11:15 AM EDT Appointment [address] [place] [address] Susana Garay MD [address] [place] [address] [place] [address] documented as of this encounter Goals Goal Patient Goal Type Associated Problems Recent Progress Patient-Stated? Author Maintain a healthy diet, exercise regularly and maintain an ideal body weight General Porsche Ashley, RN documented as of this encounter Visit Diagnoses Not on filedocumented in this encounter Care Teams Debug Technician Relationship Specialty Start Date End Date Julisa Kerr MD 100 [place] [address] PCP - General 02/22/11 Jessica Cortes MD 651 [place] [phone] Internal Medicine-Rheumatology 04/26/16 documented as of this encounter
--- OUTSIDE RECORDS SUMMARY | 2024-08-22 21:46 | XMS_ITS | Encounter Summary ---
Author Organization [place] [address] Care Team Providers Care Fighting Vehicle Infantryman Name Role Phone Julisa Kerr MD Primary Care Provider [phone] Jessica Cortes MD Unavailable [phone] Encounter Details Date Type Department Care Team (Latest Contact Info) Description 03/28/2022 10:03 AM EDT - 03/28/2022 11:59 PM EDT Hospital Encounter [facility] [address] [place] [address] Rheumatoid arthritis involving multiple sites [...] EVERY MONTH 1 mL 11 02/12/2022 3 Golimumab (SIMPONI) 50 mg/0.5 mL SubQ Pen InjectorIndicati ons:Rheumatoid arthritis involving multiple sites with positive rheumatoid factor (HCC) Inject under the skin 0.5 mL (one syringe) every 30 days. 0.5 mL 5 06/13/2022 1:42 PM EDT 02/07/2022 2 methotrexate sodium 25 mg/mL Inj SolutionIndicati ons:Rheumatoid [...] 8:30 AM EST Appointment [facility] [place] [address] [place] [address] 10/25/2024 10:45 AM EST Office Visit [facility] [address] [place] [address] Jessica Cortes MD [address] [facility] [facility] Building [address] [place] [address] 01/25/2025 9:00 AM EDT Appointment [place] [address] [place] [address] 05/09/2025 11:00 AM EDT Appointment [place] [address] [place] [address] 05/09/2025 11:15 AM EDT Appointment [place] [address] [place] [address] Susana Garay MD [address] [place] [address] [place] [address] documented as of this encounter Goals Goal Patient Goal Type Associated Problems Recent Progress Patient-Stated? 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 RN documented as of this encounter Procedures Procedure Name Priority Date/Time Associated Diagnosis Comments SEDIMENTATION RATE AUTOMATED Routine 03/28/2022 10:03 AM EDT Rheumatoid arthritis involving multiple sites with positive rheumatoid factor (HCC) Therapeutic drug monitoring CBC WITH DIFF Routine 03/28/2022 10:03 AM EDT Rheumatoid arthritis involving multiple sites with positive rheumatoid factor (HCC) Therapeutic drug monitoring C-REACTIVE PROTEIN Routine 03/28/2022 10 :03 AM EDT Rheumatoid arthritis involving multiple sites with positive rheumatoid factor (HCC) Therapeutic drug monitoring COMPREHENSIVE METABOLIC PANEL Routine 03/28/2022 10:03 AM EDT Rheumatoid arthritis involving multiple sites with positive rheumatoid factor (HCC) Therapeutic drug monitoring documented in this encounter Results * SEDIMENTATION RATE AUTOMATED (03/28/2022 10:03 AM EDT) [facility] Sed Rate 18 0 - 30 mm/hr 03/28/2022 3:04 PM EDT [facility] [employer] Blood VENOUS BLOOD / Unknown Venipuncture / Unknown 03/28/2022 10:03 AM EDT 03/28/2022 10:03 AM EDT Jessica Cortes MD HEMATOLOGY ORDERABLES Fin al Result Performing Organization Address [facility]/ZIP Co de Phone Number [facility] [email or web address] [address] , [place] [address] * (ABNORMAL) C-REACTIVE PROTEIN (03/28/2022 10:03 AM EDT) [facility] CRP 25.87(H) <=5.00 mg/L 03/28/2022 2:42 PM EDT [facility] [employer] Blood VENOUS BLOOD / Unknown Venipuncture / Unknown 03/28/2022 10:03 AM EDT 03/28/2022 10:03 AM EDT Jessica Cortes MD CHEMISTRY ORDERABLES Siobhan l Result Performing Organization Address [facility]/ZIP Co de Phone Number [facility] [email or web address] [address] , [place] [address] * (ABNORMAL) COMPREHENSIVE METABOLIC PANEL (03/28/2022 10:03 AM EDT) [facility] Sodium 138 136 - 145 mmol/L 03/28/2022 2:42 PM EDT [facility] [employer] Potassium 3.6 3.5 - 5.0 mmol/L 03/28/2022 2:42 PM EDT [facility] [employer] Chloride 100 98 - 107 mmol/L 03/28/2022 2:42 PM EDT [facility] Total CO2 24 22 - 29 mmol/L 03/28/2022 2:42 PM EDT [facility] Anion Gap 14 7 - 16 mmol/L 03/28/2022 2:42 PM EDT [facility] Calcium 9.4 8.6 - 10.4 mg/dL 03/28/2022 2:42 PM EDT [facility] Glucose Lvl 135(H) 74 - 100 mg/dL 03/28/2022 2:42 PM EDT [facility] BUN 12 6 - 20 mg/dL 03/28/2022 2:42 PM EDT [facility] Creatinine 0.79 0.51 - 1.30 mg/dL 03/28/2022 2:42 PM EDT [facility] Albumin 4.0 3.5 - 5.2 gm/dL 03/28/2022 2:42 PM EDT [facility] Total Protein 7.0 6.4 - 8.3 gm/dL 03/28/2022 2:42 PM EDT [facility] Bili Total 0.5 0.1 - 1.3 mg/dL 03/28/2022 2:42 PM EDT [facility] ALT 13 <=41 U/L 03/28/2022 2:42 PM EDT [facility] AST 20 <=40 U/L 03/28/2022 2:42 PM EDT [facility] Alk Phos 104 36 - 123 U/L 03/28/2022 2:42 PM EDT [facility] eGFR (CKD-EPIcr 2020) 90 >=60 mL/min/1.7 3 m2 03/28/2022 2:42 PM EDT [facility] Comment:Estimated GFR was ca lculated using the CKD-EPIcr (2020) equation refit without race. The equation is recommended by the National Kidney Foundation - [place] [employer] Neph[employer] Task Force. Blood VENOUS BLOOD / Unknown Venipuncture / Unknown 03/28/2022 10:03 AM EDT 03/28/2022 10:03 AM EDT us Jessica Cortes MD CHEMISTRY ORDERABLES Siobhan finnegan Result [facility] [address] [facility] [place] [address] [facility] 1 [place] [address] * (ABNORMAL) CBC WITH DIFF (03/28/2022 10:03 AM EDT) WBC 11.3(H) 3.7 - 10.3 x10(3)/mcL 03/28/2022 2:33 PM EDT [facility] RBC 5.26(H) 3.90 - 5.20 x10(6)/mcL 03/28/2022 2:33 PM EDT [facility] Hgb 14.1 11.2 - 15.7 g/dL 03/28/2022 2:33 PM EDT [facility] Hct 45.9(H) 34.0 - 45.0 % 03/28/2022 2:33 PM EDT [facility] MCV 87.3 80.0 - 100.0 fL 03/28/2022 2:33 PM EDT [facility] MCH 26.8 26.0 - 34.0 pg 03/28/2022 2:33 PM EDT [facility] MCHC 30.7 30.7 - 35.5 g/dL 03/28/2022 2:33 PM EDT [facility] RDW 16.0(H) <=14.9 % 03/28/2022 2:33 PM EDT [facility] Platelet 408(H) 155 - 369 x10(3)/mcL 03/28/2022 2:33 PM EDT [facility] MPV 11.0 8.8 - 12.5 fL 03/28/2022 2:33 PM EDT [facility] Neut Percent 70.0 % 03/28/2022 2:33 PM EDT [facility] Comment:Neutrophils equals s egs plus bands Imm Gran% 1.0 % 03/28/2022 2:33 PM EDT [facility] Comment:Automated count of m etamyelocytes, myelocytes and promyelocytes. Lymph Percent 15.8 % 03/28/2022 2:33 PM EDT [facility] [place] Percent 10.7 % 03/28/2022 2:33 PM EDT [facility] Eos Percent 1.6 % 03/28/2022 2:33 PM EDT [facility] Baso Percent 0.9 % 03/28/2022 2:33 PM EDT [facility] Neut # 7.9(H) 1.6 - 6.1 x10(3)/mcL 03/28/2022 2:33 PM EDT [facility] Comment:Neutrophils equals s egs plus bands IMMGRAN# 0.1 0.0 - 0.1 x10(3)/mcL 03/28/2022 2:33 PM EDT [facility] Comment:Automated count of m etamyelocytes, myelocytes and promyelocytes. An absolute IG <0.1 is reported as 0.0. Lymph # 1.8 1.2 - 3.9 x10(3)/mcL 03/28/2022 2:33 PM EDT [facility] [place] # 1.2(H) 0.3 - 0.9 x10(3)/mcL 03/28/2022 2:33 PM EDT [facility] Eos# 0.2 0.0 - 0.5 x10(3)/mcL 03/28/2022 2:33 PM EDT [facility] Baso # 0.1 0.0 - 0.1 x10(3)/mcL 03/28/2022 2:33 PM EDT [facility] Blood VENOUS BLOOD / Unknown Venipuncture / Unknown 03/28/2022 10:03 AM EDT 03/28/2022 10:03 AM EDT us Jessica Cortes MD HEMATOLOGY ORDERABLES Fin al Result [facility] [address] [facility] , [place] [address] documented in this encounter Visit Diagnoses Diagnosis Rheumatoid arthritis involving multiple sites with positive rheumatoid factor (HCC) Therapeutic drug monitoring Encounter for therapeutic drug monitoring documented in this encounter Care Teams Fighting Vehicle Infantryman Relationship Specialty Start Date End Date Julisa Kerr MD 100 [place] [address] PCP - General 02/22/11 Jessica Cortes MD [address] [id number] Internal Medicine-Rheumatology 04/26/16 documented as of this encounter
--- OUTSIDE RECORDS SUMMARY | 2024-08-22 21:46 | XMS_ITS | Encounter Summary ---
Author Organization [place] [address] Care Team Providers Care Specialty Plant Supervisor Name Role Phone Julisa Kerr MD Primary Care Provider [phone] Jessica Cortes MD Unavailable [phone] Reason for Visit * Reason Comments Follow-up [facility] Raynaud's Syndrome Rheumatoid Arthritis Osteopenia Neck Pain Encounter Details Date Type Department Care Team (Latest Contact Info) Description 01/23/2022 8:45 AM EDT Office Visit SEP RHEUMATOLOGY NPTFTT [address] [place] [address] Jessica Cortes MD [address] [address] Rheumatoid arthritis involving multiple sites with positive rheumatoid factor (HCC) (Primary Dx); Raynaud's phenomenon without gangrene; Positive BRET (antinuclear antibody); Sicca syndrome (HCC); Neck pain; Osteopenia of multiple sites; Postmenopausal state; Immunocompromised patient (HCC); Therapeutic drug monitoring; Tuberculosis screening; Trochanteric bursitis of left hip Social History Tobacco Use Types Packs/Day Years [...] Sign Reading Time Taken Comments Blood Pressure 134/70 01/23/2022 9:14 AM EDT Pulse 109 01/23/2022 9:14 AM EDT Temperature - - Respiratory Rate 16 01/23/2022 9:14 AM EDT Oxygen Saturation - - Inhaled Oxygen Concentration - - Weight 57.6 kg (127 lb) 01/23/2022 9:14 AM EDT Height 157.5 cm (5' 2 ) 01/23/2022 9:14 AM EDT Body Mass Index 23.23 01/23/2022 9:14 AM EDT documented in this encounter Functional [...] mL every 30 days. 0.5 mL 5 01/23/2022 2 methotrexate sodium 25 mg/mL Inj SolutionIndicatio ns:Rheumatoid arthritis involving multiple sites with positive rheumatoid factor (HCC) Subcutaneous (Inject under the skin) 0.6 mL once a week. 4 mL 1 01/23/2022 2 leflunomide (ARAVA) 10 mg Oral TabletIndications :Rheumatoid arthritis involving multiple sites with positive rheumatoid factor (HCC) Take 1 Tablet by mouth daily. 30 Tablet 1 01/23/2022 2 documented in this encounter Progress Notes * Jessica Cortes MD - 01/23/2022 8:45 AM EDT Subjective Subjective: Patient ID: Yuliet Trevino is a 51 y.o. female. Chief Complaint Patient presents with ??? Follow-up [facility] ??? Raynaud's Syndrome ??? Rheumatoid Arthritis ??? Osteopenia ??? Neck Pain HPI The patient comes in for follow up regarding RA. Symptoms started in 2002. Seen by Executive Search Consultant, Dr. Astorga. [facility] [...] she has mild pain- 3/10, mild swelling. MTX sent 06/21/2021 4 ml with 1 refill. Arava sent 08/22/21 30 tabs with 1 refill. Her was in the hospital twice in the last 6 months. He has liver cirrhosis. He had MT. He needed emergency hernia surgery. He has been in the hospital with him all the time. She needs to get him to the hospital for paracentesis twice a week. Joint pain; knees and left hip are really bad, hands, wrists ache. Pain in the neck radiating to the shoulders. RFA previously that helped. Last RFA on the right side did not work. Right hand gets numb completely while she drives. Joint swelling: wrists, right knuckles, right ankle. Dry eyes - not too bad. Uses eye drops. Dry mouth pretty dry Pain on a scale 0-10: 9.5/10 Type of pain: ache Morning stiffness: up to 60 minutes. Raynaud's: worsened in the cold weather. Current therapy: MTX 15 mg weekly, Arava 10 mg daily, folic acid 1 mg daily, prednisone 5 [...] to Visit Medication Sig Dispense Refill ??? amitriptyline (ELAVIL) 25 mg Oral Tablet TAKE 1 TABLET BY MOUTH EVERY DAY AT NIGHT 30 Tablet 2 ??? busPIRone (BUSPAR) 10 mg Oral Tablet TAKE 1 TAB BY MOUTH 2 TIMES DAILY NEEDED. 60 Tablet 2 ??? cyanocobalamin 1,000 mcg/mL Inj Solution INJECT 1ML INTO THE MUSCLE EVERY MONTH 1 mL 3 ??? fluticasone (FLONASE) 50 mcg/actuation Nasl [place], Suspension 1 [place] by Nasal route daily. 1 Bottle 2 ??? folic acid (FOLVITE) 1 mg Oral Tablet TAKE 1 TABLET BY MOUTH EVERY DAY 30 Tablet 11 ??? loperamide (IMODIUM) 2 mg Oral Capsule Take 1 Cap by mouth 4 times daily as needed for Diarrhea. 50 Cap 0 ??? predniSONE (DELTASONE) 5 mg Oral Tablet Take 1 Tablet by mouth daily. 30 Tablet 2 ??? PROAIR HFA 90 mcg/actuation Inhl HFA Aerosol Inhaler INHALE 2 PUFFS BY MOUTH EVERY 6 HOURS NEEDED FOR WHEEZE 8.5 Each 3 ??? sertraline (ZOLOFT) 50 mg Oral Tablet TAKE 1/2 TABLET BY MOUTH DAILY FOR 7 DAYS, THEN 1 TABLET BY MOUTH THEREAFTER. 30 Tab 8 ??? terbinafine HCL (LAMISIL) 250 mg Oral Tablet TAKE 1 TABLET BY MOUTH EVERY DAY FOR 2 WEEKS 14 Tab 0 ??? predniSONE (DELTASONE) 20 mg Oral Tablet Take 2 tabs daily for 4 days then 1 tab daily for 4 days (Patient not taking: Reported on 01/23/2022) 12 Tablet 0 No current facility-administered medications on [...] reviewed and are negative. Objective Objective: Vitals: 01/23/22 0914 BP: 134/70 Pulse: 109 Resp: 16 Weight: 127 lb (57.6 kg) Height: 5' 2 (1.575 m) Body mass index is 23.23 kg/m??. Physical Exam Vitals reviewed. Constitutional: Appearance: She is well-developed. HENT: Head: Normocephalic and atraumatic. Eyes: Conjunctiva/sclera: Conjunctivae normal. Pupils: Pupils are equal, round, and reactive to light. Musculoskeletal: Cervical back: Normal range of motion. Comments: Tenderness to the trapezius muscles on right, spinal processes of the lumbar spine and paraspinals in the right lumbar area. Tenderness to both wrists, 1-5th right MCP, 1-3rd left MCP, 4th,5th right PIP, 3rd left PIP,MTP joints, left trochanteric bursa. Significant synovitis in the wrists, 2nd, 3rd, 5th right MCP, 1st, 2nd, 3rd left MCP, 4th, 5th right PIP, 3rd, left PIP, both ankle, both MTP areas. ROM of the knees intact. ROM of the right ankle, right elbow decreased. ROM of the wrists decreased. Skin: General: Skin is warm. Findings: No rash. Neurological: Mental Status: She is alert. Comments: Muscle strength 5/5 upper and lower extremities. Psychiatric: Mood and Affect: Mood normal. Rapid 3: 24.0 Lab Results Component Value Date WBC 9.0 01/16/2022 HGB 11.8 01/16/2022 HCT 38.7 01/16/2022 MCV 86.4 01/16/2022 PLT 432 (H) 01/16/2022 Chemistry Component Value Date/Time NA 140 01/16/2022 1309 NA 138 11/23/2019 0000 K 3.8 01/16/2022 1309 K 4.6 11/23/2019 0000 CL 103 01/16/2022 1309 CL 102 11/23/2019 0000 CO2 24 01/16/2022 1309 CO2 27 11/23/2019 0000 BUN 11 01/16/2022 1309 BUN 11 11/23/2019 0000 CREATININE 0.64 01/16/2022 1309 CREATININE 0.7 11/23/2019 0000 GLU 85 01/16/2022 1309 GLU 103 (H) 07/01/2017 1532 Component Value Date/Time CALCIUM 9.6 01/16/2022 1309 CALCIUM 9.60 11/23/2019 0000 ALKPHOS 105 01/16/2022 1309 ALKPHOS 112 11/23/2019 0000 AST 15 01/16/2022 1309 AST 20 11/23/2019 0000 ALT 11 01/16/2022 1309 ALT 9 11/23/2019 0000 BILITOT 0.2 11/23/2019 0000 Lab Results Component Value Date CRP 156.90 (H) 01/16/2022 Lab Results Component Value Date SEDRATE 56 (H) 01/16/2022 Assessment and Plan: Yuliet was seen today for follow-up, raynaud's syndrome, rheumatoid arthritis, osteopenia and neck pain. 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 Run out of MTX in 01/2021), and Arava in 03/2021. Very active arthritis in 05/2021. Tenderness to both wrists, all of the MCP joints, 4th, 5tth right PIP, right ankle. Significant synovitis in the wrists, moderate in the left wrist, 1st- 5th MCP, 5thright PIP, 1st, 2nd, 5th left MCP, right ankle, both MTP areas. MTX and Arava restarted 06/21/21 but the patient run out of MTX again 07/1021 and off Arava in 09/2021. Very active disease. Extremely high inflammatory markers, CRP 156.90, ESR 56. Discussed treatment with Simponi. Risks of therapy discussed with the patient including injection site reactions, susceptibility to infections, reactivation of Tuberculosis and Histoplasmosis, bone marrow toxicity, possible risk of cancers, mainly skin cancers including melanoma and lymphomas. Hepatitis panel checked and negative. Patient should hold therapy while being treated for infections. Patient should not receive live vaccines while on therapy. - leflunomide (ARAVA) 10 mg Oral Tablet; Take 1 Tablet by mouth daily. - methotrexate sodium 25 mg/mL Inj Solution; Subcutaneous (Inject under the skin) 0.6 mL once a week. - Golimumab (SIMPONI) 50 mg/0.5 mL SubQ Pen Injector; Subcutaneous (Inject under the skin) 0.5 mL every 30 days. Raynaud's phenomenon without gangrene Positive BRET (antinuclear antibody) 1:640, centromere pattern Sicca syndrome (HCC) Suspect secondary Sjogren's due to RA. SSA and SSB antibodies negative Advised on behavioral modifications- sugar free gum and candy, frequent fluid intake, eye drops Advised on regular ophthalmology and dental appointments No history of digital ulcerations No other symptoms to suggest CTD Neck pain Patients with active RA are at risk for atlantoaxial disease and translocation of the dens x rays revealed mild degenerative changes, no evidence of atlanto axial disease MRI of the C spine 01/23/19 revealed degenerative disc changes at the C5-C6 and C6-C7 levels, no high-grade foraminal stenosis or neural canal stenosis. PT worsened the symptoms Evaluated by ortho, s/p RFA's, those helped, last one not that effective Regular stretches, heat, ice, massage Osteopenia of multiple sites Postmenopausal state Surgical menopause in 2000 Hx of RA, frequent prednisone use Bone density ( 05/03/16) T score -2.2 at the right femoral neck FRAX score - risk for fracture is low. Vitamin D daily Weight bearing exercises regularly DXA 12/18/18 showed low bone mass. Improved in the spine and stable in the hip in comparison to the last DXA from 2016 Recent elbow fracture. DXA, ordered advised to schedule Immunocompromised patient (HCC) Increased risk for infections due to immunosuppression Prevnar 13 given 12/13/16 Pneumovax 23 given 03/17/17 Trochanteric bursitis of the left hip Left bursa tenderness Advised to continue stretches and topical OTC creams Therapeutic drug monitoring Tuberculosis screening TB gold negative 11/23/19, will recheck since we will add Simponi. Labs every 6-8 weeks while on MTX and Arava to monitor for toxicities. Recent labs 01/16/22 normal except for elevated platelets and highly elevated inflammatory markers. - QUANTIFERON TB GOLD; Future Return in about 3 months (around 04/24/2022). documented in this encounter Plan of Treatment Upcoming Encounters Date Type Department Care Team (Late st Contact Info) Description 08/31/2024 8:30 AM EST Appointment [place] [address] [address] [place] [address] 10/25/2024 10:45 AM EST Office Visit [facility] RHEUMATOLOGY [facility] [address] [place] [address] Jessica Cortes MD [address] [place] [address] 01/25/2025 9:00 AM EDT Appointment [place] [address] [place] [address] 05/09/2025 11:00 AM EDT Appointment [address] [address] [place] [address] 05/09/2025 11:15 AM EDT Appointment [address] [address] [address] [place] [address] Susana Garay MD [address] [place] [address] [place] [address] documented as of this encounter Goals Goal Patient Goal Type Associated Problems Recent Progress Patient-Stated? 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 RN documented as of this encounter Results * QUANTIFERON TB GOLD (01/23/2022 10:15 AM EDT) Quantiferon-TB Gold in Tube Negative Negative, Indeterminate 01/24/2022 1:[address] [facility] Quantiferon Mitogen minus NIL 3.7954 IU/mL 01/24/2022 1:09 PM EDT [facility] Quantiferon NIL 0.0146 IU/mL 01/24/2022 1:09 PM EDT [facility] QUANTIFERON TB1 MINUS NIL 0.0144 IU/mL 01/24/2022 1:09 PM EDT [facility] QUANTIFERON TB2 MINUS NIL 0.0009 IU/mL 01/24/2022 1:09 PM EDT [facility] Blood Venipuncture / Unknown 01/23/2022 10:15 AM EDT 01/23/2022 10:16 AM EDT Narrative [facility] - 01/24/2022 1:09 PM EDT Interferon gamma [...] Cortes MD IMMUNOLOGY ORDERABLES Fin al Result [facility] [address] [facility] , [place] [address] documented in this encounter Visit [...] Tuberculosis screening Screening examination for pulmonary tuberculosis Trochanteric bursitis of left hip Enthesopathy of hip region documented in this encounter Discontinued Medications Medication Sig Discontinue Reason Start Date End Da te methotrexate sodium 25 mg/mL Inj SolutionIndications: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 Reorder 06/21/2021 01/23/2022 leflunomide (ARAVA) 10 mg Oral TabletIndications:Rhe umatoid arthritis involving multiple sites with positive rheumatoid factor (HCC) TAKE 1 TABLET BY MOUTH EVERY DAY Reorder 08/22/2021 01/23/2022 documented as of this encounter Care Teams Specialty Plant Supervisor Relationship Specialty Start Date End Date Julisa Kerr MD [address] [place] [address] PCP - General 02/22/11 Jessica Cortes MD 651 [facility] [address] [place] [address] Internal Medicine-Rheumatology 04/26/16 documented as of this encounter
--- OUTSIDE RECORDS SUMMARY | 2024-08-22 21:46 | XMS_ITS | Encounter Summary ---
Author Organization [facility] [address] Care Team Providers Care Financial Systems Analyst Name Role Phone Julisa Kerr MD Primary Care Provider [phone] Jessica Cortes MD Unavailable [phone] Encounter Details Date Type Department Care Team (Latest Contact Info) Description 12/20/2021 Travel Social History Tobacco Use Types Packs/Day [...] Info) Description 08/31/2024 8:30 AM EST Appointment [address] [place] [address] 10/25/2024 10:45 AM EST Office Visit [facility] R[facility]UMAT[facility] [address] [place] [address] Jessica Cortes MD [address] [place] [address] 01/25/2025 9:00 AM EDT [address]ointment [address] [address] 05/09/2025 11:00 AM EDT [address]ointment [address] [address] 05/09/2025 11:15 AM EDT Appointment [address] [place] [address] Susana Garay MD [address] [place] [address] [place] [address] documented as of this encounter Goals Goal Patient Goal Type Associated Problems Recent Progress Patient-Stated? 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, RN documented as of this encounter Visit Diagnoses Not on filedocumented in this encounter Care Teams Financial Systems Analyst Relationship Specialty Start Date End Date Julisa Kerr MD [address] [place] [id number] PCP - General 02/22/11 Jessica Cortes MD [address] [place] [address] Internal Medicine-Rheumatology 04/26/16 documented as of this encounter
--- OUTSIDE RECORDS SUMMARY | 2024-08-22 21:46 | XMS_ITS | Encounter Summary ---
Author Organization [place] [address] Care Team Providers Care Appliance Installer Name Role Phone Julisa Kerr MD Primary Care Provider [phone] Jessica Cortes MD Unavailable [phone] Reason for Visit * Reason Comments Medication Refill Encounter Details Date Type Department Care Team (Late st Contact Info) Description 03/19/2022 Refill SEP RHEUMATOLOGY NPTFTT [address] [place] [address] Jessica Cortes MD [address] [address] Medication Refill Social History Tobacco [...] ML ONCE A WEEK. 4 mL 1 04/02/2022 2 documented in this encounter Miscellaneous Notes * Telephone Encounter - Emerita Carter CCMA - 04/02/2022 3:29 PM EDT Labs- 03/28/22 * Telephone Encounter - Aleyda Naranjo MA - 03/19/2022 8:18 AM EDT Last OV 01/23/22 Next OV 04/24/22 Last BW 01/16/22 Patient is due for labs, sent MyChart. Labs ordered. documented in this encounter Plan of Treatment Upcoming Encounters Date Type Department Care Team (Late st Contact Info) Description 08/31/2024 8:30 AM EST [address]ointment [address] [address] 10/25/2024 10:45 AM EST Office Visit [facility]G RHEUMATOLOGY [facility] [address] [place] [address] Jessica Cortes MD [address] [place] [address] 01/25/2025 9:00 AM EDT Appointment [place] [address] [place] [address] 05/09/2025 11:00 AM EDT Appointment [place] [address] [place] [address] 05/09/2025 11:15 AM EDT Appointment [place] [address] [place] [address] Susana Garay MD [address] [place] [address] [place] [address] documented as of this encounter Goals Goal Patient Goal Type Associated Problems Recent Progress Patient-Stated? 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 RN documented as of this encounter Results * SEDIMENTATION RATE AUTOMATED (03/28/2022 10:03 AM EDT) Sed Rate 18 0 - 30 mm/hr 03/28/2022 3:04 PM EDT [facility], [employer] Blood VENOUS BLOOD / Unknown Venipuncture / Unknown 03/28/2022 10:03 AM EDT 03/28/2022 10:03 AM EDT us Jessica Cortes MD HEMATOLOGY ORDERABLES Fin al Result Performing Organization Address City/[facility]/ZIP Co de Phone Number [facility] [employer], [address] , [place] [address] * (ABNORMAL) C-REACTIVE PROTEIN (03/28/2022 10:03 AM EDT) [facility] CRP 25.87(H) <=5.00 mg/L 03/28/2022 2:42 PM EDT [facility] Blood VENOUS BLOOD / Unknown Venipuncture / Unknown 03/28/2022 10:03 AM EDT 03/28/2022 10:03 AM EDT us Jessica Cortes MD CHEMISTRY ORDERABLES Siobhan l Result Performing Organization Address [facility] Co de Phone Number [facility] [employer], [facility] [address] [facility] , [place] [address] * (ABNORMAL) COMPREHENSIVE METABOLIC PANEL (03/28/2022 10:03 AM EDT) [facility] Sodium 138 136 - 145 mmol/L 03/28/2022 2:42 PM EDT [facility] Potassium 3.6 3.5 - 5.0 mmol/L 03/28/2022 2:42 PM EDT [facility] Chloride 100 98 - 107 mmol/L 03/28/2022 2:42 PM EDT [facility] Total [...] 03/28/2022 2:42 PM EDT [facility], [facility] Creatinine 0.79 0.51 - 1.30 mg/dL 03/28/2022 2:42 PM EDT [facility], [facility] Albumin 4.0 3.5 - 5.2 gm/dL 03/28/2022 2:42 PM EDT [facility] Total Protein 7.0 6.4 - 8.3 gm/dL 03/28/2022 2:42 PM EDT [facility], [facility] Bili Total 0.5 0.1 - 1.3 mg/dL 03/28/2022 2:42 PM EDT [facility] ALT 13 <=41 U/L 03/28/2022 2:42 PM EDT [facility] AST 20 <=40 U/L 03/28/2022 2:42 PM EDT [facility] Alk Phos 104 36 - 123 U/L 03/28/2022 2:42 PM EDT [facility], [facility] eGFR (CKD-EPIcr 2020) 90 >=60 mL/min/1.7 3 m2 03/28/2022 2:42 PM EDT [facility] Comment:Estimated GFR was ca lculated using the CKD-EPIcr (2020) equation refit without race. The equation is recommended by the National Kidney Foundation - [place] [employer] of Nephrology Task Force. Blood VENOUS BLOOD / Unknown Venipuncture / Unknown 03/28/2022 10:03 AM EDT 03/28/2022 10:03 AM EDT us Jessica Cortes MD CHEMISTRY ORDERABLES Siobhan l Result [facility], [facility] [address] [facility] , [place] [address] [facility] 1 [place] [address] * (ABNORMAL) CBC WITH DIFF (03/28/2022 10:03 AM EDT) [facility] WBC 11.3(H) 3.7 - 10.3 x10(3)/mcL 03/28/2022 [...] 2:33 PM EDT [facility] [place] Percent 10.7 % 03/28/2022 2:33 PM EDT [...] x10(3)/mcL 03/28/2022 2:33 PM EDT [facility], [facility] Comment:Automated count of m etamyelocytes, myelocytes and promyelocytes. An absolute IG <0.1 is reported as 0.0. Lymph # 1.8 1.2 - 3.9 x10(3)/mcL 03/28/2022 2:33 PM EDT [facility], [facility] [place] # 1.2(H) 0.3 - 0.9 x10(3)/mcL 03/28/2022 2:33 PM EDT [facility] [facility], [facility] Eos# 0.2 0.0 - 0.5 x10(3)/mcL 03/28/2022 2:33 PM EDT [facility], [facility] Baso # 0.1 0.0 - 0.1 x10(3)/mcL 03/28/2022 2:33 PM EDT [facility], [facility] Blood VENOUS BLOOD / Unknown Venipuncture / Unknown 03/28/2022 10:03 AM EDT 03/28/2022 10:03 AM EDT us Jessica Cortes MD HEMATOLOGY ORDERABLES Fin al Result [facility], [facility] [address] [facility] , [address] [place] [phone] documented in this encounter Visit Diagnoses Diagnosis Therapeutic drug monitoring- Primary Encounter for therapeutic drug monitoring Rheumatoid arthritis involving multiple sites with positive rheumatoid factor (HCC) documented in this encounter Discontinued Medications Medication Sig Discontinue Reason Start Date End Da te methotrexate sodium 25 mg/mL Inj SolutionIndications: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 01/23/2022 04/02/2022 documented as of this encounter Care Teams Appliance Installer Relationship Specialty Start Date End Date Julisa Kerr MD [address] [place] [address] PCP - General 02/22/11 Jessica Cortes MD 651 [facility] [address] [place] [address] Internal Medicine-Rheumatology 04/26/16 documented as of this encounter
--- OUTSIDE RECORDS SUMMARY | 2024-08-22 21:46 | XMS_ITS | Encounter Summary ---
Author Organization [facility] [place] [address] Care Team Providers Care Hand Pleater Name Role Phone Julisa Kerr MD Primary Care Provider [phone] Jessica Cortes MD Unavailable [phone] Encounter Details Date Type Department Care Team (Latest Contact Info) Description 08/28/2021 Travel Social History Tobacco Use Types Packs/Day [...] Description 08/31/2024 8:30 AM EST [address]ointment [address] [place] [address] 10/25/2024 10:45 AM EST Office Visit [facility] RHEUMATOLOGY [facility] [address] [place] [address] Jessica Cortes MD [address] [facility] [address] [place] [address] 01/25/2025 9:00 AM EDT [address]ointment [address] [place] [address] 05/09/2025 11:00 AM EDT [address]ment [address] [place] [address] 05/09/2025 11:15 AM EDT [address]ointment [address] [place] [address] Susana Garay MD [address] [place] [address] [address] [place] [phone] documented as of this encounter Goals Goal Patient Goal Type Associated Problems Recent Progress Patient-Stated? Author Maintain a healthy diet, exercise regularly and maintain an ideal body weight General Porsche Ashley, RN documented as of this encounter Visit Diagnoses Not on filedocumented in this encounter Care Teams Hand Pleater Relationship Specialty Start Date End Date Julisa Kerr MD [address] [place] [phone] PCP - General 02/22/11 Jessica Cortes MD [address] [place] [phone] Internal Medicine-Rheumatology 04/26/16 documented as of this encounter
--- OUTSIDE RECORDS SUMMARY | 2024-08-22 21:47 | XMS_ITS | Encounter Summary ---
Author Organization [place] [address] Care Team Providers Care Farm Service Consultant Name Role Phone Julisa Kerr MD Primary Care Provider [phone] Jessica Cortes MD Unavailable [phone] Reason for Visit * Reason Onset Date Comments Symptom Call 04/16/2021 stomach virus, c onstant diarrhea, x3 weeks Encounter Details Date Type Department Care Team (Late st Contact Info) Description 04/16/2021 Telephone [facility] [address] [place] [address] Julisa Kerr MD [address] [place] [address] Symptom Call (stomach virus, constant diarrhea, x3 weeks) Social History Tobacco Use Types Packs/Day Years [...] Refills Last Filled Start Date End Date loperamide (IMODIUM) 2 mg Oral Capsule Take 1 Cap by mouth 4 times daily as needed for Diarrhea. 50 Cap 04/16/2021 02/12/2022 ondansetron (ZOFRAN) 8 mg Oral Tablet Take 1 Tab by mouth every 8 hours as needed for up to 3 days. 30 Tab 04/16/2021 04/19/2021 documented in this encounter Miscellaneous Notes * Addendum Note - Tommie Rebollar DO - 04/16/2021 12:33 PM EDTAddended by: TOMMIE REBOLLAR on: 04/16/2021 12:33 PM Modules accepted: Orders * Telephone Encounter - Tommie Rebollar DO - 04/16/2021 12:32 PM EDT meds ordered at pharmacy * Telephone Encounter - Gina Dupont - 04/16/2021 10:51 AM EDT Symptoms Call Who is reporting the symptoms: Patient What symptom(s) is the patient experiencing: stomach virus, constant diarrhea How long have symptoms been present: 3 week(s) ago Has the patient been seen for this: no Has the patient tried anything to relieve the symptoms and did it help: Yes over the counter meds. If pain, what level on scale 1-10 (10 being the greatest): No Pain Desired Outcome: Rx, something to help with the symptoms. Pharmacy & Location: [id number] [place] [address] [address] [facility] [phone] Additional Notes:please advise. documented in this encounter Plan of Treatment Upcoming Encounters Date Type Department Care Team (Late st Contact Info) Description 08/31/2024 8:30 AM EST [address]ment [address] [place] [address] 10/25/2024 10:45 AM EST Office Visit [facility] [address] [place] [address] [address] [place] [id number] Jessica Cortes MD [address] [place] [address] [address] [place] [address] 01/25/2025 9:00 AM EDT [address]ointment [address] [place] [address] 05/09/2025 11:00 AM EDT Appointment [place] [address] [place] [address] 05/09/2025 11:15 AM EDT Appointment [address] [place] [address] Susana Garay MD [address] [place] [address] [place] [id number] documented as of this encounter Goals Goal Patient Goal Type Associated Problems Recent Progress Patient-Stated? Author Maintain a healthy diet, exercise regularly and maintain an ideal body weight General Porsche Ashley, RN documented as of this encounter Visit Diagnoses Not on filedocumented in this encounter Care Teams Farm Service Consultant Relationship Specialty Start Date End Date Julisa Kerr MD [address] [place] [address] PCP - General 02/22/11 Jessica Cortes MD [address] [address] Internal Medicine-Rheumatology 04/26/16 documented as of this encounter
--- OUTSIDE RECORDS SUMMARY | 2024-08-22 21:47 | XMS_ITS | Encounter Summary ---
Author Organization [place] [address] Care Team Providers Care Colloid Mill Operator Name Role Phone Julisa Kerr MD Primary Care Provider [phone] Jessica Cortes MD Unavailable [phone] Encounter Details Date Type Department Care Team (Late st Contact Info) Description 05/27/2021 3:30 [place] [address] Rivka Charles, JOSE [address] [place], [place] [id number] Rheumatoid arthritis involving multiple sites with positive [...] documented in this encounter Progress Notes * Rivka Charles APRN - 05/27/2021 3:30 PM EDT Patient presents for video visit with c/o rheumatoid arthritis flare. Trying to schedule appointment through MyChart with automation driver and mistakenly scheduled with me. Appointment ended and patient states she will reschedule appointment with automation driver. documented in this encounter Plan of Treatment Upcoming Encounters Date Type Department Care Team (Late st Contact Info) Description 08/31/2024 8:30 AM EST Appointment [facility] [address] [place] [address] 10/25/2024 10:45 AM EST Office Visit [facility] [address] [place] [phone] Jessica Cortes MD [address] [facility] [address] [place] [address] 01/25/2025 9:00 AM EDT Appointment [place] [address] [place] [address] 05/09/2025 11:00 AM EDT [address]ointment [address] [place] [address] 05/09/2025 11:15 AM EDT Appointment [place] [address] [place] [address] Susana Garay MD [address] [place] [address] [address] [place], [place] [id number] documented as of this encounter Goals Goal Patient Goal Type Associated Problems Recent Progress Patient-Stated? Author Maintain a healthy diet, exercise regularly and maintain an ideal body weight General Porsche Ashley, RN documented as of this encounter Visit Diagnoses Diagnosis 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 documented in this encounter Care Teams Colloid Mill Operator Relationship Specialty Start Date End Date Julisa Kerr MD [address] [place] [address] PCP - General 02/22/11 Jessica Cortes MD [address] [address] Internal Medicine-Rheumatology 04/26/16 documented as of this encounter
--- OUTSIDE RECORDS SUMMARY | 2024-08-22 21:47 | XMS_ITS | Encounter Summary ---
Author Organization [place] [address] Care Team Providers Care Graves Registration Specialist Name Role Phone Julisa Kerr MD Primary Care Provider [phone] Jessica Cortes MD Unavailable [phone] Reason for Visit * Reason Comments Medication Refill Encounter Details Date Type Department Care Team (Late st Contact Info) Description 06/03/2021 Refill SEP [facility] 100 [place] [address] Tommie Rebollar, DO 100 [place], [place] [id number] Medication Refill Social History Tobacco Use Types [...] or suspected to have Coronavirus / COVID-19? Unable to assess 06/01/2021 10:50 AM EDT documented as of this encounter [...] Refills Last Filled Start Date End Date PROAIR HFA 90 mcg/actuation Inhl HFA Aerosol Inhaler TAKE 2 PUFFS BY MOUTH EVERY 6 HOURS NEEDED FOR WHEEZE 8 g 06/05/2021 06/27/2021 documented in this encounter Plan of Treatment Upcoming Encounters Date Type Department Care Team (Late st Contact Info) Description 08/31/2024 8:30 AM EST Appointment [facility] [address] [place] [address] 10/25/2024 10:45 AM EST Office Visit [facility]G RHEUMATOLOGY [facility] 651 [facility] [address] [place] [address] Jessica Cortes MD 6[address] [facility] Building 19 [place] [address] 01/25/2025 9:00 AM EDT Appointment [place] [address] [place] [address] 05/09/2025 11:00 AM EDT Appointment [facility] [place] [address] 05/09/2025 11:15 AM EDT Appointment [facility] [place] [address] Susana Garay MD [address] [place] [address] [place] [address] documented as of this encounter Goals Goal Patient Goal Type Associated Problems Recent Progress Patient-Stated? Author Maintain a healthy diet, exercise regularly and maintain an ideal body weight General Porsche Ashley RN documented as of this encounter Visit Diagnoses Not on filedocumented in this encounter Discontinued Medications Medication Sig Discontinue Reason Start Date End Da te PROAIR HFA 90 mcg/actuation Inhl HFA Aerosol Inhaler INHALE 2 PUFFS INTO THE LUNGS EVERY 6 HOURS NEEDED FOR WHEEZING 05/14/2021 06/05/2021 documented as of this encounter Additional Health Concerns Infection Onset Date Last Indicated Resolved Time COVID-19 06/01/2021 06/01/2021 06/21/2021 10:1 3 PM EDT documented as of this encounter Care Teams Graves Registration Specialist Relationship Specialty Start Date End Date Julisa Kerr MD 100 [place], [place] [id number] PCP - General 02/22/11 Jessica Cortes MD [address] [address] Internal Medicine-Rheumatology 04/26/16 documented as of this encounter
--- OUTSIDE RECORDS SUMMARY | 2024-08-22 21:47 | XMS_ITS | Encounter Summary ---
Author Organization [place] [address] Care Team Providers Care Preschool Principal Name Role Phone Julisa Kerr MD Primary Care Provider [phone] Jessica Cortes MD Unavailable [phone] Reason for Visit * Reason Onset Date Comments Medication Refill 04/23/2021 Proventil Encounter Details Date Type Department Care Team (Late st Contact Info) Description 04/23/2021 Telephone [facility] 100 [place] [address] Julisa Kerr MD 100 [place] [address] Medication Refill (Proventil) Social History Tobacco Use Types Packs/Day Years [...] Refills Last Filled Start Date End Date albuterol (VENTOLIN HFA) 90 mcg/actuation Inhl HFA Aerosol Inhaler Inhale 2 Puffs into the lungs every 6 hours as needed. for wheezing 1 Inhaler 04/23/2021 documented in this encounter Miscellaneous Notes * Telephone Encounter - Mel Donald - 04/23/2021 11:04 AM EDT Medication Refill Who is requesting the refill: Patient Medication(s)Name/Dosage/Frequency: albuterol (PROVENTIL;VENTOLIN) 90 mcg/actuation inhaler 1 Inhaler 2 11/18/2012 02/16/2013 Sig - Route: Inhale 2 Puffs into the lungs every 4 hours as needed for Wheezing for 90 days. - Inhalation could not pend due to not currently taking Did patient contact the pharmacy first: No How many days left on hand: None Future appt date w/ prescribing provider: 04/26/[address] Kerr Pharmacy & Location: [facility] Additional Notes: Please call and advise if able to call in. Patient stated her allergies have been very bad and is having difficulty breathing occassionally documented in this encounter Plan of Treatment Upcoming Encounters Date Type Department Care Team (Late st Contact Info) Description 08/31/2024 8:30 AM EST Appointment [place] [address] [place] [address] 10/25/2024 10:45 AM EST Office Visit EDG RHEUMATOLOGY [facility] [address] [place] [address] Jessica Cortes MD [address] 19 [place] [address] 01/25/2025 9:00 AM EDT Appointment [place] [address] [place] [address] 05/09/2025 11:00 AM EDT Appointment [place] [address] [address] [place] [address] 05/09/2025 11:15 AM EDT Appointment [address] [place] [address] Susana Garay MD [address] [place] [address] documented as of this encounter Goals Goal Patient Goal Type Associated Problems Recent Progress Patient-Stated? 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 RN documented as of this encounter Visit Diagnoses Not on filedocumented in this encounter Discontinued Medications Medication Sig Discontinue Reason Start Date End Da te VENTOLIN HFA 90 mcg/actuation Inhl HFA Aerosol Inhaler INHALE TWO PUFFS BY MOUTH EVERY 6 HOURS NEEDED FOR WHEEZING Reorder 12/04/2016 04/23/2021 documented as of this encounter Care Teams Preschool Principal Relationship Specialty Start Date End Date Julisa Kerr MD 100 [place] [address] PCP - General 02/22/11 Jessica Cortes MD [address] [facility] 19 [place] [id number] Internal Medicine-Rheumatology 04/26/16 documented as of this encounter
--- OUTSIDE RECORDS SUMMARY | 2024-08-22 21:47 | XMS_ITS | Encounter Summary ---
Author Organization [facility] [place] [address] Care Team Providers Care Clinic Clerk Name Role Phone Julisa Kerr MD Primary Care Provider [phone] Jessica Cortes MD Unavailable [phone] Encounter Details Date Type Department Care Team (Latest Contact Info) Description 05/24/2021 Travel Social History Tobacco Use Types Packs/Day [...] Info) Description 08/31/2024 8:30 AM EST Appointment [address] [place] [address] 10/25/2024 10:45 AM EST Office Visit EDG RHEUMATOLOGY [facility] [address] [place] [address] Jessica Cortes MD [address] [place] [address] 01/25/2025 9:00 AM EDT Appointment [address] [place] [address] 05/09/2025 11:00 AM EDT Appointment [address] [place] [place] [address] 05/09/2025 11:15 AM EDT Appointment [address] [place] [address] Susana Garay MD [address] [place] [address] [place] [address] documented as of this encounter Goals Goal Patient Goal Type Associated Problems Recent Progress Patient-Stated? 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, RN documented as of this encounter Visit Diagnoses Not on filedocumented in this encounter Care Teams Clinic Clerk Relationship Specialty Start Date End Date Julisa Kerr MD 100 [place] [id number] PCP - General 02/22/11 Jessica Cortes MD 651 [place] [address] Internal Medicine-Rheumatology 04/26/16 documented as of this encounter
--- OUTSIDE RECORDS SUMMARY | 2024-08-22 21:47 | XMS_ITS | Encounter Summary ---
Author Organization [place] [address] Care Team Providers Care Wire Harness Assembler Name Role Phone Julisa Kerr MD Primary Care Provider [phone] Jessica Cortes MD Unavailable [phone] Encounter Details Date Type Department Care Team (Latest Contact Info) Description 07/30/2021 1:34 PM EDT - 07/30/2021 11:59 PM EDT Hospital Encounter [facility] [address] [place] [address] Rheumatoid arthritis involving multiple sites [...] this encounter Medications at Time of Discharge leflunomide (ARAVA) 10 mg Oral TabletIndications :Rheumatoid arthritis involving multiple sites with positive rheumatoid factor (HCC) Take 1 Tablet by mouth daily. 30 Tablet 1 06/21/2021 08/22/2021 documented as of this encounter Discharge Disposition Disposition Code Departure Means Destination Home or Self Care documented in this encounter Plan of Treatment Upcoming Encounters Date Type Department Care Team (Late st Contact Info) Description 08/31/2024 8:30 AM EST Appointment [facility] [address] [place] [address] 10/25/2024 10:45 AM EST Office Visit EDG RHEUMATOLOGY [facility] [address] [facility] [address] [place] [address] Jessica Cortes MD [address] [facility] Building 19 [place] [address] 01/25/2025 9:00 AM EDT Appointment [place] [address] [address] [place] [address] 05/09/2025 11:00 AM EDT Appointment [facility] [place] [place] [address] 05/09/2025 11:15 AM EDT Appointment [facility] [place] [address] Susana Garay MD [address] [place] [address] [place] [address] documented as of this encounter Goals Goal Patient Goal Type Associated Problems Recent Progress Patient-Stated? Author Maintain a healthy diet, exercise regularly and maintain an ideal body weight General Porsche Ashley RN documented as of this encounter Procedures Procedure Name Priority Date/Time Associated Diagnosis Comments SEDIMENTATION RATE AUTOMATED Routine 07/30/2021 1:32 PM EDT Rheumatoid arthritis involving multiple sites with positive rheumatoid factor (HCC) Therapeutic drug monitoring CBC WITH DIFF Routine 07/30/2021 1:32 PM EDT Rheumatoid arthritis involving multiple sites with positive rheumatoid factor (HCC) Therapeutic drug monitoring C-REACTIVE PROTEIN Routine 07/30/2021 1: 32 PM EDT Rheumatoid arthritis involving multiple sites with positive rheumatoid factor (HCC) Therapeutic drug monitoring COMPREHENSIVE METABOLIC PANEL Routine 07/30/2021 1:32 PM EDT Rheumatoid arthritis involving multiple sites with positive rheumatoid factor (HCC) Therapeutic drug monitoring documented in this encounter Results * SEDIMENTATION RATE AUTOMATED (07/30/2021 1:32 PM EDT) Sed Rate 8 0 - 30 mm/hr 07/30/2021 8:10 PM EDT [facility] Blood Venipuncture / Unknown 07/30/2021 1:32 PM EDT 07/30/2021 1:32 PM EDT us Jessica Cortes MD HEMATOLOGY ORDERABLES Fin al Result Performing Organization Address City/[facility]/ZIP Co de Phone Number [facility] [address] [place] [phone] * (ABNORMAL) C-REACTIVE PROTEIN (07/30/2021 1:32 PM EDT) CRP 11.17(H) <=5.00 mg/L 07/30/2021 8:59 PM EDT [facility] Blood Venipuncture / Unknown 07/30/2021 1:32 PM EDT 07/30/2021 1:32 PM EDT us Jessica Cortes MD CHEMISTRY ORDERABLES Siobhan l Result Performing Organization Address [facility]/ZIP Co de Phone Number [facility] 1 [facility], [place] [address] * (ABNORMAL) COMPREHENSIVE METABOLIC PANEL (07/30/2021 1:32 PM EDT) Sodium 138 136 - 145 mmol/L 07/30/2021 8:35 PM EDT [facility] Potassium 3.5 3.5 - 5.0 mmol/L 07/30/2021 8:35 PM EDT [facility] Chloride 99 98 - 107 mmol/L 07/30/2021 8:35 PM EDT [facility] Total CO2 26 22 - 29 mmol/L 07/30/2021 8:35 PM EDT [facility] Anion Gap 13 7 - 16 mmol/L 07/30/2021 8:35 PM EDT [facility] Calcium 9.2 8.6 - 10.4 mg/dL 07/30/2021 8:35 PM EDT [facility] Glucose Lvl 139(H) 74 - 100 mg/dL 07/30/2021 8:35 PM EDT [facility] BUN 9 6 - 20 mg/dL 07/30/2021 8:35 PM EDT [facility] Creatinine 0.87 0.51 - 1.30 mg/dL 07/30/2021 8:35 PM EDT [facility] Albumin 3.9 3.5 - 5.2 gm/dL 07/30/2021 8:35 PM EDT [facility] Total Protein 6.6 6.4 - 8.3 gm/dL 07/30/2021 8:35 PM EDT [facility] Bili Total 0.2 0.1 - 1.3 mg/dL 07/30/2021 8:35 PM EDT [facility] ALT 9 <=41 U/L 07/30/2021 8:35 PM EDT [facility] AST 12 <=40 U/L 07/30/2021 8:35 PM EDT [facility] Alk Phos 94 36 - 123 U/L 07/30/2021 8:35 PM EDT [facility] GFR Afr Am 90 >=60 mL/min/1.7 3 m2 07/30/2021 8:35 PM EDT [facility] GFR Non Afr Am 78 >=60 mL/min/1.7 3 m2 07/30/2021 8:35 PM EDT [facility] Comment: This estimated GFR was calculated using CKD-EPI equation which is modified based on ethnicity for Non Americans and Americans. Both results are reported since it is not always possible to determine the patient's ethnicity. This equation should only be used for individuals 18 and older. It has not been validated for use with the elderly (>70 years), women, or in some racial or ethnic subgroups, such as Hispanics. The equation will be less accurate in people with differences in nutritional status or muscle mass. Blood Venipuncture / Unknown 07/30/2021 1:32 PM EDT 07/30/2021 1:32 PM EDT us Jessica Cortes MD CHEMISTRY ORDERABLES Siobhan finnegan Result [facility] 1 [facility] , [address] [place] [phone] [facility] 1 [place] [address] * (ABNORMAL) CBC WITH DIFF (07/30/2021 1:32 PM EDT) [facility] Signature WBC 11.2(H) 3.7 - 10.3 x10(3)/mcL 07/30/2021 7:52 PM EDT [facility] RBC 5.09 3.90 - 5.20 x10(6)/mcL 07/30/2021 7:52 PM EDT [facility] Hgb 13.5 11.2 - 15.7 g/dL 07/30/2021 7:52 PM EDT [facility] Hct 45.1(H) 34.0 - 45.0 % 07/30/2021 7:52 PM EDT [facility] MCV 88.6 80.0 - 100.0 fL 07/30/2021 7:52 PM EDT [facility] MCH 26.5 26.0 - 34.0 pg 07/30/2021 7:52 PM EDT [facility] MCHC 29.9(L) 30.7 - 35.5 g/dL 07/30/2021 7:52 PM EDT [facility] RDW 15.6(H) <=14.9 % 07/30/2021 7:52 PM EDT [facility] Platelet 382(H) 155 - 369 x10(3)/mcL 07/30/2021 7:52 PM EDT [facility] MPV 10.7 8.8 - 12.5 fL 07/30/2021 7:52 PM EDT [facility] Neut Percent 56.2 % 07/30/2021 7:52 PM EDT [facility] Comment:Neutrophils equals s egs plus bands Imm Gran% 1.3 % 07/30/2021 7:52 PM EDT [facility] Comment:Automated count of m etamyelocytes, myelocytes and promyelocytes. IG >1% represents a left shift and provides an early indication of an infection or inflammatory process. Lymph Percent 31.3 % 07/30/2021 7:52 PM EDT [facility] [place] Percent 8.8 % 07/30/2021 7:52 PM EDT [facility] Eos Percent 1.8 % 07/30/2021 7:52 PM EDT [facility] Baso Percent 0.6 % 07/30/2021 7:52 PM EDT [facility] Neut # 6.3(H) 1.6 - 6.1 x10(3)/[facility] 07/30/2021 7:52 PM EDT [facility] Comment:Neutrophils equals s egs plus bands IMMGRAN# 0.2(H) 0.0 - 0.1 x10(3)/[facility] 07/30/2021 7:52 PM EDT [facility] Comment:Automated count of m etamyelocytes, myelocytes and promyelocytes. An absolute IG <0.1 is reported as 0.0. Lymph # 3.5 1.2 - 3.9 x10(3)/[facility] 07/30/2021 7:52 PM EDT [facility] [place] # 1.0(H) 0.3 - 0.9 x10(3)/[facility] 07/30/2021 7:52 PM EDT [facility] Eos# 0.2 0.0 - 0.5 x10(3)/[facility] 07/30/2021 7:52 PM EDT [facility] [place] # 0.1 0.0 - 0.1 x10(3)/[facility] 07/30/2021 7:52 PM EDT [facility] Blood Venipuncture / Unknown 07/30/2021 1:32 PM EDT 07/30/2021 1:32 PM EDT Jessica Cortes MD HEMATOLOGY ORDERABLES Fin al Result [facility] 1 [facility] , [place] [address] documented in this encounter Visit Diagnoses Diagnosis Rheumatoid arthritis involving multiple sites with positive rheumatoid factor (HCC) Therapeutic drug monitoring Encounter for therapeutic drug monitoring documented in this encounter Care Teams Wire Harness Assembler Relationship Specialty Start Date End Date Julisa Kerr MD 100 [place] [address] PCP - General 02/22/11 Jessica Cortes MD 651 [place] [address] Internal Medicine-Rheumatology 04/26/16 documented as of this encounter
--- OUTSIDE RECORDS SUMMARY | 2024-08-22 21:47 | XMS_ITS | Encounter Summary ---
Author Organization [place] [address] Care Team Providers Care Production Aide Name Role Phone Julisa Kerr MD Primary Care Provider [phone] Jessica Cortes MD Unavailable [phone] Reason for Visit * Reason Comments Medication Refill Encounter Details Date Type Department Care Team (Late st Contact Info) Description 06/27/2021 Refill [facility]P [facility] 100 [place] [address] Tommie Rebollar, DO [address] [place], [place] [id number] Medication Refill Social History Tobacco Use Types [...] have Coronavirus / COVID-19? No / Unsure 06/20/2021 10:34 AM EDT documented as of this encounter [...] HOURS NEEDED FOR WHEEZE 8.5 Each 3 06/27/2021 06/10/2023 documented in this encounter Plan of Treatment Upcoming Encounters Date Type Department Care Team (Late st Contact Info) Description 08/31/2024 8:30 AM EST Appointment [facility] [address] [place] [address] 10/25/2024 10:45 AM EST Office Visit [facility] R[facility]UMAT[facility] [address] [facility] [address] [place] [address] Jessica Cortes MD [address] [facility] Building 19 [place] [address] 01/25/2025 9:00 AM EDT Appointment [address] [place] [address] 05/09/2025 11:00 AM EDT [address]ointment [address] [place] [address] 05/09/2025 11:15 AM EDT Appointment [address] [place] [address] Susana Garay MD [address] [place] [address] [address] [place], [place] [id number] documented as of this encounter Goals Goal [...] MOUTH EVERY 6 HOURS NEEDED FOR WHEEZE 06/05/2021 06/27/2021 documented as of this encounter Care Teams Production Aide Relationship Specialty Start Date End Date Julisa Kerr MD [address] [place], [place] [id number] PCP - General 02/22/11 Jessica Cortes MD [address] [id number] Internal Medicine-Rheumatology 04/26/16 documented as of this encounter
--- OUTSIDE RECORDS SUMMARY | 2024-08-22 21:47 | XMS_ITS | Encounter Summary ---
Author Organization [place] [address] Care Team Providers Care Insole Beveler Name Role Phone Julisa Kerr MD Primary Care Provider [phone] Jessica Cortes MD Unavailable [phone] Reason for Visit * Reason Comments Medication Refill Encounter Details Date Type Department Care Team (Late st Contact Info) Description 03/16/2021 Refill SEP Rheumatology [facility] 651 [facility] Building [address] [place] [address] Jessica Cortes MD [address] [address] Medication Refill Social History Tobacco [...] have Coronavirus / COVID-19? No / Unsure 03/01/2021 11:30 AM EDT documented as of this encounter [...] 1 TABLET BY MOUTH EVERY DAY 30 Tab 03/16/2021 06/21/2021 documented in this encounter Plan of Treatment Upcoming Encounters Date Type Department Care Team (Late st Contact Info) Description 08/31/2024 8:30 AM EST Appointment [facility] [address] [place] [address] 10/25/2024 10:45 AM EST Office Visit [facility]G RHEUMATOLOGY [facility] [address] [facility] [address] [place] [address] Jessica Cortes MD [address] [facility] Building 19 [place] [address] 01/25/2025 9:00 AM EDT Appointment [place] [address] [place] [address] 05/09/2025 11:00 AM EDT Appointment [facility] [place] [address] 05/09/2025 11:15 AM EDT Appointment [place] [address] Susana Garay MD [address] [place] [address] [place] [address] documented as of this encounter Goals Goal [...] TAKE 1 TABLET BY MOUTH EVERY DAY 02/12/2021 03/16/2021 documented as of this encounter Care Teams Insole Beveler Relationship Specialty Start Date End Date Julisa Kerr MD 100 [place] [address] PCP - General 02/22/11 Jessica Cortes MD 651 [facility] 19 [place], [place] [address] Internal Medicine-Rheumatology 04/26/16 documented as of this encounter
--- OUTSIDE RECORDS SUMMARY | 2024-08-22 21:47 | XMS_ITS | Encounter Summary ---
Author Organization [place] [address] Care Team Providers Care Customer Specialist Name Role Phone Julisa Kerr MD Primary Care Provider [phone] Jessica Cortes MD Unavailable [phone] Reason for Visit * Reason Comments Medication Refill Encounter Details Date Type Department Care Team (Late st Contact Info) Description 06/17/2021 Refill [facility] 100 [place] [address] Julisa Kerr MD 100 [place] [address] Medication Refill Social History Tobacco Use Types [...] Date End Date cyanocobalamin 1,000 mcg/mL Inj Solution INJECT 1ML INTO THE MUSCLE EVERY MONTH 1 mL 3 06/18/2021 02/12/2022 documented in this encounter Plan of Treatment Upcoming Encounters Date Type Department Care Team (Late st Contact Info) Description 08/31/2024 8:30 AM EST Appointment [address] [place] [address] 10/25/2024 10:45 AM EST Office Visit [facility]G RHEUMATOLOGY [facility] [address] [facility] [address] [place] [address] Jessica Cortes MD [address] [facility] Building 19 [place] [address] 01/25/2025 9:00 AM EDT Appointment [address] [place] [address] 05/09/2025 11:00 AM EDT Appointment [facility] [place] [address] 05/09/2025 11:15 AM EDT Appointment [facility] [place] [address] Susana Garay MD [address] [place] [address] [address] [place] [id number] documented as of this encounter Goals Goal Patient Goal Type Associated Problems Recent Progress Patient-Stated? Author Maintain a healthy diet, exercise regularly and maintain an ideal body weight General Porsche Ashley RN documented as of this encounter Visit Diagnoses Not on filedocumented in this encounter Discontinued Medications Medication Sig Discontinue Reason Start Date End Da te cyanocobalamin 1,000 mcg/mL Inj Solution INJECT 1ML INTO THE MUSCLE EVERY MONTH 02/15/2021 06/18/2021 documented as of this encounter Additional Health Concerns Infection Onset Date Last Indicated Resolved Time COVID-19 06/01/2021 06/01/2021 06/21/2021 10:1 3 PM EDT documented as of this encounter Care Teams Customer Specialist Relationship Specialty Start Date End Date Julisa Kerr MD 100 [place] [address] PCP - General 02/22/11 Jessica Cortes MD [address] [address] Internal Medicine-Rheumatology 04/26/16 documented as of this encounter
--- OUTSIDE RECORDS SUMMARY | 2024-08-22 21:47 | XMS_ITS | Encounter Summary ---
Author Organization [facility] [place] [place] [address] Care Team Providers Care Clinical Lab Technologist Name Role Phone Julisa Kerr MD Primary Care Provider [phone] Jessica Cortes MD Unavailable [phone] Encounter Details Date Type Department Care Team (Latest Contact Info) Description 03/01/2021 Travel Social History Tobacco Use Types Packs/Day [...] Description 08/31/2024 8:30 AM EST [address]ointment [address] [place] [address] 10/25/2024 10:45 AM EST Office Visit [facility] [address] [place] [address] Jessica Cortes MD [address] [facility] [address] [place] [address] 01/25/2025 9:00 AM EDT [address]ointment [address] [place] [address] 05/09/2025 11:00 AM EDT Appointment [address] [place] [address] 05/09/2025 11:15 AM EDT Appointment [address] [place] [address] Susana Garay MD [address] [place] [address] [address] [place] [id number] documented as of this encounter Goals Goal Patient Goal Type Associated Problems Recent Progress Patient-Stated? Author Maintain a healthy diet, exercise regularly and maintain an ideal body weight General Porsche Ashley, RN documented as of this encounter Visit Diagnoses Not on filedocumented in this encounter Care Teams Clinical Lab Technologist Relationship Specialty Start Date End Date Julisa Kerr MD [address] [place] [id number] PCP - General 02/22/11 Jessica Cortes MD [address] [place] [id number] Internal Medicine-Rheumatology 04/26/16 documented as of this encounter
--- OUTSIDE RECORDS SUMMARY | 2024-08-22 21:47 | XMS_ITS | Encounter Summary ---
Author Organization [place] [place] [address] Care Team Providers Care Syrup Shed Supervisor Name Role Phone Julisa Kerr MD Primary Care Provider [phone] Jessica Cortes MD Unavailable [phone] Reason for Visit * Reason Comments Medication Refill Encounter Details Date Type Department Care Team (Late st Contact Info) Description 05/12/2021 Refill [facility] [address] [place] [address] Tommie Rebollar, DO 100 [place], [place] [id number] Medication Refill Social History Tobacco Use Types [...] No 11/22/2020 3:41 PM Albin Blaek MA * Does this person have serious [...] LUNGS EVERY 6 HOURS NEEDED FOR WHEEZING 8.5 Inhaler 05/14/2021 documented in this encounter Plan of Treatment Upcoming Encounters Date Type Department Care Team (Late st Contact Info) Description 08/31/2024 8:30 AM EST Appointment [address] [place] [address] 10/25/2024 10:45 AM EST Office Visit [facility] [address] [facility] [address] [place] [address] Jessica Cortes MD [address] [facility] Building [address] [place] [address] 01/25/2025 9:00 AM EDT Appointment [place] [address] [place] [address] 05/09/2025 11:00 AM EDT Appointment [facility] [address] [place] [address] 05/09/2025 11:15 AM EDT Appointment [facility] [place]avi [place] [id number] Susana Garay MD [address] [place] [address] [place] [address] documented as of this encounter Goals Goal Patient Goal Type Associated Problems Recent Progress Patient-Stated? 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, RN documented as of this encounter Visit Diagnoses Not on filedocumented in this encounter Discontinued Medications Medication Sig Discontinue Reason Start Date End Da te albuterol (VENTOLIN HFA) 90 mcg/actuation Inhl HFA Aerosol Inhaler Inhale 2 Puffs into the lungs every 6 hours as needed. for wheezing 04/23/2021 05/14/2021 documented as of this encounter Care Teams Syrup Shed Supervisor Relationship Specialty Start Date End Date Julisa Kerr MD 100 [place] [address] PCP - General 02/22/11 Jessica Cortes MD [address] [address] Internal Medicine-Rheumatology 04/26/16 documented as of this encounter
--- OUTSIDE RECORDS SUMMARY | 2024-08-22 21:47 | XMS_ITS | Encounter Summary ---
Author Organization [facility] [place] [address] Care Team Providers Care Line Installer Trolley Name Role Phone Julisa Kerr MD Primary Care Provider [phone] Jessica Cortes MD Unavailable [phone] Reason for Visit * Reason Comments Medication Refill Encounter Details Date Type Department Care Team (Late st Contact Info) Description 02/15/2021 Refill [facility] 100 [place] [address] Julisa Kerr MD 100 [place] [address] Medication Refill Social History Tobacco Use Types [...] have Coronavirus / COVID-19? No / Unsure 02/06/2021 12:43 PM EDT documented as of this encounter [...] THE MUSCLE EVERY MONTH 1 mL 3 02/15/2021 06/18/2021 documented in this encounter Plan of Treatment Upcoming Encounters Date Type Department Care Team (Late st Contact Info) Description 08/31/2024 8:30 AM EST Appointment [address] [place] [address] 10/25/2024 10:45 AM EST Office Visit [facility] [address] [facility] [address] [place] [address] Jessica Cortes MD [address] [facility] Building [address] [place] [address] 01/25/2025 9:00 AM EDT Appointment [address] [place] [address] 05/09/2025 11:00 AM EDT Appointment [facility] [place] [address] 05/09/2025 11:15 AM EDT Appointment [facility] [place] [address] Susana Garay MD [address] [place] [address] [place] [address] documented as of this encounter Goals [...] INJECT 1ML INTO THE MUSCLE EVERY MONTH 10/30/2020 02/15/2021 documented as of this encounter Care Teams Line Installer Trolley Relationship Specialty Start Date End Date Julisa Kerr MD [address] [place], [place] [id number] PCP - General 02/22/11 Jessica Cortes MD [address] [address] Internal Medicine-Rheumatology 04/26/16 documented as of this encounter
--- OUTSIDE RECORDS SUMMARY | 2024-08-22 21:47 | XMS_ITS | Encounter Summary ---
Author Organization [facility] [place] [address] Care Team Providers Care Nailhead Puncher Name Role Phone Julisa Kerr MD Primary Care Provider [phone] Jessica Cortes MD Unavailable [phone] Reason for Visit * Reason Comments Joint Swelling getting worse Sinusitis Encounter Details Date Type Department Care Team (Late st Contact Info) Description 03/01/2021 10:30 AM EDT Office Visit [facility] 100 [place] [address] Tommie Rebollar, DO [address] [place], [place] [id number] Acute bacterial sinusitis (Primary Dx); Rheumatoid arthritis involving multiple sites with positive rheumatoid factor (HCC); Chronic pain of left ankle Social History Tobacco Use Types Packs/Day Years [...] Coronavirus / COVID-19? No / Unsure 03/01/2021 9:59 AM EDT documented as of this encounter Last Filed Vital Signs Vital Sign Reading Time Taken Comments Blood Pressure 120/80 03/01/2021 10:56 AM EDT Pulse - - Temperature 36.8 ??C (98.2 ??F) 03/01/2021 10:56 AM E DT Respiratory Rate - - Oxygen Saturation - - Inhaled Oxygen Concentration - - Weight 62.6 kg (138 lb) 03/01/2021 10:56 AM EDT Height 157.5 cm (5' 2 ) 03/01/2021 10:56 AM EDT Body Mass Index 25.24 03/01/2021 10:56 AM EDT documented in this encounter Functional [...] Refills Last Filled Start Date End Date amoxicillin (AMOXIL) 875 mg Oral TabletIndications:A cute bacterial sinusitis Take 1 Tab by mouth 2 times daily for 10 days. 20 Tab 03/01/2021 03/11/2021 documented in this encounter Progress Notes * Tommie Rebollar DO - 03/01/2021 10:30 AM EDT Vitals: 03/01/21 1056 BP: 120/80 Temp: 98.2 ??F (36.8 ??C) TempSrc: Tympanic Weight: 138 lb (62.6 kg) Height: 5' 2 (1.575 m) SUBJECTIVE: Chief Complaint Patient presents with ??? Joint Swelling getting worse ??? Sinusitis HPI: Joint Swelling The pain is present in the right ankle. This is a recurrent problem. The current episode started more than 1 month ago. The problem occurs daily. The problem has been unchanged. The quality of the pain is described as aching. The pain is at a severity of 8/10. The pain is severe. Associated symptoms include joint swelling. Pertinent negatives include no fever or inability to bear weight. The symptoms are aggravated by activity. The treatment provided no relief. Sinusitis This is a new problem. The current episode started in the past 7 days. The problem is unchanged. The maximum temperature recorded prior to her arrival was 101 - 101.9 F. The fever has been present for 1 to 2 days. She is experiencing no pain. Associated symptoms include congestion, coughing and sinus pressure. Past treatments include oral decongestants. The treatment provided no relief. Presents today for eval of sinus pressure, cough, congestion. Denies fever, chills. No body aches. Also presents for eval of diffuse arthralgia. Under care of rheumatology. Reports pain has been worsening Also presents for eval of left ankle pain Review of Systems Constitutional: Negative for fatigue and fever. HENT: Positive for congestion and sinus pressure. Respiratory: Positive for cough. Gastrointestinal: Negative for abdominal pain, diarrhea, nausea and vomiting. Genitourinary: Negative for dysuria. Musculoskeletal: Positive for joint swelling. Skin: Negative for rash. Psychiatric/Behavioral: The patient is not nervous/anxious. OBJECTIVE: Physical Exam Constitutional: Appearance: Normal appearance. HENT: Nose: Congestion present. Cardiovascular: Rate and Rhythm: Normal rate and regular rhythm. Heart sounds: Normal heart sounds. No murmur. Pulmonary: Effort: No respiratory distress. Breath sounds: Normal breath sounds. Abdominal: General: There is no distension. Palpations: Abdomen is soft. Musculoskeletal: General: Swelling and tenderness present. Comments: deformities noted to b/l wrists Neurological: Mental Status: She is alert and oriented to person, place, and time. Psychiatric: Mood and Affect: Mood normal. Behavior: Behavior normal. Assessment Diagnoses and all orders for this visit: Acute bacterial sinusitis - amoxicillin (AMOXIL) 875 mg Oral Tablet; Take 1 Tab by mouth 2 times daily for 10 days. Dispense:20 Tab; Refill: 0 - methylPREDNISolone acetate (DEPO-Medrol) injection 120 mg Rheumatoid arthritis involving multiple sites with positive rheumatoid factor (HCC) - methylPREDNISolone acetate (DEPO-Medrol) injection 120 mg F/u per rheumatology Chronic pain of left ankle - XR ANKLE LEFT AP AND LATERAL; Future Above problems were discussed with patient and all are stable except otherwise noted. Continue medications as prior. Refills done as requested. Blood work done. Will adjust medications by phone as needed based on lab results and as noted. Follow up for any changes and as directed Educated patient regarding the care plan and instructions listed on the After Visit Summary [AVS] for today's visit. The patient verbalized full understanding of the care plan and instructions given on the AVS for today's visit. documented in this encounter Plan of Treatment Upcoming Encounters Date Type Department Care Team (Late st Contact Info) Description 08/31/2024 8:30 AM EST Appointment [address] [place] [address] 10/25/2024 10:45 AM EST Office Visit [facility] [address] [place] [address] Jessica Cortes MD [address] [facility] Building [address] [place] [address] 01/25/2025 9:00 AM EDT Appointment [place] [address] [place] [address] 05/09/2025 11:00 AM EDT Appointment [facility] [place] [address] 05/09/2025 11:15 AM EDT Appointment [facility] [place] [place] [address] Susana Garay MD [address] [place] [address] [place] [address] documented as of this encounter Goals Goal Patient Goal Type Associated Problems Recent Progress Patient-Stated? 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 RN documented as of this encounter Results * XR ANKLE LEFT AP AND LATERAL (03/01/2021 11:46 AM EDT) Anatomical Region Laterality Modality Ankle Radiographic Fallon ging 03/01/2021 11:4 6 AM EDT Impressions 03/01/2021 11:51 AM EDT No acute osseous abnormality of the ankle. - Note: Radiology results need to be interpreted within a comprehensive clinical context. ??If you have questions about the radiology report, please contact the office of the ordering clinician. Narrative 03/01/2021 11:51 AM EDT XR ANKLE LEFT AP AND LATERAL, ??03/01/2021 11:46 AM CLINICAL HISTORY: ??M25.572-Pain in left ankle and joints of left [id number]-GRD-50-CM G89.29-Other chronic [id number]-28-CM COMPARISON: ??None. PROCEDURE COMMENTS: XR ANKLE LEFT AP AND LATERAL FINDINGS: The ankle mortise is congruent and there is no fracture. There is no joint effusion. Joint spaces overall well-maintained. No periostitis. Procedure Note Armando Salinas MD - 03/01/2021 XR ANKLE LEFT AP AND LATERAL, 03/01/2021 11:46 AM CLINICAL HISTORY: M25.572-Pain in left ankle and joints of [id number]-OMM-26-CM G89.29-Other chronic [id number]-[id number]-29-CM COMPARISON: None. PROCEDURE COMMENTS: XR ANKLE LEFT AP AND LATERAL FINDINGS: The ankle mortise is congruent and there is no fracture. Thereis no joint effusion. Joint spaces overall well-maintained. No periostitis. IMPRESSION: No acute osseous abnormality of the ankle. - Note: Radiology results need to be interpreted within a comprehensiveclinical context. If you have questions about the radiology report, please contactthe office of the ordering clinician. us Tommie Rebollar DO [facility] ORDERABL ES Final Result documented in this encounter Visit Diagnoses Diagnosis Acute bacterial sinusitis- Primary Acute sinusitis, unspecified Rheumatoid arthritis involving multiple sites with positive rheumatoid factor (HCC) Chronic pain of left ankle Chronic pain of left ankle documented in this encounter Administered Medications Inactive Administered Medications - up to 1 most recent administrations Medication Order MAR Action Action Date Dose Rate Site methylPREDNISolone acetate (DEPO-Medrol) injection 120 mg 120 mg, Intramuscular, ONCE, 1 dose, On Oxana 03/01/21 at 1115, Dx: 1. Acute bacterial sinusitis 2. Rheumatoid arthritis involving multiple sites with positive rheumatoid factor (HCC)Indications:Acute bacterial sinusitis,Rheumatoid arthritis involving multiple sites with positive rheumatoid factor (HCC) Given 03/01/2021 11:21 AM EDT 120 mg Right upper gluteus documented in this encounter Care Teams Nailhead Puncher Relationship Specialty Start Date End Date Julisa Kerr MD 100 [place] [address] PCP - General 02/22/11 Jessica Cortes MD [address] [address] Internal Medicine-Rheumatology 04/26/16 documented as of this encounter
--- OUTSIDE RECORDS SUMMARY | 2024-08-22 21:47 | XMS_ITS | Encounter Summary ---
Author Organization [place] [address] Care Team Providers Care Realty Specialist Name Role Phone Julisa Kerr MD Primary Care Provider [phone] Jessica Cortes MD Unavailable [phone] Reason for Visit * Reason Comments Medication Refill Encounter Details Date Type Department Care Team (Late st Contact Info) Description 07/18/2021 Refill [facility] 100 [place] [address] Julisa Kerr MD 100 [place] [address] Medication Refill Social History Tobacco Use Types [...] Refills Last Filled Start Date End Date folic acid (FOLVITE) 1 mg Oral TabletIndications: Rheumatoid arthritis involving multiple sites with positive rheumatoid factor (HCC) TAKE 1 TABLET BY MOUTH EVERY DAY 30 Tablet 11 07/19/2021 06/10/2023 amitriptyline (ELAVIL) 25 mg Oral TabletIndications: Insomnia, unspecified type TAKE 1 TABLET BY MOUTH EVERY DAY AT NIGHT 30 Tablet 2 07/19/2021 02/12/2022 busPIRone (BUSPAR) 10 mg Oral TabletIndications: Anxiety TAKE 1 TAB BY MOUTH 2 TIMES DAILY NEEDED. 60 Tablet 2 07/19/2021 02/12/2022 documented in this encounter Miscellaneous Notes * Telephone Encounter - Nalini Hampton CPhT - 07/19/2021 11:09 AM EDT Amitriptyline- Medication Refill Protocol not available for this medication. Routed to office staff. Buspirone- Medication Refill Protocol not available for this medication. Routed to office staff. Folic Acid- Medication Refill Protocol not available for this medication. Routed to office staff. documented in this encounter Plan of Treatment Upcoming Encounters Date Type Department Care Team (Late st Contact Info) Description 08/31/2024 8:30 AM EST Appointment [address] [place] [address] 10/25/2024 10:45 AM EST Office Visit [facility] [address] [place] [address] Jessica Cortes MD [address] [place] [address] 01/25/2025 9:00 AM EDT Appointment [address] [place] [address] 05/09/2025 11:00 AM EDT Appointment [address] [place] [address] 05/09/2025 11:15 AM EDT Appointment [address] [place] [address] Susana Garay MD [address] [place] [id number] documented as of this encounter Goals Goal Patient Goal Type Associated Problems Recent Progress Patient-Stated? 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, RN documented as of this encounter Visit Diagnoses Diagnosis Anxiety Anxiety state, unspecified Insomnia, unspecified type Rheumatoid arthritis involving multiple sites with positive rheumatoid factor (HCC) documented in this encounter Discontinued Medications Medication Sig Discontinue Reason Start Date End Da te busPIRone (BUSPAR) 10 mg Oral TabletIndications:Anxiety TAKE 1 TAB BY MOUTH 2 TIMES DAILY NEEDED. 04/19/2021 07/19/2021 amitriptyline (ELAVIL) 25 mg Oral TabletIndications:Insomni a, unspecified type TAKE 1 TABLET BY MOUTH EVERY DAY AT NIGHT 04/19/2021 07/19/2021 folic acid (FOLVITE) 1 mg Oral TabletIndications:Rheumat oid arthritis involving multiple sites with positive rheumatoid factor (HCC) TAKE 1 TABLET BY MOUTH EVERY DAY 06/18/2021 07/19/2021 documented as of this encounter Care Teams Realty Specialist Relationship Specialty Start Date End Date Julisa Kerr MD 100 [place] [address] PCP - General 02/22/11 Jessica Cortes MD [address] [address] Internal Medicine-Rheumatology 04/26/16 documented as of this encounter
--- OUTSIDE RECORDS SUMMARY | 2024-08-22 21:47 | XMS_ITS | Encounter Summary ---
Author Organization [place] [address] Care Team Providers Care Underwriting Specialist Name Role Phone Julisa Kerr MD Primary Care Provider [phone] Jessica Carter MD Unavailable [phone] Reason for Visit * Reason Comments Follow-up Rheumatoid Arthritis Foot Pain right swelling Joint Pain generalized Encounter Details Date Type Department Care Team (Latest Contact Info) Description 06/18/2021 2:45 PM EDT Office Visit SEP Rheumatology [facility] [address] [phone] Jessica Carter MD [address] [address] Raynaud's phenomenon without gangrene (Primary Dx); Rheumatoid arthritis involving multiple sites with positive rheumatoid factor (HCC); Positive BRET (antinuclear antibody); Sicca syndrome (HCC); Neck pain; Osteopenia of multiple sites; Postmenopausal state; Trochanteric bursitis of right hip; Immunocompromised patient (HCC); Therapeutic drug monitoring Social [...] Sign Reading Time Taken Comments Blood Pressure 126/86 06/18/2021 3:39 PM EDT Pulse 98 06/18/2021 3:39 PM EDT Temperature - - Respiratory Rate 16 06/18/2021 3:39 PM EDT Oxygen Saturation - - Inhaled Oxygen Concentration - - Weight 60.9 kg (134 lb 3.2 oz) 06/18/2021 3:39 P M EDT Height 157.5 cm (5' 2 ) 06/18/2021 3:39 PM EDT Body Mass Index 24.55 06/18/2021 3:39 PM EDT documented in this encounter Functional [...] mL once a week. 4 mL 1 06/21/2021 2 leflunomide (ARAVA) 10 mg Oral TabletIndications :Rheumatoid arthritis involving multiple sites with positive rheumatoid factor (HCC) Take 1 Tablet by mouth daily. 30 Tablet 1 06/21/2021 1 predniSONE (DELTASONE) 10 mg Oral TabletIndications :Rheumatoid arthritis involving multiple sites with positive rheumatoid factor (HCC) Take 3 tablets daily x 5 days then 2 tablets daily x 5 days then 1 tablet daily x 5 days then stop. 30 Tablet 06/18/2021 1 folic acid (FOLVITE) 1 mg Oral TabletIndications :Rheumatoid arthritis involving multiple sites with positive rheumatoid factor (HCC) TAKE 1 TABLET BY MOUTH EVERY DAY 30 Tablet 11 06/18/2021 1 documented in this encounter Progress Notes * Jessica Carter MD - 06/18/2021 2:45 PM EDT Subjective Subjective: Patient ID: Yuliet Newsome is a 50 y.o. female. Chief Complaint Patient presents with ??? Follow-up ??? Rheumatoid Arthritis ??? Foot Pain right swelling ??? Joint Pain generalized HPI The patient comes in for follow up regarding RA. Symptoms started in 2002. Seen by [facility], Dr. Astorga. She was seen in [facility] but have not seen her in 6 [...] she has mild pain- 3/10, mild swelling. Feels worse. Has been having swelling of the right ankle, it does not stay down. The patient reports taking MTX and Arava on the regular basis. Per record review, last MTX script sent 01/05/2021 ( would run out 01/2021), last Arava script sent 03/16/21 ( would run out 03/2021). Joint pain: right hand, right wrist, mild everywhere elseright elbow. Joint swelling: wrists, right knuckles, right ankle. Dry eyes realy bothersome. Uses eye drops. Dry mouth pretty bothersome. Pain on a scale 0-10: 9/10 Type of pain: ache Morning stiffness: up to 60 minutes. Raynaud's: worsened in the cold weather. Current therapy: MTX 15 mg weekly, Arava 10 mg daily, folic acid 1 mg daily, Previous therapy: [...] q 2 weeks ( started 12/2019- stopped 03/2020) Patients past medical, family and social histories [...] BY MOUTH EVERY DAY AT NIGHT 30 Tab 2 ??? busPIRone (BUSPAR) 10 mg Oral Tablet TAKE 1 TAB BY MOUTH 2 TIMES DAILY NEEDED. 60 Tab 2 ??? cyanocobalamin 1,000 mcg/mL Inj Solution INJECT 1ML INTO THE MUSCLE EVERY MONTH 1 mL 3 ??? fluticasone (FLONASE) 50 mcg/actuation Nasl [place], Suspension 1 [place] by Nasal route daily. 1 Bottle 2 ??? leflunomide (ARAVA) 10 mg Oral Tablet TAKE 1 TABLET BY MOUTH EVERY DAY 30 Tab 0 ??? loperamide (IMODIUM) 2 mg Oral Capsule Take 1 Cap by mouth 4 times daily as needed for Diarrhea. 50 Cap 0 ??? methotrexate sodium 25 mg/mL Inj Solution SUBCUTANEOUS (INJECT UNDER THE SKIN) 0.6 ML EVERY 7 DAYS. 4 mL 0 ??? PROAIR HFA 90 mcg/actuation Inhl HFA Aerosol Inhaler TAKE 2 PUFFS BY MOUTH EVERY 6 HOURS NEEDED FOR WHEEZE 8 g 0 ??? sertraline (ZOLOFT) 50 mg Oral Tablet TAKE 1/2 TABLET BY MOUTH DAILY FOR 7 DAYS, THEN 1 TABLET BY MOUTH THEREAFTER. 30 Tab 8 ??? terbinafine HCL (LAMISIL) 250 mg Oral Tablet TAKE 1 TABLET BY MOUTH EVERY DAY FOR 2 WEEKS 14 Tab 0 ??? predniSONE (DELTASONE) 10 mg Oral Tablet Take 3 tablets daily x 5 days then 2 tablets daily x 5days then 1 tablet daily x 5 days then stop. (Patient not taking: Reported on 06/18/2021) 30 Tablet 0 No current facility-administered medications [...] reviewed and are negative. Objective Objective: Vitals: 06/18/21 1539 BP: 126/86 Pulse: 98 Resp: 16 Weight: 134 lb 3.2 oz (60.9 kg) Height: 5' 2 (1.575 m) Body mass index is 24.55 kg/m??. Physical Exam Vitals reviewed. Constitutional: Appearance: She is well-developed. HENT: Head: Normocephalic and atraumatic. Eyes: Conjunctiva/sclera: Conjunctivae normal. Pupils: Pupils are equal, round, and reactive to light. Musculoskeletal: Cervical back: Normal range of motion. Comments: Tenderness to the trapezius muscles, spinal processes of the lumbar spine and paraspinalsin the lumbar area. Crepitus in the shoulders. ROM of the left shoulder significantly limited in internal and external rotation. Tenderness to both wrists, all of the MCP joints, 4th, 5tth right PIP,right ankle. Significant synovitis in the wrists, moderate in the left wrist, 1st- 5th MCP, 5th right PIP, 1st, 2nd, 5th left MCP, right ankle, both MTP areas. ROM of the knees intact. ROM of the right ankle, right elbow decreased. ROM of the wrists decreased. Skin: General: Skin is warm. Findings: No rash. Neurological: Mental Status: She is alert and oriented to person, place, and time. Comments: Muscle strength 5/5 upper and lower extremities. Rapid 3: 22.0 Lab Results Component Value Date WBC 9.4 02/06/2021 HGB 14.1 02/06/2021 HCT 43.4 02/06/2021 MCV 90.0 02/06/2021 PLT 314 02/06/2021 Chemistry Component Value Date/Time NA 139 02/06/2021 1246 NA 138 11/23/2019 0000 K 3.9 02/06/2021 1246 K 4.6 11/23/2019 0000 CL 103 02/06/2021 1246 CL 102 11/23/2019 0000 CO2 27 02/06/2021 1246 CO2 27 11/23/2019 0000 BUN 8 02/06/2021 1246 BUN 11 11/23/2019 0000 CREATININE 0.77 02/06/2021 1246 CREATININE 0.7 11/23/2019 0000 GLU 106 (H) 02/06/2021 1246 GLU 103 (H) 07/01/2017 1532 Component Value Date/Time CALCIUM 9.6 02/06/2021 1246 CALCIUM 9.60 11/23/2019 0000 ALKPHOS 120 02/06/2021 1246 ALKPHOS 112 11/23/2019 0000 AST 15 02/06/2021 1246 AST 20 11/23/2019 0000 ALT 9 02/06/2021 1246 ALT 9 11/23/2019 0000 BILITOT 0.2 11/23/2019 0000 Lab Results Component Value Date CRP 10.85 (H) 02/06/2021 Lab Results Component Value Date SEDRATE 17 02/06/2021 Assessment and Plan: Yuliet was seen today for follow-up, rheumatoid arthritis, osteopenia, raynaud's syndrome and shoulder pain. Diagnoses and all orders for this visit: Rheumatoid arthritis involving multiple sites, with positive rheumatoid factor (HCC) Dx in [address] previously [address]. Astorga in [facility]. Records from [facility] received and reviewed. The patient was seen in 05/11/13 for initial evaluation. Presented with polyarticular joint involvement- large and small joints- shoulders, elbows, knees, wrists, knuckles, toes. 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 Very active arthritis. Tenderness to both wrists, all of the MCP joints, 4th, 5tth right PIP, rightankle. Significant synovitis in the wrists, moderate in the left wrist, 1st- 5th MCP, 5th right PIP, 1st, 2nd, 5th left MCP, right ankle, both MTP areas. Discussed again the importance of taking medications regularly and have labs done regularly. Hepatitis panel checked and negative. Patient should [...] stenosis. PT worsened the symptoms Evaluated by ortho for injections Regular stretches, heat, ice, massage Osteopenia of [...] from 2016 Recent elbow fracture. DXA, ordered 10/2020, not done, advised to schedule Trochanteric bursitis of right hip No tenderness to the right trochanteric bursa today x rays of the hip reveals mild symmetrical joint space narrowing in both hips Trochanteric bursa exercises Possible cortisol injections in the future. Immunocompromised patient (HCC) Due to immunosuppression Prevnar 13 given 12/13/16 Pneumovax 23 given 03/17/17 Therapeutic drug monitoring TB gold negative 11/23/19,currently off biologics, will recheck if we decide to add another agent Labs every 6-8 weeks while on MTX and Arava to monitor for toxicities. Overdue for labs, last lab work 01/2021. Check today and monitor closely while on MTX and Arava since both can cause hepatotoxicity and bonemarrow toxicity. Return in about 3 months (around 09/17/2021). documented in this encounter Miscellaneous Notes * Addendum Note - Jessica Carter MD - 06/18/2021 2:45 PM EDTAddended by: JESSICA CARTER on: 06/21/2021 01:22 PM Modules accepted: Orders documented in this encounter Plan of Treatment Upcoming Encounters Date Type Department Care Team (Late st Contact Info) Description 08/31/2024 8:30 AM EST Appointment [address] [place] [address] 10/25/2024 10:45 AM EST Office Visit EDG RHEUMATOLOGY [facility] [address] [place] [address] Jessica Carter MD [address] [place] [address] 01/25/2025 9:00 AM EDT Appointment [address] [place] [address] 05/09/2025 11:00 AM EDT [address] [place] [address] 05/09/2025 11:15 AM EDT Appointment [address] [place] [address] Susana Garay MD [address] [place] [id number] Scheduled Orders Name Type Priority Associated Diagnoses Orde r Schedule CBC WITH DIFF Lab Routine Rheumatoid arthritis involving multiple sites with positive rheumatoid factor (HCC) Therapeutic drug monitoring Every 6 weeks for 10 Occurrences starting 06/18/2021 until 06/18/2022, 4 completed COMPREHENSIVE METABOLIC PANEL Lab Routine Rheumatoid arthritis involving multiple sites with positive rheumatoid factor (HCC) Therapeutic drug monitoring Every 6 weeks for 10 Occurrences starting 06/18/2021 until 06/18/2022, 4 completed C-REACTIVE PROTEIN Lab Routine Rheumatoid arthritis involving multiple sites with positive rheumatoid factor (HCC) Therapeutic drug monitoring Every 6 weeks for 10 Occurrences starting 06/18/2021 until 06/18/2022, 4 completed SEDIMENTATION RATE AUTOMATED Lab Routine Rheumatoid arthritis involving multiple sites with positive rheumatoid factor (HCC) Therapeutic drug monitoring Every 6 weeks for 10 Occurrences starting 06/18/2021 until 06/18/2022, 4 completed documented as of this encounter Goals Goal Patient Goal Type Associated Problems Recent Progress Patient-Stated? Author Maintain a healthy diet, exercise regularly and maintain an ideal body weight Porsche Diaz RN documented as of this encounter Results * SEDIMENTATION RATE AUTOMATED (06/06/2022 1:20 PM EDT) [facility] Sed Rate 27 0 - 30 mm/hr 06/06/2022 8:13 PM EDT [facility] Blood Venipuncture / Unknown 06/06/2022 1:20 PM EDT 06/06/2022 1:20 PM EDT Jessica Carter MD HEMATOLOGY ORDERABLES Fin al Result Performing Organization Address [facility]/ZIP Co de Phone Number [facility] [address] [place], [place] [id number] * (ABNORMAL) C-REACTIVE PROTEIN (06/06/2022 1:20 PM EDT) [facility] CRP 54.22(H) <=5.00 mg/L 06/06/2022 8:04 PM EDT [facility] [employer] Blood Venipuncture / Unknown 06/06/2022 1:20 PM EDT 06/06/2022 1:20 PM EDT Jessica Carter MD CHEMISTRY ORDERABLES Siobhan l Result [facility] [address] [facility], [place] [address] * (ABNORMAL) COMPREHENSIVE METABOLIC PANEL (06/06/2022 1:20 PM EDT) [facility] Sodium 137 136 - 145 mmol/L 06/06/2022 8:04 PM EDT [facility] [employer] Potassium 3.7 3.5 - 5.0 mmol/L 06/06/2022 8:04 PM EDT [facility] Chloride 101 98 - 107 mmol/L 06/06/2022 8:04 PM EDT [facility] Total CO2 23 22 - 29 mmol/L 06/06/2022 8:04 PM EDT [facility] Anion Gap 13 7 - 16 mmol/L 06/06/2022 8:04 PM EDT [facility] Calcium 9.1 8.6 - 10.4 mg/dL 06/06/2022 8:04 PM EDT [facility] Glucose Lvl 91 74 - 100 mg/dL 06/06/2022 8:04 PM EDT [facility] BUN 11 6 - 20 mg/dL 06/06/2022 8:04 PM EDT [facility] Creatinine 0.70 0.51 - 1.30 mg/dL 06/06/2022 8:04 PM EDT [facility] Albumin 4.3 3.5 - 5.2 gm/dL 06/06/2022 8:04 PM EDT [facility] Total Protein 7.3 6.4 - 8.3 gm/dL 06/06/2022 8:04 PM EDT [facility] Bili Total 0.3 0.1 - 1.3 mg/dL 06/06/2022 8:04 PM EDT [facility] ALT 18 <=41 U/L 06/06/2022 8:04 PM EDT [facility] AST 19 <=40 U/L 06/06/2022 8:04 PM EDT [facility] Alk Phos 124(H) 36 - 123 U/L 06/06/2022 8:04 PM EDT [facility] eGFR (CKD-EPIcr 2020) 104 >=60 mL/min/1.7 3 m2 06/06/2022 8:04 PM EDT [facility] Comment:Estimated GFR was ca lculated using the CKD-EPIcr (2020) equation refit without race. The equation is recommended by the National Kidney Foundation - [place] [employer] of Nephrology Task Force. Blood Venipuncture / Unknown 06/06/2022 1:20 PM EDT 06/06/2022 1:20 PM EDT us Jessica Carter MD CHEMISTRY ORDERABLES Siobhan finnegan Result [facility] [address] [facility], [place] [address] [facility] 1 [place] [address] * (ABNORMAL) CBC WITH DIFF (06/06/2022 1:20 PM EDT) WBC 7.8 3.7 - 10.3 x10(3)/mcL 06/06/2022 8:13 PM EDT [facility] RBC 4.88 3.90 - 5.20 x10(6)/mcL 06/06/2022 [...] % 06/06/2022 8:13 PM EDT [facility] Bracken Percent 14.6 % 06/06/2022 8:13 PM EDT [facility] Eos Percent 4.9 % 06/06/2022 8:13 PM EDT [facility] Baso Percent 1.0 % 06/06/2022 8:13 PM EDT [facility] Neut # 4.1 1.6 - 6.1 x10(3)/[facility] 06/06/2022 8:13 PM EDT [facility] Comment:Neutrophils equals s egs plus bands IMMGRAN# 0.1 0.0 - 0.1 x10(3)/[facility] 06/06/2022 8:13 PM EDT [facility] Comment:Automated count of m etamyelocytes, myelocytes and promyelocytes. An absolute IG <0.1 is reported as 0.0. Lymph # 2.0 1.2 - 3.9 x10(3)/[facility] 06/06/2022 8:13 PM EDT [facility] Bracken # 1.1(H) 0.3 - 0.9 x10(3)/[facility] 06/06/2022 8:13 PM EDT [facility] Eos# 0.4 0.0 - 0.5 x10(3)/[facility] 06/06/2022 8:13 PM EDT [facility] Baso # 0.1 0.0 - 0.1 x10(3)/[facility] 06/06/2022 8:13 PM EDT [facility] Blood Venipuncture / Unknown 06/06/2022 1:20 PM EDT 06/06/2022 1:20 PM EDT us Jessica Carter MD HEMATOLOGY ORDERABLES Fin al Result [facility] [address] [facility] , [address] [place] [id number] * (ABNORMAL) SEDIMENTATION RATE AUTOMATED (01/16/2022 1:09 PM EDT) Pathologist [facility] Sed Rate 56(H) 0 - 30 mm/hr 01/16/2022 8:28 PM EDT [facility] Blood Venipuncture / Unknown 01/16/2022 1:09 PM EDT 01/16/2022 1:09 PM EDT Jessica Carter MD HEMATOLOGY ORDERABLES Fin al Result Performing Organization Address [facility] Co de Phone Number [facility] [address] [place] [address] * (ABNORMAL) C-REACTIVE PROTEIN (01/16/2022 1:09 PM EDT) [facility] CRP 156.90(H) <=5.00 mg/L 01/16/2022 8:00 PM EDT [facility] Blood Venipuncture / Unknown 01/16/2022 1:09 PM EDT 01/16/2022 1:09 PM EDT Jessica Carter MD CHEMISTRY ORDERABLES Siobhan l Result Performing Organization Address [facility] de Phone Number [facility] [address] [facility], [place] [address] * COMPREHENSIVE METABOLIC PANEL (01/16/2022 1:09 PM EDT) [facility] Sodium 140 136 - 145 mmol/L 01/16/2022 [...] 01/16/2022 8:00 PM EDT [facility] Glucose Lvl 85 74 - 100 mg/dL 01/16/2022 8:00 PM EDT [facility] BUN 11 6 - 20 mg/dL 01/16/2022 8:00 PM EDT [facility] Creatinine 0.64 0.51 - 1.30 mg/dL 01/16/2022 8:00 PM EDT [facility] Albumin 3.8 3.5 - 5.2 gm/dL 01/16/2022 8:00 PM EDT [facility] Total Protein 7.0 6.4 - 8.3 gm/dL 01/16/2022 8:00 PM EDT [facility] Bili Total 0.3 0.1 - 1.3 mg/dL 01/16/2022 8:00 PM EDT [facility] ALT 11 <=41 U/L 01/16/2022 8:00 PM EDT [facility] AST 15 <=40 U/L 01/16/2022 8:00 PM EDT [facility] Alk Phos 105 36 - 123 U/L 01/16/2022 8:00 PM EDT [facility] eGFR (CKD-EPIcr 2020) 106 >=60 mL/min/1.7 3 m2 01/16/2022 8:00 PM EDT [facility] Comment:Estimated GFR was ca lculated using the CKD-EPIcr (2020) equation refit without race. The equation is recommended by the National Kidney Foundation - [place] Society of Nephrology Task Force. Blood Venipuncture / Unknown 01/16/2022 1:09 PM EDT 01/16/2022 1:09 PM EDT us Jessica Carter MD CHEMISTRY ORDERABLES Siobhan finnegan Result [facility] [address] [facility], [place] [address] [facility] 1 [place] [address] * (ABNORMAL) CBC WITH DIFF (01/16/2022 1:09 PM EDT) [facility] WBC 9.0 3.7 - 10.3 x10(3)/mcL 01/16/2022 7:43 PM EDT [facility] RBC 4.48 3.90 - 5.20 x10(6)/mcL 01/16/2022 7:43 PM EDT [facility] Hgb 11.8 11.2 - 15.7 g/dL 01/16/2022 7:43 PM EDT [facility] Hct 38.7 34.0 - 45.0 % 01/16/2022 7:43 PM EDT [facility] MCV 86.4 80.0 - 100.0 fL 01/16/2022 7:43 PM EDT [facility] MCH 26.3 26.0 - 34.0 pg 01/16/2022 7:43 PM EDT [facility] MCHC 30.5(L) 30.7 - 35.5 g/dL 01/16/2022 7:43 PM EDT [facility] RDW 14.1 <=14.9 % 01/16/2022 7:43 PM EDT [facility] Platelet 432(H) 155 - 369 x10(3)/mcL 01/16/2022 7:43 PM EDT [facility] MPV 11.1 8.8 - 12.5 fL 01/16/2022 7:43 PM EDT [facility] Neut Percent 63.6 % 01/16/2022 7:43 PM EDT [facility] Comment:Neutrophils equals s egs plus bands Imm Gran% 0.7 % 01/16/2022 7:43 PM EDT [facility] Comment:Automated count of m etamyelocytes, myelocytes and promyelocytes. Lymph Percent 15.2 % 01/16/2022 7:43 PM EDT [facility] Bracken Percent 15.9 % 01/16/2022 7:43 PM EDT [facility] Eos Percent 3.7 % 01/16/2022 7:43 PM EDT [facility] Baso Percent 0.9 % 01/16/2022 7:43 PM EDT [facility] Neut # 5.7 1.6 - 6.1 x10(3)/[facility] 01/16/2022 7:43 PM EDT [facility] Comment:Neutrophils equals s egs plus bands IMMGRAN# 0.1 0.0 - 0.1 x10(3)/[facility] 01/16/2022 7:43 PM EDT [facility] Comment:Automated count of m etamyelocytes, myelocytes and promyelocytes. An absolute IG <0.1 is reported as 0.0. Lymph # 1.4 1.2 - 3.9 x10(3)/[facility] 01/16/2022 7:43 PM EDT [facility] Bracken # 1.4(H) 0.3 - 0.9 x10(3)/[facility] 01/16/2022 7:43 PM EDT [facility] Eos# 0.3 0.0 - 0.5 x10(3)/[facility] 01/16/2022 7:43 PM EDT [facility] Baso # 0.1 0.0 - 0.1 x10(3)/[facility] 01/16/2022 7:43 PM EDT [facility] Blood Venipuncture / Unknown 01/16/2022 1:09 PM EDT 01/16/2022 1:09 PM EDT us Jessica Carter MD HEMATOLOGY ORDERABLES Fin al Result Performing Organization Address City/[facility]/ZIP Co de Phone Number [facility] [address] [facility] , [place] [address] * SEDIMENTATION RATE AUTOMATED (07/30/2021 1:32 PM EDT) Sed Rate 8 0 - 30 mm/hr 07/30/2021 8:10 PM EDT [facility] Blood Venipuncture / Unknown 07/30/2021 1:32 PM EDT 07/30/2021 1:32 PM EDT us Jessica Carter MD HEMATOLOGY ORDERABLES Fin al Result [facility] 1 [place] [address] * (ABNORMAL) C-REACTIVE PROTEIN (07/30/2021 1:32 PM EDT) Pathologist [facility] CRP 11.17(H) <=5.00 mg/L 07/30/2021 8:59 PM EDT [facility] Blood Venipuncture / Unknown 07/30/2021 1:32 PM EDT 07/30/2021 1:32 PM EDT us Jessica Carter MD CHEMISTRY ORDERABLES Siobhan finnegan Result [facility] [address] [facility], [place] [address] * (ABNORMAL) COMPREHENSIVE METABOLIC PANEL (07/30/2021 1:32 PM EDT) Pathologist [facility] Sodium 138 136 - 145 mmol/L 07/30/2021 [...] 8:35 PM EDT [facility] Albumin 3.9 3.5 - 5.2 gm/dL 07/30/2021 8:35 PM EDT [facility] Total Protein 6.6 6.4 - 8.3 gm/dL 07/30/2021 8:35 PM EDT [facility] Bili Total 0.2 0.1 - 1.3 mg/dL 07/30/2021 8:35 PM EDT [facility] ALT 9 <=41 U/L 07/30/2021 8:35 PM EDT [facility] AST 12 <=40 U/L 07/30/2021 8:35 PM EDT [facility] Alk Phos 94 36 - 123 U/L 07/30/2021 8:35 PM EDT [facility] GFR Afr Am 90 >=60 mL/min/1.7 3 m2 07/30/2021 8:35 PM EDT [facility] GFR Non Afr Am 78 >=60 mL/min/1.7 3 m2 07/30/2021 8:35 PM EDT [facility] Comment: This estimated GFR was [...] EDT 07/30/2021 1:32 PM EDT us Jessica Carter MD CHEMISTRY ORDERABLES Siobhan sivan Result [facility] [address] [facility], [place] [address] [facility] [facility] [address] [place] [address] * (ABNORMAL) CBC WITH DIFF (07/30/2021 1:32 PM EDT) [facility] Signature WBC 11.2(H) 3.7 - 10.3 x10(3)/mcL 07/30/2021 7:52 PM EDT [facility] RBC 5.09 3.90 - 5.20 x10(6)/mcL 07/30/2021 7:52 PM EDT [facility] Hgb 13.5 11.2 - 15.7 g/dL 07/30/2021 7:52 PM EDT [facility] Hct 45.1(H) 34.0 - 45.0 % 07/30/2021 7:52 PM EDT [facility] MCV 88.6 80.0 - 100.0 fL 07/30/2021 7:52 PM EDT [facility] MCH 26.5 26.0 - 34.0 pg 07/30/2021 7:52 PM EDT [facility] MCHC 29.9(L) 30.7 - 35.5 g/dL 07/30/2021 7:52 PM EDT [facility] RDW 15.6(H) <=14.9 % 07/30/2021 7:52 PM EDT [facility] Platelet 382(H) 155 - 369 x10(3)/mcL 07/30/2021 7:52 PM EDT [facility] MPV 10.7 8.8 - 12.5 fL 07/30/2021 7:52 PM EDT [facility] Neut Percent 56.2 % 07/30/2021 7:52 PM EDT [facility] Comment:Neutrophils equals s egs plus bands Imm Gran% 1.3 % 07/30/2021 7:52 PM EDT [facility] Comment:Automated count of m etamyelocytes, myelocytes and promyelocytes. IG >1% represents a left shift and provides an early indication of an infection or inflammatory process. Lymph Percent 31.3 % 07/30/2021 7:52 PM EDT [facility] Bracken Percent 8.8 % 07/30/2021 7:52 PM EDT [facility] Eos Percent 1.8 % 07/30/2021 7:52 PM EDT [facility] Baso Percent 0.6 % 07/30/2021 7:52 PM EDT [facility] Neut # 6.3(H) 1.6 - 6.1 x10(3)/[facility] 07/30/2021 7:52 PM EDT [facility] Comment:Neutrophils equals s egs plus bands IMMGRAN# 0.2(H) 0.0 - 0.1 x10(3)/[facility] 07/30/2021 7:52 PM EDT [facility] Comment:Automated count of m etamyelocytes, myelocytes and promyelocytes. An absolute IG <0.1 is reported as 0.0. Lymph # 3.5 1.2 - 3.9 x10(3)/[facility] 07/30/2021 7:52 PM EDT [facility] Bracken # 1.0(H) 0.3 - 0.9 x10(3)/[facility] 07/30/2021 7:52 PM EDT [facility] Eos# 0.2 0.0 - 0.5 x10(3)/[facility] 07/30/2021 7:52 PM EDT [facility] Baso # 0.1 0.0 - 0.1 x10(3)/[facility] 07/30/2021 7:52 PM EDT [facility] Blood Venipuncture / Unknown 07/30/2021 1:32 PM EDT 07/30/2021 1:32 PM EDT us Jessica Carter MD HEMATOLOGY ORDERABLES Fin al Result [facility] [address] [facility] , [place] [address] * (ABNORMAL) SEDIMENTATION RATE AUTOMATED (06/20/2021 10:37 AM EDT) [facility] Sed Rate 33(H) 0 - 30 mm/hr 06/20/2021 3:36 PM EDT [facility] Blood Venipuncture / Unknown 06/20/2021 10:37 AM EDT 06/20/2021 10:37 AM EDT us Jessica Carter MD HEMATOLOGY ORDERABLES Fin al Result [facility] [address] [place] [address] * (ABNORMAL) C-REACTIVE PROTEIN (06/20/2021 10:37 AM EDT) CRP 55.93(H) <=5.00 mg/L 06/20/2021 5:09 PM EDT [facility] Blood Venipuncture / Unknown 06/20/2021 10:37 AM EDT 06/20/2021 10:37 AM EDT Jessica Carter MD CHEMISTRY ORDERABLES Siobhan finnegan Result Performing Organization Address [facility]/ZIP Co de Phone Number [facility] [address] [facility] [address], [place] [address] * (ABNORMAL) COMPREHENSIVE METABOLIC PANEL (06/20/2021 10:37 AM EDT) Sodium 139 136 - 145 mmol/L 06/20/2021 5:09 PM EDT [facility] Potassium 3.8 3.5 - 5.0 mmol/L 06/20/2021 5:09 PM EDT [facility] Chloride 101 98 - 107 mmol/L 06/20/2021 5:09 PM EDT [facility] Total CO2 26 22 - 29 mmol/L 06/20/2021 5:09 PM EDT [facility] Anion Gap 12 7 - 16 mmol/L 06/20/2021 5:09 PM EDT [facility] Calcium 9.6 8.6 - 10.4 mg/dL 06/20/2021 5:09 PM EDT [facility] Glucose Lvl 85 74 - 100 mg/dL 06/20/2021 5:09 PM EDT [facility] BUN 5(L) 6 - 20 mg/dL 06/20/2021 5:09 PM EDT [facility] Creatinine 0.79 0.51 - 1.30 mg/dL 06/20/2021 5:09 PM EDT [facility] Albumin 4.1 3.5 - 5.2 gm/dL 06/20/2021 5:09 PM EDT [facility] Total Protein 7.3 6.4 - 8.3 gm/dL 06/20/2021 5:09 PM EDT [facility] Bili Total 0.4 0.1 - 1.3 mg/dL 06/20/2021 5:09 PM EDT [facility] ALT 11 <=41 U/L 06/20/2021 5:09 PM EDT [facility] AST 18 <=40 U/L 06/20/2021 5:09 PM EDT [facility] Alk Phos 135(H) 36 - 123 U/L 06/20/2021 5:09 PM EDT [facility] GFR Afr Am 101 >=60 mL/min/1.7 3 m2 06/20/2021 5:09 PM EDT [facility] GFR Non Afr Am 88 >=60 mL/min/1.7 3 m2 06/20/2021 5:09 PM EDT [facility] Comment: This estimated GFR was [...] or muscle mass. Blood Venipuncture / Unknown 06/20/2021 10:37 AM EDT 06/20/2021 10:37 AM EDT us Jessica Carter MD CHEMISTRY ORDERABLES Siobhan sivan Result [facility] [address] [facility] , [place] [address] [facility] [address] [place] [address] * (ABNORMAL) CBC WITH DIFF (06/20/2021 10:37 AM EDT) [facility] WBC 6.0 3.7 - 10.3 x10(3)/mcL 06/20/2021 3:11 PM EDT [facility] RBC 4.84 3.90 - 5.20 x10(6)/mcL 06/20/2021 3:11 PM EDT [facility] Hgb 12.9 11.2 - 15.7 g/dL 06/20/2021 3:11 PM EDT [facility] Hct 42.3 34.0 - 45.0 % 06/20/2021 3:11 PM EDT [facility] MCV 87.4 80.0 - 100.0 fL 06/20/2021 3:11 PM EDT [facility] MCH 26.7 26.0 - 34.0 pg 06/20/2021 3:11 PM EDT [facility] MCHC 30.5(L) 30.7 - 35.5 g/dL 06/20/2021 3:11 PM EDT [facility] RDW 14.0 <=14.9 % 06/20/2021 3:11 PM EDT [facility] Platelet 350 155 - 369 x10(3)/mcL 06/20/2021 3:11 PM EDT [facility] MPV 11.0 8.8 - 12.5 fL 06/20/2021 3:11 PM EDT [facility] Neut Percent 54.8 % 06/20/2021 3:11 PM EDT [facility] Comment:Neutrophils equals s egs plus bands Imm Gran% 0.5 % 06/20/2021 3:11 PM EDT [facility] Comment:Automated count of m etamyelocytes, myelocytes and promyelocytes. Lymph Percent 24.1 % 06/20/2021 3:11 PM EDT [facility] Bracken Percent 12.8 % 06/20/2021 3:11 PM EDT [facility] Eos Percent 7.0 % 06/20/2021 3:11 PM EDT [facility] Baso Percent 0.8 % 06/20/2021 3:11 PM EDT [facility] Neut # 3.3 1.6 - 6.1 x10(3)/mcL 06/20/2021 3:11 PM EDT [facility] Comment:Neutrophils equals s egs plus bands IMMGRAN# 0.0 0.0 - 0.1 x10(3)/[facility] 06/20/2021 3:11 PM EDT [facility] [employer] [facility] Comment:Automated count of m etamyelocytes, myelocytes and promyelocytes. An absolute IG <0.1 is reported as 0.0. Lymph # 1.5 1.2 - 3.9 x10(3)/[facility] 06/20/2021 3:11 PM EDT [facility] Bracken # 0.8 0.3 - 0.9 x10(3)/[facility] 06/20/2021 3:11 PM EDT [facility] Eos# 0.4 0.0 - 0.5 x10(3)/[facility] 06/20/2021 3:11 PM EDT [facility] Baso # 0.1 0.0 - 0.1 x10(3)/[facility] 06/20/2021 3:11 PM EDT [facility] [employer] [facility] Blood Venipuncture / Unknown 06/20/2021 10:37 AM EDT 06/20/2021 10:37 AM EDT Jessica Carter MD HEMATOLOGY ORDERABLES Fin al Result [facility] [employer] [facility] [address] [facility] , [place] [address] documented in this encounter Visit Diagnoses Diagnosis Raynaud's phenomenon without gangrene- Primary Rheumatoid arthritis involving multiple sites with positive rheumatoid factor (HCC) Positive BRET (antinuclear antibody) Other and unspecified nonspecific immunological findings Sicca syndrome (HCC) Sicca syndrome Neck pain Cervicalgia Osteopenia of multiple sites Postmenopausal state Asymptomatic postmenopausal status (age-related) (natural) Trochanteric bursitis of right hip Enthesopathy of hip region Immunocompromised patient (HCC) Unspecified immunity deficiency Therapeutic drug monitoring Encounter for therapeutic drug monitoring documented in this encounter Discontinued Medications Medication Sig Discontinue Reason Start Date End Da te folic acid (FOLVITE) 1 mg Oral Tablet TAKE 1 TABLET BY MOUTH EVERY DAY Reorder 04/19/2021 06/18/2021 methotrexate sodium 25 mg/mL Inj SolutionIndications:R heumatoid arthritis involving multiple sites with positive rheumatoid factor (HCC) SUBCUTANEOUS (INJECT UNDER THE SKIN) 0.6 ML EVERY 7 DAYS. Reorder 01/05/2021 06/21/2021 leflunomide (ARAVA) 10 mg Oral TabletIndications:Rhe umatoid arthritis involving multiple sites with positive rheumatoid factor (HCC) TAKE 1 TABLET BY MOUTH EVERY DAY Reorder 03/16/2021 06/21/2021 documented as of this encounter Additional Health Concerns Infection Onset Date Last Indicated Resolved Time COVID-19 06/01/2021 06/01/2021 06/21/2021 10:1 3 PM EDT documented as of this encounter Care Teams Underwriting Specialist Relationship Specialty Start Date End Date Julisa Kerr MD [address] [place] [address] PCP - General 02/22/11 Jessica Carter MD [address] [address] Internal Medicine-Rheumatology 04/26/16 documented as of this encounter
--- OUTSIDE RECORDS SUMMARY | 2024-08-22 21:47 | XMS_ITS | Encounter Summary ---
Author Organization [facility] [address] Care Team Providers Care Business And Services Instructor Name Role Phone Julisa Kerr MD Primary Care Provider [phone] Jessica Cortes MD Unavailable [phone] Encounter Details Date Type Department Care Team (Latest Contact Info) Description 06/20/2021 Travel Social History Tobacco Use Types Packs/Day [...] Info) Description 08/31/2024 8:30 AM EST [address]ment [address] [place] [address] 10/25/2024 10:45 AM EST Office Visit [facility] [address] [place] [address] Jessica Cortes MD [address] [facility] Building [address] [place] [address] 01/25/2025 9:00 AM EDT [address]ointment [address] [address] 05/09/2025 11:00 AM EDT [address]ment [address] [place] [address] 05/09/2025 11:15 AM EDT [address]ointment [address] [place] [address] Susana Garay MD [address] [place] [address] [address] [place] [id number] documented as of this encounter Goals Goal [...] as of this encounter Care Teams Business And Services Instructor Relationship Specialty Start Date End Date Julisa Kerr MD [address] [place] [address] PCP - General 02/22/11 Jessica Cortes MD [address] [address] Internal Medicine-Rheumatology 04/26/16 documented as of this encounter
--- OUTSIDE RECORDS SUMMARY | 2024-08-22 21:47 | XMS_ITS | Encounter Summary ---
Author Organization [place] [address] Care Team Providers Care Surgery Scheduling Coordinator Name Role Phone Julisa Kerr MD Primary Care Provider [phone] Jessica Cortes MD Unavailable [phone] Encounter Details Date Type Department Care Team (Latest Contact Info) Description 03/01/2021 11:33 AM EDT - 03/01/2021 11:59 PM EDT Hospital Encounter GRT XRAY [address] [place] [address] Chronic pain of left ankle Discharge Disposition: Home or Self Care Social [...] this encounter Medications at Time of Discharge amitriptyline (ELAVIL) 25 mg Oral TabletIndications: Insomnia, unspecified type TAKE 1 TABLET BY MOUTH EVERY DAY AT NIGHT 30 Tab 2 01/23/2021 04/19/2021 amoxicillin (AMOXIL) 875 mg Oral TabletIndications: Acute bacterial sinusitis Take 1 Tab by mouth 2 times daily for 10 days. 20 Tab 03/01/2021 03/11/2021 busPIRone (BUSPAR) 10 mg Oral TabletIndications: Anxiety TAKE 1 TAB BY MOUTH 2 TIMES DAILY NEEDED. 60 Tab 2 01/23/2021 04/19/2021 cyanocobalamin 1,000 mcg/mL Inj Solution INJECT 1ML INTO THE MUSCLE EVERY MONTH 1 mL 3 02/15/2021 06/18/2021 folic acid (FOLVITE) 1 mg Oral Tablet TAKE 1 TABLET BY MOUTH EVERY DAY 30 Tab 2 01/23/2021 04/19/2021 leflunomide (ARAVA) 10 mg Oral TabletIndications: Rheumatoid arthritis involving multiple sites with positive rheumatoid factor (HCC) TAKE 1 TABLET BY MOUTH EVERY DAY 30 Tab 02/12/2021 03/16/2021 documented as of this encounter Discharge Disposition Disposition Code Departure Means Destination Home or Self Care documented in this encounter Plan of Treatment Upcoming Encounters Date Type Department Care Team (Late st Contact Info) Description 08/31/2024 8:30 AM EST Appointment [place] [address] [place] [address] 10/25/2024 10:45 AM EST Office Visit [facility] [address] [place] [address] Jessica Cortes MD [address] [place] [address] 01/25/2025 9:00 AM EDT Appointment [address] [place] [address] 05/09/2025 11:00 AM EDT [address]ointment [address] [place] [address] 05/09/2025 11:15 AM EDT Appointment [address] [place] [address] Susana Garay MD [address] [place] [address] documented as of this encounter Goals Goal Patient Goal Type Associated Problems Recent Progress Patient-Stated? 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 RN documented as of this encounter Procedures Procedure Name Priority Date/Time Associated Diagnosis Comments XR ANKLE LEFT AP AND LATERAL Routine 03/01/2021 11:46 AM EDT Chronic pain of left ankle documented in this encounter Results * XR [...] in left ankle and joints of left [id number]-[id number]-CM G89.29-Other chronic tuxt-ZGW-16-CM COMPARISON: ??None. PROCEDURE COMMENTS: XR ANKLE LEFT AP AND LATERAL FINDINGS: The ankle mortise is congruent and there is no fracture. There is no joint effusion. Joint spaces overall well-maintained. No periostitis. Procedure Note Armando Salinas MD - 03/01/2021 XR ANKLE LEFT AP AND LATERAL, 03/01/2021 11:46 AM CLINICAL HISTORY: M25.572-Pain in left ankle and joints of [id number]-LCQ-66-CM G89.29-Other chronic kvyd-QNC-50-CM COMPARISON: None. PROCEDURE COMMENTS: XR ANKLE LEFT [...] please contactthe office of the ordering clinician. [facility] Rebollar DO IM DIAGNOSTIC IMAGING ORDERABL ES Final Result documented in this encounter Visit Diagnoses Diagnosis Chronic pain of left ankle documented in this encounter Care Teams Surgery Scheduling Coordinator Relationship Specialty Start Date End Date Julisa Kerr MD [address] [place] [address] PCP - General 02/22/11 Jessica Cortes MD 6[address] [place] [address] Internal Medicine-Rheumatology 04/26/16 documented as of this encounter
--- OUTSIDE RECORDS SUMMARY | 2024-08-22 21:47 | XMS_ITS | Encounter Summary ---
Author Organization [facility] [place] [address] Care Team Providers Care Cut Off Sawyer Log Name Role Phone Julisa Kerr MD Primary Care Provider [phone] Jessica Cortes MD Unavailable [phone] Encounter Details Date Type Department Care Team (Latest Contact Info) Description 06/18/2021 Travel Social History Tobacco Use Types Packs/Day [...] have Coronavirus / COVID-19? No / Unsure 06/18/2021 3:23 PM EDT documented as of this encounter [...] Info) Description 08/31/2024 8:30 AM EST [address]ointment [address] [place] [address] 10/25/2024 10:45 AM EST Office Visit [facility] [address] [place] [address] Jessica Cortes MD [address] [facility] [address] [place] [address] 01/25/2025 9:00 AM EDT [address]ointment [address] [place] [address] 05/09/2025 11:00 AM EDT [address]ointment [address] [place] [address] 05/09/2025 11:15 AM EDT [address]ointment [address] [place] [address] Susana Garay MD [address] [place] [address] [address] [place] [id number] documented as of this encounter Goals Goal [...] documented as of this encounter Care Teams Cut Off Sawyer Log Relationship Specialty Start Date End Date Julisa Kerr MD [address] [place] [address] PCP - General 02/22/11 Jessica Cortes MD [address] [address] Internal Medicine-Rheumatology 04/26/16 documented as of this encounter
--- OUTSIDE RECORDS SUMMARY | 2024-08-22 21:47 | XMS_ITS | Encounter Summary ---
Author Organization [place] [address] Care Team Providers Care Body Straightener Name Role Phone Julisa Kerr MD Primary Care Provider [phone] Jessica Cortes MD Unavailable [phone] Reason for Visit * Reason Comments Medication Refill Encounter Details Date Type Department Care Team (Late st Contact Info) Description 04/19/2021 Refill [facility] [address] [place] [address] Julisa Kerr MD [address] [place] [address] Medication Refill Social History Tobacco Use Types [...] Refills Last Filled Start Date End Date amitriptyline (ELAVIL) 25 mg Oral TabletIndications: Insomnia, unspecified type TAKE 1 TABLET BY MOUTH EVERY DAY AT NIGHT 30 Tab 2 04/19/2021 07/19/2021 busPIRone (BUSPAR) 10 mg Oral TabletIndications: Anxiety TAKE 1 TAB BY MOUTH 2 TIMES DAILY NEEDED. 60 Tab 2 04/19/2021 07/19/2021 folic acid (FOLVITE) 1 mg Oral Tablet TAKE 1 TABLET BY MOUTH EVERY DAY 30 Tab 2 04/19/2021 06/18/2021 documented in this encounter Plan of Treatment Upcoming Encounters Date Type Department Care Team (Late st Contact Info) Description 08/31/2024 8:30 AM EST Appointment [facility] [address] [place] [address] 10/25/2024 10:45 AM EST Office Visit [facility] [address] [facility] [address] [place] [address] Jessica Cortes MD [address] [facility] Building 19 [place] [address] 01/25/2025 9:00 AM EDT Appointment [place] [address] [place] [address] 05/09/2025 11:00 AM EDT Appointment [address] [place] [address] 05/09/2025 11:15 AM EDT Appointment [address] [place] [address] Susana Garay MD [address] [place] [address] [address] [place], [place] [id number] documented as of this encounter Goals Goal Patient Goal Type Associated Problems Recent Progress Patient-Stated? 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 RN documented as of this encounter Visit Diagnoses Diagnosis Anxiety Anxiety state, unspecified Insomnia, unspecified type documented in this encounter Discontinued Medications Medication Sig Discontinue Reason Start Date End Da te folic acid (FOLVITE) 1 mg Oral Tablet TAKE 1 TABLET BY MOUTH EVERY DAY 01/23/2021 04/19/2021 busPIRone (BUSPAR) 10 mg Oral TabletIndications:Anxiety TAKE 1 TAB BY MOUTH 2 TIMES DAILY NEEDED. 01/23/2021 04/19/2021 amitriptyline (ELAVIL) 25 mg Oral TabletIndications:Insomni a, unspecified type TAKE 1 TABLET BY MOUTH EVERY DAY AT NIGHT 01/23/2021 04/19/2021 documented as of this encounter Care Teams Body Straightener Relationship Specialty Start Date End Date Julisa Kerr MD [address] [place] [address] PCP - General 02/22/11 Jessica Cortes MD 651 [facility] 19 [place] [address] Internal Medicine-Rheumatology 04/26/16 documented as of this encounter
--- OUTSIDE RECORDS SUMMARY | 2024-08-22 21:47 | XMS_ITS | Encounter Summary ---
Author Organization [place] [address] Care Team Providers Care Roof Promenade Tile Setter Name Role Phone Julisa Kerr MD Primary Care Provider [phone] Jessica Cortes MD Unavailable [phone] Reason for Visit * Reason Comments Medication Refill Encounter Details Date Type Department Care Team (Late st Contact Info) Description 02/12/2021 Refill [facility] 651 [facility] Building [address] [place] [address] Jessica Cortes MD [address] [address] Medication Refill Social History Tobacco [...] EVERY DAY 30 Tab 02/12/2021 03/16/2021 documented in this encounter Miscellaneous Notes * Telephone Encounter - Miya Haider MA - 02/12/2021 4:16 PM EDT Wendy; 11/22/20 Labs; 02/06/21 Nov; 02/19/21 Per chart review Arava last filled on 12/18/20 leflunomide (ARAVA) 10 mg Oral Tablet; Take 1 Tab by mouth daily documented in this encounter Plan of Treatment Upcoming Encounters Date Type Department Care Team (Late st Contact Info) Description 08/31/2024 8:30 AM EST Appointment [place] [address] [place] [address] 10/25/2024 10:45 AM EST Office Visit [facility] [address] [place] [address] Jessica Cortes MD [address] [facility] [facility] [address] [place] [address] 01/25/2025 9:00 AM EDT Appointment [place] [address] [place] [address] 05/09/2025 11:00 AM EDT [address]ointment [address] [place] [address] 05/09/2025 11:15 AM EDT [address]ointment [address] [place] [place] [address] Susana Garay MD [address] [place], [place] [id number] documented as of this encounter Goals Goal [...] TAKE 1 TABLET BY MOUTH EVERY DAY 12/18/2020 02/12/2021 documented as of this encounter Care Teams Roof Promenade Tile Setter Relationship Specialty Start Date End Date Julisa Kerr MD [address] [place] [address] PCP - General 02/22/11 Jessica Cortes MD [address]51 [facility] [address] [place] [address] Internal Medicine-Rheumatology 04/26/16 documented as of this encounter
--- OUTSIDE RECORDS SUMMARY | 2024-08-22 21:47 | XMS_ITS | Encounter Summary ---
Author Organization [place] [address] Care Team Providers Care Commodity Lead Name Role Phone Julisa Kerr MD Primary Care Provider [phone] Jessica Cortes MD Unavailable [phone] Reason for Visit * Reason Comments Medication Refill Encounter Details Date Type Department Care Team (Late st Contact Info) Description 04/13/2021 Refill SEP Rheumatology [facility] 651 [facility] Building [address] [place] [phone] Jessica Cortes MD [address] [address] Medication Refill Social History Tobacco [...] Telephone Encounter - Mel Michaels RMA - 04/13/2021 7:55 AM EDT Last OV 11/22/20 Last BW 02/06/21 No future appt scheduled Chart reviewed. Patient is overdue for labs and overdue for an office visit Return in about 3 months (around 02/19/2021). documented in this encounter Plan of Treatment Upcoming Encounters Date Type Department Care Team (Late st Contact Info) Description 08/31/2024 8:30 AM EST Appointment [facility] [address] [place] [address] 10/25/2024 10:45 AM EST Office Visit [facility] RHEUMATOLOG[facility] [address] [place] [address] Jessica Cortes MD 651 [facility] Building 19 [place] [address] 01/25/2025 9:00 AM EDT Appointment [place] [address] [place] [address] 05/09/2025 11:00 AM EDT Appointment [place] [address] [place] [address] 05/09/2025 11:15 AM EDT Appointment [facility] [place] [address] Susana Garay MD [address] [place] [address] [place] [address] documented as of this encounter Goals Goal Patient Goal Type Associated Problems Recent Progress Patient-Stated? Author Maintain a healthy diet, exercise regularly and maintain an ideal body weight General Porsche Ashley, RN documented as of this encounter Visit Diagnoses Diagnosis Rheumatoid arthritis involving multiple sites with positive rheumatoid factor (HCC) documented in this encounter Care Teams Commodity Lead Relationship Specialty Start Date End Date Julisa Kerr MD 100 [place] [address] PCP - General 02/22/11 Jessica Cortes MD [address] [id number] Internal Medicine-Rheumatology 04/26/16 documented as of this encounter
--- OUTSIDE RECORDS SUMMARY | 2024-08-22 21:47 | XMS_ITS | Encounter Summary ---
Author Organization [place] [address] Care Team Providers Care Flavor Room Worker Name Role Phone Julisa Kerr MD Primary Care Provider [phone] Jessica Cortes MD Unavailable [phone] Reason for Visit * Reason Onset Date Comments Orders 05/31/2021 covid Encounter Details Date Type Department Care Team (Late st Contact Info) Description 05/31/2021 Telephone [facility] 100 [place] [address] Julisa Kerr MD 100 [place] [address] Orders (covid ) Social History Tobacco Use Types Packs/Day [...] No 11/22/2020 3:41 PM Ablin Blake MA documented as of this encounter Mental Status * Because of a physical, mental or emotional condition, does this person have serious difficulty concentrating, remembering or making decisions? Answer Entry Date Author No 11/22/2020 3:41 PM Albin Blake MA documented in this encounter Miscellaneous Notes * Telephone Encounter - Julisa Kerr MD - 06/01/2021 12:46 PM EDT Spoke with patient she is past the 10 days for the covid antibody even though she just got the testtoday. She declines further investigation into them. * Telephone Encounter - Miri Wilde - 06/01/2021 11:35 AM EDT Patient called back about lab results. Patient advised whomever called did advise her she was positive but that she needed to call back for directions. Patient advised to please call her on her cell phone at [phone] * Telephone Encounter - Gina Carranza RMA - 05/31/2021 5:38 PM EDT appt made * Telephone Encounter - Julisa Kerr MD - 05/31/2021 5:23 PM EDT Ok if we have swabs.. rapid * Telephone Encounter - Magali Garcia - 05/31/2021 3:38 PM EDT Order Request Who is requesting the Order(s): Patient What Orders are being requested: Lab covid ?? Reason Orders are Needed (Diagnosis): cough, congestion, weakness x 2 weeks- no exposure that she knows of, seen via vv 05/24 ?? Is patient waiting at lab/hospital/facility: No ?? If non-[facility] facility, where should the order be faxed (include fax number): n/a ?? Upcoming PCP appointment date: none ?? Additional Information: documented in this encounter Plan of Treatment Upcoming Encounters Date Type Department Care Team (Late st Contact Info) Description 08/31/2024 8:30 AM EST Appointment [place] [address] [place] [address] 10/25/2024 10:45 AM EST Office Visit [facility] R[facility]AT[facility] [address] [facility] [address] [place] [address] Jessica Cortes MD [address] [place] [address] Building [address] [place] [address] 01/25/2025 9:00 AM EDT Appointment [place] [address] [place] [address] 05/09/2025 11:00 AM EDT Appointment [facility] [address] [place], [place] [id number] 05/09/2025 11:15 AM EDT Appointment [facility] Pallavi [place] [address] Susana Garay MD [address] [place] [address] [address] [place], [place] [id number] documented as of this encounter Goals Goal [...] documented as of this encounter Care Teams Flavor Room Worker Relationship Specialty Start Date End Date Julisa Kerr MD [address] [place] [address] PCP - General 02/22/11 Jessica Cortes MD [address] [place] [address] Internal Medicine-Rheumatology 04/26/16 documented as of this encounter
--- OUTSIDE RECORDS SUMMARY | 2024-08-22 21:47 | XMS_ITS | Encounter Summary ---
Author Organization [facility] [place] [address] Care Team Providers Care Electronic Page Makeup System Operator Name Role Phone Julisa Kerr MD Primary Care Provider [phone] Jessica Cortes MD Unavailable [phone] Encounter Details Date Type Department Care Team (Latest Contact Info) Description 06/01/2021 Travel Social History Tobacco Use Types Packs/Day [...] Description 08/31/2024 8:30 AM EST [address]ment [address] [place] [address] 10/25/2024 10:45 AM EST Office Visit [facility] R[facility]UMAT[facility] [address] [place] [address] Jessica Cortes MD 65 [facility] Building 19 [place] [address] 01/25/2025 9:00 AM EDT [address]ment [address] [place] [address] 05/09/2025 11:00 AM EDT [address]ointment [address] [place] [address] 05/09/2025 11:15 AM EDT [address]ointment [address] [place] [address] Susana Garay MD [address] [place] [address] [address] [place] [phone] documented as of this encounter Goals Goal [...] documented as of this encounter Care Teams Electronic Page Makeup System Operator Relationship Specialty Start Date End Date Julisa Kerr MD 100 [place] [address] PCP - General 02/22/11 Jessica Cortes MD [address] [address] Internal Medicine-Rheumatology 04/26/16 documented as of this encounter
--- OUTSIDE RECORDS SUMMARY | 2024-08-22 21:47 | XMS_ITS | Encounter Summary ---
Author Organization [place] [address] Care Team Providers Care Senior Integration Developer Name Role Phone Julisa Kerr MD Primary Care Provider [phone] Jessica Cortes MD Unavailable [phone] Encounter Details Date Type Department Care Team (Latest Contact Info) Description 06/20/2021 10:35 AM EDT - 06/20/2021 11:59 PM EDT Hospital Encounter [facility] [address] [place] [address] Rheumatoid arthritis involving multiple sites [...] 07/19/2021 folic acid (FOLVITE) 1 mg Oral TabletIndications: Rheumatoid arthritis involving multiple sites with positive rheumatoid factor (HCC) TAKE 1 TABLET BY MOUTH EVERY DAY 30 Tablet 11 06/18/2021 07/19/2021 leflunomide (ARAVA) 10 mg Oral TabletIndications: Rheumatoid arthritis involving multiple sites with positive rheumatoid factor (HCC) Take 1 Tablet by mouth daily. 30 Tablet 1 06/21/2021 08/22/2021 PROAIR HFA 90 mcg/actuation Inhl HFA Aerosol Inhaler TAKE 2 PUFFS BY MOUTH EVERY 6 HOURS NEEDED FOR WHEEZE 8 g 06/05/2021 06/27/2021 documented as of this encounter Discharge Disposition Disposition Code Departure Means Destination Home or Self Care documented in this encounter Plan of Treatment Upcoming Encounters Date Type Department Care Team (Late st Contact Info) Description 08/31/2024 8:30 AM EST Appointment [place] [address] [place] [address] 10/25/2024 10:45 AM EST Office Visit [facility] [address] [place] [address] Jessica Cortes MD [address] [place] [address] 01/25/2025 9:00 AM EDT Appointment [address] [place] [address] 05/09/2025 11:00 AM EDT Appointment [address] [place] [address] 05/09/2025 11:15 AM EDT Appointment [address] [address] Susana Garay MD [address] [place] [address] [place] [address] documented as of this encounter Goals Goal Patient Goal Type Associated Problems Recent Progress Patient-Stated? 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, RN documented as of this encounter Procedures Procedure Name Priority Date/Time Associated Diagnosis Comments SEDIMENTATION RATE AUTOMATED Routine 06/20/2021 10:37 AM EDT Rheumatoid arthritis involving multiple sites with positive rheumatoid factor (HCC) Therapeutic drug monitoring CBC WITH DIFF Routine 06/20/2021 10:37 AM EDT Rheumatoid arthritis involving multiple sites with positive rheumatoid factor (HCC) Therapeutic drug monitoring C-REACTIVE PROTEIN Routine 06/20/2021 10 :37 AM EDT Rheumatoid arthritis involving multiple sites with positive rheumatoid factor (HCC) Therapeutic drug monitoring COMPREHENSIVE METABOLIC PANEL Routine 06/20/2021 10:37 AM EDT Rheumatoid arthritis involving multiple sites with positive rheumatoid factor (HCC) Therapeutic drug monitoring documented in this encounter Results * (ABNORMAL) SEDIMENTATION RATE AUTOMATED (06/20/2021 10:37 AM EDT) Sed Rate 33(H) 0 - 30 mm/hr 06/20/2021 3:36 PM EDT [facility] Blood Venipuncture / Unknown 06/20/2021 10:37 AM EDT 06/20/2021 10:37 AM EDT us Jessica Cortes MD HEMATOLOGY ORDERABLES Fin al Result Performing Organization Address [facility]/ZIP Co de Phone Number [facility] [address] [place] [address] * (ABNORMAL) C-REACTIVE PROTEIN (06/20/2021 10:37 AM EDT) CRP 55.93(H) <=5.00 mg/L 06/20/2021 5:09 PM EDT [facility] Blood Venipuncture / Unknown 06/20/2021 10:37 AM EDT 06/20/2021 10:37 AM EDT us Jessica Cortes MD CHEMISTRY ORDERABLES Siobhan l Result [employer] [address] [place] [address], [place] [address] * (ABNORMAL) COMPREHENSIVE METABOLIC PANEL (06/20/2021 10:37 AM EDT) Sodium 139 136 - 145 mmol/L 06/20/2021 5:09 PM EDT [facility] Potassium 3.8 3.5 - 5.0 mmol/L 06/20/2021 5:09 PM EDT [facility] Chloride 101 98 - 107 mmol/L 06/20/2021 5:09 PM EDT [facility] Total CO2 26 22 - 29 mmol/L 06/20/2021 5:09 PM EDT [facility] Anion Gap 12 7 - 16 mmol/L 06/20/2021 5:09 PM EDT [facility] Calcium 9.6 8.6 - 10.4 mg/dL 06/20/2021 5:09 PM EDT [facility] Glucose Lvl 85 74 - 100 mg/dL 06/20/2021 5:09 PM EDT [facility] BUN 5(L) 6 - 20 mg/dL 06/20/2021 5:09 PM EDT [facility] Creatinine 0.79 0.51 - 1.30 mg/dL 06/20/2021 5:09 PM EDT [facility] Albumin 4.1 3.5 - 5.2 gm/dL 06/20/2021 5:09 PM EDT [facility] Total Protein 7.3 6.4 - 8.3 gm/dL 06/20/2021 5:09 PM EDT [facility] Bili Total 0.4 0.1 - 1.3 mg/dL 06/20/2021 5:09 PM EDT [facility] ALT 11 <=41 U/L 06/20/2021 5:09 PM EDT [facility] AST 18 <=40 U/L 06/20/2021 5:09 PM EDT [facility] Alk Phos 135(H) 36 - 123 U/L 06/20/2021 5:09 PM EDT [facility] GFR Afr Am 101 >=60 mL/min/1.7 3 m2 06/20/2021 5:09 PM EDT [facility] GFR Non Afr Am 88 >=60 mL/min/1.7 3 m2 06/20/2021 5:09 PM EDT [facility] Comment: This estimated GFR was [...] AM EDT 06/20/2021 10:37 AM EDT Jessica Cortes MD CHEMISTRY ORDERABLES Siobhan finnegan Result [facility] [address] [facility], [address] [place] [id number] [facility] [address] [place] [phone] * (ABNORMAL) CBC WITH DIFF (06/20/2021 10:37 AM EDT) WBC 6.0 3.7 - 10.3 x10(3)/mcL 06/20/2021 [...] 06/20/2021 3:11 PM EDT [facility] Neut Percent 54.8 % 06/20/2021 3:11 PM EDT [facility] Comment:Neutrophils equals s egs plus bands Imm Gran% 0.5 % 06/20/2021 3:11 PM EDT [facility] Comment:Automated count of m etamyelocytes, myelocytes and promyelocytes. Lymph Percent 24.1 % 06/20/2021 3:11 PM EDT [facility] Stafford Percent 12.8 % 06/20/2021 3:11 PM EDT [facility] Eos Percent 7.0 % 06/20/2021 3:11 PM EDT [facility] Baso Percent 0.8 % 06/20/2021 3:11 PM EDT [facility] Neut # 3.3 1.6 - 6.1 x10(3)/[facility] 06/20/2021 3:11 PM EDT [facility] Comment:Neutrophils equals s egs plus bands IMMGRAN# 0.0 0.0 - 0.1 x10(3)/[facility] 06/20/2021 3:11 PM EDT [facility] Comment:Automated count of m etamyelocytes, myelocytes and promyelocytes. An absolute IG <0.1 is reported as 0.0. Lymph # 1.5 1.2 - 3.9 x10(3)/[facility] 06/20/2021 3:11 PM EDT [facility] Stafford # 0.8 0.3 - 0.9 x10(3)/[facility] 06/20/2021 3:11 PM EDT [facility] Eos# 0.4 0.0 - 0.5 x10(3)/[facility] 06/20/2021 3:11 PM EDT [facility] Baso # 0.1 0.0 - 0.1 x10(3)/[facility] 06/20/2021 3:11 PM EDT [facility] Blood Venipuncture / Unknown 06/20/2021 10:37 AM EDT 06/20/2021 10:37 AM EDT us Jessica Cortes MD HEMATOLOGY ORDERABLES Fin al Result [facility] [address] [facility], [place] [address] documented in this encounter Visit Diagnoses Diagnosis Rheumatoid arthritis involving multiple sites with positive rheumatoid factor (HCC) Therapeutic drug monitoring Encounter for therapeutic drug monitoring documented in this encounter Additional Health Concerns Infection Onset Date Last Indicated Resolved Time COVID-19 06/01/2021 06/01/2021 06/21/2021 10:1 3 PM EDT documented as of this encounter Care Teams Senior Integration Developer Relationship Specialty Start Date End Date Julisa Kerr MD 100 [place] [address] PCP - General 02/22/11 Jessica Cortes MD [address] [address] Internal Medicine-Rheumatology 04/26/16 documented as of this encounter
--- OUTSIDE RECORDS SUMMARY | 2024-08-22 21:47 | XMS_ITS | Encounter Summary ---
Author [place] [address] Care Team Providers Care Commercial Horticulture Instructor Name Role Phone Julisa Kerr MD Primary Care Provider [phone] Jessica Cortes MD Unavailable [phone] Encounter Details Date Type Department Care Team (Late st Contact Info) Description 05/24/2021 8:45 AM EDT Telemedicine [address] [address] Thierno Toth MD [address] [place] [address] Cough (Primary Dx); Rheumatoid arthritis involving multiple sites with positive rheumatoid factor (HCC); Acute pain of left shoulder Social History Tobacco Use Types Packs/Day Years [...] End Date cefdinir (OMNICEF) 300 mg Oral CapsuleIndications :Cough Take 1 Capsule by mouth 2 times daily for 10 days. 20 Capsule 05/24/2021 1 predniSONE (DELTASONE) 10 mg Oral TabletIndications: Rheumatoid arthritis involving multiple sites with positive rheumatoid factor (HCC),Acute pain of left shoulder Take 3 tablets daily x 5 days then 2 tablets daily x 5 days then 1 tablet daily x 5 days then stop. 30 Tablet 05/24/2021 1 documented in this encounter Progress Notes * Thierno Toth MD - 05/24/2021 8:45 AM EDT Patient presented today for routine care follow-up through a video visit. Patient has reviewed the terms and conditions of service as part of the registration for today's visit. A video visit does not replace a [id number] exam and further services may be necessary. We are conducting her video visit in a private space and this video visit is being conducted in accordance with state telehealth/video visit regulations. HPI: been sick for one month. 10 days of congestion, clear productive cough, body aches, chills. Diarrhea initially. Arthritis worsening. Had covid last July. Review of Systems Constitutional: Negative for fever. HENT: Positive for congestion. Negative for ear pain, sinus pressure, sinus pain, sore throat, trouble swallowing and voice change. Eyes: Negative for visual disturbance. Respiratory: Positive for cough and shortness of breath. Cardiovascular: Negative for chest pain, palpitations and leg swelling. Gastrointestinal: Positive for diarrhea. Negative for abdominal pain, constipation, nausea and vomiting. Genitourinary: Negative for difficulty urinating. Musculoskeletal: Negative [...] Diagnoses and all orders for this visit: Cough - cefdinir (OMNICEF) 300 mg Oral Capsule; Take 1 Capsule by mouth 2 times daily for 10 days. Dispense: 20 Capsule; Refill: 0 Rheumatoid arthritis involving multiple sites with positive rheumatoid factor (HCC) (Chronic) - predniSONE (DELTASONE) 10 mg Oral Tablet; Take 3 tablets daily x 5 days then 2 tablets daily x 5 days then 1 tablet daily x 5 days then stop. Dispense: 30 Tablet; Refill: 0 Acute pain of left shoulder - predniSONE (DELTASONE) 10 mg Oral Tablet; [...] EST Appointment [facility] [place] [address] [place] [address] 10/25/2024 10:45 AM EST Office Visit [facility] [address] [place] [address] Jessica Cortes MD [address] [facility] Building 19 [place] [address] 01/25/2025 9:00 AM EDT [address]ointment [address] [place] [place] [address] 05/09/2025 11:00 AM EDT Appointment [address] [place] [address] 05/09/2025 11:15 AM EDT Appointment [address] [place] [address] Susana Garay MD [address] [place] [address] [place] [address] documented as of this encounter Goals Goal Patient Goal Type Associated Problems Recent Progress Patient-Stated? Author Maintain a healthy diet, exercise regularly and maintain an ideal body weight General Porsche Ashley RN documented as of this encounter Visit Diagnoses Diagnosis Cough- Primary Rheumatoid arthritis involving multiple sites with positive rheumatoid factor (HCC) Acute pain of left shoulder documented in this encounter Discontinued Medications Medication Sig Discontinue Reason Start Date End Da te predniSONE (DELTASONE) 10 mg Oral TabletIndications:Rheuma toid arthritis involving multiple sites with positive rheumatoid factor (HCC),Acute pain of left shoulder Take 3 tablets daily x 5 days then 2 tablets daily x 5 days then 1 tablet daily x 5 days then stop. Reorder 11/22/2020 05/24/2021 documented as of this encounter Care Teams Commercial Horticulture Instructor Relationship Specialty Start Date End Date Julisa Kerr MD 100 [place], [place] [id number] PCP - General 02/22/11 Jessica Cortes MD 651 [facility] Building [address] [place] [address] Internal Medicine-Rheumatology 04/26/16 documented as of this encounter
--- OUTSIDE RECORDS SUMMARY | 2024-08-22 21:47 | XMS_ITS | Encounter Summary ---
Author Organization [place] [address] Care Team Providers Care Vp Account Director Name Role Phone Julisa Conde MD Primary Care Provider [phone] Jessica Cortes MD Unavailable [phone] Reason for Visit * Reason Comments Labs Only Encounter Details Date Type Department Care Team (Latest Contact Info) Description 06/01/2021 11:00 AM EDT Clinical Support [facility] [address] [place] [address] Elizabet Levy MA Cough (Primary Dx); Congestion of nasal sinus; Malaise and fatigue Social History Tobacco Use Types Packs/Day Years [...] documented in this encounter Progress Notes * Elizabet Macias MA - 06/01/2021 11:00 AM EDT Pt is here today for a rapid covid test Spoke to pts and he is going to try to get a hold of her to call us back. Per dr conde since she is positive she is a candidate for the monoclonal antibodies. I tried calling her but didn't get an answer. documented in this encounter Plan of Treatment Upcoming Encounters Date Type Department Care Team (Late st Contact Info) Description 08/31/2024 8:30 AM EST Appointment [facility] [address] [place] [address] 10/25/2024 10:45 AM EST Office Visit [facility] [address] [facility] [address] [place] [address] Jessica Cortes MD 651 [facility] Building [address] [place] [address] 01/25/2025 9:00 AM EDT Appointment [place] [address] [place] [address] 05/09/2025 11:00 AM EDT Appointment [place] [address] [place] [address] 05/09/2025 11:15 AM EDT Appointment [place] [address] [place] [address] Susana Garay MD [address] [place] [address] [place] [address] documented as of this encounter Goals Goal Patient Goal Type Associated Problems Recent Progress Patient-Stated? 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 RN documented as of this encounter Procedures Procedure Name Priority Date/Time Associated Diagnosis Comments POCT GIL SARS ANTIGEN Routine 06/01/2021 11:18 AM EDT Cough Congestion of nasal sinus Malaise and fatigue documented in this encounter Results * (ABNORMAL) POCT GIL SARS ANTIGEN (06/01/2021 11:18 AM EDT) SARS Antigen Positive(A ) Negative SEP OFFICE Lot Number SEP OFFICE Expiration Date SEP OFFICE SeriAl # SEP OFFICE Control Line Yes YES/NO SEP OFFICE 06/01/2021 11:1 8 AM EDT us Julisa Conde MD POINT OF CARE TEST ORDERABLES Final Result SEP OFFICE documented in this encounter Visit Diagnoses Diagnosis Cough- Primary Congestion of nasal sinus Other diseases of nasal cavity and sinuses Malaise and fatigue Other malaise and fatigue documented in this encounter Additional Health Concerns Infection Onset Date Last Indicated Resolved Time COVID-19 06/01/2021 06/01/2021 06/21/2021 10:1 3 PM EDT documented as of this encounter Care Teams Vp Account Director Relationship Specialty Start Date End Date Julisa Conde MD [address] [place] [id number] PCP - General 02/22/11 Jessica Cortes MD [address] [place] [address] Internal Medicine-Rheumatology 04/26/16 documented as of this encounter
--- OUTSIDE RECORDS SUMMARY | 2024-08-22 21:48 | XMS_ITS | Encounter Summary ---
Author [place] [address] Care Team Providers Care Vice President Business Development Name Role Phone Julisa Kerr MD Primary Care Provider [phone] Jessica Cortes MD Unavailable [phone] Reason for Visit * Reason Comments Medication Refill Encounter Details Date Type Department Care Team (Late st Contact Info) Description 09/18/2020 Refill SEP Rheumatology [facility] 651 [facility] Building [address] [place] [phone] Jessica Cortes MD [address] [place] [phone] Medication Refill Social History Tobacco Use Types Packs/Day Years Used Date Smoking Tobacco: Never Smokeless Tobacco: Never Alcohol Use Standard Drinks/Week Comments Yes 0 (1 standard drink = 0.6 oz pur e alcohol) occasional PHQ-2 Answer Date Recorded PHQ-2 Score 0 03/09/2020 Sexually Active Control Partners Comments Yes Comments [...] have Coronavirus / COVID-19? No / Unsure 08/30/2020 1:44 PM EST documented as of this encounter Functional Status * Is the person deaf or does he/she have serious difficulty hearing? Answer Date of Assessment Author No 03/09/2020 1:02 PM EDT Albin Levy MA * Is the person blind or does he/she have serious difficulty seeing even when wearing glasses? Answer Date of Assessment Author No 03/09/2020 1:02 PM EDT Albin Levy MA * Does this person have serious difficulty walking or climbing stairs? Answer Date of Assessment Author No 03/09/2020 1:02 PM EDT Albin Levy MA * Does this person have difficulty dressing or bathing? Answer Date of Assessment Author No 03/09/2020 1:02 PM EDT Albin Levy MA * Because of a physical, mental or emotional condition, does this person have difficulty doing errands alone such as visiting a doctor's office or shopping? Answer Date of Assessment Author No 03/09/2020 1:02 PM EDT Albin Levy MA documented as of this encounter Mental Status * Because of a physical, mental or emotional condition, does this person have serious difficulty concentrating, remembering or making decisions? Answer Entry Date Author No 03/09/2020 1:02 PM EDT Albin Levy MA documented in this encounter Miscellaneous Notes * Telephone Encounter - Miya Haider MA - 09/18/2020 2:14 PM EST Wendy; 06/21/20 Labs; 05/16/20 Nov; No follow up on file Return in about 2 months (around 08/21/2020). ?? patient needs a follow up visit documented in this encounter Plan of Treatment Upcoming Encounters Date Type Department Care Team (Late st Contact Info) Description 08/31/2024 8:30 AM EST Appointment [facility] [address] [place] [address] 10/25/2024 10:45 AM EST Office Visit [facility] RHEUMATOLOGY [facility] [address] [place] [address] [facility] [address] [place] [address] Jessica Cortes MD [address] [address] 01/25/2025 9:00 AM EDT Appointment [place] [address] [place] [address] 05/09/2025 11:00 AM EDT [address]ointment [address] [place] [address] 05/09/2025 11:15 AM EDT Appointment [address] [place] [address] Susana Garay MD [address] [place] [address] [place] [address] documented as of this encounter Goals Goal Patient Goal Type Associated Problems Recent Progress Patient-Stated? Author Maintain a healthy diet, exercise regularly and maintain an ideal body weight General Porsche Ashley RN documented as of this encounter Visit Diagnoses Diagnosis Rheumatoid arthritis involving multiple sites with positive rheumatoid factor (HCC) documented in this encounter Care Teams Vice President Business Development Relationship Specialty Start Date End Date Julisa Kerr MD [address] [place] [address] PCP - General 02/22/11 Jessica Cortes MD [address] [address] Internal Medicine-Rheumatology 04/26/16 documented as of this encounter
--- OUTSIDE RECORDS SUMMARY | 2024-08-22 21:48 | XMS_ITS | Encounter Summary ---
Author Organization [place] [address] Care Team Providers Care Cook Ship Name Role Phone Julisa Kerr MD Primary Care Provider [phone] Jessica Cortes MD Unavailable [phone] Reason for Visit * Reason Comments Follow-up Rheumatoid Arthritis * Consultation (Routine) - Closed Specialty Diagnoses / Procedures Referred By Anatoliy cole Referred To Contact Internal Medicine-Rheumatology / Rheumatology Diagnoses 3 month Procedures FOLLOW UP Julisa Kerr MD Phone: tel: fax: Jessica Cortes MD [address] [address] Phone: tel: fax: Referral ID Status Reason Start Date Expiration Date Visits Re quested Visits Authorized [id number] Closed 06/21/2020 06/21/2021 99 99 Encounter Details Date Type Department Care Team (Latest Contact Info) Description 06/21/2020 1:15 PM EDT Office Visit SEP Rheumatology [facility] [address] [phone] Jessica Cortes MD [address] [place] [phone] Rheumatoid arthritis involving multiple sites with positive rheumatoid factor (HCC) (Primary Dx); Raynaud's phenomenon without gangrene; Positive BRET (antinuclear antibody); Sicca syndrome (HCC); Neck pain; Osteopenia of multiple sites; Trochanteric bursitis of right hip; Immunocompromised patient [...] Sign Reading Time Taken Comments Blood Pressure 120/79 06/21/2020 1:26 PM EDT Pulse 87 06/21/2020 1:26 PM EDT Temperature 36.7 ??C (98.1 ??F) 06/21/2020 1:26 PM ED T Respiratory Rate 16 06/21/2020 1:26 PM EDT Oxygen Saturation - - Inhaled Oxygen Concentration - - Weight 62.3 kg (137 lb 6.4 oz) 06/21/2020 1:26 P M EDT Height 157.5 cm (5' 2 ) 06/21/2020 1:26 PM EDT Body Mass Index 25.13 06/21/2020 1:26 PM EDT documented in this encounter Functional [...] End Date leflunomide (ARAVA) 10 mg Oral TabletIndications :Rheumatoid arthritis involving multiple sites with positive rheumatoid factor (HCC) Take 1 Tab by mouth daily. 30 Tab 1 06/21/2020 1 methotrexate sodium 25 mg/mL Inj SolutionIndicatio ns:Rheumatoid arthritis involving multiple sites with positive rheumatoid factor (HCC) SUBCUTANEOUS (INJECT UNDER THE SKIN) 0.6 ML EVERY 7 DAYS. 4 mL 06/21/2020 1 documented in this encounter Progress Notes * Jessica Cortes MD - 06/21/2020 1:15 PM EDT Subjective Subjective: Patient ID: Yuliet Newsome is a 49 y.o. female. Chief Complaint Patient presents with ??? Follow-up ??? Rheumatoid Arthritis HPI The patient comes in for follow up regarding RA. Symptoms started in 2002. Seen by Can Machine Operator, Dr. Astorga. She was seen in [facility] but have not seen her in [...] mild pain- 3/10, mild swelling. Feels worse. Kevzara caused significant GI issues and she stopped it. She had another flare recently in the right wrist and right ankle. More swelling and pain. She was off Kevzara because she did not get the shipment on time. Joint pain: hands, wrists, knee, shoulder, right hips ( bursitis) feet, Joint swelling: more after working for prolonged time- hands Dry eyes realy bothersome. Uses eye drops. Dry mouth pretty bothersome. Pain on a scale 0-10: 9/10 Type of pain: ache Morning stiffness: up to 60 minutes. Raynaud's: worsened in the cold weather. Current therapy: MTX 15 mg weekly, folic acid 1 mg daily, Previous therapy: [...] 200 mg q 2 weeks ( started 12/2019) Patients past medical, family and social histories were reviewed and updated. There were no changesexcept as noted. has cirrhosis of the liver and it is failing. 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 Past Medical History: Diagnosis Date ??? Arthritis [...] ??? amitriptyline (ELAVIL) 25 mg Oral Tablet Take 1 Tab by mouth nightly. 30 Tab 2 ??? busPIRone (BUSPAR) 10 mg Oral Tablet Take 1 Tab by mouth 2 times daily as needed. 60 Tab 2 ??? cyanocobalamin 1,000 mcg/mL Inj Solution INJECT 1ML INTO THE MUSCLE EVERY MONTH 1 mL 3 ??? fluticasone (FLONASE) 50 mcg/actuation Nasl Vancourt, Suspension 1 Vancourt by Nasal route daily. 1 Bottle 2 ??? folic acid (FOLVITE) 1 mg Oral Tablet Take 1 Tab by mouth daily. 30 Tab 2 ??? predniSONE (DELTASONE) 10 mg Oral Tablet Take 20 mg by mouth 2 times daily. ??? sertraline (ZOLOFT) 50 mg Oral Tablet TAKE 1/2 TABLET BY MOUTH DAILY FOR 7 DAYS, THEN 1 TABLET BY MOUTH THEREAFTER. 90 Tab 2 ??? terbinafine HCL (LAMISIL) 250 mg Oral Tablet TAKE 1 TABLET BY MOUTH EVERY DAY FOR 2 WEEKS 14 Tab 0 ??? VENTOLIN HFA 90 mcg/actuation Inhl HFA Aerosol Inhaler INHALE TWO PUFFS BY MOUTH EVERY 6 HOURS NEEDED FOR WHEEZING 1 Inhaler 0 ??? KEVZARA 200 mg/1.14 mL SubQ Pen Injector INJECT 1 PEN UNDER THE SKIN EVERY 2 WEEKS (Patient nottaking: Reported on 06/21/2020) 2.28 mL 2 No current facility-administered medications on file prior to visit. Social History Tobacco Use ??? Smoking status: Never Smoker ??? Smokeless tobacco: Never Used Substance Use Topics ??? Alcohol use: Yes Comment: occasional ??? Drug use: No Family History Problem Relation Age of Onset ??? Arthritis Father ??? Arthritis Paternal Grandmother Review of Systems Constitutional: Positive for fatigue. [...] reviewed and are negative. Objective Objective: Vitals: 06/21/20 1326 BP: 120/79 Pulse: 87 Resp: 16 Temp: 98.1 ??F (36.7 ??C) TempSrc: Forehead Weight: 137 lb 6.4 oz (62.3 kg) Height: 5' 2 (1.575 m) Body mass index is 25.13 kg/m??. Physical Exam Constitutional: She is oriented to person, place, and time. She appears well- developed and well-nourished. HENT: Head: Normocephalic and atraumatic. Eyes: Pupils are equal, round, and reactive to light. Conjunctivae are normal. Neck: Normal range of motion. Musculoskeletal: Comments: Tenderness to the trapezius muscles, spinal processes of the lumbar spine and paraspinalsin the lumbar area. Crepitus in the right shoulder. Tenderness to both wrists, 5th right PIP. Synovitis in the wrists, significant in the right wrist, moderate in the left wrist, 1st, 2nd, 3rd On right and 1st left MCP, 5th right PIP. ROM of the knees, ankles intact, no effusion. ROM of the wrists decreased. No tenderness to the right trochanteric bursa. Neurological: She is alert and oriented to person, place, and time. Muscle strength 5/5 upper and lower extremities. Skin: Skin is warm. No rash noted. Psychiatric: She has a normal mood and affect. Vitals reviewed. Rapid 3: 21.3 Lab Results Component Value Date WBC 10.2 05/16/2020 HGB 13.7 05/16/2020 HCT 42.5 05/16/2020 MCV 91.6 05/16/2020 PLT 339 05/16/2020 Chemistry Component Value Date/Time NA 138 05/16/2020 1509 NA 138 11/23/2019 K 4.1 05/16/2020 1509 K 4.6 11/23/2019 CL 102 05/16/2020 1509 CL 102 11/23/2019 CO2 26 05/16/2020 1509 CO2 27 11/23/2019 BUN 7 05/16/2020 1509 BUN 11 11/23/2019 CREATININE 0.75 05/16/2020 1509 CREATININE 0.7 11/23/2019 GLU 86 05/16/2020 1509 GLU 103 (H) 07/01/2017 1532 Component Value Date/Time CALCIUM 9.5 05/16/2020 1509 CALCIUM 9.60 11/23/2019 ALKPHOS 101 05/16/2020 1509 ALKPHOS 112 11/23/2019 AST 16 05/16/2020 1509 AST 20 11/23/2019 ALT 7 05/16/2020 1509 ALT 9 11/23/2019 BILITOT 0.2 11/23/2019 Lab Results Component Value Date CRP 11.86 (H) 05/16/2020 Lab Results Component Value Date SEDRATE 25 (H) 05/16/2020 Assessment and Plan: Yuliet was seen today for follow-up and rheumatoid arthritis. Diagnoses and all orders for this visit: Rheumatoid arthritis involving multiple sites, with positive rheumatoid factor (HCC) Dx in [address]. Astorga in [facility]. Records from [facility] received and reviewed. The patient was seen in 05/11/13 for initial evaluation. Presented with polyarticular joint involvement- large and small joints- shoulders, elbows, knees, wrists, knuckles, toes. Per records she had low titer (+) RF, (-) CCP, (+) BRET centromere pattern > 8.0 with negative SSA/SSB, SALES DEPARTMENT CLERK, Scl 70, dsDNA Records indicate she used [...] CCP Recurrent flares of joint pain, swelling. MTX started 15 mg in 2012, changed [...] PIP. Restarted MTX 15 mg SQ weekly Started Kevzara 200 mg q 2 weeks in 12/2019. Symptoms better on Kevzara. Less tenderness, less synovitis in exam at the last visit. Off Kevzara due to nausea. Start Arava 10 mg daily. Will increase as tolerated. Risks of therapy discussed with the patient including gastrointestinal intolerance and weight loss, hepatotoxicity, bone marrow toxicity, cancers,lymphoma, teratogenicity and susceptibility to infections. Written information provided. Hepatitis panel checked and negative. Patient should hold therapy while being treated for infections. Patient should not receive live vaccines while on therapy. - methotrexate sodium 25 mg/mL Inj Solution; SUBCUTANEOUS (INJECT UNDER THE SKIN) 0.6 ML EVERY 7 DAYS. - leflunomide (ARAVA) 10 mg Oral Tablet; Take 1 Tab by mouth daily. Raynaud's phenomenon without gangrene [...] heat, ice, massage Osteopenia of multiple sites Surgical menopause in 2000 Hx of RA, frequent prednisone use Bone density ( 05/03/16) T score -2.2 at the right femoral neck FRAX score - risk for fracture is low. Vitamin D daily Weight bearing exercises regularly DXA 12/18/18 shows low bone mass. Improved in the spine and stable in the hip in comparison to the last DXA from 2016 Trochanteric bursitis of right hip Flaring up No tenderness to the right trochanteric bursa today x rays of the hip reveals mild symmetrical joint space narrowing in both hips Trochanteric bursa exercises discussed, info given again Topical OTC creams Possible cortisol injections in the future. Immunocompromised patient (HCC) Due to immunosuppression Prevnar 13 given 12/13/16 Pneumovax 23 given 03/17/17 Therapeutic drug monitoring TB gold negative 11/23/19 Labs every 6-8 weeks while on MTX and Cimzia - COMPREHENSIVE METABOLIC PANEL; Future - CBC WITH DIFF; Future - C-REACTIVE PROTEIN; Future - SEDIMENTATION RATE AUTOMATED; Future Return in about 2 months (around 08/21/2020). documented in this encounter Miscellaneous Notes * Patient Instructions - Jessica Cortes MD - 06/21/2020 1:15 PM EDT Start Arava ( Leflunomide) 10 mg daily. If you have GI upset hold it until symptoms resolve and restart at 0.5 tablet daily Please check labs in 4 weeks and then again in 2 month. documented in this encounter Plan of Treatment Upcoming Encounters Date Type Department Care Team (Late st Contact Info) Description 08/31/2024 8:30 AM EST Appointment [place] [address] [place] [address] 10/25/2024 10:45 AM EST Office Visit [facility] RHEUMATOLOGY [facility] [address] [place] [phone] Jessica Cortes MD [address]51 [facility] Building [address] [place] [address] 01/25/2025 9:00 AM EDT Appointment [place] [address] [place] [address] 05/09/2025 11:00 AM EDT Appointment [place] [address] [place] [address] 05/09/2025 11:15 AM EDT Appointment [place] [address] [place] [address] Susana Garay MD [address] [place] [address] [place] [address] Scheduled Orders Name Type Priority Associated Diagnoses Orde r Schedule COMPREHENSIVE METABOLIC PANEL Lab Routine Therapeutic drug monitoring Expected: 06/21/2020, Expires: 08/21/2020 CBC WITH DIFF Lab Routine Therapeutic drug monitoring Expected: 06/21/2020, Expires: 08/21/2020 C-REACTIVE PROTEIN Lab Routine Therapeutic drug monitoring Expected: 06/21/2020, Expires: 08/21/2020 SEDIMENTATION RATE AUTOMATED Lab Routine Therapeutic drug monitoring Expected: 06/21/2020, Expires: 08/21/2020 documented as of this encounter Goals Goal [...] Neck pain Cervicalgia Osteopenia of multiple sites Trochanteric bursitis of right hip Enthesopathy of [...] SKIN) 0.6 ML EVERY 7 DAYS. Reorder 05/15/2020 06/21/2020 documented as of this encounter Historical Medications * This list may reflect changes made after this encounter. predniSONE (DELTASONE) 10 mg Oral Tablet Take 20 mg by mouth 2 times daily. 11/22/2020 added in this encounter Care Teams Cook Ship Relationship Specialty Start Date End Date Julisa Kerr MD [address] [place] [address] PCP - General 02/22/11 Jessica Cortes MD 651 [facility] Building [address] [place], [place] [id number] Internal Medicine-Rheumatology 04/26/16 documented as of this encounter
--- OUTSIDE RECORDS SUMMARY | 2024-08-22 21:48 | XMS_ITS | Encounter Summary ---
Author Organization [place] [address] Care Team Providers Care Railroad Crane Operator Name Role Phone Julisa Kerr MD Primary Care Provider [phone] Jessica Cortes MD Unavailable [phone] Encounter Details Date Type Department Care Team (Late st Contact Info) Description 11/22/2020 Orders Only SEP Rheumatology [facility] 651 [facility] Building [address] [place] [phone] Mary Tatum RMA Rheumatoid arthritis involving multiple sites with positive rheumatoid factor (HCC); Raynaud's phenomenon without gangrene; Therapeutic drug monitoring Social History Tobacco Use [...] or suspected to have Coronavirus / COVID-19? Yes 11/22/2020 1:03 PM EST documented as of this encounter [...] Description 08/31/2024 8:30 AM EST Appointment [address] [place] [address] 10/25/2024 10:45 AM EST Office Visit [facility] RHEUMATOLOGY [facility] [address] [place] [address] Jessica Cortes MD [address] [facility] Building [address] [place] [address] 01/25/2025 9:00 AM EDT [address]ointment [address] [place] [address] 05/09/2025 11:00 AM EDT [address]ointment [address] [place] [address] 05/09/2025 11:15 AM EDT Appointment [facility] [place] [address] [place] [id number] Susana Graay MD [address] [facility] [address] [place], [place] [address] documented as of this encounter Goals Goal Patient Goal Type Associated Problems Recent Progress Patient-Stated? 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 RN documented as of this encounter Procedures Procedure Name Priority Date/Time Associated Diagnosis Comments CBC Routine 11/22/2020 1:55 PM EST Rheumatoid arthritis involving multiple sites with positive rheumatoid factor (HCC) Raynaud's phenomenon without gangrene Therapeutic drug monitoring SEDIMENTATION RATE AUTOMATED Routine 11/22/2020 1:55 PM EST Rheumatoid arthritis involving multiple sites with positive rheumatoid factor (HCC) Raynaud's phenomenon without gangrene Therapeutic drug monitoring C-REACTIVE PROTEIN Routine 11/22/2020 1: 55 PM EST Rheumatoid arthritis involving multiple sites with positive rheumatoid factor (HCC) Raynaud's phenomenon without gangrene Therapeutic drug monitoring COMPREHENSIVE METABOLIC PANEL Routine 11/22/2020 1:55 PM EST Rheumatoid arthritis involving multiple sites with positive rheumatoid factor (HCC) Raynaud's phenomenon without gangrene Therapeutic drug monitoring documented in this encounter Results * (ABNORMAL) C-REACTIVE PROTEIN (11/22/2020 1:55 PM EST) CRP 21.10(H) <=5.00 mg/L 11/22/2020 11:12 PM EST [facility] Blood VENOUS BLOOD / Unknown Venipuncture / Unknown 11/22/2020 1:55 PM EST 11/22/2020 1:55 PM EST us Jessica Cortes MD CHEMISTRY ORDERABLES Siobhan l Result [facility] [address] [facility], [address] [place] [phone] * (ABNORMAL) SEDIMENTATION RATE AUTOMATED (11/22/2020 1:55 PM EST) [facility] Sed Rate 41(H) 0 - 30 mm/hr 11/22/2020 9:31 PM EST [facility] Blood VENOUS BLOOD / Unknown Venipuncture / Unknown 11/22/2020 1:55 PM EST 11/22/2020 1:55 PM EST us Jessica Cortes MD HEMATOLOGY ORDERABLES Fin al Result [facility] [address] [place] [address] * (ABNORMAL) COMPREHENSIVE METABOLIC PANEL (11/22/2020 1:55 PM EST) [facility] Sodium 138 136 - 145 mmol/L 11/22/2020 11:12 PM EST [facility] Potassium 3.9 3.5 - 5.0 mmol/L 11/22/2020 11:12 PM EST [facility] Chloride 103 98 - 107 mmol/L 11/22/2020 11:12 PM EST [facility] Total CO2 23 22 - 29 mmol/L 11/22/2020 11:12 PM EST [facility] Anion Gap 12 7 - 16 mmol/L 11/22/2020 11:12 PM EST [facility] Calcium 9.7 8.6 - 10.4 mg/dL 11/22/2020 11:12 PM EST [facility] Glucose Lvl 150(H) 74 - 100 mg/dL 11/22/2020 11:12 PM EST [facility] BUN 8 6 - 20 mg/dL 11/22/2020 11:12 PM EST [facility] Creatinine 0.67 0.51 - 1.30 mg/dL 11/22/2020 11:12 PM EST [facility] Albumin 4.3 3.5 - 5.2 gm/dL 11/22/2020 11:12 PM EST [facility] Total Protein 7.6 6.4 - 8.3 gm/dL 11/22/2020 11:12 PM EST [facility] Bili Total 0.2 0.1 - 1.3 mg/dL 11/22/2020 11:12 PM EST [facility] ALT 22 <=41 U/L 11/22/2020 11:12 PM EST [facility] AST 25 <=40 U/L 11/22/2020 11:12 PM EST [facility] Alk Phos 124(H) 36 - 123 U/L 11/22/2020 11:12 PM EST [facility] GFR Afr Am 119 >=60 mL/min/1.7 3 m2 11/22/2020 11:12 PM EST [facility] GFR Non Afr Am 103 >=60 mL/min/1.7 3 m2 11/22/2020 11:12 PM EST [facility] Comment: This estimated GFR was [...] in nutritional status or muscle mass. Blood VENOUS BLOOD / Unknown Venipuncture / Unknown 11/22/2020 1:55 PM EST 11/22/2020 1:55 PM EST us Jessica Cortes MD CHEMISTRY ORDERABLES Siobhan l Result [facility] [address] [facility] , [address] [place] [phone] [facility] 1 [place] [address] * CBC (11/22/2020 1:55 PM EST) [facility] WBC 8.2 3.7 - 10.3 x10(3)/mcL 11/22/2020 9:04 PM EST [facility] RBC 5.11 3.90 - 5.20 x10(6)/mcL 11/22/2020 9:04 PM EST [facility] Hgb 14.0 11.2 - 15.7 g/dL 11/22/2020 9:04 PM EST [facility] Hct 44.6 34.0 - 45.0 % 11/22/2020 9:04 PM EST [facility] MCV 87.3 80.0 - 100.0 fL 11/22/2020 9:04 PM EST [facility] MCH 27.4 26.0 - 34.0 pg 11/22/2020 9:04 PM EST [facility] MCHC 31.4 30.7 - 35.5 g/dL 11/22/2020 9:04 PM EST [facility] RDW 12.9 <=14.9 % 11/22/2020 9:04 PM EST [facility] Platelet 352 155 - 369 x10(3)/mcL 11/22/2020 9:04 PM EST [facility] MPV 11.6 8.8 - 12.5 fL 11/22/2020 9:04 PM EST [facility] Blood VENOUS BLOOD / Unknown Venipuncture / Unknown 11/22/2020 1:55 PM EST 11/22/2020 1:55 PM EST us Jessica Cortes MD HEMATOLOGY ORDERABLES Fin al Result [facility] [address] [facility] , [place] [address] documented in this encounter Visit Diagnoses Diagnosis Rheumatoid arthritis involving multiple sites with positive rheumatoid factor (HCC) Raynaud's phenomenon without gangrene Therapeutic drug monitoring Encounter for therapeutic drug monitoring documented in this encounter Care Teams Railroad Crane Operator Relationship Specialty Start Date End Date Julisa Kerr MD [address] [place] [id number] PCP - General 02/22/11 Jessica Cortes MD 651 [facility] [address] [place] [address] Internal Medicine-Rheumatology 04/26/16 documented as of this encounter
--- OUTSIDE RECORDS SUMMARY | 2024-08-22 21:48 | XMS_ITS | Encounter Summary ---
Author Organization [place] [address] Care Team Providers Care Structural Steel Erection Supervisor Name Role Phone Julisa Kerr MD Primary Care Provider [phone] Jessica Cortes MD Unavailable [phone] Reason for Visit * Reason Onset Date Comments Medication Refill 05/16/2020 Encounter Details Date Type Department Care Team (Late st Contact Info) Description 05/16/2020 Refill [facility]P [facility] [address] [place] [phone] Julisa Kerr MD 100 [place] [address] Medication Refill Social History Tobacco Use Types [...] End Date amitriptyline (ELAVIL) 25 mg Oral TabletIndications:I nsomnia, unspecified type Take 1 Tab by mouth nightly. 30 Tab 2 05/16/2020 07/27/2020 documented in this encounter Plan of Treatment Upcoming Encounters Date Type Department Care Team (Late st Contact Info) Description 08/31/2024 8:30 AM EST Appointment [address] [place] [address] 10/25/2024 10:45 AM EST Office Visit [facility] [address] [facility] [address] [place] [address] Jessica Cortes MD [address] [facility] Building 19 [place] [address] 01/25/2025 9:00 AM EDT Appointment [address] [place] [address] 05/09/2025 11:00 AM EDT Appointment [facility] [address] [id number] 05/09/2025 11:15 AM EDT Appointment [facility] [place] [address] [address] Susana Garay MD [address] [place] [address] [address] [place] [id number] documented as of this encounter Goals Goal Patient Goal Type Associated Problems Recent Progress Patient-Stated? 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, RN documented as of this encounter Visit Diagnoses Diagnosis Insomnia, unspecified type documented in this encounter Discontinued Medications Medication Sig Discontinue Reason Start Date End Da te amitriptyline (ELAVIL) 25 mg Oral TabletIndications:Insomni a, unspecified type TAKE 1 TABLET BY MOUTH EVERY DAY AT NIGHT Reorder 06/14/2019 05/16/2020 documented as of this encounter Care Teams Structural Steel Erection Supervisor Relationship Specialty Start Date End Date Julisa Kerr MD 100 [place], [place] [id number] PCP - General 02/22/11 Jessica Cortes MD [address] [address] Internal Medicine-Rheumatology 04/26/16 documented as of this encounter
--- OUTSIDE RECORDS SUMMARY | 2024-08-22 21:48 | XMS_ITS | Encounter Summary ---
Author Organization [facility] [address] Care Team Providers Care Manufacturing Engineering Intern Name Role Phone Julisa Kerr MD Primary Care Provider [phone] Jessica Cortes MD Unavailable [phone] Encounter Details Date Type Department Care Team (Latest Contact Info) Description 05/16/2020 Travel Social History Tobacco Use Types Packs/Day [...] have Coronavirus / COVID-19? No / Unsure 05/16/2020 3:08 PM EDT documented as of this [...] Info) Description 08/31/2024 8:30 AM EST Appointment [place] [address] [place] [address] 10/25/2024 10:45 AM EST Office Visit [facility] [address] [place] [address] Jessica Cortes MD [address] [facility] Building 19 [place] [address] 01/25/2025 9:00 AM EDT Appointment [address] [address] [place] [address] 05/09/2025 11:00 AM EDT Appointment [place] [address] [address] [place] [address] 05/09/2025 11:15 AM EDT Appointment [place] [address] [place] [address] Susana Garay MD [address] [place] [address] [address] [place] [id number] documented as of this encounter Goals Goal Patient Goal Type Associated Problems Recent Progress Patient-Stated? 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, RN documented as of this encounter Visit Diagnoses Not on filedocumented in this encounter Care Teams Manufacturing Engineering Intern Relationship Specialty Start Date End Date Julisa Kerr MD 100 [place] [address] PCP - General 02/22/11 Jessica Cortes MD [address] [place] [id number] Internal Medicine-Rheumatology 04/26/16 documented as of this encounter
--- OUTSIDE RECORDS SUMMARY | 2024-08-22 21:48 | XMS_ITS | Encounter Summary ---
Author Organization [facility] [place] [address] Care Team Providers Care Visiting Nurse Name Role Phone Julisa Kerr MD Primary Care Provider [phone] Jessica Cortes MD Unavailable [phone] Encounter Details Date Type Department Care Team (Latest Contact Info) Description 08/31/2020 Travel Social History Tobacco Use Types Packs/Day [...] Info) Description 08/31/2024 8:30 AM EST Appointment [place] [address] [place] [address] 10/25/2024 10:45 AM EST Office Visit [facility] R[facility] [address] [place] [address] Jessica Cortes MD [address] [facility] Building 19 [place] [address] 01/25/2025 9:00 AM EDT Appointment [place] [address] [place] [address] 05/09/2025 11:00 AM EDT Appointment [place] [address] [place] [address] 05/09/2025 11:15 AM EDT Appointment [place] [address] [address] [place] [address] Susana Garay MD [address] [place] [address] [address] [place] [id number] documented as of this encounter Goals Goal Patient Goal Type Associated Problems Recent Progress Patient-Stated? 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, RN documented as of this encounter Visit Diagnoses Not on filedocumented in this encounter Care Teams Visiting Nurse Relationship Specialty Start Date End Date Julisa Kerr MD 100 [place] [address] PCP - General 02/22/11 Jessica Cortes MD [address] [place] [id number] Internal Medicine-Rheumatology 04/26/16 documented as of this encounter
--- OUTSIDE RECORDS SUMMARY | 2024-08-22 21:48 | XMS_ITS | Encounter Summary ---
Author Organization [place] [address] Care Team Providers Care Steel Rule Inspector Name Role Phone Julisa Kerr MD Primary Care Provider [phone] Jessica Cortes MD Unavailable [phone] Reason for Referral * DEXA (Routine) - Closed Specialty Diagnoses / Procedures Referred By Contac t Referred To Contact Radiology Diagnoses Osteopenia of multiple sites Postmenopausal state Procedures DX BONE DENSITY AXIAL SKELETON Jessica Cortes MD 651 [place] [address] Phone: tel: fax: Referral ID Status Reason Start Date Expiration Date Visits Re quested Visits Authorized [id number] Closed 11/22/2020 11/22/2021 1 1 Reason for Visit * Reason Comments Follow-up 4 mth Rheumatoid Arthritis Osteopenia Raynaud's Syndrome Shoulder Pain LEFT Encounter Details Date Type Department Care Team (Latest Contact Info) Description 11/22/2020 1:00 PM EST Office Visit [facility] Rheumatology [facility] [address] [address] Jessica Cortes MD 651 [place] [address] Rheumatoid arthritis involving multiple sites with positive rheumatoid factor (HCC) (Primary Dx); Raynaud's phenomenon without gangrene; Positive BRET (antinuclear antibody); Sicca syndrome (HCC); Neck pain; Osteopenia of multiple sites; Trochanteric bursitis of right hip; Immunocompromised patient (HCC); Therapeutic drug monitoring; Acute pain of left shoulder; Postmenopausal state Social History Tobacco Use Types Packs/Day Years [...] Sign Reading Time Taken Comments Blood Pressure 148/86 11/22/2020 1:08 PM EST Pulse 107 11/22/2020 1:08 PM EST Temperature 36.1 ??C (97 ??F) 11/22/2020 1:08 PM EST Respiratory Rate 16 11/22/2020 1:08 PM EST Oxygen Saturation - - Inhaled Oxygen Concentration - - Weight 62.8 kg (138 lb 6.4 oz) 11/22/2020 1:08 P M EST Height 157.5 cm (5' 2 ) 11/22/2020 1:08 PM EST Body Mass Index 25.31 11/22/2020 1:08 PM EST documented in this encounter Functional [...] of Assessment Author No 11/22/2020 3:41 PM Albni Blake MA * Does this person have [...] End Date predniSONE (DELTASONE) 10 mg Oral TabletIndications :Rheumatoid arthritis involving multiple sites with positive rheumatoid factor (HCC),Acute pain of left shoulder Take 3 tablets daily x 5 days then 2 tablets daily x 5 days then 1 tablet daily x 5 days then stop. 30 Tab 11/22/2020 1 leflunomide (ARAVA) 10 mg Oral TabletIndications :Rheumatoid arthritis involving multiple sites with positive rheumatoid factor (HCC) Take 1 Tab by mouth daily. 30 Tab 11/22/2020 1 methotrexate sodium 25 mg/mL Inj SolutionIndicatio ns:Rheumatoid arthritis involving multiple sites with positive rheumatoid factor (HCC) SUBCUTANEOUS (INJECT UNDER THE SKIN) 0.6 ML EVERY 7 DAYS. 4 mL 11/22/2020 1 documented in this encounter Progress Notes * Jessica Cortes MD - 11/22/2020 1:00 PM EST Subjective Subjective: Patient ID: Yuliet Newsome is a 50 y.o. female. Chief Complaint Patient presents with ??? Follow-up 4 mth ??? Rheumatoid Arthritis ??? Osteopenia ??? Raynaud's Syndrome ??? Shoulder Pain LEFT HPI The patient comes in for follow up regarding RA. Symptoms started in 2002. Seen by Rasper Machine Operator, Dr. Astorga. She was seen in [facility] but have not seen her in [...] mild pain- 3/10, mild swelling. Feels worse. Off MTX since 06/2020 and off Arava in 06/2020 due to surgery but back on it for the last month. Fell on the concrete, dog knocked her down, fractured right elbow, needed surgery. Joint pain: hands, wrists, right elbow, right ankle, both shoulders, L>R, feet. Joint swelling: wrists, Hands, right ankle. Took prednisone last night, was miserable. Dry eyes realy bothersome. Uses eye drops. Dry mouth pretty bothersome. Pain on a scale 0-10: 8.5/10 Type of pain: ache Morning stiffness: up to 60 minutes. Raynaud's: worsened in the cold weather. Current therapy: MTX 15 mg weekly, off since 06/2020, Arava 10 mg daily ( started 05/2020), folic acid 1 mg daily, Previous therapy: [...] INTO THE MUSCLE EVERY MONTH 1 mL 2 ??? fluticasone (FLONASE) 50 mcg/actuation Nasl [place], Suspension 1 [place] by Nasal route daily. 1 Bottle 2 ??? folic acid (FOLVITE) 1 mg Oral Tablet TAKE 1 TABLET BY MOUTH EVERY DAY 30 Tab 2 ??? sertraline (ZOLOFT) 50 mg Oral Tablet [...] reviewed and are negative. Objective Objective: Vitals: 11/22/20 1308 BP: 148/86 Pulse: 107 Resp: 16 Temp: 97 ??F (36.1 ??C) TempSrc: Forehead Weight: 138 lb 6.4 oz (62.8 kg) Height: 5' 2 (1.575 m) Body mass index is 25.31 kg/m??. Physical Exam Constitutional: She is oriented [...] elbow decreased. ROM of the wrists decreased. Neurological: She is alert and oriented to person, place, and time. Muscle strength 5/5 upper and lower extremities. Skin: Skin is warm. No rash noted. Psychiatric: She has a normal mood and affect. Vitals reviewed. Rapid 3: 21.8 Lab Results Component Value Date WBC 10.2 [...] previously by Dr. Astorga in [facility]. Records from [facility] received and reviewed. The patient was seen in 05/11/13 for initial evaluation. Presented with polyarticular joint involvement- large and small joints- shoulders, elbows, knees, wrists, knuckles, toes. Per records she had low titer (+) RF, (-) CCP, (+) BRET centromere pattern > 8.0 with negative SSA/SSB, MACHINE TOOL OPERATOR, Scl 70, dsDNA Records indicate she [...] of the feet from 03/2016 were normal. Collin DA 20 - low disease activity, while [...] Restarted MTX 15 mg SQ weekly 10/2019. Off since 06/2020- overdue for labs Started Kevzara 200 mg q 2 weeks in 12/2019. Symptoms improved on Kevzara. Less tenderness, less synovitis in exam in 02/2020. Stopped Kevzara due to nausea around 03/2020 Added Arava 10 mg daily 05/2020, off for one month in 06/2020 due to surgery, restarted last month overdue for labs, appointmnet Severe flare today. Tenderness to both wrists, all of the MCP joints, 4th, 5tth right PIP, right ankle. Significant synovitis in the wrists, moderate in the left wrist, 1st- 5th MCP, 5th right PIP, 1st, 2nd, 5th left MCP, right ankle, both MTP areas. Discussed the importance of taking medications regularly and [...] Tablet; Take 1 Tab by mouth daily. - predniSONE (DELTASONE) 10 mg Oral Tablet; Take 3 tablets daily x 5 days then 2 tablets daily x 5 days then 1 tablet daily x 5 days then stop. Raynaud's phenomenon without gangrene Positive BRET (antinuclear [...] last DXA from 2016 Recent elbow fracture. Will recheck DXA - DX BONE DENSITY AXIAL SKELETON; Future Trochanteric bursitis of right hip No tenderness [...] toxicities. Overdue for labs, last lab work 04/2020. Check today and monitor closely while on MTX and Arava since both can cause hepatotoxicity and bone marrow toxicity. Acute pain of left shoulder Suspect it is related to RA flare Significantly decreased ROM, pain Prednisone taper. If no improvement she will come back for cortisol injection - predniSONE (DELTASONE) 10 mg Oral Tablet; Take 3 tablets daily x 5 days then 2 tablets daily x 5 days then 1 tablet daily x 5 days then stop. Return in about 3 months (around 02/19/2021). documented in this encounter Plan of Treatment Upcoming Encounters Date Type Department Care Team (Late st Contact Info) Description 08/31/2024 8:30 AM EST Appointment [place] [address] [place] [address] 10/25/2024 10:45 AM EST Office Visit [facility] [address] [place] [address] Jessica Cortes MD [address] [facility] Building 19 [place] [address] 01/25/2025 9:00 AM EDT Appointment [place] [address] [place] [address] 05/09/2025 11:00 AM EDT Appointment [place] [address] [address] [place] [address] 05/09/2025 11:15 AM EDT Appointment [address] [address] [place] [address] Susana Garay MD [address] [place] [address] [place] [address] Scheduled Orders Name Type Priority Associated Diagnoses Orde r Schedule DX BONE DENSITY AXIAL SKELETON Imaging Routine Osteopenia of multiple sites Postmenopausal state Expected: 11/22/2020, Expires: 11/23/2021 documented as of this encounter Goals Goal [...] monitoring Encounter for therapeutic drug monitoring Acute pain of left shoulder Postmenopausal state Asymptomatic postmenopausal status (age-related) (natural) documented in this encounter Discontinued Medications Medication Sig Discontinue Reason Start Date End Da te predniSONE (DELTASONE) 20 mg Oral TabletIndications:Rh eumatoid arthritis (HCC) Take by mouth. 3 tabs po daily for 3 days, then 2tabs po daily for 3 days, then 1 tab daily for 3 days. DELETE-Therapy completed 08/31/2020 11/22/2020 methotrexate sodium 25 mg/mL Inj SolutionIndications: Rheumatoid arthritis involving multiple sites with positive rheumatoid factor (HCC) SUBCUTANEOUS (INJECT UNDER THE SKIN) 0.6 ML EVERY 7 DAYS. Reorder 06/21/2020 11/22/2020 leflunomide (ARAVA) 10 mg Oral TabletIndications:Rh eumatoid arthritis involving multiple sites with positive rheumatoid factor (HCC) Take 1 Tab by mouth daily. Reorder 06/21/2020 11/22/2020 predniSONE (DELTASONE) 10 mg Oral Tablet Take 20 mg by mouth 2 times daily. Cancelled by 11/22/2020 documented as of this encounter Care Teams Steel Rule Inspector Relationship Specialty Start Date End Date Julisa Kerr MD [address] [place] [id number] PCP - General 02/22/11 Jessica Cortes MD [address] [address] Internal Medicine-Rheumatology 04/26/16 documented as of this encounter
--- OUTSIDE RECORDS SUMMARY | 2024-08-22 21:48 | XMS_ITS | Encounter Summary ---
Author Organization [place] [address] Care Team Providers Care Real Estate Accountant Name Role Phone Julisa Kerr MD Primary Care Provider [phone] Jessica Cortes MD Unavailable [phone] Encounter Details Date Type Department Care Team (Late st Contact Info) Description 12/07/2020 Abstract [facility]P [facility] [address] [place] [address] Marlene Melo, RN Social History Tobacco Use Types Packs/Day Years [...] 08/31/2024 8:30 AM EST Appointment [place] [address] [place] [address] 10/25/2024 10:45 AM EST Office Visit [facility] RHE[facility] [address] [place] [address] [address] [place] [address] Jessica Cortes MD [address] [place] [address] Building [address] [place] [address] 01/25/2025 9:00 AM EDT Appointment [place] [address] [place] [address] 05/09/2025 11:00 AM EDT Appointment [place] [address] [place] [address] 05/09/2025 11:15 AM EDT Appointment [place] [address] [place] [address] Susana Garay MD [address] [place] [address] [address] [place], [place] [id number] documented as of this encounter Goals Goal Patient Goal Type Associated Problems Recent Progress Patient-Stated? 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, RN documented as of this encounter Visit Diagnoses Not on filedocumented in this encounter Care Teams Real Estate Accountant Relationship Specialty Start Date End Date Julisa Kerr MD 100 [place] [address] PCP - General 02/22/11 Jessica Cortes MD [address] [address] Internal Medicine-Rheumatology 04/26/16 documented as of this encounter
--- OUTSIDE RECORDS SUMMARY | 2024-08-22 21:48 | XMS_ITS | Encounter Summary ---
Author Organization [place] [address] Care Team Providers Care Silo Worker Name Role Phone Julisa Kerr MD Primary Care Provider [phone] Jessica Cortes MD Unavailable [phone] Reason for Visit * Reason Onset Date Comments Medication Refill 05/16/2020 Encounter Details Date Type Department Care Team (Late st Contact Info) Description 05/16/2020 Telephone [facility] 100 [place] [address] Julisa Kerr MD 100 [place] [address] Medication Refill Social History Tobacco Use Types [...] Date folic acid (FOLVITE) 1 mg Oral Tablet Take 1 Tab by mouth daily. 30 Tab 2 05/16/2020 07/27/2020 documented in this encounter Miscellaneous Notes * Telephone Encounter - Julisa Kerr MD - 05/16/2020 5:20 PM EDT done * Telephone Encounter - Arash Joyce - 05/16/2020 2:14 PM EDT Pt has simple dose packaging and is requesting FOLIC ACID 1mg tablet to be included -- can we send that? documented in this encounter Plan of Treatment Upcoming Encounters Date Type Department Care Team (Late st Contact Info) Description 08/31/2024 8:30 AM EST Appointment [place] [address] [place] [address] 10/25/2024 10:45 AM EST Office Visit [facility] 6[address] [facility] [address] [place] [address] Jessica Cortes MD 651 [facility] 19 [place] [address] 01/25/2025 9:00 AM EDT Appointment [address] [place] [address] 05/09/2025 11:00 AM EDT [address]ointment [address] [place] [address] 05/09/2025 11:15 AM EDT Appointment [address] [place] [address] Susana Garay MD [address] [place], [place] [address] documented as of this encounter Goals Goal Patient Goal Type Associated Problems Recent Progress Patient-Stated? 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, RN documented as of this encounter Visit Diagnoses Not on filedocumented in this encounter Care Teams Silo Worker Relationship Specialty Start Date End Date Julisa Kerr MD 100 [place] [address] PCP - General 02/22/11 Jessica Cortes MD 651 [facility] 19 [place] [address] Internal Medicine-Rheumatology 04/26/16 documented as of this encounter
--- OUTSIDE RECORDS SUMMARY | 2024-08-22 21:48 | XMS_ITS | Encounter Summary ---
Author Organization [place] [address] Care Team Providers Care Cane Weigher Name Role Phone Julisa Kerr MD Primary Care Provider [phone] Jessica Cortes MD Unavailable [phone] Reason for Visit * Reason Comments Medication Refill Encounter Details Date Type Department Care Team (Late st Contact Info) Description 01/05/2021 Refill [facility] Rheumatology [facility] 651 [facility] Building [address] [place] [address] Jessica Cortes MD [address] [address] Medication Refill Social History Tobacco [...] 0.6 ML EVERY 7 DAYS. 4 mL 01/05/2021 documented in this encounter Miscellaneous Notes * Telephone Encounter - Aleyda Naranjo MA - 01/05/2021 9:10 AM EDT Last OV- 11/22/20 Next OV- 02/19/2021 Last BW- 11/22/2020 documented in this encounter Plan of Treatment Upcoming Encounters Date Type Department Care Team (Late st Contact Info) Description 08/31/2024 8:[address] [facility] [address] [place] [address] 10/25/2024 10:45 AM EST Office Visit [facility]AT[facility] 651 [facility] [address] [place] [address] Jessica Cortes MD 651 [facility] 19 [place] [address] 01/25/2025 9:00 AM EDT Appointment [address] [place] [address] 05/09/2025 11:00 AM EDT Appointment [address] [place] [address] 05/09/2025 11:15 AM EDT Appointment [address] [place] [address] Susana Garay MD [address] [place] [address] [place] [address] documented as of this encounter Goals Goal [...] THE SKIN) 0.6 ML EVERY 7 DAYS. 11/22/2020 01/05/2021 documented as of this encounter Care Teams Cane Weigher Relationship Specialty Start Date End Date Julisa Kerr MD 100 [place] [address] PCP - General 02/22/11 Jessica Cortes MD 651 [facility] 19 [place] [address] Internal Medicine-Rheumatology 04/26/16 documented as of this encounter
--- OUTSIDE RECORDS SUMMARY | 2024-08-22 21:48 | XMS_ITS | Encounter Summary ---
Author [place] [address] Care Team Providers Care Cathead Worker Name Role Phone Julisa Kerr MD Primary Care Provider [phone] Jessica Cortes MD Unavailable [phone] Reason for Visit * Reason Comments Medication Refill Encounter Details Date Type Department Care Team (Late st Contact Info) Description 07/12/2020 Refill SEP Rheumatology [facility] 651 [facility] Building [address] [place] [address] Jessica Cortes MD [address] [place] [id number] Medication Refill Social History Tobacco Use Types [...] Telephone Encounter - Aleyda Naranjo MA - 07/12/2020 11:12 AM EDT Last OV- 06/21/2020 Next OV- 08/22/2020 Last BW- 05/16/2020 Chart reviewed. Left VM, patient is due for labs before refill of methotrexate. documented in this encounter Plan of Treatment Upcoming Encounters Date Type Department Care Team (Late st Contact Info) Description 08/31/2024 8:30 AM EST Appointment [facility] [address] [place] [address] 10/25/2024 10:45 AM EST Office Visit [facility] R[facility]UMAT[facility] [address] [place] [address] Jessica Cortes MD [address] [facility] Building 19 [place] [address] 01/25/2025 9:00 AM EDT Appointment [place] [address] [place] [address] 05/09/2025 11:00 AM EDT Appointment [address] [place] [address] 05/09/2025 11:15 AM EDT Appointment [address] [place] [address] Susana Garay MD [address] [place] [address] [address] [place], [place] [id number] documented as of this encounter Goals Goal Patient Goal Type Associated Problems Recent Progress Patient-Stated? Author Maintain a healthy diet, exercise regularly and maintain an ideal body weight General Porsche Ashley, RN documented as of this encounter Visit Diagnoses Diagnosis Rheumatoid arthritis involving multiple sites with positive rheumatoid factor (HCC) documented in this encounter Care Teams Cathead Worker Relationship Specialty Start Date End Date Julisa Kerr MD 100 [place] [address] PCP - General 02/22/11 Jessica Cortes MD [address] [id number] Internal Medicine-Rheumatology 04/26/16 documented as of this encounter
--- OUTSIDE RECORDS SUMMARY | 2024-08-22 21:48 | XMS_ITS | Encounter Summary ---
Author [place] [address] Care Team Providers Care Cork Tipper Name Role Phone Julisa Kerr MD Primary Care Provider [phone] Jessica Cortes MD Unavailable [phone] Reason for Visit * Reason Onset Date Comments Medication Refill 06/19/2020 Encounter Details Date Type Department Care Team (Late st Contact Info) Description 06/19/2020 Refill SEP [facility] [address] [place] [phone] Julisa Kerr MD 100 [place] [address] Medication Refill Social History Tobacco Use Types [...] THE MUSCLE EVERY MONTH 1 mL 3 06/19/2020 10/30/2020 documented in this encounter Plan of Treatment Upcoming Encounters Date Type Department Care Team (Late st Contact Info) Description 08/31/2024 8:30 AM EST [address]ointment [address] [place] [address] 10/25/2024 10:45 AM EST Office Visit [facility] [address] [place] [address] Jessica Cortes MD [address] [facility] Building 19 [place] [address] 01/25/2025 9:00 AM EDT Appointment [address] [place] [address] 05/09/2025 11:00 AM EDT Appointment [place] [address] [place] [address] 05/09/2025 11:15 AM EDT Appointment [facility] [place] [address] [place] [address] Susana Garay MD [address] [place] [address] [place] [address] documented as of this encounter [...] 1ML INTO THE MUSCLE EVERY MONTH Reorder 03/14/2020 06/19/2020 documented as of this encounter Care Teams Cork Tipper Relationship Specialty Start Date End Date Julisa Kerr MD 100 [place], [place] [id number] PCP - General 02/22/11 Jessica Cortes MD [address] [address] Internal Medicine-Rheumatology 04/26/16 documented as of this encounter
--- OUTSIDE RECORDS SUMMARY | 2024-08-22 21:48 | XMS_ITS | Encounter Summary ---
Author Organization [place] [address] Care Team Providers Care Rn Clinical Appeals Name Role Phone Julisa Kerr MD Primary Care Provider [phone] Jessica Cortes MD Unavailable [phone] Reason for Visit * Reason Comments Medication Refill Encounter Details Date Type Department Care Team (Late st Contact Info) Description 02/02/2021 Refill SEP Rheumatology [facility] 651 [facility] Building [address] [place] [phone] Jessica Cortes MD [address] [address] Medication Refill Social History Tobacco [...] Telephone Encounter - Miya Haider MA - 02/02/2021 8:15 AM EDT Wendy; 11/22/20 Labs; 11/22/20 Nov; 02/19/21 Per chart review MTX last filled on 01/05/21 Please remember to recheck labs in 8 weeks. Patient is past due for lab Left detailed message on voice mail documented in this encounter Plan of Treatment Upcoming Encounters Date Type Department Care Team (Late st Contact Info) Description 08/31/2024 8:30 AM EST Appointment [facility] [address] [place] [address] 10/25/2024 10:45 AM EST Office Visit [facility] [address] [facility] [address] [place] [address] Jessica Cortes MD [address] [facility] Building 19 [place] [address] 01/25/2025 9:00 AM EDT Appointment [place] [address] [place] [address] 05/09/2025 11:00 AM EDT Appointment [address] [place] [address] 05/09/2025 11:15 AM EDT Appointment [address] [place] [address] Susana Garay MD [address] [place] [address] [address] [place], [place] [id number] documented as of this encounter Goals Goal Patient Goal Type Associated Problems Recent Progress Patient-Stated? 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, RN documented as of this encounter Visit Diagnoses Diagnosis Rheumatoid arthritis involving multiple sites with positive rheumatoid factor (HCC) documented in this encounter Care Teams Rn Clinical Appeals Relationship Specialty Start Date End Date Julisa Kerr MD 100 [place] [address] PCP - General 02/22/11 Jessica Cortes MD [address] [id number] Internal Medicine-Rheumatology 04/26/16 documented as of this encounter
--- OUTSIDE RECORDS SUMMARY | 2024-08-22 21:48 | XMS_ITS | Encounter Summary ---
Author Organization [place] [address] Care Team Providers Care Sheet Metal Worker Helper Name Role Phone Julisa Kerr MD Primary Care Provider [phone] Jessica Cortes MD Unavailable [phone] Reason for Visit * Reason Comments Medication Refill Encounter Details Date Type Department Care Team (Late st Contact Info) Description 12/17/2020 Refill SEP Rheumatology [facility] [address] [facility] Building [address] [place] [phone] Jessica Cortes MD [address] [address] Medication Refill Social History Tobacco [...] 3:41 PM EST Albin Levy MA documented as of this [...] TABLET BY MOUTH EVERY DAY 30 Tab 12/18/2020 02/12/2021 documented in this encounter Miscellaneous Notes * Telephone Encounter - Miya Haider MA - 12/18/2020 4:40 PM EDT Wendy; 11/22/20 Labs; 11/22/20 Nov; 02/19/21 documented in this encounter Plan of Treatment Upcoming Encounters Date Type Department Care Team (Late st Contact Info) Description 08/31/2024 8:30 AM EST Appointment [facility] [address] [place] [address] 10/25/2024 10:45 AM EST Office Visit [facility] [address] [facility] [address] [place] [phone] Jessica Cortes MD 651 [facility] Building 19 [place] [address] 01/25/2025 9:00 AM EDT Appointment [place] [address] [place] [address] 05/09/2025 11:00 AM EDT Appointment [address] [place] [address] 05/09/2025 11:15 AM EDT Appointment [address] [place] [address] Susana Garay MD [address] [place] [address] [place] [id number] documented as of this encounter Goals Goal [...] Da te leflunomide (ARAVA) 10 mg Oral TabletIndications:Rheumat oid arthritis involving multiple sites with positive rheumatoid factor (HCC) Take 1 Tab by mouth daily. 11/22/2020 12/18/2020 documented as of this encounter Care Teams Sheet Metal Worker Helper Relationship Specialty Start Date End Date Julisa Kerr MD 100 [place] [address] PCP - General 02/22/11 Jessica Cortes MD [address] [facility] [facility] Building [address] [place] [address] Internal Medicine-Rheumatology 04/26/16 documented as of this encounter
--- OUTSIDE RECORDS SUMMARY | 2024-08-22 21:48 | XMS_ITS | Encounter Summary ---
Author Organization [place] [address] Care Team Providers Care Bumboater Name Role Phone Julisa Kerr MD Primary Care Provider [phone] Jessica Cortes MD Unavailable [phone] Reason for Visit * Reason Comments Medication Refill Encounter Details Date Type Department Care Team (Late st Contact Info) Description 01/23/2021 Refill SEP [facility] 100 [place] [address] Julisa Kerr MD 100 [place] [address] Medication Refill Social History Tobacco Use Types [...] AT NIGHT 30 Tab 2 01/23/2021 04/19/2021 busPIRone (BUSPAR) 10 mg Oral TabletIndications: Anxiety TAKE 1 TAB BY MOUTH 2 TIMES DAILY NEEDED. 60 Tab 2 01/23/2021 04/19/2021 folic acid (FOLVITE) 1 mg Oral Tablet TAKE 1 TABLET BY MOUTH EVERY DAY 30 Tab 2 01/23/2021 04/19/2021 sertraline (ZOLOFT) 50 mg Oral TabletIndications: Reactive depression TAKE 1/2 TABLET BY MOUTH DAILY FOR 7 DAYS, THEN 1 TABLET BY MOUTH THEREAFTER. 30 Tab 8 01/23/2021 02/12/2022 documented in this encounter Miscellaneous Notes * Telephone Encounter - Ebony Stein CPhT - 01/23/2021 12:45 PM EDT amitriptyline - Medication Refill Protocol not available for this medication. Routed to office staff. busPIRone- Medication Refill Protocol not available for this medication. Routed to office staff. folic acid- Medication Refill Protocol not available for this medication. Routed to office staff. Sertraline- Medication refill request deferred to office staff. 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 documented in this encounter Plan of Treatment Upcoming Encounters Date Type Department Care Team (Late st Contact Info) Description 08/31/2024 8:30 AM EST Appointment [address] [place] [address] 10/25/2024 10:45 AM EST Office Visit [facility] [address] [place] [address] Jessica Cortes MD [address] [place] [address] 01/25/2025 9:00 AM EDT Appointment [address] [place] [address] 05/09/2025 11:00 AM EDT [address]ointment [address] [place] [address] 05/09/2025 11:15 AM EDT Appointment [address] [place] [address] Susana Garay MD [address] [place] [address] documented as of this encounter Goals Goal Patient Goal Type Associated Problems Recent Progress Patient-Stated? Author Maintain a healthy diet, exercise regularly and maintain an ideal body weight General Porsche Ashley, RN documented as of this encounter Visit Diagnoses Diagnosis Reactive depression Dysthymic disorder Anxiety Anxiety state, unspecified Insomnia, unspecified type documented in this encounter Discontinued Medications Medication Sig Discontinue Reason Start Date End Da te sertraline (ZOLOFT) 50 mg Oral TabletIndications:Reactiv e depression TAKE 1/2 TABLET BY MOUTH DAILY FOR 7 DAYS, THEN 1 TABLET BY MOUTH THEREAFTER. 03/10/2020 01/23/2021 folic acid (FOLVITE) 1 mg Oral Tablet TAKE 1 TABLET BY MOUTH EVERY DAY 10/30/2020 01/23/2021 busPIRone (BUSPAR) 10 mg Oral TabletIndications:Anxiety TAKE 1 TAB BY MOUTH 2 TIMES DAILY NEEDED. 10/30/2020 01/23/2021 amitriptyline (ELAVIL) 25 mg Oral TabletIndications:Insomni a, unspecified type TAKE 1 TABLET BY MOUTH EVERY DAY AT NIGHT 10/30/2020 01/23/2021 documented as of this encounter Care Teams Bumboater Relationship Specialty Start Date End Date Julisa Kerr MD 100 [place] [address] PCP - General 02/22/11 Jessica Cortes MD 651 [facility] Building [address] [place] [address] Internal Medicine-Rheumatology 04/26/16 documented as of this encounter
--- OUTSIDE RECORDS SUMMARY | 2024-08-22 21:48 | XMS_ITS | Encounter Summary ---
Author Organization [place] [address] Care Team Providers Care Rating Clerk Name Role Phone Julisa Kerr MD Primary Care Provider [phone] Jessica Cortes MD Unavailable [phone] Reason for Visit * Reason Comments Medication Refill Encounter Details Date Type Department Care Team (Late st Contact Info) Description 07/27/2020 Refill SEP [facility] 100 [place] [address] Julisa Kerr MD 100 [place] [address] Medication Refill Social History Tobacco Use Types [...] Author No 03/09/2020 1:02 PM EDT Albin Lvey MA * Because of a physical, mental [...] BY MOUTH EVERY DAY 30 Tab 2 07/27/2020 10/30/2020 amitriptyline (ELAVIL) 25 mg Oral TabletIndications: Insomnia, unspecified type TAKE 1 TABLET BY MOUTH EVERY DAY AT NIGHT 30 Tab 2 07/27/2020 10/30/2020 busPIRone (BUSPAR) 10 mg Oral TabletIndications: Anxiety TAKE 1 TAB BY MOUTH 2 TIMES DAILY NEEDED. 60 Tab 2 07/27/2020 10/30/2020 documented in this encounter Miscellaneous Notes * Telephone Encounter - Alisha Suggs CPhT - 07/27/2020 11:03 AM EDT Buspirone Medication Refill Protocol not available for this medication. Routed to office staff. Amitriptyline Medication Refill Protocol not available for this medication. Routed to office staff. Folic acid Medication Refill Protocol not available for this medication. Routed to office staff. documented in this encounter Plan of Treatment Upcoming Encounters Date Type Department Care Team (Late st Contact Info) Description 08/31/2024 8:30 AM EST Appointment [place] [address] [place] [address] 10/25/2024 10:45 AM EST Office Visit [facility] [address] [place] [address] Jessica Cortes MD [address] [facility] Building 19 [place] [address] 01/25/2025 9:00 AM EDT Appointment [place] [address] [place] [address] 05/09/2025 11:00 AM EDT Appointment [place] [address] [place] [address] 05/09/2025 11:15 AM EDT Appointment [place] [address] [place] [address] Susana Garay MD [address] [place] [address] [place] [address] documented as of this encounter Goals Goal [...] te busPIRone (BUSPAR) 10 mg Oral TabletIndications:Anxiety Take 1 Tab by mouth 2 times daily as needed. 03/10/2020 07/27/2020 amitriptyline (ELAVIL) 25 mg Oral TabletIndications:Insomni a, unspecified type Take 1 Tab by mouth nightly. 05/16/2020 07/27/2020 folic acid (FOLVITE) 1 mg Oral Tablet Take 1 Tab by mouth daily. 05/16/2020 07/27/2020 documented as of this encounter Care Teams Rating Clerk Relationship Specialty Start Date End Date Julisa Kerr MD 100 [place] [address] PCP - General 02/22/11 Jessica Cortes MD [address] [place] [phone] Internal Medicine-Rheumatology 04/26/16 documented as of this encounter
--- OUTSIDE RECORDS SUMMARY | 2024-08-22 21:48 | XMS_ITS | Encounter Summary ---
Author Organization [facility] [place] [place] [address] Care Team Providers Care Toppiece Cutter Name Role Phone Julisa Kerr MD Primary Care Provider [phone] Jessica Cortes MD Unavailable [phone] Encounter Details Date Type Department Care Team (Latest Contact Info) Description 11/22/2020 Travel Social History Tobacco Use Types Packs/Day [...] Info) Description 08/31/2024 8:30 AM EST Appointment [place] [address] [place] [address] 10/25/2024 10:45 AM EST Office Visit [facility] [address] [place] [address] Jessica Cortes MD [address] [facility] Building 19 [place] [address] 01/25/2025 9:00 AM EDT Appointment [place] [address] [place] [address] 05/09/2025 11:00 AM EDT Appointment [place] [address] [place] [address] 05/09/2025 11:15 AM EDT Appointment [place] [address] [place] [address] Susana Garay MD [address] [place] [address] [address] [place] [phone] documented as of this encounter Goals Goal Patient Goal Type Associated Problems Recent Progress Patient-Stated? 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, RN documented as of this encounter Visit Diagnoses Not on filedocumented in this encounter Care Teams Toppiece Cutter Relationship Specialty Start Date End Date Julisa Kerr MD 100 [place] [address] PCP - General 02/22/11 Jessica Cortes MD [address]51 [place] [phone] Internal Medicine-Rheumatology 04/26/16 documented as of this encounter
--- OUTSIDE RECORDS SUMMARY | 2024-08-22 21:48 | XMS_ITS | Encounter Summary ---
Author Organization [facility] [place] [address] Care Team Providers Care Sales Consultant Name Role Phone Julisa Kerr MD Primary Care Provider [phone] Jessica Cortes MD Unavailable [phone] Encounter Details Date Type Department Care Team (Latest Contact Info) Description 02/06/2021 Travel Social History Tobacco Use Types Packs/Day [...] Description 08/31/2024 8:30 AM EST [address]ointment [address] [address] 10/25/2024 10:45 AM EST Office Visit [facility] [address] [place] [address] Jessica Cortes MD [address] [facility] Building 19 [place] [address] 01/25/2025 9:00 AM EDT [address]ointment [address] [address] 05/09/2025 11:00 AM EDT [address]ointment [address] [address] 05/09/2025 11:15 AM EDT [address]ointment [address] [address] Susana Garay MD [address] [place] [address] [address] [place] [place] [phone] documented as of this encounter Goals Goal Patient Goal Type Associated Problems Recent Progress Patient-Stated? Author Maintain a healthy diet, exercise regularly and maintain an ideal body weight General Porsche Ashley, RN documented as of this encounter Visit Diagnoses Not on filedocumented in this encounter Care Teams Sales Consultant Relationship Specialty Start Date End Date Julisa Kerr MD [address] [place] [id number] PCP - General 02/22/11 Jessica Cortes MD [address] [place] [phone] Internal Medicine-Rheumatology 04/26/16 documented as of this encounter
--- OUTSIDE RECORDS SUMMARY | 2024-08-22 21:48 | XMS_ITS | Encounter Summary ---
Author Organization [place] [address] Care Team Providers Care Excelsior Picker Name Role Phone Julisa Kerr MD Primary Care Provider [phone] Jessica Cortes MD Unavailable [phone] Reason for Referral * Genetic Lab Test (Routine) - Closed Specialty Diagnoses / Procedures Referred By Anatoliy cole Referred To Contact Diagnoses Screening for colon cancer Procedures Julisa Livingston MD Phone: tel: fax: Referral ID Status Reason Start Date Expiration Date Visits Re quested Visits Authorized [id number] Closed 11/22/2020 11/22/2021 1 1 Reason for Visit * Reason Comments Annual Exam Arthritis wants shot Encounter Details Date Type Department Care Team (Late st Contact Info) Description 11/22/2020 3:45 PM EST Office Visit [facility] [address] [place] [address] Julisa Kerr MD [address] [place] [address] Annual physical exam (Primary Dx); Encounter for screening mammogram for breast cancer; Screening for colon cancer; Rheumatoid arthritis involving multiple sites with positive rheumatoid factor (HCC); Immunocompromised patient (HCC); Acute pain of right shoulder Social History Tobacco Use Types Packs/Day [...] Sign Reading Time Taken Comments Blood Pressure 102/70 11/22/2020 3:41 PM EST Pulse - - Temperature 36.2 ??C (97.1 ??F) 11/22/2020 3:41 PM ES T Respiratory Rate - - Oxygen Saturation - - Inhaled Oxygen Concentration - - Weight 62.6 kg (138 lb) 11/22/2020 3:41 PM EST Height 157.5 cm (5' 2 ) 11/22/2020 3:41 PM EST Body Mass Index 25.24 11/22/2020 3:41 PM EST documented in this encounter Functional [...] Progress Notes * Julisa Kerr MD - 11/22/2020 3:45 PM EST Vitals: 11/22/20 1541 BP: 102/70 Temp: 97.1 ??F (36.2 ??C) Weight: 138 lb (62.6 kg) Height: 5' 2 (1.575 m) SUBJECTIVE: Chief Complaint Patient presents with ??? Annual Exam ??? Arthritis wants shot HPI: Abstract This is a new problem. The current episode started today. The problem occurs constantly. The problem has been unchanged. Associated symptoms include arthralgias and joint swelling. Pertinent negatives include no abdominal pain, coughing, fatigue, fever, nausea or rash. Arthritis This is a chronic problem. The current episode started more than 1 year ago. The problem occurs constantly. The problem has been gradually worsening since onset. Pertinent negatives include no abdominal pain or fever. Pt is here today for annual exam and would like a shot for her arthritis Well Adult: Subjective Ms. Newsome is a 50 y.o. female here for an annual wellness visit. Diet: Good Exercise: Daily Activities of Daily Living: Functional Level: Self-care ADL Limitations: none Social Interaction Screen: Do you have concerns about issues that may impact social interaction such as developmental or behavioral/mental health conditions? no Health Maintenance Due Topic Date Due ??? Annual Wellness Exam 09/20/2020 ??? Colon Cancer Screening: Colonoscopy 2020 ??? Zoster (1 of 2) 2020 ??? Breast Cancer Screening 2020 Health Maintenance Topic Date Due ??? Annual Wellness Exam 09/20/2020 ??? Colon Cancer Screening: Colonoscopy 2020 ??? Zoster (1 of 2) 2020 ??? Breast Cancer Screening 2020 ??? Cervical Cancer Screening 12/24/2020 ??? Influenza Vaccine Completed Immunization History Administered Date(s) Administered ??? Influenza [...] 2 ??? fluticasone (FLONASE) 50 mcg/actuation Nasl Ney, Suspension 1 Ney by Nasal route daily. 1 Bottle 2 ??? folic acid (FOLVITE) 1 mg Oral Tablet TAKE 1 TABLET BY MOUTH EVERY DAY 30 Tab 2 ??? leflunomide (ARAVA) 10 mg Oral Tablet Take 1 Tab by mouth daily. 30 Tab 0 ??? methotrexate sodium 25 mg/mL Inj Solution SUBCUTANEOUS (INJECT UNDER THE SKIN) 0.6 ML EVERY 7 DAYS. 4 mL 0 ??? predniSONE (DELTASONE) 10 mg Oral Tablet Take 3 tablets daily x 5 days then 2 tablets daily x 5days then 1 tablet daily x 5 days then stop. 30 Tab 0 ??? sertraline (ZOLOFT) 50 mg Oral [...] HOURS NEEDED FOR WHEEZING 1 Inhaler 0 No current facility-administered medications on file [...] No results found for this visit on 11/22/20. Patient Care Team: Julisa Kerr MD as PCP - General Jessica Cortes MD (Internal Medicine-Rheumatology) Lab Results Component Value Date WBC 8.2 11/22/2020 HGB 14.0 11/22/2020 HCT 44.6 11/22/2020 PLT 352 11/22/2020 CHOLESTEROL 163 11/11/2018 TRIG 107 11/11/2018 HDL 49 11/11/2018 LDLCALC 93 11/11/2018 ALT 22 11/22/2020 AST 25 11/22/2020 NA 138 11/22/2020 K 3.9 11/22/2020 CL 103 11/22/2020 CREATININE 0.67 11/22/2020 BUN 8 11/22/2020 CO2 23 11/22/2020 TSH 1.350 09/20/2015 GLUCOSE 83 11/23/2019 GLU 150 (H) 11/22/2020 HGBA1C 5.4 12/23/2018 TSHREFLEX 1.530 07/01/2017 Additional issues addressed today: Review of Systems Constitutional: Negative for fatigue and fever. HENT: Negative. Respiratory: Negative for cough and wheezing. Cardiovascular: Negative. Gastrointestinal: Negative for abdominal pain, diarrhea and nausea. Genitourinary: Negative. Musculoskeletal: Positive for arthralgias, arthritis and joint swelling. Skin: Negative for rash. Neurological: Negative. Hematological: Negative. Psychiatric/Behavioral: Negative. OBJECTIVE: Physical Exam Vitals signs and nursing note reviewed. HENT: Head: Normocephalic. Right Ear: Tympanic membrane normal. Left Ear: Tympanic membrane normal. Cardiovascular: Rate and Rhythm: Normal rate. Heart sounds: No murmur. Pulmonary: Effort: Pulmonary effort is normal. Breath sounds: No wheezing. Abdominal: Palpations: Abdomen is soft. Tenderness: There is no abdominal tenderness. Musculoskeletal: General: Swelling, tenderness and signs of injury present. Skin: General: Skin is warm. Neurological: General: No focal deficit present. Mental Status: She is alert. Psychiatric: Mood and Affect: Mood normal. Assessment Diagnoses and all orders for this visit: Annual physical exam Encounter for screening mammogram for breast cancer - MM MAMMO DIGITAL SCREENING W CAD BILAT; Future Screening for colon cancer - COLOGUARD; Future Rheumatoid arthritis involving multiple sites with positive rheumatoid factor (HCC) Flared. Has prednisone from rheum called in. Immunocompromised patient (HCC) (Chronic) stable Acute pain of right shoulder - methylPREDNISolone acetate (DEPO-Medrol) injection 120 mg Above problems were discussed with patient and [...] Info) Description 08/31/2024 8:30 AM EST Appointment [facility] [address] [place] [address] 10/25/2024 10:45 AM EST Office Visit [facility] [address] [place] [address] Jessica Cortes MD [address]51 [facility] Building [address] [place] [address] 01/25/2025 9:00 AM EDT Appointment [place] [address] [place] [address] 05/09/2025 11:00 AM EDT Appointment [place] [address] [place] [address] 05/09/2025 11:15 AM EDT Appointment [place] [address] [place] [address] Susana Garay MD [address] [place] [address] [place] [address] documented as of this encounter Goals Goal Patient Goal Type Associated Problems Recent Progress Patient-Stated? 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 RN documented as of this encounter Procedures Procedure Name Priority Date/Time Associated Diagnosis Comments COLOGUARD Routine 11/27/2020 7:50 PM EST Screening for colon cancer documented in this encounter Results * COLOGUARD (11/27/2020 7:50 PM EST) COLOGUARD CLINICAL REPORT Negative Not Applicable [facility] Comment: A negative result indicates [...] (Davi Cox al, N Engl J Med 2014;370(14):7098-5543) The normal value (reference range) for this assay is negative. COLOGUARD RE-SCREENING RECOMMENDATION: Periodic routine colorectal cancer screening is an important part of preventive healthcare for asymptomatic persons at average risk for colorectal cancer. Following a negative Cologuard result, the [place] Cancer Society and U.S. Multi-Society Task Force screening guidelines recommend a Cologuard re-screening interval of 3 years. References: [place] Cancer Society (ACS). Colorectal cancer prevention and early detection. [place], [place]: [place] Cancer Society; [updated 2015Jan 20]. https://www.cancer.org/cancer/qsbxp-puhyxc-zcwgzb/phwgquvvq-dctqnalxh-rxcpphm/ac s-rec ommendations.html. Accessed May 29, 2018; Luis Antonio BLUM, Jerry HORN, Federico GreerK, Colorectal Cancer Screening: Recommendations for Physicians and Patients from the U.S. Multi-Society Task Force on Colorectal Cancer Screening, Am J Gastroenterology 2017; 112:4719-5789. TEST TYPE: Composite algorithmic analysis of stool [...] interval of every 3 years by the [place] Cancer Society and U.S. Multi-Society Task Force. [...] can be accessed at the following location: www.TheDigitel/results. Additional description of the Cologuard test process, warnings and precautions can be found at www.cologuardtest.com. Rx only. Stool specimen (specimen) 11/27/2020 7:50 PM EST 11/29/2020 2:22 PM EST us Julisa Kerr MD [employer] - ORDERABLES Fin al Result [facility] [address] [place] [address] [employer] [address] [place] [id number] documented in this encounter Visit Diagnoses Diagnosis Annual physical exam- Primary Routine general medical examination at a health care facility Encounter for screening mammogram for breast cancer Screening for colon cancer Special screening for malignant neoplasms, colon Rheumatoid arthritis involving multiple sites with positive rheumatoid factor (HCC) Immunocompromised patient (HCC) Unspecified immunity deficiency Acute pain of right shoulder documented in this encounter Administered Medications Inactive Administered Medications - up to 1 most recent administrations Medication Order MAR Action Action Date Dose Rate Site methylPREDNISolone acetate (DEPO-Medrol) injection 120 mg 120 mg, Intramuscular, ONCE, 1 dose, On Fri11/22/20 at 1615, Dx: 1. Acute pain of right shoulderIndications:Acu te pain of right shoulder Given 11/22/2020 4:20 PM EST 120 mg Left Upper Outer Quadrant documented in this encounter Discontinued Medications Medication Sig Discontinue Reason Start Date End Da te KEVZARA 200 mg/1.14 mL SubQ Pen InjectorIndications:Rh eumatoid arthritis involving multiple sites with positive rheumatoid factor (HCC) INJECT 1 PEN UNDER THE SKIN EVERY 2 WEEKS DELETE- Entered in Error 03/27/2020 11/22/2020 documented as of this encounter Care Teams Excelsior Picker Relationship Specialty Start Date End Date Julisa Kerr MD [address] [place] [address] PCP - General 02/22/11 Jessica Cortes MD [address]51 [facility] Building [address] [place] [address] Internal Medicine-Rheumatology 04/26/16 documented as of this encounter
--- OUTSIDE RECORDS SUMMARY | 2024-08-22 21:48 | XMS_ITS | Encounter Summary ---
Author Organization [place] [address] Care Team Providers Care Plate Straightener Name Role Phone Julisa Kerr MD Primary Care Provider [phone] Jessica Cortes MD Unavailable [phone] Encounter Details Date Type Department Care Team (Late st Contact Info) Description 08/31/2020 11:15 AM EST Telemedicine [facility] [address] [place] [address] Julisa Kerr MD [address] [place] [address] Rheumatoid arthritis (HCC) Social History Tobacco Use Types Packs/Day [...] of Assessment Author No 03/09/2020 1:02 PM EDAlbin Brennan MA * Does this [...] of Assessment Author No 03/09/2020 1:02 PM Albin Mncamara MA documented as of this encounter Mental Status * Because of a physical, mental or emotional condition, does this person have serious difficulty concentrating, remembering or making decisions? Answer Entry Date Author No 03/09/2020 1:02 PM Albin Mcnamara MA documented in this encounter Ordered Prescriptions Prescription Sig Dispense Quantity Refills Last Filled Start Date End Date predniSONE (DELTASONE) 20 mg Oral TabletIndications:R heumatoid arthritis (HCC) Take by mouth. 3 tabs po daily for 3 days, then 2tabs po daily for 3 days, then 1 tab daily for 3 days. 18 Tab 08/31/2020 11/22/2020 documented in this encounter Progress Notes * Julisa Kerr MD - 08/31/2020 11:15 AM EST Patient presented today for routine care follow-up through a video visit. Patient has reviewed the terms and conditions of service as part of the registration for today's visit. A video visit does not replace a [id number] exam and further services may be necessary. We are conducting her video visit in a private space and this video visit is being conducted in accordance with state telehealth/video visit regulations. HPI: Swollen hands and chest wall tenderness at the joints where the ribs attach no fever no chills. History of RA. 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 Is miserable with it. otc meds not helping. Steroids help when she gets this bad in the past. Review of Systems Constitutional: Negative for fatigue. HENT: Negative. Respiratory: Negative for cough and wheezing. Cardiovascular: Negative. Gastrointestinal: Negative for abdominal pain and constipation. Genitourinary: Negative. Musculoskeletal: Positive for arthralgias and joint swelling. [...] all orders for this visit: Rheumatoid arthritis (HCC) - predniSONE (DELTASONE) 20 mg Oral Tablet; Take by mouth. 3 tabs po daily for 3 days, then 2tabs po daily for 3 days, then 1 tab daily for 3 days. Dispense: 18 Tab; Refill: 0 documented in this encounter Plan of Treatment Upcoming Encounters Date Type Department Care Team (Late st Contact Info) Description 08/31/2024 8:30 AM EST Appointment [place] [address] [place] [address] 10/25/2024 10:45 AM EST Office Visit [facility] [address] [facility] [address] [place] [address] Jessica Cortes MD [address] [facility] Building [address] [place] [address] 01/25/2025 9:00 AM EDT Appointment [place] [address] [place] [address] 05/09/2025 11:00 AM EDT Appointment [facility] [address] [place] [address] 05/09/2025 11:15 AM EDT Appointment [facility] [address] [place] [address] Susana Garay MD [address] [place] [address] [place] [address] documented as of this encounter Goals Goal Patient Goal Type Associated Problems Recent Progress Patient-Stated? Author Maintain a healthy diet, exercise regularly and maintain an ideal body weight General Porsche Ashley RN documented as of this encounter Visit Diagnoses Diagnosis Rheumatoid arthritis (HCC) documented in this encounter Care Teams Plate Straightener Relationship Specialty Start Date End Date Julisa Kerr MD 100 [place] [address] PCP - General 02/22/11 Jessica Cortes MD [address] [address] Internal Medicine-Rheumatology 04/26/16 documented as of this encounter
--- OUTSIDE RECORDS SUMMARY | 2024-08-22 21:48 | XMS_ITS | Encounter Summary ---
Author Organization [place] [address] Care Team Providers Care Winch Operator Name Role Phone Julisa Kerr MD Primary Care Provider [phone] Jessica Cortes MD Unavailable [phone] Reason for Visit * Reason Onset Date Comments Epidemic Concern 09/12/2020 Encounter Details Date Type Department Care Team (Late st Contact Info) Description 09/12/2020 Telephone [facility] [address] [place] [address] Julisa Kerr MD [address] [place] [address] Epidemic Concern Social History Tobacco Use Types Packs/Day Years [...] encounter Miscellaneous Notes * Telephone Encounter - Della Tejeda RN,CDE - 09/12/2020 11:27 AM EST Patient called asking if she could go to the lab and have a COVID-19 antibody test completed. Instructed patient that she will need a MD order for any blood work. Verified with patient that she had an active MyChart. Encouraged patient to urilize the MyChart messaging to communicate with her PCP. Patient verbalized an understanding of the discussion. documented in this encounter Plan of Treatment Upcoming Encounters Date Type Department Care Team (Late st Contact Info) Description 08/31/2024 8:30 AM EST Appointment [address] [place] [address] 10/25/2024 10:45 AM EST Office Visit [facility] [address] [facility] [address] [place] [address] Jessica Cortes MD 651 [facility] 19 [place] [address] 01/25/2025 9:00 AM EDT Appointment [address] [place] [address] 05/09/2025 11:00 AM EDT Appointment [address] [place] [address] 05/09/2025 11:15 AM EDT Appointment [address] [place] [address] Susana Garay MD [address] [place], [place] [address] documented as of this encounter Goals Goal Patient Goal Type Associated Problems Recent Progress Patient-Stated? 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, RN documented as of this encounter Visit Diagnoses Not on filedocumented in this encounter Care Teams Winch Operator Relationship Specialty Start Date End Date Julisa Kerr MD 100 [place] [address] PCP - General 02/22/11 Jessica Cortes MD 651 [facility] 19 [place] [address] Internal Medicine-Rheumatology 04/26/16 documented as of this encounter
--- OUTSIDE RECORDS SUMMARY | 2024-08-22 21:48 | XMS_ITS | Encounter Summary ---
Author Organization [place] [address] Care Team Providers Care Community Resource Consultant Name Role Phone Julisa Kerr MD Primary Care Provider [phone] Jessica Cortes MD Unavailable [phone] Reason for Visit * Reason Comments Medication Refill Encounter Details Date Type Department Care Team (Late st Contact Info) Description 10/28/2020 Refill [facility] 100 [place] [address] Julisa Kerr MD 100 [place] [address] Medication Refill Social History Tobacco Use Types [...] BY MOUTH EVERY DAY 30 Tab 2 10/30/2020 01/23/2021 amitriptyline (ELAVIL) 25 mg Oral TabletIndications: Insomnia, unspecified type TAKE 1 TABLET BY MOUTH EVERY DAY AT NIGHT 30 Tab 2 10/30/2020 01/23/2021 busPIRone (BUSPAR) 10 mg Oral TabletIndications: Anxiety TAKE 1 TAB BY MOUTH 2 TIMES DAILY NEEDED. 60 Tab 2 10/30/2020 01/23/2021 cyanocobalamin 1,000 mcg/mL Inj Solution INJECT 1ML INTO THE MUSCLE EVERY MONTH 1 mL 2 10/30/2020 02/15/2021 documented in this encounter Plan of Treatment Upcoming Encounters Date Type Department Care Team (Late st Contact Info) Description 08/31/2024 8:30 AM EST Appointment [facility] [address] [place] [address] 10/25/2024 10:45 AM EST Office Visit [facility] [address] [facility] [address] [place] [address] Jessica Cortes MD 651 [facility] Building [address] [place], [place] [address] 01/25/2025 9:00 AM EDT Appointment [place] [address] [place] [address] 05/09/2025 11:00 AM EDT Appointment [place] [address] [place] [address] 05/09/2025 11:15 AM EDT Appointment [place] [address] [place] [address] Susana Garay MD [address] [place] [address] [place], [place] [id number] documented as of this encounter Goals Goal Patient Goal Type Associated Problems Recent Progress Patient-Stated? Author Maintain a healthy diet, exercise regularly and maintain an ideal body weight General Porsche Ahsley, RN documented as of this encounter Visit Diagnoses Diagnosis Anxiety Anxiety state, unspecified Insomnia, unspecified type documented in this encounter Discontinued Medications Medication Sig Discontinue Reason Start Date End Da te cyanocobalamin 1,000 mcg/mL Inj Solution INJECT 1ML INTO THE MUSCLE EVERY MONTH 06/19/2020 10/30/2020 busPIRone (BUSPAR) 10 mg Oral TabletIndications:Anxiety TAKE 1 TAB BY MOUTH 2 TIMES DAILY NEEDED. 07/27/2020 10/30/2020 amitriptyline (ELAVIL) 25 mg Oral TabletIndications:Insomni a, unspecified type TAKE 1 TABLET BY MOUTH EVERY DAY AT NIGHT 07/27/2020 10/30/2020 folic acid (FOLVITE) 1 mg Oral Tablet TAKE 1 TABLET BY MOUTH EVERY DAY 07/27/2020 10/30/2020 documented as of this encounter Care Teams Community Resource Consultant Relationship Specialty Start Date End Date Julisa Kerr MD [address] [place] [address] PCP - General 02/22/11 Jessica Cortes MD 651 [facility] Building [address] [place] [address] Internal Medicine-Rheumatology 04/26/16 documented as of this encounter
--- OUTSIDE RECORDS SUMMARY | 2024-08-22 21:48 | XMS_ITS | Encounter Summary ---
Author Organization [facility] [place] [address] Care Team Providers Care Advanced Registered Nurse Name Role Phone Julisa Kerr MD Primary Care Provider [phone] Jessica Cortes MD Unavailable [phone] Encounter Details Date Type Department Care Team (Latest Contact Info) Description 08/30/2020 Travel Social History Tobacco Use Types Packs/Day [...] Info) Description 08/31/2024 8:30 AM EST Appointment [place] [address] [place] [address] 10/25/2024 10:45 AM EST Office Visit [facility] [address] [place] [address] Jessica Cortes MD [address] [facility] Building [address] [place] [address] 01/25/2025 9:00 AM EDT Appointment [place] [address] [place] [address] 05/09/2025 11:00 AM EDT Appointment [place] [address] [place] [address] 05/09/2025 11:15 AM EDT Appointment [place] [address] [address] [address] Susana Garay MD [address] [place] [address] [address] [place] [id number] documented as of this encounter Goals Goal Patient Goal Type Associated Problems Recent Progress Patient-Stated? 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, RN documented as of this encounter Visit Diagnoses Not on filedocumented in this encounter Care Teams Advanced Registered Nurse Relationship Specialty Start Date End Date Julisa Kerr MD 100 [place] [address] PCP - General 02/22/11 Jessica Cortes MD [address] [place] [id number] Internal Medicine-Rheumatology 04/26/16 documented as of this encounter
--- OUTSIDE RECORDS SUMMARY | 2024-08-22 21:48 | XMS_ITS | Encounter Summary ---
Author Organization [place] [address] Care Team Providers Care Mender Knit Goods Name Role Phone Julisa Kerr MD Primary Care Provider [phone] Jessica Cortes MD Unavailable [phone] Encounter Details Date Type Department Care Team (Latest Contact Info) Description 02/06/2021 12:45 PM EDT - 02/06/2021 11:59 PM EDT Hospital Encounter [facility] [address] [place] [address] Rheumatoid arthritis involving multiple sites with positive rheumatoid factor (HCC); Raynaud's phenomenon without gangrene; Therapeutic drug monitoring Discharge Disposition: Home or [...] EVERY MONTH 1 mL 2 10/30/2020 02/15/2021 folic acid (FOLVITE) 1 mg Oral Tablet TAKE 1 TABLET BY MOUTH EVERY DAY 30 Tab 2 01/23/2021 04/19/2021 leflunomide (ARAVA) 10 mg Oral TabletIndications: Rheumatoid arthritis involving multiple sites with positive rheumatoid factor (HCC) TAKE 1 TABLET BY MOUTH EVERY DAY 30 Tab 12/18/2020 02/12/2021 documented as of this encounter Discharge Disposition Disposition Code Departure Means Destination Home or Self Care documented in this encounter Plan of Treatment Upcoming Encounters Date Type Department Care Team (Late st Contact Info) Description 08/31/2024 8:30 AM EST Appointment [facility] [place] [address] [place] [address] 10/25/2024 10:45 AM EST Office Visit [facility] [address] [place] [address] Jessica Cortes MD [address] [place] [address] 01/25/2025 9:00 AM EDT Appointment [place] [address] [place] [address] 05/09/2025 11:00 AM EDT Appointment [place] [address] [address] [place] [address] 05/09/2025 11:15 AM EDT Appointment [place] [address] [address] [place] [address] Susana Garay MD [address] [place] [address] [place] [address] documented as of this encounter Goals Goal Patient Goal Type Associated Problems Recent Progress Patient-Stated? 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 RN documented as of this encounter Procedures Procedure Name Priority Date/Time Associated Diagnosis Comments CBC Routine 02/06/2021 12:46 PM EDT Rheumatoid arthritis involving multiple sites with positive rheumatoid factor (HCC) Raynaud's phenomenon without gangrene Therapeutic drug monitoring SEDIMENTATION RATE AUTOMATED Routine 02/06/2021 12:46 PM EDT Rheumatoid arthritis involving multiple sites with positive rheumatoid factor (HCC) Raynaud's phenomenon without gangrene Therapeutic drug monitoring C-REACTIVE PROTEIN Routine 02/06/2021 12 :46 PM EDT Rheumatoid arthritis involving multiple sites with positive rheumatoid factor (HCC) Raynaud's phenomenon without gangrene Therapeutic drug monitoring COMPREHENSIVE METABOLIC PANEL Routine 02/06/2021 12:46 PM EDT Rheumatoid arthritis involving multiple sites with positive rheumatoid factor (HCC) Raynaud's phenomenon without gangrene Therapeutic drug monitoring documented in this encounter Results * (ABNORMAL) C-REACTIVE PROTEIN (02/06/2021 12:46 PM EDT) Pathologist [facility] CRP 10.85(H) <=5.00 mg/L 02/06/2021 9:31 PM EDT [facility] Blood VENOUS BLOOD / Unknown Venipuncture / Unknown 02/06/2021 12:46 PM EDT 02/06/2021 12:46 PM EDT Jessica Cortes MD CHEMISTRY ORDERABLES Siobhan l Result Performing Organization Address City/[facility]/ZIP Co de Phone Number [facility] [address] [place] [address], [place] [address] * SEDIMENTATION RATE AUTOMATED (02/06/2021 12:46 PM EDT) [facility] Sed Rate 17 0 - 30 mm/hr 02/06/2021 8:38 PM EDT [facility] Blood VENOUS BLOOD / Unknown Venipuncture / Unknown 02/06/2021 12:46 PM EDT 02/06/2021 12:46 PM EDT Jessica Cortes MD HEMATOLOGY ORDERABLES Fin al Result Performing Organization Address City/[facility]/ZIP Co de Phone Number [facility] [address] [place] [phone] * (ABNORMAL) COMPREHENSIVE METABOLIC PANEL (02/06/2021 12:46 PM EDT) [facility] Sodium 139 136 - 145 mmol/L 02/06/2021 9:31 PM EDT [facility] Potassium 3.9 3.5 - 5.0 mmol/L 02/06/2021 9:31 PM EDT [facility] Chloride 103 98 - 107 mmol/L 02/06/2021 9:31 PM EDT [facility] Total CO2 27 22 - 29 mmol/L 02/06/2021 9:31 PM EDT [facility] Anion Gap 9 7 - 16 mmol/L 02/06/2021 9:31 PM EDT [facility] Calcium 9.6 8.6 - 10.4 mg/dL 02/06/2021 9:31 PM EDT [facility] Glucose Lvl 106(H) 74 - 100 mg/dL 02/06/2021 9:31 PM EDT [facility] BUN 8 6 - 20 mg/dL 02/06/2021 9:31 PM EDT [facility] Creatinine 0.77 0.51 - 1.30 mg/dL 02/06/2021 9:31 PM EDT [facility] Albumin 4.1 3.5 - 5.2 gm/dL 02/06/2021 9:31 PM EDT [facility] Total Protein 7.1 6.4 - 8.3 gm/dL 02/06/2021 9:31 PM EDT [facility] Bili Total 0.3 0.1 - 1.3 mg/dL 02/06/2021 9:31 PM EDT [facility] ALT 9 <=41 U/L 02/06/2021 9:31 PM EDT [facility] AST 15 <=40 U/L 02/06/2021 9:31 PM EDT [facility] Alk Phos 120 36 - 123 U/L 02/06/2021 9:31 PM EDT [facility] GFR Afr Am 104 >=60 mL/min/1.7 3 m2 02/06/2021 9:31 PM EDT [facility] GFR Non Afr Am 90 >=60 mL/min/1.7 3 m2 02/06/2021 9:31 PM EDT [facility] Comment: This estimated GFR was calculated [...] VENOUS BLOOD / Unknown Venipuncture / Unknown 02/06/2021 12:46 PM EDT 02/06/2021 12:46 PM EDT us Jessica Cortes MD CHEMISTRY ORDERABLES Siobhan finnegan Result [facility] [address] [facility] [place] [address] [facility] [address] [place] [address] * CBC (02/06/2021 12:46 PM EDT) [facility] WBC 9.4 3.7 - 10.3 x10(3)/mcL 02/06/2021 8:25 PM EDT [facility] RBC 4.82 3.90 - 5.20 x10(6)/mcL 02/06/2021 8:25 PM EDT [facility] Hgb 14.1 11.2 - 15.7 g/dL 02/06/2021 8:25 PM EDT [facility] Hct 43.4 34.0 - 45.0 % 02/06/2021 8:25 PM EDT [facility] MCV 90.0 80.0 - 100.0 fL 02/06/2021 8:25 PM EDT [facility] MCH 29.3 26.0 - 34.0 pg 02/06/2021 8:25 PM EDT [facility] MCHC 32.5 30.7 - 35.5 g/dL 02/06/2021 8:25 PM EDT [facility] RDW 13.9 <=14.9 % 02/06/2021 8:25 PM EDT [facility] Platelet 314 155 - 369 x10(3)/mcL 02/06/2021 8:25 PM EDT [facility] MPV 11.4 8.8 - 12.5 fL 02/06/2021 8:25 PM EDT [facility] Blood VENOUS BLOOD / Unknown Venipuncture / Unknown 02/06/2021 12:46 PM EDT 02/06/2021 12:46 PM EDT Jessica Cortes MD HEMATOLOGY ORDERABLES Fin al Result [facility] [address] [facility] , [address] [place] [id number] documented in this encounter Visit Diagnoses Diagnosis Rheumatoid arthritis involving multiple sites with positive rheumatoid factor (HCC) Raynaud's phenomenon without gangrene Therapeutic drug monitoring Encounter for therapeutic drug monitoring documented in this encounter Care Teams Mender Knit Goods Relationship Specialty Start Date End Date Julisa Kerr MD [address] [place] [address] PCP - General 02/22/11 Jessica Cortes MD [address] [facility] [address] [place] [address] Internal Medicine-Rheumatology 04/26/16 documented as of this encounter
--- OUTSIDE RECORDS SUMMARY | 2024-08-22 21:48 | XMS_ITS | Encounter Summary ---
Author Organization [facility] [place] [address] Care Team Providers Care Structural Fitter Name Role Phone Julisa Kerr MD Primary Care Provider [phone] Jessica Cortes MD Unavailable [phone] Encounter Details Date Type Department Care Team (Latest Contact Info) Description 08/22/2020 Travel Social History Tobacco Use Types Packs/Day [...] have Coronavirus / COVID-19? No / Unsure 08/22/2020 10:13 AM EST documented as of this encounter [...] Info) Description 08/31/2024 8:30 AM EST Appointment [place] [address] [place] [address] 10/25/2024 10:45 AM EST Office Visit [facility] [address] [place] [address] Jessica Cortes MD [address] [facility] [address] [place] [address] 01/25/2025 9:00 AM EDT Appointment [place] [address] [place] [address] 05/09/2025 11:00 AM EDT Appointment [place] [address] [place] [address] 05/09/2025 11:15 AM EDT Appointment [place] [address] [place] [address] Susana Garay MD [address] [place] [address] [address] [place] [id number] documented as of this encounter Goals Goal Patient Goal Type Associated Problems Recent Progress Patient-Stated? 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, RN documented as of this encounter Visit Diagnoses Not on filedocumented in this encounter Care Teams Structural Fitter Relationship Specialty Start Date End Date Julisa Kerr MD [address] [place] [address] PCP - General 02/22/11 Jessica Cortes MD [address] [place] [id number] Internal Medicine-Rheumatology 04/26/16 documented as of this encounter
--- OUTSIDE RECORDS SUMMARY | 2024-08-22 21:48 | XMS_ITS | Encounter Summary ---
Author Organization [place] [address] Care Team Providers Care Mapper Name Role Phone Julisa Kerr MD Primary Care Provider [phone] Jessica Cortes MD Unavailable [phone] Reason for Visit * Reason Comments Medication Refill Encounter Details Date Type Department Care Team (Late st Contact Info) Description 10/17/2020 Refill [facility] [address] [place] [address] Julisa Kerr MD [address] [place] [address] Medication Refill Social History Tobacco Use Types [...] End Date valACYclovir (VALTREX) 1 gram Oral TabletIndications:H erpes labialis TAKE 2 TABS BY MOUTH 2 TIMES DAILY FOR 2 DAYS. PER FLARE OF COLD SORE 12 Tab 1 10/18/2020 05/31/2022 documented in this encounter Plan of Treatment Upcoming Encounters Date Type Department Care Team (Late st Contact Info) Description 08/31/2024 8:30 AM EST Appointment [place] [address] [place] [address] 10/25/2024 10:45 AM EST Office Visit [facility] [address] [facility] [address] [place] [address] Jessica Cortes MD [address] [facility] [address] [place] [address] 01/25/2025 9:00 AM EDT Appointment [place] [address] [place] [address] 05/09/2025 11:00 AM EDT Appointment [facility] [address] [address] 05/09/2025 11:15 AM EDT Appointment [facility] [address] [place] [address] Susana Garay MD [address] [facility] [address] [place] [id number] documented as of this encounter Goals Goal [...] 1 gram Oral TabletIndications:Herpes labialis Take 2 Tabs by mouth 2 times daily for 2 days. Per flare of cold sore 10/22/2019 10/18/2020 documented as of this encounter Care Teams Mapper Relationship Specialty Start Date End Date Julisa Kerr MD [address] [place] [address] PCP - General 02/22/11 Jessica Cortes MD [address] [id number] Internal Medicine-Rheumatology 04/26/16 documented as of this encounter
--- OUTSIDE RECORDS SUMMARY | 2024-08-22 21:48 | XMS_ITS | Encounter Summary ---
Author Organization [facility] [place] [address] Care Team Providers Care Surgical Aides Teacher Name Role Phone Julisa Kerr MD Primary Care Provider [phone] Jessica Cortes MD Unavailable [phone] Encounter Details Date Type Department Care Team (Latest Contact Info) Description 11/20/2020 Travel Social History Tobacco Use Types Packs/Day [...] have Coronavirus / COVID-19? No / Unsure 11/20/2020 2:51 PM EST documented as of this encounter Functional Status * Is the person deaf or does he/she have serious difficulty hearing? Answer Date of Assessment Author No 03/09/2020 1:02 PM EDT Albin Levy MA * Is the person blind or does he/she have serious difficulty seeing even when wearing glasses? Answer Date of Assessment Author No 03/09/2020 1:02 PM EDT Albin Leyv MA * Does this person have serious [...] Info) Description 08/31/2024 8:30 AM EST Appointment [place] [address] [place] [address] 10/25/2024 10:45 AM EST Office Visit [facility] [address] [place] [address] Jessica Cortes MD [address] [facility] [address] [place] [address] 01/25/2025 9:00 AM EDT Appointment [place] [address] [place] [address] 05/09/2025 11:00 AM EDT Appointment [place] [address] [place] [address] 05/09/2025 11:15 AM EDT Appointment [place] [address] [place] [address] Susana Garay MD [address] [place] [address] [address] [place] [id number] documented as of this encounter Goals Goal Patient Goal Type Associated Problems Recent Progress Patient-Stated? Author Maintain a healthy diet, exercise regularly and maintain an ideal body weight General Porsche Ashley, RN documented as of this encounter Visit Diagnoses Not on filedocumented in this encounter Care Teams Surgical Aides Teacher Relationship Specialty Start Date End Date Julisa Kerr MD [address] [place] [address] PCP - General 02/22/11 Jessica Cortes MD 6[address] [facility] [address] [place] [phone] Internal Medicine-Rheumatology 04/26/16 documented as of this encounter
--- OUTSIDE RECORDS SUMMARY | 2024-08-22 21:48 | XMS_ITS | Encounter Summary ---
Author Organization [facility] [place] [address] Care Team Providers Care Tank Farm Attendant Name Role Phone Julisa Kerr MD Primary Care Provider [phone] Jessica Cortes MD Unavailable [phone] Encounter Details Date Type Department Care Team (Latest Contact Info) Description 06/21/2020 Travel Social History Tobacco Use Types Packs/Day [...] Description 08/31/2024 8:30 AM EST Appointment [address] [place] [address] 10/25/2024 10:45 AM EST Office Visit [facility] [address] [place] [address] Jessica Cortes MD [address] [place] [address] 01/25/2025 9:00 AM EDT [address]ointment [address] [place] [address] 05/09/2025 11:00 AM EDT [address]ointment [address] [place] [address] 05/09/2025 11:15 AM EDT Appointment [address] [place] [address] Susana Garay MD [address] [place] [address] [place] [address] documented as of this encounter Goals Goal Patient Goal Type Associated Problems Recent Progress Patient-Stated? 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 RN documented as of this encounter Visit Diagnoses Not on filedocumented in this encounter Care Teams Tank Farm Attendant Relationship Specialty Start Date End Date Julisa Kerr MD [address] [place] [id number] PCP - General 02/22/11 Jessica Cortes MD [address] [place] [phone] Internal Medicine-Rheumatology 04/26/16 documented as of this encounter
--- OUTSIDE RECORDS SUMMARY | 2024-08-22 21:48 | XMS_ITS | Encounter Summary ---
Author Organization [place] [address] Care Team Providers Care Calender Wind Up Tender Name Role Phone Julisa Kerr MD Primary Care Provider [phone] Jessica Cortes MD Unavailable [phone] Encounter Details Date Type Department Care Team (Latest Contact Info) Description 05/16/2020 3:10 PM EDT - 05/16/2020 11:59 PM EDT Hospital Encounter [facility] [address] [id number] Rheumatoid arthritis involving multiple sites with positive rheumatoid factor (HCC) Discharge Disposition: Home or Self Care [...] No 03/09/2020 1:02 PM EDAlbin Brennan MA documented as of this encounter Mental Status * Because of a physical, mental or emotional condition, does this person have serious difficulty concentrating, remembering or making decisions? Answer Entry Date Author No 03/09/2020 1:02 PM EDT Albin Levy MA documented in this encounter Medications at Time of Discharge amitriptyline (ELAVIL) 25 mg Oral TabletIndications: Insomnia, unspecified type Take 1 Tab by mouth nightly. 30 Tab 2 05/16/2020 07/27/2020 busPIRone (BUSPAR) 10 mg Oral TabletIndications: Anxiety Take 1 Tab by mouth 2 times daily as needed. 60 Tab 2 03/10/2020 07/27/2020 folic acid (FOLVITE) 1 mg Oral Tablet Take 1 Tab by mouth daily. 30 Tab 2 05/16/2020 07/27/2020 sertraline (ZOLOFT) 50 mg Oral TabletIndications: Reactive depression TAKE 1/2 TABLET BY MOUTH DAILY FOR 7 DAYS, THEN 1 TABLET BY MOUTH THEREAFTER. 90 Tab 2 03/10/2020 01/23/2021 valACYclovir (VALTREX) 1 gram Oral TabletIndications: Herpes labialis Take 2 Tabs by mouth 2 times daily for 2 days. Per flare of cold sore 12 Tab 1 10/22/2019 10/18/2020 documented as of this encounter Discharge Disposition Disposition Code Departure Means Destination Home or Self Care documented in this encounter Plan of Treatment Upcoming Encounters Date Type Department Care Team (Late st Contact Info) Description 08/31/2024 8:30 AM EST Appointment [facility] [address] [address] [place] [address] 10/25/2024 10:45 AM EST Office Visit [facility] [address] [place] [address] Jessica Cortes MD [address] [place] [address] 01/25/2025 9:00 AM EDT Appointment [address] [address] [place] [address] 05/09/2025 11:00 AM EDT Appointment [address] [address] [place] [address] 05/09/2025 11:15 AM EDT Appointment [address] [address] [place] [address] Susana Garay MD [address] [place] [address] [place] [address] documented as of this encounter Goals Goal Patient Goal Type Associated Problems Recent Progress Patient-Stated? 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 RN documented as of this encounter Procedures Procedure Name Priority Date/Time Associated Diagnosis Comments SEDIMENTATION RATE AUTOMATED Routine 05/16/2020 3:09 PM EDT Rheumatoid arthritis involving multiple sites with positive rheumatoid factor (HCC) CBC WITH DIFF Routine 05/16/2020 3:09 PM EDT Rheumatoid arthritis involving multiple sites with positive rheumatoid factor (HCC) C-REACTIVE PROTEIN Routine 05/16/2020 3: 09 PM EDT Rheumatoid arthritis involving multiple sites with positive rheumatoid factor (HCC) COMPREHENSIVE METABOLIC PANEL Routine 05/16/2020 3:09 PM EDT Rheumatoid arthritis involving multiple sites with positive rheumatoid factor (HCC) documented in this encounter Results * COMPREHENSIVE METABOLIC PANEL (05/16/2020 3:09 PM EDT) Sodium 138 136 - 145 mmol/L 05/16/2020 7:25 PM EDT [facility] Potassium 4.1 3.5 - 5.0 mmol/L 05/16/2020 7:25 PM EDT [facility] Chloride 102 98 - 107 mmol/L 05/16/2020 7:25 PM EDT [facility] Total CO2 26 22 - 29 mmol/L 05/16/2020 7:25 PM EDT [facility] Anion Gap 10 7 - 16 mmol/L 05/16/2020 7:25 PM EDT [facility] Calcium 9.5 8.6 - 10.4 mg/dL 05/16/2020 7:25 PM EDT [facility] Glucose Lvl 86 74 - 100 mg/dL 05/16/2020 7:25 PM EDT [facility] BUN 7 6 - 20 mg/dL 05/16/2020 7:25 PM EDT [facility] Creatinine 0.75 0.51 - 1.30 mg/dL 05/16/2020 7:25 PM EDT [facility] Albumin 4.5 3.5 - 5.2 gm/dL 05/16/2020 7:25 PM EDT [facility] Total Protein 7.0 6.4 - 8.3 gm/dL 05/16/2020 7:25 PM EDT [facility] Bili Total 0.3 0.1 - 1.3 mg/dL 05/16/2020 7:25 PM EDT [facility] ALT 7 <=41 U/L 05/16/2020 7:25 PM EDT [facility] AST 16 <=40 U/L 05/16/2020 7:25 PM EDT [facility] Alk Phos 101 36 - 123 U/L 05/16/2020 7:25 PM EDT [facility] GFR Afr Am 108 >=60 mL/min/1.7 3 m2 05/16/2020 7:25 PM EDT [facility] GFR Non Afr Am 94 >=60 mL/min/1.7 3 m2 05/16/2020 7:25 PM EDT [facility] Comment: This estimated GFR was [...] or muscle mass. Blood Venipuncture / Unknown 05/16/2020 3:09 PM EDT 05/16/2020 3:09 PM EDT us Jessica Cortes MD CHEMISTRY ORDERABLES Siobhan finnegan Result [facility] [place] [address] [facility] , [place] [address] [facility] [address] [place] [address] * (ABNORMAL) CBC WITH DIFF (05/16/2020 3:09 PM EDT) WBC 10.2 3.7 - 10.3 x10(3)/mcL 05/16/2020 7:08 PM EDT [facility] RBC 4.64 3.90 - 5.20 x10(6)/mcL 05/16/2020 7:08 PM EDT [facility] Hgb 13.7 11.2 - 15.7 g/dL 05/16/2020 7:08 PM EDT [facility] Hct 42.5 34.0 - 45.0 % 05/16/2020 7:08 PM EDT [facility] MCV 91.6 80.0 - 100.0 fL 05/16/2020 7:08 PM EDT [facility] MCH 29.5 26.0 - 34.0 pg 05/16/2020 7:08 PM EDT [facility] MCHC 32.2 30.7 - 35.5 g/dL 05/16/2020 7:08 PM EDT [facility] RDW 13.1 <=14.9 % 05/16/2020 7:08 PM EDT [facility] Platelet 339 155 - 369 x10(3)/mcL 05/16/2020 7:08 PM EDT [facility] MPV 11.5 8.8 - 12.5 fL 05/16/2020 7:08 PM EDT [facility] Neut Percent 57.1 % 05/16/2020 7:08 PM EDT [facility] Comment:Neutrophils equals s egs plus bands Imm Gran% 0.4 % 05/16/2020 7:08 PM EDT [facility] Comment:Automated count of m etamyelocytes, myelocytes and promyelocytes. Lymph Percent 27.5 % 05/16/2020 7:08 PM EDT [facility] Meriwether Percent 10.9 % 05/16/2020 7:08 PM EDT [facility] Eos Percent 3.3 % 05/16/2020 7:08 PM EDT [facility] Baso Percent 0.8 % 05/16/2020 7:08 PM EDT [facility] Neut # 5.8 1.6 - 6.1 x10(3)/mcL 05/16/2020 7:08 PM EDT [facility] Comment:Neutrophils equals s egs plus bands IMMGRAN# 0.0 0.0 - 0.1 x10(3)/mcL 05/16/2020 7:08 PM EDT [facility] Comment:Automated count of m etamyelocytes, myelocytes and promyelocytes. An absolute IG <0.1 is reported as 0.0. Lymph # 2.8 1.2 - 3.9 x10(3)/mcL 05/16/2020 7:08 PM EDT [facility] Meriwether # 1.1(H) 0.3 - 0.9 x10(3)/mcL 05/16/2020 7:08 PM EDT [facility] Eos# 0.3 0.0 - 0.5 x10(3)/mcL 05/16/2020 7:08 PM EDT [facility] Baso # 0.1 0.0 - 0.1 x10(3)/mcL 05/16/2020 7:08 PM EDT [facility] Blood Venipuncture / Unknown 05/16/2020 3:09 PM EDT 05/16/2020 3:09 PM EDT us Jessica Cortes MD HEMATOLOGY ORDERABLES Fin al Result Performing Organization Address [facility] Co de Phone Number [facility] [employer] [facility] [address] , [place] [address] * (ABNORMAL) C-REACTIVE PROTEIN (05/16/2020 3:09 PM EDT) CRP 11.86(H) <=5.00 mg/L 05/16/2020 7:25 PM EDT [facility] Blood Venipuncture / Unknown 05/16/2020 3:09 PM EDT 05/16/2020 3:09 PM EDT us Jessica Cortes MD CHEMISTRY ORDERABLES Siobhan l Result Performing Organization Address [facility] Co de Phone Number [employer] [facility] [address] , [place] [address] * (ABNORMAL) SEDIMENTATION RATE AUTOMATED (05/16/2020 3:09 PM EDT) Sed Rate 25(H) 0 - 20 mm/hr 05/16/2020 7:38 PM EDT [facility] Blood Venipuncture / Unknown 05/16/2020 3:09 PM EDT 05/16/2020 3:09 PM EDT us Jessica Cortes MD HEMATOLOGY ORDERABLES Fin al Result Performing Organization Address [facility] Co de Phone Number [employer] [facility] [address] , [place] [address] documented in this encounter Visit Diagnoses Diagnosis Rheumatoid arthritis involving multiple sites with positive rheumatoid factor (HCC) documented in this encounter Care Teams Calender Wind Up Tender Relationship Specialty Start Date End Date Julisa Kerr MD [address] [place] [address] PCP - General 02/22/11 Jessica Cortes MD [address] [address] Internal Medicine-Rheumatology 04/26/16 documented as of this encounter
--- OUTSIDE RECORDS SUMMARY | 2024-08-22 21:49 | XMS_ITS | Encounter Summary ---
Author Organization [place] [address] Care Team Providers Care Paper Rewinder Name Role Phone Julisa Kerr MD Primary Care Provider [phone] Jessica Cortes MD Unavailable [phone] Reason for Visit * Reason Comments Medication Refill Encounter Details Date Type Department Care Team (Late st Contact Info) Description 11/25/2019 Refill [facility] [address] [place] [address] Julisa Kerr MD [address] [place] [address] Medication Refill Social History Tobacco Use Types Packs/Day Years Used Date Smoking Tobacco: Never Smokeless Tobacco: Never Alcohol Use Standard Drinks/Week Comments Yes 0 (1 standard drink = 0.6 oz pur e alcohol) occasional PHQ-2 Answer Date Recorded PHQ-2 Score 0 02/19/2019 Sexually Active Control Partners Comments Yes Comments No Sex and Gender Information Value Date Recorded Sex Assigned at Not on file Legal Sex Female 5:21 PM EDT Gender Identity Not on file Sexual Orientation Not on file documented as of this encounter Functional Status * Is the person deaf or does he/she have serious difficulty hearing? Answer Date of Assessment Author No 10/01/2018 2:11 PM Gina Parada RMA * Is the person blind or does he/she have serious difficulty seeing even when wearing glasses? Answer Date of Assessment Author No 10/01/2018 2:11 PM Sol Paradacharly Henderson JARROD * Does this person have serious difficulty walking or climbing stairs? Answer Date of Assessment Author No 10/01/2018 2:11 PM Gina Parada Beatriz JARROD * Does this person have difficulty dressing or bathing? Answer Date of Assessment Author No 10/01/2018 2:11 PM Sol Paradacharly Henderson JARROD * Because of a physical, mental or emotional condition, does this person have difficulty doing errands alone such as visiting a doctor's office or shopping? Answer Date of Assessment Author No 10/01/2018 2:11 PM Sol Paradacharly Henderson JARROD documented as of this encounter Mental Status * Because of a physical, mental or emotional condition, does this person have serious difficulty concentrating, remembering or making decisions? Answer Entry Date Author No 10/01/2018 2:11 PM Sol Paradacharly Henderson JARROD documented in this encounter Ordered Prescriptions Prescription Sig Dispense Quantity Refills Last Filled Start Date End Date cyanocobalamin 1,000 mcg/mL Inj Solution INJECT 1ML INTO THE MUSCLE EVERY MONTH 1 mL 3 11/25/2019 03/14/2020 documented in this encounter Plan of Treatment Upcoming Encounters Date Type Department Care Team (Late st Contact Info) Description 08/31/2024 8:30 AM EST Appointment [address] [place] [address] 10/25/2024 10:45 AM EST Office Visit [facility] [address] [place] [address] Jessica Cortes MD [address] [facility] [address] [place] [address] 01/25/2025 9:00 AM EDT [address]ointment [address] [place] [address] 05/09/2025 11:00 AM EDT [address]ointment [address] [place] [address] 05/09/2025 11:15 AM EDT Appointment [facility] [address] [place] [address] Susana Garay MD [address] [place] [address] [place] [address] documented as of [...] INJECT 1ML INTO THE MUSCLE EVERY MONTH 08/13/2019 11/25/2019 documented as of this encounter Care Teams Paper Rewinder Relationship Specialty Start Date End Date Julisa Kerr MD [address] [place] [address] PCP - General 02/22/11 Jessica Cortes MD [address] [facility] [address] [place] [address] Internal Medicine-Rheumatology 04/26/16 documented as of this encounter
--- OUTSIDE RECORDS SUMMARY | 2024-08-22 21:49 | XMS_ITS | Encounter Summary ---
Author Organization [place] [address] Care Team Providers Care Three Dimensional Map Modeler Name Role Phone Julisa Kerr MD Primary Care Provider [phone] Jessica Cortes MD Unavailable [phone] Reason for Visit * Reason Comments Pharmacy Rheumatology Management (Nette CHANDRA) Encounter Details Date Type Department Care Team (Latest Contact Info) Description 11/22/2019 Specialty Pharmacy [facility] [address] [facility] [address] [place] [address] Juan Luis Lyn, PharmD Pharmacy Rheumatology Management ((Nette CHANDRA)) Social History Tobacco Use Types Packs/Day Years [...] Beatriz JARROD * Does this person have serious difficulty walking or climbing stairs? Answer Date of Assessment Author No 10/01/2018 2:11 PM Gina Parada Beatriz JARROD * Does this person have difficulty dressing or bathing? Answer Date of Assessment Author No 10/01/2018 2:11 PM Gina Parada BeatrizJARROD * Because of a physical, mental or emotional condition, does this person have difficulty doing errands alone such as visiting a doctor's office or shopping? Answer Date of Assessment Author No 10/01/2018 2:11 PM Gina Parada BeatrizJARROD documented as of this encounter Mental Status * Because of a physical, mental or emotional condition, does this person have serious difficulty concentrating, remembering or making decisions? Answer Entry Date Author No 10/01/2018 2:11 PM Gina Parada Beatriz JARROD documented in this encounter Ordered Prescriptions Prescription Sig Dispense Quantity Refills Last Filled Start Date End Date sarilumab (KEVZARA) 200 mg/1.14 mL SubQ Pen InjectorIndication s:Rheumatoid arthritis involving multiple sites with positive rheumatoid factor (HCC) Inject 1 syringe under the skin every 14 days. 2.28 mL 2 12/22/2019 0 documented in this encounter Progress Notes * Juan Luis Lyn RPH - 11/22/2019 4:55 PM EST [facility] Prescription received via 2-step process for Cimzia Starter Kit. Prescription requires prior authorization. Submitted PA via covermymeds. Will follow up on 11/23/19. [facility] Stark: [id number] No answer, left voicemail to call [phone]. * Priti Valentine CPhT - 11/22/2019 4:55 PM EST [facility] Patient called back and is aware of prescription status. Told her we would call with any updates. * Juan Luis Lyn [facility] - 11/22/2019 4:55 PM EST [facility] Prescription received via 2-step process for Cimzia on 11/22/19. Prescription requires prior authorization. Original PA was archived without determination. Resubmitted PA to via covermymeds. Stark: [id number]. Will follow up on 12/21/19. * Jacey Miller CPhT - 11/22/2019 4:55 PM EST [facility] Received faxed PA denial for Cimzia due to preferring Kevzara first. . Please see attachment for more details. Will route to clinical pharmacist to determine next steps. Insurance prefers Kevzara. * Lida Aragon [facility] - 11/22/2019 4:55 PM EST [facility] Contraindications to Sarilumab (Kevzara) - IL-6 inhibitor for patients with moderate-severe RA: ??? Absolute neutrophil count (ANC) less than 2000 per mm3 ? ? Platelet count < 150,000 per mm3 ??? Contraception ??? ALT or AST above 1.5 times the upper limit of normal (ULN) Precautions: GI concerns As no contraindication found to using this IL-6 inhibitor for this patient, could consider using Kevzara. Will route to provider to see preference from a disease activity perspective. * Jessica Cortes MD - 11/22/2019 4:55 PM EST Please let the patient know Kevzara is preferable and start PA. * Lida Aragon [facility] - 11/22/2019 4:55 PM EST Rheumatology [facility] New order has been pended. Will call patient to inform. 12/22/2019@9:44 AM: No answer, left voicemail to call [phone] 12/22/2019@2:21 PM: No answer. documented in this encounter Miscellaneous Notes * Addendum Note - Lida Aragon RP - 11/22/2019 4:55 PM ESTAddended by: LIDA ARAGON on: 12/22/2019 09:45 AM Modules accepted: Orders * Addendum Note - Mel Michaels RMA - 11/22/2019 4:55 PM ESTAddended by: MEL MICHAELS on: 12/22/2019 03:11 PM Modules accepted: Orders documented in this encounter Plan of Treatment Upcoming Encounters Date Type Department Care Team (Late st Contact Info) Description 08/31/2024 8:30 AM EST Appointment [address] [address] [place] [address] 10/25/2024 10:45 AM EST Office Visit [facility] [address] [facility] [address] [place] [address] Jessica Cortes MD [address] [facility] [address] [place] [address] 01/25/2025 9:00 AM EDT Appointment [address] [address] [place] [address] 05/09/2025 11:00 AM EDT Appointment [address] [address] [place] [address] 05/09/2025 11:15 AM EDT Appointment [facility] [place] [address] Susana Garay MD [address] [place] [address] [place] [address] documented as of this encounter Goals Goal Patient Goal Type Associated Problems Recent Progress Patient-Stated? Author Maintain a healthy diet, exercise regularly and maintain an ideal body weight General Porsche Ashley RN documented as of this encounter Visit Diagnoses Diagnosis 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 documented in this encounter Care Teams Three Dimensional Map Modeler Relationship Specialty Start Date End Date Julisa Kerr MD [address] [place], [place] [id number] PCP - General 02/22/11 Jessica Cortes MD [address] [address] Internal Medicine-Rheumatology 04/26/16 documented as of this encounter
--- OUTSIDE RECORDS SUMMARY | 2024-08-22 21:49 | XMS_ITS | Encounter Summary ---
Author Organization [place] [address] Care Team Providers Care Keyboard Instrument Repairer Name Role Phone Julisa Kerr MD Primary Care Provider [phone] Jessica Cortes MD Unavailable Reason for Visit * Reason Comments Follow-up [facility] Rheumatoid Arthritis Raynaud's Syndrome Osteopenia * Consultation (Routine) - Closed Specialty Diagnoses / Procedures Referred By Contac t Referred To Contact Internal Medicine-Rheumatology / Rheumatology Diagnoses RA (rheumatoid arthritis) (HCC) F/u 10 wk RA Procedures FOLLOW UP Julisa Kerr MD Phone: tel: fax: Jessica Cortes MD [address] [address] Phone: tel: fax: Referral ID Status Reason Start Date Expiration Date Visits Re quested Visits Authorized [id number] Closed 01/22/2019 01/22/2020 99 [phone] Encounter Details Date Type Department Care Team (Latest Contact Info) Description 11/22/2019 3:45 PM EST Office Visit [facility] Rheumatology [facility] [address] [address] Jessica Cortes MD [address] [address] Rheumatoid arthritis involving multiple sites with positive rheumatoid factor (HCC) (Primary Dx); Raynaud's phenomenon without gangrene; Positive BRET (antinuclear antibody); Sicca syndrome (HCC); Neck pain; Osteopenia of multiple sites; Trochanteric bursitis of right hip; Immunocompromised patient (HCC); Therapeutic drug monitoring; Tuberculosis [...] Sign Reading Time Taken Comments Blood Pressure 114/82 11/22/2019 4:01 PM EST Pulse 105 11/22/2019 4:01 PM EST Temperature - - Respiratory Rate 16 11/22/2019 4:01 PM EST Oxygen Saturation - - Inhaled Oxygen Concentration - - Weight 60.8 kg (134 lb) 11/22/2019 4:01 PM EST Height 157.5 cm (5' 2 ) 11/22/2019 4:01 PM EST Body Mass Index 24.51 11/22/2019 4:01 PM EST documented in this encounter Functional Status * Is the person deaf or does he/she have serious difficulty hearing? Answer Date of Assessment Author No 10/01/2018 2:11 PM EST Gina Carranza RMA * Is the person blind or does he/she have serious difficulty seeing even when wearing glasses? Answer Date of Assessment Author No 10/01/2018 2:11 PM EST Gina Carranza RMA * Does this person have serious difficulty walking or climbing stairs? Answer Date of Assessment Author No 10/01/2018 2:11 PM EST Gina Carranza RMA * Does this person have difficulty dressing or bathing? Answer Date of Assessment Author No 10/01/2018 2:11 PM EST Gina Carranza RMA * Because of a physical, mental or emotional condition, does this person have difficulty doing errands alone such as visiting a doctor's office or shopping? Answer Date of Assessment Author No 10/01/2018 2:11 PM Gina Parada RMA documented as of this encounter Mental Status * Because of a physical, mental or emotional condition, does this person have serious difficulty concentrating, remembering or making decisions? Answer Entry Date Author No 10/01/2018 2:11 PM Gina Parada RMA documented in this encounter Ordered Prescriptions Prescription Sig Dispense Quantity Refills Last Filled Start Date End Date certolizumab Pegol (CIMZIA STARTER KIT) 400 mg/2 mL (200 mg/mL x 2) SubQ Syringe KitIndications:Rh eumatoid arthritis involving multiple sites with positive rheumatoid factor (HCC) Subcutaneous (Inject under the skin) 1 Kit every 14 days for 3 doses. 3 Kit 11/22/2019 0 certolizumab pegoL (CIMZIA) 400 mg (200 mg x 2 vials) SubQ KitIndications:Rh eumatoid arthritis involving multiple sites with positive rheumatoid factor (HCC) Subcutaneous (Inject under the skin) 1 Kit every 28 days. 1 Kit 2 11/22/2019 0 documented in this encounter Progress Notes * Jessica Cortes MD - 11/22/2019 3:45 PM EST Subjective Subjective: Patient ID: Yuliet Newsome is a 49 y.o. female. Chief Complaint Patient presents with ??? Follow-up [facility] ??? Rheumatoid Arthritis ??? Raynaud's Syndrome ??? Osteopenia HPI The patient comes in for follow up regarding RA. Symptoms started in 2002. Seen by [facility], Dr. Astorga. She was seen in [facility] but have not seen her in [...] has mild pain- 3/10, mild swelling. Started Xeljanz 11 mg daily after the last visit 03/03/19. Took it for about 2 months. It caused itching, swelling of the lips and numbness, tingling int he face. She discontinued it. Has not liam seen since. Stopped MTX 08/2019 due to GI upset. Worsening pain. Right hand swells a lot, swelling in the knuckles bilaterally, both wrists, more onthe right. Shoulders, knees hurt. Knees swell as well. Dry eyes realy bothersome. Uses eye drops. Dry mouth pretty bothersome. Activities aggravate symptoms. Pain on a scale 0-10: 8/10 Type of pain: ache Morning stiffness: up to 60 minutes. Raynaud's: worsened in the cold weather. Current therapy: none Previous therapy: Tylenol, Codeine, Darvocet, Motrin, Naproxen, Celebrex, Lodine did not help, MTX helped some, Enbrel 50 mg sq q week (since 2012- till 01/2018)- ineffective, Humira- rash, Remicade- ineffective, Orencia 125 mg SQ weekly- started 04/2018, d/c'ed 10/2018, Actemra started 12/2018, stopped 01/2019- caused mouth sores and blisters on the upper arms, Xeljanz caused swelling of the lips, itching Patients past medical, family and social histories were reviewed and updated. There were no changesexcept as noted. has cirrhosis of the liver and it is failing. 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 Past Medical History: Diagnosis Date ??? Arthritis Past Surgical History: Procedure Laterality Date ??? HYSTEROSCOPY ??? BARBIE AND BSO 2000 Allergies Allergen Reactions ??? Orencia [Abatacept (With [...] MOUTH 2 TIMES DAILY NEEDED. 60 Tab 0 ??? cyanocobalamin 1,000 mcg/mL Inj Solution INJECT 1ML INTO THE MUSCLE EVERY MONTH 1 mL 3 ??? fluticasone (FLONASE) 50 mcg/actuation Nasl [place], Suspension 1 [place] by Nasal route daily. 1 Bottle 2 ??? sertraline (ZOLOFT) 50 mg Oral Tablet Take 1/2 tablet by mouth daily for 7 days, then 1 tablet by mouth thereafter. 30 Tab 2 ??? VENTOLIN HFA 90 mcg/actuation [place] HFA [...] gain HENT: Positive for congestion. Dry mouth Gastrointestinal: GERD Genitourinary: Positive for difficulty urinating. Musculoskeletal: Positive for arthralgias, back pain, joint swelling, myalgias and neck pain. Neurological: Positive for headaches. Hematological: Bruises/bleeds easily. Psychiatric/Behavioral: Positive for sleep disturbance. The patient is nervous/anxious. Depression All other systems reviewed and are negative. Objective Objective: Vitals: 11/22/19 1601 BP: 114/82 Pulse: 105 Resp: 16 Weight: 134 lb (60.8 kg) Height: 5' 2 (1.575 m) Body mass index is 24.51 kg/m??. Physical Exam Constitutional: She is oriented to person, place, and time. She appears well- developed and well-nourished. HENT: Head: Normocephalic and atraumatic. Eyes: Pupils are equal, round, and reactive to light. Conjunctivae are normal. Neck: Normal range of motion. Musculoskeletal: Comments: Tenderness to the trapezius muscles, spional processes of the cervical and lumbar spine and paraspinals in the lumbar area. Crepitus in the right shoulder. Tenderness to both wrists, all ofthe MCP joints bilaterally, 5th right PIP, 2nd left PIP. Synovitis in the wrists, significant in the right wrist, moderate in the left wrist, 2nd, 3nd, 5th right MCP, 5th right PIP,1st left MCP, 3rd left PIP. ROM of the knees, ankles intact, no effusion. ROM of the wrists decreased. Mild tendernessto the right trochanteric bursa. Neurological: She is alert and oriented to person, place, and time. Muscle strength 5/5 upper and lower extremities. Skin: Skin is warm. No rash noted. Psychiatric: She has a normal mood and affect. Vitals reviewed. Rapid 3: 17.3 Lab Results Component Value Date WBC 8.1 03/03/2019 HGB 14.0 03/03/2019 HCT 43.5 03/03/2019 MCV 89.3 03/03/2019 PLT 264 03/03/2019 Chemistry Component Value Date/Time NA 131 (L) 03/03/2019 1649 NA 140 07/01/2017 1532 K 3.7 03/03/2019 1649 K 3.9 07/01/2017 1532 CL 101 03/03/2019 1649 CL 102 07/01/2017 1532 CO2 24 03/03/2019 1649 CO2 22 07/01/2017 1532 BUN 8 03/03/2019 1649 BUN 11 07/01/2017 1532 CREATININE 0.75 03/03/2019 1649 CREATININE 0.78 07/01/2017 1532 GLU 94 03/03/2019 1649 GLU 103 (H) 07/01/2017 1532 Component Value Date/Time CALCIUM 9.8 03/03/2019 1649 CALCIUM 9.3 07/01/2017 1532 ALKPHOS 81 03/03/2019 1649 ALKPHOS 98 07/01/2017 1532 AST 18 03/03/2019 1649 AST 16 07/01/2017 1532 ALT 16 03/03/2019 1649 ALT 16 07/01/2017 1532 Lab Results Component Value Date CRP <0.30 03/03/2019 Lab Results Component Value Date SEDRATE 4 03/03/2019 Assessment and Plan: Yuliet was seen today for follow-up, rheumatoid arthritis, raynaud's syndrome and osteopenia. Diagnoses and all orders for this visit: Rheumatoid arthritis involving multiple sites, with positive rheumatoid factor (HCC) Dx in [address] Astorga in [facility]. Records from [facility] received and reviewed. The patient was seen in 05/11/13 for initial evaluation. Presented with polyarticular joint involvement- large and small joints- shoulders, elbows, knees, wrists, knuckles, toes. Per records she had low titer (+) RF, negative CCP, (+) BRET centromere pattern > 8.0 with negative SSA/SSB, [employer], Scl 70, dsDNA Records indicate she used [...] CCP Recurrent flares of joint pain, swelling. Periodic synovitis in the wrists and 2nd, 3rd MCP on right as well as 1st MCP on left, 2nd, 3rd right PIP. MTX started 15 mg in 2012, changed [...] Actemra changed to Xeljanz 11 mg daily at the last visit 02/2019. Xeljanz caused swelling of the lips, tingling of the face, itching Off therapy for the few months. Off MTX since 08/2019, off Xeljanz since 04/2019. Has not been seen since 03/03/2019 due to her 's illness. Significant flare, significant right wrist deformity Synovitis in the wrists, significant in the right wrist, moderate in the left wrist, 2nd, 3nd, 5th right MCP, 5th right PIP,1st left MCP, 3rd left PIP. Advised to restart MTX 15 mg SQ weekly and we will slowly increase based on ow she tolerated it. Will add Cimzia 400 mg At 0,2,4 weeks, then 200 mg every 2 weeks. Risks of therapy discussed with the patient including injection site reactions, susceptibility to infections, reactivation of Tuberculosis and Histoplasmosis, bone marrow toxicity, possible risk of cancers, mainly skin cancers including melanoma and lymphomas. Written information provided. PPD negative in 04/2018. Check TB gold. Hepatitis panel negative. Patient should hold therapy while being treated for infections. Patient should not receive live vaccines while on therapy. - certolizumab pegoL (CIMZIA) 400 mg (200 mg x 2 vials) SubQ Kit; Subcutaneous (Inject under the skin) 1 Kit every 28 days. - certolizumab Pegol (CIMZIA STARTER KIT) 400 mg/2 mL (200 mg/mL x 2) SubQ Syringe Kit; Subcutaneous (Inject under the skin) 1 Kit every 14 days for 3 doses. - SEDIMENTATION RATE AUTOMATED; Standing - C-REACTIVE PROTEIN; Standing - CBC WITH DIFF; Standing - COMPREHENSIVE METABOLIC PANEL; Standing Raynaud's phenomenon without gangrene Positive BRET (antinuclear [...] neural canal stenosis. PT worsened the symptoms She will be evaluated by ortho for injections Regular stretches, heat, [...] No tenderness to the right trochanteric bursa x rays of the hip reveals mild symmetrical joint space narrowing in both hips Trochanteric bursa exercises discussed, info given again Topical OTC creams Possible cortisol injections in the future. Immunocompromised patient (HCC) Due to immunosuppression Prevnar 13 given 12/13/16 Pneumovax 23 given 03/17/17 Therapeutic drug monitoring PPD negative 05/26/18. Get TB gold Labs nowy and every 6-8 weeks while on MTX and Cimzia Tuberculosis screening - QUANTIFERON TB GOLD; Future Return in about 2 months (around 01/21/2020). documented in this encounter Miscellaneous Notes * Patient Instructions - Jessica Cortes MD - 11/22/2019 3:45 PM EST Images from the original note were not included. Patient Education Trochanteric Bursitis Rehab Ask your health care provider which exercises are safe for you. Do exercises exactly as told by your health care provider and adjust them as directed. It is normal to feel mild stretching, pulling, tightness, or discomfort as you do these exercises, but you should stop right away if you feel suddenpain or your pain gets worse.??Do not begin these exercises until told by your health care provider. Stretching exercises These exercises warm up your muscles and joints and improve the movement and flexibility of your hip. These exercises also help to relieve pain and stiffness. Exercise A: Iliotibial band stretch 1. Lie on your side with your left / right leg in the top position. 2. Bend your left / right knee and grab your ankle. 3. Slowly bring your knee back so your thigh is behind your body. 4. Slowly lower your knee toward the floor until you feel a gentle stretch on the outside of your left / right thigh. If you do not feel a stretch and your knee will not fall farther, place the heel of your other foot on top of your outer knee and pull your thigh down farther. 5. Hold this position for seconds. 6. Slowly return to the starting position. Repeat times. Complete this exercise times a day. Strengthening exercises These exercises build strength and endurance in your hip and pelvis. Endurance is the ability to use your muscles for a long time, even after they get tired. Exercise B: Bridge (hip extensors) 1. Lie on your back on a firm surface with your knees bent and your feet flat on the floor. 2. Tighten your buttocks muscles and lift your buttocks off the floor until your trunk is level with your thighs. You should feel the muscles working in your buttocks and the back of your thighs. If this exercise is too easy, try doing it with your arms crossed over your chest. 3. Hold this position for seconds. 4. Slowly return to the starting position. 5. Let your muscles relax completely between repetitions. Repeat times. Complete this exercise times a day. Exercise C: Squats (knee extensors and quadriceps) 1. flavoring machine operator front of a table, with your feet and knees pointing straight ahead. You may rest your hands on the table for balance but not for support. 2. Slowly bend your knees and lower your hips like you are going to sit in a chair. ? Keep your weight over your heels, not over your toes. ? Keep your lower legs upright so they are parallel with the table legs. ? Do not let your hips go lower than your knees. ? Do not bend lower than told by your health care provider. ? If your hip pain increases, do not bend as low. 3. Hold this position for seconds. 4. Slowly push with your legs to return to standing. Do not use your hands to pull yourself to standing. Repeat times. Complete this exercise times a day. Exercise D: Hip hike 1. Stand sideways on a bottom step. Stand on your left / right leg with your other foot unsupportednext to the step. You can hold onto the railing or wall if needed for balance. 2. Keeping your knees straight and your torso square, lift your left / right hip up toward the ceiling. 3. Hold this position for seconds. 4. Slowly let your left / right hip lower toward the floor, past the starting position. Your foot should get closer to the floor. Do not lean or bend your knees. Repeat times. Complete this exercise times a day. Exercise E: Single leg stand 1. Stand near a counter or door frame that you can hold onto for balance as needed. It is helpful to well logging mud analysis captain front of a mirror for this exercise so you can watch your hip. 2. Squeeze your left / right buttock muscles then lift up your other foot. Do not let your left / right hip push out to the side. 3. Hold this position for seconds. Repeat times. Complete this exercise times a day. This information is not intended to replace advice given to you by your health care provider. Make sure you discuss any questions you have with your health care provider. Document Released: 10/23/2005 Document Revised: 05/22/2017 Document Reviewed: 08/30/2016 Elsevier Interactive Patient Education ?? 2019 [employer] documented in this encounter Plan of Treatment Upcoming Encounters Date Type Department Care Team (Late st Contact Info) Description 08/31/2024 8:30 AM EST Appointment [facility] [address] [address] [place] [address] 10/25/2024 10:45 AM EST Office Visit [facility] RHEUMATOLOGY [facility] [address] [place] [address] Jessica Cortes MD [address] [place] [address] 01/25/2025 9:00 AM EDT Appointment [address] [place] [address] [place] [address] 05/09/2025 11:00 AM EDT Appointment [address] [address] [place] [address] 05/09/2025 11:15 AM EDT Appointment [address] [place] [address] Susana Garay MD [address] [place] [address] Scheduled Orders Name Type Priority Associated Diagnoses Orde r Schedule SEDIMENTATION RATE AUTOMATED Lab Routine Rheumatoid arthritis involving multiple sites with positive rheumatoid factor (HCC) Every 6 weeks for 10 Occurrences starting 11/22/2019 until 11/21/2020, 2 completed C-REACTIVE PROTEIN Lab Routine Rheumatoid arthritis involving multiple sites with positive rheumatoid factor (HCC) Every 6 weeks for 10 Occurrences starting 11/22/2019 until 11/21/2020, 2 completed CBC WITH DIFF Lab Routine Rheumatoid arthritis involving multiple sites with positive rheumatoid factor (HCC) Every 6 weeks for 10 Occurrences starting 11/22/2019 until 11/21/2020, 2 completed COMPREHENSIVE METABOLIC PANEL Lab Routine Rheumatoid arthritis involving multiple sites with positive rheumatoid factor (HCC) Every 6 weeks for 10 Occurrences starting 11/22/2019 until 11/21/2020, 2 completed documented as of this encounter Goals Goal Patient Goal Type Associated Problems Recent Progress Patient-Stated? Author Maintain a healthy diet, exercise regularly and maintain an ideal body weight General Porsche Ashley RN documented as of this encounter Results * COMPREHENSIVE METABOLIC PANEL [...] mL/min/1.7 3 m2 05/16/2020 7:25 PM EDT [facility] GFR Non Afr Am 94 >=60 mL/min/1.7 3 m2 05/16/2020 7:25 PM EDT [facility] Comment: [...] ORDERABLES Siobhan finnegan Result [facility] [address] [facility], [place] [address] [facility] [address] [place] [address] * (ABNORMAL) CBC WITH DIFF (05/16/2020 3:09 PM EDT) [facility] Signature WBC 10.2 3.7 - 10.3 x10(3)/mcL 05/16/2020 [...] 7:08 PM EDT [facility] MCHC 32.2 30.7 - 35.5 g/dL 05/16/2020 7:08 PM EDT [facility] RDW 13.1 <=14.9 % 05/16/2020 7:08 PM EDT [facility] Platelet 339 155 - 369 x10(3)/mcL 05/16/2020 7:08 PM EDT [facility] MPV 11.5 8.8 - 12.5 fL 05/16/2020 7:08 PM EDT [facility] Neut Percent 57.1 % 05/16/2020 7:08 PM EDT [facility] Comment:Neutrophils equals s egs plus bands Imm Gran% 0.4 % 05/16/2020 7:08 PM EDT [facility] Comment:Automated count of m etamyelocytes, myelocytes and promyelocytes. Lymph Percent 27.5 % 05/16/2020 7:08 PM EDT [facility] [place] Percent 10.9 % 05/16/2020 7:08 PM EDT [facility] Eos Percent 3.3 % 05/16/2020 7:08 PM EDT [facility] Baso Percent 0.8 % 05/16/2020 7:08 PM EDT [facility] Neut # 5.8 1.6 - 6.1 x10(3)/mcL 05/16/2020 7:08 PM EDT [facility] Comment:Neutrophils equals s egs plus bands IMMGRAN# 0.0 0.0 - 0.1 x10(3)/mcL 05/16/2020 7:08 PM EDT [facility] Comment:Automated count of m etamyelocytes, myelocytes and promyelocytes. An absolute IG <0.1 is reported as 0.0. Lymph # 2.8 1.2 - 3.9 x10(3)/mcL 05/16/2020 7:08 PM EDT [facility] [place] # 1.1(H) 0.3 - 0.9 x10(3)/mcL 05/16/2020 7:08 PM EDT [facility] Eos# 0.3 0.0 - 0.5 x10(3)/mcL 05/16/2020 7:08 PM EDT [facility] Baso # 0.1 0.0 - 0.1 x10(3)/mcL 05/16/2020 7:08 PM EDT [facility] [employer] Blood Venipuncture / Unknown 05/16/2020 3:09 PM EDT 05/16/2020 3:09 PM EDT us Jessica Cortes MD HEMATOLOGY ORDERABLES Fin al Result Performing Organization Address [facility] Co de Phone Number [facility] [employer] [facility] [address] [facility] , [place] [address] * (ABNORMAL) C-REACTIVE PROTEIN (05/16/2020 3:09 PM EDT) CRP 11.86(H) <=5.00 mg/L 05/16/2020 7:25 PM EDT [facility] [employer] Blood Venipuncture / Unknown 05/16/2020 3:09 PM EDT 05/16/2020 3:09 PM EDT us Jessica Cortes MD CHEMISTRY ORDERABLES Siobhan l Result Performing Organization Address [facility] de Phone Number [facility] [employer] [facility] [address] [facility] , [place] [address] * (ABNORMAL) SEDIMENTATION RATE AUTOMATED (05/16/2020 3:09 PM EDT) Sed Rate 25(H) 0 - 20 mm/hr 05/16/2020 7:38 PM EDT [facility] [employer] Blood Venipuncture / Unknown 05/16/2020 3:09 PM EDT 05/16/2020 3:09 PM EDT us Jessica Cortes MD HEMATOLOGY ORDERABLES Fin al Result Performing Organization Address [facility] Co de Phone Number [facility] [employer] [facility] [address] [facility] , [place] [address] * (ABNORMAL) COMPREHENSIVE METABOLIC PANEL (03/21/2020 12:18 PM EDT) Sodium 137 136 - 145 mmol/L 03/21/2020 8:47 PM EDT [facility] Potassium 3.5 3.5 - 5.0 mmol/L 03/21/2020 8:47 PM EDT [facility] Chloride 102 98 - 107 mmol/L 03/21/2020 8:47 PM EDT [facility] Total CO2 23 22 - 29 mmol/L 03/21/2020 8:47 PM EDT [facility] Anion Gap 12 7 - 16 mmol/L 03/21/2020 8:47 PM EDT [facility] Calcium 9.7 8.6 - 10.4 mg/dL 03/21/2020 8:47 PM EDT [facility] Glucose Lvl 153(H) 74 - 100 mg/dL 03/21/2020 8:47 PM EDT [facility] BUN 10 6 - 20 mg/dL 03/21/2020 8:47 PM EDT [facility] Creatinine 0.74 0.51 - 1.30 mg/dL 03/21/2020 8:47 PM EDT [facility] Albumin 4.4 3.5 - 5.2 gm/dL 03/21/2020 8:47 PM EDT [facility] Total Protein 7.5 6.4 - 8.3 gm/dL 03/21/2020 8:47 PM EDT [facility] Bili Total 0.4 0.1 - 1.3 mg/dL 03/21/2020 8:47 PM EDT [facility] ALT 8 <=41 U/L 03/21/2020 8:47 PM EDT [facility] AST 20 <=40 U/L 03/21/2020 8:47 PM EDT [facility] Alk Phos 119 36 - 123 U/L 03/21/2020 8:47 PM EDT [facility] GFR Afr Am 110 >=60 mL/min/1.7 3 m2 03/21/2020 8:47 PM EDT [facility] GFR Non Afr Am 95 >=60 mL/min/1.7 3 m2 03/21/2020 8:47 PM EDT [facility] Comment: [...] or muscle mass. Blood Venipuncture / Unknown 03/21/2020 12:18 PM EDT 03/21/2020 12:18 PM EDT us Jessica Cortes MD CHEMISTRY ORDERABLES Siobhan finnegan Result [facility] [address] [facility], [address] [place] [id number] [facility] [address] [place] [id number] * (ABNORMAL) CBC WITH DIFF (03/21/2020 12:18 PM EDT) WBC 9.9 3.7 - 10.3 x10(3)/mcL 03/21/2020 7:29 PM EDT [facility] RBC 5.02 3.90 - 5.20 x10(6)/mcL 03/21/2020 7:29 PM EDT [facility] Hgb 14.5 11.2 - 15.7 g/dL 03/21/2020 7:29 PM EDT [facility] Hct 45.8(H) 34.0 - 45.0 % 03/21/2020 7:29 PM EDT [facility] MCV 91.2 80.0 - 100.0 fL 03/21/2020 7:29 PM EDT [facility] MCH 28.9 26.0 - 34.0 pg 03/21/2020 7:29 PM EDT [facility] MCHC 31.7 30.7 - 35.5 g/dL 03/21/2020 7:29 PM EDT [facility] RDW 13.4 <=14.9 % 03/21/2020 7:29 PM EDT [facility] Platelet 353 155 - 369 x10(3)/mcL 03/21/2020 7:29 PM EDT [facility], [facility] MPV 11.0 8.8 - 12.5 fL 03/21/2020 7:29 PM EDT [facility], [facility] Neut Percent 70.0 % 03/21/2020 7:29 PM EDT [facility] Comment:Neutrophils equals s egs plus bands Imm Gran% 0.7 % 03/21/2020 7:29 PM EDT [facility], [facility] Comment:Automated count of m etamyelocytes, myelocytes and promyelocytes. Lymph Percent 21.5 % 03/21/2020 7:29 PM EDT [facility], [facility] [place]ton Percent 5.8 % 03/21/2020 7:29 PM EDT [facility] Eos Percent 1.3 % 03/21/2020 7:29 PM EDT [facility], [facility] Baso Percent 0.7 % 03/21/2020 7:29 PM EDT [facility], [facility] Neut # 6.9(H) 1.6 - 6.1 x10(3)/mcL 03/21/2020 7:29 PM EDT [facility], [facility] Comment:Neutrophils equals s egs plus bands IMMGRAN# 0.1 0.0 - 0.1 x10(3)/[facility] 03/21/2020 7:29 PM EDT [facility], [facility] Comment:Automated count of m etamyelocytes, myelocytes and promyelocytes. An absolute IG <0.1 is reported as 0.0. Lymph # 2.1 1.2 - 3.9 x10(3)/[facility] 03/21/2020 7:29 PM EDT [facility] Carlton # 0.6 0.3 - 0.9 x10(3)/[facility] 03/21/2020 7:29 PM EDT [facility] Eos# 0.1 0.0 - 0.5 x10(3)/[facility] 03/21/2020 7:29 PM EDT [facility], [facility] Baso # 0.1 0.0 - 0.1 x10(3)/[facility] 03/21/2020 7:29 PM EDT [facility], [facility] Blood Venipuncture / Unknown 03/21/2020 12:18 PM EDT 03/21/2020 12:18 PM EDT us Jessica Cortes MD HEMATOLOGY ORDERABLES Fin al Result Performing Organization Address City/[facility]/ZIP Co de Phone Number [facility] [address] [facility] , [address] [place] [phone] * (ABNORMAL) C-REACTIVE PROTEIN (03/21/2020 12:18 PM EDT) [facility] CRP 6.90(H) <=5.00 mg/L 03/21/2020 8:47 PM [address] [facility] [employer], [facility] Blood Venipuncture / Unknown 03/21/2020 12:18 PM EDT 03/21/2020 12:18 PM EDT us Jessica Cortes MD CHEMISTRY ORDERABLES Siobhan l Result Performing Organization Address [facility] Co de Phone Number [facility] [address] [facility] , [place] [address] * (ABNORMAL) SEDIMENTATION RATE AUTOMATED (03/21/2020 12:18 PM EDT) [facility] Sed Rate 22(H) 0 - 20 mm/hr 03/21/2020 7:49 PM EDT [facility] Blood Venipuncture / Unknown 03/21/2020 12:18 PM EDT 03/21/2020 12:18 PM EDT us Jessica Cortes MD HEMATOLOGY ORDERABLES Fin al Result Performing Organization Address City/[facility]/ZIP Co de Phone Number [facility] [address] [place] [address] * QUANTIFERON TB GOLD (03/21/2020 12:18 PM EDT) [facility] Quantiferon-TB Gold in Tube Negative Negative, Indeterminate 03/23/2020 2:36 PM EDT [facility] [employer], [facility] Quantiferon Mitogen minus NIL 9.15 IU/mL 03/23/2020 2:36 PM EDT [facility] [employer], [facility] Quantiferon NIL 0.02 IU/mL 03/23/2020 2:36 PM EDT [facility] [employer], [facility] QUANTIFERON TB1 MINUS NIL 0.00 IU/mL 03/23/2020 2:36 PM EDT [facility] [employer] [facility] QUANTIFERON TB2 MINUS NIL 0.00 IU/mL 03/23/2020 2:36 PM EDT [facility] [employer] [facility] Blood Venipuncture / Unknown 03/21/2020 12:18 PM EDT 03/21/2020 12:18 PM EDT Narrative [facility] [employer] [facility] - 03/23/2020 2:36 PM EDT Interferon gamma release is measured for patient specimens from each of four tubes. A qualitative result of Negative, Positive or Indeterminant is based on the interpretation of four [...] Cortes MD IMMUNOLOGY ORDERABLES Fin al Result [facility] [employer] [facility] [address] [facility] , [place] [address] documented in this encounter Visit Diagnoses Diagnosis [...] tuberculosis documented in this encounter Care Teams Keyboard Instrument Repairer Relationship Specialty Start Date End Date Julisa Kerr MD [address] [place] [address] PCP - General 02/22/11 Jessica Cortes MD [address] [place] [address] Internal Medicine-Rheumatology 04/26/16 documented as of this encounter
--- OUTSIDE RECORDS SUMMARY | 2024-08-22 21:49 | XMS_ITS | Encounter Summary ---
Author Organization [place] [address] Care Team Providers Care Feed Mixer Helper Name Role Phone Julisa Kerr MD Primary Care Provider [phone] Jessica Cortes MD Unavailable [phone] Reason for Visit * Reason Comments Medication Refill Encounter Details Date Type Department Care Team (Late st Contact Info) Description 11/23/2019 Refill [facility] [address] [place] [address] Jhon Peña APRN [address] [place], [place] [id number] Medication Refill Social History Tobacco Use Types [...] of Assessment Author No 10/01/2018 2:11 PM MANUEL CarranzaGina RMCarlene * Does this person have serious difficulty walking or climbing stairs? Answer Date of Assessment Author No 10/01/2018 2:11 PM MANUEL CarranzaGina JARROD * Does this person have difficulty dressing or bathing? Answer Date of Assessment Author No 10/01/2018 2:11 PM MANUEL CarranzaGina JARROD * Because of a physical, mental or emotional condition, does this person have difficulty doing errands alone such as visiting a doctor's office or shopping? Answer Date of Assessment Author No 10/01/2018 2:11 PM MANUEL CarranzaGina JARROD documented as of this encounter Mental Status * Because of a physical, mental or emotional condition, does this person have serious difficulty concentrating, remembering or making decisions? Answer Entry Date Author No 10/01/2018 2:11 PM Gina Parada RMA documented in this encounter Ordered Prescriptions Prescription Sig Dispense Quantity Refills Last Filled Start Date End Date busPIRone (BUSPAR) 10 mg Oral TabletIndications: Anxiety TAKE 1 TABLET BY MOUTH TWICE A DAY NEEDED 60 Tab 11/23/2019 03/10/2020 documented in this encounter Plan of Treatment Upcoming Encounters Date Type Department Care Team (Late st Contact Info) Description 08/31/2024 8:30 AM EST Appointment [place] [address] [place] [address] 10/25/2024 10:45 AM EST Office Visit [facility] [address] [place] [address] Jessica Cortes MD [address] [facility] Building [address] [place] [address] 01/25/2025 9:00 AM EDT Appointment [place] [address] [place] [address] 05/09/2025 11:00 AM EDT Appointment [place] [address] [place] [address] 05/09/2025 11:15 AM EDT Appointment [facility] [address] [place] [address] Susana Garay MD [address] [place] [address] [place] [address] documented as of this encounter Goals Goal Patient Goal Type Associated Problems Recent Progress Patient-Stated? 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, RN documented as of this encounter Visit Diagnoses Diagnosis Anxiety Anxiety state, unspecified documented in this encounter Discontinued Medications Medication Sig Discontinue Reason Start Date End Da te busPIRone (BUSPAR) 10 mg Oral TabletIndications:Anxiety TAKE 1 TAB BY MOUTH 2 TIMES DAILY NEEDED. 10/22/2019 11/23/2019 documented as of this encounter Care Teams Feed Mixer Helper Relationship Specialty Start Date End Date Julisa Kerr MD [address] [place], [place] [id number] PCP - General 02/22/11 Jessica Cortes MD [address] [address] Internal Medicine-Rheumatology 04/26/16 documented as of this encounter
--- OUTSIDE RECORDS SUMMARY | 2024-08-22 21:49 | XMS_ITS | Encounter Summary ---
Author Organization [facility] [place] [address] Care Team Providers Care Captain Fishing Vessel Name Role Phone Julisa Kerr MD Primary Care Provider [phone] Jessica Cortes MD Unavailable [phone] Encounter Details Date Type Department Care Team (Latest Contact Info) Description 03/21/2020 Travel Social History Tobacco Use Types Packs/Day [...] have Coronavirus / COVID-19? No / Unsure 03/21/2020 11:57 AM EDT documented as of this encounter [...] Info) Description 08/31/2024 8:30 AM EST Appointment [place] [address] [place] [address] 10/25/2024 10:45 AM EST Office Visit [facility] [address] [place] [address] Jessica Cortes MD [address] [facility] [address] [place] [address] 01/25/2025 9:00 AM EDT Appointment [place] [address] [place] [address] 05/09/2025 11:00 AM EDT Appointment [place] [address] [place] [address] 05/09/2025 11:15 AM EDT Appointment [place] [address] [place] [address] Susana Garay MD [address] [place] [address] [address] [place] [id number] documented as of this encounter Goals Goal Patient Goal Type Associated Problems Recent Progress Patient-Stated? 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, RN documented as of this encounter Visit Diagnoses Not on filedocumented in this encounter Care Teams Captain Fishing Vessel Relationship Specialty Start Date End Date Julisa Kerr MD [address] [place] [address] PCP - General 02/22/11 Jessica Cortes MD [address] [place] [id number] Internal Medicine-Rheumatology 04/26/16 documented as of this encounter
--- OUTSIDE RECORDS SUMMARY | 2024-08-22 21:49 | XMS_ITS | Encounter Summary ---
Author Organization [facility] [place] [address] Care Team Providers Care Content Administrator Name Role Phone Julisa Kerr MD Primary Care Provider [phone] Jessica Cortes MD Unavailable [phone] Encounter Details Date Type Department Care Team (Latest Contact Info) Description 03/07/2020 Travel Social History Tobacco Use Types Packs/Day [...] have Coronavirus / COVID-19? No / Unsure 03/07/2020 3:05 PM EDT documented as of this encounter Functional Status * Is the person deaf or does he/she have serious difficulty hearing? Answer Date of Assessment Author No 10/01/2018 2:11 PM Gina Parada RMA * Is the person blind or does he/she have serious difficulty seeing even when wearing glasses? Answer Date of Assessment Author No 10/01/2018 2:11 PM EST Carranza, Gina Beatriz, RMA * Does this person have serious difficulty walking or climbing stairs? Answer Date of Assessment Author No 10/01/2018 2:11 PM Gina Parada RMA * Does this person have difficulty dressing or bathing? Answer Date of Assessment Author No 10/01/2018 2:11 PM Gina Parada RMA * Because of a physical, mental [...] Gina Parada RMA documented in this encounter Plan of Treatment Upcoming Encounters Date Type Department Care Team (Late st Contact Info) Description 08/31/2024 8:30 AM EST [address] [place] [address] 10/25/2024 10:45 AM EST Office Visit [facility] [address] [facility] [address] [place] [address] Jessica Cortes MD [address] [facility] Building [address] [place] [address] 01/25/2025 9:00 AM EDT Appointment [place] [address] [place] [address] 05/09/2025 11:00 AM EDT Appointment [place] [address] [place] [address] 05/09/2025 11:15 AM EDT Appointment [place] [address] [place] [address] Susana Garay MD [address] [place] [address] [place] [address] documented as of this encounter Goals Goal Patient Goal Type Associated Problems Recent Progress Patient-Stated? 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, RN documented as of this encounter Visit Diagnoses Not on filedocumented in this encounter Care Teams Content Administrator Relationship Specialty Start Date End Date Julisa Kerr MD [address] [place] [address] PCP - General 02/22/11 Jessica Cortes MD [address] [facility] [address] [place] [address] Internal Medicine-Rheumatology 04/26/16 documented as of this encounter
--- OUTSIDE RECORDS SUMMARY | 2024-08-22 21:49 | XMS_ITS | Encounter Summary ---
Author Organization [place] [address] Care Team Providers Care Radiologist Physician Name Role Phone Julisa Kerr MD Primary Care Provider [phone] Jessica Cortes MD Unavailable [phone] Reason for Visit * Reason Comments Medication Refill Encounter Details Date Type Department Care Team (Late st Contact Info) Description 05/15/2020 Refill SEP Rheumatology [facility] 651 [facility] Building [address] [place] [phone] Jessica Cortes MD [address] [place] [phone] Medication Refill Social History Tobacco Use Types [...] 0.6 ML EVERY 7 DAYS. 4 mL 05/15/2020 0 documented in this encounter Miscellaneous Notes * Telephone Encounter - Miya Haider MA - 05/15/2020 11:25 AM EDT Wendy; 03/21/20 Labs' 03/21/20 Nov; 06/21/20 Per chart review MTX last filled on 03/21/20 with 1 refill MTX refilled today 05/15/20 with 0 refills Left detailed message advising patient she is due for labs tomorrow Filled MTX for 1 month Restart MTX 15 mg SQ weekly documented in this encounter Plan of Treatment Upcoming Encounters Date Type Department Care Team (Late st Contact Info) Description 08/31/2024 8:30 AM EST Appointment [facility] [address] [place] [address] 10/25/2024 10:45 AM EST Office Visit EDG RHEUMATOLOGY [facility] [address] [place] [phone] Jessica Cortes MD 651 [facility] Building [address] [place] [address] 01/25/2025 9:00 AM EDT Appointment [facility] Cancer [place] [address] [place] [address] 05/09/2025 11:00 AM EDT Appointment [place] [address] [place] [address] 05/09/2025 11:15 AM EDT Appointment [place] [address] [place] [address] uSsana Garay MD [address] [place] [address] [place] [address] Scheduled Orders Name Type Priority Associated Diagnoses Orde r Schedule CBC Lab Routine Rheumatoid arthritis involving multiple sites with positive rheumatoid factor (HCC) Raynaud's phenomenon without gangrene Therapeutic drug monitoring 10 Occurrences starting 05/15/2020 until 05/15/2021, 2 completed COMPREHENSIVE METABOLIC PANEL Lab Routine Rheumatoid arthritis involving multiple sites with positive rheumatoid factor (HCC) Raynaud's phenomenon without gangrene Therapeutic drug monitoring 10 Occurrences starting 05/15/2020 until 05/15/2021, 2 completed SEDIMENTATION RATE AUTOMATED Lab Routine Rheumatoid arthritis 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 RN documented as of this encounter Results * (ABNORMAL) C-REACTIVE PROTEIN (02/06/2021 12:46 PM EDT) [facility] CRP 10.85(H) <=5.00 mg/L 02/06/2021 9:31 PM EDT [facility] Blood VENOUS BLOOD / Unknown Venipuncture / Unknown 02/06/2021 12:46 PM EDT 02/06/2021 12:46 PM EDT us Jessica Cortes MD CHEMISTRY ORDERABLES Siobhan l Result [facility] [employer], [facility] [address] [facility], [address] [place] [phone] * SEDIMENTATION RATE AUTOMATED (02/06/2021 12:46 PM EDT) [facility] Sed Rate 17 0 - 30 mm/hr 02/06/2021 8:38 PM EDT [facility] Blood VENOUS BLOOD / Unknown Venipuncture / Unknown 02/06/2021 12:46 PM EDT 02/06/2021 12:46 PM EDT us Jessica Cortes MD HEMATOLOGY ORDERABLES Fin al Result Performing Organization Address City/[facility]/ZIP Co de Phone Number [place] [phone] * (ABNORMAL) COMPREHENSIVE METABOLIC PANEL (02/06/2021 12:46 PM EDT) [facility] Sodium 139 136 - 145 mmol/L 02/06/2021 9:31 PM EDT [facility] Potassium 3.9 3.5 - 5.0 mmol/L 02/06/2021 9:31 PM EDT [facility] Chloride 103 98 - 107 mmol/L 02/06/2021 9:31 PM EDT [facility] Total CO2 27 22 - 29 mmol/L 02/06/2021 9:31 PM EDT [facility] Anion Gap 9 7 - 16 mmol/L 02/06/2021 9:31 PM EDT [facility], [facility] Calcium 9.6 8.6 - 10.4 mg/dL 02/06/2021 9:31 PM EDT [facility], [facility] Glucose Lvl 106(H) 74 - 100 mg/dL 02/06/2021 9:31 PM EDT [facility], [facility] BUN 8 6 - 20 mg/dL 02/06/2021 9:31 PM EDT [facility], [facility] Creatinine 0.77 0.51 - 1.30 mg/dL 02/06/2021 9:31 PM EDT [facility], [facility] Albumin 4.1 3.5 - 5.2 gm/dL 02/06/2021 9:31 PM EDT [facility], [facility] Total Protein 7.1 6.4 - 8.3 gm/dL 02/06/2021 9:31 PM EDT [facility], [facility] Bili Total 0.3 0.1 - 1.3 mg/dL 02/06/2021 9:31 PM EDT [facility], [facility] ALT 9 <=41 U/L 02/06/2021 9:31 PM EDT [facility], [facility] AST 15 <=40 U/L 02/06/2021 9:31 PM EDT [facility], [facility] Alk Phos 120 36 - 123 U/L 02/06/2021 9:31 PM EDT [facility], [facility] GFR Afr Am 104 >=60 mL/min/1.7 3 m2 02/06/2021 9:31 PM EDT [facility] GFR Non Afr Am 90 >=60 mL/min/1.7 3 m2 02/06/2021 9:31 PM EDT [facility] Comment: This estimated GFR was [...] finnegan Result [facility] [address] [facility], [place] [address] [facility] 1 [place] [address] * CBC (02/06/2021 12:46 PM EDT) Pathologist [facility] WBC 9.4 3.7 - 10.3 x10(3)/mcL 02/06/2021 [...] 8:25 PM EDT [facility] MPV 11.4 8.8 - 12.5 fL 02/06/2021 8:25 PM EDT [facility] Blood VENOUS BLOOD / Unknown Venipuncture / Unknown 02/06/2021 12:46 PM EDT 02/06/2021 12:46 PM EDT us Jessica Cortes MD HEMATOLOGY ORDERABLES Fin al Result Performing Organization Address City/[facility] Co de Phone Number [employer] [facility] [address] , [address] [place] [phone] * (ABNORMAL) C-REACTIVE PROTEIN (11/22/2020 1:55 PM EST) Pathologist [facility] CRP 21.10(H) <=5.00 mg/L 11/22/2020 11:12 PM EST [facility] [employer], [employer] Blood VENOUS BLOOD / Unknown Venipuncture / Unknown 11/22/2020 1:55 PM EST 11/22/2020 1:55 PM EST us Jessica Cortes MD CHEMISTRY ORDERABLES Siobhan l Result Performing Organization Address [facility] de Phone Number [facility] [employer] [facility] [address] , [place] [address] * (ABNORMAL) SEDIMENTATION RATE AUTOMATED (11/22/2020 1:55 PM EST) [facility] Sed Rate 41(H) 0 - 30 mm/hr 11/22/2020 9:31 PM EST [facility] Blood VENOUS BLOOD / Unknown Venipuncture / Unknown 11/22/2020 1:55 PM EST 11/22/2020 1:55 PM EST us Jessica Cortes MD HEMATOLOGY ORDERABLES Fin al Result Performing Organization Address [facility]/ZIP Co de Phone Number [facility] 1 [place] [address] * (ABNORMAL) COMPREHENSIVE METABOLIC PANEL (11/22/2020 1:55 PM EST) Pathologist [facility] Sodium 138 136 - 145 mmol/L 11/22/2020 11:12 PM EST [facility] [employer] Potassium 3.9 3.5 - 5.0 mmol/L 11/22/2020 11:12 PM EST [facility] [employer], [facility] Chloride 103 98 - 107 mmol/L 11/22/2020 [...] - 8.3 gm/dL 11/22/2020 11:12 PM EST [facility] Bili Total 0.2 0.1 - 1.3 mg/dL 11/22/2020 11:12 PM EST [facility] ALT 22 <=41 U/L 11/22/2020 11:12 PM EST [facility], [facility] AST 25 <=40 U/L 11/22/2020 11:12 PM EST [facility], [facility] Alk Phos 124(H) 36 - 123 U/L 11/22/2020 11:12 PM EST [facility], [facility] GFR Afr Am 119 >=60 mL/min/1.7 3 m2 11/22/2020 11:12 PM [facility] GFR Non Afr Am 103 >=60 mL/min/1.7 3 m2 11/22/2020 11:12 PM [facility] Comment: This estimated GFR was calculated [...] ORDERABLES Siobhan sivan Result [facility], [facility] [address] [facility] [place] [phone] [facility] 1 [place] [address] * CBC (11/22/2020 1:55 PM EST) WBC 8.2 3.7 - 10.3 x10(3)/mcL 11/22/2020 9:04 PM EST [facility] RBC 5.11 3.90 - 5.20 x10(6)/mcL 11/22/2020 [...] HEMATOLOGY ORDERABLES Fin al Result [facility] [employer] [address] [facility] , [address] [place], [place] [phone] documented in this encounter Visit Diagnoses Diagnosis Raynaud's phenomenon without gangrene- Primary Rheumatoid arthritis involving multiple sites with positive rheumatoid factor (HCC) Therapeutic drug monitoring Encounter for therapeutic drug monitoring documented in this encounter Discontinued Medications Medication Sig Discontinue Reason Start Date End Da te methotrexate 25 mg/mL Inj SolutionIndications:R heumatoid arthritis involving multiple sites with positive rheumatoid factor (HCC) Subcutaneous (Inject under the skin) 0.6 mL every 7 days. 03/21/2020 05/15/2020 documented as of this encounter Care Teams Radiologist Physician Relationship Specialty Start Date End Date Julisa Kerr MD [address] [place] [address] PCP - General 02/22/11 Jessica Cortes MD [address] [place] [address] [address] [place] [address] Internal Medicine-Rheumatology 04/26/16 documented as of this encounter
--- OUTSIDE RECORDS SUMMARY | 2024-08-22 21:49 | XMS_ITS | Encounter Summary ---
Author Organization [place] [address] Care Team Providers Care Remote Sensing Specialist Name Role Phone Julisa Kerr MD Primary Care Provider [phone] Jessica Cortes MD Unavailable [phone] Reason for Visit * Reason Comments Pharmacy Rheumatology Management Kimberly CHANDRA Encounter Details Date Type Department Care Team (Latest Contact Info) Description 12/22/2019 Specialty Pharmacy [facility] [address] [phone] Robert Dumont, [facility] Rheumatology Management (Kimberly CHANDRA) Social History Tobacco Use Types Packs/Day Years [...] Parada RMA * Does this person have serious [...] skin every 14 days. 2.28 mL 2 12/23/2019 0 documented in this encounter Progress Notes * Robert uDmont CPhT - 12/22/2019 3:46 PM EDT [facility] Prescription received for Kevzara. Prescription requires prior authorization. Submitted PA via covermymeds. Will follow up on 12/22. * Priti Valentine CPhT - 12/22/2019 3:46 PM EDT [facility] Received faxed PA approval for Kevzara. It has been approved for 12/23/19 to 04/23/20. Patient must fill at [facility]. No answer, unable to leave voicemail. Will send Tindiehart message since patient looks like she answers those. * Jorge Atwood RPH - 12/22/2019 3:46 PM EDT [facility] Prescription for Kimberly was transferred to [facility]. documented in this encounter Miscellaneous Notes * Addendum Note - Jorge Atwood RPH - 12/22/2019 3:46 PM EDTAddended by: JORGE ATWOOD on: 12/23/2019 10:40 AM Modules accepted: Orders documented in this encounter Plan of Treatment Upcoming Encounters Date Type Department Care Team (Late st Contact Info) Description 08/31/2024 8:30 AM EST Appointment [place] [address] [place] [address] 10/25/2024 10:45 AM EST Office Visit EDG RHEUMATOLOGY [facility] [address] [place] [phone] Jessica Cortes MD 651 [facility] Building [address] [place] [address] 01/25/2025 9:00 AM EDT Appointment [place] [address] [place] [address] 05/09/2025 11:00 AM EDT Appointment [place] [address] [place] [address] 05/09/2025 11:15 AM EDT Appointment [place] [address] [place] [address] Susana Garay MD [address] [place] [address] [place] [address] documented as of this encounter Goals Goal [...] Discontinue Reason Start Date End Da te sarilumab (KEVZARA) 200 mg/1.14 mL SubQ Pen InjectorIndications:Rheu matoid arthritis involving multiple sites with positive rheumatoid factor (HCC) Inject 1 syringe under the skin every 14 days. Reorder 12/22/2019 12/23/2019 documented as of this encounter Care Teams Remote Sensing Specialist Relationship Specialty Start Date End Date Julisa Kerr MD 100 [place] [address] PCP - General 02/22/11 Jessica Cortes MD [address] [place] [phone] Internal Medicine-Rheumatology 04/26/16 documented as of this encounter
--- OUTSIDE RECORDS SUMMARY | 2024-08-22 21:49 | XMS_ITS | Encounter Summary ---
Author Organization [place] [address] Care Team Providers Care Poultry Processing Supervisor Name Role Phone Julisa Kerr MD Primary Care Provider [phone] Jessica Cortes MD Unavailable [phone] Encounter Details Date Type Department Care Team (Late st Contact Info) Description 01/11/2020 Abstract SEP Rheumatology [facility] [address] [phone] Jessica Cortes MD [address] [address] Social History Tobacco Use Types Packs/Day Years [...] Assessment Author No 10/01/2018 2:11 PM MANUEL Carranza Gina Henderson JARROD * Does this person have difficulty [...] Entry Date Author No 10/01/2018 2:11 PM MANUEL CararnzaGina RMA documented in this encounter Plan of Treatment Upcoming Encounters Date Type Department Care Team (Late st Contact Info) Description 08/31/2024 8:30 AM EST Appointment [place] [address] [address] [place] [address] 10/25/2024 10:45 AM EST Office Visit [facility] RHEUMATOLOGY [facility] 651 [facility] [address] [place] [address] Jessica Cortes MD 651 [facility] Building [address] [place] [address] 01/25/2025 9:00 AM EDT Appointment [place] [address] [place] [address] 05/09/2025 11:00 AM EDT Appointment [place] [address] [place] [address] 05/09/2025 11:15 AM EDT Appointment [place] [address] [place] [address] Susana Garay MD [address] [place] [address] [place] [address] documented as of this encounter Goals Goal Patient Goal Type Associated Problems Recent Progress Patient-Stated? Author Maintain a healthy diet, exercise regularly and maintain an ideal body weight Porsche Diaz RN documented as of this encounter Procedures Procedure Name Priority Date/Time Associated Diagnosis Comments QUANTIFERON TB GOLD Routine 11/23/2019 SEDIMENTATION RATE AUTOMATED Routine 11/23/2019 CBC WITH DIFF Routine 11/23/2019 C-REACTIVE PROTEIN Routine 11/23/2019 COMPREHENSIVE METABOLIC PANEL Routine 11/23/2019 documented in this encounter Results * QUANTIFERON TB GOLD (11/23/2019) Quantiferon-TB Gold in Tube Negative IU/ML SEP OFFICE Blood VENOUS BLOOD / Unknown 11/23/2019 Jessica Cortes MD IMMUNOLOGY ORDERABLES Fin al Result Performing Organization Address City/[facility]/ZIP Co de Phone Number SEP OFFICE * SEDIMENTATION RATE AUTOMATED (11/23/2019) Sed Rate 57 MM/H SEP OFFICE Blood VENOUS BLOOD / Unknown 11/23/2019 Jessica Cortes MD HEMATOLOGY ORDERABLES Fin al Result SEP OFFICE * (ABNORMAL) CBC WITH DIFF (11/23/2019) WBC 7.5 X10(3)/MCL SEP OFFICE Hgb 4.96(A) 12.0 - 16.0 GM/DL SEP OFFICE Hct 14.2(A) 36 - 46 % SEP OFFICE MCV 43.7(A) 82.0 - 108.0 FL SEP OFFICE MCH 88.2(A) 26.0 - 34.0 PG SEP OFFICE MCHC 29(A) 30 - 37 GM/DL SEP OFFICE RDW 32.6(A) 11.5 - 15.0 % SEP OFFICE Platelet 333 150 - 399 X10(3)/MCL SEP OFFICE Neut Percent 64 46 - 78 % SEP OFFICE Lymph Percent 27 18 - 52 % SEP OFFICE [place] Percent 5.1 3 - 10 % SEP OFFICE Eos Percent 3 0 - 6 % SEP OFFICE Baso Percent 1 0 - 3 % SEP OFFICE Neut# 5 X10(3)/MCL SEP OFFICE Lymph# 2 X10(3)/MCL SEP OFFICE [place]# 0.4 X10(3)/MCL SEP OFFICE Eos# 0.3 X10(3)/MCL SEP OFFICE Baso# 0 X10(3)/MCL SEP OFFICE MPV 7.8 7.5 - 11.5 FL SEP OFFICE Blood VENOUS BLOOD / Unknown 11/23/2019 Jessica Cortes MD HEMATOLOGY ORDERABLES Fin al Result SEP OFFICE * C-REACTIVE PROTEIN (11/23/2019) CRP 10.3 MG/L SEP OFFICE Blood VENOUS BLOOD / Unknown 11/23/2019 Jessica Cortes MD CHEMISTRY ORDERABLES Siobhan l Result SEP OFFICE * COMPREHENSIVE METABOLIC PANEL (11/23/2019) Sodium 138 137 - 147 MMOL/L SEP OFFICE Potassium 4.6 3.4 - 5.3 MMOL/L SEP OFFICE Chloride 102 99 - 108 MMOL/L SEP OFFICE CO2 27 MMOL/L SEP OFFICE Anion Gap 13.6 MMOL/L SEP OFFICE BUN 11 4 - 21 MG/DL SEP OFFICE Creatinine 0.7 0.5 - 1.1 MG/DL SEP OFFICE GFR Non Afr Am 108 SEP OFFICE GFR Afr Am 89 SEP OFFICE Glucose 83 60 - 200 MG/DL SEP OFFICE Calcium 9.60 8.70 - 10.70 MG/DL SEP OFFICE Total Bilirubin 0.2 0.1 - 1.4 MG/DL SEP OFFICE AST 20 13 - 35 IU/L SEP OFFICE ALT 9 7 - 35 IU/L SEP OFFICE Total Protein 7.4 6.4 - 8.2 GM/DL SEP OFFICE Albumin 4.3 GM/DL SEP OFFICE Globulin 3.1 G/DL(CALC) SEP OFFICE A/G Ratio 1.4 (CALC) SEP OFFICE Alk Phos 112 25 - 125 IU/L SEP OFFICE Blood VENOUS BLOOD / Unknown 11/23/2019 Jessica Cortes MD CHEMISTRY ORDERABLES Siobhan l Result SEP OFFICE documented in this encounter Visit Diagnoses Not on filedocumented in this encounter Care Teams Poultry Processing Supervisor Relationship Specialty Start Date End Date Julisa Kerr MD 100 [place] [address] PCP - General 02/22/11 Jessica Cortes MD 651 [place] [address] Internal Medicine-Rheumatology 04/26/16 documented as of this encounter
--- OUTSIDE RECORDS SUMMARY | 2024-08-22 21:49 | XMS_ITS | Encounter Summary ---
Author Organization [place] [address] Care Team Providers Care Boom Worker Name Role Phone Julisa Kerr MD Primary Care Provider [phone] Jessica Cortes MD Unavailable [phone] Reason for Visit * Reason Comments Medication Refill Encounter Details Date Type Department Care Team (Late st Contact Info) Description 03/24/2020 Refill SEP [facility] 100 [place] [address] Jhon Peña, JOSE [address] [place], [place] [id number] Medication Refill Social History Tobacco Use Types [...] encounter Miscellaneous Notes * Telephone Encounter - Miri Sharif CPhT - 03/24/2020 10:24 AM EDT Medication refill requested too soon. Refill request denied. Refills sent on 03/10/20 #90 with 2 refills. Yvonne contacted pharmacy and verified that refills are on file. Patient notified via [email or web address] [email or web address] (if MyChart active). documented in this encounter Plan of Treatment Upcoming Encounters Date Type Department Care Team (Late st Contact Info) Description 08/31/2024 8:[address] [facility] [address] [place] [address] 10/25/2024 10:45 AM EST Office Visit [facility]G RHEUMATOLOGY [facility] [address] [place] [facility] [address] [place] [address] Jessica Cortes MD [address] [address] 01/25/2025 9:00 AM EDT Appointment [place] [address] [place] [address] 05/09/2025 11:00 AM EDT [address]ointment [address] [place] [address] 05/09/2025 11:15 AM EDT Appointment [address] [place] [address] Susana Garay MD [address] [place] [address] [place] [address] documented as of this encounter Goals Goal Patient Goal Type Associated Problems Recent Progress Patient-Stated? 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, RN documented as of this encounter Visit Diagnoses Diagnosis Reactive depression Dysthymic disorder documented in this encounter Care Teams Boom Worker Relationship Specialty Start Date End Date Julisa Kerr MD 100 [place] [address] PCP - General 02/22/11 Jessica Cortes MD [address] [address] Internal Medicine-Rheumatology 04/26/16 documented as of this encounter
--- OUTSIDE RECORDS SUMMARY | 2024-08-22 21:49 | XMS_ITS | Encounter Summary ---
Author Organization [place] [address] Care Team Providers Care Schedule Manager Name Role Phone Julisa Kerr MD Primary Care Provider [phone] Jessica Cortes MD Unavailable [phone] Reason for Visit * Reason Comments Follow-up [facility] Rheumatoid Arthritis Raynaud's Syndrome Encounter Details Date Type Department Care Team (Latest Contact Info) Description 03/21/2020 10:15 AM EDT Office Visit SEP Rheumatology [facility] [address] [facility] Building [address] [place] [address] Jessica Cortes MD [address] [address] Rheumatoid arthritis involving multiple sites with positive rheumatoid factor (HCC) (Primary Dx); Raynaud's phenomenon without gangrene; Positive BRET (antinuclear antibody); Sicca syndrome (HCC); Neck pain; Trochanteric bursitis of right hip; Immunocompromised patient [...] have Coronavirus / COVID-19? No / Unsure 03/09/2020 12:56 PM EDT documented as of this encounter Last Filed Vital Signs Vital Sign Reading Time Taken Comments Blood Pressure 97/79 03/21/2020 10:20 AM EDT Pulse 95 03/21/2020 10:20 AM EDT Temperature 36.3 ??C (97.3 ??F) 03/21/2020 10:20 AM E DT Respiratory Rate 16 03/21/2020 10:20 AM EDT Oxygen Saturation - - Inhaled Oxygen Concentration - - Weight 61.8 kg (136 lb 3.2 oz) 03/21/2020 10:20 AM EDT Height 157.5 cm (5' 2 ) 03/21/2020 10:20 AM EDT Body Mass Index 24.91 03/21/2020 10:20 AM EDT documented in this encounter Functional [...] Last Filled Start Date End Date methotrexate 25 mg/mL Inj SolutionIndicatio ns:Rheumatoid arthritis involving multiple sites with positive rheumatoid factor (HCC) Subcutaneous (Inject under the skin) 0.6 mL every 7 days. 4 mL 1 03/21/2020 0 documented in this encounter Progress Notes * Jessica Cortes MD - 03/21/2020 10:15 AM EDT Subjective Subjective: Patient ID: Yuliet Newsome is a 49 y.o. female. Chief Complaint Patient presents with ??? Follow-up [facility] ??? Rheumatoid Arthritis ??? Raynaud's Syndrome HPI The patient comes in for follow up regarding RA. Symptoms started in 2002. Seen by Numerologist, Dr. Astorga. She was seen in [facility] but have not seen her in 6 [...] she has mild pain- 3/10, mild swelling. Stopped MTX 08/2019 due to GI upset. Restarted at 15 mg 10/2019. Started Kevzara beginning of 12/2019. Feels better on it. Cimzia not approved. Has been breaking out in the white scaly patches from time to time. Head has been itching her all the time. Joint pain: hands, wrist, left elbow, knee, shoulder, both hips, feet, Joint swelling: more after working for prolonged time- hands Dry eyes realy bothersome. Uses eye drops. Dry mouth pretty bothersome. Pain on a scale 0-10: 7/10 Type of pain: ache Morning stiffness: up to 60 minutes. Raynaud's: worsened in the cold weather. Current therapy: MTX 15 mg weekly, folic acid 1 mg daily, Kevzara 200 mg q 2 weeks Previous therapy: Tylenol, Codeine, Darvocet, Motrin, Naproxen, [...] and it is failing. 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 Past Medical History: Diagnosis Date ??? [...] 3 ??? fluticasone (FLONASE) 50 mcg/actuation Nasl Crystal, Suspension 1 Crystal by Nasal route daily. 1 Bottle 2 ??? sarilumab (KEVZARA) 200 mg/1.14 mL SubQ Pen Injector Inject 1 syringe under the skin every 14 days. 2.28 mL 2 ??? sertraline (ZOLOFT) 50 mg Oral [...] reviewed and are negative. Objective Objective: Vitals: 03/21/20 1020 BP: 97/79 Pulse: 95 Resp: 16 Temp: 97.3 ??F (36.3 ??C) TempSrc: Forehead Weight: 136 lb 3.2 oz (61.8 kg) Height: 5' 2 (1.575 m) Body mass index is 24.91 kg/m??. Physical Exam Constitutional: She is oriented [...] right wrist, moderate in the left wrist, 2nd right MCP, 5th right PIP,1st left MCP. ROM of the knees, ankles intact, no effusion. ROM of the wrists decreased. Mild tenderness to the right trochanteric bursa. Neurological: She is alert and oriented to person, place, and time. Muscle strength 5/5 upper and lower extremities. Skin: Skin is warm. No rash noted. Psychiatric: She has a normal mood and affect. Vitals reviewed. Rapid 3: 17.7 Lab Results Component Value Date WBC 7.5 11/23/2019 HGB 4.96 (A) 11/23/2019 HCT 14.2 (A) 11/23/2019 MCV 43.7 (A) 11/23/2019 PLT 333 11/23/2019 Chemistry Component Value Date/Time NA 138 11/23/2019 K 4.6 11/23/2019 CL 102 11/23/2019 CO2 27 11/23/2019 BUN 11 11/23/2019 CREATININE 0.7 11/23/2019 GLU 94 03/03/2019 1649 GLU 103 (H) 07/01/2017 1532 Component Value Date/Time CALCIUM 9.60 11/23/2019 ALKPHOS 112 11/23/2019 AST 20 11/23/2019 ALT 9 11/23/2019 BILITOT 0.2 11/23/2019 Lab Results Component Value Date CRP 10.3 11/23/2019 Lab Results Component Value Date SEDRATE 57 11/23/2019 Assessment and Plan: Yuliet was seen today for follow-up, rheumatoid arthritis and raynaud's syndrome. Diagnoses and all orders for this visit: Rheumatoid arthritis involving multiple sites, with positive rheumatoid factor (HCC) Dx in [address] Astorga in [facility]. Records from [facility] received and reviewed. The patient was seen in 05/11/13 for initial evaluation. Presented with polyarticular joint involvement- large and small joints- shoulders, elbows, knees, wrists, knuckles, toes. Per records she had low titer (+) RF, (-) CCP, (+) BRET centromere pattern > 8.0 with negative SSA/SSB, TEACHING MUSIC LESSONS, Scl 70, dsDNA Records indicate she used [...] lips, tingling of the face, itching Off MTX between 08/2019 and 10/2019, off Xeljanz between 04/2019 and 10/2019. Has not been seen since 03/03/2019 due to her 's illness. Significant flare in 10/2019, significant right wrist deformity,synovitis in the wrists, 2nd, 3nd, 5th right MCP, 5th right PIP,1st left MCP, 3rd left PIP. Restart MTX 15 mg SQ weekly ( she failed to do so after the last visit). Started Kevzara 200 mg q 2 weeks. Might be causing itching. Will hold x 1 dose and see whether symptoms improve. Symptoms better. Less tenderness, less synovitis in exam today. Tenderness to both wrists, 5th right PIP. Synovitis in the wrists, significant in the right wrist, moderate in the left wrist, 2nd right MCP, 5th right PIP,1st left MCP. Hepatitis panel negative. Patient should hold therapy while being treated for infections. Patient should not receive live vaccines while on therapy. - methotrexate 25 mg/mL Inj Solution; Subcutaneous (Inject under the skin) 0.6 mL every 7 days. Raynaud's phenomenon without gangrene Positive BRET [...] Prevnar 13 given 12/13/16 Pneumovax 23 given 6/19/17 Therapeutic drug monitoring TB gold negative 11/23/19 Labs every 6-8 weeks while on MTX and Cimzia Return in about 3 months (around 06/21/2020). documented in this encounter Plan of Treatment Upcoming Encounters Date Type Department Care Team (Late st Contact Info) Description 08/31/2024 8:30 AM EST Appointment [place] [address] [place] [address] 10/25/2024 10:45 AM EST Office Visit [facility] RHEUMATOLOGY [facility] [address] [place] [address] Jessica Cortes MD [address] [place] [address] 01/25/2025 9:00 AM EDT Appointment [place] [address] [place] [address] 05/09/2025 11:00 AM EDT Appointment [place] [address] [place] [address] 05/09/2025 11:15 AM EDT Appointment [place] [address] [place] [address] Susana Garay MD [address] [place] [address] [place] [address] documented as of this encounter Goals Goal [...] syndrome (HCC) Sicca syndrome Neck pain Cervicalgia Trochanteric bursitis of right hip Enthesopathy of hip region Immunocompromised patient (HCC) Unspecified immunity deficiency Therapeutic drug monitoring Encounter for therapeutic drug monitoring documented in this encounter Care Teams Schedule Manager Relationship Specialty Start Date End Date Julisa Kerr MD 100 [place] [address] PCP - General 02/22/11 Jessica Cortes MD 651 [place] [address] Internal Medicine-Rheumatology 04/26/16 documented as of this encounter
--- OUTSIDE RECORDS SUMMARY | 2024-08-22 21:49 | XMS_ITS | Encounter Summary ---
Author Organization [facility] [place] [address] Care Team Providers Care Supervisor [address] Name Role Phone Julisa Kerr MD Primary Care Provider [phone] Jessica Cortes MD Unavailable [phone] Encounter Details Date Type Department Care Team (Latest Contact Info) Description 03/09/2020 Travel Social History Tobacco Use Types Packs/Day [...] Info) Description 08/31/2024 8:30 AM EST Appointment [place] [address] [place] [address] 10/25/2024 10:45 AM EST Office Visit [facility] RHEUMATOLOGY [facility] [address] [place] [address] Jessica Cortes MD [address] [facility] [address] [place] [address] 01/25/2025 9:00 AM EDT Appointment [place] [address] [place] [address] 05/09/2025 11:00 AM EDT Appointment [place] [address] [place] [address] 05/09/2025 11:15 AM EDT Appointment [place] [address] [place] [address] Susana Garay MD [address] [place] [address] [address] [place] [id number] documented as of this encounter Goals Goal Patient Goal Type Associated Problems Recent Progress Patient-Stated? 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, RN documented as of this encounter Visit Diagnoses Not on filedocumented in this encounter Care Teams Supervisor [address] Relationship Specialty Start Date End Date Julisa Kerr MD 100 [place] [address] PCP - General 02/22/11 Jessica Cortes MD [address] [place] [address] Internal Medicine-Rheumatology 04/26/16 documented as of this encounter
--- OUTSIDE RECORDS SUMMARY | 2024-08-22 21:49 | XMS_ITS | Encounter Summary ---
Author Organization [place] [address] Care Team Providers Care Deli/Bakery Associate Name Role Phone Julisa Kerr MD Primary Care Provider [phone] Jessica Cortes MD Unavailable [phone] Reason for Visit * Reason Onset Date Comments Appointment Needed 10/20/2019 Encounter Details Date Type Department Care Team (Late st Contact Info) Description 10/20/2019 Telephone [facility] 651 [facility] Building [address] [place] [address] Jessica Cortes MD [address] [address] Appointment Needed Social History Tobacco Use Types [...] No 10/01/2018 2:11 PM EST Gina Carranza JARROD * Does this person have serious difficulty walking or climbing stairs? Answer Date of Assessment Author No 10/01/2018 2:11 PM EST Gina Carranza JARROD * Does this person have difficulty dressing or bathing? Answer Date of Assessment Author No 10/01/2018 2:11 PM EST Gina Carranza Beatriz JARROD * Because of a physical, mental or emotional condition, does this person have difficulty doing errands alone such as visiting a doctor's office or shopping? Answer Date of Assessment Author No 10/01/2018 2:11 PM EST Gina Carranza JARROD documented as of this encounter Mental Status * Because of a physical, mental or emotional condition, does this person have serious difficulty concentrating, remembering or making decisions? Answer Entry Date Author No 10/01/2018 2:11 PM EST Gina Carranza Beatriz JARROD documented in this encounter Miscellaneous Notes * Telephone Encounter - Jessie Bryant - 10/20/2019 4:21 PM EST Pt called, said we tried to call her back. * Telephone Encounter - Jessie Bryant - 10/20/2019 3:45 PM EST Pt LM on to [facility] with Dr Cortes. documented in this encounter Plan of Treatment Upcoming Encounters Date Type Department Care Team (Late st Contact Info) Description 08/31/2024 8:30 AM EST Appointment [facility] [address] [place] [place] [address] 10/25/2024 10:45 AM EST Office Visit [facility] RHEUMATOLOGY [facility] [address] [facility] [address] [place] [address] Jessica Cortes MD [address] [facility] Building [address] [place] [address] 01/25/2025 9:00 AM EDT Appointment [address] [place] [address] 05/09/2025 11:00 AM EDT Appointment [address] [place] [address] 05/09/2025 11:15 AM EDT Appointment [address] [place] [address] Susana Garay MD [address] [place] [address] [address] [place] [id number] documented as of this encounter Goals Goal Patient Goal Type Associated Problems Recent Progress Patient-Stated? 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 RN documented as of this encounter Visit Diagnoses Not on filedocumented in this encounter Care Teams Deli/Bakery Associate Relationship Specialty Start Date End Date Julisa Kerr MD 100 [place] [address] PCP - General 02/22/11 Jessica Cortes MD 651 [facility] 19 [place] [address] Internal Medicine-Rheumatology 04/26/16 documented as of this encounter
--- OUTSIDE RECORDS SUMMARY | 2024-08-22 21:49 | XMS_ITS | Encounter Summary ---
Author Organization [place] [address] Care Team Providers Care Assault Amphibious Vehicle Officer Name Role Phone Julisa Kerr MD Primary Care Provider [phone] Jessica Cortes MD Unavailable [phone] Reason for Visit * Reason Onset Date Comments Medication Refill 03/10/2020 Encounter Details Date Type Department Care Team (Late st Contact Info) Description 03/10/[address] [facility] 100 [place] [address] Julisa Kerr MD 100 [place] [address] Medication Refill Social History Tobacco Use Types [...] as needed. 60 Tab 2 03/10/2020 07/27/2020 sertraline (ZOLOFT) 50 mg Oral TabletIndications: Reactive depression TAKE 1/2 TABLET BY MOUTH DAILY FOR 7 DAYS, THEN 1 TABLET BY MOUTH THEREAFTER. 90 Tab 2 03/10/2020 01/23/2021 documented in this encounter Plan of Treatment Upcoming Encounters Date Type Department Care Team (Late st Contact Info) Description 08/31/2024 8:30 AM EST Appointment [facility] [address] [place] [address] 10/25/2024 10:45 AM EST Office Visit [facility] RHEUMATOLOGY [facility] [address] [facility] [address] [place] [address] Jessica Cortes MD 651 [facility] 19 [place] [address] 01/25/2025 9:00 AM EDT Appointment [place] [address] [place] [address] 05/09/2025 11:00 AM EDT Appointment [place] [address] [place] [address] 05/09/2025 11:15 AM EDT Appointment [place] [address] [place] [address] Susana Garay MD [address] [place] [address] [place], [place] [id number] documented as of this encounter Goals Goal Patient Goal Type Associated Problems Recent Progress Patient-Stated? Author Maintain a healthy diet, exercise regularly and maintain an ideal body weight General Porsche Ashley RN documented as of this encounter Visit Diagnoses Diagnosis Reactive depression Dysthymic disorder Anxiety Anxiety state, unspecified documented in this encounter Discontinued Medications Medication Sig Discontinue Reason Start Date End Da te sertraline (ZOLOFT) 50 mg Oral TabletIndications:Reacti ve depression TAKE 1/2 TABLET BY MOUTH DAILY FOR 7 DAYS, THEN 1 TABLET BY MOUTH THEREAFTER. Reorder 12/27/2019 03/10/2020 busPIRone (BUSPAR) 10 mg Oral TabletIndications:Anxiet y TAKE 1 TABLET BY MOUTH TWICE A DAY NEEDED Reorder 11/23/2019 03/10/2020 documented as of this encounter Care Teams Assault Amphibious Vehicle Officer Relationship Specialty Start Date End Date Julisa Kerr MD 100 [place] [address] PCP - General 02/22/11 Jessica Cortes MD [address] [address] Internal Medicine-Rheumatology 04/26/16 documented as of this encounter
--- OUTSIDE RECORDS SUMMARY | 2024-08-22 21:49 | XMS_ITS | Encounter Summary ---
Author Organization [place] [address] Care Team Providers Care Client Relationship Manager Name Role Phone Julisa Kerr MD Primary Care Provider [phone] Jessica Cortes MD Unavailable [phone] Reason for Visit * Reason Comments Medication Refill Encounter Details Date Type Department Care Team (Late st Contact Info) Description 12/27/2019 Refill [facility] 100 [place] [address] Jhon Peña APRN 100 [place], [place] [id number] Medication Refill Social History Tobacco Use Types [...] CarranzaGina JARROD * Does this person have serious difficulty walking or climbing stairs? Answer Date of Assessment Author No 10/01/2018 2:11 PM Sol Paradacharly Henderson JARROD * Does this person have difficulty dressing or bathing? Answer Date of Assessment Author No 10/01/2018 2:11 PM MANUEL Carranza Gina Henderson JARROD * Because of a physical, mental or emotional condition, does this person have difficulty doing errands alone such as visiting a doctor's office or shopping? Answer Date of Assessment Author No 10/01/2018 2:11 PM MANUEL Carranza Gina [place] JARROD documented as of this encounter Mental Status * Because of a physical, mental or emotional condition, does this person have serious difficulty concentrating, remembering or making decisions? Answer Entry Date Author No 10/01/2018 2:11 PM MANUEL CarranzaGina JARROD documented in this encounter Ordered Prescriptions Prescription Sig Dispense Quantity Refills Last Filled Start Date End Date sertraline (ZOLOFT) 50 mg Oral TabletIndications: Reactive depression TAKE 1/2 TABLET BY MOUTH DAILY FOR 7 DAYS, THEN 1 TABLET BY MOUTH THEREAFTER. 90 Tab 12/27/2019 03/10/2020 documented in this encounter Miscellaneous Notes * Telephone Encounter - Kasandra Martinez CPhT - 12/27/2019 3:27 PM EDT Medication Refill Protocol passed. Yvonne Action: Patient given refills to noted follow-up date by provider or protocol if no follow-up date noted documented in this encounter Plan of Treatment Upcoming Encounters Date Type Department Care Team (Late st Contact Info) Description 08/31/2024 8:30 AM EST Appointment [facility] [address] [place] [address] 10/25/2024 10:45 AM EST Office Visit [facility] RHEUMATOLOGY [facility] [address] [place] [facility] [address] [place] [address] Jessica Cortes MD [address] [address] 01/25/2025 9:00 AM EDT Appointment [place] [address] [place] [address] 05/09/2025 11:00 AM EDT [address]ointment [address] [place] [address] 05/09/2025 11:15 AM EDT [address]ointment [address] [place] [address] Susana Garay MD [address] [place] [address] [place] [address] documented as of this encounter Goals Goal Patient Goal Type Associated Problems Recent Progress Patient-Stated? 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, RN documented as of this encounter Visit Diagnoses Diagnosis Reactive depression Dysthymic disorder documented in this encounter Discontinued Medications Medication Sig Discontinue Reason Start Date End Da te sertraline (ZOLOFT) 50 mg Oral TabletIndications:Reacti ve depression Take 1/2 tablet by mouth daily for 7 days, then 1 tablet by mouth thereafter. 09/20/2019 12/27/2019 documented as of this encounter Care Teams Client Relationship Manager Relationship Specialty Start Date End Date Julisa Kerr MD 100 [place] [address] PCP - General 02/22/11 Jessica Cortes MD [address] [address] Internal Medicine-Rheumatology 04/26/16 documented as of this encounter
--- OUTSIDE RECORDS SUMMARY | 2024-08-22 21:49 | XMS_ITS | Encounter Summary ---
Author Organization [place] [address] Care Team Providers Care Photographic Artist Name Role Phone Julisa Kerr MD Primary Care Provider [phone] Jessica Cortes MD Unavailable [phone] Reason for Visit * Reason Onset Date Comments Other 10/22/2019 Encounter Details Date Type Department Care Team (Late st Contact Info) Description 10/22/2019 Telephone [facility] 100 [place] [address] Julisa Kerr MD 100 [place] [address] Other Social History Tobacco Use Types Packs/Day [...] Author No 10/01/2018 2:11 PM Gina Parada RMCarlene * Does this person have serious difficulty walking or climbing stairs? Answer Date of Assessment Author No 10/01/2018 2:11 PM MANUEL Gina Carranza JARROD * Does this person have difficulty dressing or bathing? Answer Date of Assessment Author No 10/01/2018 2:11 PM Gina Parada JARROD * Because of a physical, mental or emotional condition, does this person have difficulty doing errands alone such as visiting a doctor's office or shopping? Answer Date of Assessment Author No 10/01/2018 2:11 PM MANUEL Gina Carranza RMCarlene documented as of this encounter Mental Status * Because of a physical, mental or emotional condition, does this person have serious difficulty concentrating, remembering or making decisions? Answer Entry Date Author No 10/01/2018 2:11 PM Gina Parada RMCarlene documented in this encounter Ordered Prescriptions Prescription Sig Dispense Quantity Refills Last Filled Start Date End Date valACYclovir (VALTREX) 1 gram Oral TabletIndications:H erpes labialis Take 2 Tabs by mouth 2 times daily for 2 days. Per flare of cold sore 12 Tab 1 10/22/2019 10/18/2020 documented in this encounter Miscellaneous Notes * Telephone Encounter - Gabrielle Starr - 10/22/2019 10:21 AM EST Patient wanted to see if could get a refill of Acyclovir for her cold sores. documented in this encounter Plan of Treatment Upcoming Encounters Date Type Department Care Team (Late st Contact Info) Description 08/31/2024 8:30 AM EST Appointment [facility] [address] [place] [address] 10/25/2024 10:45 AM EST Office Visit [facility]G RHEUMATOLOGY [facility] [address] [place] [facility] [address] [place] [address] Jessica Cortes MD [address] [address] 01/25/2025 9:00 AM EDT Appointment [place] [address] [place] [address] 05/09/2025 11:00 AM EDT Appointment [place] [address] [place] [address] 05/09/2025 11:15 AM EDT Appointment [place] [address] [place] [address] Susana Garay MD [address] [place] [address] [place] [address] documented as of this encounter Goals Goal [...] days. Per flare of cold sore Reorder 01/09/2019 10/22/2019 documented as of this encounter Care Teams Photographic Artist Relationship Specialty Start Date End Date Julisa Kerr MD 100 [place] [address] PCP - General 02/22/11 Jessica Cortes MD [address] [address] Internal Medicine-Rheumatology 04/26/16 documented as of this encounter
--- OUTSIDE RECORDS SUMMARY | 2024-08-22 21:49 | XMS_ITS | Encounter Summary ---
Author [place] [address] Care Team Providers Care Silk Screen Printer Machine Name Role Phone Julisa Kerr MD Primary Care Provider [phone] Jessica Cortes MD Unavailable [phone] Reason for Visit * Reason Comments Medication Refill Skin Condition place on face, itchi ng Ear Fullness Encounter Details Date Type Department Care Team (Late st Contact Info) Description 03/09/2020 1:00 PM EDT Office Visit [facility] [address] [place] [address] Julisa Kerr MD [address] [place] [address] Tinea corporis (Primary Dx); Seasonal allergic rhinitis, unspecified trigger Social History Tobacco Use Types Packs/Day Years [...] Sign Reading Time Taken Comments Blood Pressure 128/82 03/09/2020 1:02 PM EDT Pulse - - Temperature 37.1 ??C (98.8 ??F) 03/09/2020 1:02 PM ED T Respiratory Rate - - Oxygen Saturation - - Inhaled Oxygen Concentration - - Weight 60.8 kg (134 lb) 03/09/2020 1:02 PM EDT Height 157.5 cm (5' 2 ) 03/09/2020 1:02 PM EDT Body Mass Index 24.51 03/09/2020 1:02 PM EDT documented in this encounter Functional [...] Date Author No 03/09/2020 1:02 PM EDT Albni Levy MA documented in this encounter Ordered Prescriptions Prescription Sig Dispense Quantity Refills Last Filled Start Date End Date terbinafine HCL (LAMISIL) 250 mg Oral TabletIndications:T inea corporis Take 1 Tab by mouth daily for 14 days. 14 Tab 03/09/2020 03/16/2020 documented in this encounter Progress Notes * Julisa Kerr MD - 03/09/2020 1:00 PM EDT Vitals: 03/09/20 1302 BP: 128/82 Temp: 98.8 ??F (37.1 ??C) Weight: 134 lb (60.8 kg) Height: 5' 2 (1.575 m) SUBJECTIVE: Chief Complaint Patient presents with ??? Medication Refill ??? Skin Condition place on face, itching ??? Ear Fullness HPI: Medication Refill This is a new problem. The current episode started today. The problem occurs constantly. The problem has been unchanged. Associated symptoms include arthralgias, joint swelling and a rash. Pertinent negatives include no abdominal pain, coughing, fatigue, fever or nausea. Cellulitis This is a new problem. The current episode started 1 to 4 weeks ago. The problem has been waxing and waning since onset. Associated symptoms include rhinorrhea. Pertinent negatives include no cough, diarrhea, fatigue or fever. Pt is here today for medication refills and for a place on her face that is itching. Pt would also like to see about getting methotrexate prescribed through us. Pt also thinks she has fluid in her ears Review of Systems Constitutional: Negative for fatigue and fever. HENT: Positive for postnasal drip, rhinorrhea and sneezing. Respiratory: Negative for cough and wheezing. Gastrointestinal: Negative for abdominal pain, diarrhea and nausea. Genitourinary: Negative. Musculoskeletal: Positive for arthralgias and joint swelling. Skin: Positive for rash. Neurological: Negative. Psychiatric/Behavioral: Negative. OBJECTIVE: Physical Exam Vitals signs and nursing note reviewed. HENT: Head: Normocephalic. Cardiovascular: Rate and Rhythm: Normal rate. Heart sounds: No murmur. Pulmonary: Effort: Pulmonary effort is normal. Breath sounds: No wheezing. Abdominal: Palpations: Abdomen is soft. Tenderness: There is no abdominal tenderness. Skin: Findings: Rash present. Neurological: General: No focal deficit present. Mental Status: She is alert. Psychiatric: Mood and Affect: Mood normal. Assessment Diagnoses and all orders for this visit: Tinea corporis - terbinafine HCL (LAMISIL) 250 mg Oral Tablet; Take 1 Tab by mouth daily for 14 days. Dispense: 14Tab; Refill: 0 Seasonal allergic rhinitis, unspecified trigger - methylPREDNISolone acetate (DEPO-Medrol) injection 80 mg documented in this encounter Plan of Treatment Upcoming Encounters Date Type Department Care Team (Late st Contact Info) Description 08/31/2024 8:30 AM EST Appointment [address] [address] 10/25/2024 10:45 AM EST Office Visit [facility] [address] [place] [address] Jessica Cortes MD [address] [place] [address] 01/25/2025 9:00 AM EDT Appointment [address] [address] 05/09/2025 11:00 AM EDT Appointment [address] [address] 05/09/2025 11:15 AM EDT Appointment [address] [address] Susana Garay MD [address] [place] [address] documented as of this encounter Goals Goal Patient Goal Type Associated Problems Recent Progress Patient-Stated? 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, RN documented as of this encounter Visit Diagnoses Diagnosis Tinea corporis- Primary Dermatophytosis of the body Seasonal allergic rhinitis, unspecified trigger documented in this encounter Administered Medications Inactive Administered Medications - up to 1 most recent administrations Medication Order MAR Action Action Date Dose Rate Site methylPREDNISolone acetate (DEPO-Medrol) injection 80 mg 80 mg, Intramuscular, ONCE, 1 dose, On Ox[place] 03/09/20 at 1315, Dx: 1. 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 DELETE- Entered in Error 11/22/2019 03/09/2020 documented as of this encounter Care Teams Silk Screen Printer Machine Relationship Specialty Start Date End Date Julisa Kerr MD 100 [place] [address] PCP - General 02/22/11 Jessica Cortes MD 651 [facility] [address] [place] [id number] Internal Medicine-Rheumatology 04/26/16 documented as of this encounter
--- OUTSIDE RECORDS SUMMARY | 2024-08-22 21:49 | XMS_ITS | Encounter Summary ---
Author Organization [place] [address] Care Team Providers Care Crusher Plant Operator Name Role Phone Julisa Kerr MD Primary Care Provider Jessica Cortes MD Unavailable [phone] Reason for Visit * Reason Comments Medication Refill Encounter Details Date Type Department Care Team (Late st Contact Info) Description 10/22/2019 Refill [facility] 100 [place] [address] Jhon Peña APRN 100 [place], [place] [id number] Medication Refill Social History Tobacco Use Types [...] End Date busPIRone (BUSPAR) 10 mg Oral TabletIndications:A nxiety TAKE 1 TAB BY MOUTH 2 TIMES DAILY NEEDED. 60 Tab 10/22/2019 11/23/2019 documented in this encounter Miscellaneous Notes * Telephone Encounter - Yadira Sheikh RMA - 10/22/2019 8:55 AM EST Pt not seen at this practice. documented in this encounter Plan of Treatment Upcoming Encounters Date Type Department Care Team (Late st Contact Info) Description 08/31/2024 8:30 AM EST Appointment [facility] [address] [place] [address] 10/25/2024 10:45 AM EST Office Visit [facility] [address] [facility] [address] [place] [address] Jessica Cortes MD [address] [facility] Building 19 [place] [address] 01/25/2025 9:00 AM EDT Appointment [place] [address] [place] [address] 05/09/2025 11:00 AM EDT [address]ointment [address] [place] [address] 05/09/2025 11:15 AM EDT Appointment [facility] [address] [place] [address] Susana Garay MD [address] [place] [address] [place] [address] documented as of this encounter Goals Goal [...] by mouth 2 times daily as needed. 09/20/2019 10/22/2019 documented as of this encounter Care Teams Crusher Plant Operator Relationship Specialty Start Date End Date Julisa Kerr MD [address] [place], [place] [phone] PCP - General 02/22/11 Jessica Cortes MD [address] [place] [id number] Internal Medicine-Rheumatology 04/26/16 documented as of this encounter
--- OUTSIDE RECORDS SUMMARY | 2024-08-22 21:49 | XMS_ITS | Encounter Summary ---
Author Organization [place] [address] Care Team Providers Care Fire Prevention Officer Name Role Phone Julisa Kerr MD Primary Care Provider [phone] Jessica Cortes MD Unavailable [phone] Reason for Visit * Reason Comments Medication Refill Encounter Details Date Type Department Care Team (Late st Contact Info) Description 03/16/2020 Refill [facility] 100 [place] [address] Julisa Kerr MD 100 [place] [address] Medication Refill Social History Tobacco Use Types [...] Date terbinafine HCL (LAMISIL) 250 mg Oral TabletIndications: Tinea corporis TAKE 1 TABLET BY MOUTH EVERY DAY FOR 2 WEEKS 14 Tab 03/16/2020 02/12/2022 documented in this encounter Plan of Treatment Upcoming Encounters Date Type Department Care Team (Late st Contact Info) Description 08/31/2024 8:30 AM EST Appointment [facility] [address] [place] [address] 10/25/2024 10:45 AM EST Office Visit [facility] [address] [facility] [address] [place] [address] Jessica Cortes MD [address] [facility] Building 19 [place] [address] 01/25/2025 9:00 AM EDT Appointment [facility] [place] [address] 05/09/2025 11:00 AM EDT Appointment [facility] [place] [address] 05/09/2025 11:15 AM EDT Appointment [facility] [place] [address] Susana Garay MD [address] [place] [address] [address] [place] [id number] documented as of this encounter Goals Goal Patient Goal Type Associated Problems Recent Progress Patient-Stated? Author Maintain a healthy diet, exercise regularly and maintain an ideal body weight General Porsche Ashley, RN documented as of this encounter Visit Diagnoses Diagnosis Tinea corporis Dermatophytosis of the body documented in this encounter Discontinued Medications Medication Sig Discontinue Reason Start Date End Da te terbinafine HCL (LAMISIL) 250 mg Oral TabletIndications:Tinea corporis Take 1 Tab by mouth daily for 14 days. 03/09/2020 03/16/2020 documented as of this encounter Care Teams Fire Prevention Officer Relationship Specialty Start Date End Date Julisa Kerr MD 100 [place] [address] PCP - General 02/22/11 Jessica Cortes MD [address] [id number] Internal Medicine-Rheumatology 04/26/16 documented as of this encounter
--- OUTSIDE RECORDS SUMMARY | 2024-08-22 21:49 | XMS_ITS | Encounter Summary ---
Author Organization [place] [address] Care Team Providers Care Recovery Room Nurse Name Role Phone Julisa Kerr MD Primary Care Provider [phone] Jessica Cortes MD Unavailable [phone] Reason for Visit * Reason Comments Medication Refill Encounter Details Date Type Department Care Team (Late st Contact Info) Description 03/23/2020 Refill [facility] 651 [facility] Building [address] [place] [address] Jessica Cortes MD [address] [place] [phone] Medication Refill Social History Tobacco Use Types [...] Refills Last Filled Start Date End Date KEVZARA 200 mg/1.14 mL SubQ Pen InjectorIndication s:Rheumatoid arthritis involving multiple sites with positive rheumatoid factor (HCC) INJECT 1 PEN UNDER THE SKIN EVERY 2 WEEKS 2.28 mL 2 03/27/2020 11/22/2020 documented in this encounter Plan of Treatment Upcoming Encounters Date Type Department Care Team (Late st Contact Info) Description 08/31/2024 8:[address] [facility] [address] [place] [address] 10/25/2024 10:45 AM EST Office Visit [facility] [address] [facility] [address] [place] [address] Jessica Cortes MD [address] [facility] Building 19 [place] [address] 01/25/2025 9:00 AM EDT Appointment [place] [address] [address] [place], [place] [phone] 05/09/2025 11:00 AM EDT [address]ointment [address] [place] [address] 05/09/2025 11:15 AM EDT Appointment [place] [address] [place] [address] Susana Garay MD [address] [place] [address] [place] [address] documented as of this encounter Goals Goal [...] syringe under the skin every 14 days. 12/23/2019 03/27/2020 documented as of this encounter Care Teams Recovery Room Nurse Relationship Specialty Start Date End Date Julisa Kerr MD 100 [place], [place] [phone] PCP - General 02/22/11 Jessica Cortes MD 651 [facility] 19 [place], [place] [phone] Internal Medicine-Rheumatology 04/26/16 documented as of this encounter
--- OUTSIDE RECORDS SUMMARY | 2024-08-22 21:49 | XMS_ITS | Encounter Summary ---
Author Organization [place] [address] Care Team Providers Care Toddler Nanny Name Role Phone Julisa Kerr MD Primary Care Provider [phone] Jessica Cortes MD Unavailable [phone] Reason for Visit * Reason Onset Date Comments Symptom Call 04/26/2020 urgent urination and bladder pressure Encounter Details Date Type Department Care Team (Late st Contact Info) Description 04/26/2020 Telephone [facility] 100 [place] [address] Julisa Kerr MD 100 [place] [address] Symptom Call (urgent urination and bladder pressure) Social History Tobacco Use Types Packs/Day Years [...] Refills Last Filled Start Date End Date nitrofurantoin, macrocrystal-monohy drate, (MACROBID) 100 mg Oral Capsule Take 1 Cap by mouth 2 times daily for 10 days. 20 Cap 04/26/2020 05/06/2020 documented in this encounter Miscellaneous Notes * Telephone Encounter - Ana Bone - 04/26/2020 3:24 PM EDT Symptoms Call Who is reporting the symptoms: Patient What symptom(s) is the patient experiencing: urgent urination, bladder pressure How long have symptoms been present: 3 days Has the patient been seen for this: No If no, was an appointment/E-Visit offered/suggested? Yes, send message first-- Has the patient tried anything to relieve the symptoms and did it help: Yes lots of water and cranberry juice If pain, what level on scale 1-10 (10 being the greatest): 7 Desired Outcome: Rx, med for UTI Pharmacy & Location:[facility] [address] [place] [address] [address] [facility] [phone] Additional Notes: documented in this encounter Plan of Treatment Upcoming Encounters Date Type Department Care Team (Late st Contact Info) Description 08/31/2024 8:30 AM EST Appointment [address] [address] 10/25/2024 10:45 AM EST Office Visit [facility] [address] [place] [address] Jessica Cortes MD [address] [place] [address] 01/25/2025 9:00 AM EDT Appointment [address] [address] 05/09/2025 11:00 AM EDT Appointment [address] [address] 05/09/2025 11:15 AM EDT Appointment [address] [address] Susana Garay MD [address] [place] [address] documented as of this encounter Goals Goal Patient Goal Type Associated Problems Recent Progress Patient-Stated? Author Maintain a healthy diet, exercise regularly and maintain an ideal body weight General Porsche Ashley, RN documented as of this encounter Visit Diagnoses Not on filedocumented in this encounter Care Teams Toddler Nanny Relationship Specialty Start Date End Date Julisa Kerr MD 100 [place] [address] PCP - General 02/22/11 Jessica Cortes MD [address] [place] [address] Internal Medicine-Rheumatology 04/26/16 documented as of this encounter
--- OUTSIDE RECORDS SUMMARY | 2024-08-22 21:49 | XMS_ITS | Encounter Summary ---
Author Organization [place] [address] Care Team Providers Care Transit Planning Director Name Role Phone uJlisa Kerr MD Primary Care Provider [phone] Jessica Cortes MD Unavailable [phone] Reason for Visit * Reason Comments Annual Exam Anxiety Encounter Details Date Type Department Care Team (Late st Contact Info) Description 09/20/2019 11:00 AM EST Office Visit [facility] [address] [place] [address] Jhon Peña, JOSE [address] [place], [place] [id number] Annual physical exam (Primary Dx); Anxiety; Reactive depression; Rheumatoid arthritis involving multiple sites with positive rheumatoid factor (HCC) Social History Tobacco Use Types Packs/Day Years Used Date Smoking Tobacco: Never Smokeless Tobacco: Never Tobacco Cessation:Counseling Given: No Alcohol Use Standard Drinks/Week Comments Yes 0 [...] Reading Time Taken Comments Blood Pressure 122/78 09/20/2019 11:05 AM EST Pulse - - Temperature - - Respiratory Rate - - Oxygen Saturation - - Inhaled Oxygen Concentration - - Weight 60.3 kg (133 lb) 09/20/2019 11:05 AM EST Height 157.5 cm (5' 2 ) 09/20/2019 11:05 AM EST Body Mass Index 24.33 09/20/2019 11:05 AM EST documented in this encounter Functional [...] (ZOLOFT) 50 mg Oral TabletIndications: Reactive depression Take 1/2 tablet by mouth daily for 7 days, then 1 tablet by mouth thereafter. 30 Tab 2 09/20/2019 12/27/2019 busPIRone (BUSPAR) 10 mg Oral TabletIndications: Anxiety Take 1 Tab by mouth 2 times daily as needed. 60 Tab 09/20/2019 10/22/2019 documented in this encounter Progress Notes * Jhon Peña APRN - 09/20/2019 11:00 AM EST Vitals: 09/20/19 1105 BP: 122/78 Weight: 133 lb (60.3 kg) Height: 5' 2 (1.575 m) SUBJECTIVE: Chief Complaint Patient presents with ??? Annual Exam ??? Anxiety HPI: Well Adult: Subjective Ms. Newsome is a 48 y.o. female here for an annual wellness visit. Diet: normal Exercise: normal Activities of Daily Living: Functional Level: Self-care ADL Limitations: none Social Interaction Screen: Do you have concerns about issues that may impact social interaction such as developmental or behavioral/mental health conditions? no Health Maintenance Due Topic Date Due ??? Annual Wellness Exam 12/24/2018 Health Maintenance Topic Date Due ??? Annual Wellness Exam 12/24/2018 ??? Cervical Cancer Screening 12/24/2020 ??? Influenza [...] AND BSO 2001 Allergies Allergen Reactions ??? Enbrel [Etanercept] Itching ??? Humira [Adalimumab] Itching ??? Mobic [Meloxicam] Hives ??? Xeljanz [Tofacitinib] Itching Current Outpatient Medications on File Prior to Visit Medication Sig Dispense Refill ??? amitriptyline (ELAVIL) 25 mg Oral Tablet TAKE 1 TABLET BY MOUTH EVERY DAY AT NIGHT 30 Tab 2 ??? cyanocobalamin 1,000 mcg/mL Inj Solution INJECT 1ML INTO THE MUSCLE EVERY MONTH 1 mL 3 ??? fluticasone (FLONASE) 50 mcg/actuation Nasl [place], Suspension 1 [place] by Nasal route daily. 1 Bottle 2 ??? VENTOLIN HFA 90 mcg/actuation Inhl [...] No results found for this visit on 09/20/19. Patient Care Team: Julisa Kerr MD as PCP - General Jessica Cortes MD (Internal Medicine-Rheumatology) Lab Results Component Value Date WBC 8.1 03/03/2019 HGB 14.0 03/03/2019 HCT 43.5 03/03/2019 PLT 264 03/03/2019 CHOLESTEROL 163 11/11/2018 TRIG 107 11/11/2018 HDL 49 11/11/2018 LDLCALC 93 11/11/2018 ALT 16 03/03/2019 AST 18 03/03/2019 NA 131 (L) 03/03/2019 K 3.7 03/03/2019 CL 101 03/03/2019 CREATININE 0.75 03/03/2019 BUN 8 03/03/2019 CO2 24 03/03/2019 TSH 1.350 09/20/2015 GLU 94 03/03/2019 HGBA1C 5.4 12/23/2018 TSHREFLEX 1.530 07/01/2017 Additional issues addressed today: Also with increased anxiety, depression over the last several months. Denies suicidal/homicidal ideation. Increased stress as is alcoholic and struggling with his health. Also son is drug addict and she fears daily he may overdose. Also working two jobs. Has not taken any medication for this prior and is not currently discussing feelings with others regularly. Review of Systems Constitutional: Negative for chills and fever. HENT: Negative for congestion, ear discharge and ear pain. Eyes: Negative for pain, discharge and itching. Respiratory: Negative for cough, shortness of breath and wheezing. Cardiovascular: Negative for chest pain and palpitations. Gastrointestinal: Negative for abdominal distention and abdominal pain. Genitourinary: Negative for difficulty urinating, dysuria and hematuria. Musculoskeletal: Negative for arthralgias, back pain and gait problem. Skin: Negative for rash and wound. Neurological: Negative for dizziness, light-headedness and headaches. Psychiatric/Behavioral: Positive for dysphoric mood and sleep disturbance. Negative for self-injuryand suicidal ideas. The patient is nervous/anxious. OBJECTIVE: Physical Exam Constitutional: General: She [...] equal, round, and reactive to light. Neck: Musculoskeletal: Normal range of motion and neck supple. Vascular: No JVD. Cardiovascular: Rate and Rhythm: Normal rate and regular rhythm. Heart sounds: Normal heart sounds. No murmur. Pulmonary: Effort: Pulmonary effort is normal. No respiratory distress. Breath sounds: Normal breath sounds. No wheezing or rales. Chest: Chest wall: No tenderness. Abdominal: General: Bowel sounds are normal. There is no distension. Palpations: Abdomen is soft. There is no mass. Tenderness: There is no tenderness. There is no guarding or rebound. Musculoskeletal: Normal range of motion. Skin: General: Skin is warm and dry. Findings: No rash. Neurological: Mental Status: She is alert and oriented to person, place, and time. Psychiatric: Behavior: Behavior normal. Thought Content: Thought content normal. Judgment: Judgment normal. Assessment Diagnoses and all orders for this visit: Annual physical exam Anxiety Comments: -Declines referral to counseling at this time. Instructed to call back at any time for referral. Orders: - busPIRone (BUSPAR) 10 mg Oral Tablet; Take 1 Tab by mouth 2 times daily as needed. Dispense: 60 Tab; Refill: 0 Reactive depression Comments: -Instructed to seek immediate medical attention/call 911 if develops suicidal/homicidal ideation. Orders: - sertraline (ZOLOFT) 50 mg Oral Tablet; Take 1/2 tablet by mouth daily for 7 days, then 1 tablet by mouth thereafter. Dispense: 30 Tab; Refill: 2 Rheumatoid arthritis involving multiple sites with positive rheumatoid factor (HCC) Comments: -Stable. Follows with rheumatology. documented in this encounter Miscellaneous Notes * Patient Instructions - Jhon Peña APRN - 09/20/2019 11:00 AM EST Images from the original note were not included. Patient Education Preventive Care 40-64 Years Old, Female Preventive care refers to visits with your health care provider and lifestyle choices that can promote health and wellness. This includes: ?? A yearly physical exam. This may also be called an annual well check. ?? Regular dental visits and eye exams. ?? Immunizations. ?? Screening for certain conditions. ?? Healthy lifestyle choices, such as eating a healthy diet, getting regular exercise, not using drugs or products that contain nicotine and tobacco, and limiting alcohol use. What can I expect for my preventive care visit? Physical exam Your health care provider will check your: ?? Height and weight. This may be used to calculate body mass index (BMI), which tells if you are at a healthy weight. ?? Heart rate and blood pressure. ?? Skin for abnormal spots. Counseling Your health care provider may ask you questions about your: ?? Alcohol, tobacco, and drug use. ?? Emotional well-being. ?? Home and relationship well-being. ?? Sexual activity. ?? Eating habits. ?? Work and work environment. ?? Method of control. ?? Menstrual cycle. ?? history. What immunizations do I need? Influenza (flu) vaccine ?? This is recommended every year. Tetanus, diphtheria, and pertussis (Tdap) vaccine ?? You may need a Td booster every 10 years. Varicella (chickenpox) vaccine ?? You may need this if you have not been vaccinated. Zoster (shingles) vaccine ?? You may need this after age 60. Measles, mumps, and rubella (MMR) vaccine ?? You may need at least one dose of MMR if you were born in 1957 or later. You may also need a second dose. Pneumococcal conjugate (PCV13) vaccine ?? You may need this if you have certain conditions and were not previously vaccinated. Pneumococcal polysaccharide (PPSV23) vaccine ?? You may need one or two doses if you smoke cigarettes or if you have certain conditions. Meningococcal conjugate (MenACWY) vaccine ?? You may need this if you have certain conditions. Hepatitis A vaccine ?? You may need this if you have certain conditions or if you travel or work in places where you may be exposed to hepatitis A. Hepatitis B vaccine ?? You may need this if you have certain conditions or if you travel or work in places where you may be exposed to hepatitis B. Haemophilus influenzae type b (Hib) vaccine ?? You may need this if you have certain conditions. Human papillomavirus (HPV) vaccine ?? If recommended by your health care provider, you may need three doses over 6 months. You may receive vaccines as individual doses or as more than one vaccine together in one shot (combination vaccines). Talk with your health care provider about the risks and benefits of combination vaccines. What tests do I need? Blood tests ?? Lipid and cholesterol levels. These may be checked every 5 years, or more frequently if you are over 50 years old. ?? Hepatitis C test. ?? Hepatitis B test. Screening ?? Lung cancer screening. You may have this screening every year starting at age 55 if you have a [id number] history of smoking and currently smoke or have quit within the past 15 years. ?? Colorectal cancer screening. All adults should have this screening starting at age 50 and continuing until age 75. Your health care provider may recommend screening at age 45 if you are at increased risk. You will have tests every 1-10 years, depending on your results and the type of screening test. ?? Diabetes screening. This is done by checking your blood sugar (glucose) after you have not eatenfor a while (fasting). You may have this done every 1-3 years. ?? Mammogram. This may be done every 1-2 years. Talk with your health care provider about when you should start having regular mammograms. This may depend on whether you have a family history of breast cancer. ?? BRCA-related cancer screening. This may be done if you have a family history of breast, ovarian,tubal, or peritoneal cancers. ?? Pelvic exam and Pap test. This may be done every 3 years starting at age 21. Starting at age 30,this may be done every 5 years if you have a Pap test in combination with an HPV test. Other tests ?? Sexually transmitted disease (STD) testing. ?? Bone density scan. This is done to screen for osteoporosis. You may have this scan if you are athigh risk for osteoporosis. Follow these instructions at home: Eating and drinking ?? Eat a diet that includes fresh fruits and vegetables, whole grains, lean protein, and low-fat dairy. ?? Take vitamin and mineral supplements as recommended by your health care provider. ?? Do not drink alcohol if: ? Your health care provider tells you not to drink. ? You are , may be , or are planning to become . ?? If you drink alcohol: ? Limit how much you have to 0-1 drink a day. ? Be aware of how much alcohol is in your drink. In the [place] one drink equals one 12 oz bottle of beer (355 mL), one 5 oz glass of wine (148 mL), or one 1?? oz glass of hard liquor (44 mL). Lifestyle ?? Take daily care of your teeth and gums. ?? Stay active. Exercise for at least 30 minutes on 5 or more days each week. ?? Do not use any products that contain nicotine or tobacco, such as cigarettes, e-cigarettes, and chewing tobacco. If you need help quitting, ask your health care provider. ?? If you are sexually active, practice safe sex. Use a condom or other form of control (contraception) in order to prevent and STIs (sexually transmitted infections). ?? If told by your health care provider, take low-dose aspirin daily starting at age 50. What's next? ?? Visit your health care provider once a year for a well check visit. ?? Ask your health care provider how often you should have your eyes and teeth checked. ?? Stay up to date on all vaccines. This information is not intended to replace advice given to you by your health care provider. Make sure you discuss any questions you have with your health care provider. Document Released: 10/11/2016 Document Revised: 05/27/2019 Document Reviewed: 05/27/2019 [employer] Patient Education ?? 2019 [employer] documented in this encounter Plan of Treatment Upcoming Encounters Date Type Department Care Team (Late st Contact Info) Description 08/31/2024 8:30 AM EST Appointment [address] [place] [address] 10/25/2024 10:45 AM EST Office Visit [facility] [address] [place] [address] Jessica Cortes MD [address] [place] [address] 01/25/2025 9:00 AM EDT [address]ointment [address] [place] [address] 05/09/2025 11:00 AM EDT Appointment [address] [address] 05/09/2025 11:15 AM EDT Appointment [address] [address] Susana Garay MD [address] [place] [id number] documented as of this encounter Goals Goal Patient Goal Type Associated Problems Recent Progress Patient-Stated? 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, RN documented as of this encounter Visit Diagnoses Diagnosis Annual physical exam- Primary Routine general medical examination at a health care facility Anxiety Anxiety state, unspecified Reactive depression Dysthymic disorder Rheumatoid arthritis involving multiple sites with positive rheumatoid factor (HCC) documented in this encounter Discontinued Medications Medication Sig Discontinue Reason Start Date End Da te folic acid (FOLVITE) 1 mg Oral TabletIndications:Rh eumatoid arthritis involving multiple sites with positive rheumatoid factor (HCC) TAKE 1 TABLET BY MOUTH EVERY DAY Stopped by patient - ineffective 01/25/2019 09/20/2019 methotrexate 25 mg/mL Inj SolutionIndications: Rheumatoid arthritis involving multiple sites with positive rheumatoid factor (HCC) Subcutaneous (Inject under the skin) 0.8 mL every 7 days. Stopped by patient - ineffective 11/11/2018 09/20/2019 predniSONE (DELTASONE) 10 mg Oral TabletIndications:Rh eumatoid arthritis involving multiple sites with positive rheumatoid factor (HCC) Take 1 Tab by mouth daily as needed. Stopped by patient - ineffective 01/05/2018 09/20/2019 Insulin Syringe-Needle U-100 (BD INSULIN SYRINGE) 1 mL 25 gauge x 5/8 Misc SyringeIndications:R heumatoid arthritis involving multiple sites with positive rheumatoid factor (HCC) Use for MTX injection once a week Stopped by patient - ineffective 06/23/2017 09/20/2019 tofacitinib (XELJANZ XR) 11 mg Oral Tablet Sustained Release 24 hrIndications:Rheuma toid arthritis involving multiple sites with positive rheumatoid factor (HCC) Take 11 mg by mouth daily. Stopped by patient - ineffective 03/03/2019 09/20/2019 documented as of this encounter Care Teams Transit Planning Director Relationship Specialty Start Date End Date Julisa Kerr MD [address] [place] [address] PCP - General 02/22/11 Jessica Cortes MD [address] [place] [id number] Internal Medicine-Rheumatology 04/26/16 documented as of this encounter
--- OUTSIDE RECORDS SUMMARY | 2024-08-22 21:49 | XMS_ITS | Encounter Summary ---
Author Organization [place] [address] Care Team Providers Care Nurse Researcher Name Role Phone Julisa Kerr MD Primary Care Provider [phone] Jessica Cortes MD Unavailable [phone] Encounter Details Date Type Department Care Team (Latest Contact Info) Description 03/21/2020 12:00 PM EDT - 03/21/2020 11:59 PM EDT Hospital Encounter [facility] [address] [id number] Tuberculosis screening; Rheumatoid arthritis involving multiple sites with positive [...] Entry Date Author No 03/09/2020 1:02 PM EDAlbin Brennan MA documented in this encounter Medications at Time of Discharge busPIRone (BUSPAR) 10 mg Oral TabletIndication s:Anxiety Take 1 Tab by mouth 2 times daily as needed. 60 Tab 2 03/10/2020 0 methotrexate 25 mg/mL Inj SolutionIndicati ons:Rheumatoid arthritis involving multiple sites with positive rheumatoid factor (HCC) Subcutaneous (Inject under the skin) 0.6 mL every 7 days. 4 mL 1 03/21/2020 0 sarilumab (KEVZARA) 200 mg/1.14 mL SubQ Pen InjectorIndicati ons:Rheumatoid arthritis involving multiple sites with positive rheumatoid factor (HCC) Inject 1 syringe under the skin every 14 days. 2.28 mL 2 12/23/2019 0 sertraline (ZOLOFT) 50 mg Oral TabletIndication s:Reactive depression TAKE 1/2 TABLET BY MOUTH DAILY FOR 7 DAYS, THEN 1 TABLET BY MOUTH THEREAFTER. 90 Tab 2 03/10/2020 1 valACYclovir (VALTREX) 1 gram Oral TabletIndication s:Herpes labialis Take 2 Tabs by mouth 2 times daily for 2 days. Per flare of cold sore 12 Tab 1 10/22/2019 1 documented as of this encounter Discharge Disposition Disposition Code Departure Means Destination Home or Self Care documented in this encounter Plan of Treatment Upcoming Encounters Date Type Department Care Team (Late st Contact Info) Description 08/31/2024 8:30 AM EST [address]ointment [address] [place] [address] 10/25/2024 10:45 AM EST Office Visit [facility] [address] [place] [address] Jessica Cortes MD [address] [place] [address] 01/25/2025 9:00 AM EDT Appointment [address] [address] [place] [address] 05/09/2025 11:00 AM EDT Appointment [address] [address] [place] [address] 05/09/2025 11:15 AM EDT [address]ointment [address] [place] [address] Susana Garay MD [address] [place] [address] [place] [address] documented as of this encounter Goals Goal Patient Goal Type Associated Problems Recent Progress Patient-Stated? 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 RN documented as of this encounter Procedures Procedure Name Priority Date/Time Associated Diagnosis Comments QUANTIFERON TB GOLD Routine 03/21/2020 1 2:18 PM EDT Tuberculosis screening SEDIMENTATION RATE AUTOMATED Routine 03/21/2020 12:18 PM EDT Rheumatoid arthritis involving multiple sites with positive rheumatoid factor (HCC) CBC WITH DIFF Routine 03/21/2020 12:18 PM EDT Rheumatoid arthritis involving multiple sites with positive rheumatoid factor (HCC) C-REACTIVE PROTEIN Routine 03/21/2020 12 :18 PM EDT Rheumatoid arthritis involving multiple sites with positive rheumatoid factor (HCC) COMPREHENSIVE METABOLIC PANEL Routine 03/21/2020 12:18 PM EDT Rheumatoid arthritis involving multiple sites with positive rheumatoid factor (HCC) documented in this encounter Results * (ABNORMAL) COMPREHENSIVE METABOLIC PANEL (03/21/2020 12:18 PM EDT) Sodium 137 136 - 145 mmol/L 03/21/2020 8:47 PM EDT [facility] Potassium 3.5 3.5 - 5.0 mmol/L 03/21/2020 8:47 PM EDT [facility] Chloride 102 98 - 107 mmol/L 03/21/2020 [...] 8:47 PM EDT [facility] BUN 10 6 - 20 mg/dL 03/21/2020 [...] 8:47 PM EDT [facility] ALT 8 <=41 U/L 03/21/2020 8:47 PM EDT [facility] AST 20 <=40 U/L 03/21/2020 8:47 PM EDT [facility] Alk Phos 119 36 - 123 U/L 03/21/2020 8:47 PM EDT [facility] GFR Afr Am 110 >=60 mL/min/1.7 3 m2 03/21/2020 8:47 PM EDT [facility] GFR Non Afr Am 95 >=60 mL/min/1.7 3 m2 03/21/2020 8:47 PM EDT [facility] Comment: This estimated GFR was [...] CHEMISTRY ORDERABLES Siobhan finnegan Result [facility] [address] [facility], [place] [address] [facility] [address] [place] [address] * (ABNORMAL) CBC WITH DIFF (03/21/2020 12:18 PM EDT) WBC 9.9 3.7 - 10.3 x10(3)/mcL 03/21/2020 7:29 PM EDT [facility] RBC 5.02 3.90 - 5.20 x10(6)/mcL 03/21/2020 7:29 PM EDT [facility] Hgb 14.5 11.2 - 15.7 g/dL 03/21/2020 7:29 PM EDT [facility] Hct 45.8(H) 34.0 - 45.0 % 03/21/2020 7:29 PM EDT [facility] MCV 91.2 80.0 - 100.0 fL 03/21/2020 7:29 PM EDT [facility] MCH 28.9 26.0 - 34.0 pg 03/21/2020 7:29 PM EDT [facility] MCHC 31.7 30.7 - 35.5 g/dL 03/21/2020 7:29 PM EDT [facility] RDW 13.4 <=14.9 % 03/21/2020 7:29 PM EDT [facility] Platelet 353 155 - 369 x10(3)/mcL 03/21/2020 7:29 PM EDT [facility] MPV 11.0 8.8 - 12.5 fL 03/21/2020 7:29 PM EDT [facility] Neut Percent 70.0 % 03/21/2020 7:29 PM EDT [facility] Comment:Neutrophils equals s egs plus bands Imm Gran% 0.7 % 03/21/2020 7:29 PM EDT [facility] Comment:Automated count of m etamyelocytes, myelocytes and promyelocytes. Lymph Percent 21.5 % 03/21/2020 7:29 PM EDT [facility] Roberts Percent 5.8 % 03/21/2020 7:29 PM EDT [facility] Eos Percent 1.3 % 03/21/2020 7:29 PM EDT [facility] Baso Percent 0.7 % 03/21/2020 7:29 PM EDT [facility] Neut # 6.9(H) 1.6 - 6.1 x10(3)/mcL 03/21/2020 7:29 PM EDT [facility] Comment:Neutrophils equals s egs plus bands IMMGRAN# 0.1 0.0 - 0.1 x10(3)/mcL 03/21/2020 7:29 PM EDT [facility] Comment:Automated count of m etamyelocytes, myelocytes and promyelocytes. An absolute IG <0.1 is reported as 0.0. Lymph # 2.1 1.2 - 3.9 x10(3)/mcL 03/21/2020 7:29 PM EDT [facility] Roberts # 0.6 0.3 - 0.9 x10(3)/mcL 03/21/2020 7:29 PM EDT [facility] Eos# 0.1 0.0 - 0.5 x10(3)/mcL 03/21/2020 7:29 PM EDT [facility] Baso # 0.1 0.0 - 0.1 x10(3)/mcL 03/21/2020 7:29 PM EDT [facility], [facility] Blood Venipuncture / Unknown 03/21/2020 12:18 PM EDT 03/21/2020 12:18 PM EDT us Jessica oCrtes MD HEMATOLOGY ORDERABLES Fin al Result Performing Organization Address [facility] Co de Phone Number [address] , [place] [address] * (ABNORMAL) C-REACTIVE PROTEIN (03/21/2020 12:18 PM EDT) Pathologist [facility] CRP 6.90(H) <=5.00 mg/L 03/21/2020 8:47 PM EDT [facility], [facility] Blood Venipuncture / Unknown 03/21/2020 12:18 PM EDT 03/21/2020 12:18 PM EDT us Jessica oCrtes MD CHEMISTRY ORDERABLES Siobhan l Result Performing Organization Address [facility]/ZIP Co de Phone Number [address] , [place] [address] * (ABNORMAL) SEDIMENTATION RATE AUTOMATED (03/21/2020 12:18 PM EDT) Sed Rate 22(H) 0 - 20 mm/hr 03/21/2020 7:49 PM EDT [facility] Blood Venipuncture / Unknown 03/21/2020 12:18 PM EDT 03/21/2020 12:18 PM EDT us Jessica Cortes MD HEMATOLOGY ORDERABLES Fin al Result Performing Organization Address City/[facility]/ZIP Co de Phone Number [facility] [address] [place], [place] [id number] * QUANTIFERON TB GOLD (03/21/2020 12:18 PM EDT) [facility] Quantiferon-TB Gold in Tube Negative Negative, Indeterminate 03/23/2020 2:36 PM EDT [facility] Quantiferon Mitogen minus NIL 9.15 IU/mL 03/23/2020 2:36 PM EDT [facility] Quantiferon NIL 0.02 IU/mL 03/23/2020 2:36 PM EDT [facility] QUANTIFERON TB1 MINUS NIL 0.00 IU/mL 03/23/2020 2:36 PM EDT [facility] QUANTIFERON TB2 MINUS NIL 0.00 IU/mL 03/23/2020 2:36 PM EDT [facility] Blood Venipuncture / Unknown 03/21/2020 12:18 PM EDT 03/21/2020 12:18 PM EDT Narrative [facility] - 03/23/2020 2:36 PM EDT Interferon gamma [...] Fin al Result Performing Organization Address City/[facility]/ZIP Co de Phone Number [facility] [address] [facility], [place] [address] documented in this encounter Visit Diagnoses Diagnosis Tuberculosis screening Screening examination for pulmonary tuberculosis Rheumatoid arthritis involving multiple sites with positive rheumatoid factor (HCC) documented in this encounter Care Teams Nurse Researcher Relationship Specialty Start Date End Date Julisa Kerr MD [address] [id number] PCP - General 02/22/11 Jessica Cortes MD [address] [place] [address] Internal Medicine-Rheumatology 04/26/16 documented as of this encounter
--- OUTSIDE RECORDS SUMMARY | 2024-08-22 21:49 | XMS_ITS | Encounter Summary ---
Author Organization [place] [address] Care Team Providers Care Glass Driller Name Role Phone Julisa Kerr MD Primary Care Provider [phone] Jessica Cortes MD Unavailable [phone] Reason for Visit * Reason Comments Medication Refill Encounter Details Date Type Department Care Team (Late st Contact Info) Description 03/14/2020 Refill [facility] [address] [place] [address] Julisa Kerr MD [address] [place] [address] Medication Refill Social History Tobacco Use Types [...] THE MUSCLE EVERY MONTH 1 mL 3 03/14/2020 06/19/2020 documented in this encounter Plan of Treatment Upcoming Encounters Date Type Department Care Team (Late st Contact Info) Description 08/31/2024 8:30 AM EST Appointment [address] [place] [address] 10/25/2024 10:45 AM EST Office Visit [facility] [address] [facility] [address] [place] [address] Jessica Cortes MD [address] [facility] [address] [place] [address] 01/25/2025 9:00 AM EDT Appointment [address] [address] [place] [address] 05/09/2025 11:00 AM EDT Appointment [facility] [address] [address] [place] [address] 05/09/2025 11:15 AM EDT Appointment [address] [address] [place] [address] Susana Garay MD [address] [place] [address] [place] [address] documented as of this encounter [...] INJECT 1ML INTO THE MUSCLE EVERY MONTH 11/25/2019 03/14/2020 documented as of this encounter Care Teams Glass Driller Relationship Specialty Start Date End Date Julisa Kerr MD [address] [place] [address] PCP - General 02/22/11 Jessica Cortes MD [address] [id number] Internal Medicine-Rheumatology 04/26/16 documented as of this encounter
--- OUTSIDE RECORDS SUMMARY | 2024-08-22 21:49 | XMS_ITS | Encounter Summary ---
Author Organization [facility] [place] [address] Care Team Providers Care Cloth Finishing Range Tender Name Role Phone Julisa Kerr MD Primary Care Provider [phone] Jessica Cortes MD Unavailable [phone] Encounter Details Date Type Department Care Team (Latest Contact Info) Description 11/22/2019 Travel Social History Tobacco Use Types Packs/Day [...] Description 08/31/2024 8:30 AM EST Appointment [address] [place] [address] 10/25/2024 10:45 AM EST Office Visit [facility] [address] [place] [address] Jessica Cortes MD [address] [place] [address] 01/25/2025 9:00 AM EDT Appointment [address] [place] [address] 05/09/2025 11:00 AM EDT [address]ointment [address] [address] 05/09/2025 11:15 AM EDT Appointment [address] [place] [address] Susana Garay MD [address] [place] [address] [place] [address] documented as of this encounter Goals Goal Patient Goal Type Associated Problems Recent Progress Patient-Stated? 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 RN documented as of this encounter Visit Diagnoses Not on filedocumented in this encounter Care Teams Cloth Finishing Range Tender Relationship Specialty Start Date End Date Julisa Kerr MD [address] [id number] PCP - General 02/22/11 Jessica Cortes MD [address] [place] [address] Internal Medicine-Rheumatology 04/26/16 documented as of this encounter
--- OUTSIDE RECORDS SUMMARY | 2024-08-22 21:50 | XMS_ITS | Encounter Summary ---
Author Organization [place] [address] Care Team Providers Care Instructor Ground Services Name Role Phone Julisa Kerr MD Primary Care Provider [phone] Jessica Cortes MD Unavailable [phone] Reason for Visit * Reason Onset Date Comments Other 11/23/2018 Encounter Details Date Type Department Care Team (Late st Contact Info) Description 11/23/2018 Telephone [facility] [address] [place] [address] Julisa Kerr MD [address] [place] [address] Other Social History Tobacco Use Types Packs/Day Years Used Date Smoking Tobacco: Never Smokeless Tobacco: Never Alcohol Use Standard Drinks/Week Comments Yes 0 (1 standard drink = 0.6 oz pur e alcohol) occasional Sexually Active Control Partners Comments Yes Comments [...] PM EST Gina Carranza Beatriz JARROD * Does this person have serious difficulty walking or climbing stairs? Answer Date of Assessment Author No 10/01/2018 2:11 PM EST Gina Carranza Beatriz JARROD * Does this person have difficulty dressing or bathing? Answer Date of Assessment Author No 10/01/2018 2:11 PM EST Gina Carranza RMA * Because of a physical, mental or emotional condition, does this person have difficulty doing errands alone such as visiting a doctor's office or shopping? Answer Date of Assessment Author No 10/01/2018 2:11 PM EST Gina Carranza BeatrizJARROD documented as of this encounter Mental Status * Because of a physical, mental or emotional condition, does this person have serious difficulty concentrating, remembering or making decisions? Answer Entry Date Author No 10/01/2018 2:11 PM EST Gina Carranza Beatriz JARROD documented in this encounter Miscellaneous Notes * Telephone Encounter - Willa Zee RMA - 11/23/2018 5:41 PM EST The patient has been notified of this information and all questions answered. * Telephone Encounter - Tommie Rebollar DO - 11/23/2018 5:13 PM EST Recommend evaluation especially if prednisone didn't help * Telephone Encounter - Alpa Lance - 11/23/2018 3:50 PM EST Pt states that her pinky has been swelling and getting really tight. She told her RA doctor and sheprescribed her prednisone. This has done nothing. Could it be gout?? What can she do? Please call and let her know. documented in this encounter Plan of Treatment Upcoming Encounters Date Type Department Care Team (Late st Contact Info) Description 08/31/2024 8:30 AM EST Appointment [facility] [address] [place] [address] 10/25/2024 10:45 AM EST Office Visit [facility] [address] [facility] [address] [place] [address] Jessica Cortes MD [address] [facility] Building [address] [place] [address] 01/25/2025 9:00 AM EDT [address]ointment [address] [place] [address] 05/09/2025 11:00 AM EDT [address]ointment [address] [place] [address] 05/09/2025 11:15 AM EDT Appointment [address] [place] [address] Susana Garay MD [address] [place] [address] documented as of this encounter Goals Goal Patient Goal Type Associated Problems Recent Progress Patient-Stated? Author Maintain a healthy diet, exercise regularly and maintain an ideal body weight General Porsche Ashley, RN documented as of this encounter Visit Diagnoses Not on filedocumented in this encounter Care Teams Instructor Ground Services Relationship Specialty Start Date End Date Julisa Kerr MD [address] [place] [address] PCP - General 02/22/11 Jessica Cortes MD 6[address] [facility] 19 [place] [address] Internal Medicine-Rheumatology 04/26/16 documented as of this encounter
--- OUTSIDE RECORDS SUMMARY | 2024-08-22 21:50 | XMS_ITS | Encounter Summary ---
Author Organization [place] [address] Care Team Providers Care Home Appliance Tech Name Role Phone Julisa Kerr MD Primary Care Provider [phone] Jessica Cortes MD Unavailable [phone] Reason for Visit * Physical Therapy (Routine) - Closed Specialty Diagnoses / Procedures Referred By Contac t Referred To Contact Clinic/Center-Physical Therapy / Physical Therapy Diagnoses hip Procedures PT EVAL 60 Jessica Cortes MD [address] [place] [address] Phone: tel: fax: Rae Caro, PT [address] [place] [address] Phone: tel: fax: Referral ID Status Reason Start Date Expiration Date Visits Re quested Visits Authorized [id number] Closed 12/18/2018 01/17/2019 6 6 Encounter Details Date Type Department Care Team (Latest Contact Info) Description 12/23/2018 10:00 AM EDT - 12/23/2018 11:59 PM EDT Hospital Encounter [facility] Physical Therapy [facility] [address] [place] [address] Rae Caro, PT [address] [place] [address] Discharge Disposition: Home or Self Care Social [...] Gina Parada RMA documented in this encounter Medications at Time of Discharge cyclobenzaprine (FLEXERIL) 5 mg Oral TabletIndications: Chronic midline posterior neck pain,Paresthesia of both hands,Cervical radiculopathy Take 1 Tab by mouth every 8 hours as needed for up to 10 days. 30 Tab 1 12/23/2018 01/03/20 19 Insulin Syringe-Needle U-100 (BD INSULIN SYRINGE) 1 mL 25 gauge x 5/8 Misc SyringeIndications :Rheumatoid arthritis involving multiple sites with positive rheumatoid factor (HCC) Use for MTX injection once a week 100 Syringe 1 06/23/2017 09/20/20 methotrexate 25 mg/mL Inj SolutionIndication s:Rheumatoid arthritis involving multiple sites with positive rheumatoid factor (HCC) Subcutaneous (Inject under the skin) 0.8 mL every 7 days. 4 mL 1 11/11/2018 09/20/20 predniSONE (DELTASONE) 10 mg Oral TabletIndications: Rheumatoid arthritis involving multiple sites with positive rheumatoid factor (HCC) Take 1 Tab by mouth daily as needed. 30 Tab 01/05/2018 09/20/20 documented as of this encounter Discharge Disposition Disposition Code Departure Means Destination Home or Self Care documented in this encounter Progress Notes * Rae Caro, PT - 12/23/2018 7:51 AM EDT Images from the original note were not included. Therapy Daily Progress Note Date: 12/23/2018 Name: Yuliet Newsome : 1970 Visit #?? /Insurance : 2 out of 6 visits /passport Onset Date: 09/17/19 Diagnosis: neck pain Precautions: RA Follow Up: Sebastian : Future Appointments Date Time Provider Department Center 01/22/2019 10:45 AM Jessica Cortes MD [facility] Medication Changes: No changes in meds Reassessment Date: 01/18/19 FOTO Date: 01/18/19 G-codes due: 01/18/19 Time In/Out: [id number] Subjective Just sore /stiffness. She c/o stiffness and only one episode HEP: Independent and Compliant Objective Education: Needs Assistance: Yes Understood: Yes Treatment: Therapeutic exercises: 14 min Shoulder rolls x [address], Sitting ; cervical retraction x5 sec x 10, scapular retraction x 5 sec x 15 ,doorway stretch with hands low x 20 sec x 3, Manual therapy : 16 min STM x to neck/ Response to Treatment: Decreased muscular spasm ??Total timed tx: 30min TE x 1,TA x 1 Assessment Patient tolerated treatment well. Therapeutic exercises for posture and manual therapy to decrease muscle tightness. Plan Continue PT: Rae Caro, PT documented in this encounter Plan of Treatment Upcoming Encounters Date Type Department Care Team (Late st Contact Info) Description 08/31/2024 8:30 AM EST Appointment [facility] [address] [place] [address] 10/25/2024 10:45 AM EST Office Visit [facility] [address] [place] [address] Jessica Cortes MD [address] [facility] Building [address] [place] [address] 01/25/2025 9:00 AM EDT Appointment [address] [address] 05/09/2025 11:00 AM EDT Appointment [address] [address] 05/09/2025 11:15 AM EDT Appointment [address] [address] Susana Garay MD [address] [place], [place] [id number] documented as of this encounter Goals Goal Patient Goal Type Associated Problems Recent Progress Patient-Stated? Author Maintain a healthy diet, exercise regularly and maintain an ideal body weight General Porsche Ashley, RN documented as of this encounter Visit Diagnoses Not on filedocumented in this encounter Care Teams Home Appliance Tech Relationship Specialty Start Date End Date Julisa Kerr MD [address] [place] [address] PCP - General 02/22/11 Jessica Cortes MD [address] [place] [address] Internal Medicine-Rheumatology 04/26/16 documented as of this encounter
--- OUTSIDE RECORDS SUMMARY | 2024-08-22 21:50 | XMS_ITS | Encounter Summary ---
Author Organization [place] [address] Care Team Providers Care Cloth Piecer Name Role Phone Julisa Kerr MD Primary Care Provider [phone] Jessica Cortes MD Unavailable [phone] Reason for Referral * EMG (Routine) - Closed Specialty Diagnoses / Procedures Referred By Contac t Referred To Contact Electromyography Diagnoses Numbness in both hands Rheumatoid arthritis involving multiple sites with positive rheumatoid factor ([facility]) Osteopenia, unspecified location Immunocompromised patient ([facility]) Procedures EMG Julisa Kerr MD Phone: tel: fax: [facility] EMG [address] [place] [address] Phone: tel: fax: Referral ID Status Reason Start Date Expiration Date Visits Re quested Visits Authorized [id number] Closed 01/21/2019 01/21/2020 1 1 Reason for Visit * Reason Onset Date Comments Other 01/18/2019 Encounter Details Date Type Department Care Team (Late st Contact Info) Description 01/18/[address] [address] Julisa Kerr MD [address] [place] [address] Other Social History Tobacco Use Types Packs/Day [...] Gina Parada RMA documented in this encounter Miscellaneous Notes * Addendum Note - Edmundo Barger CMA - 01/21/2019 11:23 AM EDTAddended by: EDMUNDO BARGER on: 01/21/2019 11:23 AM Modules accepted: Orders * Telephone Encounter - Edmundo Barger CMA - 01/21/2019 11:06 AM EDT No voicemail, no answer on home phone. Patient informed directly on cell phone. Patient does want to do the EMG. 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 Informed patient that oder has been placed and to call the central scheduling number to schedule. * Telephone Encounter - Julisa Kerr MD - 01/19/2019 5:10 PM EDT She can get emg to know for sure if she would like. * Telephone Encounter - Irma Sim - 01/18/2019 2:50 PM EDT She wants to know what could be causing the tingling and numbness in her hands since her MRI didn'tshow anything? documented in this encounter Plan of Treatment Upcoming Encounters Date Type Department Care Team (Late st Contact Info) Description 08/31/2024 8:30 AM EST Appointment [place] [address] [place] [address] 10/25/2024 10:45 AM EST Office Visit [facility] [address] [facility] [address] [place] [address] Jessica Cortes MD [address]51 [facility] Building [address] [place] [address] 01/25/2025 9:00 AM EDT Appointment [place] [address] [place] [address] 05/09/2025 11:00 AM EDT Appointment [facility] [address] [place] [address] 05/09/2025 11:15 AM EDT Appointment [facility] [place] [address] [address] Susana Garay MD 1 [facility] [place] [address] documented as of this encounter Goals Goal Patient Goal Type Associated Problems Recent Progress Patient-Stated? 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 RN documented as of this encounter Results * (ABNORMAL) EMG (01/29/2019) Impressions SEP OFFICE - 01/29/2019 There is evidence of a right median neuropathy, at or distal to the wrist (consistent with carpal tunnel syndrome), mild in degree electrically. This is otherwise a normal study of the bilateral upper extremities. Yg Wilks M.D. Diplomate, [place] [employer] Narrative SEP OFFICE - 01/29/2019 NCS Summary: Normal bilateral median and ulnar motor responses. Right median sensory response recording digit 2 prolonged and reduced. Left median sensory response recording digit 2 normal. Left median palmar sensory response normal. Normal bilateral ulnar, radial, and left ulnar-palmar sensory responses. EMG Summary: Normal needle electrode examination of the bilateral upper extremities and related cervical paraspinal muscles. us Julisa Kerr MD NEUROLOGY ORDERABLES Final Res ult SEP OFFICE documented in this encounter Visit Diagnoses Diagnosis Numbness in both hands- Primary Disturbance of skin sensation Rheumatoid arthritis involving multiple sites with positive rheumatoid factor (HCC) Osteopenia, unspecified location Immunocompromised patient (HCC) Unspecified immunity deficiency Carpal tunnel syndrome of right wrist- Primary Carpal tunnel syndrome Numbness in both hands Disturbance of skin sensation Rheumatoid arthritis involving multiple sites with positive rheumatoid factor (HCC) Osteopenia, unspecified location Immunocompromised patient (HCC) Unspecified immunity deficiency documented in this encounter Care Teams Cloth Piecer Relationship Specialty Start Date End Date Julisa Kerr MD [address] [place], [place] [id number] PCP - General 02/22/11 Jessica Cortes MD 651 [facility] [address] [place] [address] Internal Medicine-Rheumatology 04/26/16 documented as of this encounter
--- OUTSIDE RECORDS SUMMARY | 2024-08-22 21:50 | XMS_ITS | Encounter Summary ---
Author Organization [place] [address] Care Team Providers Care In Room Dining Server Name Role Phone Julisa Kerr MD Primary Care Provider [phone] Jessica Cortes MD Unavailable [phone] Encounter Details Date Type Department Care Team (Latest Contact Info) Description 01/04/2019 10:50 AM EDT - 01/04/2019 11:59 PM EDT Hospital Encounter [facility] [address] [id number] Rheumatoid arthritis involving multiple sites with positive [...] No 10/01/2018 2:11 PM Gina Parada JARROD documented in this encounter Medications at Time of Discharge Insulin Syringe-Needle U-100 (BD INSULIN SYRINGE) 1 mL 25 gauge x 5/8 Misc SyringeIndicatio ns:Rheumatoid arthritis involving multiple sites with positive rheumatoid factor (HCC) Use for MTX injection once a week 100 Syringe 1 06/23/2017 9 methotrexate 25 mg/mL Inj SolutionIndicati ons:Rheumatoid arthritis involving multiple sites with positive rheumatoid factor (HCC) Subcutaneous (Inject under the skin) 0.8 mL every 7 days. 4 mL 1 11/11/2018 9 predniSONE (DELTASONE) 10 mg Oral TabletIndication s:Rheumatoid arthritis involving multiple sites with positive rheumatoid factor (HCC) Take 1 Tab by mouth daily as needed. 30 Tab 01/05/2018 9 documented as of this encounter Discharge Disposition Disposition Code Departure Means Destination Home or Self Care documented in this encounter Plan of Treatment Upcoming Encounters Date Type Department Care Team (Late st Contact Info) Description 08/31/2024 8:30 AM EST Appointment [facility] [address] [place] [address] 10/25/2024 10:45 AM EST Office Visit [facility] [address] [place] [address] Jessica Cortes MD [address] [place] [address] 01/25/2025 9:00 AM EDT Appointment [facility] [place] [address] [place] [address] 05/09/2025 11:00 AM EDT Appointment [place] [address] [place] [address] 05/09/2025 11:15 AM EDT Appointment [place] [address] [place] [address] Susana Garay MD [address] [place] [address] [place] [address] documented as of this encounter Goals Goal Patient Goal Type Associated Problems Recent Progress Patient-Stated? Author Maintain a healthy diet, exercise regularly and maintain an ideal body weight General Porsche Ashley RN documented as of this encounter Procedures Procedure Name Priority Date/Time Associated Diagnosis Comments SEDIMENTATION RATE AUTOMATED Routine 01/04/2019 10:50 AM EDT Rheumatoid arthritis involving multiple sites with positive rheumatoid factor (HCC) CBC WITH DIFF Routine 01/04/2019 10:50 AM EDT Rheumatoid arthritis involving multiple sites with positive rheumatoid factor (HCC) C-REACTIVE PROTEIN Routine 01/04/2019 10 :50 AM EDT Rheumatoid arthritis involving multiple sites with positive rheumatoid factor (HCC) COMPREHENSIVE METABOLIC PANEL Routine 01/04/2019 10:50 AM EDT Rheumatoid arthritis involving multiple sites with positive rheumatoid factor (HCC) documented in this encounter Results * COMPREHENSIVE METABOLIC PANEL (01/04/2019 10:50 AM EDT) Sodium 141 136 - 145 mmol/L 01/04/2019 3:25 PM EDT [facility] Potassium 4.2 3.5 - 5.0 mmol/L 01/04/2019 3:25 PM EDT [facility] Chloride 104 98 - 107 mmol/L 01/04/2019 3:25 PM EDT [facility] Total CO2 25 22 - 29 mmol/L 01/04/2019 3:25 PM EDT [facility] Anion Gap 12 7 - 16 mmol/L 01/04/2019 3:25 PM EDT [facility] Calcium 9.8 8.6 - 10.4 mg/dL 01/04/2019 3:25 PM EDT [facility] Glucose Lvl 91 74 - 100 mg/dL 01/04/2019 3:25 PM EDT [facility] BUN 8 6 - 20 mg/dL 01/04/2019 3:25 PM EDT [facility] Creatinine 0.78 0.51 - 1.30 mg/dL 01/04/2019 3:25 PM EDT [facility] Albumin 4.6 3.5 - 5.2 gm/dL 01/04/2019 3:25 PM EDT [facility] Total Protein 7.8 6.4 - 8.3 gm/dL 01/04/2019 3:25 PM EDT [facility] Bili Total 0.4 0.1 - 1.3 mg/dL 01/04/2019 3:25 PM EDT [facility] ALT 10 <=41 IU/L 01/04/2019 3:25 PM EDT [facility] AST 18 <=40 IU/L 01/04/2019 3:25 PM EDT [facility] Alk Phos 109 36 - 123 IU/L 01/04/2019 3:25 PM EDT [facility] GFR Afr Am 104 >=60 mL/min/1.7 3 m2 01/04/2019 3:25 PM EDT [facility] GFR Non Afr Am 90 >=60 mL/min/1.7 3 m2 01/04/2019 3:25 PM EDT [facility] Comment: This estimated GFR [...] or muscle mass. Blood Venipuncture / Unknown 01/04/2019 10:50 AM EDT 01/04/2019 10:50 AM EDT us Jessica Cortes MD CHEMISTRY ORDERABLES Siobhan finnegan Result [facility] [address] [facility], [address] [place] [id number] [facility] [address] [place] [address] [id number] * (ABNORMAL) CBC WITH DIFF (01/04/2019 10:50 AM EDT) WBC 8.3 3.7 - 10.3 x10(3)/mcL 01/04/2019 3:00 PM EDT [facility] RBC 5.16 3.90 - 5.20 x10(6)/mcL 01/04/2019 3:00 PM EDT [facility] Hgb 14.7 11.2 - 15.7 g/dL 01/04/2019 3:00 PM EDT [facility] Hct 45.5(H) 34.0 - 45.0 % 01/04/2019 3:00 PM EDT [facility] MCV 88.2 79.0 - 98.0 fL 01/04/2019 3:00 PM EDT [facility] MCH 28.5 26.0 - 32.0 pg 01/04/2019 3:00 PM EDT [facility] MCHC 32.3 30.7 - 35.5 g/dL 01/04/2019 3:00 PM EDT [facility] RDW 12.2 <=14.9 % 01/04/2019 3:00 PM EDT [facility] Platelet 322 155 - 369 x10(3)/mcL 01/04/2019 3:00 PM EDT [facility] MPV 11.1 8.8 - 12.5 fL 01/04/2019 3:00 PM EDT [facility] Neut Percent 53.7 % 01/04/2019 3:00 PM EDT [facility] Comment:Neutrophils equals s egs plus bands Imm Gran% 0.1 % 01/04/2019 3:00 PM EDT [facility] Comment:Automated count of m etamyelocytes, myelocytes and promyelocytes. Lymph Percent 30.3 % 01/04/2019 3:00 PM EDT [facility] [place] Percent 8.3 % 01/04/2019 3:00 PM EDT [facility] Eos Percent 6.6 % 01/04/2019 3:00 PM EDT [facility] Baso Percent 1.0 % 01/04/2019 3:00 PM EDT [facility] Neut # 4.5 1.6 - 6.1 x10(3)/mcL 01/04/2019 3:00 PM EDT [facility] Comment:Neutrophils equals s egs plus bands IMMGRAN# 0.0 0.0 - 0.1 x10(3)/mcL 01/04/2019 3:00 PM EDT [facility] Comment:Automated count of m etamyelocytes, myelocytes and promyelocytes. An absolute IG <0.1 is reported as 0.0. Lymph # 2.5 1.2 - 3.9 x10(3)/mcL 01/04/2019 3:00 PM EDT [facility] [place] # 0.7 0.3 - 0.9 x10(3)/mcL 01/04/2019 3:00 PM EDT [facility] Eos# 0.6(H) 0.0 - 0.5 x10(3)/mcL 01/04/2019 3:00 PM EDT [facility] Baso # 0.1 0.0 - 0.1 x10(3)/mcL 01/04/2019 3:00 PM EDT [facility] Blood Venipuncture / Unknown 01/04/2019 10:50 AM EDT 01/04/2019 10:50 AM EDT us Jessica Cortes MD HEMATOLOGY ORDERABLES Fin al Result [facility] [address] [facility] , [place] [address] * (ABNORMAL) C-REACTIVE PROTEIN (01/04/2019 10:50 AM EDT) CRP 9.51(H) <=5.00 mg/L 01/04/2019 3:25 PM EDT [employer] [facility] Blood Venipuncture / Unknown 01/04/2019 10:50 AM EDT 01/04/2019 10:50 AM EDT Jessica Cortes MD CHEMISTRY ORDERABLES Siobhan l Result [facility] [address] [facility] , [place] [address] * (ABNORMAL) SEDIMENTATION RATE AUTOMATED (01/04/2019 10:50 AM EDT) Sed Rate 23(H) 0 - 20 mm/hr 01/04/2019 11:01 AM EDT [facility] Blood Venipuncture / Unknown 01/04/2019 10:50 AM EDT 01/04/2019 10:50 AM EDT Jessica Cortes MD HEMATOLOGY ORDERABLES Fin al Result [facility] [address] [place] [address] documented in this encounter Visit Diagnoses Diagnosis Rheumatoid arthritis involving multiple sites with positive rheumatoid factor (HCC) documented in this encounter Care Teams In Room Dining Server Relationship Specialty Start Date End Date Julisa Kerr MD [address] [place] [address] PCP - General 02/22/11 Jessica Cortes MD 651 [facility] 19 [place], [place] [id number] Internal Medicine-Rheumatology 04/26/16 documented as of this encounter
--- OUTSIDE RECORDS SUMMARY | 2024-08-22 21:50 | XMS_ITS | Encounter Summary ---
Author Organization [place] [address] Care Team Providers Care Fire Extinguisher Charger Name Role Phone Julisa Kerr MD Primary Care Provider [phone] Jessica Cortes MD Unavailable [phone] Reason for Visit * Reason Onset Date Comments Other 01/01/2019 Encounter Details Date Type Department Care Team (Late st Contact Info) Description 01/01/2019 Telephone [facility] Physical Therapy [address] [address] Rae Caro, PT [address] [place] [address] Other Social History Tobacco Use Types Packs/Day [...] encounter Miscellaneous Notes * Telephone Encounter - Lorelei Acosta - 01/01/2019 1:28 PM EDT Patient did not arrive for her physical therapy appointment. Tried to call patient, Salvatore [employer] customer not available. documented in this encounter Plan of Treatment Upcoming Encounters Date Type Department Care Team (Late st Contact Info) Description 08/31/2024 8:30 AM EST Appointment [place] [address] [place] [address] 10/25/2024 10:45 AM EST Office Visit [facility] [address] [facility] [address] [place] [address] Jessica Cortes MD [address] [facility] Building [address] [place] [address] 01/25/2025 9:00 AM EDT Appointment [place] [address] [place] [address] 05/09/2025 11:00 AM EDT Appointment [facility] [address] [place] [address] 05/09/2025 11:15 AM EDT Appointment [facility] [place] [address] Susana Garay MD [address] [place] [address] [place] [address] documented as of this encounter Goals Goal Patient Goal Type Associated Problems Recent Progress Patient-Stated? 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, RN documented as of this encounter Visit Diagnoses Not on filedocumented in this encounter Care Teams Fire Extinguisher Charger Relationship Specialty Start Date End Date Julisa Kerr MD [address] [place] [address] PCP - General 02/22/11 Jessica Cortes MD 651 [facility] [address] [place] [address] Internal Medicine-Rheumatology 04/26/16 documented as of this encounter
--- OUTSIDE RECORDS SUMMARY | 2024-08-22 21:50 | XMS_ITS | Encounter Summary ---
Author Organization [place] [address] Care Team Providers Care Tractor Operator Name Role Phone Julisa Kerr MD Primary Care Provider [phone] Jessica Cortes MD Unavailable [phone] Reason for Referral * MRI/CAT Scan (Routine) - Closed Specialty Diagnoses / Procedures Referred By Contac t Referred To Contact Radiology Diagnoses Chronic midline posterior neck pain Paresthesia of both hands Cervical radiculopathy Procedures MRI CERVICAL SPINE WO CONTRAST Julisa Kerr MD Phone: tel: fax: [facility] MRI [address] [facility] [place] [address] Phone: tel: Referral ID Status Reason Start Date Expiration Date Visits Re quested Visits Authorized [id number] Closed 12/23/2018 12/23/2019 1 1 Reason for Visit * Reason Comments Hand Pain both Neck Pain Encounter Details Date Type Department Care Team (Late st Contact Info) Description 12/23/2018 11:00 AM EDT Office Visit [facility] [address] [place] [address] Julisa Kerr MD [address] [place] [address] Chronic midline posterior neck pain (Primary Dx); Paresthesia of both hands; Cervical radiculopathy Social History Tobacco Use Types [...] Sign Reading Time Taken Comments Blood Pressure 118/84 12/23/2018 11:28 AM EDT Pulse - - Temperature 36.7 ??C (98.1 ??F) 12/23/2018 11:28 AM E DT Respiratory Rate - - Oxygen Saturation - - Inhaled Oxygen Concentration - - Weight 60.8 kg (134 lb) 12/23/2018 11:28 AM EDT Height 157.5 cm (5' 2 ) 12/23/2018 11:28 AM EDT Body Mass Index 24.51 12/23/2018 11:28 AM EDT documented in this encounter Functional [...] Date Author No 10/01/2018 2:11 PM MANUEL Carranza Gina JARROD Henderson documented in this encounter Ordered Prescriptions Prescription Sig Dispense Quantity Refills Last Filled Start Date End Date cyclobenzaprine (FLEXERIL) 5 mg Oral TabletIndications:C hronic midline posterior neck pain,Paresthesia of both hands,Cervical radiculopathy Take 1 Tab by mouth every 8 hours as needed for up to 10 days. 30 Tab 1 12/23/2018 9 documented in this encounter Progress Notes * Julisa Kerr MD - 12/23/2018 11:00 AM EDT Vitals: 12/23/18 1128 BP: 118/84 Temp: 98.1 ??F (36.7 ??C) TempSrc: Tympanic Weight: 134 lb (60.8 kg) Height: 5' 2 (1.575 m) Chief Complaint Patient presents with ??? Hand Pain both ??? Neck Pain Hand Pain This is a chronic problem. The current episode started more than 1 year ago. The problem occurs constantly. The problem has been gradually worsening. Associated symptoms include arthralgias, neck pain and numbness. Pertinent negatives include no abdominal pain, coughing, fatigue, nausea or rash. Neck Pain This is a chronic problem. The current episode started more than 1 year ago. The problem occurs constantly. The problem has been gradually worsening. Associated symptoms include numbness. Pt is here today for worsening hand pain with numbness and for worsening neck pain Review of Systems Constitutional: Negative for fatigue. HENT: Negative. Respiratory: Negative for cough and wheezing. Cardiovascular: Negative. Gastrointestinal: Negative for abdominal pain, diarrhea and nausea. Genitourinary: Negative. Musculoskeletal: Positive for arthralgias and neck pain. Skin: Negative for rash. Neurological: Positive for dizziness and numbness. Psychiatric/Behavioral: Negative. Physical Exam Constitutional: She appears well-developed. HENT: Head: Normocephalic. Eyes: Conjunctivae are normal. Cardiovascular: Normal rate and regular rhythm. Pulmonary/Chest: Effort normal. She has no wheezes. Abdominal: Soft. There is no tenderness. Musculoskeletal: She exhibits tenderness. Dec rom c spine with trap spasm. Deformities of hands Neurological: She is alert. Psychiatric: She has a normal mood and affect. Nursing note and vitals reviewed. See time date stamps in the EMR for other pertinent history components reviewed as part of today's encounter. [facility] Documentation Medication Compliance: Compliant all the time Understanding of Current Medications: Good Medication Compliance Barriers: None or N/A Self-Management Tools: N/A, no chronic conditions Self-Management Ability: Good Willingness to Adopt Healthy Behaviors: Good Potential Barriers to completing treatment plans today: No significant barriers [facility] Flowsheet was completed/reviewed as part of today's visit. Educated patient regarding the diagnosis, medication/treatment, goals, self- management tools and instructions based on their care plan. They verbalized understanding of the education given on the After Visit Summary [AVS] for today's visit. A copy of the AVS was provided either in writing and/or via [employer]. A new medicine was not prescribed on this visit. Assessment Diagnoses and all orders for this visit: Chronic midline posterior neck pain - MRI CERVICAL SPINE WO CONTRAST; Future - cyclobenzaprine (FLEXERIL) 5 mg Oral Tablet; Take 1 Tab by mouth every 8 hours as needed for up to 10 days. Dispense: 30 Tab; Refill: 1 Paresthesia of both hands - MRI CERVICAL SPINE WO CONTRAST; Future - cyclobenzaprine (FLEXERIL) 5 mg Oral Tablet; Take 1 Tab by mouth every 8 hours as needed for up to 10 days. Dispense: 30 Tab; Refill: 1 - POCT GLYCATED HEMOGLOBIN, TOTAL Cervical radiculopathy - MRI CERVICAL SPINE WO CONTRAST; Future - cyclobenzaprine (FLEXERIL) 5 mg Oral Tablet; Take 1 Tab by mouth every 8 hours as needed for up to 10 days. Dispense: 30 Tab; Refill: 1 documented in this encounter Plan of Treatment Upcoming Encounters Date Type Department Care Team (Late st Contact Info) Description 08/31/2024 8:30 AM EST Appointment [facility] [address] [place] [address] 10/25/2024 10:45 AM EST Office Visit [facility] [address] [facility] [address] [place] [address] Jessica Cortes MD [address] [facility] Building [address] [place] [id number] 01/25/2025 9:00 AM EDT Appointment [place] [address] [place] [address] 05/09/2025 11:00 AM EDT Appointment [place] [address] [place] [address] 05/09/2025 11:15 AM EDT Appointment [place] [address] [place] [address] Susana Garay MD [address] [place] [address] [place] [address] documented as of this encounter Goals Goal Patient Goal Type Associated Problems Recent Progress Patient-Stated? 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 RN documented as of this encounter Procedures Procedure Name Priority Date/Time Associated Diagnosis Comments POCT GLYCATED HEMOGLOBIN, TOTAL Routine 12/23/2018 12:02 PM EDT Paresthesia of both hands documented in this encounter Results * MRI CERVICAL SPINE WO CONTRAST (12/31/2018 2:42 PM EDT) Anatomical Region Laterality Modality Spine, C-spine Magnetic Resonan ce 12/31/2018 2:42 PM EDT Impressions 12/31/2018 3:18 PM EDT Degenerative disc changes at the C5-C6 and C6-C7 levels. No high-grade foraminal stenosis or neural canal stenosis. - - Narrative 12/31/2018 3:18 PM EDT MR CERVICAL SPINE WITHOUT CONTRAST, ??12/31/2018 2:42 PM ?? CLINICAL HISTORY: ??M54.9-Mblyezlgxkx-BMG-10-CM G89.29-Other chronic himf-QLU-97-CM R20.2-Paresthesia of gzdj-LBT-32-CM M54.12-Radiculopathy, cervical zysdyc-FKW-16-CM COMPARISON: ??None. PROCEDURE COMMENTS: Multiplanar multiecho MR imaging of the cervical spine per protocol. FINDINGS: ?? Bony alignment and marrow signal intensity are within normal limits. There are degenerative disc changes at the C5-C6 and C6-C7 levels manifested by disc space narrowing and endplate spurring. The cervical cord is normal in morphology and signal intensity. No cord compression or deformity. Incidentally noted is a mucous retention cyst posterior sphenoid sinus. Cord signal unremarkable. Level by level analysis: C2/C3: ??Neural canal and neural foramen are patent. C3/C4: ??Neural canal and neural foramen are patent. ?? C4/C5: ??Neural canal and neural foramen are patent. ?? C5/C6: ??Degenerative disc changes including broad-based protrusion disc and spur. This is creates some mild narrowing of the right neural foramen. Left foramen is patent. C6/C7: ??Degenerative disc changes including mild diffuse endplate spurring. Neural canal and neural foramen are patent. ?? C7/T1: ??Neural canal neural foramen are patent. Procedure Note Sumit Anderson III, MD - 12/31/2018 MR CERVICAL SPINE WITHOUT CONTRAST, 12/31/2018 2:42 PM CLINICAL HISTORY: M54.7-Nljtzgphndy-QMH-10-CM G89.29-Other chronic kphz-OIN-63-CM R20.2-Paresthesia of egax-XCJ-89-CM M54.12-Radiculopathy, cervical brmkeq-QPZ-32-CM COMPARISON: None. PROCEDURE COMMENTS: Multiplanar multiecho MR imaging of the cervical spineper protocol. FINDINGS: Bony alignment and marrow signal intensity are within normal limits. Thereare degenerative disc changes at the C5-C6 and C6-C7 levels manifested by discspace narrowing and endplate spurring. The cervical cord is normal in morphologyand signal intensity. No cord compression or deformity. Incidentally noted is a mucous retention cyst posterior sphenoid sinus. Cord signal unremarkable. Level by level analysis: C2/C3: Neural canal and neural foramen are patent. C3/C4: Neural canal and neural foramen are patent. C4/C5: Neural canal and neural foramen are patent. C5/C6: Degenerative disc changes including broad-based protrusion discand spur. This is creates some mild narrowing of the right neural foramen.Left foramen is patent. C6/C7: Degenerative disc changes including mild diffuse endplatespurring. Neural canal and neural foramen are patent. C7/T1: Neural canal neural foramen are patent. IMPRESSION: Degenerative disc changes at the C5-C6 and C6-C7 levels. No high-grade foraminal stenosis or neural canal stenosis. - - us Julisa Kerr MD IMG MRI ORDERABLES Final Resul t * POCT GLYCATED HEMOGLOBIN, TOTAL (12/23/2018 12:02 PM EDT) Hemoglobin A1C 5.4 % SEP OFFICE Lot Number SEP OFFICE Expiration Date SEP OFFICE SeriAl # SEP OFFICE 12/23/2018 12:0 2 PM EDT us Julisa Kerr MD POINT OF CARE TEST ORDERABLES Final Result SEP OFFICE documented in this encounter Visit Diagnoses Diagnosis Chronic midline posterior neck pain- Primary Cervicalgia Paresthesia of both hands Cervical radiculopathy Brachial neuritis or radiculitis nos Chronic midline posterior neck pain Cervicalgia Paresthesia of both hands Cervical radiculopathy Brachial neuritis or radiculitis nos documented in this encounter Care Teams Tractor Operator Relationship Specialty Start Date End Date Julisa Kerr MD [address] [place] [address] PCP - General 02/22/11 Jessica Cortes MD [address] [place] [address] Internal Medicine-Rheumatology 04/26/16 documented as of this encounter
--- OUTSIDE RECORDS SUMMARY | 2024-08-22 21:50 | XMS_ITS | Encounter Summary ---
Author Organization [place] [address] Care Team Providers Care Appointment Scheduler Name Role Phone Julisa Kerr MD Primary Care Provider [phone] Jessica Cortes MD Unavailable [phone] Encounter Details Date Type Department Care Team (Latest Contact Info) Description 03/03/2019 4:49 PM EDT - 03/03/2019 11:59 PM EDT Hospital Encounter [facility] [address] [place] [id number] Rheumatoid arthritis involving multiple sites with positive [...] Assessment Author No 10/01/2018 2:11 PM Sol Paradachraly Henderson JARROD * Does this person have [...] 2:11 PM Gina Parada Beatriz JARROD documented as of this encounter Mental Status * Because of a physical, mental or emotional condition, does this person have serious difficulty concentrating, remembering or making decisions? Answer Entry Date Author No 10/01/2018 2:11 PM Sol Paradacharly Henderson JARROD documented in this encounter Medications at Time of Discharge folic acid (FOLVITE) 1 mg Oral TabletIndication s:Rheumatoid arthritis involving multiple sites with positive rheumatoid factor (HCC) TAKE 1 TABLET BY MOUTH EVERY DAY 30 Tab 5 01/25/2019 9 Insulin Syringe-Needle U-100 (BD INSULIN SYRINGE) 1 [...] daily as needed. 30 Tab 01/05/2018 9 tofacitinib (XELJANZ XR) 11 mg Oral Tablet Sustained Release 24 hrIndications:Rh eumatoid arthritis involving multiple sites with positive rheumatoid factor (HCC) Take 11 mg by mouth daily. 90 Tab 1 03/03/2019 9 documented as of this encounter Discharge Disposition Disposition Code Departure Means Destination Home or Self Care documented in this encounter Plan of Treatment Upcoming Encounters Date Type Department Care Team (Late st Contact Info) Description 08/31/2024 8:30 AM EST Appointment [facility] Cancer [place] [address] [place] [address] 10/25/2024 10:45 AM EST Office Visit [facility] [address] [place] [address] Jessica Cortes MD [address] [place] [address] 01/25/2025 9:00 AM EDT Appointment [place] [address] [place] [address] 05/09/2025 11:00 AM EDT Appointment [place] [address] [place] [address] 05/09/2025 11:15 AM EDT Appointment [place] [address] [place] [address] Susana Garay MD [address] [place] [address] [place] [address] documented as of this encounter Goals Goal Patient Goal Type Associated Problems Recent Progress Patient-Stated? 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 RN documented as of this encounter Procedures Procedure Name Priority Date/Time Associated Diagnosis Comments SEDIMENTATION RATE AUTOMATED Routine 03/03/2019 4:49 PM EDT Rheumatoid arthritis involving multiple sites with positive rheumatoid factor (HCC) CBC WITH DIFF Routine 03/03/2019 4:49 PM EDT Rheumatoid arthritis involving multiple sites with positive rheumatoid factor (HCC) C-REACTIVE PROTEIN Routine 03/03/2019 4: 49 PM EDT Rheumatoid arthritis involving multiple sites with positive rheumatoid factor (HCC) COMPREHENSIVE METABOLIC PANEL Routine 03/03/2019 4:49 PM EDT Rheumatoid arthritis involving multiple sites with positive rheumatoid factor (HCC) documented in this encounter Results * (ABNORMAL) COMPREHENSIVE METABOLIC PANEL (03/03/2019 4:49 PM EDT) Sodium 131(L) 136 - 145 mmol/L 03/03/2019 6:32 PM [facility] Potassium 3.7 3.5 - 5.0 mmol/L 03/03/2019 6:32 PM [facility] Chloride 101 98 - 107 mmol/L 03/03/2019 6:32 PM [facility] Total CO2 24 22 - 29 mmol/L 03/03/2019 6:32 PM [facility] Anion Gap 6(L) 7 - 16 mmol/L 03/03/2019 6:32 PM [facility] Calcium 9.8 8.6 - 10.4 mg/dL 03/03/2019 6:32 PM [facility] Glucose Lvl 94 74 - 100 mg/dL 03/03/2019 6:32 PM [facility] BUN 8 6 - 20 mg/dL 03/03/2019 6:32 PM [facility] Creatinine 0.75 0.51 - 1.30 mg/dL 03/03/2019 6:32 PM [facility] Albumin 4.5 3.5 - 5.2 gm/dL 03/03/2019 6:32 PM [facility] Total Protein 6.7 6.4 - 8.3 gm/dL 03/03/2019 6:32 PM [facility] Bili Total 0.5 0.1 - 1.3 mg/dL 03/03/2019 6:32 PM [facility] ALT 16 <=41 IU/L 03/03/2019 6:32 PM [facility] AST 18 <=40 IU/L 03/03/2019 6:32 PM [facility] Alk Phos 81 36 - 123 IU/L 03/03/2019 6:32 PM [facility] GFR Afr Am 109 >=60 mL/min/1.7 3 m2 03/03/2019 6:32 PM [facility] GFR Non Afr Am 95 >=60 mL/min/1.7 3 m2 03/03/2019 6:32 PM EDT [facility] Comment: This estimated GFR [...] or muscle mass. Blood Venipuncture / Unknown 03/03/2019 4:49 PM EDT 03/03/2019 4:49 PM EDT us Jessica Cortes MD CHEMISTRY ORDERABLES Siobhan finnegan Result [facility] [address] [place] [address] * (ABNORMAL) CBC WITH DIFF (03/03/2019 4:49 PM EDT) WBC 8.1 3.7 - 10.3 x10(3)/mcL 03/03/2019 7:16 PM EDT [facility] RBC 4.87 3.90 - 5.20 x10(6)/mcL 03/03/2019 7:16 PM EDT [facility] Hgb 14.0 11.2 - 15.7 g/dL 03/03/2019 7:16 PM EDT [facility] Hct 43.5 34.0 - 45.0 % 03/03/2019 7:16 PM EDT [facility] MCV 89.3 80.0 - 100.0 fL 03/03/2019 7:16 PM EDT [facility] MCH 28.7 26.0 - 34.0 pg 03/03/2019 7:16 PM EDT [facility] MCHC 32.2 30.7 - 35.5 g/dL 03/03/2019 7:16 PM EDT [facility] RDW 13.4 <=14.9 % 03/03/2019 7:16 PM EDT [facility] Platelet 264 155 - 369 x10(3)/[facility] 03/03/2019 7:16 PM EDT [facility] MPV 11.0 8.8 - 12.5 fL 03/03/2019 7:16 PM EDT [facility] Neut Percent 44.8 % 03/03/2019 7:16 PM EDT [facility] Comment:Neutrophils equals s egs plus bands Imm Gran% 0.5 % 03/03/2019 7:16 PM EDT [facility] Comment:Automated count of m etamyelocytes, myelocytes and promyelocytes. Lymph Percent 32.9 % 03/03/2019 7:16 PM EDT [facility] Tama Percent 8.0 % 03/03/2019 7:16 PM EDT [facility], [facility] Eos Percent 12.8 % 03/03/2019 7:16 PM EDT [facility], [facility] Baso Percent 1.0 % 03/03/2019 7:16 PM EDT [facility], [facility] Neut # 3.6 1.6 - 6.1 x10(3)/[facility] 03/03/2019 7:16 PM EDT [facility], [facility] Comment:Neutrophils equals s egs plus bands IMMGRAN# 0.0 0.0 - 0.1 x10(3)/[facility] 03/03/2019 7:16 PM EDT [facility], [facility] Comment:Automated count of m etamyelocytes, myelocytes and promyelocytes. An absolute IG <0.1 is reported as 0.0. Lymph # 2.7 1.2 - 3.9 x10(3)/[facility] 03/03/2019 7:16 PM EDT [facility] Tama # 0.6 0.3 - 0.9 x10(3)/[facility] 03/03/2019 7:16 PM EDT [facility], [facility] Eos# 1.0(H) 0.0 - 0.5 x10(3)/[facility] 03/03/2019 7:16 PM EDT [facility], [facility] Baso # 0.1 0.0 - 0.1 x10(3)/[facility] 03/03/2019 7:16 PM EDT [facility], [facility] Blood Venipuncture / Unknown 03/03/2019 4:49 PM EDT 03/03/2019 4:49 PM EDT us Jessica Cortes MD HEMATOLOGY ORDERABLES Fin al Result Performing Organization Address City/[facility]/ZIP Co de Phone Number [facility] [employer] [facility] [address] [facility] , [place] [address] * C-REACTIVE PROTEIN (03/03/2019 4:49 PM EDT) CRP <0.30 <=5.00 mg/L 03/04/2019 10:21 AM EDT [employer] [facility] Blood Venipuncture / Unknown 03/03/2019 4:49 PM EDT 03/03/2019 4:49 PM EDT us Jessica Cortes MD CHEMISTRY ORDERABLES Siobhan l Result Performing Organization Address [facility] Co de Phone Number [facility] [employer] [facility] [address] [facility] , [address] [place] [phone] * SEDIMENTATION RATE AUTOMATED (03/03/2019 4:49 PM EDT) Pathologist [facility] Sed Rate 4 0 - 20 mm/hr 03/03/2019 7:44 PM EDT [facility] Blood Venipuncture / Unknown 03/03/2019 4:49 PM EDT 03/03/2019 4:49 PM EDT us Jessica Cortes MD HEMATOLOGY ORDERABLES Fin al Result Performing Organization Address City/[facility] Co de Phone Number [facility] [address] [place] [address] documented in this encounter Visit Diagnoses Diagnosis Rheumatoid arthritis involving multiple sites with positive rheumatoid factor (HCC) documented in this encounter Care Teams Appointment Scheduler Relationship Specialty Start Date End Date Julisa Kerr MD [address] [place] [address] PCP - General 02/22/11 Jessica Cortes MD [address] [facility] [address] [place] [address] Internal Medicine-Rheumatology 04/26/16 documented as of this encounter
--- OUTSIDE RECORDS SUMMARY | 2024-08-22 21:50 | XMS_ITS | Encounter Summary ---
Author Organization [place] [address] Care Team Providers Care Microfilming Document Preparer Name Role Phone Julisa Kerr MD Primary Care Provider [phone] Jessica Cortes MD Unavailable [phone] Reason for Visit * Reason Comments Medication Refill Encounter Details Date Type Department Care Team (Late st Contact Info) Description 06/13/2019 Refill [facility] [address] [place] [address] Julisa Kerr MD [address] [place] [address] Medication Refill Social History Tobacco Use Types [...] Gina Parada JARROD documented in this encounter Ordered Prescriptions Prescription Sig Dispense Quantity Refills Last Filled Start Date End Date amitriptyline (ELAVIL) 25 mg Oral TabletIndications: Insomnia, unspecified type TAKE 1 TABLET BY MOUTH EVERY DAY AT NIGHT 30 Tab 2 06/14/2019 05/16/2020 documented in this encounter Miscellaneous Notes * Telephone Encounter - Alisha Suggs CPhT - 06/14/2019 1:52 PM EDT Medication Refill Protocol not available for this medication. Routed to office staff. documented in this encounter Plan of Treatment Upcoming Encounters Date Type Department Care Team (Late st Contact Info) Description 08/31/2024 8:30 AM EST Appointment [facility] [address] [place] [address] 10/25/2024 10:45 AM EST Office Visit [facility] [address] [facility] [address] [place] [address] Jessica Cortes MD [address] [facility] Building [address] [place] [address] 01/25/2025 9:00 AM EDT Appointment [place] [address] [place] [address] 05/09/2025 11:00 AM EDT [address]ointment [address] [place] [address] 05/09/2025 11:15 AM EDT [address]ointment [address] [place] [address] Susana Garay MD [address] [place] [address] [place] [address] documented as of this encounter [...] BY MOUTH EVERY DAY AT NIGHT Reorder 03/22/2019 06/13/2019 documented as of this encounter Care Teams Microfilming Document Preparer Relationship Specialty Start Date End Date Julisa Kerr MD [address] [place] [address] PCP - General 02/22/11 Jessica Cortes MD [address] [facility] [address] [place] [address] Internal Medicine-Rheumatology 04/26/16 documented as of this encounter
--- OUTSIDE RECORDS SUMMARY | 2024-08-22 21:50 | XMS_ITS | Encounter Summary ---
Author Organization [place] [address] Care Team Providers Care Workforce Staffing Advisor Name Role Phone Julisa Kerr MD Primary Care Provider [phone] Jessica Cortes MD Unavailable [phone] Reason for Visit * Reason Onset Date Comments Prior Authorization 11/18/2018 ACTEMRA Encounter Details Date Type Department Care Team (Late st Contact Info) Description 11/18/[address] [facility] [address] [address] Jessica Cortes MD [address] [address] Prior Authorization (ACTEMRA) Social History Tobacco Use Types Packs/Day Years [...] Assessment Author No 10/01/2018 2:11 PM EST Sol Carranzacharly Henderson JARROD * Because of a physical, [...] PM MANUEL Carranza Gina Henderson JARROD documented in this encounter Miscellaneous Notes * Telephone Encounter - Aleyda Naranjo MA - 12/15/2018 9:30 AM EDT Spoke with [facility], they do have the prescription, they need the PA approval. PA approval for actemra faxed to [facility] [phone]. * Telephone Encounter - Taryn Jiménez - 12/15/2018 9:12 AM EDT [facility] Spec Pharm calling. States they still have not received an Rx for Acterma. They only have approval for Orencia. Ph. - [phone] * Telephone Encounter - Emerita Carter CCMA - 11/26/2018 9:51 AM EST PA ran through covermymeds and approved. Re submitted PA again for Actemra. * Telephone Encounter - Rivka Capellan - 11/26/2018 9:40 AM EST [facility] speciality pharmacy calling stating the PA they have received is for the Orencia , not Actemra , call [phone] extention [phone] ref # [id number] to verify which medication should need a PA , pharmacy also stated they call the insurance co. And they have Orencia as well, please advise , thanks * Telephone Encounter - Emerita Carter CCMA - 11/26/2018 9:21 AM EST Spoke with Julisa @ [facility] specialty, she states they have the Approval on file and she will contact the insurance to see what is the hold up. * Telephone Encounter - Rosibel Klein - 11/25/2018 4:23 PM EST Julisa from [facility] Specialty Pharmacy calling, needs to discuss the PA for the Actemra with an MA. Zora called earlier today asking if PA was approved, and I told her there was a note in the chart that PA was approved from 11/11/18 - 12/27/18, and also I saw the document that was scanned into chart from [employer] with the auth # and approval. I gave her this information. She called back and states that she checked and they do not have PA on file and she called and spoke to [employer] and they told her that they also do not have PA approval on file. Please call her back at [phone], ext [phone] * Telephone Encounter - Emerita Carter CCMA - 11/23/2018 7:54 AM EST PA for Actemra Approved. 11/11/18-12/27/18 * Telephone Encounter - Emerita Carter CCMA - 11/18/2018 3:57 PM EST PA in process. * Telephone Encounter - Rosibel Klein - 11/18/2018 3:26 PM EST Mireille from [facility] Specialty Pharmacy calling, states the Actemra requires Prior Authorization, and the phone number for the doctor to call to initiate the PA is [phone]. (If you have any questionsfor [facility] Specialty you can call her back at [phone], ext [phone]) Thanks documented in this encounter Plan of Treatment Upcoming Encounters Date Type Department Care Team (Late st Contact Info) Description 08/31/2024 8:30 AM EST Appointment [place] [address] [place] [address] 10/25/2024 10:45 AM EST Office Visit [facility] 651 [facility] [address] [place] [address] Jessica Cortes MD 651 [facility] Building [address] [place] [address] 01/25/2025 9:00 AM EDT Appointment [place] [address] [place] [address] 05/09/2025 11:00 AM EDT Appointment [place] [address] [place] [address] 05/09/2025 11:15 AM EDT Appointment [place] [address] [place] [address] Susana Garay MD [address] [place] [address] documented as of this encounter [...] monitoring documented in this encounter Care Teams Workforce Staffing Advisor Relationship Specialty Start Date End Date Julisa Kerr MD 100 [place] [address] PCP - General 02/22/11 Jessica Cortes MD [address] [address] Internal Medicine-Rheumatology 04/26/16 documented as of this encounter
--- OUTSIDE RECORDS SUMMARY | 2024-08-22 21:50 | XMS_ITS | Encounter Summary ---
Author Organization [place] [address] Care Team Providers Care Soil Checker Name Role Phone Julisa Kerr MD Primary Care Provider [phone] Jessica Cortes MD Unavailable [phone] Reason for Visit * Physical Therapy (Routine) - Closed Specialty Diagnoses / Procedures Referred By Contac t Referred To Contact Clinic/Center-Physical Therapy / Physical Therapy Diagnoses hip Procedures PT EVAL 60 Jessica Cortes MD [address] [address] Phone: tel: fax: Rae Caro, PT [address] [place] [address] Phone: tel: fax: Referral ID Status Reason Start Date Expiration Date Visits Re quested Visits Authorized [id number] Closed 12/18/2018 01/17/2019 6 6 Encounter Details Date Type Department Care Team (Latest Contact Info) Description 12/18/2018 2:30 PM EDT - 12/18/2018 11:59 PM EDT Hospital Encounter [facility] Physical [facility] 300 [facility] [place] [address] Jessica Cortes MD 651 [place] [address] Rae Caro, PT [address] [place] [address] Discharge Disposition: Home or Self [...] or Self Care documented in this encounter Miscellaneous Notes * Plan of Care - Rae Caro, PT - 12/18/2018 2:42 PM EDT Images from the original note were not included. Physical Therapy Cervical Evaluation 12/18/2018 Visit # /Insurance : 1/passport Onset Date: 09/17/19 Diagnosis: neck pain Precautions: RA Follow Up: Sebastian : Future Appointments Date Time Provider Department Center 01/22/2019 10:45 AM Jessica Cortes [place] [facility] Subjective: Yuliet Newsome is a 48 y.o., female, referred by Dr. Cortes. Primary complaint: 2-3 months ago it started and it catches on right side. It sends a shocking painup head and down arm. She cannot move when it happens. She reports sudden quick movements. C/o neck pain is stiff when no sharp pains. Pain scale: 10/10 with shooting pain which happens 2-3 times a week. Location: right neck Type: sharp shooting Pain increases when:sudden movement, sleeping on sides. Pain decreases when: heating pad, massage Headaches: gotten more intense, 3 times a week and uses tylenol. Location of Headache: back of neck and sikhism Sensation/Neurovascular: Numbness and Tingling hands - they go to sleep. 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 Diagnostic Tests: xrays: c5-6 deg changes Have you received any Speech or Physical therapy this year? No Are you currently receiving any Home Health services? No Any problems with speech, communication, memory?yes due to multple things going on. Barriers to learning? No Recent falls? No At the present time, would you say that your overall health is excellent, very good, fair or poor? 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 ADLs: see foto Primary physical needs at work/ with hobbies/at home: sitting, standing, walking, lifting, pushing and pulling Living situation: Past Medical History: Diagnosis Date ??? Arthritis Past Surgical History: Procedure Laterality Date ??? HYSTEROSCOPY ??? BARBIE AND BSO 2000 Current Outpatient Prescriptions Medication Sig Dispense Refill ??? amitriptyline (ELAVIL) 25 mg Oral Tablet TAKE 1 TABLET BY MOUTH EVERY DAY AT NIGHT 30 Tab 2 ??? cyanocobalamin 1,000 mcg/mL Inj Solution IONJECT 1ML INTO THE MUSCLE EVERY MONTH 1 mL 3 ??? fluticasone (FLONASE) 50 mcg/actuation Nasl Lilburn, Suspension 1 [place]burn by Nasal route daily. 1 Bottle 2 ??? folic acid (FOLVITE) 1 mg Oral Tablet Take 1 Tab by mouth daily. 30 Tab 5 ??? Insulin Syringe-Needle U-100 (BD INSULIN SYRINGE) 1 mL 25 gauge x 5/8 Misc Syringe Use for MTXinjection once a week 100 Syringe 1 ??? methotrexate 25 mg/mL Inj Solution Subcutaneous (Inject under the skin) 0.8 mL every 7 days. 4 mL 1 ??? predniSONE (DELTASONE) 10 mg Oral Tablet Take 1 Tab by mouth daily as needed. 30 Tab 0 ??? tocilizumab (ACTEMRA) 162 mg/0.9 mL SubQ Syringe Subcutaneous (Inject under the skin) 0.9 mL once a week. 4 Syringe 3 ??? VENTOLIN HFA 90 mcg/actuation Inhl HFA Aerosol Inhaler INHALE TWO PUFFS BY MOUTH EVERY 6 HOURS NEEDED FOR WHEEZING 1 Inhaler 0 No current facility-administered medications for this encounter. Allergies: Mobic [meloxicam] Patient stated goals: She would drive and sleep without pain. Observation: Body Composition: Mesomorphic Assistive Devices:none Skin integrity: Intact Posture: Forward head and Rounded shoulders Left thumb swelling, right wrist deformity, left wrist fusion from RA Objective: FOTO: Patient Score: 42 Patient Specific Functional Scale (PSFS): Patient rates their ability to perform specific functional tasks. See foto Palpation: TTP right > left paraspinals, [place] , [place] - right very tight knot in right C4 Shoulder AROM: wfls Scapula Movement:winging. Cervical AROM: Flexion: 32, Extension: 33, Right Sidebend:20 , Left Sidebend:23 , Right Rotation:34, Left Rotation:27 Joint Play: normal mobility Strength: Cervical Flexion (C1, C2): 3+/5. Cervical Extension: 3+/5. Right Left Cervical Rotation 3+/5 3+/5 Cervical Sidebending 3+/5 3+/5 Upper Trapezius (C3, C4) 5/5 5/5 Shoulder Abduction (C5) 4/5 4/5 Elbow Flexion (C6) 4/5 4/5 Elbow Extension (C7) 4/5 4/5 Wrist Flexion (C6) nt nt Wrist Extension (C7) nt nt Finger Abduction (T1) 4/5 4/5 [employer] Strength nt nt Neuro Screen: Light Touch to Dermatomes: normal DTRs: Triceps: N/A Biceps: N/A Brachioradialis: N/A Coordination: finger to thumb opposition. Special Tests Modified Sharp Lucia: Negative Spurling's: Negative Axial Distraction: Negative Shoulder Abduction Test: Negative Treatment today included: Evaluation and HEP Instruction Therapeutic exercises: 14 min Posture education in sitting and standing; cervical retraction x5 sec x 10, scapular retraction x 5sec x 10 ,doorways st.retch with hands low x 20 sec x 3, STM x 5 min to neck Response to Treatment: Decreased muscular spasm Response to HEP Instruction/Patient Education: Instruction/patient education, Verbalized understanding, Returned demonstration Low eval x 1, TE x 1 Assessment: Yuliet Newsome presents with signs and symptoms consistent with cervical strain. She has poor posture and very tight muscles from stress. Patient???s problem is categorized as the following Treatment Based Classification: Pain Control and posture education Objective Impairments and Functional/Activity Limitations: see foto Patient presents as a good rehabilitation candidate. Goals set for 4 weeks. Functional Goals: 1. Patient to demonstrate independence with HEP. 2. Patient's FOTO score will increase by 5-10 points noting an increase in overall function. 3. No sharp pains x 1 week Patient presents with co-morbidities of musculoskeletal conditions and personal factors of Overall behavior pattern, Coping styles and Financial/Insurance limitations that may impact patient/family'sability toWork, Attend social activities and Perform ADLs. During today's evaluation he/she presented with problem areas in musculoskeletal system and neuromuscular system that are impacting functional activities and participation (see objective measures for further detail). Due to consistent signsand symptoms, the patient's presentation is stable at this time.This patient presented today with lowcomplexity. Reference Chart: Co-morbidities & Personal Factors Body system elements Presentation Clinical Decision Making Low Evaluation 0 1-2 Stable / Predictable Low Moderate Evaluation 1-2 3 or more Evolving/ Changing Moderate High Evaluation 3 or more 4 or more Unstable/ Unpredictable High Plan: Patient will be seen 1-2 times per week for 2 weeks. Treatment to include: Therapeutic exercise, Neuromuscular re-education, Manual soft tissue and/or joint mobilization, Patient education and Electrical stimulation Time In: 245 due to patient entered dept at 230 for 230 appt and had to complete foto survey/etc. TimeOut: 330 Total timed treatment: 43 Total treatment time: 45 Signed: Rae Caro PT Date: 12/18/2018 documented in this encounter Plan of Treatment Upcoming Encounters Date Type Department Care Team (Late st Contact Info) Description 08/31/2024 8:30 AM EST Appointment [place] [address] [place] [address] 10/25/2024 10:45 AM EST Office Visit [facility] [address] [facility] [address] [place] [address] Jessica Cortes MD 651 [facility] [facility] Building [address] [place] [address] 01/25/2025 9:00 AM EDT Appointment [place] [address] [place] [address] 05/09/2025 11:00 AM EDT Appointment [place] [address] [place] [address] 05/09/2025 11:15 AM EDT Appointment [facility] [address] [place] [address] Susana Garay MD [address] [place] [address] [place] [address] documented as of this encounter Goals Goal Patient Goal Type Associated Problems Recent Progress Patient-Stated? 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 RN documented as of this encounter Visit Diagnoses Not on filedocumented in this encounter Care Teams Soil Checker Relationship Specialty Start Date End Date Julisa Kerr MD 100 [place] [address] PCP - General 02/22/11 Jessica Cortes MD 651 [facility] 19 [place] [address] Internal Medicine-Rheumatology 04/26/16 documented as of this encounter
--- OUTSIDE RECORDS SUMMARY | 2024-08-22 21:50 | XMS_ITS | Encounter Summary ---
Author Organization [place] [address] Care Team Providers Care Expanded Duty Dental Assistant Name Role Phone Julisa Kerr MD Primary Care Provider [phone] Jessica Cortes MD Unavailable [phone] Reason for Visit * Reason Comments Medication Refill Encounter Details Date Type Department Care Team (Late st Contact Info) Description 12/28/2018 Refill SEP [facility] 100 [place] [id number] Julisa Kerr MD 100 [place] [address] Medication Refill Social History Tobacco Use Types [...] Author No 10/01/2018 2:11 PM MANUEL Carranza Ginacharly Henderson JARROD * Does this person have serious difficulty walking or climbing stairs? Answer Date of Assessment Author No 10/01/2018 2:11 PM Sol Paradacharly Henderson JARROD * Does this person have difficulty dressing or bathing? Answer Date of Assessment Author No 10/01/2018 2:11 PM Gina Parada Beatriz JARROD * Because of a physical, [...] EVERY DAY AT NIGHT 30 Tab 2 12/28/2018 03/21/2019 documented in this encounter Plan of Treatment Upcoming Encounters Date Type Department Care Team (Late st Contact Info) Description 08/31/2024 8:30 AM EST Appointment [address] [place] [address] 10/25/2024 10:45 AM EST Office Visit [facility] [address] [facility] [address] [place] [address] Jessica Cortes MD 651 [facility] Building [address] [place] [address] 01/25/2025 9:00 AM EDT Appointment [place] [address] [place] [address] 05/09/2025 11:00 AM EDT [address]ointment [address] [place] [address] 05/09/2025 11:15 AM EDT Appointment [facility] [address] [place] [id number] Susana Garay MD [address] [place] [address] [place] [address] documented as of [...] BY MOUTH EVERY DAY AT NIGHT Reorder 10/05/2018 12/28/2018 documented as of this encounter Care Teams Expanded Duty Dental Assistant Relationship Specialty Start Date End Date Julisa Kerr MD 100 [place], [place] [id number] PCP - General 02/22/11 Jessica Cortes MD 651 [facility] 19 [place] [address] Internal Medicine-Rheumatology 04/26/16 documented as of this encounter
--- OUTSIDE RECORDS SUMMARY | 2024-08-22 21:50 | XMS_ITS | Encounter Summary ---
Author Organization [place] [address] Care Team Providers Care Portrait Studio Photographer Name Role Phone Julisa Kerr MD Primary Care Provider [phone] Jessica Cortes MD Unavailable [phone] Reason for Visit * Reason Comments Medication Refill Encounter Details Date Type Department Care Team (Late st Contact Info) Description 03/21/2019 Refill SEP [facility] 100 [place] [address] Julisa Kerr MD 100 [place] [address] Medication Refill Social History Tobacco Use Types [...] EVERY DAY AT NIGHT 30 Tab 2 03/22/2019 06/13/2019 documented in this encounter Plan of Treatment Upcoming Encounters Date Type Department Care Team (Late st Contact Info) Description 08/31/2024 8:30 AM EST Appointment [place] [address] [place] [address] 10/25/2024 10:45 AM EST Office Visit [facility] [address] [place] [address] Jessica Cortes MD [address] [facility] [address] [place] [address] 01/25/2025 9:00 AM EDT Appointment [place] [address] [place] [address] 05/09/2025 11:00 AM EDT [address]ointment [address] [place] [address] 05/09/2025 11:15 AM EDT Appointment [facility] [address] [place] [address] Susnaa Garay MD [address] [place] [address] [place] [address] documented as of [...] BY MOUTH EVERY DAY AT NIGHT Reorder 12/28/2018 03/21/2019 documented as of this encounter Care Teams Portrait Studio Photographer Relationship Specialty Start Date End Date Julisa Kerr MD 100 [place] [address] PCP - General 02/22/11 Jessica Cortes MD [address] [address] Internal Medicine-Rheumatology 04/26/16 documented as of this encounter
--- OUTSIDE RECORDS SUMMARY | 2024-08-22 21:50 | XMS_ITS | Encounter Summary ---
Author Organization [place] [address] Care Team Providers Care Cell Assembly Pinner Name Role Phone Julisa Kerr MD Primary Care Provider [phone] Jessica Cortes MD Unavailable [phone] Reason for Visit * Reason Comments Medication Refill Encounter Details Date Type Department Care Team (Late st Contact Info) Description 04/17/2019 Refill SEP [facility] 100 [place] [address] Julisa Kerr MD 100 [place] [address] Medication Refill Social History Tobacco Use Types [...] THE MUSCLE EVERY MONTH 1 mL 3 04/17/2019 08/13/2019 documented in this encounter Plan of Treatment Upcoming Encounters Date Type Department Care Team (Late st Contact Info) Description 08/31/2024 8:30 AM EST Appointment [address] [place] [address] 10/25/2024 10:45 AM EST Office Visit [facility] [address] [place] [address] [place] [address] Jessica Cortes MD [address] [facility] Building [address] [place] [address] 01/25/2025 9:00 AM EDT Appointment [address] [place] [address] 05/09/2025 11:00 AM EDT [address]ointment [address] [place] [address] 05/09/2025 11:15 AM EDT Appointment [facility] [address] [place] [address] Susana Garay MD [address] [place] [address] [place] [address] documented as of [...] 1ML INTO THE MUSCLE EVERY MONTH Reorder 12/24/2018 04/17/2019 documented as of this encounter Care Teams Cell Assembly Pinner Relationship Specialty Start Date End Date Julisa Kerr MD [address] [place], [place] [id number] PCP - General 02/22/11 Jessica Cortes MD 651 [facility] 19 [place] [address] Internal Medicine-Rheumatology 04/26/16 documented as of this encounter
--- OUTSIDE RECORDS SUMMARY | 2024-08-22 21:50 | XMS_ITS | Encounter Summary ---
Author Organization [place] [address] Care Team Providers Care Ict Sales Representative Name Role Phone Julisa Kerr MD Primary Care Provider [phone] Jessica Cortes MD Unavailable [phone] Reason for Referral * DEXA (Routine) - Closed Specialty Diagnoses / Procedures Referred By Contac t Referred To Contact Radiology Diagnoses Osteopenia of multiple sites Procedures DX BONE DENSITY AXIAL SKELETON Jessica Cortes MD [address] [place] [address] Phone: tel: fax: Referral ID Status Reason Start Date Expiration Date Visits Re quested Visits Authorized [id number] Closed 11/11/2018 11/11/2019 1 1 Reason for Visit * Physical Therapy (Routine) - Closed Specialty Diagnoses / Procedures Referred By Contac t Referred To Contact Clinic/Center-Physical Therapy / Physical Therapy Diagnoses hip Procedures PT EVAL 60 Jessica Cortes MD [address] [place] [address] Phone: tel: fax: Rae Caro, PT [address] [place] [address] Phone: tel: fax: Referral ID Status Reason Start Date Expiration Date Visits Re quested Visits Authorized [id number] Closed 12/18/2018 01/17/2019 6 6 Encounter Details Date Type Department Care Team (Latest Contact Info) Description 12/18/2018 1:59 PM EDT - 12/18/2018 2:29 PM EDT Hospital Encounter [address] [place] [address] Jessica Cortes MD [address] [place] Building [address] [place] [id number] Osteopenia of multiple sites Discharge Disposition: Home or Self Care Social [...] 10/01/2018 2:11 PM EST Gina Carranza RMA documented in this encounter Medications at [...] Info) Description 08/31/2024 8:30 AM EST Appointment [address] [place] [address] 10/25/2024 10:45 AM EST Office Visit [facility] [address] [place] [address] [address] [place] [address] Jessica Cortes MD [address] [place] [address] [address] [place] [address] 01/25/2025 9:00 AM EDT Appointment [address] [place] [address] 05/09/2025 11:00 AM EDT Appointment [address] [place] [address] 05/09/2025 11:15 AM EDT Appointment [facility] [address] [place] [address] Susana Garay MD [address] [place], [place] [address] documented as of this encounter Goals Goal Patient Goal Type Associated Problems Recent Progress Patient-Stated? 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 RN documented as of this encounter Procedures Procedure Name Priority Date/Time Associated Diagnosis Comments DX BONE DENSITY AXIAL SKELETON Routine 12/18/2018 2:32 PM EDT Osteopenia of multiple sites documented in this encounter Results * DX BONE DENSITY AXIAL SKELETON (12/18/2018 2:32 PM EDT) Anatomical Region Laterality Modality Dexa Scan 12/18/2018 Narrative 12/21/2018 9:46 AM EDT Indication: The patient is a post-menopausal female under age 65 with clinical risk factors for an osteoporotic fracture that requires a bone density assessment. Study was performed on UBIKOD 5. Bone Density: Region ?BMD ? T-score ? Z- score ?? AP Spine (L1-L4) ?0.909 ?-1.3 ?-0.6 ? Femoral Neck (Right) ?0.604 ?-2.2 ?-1.6 ? Total Hip (Right) ? 0.745 ?-1.6 ?-1.2 ? World Health Organization criteria for BMD [...] 50. 10-year Fracture Risk(1): Major Osteoporotic Fracture ?11% Hip Fracture ? 2.1% Reported Risk Factors: [place] (), Neck BMD=0.604, BMI=24.5, glucocorticoids, rheumatoid arthritis, secondary osteoporosis (1) FRAX(R) Version 3.08. Fracture probability calculated for an untreated patient. Fracture probability may be lower if the patient has received treatment. Previous Exams: Region ? Date ?Age ?BMD ??T-score ?BMD Change AP Spine(L1-L4) ? 12/18/2018 ?48 ?0.909 ?-1.3 ?10.1%* ? 05/03/2016 ?45 ?0.825 ?-2.0 ? Total Hip(Right) ? 12/18/2018 ?48 ?0.745 ?-1.6 ? 3.7% ? 05/03/2016 ?45 ?0.718 ?-1.8 ? *Denotes significance at 95% confidence level, site specific LSC for AP Spine = 0.031 g/cm2, ??LSC for Total Hip = 0.027 g/cm2 ?? BMD is shown in g/cm2 and BMD Change indicates change vs previous BMD Clinical Information Provided by Patient: Has taken Glucocorticoids. Has rheumatoid arthritis. Has secondary osteoporosis. Has used or is currently using the following medications: Calcium, Vitamin D Has had or currently has the following medical conditions: Asthma, Emphysema, or COPD, Back pain, Hip pain, Vitamin D Insufficiency Patient maximum height was 63 Menopause Age: 32 Patient is post menopausal Interpretation: Bone mineral density is in the low bone density range. A minimum of two years may be required between bone density studies due to inherent testing precision limitations. Intervals between BMD testing should be determined according to each patient's clinical status: typically one year after initiation or change of therapy is appropriate, with longer intervals once therapeutic effect is established. The spine bone mineral density is significantly increased from the last exam. ?? The spine portion of the study is limited by visual hypertrophic changes. The right hip bone mineral density is not significantly changed since the last exam. Reported by: Lindsey Laureano PA-C, CCD on 12/18/2018 3:03:00 PM. Jessica Cortes MD IMG DEXA ORDERABLES Final Result documented in this encounter Visit Diagnoses Diagnosis Osteopenia of multiple sites documented in this encounter Care Teams Ict Sales Representative Relationship Specialty Start Date End Date Julisa Kerr MD [address] [place] [address] PCP - General 02/22/11 Jessica Cortes MD [address] [place] [address] [place] [address] Internal Medicine-Rheumatology 04/26/16 documented as of this encounter
--- OUTSIDE RECORDS SUMMARY | 2024-08-22 21:50 | XMS_ITS | Encounter Summary ---
Author Organization [place] [address] Care Team Providers Care Program Director Group Work Name Role Phone Julisa Kerr MD Primary Care Provider [phone] Jessica Cortes MD Unavailable [phone] Reason for Visit * Reason Onset Date Comments Other 12/29/2018 Encounter Details Date Type Department Care Team (Late st Contact Info) Description 12/29/2018 Telephone [facility] [address] [facility] Building [address] [place] [phone] Jessica Cortes MD [address] [address] Other Social History Tobacco Use Types Packs/Day [...] Author No 10/01/2018 2:11 PM Gina Parada Beatriz, JARROD * Does this person have serious difficulty walking or climbing stairs? Answer Date of Assessment Author No 10/01/2018 2:11 PM Gina Parada Beatriz, MATTHEWA * Does this person have difficulty dressing [...] Parada Beatriz JARROD documented in this encounter Miscellaneous Notes * Telephone Encounter - Aleyda Naranjo MA - 12/31/2018 8:24 AM EDT Spoke with [facility] PA department ([phone]). They stated that PA needs to be faxed directly [facility] ([phone]). They will fax our office a PA form to fill out and send back. PA done and faxed back to [facility]. * Telephone Encounter - Rosibel Klein - 12/30/2018 3:49 PM EDT [facility] on behalf of [facility] Health plan regarding PA for Actemra. States that they received a request from us by fax for the PA for actemra, but he says that [facility] is not currently handling the PA's for [facility] yet (he states that on the website it says that they are but this is incorrect and they have not updated the information). He has the phone number for the [employer] for PA's that you can call to do the PA over the phone with them or when you call them they can give you the correct fax number to send PA request to, that phone number is [phone]. Thanks * Telephone Encounter - Aleyda Naranjo MA - 12/30/2018 3:00 PM EDT PA in process * Telephone Encounter - Gabrielle Carpenter, Clerical Staff - 12/30/2018 2:27 PM EDT PT HAS NEVER RECEIVED IT TO TAKE IT ! Actemra - SHE STATES SHE WAS APPROVED BUT CAN'T SEEM TO HAVE ANY PHARM SENT HER THE INJECTIONS , [facility] THEY ARE THE ONES THAT STATES IT HAS NOT BEEN APPROVED, PLEASE GIVE PT A CB * Telephone Encounter - Aleyda Naranjo MA - 12/29/2018 11:43 AM EDT Attempted to contact patient to see if she is on Actemra. It was reported in her chart on 12/23/2018at she was not taking this medication. * Telephone Encounter - Emerita Freeman - 12/29/2018 10:55 AM EDT [facility] VM RE: [facility] / [phone] Thank you. documented in this encounter Plan of Treatment Upcoming Encounters Date Type Department Care Team (Late st Contact Info) Description 08/31/2024 8:30 AM EST Appointment [facility] [address] [place] [address] 10/25/2024 10:45 AM EST Office Visit [facility] [address] [facility] [address] [place] [address] Jessica Cortes MD [address] [facility] [address] [place] [address] 01/25/2025 9:00 AM EDT Appointment [place] [address] [place] [address] 05/09/2025 11:00 AM EDT [address] [place] [address] 05/09/2025 11:15 AM EDT Appointment [address] [place] [address] Susana Garay MD [address] [place] [address] documented as of this encounter Goals Goal Patient Goal Type Associated Problems Recent Progress Patient-Stated? Author Maintain a healthy diet, exercise regularly and maintain an ideal body weight General Porsche Ashley, RN documented as of this encounter Visit Diagnoses Not on filedocumented in this encounter Care Teams Program Director Group Work Relationship Specialty Start Date End Date Julisa Kerr MD [address] [place] [address] PCP - General 02/22/11 Jessica Cortes MD [address] [facility] [address] [place] [address] Internal Medicine-Rheumatology 04/26/16 documented as of this encounter
--- OUTSIDE RECORDS SUMMARY | 2024-08-22 21:50 | XMS_ITS | Encounter Summary ---
Author Organization [place] [address] Care Team Providers Care Claim Review Medical Director Name Role Phone Julisa Kerr MD Primary Care Provider [phone] Jessica Cortes MD Unavailable [phone] Reason for Referral * MRI/CAT Scan (Routine) - Closed Specialty Diagnoses / Procedures Referred By Contac t Referred To Contact Radiology Diagnoses Chronic midline posterior neck pain Paresthesia of both hands Cervical radiculopathy Procedures MRI CERVICAL SPINE WO CONTRAST Julisa Kerr MD Phone: tel: fax: [address] [address] Phone: tel: Referral ID Status Reason Start Date Expiration Date Visits Re quested Visits Authorized [id number] Closed 12/23/2018 12/23/2019 1 1 Reason for Visit * MRI/CAT Scan (Routine) - Closed Specialty Diagnoses / Procedures Referred By Contac t Referred To Contact Radiology Diagnoses Chronic midline posterior neck pain Paresthesia of both hands Cervical radiculopathy Procedures MRI CERVICAL SPINE WO CONTRAST Julisa Kerr MD Phone: tel: fax: [address] [address] Phone: tel: Referral ID Status Reason Start Date Expiration Date Visits Re quested Visits Authorized [id number] Closed 12/23/2018 12/23/2019 1 1 Encounter Details Date Type Department Care Team (Late st Contact Info) Description 12/31/2018 1:43 PM EDT - 12/31/2018 11:59 PM EDT Hospital Encounter [facility] [address] [place], [place] [id number] Julisa Kerr MD [address] [place] [address] Chronic midline posterior neck pain; Paresthesia of both hands; Cervical radiculopathy Discharge Disposition: Home or Self Care Social [...] a week 100 Syringe 1 06/23/2017 09/20/20 19 methotrexate 25 mg/mL Inj SolutionIndication s:Rheumatoid arthritis involving multiple sites with positive rheumatoid factor (HCC) Subcutaneous (Inject under the skin) 0.8 mL every 7 days. 4 mL 1 11/11/2018 09/20/20 19 predniSONE (DELTASONE) 10 mg Oral TabletIndications: Rheumatoid arthritis involving multiple sites with positive rheumatoid factor (HCC) Take 1 Tab by mouth daily as needed. 30 Tab 01/05/2018 09/20/20 19 documented as of this encounter Discharge Disposition Disposition Code Departure Means Destination Home or Self Care documented in this encounter Plan of Treatment Upcoming Encounters Date Type Department Care Team (Late st Contact Info) Description 08/31/2024 8:30 AM EST Appointment [address] [address] [place] [address] 10/25/2024 10:45 AM EST Office Visit [facility] [address] [facility] [address] [place] [address] Jessica Cortes MD [address] [facility] [address] [place] [address] 01/25/2025 9:00 AM EDT Appointment [place] [address] [place] [address] 05/09/2025 11:00 AM EDT Appointment [facility] [place] [address] 05/09/2025 11:15 AM EDT Appointment [facility] [place] [address] Susana Garay MD [address] [place] [address] [place], [place] [id number] documented as of this encounter Goals Goal Patient Goal Type Associated Problems Recent Progress Patient-Stated? 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 RN documented as of this encounter Procedures Procedure Name Priority Date/Time Associated Diagnosis Comments MRI CERVICAL SPINE WO CONTRAST Routine 12/31/2018 2:42 PM EDT Chronic midline posterior neck pain Paresthesia of both hands Cervical radiculopathy documented in this encounter Results * MRI [...] CONTRAST, ??12/31/2018 2:42 PM ?? CLINICAL HISTORY: ??M54.5-Nxxhxksxjzq-QVU-10-CM G89.29-Other chronic qlbi-GYL-27-CM R20.2-Paresthesia of jihk-OGL-18-CM M54.12-Radiculopathy, cervical ynsese-FAD-71-CM COMPARISON: ??None. PROCEDURE COMMENTS: Multiplanar multiecho MR [...] WITHOUT CONTRAST, 12/31/2018 2:42 PM CLINICAL HISTORY: M54.5-Oyalbrzyghm-QWN-10-CM G89.29-Other chronic tiwp-XPQ-66-CM R20.2-Paresthesia of sqtl-GYN-29-CM M54.12-Radiculopathy, cervical gmsumf-EFW-00-CM COMPARISON: None. PROCEDURE COMMENTS: Multiplanar multiecho MR [...] stenosis or neural canal stenosis. - - Julisa [place] MD IMG MRI ORDERABLES Final Resul t documented in this encounter Visit Diagnoses Diagnosis Chronic midline posterior neck pain Cervicalgia Paresthesia of both hands Cervical radiculopathy Brachial neuritis or radiculitis nos documented in this encounter Care Teams Claim Review Medical Director Relationship Specialty Start Date End Date Julisa Kerr MD [address] [place] [address] PCP - General 02/22/11 Jessica Cortes MD [address] [facility] 19 [place] [address] Internal Medicine-Rheumatology 04/26/16 documented as of this encounter
--- OUTSIDE RECORDS SUMMARY | 2024-08-22 21:50 | XMS_ITS | Encounter Summary ---
Author Organization [place] [address] Care Team Providers Care Factory Assembler Name Role Phone Julisa Kerr MD Primary Care Provider [phone] Jessica Cortes MD Unavailable [phone] Reason for Visit * Reason Comments Follow-up 10 week Rheumatoid Arthritis Raynaud's Syndrome Osteopenia Foot Pain bilateral x 10 days 10/10 pain so bad she hard a hard time walking Rash blister, itchy like bump on scalp and hair line, arms bilateral * Consultation (Routine) - Closed Specialty Diagnoses / Procedures Referred By Anatoliy cole Referred To Contact Internal Medicine-Rheumatology / Rheumatology Diagnoses RA (rheumatoid arthritis) ([facility]) F/u 10 wk RA Procedures FOLLOW UP Julisa Kerr MD Phone: tel: fax: Jessica Cortes MD [address] [address] Phone: tel: fax: Referral ID Status Reason Start Date Expiration Date Visits Re quested Visits Authorized [id number] Closed 01/22/2019 01/22/2020 99 99 Encounter Details Date Type Department Care Team (Latest Contact Info) Description 03/03/2019 3:45 PM EDT Office Visit SEP Rheumatology [facility] [address] [address] Jessica Cortes MD 651 [facility] Building [address] [place] [address] Rheumatoid arthritis involving multiple sites with positive [...] Reading Time Taken Comments Blood Pressure 114/82 03/03/2019 3:09 PM EDT Pulse 84 03/03/2019 3:09 PM EDT Temperature - - Respiratory Rate 16 03/03/2019 3:09 PM EDT Oxygen Saturation - - Inhaled Oxygen Concentration - - Weight 59.9 kg (132 lb) 03/03/2019 3:09 PM EDT Height 157.5 cm (5' 2 ) 03/03/2019 3:09 PM EDT Body Mass Index 24.14 03/03/2019 3:09 PM EDT documented in this encounter Functional [...] Assessment Author No 10/01/2018 2:11 PM Gina Paarda RMA documented as of this encounter Mental Status * Because of a physical, mental or emotional condition, does this person have serious difficulty concentrating, remembering or making decisions? Answer Entry Date Author No 10/01/2018 2:11 PM Gina Parada RMA documented in this encounter Ordered Prescriptions Prescription Sig Dispense Quantity Refills Last Filled Start Date End Date tofacitinib (XELJANZ XR) 11 mg Oral Tablet Sustained Release 24 hrIndications:Rheum atoid arthritis involving multiple sites with positive rheumatoid factor (HCC) Take 11 mg by mouth daily. 90 Tab 1 03/03/2019 09/20/2019 documented in this encounter Progress Notes * Jessica Cortes MD - 03/03/2019 3:45 PM EDT Subjective Subjective: Patient ID: Yuliet Newsome is a 48 y.o. female. Chief Complaint Patient presents with ??? Follow-up 10 week ??? Rheumatoid Arthritis ??? Raynaud's Syndrome ??? Osteopenia ??? Foot Pain bilateral x 10 days 10/10 pain so bad she hard a hard time walking ??? Rash blister, itchy like bump on scalp and hair line, arms bilateral HPI The patient comes in for follow up regarding RA. Symptoms started in 2002. Seen by Magazine Repairer, Dr. Astorga. She was seen in [facility] but have not seen her in [...] pimples,pustules and it was discontinued. Enbrel was added afterwards around 2012. She tolerates it well and it seems to work well. She reported flares every 3 months while on treatment. More joint pain on one side or the other, joint swelling and pain, tender joints. In between the flares she has mild pain- 3/10, mild swelling. Has been still having a lot of pain. Started Actemra about a month ago. Started getting mouth soresand blisters on the upper arms. She gets ulcers a day after Actemra injections. Last injection Friday. Has not noticed any changes as far as the joint pian. Her feet have been bothering her more. Helpeda friend clean the house and is not sure whether that contributed. Dry eyes realy bothersome. Uses eye drops. Dry mouth pretty bothersome. Joint pain: hands, mainly knuckles, wrists, shoulders, ankles, feet Joint swelling: knuckles Pain on a scale 0-10: 7.5/10 Type of pain: ache Morning stiffness: 30-40 minutes. Raynaud's: worsened in the cold weather. Current therapy: MTX 20 mg q week ( for the last 13 years), Actemra 162 mg SQ q 1 week started 12/2018 , prednisone taper as needed Previous therapy: Tylenol, Codeine, Darvocet, Motrin, Naproxen, Celebrex, Lodine did not help, MTX helped some, Enbrel 50 mg sq q week (since 2012- till 01/2018)- ineffective, Humira- rash, Remicade- ineffective, Orencia 125 mg SQ weekly- started 04/2018, d/c'ed 10/2018. Patients past medical, family and social histories were reviewed and updated. There were no changesexcept as noted. 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 Past Medical History: Diagnosis Date ??? Arthritis Past Surgical History: Procedure Laterality Date ??? HYSTEROSCOPY ??? BARBIE AND BSO 2001 Allergies Allergen Reactions ??? Mobic [Meloxicam] Hives Current Outpatient Medications on File Prior to Visit Medication Sig Dispense Refill ??? amitriptyline (ELAVIL) 25 mg Oral Tablet TAKE 1 TABLET BY MOUTH EVERY DAY AT NIGHT 30 Tab 2 ??? cyanocobalamin 1,000 mcg/mL Inj Solution INJECT 1ML INTO THE MUSCLE EVERY MONTH 1 mL 3 ??? fluticasone (FLONASE) 50 mcg/actuation Nasl Lena, Suspension 1 Lena by Nasal route daily. 1 Bottle 2 ??? folic acid (FOLVITE) 1 mg Oral Tablet TAKE 1 TABLET BY MOUTH EVERY DAY 30 Tab 5 ??? Insulin Syringe-Needle U-100 [...] daily as needed. 30 Tab 0 ??? VENTOLIN HFA 90 mcg/actuation [...] reviewed and are negative. Objective Objective: Vitals: 03/03/19 1509 BP: 114/82 Pulse: 84 Resp: 16 Weight: 132 lb (59.9 kg) Height: 5' 2 (1.575 m) Body mass index is 24.14 kg/m??. Physical Exam Constitutional: She is oriented to person, place, and time. She appears well- developed and well-nourished. HENT: Head: Normocephalic and atraumatic. Eyes: Pupils are equal, round, and reactive to light. Conjunctivae are normal. Neck: Normal range of motion. Musculoskeletal: Tenderness to the trapezius muscles, spional processes of the cervical and lumbar spine and paraspinals in the lumbar area. Crepitus in the right shoulder. Tenderness to both wrists, 2nd, 3rd, 5th right MCP, 1st- 3rd left MCP, 2nd-5th right PIP, 1-4th left PIP, MTP joints bilaterally. Synovitis in the wrists, 1st, 2nd, 5th right MCP, 3rd right PIP, 1st left MCP, 3rd left PIP. ROM of the knees, ankles intact, no effusion. ROM of the wrists decreased. No tenderness to the trochanteric bursa. Neurological: She is alert and oriented to person, place, and time. Muscle strength 5/5 upper and lower extremities. Skin: Skin is warm. No rash noted. Psychiatric: She has a normal mood and affect. Vitals reviewed. Rapid 3: 19.3 Lab Results Component Value Date WBC 8.3 01/04/2019 HGB 14.7 01/04/2019 HCT 45.5 (H) 01/04/2019 MCV 88.2 01/04/2019 PLT 322 01/04/2019 Chemistry Component Value Date/Time NA 141 01/04/2019 1050 NA 140 07/01/2017 1532 K 4.2 01/04/2019 1050 K 3.9 07/01/2017 1532 CL 104 01/04/2019 1050 CL 102 07/01/2017 1532 CO2 25 01/04/2019 1050 CO2 22 07/01/2017 1532 BUN 8 01/04/2019 1050 BUN 11 07/01/2017 1532 CREATININE 0.78 01/04/2019 1050 CREATININE 0.78 07/01/2017 1532 GLU 91 01/04/2019 1050 GLU 103 (H) 07/01/2017 1532 Component Value Date/Time CALCIUM 9.8 01/04/2019 1050 CALCIUM 9.3 07/01/2017 1532 ALKPHOS 109 01/04/2019 1050 ALKPHOS 98 07/01/2017 1532 AST 18 01/04/2019 1050 AST 16 07/01/2017 1532 ALT 10 01/04/2019 1050 ALT 16 07/01/2017 1532 Lab Results Component Value Date CRP 9.51 (H) 01/04/2019 Lab Results Component Value Date SEDRATE 23 (H) 01/04/2019 MR CERVICAL SPINE WITHOUT CONTRAST, 12/31/2018 2:42 PM ?? CLINICAL HISTORY: M54.1-Pbvdrveqjoi-KSK-10-CM G89.29-Other chronic llwk-DQD-96-CM R20.2-Paresthesia of ktfw-ZWU-83-CM M54.12-Radiculopathy, cervical uxyxsr-FJK-35-CM ?? COMPARISON: None. ?? PROCEDURE COMMENTS: Multiplanar multiecho MR imaging of the cervical spine per protocol. ?? FINDINGS: ?? Bony alignment and marrow signal intensity are within normal limits. There are degenerative disc changes at the C5-C6 and C6-C7 levels manifested by disc space narrowing and endplate spurring. The cervical cord is normal in morphology and signal intensity. No cord compression or deformity. ?? Incidentally noted is a mucous retention cyst posterior sphenoid sinus. ?? Cord signal unremarkable. ?? Level by level analysis: ?? C2/C3: Neural canal and neural foramen are patent. ?? C3/C4: Neural canal and neural foramen are patent. ?? C4/C5: Neural canal and neural foramen are patent. ?? C5/C6: Degenerative disc changes including broad-based protrusion disc and spur. This is creates some mild narrowing of the right neural foramen. Left foramen is patent. ?? C6/C7: Degenerative disc changes including mild diffuse endplate spurring. Neural canal and neural foramen are patent. ?? C7/T1: Neural canal neural foramen are patent. ?? IMPRESSION: Degenerative disc changes at the C5-C6 and C6-C7 levels. No high-grade foraminal stenosis or neural canal stenosis. Assessment and Plan: Yuliet was seen today for follow-up, rheumatoid arthritis, raynaud's syndrome, osteopenia, foot painand rash. Diagnoses and all orders for this visit: Rheumatoid arthritis involving multiple sites, with positive rheumatoid factor (HCC) Dx in 2002 [address] previously [address] Dr. Astorga in [facility]. Records from [facility] received and reviewed. The patient was seen in 05/11/13 for initial evaluation. Presented with polyarticular joint involvement- large and small joints- shoulders, elbows, knees, wrists, knuckles, toes. Per records she had low titer (+) RF, negative CCP, (+) BRET centromere pattern > 8.0 with negative SSA/SSB, TEACHER, Scl 70, dsDNA Records indicate she used [...] of the feet from 03/2016 were normal. Last Vectra DA 20 - low disease activity, [...] in 04/2018, and to 25 mg sq 08/25/18 Enbrel 50 mg sq q week ( since 2012), run out 09/2016, restarted 03/10/17 after PPD done and negative. RA active while on Enbrel- periodic flares of the swelling of the joints, synovitis in the few MCP joints, wrists. Enbrel changed to Orencia 125 mg SQ weekly 04/2018. Orencia changed to Actemra 162 mg sq 1 week in 12/2018. Actemra caused mouth sores and rash- blistering. Tenderness to both wrists, 2nd, 3rd, 5th right MCP, 1st- 3rd left MCP, 2nd-5th right PIP, 1-4th left PIP. Synovitis in the wrists, 1st, 2nd, 5th right MCP, 3rd right PIP, 1st left MCP, 3rd left PIP. Will change Actemra to Xeljanz 11 mg daily, samples given PPD negative. Hepatitis panel negative. Patient should hold therapy while being treated for infections. Patient should not receive live vaccines while on therapy. - tofacitinib (XELJANZ XR) 11 mg Oral Tablet Sustained Release 24 hr; Take 11 mg by mouth daily. Raynaud's phenomenon without gangrene [...] D daily Weight bearing exercises regularly DXA shows low bone mass. Improved in the spine and stable in the hip in comparison to the last DXA from 2016 Trochanteric bursitis of right hip Improved No tenderness to the right trochanteric bursa x rays of the hip reveals mild symmetrical joint space narrowing in both hips Trochanteric bursa exercises discussed, info given. Topical OTC creams Immunocompromised patient (HCC) Due to immunosuppression Prevnar 13 given 12/13/16 Pneumovax 23 given 03/17/17 Therapeutic drug monitoring PPD negative 05/26/18. Labs today and every 6-8 weeks while on MTX and Xeljanz Lipid panel in 10/2018, normal. Will recheck 3 months after starting Xeljanz. Return in about 3 months (around 06/03/2019). documented in this encounter Plan of Treatment Upcoming Encounters Date Type Department Care Team (Late st Contact Info) Description 08/31/2024 8:30 AM EST Appointment [facility] Cancer Care [address] [place] [address] 10/25/2024 10:45 AM EST Office Visit [facility] RHEUMATOLOGY [facility] [address] [place] [address] Jessica Cortes MD [address] [facility] Building [address] [place] [address] 01/25/2025 9:00 AM EDT Appointment [place] [address] [place] [address] 05/09/2025 11:00 AM EDT Appointment [place] [address] [place] [address] 05/09/2025 11:15 AM EDT [address]ment [address] [place] [address] Susana Garay MD [address] [place] [address] [place] [address] documented as of this encounter Goals Goal [...] Discontinue Reason Start Date End Da te tocilizumab (ACTEMRA) 162 mg/0.9 mL SubQ SyringeIndications:Rh eumatoid arthritis involving multiple sites with positive rheumatoid factor (HCC),Therapeutic drug monitoring Subcutaneous (Inject under the skin) 0.9 mL once a week. Side effects 11/11/2018 03/03/2019 documented as of this encounter Care Teams Factory Assembler Relationship Specialty Start Date End Date Julisa Kerr MD [address] [place] [address] PCP - General 02/22/11 Jessica Cortes MD 651 [facility] 19 [place] [address] Internal Medicine-Rheumatology 04/26/16 documented as of this encounter
--- OUTSIDE RECORDS SUMMARY | 2024-08-22 21:50 | XMS_ITS | Encounter Summary ---
Author Organization [place] [address] Care Team Providers Care Garment Presser Name Role Phone Julisa Kerr MD Primary Care Provider [phone] Jessica Cortes MD Unavailable [phone] Reason for Visit * Physical Therapy (Routine) - Closed Specialty Diagnoses / Procedures Referred By Contac t Referred To Contact Clinic/Center-Physical Therapy / Physical Therapy Diagnoses hip Procedures PT EVAL 60 Jessica Cortes MD 651 [place] [address] Phone: tel: fax: Rae Caro, PT [address] [place] [address] Phone: tel: fax: Referral ID Status Reason Start Date Expiration Date Visits Re quested Visits Authorized [id number] Closed 12/18/2018 01/17/2019 6 6 Encounter Details Date Type Department Care Team (Latest Contact Info) Description 12/28/2018 1:30 PM EDT - 12/28/2018 11:59 PM EDT Hospital Encounter [facility] Physical Therapy [facility] [address] [place] [address] Rae Caro, PT [address] [place] [address] Discharge Disposition: Home or Self [...] Progress Notes * Rae Caro, PT - 12/28/2018 12:12 PM EDT Images from the original note were not included. Therapy Daily Progress Note Date: 12/28/2018 Name: Yuliet Newsome : 1970 Visit #?? /Insurance : 3 out of 6 visits /passport Onset Date: 09/17/19 Diagnosis: neck pain Precautions: RA Follow Up: Sebastian : Future Appointments Date Time Provider Department Center 01/22/2019 10:45 AM Jessica Cortes MD [facility] Medication Changes: No changes in meds Reassessment Date: 01/18/19 FOTO Date: 01/18/19 G-codes due: 01/18/19 Time In/Out: 139-205 She entered dept at 138- Subjective 5-03/08 HEP: Independent and Compliant Objective Education: Needs Assistance: Yes Understood: Yes Treatment: Therapeutic exercises: 13 min Shoulder rolls x [address] Sitting ; cervical retraction x5 sec x 10, red band with scapular retraction x 5 sec x 15 ,red shoulder extension x 10 reps. doorway stretch with hands low x 20 sec x 3, Manual therapy : 14 min STM x to neck ??Total timed tx: 27 min min TE x 1,TA x 1 Assessment Therapeutic exercises for posture and manual therapy to decrease muscle tightness. Right neck is very tight. Plan Continue PT: Rae Caro, PT documented in this encounter Plan of Treatment Upcoming Encounters Date Type Department Care Team (Late st Contact Info) Description 08/31/2024 8:30 AM EST Appointment [facility] Cancer [address] [place] [address] 10/25/2024 10:45 AM EST Office Visit EDG RHEUMATOLOGY [facility] [address] [place] [address] Jessica Cortes MD 651 [facility] Building [address] [place] [address] 01/25/2025 9:00 AM EDT Appointment [address] [place] [address] 05/09/2025 11:00 AM EDT Appointment [address] [address] 05/09/2025 11:15 AM EDT Appointment [address] [address] Susana Garay MD [address] [place], [place] [address] documented as of this encounter Goals Goal Patient Goal Type Associated Problems Recent Progress Patient-Stated? Author Maintain a healthy diet, exercise regularly and maintain an ideal body weight General Porsche Ashley, RN documented as of this encounter Visit Diagnoses Not on filedocumented in this encounter Care Teams Garment Presser Relationship Specialty Start Date End Date Julisa Kerr MD [address] [place] [address] PCP - General 02/22/11 Jessica Cortes MD [address] [place] [address] Internal Medicine-Rheumatology 04/26/16 documented as of this encounter
--- OUTSIDE RECORDS SUMMARY | 2024-08-22 21:50 | XMS_ITS | Encounter Summary ---
Author Organization [place] [address] Care Team Providers Care Nba Player Name Role Phone Julisa Kerr MD Primary Care Provider [phone] Jessica Cortes MD Unavailable [phone] Reason for Visit * Reason Onset Date Comments Other 01/06/2019 Encounter Details Date Type Department Care Team (Late st Contact Info) Description 01/06/2019 Telephone SEP Rheumatology [facility] 651 [facility] Building [address] [place] [address] Jessica Cortes MD [address] [address] Other Social History Tobacco Use [...] * Telephone Encounter - Rivka Capellan - 01/06/2019 1:07 PM EDT Pt call back and understood message, thanks * Telephone Encounter - Mel Michaels RMA - 01/06/2019 10:01 AM EDT Left detailed message on patient's voicemail regarding Dexa scan results and x- ray C-spine from 10/2018. Patient will need to get the MRI results from ordering physician Dr Usha MULLINS. * Telephone Encounter - Demetria Dumont - 01/06/2019 9:[address] Cortes pt wants to know her xray results. Please call pt. documented in this encounter Plan of Treatment Upcoming Encounters Date Type Department Care Team (Late st Contact Info) Description 08/31/2024 8:30 AM EST Appointment [facility] [place] [address] [place] [address] 10/25/2024 10:45 AM EST Office Visit [facility]G RHEUMATOLOGY [facility] 651 [facility] [address] [place] [address] Jessica Cortes MD 651 [facility] 19 [place] [address] 01/25/2025 9:00 AM EDT Appointment [address] [place] [address] 05/09/2025 11:00 AM EDT Appointment [address] [place] [address] 05/09/2025 11:15 AM EDT Appointment [address] [place] [address] Susana Garay MD [address] [place] [address] [place] [address] documented as of this encounter Goals Goal Patient Goal Type Associated Problems Recent Progress Patient-Stated? 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, RN documented as of this encounter Visit Diagnoses Not on filedocumented in this encounter Care Teams Nba Player Relationship Specialty Start Date End Date Julisa Kerr MD [address] [place] [address] PCP - General 02/22/11 Jessica Cortes MD 651 [facility] 19 [place] [address] Internal Medicine-Rheumatology 04/26/16 documented as of this encounter
--- OUTSIDE RECORDS SUMMARY | 2024-08-22 21:50 | XMS_ITS | Encounter Summary ---
Author Organization [place] [address] Care Team Providers Care Sleeping Car Conductor Name Role Phone Julisa Kerr MD Primary Care Provider [phone] Jessica Cortes MD Unavailable [phone] Reason for Referral * EMG (Routine) - Closed Specialty Diagnoses / Procedures Referred By Contac t Referred To Contact Electromyography Diagnoses Numbness in both hands Rheumatoid arthritis involving multiple sites with positive rheumatoid factor (HCC) Osteopenia, unspecified location Immunocompromised patient (HCC) Procedures EMG Julisa Kerr MD Phone: tel: fax: [facility] EMG [address] [facility] [address], [place] [address] Phone: tel: fax: Referral ID Status Reason Start Date Expiration Date Visits Re quested Visits Authorized [id number] Closed 01/21/2019 01/21/2020 1 1 Reason for Visit * EMG (Routine) - Closed Specialty Diagnoses / Procedures Referred By Contac t Referred To Contact Electromyography Diagnoses Numbness in both hands Rheumatoid arthritis involving multiple sites with positive rheumatoid factor (HCC) Osteopenia, unspecified location Immunocompromised patient (HCC) Procedures EMG Julisa Kerr MD Phone: tel: fax: [facility] EMG [address] [place] [address] Phone: tel: fax: Referral ID Status Reason Start Date Expiration Date Visits Re quested Visits Authorized [id number] Closed 01/21/2019 01/21/2020 1 1 Encounter Details Date Type Department Care Team (Latest Contact Info) Description 01/29/2019 7:42 AM EDT - 01/29/2019 11:59 PM EDT Hospital Encounter [facility] EMG [address] [place] [address] [facility] Carpal tunnel syndrome of right wrist (Primary Dx); Numbness in both hands; Rheumatoid arthritis involving multiple sites with positive rheumatoid factor (HCC); Osteopenia, unspecified location; Immunocompromised patient (HCC) Discharge Disposition: Home or Self Care [...] [facility] [address] [place] [address] 10/25/2024 10:45 AM EST Office Visit EDG RHEUMATOLOGY [facility] [address] [facility] [address] [place] [address] eJssica Cortes MD 651 [facility] [address] [place] [address] 01/25/2025 9:[address] [facility] [place] [address] [address] 05/09/2025 11:[address] [facility] [address] [address] 05/09/2025 11:[address] [facility] [address] [address] Susana Garay MD [address] [facility] [place] [address] documented as of this encounter Goals Goal Patient Goal Type Associated Problems Recent Progress Patient-Stated? Author Maintain a healthy diet, exercise regularly and maintain an ideal body weight General Porsche Ashley RN documented as of this encounter Procedures Procedure Name Priority Date/Time Associated Diagnosis Comments EMG Routine 01/29/2019 Numbness in both hands Rheumatoid arthritis involving multiple sites with positive rheumatoid factor (HCC) Osteopenia, unspecified location Immunocompromised patient (HCC) documented in this encounter Results * (ABNORMAL) EMG (01/29/2019) Impressions SEP OFFICE - 01/29/2019 There is evidence of a right median neuropathy, at or distal to the wrist (consistent with carpal tunnel syndrome), mild in degree electrically. This is otherwise a normal study of the bilateral upper extremities. Yg Wilks M.D. Diplomate, [place] [employer] Narrative SEP OFFICE [...] documented in this encounter Visit Diagnoses Diagnosis Carpal tunnel syndrome of right wrist- Primary Carpal tunnel syndrome Numbness in both hands Disturbance of skin sensation Rheumatoid arthritis involving multiple sites with positive rheumatoid factor (HCC) Osteopenia, unspecified location Immunocompromised patient (HCC) Unspecified immunity deficiency documented in this encounter Care Teams Sleeping Car Conductor Relationship Specialty Start Date End Date Julisa Kerr MD [address] [place] [address] PCP - General 02/22/11 Jessica Cortes MD [address] [place] [id number] Internal Medicine-Rheumatology 04/26/16 documented as of this encounter
--- OUTSIDE RECORDS SUMMARY | 2024-08-22 21:50 | XMS_ITS | Encounter Summary ---
[place] [address] Care Team Providers Care Sorter Laundry Articles Name Role Phone Julisa Kerr MD Primary Care Provider [phone] Jessica Cortes MD Unavailable [phone] Reason for Visit * Reason Comments Medication Refill Encounter Details Date Type Department Care Team (Late st Contact Info) Description 01/23/2019 Refill SEP Rheumatology [facility] 651 [facility] Building [address] [place] [phone] Jessica Cortes MD [address] [place] [phone] Medication Refill Social History Tobacco Use Types [...] Author No 10/01/2018 2:11 PM Gina Paarda Beatriz JARROD documented as of this encounter [...] MOUTH EVERY DAY 30 Tab 5 01/25/2019 09/20/2019 documented in this encounter Plan of Treatment Upcoming Encounters Date Type Department Care Team (Late st Contact Info) Description 08/31/2024 8:30 AM EST Appointment [address] [place] [address] 10/25/2024 10:45 AM EST Office Visit [facility] RHEUMATOLOGY [facility] [address] [place] [address] Jessica Cortes MD [address] [facility] Building 19 [place] [address] 01/25/2025 9:00 AM EDT Appointment [place] [address] [place] [address] 05/09/2025 11:00 AM EDT Appointment [place] [address] [place], [place] [address] 05/09/2025 11:15 AM EDT Appointment [facility] [address] 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 Reorder 08/10/2018 01/23/2019 documented as of this encounter Care Teams Sorter Laundry Articles Relationship Specialty Start Date End Date Julisa Kerr MD 100 [place] [address] PCP - General 02/22/11 Jessica Cortes MD [address] [place] [address] Internal Medicine-Rheumatology 04/26/16 documented as of this encounter
--- OUTSIDE RECORDS SUMMARY | 2024-08-22 21:50 | XMS_ITS | Encounter Summary ---
Author Organization [place] [address] Care Team Providers Care Bilingual Spanish Inbound Sales Name Role Phone Julisa Kerr MD Primary Care Provider [phone] Jessica Cortes MD Unavailable [phone] Reason for Referral * Consultation (Routine) - Closed Specialty Diagnoses / Procedures Referred By Contac t Referred To Contact Diagnoses Neck pain, chronic Julisa Kerr MD Phone: tel: fax: Referral ID Status Reason Start Date Expiration Date Visits Re quested Visits Authorized [id number] Closed 03/04/2019 03/03/2020 99 99 Reason for Visit * Reason Onset Date Comments Referral 03/03/2019 Encounter Details Date Type Department Care Team (Late st Contact Info) Description 03/03/2019 Telephone [facility] 100 [place] [address] Julisa Kerr MD 100 [place] [address] Referral Social History Tobacco Use Types Packs/Day Years [...] encounter Miscellaneous Notes * Telephone Encounter - Elo Priest MA - 03/05/2019 7:49 AM EDT Referral and records faxed * Telephone Encounter - Julisa Kerr MD - 03/04/2019 5:22 PM EDT Ok for referral but need to know full name and specialty for referral. * Telephone Encounter - Luciano Kenney RMA - 03/03/2019 11:52 AM EDT Please advise. * Telephone Encounter - Irma Sim - 03/03/2019 11:44 AM EDT Patient would like a referral for a editorial specialist. She would like to go see Dr. Marquez with [facility] services. 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 documented in this encounter Plan of Treatment Upcoming Encounters Date Type Department Care Team (Late st Contact Info) Description 08/31/2024 8:30 AM EST Appointment [place] [address] [place] [address] 10/25/2024 10:45 AM EST Office Visit [facility] RHEUMATOLOGY [facility] [address] [place] [address] Jessica Cortes MD [address] [facility] Building 19 [place] [address] 01/25/2025 9:00 AM EDT [address]ointment [address] [place] [address] 05/09/2025 11:00 AM EDT [address]ointment [address] [place] [address] 05/09/2025 11:15 AM EDT Appointment [address] [place] [address] Susana Garay MD [address] [place] [address] [place] [address] Scheduled Referrals Name Type Priority Associated Diagnoses Orde r Schedule AMB REFERRAL TO PAIN CLINIC Outpatient Referral Routine Neck pain, chronic Ordered: 03/04/2019 documented as of this encounter Goals Goal Patient Goal Type Associated Problems Recent Progress Patient-Stated? 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 RN documented as of this encounter Visit Diagnoses Diagnosis Neck pain, chronic- Primary Cervicalgia documented in this encounter Care Teams Bilingual Spanish Inbound Sales Relationship Specialty Start Date End Date Julisa Kerr MD 100 [place] [address] PCP - General 02/22/11 Jessica Cortes MD 651 [place] [address] Internal Medicine-Rheumatology 04/26/16 documented as of this encounter
--- OUTSIDE RECORDS SUMMARY | 2024-08-22 21:50 | XMS_ITS | Encounter Summary ---
Author Organization [place] [address] Care Team Providers Care Roof Slater Name Role Phone Julisa Kerr MD Primary Care Provider [phone] Jessica Cortes MD Unavailable [phone] Reason for Visit * Reason Comments Medication Refill Encounter Details Date Type Department Care Team (Late st Contact Info) Description 09/10/2019 Refill SEP [facility] [employer] [facility] 100 [place] [address] Julisa Kerr MD 100 [place] [address] Medication Refill Social History Tobacco Use Types [...] MANUEL CarranzaGina JARROD documented in this encounter Plan of Treatment Upcoming Encounters Date Type Department Care Team (Late st Contact Info) Description 08/31/2024 8:30 AM EST Appointment [place] [address] [address] [place] [address] 10/25/2024 10:45 AM EST Office Visit EDG RHEUMATOLOGY [facility] 651 [facility] [address] [place] [address] Jessica Cortes MD [address] [place] [address] Building 19 [place] [address] 01/25/2025 9:00 AM EDT Appointment [place] [address] [address] [place] [address] 05/09/2025 11:00 AM EDT Appointment [place] [address] [address] [place] [address] 05/09/2025 11:15 AM EDT Appointment [place] [address] [place] [address] Susana Garay MD [address] [place] [address] [place] [address] documented as of this encounter Goals Goal Patient Goal Type Associated Problems Recent Progress Patient-Stated? Author Maintain a healthy diet, exercise regularly and maintain an ideal body weight General Porsche Ashley, RN documented as of this encounter Visit Diagnoses Diagnosis Insomnia, unspecified type documented in this encounter Care Teams Roof Slater Relationship Specialty Start Date End Date Julisa Kerr MD 100 [place] [address] PCP - General 02/22/11 Jessica Cortes MD [address] [address] Internal Medicine-Rheumatology 04/26/16 documented as of this encounter
--- OUTSIDE RECORDS SUMMARY | 2024-08-22 21:50 | XMS_ITS | Encounter Summary ---
Author Organization [place] [address] Care Team Providers Care Sales Administration Specialist Name Role Phone Julisa Kerr MD Primary Care Provider [phone] Jessica Cortes MD Unavailable [phone] Encounter Details Date Type Department Care Team (Latest Contact Info) Description 11/11/2018 2:25 PM EST - 11/11/2018 11:59 PM EST Hospital Encounter EDG D-WING XRAY [facility] [place] [address] Neck pain Discharge Disposition: Home or Self Care [...] Parada Beatriz JARROD documented in this encounter Medications at [...] Info) Description 08/31/2024 8:30 AM EST Appointment [facility] [address] [place] [address] 10/25/2024 10:45 AM EST Office Visit EDG RHEUMATOLOGY [facility] [address] [facility] [address] [place] [address] Jessica Cortes MD [address] Building 19 [place] [address] 01/25/2025 9:00 AM EDT Appointment [place] [address] [place] [address] [place] [address] 05/09/2025 11:00 AM EDT Appointment [place] [address] [place] [address] [address] 05/09/2025 11:15 AM EDT Appointment [facility] [place] [address] [place] [address] Susana Garay MD [address] [place] [address] [place] [address] documented as of this encounter Goals Goal Patient Goal Type Associated Problems Recent Progress Patient-Stated? 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 RN documented as of this encounter Procedures Procedure Name Priority Date/Time Associated Diagnosis Comments XR CERVICAL SPINE AP LATERAL FLEXION EXTENSION Routine 11/11/2018 2:37 PM EST Neck pain documented in this encounter Results * XR CERVICAL SPINE AP LATERAL FLEXION EXTENSION (11/11/2018 2:37 PM EST) Anatomical Region Laterality Modality C-spine Radiographic Fall[place] ging 11/11/2018 2:37 PM EST Impressions 11/11/2018 2:43 PM EST No acute bony abnormality of the cervical spine. No evidence of instability. Narrative 11/11/2018 2:43 PM EST AP, LATERAL C-SPINE WITH FLEX/EXT VIEWS, ??11/11/2018 2:37 PM CLINICAL HISTORY: ??[id number] COMPARISON: ??04/22/2016 PROCEDURE COMMENTS: AP and lateral views of the cervical spine with lateral flexion and extension views. FINDINGS: ?? No fracture or malalignment. Soft tissues unremarkable. Flexion and extension views show no evidence of instability. Mild discogenic spurring with disc space narrowing C5-C6, stable. Procedure Note Edwin Carey MD - 11/11/2018 AP, LATERAL C-SPINE WITH FLEX/EXT VIEWS, 11/11/2018 2:37 PM CLINICAL HISTORY: [id number] COMPARISON: 04/22/2016 PROCEDURE COMMENTS: AP and lateral views of the cervical spine withlateral flexion and extension views. FINDINGS: No fracture or malalignment. Soft tissues unremarkable. Flexion andextension views show no evidence of instability. Mild discogenic spurring with disc space narrowing C5-C6, stable. IMPRESSION: No acute bony abnormality of the cervical spine. No evidence of instability. Jessica Cortes MD IMG DIAGNOSTIC IMAGING OR DERABLES Final Result documented in this encounter Visit Diagnoses Diagnosis Neck pain Cervicalgia documented in this encounter Care Teams Sales Administration Specialist Relationship Specialty Start Date End Date Julisa Kerr MD 100 [place] [address] PCP - General 02/22/11 Jessica Cortes MD 651 [facility] Building 19 [place] [address] Internal Medicine-Rheumatology 04/26/16 documented as of this encounter
--- OUTSIDE RECORDS SUMMARY | 2024-08-22 21:50 | XMS_ITS | Encounter Summary ---
Author Organization [place] [address] Care Team Providers Care Performance Management Consultant Name Role Phone Julisa Kerr MD Primary Care Provider [phone] Jessica Cortes MD Unavailable [phone] Reason for Visit * Reason Onset Date Comments Other 01/09/2019 Encounter Details Date Type Department Care Team (Late st Contact Info) Description 01/09/2019 Telephone [facility] 100 [place] [address] Julisa Kerr MD 100 [place] [address] Other Social History Tobacco Use Types Packs/Day [...] flare of cold sore 12 Tab 1 01/09/2019 10/22/2019 documented in this encounter Miscellaneous Notes * Telephone Encounter - Irma Sim - 01/09/2019 8:31 AM EDT Patient needs a new script of Valtrex called in. documented in this encounter Plan of Treatment Upcoming Encounters Date Type Department Care Team (Late st Contact Info) Description 08/31/2024 8:30 AM EST Appointment [facility] Cancer [facility] Center [address] [place] [address] 10/25/2024 10:45 AM EST Office Visit [facility] RHEUMATOLOGY [facility] [address] [facility] [address] [place] [address] Jessica Cortes MD [address] [facility] Building 19 [place] [address] 01/25/2025 9:00 AM EDT Appointment [place] [address] [place] [address] 05/09/2025 11:00 AM EDT Appointment [facility] [place] [address] [address] 05/09/2025 11:15 AM EDT Appointment [facility] [place] [address] Susana Garay MD [address] [place] [address] [address] [place] [id number] documented as of this encounter Goals Goal [...] days. Per flare of cold sore Reorder 12/24/2017 01/09/2019 documented as of this encounter Care Teams Performance Management Consultant Relationship Specialty Start Date End Date Julisa Kerr MD 100 [place] [address] PCP - General 02/22/11 Jessica Cortes MD 651 [facility] 19 [place], [place] [address] Internal Medicine-Rheumatology 04/26/16 documented as of this encounter
--- OUTSIDE RECORDS SUMMARY | 2024-08-22 21:50 | XMS_ITS | Encounter Summary ---
Author Organization [place] [address] Care Team Providers Care Fish Packer Name Role Phone Julisa Kerr MD Primary Care Provider [phone] Jessica Cortes MD Unavailable [phone] Reason for Visit * Reason Comments Medication Refill Encounter Details Date Type Department Care Team (Late st Contact Info) Description 08/13/2019 Refill SEP [facility] 100 [place] [address] Julisa Kerr MD 100 [place] [address] Medication Refill Social History Tobacco Use Types [...] 2:11 PM MANUEL Carranza Ginacharly Henderson JARROD documented in this encounter Ordered Prescriptions Prescription Sig Dispense Quantity Refills Last Filled Start Date End Date cyanocobalamin 1,000 mcg/mL Inj Solution INJECT 1ML INTO THE MUSCLE EVERY MONTH 1 mL 3 08/13/2019 11/25/2019 documented in this encounter Plan of Treatment Upcoming Encounters Date Type Department Care Team (Late st Contact Info) Description 08/31/2024 8:30 AM EST Appointment [address] [place] [address] 10/25/2024 10:45 AM EST Office Visit [facility]G RHEUMATOLOGY [facility] [address] [place] [address] Jessica Cortes MD [address] [facility] Building 19 [place] [address] 01/25/2025 9:00 AM EDT Appointment [address] [place] [address] 05/09/2025 11:00 AM EDT Appointment [address] [place] [address] 05/09/2025 11:15 AM EDT Appointment [facility] Cancer [facility] Center [address] [place] [address] Susana Garay MD [address] [place] [address] [place] [address] documented as of [...] 1ML INTO THE MUSCLE EVERY MONTH Reorder 04/17/2019 08/13/2019 documented as of this encounter Care Teams Fish Packer Relationship Specialty Start Date End Date Julisa Kerr MD 100 [place], [place] [address] PCP - General 02/22/11 Jessica Cortes MD 651 [facility] 19 [place] [address] Internal Medicine-Rheumatology 04/26/16 documented as of this encounter
--- OUTSIDE RECORDS SUMMARY | 2024-08-22 21:50 | XMS_ITS | Encounter Summary ---
Author Organization [place] [address] Care Team Providers Care Account Services Representative Name Role Phone Julisa Kerr MD Primary Care Provider [phone] Jessica Cortes MD Unavailable [phone] Reason for Visit * Reason Comments Medication Refill Encounter Details Date Type Department Care Team (Late st Contact Info) Description 12/24/2018 Refill SEP [facility] 100 [place] [address] Julisa Kerr MD 100 [place] [address] Medication Refill Social History Tobacco Use Types [...] THE MUSCLE EVERY MONTH 1 mL 3 12/24/2018 04/17/2019 documented in this encounter Plan of Treatment Upcoming Encounters Date Type Department Care Team (Late st Contact Info) Description 08/31/2024 8:30 AM EST Appointment [address] [place] [address] 10/25/2024 10:45 AM EST Office Visit [facility] RHEUMATOLOGY [facility] [address] [place] [facility] [address] [place] [address] Jessica Cortes MD [address] [place] [address] Building 19 [place] [address] 01/25/2025 9:00 AM EDT Appointment [place] [address] [place] [address] 05/09/2025 11:00 AM EDT Appointment [address] [place] [address] 05/09/2025 11:15 AM EDT Appointment [facility] [address] [place] [phone] Susana Garay MD 1 [facility] [place] [address] documented as of this [...] Da te cyanocobalamin 1,000 mcg/mL Inj Solution IONJECT 1ML INTO THE MUSCLE EVERY MONTH Reorder 09/07/2018 12/24/2018 documented as of this encounter Care Teams Account Services Representative Relationship Specialty Start Date End Date Julisa Kerr MD 100 [place] [address] PCP - General 02/22/11 Jessica Cortes MD 651 [facility] Building 19 [place], [place] [address] Internal Medicine-Rheumatology 04/26/16 documented as of this encounter
--- OUTSIDE RECORDS SUMMARY | 2024-08-22 21:51 | XMS_ITS | Encounter Summary ---
Author Organization [place] [address] Care Team Providers Care Chip Washer Name Role Phone Julisa Kerr MD Primary Care Provider [phone] Jessica Cortes MD Unavailable [phone] Encounter Details Date Type Department Care Team (Late st Contact Info) Description 08/10/2018 Orders Only SEP Rheumatology [address] [address] Emerita Carter, [facility] Rheumatoid arthritis involving multiple sites with [...] hearing? Answer Date of Assessment Author No 12/24/2017 1:41 PM EDT Gina Carranza RMA * Is the person blind or does he/she have serious difficulty seeing even when wearing glasses? Answer Date of Assessment Author No 12/24/2017 1:41 PM EDT Gina Carranza RMA * Does this person have serious difficulty walking or climbing stairs? Answer Date of Assessment Author No 12/24/2017 1:41 PM EDT Gina Carranza RMA * Does this person have difficulty dressing or bathing? Answer Date of Assessment Author No 12/24/2017 1:41 PM EDT Gina Carranza RMA * Because of a physical, mental or emotional condition, does this person have difficulty doing errands alone such as visiting a doctor's office or shopping? Answer Date of Assessment Author No 12/24/2017 1:41 PM EDT Gina Carranza RMA documented as of this encounter Mental Status * Because of a physical, mental or emotional condition, does this person have serious difficulty concentrating, remembering or making decisions? Answer Entry Date Author No 12/24/2017 1:41 PM EDT Gina Carranza RMA documented in this encounter Ordered Prescriptions Prescription Sig Dispense Quantity Refills Last Filled Start Date End Date folic acid (FOLVITE) 1 mg Oral TabletIndications:R heumatoid arthritis involving multiple sites with positive rheumatoid factor (HCC) Take 1 Tab by mouth daily. 30 Tab 5 08/10/2018 01/23/2019 documented in this encounter Plan of Treatment Upcoming Encounters Date Type Department Care Team (Late st Contact Info) Description 08/31/2024 8:30 AM EST [address]ointment [address] [place] [address] 10/25/2024 10:45 AM EST Office Visit [facility] R[facility]OLOGY [facility] [address] [facility] [address] [place] [address] Jessica Cortes MD [address] [place] [address] Building 19 [place] [address] 01/25/2025 9:00 AM EDT Appointment [address] [place] [address] 05/09/2025 11:00 AM EDT Appointment [address] [place] [address] 05/09/2025 11:15 AM EDT Appointment [facility] [address] [place], [place] [phone] Susana Garay MD 1 [facility] [address] [place] [id number] documented as of this encounter Goals Goal [...] Take 1 Tab by mouth daily. Reorder 01/05/2018 08/10/2018 documented as of this encounter Care Teams Chip Washer Relationship Specialty Start Date End Date Julisa Kerr MD 100 [place], [place] [address] PCP - General 02/22/11 Jessica Cortes MD [address] [address] Internal Medicine-Rheumatology 04/26/16 documented as of this encounter
--- OUTSIDE RECORDS SUMMARY | 2024-08-22 21:51 | XMS_ITS | Encounter Summary ---
Author Organization [place] [address] Care Team Providers Care Research Agricultural Engineer Name Role Phone Julisa Kerr MD Primary Care Provider [phone] Jessica Cortes MD Unavailable [phone] Reason for Visit * Reason Onset Date Comments Prior Authorization 02/03/2018 Encounter Details Date Type Department Care Team (Late st Contact Info) Description 02/03/2018 Telephone [facility] Rheumatology [facility] [address] [address] Jessica Cortes MD [address] [address] Prior Authorization Social History Tobacco Use Types Packs/Day Years [...] Gina Carranza RMA documented in this encounter Miscellaneous Notes * Telephone Encounter - Emerita Carter CCMA - 02/17/2018 1:53 PM EDT [employer] approved. Approval faxed to [facility] Specialty. Approval good thru 02/17/2019. See media * Telephone Encounter - Marcy Rodriguez - 02/09/2018 10:37 AM EDT [facility] specialty calling, states they would like to be called when PA approved. * Telephone Encounter - Miya Haider MA - 02/03/2018 3:26 PM EDT PA is in process * Telephone Encounter - Marcy Rodriguez - 02/03/2018 3:18 PM EDT Casandra from [facility] Specialty Pharmacy states pt's Sumeet needs a PA from insurance. PA phone #[phone]. documented in this encounter Plan of Treatment Upcoming Encounters Date Type Department Care Team (Late st Contact Info) Description 08/31/2024 8:30 AM EST Appointment [address] [address] 10/25/2024 10:45 AM EST Office Visit [facility] RHEUMATOLOGY [facility] [address] [place] [address] Jessica Cortes MD [address] Building 19 [place] [address] 01/25/2025 9:00 AM EDT Appointment [address] [address] 05/09/2025 11:00 AM EDT Appointment [address] [address] 05/09/2025 11:15 AM EDT Appointment [address] [address] Susana Garay MD [address] [place] [address] documented as of this encounter Goals Goal Patient Goal Type Associated Problems Recent Progress Patient-Stated? 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, RN documented as of this encounter Visit Diagnoses Not on filedocumented in this encounter Care Teams Research Agricultural Engineer Relationship Specialty Start Date End Date Julisa Kerr MD 100 [place], [place] [address] PCP - General 02/22/11 Jessica Cortes MD 1 [facility] Building 19 [place] [address] Internal Medicine-Rheumatology 04/26/16 documented as of this encounter
--- OUTSIDE RECORDS SUMMARY | 2024-08-22 21:51 | XMS_ITS | Encounter Summary ---
Author Organization [place] [address] Care Team Providers Care Bundle Collector Name Role Phone Julisa Kerr MD Primary Care Provider [phone] Jessica Cortes MD Unavailable [phone] Reason for Visit * Reason Comments Medication Refill Encounter Details Date Type Department Care Team (Late st Contact Info) Description 07/15/2018 Refill [facility] [address] [place] [address] Julisa Kerr MD 100 [place] [address] Medication Refill Social History Tobacco Use Types [...] EVERY DAY AT NIGHT 30 Tab 2 07/15/2018 10/04/2018 documented in this encounter Plan of Treatment Upcoming Encounters Date Type Department Care Team (Late st Contact Info) Description 08/31/2024 8:30 AM EST Appointment [address] [place] [address] 10/25/2024 10:45 AM EST Office Visit [facility] [address] [place] [address] Jessica Cortes MD [address] [facility] Building [address] [place] [address] 01/25/2025 9:00 AM EDT [address]ment [address] [place] [address] 05/09/2025 11:00 AM EDT Appointment [address] [place] [address] 05/09/2025 11:15 AM EDT Appointment [facility] [address] [place] [address] Susana Garay MD [address] [place] [address] [place] [address] documented as of this encounter Goals [...] Oral TabletIndications:Insomni a, unspecified type TAKE 1 TAB BY MOUTH NIGHTLY. Reorder 03/27/2018 07/15/2018 documented as of this encounter Care Teams Bundle Collector Relationship Specialty Start Date End Date Julisa Kerr MD 100 [place], [place] [id number] PCP - General 02/22/11 Jessica Cortes MD [address] [address] Internal Medicine-Rheumatology 04/26/16 documented as of this encounter
--- OUTSIDE RECORDS SUMMARY | 2024-08-22 21:51 | XMS_ITS | Encounter Summary ---
Author [place] [address] Care Team Providers Care Line Staker Name Role Phone Julisa Kerr MD Primary Care Provider Jessica Cortes MD Unavailable [phone] Reason for Visit * Reason Onset Date Comments Medication Refill 01/05/2018 Encounter Details Date Type Department Care Team (Late st Contact Info) Description 01/05/2018 Refill [facility] [address] [place] [phone] Julisa Kerr MD 100 [place] [address] Medication Refill Social History Tobacco Use Types [...] Date Author No 12/24/2017 1:41 PM EDT iGna Carranza RMA documented in this encounter Ordered Prescriptions Prescription Sig Dispense Quantity Refills Last Filled Start Date End Date amitriptyline (ELAVIL) 25 mg Oral TabletIndications:I nsomnia, unspecified type Take 1 Tab by mouth nightly. 30 Tab 2 01/05/2018 03/27/2018 documented in this encounter Miscellaneous Notes * Telephone Encounter - Alpa Lance - 01/05/2018 11:58 AM EDT Refill on Elavil documented in this encounter Plan of Treatment Upcoming Encounters Date Type Department Care Team (Late st Contact Info) Description 08/31/2024 8:30 AM EST Appointment [facility] [address] [place] [address] 10/25/2024 10:45 AM EST Office Visit [facility] [address] [place] [phone] Jessica Cortes MD [address] [facility] Building 19 [place] [address] 01/25/2025 9:00 AM EDT Appointment [address] [place] [address] 05/09/2025 11:00 AM EDT Appointment [address] [place] [address] 05/09/2025 11:15 AM EDT Appointment [address] [place] [address] Susana Garay MD [address] [place] [address] [address] [place], [place] [id number] documented as of this encounter Goals Goal [...] type Take 1 Tab by mouth nightly. Reorder 06/26/2016 01/05/2018 documented as of this encounter Care Teams Line Staker Relationship Specialty Start Date End Date Julisa Kerr MD 100 [place] [address] PCP - General 02/22/11 Jessica Cortes MD [address] [address] Internal Medicine-Rheumatology 04/26/16 documented as of this encounter
--- OUTSIDE RECORDS SUMMARY | 2024-08-22 21:51 | XMS_ITS | Encounter Summary ---
Author Organization [place] [address] Care Team Providers Care Forensic Engineer Name Role Phone Julisa Kerr MD Primary Care Provider [phone] Jessica Cortes MD Unavailable [phone] Reason for Visit * Reason Onset Date Comments Prior Authorization 02/17/2018 Encounter Details Date Type Department Care Team (Late st Contact Info) Description 02/17/2018 Telephone [facility] Rheumatology [facility] [address] [address] Jessica Cortes MD [address] [address] Prior Authorization Social History Tobacco [...] Refills Last Filled Start Date End Date abatacept (ORENCIA) 125 mg/mL SubQ SyringeIndication s:Rheumatoid arthritis involving multiple sites with positive rheumatoid factor (HCC) Subcutaneous (Inject under the skin) 125 mg once a week. 4 Syringe 5 04/17/2018 9 documented in this encounter Miscellaneous Notes * Telephone Encounter - Jose Schilling MA - 04/17/2018 8:25 AM EDT orencia sent to [facility] * Addendum Note - Jose Schilling MA - 04/17/2018 8:24 AM EDTAddended by: JOSE SCHILLING on: 04/17/2018 08:24 AM Modules accepted: Orders * Addendum Note - Mel Michaels RMA - 04/13/2018 1:24 PM EDTAddended by: MEL MICHAELS on: 04/13/2018 01:24 PM Modules accepted: Orders * Telephone Encounter - Mel Michaels RMA - 04/13/2018 1:20 PM EDT Left message to call the office back. Need to know what pharmacy she needs the Orencia injection sent into. * Telephone Encounter - Rivka Capellan - 04/13/2018 1:00 PM EDT Pt states that she has still not heard anything about her PA on her Orencia , pt states she has no medication , pt also states that now her insurance is [employer] ID # [id number] Bin # [id number] group # [id number]. Call pt to advise , thanks * Telephone Encounter - Emerita Carter CCMA - 02/17/2018 10:46 AM EDT Tb result faxed. * Telephone Encounter - Marcy Rodriguez - 02/17/2018 10:17 AM EDT Marie Knutson states they received PA form for pt's Orencia, but they needs a negative TB test faxed to them at [phone]. She states include pt's name, , and should say TB test included. Please, patient is in [employer]. She states this needs to be sent pamella. documented in this encounter Plan of Treatment Upcoming Encounters Date Type Department Care Team (Late st Contact Info) Description 08/31/2024 8:30 AM EST Appointment [facility] Cancer [address] [place] [address] 10/25/2024 10:45 AM EST Office Visit [facility] [address] [place] [phone] Jessica Cortes MD [address] [facility] Building 19 [place] [address] 01/25/2025 9:00 AM EDT Appointment [place] [address] [place] [address] 05/09/2025 11:00 AM EDT [address]ointment [address] [place] [address] 05/09/2025 11:15 AM EDT Appointment [address] [place] [address] Susana Garay MD [address] [place], [place] [id number] documented as of this encounter Goals Goal [...] Discontinue Reason Start Date End Da te abatacept (ORENCIA) 125 mg/mL SubQ SyringeIndications:Rh eumatoid arthritis involving multiple sites with positive rheumatoid factor (HCC) Subcutaneous (Inject under the skin) 125 mg once a week. Reorder 01/05/2018 04/13/2018 documented as of this encounter Care Teams Forensic Engineer Relationship Specialty Start Date End Date Julisa Kerr MD 100 [place] [address] PCP - General 02/22/11 Jessica Cortes MD 651 [facility] 19 [place] [address] Internal Medicine-Rheumatology 04/26/16 documented as of this encounter
--- OUTSIDE RECORDS SUMMARY | 2024-08-22 21:51 | XMS_ITS | Encounter Summary ---
Author Organization [place] [address] Care Team Providers Care Dry Charge Process Attendant Name Role Phone Julisa Kerr MD Primary Care Provider [phone] Jessica Cortes MD Unavailable [phone] Reason for Visit * Reason Comments Follow-up Rheumatoid Arthritis HCC Osteopenia Neck Pain * Consultation (Routine) - Closed Specialty Diagnoses / Procedures Referred By Contciarra t Referred To Contact Internal Medicine-Rheumatology / Rheumatology Diagnoses f/u 3 mo arth Procedures FOLLOW UP Julisa Kerr MD Phone: tel: fax: Jessica Cortes MD [address] [address] Phone: tel: fax: Referral ID Status Reason Start Date Expiration Date Visits Re quested Visits Authorized [id number] Closed 01/05/2018 01/05/2019 99 99 Encounter Details Date Type Department Care Team (Latest Contact Info) Description 05/08/2018 10:00 AM EDT Office Visit [facility] [address] [address] Jessiac Cortes MD [address] [place] [phone] Rheumatoid arthritis involving multiple sites with positive rheumatoid factor (HCC) (Primary Dx); Raynaud's phenomenon without gangrene; Positive BRET (antinuclear antibody); Neck pain; Osteopenia of multiple sites; Right hip pain; Immunocompromised patient (HCC); Therapeutic drug monitoring Social [...] Sign Reading Time Taken Comments Blood Pressure 118/72 05/08/2018 10:24 AM EDT Pulse 75 05/08/2018 10:24 AM EDT Temperature - - Respiratory Rate - - Oxygen Saturation - - Inhaled Oxygen Concentration - - Weight - - Height - - Body Mass Index - - documented in this encounter Functional Status * [...] Gina Carranza RMA documented in this encounter Progress Notes * Jessica Cortes MD - 05/08/2018 10:00 AM EDT Subjective Subjective: Patient ID: Yuliet Newsome is a 47 y.o. female. Chief Complaint Patient presents with ??? Follow-up ??? Rheumatoid Arthritis HCC ??? Osteopenia ??? Neck Pain HPI The patient comes in for follow up regarding RA. Symptoms started in 2002. Seen by Vessel Specialist, Dr. Astorga. She was seen in [facility] but have not seen her [...] mild pain- 3/10, mild swelling. Has been doing OK. Just started Orencia a week ago. 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 Recent flares: not much Joint pain: hands, especially left 1st MCP. Right hip has been bothering her a lot, usually with walking, it clicks at times. Can not lay on it. Stairs and a lot of standing makes it worse. Joint swelling: knuckles Pain on a scale 0-10: 6/10 Type of pain: ache Morning stiffness: 30 minutes. Raynaud's: worsened in the cold weather. Current therapy: MTX 20 mg q week ( for the last 13 years), Orencia 125 mg SQ weekly- started last week end of 01/2018, prednisone taper as needed Previous therapy: Tylenol, Codeine, Darvocet, Motrin, Naproxen, Celebrex, Lodine did not help, MTX helped some, Enbrel 50 mg sq q week (since 2012- till 01/2018) Started grooming business. Patients past medical, family and social histories were reviewed and updated. There were no changesexcept as noted. Review of Systems Constitutional: Positive for fatigue. Weight gain HENT: Positive for congestion. Dry mouth Gastrointestinal: GERD Genitourinary: Positive for difficulty urinating. Musculoskeletal: Positive for arthralgias, back pain, joint swelling, myalgias and neck pain. Neurological: Positive for headaches. Hematological: Bruises/bleeds easily. Psychiatric/Behavioral: Positive for sleep disturbance. The patient is nervous/anxious. Depression All other systems reviewed and are negative. Objective Objective: Vitals: 05/08/18 1024 BP: 118/72 Pulse: 75 There is no height or weight on file to calculate BMI. Physical Exam Constitutional: She is oriented to person, place, and time. She appears well- developed and well-nourished. HENT: Head: Normocephalic and atraumatic. Eyes: Conjunctivae are normal. Pupils are equal, round, and reactive to light. Neck: Normal range of motion. Musculoskeletal: Tenderness to the trapezius muscles. Crepitus in the right shoulder. Tenderness to the 2nd, 3rd right MCP, 1st- 3rd left MCP, 2nd, 3rd left PIP. Synovitis in the left wrist, minimal in the 2nd, 3rd, 4th right MCP, moderate in the 1st left MCP , 3rd left PIP. ROM of the knees, ankles intact, no effusion. ROM of the left wrist decreased. NO tenderness to the trochanteric bursa or spinal processes. ROM of the right hip painful. Neurological: She is alert and oriented to person, place, and time. Muscle strength 5/5 upper and lower extremities. Skin: Skin is warm. No rash noted. Psychiatric: She has a normal mood and affect. Vitals reviewed. Rapid 3: 18.8 Lab Results Component Value Date WBC 6.5 01/05/2018 HGB 14.6 01/05/2018 HCT 44.4 01/05/2018 MCV 89.7 01/05/2018 PLT 311 01/05/2018 Chemistry Component Value Date/Time NA 142 01/05/2018 1224 NA 140 07/01/2017 1532 K 4.2 01/05/2018 1224 K 3.9 07/01/2017 1532 CL 102 01/05/2018 1224 CL 102 07/01/2017 1532 CO2 27 01/05/2018 1224 CO2 22 07/01/2017 1532 BUN 8 01/05/2018 1224 BUN 11 07/01/2017 1532 CREATININE 0.81 01/05/2018 1224 CREATININE 0.78 07/01/2017 1532 GLU 88 01/05/2018 1224 GLU 103 (H) 07/01/2017 1532 Component Value Date/Time CALCIUM 9.4 01/05/2018 1224 CALCIUM 9.3 07/01/2017 1532 ALKPHOS 90 01/05/2018 1224 ALKPHOS 98 07/01/2017 1532 AST 16 01/05/2018 1224 AST 16 07/01/2017 1532 ALT 14 01/05/2018 1224 ALT 16 07/01/2017 1532 Lab Results Component Value Date CRP 1.96 01/05/2018 Lab Results Component Value Date SEDRATE 18 01/05/2018 Assessment and Plan: Yuliet was seen today for follow-up, rheumatoid arthritis, osteopenia and neck pain. Diagnoses and all orders for this visit: Rheumatoid arthritis involving multiple sites, with positive rheumatoid factor (HCC) Dx in [address] Astorga in [facility] Records from [facility] received and reviewed. The patient was seen in 05/11/13 for initial evaluation. Presented with polyarticular joint involvement- large and small joints- shoulders, elbows, knees, wrists, knuckles, toes. Per records she had low titer (+) RF, negative CCP, (+) BRET centromere pattern > 8.0 with negative SSA/SSB, BOTTLE LABELER, Scl 70, dsDNA Records indicate she used to see Dr. Armstrong but was lost to f/u due to loss of insurance Records also indicate she failed Humira ( side effects- rash) and Remicade ( did not respond to treatment). On MTX and Enbrel since 04/2013. X rays of both feet 05/18/2013 [...] restarted 11/2016, increased to 20 mg weekly sq. Enbrel 50 mg sq q week ( since 2012), run out 09/2016, restarted 03/10/17 after PPD done and negative. RA active while on Enbrel, periodic flares of the swelling of the joints, synovitis in the few MCP joints, wrists. Enbrel changed to Orencia 125 mg SQ weekly Started 04/2018, a week ago, too early to assess efficacy. Still synovitis in the left wrist, minimal in the 2nd, 3rd, 4th right MCP, moderate in the 1st leftMCP , 3rd left PIP. Raynaud's phenomenon without gangrene Positive BRET (antinuclear antibody) 1:640, centromere pattern No history of digital ulcerations No other symptoms to suggest CTD Neck pain Patients with active RA are at risk for atlantoaxial disease and translocation of the dens x rays revealed mild degenerative changes, no evidence of atlanto axial disease Mainly myofascial pain at this point Regular stretches, heat, ice, massage Osteopenia of multiple sites Surgical menopause in 2000 Hx of RA, frequent prednisone use Bone density ( 05/03/16) T score -2.2 at the right femoral neck FRAX score - risk for fracture is low. Vitamin D daily Weight bearing exercises regularly At this point no other treatment needed Right hip pain ROM painful NO tenderness to the lumbar spine or trochanteric bursa Rosetta[ect hip pathology- RA vs OA Will get x rays If RA would expect to improve with better arthritis control - XR HIP RIGHT AP LATERAL W AP PELVIS; Future Immunocompromised patient (HCC) Due to immunosuppression with MTX, Enbrel Prevnar 13 given 12/13/16 Pneumovax 23 given 03/17/17 Therapeutic drug monitoring PPD negative 03/10/17, she is due for TB test. She will have it done at PCP office. Labs today and every 6-8 weeks while on MTX Return in about 3 months (around 08/08/2018). documented in this encounter Plan of Treatment Upcoming Encounters Date Type Department Care Team (Late st Contact Info) Description 08/31/2024 8:30 AM EST Appointment [place] [address] [place] [address] 10/25/2024 10:45 AM EST Office Visit [facility] [address] [place] [address] Jessica Cortes MD [address] [place] [address] 01/25/2025 9:00 AM EDT Appointment [place] [address] [place] [address] 05/09/2025 11:00 AM EDT [address]ment [address] [place] [address] 05/09/2025 11:15 AM EDT [address]ointment [address] [place] [address] Susana Garay MD [address] [place] [address] [place] [address] documented as of this encounter Goals Goal Patient Goal Type Associated Problems Recent Progress Patient-Stated? Author Maintain a healthy diet, exercise regularly and maintain an ideal body weight General Porsche Ashley, RN documented as of this encounter Results * XR HIP RIGHT AP LATERAL W AP PELVIS (05/08/2018 1:06 PM EDT) Anatomical Region Laterality Modality Hip Radiographic Fallon ging 05/08/2018 1:06 PM EDT Impressions 05/08/2018 1:30 PM EDT There is no acute radiographic abnormality. There is mild symmetric joint space narrowing of both hips. Narrative 05/08/2018 1:30 PM EDT XR HIP RIGHT AP LATERAL W AP PELVIS, ??05/08/2018 1:06 PM CLINICAL HISTORY: ??M25.551-Pain in right [id number] COMPARISON: ??None. PROCEDURE COMMENTS: ??AP view of the pelvis with AP and frog-leg views of the hip. FINDINGS: There is normal alignment of the right hip. There is mild symmetric narrowing of both hip joints. There is no acute fracture. There are no osseous erosions. The pelvic ring is intact. Procedure Note Alba James MD - 05/08/2018 XR HIP RIGHT AP LATERAL W AP PELVIS, 05/08/2018 1:06 PM CLINICAL HISTORY: M25.551-Pain in right [id number] COMPARISON: None. PROCEDURE COMMENTS: AP view of the pelvis with AP and frog-leg views ofthe hip. FINDINGS: There is normal alignment of the right hip. There is mild symmetricnarrowing of both hip joints. There is no acute fracture. There are no osseouserosions. The pelvic ring is intact. IMPRESSION: There is no acute radiographic abnormality. There is mild symmetric jointspace narrowing of both hips. Jessica Cortes MD [facility] OR DERABLES Final Result documented in this encounter Visit Diagnoses Diagnosis 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 Raynaud's phenomenon without gangrene Positive BRET (antinuclear antibody) Other and unspecified nonspecific immunological findings Neck pain Cervicalgia Osteopenia of multiple sites Right hip pain Pain in joint, pelvic region and thigh Immunocompromised patient (HCC) Unspecified immunity deficiency Therapeutic drug monitoring Encounter for therapeutic drug monitoring Right hip pain Pain in joint, pelvic region and thigh documented in this encounter Care Teams Dry Charge Process Attendant Relationship Specialty Start Date End Date Julisa Kerr MD 100 [place] [address] PCP - General 02/22/11 Jessica Cortes MD 651 [facility] Building [address] [place] [address] Internal Medicine-Rheumatology 04/26/16 documented as of this encounter
--- OUTSIDE RECORDS SUMMARY | 2024-08-22 21:51 | XMS_ITS | Encounter Summary ---
Author Organization [place] [address] Care Team Providers Care Safety Risk Lead Name Role Phone Julisa Kerr MD Primary Care Provider [phone] Jessica Cortes MD Unavailable [phone] Reason for Visit * Reason Comments Follow-up 3 mo Rheumatoid Arthritis Osteopenia Raynaud's Syndrome * Consultation (Routine) - Closed Specialty Diagnoses / Procedures Referred By Contac t Referred To Contact Internal Medicine-Rheumatology / Rheumatology Diagnoses f/u 3 mo arth Procedures FOLLOW UP Julisa Kerr MD Phone: tel: fax: Jessica Cortes MD [address] [place] [address] Phone: tel: fax: Referral ID Status Reason Start Date Expiration Date Visits Re quested Visits Authorized [id number] Closed 01/05/2018 01/05/2019 99 99 Encounter Details Date Type Department Care Team (Latest Contact Info) Description 08/10/2018 2:45 PM EST Office Visit SE[facility] Rheumatology [facility] [address] [address] Jessica Cortes MD [address] [place] [address] (work) Rheumatoid arthritis involving multiple sites with positive rheumatoid factor (HCC) (Primary Dx); Positive BRET (antinuclear antibody); Raynaud's phenomenon without gangrene; Neck pain; Osteopenia of multiple sites; Right hip pain; Trochanteric bursitis of right hip; Immunocompromised patient (HCC); Therapeutic drug monitoring; Sicca syndrome (HCC) Social History Tobacco Use Types [...] Sign Reading Time Taken Comments Blood Pressure 116/80 08/10/2018 3:11 PM EST Pulse 93 08/10/2018 3:11 PM EST Temperature - - Respiratory Rate 16 08/10/2018 3:11 PM EST Oxygen Saturation - - Inhaled Oxygen Concentration - - Weight 63.3 kg (139 lb 9.6 oz) 08/10/2018 3:11 P M EST Height 157.5 cm (5' 2 ) 08/10/2018 3:11 PM EST Body Mass Index 25.53 08/10/2018 3:11 PM EST documented in this encounter Functional [...] Date Author No 12/24/2017 1:41 PM EDT Dillon GinaJARROD Morgan documented in this encounter Ordered Prescriptions Prescription Sig Dispense Quantity Refills Last Filled Start Date End Date methotrexate 25 mg/mL Inj SolutionIndicatio ns:Rheumatoid arthritis involving multiple sites with positive rheumatoid factor (HCC) Subcutaneous (Inject under the skin) 0.8 mL every 7 days. 4 mL 1 08/10/2018 9 documented in this encounter Progress Notes * Jsesica Cortes MD - 08/10/2018 2:45 PM EST Subjective Subjective: Patient ID: Yuliet Newsome is a 47 y.o. female. Chief Complaint Patient presents with ??? Follow-up 3 mo ??? Rheumatoid Arthritis ??? Osteopenia ??? Raynaud's Syndrome HPI The patient comes in for follow up regarding RA. Symptoms started in 2002. Seen by Pulp Cooker, Dr. Astorga. She was seen in [place] [facility] but have not seen her in 6 [...] has mild pain- 3/10, mild swelling. Feels OK. Has been experiencing severe dryness- eyes, mouth, skin, throat. Attributed it to Elavil so stopped it but nothing has change. Recent flares: one or two Joint pain: hands, especially left 1st MCP. Right hip still painful, can not lay on it, sleep on it, it hurts. Pain with use. Joint swelling: knuckles Pain on a scale 0-10: 7/10 Type of pain: ache Morning stiffness: 20-30 minutes. Raynaud's: worsened in the cold weather. Current therapy: MTX 20 mg q week ( for the last 13 years), Orencia 125 mg SQ weekly- started last week end of 04/2018, prednisone taper as needed Previous therapy: Tylenol, Codeine, Darvocet, Motrin, Naproxen, Celebrex, Lodine did not help, MTX helped some, Enbrel 50 mg sq q week (since 2012- till 01/2018) Patients past medical, family and social histories were reviewed and updated. There were no changesexcept as noted. 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 Review of Systems Constitutional: Positive for fatigue. Weight gain HENT: Positive for congestion. Dry mouth Gastrointestinal: GERD Genitourinary: Positive for difficulty urinating. Musculoskeletal: Positive for arthralgias, back pain, joint swelling, myalgias and neck pain. Neurological: Positive for headaches. Hematological: Bruises/bleeds easily. Psychiatric/Behavioral: Positive for sleep disturbance. The patient is nervous/anxious. Depression All other systems reviewed and are negative. Objective Objective: Vitals: 08/10/18 1511 BP: 116/80 Pulse: 93 Resp: 16 Weight: 139 lb 9.6 oz (63.3 kg) Height: 5' 2 (1.575 m) Body mass index is 25.53 kg/m??. Physical Exam Constitutional: She is oriented to person, place, and time. She appears well- developed and well-nourished. HENT: Head: Normocephalic and atraumatic. Eyes: Pupils are equal, round, and reactive to light. Conjunctivae are normal. Neck: Normal range of motion. Musculoskeletal: Tenderness to the trapezius muscles. Crepitus in the right shoulder. Tenderness to the 2nd, 3rd right MCP, 1st- 3rd left MCP, MTP joints. Synovitis in the wrists, minimal in the 2nd, 3rd right MCP, moderate in the 1st left MCP. ROM of the knees, ankles intact, no effusion. ROM of the left wrist decreased. Tenderness to the trochanteric bursa on right. No pain on the ROM of the right hip. Neurological: She is alert and oriented to person, place, and time. Muscle strength 5/5 upper and lower extremities. Skin: Skin is warm. No rash noted. Psychiatric: She has a normal mood and affect. Vitals reviewed. Rapid 3: 19.5 Lab Results Component Value Date WBC 6.3 05/08/2018 HGB 14.7 05/08/2018 HCT 45.6 (H) 05/08/2018 MCV 89.9 05/08/2018 PLT 277 05/08/2018 Chemistry Component Value Date/Time NA 144 05/08/2018 1103 NA 140 07/01/2017 1532 K 4.3 05/08/2018 1103 K 3.9 07/01/2017 1532 CL 105 05/08/2018 1103 CL 102 07/01/2017 1532 CO2 26 05/08/2018 1103 CO2 22 07/01/2017 1532 BUN 10 05/08/2018 1103 BUN 11 07/01/2017 1532 CREATININE 0.85 05/08/2018 1103 CREATININE 0.78 07/01/2017 1532 GLU 84 05/08/2018 1103 GLU 103 (H) 07/01/2017 1532 Component Value Date/Time CALCIUM 9.5 05/08/2018 1103 CALCIUM 9.3 07/01/2017 1532 ALKPHOS 98 05/08/2018 1103 ALKPHOS 98 07/01/2017 1532 AST 16 05/08/2018 1103 AST 16 07/01/2017 1532 ALT 13 05/08/2018 1103 ALT 16 07/01/2017 1532 Lab Results Component Value Date CRP 1.40 05/08/2018 Lab Results Component Value Date SEDRATE 5 05/08/2018 Assessment and Plan: Yuliet was seen today for follow-up, rheumatoid arthritis, osteopenia and raynaud's syndrome. Diagnoses and all orders for this visit: Rheumatoid arthritis involving multiple sites, with positive rheumatoid factor (HCC) Dx in [address] Astorga in [facility]. Records from [facility] received and reviewed. The patient was seen in 05/11/13 for initial evaluation. Presented with polyarticular joint involvement- large and small joints- shoulders, elbows, knees, wrists, knuckles, toes. Per records she had low titer (+) RF, negative CCP, (+) BRET centromere pattern > 8.0 with negative SSA/SSB, TRUCK STRIKER, Scl 70, dsDNA Records indicate she used [...] to 20 mg weekly sq in 04/2018, will increase to 25 mg sq today. . Enbrel 50 mg sq q week ( since 2012), run out 09/2016, restarted 03/10/17 after PPD done and negative. RA active while on Enbrel, periodic flares of the swelling of the joints, synovitis in the few MCP joints, wrists. Enbrel changed to Orencia 125 mg SQ weekly 04/2018. Continue Orencia 125 mg q week Still synovitis in the wrists, minimal in the 2nd, 3rd right MCP, moderate in the 1st left MCP. - methotrexate 25 mg/mL Inj Solution; Subcutaneous (Inject under the skin) 0.8 mL every 7 days. - COMPREHENSIVE METABOLIC PANEL; Future - CBC WITH DIFF; Future - C-REACTIVE PROTEIN; Future - SEDIMENTATION RATE AUTOMATED; Future Raynaud's phenomenon without gangrene Positive BRET [...] Vitamin D daily Weight bearing exercises regularly Recheck DXA Right hip pain Trochanteric bursitis of right hip ROM painful in the past, not today No tenderness to the lumbar spine Tenderness to the right trochanteric bursa x rays of the hip reveals mild symmetrical joint space narrowing in both hips Trochanteric bursa exercises discussed, info given. Topical OTC creams May inject with cortisol next visit. Immunocompromised patient (HCC) Due to immunosuppression with MTX, Enbrel Prevnar 13 given 12/13/16 Pneumovax 23 given 03/17/17 Therapeutic drug monitoring PPD negative 03/10/17, she is due for TB test. She will have it done at PCP office. Labs today and every 6-8 weeks while on MTX Sicca syndrome (HCC) Suspect secondary Sjogren's due to RA Advised on behavioral modifications- sugar free gum and candy, frequent fluid intake, eye drops Advised on regular ophthalmology and dental appointments - SSA (RO) IGG; Future - SSB (LA) IGG; Future No Follow-up on file. documented in this encounter Miscellaneous Notes * Patient Instructions - Jessica Cortes MD - 08/10/2018 3:41 PM EST Images from the original [...] after they get tired. Exercise B: Bridge ( hip extensors) 1. Lie on your back on [...] exercise times a day. Exercise C: Squats ( knee extensors and quadriceps) 1. barrel tester and drainer front of a table, with your feet and knees pointing straight ahead. You may rest your hands on the table for balance but not for support. 2. Slowly bend your knees and lower your hips like you are going to sit in a chair. ?? Keep your weight over your heels, not over your toes. ?? Keep your lower legs upright so they are parallel with the table legs. ?? Do not let your hips go lower than your knees. ?? Do not bend lower than told by your health care provider. ?? If your hip pain increases, do not [...] balance as needed. It is helpful to pulp grinder feeder front of a mirror for this exercise [...] 10/23/2005 Document Revised: 05/22/2017 Document Reviewed: 08/30/2016 [employer] Interactive Patient Education ?? 2018 [employer] documented in this encounter Plan of Treatment Upcoming Encounters Date Type Department Care Team (Late st Contact Info) Description 08/31/2024 8:30 AM EST [address]ointment [address] [place] [address] 10/25/2024 10:45 AM EST Office Visit [facility] [address] [place] [phone] Jessica Cortes MD [address] [place] [address] 01/25/2025 9:00 AM EDT Appointment [place] [address] [place] [address] 05/09/2025 11:00 AM EDT Appointment [place] [address] [place] [address] 05/09/2025 11:15 AM EDT [address]ointment [address] [place] [address] Susana Garay MD [address] [place] [address] [place] [address] documented as of this encounter Goals Goal Patient Goal Type Associated Problems Recent Progress Patient-Stated? 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 RN documented as of this encounter Procedures Procedure Name Priority Date/Time Associated Diagnosis Comments SSB (LA) IGG Routine 08/10/2018 3:59 PM EST Sicca syndrome (HCC) SSA (RO) IGG Routine 08/10/2018 3:59 PM EST Sicca syndrome (HCC) SEDIMENTATION RATE AUTOMATED Routine 08/10/2018 3:59 PM EST Rheumatoid arthritis involving multiple sites with positive rheumatoid factor (HCC) CBC WITH DIFF Routine 08/10/2018 3:59 PM EST Rheumatoid arthritis involving multiple sites with positive rheumatoid factor (HCC) C-REACTIVE PROTEIN Routine 08/10/2018 3: 59 PM EST Rheumatoid arthritis involving multiple sites with positive rheumatoid factor (HCC) COMPREHENSIVE METABOLIC PANEL Routine 08/10/2018 3:59 PM EST Rheumatoid arthritis involving multiple sites with positive rheumatoid factor (HCC) documented in this encounter Results * SSB (LA) IGG (08/10/2018 3:59 PM EST) [facility] SSB ([place]) IgG Negative Negative, Equivocal 08/13/2018 7:36 PM EST [facility] Blood Venipuncture / Unknown 08/10/2018 3:59 PM EST 08/10/2018 7:20 PM EST Jessica Cortes MD IMMUNOLOGY ORDERABLES Fin al Result [facility] [place] [address] , [place] [address] * SSA (RO) IGG (08/10/2018 3:59 PM EST) [facility] SSA (Ro) IgG Negative Negative, Equivocal 08/13/2018 7:29 PM EST [employer] [facility] Blood Venipuncture / Unknown 08/10/2018 3:59 PM EST 08/10/2018 7:20 PM EST Jessica Cortes MD IMMUNOLOGY ORDERABLES Fin al Result Performing Organization Address City/[facility]/ZIP Co de Phone Number [facility] [facility] [address] , [address] [place] [id number] * SEDIMENTATION RATE AUTOMATED (08/10/2018 3:59 PM EST) [facility] Sed Rate 7 0 - 20 mm/hr 08/10/2018 9:32 PM EST [facility] Blood Venipuncture / Unknown 08/10/2018 3:59 PM EST 08/10/2018 7:21 PM EST us Jessica Cortes MD HEMATOLOGY ORDERABLES Fin al Result Performing Organization Address City/[facility]/ZIP Co de Phone Number [facility], [facility] [address] [facility] , [place] [address] * C-REACTIVE PROTEIN (08/10/2018 3:59 PM EST) CRP 1.32 <=5.00 mg/L 08/10/2018 10:23 PM EST [facility] Blood Venipuncture / Unknown 08/10/2018 3:59 PM EST 08/10/2018 7:21 PM EST Jessica Cortes MD CHEMISTRY ORDERABLES Siobhan l Result Performing Organization Address City/[facility]/ZIP Co de Phone Number [facility], [facility] [address] [facility] , [place] [address] * CBC WITH DIFF (08/10/2018 3:59 PM EST) WBC 8.5 3.7 - 10.3 x10(3)/mcL 08/10/2018 9:08 PM EST [facility] RBC 5.00 3.90 - 5.20 x10(6)/mcL 08/10/2018 9:08 PM EST [facility] Hgb 14.5 11.2 - 15.7 g/dL 08/10/2018 9:08 PM EST [facility] Hct 44.7 34.0 - 45.0 % 08/10/2018 9:08 PM EST [facility] MCV 89.4 79.0 - 98.0 fL 08/10/2018 9:08 PM EST [facility] MCH 29.0 26.0 - 32.0 pg 08/10/2018 9:08 PM EST [facility] MCHC 32.4 30.7 - 35.5 g/dL 08/10/2018 9:08 PM EST [facility] RDW 12.5 <=14.9 % 08/10/2018 9:08 PM EST [facility] Platelet 300 155 - 369 x10(3)/[facility] 08/10/2018 9:08 PM EST [facility] MPV 11.4 8.8 - 12.5 fL 08/10/2018 9:08 PM EST [facility] Neut Percent 52.8 % 08/10/2018 9:08 PM EST [facility] Comment:Neutrophils equals s egs plus bands Imm Gran% 0.4 % 08/10/2018 9:08 PM EST [facility] Comment:Automated count of m etamyelocytes, myelocytes and promyelocytes. Lymph Percent 33.3 % 08/10/2018 9:08 PM EST [facility] Ch[place]ot Percent 9.4 % 08/10/2018 9:08 PM EST [facility] Eos Percent 3.4 % 08/10/2018 9:08 PM EST [facility] Baso Percent 0.7 % 08/10/2018 9:08 PM EST [facility] Neut # 4.5 1.6 - 6.1 x10(3)/[facility] 08/10/2018 9:08 PM EST [facility] Comment:Neutrophils equals s egs plus bands IMMGRAN# 0.0 0.0 - 0.1 x10(3)/[facility] 08/10/2018 9:08 PM EST [facility] Comment:Automated count of m etamyelocytes, myelocytes and promyelocytes. An absolute IG <0.1 is reported as 0.0. Lymph # 2.8 1.2 - 3.9 x10(3)/[facility] 08/10/2018 9:08 PM EST [facility] Ch[place]ot # 0.8 0.3 - 0.9 x10(3)/[facility] 08/10/2018 9:08 PM EST [facility] Eos# 0.3 0.0 - 0.5 x10(3)/[facility] 08/10/2018 9:08 PM EST [facility] Baso # 0.1 0.0 - 0.1 x10(3)/[facility] 08/10/2018 9:08 PM EST [facility] Blood Venipuncture / Unknown 08/10/2018 3:59 PM EST 08/10/2018 7:21 PM EST us Jessica Cortes MD HEMATOLOGY ORDERABLES Fin al Result [facility] [address] [facility] , [place] [address] * (ABNORMAL) COMPREHENSIVE METABOLIC PANEL (08/10/2018 3:59 PM EST) Sodium 140 136 - 145 mmol/L 08/10/2018 10:23 PM EST [facility] Potassium 4.8 3.5 - 5.0 mmol/L 08/10/2018 10:23 PM EST [facility] Chloride 101 98 - 107 mmol/L 08/10/2018 10:23 PM EST [facility] Total CO2 29 22 - 29 mmol/L 08/10/2018 10:23 PM EST [facility] Anion Gap 10 7 - 16 mmol/L 08/10/2018 10:23 PM EST [facility] Calcium 9.5 8.6 - 10.2 mg/dL 08/10/2018 10:23 PM EST [facility] Glucose Lvl 89 74 - 100 mg/dL 08/10/2018 10:23 PM EST [facility] BUN 10 6 - 20 mg/dL 08/10/2018 10:23 PM EST [facility] Creatinine 0.83 0.51 - 1.30 mg/dL 08/10/2018 10:23 PM EST [facility] Albumin 4.6 3.5 - 5.2 gm/dL 08/10/2018 10:23 PM EST [facility] Total Protein 7.5 6.4 - 8.3 gm/dL 08/10/2018 10:23 PM EST [facility] Bili Total 0.2 0.1 - 1.3 mg/dL 08/10/2018 10:23 PM EST [facility] ALT 7 <=41 IU/L 08/10/2018 10:23 PM EST [facility] AST 16 <=40 IU/L 08/10/2018 10:23 PM EST [facility] Alk Phos 108(H) 35 - 104 IU/L 08/10/2018 10:23 PM EST [facility] GFR Afr Am 97 >=60 mL/min/1.7 3 m2 08/10/2018 10:23 PM EST [facility] GFR Non Afr Am 84 >=60 mL/min/1.7 3 m2 08/10/2018 10:23 PM EST [facility] Comment: This estimated GFR was calculated using [...] or muscle mass. Blood Venipuncture / Unknown 08/10/2018 3:59 PM EST 08/10/2018 7:21 PM EST us Jessica Cortes MD CHEMISTRY ORDERABLES Siobhan l Result [facility] [address] [facility] , [place] [address] documented in this encounter Visit Diagnoses Diagnosis 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 Positive BRET (antinuclear antibody) Other and unspecified nonspecific immunological findings Raynaud's phenomenon without gangrene Neck pain Cervicalgia Osteopenia of multiple sites Right hip pain Pain in joint, pelvic region and thigh Trochanteric bursitis of right hip Enthesopathy of hip region Immunocompromised patient (HCC) Unspecified immunity deficiency Therapeutic drug monitoring Encounter for therapeutic drug monitoring Sicca syndrome (HCC) Sicca syndrome documented in this encounter Discontinued Medications Medication Sig Discontinue Reason Start Date End Da te etanercept (ENBREL) 50 mg/mL (0.98 mL) SubQ SyringeIndications:Rh eumatoid arthritis involving multiple sites with positive rheumatoid factor (HCC) Subcutaneous (Inject under the skin) 0.98 mL once a week. Alternate therapy 06/23/2017 08/10/2018 methotrexate 25 mg/mL Inj SolutionIndications:R heumatoid arthritis involving multiple sites with positive rheumatoid factor (HCC) Subcutaneous (Inject under the skin) 0.8 mL every 7 days. Reorder 01/05/2018 08/10/2018 documented as of this encounter Care Teams Safety Risk Lead Relationship Specialty Start Date End Date Julisa Kerr MD [address] [place] [id number] PCP - General 02/22/11 Jessica Cortes MD [address] [place] [id number] Internal Medicine-Rheumatology 04/26/16 documented as of this encounter
--- OUTSIDE RECORDS SUMMARY | 2024-08-22 21:51 | XMS_ITS | Encounter Summary ---
Author Organization [place] [address] Care Team Providers Care Vp Purchasing Name Role Phone Julisa Kerr MD Primary Care Provider [phone] Jessica Cortes MD Unavailable [phone] Encounter Details Date Type Department Care Team (Latest Contact Info) Description 05/08/2018 11:04 AM EDT - 05/08/2018 12:43 PM EDT Hospital Encounter [facility] [address] [id number] Rheumatoid arthritis involving multiple sites with positive [...] a week 100 Syringe 1 06/23/2017 9 predniSONE (DELTASONE) 10 mg Oral TabletIndication [...] EST Appointment [facility] [address] [place] [address] 10/25/2024 10:45 AM EST Office Visit [facility] [address] [place] [id number] Jessica Cortes MD [address] [facility] [address] [place] [address] 01/25/2025 9:00 AM EDT Appointment [facility] [place] [address] 05/09/2025 11:00 AM EDT Appointment [facility] [place] [address] 05/09/2025 11:15 AM EDT Appointment [facility] [address] [id number] Susana Garay MD [address] [place] [address] [place] [id number] documented as of this encounter Goals Goal Patient Goal Type Associated Problems Recent Progress Patient-Stated? Author Maintain a healthy diet, exercise regularly and maintain an ideal body weight General Porsche Ashley RN documented as of this encounter Procedures Procedure Name Priority Date/Time Associated Diagnosis Comments SEDIMENTATION RATE AUTOMATED Routine 05/08/2018 11:03 AM EDT Rheumatoid arthritis involving multiple sites with positive rheumatoid factor (HCC) CBC WITH DIFF Routine 05/08/2018 11:03 AM EDT Rheumatoid arthritis involving multiple sites with positive rheumatoid factor (HCC) Therapeutic drug monitoring C-REACTIVE PROTEIN Routine 05/08/2018 11 :03 AM EDT Rheumatoid arthritis involving multiple sites with positive rheumatoid factor (HCC) COMPREHENSIVE METABOLIC PANEL Routine 05/08/2018 11:03 AM EDT Rheumatoid arthritis involving multiple sites with positive rheumatoid factor (HCC) Therapeutic drug monitoring documented in this encounter Results * C-REACTIVE PROTEIN (05/08/2018 11:03 AM EDT) CRP 1.40 <=5.00 mg/L 05/08/2018 5:31 PM EDT [employer] Blood UPPER LIMB STRUCTURE / Unknown Venipuncture / Unknown 05/08/2018 11:03 AM EDT 05/08/2018 11:04 AM EDT us Jessica Cortes MD CHEMISTRY ORDERABLES Siobhan l Result [facility] [address] [facility], [place] [address] * SEDIMENTATION RATE AUTOMATED (05/08/2018 11:03 AM EDT) Sed Rate 5 0 - 20 mm/hr 05/08/2018 4:57 PM EDT [facility] Blood UPPER LIMB STRUCTURE / Unknown Venipuncture / Unknown 05/08/2018 11:03 AM EDT 05/08/2018 11:04 AM EDT Jessica Cortes MD HEMATOLOGY ORDERABLES Fin al Result Performing Organization Address City/[facility]/ZIP Co de Phone Number [facility] [address] [place] [address] * COMPREHENSIVE METABOLIC PANEL (05/08/2018 11:03 AM EDT) [facility] Sodium 144 136 - 145 mmol/L 05/08/2018 5:31 PM EDT [facility] Potassium 4.3 3.5 - 5.0 mmol/L 05/08/2018 5:31 PM EDT [facility] Chloride 105 98 - 107 mmol/L 05/08/2018 5:31 PM EDT [facility] Total CO2 26 22 - 29 mmol/L 05/08/2018 5:31 PM EDT [facility] Anion Gap 13 7 - 16 mmol/L 05/08/2018 5:31 PM EDT [facility] Calcium 9.5 8.6 - 10.2 mg/dL 05/08/2018 5:31 PM EDT [facility] Glucose Lvl 84 74 - 100 mg/dL 05/08/2018 5:31 PM EDT [facility] BUN 10 6 - 20 mg/dL 05/08/2018 5:31 PM EDT [facility] Creatinine 0.85 0.51 - 1.30 mg/dL 05/08/2018 5:31 PM EDT [facility] Albumin 4.5 3.5 - 5.2 gm/dL 05/08/2018 5:31 PM EDT [facility] Total Protein 7.8 6.4 - 8.3 gm/dL 05/08/2018 5:31 PM EDT [facility] Bili Total 0.3 0.1 - 1.3 mg/dL 05/08/2018 5:31 PM EDT [facility] ALT 13 <=41 IU/L 05/08/2018 5:31 PM EDT [facility] AST 16 <=40 IU/L 05/08/2018 5:31 PM EDT [facility] Alk Phos 98 35 - 104 IU/L 05/08/2018 5:31 PM EDT [facility] GFR Afr Am 94 >=60 mL/min/1.7 3 m2 05/08/2018 5:31 PM EDT [facility] GFR Non Afr Am 82 >=60 mL/min/1.7 3 m2 05/08/2018 5:31 PM EDT [facility] Comment: This estimated GFR was [...] in nutritional status or muscle mass. Blood UPPER LIMB STRUCTURE / Unknown Venipuncture / Unknown 05/08/2018 11:03 AM EDT 05/08/2018 11:04 AM EDT us Jessica Cortes MD CHEMISTRY ORDERABLES Siobhan sivan Result [facility] [address] [facility], [place] [address] [facility] [address] [place] [address] * (ABNORMAL) CBC WITH AUTO DIFF (05/08/2018 11:03 AM EDT) WBC 6.3 3.7 - 10.3 x10(3)/mcL 05/08/2018 4:22 PM EDT [facility] RBC 5.07 3.90 - 5.20 x10(6)/mcL 05/08/2018 4:22 PM EDT [facility] Hgb 14.7 11.2 - 15.7 g/dL 05/08/2018 4:22 PM EDT [facility] Hct 45.6(H) 34.0 - 45.0 % 05/08/2018 4:22 PM EDT [facility] MCV 89.9 79.0 - 98.0 fL 05/08/2018 4:22 PM EDT [facility] MCH 29.0 26.0 - 32.0 pg 05/08/2018 4:22 PM EDT [facility] MCHC 32.2 30.7 - 35.5 g/dL 05/08/2018 4:22 PM EDT [facility] RDW 12.7 <=14.9 % 05/08/2018 4:22 PM EDT [facility] Platelet 277 155 - 369 x10(3)/mcL 05/08/2018 4:22 PM EDT [facility] MPV 11.0 8.8 - 12.5 fL 05/08/2018 4:22 PM EDT [facility] Neut Percent 45.0 % 05/08/2018 4:22 PM EDT [facility] Comment:Neutrophils equals s egs plus bands Imm Gran% 0.6 % 05/08/2018 4:22 PM EDT [facility] Comment:Automated count of m etamyelocytes, myelocytes and promyelocytes. Lymph Percent 38.7 % 05/08/2018 4:22 PM EDT [facility] [place] Percent 10.6 % 05/08/2018 4:22 PM EDT [facility] Eos Percent 4.1 % 05/08/2018 4:22 PM EDT [facility] Baso Percent 1.0 % 05/08/2018 4:22 PM EDT [facility] Neut # 2.8 1.6 - 6.1 x10(3)/mcL 05/08/2018 4:22 PM EDT [facility] Comment:Neutrophils equals s egs plus bands IMMGRAN# 0.0 0.0 - 0.1 x10(3)/mcL 05/08/2018 4:22 PM EDT [facility] Comment:Automated count of m etamyelocytes, myelocytes and promyelocytes. An absolute IG <0.1 is reported as 0.0. Lymph # 2.4 1.2 - 3.9 x10(3)/mcL 05/08/2018 4:22 PM EDT [facility] [place] # 0.7 0.3 - 0.9 x10(3)/mcL 05/08/2018 4:22 PM EDT [facility] Eos# 0.3 0.0 - 0.5 x10(3)/mcL 05/08/2018 4:22 PM EDT [facility] Baso # 0.1 0.0 - 0.1 x10(3)/mcL 05/08/2018 4:22 PM EDT [facility] Blood UPPER LIMB STRUCTURE / Unknown Venipuncture / Unknown 05/08/2018 11:03 AM EDT 05/08/2018 11:04 AM EDT us Jessica Cortes MD HEMATOLOGY ORDERABLES Fin al Result [facility] [address] [place] [address], [place] [address] documented in this encounter Visit Diagnoses Diagnosis Rheumatoid arthritis involving multiple sites with positive rheumatoid factor (HCC) Therapeutic drug monitoring Encounter for therapeutic drug monitoring documented in this encounter Care Teams Vp Purchasing Relationship Specialty Start Date End Date Julisa Kerr MD [address] [place] [id number] PCP - General 02/22/11 Jessica Cortes MD [address] [place] [address] [address] [place] [address] Internal Medicine-Rheumatology 04/26/16 documented as of this encounter
--- OUTSIDE RECORDS SUMMARY | 2024-08-22 21:51 | XMS_ITS | Encounter Summary ---
Author [place] [address] Care Team Providers Care Global Program Manager Name Role Phone Julisa Kerr MD Primary Care Provider [phone] Jessica Cortes MD Unavailable [phone] Reason for Visit * Reason Comments Follow-up 3 mo Rheumatoid Arthritis Osteopenia Raynaud's Syndrome * Consultation (Routine) - Closed Specialty Diagnoses / Procedures Referred By Contac t Referred To Contact Internal Medicine-Rheumatology / Rheumatology Diagnoses f/u 3 mo arth Procedures FOLLOW UP Julisa Kerr MD Phone: tel: fax: Jessica Cortes MD [address] [address] Phone: tel: fax: Referral ID Status Reason Start Date Expiration Date Visits Re quested Visits Authorized [id number] Closed 01/05/2018 01/05/2019 99 99 Encounter Details Date Type Department Care Team (Latest Contact Info) Description 01/05/2018 10:45 AM EDT Office Visit SEP Rheumatology CV [address] [address] Jessica Cortes MD [address] [place] [id number] Rheumatoid arthritis involving multiple sites with positive rheumatoid factor (HCC) (Primary Dx); Raynaud's phenomenon without gangrene; Positive BRET (antinuclear antibody); Neck pain; Osteopenia of multiple sites; Immunocompromised patient (HCC); Therapeutic drug monitoring Social [...] Sign Reading Time Taken Comments Blood Pressure 124/82 01/05/2018 11:20 AM EDT Pulse 106 01/05/2018 11:20 AM EDT Temperature - - Respiratory Rate 16 01/05/2018 11:20 AM EDT Oxygen Saturation - - Inhaled Oxygen Concentration - - Weight 61.8 kg (136 lb 3.2 oz) 01/05/2018 11:20 AM EDT Height 157.5 cm (5' 2 ) 01/05/2018 11:20 AM EDT Body Mass Index 24.91 01/05/2018 11:20 AM EDT documented in this encounter [...] daily as needed. 30 Tab 01/05/2018 9 abatacept (ORENCIA) 125 mg/mL SubQ SyringeIndication s:Rheumatoid arthritis involving multiple sites with positive rheumatoid factor (HCC) Subcutaneous (Inject under the skin) 125 mg once a week. 4 Syringe 5 01/05/2018 8 methotrexate 25 mg/mL Inj SolutionIndicatio ns:Rheumatoid arthritis involving multiple sites with positive rheumatoid factor (HCC) Subcutaneous (Inject under the skin) 0.8 mL every 7 days. 4 mL 1 01/05/2018 8 folic acid (FOLVITE) 1 mg Oral TabletIndications :Rheumatoid arthritis involving multiple sites with positive rheumatoid factor (HCC) Take 1 Tab by mouth daily. 30 Tab 5 01/05/2018 8 documented in this encounter Progress Notes * Jessica Cortes MD - 01/05/2018 10:45 AM EDT Subjective Subjective: Patient ID: Yuliet Newsome is a 47 y.o. female. Chief Complaint Patient presents with ??? Follow-up 3 mo ??? Rheumatoid Arthritis ??? Osteopenia ??? Raynaud's Syndrome HPI The patient comes in for follow up regarding RA. Symptoms started in 2002. Seen by Perfume Maker, Dr. Astorga. She was seen in [facility] but have not seen her in 6 [...] 3/10, mild swelling. Has been doing OK. She had a flare of the swelling of the left hand recently. She had a flu. It took her awhile to shake it off. She had couple of bad flares in between the visits. She is used to the pain. Joint pain: hands, knuckles, mild in the knees, toes Joint swelling: wrists, hands- knuckles Pain on a scale 0-10: 6-7/10 Type of pain: ache Morning stiffness: 1 hour. Raynaud's: worsened in the cold weather. 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 Review of Systems Constitutional: Positive for fatigue. Weight gain HENT: Positive for mouth sores. Dry mouth Gastrointestinal: Positive for diarrhea and nausea. GERD Genitourinary: Positive for difficulty urinating. Musculoskeletal: Positive for arthralgias, back pain, joint swelling, myalgias and neck pain. Neurological: Positive for headaches. Hematological: Bruises/bleeds easily. Psychiatric/Behavioral: Positive for sleep disturbance. The patient is nervous/anxious. Depression All other systems reviewed and are negative. Objective Objective: Vitals: 01/05/18 1120 BP: 124/82 Pulse: 106 Resp: 16 Weight: 136 lb 3.2 oz (61.8 kg) Height: 5' 2 (1.575 m) Body mass index is 24.91 kg/m??. Physical Exam Constitutional: She is oriented to person, place, and time. She appears well- developed and well-nourished. HENT: Head: Normocephalic and atraumatic. Eyes: Conjunctivae are normal. Pupils are equal, round, and reactive to light. Neck: Normal range of motion. Musculoskeletal: Tenderness to the spinal processes of the cervical , lumbar spine. Tenderness to the trapezius muscles. Crepitus in the right shoulder. Tenderness to the 2nd, 3rd right MCP, 1st- 3rd left MCP, 3rd, 4th right PIP, 2nd, 3rd left PIP. Synovitis in the wrists, 2nd, 3rd, 4th right MCP, 1st MCP on left. ROM of the knees, ankles intact, no effusion. ROM of the left wrist decreased. Neurological: She is alert and oriented to person, place, and time. Muscle strength 5/5 upper and lower extremities. Skin: Skin is warm. No rash noted. Psychiatric: She has a normal mood and affect. Vitals reviewed. Rapid 3: 17.8 Lab Results Component Value Date WBC 7.3 10/06/2017 HGB 14.8 10/06/2017 HCT 43.8 10/06/2017 MCV 90.0 10/06/2017 PLT 265 10/06/2017 Chemistry Component Value Date/Time NA 140 10/06/2017 1554 NA 140 07/01/2017 1532 K 4.2 10/06/2017 1554 K 3.9 07/01/2017 1532 CL 101 10/06/2017 1554 CL 102 07/01/2017 1532 CO2 23 10/06/2017 1554 CO2 22 07/01/2017 1532 BUN 10 10/06/2017 1554 BUN 11 07/01/2017 1532 CREATININE 0.69 10/06/2017 1554 CREATININE 0.78 07/01/2017 1532 GLU 95 10/06/2017 1554 GLU 103 (H) 07/01/2017 1532 Component Value Date/Time CALCIUM 9.5 10/06/2017 1554 CALCIUM 9.3 07/01/2017 1532 ALKPHOS 98 10/06/2017 1554 ALKPHOS 98 07/01/2017 1532 AST 23 10/06/2017 1554 AST 16 07/01/2017 1532 ALT 17 10/06/2017 1554 ALT 16 07/01/2017 1532 Lab Results Component Value Date CRP 1.12 10/06/2017 Lab Results Component Value Date SEDRATE 13 10/06/2017 Assessment and Plan: Yuliet was seen today for follow-up, rheumatoid arthritis, osteopenia and raynaud's syndrome. Diagnoses and all orders for this visit: Rheumatoid arthritis involving multiple sites, with positive rheumatoid factor (HCC) Dx in [address] Astorga in [facility] Records from [facility] received and reviewed. The patient was seen in 05/11/13 for initial evaluation. Presented with polyarticular joint involvement- large and small joints- shoulders, elbows, knees, wrists, knuckles, toes. Per records she had low titer (+) RF, negative CCP, (+) BRET centromere pattern > 8.0 with negative SSA/SSB, ENTERTAINMENT REPORTER, Scl 70, dsDNA Records indicate she used [...] 03/10/17 after PPD done and negative. RA active. Still periodic flares of the swelling of the joints. Synovitis in the few MCP joints, wrists. Discussed other treatment options: Orencia, Actemra, Xeljanz. Info given at the last visit. Will start Orencia 125 mg SQ weekly. - folic acid (FOLVITE) 1 mg Oral Tablet; Take 1 Tab by mouth daily. - methotrexate 25 mg/mL Inj Solution; Subcutaneous (Inject under the skin) 0.8 mL every 7 days. - abatacept (ORENCIA) 125 mg/mL SubQ Syringe; Subcutaneous (Inject under the skin) 125 mg once a week. - predniSONE (DELTASONE) 10 mg Oral Tablet; Take 1 Tab by mouth daily as needed. Raynaud's phenomenon without gangrene Positive BRET (antinuclear [...] At this point no other treatment needed Immunocompromised patient (HCC) Due to immunosuppression with MTX, Enbrel Prevnar 13 given 12/13/16 Pneumovax 23 given 03/17/17 Therapeutic drug monitoring PPD negative 03/10/17 Labs today and every 6-8 weeks while on MTX Return in about 4 months (around 05/07/2018). documented in this encounter Miscellaneous Notes * Addendum Note - Kasandra Carter CCMA - 01/05/2018 10:45 AM EDTAddended by: KASANDRA CARTER on: 01/05/2018 12:21 PM Modules accepted: Orders documented in this encounter Plan of Treatment Upcoming Encounters Date Type Department Care Team (Late st Contact Info) Description 08/31/2024 8:30 AM EST Appointment [facility] Cancer [address] [place] [address] 10/25/2024 10:45 AM EST Office Visit [facility] RHEUMATOLOGY CV [address] [place] [address] Jessica Cortes MD 651 [facility] Building [address] [place] [address] 01/25/2025 9:00 AM EDT Appointment [place] [address] [place] [address] 05/09/2025 11:00 AM EDT Appointment [place] [address] [place] [address] 05/09/2025 11:15 AM EDT Appointment [place] [address] [place] [address] Susana Garay MD [address] [place] [address] [place] [address] documented as of this encounter Goals Goal Patient Goal Type Associated Problems Recent Progress Patient-Stated? Author Maintain a healthy diet, exercise regularly and maintain an ideal body weight General Porsche Ashley RN documented as of this encounter Procedures Procedure Name Priority Date/Time Associated Diagnosis Comments SEDIMENTATION RATE AUTOMATED Routine 01/05/2018 12:24 PM EDT Rheumatoid arthritis involving multiple sites with positive rheumatoid factor (HCC) Therapeutic drug monitoring CBC WITH DIFF Routine 01/05/2018 12:24 PM EDT Rheumatoid arthritis involving multiple sites with positive rheumatoid factor (HCC) Therapeutic drug monitoring C-REACTIVE PROTEIN Routine 01/05/2018 12 :24 PM EDT Rheumatoid arthritis involving multiple sites with positive rheumatoid factor (HCC) Therapeutic drug monitoring COMPREHENSIVE METABOLIC PANEL Routine 01/05/2018 12:24 PM EDT Rheumatoid arthritis involving multiple sites with positive rheumatoid factor (HCC) Therapeutic drug monitoring documented in this encounter Results * C-REACTIVE PROTEIN (01/05/2018 12:24 PM EDT) Pathologist [facility] CRP 1.96 <=5.00 mg/L 01/05/2018 5:01 PM EDT [facility] Blood Venipuncture / Unknown 01/05/2018 12:24 PM EDT 01/05/2018 12:24 PM EDT us Jessica Cortes MD CHEMISTRY ORDERABLES Siobhan l Result Performing Organization Address City/[facility]/[place] [address] * SEDIMENTATION RATE AUTOMATED (01/05/2018 12:24 PM EDT) [facility] Sed Rate 18 0 - 20 mm/hr 01/05/2018 7:56 PM EDT [facility] Blood Venipuncture / Unknown 01/05/2018 12:24 PM EDT 01/05/2018 12:24 PM EDT us Jessica Cortes MD HEMATOLOGY ORDERABLES Fin al Result Performing Organization Address [facility] [place] [address] * CBC WITH DIFF (01/05/2018 12:24 PM EDT) [facility] WBC 6.5 4.0 - 11.0 x10(3)/mcL 01/05/2018 3:18 PM EDT [facility] RBC 4.95 3.80 - 5.10 x10(6)/mcL 01/05/2018 3:18 PM EDT [facility] Hgb 14.6 12.0 - 15.6 gm/dL 01/05/2018 3:18 PM EDT [facility] Hct 44.4 35.7 - 45.9 % 01/05/2018 3:18 PM EDT [facility] MCV 89.7 82.5 - 99.8 fL 01/05/2018 3:18 PM EDT [facility] MCH 29.4 27.0 - 34.3 pg 01/05/2018 3:18 PM EDT [facility] MCHC 32.8 32.1 - 35.3 gm/dL 01/05/2018 3:18 PM EDT [facility] RDW 13.1 11.5 - 15.0 % 01/05/2018 3:18 PM EDT [facility] Platelet 311 144 - 423 x10(3)/[facility] 01/05/2018 3:18 PM EDT [facility] MPV 8.9 6.8 - 10.8 fL 01/05/2018 3:18 PM EDT [facility] Neut Percent 60.7 % 01/05/2018 3:18 PM EDT [facility] Lymph Percent 25.4 % 01/05/2018 3:18 PM EDT [facility] [place] Percent 11.1 % 01/05/2018 3:18 PM EDT [facility] Eos Percent 1.8 % 01/05/2018 3:18 PM EDT [facility] Baso Percent 1.0 % 01/05/2018 3:18 PM EDT [facility] Neut # 3.9 1.8 - 7.7 x10(3)/[facility] 01/05/2018 3:18 PM EDT [facility] Lymph # 1.7 0.6 - 4.8 x10(3)/[facility] 01/05/2018 3:18 PM EDT [facility] [place] # 0.7 0.0 - 1.3 x10(3)/[facility] 01/05/2018 3:18 PM EDT [facility] Eos# 0.1 0.0 - 0.5 x10(3)/[facility] 01/05/2018 3:18 PM EDT [facility] Baso # 0.1 0.0 - 0.2 x10(3)/[facility] 01/05/2018 3:18 PM EDT [facility] Blood Venipuncture / Unknown 01/05/2018 12:24 PM EDT 01/05/2018 12:24 PM EDT us Jessica Cortes MD HEMATOLOGY ORDERABLES Fin al Result [facility] [address] [place] [address] * COMPREHENSIVE METABOLIC PANEL (01/05/2018 12:24 PM EDT) Sodium 142 136 - 145 mmol/L 01/05/2018 5:01 PM EDT [facility] Potassium 4.2 3.5 - 5.0 mmol/L 01/05/2018 5:01 PM EDT [facility] Chloride 102 98 - 107 mmol/L 01/05/2018 5:01 PM EDT [facility] Total CO2 27 22 - 29 mmol/L 01/05/2018 5:01 PM EDT [facility] Anion Gap 13 7 - 16 mmol/L 01/05/2018 5:01 PM EDT [facility] Calcium 9.4 8.6 - 10.2 mg/dL 01/05/2018 5:01 PM EDT [facility] Glucose Lvl 88 74 - 100 mg/dL 01/05/2018 5:01 PM EDT [facility] BUN 8 6 - 20 mg/dL 01/05/2018 5:01 PM EDT [facility] Creatinine 0.81 0.51 - 1.30 mg/dL 01/05/2018 5:01 PM EDT [facility] Albumin 3.9 3.5 - 5.2 gm/dL 01/05/2018 5:01 PM EDT [facility] Total Protein 7.2 6.4 - 8.3 gm/dL 01/05/2018 5:01 PM EDT [facility] Bili Total 0.3 0.1 - 1.3 mg/dL 01/05/2018 5:01 PM EDT [facility] ALT 14 <=41 IU/L 01/05/2018 5:01 PM EDT [facility] AST 16 <=40 IU/L 01/05/2018 5:01 PM EDT [facility] Alk Phos 90 35 - 104 IU/L 01/05/2018 5:01 PM EDT [facility] GFR Afr Am 100 mL/min/1.7 3 m2 01/05/2018 5:01 PM EDT [facility] GFR Non Afr Am 87 mL/min/1.7 3 m2 01/05/2018 5:01 PM EDT [facility] Comment: GFR Afr Am and GFR Non Afr Am calculated using CKD-EPI equation. ?? GFR Category ?GFR(mL/min/1.73 m??) ? Kidney Function G1 ?>=90 ?Normal or high G2 ?60-89 ? Mildly decreased G3a ? 45-59 ? Mildly to moderately decreased G3b ? 30-44 ? Moderately to severely decreased G4 ?15-29 ? Severely decreased G5 ?<15 ? Kidney Failure Blood Venipuncture / Unknown 01/05/2018 12:24 PM EDT 01/05/2018 12:24 PM EDT us Jessica Cortes MD CHEMISTRY ORDERABLES Siobhan sivan Result [facility] [address] [id number] documented in this encounter Visit Diagnoses Diagnosis 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 Raynaud's phenomenon without gangrene Positive BRET (antinuclear antibody) Other and unspecified nonspecific immunological findings Neck pain Cervicalgia Osteopenia of multiple sites Immunocompromised patient (HCC) Unspecified immunity deficiency Therapeutic drug monitoring Encounter for therapeutic drug monitoring documented in this encounter Discontinued Medications Medication Sig Discontinue Reason Start Date End Da te folic acid (FOLVITE) 1 mg Oral TabletIndications:Rhe umatoid arthritis involving multiple sites with positive rheumatoid factor (HCC) Take 1 Tab by mouth daily. Reorder 06/23/2017 01/05/2018 methotrexate 25 mg/mL Inj SolutionIndications:R heumatoid arthritis involving multiple sites with positive rheumatoid factor (HCC) Subcutaneous (Inject under the skin) 0.8 mL every 7 days. Reorder 10/06/2017 01/05/2018 documented as of this encounter Care Teams Global Program Manager Relationship Specialty Start Date End Date Julisa Kerr MD [address] [place] [address] PCP - General 02/22/11 Jessica Cortes MD [address] [address] Internal Medicine-Rheumatology 04/26/16 documented as of this encounter
--- OUTSIDE RECORDS SUMMARY | 2024-08-22 21:51 | XMS_ITS | Encounter Summary ---
Author Organization [place] [address] Care Team Providers Care Tail End Rider Name Role Phone Julisa Kerr MD Primary Care Provider [phone] Jessica Cortes MD Unavailable [phone] Reason for Visit * Reason Comments Medication Refill Encounter Details Date Type Department Care Team (Late st Contact Info) Description 06/09/2018 Refill SEP [facility] [address] [place] [address] Julisa Kerr MD 100 [place] [address] Medication Refill Social History Tobacco Use Types [...] End Date cyanocobalamin 1,000 mcg/mL Inj Solution IONJECT 1ML INTO THE MUSCLE EVERY MONTH 1 mL 3 06/09/2018 8 documented in this encounter Plan of Treatment Upcoming Encounters Date Type Department Care Team (Late st Contact Info) Description 08/31/2024 8:30 AM EST [address]ment [address] [place] [address] 10/25/2024 10:45 AM EST Office Visit [facility] RHEUMATOLOGY [facility] [address] [place] [address] Jessica Cortes MD [address]51 [facility] Building [address] [place] [address] 01/25/2025 9:00 AM EDT Appointment [place] [address] [place] [address] 05/09/2025 11:00 AM EDT Appointment [address] [place] [address] 05/09/2025 11:15 AM EDT Appointment [facility] [address] [place] [id number] Susana Garay MD [address] [place] [address] [place] [address] documented as of this encounter Goals Goal Patient Goal Type Associated Problems Recent Progress Patient-Stated? 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, RN documented as of this encounter Visit Diagnoses Not on filedocumented in this encounter Discontinued Medications Medication Sig Discontinue Reason Start Date End Da te cyanocobalamin (VITAMIN B-12) 1,000 mcg/mL Inj Solution Inject 1 mL into the muscle every 30 days. b 12 kit for self injection Reorder 02/13/2018 06/09/2018 documented as of this encounter Care Teams Tail End Rider Relationship Specialty Start Date End Date Julisa Kerr MD 100 [place], [place] [id number] PCP - General 02/22/11 Jessica Cortes MD 651 [facility] [address] [place] [address] Internal Medicine-Rheumatology 04/26/16 documented as of this encounter
--- OUTSIDE RECORDS SUMMARY | 2024-08-22 21:51 | XMS_ITS | Encounter Summary ---
Author Organization [place] [address] Care Team Providers Care Emergency Room Nurse Name Role Phone Julisa Kerr MD Primary Care Provider [phone] Jessica Cortes MD Unavailable [phone] Reason for Visit * Reason Comments Medication Refill Encounter Details Date Type Department Care Team (Late st Contact Info) Description 09/07/2018 Refill SEP [facility] 100 [place] [address] Julisa Kerr MD 100 [place] [address] Medication Refill Social History Tobacco Use Types [...] THE MUSCLE EVERY MONTH 1 mL 3 09/07/2018 9 documented in this encounter Plan of Treatment Upcoming Encounters Date Type Department Care Team (Late st Contact Info) Description 08/31/2024 8:30 AM EST [address]ment [address] [address] 10/25/2024 10:45 AM EST Office Visit [facility] RHEUMATOLOGY [facility] [address] [place] [address] Jessica Cortes MD [address] [facility] Building [address] [place] [address] 01/25/2025 9:00 AM EDT Appointment [place] [address] [place] [address] 05/09/2025 11:00 AM EDT Appointment [address] [place] [address] 05/09/2025 11:15 AM EDT Appointment [facility] [address] [place] [id number] Susana Garay MD [address] [place] [address] [address] [place] [place] [address] documented as of this encounter [...] 1ML INTO THE MUSCLE EVERY MONTH Reorder 06/09/2018 09/07/2018 documented as of this encounter Care Teams Emergency Room Nurse Relationship Specialty Start Date End Date Julisa Kerr MD [address] [place] [id number] PCP - General 02/22/11 Jessica Cortes MD 651 [facility] [address] [place] [address] Internal Medicine-Rheumatology 04/26/16 documented as of this encounter
--- OUTSIDE RECORDS SUMMARY | 2024-08-22 21:51 | XMS_ITS | Encounter Summary ---
Author Organization [place] [address] Care Team Providers Care Cold Meat Chef Name Role Phone Julisa Kerr MD Primary Care Provider Jessica Cortes MD Unavailable [phone] Reason for Visit * Reason Onset Date Comments Other 02/13/2018 Encounter Details Date Type Department Care Team (Late st Contact Info) Description 02/13/2018 Telephone [facility] 100 [place] [address] Julisa Kerr MD 100 [place] [address] Other Social History Tobacco Use Types Packs/Day [...] Last Filled Start Date End Date cyanocobalamin (VITAMIN B-12) 1,000 mcg/mL Inj Solution Inject 1 mL into the muscle every 30 days. b 12 kit for self injection 1 Vial 3 02/13/2018 8 cyanocobalamin (VITAMIN B-12) 1,000 mcg/mL Inj Solution Inject 1 mL into the muscle every 30 days. 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 Please call and advise. documented in this encounter Plan of Treatment Upcoming Encounters Date Type Department Care Team (Late st Contact Info) Description 08/31/2024 8:30 AM EST Appointment [place] [address] [place] [address] 10/25/2024 10:45 AM EST Office Visit [facility] R[facility]UMAT[facility] [address] [place] [address] Jessica Cortes MD [address] [facility] Building [address] [place] [address] 01/25/2025 9:00 AM EDT Appointment [address] [place] [address] 05/09/2025 11:00 AM EDT Appointment [address] [place] [address] 05/09/2025 11:15 AM EDT [address]ointment [address] [place] [address] Susana Garay MD [address] [place], [place] [id number] documented as of this encounter Goals Goal Patient Goal Type Associated Problems Recent Progress Patient-Stated? 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 RN documented as of this encounter Visit Diagnoses Diagnosis Vitamin B 12 deficiency- Primary Other B-complex deficiencies documented in this encounter Discontinued Medications Medication Sig Discontinue Reason Start Date End Da te cyanocobalamin (VITAMIN B-12) 1,000 mcg/mL Inj Solution Inject 1 mL into the muscle every 30 days. b 12 kit for self injection Reorder 02/13/2018 02/13/2018 documented as of this encounter Care Teams Cold Meat Chef Relationship Specialty Start Date End Date Julisa Kerr MD 100 [place] [address] PCP - General 02/22/11 Jessica Cortes MD [address] [facility] Building [address] [place] [address] Internal Medicine-Rheumatology 04/26/16 documented as of this encounter
--- OUTSIDE RECORDS SUMMARY | 2024-08-22 21:51 | XMS_ITS | Encounter Summary ---
Author Organization [place] [address] Care Team Providers Care Manager Product Marketing Name Role Phone Julisa Kerr MD Primary Care Provider [phone] Jessica Cortes MD Unavailable [phone] Reason for Visit * Reason Onset Date Comments Medication Management 04/24/2018 Encounter Details Date Type Department Care Team (Late st Contact Info) Description 04/24/2018 Telephone [facility] Rheumatology [facility] 651 [facility] Building [address] [place] [address] Jessica Cortes MD [address] [place] [id number] Medication Management Social History Tobacco Use Types [...] Telephone Encounter - Mel Michaels RMA - 04/24/2018 4:23 PM EDT Reviewed chart. PA approval Sumeet on file. Approval date good for 04/16/18 thru 07/17/2018. Faxed over request to [facility]. * Telephone Encounter - Jessie Bryant - 04/24/2018 3:39 PM EDT [facility]etta at [facility] spec pharm called, [phone]. Sumeet needs pa. She is faxing a cover my meds formto complete this. documented in this encounter Plan of Treatment Upcoming Encounters Date Type Department Care Team (Late st Contact Info) Description 08/31/2024 8:30 AM EST Appointment [facility] [address] [place] [address] 10/25/2024 10:45 AM EST Office Visit [facility] 651 [facility] [address] [place] [address] Jessica Cortes MD 651 [facility] 19 [place] [address] 01/25/2025 9:00 AM EDT Appointment [place] [address] [place] [address] 05/09/2025 11:00 AM EDT Appointment [address] [place] [address] 05/09/2025 11:15 AM EDT Appointment [address] [place] [address] Susana Garay MD [address] [place] [id number] documented as of this encounter Goals Goal Patient Goal Type Associated Problems Recent Progress Patient-Stated? 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, RN documented as of this encounter Visit Diagnoses Not on filedocumented in this encounter Care Teams Manager Product Marketing Relationship Specialty Start Date End Date Julisa Kerr MD 100 [place] [address] PCP - General 02/22/11 Jessica Cortes MD 651 [facility] 19 [place] [address] Internal Medicine-Rheumatology 04/26/16 documented as of this encounter
--- OUTSIDE RECORDS SUMMARY | 2024-08-22 21:51 | XMS_ITS | Encounter Summary ---
Author Organization [place] [address] Care Team Providers Care Telecommunication Engineer Name Role Phone Julisa Kerr MD Primary Care Provider [phone] Jessica Cortes MD Unavailable [phone] Reason for Visit * Reason Onset Date Comments Cough 03/31/2018 Nasal Congestion 03/31/2018 Encounter Details Date Type Department Care Team (Late st Contact Info) Description 03/31/2018 Telephone [facility] 100 [place] [address] Julisa Kerr MD 100 [place] [address] Cough; Nasal Congestion Social History Tobacco Use Types Packs/Day Years [...] daily on Days 2 through 5. 6 Tab 03/31/2018 8 documented in this encounter Miscellaneous Notes * Telephone Encounter - Gabrielle Starr - 03/31/2018 4:45 PM EDT Patient wanted to see if could call in something for coughing and chest congestion. She said that she cannot sleep at night for all the coughing. documented in this encounter Plan of Treatment Upcoming Encounters Date Type Department Care Team (Late st Contact Info) Description 08/31/2024 8:30 AM EST Appointment [facility] [address] [place] [address] 10/25/2024 10:45 AM EST Office Visit [facility] R[facility]UMAT[facility] 6[address] [facility] [address] [place] [address] Jessica Cortes MD [address] [address] 01/25/2025 9:00 AM EDT Appointment [place] [address] [place] [address] 05/09/2025 11:00 AM EDT [address]ment [address] [place] [address] 05/09/2025 11:15 AM EDT [address]ointment [address] [place] [address] Susana Garay MD [address] [place] [address] [place], [place] [id number] documented as of this encounter Goals Goal Patient Goal Type Associated Problems Recent Progress Patient-Stated? 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, RN documented as of this encounter Visit Diagnoses Diagnosis Acute bacterial sinusitis Acute sinusitis, unspecified documented in this encounter Discontinued Medications Medication Sig Discontinue Reason Start Date End Da te azithromycin (ZITHROMAX) 250 mg Oral TabletIndications:Acute bacterial sinusitis Take 2 tablets (500 mg) on Day 1, followed by 1 tablet (250 mg) once daily on Days 2 through 5. Reorder 08/20/2017 03/31/2018 documented as of this encounter Care Teams Telecommunication Engineer Relationship Specialty Start Date End Date Julisa Kerr MD [address] [place] [address] PCP - General 02/22/11 Jessica Cortes MD [address] [address] Internal Medicine-Rheumatology 04/26/16 documented as of this encounter
--- OUTSIDE RECORDS SUMMARY | 2024-08-22 21:51 | XMS_ITS | Encounter Summary ---
Author Organization [place] [address] Care Team Providers Care Plant Cytologist Name Role Phone Julisa Kerr MD Primary Care Provider [phone] Jessica Cortes MD Unavailable [phone] Reason for Visit * Reason Comments Vitamin B12 Deficiency Encounter Details Date Type Department Care Team (Latest Contact Info) Description 02/03/2018 3:00 PM EDT Clinical Support [facility] 100 [place] [address] Suki Cabrales RMA Vitamin B12 deficiency (Primary Dx) Social History Tobacco Use Types [...] No 12/24/2017 1:41 PM EDT Gina Carranza JARROD * Does this person have difficulty dressing or bathing? Answer Date of Assessment Author No 12/24/2017 1:41 PM EDT Sol Carranzacharly Henderson JARROD * Because of a physical, mental or emotional condition, does this person have difficulty doing errands alone such as visiting a doctor's office or shopping? Answer Date of Assessment Author No 12/24/2017 1:41 PM EDT Dillon Gina Henderson JARROD documented as of this encounter Mental Status * Because of a physical, mental or emotional condition, does this person have serious difficulty concentrating, remembering or making decisions? Answer Entry Date Author No 12/24/2017 1:41 PM EDT Gina Carranza JARROD documented in this encounter Progress Notes * Suki Cabrales RMA - 02/03/2018 3:00 PM EDT There were no vitals filed for this visit. Chief Complaint Patient presents with ??? Vitamin B12 Deficiency Pt is here today to get her vitamin B-12 injection. Review of Systems Physical Exam [facility] Documentation [facility] Flowsheet was not completed/reviewed as part of today's visit. Educated patient regarding the diagnosis, medication/treatment, goals, self- management tools and instructions based on their care plan. They verbalized understanding of the education given on the After Visit Summary [AVS] for today's visit. A copy of the AVS was provided either in writing and/or via [employer]. A new medicine was not prescribed on this visit. Assessment documented in this encounter Plan of Treatment Upcoming Encounters Date Type Department Care Team (Late st Contact Info) Description 08/31/2024 8:30 AM EST Appointment [facility] [address] [place] [address] 10/25/2024 10:45 AM EST Office Visit [facility] RHEUMAT[facility] 651 [facility] [address] [place] [address] Jessica Cortes MD [address] [address] 01/25/2025 9:00 AM EDT Appointment [place] [address] [place] [address] 05/09/2025 11:00 AM EDT [address]ment [address] [place] [address] 05/09/2025 11:15 AM EDT Appointment [address] [place] [address] Susana Garay MD [address] [place] [address] [place] [address] documented as of this encounter Goals Goal Patient Goal Type Associated Problems Recent Progress Patient-Stated? 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 RN documented as of this encounter Visit Diagnoses Diagnosis Vitamin B12 deficiency- Primary Other B-complex deficiencies documented in this encounter Administered Medications Inactive Administered Medications - up to 1 most recent administrations Medication Order MAR Action Action Date Dose Rate Site cyanocobalamin injection 1,000 mcg 1,000 mcg, Intramuscular, ONCE, 1 dose, On Fri02/03/18 at 1600, Dx: 1. Vitamin B12 deficiencyIndications:Vitam in B12 deficiency Given 02/03/2018 3:58 PM EDT 1,000 mcg Left Arm documented in this encounter Care Teams Plant Cytologist Relationship Specialty Start Date End Date Julisa Kerr MD 100 [place] [address] PCP - General 02/22/11 Jessica Cortes MD [address] [address] Internal Medicine-Rheumatology 04/26/16 documented as of this encounter
--- OUTSIDE RECORDS SUMMARY | 2024-08-22 21:51 | XMS_ITS | Encounter Summary ---
Author Organization [place] [address] Care Team Providers Care Chain Puller Name Role Phone Julisa Kerr MD Primary Care Provider [phone] Jessica Cortes MD Unavailable [phone] Reason for Visit * Reason Onset Date Comments Paperwork/forms 09/08/2018 Encounter Details Date Type Department Care Team (Late st Contact Info) Description 09/08/2018 Telephone [facility] Rhe[facility] [address] [address] Jessica Cortes MD [address] [address] Paperwork/forms Social History Tobacco Use Types Packs/Day Years [...] Telephone Encounter - Aleyda Naranjo MA - 09/08/2018 1:37 PM EST Spoke with patient. Form was faxed to the number she provided. * Telephone Encounter - Chata Kumar - 09/08/2018 1:08 PM EST Pt was on asking if we could fax her handicap permit paperwork [facility],the fax # is [phone] pt asks that we call and let her know either way Thank you documented in this encounter Plan of Treatment Upcoming Encounters Date Type Department Care Team (Late st Contact Info) Description 08/31/2024 8:30 AM EST Appointment [facility] Care [address] [place] [address] 10/25/2024 10:45 AM EST Office Visit [facility] RHEUMAT[facility] 651 [facility] [address] [place] [address] Jessica Cortes MD 651 [facility] 19 [place] [address] 01/25/2025 9:00 AM EDT Appointment [address] [place] [address] 05/09/2025 11:00 AM EDT Appointment [address] [place] [address] 05/09/2025 11:15 AM EDT Appointment [address] [place] [address] Susana Garay MD [address] [place], [place] [id number] documented as of this encounter Goals Goal Patient Goal Type Associated Problems Recent Progress Patient-Stated? 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, RN documented as of this encounter Visit Diagnoses Not on filedocumented in this encounter Care Teams Chain Puller Relationship Specialty Start Date End Date Julisa Kerr MD 100 [place] [address] PCP - General 02/22/11 Jessica Cortes MD 651 [facility] 19 [place] [address] Internal Medicine-Rheumatology 04/26/16 documented as of this encounter
--- OUTSIDE RECORDS SUMMARY | 2024-08-22 21:51 | XMS_ITS | Encounter Summary ---
Author Organization [place] [address] Care Team Providers Care Technical Support Analyst Name Role Phone Julisa Kerr MD Primary Care Provider [phone] Jessica Cortes MD Unavailable [phone] Reason for Visit * Reason Comments Medication Refill Encounter Details Date Type Department Care Team (Late st Contact Info) Description 03/27/2018 Refill [facility] 100 [place] [address] Julisa Kerr MD 100 [place] [address] Medication Refill Social History Tobacco Use Types [...] 25 mg Oral TabletIndications:I nsomnia, unspecified type TAKE 1 TAB BY MOUTH NIGHTLY. 30 Tab 2 03/27/2018 07/15/2018 documented in this encounter Plan of Treatment Upcoming Encounters Date Type Department Care Team (Late st Contact Info) Description 08/31/2024 8:30 AM EST Appointment [address] [place] [address] 10/25/2024 10:45 AM EST Office Visit [facility] RHEUMATOLOG[facility] [address] [place] [address] Jessica Cortes MD [address] [facility] Building 19 [place] [address] 01/25/2025 9:00 AM EDT Appointment [address] [place] [address] 05/09/2025 11:00 AM EDT Appointment [address] [place] [address] 05/09/2025 11:15 AM EDT Appointment [facility] [address] [place] [address] Susana Garay MD [address] [place] [address] [place] [address] documented as of [...] Take 1 Tab by mouth nightly. Reorder 01/05/2018 03/27/2018 documented as of this encounter Care Teams Technical Support Analyst Relationship Specialty Start Date End Date Julisa Kerr MD 100 [place], [place] [id number] PCP - General 02/22/11 Jessica Cortes MD [address] [address] Internal Medicine-Rheumatology 04/26/16 documented as of this encounter
--- OUTSIDE RECORDS SUMMARY | 2024-08-22 21:51 | XMS_ITS | Encounter Summary ---
Author Organization [place] [address] Care Team Providers Care Remelt Operator Name Role Phone Julisa Kerr MD Primary Care Provider [phone] Jessica Cortes MD Unavailable [phone] Encounter Details Date Type Department Care Team (Latest Contact Info) Description 05/08/2018 12:44 PM EDT - 05/08/2018 11:59 PM EDT Hospital Encounter GRT XRAY [address] [facility]. [place] [id number] Right hip pain Discharge Disposition: Home or Self Care [...] Description 08/31/2024 8:30 AM EST Appointment [address] [place] [address] 10/25/2024 10:45 AM EST Office Visit [facility] RHEUMATOLOGY [facility] [address] [facility] [address] [place] [address] Jessica Cortes MD [address] [facility] Building 19 [place] [address] 01/25/2025 9:00 AM EDT Appointment [address] [place] [address] 05/09/2025 11:00 AM EDT Appointment [facility] [place] [place] [address] 05/09/2025 11:15 AM EDT Appointment [facility] [place] [address] [address] Susana Garay MD [address] [place] [address] [place] [address] documented as of this encounter Goals Goal Patient Goal Type Associated Problems Recent Progress Patient-Stated? 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 RN documented as of this encounter Procedures Procedure Name Priority Date/Time Associated Diagnosis Comments XR HIP RIGHT AP LATERAL W AP PELVIS Routine 05/08/2018 1:06 PM EDT Right hip pain documented in this encounter Results * XR HIP RIGHT [...] 1:06 PM CLINICAL HISTORY: ??M25.551-Pain in right [id number] COMPARISON: ??None. PROCEDURE COMMENTS: ??AP view of [...] 1:06 PM CLINICAL HISTORY: M25.551-Pain in right [id number] COMPARISON: None. PROCEDURE COMMENTS: AP view of [...] in this encounter Visit Diagnoses Diagnosis Right hip pain Pain in joint, pelvic region and thigh documented in this encounter Care Teams Remelt Operator Relationship Specialty Start Date End Date Julisa Kerr MD 100 [place] [address] PCP - General 02/22/11 Jessica Cortes MD [address] [address] Internal Medicine-Rheumatology 04/26/16 documented as of this encounter
--- OUTSIDE RECORDS SUMMARY | 2024-08-22 21:51 | XMS_ITS | Encounter Summary ---
Author Organization [place] [address] Care Team Providers Care Pulp Maker Name Role Phone Julisa Kerr MD Primary Care Provider [phone] Jessica Cortes MD Unavailable [phone] Reason for Visit * Reason Comments Medication Refill Encounter Details Date Type Department Care Team (Late st Contact Info) Description 10/04/2018 Refill [facility] 100 [place] [address] Julisa Kerr MD 100 [place] [address] Medication Refill Social History Tobacco Use Types [...] EVERY DAY AT NIGHT 30 Tab 2 10/05/2018 12/28/2018 documented in this encounter Plan of Treatment Upcoming Encounters Date Type Department Care Team (Late st Contact Info) Description 08/31/2024 8:30 AM EST Appointment [address] [place] [address] 10/25/2024 10:45 AM EST Office Visit [facility] 651 [facility] [address] [place] [address] Jessica Cortes MD [address] [facility] Building 19 [place] [address] 01/25/2025 9:00 AM EDT Appointment [place] [address] [place] [address] 05/09/2025 11:00 AM EDT Appointment [address] [place] [address] 05/09/2025 11:15 AM EDT Appointment [facility] [address] [place] [id number] Susana Garay MD [address] [place] [address] [place] [address] documented as of [...] BY MOUTH EVERY DAY AT NIGHT Reorder 07/15/2018 10/04/2018 documented as of this encounter Care Teams Pulp Maker Relationship Specialty Start Date End Date Julisa Kerr MD 100 [place], [place] [id number] PCP - General 02/22/11 Jessica Cortes MD 651 [facility] 19 [place] [address] Internal Medicine-Rheumatology 04/26/16 documented as of this encounter
--- OUTSIDE RECORDS SUMMARY | 2024-08-22 21:51 | XMS_ITS | Encounter Summary ---
Author Organization [place] [address] Care Team Providers Care General Worker Name Role Phone Julisa Kerr MD Primary Care Provider [phone] Jessica Cortes MD Unavailable [phone] Reason for Visit * Reason Comments PPD Placement Encounter Details Date Type Department Care Team (Late st Contact Info) Description 05/26/2018 10:15 AM EDT Clinical Support [facility] 100 [place] [address] Porsche Jeffery RN PPD screening test (Primary Dx) Social History Tobacco Use Types [...] 1:41 PM EDT Gina Carranza JARROD * Because of a physical, mental or emotional condition, does this person have difficulty doing errands alone such as visiting a doctor's office or shopping? Answer Date of Assessment Author No 12/24/2017 1:41 PM EDT Gina Carranza JARROD documented as of this encounter Mental Status * Because of a physical, mental or emotional condition, does this person have serious difficulty concentrating, remembering or making decisions? Answer Entry Date Author No 12/24/2017 1:41 PM EDT Gina Carranza JARROD documented in this encounter Progress Notes * Porsche Jeffery RN - 05/26/2018 10:15 AM EDT Health Hi Low Truck Driver: Patient denies having any reaction post TB Test in the past and denies havingany cough, night sweats, unexpected weight loss, etc.. [facility] reviewed the TB Test with patient and she denies questions or concerns at this time. TB Test was administered in the left Forearm and patient tolerated test well. Patient has been advised to return to office in 48 to 72 hours to have test read. documented in this encounter Plan of Treatment Upcoming Encounters Date Type Department Care Team (Late st Contact Info) Description 08/31/2024 8:30 AM EST Appointment [place] [address] [place] [address] 10/25/2024 10:45 AM EST Office Visit [facility] R[facility]UMAT[facility] [address] [facility] [address] [place] [address] Jessica Cortes MD 651 [facility] Building 19 [place] [address] 01/25/2025 9:00 AM EDT Appointment [place] [address] [place] [address] 05/09/2025 11:00 AM EDT Appointment [facility] [place] [address] [place] [address] 05/09/2025 11:15 AM EDT Appointment [facility] [place] [address] Susana Garay MD [address] [place] [address] [place] [address] documented as of this encounter Goals Goal Patient Goal Type Associated Problems Recent Progress Patient-Stated? 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, RN documented as of this encounter Procedures Procedure Name Priority Date/Time Associated Diagnosis Comments PLACE PPD Routine 05/28/2018 10:07 AM EDT PPD screening test documented in this encounter Results * PLACE PPD (05/28/2018 10:07 AM EDT) TB Skin Test negative SEP OFFICE us Julisa Kerr MD NURSING TREATMENT OR DERABLES - ONCE OR AT INTERVALS Final Result SEP OFFICE documented in this encounter Visit Diagnoses Diagnosis PPD screening test- Primary Screening examination for pulmonary tuberculosis documented in this encounter Care Teams General Worker Relationship Specialty Start Date End Date Julisa Kerr MD 100 [place] [address] PCP - General 02/22/11 Jessica Cortes MD 651 [facility] 19 [place], [place] [id number] Internal Medicine-Rheumatology 04/26/16 documented as of this encounter
--- OUTSIDE RECORDS SUMMARY | 2024-08-22 21:51 | XMS_ITS | Encounter Summary ---
Author Organization [place] [address] Care Team Providers Care Fashion Show Director Name Role Phone Julisa Pat MD Primary Care Provider [phone] Jessica Cortes MD Unavailable [phone] Reason for Visit * Reason Comments Annual Exam Vitamin B12 Deficiency Encounter Details Date Type Department Care Team (Late st Contact Info) Description 12/24/2017 1:30 PM EDT Office Visit [facility] [address] [place] [phone] Julisa Pat MD [address] [place] [address] Annual physical exam (Primary Dx); Herpes labialis; Rheumatoid arthritis involving multiple sites with positive rheumatoid factor (HCC); Immunocompromised patient (HCC); Vitamin B 12 deficiency Social History Tobacco Use Types Packs/Day Years [...] Sign Reading Time Taken Comments Blood Pressure 106/68 12/24/2017 1:41 PM EDT Pulse - - Temperature 36.8 ??C (98.2 ??F) 12/24/2017 1:41 PM ED T Respiratory Rate - - Oxygen Saturation - - Inhaled Oxygen Concentration - - Weight 61.7 kg (136 lb) 12/24/2017 1:41 PM EDT Height 157.5 cm (5' 2 ) 12/24/2017 1:41 PM EDT Body Mass Index 24.87 12/24/2017 1:41 PM EDT documented in this encounter Functional [...] flare of cold sore 12 Tab 1 12/24/2017 01/09/2019 documented in this encounter Progress Notes * Julisa Pat MD - 12/24/2017 1:30 PM EDT Vitals: 03/28/18 1341 BP: 106/68 Temp: 98.2 ??F (36.8 ??C) TempSrc: Tympanic Weight: 136 lb (61.7 kg) Height: 5' 2 (1.575 m) Chief Complaint Patient presents with ??? Annual Exam ??? Vitamin B12 Deficiency Annual Exam This is a new problem. The current episode started today. The problem occurs constantly. The problem has been unchanged. Associated symptoms include arthralgias, fatigue, joint swelling and a rash. Pertinent negatives include no fever. Pt is here today for a check and a b12 injection. Pt states that she is recovering form the flu as well Well Adult: Subjective Ms. Newsome is a 47 y.o. female here for an annual wellness visit. Diet: good Exercise: good Activities of Daily Living: Functional Level: Self-care ADL Limitations: none Social Interaction Screen: Do you have concerns about issues that may impact social interaction such as developmental or behavioral/mental health conditions? no Health Maintenance Due Topic Date Due ??? Annual Wellness Exam 11/07/2017 Health Maintenance Topic Date Due ??? Annual Wellness Exam 11/07/2017 ??? Cervical Cancer Screening 12/24/2020 ??? Influenza Vaccine Addressed Immunization History Administered Date(s) Administered ??? Influenza Vaccine Quadrivalent 07/01/2017 ??? PPD Test 05/13/2013, 07/21/2014, 09/18/2015, 03/10/2017 ??? Pneumococcal Conjugate Vaccine 13 Valent 12/13/2016 ??? Pneumococcal Polysaccharide 23 Valent 03/17/2017 Patient Active Problem List Diagnosis ??? PRAVEEN (stress urinary incontinence, female) ??? Raynaud's phenomenon ??? Rheumatoid arthritis involving multiple sites with positive rheumatoid factor (HCC) ??? Osteopenia ??? Immunocompromised patient (HCC) ??? Vitamin B 12 deficiency Past Medical History: Diagnosis Date ??? Arthritis Past Surgical History: Procedure Laterality Date ??? HYSTEROSCOPY ??? BARBIE AND BSO 2001 Allergies Allergen Reactions ??? Mobic [Meloxicam] Hives Current Outpatient Prescriptions on File Prior to Visit Medication Sig Dispense Refill ??? amitriptyline (ELAVIL) 25 mg Oral Tablet Take 1 Tab by mouth nightly. 30 Tab 2 ??? etanercept (ENBREL) 50 mg/mL (0.98 mL) SubQ Syringe Subcutaneous (Inject under the skin) 0.98 mL once a week. 4 Syringe 2 ??? fluticasone (FLONASE) 50 mcg/actuation Nasl [place], Suspension 1 [place] by Nasal route daily. 1 Bottle 2 [...] every 7 days. 4 mL 1 ??? VENTOLIN HFA 90 mcg/actuation Inhl HFA Aerosol Inhaler INHALE TWO PUFFS BY MOUTH EVERY 6 HOURS NEEDED FOR WHEEZING 1 Inhaler 0 No current facility-administered medications on file prior to visit. Social History Social History ??? Marital status: Spouse name: N/A ??? Number of children: N/A ??? Years of education: N/A Social History Main Topics ??? Smoking status: Never Smoker ??? Smokeless tobacco: Never Used ??? Alcohol use Yes Comment: occasional ??? Drug use: Unknown ??? Sexual activity: Yes Other Topics Concern ??? None Social History Narrative ??? None Family History Problem Relation Age of Onset ??? Arthritis Father ??? Arthritis Paternal Grandmother No exam data present No results found for this visit on 12/24/17. Patient Care Team: Julisa Pat MD as PCP - General Jessica Cortes MD (Internal Medicine-Rheumatology) Lab Results Component Value Date WBC 7.3 10/06/2017 HGB 14.8 10/06/2017 HCT 43.8 10/06/2017 PLT 265 10/06/2017 ALT 17 10/06/2017 AST 23 10/06/2017 NA 140 10/06/2017 K 4.2 10/06/2017 CL 101 10/06/2017 CREATININE 0.69 10/06/2017 BUN 10 10/06/2017 CO2 23 10/06/2017 TSH 1.350 09/20/2015 GLU 95 10/06/2017 HGBA1C 5.1 09/20/2015 TSHREFLEX 1.530 07/01/2017 === Other chronic disease management or a new acute condition was addressed today as a separate identifiable service today and the HPI of those conditions may be noted in the body of this note just below this statement with associated pertinent ROS/EXAM/A&P incorporated into the documentation within the appropriate sections of the note. Separate service billing not applicable if the patient is in for Initial Medicare wellness Assessment or as a new patient to the practice. Some commercial insurers may not allow wellness services and acute care/chronic care service billing on the same dateof service. === Additional issues addressed today: Review of Systems Constitutional: Positive for fatigue. Negative for fever. HENT: Negative. Respiratory: Negative. Cardiovascular: Negative. Gastrointestinal: Negative. Musculoskeletal: Positive for arthralgias, gait problem and joint swelling. Skin: Positive for rash. vessicular rash to right upper lip Psychiatric/Behavioral: Negative. Physical Exam Constitutional: She appears well-developed. HENT: Head: Normocephalic and atraumatic. Cardiovascular: Normal rate and regular rhythm. Pulmonary/Chest: Effort normal. She has no wheezes. Abdominal: Soft. There is no tenderness. Musculoskeletal: She exhibits edema, tenderness and deformity. Skin: Rash noted. There is erythema. Psychiatric: She has a normal mood and affect. Nursing note and vitals reviewed. Patient Active Problem List Diagnosis ??? PRAVEEN (stress urinary incontinence, female) ??? Raynaud's phenomenon ??? Rheumatoid arthritis involving multiple sites with positive rheumatoid factor (HCC) ??? Osteopenia ??? Immunocompromised patient (HCC) ??? Vitamin B 12 deficiency See time date stamps in the EMR for other pertient history components reviewed as part of today's encounter. [facility] Documentation Medication Compliance: Compliant all the time Understanding of Current Medications: Good Medication Compliance Barriers: None or N/A Self-Management Tools: N/A, no chronic conditions Self-Management Ability: Good Willingness to Adopt Healthy Behaviors: Good Potential Barriers to completing treatment plans today: No significant barriers [facility] Flowsheet was completed/reviewed as part of today's visit. Educated patient regarding the diagnosis, medication/treatment, goals, self- management tools and instructions based on their care plan. They verbalized understanding of the education given on the After Visit Summary [AVS] for today's visit. A copy of the AVS was provided either in writing and/or via AquaMobile. A new medicine was not prescribed on this visit. Assessment Diagnoses and all orders for this visit: Annual physical exam Herpes labialis - valACYclovir (VALTREX) 1 gram Oral Tablet; Take 2 Tabs by mouth 2 times daily for 2 days. Per flare of cold sore Dispense: 12 Tab; Refill: 1 Rheumatoid arthritis involving multiple sites with positive rheumatoid factor (HCC) (Chronic) Immunocompromised patient (HCC) (Chronic) Vitamin B 12 deficiency - cyanocobalamin injection 1,000 mcg; Inject 1 mL into the muscle once. Above problems were discussed with patient and [...] for today's visit. documented in this encounter Miscellaneous Notes * Addendum Note - Julisa Pat MD - 12/24/2017 1:30 PM EDTAddended by: JULISA PAT on: 12/25/2017 08:02 PM Modules accepted: Level of Service documented in this encounter Plan of Treatment Upcoming Encounters Date Type Department Care Team (Late st Contact Info) Description 08/31/2024 8:30 AM EST Appointment [facility] [address] [place] [address] 10/25/2024 10:45 AM EST Office Visit [facility] [address] [place] [phone] Jessica Cortes MD [address] [facility] [address] [place] [address] 01/25/2025 9:00 AM EDT Appointment [facility] [place] [address] 05/09/2025 11:00 AM EDT Appointment [facility] [place] [address] 05/09/2025 11:15 AM EDT Appointment [facility] [place] [address] Susana Garay MD [address] [place] [address] [address] [place] [id number] documented as of this encounter Goals Goal Patient Goal Type Associated Problems Recent Progress Patient-Stated? 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 RN documented as of this encounter Visit Diagnoses Diagnosis Annual physical exam- Primary Routine general medical examination at a health care facility Herpes labialis Herpes simplex without mention of complication Rheumatoid arthritis involving multiple sites with positive rheumatoid factor (HCC) Immunocompromised patient (HCC) Unspecified immunity deficiency Vitamin B 12 deficiency Other B-complex deficiencies documented in this encounter Administered Medications Inactive Administered Medications - up to 1 most recent administrations Medication Order MAR Action Action Date Dose Rate Site cyanocobalamin injection 1,000 mcg 1,000 mcg, Intramuscular, ONCE, 1 dose, On Fri12/24/17 at 1415, Dx: 1. Vitamin B 12 deficiencyIndications:Vitam in B 12 deficiency Given 12/24/2017 2:10 PM EDT 1,000 mcg Left Arm documented in this encounter Care Teams Fashion Show Director Relationship Specialty Start Date End Date Julisa Pat MD [address] [place] [address] PCP - General 02/22/11 Jessica Cortes MD [address] [address] Internal Medicine-Rheumatology 04/26/16 documented as of this encounter
--- OUTSIDE RECORDS SUMMARY | 2024-08-22 21:51 | XMS_ITS | Encounter Summary ---
Author Organization [place] [address] Care Team Providers Care Lime Supervisor Name Role Phone Julisa Kerr MD Primary Care Provider [phone] Jessica Cortes MD Unavailable [phone] Reason for Visit * Reason Comments Employment Physical Encounter Details Date Type Department Care Team (Late st Contact Info) Description 10/01/2018 1:30 PM EST Office Visit [facility] [address] [place] [phone] Julisa Kerr MD [address] [place] [address] Rheumatoid arthritis involving multiple sites with positive rheumatoid factor (HCC) (Primary Dx); Swelling of left thumb Social History Tobacco Use Types Packs/Day Years [...] Sign Reading Time Taken Comments Blood Pressure 126/84 10/01/2018 2:16 PM EST Pulse - - Temperature 36.7 ??C (98 ??F) 10/01/2018 2:16 PM EST Respiratory Rate - - Oxygen Saturation - - Inhaled Oxygen Concentration - - Weight 61.2 kg (135 lb) 10/01/2018 2:16 PM EST Height 157.5 cm (5' 2 ) 10/01/2018 2:16 PM EST Body Mass Index 24.69 10/01/2018 2:16 PM EST documented in this encounter Functional [...] 2:11 PM EST Gina Carranza RMA documented as of this [...] (DELTASONE) 20 mg Oral TabletIndications:R heumatoid arthritis involving multiple sites with positive rheumatoid factor (HCC),Swelling of left thumb Take 2 Tabs by mouth daily for 5 days. 10 Tab 10/01/2018 10/06/2018 documented in this encounter Progress Notes * Julisa Kerr MD - 10/01/2018 1:30 PM EST Vitals: 10/01/18 1416 BP: 126/84 Temp: 98 ??F (36.7 ??C) TempSrc: Tympanic Weight: 135 lb (61.2 kg) Height: 5' 2 (1.575 m) Chief Complaint Patient presents with ??? Employment Physical Abstract This is a new problem. The current episode started today. The problem occurs constantly. The problem has been unchanged. Associated symptoms include arthralgias and joint swelling. Pertinent negatives include no abdominal pain, coughing, fatigue, fever or nausea. 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 HENT: Negative. Respiratory: Negative for cough and wheezing. Gastrointestinal: Negative for abdominal pain, diarrhea and nausea. Genitourinary: Negative. Musculoskeletal: Positive for arthralgias and joint swelling. Skin: Negative. Physical Exam Constitutional: She appears well-developed. HENT: Head: Normocephalic. Cardiovascular: Normal rate and regular rhythm. Pulmonary/Chest: Effort normal. She has no wheezes. Abdominal: Soft. There is no tenderness. Musculoskeletal: She exhibits edema, tenderness and deformity. Skin: Skin is warm. Psychiatric: She has a normal mood and affect. Her behavior is normal. Nursing note and vitals reviewed. See time date stamps in the EMR for other pertient history components reviewed as part of today's encounter. [facility] Documentation Medication Compliance: Compliant all the time Understanding of Current Medications: Good Medication Compliance Barriers: None or N/A Self-Management Tools: N/A, no chronic conditions Self-Management Ability: Good Willingness to Adopt Healthy Behaviors: Good Potential Barriers to completing treatment plans today: No significant barriers [facility] Flowsheet was completed/reviewed as part of today's visit. Educated patient regarding the diagnosis, medication/treatment, goals, self- management tools and instructions based on their care plan. They verbalized understanding of the education given on the After Visit Summary [AVS] for today's visit. A copy of the AVS was provided either in writing and/or via [employer]seed. A new medicine was not prescribed on this visit. Assessment Diagnoses and all orders for this visit: Rheumatoid arthritis involving multiple sites with positive rheumatoid factor (HCC) - predniSONE (DELTASONE) 20 mg Oral Tablet; Take 2 Tabs by mouth daily for 5 days. Dispense: 10 Tab; Refill: 0 Swelling of left thumb - predniSONE (DELTASONE) 20 mg Oral Tablet; Take 2 Tabs by mouth daily for 5 days. Dispense: 10 Tab; Refill: 0 Her mom took in her grandkids and she will be doing respite. documented in this encounter Plan of Treatment Upcoming Encounters Date Type Department Care Team (Late st Contact Info) Description 08/31/2024 8:30 AM EST Appointment [address] [address] 10/25/2024 10:45 AM EST Office Visit [facility] [address] [place] [phone] Jessica Cortes MD [address] [place] [address] 01/25/2025 9:00 AM EDT Appointment [address] [address] 05/09/2025 11:00 AM EDT Appointment [address] [address] 05/09/2025 11:15 AM EDT Appointment [address] [address] Susana Garay MD [address] [place], [place] [id number] documented as of this encounter Goals Goal Patient Goal Type Associated Problems Recent Progress Patient-Stated? 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, RN documented as of this encounter Visit Diagnoses Diagnosis 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 Swelling of left thumb Swelling of limb documented in this encounter Care Teams Lime Supervisor Relationship Specialty Start Date End Date Julisa Kerr MD [address] [place] [address] PCP - General 02/22/11 Jessica Cortes MD [address] [facility] [address] [place] [address] Internal Medicine-Rheumatology 04/26/16 documented as of this encounter
--- OUTSIDE RECORDS SUMMARY | 2024-08-22 21:51 | XMS_ITS | Encounter Summary ---
Author [place] [address] Care Team Providers Care Trim Technician Name Role Phone Julisa Kerr MD Primary Care Provider [phone] Jessica Cortes MD Unavailable [phone] Reason for Referral * Physical Therapy (Routine) - Closed Specialty Diagnoses / Procedures Referred By Contciarra t Referred To Contact Physical Therapy Diagnoses Neck pain Jessica Cortes MD [address] [place] [address] Phone: tel: fax: Referral ID Status Reason Start Date Expiration Date V isits Requested Visits Authorized [id number] Closed Specialty Services Required 11/11/2018 11/11/2019 1 1 Question Answer Reason for Physical Therapy Evaluate and Treat Comments Neck pain * DEXA (Routine) - Closed Specialty Diagnoses / Procedures Referred By Contciarra t Referred To Contact Radiology Diagnoses Osteopenia of multiple sites Procedures DX BONE DENSITY AXIAL SKELETON Jessica Cortes MD [address] [place] [address] Phone: tel: fax: Referral ID Status Reason Start Date Expiration Date Visits Re quested Visits Authorized [id number] Closed 11/11/2018 11/11/2019 1 1 Reason for Visit * Reason Comments Follow-up 3 month Rheumatoid Arthritis Raynaud's Syndrome Osteopenia Other Trochanteric bursiti s of right hip * Consultation (Routine) - Closed Specialty Diagnoses / Procedures Referred By Contciarra t Referred To Contact Internal Medicine-Rheumatology / Rheumatology Diagnoses f/u 3 mo arth Procedures FOLLOW UP Julisa Kerr MD Phone: tel: fax: Jessica Cortes MD [address] [address] Phone: tel: fax: Referral ID Status Reason Start Date Expiration Date Visits Re quested Visits Authorized [id number] Closed 01/05/2018 01/05/2019 99 99 Encounter Details Date Type Department Care Team (Latest Contact Info) Description 11/11/2018 1:15 PM EST Office Visit [facility] Rheumatology [facility] [address] [facility] [address] [place] [id number] Jessica Cortes MD [address] [place] [address] Rheumatoid arthritis involving multiple sites with positive [...] Sign Reading Time Taken Comments Blood Pressure 126/70 11/11/2018 1:17 PM EST Pulse 97 11/11/2018 1:17 PM EST Temperature - - Respiratory Rate 16 11/11/2018 1:17 PM EST Oxygen Saturation - - Inhaled Oxygen Concentration - - Weight 62.2 kg (137 lb 3.2 oz) 11/11/2018 1:17 P M EST Height 157.5 cm (5' 2 ) 11/11/2018 1:17 PM EST Body Mass Index 25.09 11/11/2018 1:17 PM EST documented in this encounter Functional [...] of Assessment Author No 10/01/2018 2:11 PM Gnia Parada RMA documented as of this encounter Mental Status * Because of a physical, mental or emotional condition, does this person have serious difficulty concentrating, remembering or making decisions? Answer Entry Date Author No 10/01/2018 2:11 PM Gina Parada RMA documented in this encounter Ordered Prescriptions Prescription Sig Dispense Quantity Refills Last Filled Start Date End Date tocilizumab (ACTEMRA) 162 mg/0.9 mL SubQ SyringeIndication s:Rheumatoid arthritis involving multiple sites with positive rheumatoid factor (HCC),Therapeutic drug monitoring Subcutaneous (Inject under the skin) 0.9 mL once a week. 4 Syringe 3 11/11/2018 9 methotrexate 25 mg/mL Inj SolutionIndicatio ns:Rheumatoid arthritis involving multiple sites with positive rheumatoid factor (HCC) Subcutaneous (Inject under the skin) 0.8 mL every 7 days. 4 mL 1 11/11/2018 9 documented in this encounter Progress Notes * Jessica Cortes MD - 11/11/2018 1:15 PM EST Subjective Subjective: Patient ID: Yuliet Newsome is a 48 y.o. female. Chief Complaint Patient presents with ??? Follow-up 3 month ??? Rheumatoid Arthritis ??? Raynaud's Syndrome ??? Osteopenia ??? Other Trochanteric bursitis of right hip HPI The patient comes in for follow up regarding RA. Symptoms started in 2002. Seen by User Experience Architect, Dr. Astorga. She was seen in [facility] but have not seen her in [...] mild pain- 3/10, mild swelling. Has been having flare of arthritis for the last month, past two weeks have been really bad. Both hands were flaring the most. She has episodes of severe pain in the neck, shock like sensation that moves to the back of the head and to the right arm, lasting 10 minutes and easing up. She has to be still and relax and it resolves. Dry eyes realy bothersome. Uses eye drops. Dry mouth pretty bothersome. Joint pain: hands, mainly knuckles, right hip Joint swelling: knuckles Pain on a scale 0-10: 8/10 Type of pain: ache Morning stiffness: 60 minutes. Raynaud's: worsened in the cold weather. Current therapy: MTX 20 mg q week ( for the last 13 years), Orencia 125 mg SQ weekly- started 04/2018, prednisone taper as needed Previous therapy: Tylenol, Codeine, Darvocet, Motrin, Naproxen, Celebrex, Lodine did not help, MTX helped some, Enbrel 50 mg sq q week (since 2012- till 01/2018)- ineffective, Humira- rash, Remicade- ineffective Patients past medical, family and social histories were reviewed and updated. There were no changesexcept as noted. 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 fluticasone (FLONASE) 50 mcg/actuation Nasl Tilton, Suspension 1 Tilton by Nasal route daily. 1 Bottle 2 ??? folic acid (FOLVITE) 1 mg Oral Tablet Take 1 Tab by mouth daily. 30 Tab 5 ??? Insulin Syringe-Needle U-100 (BD INSULIN SYRINGE) 1 mL 25 gauge x 5/8 Misc Syringe Use for MTXinjection once a week 100 Syringe 1 ??? predniSONE (DELTASONE) 10 mg Oral Tablet Take 1 Tab by mouth daily as needed. 30 Tab 0 ??? VENTOLIN HFA 90 mcg/actuation Inhl HFA Aerosol Inhaler INHALE TWO PUFFS BY MOUTH EVERY 6 HOURS NEEDED FOR WHEEZING 1 Inhaler 0 No current facility-administered medications on file prior to visit. Social History Substance Use Topics ??? Smoking status: Never Smoker ??? Smokeless tobacco: Never Used ??? Alcohol use Yes Comment: occasional Family History Problem Relation Age of Onset [...] reviewed and are negative. Objective Objective: Vitals: 11/11/18 1317 BP: 126/70 Pulse: 97 Resp: 16 Weight: 137 lb 3.2 oz (62.2 kg) Height: 5' 2 (1.575 m) Body mass index is 25.09 kg/m??. Physical Exam Constitutional: She is oriented to person, place, and time. She appears well- developed and well-nourished. HENT: Head: Normocephalic and atraumatic. Eyes: Pupils are equal, round, and reactive to light. Conjunctivae are normal. Neck: Normal range of motion. Musculoskeletal: Tenderness to the trapezius muscles, paraspinals in the lumbar area. . Crepitus in the right shoulder. Tenderness to both wrists, 2nd, 3rd, 5th right MCP, 1st- 3rd left MCP, 5th right PIP. Synovitis in the wrists, 2nd, 3rd, 5th right MCP, 1st left MCP. ROM of the knees, ankles intact, no effusion. ROM of the wrists decreased. No tenderness to the trochanteric bursa. No pain on the ROM of the right hip. Neurological: She is alert and oriented to person, place, and time. Muscle strength 5/5 upper and lower extremities. Skin: Skin is warm. No rash noted. Psychiatric: She has a normal mood and affect. Vitals reviewed. Rapid 3: 20.3 Lab Results Component Value Date WBC 8.5 08/10/2018 HGB 14.5 08/10/2018 HCT 44.7 08/10/2018 MCV 89.4 08/10/2018 PLT 300 08/10/2018 Chemistry Component Value Date/Time NA 140 08/10/2018 1559 NA 140 07/01/2017 1532 K 4.8 08/10/2018 1559 K 3.9 07/01/2017 1532 CL 101 08/10/2018 1559 CL 102 07/01/2017 1532 CO2 29 08/10/2018 1559 CO2 22 07/01/2017 1532 BUN 10 08/10/2018 1559 BUN 11 07/01/2017 1532 CREATININE 0.83 08/10/2018 1559 CREATININE 0.78 07/01/2017 1532 GLU 89 08/10/2018 1559 GLU 103 (H) 07/01/2017 1532 Component Value Date/Time CALCIUM 9.5 08/10/2018 1559 CALCIUM 9.3 07/01/2017 1532 ALKPHOS 108 (H) 08/10/2018 1559 ALKPHOS 98 07/01/2017 1532 AST 16 08/10/2018 1559 AST 16 07/01/2017 1532 ALT 7 08/10/2018 1559 ALT 16 07/01/2017 1532 Lab Results Component Value Date CRP 1.32 08/10/2018 Lab Results Component Value Date SEDRATE 7 08/10/2018 Assessment and Plan: Yuliet was seen today for follow-up, rheumatoid arthritis, raynaud's syndrome, osteopenia and other. Diagnoses and all orders for this visit: Rheumatoid arthritis involving multiple sites, with positive rheumatoid factor (HCC) Dx in [address] Astorga in [facility]. Records from [facility] received and reviewed. The patient was seen in 05/11/13 for initial evaluation. Presented with polyarticular joint involvement- large and small joints- shoulders, elbows, knees, wrists, knuckles, toes. 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 Still active, synovitis in the wrists, 2nd, 3rd right, 5th MCP, 1st left MCP. Will change Orencia to Actemra 162 mg sq 1 week. Risks of therapy discussed with the patient including injection site reactions, susceptibility to infections, reactivation of Tuberculosis and Histoplasmosis, bone marrow toxicity, cancers and lymphomas, elevation of liver function tests, neutropeniaand hypercholesterolemia. Written information provided. PPD negative. Hepatitis panel negative. Patient should hold therapy while being treated for infections. Patient should not receive live vaccines while on therapy. - methotrexate 25 mg/mL Inj Solution; Subcutaneous (Inject under the skin) 0.8 mL every 7 days. - tocilizumab (ACTEMRA) 162 mg/0.9 mL SubQ Syringe; Subcutaneous (Inject under the skin) 0.9 mL once a week. - LIPID PANEL REFLEX; Future - SEDIMENTATION RATE AUTOMATED; Standing - C-REACTIVE [...] this point Regular stretches, heat, ice, massage - XR CERVICAL SPINE AP LATERAL FLEXION EXTENSION; Future - AMB REFERRAL TO PHYSICAL THERAPY Osteopenia of multiple sites Surgical menopause in 2000 Hx of RA, frequent prednisone use Bone density ( 05/03/16) T score -2.2 at the right femoral neck FRAX score - risk for fracture is low. Vitamin D daily Weight bearing exercises regularly Recheck DXA - DX BONE DENSITY AXIAL SKELETON; Future Trochanteric bursitis of right hip Improved No [...] and every 6-8 weeks while on MTX Lipid panel prior to starting Actemra and then 3 month later - tocilizumab (ACTEMRA) 162 mg/0.9 mL SubQ Syringe; Subcutaneous (Inject under the skin) 0.9 mL once a week. Return in about 10 weeks (around 01/20/2019). documented in this encounter Plan of Treatment Upcoming Encounters Date Type Department Care Team (Late st Contact Info) Description 08/31/2024 8:30 AM EST Appointment [place] [id number] [place] [id number] 10/25/2024 10:45 AM EST Office Visit [facility] [address] [facility] [address] [place] [address] Jessica Cortes MD [address] [facility] [address] [place] [address] 01/25/2025 9:00 AM EDT Appointment [place] [address] [place] [address] 05/09/2025 11:00 AM EDT Appointment [facility] [address] [place] [address] 05/09/2025 11:15 AM EDT Appointment [facility] [place] [place] [address] Susana Garay MD [address] [place] [address] [address] [place], [place] [id number] Scheduled Orders Name Type Priority Associated Diagnoses Orde r Schedule SEDIMENTATION RATE AUTOMATED Lab Routine Rheumatoid arthritis involving multiple sites with positive rheumatoid factor (HCC) Every 6 weeks for 10 Occurrences starting 11/11/2018 until 11/11/2019, 3 completed C-REACTIVE PROTEIN Lab Routine Rheumatoid arthritis involving multiple sites with positive rheumatoid factor (HCC) Every 6 weeks for 10 Occurrences starting 11/11/2018 until 11/11/2019, 3 completed CBC WITH DIFF Lab Routine Rheumatoid arthritis involving multiple sites with positive rheumatoid factor (HCC) Every 6 weeks for 10 Occurrences starting 11/11/2018 until 11/11/2019, 3 completed COMPREHENSIVE METABOLIC PANEL Lab Routine Rheumatoid arthritis involving multiple sites with positive rheumatoid factor (HCC) Every 6 weeks for 10 Occurrences starting 11/11/2018 until 11/11/2019, 3 completed Scheduled Referrals Name Type Priority Associated Diagnoses Orde r Schedule AMB REFERRAL TO PHYSICAL THERAPY Outpatient Referral Routine Neck pain Ordered: 11/11/2018 documented as of this encounter Goals Goal Patient Goal Type Associated Problems Recent Progress Patient-Stated? 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 RN documented as of this encounter Procedures Procedure Name Priority Date/Time Associated Diagnosis Comments LIPID PANEL REFLEX Routine 11/11/2018 2: 07 PM EST Rheumatoid arthritis involving multiple sites with positive rheumatoid factor (HCC) SEDIMENTATION RATE AUTOMATED Routine 11/11/2018 2:07 PM EST Rheumatoid arthritis involving multiple sites with positive rheumatoid factor (HCC) CBC WITH DIFF Routine 11/11/2018 2:07 PM EST Rheumatoid arthritis involving multiple sites with positive rheumatoid factor (HCC) C-REACTIVE PROTEIN Routine 11/11/2018 2: 07 PM EST Rheumatoid arthritis involving multiple sites with positive rheumatoid factor (HCC) COMPREHENSIVE METABOLIC PANEL Routine 11/11/2018 2:07 PM EST Rheumatoid arthritis involving multiple sites with positive rheumatoid factor (HCC) documented in this encounter Results * (ABNORMAL) COMPREHENSIVE METABOLIC PANEL (03/03/2019 4:49 PM EDT) Sodium 131(L) 136 - 145 mmol/L 03/03/2019 6:32 PM EDT [facility] Potassium 3.7 3.5 - 5.0 mmol/L 03/03/2019 6:32 PM [facility] Chloride 101 98 - 107 mmol/L 03/03/2019 6:32 PM [facility] Total CO2 24 22 - 29 mmol/L 03/03/2019 6:32 PM [facility] Anion Gap 6(L) 7 - 16 mmol/L 03/03/2019 6:32 PM [facility] Calcium 9.8 8.6 - 10.4 mg/dL 03/03/2019 6:32 PM [facility] Glucose Lvl 94 74 - 100 mg/dL 03/03/2019 6:32 PM [facility] BUN 8 6 - 20 mg/dL 03/03/2019 6:32 PM [facility] Creatinine 0.75 0.51 - 1.30 mg/dL 03/03/2019 6:32 PM [facility] Albumin 4.5 3.5 - 5.2 gm/dL 03/03/2019 6:32 PM [facility] Total Protein 6.7 6.4 - 8.3 gm/dL 03/03/2019 6:32 PM [facility] Bili Total 0.5 0.1 - 1.3 mg/dL 03/03/2019 6:32 PM [facility] ALT 16 <=41 IU/L 03/03/2019 6:32 PM [facility] AST 18 <=40 IU/L 03/03/2019 6:32 PM [facility] Alk Phos 81 36 - 123 IU/L 03/03/2019 6:32 PM [facility] GFR Afr Am 109 >=60 mL/min/1.7 3 m2 03/03/2019 6:32 PM EDT [facility] GFR Non Afr Am 95 >=60 mL/min/1.7 3 m2 03/03/2019 6:32 PM EDT [facility] Comment: This estimated GFR [...] 4:49 PM EDT 03/03/2019 4:49 PM EDT Jessica Cortes MD CHEMISTRY ORDERABLES Siobhan finnegan Result [facility] [address] [place], [place] [id number] * (ABNORMAL) CBC WITH DIFF (03/03/2019 4:49 [...] 03/03/2019 7:16 PM EDT [facility] RDW 13.4 <=14.9 % 03/03/2019 7:16 PM EDT [facility] Platelet 264 155 - 369 x10(3)/mcL 03/03/2019 7:16 PM EDT [facility] MPV 11.0 8.8 - 12.5 fL 03/03/2019 7:16 PM EDT [facility] Neut Percent 44.8 % 03/03/2019 7:16 PM EDT [facility] Comment:Neutrophils equals s egs plus bands Imm Gran% 0.5 % 03/03/2019 7:16 PM EDT [facility] Comment:Automated count of m etamyelocytes, myelocytes and promyelocytes. Lymph Percent 32.9 % 03/03/2019 7:16 PM EDT [facility] [place] Percent 8.0 % 03/03/2019 7:16 PM EDT [facility] Eos Percent 12.8 % 03/03/2019 7:16 PM EDT [facility] Baso Percent 1.0 % 03/03/2019 7:16 PM EDT [facility] Neut # 3.6 1.6 - 6.1 x10(3)/mcL 03/03/2019 7:16 PM EDT [facility] Comment:Neutrophils equals s egs plus bands IMMGRAN# 0.0 0.0 - 0.1 x10(3)/mcL 03/03/2019 7:16 PM EDT [facility] Comment:Automated count of m etamyelocytes, myelocytes and promyelocytes. An absolute IG <0.1 is reported as 0.0. Lymph # 2.7 1.2 - 3.9 x10(3)/mcL 03/03/2019 7:16 PM EDT [facility] [place] # 0.6 0.3 - 0.9 x10(3)/mcL 03/03/2019 7:16 PM EDT [facility] [place]# 1.0(H) 0.0 - 0.5 x10(3)/mcL 03/03/2019 7:16 PM EDT [facility] Baso # 0.1 0.0 - 0.1 x10(3)/mcL 03/03/2019 7:16 PM EDT [facility] [employer] [employer] Blood Venipuncture / Unknown 03/03/2019 4:49 PM EDT 03/03/2019 4:49 PM EDT us Jessica Cortes MD HEMATOLOGY ORDERABLES Fin al Result Performing Organization Address City/[facility]/ZIP Co de Phone Number [facility] [employer] [facility] [address] [facility] , [address] [place] [phone] * C-REACTIVE PROTEIN (03/03/2019 4:49 PM EDT) CRP <0.30 <=5.00 mg/L 03/04/2019 10:21 AM EDT [employer] Blood Venipuncture / Unknown 03/03/2019 4:49 PM EDT 03/03/2019 4:49 PM EDT us Jessica Cortes MD CHEMISTRY ORDERABLES Siobhan l Result Performing Organization Address [facility] Co de Phone Number [facility] [employer] [facility] [address] , [place] [address] * SEDIMENTATION RATE AUTOMATED (03/03/2019 4:49 PM EDT) Sed Rate 4 0 - 20 mm/hr 03/03/2019 7:44 PM EDT [facility] Blood Venipuncture / Unknown 03/03/2019 4:49 PM EDT 03/03/2019 4:49 PM EDT us Jessica Cortes MD HEMATOLOGY ORDERABLES Fin al Result Performing Organization Address City/[facility] Co de Phone Number [facility] [address] [place] [address] * COMPREHENSIVE METABOLIC PANEL (01/04/2019 10:50 AM EDT) Sodium 141 136 - 145 mmol/L 01/04/2019 3:25 PM EDT [facility] [employer] [facility] Potassium 4.2 3.5 - 5.0 mmol/L 01/04/2019 3:25 PM EDT [facility] Chloride 104 98 - 107 mmol/L 01/04/2019 3:25 PM EDT [facility] Total CO2 25 22 - 29 mmol/L 01/04/2019 3:25 PM EDT [facility] Anion Gap 12 7 - 16 mmol/L 01/04/2019 3:25 PM EDT [facility] Calcium 9.8 8.6 - 10.4 mg/dL 01/04/2019 3:25 PM EDT [facility] Glucose Lvl 91 74 - 100 mg/dL 01/04/2019 3:25 PM EDT [facility] BUN 8 6 - 20 mg/dL 01/04/2019 3:25 PM EDT [facility] Creatinine 0.78 0.51 - 1.30 mg/dL 01/04/2019 3:25 PM EDT [facility] Albumin 4.6 3.5 - 5.2 gm/dL 01/04/2019 3:25 PM EDT [facility] Total Protein 7.8 6.4 - 8.3 gm/dL 01/04/2019 3:25 PM EDT [facility] Bili Total 0.4 0.1 - 1.3 mg/dL 01/04/2019 3:25 PM EDT [facility] ALT 10 <=41 IU/L 01/04/2019 3:25 PM EDT [facility] AST 18 <=40 IU/L 01/04/2019 3:25 PM EDT [facility] Alk Phos 109 36 - 123 IU/L 01/04/2019 3:25 PM EDT [facility] GFR Afr Am 104 >=60 mL/min/1.7 3 m2 01/04/2019 3:25 PM EDT [facility] GFR Non Afr Am 90 >=60 mL/min/1.7 3 m2 01/04/2019 3:25 PM T [facility] Comment: This estimated GFR was [...] finnegan Result [facility] [address] [facility], [address] [place] [phone] [facility] [address] [place] [address] * (ABNORMAL) CBC WITH DIFF (01/04/2019 10:50 [...] 01/04/2019 3:00 PM EDT [facility] Neut Percent 53.7 % 01/04/2019 3:00 PM EDT [facility] Comment:Neutrophils equals s egs plus bands Imm Gran% 0.1 % 01/04/2019 3:00 PM EDT [facility] Comment:Automated count of m etamyelocytes, myelocytes and promyelocytes. Lymph Percent 30.3 % 01/04/2019 3:00 PM EDT [facility] [place] Percent 8.3 % 01/04/2019 3:00 PM EDT [facility] Eos Percent 6.6 % 01/04/2019 3:00 PM EDT [facility] Baso Percent 1.0 % 01/04/2019 3:00 PM EDT [facility] Neut # 4.5 1.6 - 6.1 x10(3)/[facility] 01/04/2019 3:00 PM EDT [facility] Comment:Neutrophils equals s egs plus bands IMMGRAN# 0.0 0.0 - 0.1 x10(3)/[facility] 01/04/2019 3:00 PM EDT [facility] Comment:Automated count of m etamyelocytes, myelocytes and promyelocytes. An absolute IG <0.1 is reported as 0.0. Lymph # 2.5 1.2 - 3.9 x10(3)/mcL 01/04/2019 3:00 PM EDT [facility] [place] # 0.7 0.3 - 0.9 x10(3)/[facility] 01/04/2019 3:00 PM EDT [facility] Eos# 0.6(H) 0.0 - 0.5 x10(3)/[facility] 01/04/2019 3:00 PM EDT [facility] Baso # 0.1 0.0 - 0.1 x10(3)/[facility] 01/04/2019 3:00 PM EDT [facility] Blood Venipuncture / Unknown 01/04/2019 10:50 AM EDT 01/04/2019 10:50 AM EDT us Jessica Cortes MD HEMATOLOGY ORDERABLES Fin al Result [facility] [employer] [facility] [address] , [place] [address] * (ABNORMAL) C-REACTIVE PROTEIN (01/04/2019 10:50 AM EDT) Pathologist [facility] CRP 9.51(H) <=5.00 mg/L 01/04/2019 3:25 PM EDT [facility] [employer] [facility] Blood Venipuncture / Unknown 01/04/2019 10:50 AM EDT 01/04/2019 10:50 AM EDT Jessica Cortes MD CHEMISTRY ORDERABLES Siobhan l Result Performing Organization Address [facility] Co de Phone Number [facility] [employer] [address] , [place] [address] * (ABNORMAL) SEDIMENTATION RATE AUTOMATED (01/04/2019 10:50 AM EDT) Pathologist [facility] Sed Rate 23(H) 0 - 20 mm/hr 01/04/2019 11:01 AM EDT [facility] Blood Venipuncture / Unknown 01/04/2019 10:50 AM EDT 01/04/2019 10:50 AM EDT us Jessica Cortes MD HEMATOLOGY ORDERABLES Fin al Result Performing Organization Address [facility] Co de Phone Number [facility] [address] [place], [place] [phone] * DX BONE DENSITY AXIAL SKELETON (12/18/2018 2:32 PM EDT) Anatomical Region Laterality Modality Dexa Scan 12/18/2018 Narrative 12/21/2018 9:46 AM EDT Indication: The patient is a post-menopausal female under age 65 with clinical risk factors for an osteoporotic fracture that requires a bone density assessment. Study was performed on [employer] APEX 5. Bone Density: Region ?BMD ? T-score [...] MD IMG DEXA ORDERABLES Final Result * XR CERVICAL SPINE AP LATERAL FLEXION EXTENSION (11/11/2018 2:37 PM EST) Anatomical Region Laterality Modality C-spine Radiographic [place] ging 11/11/2018 2:37 PM EST Impressions 11/11/2018 2:43 PM EST No acute bony abnormality of the cervical spine. No evidence of instability. Narrative 11/11/2018 2:43 PM EST AP, LATERAL C-SPINE WITH FLEX/EXT VIEWS, ??11/11/2018 2:37 PM CLINICAL HISTORY: ??[id number] COMPARISON: ??04/22/2016 PROCEDURE COMMENTS: AP and lateral views of the cervical spine with lateral flexion and extension views. FINDINGS: ?? No fracture or malalignment. Soft tissues unremarkable. Flexion and extension views show no evidence of instability. Mild discogenic spurring with disc space narrowing C5-C6, stable. Procedure Note Edwin Carey MD - 11/11/2018 AP, LATERAL C-SPINE WITH FLEX/EXT VIEWS, 11/11/2018 2:37 PM CLINICAL HISTORY: [id number] COMPARISON: 04/22/2016 PROCEDURE COMMENTS: AP and lateral views of the cervical spine withlateral flexion and extension views. FINDINGS: No fracture or malalignment. Soft tissues unremarkable. Flexion andextension views show no evidence of instability. Mild discogenic spurring with disc space narrowing C5-C6, stable. IMPRESSION: No acute bony abnormality of the cervical spine. No evidence of instability. Jessica [facility] OR DERABLES Final Result * (ABNORMAL) COMPREHENSIVE METABOLIC PANEL (11/11/2018 2:07 PM EST) Sodium 141 136 - 145 mmol/L 11/11/2018 8:22 PM EST [facility] Potassium 4.0 3.5 - 5.0 mmol/L 11/11/2018 8:22 PM EST [facility] Chloride 105 98 - 107 mmol/L 11/11/2018 8:22 PM EST [facility] Total CO2 26 22 - 29 mmol/L 11/11/2018 8:22 PM EST [facility] Anion Gap 10 7 - 16 mmol/L 11/11/2018 8:22 PM EST [facility] Calcium 10.0 8.6 - 10.2 mg/dL 11/11/2018 8:22 PM EST [facility] Glucose Lvl 89 74 - 100 mg/dL 11/11/2018 8:22 PM EST [facility] BUN 7 6 - 20 mg/dL 11/11/2018 8:22 PM EST [facility] Creatinine 0.75 0.51 - 1.30 mg/dL 11/11/2018 8:22 PM EST [facility] Albumin 4.5 3.5 - 5.2 gm/dL 11/11/2018 8:22 PM EST [facility] Total Protein 8.0 6.4 - 8.3 gm/dL 11/11/2018 8:22 PM EST [facility] Bili Total 0.3 0.1 - 1.3 mg/dL 11/11/2018 8:22 PM EST [facility] ALT 11 <=41 IU/L 11/11/2018 8:22 PM EST [facility] AST 20 <=40 IU/L 11/11/2018 8:22 PM EST [facility] Alk Phos 119(H) 35 - 104 IU/L 11/11/2018 8:22 PM EST [facility] GFR Afr Am 109 >=60 mL/min/1.7 3 m2 11/11/2018 8:22 PM EST [facility] GFR Non Afr Am 95 >=60 mL/min/1.7 3 m2 11/11/2018 8:22 PM EST [facility] Comment: This estimated GFR was [...] or muscle mass. Blood Venipuncture / Unknown 11/11/2018 2:07 PM EST 11/11/2018 2:07 PM EST us Jessica Cortes MD CHEMISTRY ORDERABLES Siobhan finnegan Result [facility] [address] [facility], [address] [place] [id number] [facility] [address] [place], [place] [id number] * (ABNORMAL) CBC WITH DIFF (11/11/2018 2:07 PM EST) WBC 8.1 3.7 - 10.3 x10(3)/mcL 11/11/2018 7:40 PM EST [facility] RBC 5.25(H) 3.90 - 5.20 x10(6)/mcL 11/11/2018 7:40 PM EST [facility] Hgb 15.1 11.2 - 15.7 g/dL 11/11/2018 7:40 PM EST [facility] Hct 46.2(H) 34.0 - 45.0 % 11/11/2018 7:40 PM EST [facility] MCV 88.0 79.0 - 98.0 fL 11/11/2018 7:40 PM EST [facility] MCH 28.8 26.0 - 32.0 pg 11/11/2018 7:40 PM EST [facility] MCHC 32.7 30.7 - 35.5 g/dL 11/11/2018 7:40 PM EST [facility] RDW 12.4 <=14.9 % 11/11/2018 7:40 PM EST [facility] Platelet 329 155 - 369 x10(3)/mcL 11/11/2018 7:40 PM EST [facility] MPV 10.9 8.8 - 12.5 fL 11/11/2018 7:40 PM EST [facility] Neut Percent 53.3 % 11/11/2018 7:40 PM EST [facility] Comment:Neutrophils equals s egs plus bands Imm Gran% 0.4 % 11/11/2018 7:40 PM EST [facility] Comment:Automated count of m etamyelocytes, myelocytes and promyelocytes. Lymph Percent 33.3 % 11/11/2018 7:40 PM EST [facility] [place] Percent 9.4 % 11/11/2018 7:40 PM EST [facility] Eos Percent 2.9 % 11/11/2018 7:40 PM EST [facility] Baso Percent 0.7 % 11/11/2018 7:40 PM EST [facility] Neut # 4.3 1.6 - 6.1 x10(3)/mcL 11/11/2018 7:40 PM EST [facility] Comment:Neutrophils equals s egs plus bands IMMGRAN# 0.0 0.0 - 0.1 x10(3)/mcL 11/11/2018 7:40 PM EST [facility] Comment:Automated count of m etamyelocytes, myelocytes and promyelocytes. An absolute IG <0.1 is reported as 0.0. Lymph # 2.7 1.2 - 3.9 x10(3)/mcL 11/11/2018 7:40 PM EST [facility] [place] # 0.8 0.3 - 0.9 x10(3)/[facility] 11/11/2018 7:40 PM EST [facility] Eos# 0.2 0.0 - 0.5 x10(3)/mcL 11/11/2018 7:40 PM EST [facility] Baso # 0.1 0.0 - 0.1 x10(3)/[facility] 11/11/2018 7:40 PM EST [facility] Blood Venipuncture / Unknown 11/11/2018 2:07 PM EST 11/11/2018 2:07 PM EST Jessica Cortes MD HEMATOLOGY ORDERABLES Fin al Result Performing Organization Address [facility] de Phone Number [employer] [address] [facility] , [place] [address] * C-REACTIVE PROTEIN (11/11/2018 2:07 PM EST) CRP 3.69 <=5.00 mg/L 11/11/2018 8:22 PM EST [email or web address] Blood Venipuncture / Unknown 11/11/2018 2:07 PM EST 11/11/2018 2:07 PM EST Jessica Cortes MD CHEMISTRY ORDERABLES Siobhan l Result Performing Organization Address [facility] de Phone Number [employer] [address] [facility] , [address] [place] [phone] * (ABNORMAL) SEDIMENTATION RATE AUTOMATED (11/11/2018 2:07 PM EST) Pathologist [facility] Sed Rate 21(H) 0 - 20 mm/hr 11/11/2018 8:08 PM EST [email or web address] Blood Venipuncture / Unknown 11/11/2018 2:07 PM EST 11/11/2018 2:07 PM EST Jessica Cortes MD HEMATOLOGY ORDERABLES Fin al Result Performing Organization Address [facility] de Phone Number [employer] [address] [facility] , [place] [address] * LIPID PANEL REFLEX (11/11/2018 2:07 PM EST) Cholesterol 163 <=200 mg/dL 11/11/2018 8:24 PM EST [email or web address] Comment: < 200 ?Desirable 200 - 239 ? Borderline High >= 240 ?High Triglyceride 107 <=150 mg/dL 11/11/2018 8:24 PM EST [employer] Comment: < 150 ? Normal 150 - 199 ?Borderline High 200 - 499 ?High ??>= 500 ? Very High HDL 49 >=40 mg/dL 11/11/2018 8:24 PM EST [email or web address] Comment: ??> 60 ?Optimal 40 - 60 ?Acceptable ?? < 40 ?Low LDL Calculated 93 <=100 mg/dL 11/11/2018 8:24 PM EST [email or web address] Non-HDL-C Calculated 114 <=129 mg/dL 11/11/2018 8:24 PM EST [facility] [employer] [place] Comment: <130 ?Desirable 130-159 Above Desirable 160-189 Borderline High 190-219 High >= 220 ??Very High Fasting Specimen? Yes None 019 8:24 PM EST [email or web address] Comment:gloria padilla this mo rning Blood VENOUS BLOOD / Unknown Venipuncture / Unknown 11/11/2018 2:07 PM EST 11/11/2018 2:07 PM EST Jessica Cortes MD CHEMISTRY ORDERABLES Siobhan sivan Result [email or web address] [address] [facility] , [place] [address] documented in this encounter Visit Diagnoses Diagnosis [...] drug monitoring Encounter for therapeutic drug monitoring Neck pain Cervicalgia Osteopenia of multiple sites documented in this encounter Discontinued Medications Medication Sig Discontinue Reason Start Date End Da te methotrexate 25 mg/mL Inj SolutionIndications:R heumatoid arthritis involving multiple sites with positive rheumatoid factor (HCC) Subcutaneous (Inject under the skin) 0.8 mL every 7 days. Reorder 08/10/2018 11/11/2018 abatacept (ORENCIA) 125 mg/mL SubQ SyringeIndications:Rh eumatoid arthritis involving multiple sites with positive rheumatoid factor (HCC) Subcutaneous (Inject under the skin) 125 mg once a week. Cancelled by 04/17/2018 11/11/2018 documented as of this encounter Care Teams Trim Technician Relationship Specialty Start Date End Date Julisa Kerr MD [address] [place] [address] PCP - General 02/22/11 Jessica Cortes MD [address] [place] [address] Internal Medicine-Rheumatology 04/26/16 documented as of this encounter
--- OUTSIDE RECORDS SUMMARY | 2024-08-22 21:52 | XMS_ITS | Encounter Summary ---
Author Organization [place] [address] Care Team Providers Care Transfer Table Operator Helper Name Role Phone Julisa Kerr MD Primary Care Provider [phone] Jessica Cortes MD Unavailable [phone] Reason for Visit * Reason Onset Date Comments Other 12/19/2017 Encounter Details Date Type Department Care Team (Late st Contact Info) Description 12/19/2017 Telephone [facility] [address] [place] [address] Julisa Kerr MD [address] [place] [address] Other Social History Tobacco Use Types Packs/Day [...] on file documented as of this encounter Miscellaneous Notes * Telephone Encounter - Jaqueline Joyce MA - 12/19/2017 1:48 PM EDT Spoke with patient and discussed OTC things she can try call for appointment if no improvement * Telephone Encounter - Alpa Lance R - 12/19/2017 1:09 PM EDT Pt states that she has not been able to keep anything down since Friday. She just feels awful, head hurting, very nauseated.. Is there anything we can call in? documented in this encounter Plan of Treatment Upcoming Encounters Date Type Department Care Team (Late st Contact Info) Description 08/31/2024 8:30 AM EST Appointment [address] [place] [address] 10/25/2024 10:45 AM EST Office Visit [facility] [address] [place] [address] Jessica Cortes MD [address] [facility] [address] [place] [address] 01/25/2025 9:00 AM EDT Appointment [address] [place] [address] 05/09/2025 11:00 AM EDT Appointment [address] [address] 05/09/2025 11:15 AM EDT Appointment [address] [place] [address] Susana Garay MD [address] [place] [address] [place] [address] documented as of this encounter Goals Goal Patient Goal Type Associated Problems Recent Progress Patient-Stated? 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, RN documented as of this encounter Visit Diagnoses Not on filedocumented in this encounter Care Teams Transfer Table Operator Helper Relationship Specialty Start Date End Date Julisa Kerr MD [address] [place] [id number] PCP - General 02/22/11 Jessica Cortes MD [address] [place] [id number] Internal Medicine-Rheumatology 04/26/16 documented as of this encounter
--- OUTSIDE RECORDS SUMMARY | 2024-08-22 21:52 | XMS_ITS | Encounter Summary ---
Author Organization [place] [address] Care Team Providers Care Lab Tester Name Role Phone Julisa Kerr MD Primary Care Provider [phone] Jessica Cortes MD Unavailable [phone] Reason for Visit * Reason Comments Follow-up 3 mth Rheumatoid Arthritis * Consultation (Routine) - Closed Specialty Diagnoses / Procedures Referred By Contac t Referred To Contact Internal Medicine-Rheumatology / Rheumatology Diagnoses Rheumatoid arthritis involving both hands with positive rheumatoid factor (HCC) Julisa Kerr MD Phone: tel: fax: Jessica Cortes MD [address] [address] Phone: tel: fax: Referral ID Status Reason Start Date Expiration Date V isits Requested Visits Authorized [id number] Closed Specialty Services Required 09/20/2015 09/19/2016 99 [phone] Encounter Details Date Type Department Care Team (Latest Contact Info) Description 07/29/2016 10:00 AM EDT Office Visit [facility] [address] [address] Jessica Cortes MD [address] [place] [phone] Rheumatoid arthritis involving multiple sites with positive rheumatoid factor (HCC) (Primary Dx); Positive BRET (antinuclear antibody); Raynaud's phenomenon without gangrene; Neck pain; Osteopenia; Therapeutic drug monitoring Social History Tobacco Use Types Packs/Day Years Used Date Smoking Tobacco: Never Smokeless Tobacco: Never Alcohol Use Standard Drinks/Week Comments No 0 (1 standard drink = 0.6 oz pur e alcohol) Sexually Active Control Partners Comments Yes Comments No Sex and Gender Information Value Date Recorded Sex Assigned at Not on file Legal Sex Female 5:21 PM EDT Gender Identity Not on file Sexual Orientation Not on file documented as of this encounter Last Filed Vital Signs Vital Sign Reading Time Taken Comments Blood Pressure 126/74 07/29/2016 10:12 AM EDT Pulse 102 07/29/2016 10:12 AM EDT Temperature - - Respiratory Rate 16 07/29/2016 10:12 AM EDT Oxygen Saturation - - Inhaled Oxygen Concentration - - Weight 63 kg (138 lb 12.8 oz) 07/29/2016 10:12 A M EDT Height 159 cm (5' 2.6 ) 07/29/2016 10:12 AM EDT Body Mass Index 24.9 07/29/2016 10:12 AM EDT documented in this encounter Ordered Prescriptions Prescription Sig Dispense Quantity Refills Last Filled Start Date End Date methotrexate 25 mg/mL Inj SolutionIndicatio ns:Rheumatoid arthritis involving multiple sites with positive rheumatoid factor (HCC) Subcutaneous (Inject under the skin) 0.6 mL every 7 days. 4 mL 1 07/29/2016 7 Insulin Syringe-Needle U-100 (BD INSULIN SYRINGE) 1 mL 25 gauge x 5/8 Misc SyringeIndication s:Rheumatoid arthritis involving multiple sites with positive rheumatoid factor (HCC) Use for MTX injection once a week 100 Syringe 1 07/29/2016 7 etanercept (ENBREL) 50 mg/mL (0.98 mL) SubQ SyringeIndication s:Rheumatoid arthritis involving multiple sites with positive rheumatoid factor (HCC) Subcutaneous (Inject under the skin) 0.98 mL once a week. 4 Syringe 2 07/29/2016 7 folic acid (FOLVITE) 1 mg Oral TabletIndications :Rheumatoid arthritis involving multiple sites with positive rheumatoid factor (HCC) Take 1 Tab by mouth daily. 30 Tab 5 07/29/2016 7 documented in this encounter Progress Notes * Jessica Cortes MD - 07/29/2016 10:00 AM EDT Subjective Subjective: Patient ID: Yuliet Newsome is a 45 y.o. female. Chief Complaint Patient presents with ??? Follow-up 3 mth ??? Rheumatoid Arthritis HPI The patient comes in for follow up regarding RA. Symptoms started in 2002. Seen by [employer] Operator, Dr. Astorga. She was seen in [facility] but have not seen her in 6 months. Dx with RA in 2002. Could not get up from bed, could not walk, could not raise the arms above the head. She had problems with the wrists, hands, feet. She has swelling of the joints and periodic flares. Treated initially with MTX 15 mg weekly, tolerates well, makes her alittle nauseous. She is not sure it works that well. She was treated with Humira x 6 months and it worked very well but she started breaking out in the rash- pimples, pustules and it was discontinued. Enbrel was added afterwards about 3 years ago. She tolerates it well and it seems to work well. She reported flares every 3 months while on treatment. More joint pain on one side or the other, joint swelling and pain, tender joints. In between the flares she has mild pain- 3/10, mild swelling. VECTRA DA obtained at the last visit came back at 20- low disease activity. She has been having a little bit of the flare. Neck bothers her, she feel like it is swollen. Most bothersome after prolonged rest. Used heating pad which helps. Knees and ankles bother her. Ankles feel weak, she feels like she will fall. Deneis swelling of theankles. Knees were very swollen the other day. She worked longer hours prior to the flare of the pain in the knees and ankles. Pain on a scale 0-10: 5-6/10 Type of pain: ache Morning stiffness; up to 2 hours Raynaud's not too bothersome, more in the cold weather. Current therapy: MTX 15 mg q week ( for the last 13 years), Enbrel 50 mg sq q week (for the last 3 years), prednisone taper as needed Previous therapy: Tylenol, Codeine, Darvocet, Motrin, Naproxen, Celebrex, Lodine did not help, MTX helped some, Review of Systems Constitutional: Positive for fatigue and fever. Weight gain- 22 pounds in the last year. HENT: Positive for congestion and trouble swallowing. Dry mouth Gastrointestinal: Positive for abdominal pain and constipation. Musculoskeletal: Positive for arthralgias, joint swelling, myalgias and neck pain. Skin: Positive for color change. Neurological: Positive for dizziness, weakness and headaches. Hematological: Bruises/bleeds easily. Psychiatric/Behavioral: Positive for sleep disturbance. Depression All other systems reviewed and are negative. Objective Objective: Vitals: 07/29/16 1012 BP: 126/74 Pulse: 102 Resp: 16 Weight: 138 lb 12.8 oz (63 kg) Height: 5' 2.6 (1.59 m) Body mass index is 24.9 kg/(m^2). Physical Exam Constitutional: She is oriented to person, place, and time. She appears well- developed and well-nourished. HENT: Head: Normocephalic and atraumatic. Eyes: Conjunctivae are normal. Pupils are equal, round, and reactive to light. Neck: Normal range of motion. Cardiovascular: Normal rate and normal heart sounds. No murmur heard. Pulmonary/Chest: Effort normal and breath sounds normal. No respiratory distress. She has no wheezes. Abdominal: Soft. Bowel sounds are normal. She exhibits no distension. There is no tenderness. Musculoskeletal: ROM of the neck painful. Tenderness to the spinal processes or paraspinal muscles. ROM of the shoulders intact. Crepitus in the right shoulder. Tenderness to both wrists, 2nd, 3rd MCP bilaterally. Synovitis in the wrists, more on the left, 2nd, 3rd right MCP. ROM of the knees, ankles intact, no effusion. Tenderness to the 1st right MTP and all of the MTP joints on the left. Neurological: She is alert and oriented to person, place, and time. No cranial nerve deficit. Muscle strength 5/5 upper and lower extremities. Skin: Skin is warm. No rash noted. Psychiatric: She has a normal mood and affect. Vitals reviewed. Rapid 3: 15.0 Lab Results Component Value Date WBC 7.4 04/22/2016 HGB 14.6 04/22/2016 HCT 43.9 04/22/2016 MCV 88.7 04/22/2016 PLT 289 04/22/2016 Chemistry Component Value Date/Time NA 142 04/22/2016 1502 K 3.8 04/22/2016 1502 CL 102 04/22/2016 1502 CO2 25 04/22/2016 1502 BUN 8 04/22/2016 1502 CREATININE 0.77 04/22/2016 1502 GLU 86 04/22/2016 1502 Component Value Date/Time CALCIUM 9.8 04/22/2016 1502 ALKPHOS 86 04/22/2016 1502 AST 17 04/22/2016 1502 ALT 10 04/22/2016 1502 Lab Results Component Value Date BRET + 1:640 (A) 04/22/2016 Lab Results Component Value Date SSAABIGGREF 21 04/22/2016 Lab Results Component Value Date SSBABIGGREF 0 04/22/2016 Lab Results Component Value Date SMITHABIGGAR 1 04/22/2016 Lab Results Component Value Date RNPABIGGREF 1 04/22/2016 Lab Results Component Value Date C3 125 04/22/2016 C4 31 04/22/2016 Lab Results Component Value Date CCPABIGG 4.1 04/22/2016 Lab Results Component Value Date RFQUANT 42 (H) 04/22/2016 Lab Results Component Value Date HEPCAB Negative 04/22/2016 Lab Results Component Value Date HEPBSAG Negative 04/22/2016 Lab Results Component Value Date HEPBIGM Negative 04/22/2016 Lab Results Component Value Date BILIRUBINUR - 12/02/2013 KETONESU - 12/02/2013 PHUR 5 12/02/2013 UROBILINOGEN - 12/02/2013 NITRITE - 12/02/2013 LEUKOCYTESUR trace 12/02/2013 SPECGRAV 1.005 12/02/2013 XR CERVICAL SPINE AP LATERAL FLEXION EXTENSION 4 views 04/22/2016 4:36 PM History: 45 years .Female. [id number]. ?? IMPRESSION: Preserved vertebral body height and disc space throughout lumbar spine. Minor degenerative changes involving endplates with small dorsal spondylitic spurs at C5-C6 and C6-C7. No subluxation of flexion or extension. Bone Density: 05/03/16 Region BMD T-score Z-score AP Spine (L1-L4) 0.825 -2.0 -1.5 Femoral Neck (Left) 0.611 -2.1 -1.7 Total Hip (Left) 0.723 -1.8 -1.5 Femoral Neck (Right) 0.601 -2.2 -1.8 Total Hip (Right) 0.718 -1.8 -1.5 Assessment and Plan: Yuliet was seen today for follow-up and rheumatoid arthritis. Diagnoses and all orders for this visit: Rheumatoid arthritis involving multiple sites, unspecified rheumatoid factor presence (HCC) Dx in [address] Astorga in [facility] Records from [facility] received and reviewed. The patient was seen in 05/11/13 for initial evaluation. Presented with polyarticular joint involvement- large and small joints- shoulders, elbows, knees, wrists, knuckles, toes. Per records she had low titer RF, negative CCP, (+) BRET centromere pattern > 8.0 with negative SSA/SSB, TAPE DUPLICATOR, Scl 70, dsDNA Records indicate she used to see / Nathaniel but was lost to f/u due to los of insurance Records also indicate she failed Humira ( side effects- rash) and Remicade ( did not respond to treatment). On MTX and Enbrel since 04/2013. X rays of both feet 05/18/2013 revealed minimal degenerative changes of both feet X rasd of the hands 05/18/2013 revealed degenerative changes , diffuse in the radiocarpal, first carpometacarpal joints metacarpophalangeal joints and interphalangeal joints. Diffuse osteopenia was noted. Impression was possible inflammatory arthropathy and possible old fractures of the right radiusand ulna due to abnormal morphology. Recurrent flares of joint pain, swelling even while on treatment. AT this point mild synovitis in the wrists and 2nd, 3rd MCP on right. MTX 15 mg weekly ( since 2012) , will change to injectable for better efficacy, may increase the dose further Enbrel 50 mg sq q week ( since 1022) Last Vectra DA 20 - low disease activity X rays revealed erosive changes of the left ulnar styloid, periarticular osteopenia of the left wrist and degenerative changes in both wrists and interphalangeal joints. X rays of the feet were normal. Orders: - folic acid (FOLVITE) 1 mg Oral Tablet; Take 1 Tab by mouth daily. - etanercept (ENBREL) 50 mg/mL (0.98 mL) SubQ Syringe; Subcutaneous (Inject under the skin) 0.98 mLonce a week. - Insulin Syringe-Needle U-100 (BD INSULIN SYRINGE) 1 mL 25 gauge x 5/8 Misc Syringe; Use for MTX injection once a week - methotrexate 25 mg/mL Inj Solution; Subcutaneous (Inject under the skin) 0.6 mL every 7 days. Positive BRET (antinuclear antibody) 1:640, centromere pattern Raynaud's phenomenon without gangrene No history of digital ulcerations No other symptoms to suggest CTD Neck pain Patients with active RA are at risk for atlantoaxial disease and translocation of the dens x rays revealed mild degenerative changes, no evidence of atlanto axial disease Exercises discussed with patient, info given Osteoporosis Screening Surgical menopause in 2000 Hx of RA, frequent prednisone use Bone density ( 05/03/16) T score -2.2 at the right femoral neck FRAX score - risk for fracture is low. Vitamin D daily Weight bearing exercises regularly At this point no other treatment is needed Therapeutic drug monitoring Last PPD 08/2015 Labs today and every 6-8 weeks while on MTX Return in about 3 months (around 10/29/2016). documented in this encounter Plan of Treatment Upcoming Encounters Date Type Department Care Team (Late st Contact Info) Description 08/31/2024 8:30 AM EST Appointment [address] [place] [id number] 10/25/2024 10:45 AM EST Office Visit [facility] [address] [facility] [address] [place] [address] Jessica Cortes MD [address] [facility] [address] [place] [address] 01/25/2025 9:00 AM EDT Appointment [place] [address] [place] [address] 05/09/2025 11:00 AM EDT Appointment [address] [place] [address] 05/09/2025 11:15 AM EDT [address]ment [address] [place] [address] Susana Garay MD [address] [place] [address] [address] [phone] documented as of this encounter Visit Diagnoses Diagnosis 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 Positive BRET (antinuclear antibody) Other and unspecified nonspecific immunological findings Raynaud's phenomenon without gangrene Neck pain Cervicalgia Osteopenia Disorder of bone and cartilage, unspecified Therapeutic drug monitoring Encounter for therapeutic drug monitoring documented in this encounter Discontinued Medications Medication Sig Discontinue Reason Start Date End Da te folic acid (FOLVITE) 1 mg Oral TabletIndications:Rhe umatoid arthritis involving multiple sites with positive rheumatoid factor (HCC) Take 1 Tab by mouth daily. Reorder 04/26/2016 07/29/2016 etanercept (ENBREL) 50 mg/mL (0.98 mL) SubQ SyringeIndications:Rh eumatoid arthritis involving multiple sites with positive rheumatoid factor (HCC) Subcutaneous (Inject under the skin) 0.98 mL once a week. Reorder 04/26/2016 07/29/2016 documented as of this encounter Care Teams Lab Tester Relationship Specialty Start Date End Date Julisa Kerr MD [address] [id number] PCP - General 02/22/11 Jessica Cortes MD [address] [facility] Building [address] [place] [address] Internal Medicine-Rheumatology 04/26/16 documented as of this encounter
--- OUTSIDE RECORDS SUMMARY | 2024-08-22 21:52 | XMS_ITS | Encounter Summary ---
Author Organization [place] [address] Care Team Providers Care Tellers Supervisor Name Role Phone Julisa Kerr MD Primary Care Provider [phone] Jessica Cortes MD Unavailable [phone] Reason for Visit * Reason Comments Follow-up 3 mth Rheumatoid Arthritis * Consultation (Routine) - Closed Specialty Diagnoses / Procedures Referred By Contciarra t Referred To Contact Internal Medicine-Rheumatology / Rheumatology Diagnoses RA (rheumatoid arthritis) (HCC) f/u 3 mo RA Procedures FOLLOW UP Julisa Kerr MD Phone: tel: fax: Jessica Cortes MD [address] [address] Phone: tel: fax: Referral ID Status Reason Start Date Expiration Date Visits Re quested Visits Authorized [id number] Closed 11/04/2016 11/04/2017 99 99 Encounter Details Date Type Department Care Team (Latest Contact Info) Description 03/17/2017 8:00 AM EDT Office Visit [facility] [address] [address] Jessica Cortes MD [address] [place] [phone] Rheumatoid arthritis involving multiple sites with positive rheumatoid factor (HCC) (Primary Dx); Positive BRET (antinuclear antibody); Neck pain; Raynaud's phenomenon without gangrene; Osteopenia of multiple sites; Therapeutic drug monitoring; Immunocompromised patient (HCC); Encounter for immunization Social History Tobacco Use Types Packs/Day Years [...] Sign Reading Time Taken Comments Blood Pressure 110/60 03/17/2017 8:03 AM EDT Pulse 81 03/17/2017 8:03 AM EDT Temperature - - Respiratory Rate 16 03/17/2017 8:03 AM EDT Oxygen Saturation - - Inhaled Oxygen Concentration - - Weight 61.5 kg (135 lb 9.6 oz) 03/17/2017 8:03 A M EDT Height 158.8 cm (5' 2.5 ) 03/17/2017 8:03 AM EDT Body Mass Index 24.41 03/17/2017 8:03 AM EDT documented in this encounter Ordered Prescriptions Prescription Sig Dispense Quantity Refills Last Filled Start Date End Date Insulin Syringe-Needle U-100 (BD INSULIN SYRINGE) 1 mL 25 gauge x 5/8 Misc SyringeIndication s:Rheumatoid arthritis involving multiple sites with positive rheumatoid factor (HCC) Use for MTX injection once a week 100 Syringe 1 03/17/2017 7 methotrexate 25 mg/mL Inj SolutionIndicatio ns:Rheumatoid arthritis involving multiple sites with positive rheumatoid factor (HCC) Subcutaneous (Inject under the skin) 0.6 mL every 7 days. 4 mL 1 03/17/2017 7 etanercept (ENBREL) 50 mg/mL (0.98 mL) SubQ SyringeIndication s:Rheumatoid arthritis involving multiple sites with positive rheumatoid factor (HCC) Subcutaneous (Inject under the skin) 0.98 mL once a week. 4 Syringe 2 03/17/2017 7 documented in this encounter Progress Notes * Jessica Cortes MD - 03/17/2017 8:00 AM EDT Subjective Subjective: Patient ID: Yuliet Newsome is a 46 y.o. female. Chief Complaint Patient presents with ??? Follow-up 3 mth ??? Rheumatoid Arthritis HPI The patient comes in for follow up regarding RA. Symptoms started in 2002. Seen by Loss Prevention Coordinator, Dr. Astorga. She was seen in [facility] but have not seen her in [...] pain- 3/10, mild swelling. VECTRA DA obtained in 03/2016 came back at 20- low disease activity. Hands and wrist have been flaring up, bother her a lot. She states she has been on MTX for the last 3 months although last script was sent only for 2 months. Enbrel restarted a week ago after PPD. Joint pain: hands, wrists, knees and feet. Hands bother her more after work. Knee bother her with stairs and standing. Pain on a scale 0-10: 6- 8/10 Type of pain: ache Morning stiffness:1 hour. Numbness and tingling in the hands on the morning. Raynaud's: worsened in the cold weather. Current therapy: MTX 15 mg q week ( for the last 13 years), last script for 2 months sent 07/29/16,Enbrel 50 mg sq q week (for the last 3 years), last script for 3 months sent 07/29/16, prednisone taper as needed Previous therapy: Tylenol, Codeine, Darvocet, Motrin, Naproxen, Celebrex, Lodine did not help, MTX helped some, Review of Systems Constitutional: Weight gain- 22 pounds in the last year. HENT: Positive for mouth sores. Dry mouth Musculoskeletal: Positive for arthralgias and joint swelling. Skin: Positive for color change. Neurological: Positive for dizziness and numbness. Hematological: Bruises/bleeds easily. Psychiatric/Behavioral: Positive for sleep disturbance. The patient is nervous/anxious. Depression All other systems reviewed and are negative. Objective Objective: Vitals: 03/17/17 0803 BP: 110/60 Pulse: 81 Resp: 16 Weight: 135 lb 9.6 oz (61.5 kg) Height: 5' 2.5 (1.588 m) Body mass index is 24.41 kg/(m^2). Physical Exam Constitutional: She is oriented to person, place, and time. She appears well- developed and well-nourished. HENT: Head: Normocephalic and atraumatic. Eyes: Conjunctivae are normal. Pupils are equal, round, and reactive to light. Neck: Normal range of motion. Musculoskeletal: Tenderness to the spinal processes of the whole spine. Tenderness to the trapezius muscles. Crepitus in the right shoulder. Tenderness to both wrists, 2nd, 3rd MCP bilaterally, 1st MCP on left, 4th MCP on right. Synovitis in the wrists, 2nd, 3rd MCP on right and 1st MCP on left. ROM of the knees, ankles intact, no effusion. Tenderness to the MTP joints bilaterally. Neurological: She is alert and oriented to person, place, and time. No cranial nerve deficit. Muscle strength 5/5 upper and lower extremities. Skin: Skin is warm. No rash noted. Psychiatric: She has a normal mood and affect. Vitals reviewed. Rapid 3: 15.2 Lab Results Component Value Date WBC 9.0 12/13/2016 HGB 13.6 12/13/2016 HCT 41.3 12/13/2016 MCV 89.8 12/13/2016 PLT 270 12/13/2016 Chemistry Component Value Date/Time NA 140 12/13/2016 1537 K 3.7 12/13/2016 1537 CL 100 12/13/2016 1537 CO2 27 12/13/2016 1537 BUN 13 12/13/2016 1537 CREATININE 0.75 12/13/2016 1537 GLU 78 12/13/2016 1537 Component Value Date/Time CALCIUM 9.6 12/13/2016 1537 ALKPHOS 97 12/13/2016 1537 AST 17 12/13/2016 1537 ALT 8 12/13/2016 1537 Lab Results Component Value Date CRP 2.60 12/13/2016 Lab Results Component Value Date SEDRATE 14 12/13/2016 Assessment and Plan: Yuliet was seen today for follow-up and rheumatoid arthritis. Diagnoses and all orders for this visit: Rheumatoid arthritis involving multiple sites, unspecified rheumatoid factor presence (HCC) Dx in [address] Astorga in [facility] Records from [facility] received and reviewed. The patient was seen in 05/11/13 for initial evaluation. Presented with polyarticular joint involvement- large and small joints- shoulders, elbows, knees, wrists, knuckles, toes. Per records she had low titer RF, negative CCP, (+) BRET centromere pattern > 8.0 with negative SSA/SSB, SALES OFFICER, Scl 70, dsDNA Records indicate she used [...] low disease activity, while on Enbrel and mTX Recurrent flares of joint pain, swelling Today she has synovitis in the wrists and 2nd, 3rd MCP on right as well as 1st MCP on left. MTX 15 mg weekly ( since 2012), changed to injectable in 06/2016 for better efficacy, worked betterbut she run out 3 months ago ( 09/2016). Restarted 11/2016. Enbrel 50 mg sq q week ( since 2012), run out 09/2016. Restarted 1 week ago 03/10/17 after PPD done and negative. Monitor symptoms , if needed will change therapy - etanercept (ENBREL) 50 mg/mL (0.98 mL) SubQ Syringe; Subcutaneous (Inject under the skin) 0.98 mLonce a week. - methotrexate 25 mg/mL Inj Solution; Subcutaneous (Inject under the skin) 0.6 mL every 7 days. - Insulin Syringe-Needle U-100 (BD INSULIN SYRINGE) 1 mL 25 gauge x 5/8 Misc Syringe; Use for MTX injection once a week - Pneumococcal polysaccharide vaccine 23-valent greater than or equal to 2yo subcutaneous/IM Positive BRET (antinuclear antibody) 1:640, centromere pattern Raynaud's phenomenon without gangrene No history of digital ulcerations No other symptoms to suggest CTD Neck pain Patients with active RA are at risk for atlantoaxial disease and translocation of the dens x rays revealed mild degenerative changes, no evidence of atlanto axial disease She has a lot of myofascial pain at this point Regular stretches, heat, ice, massage Osteopenia of multiple sites Surgical menopause in 2000 Hx of RA, frequent prednisone use Bone density ( 05/03/16) T score -2.2 at the right femoral neck FRAX score - risk for fracture is low. Vitamin D daily Weight bearing exercises regularly At this point no other treatment needed Therapeutic drug monitoring Last PPD 08/2015, overdue for one, she will have it done at PCP office PPD negative 03/10/17 Labs today and every 6-8 weeks while on MTX Immunocompromised patient (HCC) Due to immunosuppression Prevnar 13 given 12/13/16 Pneumovax 23 today - Pneumococcal polysaccharide vaccine 23-valent greater than or equal to 2yo subcutaneous/IM Encounter for immunization - Pneumococcal polysaccharide vaccine 23-valent greater than or equal to 2yo subcutaneous/IM Return in about 3 months (around 06/17/2017). documented in this encounter Plan of Treatment Upcoming Encounters Date Type Department Care Team (Late st Contact Info) Description 08/31/2024 8:30 AM EST Appointment [place] [address] [place] [address] 10/25/2024 10:45 AM EST Office Visit [facility] [address] [place] [address] Jessica Cortes MD [address] [facility] [address] [place] [address] 01/25/2025 9:00 AM EDT Appointment [place] [address] [place] [address] 05/09/2025 11:00 AM EDT Appointment [place] [address] [place] [address] 05/09/2025 11:15 AM EDT Appointment [place] [address] [place] [address] Susana Garay MD [address] [place] [address] [place] [address] documented as of this encounter Goals Goal [...] unspecified nonspecific immunological findings Neck pain Cervicalgia Raynaud's phenomenon without gangrene Osteopenia of multiple sites Therapeutic drug monitoring Encounter for therapeutic drug monitoring Immunocompromised patient (HCC) Unspecified immunity deficiency Encounter for immunization Need for other specified prophylactic vaccination against single bacterial disease documented in this encounter Discontinued Medications Medication Sig Discontinue Reason Start Date End Da te etanercept (ENBREL) 50 mg/mL (0.98 mL) SubQ SyringeIndications:Rh eumatoid arthritis involving multiple sites with positive rheumatoid factor (HCC) Subcutaneous (Inject under the skin) 0.98 mL once a week. Reorder 07/29/2016 03/17/2017 methotrexate 25 mg/mL Inj SolutionIndications:R heumatoid arthritis involving multiple sites with positive rheumatoid factor (HCC) Subcutaneous (Inject under the skin) 0.6 mL every 7 days. Reorder 12/13/2016 03/17/2017 Insulin Syringe-Needle U-100 (BD INSULIN SYRINGE) 1 mL 25 gauge x 5/8 Misc SyringeIndications:Rh eumatoid arthritis involving multiple sites with positive rheumatoid factor (HCC) Use for MTX injection once a week Reorder 07/29/2016 03/17/2017 documented as of this encounter Orders Immunization/Injection Count Last Ordered Date First Ordered Date PNEUMOCOCCAL POLYSACCHARIDE VACCINE 23-VALENT =>2YO SQ/IM 1 03/17/2017 documented in this encounter Care Teams Tellers Supervisor Relationship Specialty Start Date End Date Julisa Kerr MD [address] [place] [address] PCP - General 02/22/11 Jessica Cortes MD [address] [place] [address] Internal Medicine-Rheumatology 04/26/16 documented as of this encounter
--- OUTSIDE RECORDS SUMMARY | 2024-08-22 21:52 | XMS_ITS | Encounter Summary ---
Author Organization [place] [address] Care Team Providers Care Harness Maker Name Role Phone Julisa Kerr MD Primary Care Provider [phone] Jessica Cortes MD Unavailable [phone] Reason for Referral * DEXA (Routine) - Closed Specialty Diagnoses / Procedures Referred By Contac t Referred To Contact Radiology Diagnoses Osteoporosis Procedures DX BONE DENSITY AXIAL SKELETON Jessica Cortes MD [address] [place] [address] Phone: tel: fax: [facility] DEXA [address] [place] [address] Phone: tel: Referral ID Status Reason Start Date Expiration Date Visits Re quested Visits Authorized [id number] Closed 04/22/2016 04/22/2017 1 1 Reason for Visit * DEXA (Routine) - Closed Specialty Diagnoses / Procedures Referred By Contac t Referred To Contact Radiology Diagnoses Osteoporosis Procedures DX BONE DENSITY AXIAL SKELETON Jessica Cortes MD [address] [place] [address] Phone: tel: fax: [facility] DEXA [address] [place] [address] Phone: tel: Referral ID Status Reason Start Date Expiration Date Visits Re quested Visits Authorized [id number] Closed 04/22/2016 04/22/2017 1 1 Encounter Details Date Type Department Care Team (Latest Contact Info) Description 05/03/2016 2:50 PM EDT - 05/03/2016 11:59 PM EDT Hospital Encounter [place] [address] [place] [address] Jessica Cortes MD [address] [facility] [address] [place] [address] Osteoporosis Discharge Disposition: Home or Self Care Social [...] on file documented as of this encounter Discharge Disposition Disposition Code Departure Means Destination Home or Self Care documented in this encounter Plan of Treatment Upcoming Encounters Date Type Department Care Team (Late st Contact Info) Description 08/31/2024 8:30 AM EST Appointment [place] [address] [place] [address] 10/25/2024 10:45 AM EST Office Visit [facility] [address] [place] [address] Jessica Cortes MD [address] [facility] [address] [place] [address] 01/25/2025 9:00 AM EDT Appointment [place] [address] [place] [address] 05/09/2025 11:00 AM EDT Appointment [facility] [place] [address] [place] [address] 05/09/2025 11:15 AM EDT Appointment [facility] [place] [address] [address] [place] [address] Susana Garay MD [address] [place], [place] [address] documented as of this encounter Procedures Procedure Name Priority Date/Time Associated Diagnosis Comments DX BONE DENSITY AXIAL SKELETON Routine 05/03/2016 3:27 PM EDT Osteoporosis documented in this encounter Results * DX BONE DENSITY AXIAL SKELETON (05/03/2016 3:27 PM EDT) Anatomical Region Laterality Modality Dexa Scan 05/03/2016 Narrative 05/06/2016 8:52 AM EDT Indication: The patient is a post-menopausal female under age 65 with clinical risk factors for an osteoporotic fracture that requires a bone density assessment. Study was performed on [employer]. Bone Density: Region ?BMD ? T-score ? Z- score ?? AP Spine (L1-L4) ?0.825 ?-2.0 ?-1.5 ? Femoral Neck (Left) ? 0.611 ?-2.1 ?-1.7 ? Total Hip (Left) ?0.723 ?-1.8 ?-1.5 ? Femoral Neck (Right) ?0.601 ?-2.2 ?-1.8 ? Total Hip (Right) ? 0.718 ?-1.8 ?-1.5 ? World Health Organization criteria for [...] 50. 10-year Fracture Risk(1): Major Osteoporotic Fracture ?8.6% Hip Fracture ? 1.9% Reported Risk Factors: [place] (), Neck BMD=0.601, BMI=24.1, glucocorticoids, rheumatoid arthritis (1) FRAX(R) Version 3.08. Fracture probability calculated for an untreated patient. Fracture probability may be lower if the patient has received treatment. Clinical Information Provided by Patient: Has taken Glucocorticoids Has rheumatoid arthritis Has the following medical conditions: Asthma, Emphysema, or COPD Patient maximum height was 62.5 Menopause Age: 30 ??postmenopausal Interpretation: Bone mineral density is in the low bone density range. Medical evaluation for secondary causes of low bone mineral density may be appropriate. A minimum of two years may be required between bone density studies due to inherent testing precision limitations. Intervals between BMD testing should be determined according to each patient's clinical status: typically one year after initiation or change in therapy is appropriate, with longer intervals once therapeutic effect is established. Reported by: Rivka Mckenna PA-C,CCD on 05/03/2016 4:04:00 PM. Jessica Cortes MD IMG DEXA ORDERABLES Final Result documented in this encounter Visit Diagnoses Diagnosis Osteoporosis Osteoporosis, unspecified documented in this encounter Care Teams Harness Maker Relationship Specialty Start Date End Date Julisa Kerr MD [address] [place] [id number] PCP - General 02/22/11 Jessica Cortes MD [address] [place] [address] Internal Medicine-Rheumatology 04/26/16 documented as of this encounter
--- OUTSIDE RECORDS SUMMARY | 2024-08-22 21:52 | XMS_ITS | Encounter Summary ---
Author Organization [place] [address] Care Team Providers Care Drum Sprayer Name Role Phone Julisa Kerr MD Primary Care Provider [phone] Jessica Cortes MD Unavailable [phone] Reason for Visit * Reason Comments Sinusitis Encounter Details Date Type Department Care Team (Late st Contact Info) Description 06/26/2016 2:30 PM EDT [facility] [address] [place] [address] Emily Hodges, WET WHEELER [address] [facility] [place] [address] Acute bacterial sinusitis (Primary Dx); Insomnia, unspecified type; Flu vaccine need Social History Tobacco Use Types Packs/Day Years [...] Sign Reading Time Taken Comments Blood Pressure 128/76 06/26/2016 1:49 PM EDT Pulse - - Temperature 36.8 ??C (98.3 ??F) 06/26/2016 1:49 PM ED T Respiratory Rate - - Oxygen Saturation - - Inhaled Oxygen Concentration - - Weight 62.6 kg (138 lb) 06/26/2016 1:49 PM EDT Height 159 cm (5' 2.6 ) 06/26/2016 1:49 PM EDT Body Mass Index 24.76 06/26/2016 1:49 PM EDT documented in this encounter Ordered Prescriptions Prescription Sig Dispense Quantity Refills Last Filled Start Date End Date flu vaccine qs 2015-17,36mos+,,PF , (FLUZONE/FLUARIX QUAD) 60 mcg (15 mcg x 4)/0.5 mL IM SyringeIndications :Flu vaccine need Inject 0.5 mL into the muscle Once (Vaccine) for 1 dose. 0.5 mL 06/26/2016 06/26/2016 doxycycline (MONODOX) 100 mg Oral CapsuleIndications :Acute bacterial sinusitis Take 1 Cap by mouth 2 times daily for 7 days. 14 Cap 06/26/2016 07/03/2016 amitriptyline (ELAVIL) 25 mg Oral TabletIndications: Insomnia, unspecified type Take 1 Tab by mouth nightly. 30 Tab 2 06/26/2016 01/05/2018 fluticasone (FLONASE) 50 mcg/actuation Nasl Red Level, SuspensionIndicati ons:Acute bacterial sinusitis 1 Red Level by Nasal route daily. 1 Bottle 2 06/26/2016 02/12/2022 flu vac qs 2016,4 yr up,CD,PF, 60 mcg (15 mcg x 4)/0.5 mL IM SyringeIndications :Flu vaccine need Inject 0.5 mL into the muscle once for 1 dose. 0.5 mL 06/26/2016 06/26/2016 documented in this encounter Progress Notes * Emily Hodges, JOSE - 06/26/2016 2:30 PM EDT Subjective Subjective: Patient ID: Yuliet Newsome is a 45 y.o. female. Chief Complaint Patient presents with ??? Sinusitis Sinusitis This is a new problem. The current episode started in the past 7 days. The problem is unchanged. Associated symptoms include congestion and coughing (occasionally productive with yellow mucous). Pertinent negatives include no chills, ear pain (has resolved), shortness of breath, sinus pressure, sneezing or sore throat. Past treatments include oral decongestants. The treatment provided no relief. Pt has tried Mucinex with little relief. Patients past medical, family and social histories were reviewed and updated. There were no changesexcept as noted. Review of Systems Constitutional: Positive for unexpected weight change (weight gain). Negative for chills, fatigue and fever. HENT: Positive for congestion and postnasal drip (has improved). Negative for ear discharge, ear pain (has resolved), nosebleeds, rhinorrhea, sinus pressure, sneezing and sore throat. Eyes: Negative. Respiratory: Positive for cough (occasionally productive with yellow mucous). Negative for shortness of breath and wheezing. Cardiovascular: Negative. Negative for chest pain and palpitations. Gastrointestinal: Negative. Negative for abdominal pain, diarrhea, nausea and vomiting. Endocrine: Negative. Genitourinary: Negative. Musculoskeletal: Negative. Skin: Negative. Negative for color change and rash. Allergic/Immunologic: Negative. Neurological: Negative. Hematological: Negative. Psychiatric/Behavioral: Positive for sleep disturbance (difficulty falling asleep and staying asleep. ). Negative for agitation. The patient is nervous/anxious (pt is concerned about her son). Objective Objective: Vitals: 06/26/16 1349 BP: 128/76 Temp: 98.3 ??F (36.8 ??C) TempSrc: Tympanic Weight: 138 lb (62.6 kg) Height: 5' 2.6 (1.59 m) Body mass index is 24.76 kg/(m^2). Physical Exam Constitutional: She is oriented to person, place, and time. She appears well- developed and well-nourished. No distress. HENT: Head: Normocephalic and atraumatic. Right Ear: Hearing, tympanic membrane, external ear and ear canal normal. Left Ear: Hearing, tympanic membrane, external ear and ear canal normal. Nose: Nose normal. Mouth/Throat: Uvula is midline, oropharynx is clear and moist and mucous membranes are normal. PND noted, fluid noted behind bilateral TMs Eyes: Conjunctivae are normal. No scleral icterus. Neck: Normal range of motion. Neck supple. Cardiovascular: Regular rhythm and normal heart sounds. Exam reveals no gallop and no friction rub. No murmur heard. Pulmonary/Chest: Effort normal and breath sounds normal. No respiratory distress. Abdominal: Soft. She exhibits no distension. There is no tenderness. Neurological: She is alert and oriented to person, place, and time. Skin: Skin is warm and dry. Psychiatric: She has a normal mood and affect. Her speech is normal and behavior is normal. Judgment and thought content normal. Cognition and memory are normal. Assessment and Plan: Yuliet was seen today for sinusitis. Diagnoses and all orders for this visit: Acute bacterial sinusitis Orders: - fluticasone (FLONASE) 50 mcg/actuation Nasl Red Level, Suspension; 1 Red Level by Nasal route daily. - doxycycline (MONODOX) 100 mg Oral Capsule; Take 1 Cap by mouth 2 times daily for 7 days. Insomnia, unspecified type Orders: - amitriptyline (ELAVIL) 25 mg Oral Tablet; Take 1 Tab by mouth nightly. Flu vaccine need Orders: - flu vac qs 2016,4 yr up,CD,PF, 60 mcg (15 mcg x 4)/0.5 mL IM Syringe; Inject 0.5 mL into the muscle once for 1 dose. - flu vaccine qs 2015-17,36mos+,,PF, (FLUZONE/FLUARIX QUAD) 60 mcg (15 mcg x 4)/0.5 mL IM Syringe; Inject 0.5 mL into the muscle Once (Vaccine) for 1 dose. patient was educated regarding the diagnosis, medications/treatment, goals, self-management tools and instructions based on their care plan. They verbalized full understanding of the education given on the After Visit Summary [AVS] for today's visit. They received a copy of the AVS in writing. A new medicine was prescribed during this office visit. I educated patient about the reason for prescribing this new medication. I educated them of possible side effects, but also encouraged them to read the medication insert that will accompany their prescription and encouraged them to discuss anyquestions about the insert with their pharmacist. I also instructed to call if they experienced anyside effects or possible allergic reaction after taking the medication. I discussed the risk of stopping the medication or deviating from prescribing instructions. Dosing instructions are present on the AVS. I inquired to see if there were any questions and answered them accordingly. patient verbalized full understanding of the new medication education given at today???s visit. Return if symptoms worsen or fail to improve, for or follow up with primary care provider. documented in this encounter Plan of Treatment Upcoming Encounters Date Type Department Care Team (Late st Contact Info) Description 08/31/2024 8:30 AM EST Appointment [address] [place] [address] 10/25/2024 10:45 AM EST Office Visit [facility] [address] [place] [address] Jessica Cortes MD [address] [facility] Building [address] [place] [address] 01/25/2025 9:00 AM EDT Appointment [address] [address] 05/09/2025 11:00 AM EDT Appointment [address] [address] 05/09/2025 11:15 AM EDT Appointment [address] [address] Susana Garay MD [address] [place], [place] [id number] documented as of this encounter Visit Diagnoses Diagnosis Acute bacterial sinusitis- Primary Acute sinusitis, unspecified Insomnia, unspecified type Flu vaccine need Need for prophylactic vaccination and inoculation against influenza documented in this encounter Care Teams Drum Sprayer Relationship Specialty Start Date End Date Julisa Kerr MD [address] [place] [address] PCP - General 02/22/11 Jessica Cortes MD [address] [place] [address] Internal Medicine-Rheumatology 04/26/16 documented as of this encounter
--- OUTSIDE RECORDS SUMMARY | 2024-08-22 21:52 | XMS_ITS | Encounter Summary ---
Author Organization [place] [address] Care Team Providers Care Cloth Printing Back Tender Name Role Phone Julisa Kerr MD Primary Care Provider [phone] Jessica Cortes MD Unavailable [phone] Encounter Details Date Type Department Care Team (Latest Contact Info) Description 06/23/2017 10:45 AM EDT - 06/23/2017 11:59 PM EDT Hospital Encounter [facility] [address] [address] Rheumatoid arthritis involving multiple sites [...] on file documented as of this encounter Medications at Time of Discharge Insulin Syringe-Needle U-100 (BD INSULIN SYRINGE) 1 mL 25 gauge x 5/8 Misc SyringeIndicatio ns:Rheumatoid arthritis involving multiple sites with positive rheumatoid factor (HCC) Use for MTX injection once a week 100 Syringe 1 06/23/2017 9 documented as of this encounter Discharge Disposition Disposition Code Departure Means Destination Home or Self Care documented in this encounter Plan of Treatment Upcoming Encounters Date Type Department Care Team (Late st Contact Info) Description 08/31/2024 8:30 AM EST Appointment [facility] [place] [address] [place] [address] 10/25/2024 10:45 AM EST Office Visit [facility] [address] [place] [address] Jessica Cortes MD [address] [place] [address] 01/25/2025 9:00 AM EDT Appointment [place] [address] [place] [address] 05/09/2025 11:00 AM EDT Appointment [place] [address] [place] [address] 05/09/2025 11:15 AM EDT [address]ointment [address] [place] [address] Susana Garay MD [address] [place] [address] [place] [address] Scheduled Orders Name Type Priority Associated Diagnoses Orde r Schedule OP VENIPUNCTURE CHARGE Lab Timed Rheumatoid arthritis involving multiple sites with positive rheumatoid factor (HCC) Therapeutic drug monitoring One Time for 1 Occurrences starting 06/23/2017 until 06/23/2017 documented as of this encounter Goals Goal Patient Goal Type Associated Problems Recent Progress Patient-Stated? Author Maintain a healthy diet, exercise regularly and maintain an ideal body weight General No Porsche Jeffery RN documented as of this encounter Procedures Procedure Name Priority Date/Time Associated Diagnosis Comments DIFFERENTIAL Routine 06/23/2017 10:46 AM EDT SEDIMENTATION RATE AUTOMATED Routine 06/23/2017 10:46 AM EDT Rheumatoid arthritis involving multiple sites with positive rheumatoid factor (HCC) CBC WITH DIFF Routine 06/23/2017 10:46 AM EDT Rheumatoid arthritis involving multiple sites with positive rheumatoid factor (HCC) Therapeutic drug monitoring C-REACTIVE PROTEIN Routine 06/23/2017 10 :46 AM EDT Rheumatoid arthritis involving multiple sites with positive rheumatoid factor (HCC) COMPREHENSIVE METABOLIC PANEL Routine 06/23/2017 10:46 AM EDT Rheumatoid arthritis involving multiple sites with positive rheumatoid factor (HCC) Therapeutic drug monitoring documented in this encounter Results * DIFFERENTIAL (06/23/2017 10:46 AM EDT) Neut Percent 45.6 % [facility] Lymph Percent 35.2 % [facility] [place] Percent 13.8 % [facility] Eos Percent 4.9 % [facility] Baso Percent 0.5 % [facility] Neut# 2.6 1.8 - 7.7 x10(3)/mcL [facility] Lymph# 2.0 0.6 - 4.8 x10(3)/mcL [facility] [place]# 0.8 0.0 - 1.3 x10(3)/mcL [facility] Eos# 0.3 0.0 - 0.5 x10(3)/mcL [facility] Baso# 0.0 0.0 - 0.2 x10(3)/[facility] Blood specimen (specimen) 06/23/2017 10:46 AM EDT 06/23/2017 4:08 PM EDT us Jessica Cortes MD HEMATOLOGY ORDERABLES Fin al Result [facility] [address] [place] [address] * CBC WITH AUTO DIFF (06/23/2017 10:46 AM EDT) WBC 5.8 4.0 - 11.0 x10(3)/mcL [facility] RBC 4.60 3.80 - 5.10 x10(6)/mcL [facility] Hgb 13.8 12.0 - 15.6 gm/dL [facility] Hct 41.8 35.7 - 45.9 % [facility] MCV 90.7 82.5 - 99.8 fL [facility] MCH 29.9 27.0 - 34.3 pg [facility] MCHC 32.9 32.1 - 35.3 gm/dL [facility] RDW 13.3 11.5 - 15.0 % [facility] Platelet 280 144 - 423 x10(3)/mcL [facility] MPV 9.1 6.8 - 10.8 fL [facility] Blood specimen (specimen) UPPER LIMB STRUCTURE / Unknown 06/23/2017 10:46 AM EDT 06/23/2017 4:08 PM EDT us Jessica Cortes MD HEMATOLOGY ORDERABLES Fin al Result [facility] [address] [place] [address] * COMPREHENSIVE METABOLIC PANEL (06/23/2017 10:46 AM EDT) Sodium 139 136 - 145 mmol/L [facility] Potassium 4.2 3.5 - 5.0 mmol/L [facility] Chloride 102 98 - 107 mmol/L [facility] Total CO2 22 22 - 29 mmol/L [facility] Anion Gap 15 7 - 16 mmol/L [facility] Calcium 9.3 8.6 - 10.2 mg/dL [facility] Glucose Lvl 77 74 - 100 mg/dL [facility] BUN 13 6 - 20 mg/dL [facility] Creatinine 0.80 0.51 - 1.30 mg/dL [facility] Albumin 4.5 3.5 - 5.2 gm/dL [facility] Total Protein 7.5 6.4 - 8.3 gm/dL [facility] Bili Total 0.2 0.1 - 1.3 mg/dL [facility] AST 20 <=40 IU/L [facility] ALT 13 <=41 IU/L [facility] Alk Phos 90 35 - 104 IU/L [facility] GFR Afr Am >60 [facility] GFR Non Afr Am >60 [facility] Blood specimen (specimen) UPPER LIMB STRUCTURE / Unknown 06/23/2017 10:46 AM EDT 06/23/2017 4:09 PM EDT Jessica Cortes MD CHEMISTRY ORDERABLES Edit ed Result - Final Performing Organization Address [facility] [place] [address] * C-REACTIVE PROTEIN (06/23/2017 10:46 AM EDT) CRP 3.08 <=5.00 mg/L [facility] Blood specimen (specimen) UPPER LIMB STRUCTURE / Unknown 06/23/2017 10:46 AM EDT 06/23/2017 4:09 PM EDT Jessica Cortes MD CHEMISTRY ORDERABLES Siobhan l Result Performing Organization Address [facility] [place] [address] * SEDIMENTATION RATE AUTOMATED (06/23/2017 10:46 AM EDT) Sed Rate 14 0 - 20 mm/hr [facility] Blood specimen (specimen) UPPER LIMB STRUCTURE / Unknown 06/23/2017 10:46 AM EDT 06/23/2017 4:08 PM EDT Jessica Cortes MD HEMATOLOGY ORDERABLES Fin al Result Performing Organization Address [facility] [place] [address] documented in this encounter Visit Diagnoses Diagnosis Rheumatoid arthritis involving multiple sites with positive rheumatoid factor (HCC) Therapeutic drug monitoring Encounter for therapeutic drug monitoring documented in this encounter Care Teams Cloth Printing Back Tender Relationship Specialty Start Date End Date Julisa Kerr MD [address] [place] [address] PCP - General 02/22/11 Jessica Cortes MD [address] [facility] [address] [place] [id number] Internal Medicine-Rheumatology 04/26/16 documented as of this encounter
--- OUTSIDE RECORDS SUMMARY | 2024-08-22 21:52 | XMS_ITS | Encounter Summary ---
Author Organization [place] [address] Care Team Providers Care Can Patcher Name Role Phone Julisa Kerr MD Primary Care Provider [phone] Jessica Cortes MD Unavailable [phone] Reason for Visit * Reason Comments Follow-up 14 week Rheumatoid Arthritis Raynaud's Syndrome Osteopenia * Consultation (Routine) - Closed Specialty Diagnoses / Procedures Referred By Contac t Referred To Contact Internal Medicine-Rheumatology / Rheumatology Diagnoses RA (rheumatoid arthritis) (HCC) f/u 3 mo RA Procedures FOLLOW UP Julisa Kerr MD Phone: tel: fax: Jessica Cortes MD [address] [address] Phone: tel: fax: Referral ID Status Reason Start Date Expiration Date Visits Re quested Visits Authorized [id number] Closed 11/04/2016 11/04/2017 99 99 Encounter Details Date Type Department Care Team (Latest Contact Info) Description 10/06/2017 3:15 PM EST Office Visit [facility] [address] [address] Jessica Cortes MD [address] [address] Rheumatoid arthritis involving multiple sites with positive rheumatoid factor (HCC) (Primary Dx); Positive BRET (antinuclear antibody); Raynaud's phenomenon without gangrene; Neck pain; Osteopenia of multiple sites; Immunocompromised [...] Sign Reading Time Taken Comments Blood Pressure 118/82 10/06/2017 3:15 PM EST Pulse 8 10/06/2017 3:15 PM EST Temperature - - Respiratory Rate 16 10/06/2017 3:15 PM EST Oxygen Saturation - - Inhaled Oxygen Concentration - - Weight 63.5 kg (140 lb) 10/06/2017 3:15 PM EST Height 157.5 cm (5' 2 ) 10/06/2017 3:15 PM EST Body Mass Index 25.61 10/06/2017 3:15 PM EST documented in this encounter Ordered Prescriptions Prescription Sig Dispense Quantity Refills Last Filled Start Date End Date methotrexate 25 mg/mL Inj SolutionIndicatio ns:Rheumatoid arthritis involving multiple sites with positive rheumatoid factor (HCC) Subcutaneous (Inject under the skin) 0.8 mL every 7 days. 4 mL 1 10/06/2017 8 documented in this encounter Progress Notes * Jessica Cortes MD - 10/06/2017 3:15 PM EST Subjective Subjective: Patient ID: Yuliet Newsome is a 46 y.o. female. Chief Complaint Patient presents with ??? Follow-up 14 week ??? Rheumatoid Arthritis ??? Raynaud's Syndrome ??? Osteopenia HPI The patient comes in for follow up regarding RA. Symptoms started in 2002. Seen by [facility], Dr. Astorga. She was seen in [place] [...] mild pain- 3/10, mild swelling. Has been flaring up. She was off work for the last month due to pain and swelling in the wrists and hands. Left wrist, hands, left shoulder bother her a lot. Joint swelling: right wrist, hands- knuckles Pain on a scale 0-10: [...] some, Review of Systems Constitutional: Positive for fatigue. Weight gain HENT: Dry mouth Gastrointestinal: Positive for constipation and diarrhea. GERD Genitourinary: Positive for difficulty urinating. Musculoskeletal: Positive for arthralgias, joint swelling and neck pain. Neurological: Positive for dizziness. Hematological: Bruises/bleeds easily. Psychiatric/Behavioral: Positive for sleep disturbance. The patient is nervous/anxious. Depression All other systems reviewed and are negative. Objective Objective: Vitals: 10/06/17 1515 BP: 118/82 Pulse: (!) 8 Resp: 16 Weight: 140 lb (63.5 kg) Height: 5' 2 (1.575 m) Body mass index is 25.61 kg/m??. Physical Exam Constitutional: She is oriented [...] in the right shoulder. Tenderness to the 1st, 2nd, 3rd right MCP, 1st, 3rd left MCP, 2nd, 3rd left PIP. Synovitis in the wrists, 2nd right MCP, 1st MCP on left, 2nd, 3rd left PIP. ROM ofthe knees, ankles intact, no effusion. Neurological: She is alert and oriented to person, place, and time. Muscle strength 5/5 upper and lower extremities. Skin: Skin is warm. No rash noted. Psychiatric: She has a normal mood and affect. Vitals reviewed. Rapid 3: 18.7 Lab Results Component Value Date WBC 6.4 07/01/2017 HGB 13.9 07/01/2017 HCT 41.2 07/01/2017 MCV 89.1 07/01/2017 PLT 259 07/01/2017 Chemistry Component Value Date/Time NA 140 07/01/2017 1532 K 3.9 07/01/2017 1532 CL 102 07/01/2017 1532 CO2 22 07/01/2017 1532 BUN 11 07/01/2017 1532 CREATININE 0.78 07/01/2017 1532 GLU 103 (H) 07/01/2017 1532 Component Value Date/Time CALCIUM 9.3 07/01/2017 1532 ALKPHOS 98 07/01/2017 1532 AST 16 07/01/2017 1532 ALT 16 07/01/2017 1532 Lab Results Component Value Date CRP 3.08 06/23/2017 Lab Results Component Value Date SEDRATE 14 06/23/2017 Assessment and Plan: Yuliet was seen today for follow-up, rheumatoid arthritis, raynaud's syndrome and osteopenia. Diagnoses and all orders for this visit: Rheumatoid arthritis involving multiple sites, with positive rheumatoid factor (HCC) Dx in [address] Astorga in [facility] Records from [facility] received and reviewed. The patient was seen in 05/11/13 for initial evaluation. Presented with polyarticular joint involvement- large and small joints- shoulders, elbows, knees, wrists, knuckles, toes. Per records she had low titer RF, negative CCP, (+) BRET centromere pattern > 8.0 with negative SSA/SSB, HAM CURER, Scl 70, dsDNA Records indicate she used to see Miguel Armstrong but was lost to f/u due [...] (-) CCP Recurrent flares of joint pain, swelling Periodic synovitis in the wrists and 2nd, 3rd MCP on right as well as 1st MCP on left, 2nd, 3rd right PIP. MTX started 15 mg in 2012), changed to injectable in 06/2016 for better efficacy, she run out in 09/2016, restarted 11/2016, increase MTX to 20 mg weekly sq. Enbrel 50 mg sq q week ( since 2012), run out 09/2016, restarted 03/10/17 after PPD done and negative. RA active. Still synovitis, pain , tenderness. Will needed will change therapy. Discussed other options: Orencia, Actemra, Xeljanz. Info given. May also try a different TNF. Risks of those therapies discussed with the patient including injection site reactions, susceptibility to infections, reactivation of Tuberculosis and Histoplasmosis, bone marrow toxicity, possible risk of cancers and risk ofhepatotoxicity and elevation of cholesterol with Actemra and Xeljanz. Written information provided. She will let me know how she wants to proceed. - methotrexate 25 mg/mL Inj Solution; Subcutaneous (Inject under the skin) 0.8 mL every 7 days. Positive BRET (antinuclear [...] MTX Return in about 3 months (around 01/04/2018). documented in this encounter Plan of Treatment Upcoming Encounters Date Type Department Care Team (Late st Contact Info) Description 08/31/2024 8:30 AM EST [address]ointment [address] [place] [address] 10/25/2024 10:45 AM EST Office Visit [facility] [address] [facility] [address] [place] [address] Jessica Cortes MD [facility] Building [address] [place] [address] 01/25/2025 9:00 AM EDT Appointment [address] [place] [address] 05/09/2025 11:00 AM EDT Appointment [address] [place] [address] 05/09/2025 11:15 AM EDT Appointment [facility] [address] [place] [phone] Susana Garay MD [facility] [place] [address] documented as of this [...] skin) 0.8 mL every 7 days. Reorder 06/23/2017 10/06/2017 documented as of this encounter Care Teams Can Patcher Relationship Specialty Start Date End Date Julisa Kerr MD [address] [place] [address] PCP - General 02/22/11 Jessica Cortes MD [address] [address] Internal Medicine-Rheumatology 04/26/16 documented as of this encounter
--- OUTSIDE RECORDS SUMMARY | 2024-08-22 21:52 | XMS_ITS | Encounter Summary ---
Author Organization [place] [address] Care Team Providers Care Hot Plate Plywood Press Operator Name Role Phone Julisa Kerr MD Primary Care Provider [phone] Jessica Cortes MD Unavailable [phone] Encounter Details Date Type Department Care Team (Latest Contact Info) Description 07/01/2017 7:56 PM EDT - 07/01/2017 11:59 PM EDT Hospital Encounter [facility] [place] [address] Rheumatoid arthritis involving multiple sites with positive [...] Appointment [facility] [address] [address] [place] [address] 10/25/2024 10:45 AM EST Office Visit [facility] [address] [place] [address] Jessica Cortes MD [address] [place] [address] 01/25/2025 9:00 AM EDT Appointment [address] [address] [place] [address] 05/09/2025 11:00 AM EDT Appointment [address] [address] [place] [address] 05/09/2025 11:15 AM EDT Appointment [address] [address] [place] [address] Susana Garay MD [address] [place] [address] [place] [address] documented as of this encounter Goals Goal Patient Goal Type Associated Problems Recent Progress Patient-Stated? Author Maintain a healthy diet, exercise regularly and maintain an ideal body weight General No Porsche Jeffery RN documented as of this encounter Procedures Procedure Name Priority Date/Time Associated Diagnosis Comments VITAMIN B12/ FOLIC ACID Routine 07/01/2017 3:32 PM EDT Rheumatoid arthritis involving multiple sites with positive rheumatoid factor (HCC) TSH REFLEX Routine 07/01/2017 3:32 PM EDT Rheumatoid arthritis involving multiple sites with positive rheumatoid factor (HCC) DIFFERENTIAL Routine 07/01/2017 3:32 PM EDT VITAMIN D 25 HYDROXY Routine 07/01/2017 3:32 PM EDT Rheumatoid arthritis involving multiple sites with positive rheumatoid factor (HCC) CBC WITH DIFF Routine 07/01/2017 3:32 PM EDT Rheumatoid arthritis involving multiple sites with positive rheumatoid factor (HCC) LUTEINIZING HORMONE Routine 07/01/2017 3 :32 PM EDT Rheumatoid arthritis involving multiple sites with positive rheumatoid factor (HCC) FOLLICLE STIMULATING HORMONE LEVEL Routine 07/01/2017 3:32 PM EDT Rheumatoid arthritis involving multiple sites with positive rheumatoid factor (HCC) COMPREHENSIVE METABOLIC PANEL Routine 07/01/2017 3:32 PM EDT Rheumatoid arthritis involving multiple sites with positive rheumatoid factor (HCC) documented in this encounter Results * DIFFERENTIAL (07/01/2017 3:32 PM EDT) Neut Percent 47.2 % [facility] Lymph Percent 38.0 % [facility] [place] Percent 10.5 % [facility] Eos Percent 3.5 % [facility] Baso Percent 0.8 % [facility] Neut# 3.0 1.8 - 7.7 x10(3)/mcL [facility] Lymph# 2.4 0.6 - 4.8 x10(3)/mcL [facility] [place]# 0.7 0.0 - 1.3 x10(3)/mcL [facility] Eos# 0.2 0.0 - 0.5 x10(3)/mcL [facility] Baso# 0.1 0.0 - 0.2 x10(3)/mcL [facility] Blood specimen (specimen) 07/01/2017 3:32 PM EDT 07/01/2017 9:20 PM EDT us Julisa Kerr MD HEMATOLOGY ORDERABLES Final Re sult [facility] [address] [place] [address] * CBC WITH AUTO DIFF (07/01/2017 3:32 PM EDT) Pathologist [facility] WBC 6.4 4.0 - 11.0 x10(3)/mcL [facility] RBC 4.62 3.80 - 5.10 x10(6)/mcL [facility] Hgb 13.9 12.0 - 15.6 gm/dL [facility] Hct 41.2 35.7 - 45.9 % [facility] MCV 89.1 82.5 - 99.8 fL [facility] MCH 30.0 27.0 - 34.3 pg [facility] MCHC 33.7 32.1 - 35.3 gm/dL [facility] RDW 13.1 11.5 - 15.0 % [facility] Platelet 259 144 - 423 x10(3)/mcL [facility] MPV 9.5 6.8 - 10.8 fL [facility] Blood specimen (specimen) UPPER LIMB STRUCTURE / Unknown 07/01/2017 3:32 PM EDT 07/01/2017 9:20 PM EDT us Julisa Kerr MD HEMATOLOGY ORDERABLES Final Re sult Performing Organization Address [facility] de Phone Number [facility] 1 [place] [address] * FOLLICLE STIMULATING HORMONE LEVEL (07/01/2017 3:32 PM EDT) Pathologist [facility] FSH 79.21 mIU/mL [facility] Comment: Suggested Reference Range (mIU/mL) Females Follicular Phase ?? 3.5 - ??12.5 Ovulation Phase ?4.7 - ??21.5 ?? Luteal Phase ? 1.7 - ?? 7.7 Postmenopause ? 25.8 - 134.8 Males 1.5 - 12.4 Blood specimen (specimen) UPPER LIMB STRUCTURE / Unknown 07/01/2017 3:32 PM EDT 07/01/2017 9:20 PM EDT us Julisa Kerr MD CHEMISTRY ORDERABLES Final Res ult Performing Organization Address [facility] [place] [address] * LUTEINIZING HORMONE (07/01/2017 3:32 PM EDT) [facility] LH 44.45 mIU/mL [facility] Comment: Suggested Reference Ranges (mIU/mL) Females Follicular Phase ?? 2.4 - 12.6 Ovulation Phase ?? 14.0 - 95.6 Luteal Phase ? 1.0 - 11.4 Postmenopause ?7.7 - 58.5 Males 1.7 - 8.6 Blood specimen (specimen) UPPER LIMB STRUCTURE / Unknown 07/01/2017 3:32 PM EDT 07/01/2017 9:20 PM EDT us Julisa Kerr MD CHEMISTRY ORDERABLES Final Res ult Performing Organization Address [facility] [place] [address] * (ABNORMAL) COMPREHENSIVE METABOLIC PANEL (07/01/2017 3:32 PM EDT) [facility] Sodium 140 136 - 145 mmol/L [facility] Potassium 3.9 3.5 - 5.0 mmol/L [facility] Chloride 102 98 - 107 mmol/L [facility] Total CO2 22 22 - 29 mmol/L [facility] Anion Gap 16 7 - 16 mmol/L [facility] Calcium 9.3 8.6 - 10.2 mg/dL [facility] Glucose Lvl 103(H) 74 - 100 mg/dL [facility] BUN 11 6 - 20 mg/dL [facility] Creatinine 0.78 0.51 - 1.30 mg/dL [facility] Albumin 4.5 3.5 - 5.2 gm/dL [facility] Total Protein 7.2 6.4 - 8.3 gm/dL [facility] Bili Total 0.2 0.1 - 1.3 mg/dL [facility] AST 16 <=40 IU/L [facility] ALT 16 <=41 IU/L [facility] Alk Phos 98 35 - 104 IU/L [facility] GFR Afr Am >60 [facility] GFR Non Afr Am >60 [facility] Blood specimen (specimen) UPPER LIMB STRUCTURE / Unknown 07/01/2017 3:32 PM EDT 07/01/2017 9:20 PM EDT Julisa Kerr MD CHEMISTRY ORDERABLES Edited Re sult - Final Performing Organization Address [facility] de Phone Number [facility] 1 [place] [address] * (ABNORMAL) VITAMIN D 25 HYDROXY (07/01/2017 3:32 PM EDT) VIT D 25 [place] 29.7(L) 30.0 - 120.0 ng/mL [facility] Comment: INTERPRETIVE INFORMATION: ??Vitamin D, 25-Hydroxy <20 ng/mL ? Deficiency 20 - 29 ng/mL ?Insufficiency 30 - 80 ng/mL ?Optimum Level >120 ng/mL ? Possible Toxicity NOTE: For infants and children up to 17 years of age, the optimum level is >=20 ng/mL. This assay accurately quantifies the sum of vitamin D3, 25-Hydroxy and vitamin D2, 25-Hydroxy. Blood specimen (specimen) UPPER LIMB STRUCTURE / Unknown 07/01/2017 3:32 PM EDT 07/01/2017 9:20 PM EDT Julisa Kerr MD CHEMISTRY ORDERABLES Final Res ult Performing Organization Address [facility] de Phone Number [facility] [address] [place] [address] * VITAMIN B12/ FOLIC ACID (07/01/2017 3:32 PM EDT) Vitamin B12 271 211 - 946 pg/mL [facility] Folic Acid Lvl 7.85 4.50 - 37.30 ng/mL [facility] Blood specimen (specimen) UPPER LIMB STRUCTURE / Unknown 07/01/2017 3:32 PM EDT 07/01/2017 9:20 PM EDT us Julisa Kerr MD CHEMISTRY ORDERABLES Edited Re sult - Final Performing Organization Address [facility] Co de Phone Number [facility] [address] [place] [address] * TSH REFLEX (07/01/2017 3:32 PM EDT) TSH Reflex 1.530 0.270 - 4.200 mcIU/mL [facility] Blood specimen (specimen) UPPER LIMB STRUCTURE / Unknown 07/01/2017 3:32 PM EDT 07/01/2017 9:20 PM EDT us Julisa Kerr MD CHEMISTRY ORDERABLES Final Res ult Performing Organization Address [facility] de Phone Number [facility] [address] [place] [address] documented in this encounter Visit Diagnoses Diagnosis Rheumatoid arthritis involving multiple sites with positive rheumatoid factor (HCC) documented in this encounter Care Teams Hot Plate Plywood Press Operator Relationship Specialty Start Date End Date Julisa Kerr MD [address] [place] [address] PCP - General 02/22/11 Jessica Cortes MD [address] [place] [address] Internal Medicine-Rheumatology 04/26/16 documented as of this encounter
--- OUTSIDE RECORDS SUMMARY | 2024-08-22 21:52 | XMS_ITS | Encounter Summary ---
Author Organization [place] [address] Care Team Providers Care Store Host Name Role Phone Julisa Kerr MD Primary Care Provider [phone] Jessica Cortes MD Unavailable [phone] Reason for Visit * Reason Comments Weight Gain Rheumatoid Arthritis Encounter Details Date Type Department Care Team (Late st Contact Info) Description 07/01/2017 2:30 PM EDT Office Visit [facility] [address] [place] [id number] Julisa Kerr MD [address] [place] [address] Rheumatoid arthritis involving multiple sites with positive [...] Sign Reading Time Taken Comments Blood Pressure 122/76 07/01/2017 2:50 PM EDT Pulse - - Temperature 36.8 ??C (98.2 ??F) 07/01/2017 2:50 PM ED T Respiratory Rate - - Oxygen Saturation - - Inhaled Oxygen Concentration - - Weight 64 kg (141 lb) 07/01/2017 2:50 PM EDT Height 158.8 cm (5' 2.5 ) 07/01/2017 2:50 PM EDT Body Mass Index 25.38 07/01/2017 2:50 PM EDT documented in this encounter Progress Notes * Julisa Kerr MD - 07/01/2017 2:30 PM EDT Subjective Chief Complaint Patient presents with ??? Weight Gain HPI Ra. On meds. Hand and joint swelling worse in the am Pt is here today to have her thyroid and hormone levels checked due to weight gain. Review of Systems Constitutional: Positive for fatigue and unexpected weight change. HENT: Negative. Respiratory: Negative. Cardiovascular: Negative. Gastrointestinal: Negative. Musculoskeletal: Positive for arthralgias and joint swelling. Psychiatric/Behavioral: Negative. Objective BP 122/76 Temp 98.2 ??F (36.8 ??C) (Tympanic) Ht 5' 2.5 (1.588 m) Wt 141 lb (64 kg) BMI 25.38 kg/m?? Physical Exam Constitutional: She appears well-developed and well-nourished. HENT: Head: Normocephalic and atraumatic. Eyes: Conjunctivae are normal. Neck: Neck supple. Cardiovascular: Normal rate and regular rhythm. No murmur heard. Pulmonary/Chest: She has no wheezes. Abdominal: Soft. There is no tenderness. Musculoskeletal: She exhibits edema and tenderness. Psychiatric: She has a normal mood and affect. Nursing note and vitals reviewed. Diagnoses and all orders for this visit: 1. Rheumatoid arthritis involving multiple sites with positive rheumatoid factor (HCC) (Chronic) - [place] COLLECTION VENOUS BLOOD,VENIPUNCTURE - TSH REFLEX; Future - VITAMIN B12/ FOLIC ACID; Future - VITAMIN D 25 HYDROXY; Future - COMPREHENSIVE METABOLIC PANEL; Future - LUTEINIZING HORMONE; Future - FOLLICLE STIMULATING HORMONE LEVEL; Future - CBC WITH AUTO DIFF; Future Other orders - FLU VACCINE QUADRIVALENT (3YR+) LOCATED WITHIN [facility] Documentation Medication Compliance: Compliant all the time Understanding of Current Medications: Good Medication Compliance Barriers: None or N/A Self-Management Tools: N/A: no chronic conditions Self-Management Ability: Good Willingness to Adopt Healthy Behaviors: Good Potential Barriers to completing treatment plans today: No significant barriers LOCATED [facility]IN [facility] Flowsheet was completed/reviewed as part of today's visit. Educated patient regarding the diagnosis, medication/treatment, goals, self- management tools and instructions based on their care plan. They verbalized understanding of the education given on the After Visit Summary [AVS] for today's visit. A copy of the AVS was provided either in writing and/or via [employer]. A new medicine See note documented in this encounter Plan of Treatment Upcoming Encounters Date Type Department Care Team (Late st Contact Info) Description 08/31/2024 8:30 AM EST Appointment [address] [address] [place] [address] 10/25/2024 10:45 AM EST Office Visit [facility] [address] [place] [address] Jessica Cortes MD [address] [place] [address] 01/25/2025 9:00 AM EDT Appointment [address] [address] [place] [address] 05/09/2025 11:00 AM EDT [address] [place] [address] 05/09/2025 11:15 AM EDT [address]ment [address] [place] [address] Susana Garay MD [address] [place] [address] [place] [address] documented as of this encounter Goals Goal Patient Goal Type Associated Problems Recent Progress Patient-Stated? Author Maintain a healthy diet, exercise regularly and maintain an ideal body weight General No Porsche Jeffery RN documented as of this encounter Results * CBC WITH AUTO DIFF (07/01/2017 3:32 PM EDT) WBC 6.4 4.0 - 11.0 x10(3)/mcL [facility] RBC 4.62 3.80 - 5.10 x10(6)/mcL [facility] Hgb 13.9 12.0 - 15.6 gm/dL [facility] Hct 41.2 35.7 - 45.9 % [facility] MCV 89.1 82.5 - 99.8 fL [facility] MCH 30.0 27.0 - 34.3 pg [facility] MCHC 33.7 32.1 - 35.3 gm/dL [facility] RDW 13.1 11.5 - 15.0 % [facility] Platelet 259 144 - 423 x10(3)/mcL [facility] MPV 9.5 6.8 - 10.8 fL [facility] Blood specimen (specimen) UPPER LIMB STRUCTURE / Unknown 07/01/2017 3:32 PM EDT 07/01/2017 9:20 PM EDT us Julisa Kerr MD HEMATOLOGY ORDERABLES Final Re sult Performing Organization Address [facility] Co de Phone Number [facility] [address] [place] [address] * FOLLICLE STIMULATING HORMONE LEVEL (07/01/2017 3:32 PM EDT) Pathologist [facility] FSH 79.21 mIU/mL [facility] Comment: Suggested Reference Range (mIU/mL) [...] ORDERABLES Final Res ult Performing Organization Address City/[facility] Co de Phone Number [facility] [address] [place] [address] * LUTEINIZING HORMONE (07/01/2017 3:32 PM EDT) [facility] LH 44.45 mIU/mL [facility] Comment: Suggested Reference Ranges (mIU/mL) Females Follicular Phase ?? 2.4 - 12.6 Ovulation Phase ?? 14.0 - 95.6 Luteal Phase ? 1.0 - 11.4 Postmenopause ?7.7 - 58.5 Males 1.7 - 8.6 Blood specimen (specimen) UPPER LIMB STRUCTURE / Unknown 07/01/2017 3:32 PM EDT 07/01/2017 9:20 PM EDT us Julisa Kerr MD CHEMISTRY ORDERABLES Final Res ult Performing Organization Address [facility] [place] [address] * (ABNORMAL) COMPREHENSIVE METABOLIC PANEL (07/01/2017 3:32 PM EDT) [facility] Sodium 140 136 - 145 mmol/L [facility] Potassium 3.9 3.5 - 5.0 mmol/L [facility] Chloride 102 98 - 107 mmol/L [facility] Total CO2 22 22 - 29 mmol/L [facility] Anion Gap 16 7 - 16 mmol/L [facility] Calcium 9.3 8.6 - 10.2 mg/dL [facility] Glucose Lvl 103(H) 74 - 100 mg/dL [facility] BUN 11 6 - 20 mg/dL [facility] Creatinine 0.78 0.51 - 1.30 mg/dL [facility] Albumin 4.5 3.5 - 5.2 gm/dL [facility] Total Protein 7.2 6.4 - 8.3 gm/dL [facility] Bili Total 0.2 0.1 - 1.3 mg/dL [facility] AST 16 <=40 IU/L [facility] ALT 16 <=41 IU/L [facility] Alk Phos 98 35 - 104 IU/L [facility] GFR Afr Am >60 [facility] GFR Non Afr Am >60 [facility] Blood specimen (specimen) UPPER LIMB STRUCTURE / Unknown 07/01/2017 3:32 PM EDT 07/01/2017 9:20 PM EDT Julisa Kerr MD CHEMISTRY ORDERABLES Edited Re sult - Final Performing Organization Address [facility] de Phone Number [facility] [address] [place] [address] * (ABNORMAL) VITAMIN D 25 HYDROXY (07/01/2017 3:32 PM EDT) VIT D 25 [place] 29.7(L) 30.0 - 120.0 ng/mL [facility] Comment: INTERPRETIVE INFORMATION: ??Vitamin D, 25-Hydroxy [...] ORDERABLES Final Res ult Performing Organization Address [facility] Co de Phone Number [facility] [address] [place] [address] * VITAMIN B12/ FOLIC ACID (07/01/2017 3:32 PM EDT) Vitamin B12 271 211 - 946 pg/mL [facility] Folic Acid Lvl 7.85 4.50 - 37.30 ng/mL [facility] Blood specimen (specimen) UPPER LIMB STRUCTURE / Unknown 07/01/2017 3:32 PM EDT 07/01/2017 9:20 PM EDT us Julisa Kerr MD CHEMISTRY ORDERABLES Edited Re sult - Final Performing Organization Address [facility] Co de Phone Number [facility] [address] [place] [address] * TSH REFLEX (07/01/2017 3:32 PM EDT) TSH Reflex 1.530 0.270 - 4.200 mcIU/mL [facility] Blood specimen (specimen) UPPER LIMB STRUCTURE / Unknown 07/01/2017 3:32 PM EDT 07/01/2017 9:20 PM EDT us Julisa Kerr MD CHEMISTRY ORDERABLES Final Res ult Performing Organization Address [facility] Co de Phone Number [facility] [address] [place] [address] documented in this encounter Visit Diagnoses Diagnosis 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 documented in this encounter Orders Immunization/Injection Count Last Ordered Date First Ordered Date FLU VACCINE QUADRIVALENT (3YR+) 1 7 Charge Count Last Ordered Date First Orde red Date [place] COLLECTION VENOUS BLOOD,VENIPUNCTURE 1 1 documented in this encounter Care Teams Store Host Relationship Specialty Start Date End Date Julisa Kerr MD [address] [place] [address] PCP - General 02/22/11 Jessica Cortes MD [id number] Internal Medicine-Rheumatology 04/26/16 documented as of this encounter
--- OUTSIDE RECORDS SUMMARY | 2024-08-22 21:52 | XMS_ITS | Encounter Summary ---
Author Organization [place] [address] Care Team Providers Care Cloth Tester Name Role Phone Julisa Kerr MD Primary Care Provider [phone] Jessica Cortes MD Unavailable [phone] Encounter Details Date Type Department Care Team (Latest Contact Info) Description 03/17/2017 8:30 AM EDT - 03/17/2017 11:59 PM EDT Hospital Encounter [facility] [place] [address] [address] Rheumatoid arthritis involving multiple sites [...] Appointment [facility] [address] [address] 10/25/2024 10:45 AM EST Office Visit [facility] [address] [place] [address] Jessica Cortes MD [address] [facility] Building [address] [place] [address] 01/25/2025 9:00 AM EDT Appointment [place] [address] [place] [address] 05/09/2025 11:00 AM EDT Appointment [place] [address] [place] [address] 05/09/2025 11:15 AM EDT Appointment [place] [address] [place] [address] Susana Garay MD [address] [place] [address] [place] [address] Scheduled Orders Name Type Priority Associated Diagnoses Orde r Schedule OP VENIPUNCTURE CHARGE Lab Timed Rheumatoid arthritis involving multiple sites with positive rheumatoid factor (HCC) Therapeutic drug monitoring One Time for 1 Occurrences starting 03/17/2017 until 03/17/2017 documented as of this encounter Goals Goal Patient Goal Type Associated Problems Recent Progress Patient-Stated? Author Maintain a healthy diet, exercise regularly and maintain an ideal body weight General No Porsche Jeffery RN documented as of this encounter Procedures Procedure Name Priority Date/Time Associated Diagnosis Comments DIFFERENTIAL Routine 03/17/2017 8:32 AM EDT SEDIMENTATION RATE AUTOMATED Routine 03/17/2017 8:32 AM EDT Rheumatoid arthritis involving multiple sites with positive rheumatoid factor (HCC) Therapeutic drug monitoring CBC WITH DIFF Routine 03/17/2017 8:32 AM EDT Rheumatoid arthritis involving multiple sites with positive rheumatoid factor (HCC) Therapeutic drug monitoring C-REACTIVE PROTEIN Routine 03/17/2017 8: 32 AM EDT Rheumatoid arthritis involving multiple sites with positive rheumatoid factor (HCC) Therapeutic drug monitoring COMPREHENSIVE METABOLIC PANEL Routine 03/17/2017 8:32 AM EDT Rheumatoid arthritis involving multiple sites with positive rheumatoid factor (HCC) Therapeutic drug monitoring documented in this encounter Results * DIFFERENTIAL (03/17/2017 8:32 AM EDT) Neut Percent 42.8 % [facility] Lymph Percent 39.6 % [facility] [place] Percent 13.0 % [facility] Eos Percent 4.1 % [facility] Baso Percent 0.5 % [facility] Neut# 2.7 1.8 - 7.7 x10(3)/mcL [facility] Lymph# 2.5 0.6 - 4.8 x10(3)/mcL [facility] Tunica# 0.8 0.0 - 1.3 x10(3)/mcL [facility] Eos# 0.3 0.0 - 0.5 x10(3)/mcL [facility] Baso# 0.0 0.0 - 0.2 x10(3)/[facility] Blood specimen (specimen) 03/17/2017 8:32 AM EDT 03/17/2017 12:15 PM EDT Jessica Cortes MD HEMATOLOGY ORDERABLES Fin al Result Performing Organization Address City/[facility] [place] [address] * SEDIMENTATION RATE AUTOMATED (03/17/2017 8:32 AM EDT) [facility] Sed Rate 10 0 - 20 mm/hr [facility] Blood specimen (specimen) UPPER LIMB STRUCTURE / Unknown 03/17/2017 8:32 AM EDT 03/17/2017 12:15 PM EDT us Jessica Cortes MD HEMATOLOGY ORDERABLES Fin al Result Performing Organization Address City/[facility]/[place] [address] * C-REACTIVE PROTEIN (03/17/2017 8:32 AM EDT) Pathologist [facility] CRP 1.63 <=5.00 mg/L [facility] Blood specimen (specimen) UPPER LIMB STRUCTURE / Unknown 03/17/2017 8:32 AM EDT 03/17/2017 12:15 PM EDT Jessica Cortes MD CHEMISTRY ORDERABLES Siobhan l Result Performing Organization Address City/[facility]/ZIP Co de Phone Number [facility] [address] [place] [address] * CBC WITH AUTO DIFF (03/17/2017 8:32 AM EDT) Pathologist [facility] WBC 6.4 4.0 - 11.0 x10(3)/mcL [facility] RBC 4.66 3.80 - 5.10 x10(6)/mcL [facility] Hgb 14.3 12.0 - 15.6 gm/dL [facility] Hct 42.6 35.7 - 45.9 % [facility] MCV 91.5 82.5 - 99.8 fL [facility] MCH 30.7 27.0 - 34.3 pg [facility] MCHC 33.5 32.1 - 35.3 gm/dL [facility] RDW 13.5 11.5 - 15.0 % [facility] Platelet 244 144 - 423 x10(3)/mcL [facility] MPV 9.4 6.8 - 10.8 fL [facility] Blood specimen (specimen) UPPER LIMB STRUCTURE / Unknown 03/17/2017 8:32 AM EDT 03/17/2017 12:15 PM EDT Jessica Cortes MD HEMATOLOGY ORDERABLES Fin al Result Performing Organization Address City/[facility]/ZIP Co de Phone Number [facility] [address] [place] [address] * (ABNORMAL) COMPREHENSIVE METABOLIC PANEL (03/17/2017 8:32 AM EDT) Pathologist [facility] Sodium 136 136 - 145 mmol/L [facility] Potassium 3.5 3.5 - 5.0 mmol/L [facility] Chloride 98 98 - 107 mmol/L [facility] Total CO2 23 22 - 29 mmol/L [facility] Anion Gap 15 7 - 16 mmol/L [facility] Calcium 9.7 8.6 - 10.2 mg/dL [facility] Glucose Lvl 73(L) 74 - 100 mg/dL [facility] BUN 13 6 - 20 mg/dL [facility] Creatinine 0.82 0.51 - 1.30 mg/dL [facility] Albumin 4.4 3.5 - 5.2 gm/dL [facility] Total Protein 7.5 6.4 - 8.3 gm/dL [facility] Bili Total 0.5 0.1 - 1.3 mg/dL [facility] AST 18 <=40 IU/L [facility] ALT 11 <=41 IU/L [facility] Alk Phos 85 35 - 104 IU/L [facility] GFR Afr Am >60 [facility] GFR Non Afr Am >60 [facility] Blood specimen (specimen) UPPER LIMB STRUCTURE / Unknown 03/17/2017 8:32 AM EDT 03/17/2017 12:15 PM EDT Jessica Cortes MD CHEMISTRY ORDERABLES Edit ed Result - Final Performing Organization Address City/State/[facility] Co de Phone Number [facility] 1 [place] [address] documented in this encounter Visit Diagnoses Diagnosis Rheumatoid arthritis involving multiple sites with positive rheumatoid factor (HCC) Therapeutic drug monitoring Encounter for therapeutic drug monitoring documented in this encounter Care Teams Cloth Tester Relationship Specialty Start Date End Date Julisa Kerr MD [address] [place] [address] PCP - General 02/22/11 Jessica Cortes MD [address] [place] [address] Internal Medicine-Rheumatology 04/26/16 documented as of this encounter
--- OUTSIDE RECORDS SUMMARY | 2024-08-22 21:52 | XMS_ITS | Encounter Summary ---
Author [place] [address] Care Team Providers Care Crumb Packer Name Role Phone Julisa Kerr MD Primary Care Provider [phone] Jessica Cortes MD Unavailable [phone] Reason for Visit * Reason Onset Date Comments Medication Change 06/23/2017 Encounter Details Date Type Department Care Team (Late st Contact Info) Description 06/23/2017 Telephone [facility] Rheumatology [facility] [address] [facility] Building [address] [place] [phone] Jessica Cortes MD [address] [place] [id number] Medication Change Social History Tobacco Use Types Packs/Day Years [...] Telephone Encounter - Mel Michaels RMA - 06/23/2017 4:21 PM EDT Spoke with pharmacist. Clarified the change to MTX with preservative. * Telephone Encounter - Jessica Cortes MD - 06/23/2017 1:59 PM EDT Ok to change. * Telephone Encounter - Mel Michaels RMA - 06/23/2017 1:14 PM EDT Received a fax request on the medication MTX 200/8ml injections. The pharmacy wants to know that the MTX solution that was sent into the pharmacy was preservative free. This solution is unavailable. Can they use the one with preservatives? Please advise. documented in this encounter Plan of Treatment Upcoming Encounters Date Type Department Care Team (Late st Contact Info) Description 08/31/2024 8:30 AM EST Appointment [place] [address] [place] [address] 10/25/2024 10:45 AM EST Office Visit [facility] [address] [facility] [address] [place] [address] Jessica Cortes MD [address] [place] [address] [address] [place] [address] 01/25/2025 9:00 AM EDT Appointment [place] [address] [place] [address] 05/09/2025 11:00 AM EDT Appointment [place] [address] [place] [address] 05/09/2025 11:15 AM EDT [address] [place] [address] Susana Garay MD [address] [place] [address] [place] [address] documented as of this encounter Goals Goal Patient Goal Type Associated Problems Recent Progress Patient-Stated? Author Maintain a healthy diet, exercise regularly and maintain an ideal body weight General Porsche Ashley, RN documented as of this encounter Visit Diagnoses Not on filedocumented in this encounter Care Teams Crumb Packer Relationship Specialty Start Date End Date Julisa Kerr MD [address] [place] [address] PCP - General 02/22/11 Jessica Cortes MD [address] [facility] 19 [place] [address] Internal Medicine-Rheumatology 04/26/16 documented as of this encounter
--- OUTSIDE RECORDS SUMMARY | 2024-08-22 21:52 | XMS_ITS | Encounter Summary ---
Author Organization [place] [address] Care Team Providers Care Recreation Superintendent Name Role Phone Julisa Kerr MD Primary Care Provider [phone] Jessica Cortes MD Unavailable [phone] Reason for Visit * Reason Comments Medication Refill Encounter Details Date Type Department Care Team (Late Contact Info) Description 12/03/2016 Refill [facility] [address] [place] [phone] Julisa Kerr MD [address] [place] [address] Medication Refill Social History Tobacco Use Types [...] on file documented as of this encounter Ordered Prescriptions Prescription Sig Dispense Quantity Refills Last Filled Start Date End Date VENTOLIN HFA 90 mcg/actuation Inhl HFA Aerosol Inhaler INHALE TWO PUFFS BY MOUTH EVERY 6 HOURS NEEDED FOR WHEEZING 1 Inhaler 12/04/2016 1 documented in this encounter Plan of Treatment Upcoming Encounters Date Type Department Care Team (Late st Contact Info) Description 08/31/2024 8:30 AM EST Appointment [place] [address] [place] [address] 10/25/2024 10:45 AM EST Office Visit [facility] [address] [facility] [address] [place] [address] Jessica Cortes MD [address] [facility] 19 [place] [address] 01/25/2025 9:00 AM EDT Appointment [address] [place] [address] 05/09/2025 11:00 AM EDT Appointment [address] [place] [address] 05/09/2025 11:15 AM EDT Appointment [address] [place] [address] Susana Garay MD [address] [place], [place] [id number] documented as of this encounter Visit Diagnoses Not on filedocumented in this encounter Discontinued Medications Medication Sig Discontinue Reason Start Date End Da te albuterol (VENTOLIN HFA) 90 mcg/actuation Inhl HFA Aerosol Inhaler Inhale 2 Puffs into the lungs every 6 hours as needed for Wheezing. Reorder 09/20/2015 12/03/2016 documented as of this encounter Care Teams Recreation Superintendent Relationship Specialty Start Date End Date Julisa Kerr MD [address] [place] [address] PCP - General 02/22/11 Jessica Cortes MD [address] [facility] Building [address] [place] [address] Internal Medicine-Rheumatology 04/26/16 documented as of this encounter
--- OUTSIDE RECORDS SUMMARY | 2024-08-22 21:52 | XMS_ITS | Encounter Summary ---
Author Organization [place] [address] Care Team Providers Care Wine Steward/Stewardess Name Role Phone Julisa Kerr MD Primary Care Provider [phone] Jessica Cortes MD Unavailable [phone] Reason for Visit * Reason Onset Date Comments Results 04/25/2016 Encounter Details Date Type Department Care Team (Late st Contact Info) Description 04/25/2016 Telephone SEP Rheumatology [facility] 651 [facility] Building [address] [place] [phone] Jessica Cortes MD [address] [place] [phone] Results Social History Tobacco Use Types Packs/Day [...] Date folic acid (FOLVITE) 1 mg Oral TabletIndications :Rheumatoid arthritis involving multiple sites with positive rheumatoid factor (HCC) Take 1 Tab by mouth daily. 30 Tab 5 04/26/2016 6 etanercept (ENBREL) 50 mg/mL (0.98 mL) SubQ SyringeIndication s:Rheumatoid arthritis involving multiple sites with positive rheumatoid factor (HCC) Subcutaneous (Inject under the skin) 0.98 mL once a week. 4 Syringe 2 04/26/2016 6 methotrexate 2.5 mg Oral TabletIndications :Rheumatoid arthritis involving multiple sites with positive rheumatoid factor (HCC) Take 6 Tabs by mouth once a week. 26 Tab 2 04/26/2016 7 documented in this encounter Miscellaneous Notes * Telephone Encounter - Prema Mckenna RMA - 05/02/2016 3:02 PM EDT Letter mailed 05/02/16 * Telephone Encounter - Ashlee Dumont RT - 04/29/2016 10:56 AM EDT Left message to call office. * Telephone Encounter - Prema Mckenna RMA - 04/26/2016 9:03 AM EDT Left message to call * Telephone Encounter - Jessica Cortes MD - 04/26/2016 7:23 AM EDT Please let the patient know I have sent MTX, Enbrel and folic acid to her pharmacy. * Telephone Encounter - Prema Mckenna RMA - 04/25/2016 2:55 PM EDT Left message to call * Telephone Encounter - Prema Mckenna RMA - 04/25/2016 1:16 PM EDT Both cell and home phones are not accepting calls at this time. 1:15, 04/25/16 * Telephone Encounter - Jessica Cortes MD - 04/25/2016 1:05 PM EDT Please see message from yesterday regarding x rays of the hands and feet. X ray of the C spine showed mild degenerative changes at the lower levels. Labs were normal except for (+) BRET and (+) RF. * Telephone Encounter - Prema Mckenna RMA - 04/25/2016 10:03 AM EDT Pt calling for x-ray and lab results. documented in this encounter Plan of Treatment Upcoming Encounters Date Type Department Care Team (Late st Contact Info) Description 08/31/2024 8:30 AM EST Appointment [place] [address] [place] [address] 10/25/2024 10:45 AM EST Office Visit EDG RHEUMATOLOGY [facility] [address] [place] [facility] [address] [place] [address] Jessica Cortes MD [address] [place] [address] [address] [place] [address] 01/25/2025 9:00 AM EDT Appointment [place] [address] [place] [address] 05/09/2025 11:00 AM EDT Appointment [place] [address] [place] [address] 05/09/2025 11:15 AM EDT Appointment [place] [address] [place] [address] Susana Garay MD [address] [place] [address] [place] [address] Scheduled Orders Name Type Priority Associated Diagnoses Orde r Schedule SEDIMENTATION RATE AUTOMATED Lab Routine Rheumatoid arthritis involving multiple sites with positive rheumatoid factor (HCC) Therapeutic drug monitoring Every 6 weeks for 10 Occurrences starting 04/26/2016 until 04/26/2017, 3 completed C-REACTIVE PROTEIN Lab Routine Rheumatoid arthritis involving multiple sites with positive rheumatoid factor (HCC) Therapeutic drug monitoring Every 6 weeks for 10 Occurrences starting 04/26/2016 until 04/26/2017, 3 completed CBC WITH AUTO DIFF Lab Routine Rheumatoid arthritis involving multiple sites with positive rheumatoid factor (HCC) Therapeutic drug monitoring Every 6 weeks for 10 Occurrences starting 04/26/2016 until 04/26/2017, 3 completed COMPREHENSIVE METABOLIC PANEL Lab Routine Rheumatoid arthritis involving multiple sites with positive rheumatoid factor (HCC) Therapeutic drug monitoring Every 6 weeks for 10 Occurrences starting 04/26/2016 until 04/26/2017, 3 completed documented as of this encounter Results * (ABNORMAL) COMPREHENSIVE METABOLIC PANEL (03/17/2017 8:32 AM EDT) Sodium 136 136 - 145 mmol/L [facility] Potassium 3.5 3.5 - 5.0 mmol/L [facility] Chloride 98 98 - 107 mmol/L [facility] Total CO2 23 22 - 29 mmol/L [facility] Anion Gap 15 7 - 16 mmol/L [facility] Calcium 9.7 8.6 - 10.2 mg/dL [facility] Glucose Lvl 73(L) 74 - 100 mg/dL [facility] BUN 13 6 - 20 mg/dL [facility] Creatinine 0.82 0.51 - 1.30 mg/dL [facility] Albumin 4.4 3.5 - 5.2 gm/dL [facility] Total Protein 7.5 6.4 - 8.3 gm/dL [facility] Bili Total 0.5 0.1 - 1.3 mg/dL [facility] AST 18 <=40 IU/L [facility] ALT 11 <=41 IU/L [facility] Alk Phos 85 35 - 104 IU/L [facility] GFR Afr Am >60 [facility] GFR Non Afr Am >60 [facility] Blood specimen (specimen) UPPER LIMB STRUCTURE / Unknown 03/17/2017 8:32 AM EDT 03/17/2017 12:15 PM EDT Jessica Cortes MD CHEMISTRY ORDERABLES Edit ed Result - Final Performing Organization Address City/[facility]/ZIP Co de Phone Number [facility] [address] [place] [address] * CBC WITH AUTO DIFF (03/17/2017 8:32 AM EDT) Pathologist [facility] WBC 6.4 4.0 - 11.0 x10(3)/mcL [facility] RBC 4.66 3.80 - 5.10 x10(6)/mcL [facility] Hgb 14.3 12.0 - 15.6 gm/dL [facility] Hct 42.6 35.7 - 45.9 % [facility] MCV 91.5 82.5 - 99.8 fL [facility] MCH 30.7 27.0 - 34.3 pg [facility] MCHC 33.5 32.1 - 35.3 gm/dL [facility] RDW 13.5 11.5 - 15.0 % [facility] Platelet 244 144 - 423 x10(3)/mcL [facility] MPV 9.4 6.8 - 10.8 fL [facility] Blood specimen (specimen) UPPER LIMB STRUCTURE / Unknown 03/17/2017 8:32 AM EDT 03/17/2017 12:15 PM EDT Jessica Cortes MD HEMATOLOGY ORDERABLES Fin al Result Performing Organization Address City/[facility]/ZIP Co de Phone Number [facility] [address] [place] [address] * C-REACTIVE PROTEIN (03/17/2017 8:32 AM EDT) Pathologist [facility] CRP 1.63 <=5.00 mg/L [facility] Blood specimen (specimen) UPPER LIMB STRUCTURE / Unknown 03/17/2017 8:32 AM EDT 03/17/2017 12:15 PM EDT us Jessica Cortes MD CHEMISTRY ORDERABLES Siobhan l Result Performing Organization Address [facility] [place] [address] * SEDIMENTATION RATE AUTOMATED (03/17/2017 8:32 AM EDT) Pathologist [facility] Sed Rate 10 0 - 20 mm/hr [facility] Blood specimen (specimen) UPPER LIMB STRUCTURE / Unknown 03/17/2017 8:32 AM EDT 03/17/2017 12:15 PM EDT Jessica Cortes MD HEMATOLOGY ORDERABLES Fin al Result Performing Organization Address [facility] [place] [address] * COMPREHENSIVE METABOLIC PANEL (12/13/2016 3:37 PM EDT) Pathologist [facility] Sodium 140 136 - 145 mmol/L [facility] Potassium 3.7 3.5 - 5.0 mmol/L [facility] Chloride 100 98 - 107 mmol/L [facility] Total CO2 27 22 - 29 mmol/L [facility] Anion Gap 13 7 - 16 mmol/L [facility] Calcium 9.6 8.6 - 10.2 mg/dL [facility] Glucose Lvl 78 74 - 100 mg/dL [facility] BUN 13 6 - 20 mg/dL [facility] Creatinine 0.75 0.51 - 1.30 mg/dL [facility] Albumin 4.3 3.5 - 5.2 gm/dL [facility] Total Protein 7.2 6.4 - 8.3 gm/dL [facility] Bili Total 0.2 0.1 - 1.3 mg/dL [facility] AST 17 <=40 IU/L [facility] ALT 8 <=41 IU/L [facility] Alk Phos 97 35 - 104 IU/L [facility] GFR Afr Am >60 [facility] GFR Non Afr Am >60 [facility] Blood specimen (specimen) UPPER LIMB STRUCTURE / Unknown 12/13/2016 3:37 PM EDT 12/13/2016 5:32 PM EDT Jessica Cortes MD CHEMISTRY ORDERABLES Edit ed Result - Final [facility] [address] [place] [address] * CBC WITH AUTO DIFF (12/13/2016 3:37 PM EDT) Pathologist [facility] WBC 9.0 4.0 - 11.0 x10(3)/mcL [facility] RBC 4.60 3.80 - 5.10 x10(6)/mcL [facility] Hgb 13.6 12.0 - 15.6 gm/dL [facility] Hct 41.3 35.7 - 45.9 % [facility] MCV 89.8 82.5 - 99.8 fL [facility] MCH 29.7 27.0 - 34.3 pg [facility] MCHC 33.1 32.1 - 35.3 gm/dL [facility] RDW 13.7 11.5 - 15.0 % [facility] Platelet 270 144 - 423 x10(3)/mcL [facility] MPV 8.7 6.8 - 10.8 fL [facility] Blood specimen (specimen) UPPER LIMB STRUCTURE / Unknown 12/13/2016 3:37 PM EDT 12/13/2016 5:31 PM EDT Jessica Cortes MD HEMATOLOGY ORDERABLES Fin al Result Performing Organization Address City/[facility]/ZIP Co de Phone Number [facility] [address] [place] [address] * C-REACTIVE PROTEIN (12/13/2016 3:37 PM EDT) Pathologist [facility] CRP 2.60 <=5.00 mg/L [facility] Blood specimen (specimen) UPPER LIMB STRUCTURE / Unknown 12/13/2016 3:37 PM EDT 12/13/2016 5:32 PM EDT Jessica Cortes MD CHEMISTRY ORDERABLES Siobhan l Result Performing Organization Address City/[facility]/[place] [address] * SEDIMENTATION RATE AUTOMATED (12/13/2016 3:37 PM EDT) [facility] Sed Rate 14 0 - 20 mm/hr [facility] Blood specimen (specimen) UPPER LIMB STRUCTURE / Unknown 12/13/2016 3:37 PM EDT 12/13/2016 5:31 PM EDT Jessica Cortes MD HEMATOLOGY ORDERABLES Fin al Result Performing Organization Address [facility] [place] [address] * (ABNORMAL) COMPREHENSIVE METABOLIC PANEL (07/29/2016 10:40 AM EDT) [facility] Sodium 140 136 - 145 mmol/L [facility] Potassium 3.2(L) 3.5 - 5.0 mmol/L [facility] Chloride 100 98 - 107 mmol/L [facility] Total CO2 26 22 - 29 mmol/L [facility] Anion Gap 14 7 - 16 mmol/L [facility] Calcium 9.4 8.6 - 10.2 mg/dL [facility] Glucose Lvl 58(L) 74 - 100 mg/dL [facility] BUN 12 6 - 20 mg/dL [facility] Creatinine 0.81 0.51 - 1.30 mg/dL [facility] Albumin 4.4 3.5 - 5.2 gm/dL [facility] Total Protein 7.3 6.4 - 8.3 gm/dL [facility] Bili Total 0.4 0.1 - 1.3 mg/dL [facility] AST 15 <=40 IU/L [facility] ALT 10 <=41 IU/L [facility] Alk Phos 88 35 - 104 IU/L [facility] GFR Afr Am >60 [facility] GFR Non Afr Am >60 [facility] Blood specimen (specimen) UPPER LIMB STRUCTURE / Unknown 07/29/2016 10:40 AM EDT 07/29/2016 1:03 PM EDT Jessica Cortes MD CHEMISTRY ORDERABLES Edit ed [place] [address] * CBC WITH AUTO DIFF (07/29/2016 10:40 AM EDT) WBC 7.4 4.0 - 11.0 x10(3)/mcL [facility] RBC 4.76 3.80 - 5.10 x10(6)/mcL [facility] Hgb 14.2 12.0 - 15.6 gm/dL [facility] Hct 42.0 35.7 - 45.9 % [facility] MCV 88.3 82.5 - 99.8 fL [facility] MCH 29.9 27.0 - 34.3 pg [facility] MCHC 33.8 32.1 - 35.3 gm/dL [facility] RDW 13.4 11.5 - 15.0 % [facility] Platelet 281 144 - 423 x10(3)/mcL [facility] MPV 8.9 6.8 - 10.8 fL [facility] Blood specimen (specimen) UPPER LIMB STRUCTURE / Unknown 07/29/2016 10:40 AM EDT 07/29/2016 12:08 PM EDT Jessica Cortes MD HEMATOLOGY ORDERABLES [place] [address] * C-REACTIVE PROTEIN (07/29/2016 10:40 AM EDT) CRP 3.93 <=5.00 mg/L [facility] Blood specimen (specimen) UPPER LIMB STRUCTURE / Unknown 07/29/2016 10:40 AM EDT 07/29/2016 1:03 PM EDT Jessica Cortes MD CHEMISTRY ORDERABLES Siobhan l Result Performing Organization Address City/[facility]/ZIP Co de Phone Number [facility] [address] [place] [address] * SEDIMENTATION RATE AUTOMATED (07/29/2016 10:40 AM EDT) Pathologist [facility] Sed Rate 12 0 - 20 mm/hr [facility] Blood specimen (specimen) UPPER LIMB STRUCTURE / Unknown 07/29/2016 10:40 AM EDT 07/29/2016 12:08 PM EDT Jessica Cortes MD HEMATOLOGY ORDERABLES Fin al Result Performing Organization Address [facility] de Phone Number [facility] [address] [place] [address] documented in this encounter Visit Diagnoses Diagnosis 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 Therapeutic drug monitoring Encounter for therapeutic drug monitoring documented in this encounter Discontinued Medications Medication Sig Discontinue Reason Start Date End Da te methotrexate 2.5 mg tablet Take 2.5 mg by mouth once a week. DELETE-Duplicate 04/26/2016 etanercept (ENBREL) 50 mg/mL (0.98 mL) SubQ Syringe Subcutaneous (Inject under the skin) 50 mg once. DELETE-Duplicate 04/26/2016 folic acid (FOLVITE) 1 mg tablet Take by mouth daily. DELETE-Duplicate 04/26/2016 documented as of this encounter Care Teams Wine Steward/Stewardess Relationship Specialty Start Date End Date Julisa Kerr MD [address] [place] [address] PCP - General 02/22/11 Jessica Cortes MD 651 [facility] [address] [place] [address] Internal Medicine-Rheumatology 04/26/16 documented as of this encounter
--- OUTSIDE RECORDS SUMMARY | 2024-08-22 21:52 | XMS_ITS | Encounter Summary ---
Author Organization [place] [address] Care Team Providers Care Master Fisher Name Role Phone Julisa Kerr MD Primary Care Provider [phone] Jessica Cortes MD Unavailable [phone] Reason for Visit * Reason Onset Date Comments Medication Management 05/20/2016 Encounter Details Date Type Department Care Team (Late st Contact Info) Description 05/20/2016 Telephone [facility] 651 [facility] Building [address] [place] [phone] Jessica Cortes MD [address] [address] Medication Management Social History Tobacco Use Types [...] Telephone Encounter - Prema Mckenna RMA - 05/30/2016 12:42 PM EDT No return call. Message closed. * Telephone Encounter - Prema Mckenna RMA - 05/28/2016 2:40 PM EDT Left message to call * Telephone Encounter - Prema Mckenna RMA - 05/21/2016 12:58 PM EDT Left message to call * Telephone Encounter - Prema Mckenna RMA - 05/20/2016 3:34 PM EDT Left message to call * Telephone Encounter - Jessica Cortes MD - 05/20/2016 2:21 PM EDT Please advise the patient to try to split it and take half of the tablets in the morning, and half at night. It that does not help we could change it to injectable. * Telephone Encounter - Pream Mckenna RMA - 05/20/2016 1:13 PM EDT Pt calling stating that since restarting the MTX she has has severe nausea. She has not vomited, nor diarrhea. documented in this encounter Plan of Treatment Upcoming Encounters Date Type Department Care Team (Late st Contact Info) Description 08/31/2024 8:30 AM EST Appointment [facility] [address] [place] [address] 10/25/2024 10:45 AM EST Office Visit [facility] RHEUMATOLOGY [facility] [address] [place] [facility] [address] [place] [address] Jessica Cortes MD [address] [id number] 01/25/2025 9:00 AM EDT Appointment [place] [address] [place] [address] 05/09/2025 11:00 AM EDT [address]ment [address] [place] [address] 05/09/2025 11:15 AM EDT Appointment [address] [place] [address] Susana Garay MD [address] [place] [id number] documented as of this encounter Visit Diagnoses Not on filedocumented in this encounter Care Teams Master Fisher Relationship Specialty Start Date End Date Julisa Kerr MD [address] [place] [id number] PCP - General 02/22/11 Jessica Cortes MD [address] [address] Internal Medicine-Rheumatology 04/26/16 documented as of this encounter
--- OUTSIDE RECORDS SUMMARY | 2024-08-22 21:52 | XMS_ITS | Encounter Summary ---
Author Organization [facility] [place] [address] Care Team Providers Care Sludge Control Operator Name Role Phone Julisa Kerr MD Primary Care Provider [phone] Jessica Cortes MD Unavailable [phone] Reason for Visit * Reason Comments Annual Exam Rheumatoid Arthritis Elbow Pain Shoulder Pain Encounter Details Date Type Department Care Team (Late st Contact Info) Description 11/07/2016 1:30 PM EST Office Visit [facility] [address] [place] [phone] Julisa Kerr MD [address] [place] [address] Annual physical exam (Primary Dx); Rheumatoid arthritis involving multiple sites [...] Reading Time Taken Comments Blood Pressure 124/82 11/07/2016 1:42 PM EST Pulse - - Temperature 36.9 ??C (98.4 ??F) 11/07/2016 1:42 PM ES T Respiratory Rate - - Oxygen Saturation - - Inhaled Oxygen Concentration - - Weight 62.1 kg (137 lb) 11/07/2016 1:42 PM EST Height 158.8 cm (5' 2.5 ) 11/07/2016 1:42 PM EST Body Mass Index 24.66 11/07/2016 1:42 PM EST documented in this encounter Ordered Prescriptions Prescription Sig Dispense Quantity Refills Last Filled Start Date End Date gabapentin (NEURONTIN) 600 mg Oral TabletIndications:R heumatoid arthritis involving multiple sites with positive rheumatoid factor (HCC),Acute bilateral low back pain without sciatica Take 1 Tab by mouth nightly. 30 Tab 11/07/2016 06/23/2017 documented in this encounter Progress Notes * Julisa Kerr MD - 11/07/2016 1:30 PM EST Subjective Subjective Ms. Newsome is a 46 y.o. female here for an annual wellness physical exam. Annual Exam This is a new problem. The current episode started today. The problem occurs daily. The problem hasbeen unchanged. Associated symptoms include arthralgias, joint swelling and neck pain. Pertinent negatives include no abdominal pain, chest pain, congestion, fever, nausea, rash or vomiting. Rheumatoid Arthritis This is a chronic problem. The current episode started more than 1 year ago. The problem occurs constantly. The problem is unchanged. Pertinent negatives include no abdominal pain, chest pain or fever. Shoulder Pain The pain is present in the right shoulder and left shoulder. This is a recurrent problem. The current episode started 1 to 4 weeks ago. The problem occurs constantly. The problem has been unchanged. Pertinent negatives include no fever. Pt is here today for her arthritis pain, bilateral shoulder pain, and left elbow pain that has beenpresent for about 2 weeks. Patient Active Problem List Diagnosis ??? PRAVEEN (stress urinary incontinence, female) ??? Raynaud's phenomenon ??? Rheumatoid arthritis involving multiple sites with positive rheumatoid factor (HCC) Past Medical History Diagnosis Date ??? Arthritis Past Surgical History Procedure Laterality Date ??? Hysteroscopy ??? Vlad and bso 2001 Allergies Allergen Reactions ??? Mobic [Meloxicam] Hives Current Outpatient Prescriptions on File Prior to Visit Medication Sig Dispense Refill ??? albuterol (VENTOLIN HFA) 90 mcg/actuation Inhl HFA Aerosol Inhaler Inhale 2 Puffs into the lungs every 6 hours as needed for Wheezing. 1 Inhaler 3 ??? amitriptyline (ELAVIL) 25 mg Oral Tablet Take 1 Tab by mouth nightly. 30 Tab 2 ??? etanercept (ENBREL) 50 mg/mL (0.98 mL) SubQ Syringe Subcutaneous (Inject under the skin) 0.98 mL once a week. 4 Syringe 2 ??? fluticasone (FLONASE) 50 mcg/actuation Nasl [place], Suspension 1 [place] by Nasal route daily. 1 Bottle 2 ??? folic acid (FOLVITE) 1 mg Oral Tablet Take 1 Tab by mouth daily. 30 Tab 5 ??? Insulin Syringe-Needle U-100 (BD INSULIN SYRINGE) 1 mL 25 gauge x 5/8 Misc Syringe Use for MTXinjection once a week 100 Syringe 1 ??? methotrexate 2.5 mg Oral Tablet Take 6 Tabs by mouth once a week. 26 Tab 2 ??? methotrexate 25 mg/mL Inj Solution Subcutaneous (Inject under the skin) 0.6 mL every 7 days. 4 mL 1 No current facility-administered medications on file prior to visit. Social Social History Social History ??? Marital status: Spouse name: N/A ??? Number of children: N/A ??? Years of education: N/A Social History Main Topics ??? Smoking status: Never Smoker ??? Smokeless tobacco: Never Used ??? Alcohol use No ??? Drug use: None ??? Sexual activity: Yes Other Topics Concern ??? None Social History Narrative Family History Problem Relation Age of Onset ??? Arthritis Father ??? Arthritis Paternal Grandmother Immunization History Administered Date(s) Administered ??? PPD Test 05/13/2013, 07/21/2014, 09/18/2015 Health Maintenance Topic Date Due ??? Annual Wellness Exam 07/20/2015 ??? Influenza Vaccine (1) 05/30/2016 ??? Cervical Cancer Screening 07/20/2017 Health Maintenance Due Topic Date Due ??? Annual Wellness Exam 07/20/2015 ??? Influenza Vaccine (1) 05/30/2016 Patient Care Team: Julisa Kerr MD as PCP - General Jessica Cortes MD (Internal Medicine-Rheumatology) Review of Systems Constitutional: Negative for fever. HENT: Negative for congestion and ear pain. Eyes: Negative. Respiratory: Negative for chest tightness, shortness of breath and wheezing. Cardiovascular: Negative. Negative for chest pain and palpitations. Gastrointestinal: Negative for abdominal pain, diarrhea, nausea and vomiting. Musculoskeletal: Positive for arthralgias, arthritis, back pain, joint swelling and neck pain. Skin: Negative for rash and wound. Neurological: Negative. Psychiatric/Behavioral: Negative for sleep disturbance. Objective Objective Visit Vitals ??? BP 124/82 ??? Temp 98.4 ??F (36.9 ??C) (Tympanic) ??? Ht 5' 2.5 (1.588 m) ??? Wt 137 lb (62.1 kg) ??? BMI 24.66 kg/m2 Physical Exam Constitutional: She appears well-developed and well-nourished. No distress. HENT: Head: Normocephalic and atraumatic. Mouth/Throat: Oropharynx is clear and moist. Eyes: Conjunctivae are normal. Neck: Neck supple. Cardiovascular: Normal rate, regular rhythm and normal heart sounds. No murmur heard. Pulmonary/Chest: Effort normal and breath sounds normal. No respiratory distress. She has no wheezes. Abdominal: Soft. There is no tenderness. Musculoskeletal: She exhibits edema and tenderness. TTP L2-L4 with paraspinal spasm Left wrist rheumatoid nodule. Hand deformities bilateral. Lymphadenopathy: She has no cervical adenopathy. Neurological: She is alert. Skin: Skin is warm. No rash noted. Psychiatric: She has a normal mood and affect. Nursing note and vitals reviewed. Lab Results Component Value Date WBC 7.4 07/29/2016 HGB 14.2 07/29/2016 HCT 42.0 07/29/2016 PLT 281 07/29/2016 ALT 10 07/29/2016 AST 15 07/29/2016 NA 140 07/29/2016 K 3.2 (L) 07/29/2016 CL 100 07/29/2016 CREATININE 0.81 07/29/2016 BUN 12 07/29/2016 CO2 26 07/29/2016 TSH 1.350 09/20/2015 GLU 58 (L) 07/29/2016 HGBA1C 5.1 09/20/2015 TSHREFLEX 1.380 04/22/2016 Assessment and Plan Yuliet was seen today for annual exam, rheumatoid arthritis, elbow pain and shoulder pain. Diagnoses and all orders for this visit: Annual physical exam Rheumatoid arthritis involving multiple sites with positive rheumatoid factor (HCC) - gabapentin (NEURONTIN) 600 mg Oral Tablet; Take 1 Tab by mouth nightly. - methylPREDNISolone acetate (DEPO-MEDROL) injection 120 mg; Inject 1.5 mL into the muscle once. Acute bilateral low back pain without sciatica - gabapentin (NEURONTIN) 600 mg Oral Tablet; Take 1 Tab by mouth nightly. - methylPREDNISolone acetate (DEPO-MEDROL) injection 120 mg; Inject 1.5 mL into the muscle once. She is aware of the risks of the steroid. She is miserable and wants to take it. Return if symptoms worsen or fail to improve. Above problems were discussed with patient and [...] given on the AVS for today's visit. Patient was educated regarding the diagnosis, medication/treatment, goals, self- management tools and instructions based on their care plan. They verbalized full understanding of the education given on the After Visit Summary [AVS] for today's visit. They received a copy of the AVS in writing. A new medicine was not prescribed on this visit. Julisa Kerr MD documented in this encounter Plan of Treatment Upcoming Encounters Date Type Department Care Team (Late st Contact Info) Description 08/31/2024 8:30 AM EST Appointment [facility] [address] [place] [address] 10/25/2024 10:45 AM EST Office Visit [facility] [address] [place] [address] Jessica Cortes MD [address] [facility] [address] [place] [address] 01/25/2025 9:00 AM EDT Appointment [address] [place] [address] 05/09/2025 11:00 AM EDT Appointment [address] [place] [address] 05/09/2025 11:15 AM EDT Appointment [place] [address] [place] [address] Susana Garay MD [address] [facility] [address] [place] [id number] documented as of this encounter Visit Diagnoses Diagnosis Annual physical exam- Primary Routine general medical examination at a health care facility Rheumatoid arthritis 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 Rheumatoid arthritis involving multiple sites with positive rheumatoid factor (HCC) 2. Acute bilateral low back pain without sciaticaIndications:Rhe umatoid arthritis involving multiple sites with positive rheumatoid factor (HCC),Acute bilateral low back pain without sciatica Given 11/07/2016 2:24 PM EST 120 mg Left Upper Outer Quadrant documented in this encounter Care Teams Sludge Control Operator Relationship Specialty Start Date End Date Julisa Kerr MD [address] [place] [address] PCP - General 02/22/11 Jessica Cortes MD [address] [facility] [address] [place] [address] Internal Medicine-Rheumatology 04/26/16 documented as of this encounter
--- OUTSIDE RECORDS SUMMARY | 2024-08-22 21:52 | XMS_ITS | Encounter Summary ---
Author Organization [place] [address] Care Team Providers Care Event Coordinator Marketing And Sales Name Role Phone Julisa Kerr MD Primary Care Provider [phone] Jessica Cortes MD Unavailable [phone] Reason for Visit * Reason Comments Rheumatoid Arthritis follow up * Consultation (Routine) - Closed Specialty Diagnoses / Procedures Referred By Contac t Referred To Contact Internal Medicine-Rheumatology / Rheumatology Diagnoses RA (rheumatoid arthritis) (HCC) f/u 3 mo RA Procedures FOLLOW UP Julisa Kerr MD Phone: tel: fax: Jessica Cortes MD [address] [address] Phone: tel: fax: Referral ID Status Reason Start Date Expiration Date Visits Re quested Visits Authorized [id number] Closed 11/04/2016 11/04/2017 99 99 Encounter Details Date Type Department Care Team (Latest Contact Info) Description 12/13/2016 4:15 PM EDT Office Visit [facility] [address] [phone] Jessica Cortes MD [address] [place] [id number] Rheumatoid arthritis involving multiple sites with positive rheumatoid factor (HCC) (Primary Dx); Raynaud's phenomenon without gangrene; Positive BRET (antinuclear antibody); Neck pain; Osteopenia; Immunocompromised patient (HCC); Therapeutic drug monitoring Social [...] Reading Time Taken Comments Blood Pressure 122/84 12/13/2016 3:13 PM EDT Pulse 92 12/13/2016 3:13 PM EDT Temperature - - Respiratory Rate 20 12/13/2016 3:13 PM EDT Oxygen Saturation - - Inhaled Oxygen Concentration - - Weight 64 kg (141 lb) 12/13/2016 3:13 PM EDT Height 158.8 cm (5' 2.5 ) 12/13/2016 3:13 PM EDT Body Mass Index 25.38 12/13/2016 3:13 PM EDT documented in this encounter Ordered Prescriptions Prescription Sig Dispense Quantity Refills Last Filled Start Date End Date methotrexate 25 mg/mL Inj SolutionIndicatio ns:Rheumatoid arthritis involving multiple sites with positive rheumatoid factor (HCC) Subcutaneous (Inject under the skin) 0.6 mL every 7 days. 4 mL 1 12/13/2016 7 documented in this encounter Progress Notes * Jessica Cortes MD - 12/13/2016 4:15 PM EDT Subjective Subjective: Patient ID: Yuliet Newsome is a 46 y.o. female. Chief Complaint Patient presents with ??? Rheumatoid Arthritis follow up HPI The patient comes in for follow up regarding RA. Symptoms started in 2002. Seen by Massotherapist, Dr. Astorga. She was seen in [facility] but have not seen her [...] came back at 20- low disease activity. Has been flaring up. She run out of the medication. Has been off of MTX since the beginning of the year and off of Enbrel since the beginning of October. Joint pian in the hands, wrists, knees and feet. She continues to have neck and lower back pain. Left thumb swelled yesterday. Pain on a scale 0-10: 6- 8/10 Type of pain: ache Morning stiffness:1 hour Raynaud's: worsened in the cold weather. Current [...] of Systems Constitutional: Positive for fatigue. Weight gain- 22 pounds in the last year. HENT: Positive for congestion and mouth sores. Dry mouth Gastrointestinal: Positive for abdominal pain and nausea. Musculoskeletal: Positive for arthralgias, joint swelling, myalgias and neck pain. Skin: Positive for color change. Neurological: Positive for dizziness, weakness and headaches. Hematological: Bruises/bleeds easily. Psychiatric/Behavioral: Positive for sleep disturbance. Depression All other systems reviewed and are negative. Objective Objective: Vitals: 12/13/16 1513 BP: 122/84 BP Location: Left arm Patient Position: Sitting Pulse: 92 Resp: 20 Weight: 141 lb (64 kg) Height: 5' 2.5 (1.588 m) Body mass index is 25.38 kg/(m^2). Physical Exam Constitutional: She is oriented to person, place, and time. She appears well- developed and well-nourished. HENT: Head: Normocephalic and atraumatic. Eyes: Conjunctivae are normal. Pupils are equal, round, and reactive to light. Neck: Normal range of motion. Musculoskeletal: No tenderness to the spinal processes or paraspinal muscles. ROM of the shoulders painful in abduction. Crepitus in the right shoulder. Tenderness to both wrists, 2nd, 3rd MCP bilaterally. Synovitis in the left wrist, 2nd, 3rd MCP on right and 2nd MCP on left. ROM of the knees, ankles intact, no effusion. Tenderness to the MTP joints bilaterally. Neurological: She is alert and oriented to person, place, and time. No cranial nerve deficit. Muscle strength 5/5 upper and lower extremities. Skin: Skin is warm. No rash noted. Psychiatric: She has a normal mood and affect. Vitals reviewed. Rapid 3: 16.7 Lab Results Component Value Date WBC 7.4 07/29/2016 HGB 14.2 07/29/2016 HCT 42.0 07/29/2016 MCV 88.3 07/29/2016 PLT 281 07/29/2016 Chemistry Component Value Date/Time NA 140 07/29/2016 1040 K 3.2 (L) 07/29/2016 1040 CL 100 07/29/2016 1040 CO2 26 07/29/2016 1040 BUN 12 07/29/2016 1040 CREATININE 0.81 07/29/2016 1040 GLU 58 (L) 07/29/2016 1040 Component Value Date/Time CALCIUM 9.4 07/29/2016 1040 ALKPHOS 88 07/29/2016 1040 AST 15 07/29/2016 1040 ALT 10 07/29/2016 1040 Lab Results Component Value Date CRP 3.93 07/29/2016 Lab Results Component Value Date SEDRATE 12 07/29/2016 Assessment and Plan: Yuliet was seen today for rheumatoid arthritis. Diagnoses and all orders for this visit: Rheumatoid arthritis involving multiple sites, unspecified rheumatoid factor presence (HCC) Dx in [address] Astorga in [facility] received and reviewed. The patient was seen in 05/11/13 for initial evaluation. Presented with polyarticular joint involvement- large and small joints- shoulders, elbows, knees, wrists, knuckles, toes. Per records she had low titer RF, negative CCP, (+) BRET centromere pattern > 8.0 with negative SSA/SSB, EYEGLASS INSPECTOR, Scl 70, dsDNA Records indicate she used [...] of the feet from 03/2016 were normal. Recurrent flares of joint pain, swelling even while on treatment. At this point mild synovitis in the wrists and 2nd, 3rd MCP on right. MTX 15 mg weekly ( since 2012), changed to injectable in 06/2016 for better efficacy, worked betterbut she run out 3 months ago ( 09/2016). Will restart MTX 15 mg today. Enbrel 50 mg sq q week ( since 2012), run out 2 months ago. She will have it done at PCP office Will restart Enbrel once PPD done and negative Last Vectra DA 20 - low disease activity - Pneumococcal Conjugate Vaccine 13 Valent - methotrexate 25 mg/mL Inj Solution; Subcutaneous [...] changes, no evidence of atlanto axial disease Regular stretches, heat, ice, massage Osteop Surgical menopause in 2000 Hx of RA, frequent prednisone use Bone density ( 05/03/16) T score -2.2 at the right femoral neck FRAX score - risk for fracture is low. Vitamin D daily Weight bearing exercises regularly At this point no other treatment needed Immunocompromised patient (HCC) Due to immunosuppression Discussed the need to Prevnar 13 and Pneumovax 23 - Pneumococcal Conjugate Vaccine 13 Valent Therapeutic drug monitoring Last PPD 08/2015, overdue for one, she will have it done at PCP office Will restart Enbrel once PPD done and negative Labs today and every 6-8 weeks while on MTX - Pneumococcal Conjugate Vaccine 13 Valent Return in about 3 months (around 03/15/2017). documented in this encounter Plan of Treatment Upcoming Encounters Date Type Department Care Team (Late st Contact Info) Description 08/31/2024 8:30 AM EST Appointment [place] [address] [place] [address] 10/25/2024 10:45 AM EST Office Visit [facility] [address] [place] [address] Jessica Cortes MD [address] [facility] [address] [place] [address] 01/25/2025 9:00 AM EDT Appointment [place] [address] [place] [address] 05/09/2025 11:00 AM EDT Appointment [place] [address] [place] [address] 05/09/2025 11:15 AM EDT Appointment [place] [address] [place] [address] Susana Garay MD [address] [place] [address] [place] [address] documented as of this encounter Visit Diagnoses Diagnosis 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 Raynaud's phenomenon without gangrene Positive BRET (antinuclear antibody) Other and unspecified nonspecific immunological findings Neck pain Cervicalgia Osteopenia Disorder of bone and cartilage, unspecified Immunocompromised patient (HCC) Unspecified immunity deficiency Therapeutic drug monitoring Encounter for therapeutic drug monitoring documented in this encounter Discontinued Medications Medication Sig Discontinue Reason Start Date End Da te methotrexate 25 mg/mL Inj SolutionIndications: Rheumatoid arthritis involving multiple sites with positive rheumatoid factor (HCC) Subcutaneous (Inject under the skin) 0.6 mL every 7 days. Reorder 07/29/2016 12/13/2016 methotrexate 2.5 mg Oral TabletIndications:Rh eumatoid arthritis involving multiple sites with positive rheumatoid factor (HCC) Take 6 Tabs by mouth once a week. DELETE-Therapy completed 04/26/2016 12/13/2016 documented as of this encounter Orders Immunization/Injection Count Last Ordered Date First Ordered Date PNEUM CONJ VAC13 1 12/13/2016 documented in this encounter Care Teams Event Coordinator Marketing And Sales Relationship Specialty Start Date End Date Julisa Kerr MD [address] [place] [address] PCP - General 02/22/11 Jessica Cortes MD [address] [address] Internal Medicine-Rheumatology 04/26/16 documented as of this encounter
--- OUTSIDE RECORDS SUMMARY | 2024-08-22 21:52 | XMS_ITS | Encounter Summary ---
Author [place] [address] Care Team Providers Care Highway Painter Helper Name Role Phone Julisa Kerr MD Primary Care Provider [phone] Jessica Cortes MD Unavailable [phone] Encounter Details Date Type Department Care Team (Latest Contact Info) Description 10/06/2017 3:54 PM EST - 10/06/2017 11:59 PM [facility] Hospital Encounter [facility] [address] [address] Rheumatoid arthritis involving multiple [...] 8:30 AM EST Appointment [facility] Cancer [address] [address] [place] [address] 10/25/2024 10:45 AM EST Office Visit [facility] RHEUMATOLOGY [facility] [address] [place] [phone] Jessica Cortes MD [address] [place] [address] 01/25/2025 9:00 AM EDT Appointment [place] [place] [address] 05/09/2025 11:00 AM EDT Appointment [address] [place] [address] 05/09/2025 11:15 AM EDT Appointment [address] [address] [place] [address] Susana Garay MD [address] [place] [address] [place] [address] documented as of this encounter Goals Goal Patient Goal Type Associated Problems Recent Progress Patient-Stated? Author Maintain a healthy diet, exercise regularly and maintain an ideal body weight General Porsche Ashley RN documented as of this encounter Procedures Procedure Name Priority Date/Time Associated Diagnosis Comments SEDIMENTATION RATE AUTOMATED Routine 10/06/2017 3:54 PM EST Rheumatoid arthritis involving multiple sites with positive rheumatoid factor (HCC) CBC WITH DIFF Routine 10/06/2017 3:54 PM EST Rheumatoid arthritis involving multiple sites with positive rheumatoid factor (HCC) Therapeutic drug monitoring C-REACTIVE PROTEIN Routine 10/06/2017 3: 54 PM EST Rheumatoid arthritis involving multiple sites with positive rheumatoid factor (HCC) COMPREHENSIVE METABOLIC PANEL Routine 10/06/2017 3:54 PM EST Rheumatoid arthritis involving multiple sites with positive rheumatoid factor (HCC) Therapeutic drug monitoring documented in this encounter Results * C-REACTIVE PROTEIN (10/06/2017 3:54 PM EST) [facility] CRP 1.12 <=5.00 mg/L 10/06/2017 6:37 PM EST [facility] Blood UPPER LIMB STRUCTURE / Unknown Venipuncture / Unknown 10/06/2017 3:54 PM EST 10/06/2017 3:54 PM EST us Jessica Cortes MD CHEMISTRY ORDERABLES Siobhan l Result Performing Organization Address [facility]/[place] [address] * SEDIMENTATION RATE AUTOMATED (10/06/2017 3:54 PM EST) [facility] Sed Rate 13 0 - 20 mm/hr 10/06/2017 6:25 PM EST [facility] Blood UPPER LIMB STRUCTURE / Unknown Venipuncture / Unknown 10/06/2017 3:54 PM EST 10/06/2017 3:54 PM EST us Jessica Cortes MD HEMATOLOGY ORDERABLES Fin al Result Performing Organization Address [facility]/[place] [address] * COMPREHENSIVE METABOLIC PANEL (10/06/2017 3:54 PM EST) [facility] Sodium 140 136 - 145 mmol/L 10/06/2017 6:37 PM EST [facility] Potassium 4.2 3.5 - 5.0 mmol/L 10/06/2017 6:37 PM EST [facility] Chloride 101 98 - 107 mmol/L 10/06/2017 6:37 PM EST [facility] Total CO2 23 22 - 29 mmol/L 10/06/2017 6:37 PM EST [facility] Anion Gap 16 7 - 16 mmol/L 10/06/2017 6:37 PM [facility] Calcium 9.5 8.6 - 10.2 mg/dL 10/06/2017 6:37 PM [facility] Glucose Lvl 95 74 - 100 mg/dL 10/06/2017 6:37 PM [facility] BUN 10 6 - 20 mg/dL 10/06/2017 6:37 PM [facility] Creatinine 0.69 0.51 - 1.30 mg/dL 10/06/2017 6:37 PM [facility] Albumin 4.4 3.5 - 5.2 gm/dL 10/06/2017 6:37 PM [facility] Total Protein 7.6 6.4 - 8.3 gm/dL 10/06/2017 6:37 PM [facility] Bili Total 0.3 0.1 - 1.3 mg/dL 10/06/2017 6:37 PM [facility] ALT 17 <=41 IU/L 10/06/2017 6:37 PM [facility] AST 23 <=40 IU/L 10/06/2017 6:37 PM [facility] Alk Phos 98 35 - 104 IU/L 10/06/2017 6:37 PM [facility] GFR Afr Am 121 mL/min/1.7 3 m2 10/06/2017 6:37 PM [facility] GFR Non Afr Am 105 mL/min/1.7 3 m2 10/06/2017 6:37 PM [facility] Comment: GFR Afr Am and GFR Non Afr Am calculated using CKD-EPI equation. ?? GFR Category ?GFR(mL/min/1.73 m??) ? Kidney Function G1 ?>=90 ?Normal or high G2 ?60-89 ? Mildly decreased G3a ? 45-59 ? Mildly to moderately decreased G3b ? 30-44 ? Moderately to severely decreased G4 ?15-29 ? Severely decreased G5 ?<15 ? Kidney Failure Blood UPPER LIMB STRUCTURE / Unknown Venipuncture / Unknown 10/06/2017 3:54 PM EST 10/06/2017 3:54 PM EST us Jessica Cortes MD CHEMISTRY ORDERABLES Siobhan l Result [facility] [address] [place] [address] * CBC WITH AUTO DIFF (10/06/2017 3:54 PM EST) WBC 7.3 4.0 - 11.0 x10(3)/mcL 10/06/2017 6:06 PM EST [facility] RBC 4.87 3.80 - 5.10 x10(6)/mcL 10/06/2017 6:06 PM EST [facility] Hgb 14.8 12.0 - 15.6 gm/dL 10/06/2017 6:06 PM EST [facility] Hct 43.8 35.7 - 45.9 % 10/06/2017 6:06 PM EST [facility] MCV 90.0 82.5 - 99.8 fL 10/06/2017 6:06 PM EST [facility] MCH 30.4 27.0 - 34.3 pg 10/06/2017 6:06 PM EST [facility] MCHC 33.8 32.1 - 35.3 gm/dL 10/06/2017 6:06 PM EST [facility] RDW 13.8 11.5 - 15.0 % 10/06/2017 6:06 PM EST [facility] Platelet 265 144 - 423 x10(3)/[facility] 10/06/2017 6:06 PM EST [facility] MPV 8.9 6.8 - 10.8 fL 10/06/2017 6:06 PM EST [facility] Neut Percent 48.5 % 10/06/2017 6:06 PM EST [facility] Lymph Percent 36.3 % 10/06/2017 6:06 PM EST [facility] [place] Percent 11.0 % 10/06/2017 6:06 PM EST [facility] Eos Percent 3.6 % 10/06/2017 6:06 PM EST [facility] Baso Percent 0.6 % 10/06/2017 6:06 PM EST [facility] Neut # 3.5 1.8 - 7.7 x10(3)/[facility] 10/06/2017 6:06 PM EST [facility] Lymph # 2.6 0.6 - 4.8 x10(3)/[facility] 10/06/2017 6:06 PM EST [facility] [place] # 0.8 0.0 - 1.3 x10(3)/[facility] 10/06/2017 6:06 PM EST [facility] Eos# 0.3 0.0 - 0.5 x10(3)/[facility] 10/06/2017 6:06 PM [facility] Baso # 0.0 0.0 - 0.2 x10(3)/[facility] 10/06/2017 6:06 PM [facility] Blood UPPER LIMB STRUCTURE / Unknown Venipuncture / Unknown 10/06/2017 3:54 PM EST 10/06/2017 3:54 PM EST us Jessica Cortes MD HEMATOLOGY ORDERABLES Fin al Result [facility] [address] [place] [address] documented in this encounter Visit Diagnoses Diagnosis Rheumatoid arthritis involving multiple sites with positive rheumatoid factor (HCC) Therapeutic drug monitoring Encounter for therapeutic drug monitoring documented in this encounter Care Teams Highway Painter Helper Relationship Specialty Start Date End Date Julisa Kerr MD [address] [id number] PCP - General 02/22/11 Jessica Cortes MD [address] [id number] Internal Medicine-Rheumatology 04/26/16 documented as of this encounter
--- OUTSIDE RECORDS SUMMARY | 2024-08-22 21:52 | XMS_ITS | Encounter Summary ---
[place] [address] Care Team Providers Care Nurse Discharge Planner Name Role Phone Julisa Kerr MD Primary Care Provider [phone] Jessica Cortes MD Unavailable [phone] Encounter Details Date Type Department Care Team (Latest Contact Info) Description 07/29/2016 10:40 AM EDT - 07/29/2016 11:59 PM EDT Hospital Encounter [facility] [address] [phone] Rheumatoid arthritis involving multiple sites [...] Appointment [facility] Cancer Care [address] [address] 10/25/2024 10:45 AM EST Office Visit [facility] RHEUMATOLOGY [facility] [address] [place] [address] Jessica Cortes MD [address] [facility] [address] [place] [address] 01/25/2025 9:[address] [facility] Cancer [address] [address] [place] [address] 05/09/2025 11:00 AM EDT Appointment [place] [address] [place] [address] 05/09/2025 11:15 AM EDT Appointment [place] [address] [place] [address] Susana Garay MD [address] [place] [address] [place] [address] Scheduled Orders Name Type Priority Associated Diagnoses Orde r Schedule OP VENIPUNCTURE CHARGE Lab Timed Rheumatoid arthritis involving multiple sites with positive rheumatoid factor (HCC) Therapeutic drug monitoring One Time for 1 Occurrences starting 07/29/2016 until 07/29/2016 documented as of this encounter Procedures Procedure Name Priority Date/Time Associated Diagnosis Comments DIFFERENTIAL Routine 07/29/2016 10:40 AM EDT SEDIMENTATION RATE AUTOMATED Routine 07/29/2016 10:40 AM EDT Rheumatoid arthritis involving multiple sites with positive rheumatoid factor (HCC) Therapeutic drug monitoring CBC WITH DIFF Routine 07/29/2016 10:40 AM EDT Rheumatoid arthritis involving multiple sites with positive rheumatoid factor (HCC) Therapeutic drug monitoring C-REACTIVE PROTEIN Routine 07/29/2016 10 :40 AM EDT Rheumatoid arthritis involving multiple sites with positive rheumatoid factor (HCC) Therapeutic drug monitoring COMPREHENSIVE METABOLIC PANEL Routine 07/29/2016 10:40 AM EDT Rheumatoid arthritis involving multiple sites with positive rheumatoid factor (HCC) Therapeutic drug monitoring documented in this encounter Results * DIFFERENTIAL (07/29/2016 10:40 AM EDT) Neut Percent 55.9 % [facility] Lymph Percent 28.0 % [facility] [place] Percent 12.0 % [facility] Eos Percent 3.5 % [facility] Baso Percent 0.6 % [facility] Neut# 4.1 1.8 - 7.7 x10(3)/mcL [facility] Lymph# 2.1 0.6 - 4.8 x10(3)/mcL [facility] Scre[place]# 0.9 0.0 - 1.3 x10(3)/mcL [facility] Eos# 0.3 0.0 - 0.5 x10(3)/[facility] Baso# 0.0 0.0 - 0.2 x10(3)/[facility] Blood specimen (specimen) 07/29/2016 10:40 AM EDT 07/29/2016 12:08 PM EDT us Jessica Cortes MD HEMATOLOGY ORDERABLES Fin al Result [facility] [address] [place] [address] * CBC WITH AUTO DIFF (07/29/2016 10:40 AM EDT) Pathologist [facility] WBC 7.4 4.0 - 11.0 x10(3)/mcL [facility] RBC 4.76 3.80 - 5.10 x10(6)/mcL [facility] Hgb 14.2 12.0 - 15.6 gm/dL [facility] Hct 42.0 35.7 - 45.9 % [facility] MCV 88.3 82.5 - 99.8 fL [facility] MCH 29.9 27.0 - 34.3 pg [facility] MCHC 33.8 32.1 - 35.3 gm/dL [facility] RDW 13.4 11.5 - 15.0 % [facility] Platelet 281 144 - 423 x10(3)/mcL [facility] MPV 8.9 6.8 - 10.8 fL [facility] Blood specimen (specimen) UPPER LIMB STRUCTURE / Unknown 07/29/2016 10:40 AM EDT 07/29/2016 12:08 PM EDT Jessica Cortes MD HEMATOLOGY ORDERABLES Fin al Result [facility] [address] [place] [address] * (ABNORMAL) COMPREHENSIVE METABOLIC PANEL (07/29/2016 10:40 AM EDT) Sodium 140 136 - 145 mmol/L [facility] Potassium 3.2(L) 3.5 - 5.0 mmol/L [facility] Chloride 100 98 - 107 mmol/L [facility] Total CO2 26 22 - 29 mmol/L [facility] Anion Gap 14 7 - 16 mmol/L [facility] Calcium 9.4 8.6 - 10.2 mg/dL [facility] Glucose Lvl 58(L) 74 - 100 mg/dL [facility] BUN 12 6 - 20 mg/dL [facility] Creatinine 0.81 0.51 - 1.30 mg/dL [facility] Albumin 4.4 3.5 - 5.2 gm/dL [facility] Total Protein 7.3 6.4 - 8.3 gm/dL [facility] Bili Total 0.4 0.1 - 1.3 mg/dL [facility] AST 15 <=40 IU/L [facility] ALT 10 <=41 IU/L [facility] Alk Phos 88 35 - 104 IU/L [facility] GFR Afr Am >60 [facility] OOD [facility] GFR Non Afr Am >60 [facility] Blood specimen (specimen) UPPER LIMB STRUCTURE / Unknown 07/29/2016 10:40 AM EDT 07/29/2016 1:03 PM EDT Jessica Cortes MD CHEMISTRY ORDERABLES Edit ed Result - Final Performing Organization Address City/[facility]/ZIP Co de Phone Number [facility] [address] [place] [address] * C-REACTIVE PROTEIN (07/29/2016 10:40 AM EDT) CRP 3.93 <=5.00 mg/L [facility] Blood specimen (specimen) UPPER LIMB STRUCTURE / Unknown 07/29/2016 10:40 AM EDT 07/29/2016 1:03 PM EDT Jessica Cortes MD CHEMISTRY ORDERABLES Siobhan l Result Performing Organization Address [facility] [place] [address] * SEDIMENTATION RATE AUTOMATED (07/29/2016 10:40 AM EDT) Sed Rate 12 0 - 20 mm/hr [facility] Blood specimen (specimen) UPPER LIMB STRUCTURE / Unknown 07/29/2016 10:40 AM EDT 07/29/2016 12:08 PM EDT Jessica Cortes MD HEMATOLOGY ORDERABLES Fin al Result Performing Organization Address [facility] [place] [address] documented in this encounter Visit Diagnoses Diagnosis Rheumatoid arthritis involving multiple sites with positive rheumatoid factor (HCC) Therapeutic drug monitoring Encounter for therapeutic drug monitoring documented in this encounter Care Teams Nurse Discharge Planner Relationship Specialty Start Date End Date Julisa Kerr MD [address] [place] [address] PCP - General 02/22/11 Jessica Cortes MD [address] [id number] Internal Medicine-Rheumatology 04/26/16 documented as of this encounter
--- OUTSIDE RECORDS SUMMARY | 2024-08-22 21:52 | XMS_ITS | Encounter Summary ---
Author Organization [place] [address] Care Team Providers Care Administrative Assistant Coordinator Name Role Phone Julisa Kerr MD Primary Care Provider [phone] Jessica Cortes MD Unavailable [phone] Reason for Visit * Reason Comments Follow-up 3mo Rheumatoid Arthritis Raynaud's Syndrome Osteopenia * Consultation (Routine) - Closed Specialty Diagnoses / Procedures Referred By Contac t Referred To Contact Internal Medicine-Rheumatology / Rheumatology Diagnoses RA (rheumatoid arthritis) (HCC) f/u 3 mo RA Procedures FOLLOW UP Julisa Kerr MD Phone: tel: fax: Jessica Cortes MD [address] [address] Phone: tel: fax: Referral ID Status Reason Start Date Expiration Date Visits Re quested Visits Authorized [id number] Closed 11/04/2016 11/04/2017 99 [phone] Encounter Details Date Type Department Care Team (Latest Contact Info) Description 06/23/2017 10:00 AM EDT Office Visit SEP Rheumatology [facility] [address] [address] Jessica Cortes MD [address] [address] Rheumatoid arthritis involving multiple sites [...] Sign Reading Time Taken Comments Blood Pressure 124/80 06/23/2017 10:11 AM EDT Pulse 84 06/23/2017 10:11 AM EDT Temperature - - Respiratory Rate 16 06/23/2017 10:11 AM EDT Oxygen Saturation - - Inhaled Oxygen Concentration - - Weight 63.2 kg (139 lb 6.4 oz) 06/23/2017 10:11 AM EDT Height 158.8 cm (5' 2.5 ) 06/23/2017 10:11 AM ED T Body Mass Index 25.09 06/23/2017 10:11 AM EDT documented in this encounter Ordered Prescriptions Prescription Sig Dispense Quantity Refills Last Filled Start Date End Date methotrexate 25 mg/mL Inj SolutionIndicatio ns:Rheumatoid arthritis involving multiple sites with positive rheumatoid factor (HCC) Subcutaneous (Inject under the skin) 0.8 mL every 7 days. 4 mL 1 06/23/2017 8 Insulin Syringe-Needle U-100 (BD INSULIN SYRINGE) 1 mL 25 gauge x 5/8 Misc SyringeIndication s:Rheumatoid arthritis involving multiple sites with positive rheumatoid factor (HCC) Use for MTX injection once a week 100 Syringe 1 06/23/2017 9 folic acid (FOLVITE) 1 mg Oral TabletIndications :Rheumatoid arthritis involving multiple sites with positive rheumatoid factor (HCC) Take 1 Tab by mouth daily. 30 Tab 5 06/23/2017 8 etanercept (ENBREL) 50 mg/mL (0.98 mL) SubQ SyringeIndication s:Rheumatoid arthritis involving multiple sites with positive rheumatoid factor (HCC) Subcutaneous (Inject under the skin) 0.98 mL once a week. 4 Syringe 2 06/23/2017 8 methotrexate 25 mg/mL Inj SolutionIndicatio ns:Rheumatoid arthritis involving multiple sites with positive rheumatoid factor (HCC) Subcutaneous (Inject under the skin) 0.6 mL every 7 days. 4 mL 1 06/23/2017 7 documented in this encounter Progress Notes * Jessica Cortes MD - 06/23/2017 10:00 AM EDT Subjective Subjective: Patient ID: Yuliet Newsome is a 46 y.o. female. Chief Complaint Patient presents with ??? Follow-up 3mo ??? Rheumatoid Arthritis ??? Raynaud's Syndrome ??? Osteopenia HPI The patient comes in for follow up regarding RA. Symptoms started in 2002. Seen by [employer], Dr. Astorga. She was seen in [facility] but have not seen her in [...] at 20- low disease activity. Has been doing OK. Finger and neck are the worse. Left middle finger trigger. Wrists do not bother her that much. Neck and shoulder bother her a lot after work. 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 Joint swelling: hands, knee with standing for prolonged time. Pain on a scale 0-10: 63-7/10 Type of pain: ache Morning stiffness: 1 hour. Raynaud's: worsened in the cold weather. Current therapy: MTX 15 mg q week ( for the last 13 years), Enbrel 50 mg sq q week (since 2012), prednisone taper as needed Previous therapy: Tylenol, Codeine, Darvocet, Motrin, Naproxen, Celebrex, Lodine did not help, MTX helped some, Review of Systems Constitutional: Weight gain HENT: Positive for mouth sores. Dry mouth Gastrointestinal: Positive for constipation and diarrhea. GERD Musculoskeletal: Positive for arthralgias, joint swelling and neck pain. Skin: Positive for color change. Neurological: Positive for dizziness, weakness and numbness. Hematological: Bruises/bleeds easily. Psychiatric/Behavioral: Positive for sleep disturbance. The patient is nervous/anxious. Depression All other systems reviewed and are negative. Objective Objective: Vitals: 06/23/17 1011 BP: 124/80 Pulse: 84 Resp: 16 Weight: 139 lb 6.4 oz (63.2 kg) Height: 5' 2.5 (1.588 m) Body mass index is 25.09 kg/m??. Physical Exam Constitutional: She is oriented to person, place, and time. She appears well- developed and well-nourished. HENT: Head: Normocephalic and atraumatic. Eyes: Conjunctivae are normal. Pupils are equal, round, and reactive to light. Neck: Normal range of motion. Musculoskeletal: Tenderness to the spinal processes of the cervical spine. Tenderness to the trapezius muscles. Crepitus in the right shoulder. Tenderness to the 2nd- 5th right MCP, 1st MCP on left. Synovitis in the wrists, 2nd, 3rd , ?4th MCP on right and 1st MCP on left, 2nd,3rd right PIP. ROM of the knees, ankles intact, no effusion. Mild tenderness to the MTP joints bilaterally. Neurological: She is alert and oriented to person, place, and time. No cranial nerve deficit. Muscle strength 5/5 upper and lower extremities. Skin: Skin is warm. No rash noted. Psychiatric: She has a normal mood and affect. Vitals reviewed. Rapid 3: 14.8 Lab Results Component Value Date WBC 6.4 03/17/2017 HGB 14.3 03/17/2017 HCT 42.6 03/17/2017 MCV 91.5 03/17/2017 PLT 244 03/17/2017 Chemistry Component Value Date/Time NA 136 03/17/2017 0832 K 3.5 03/17/2017 0832 CL 98 03/17/2017 0832 CO2 23 03/17/2017 0832 BUN 13 03/17/2017 0832 CREATININE 0.82 03/17/2017 0832 GLU 73 (L) 03/17/2017 0832 Component Value Date/Time CALCIUM 9.7 03/17/2017 0832 ALKPHOS 85 03/17/2017 0832 AST 18 03/17/2017 0832 ALT 11 03/17/2017 0832 Lab Results Component Value Date CRP 1.63 03/17/2017 Lab Results Component Value Date SEDRATE 10 03/17/2017 Assessment and Plan: Yuliet was seen today for follow-up, rheumatoid arthritis, raynaud's syndrome and osteopenia. Diagnoses and all orders for this visit: Rheumatoid arthritis involving multiple sites, unspecified rheumatoid factor presence (HCC) Dx in 2002 [address] Astorga in [facility] Records from [facility] received and reviewed. The patient was seen in 05/11/13 for initial evaluation. Presented with polyarticular joint involvement- large and small joints- shoulders, elbows, knees, wrists, knuckles, toes. Per records she had low titer RF, negative CCP, (+) BRET centromere pattern > 8.0 with negative SSA/SSB, DATABASE DBA, Scl 70, dsDNA Records indicate she used [...] CCP Recurrent flares of joint pain, swelling In February 2017 she had synovitis in the wrists and 2nd, 3rd MCP on right as well as 1st MCP on left. Synovitis in the wrists, 2nd, 3rd right MCP, 1st left MCP, 2nd, 3rd right PIP today. Active. MTX 15 mg weekly ( since 2012), changed to injectable in 06/2016 for better efficacy, she run out in 09/2016, restarted 11/2016. Will increase MTX to 20 mg weekly sq. Enbrel 50 mg sq q week ( since 2012), run out 09/2016, restarted 03/10/17 after PPD done and negative. Monitor symptoms , if needed will change therapy - methotrexate 25 mg/mL Inj Solution; Subcutaneous (Inject under the skin) 0.6 mL every 7 days. - etanercept (ENBREL) 50 mg/mL (0.98 mL) SubQ Syringe; Subcutaneous (Inject under the skin) 0.98 mLonce a week. - folic acid (FOLVITE) 1 mg Oral Tablet; Take 1 Tab by mouth daily. - Insulin Syringe-Needle U-100 (BD INSULIN SYRINGE) 1 mL 25 gauge x 5/8 Misc Syringe; Use for MTX injection once a week - CBC WITH AUTO DIFF; Standing - COMPREHENSIVE METABOLIC PANEL; Standing - SEDIMENTATION RATE AUTOMATED; Standing - C-REACTIVE PROTEIN; Standing Positive BRET (antinuclear antibody) 1:640, centromere pattern [...] needed Immunocompromised patient (HCC) Due to immunosuppression Prevnar 13 given 12/13/16 Pneumovax 23 given 6/19/17 Therapeutic drug monitoring PPD negative 03/10/17 Labs today and every 6-8 weeks while on MTX - CBC WITH AUTO DIFF; Standing - COMPREHENSIVE METABOLIC PANEL; Standing Return in about 14 weeks (around 09/29/2017). documented in this encounter Plan of Treatment Upcoming Encounters Date Type Department Care Team (Late st Contact Info) Description 08/31/2024 8:30 AM EST Appointment [facility] [place] [address] [place] [address] 10/25/2024 10:45 AM EST Office Visit [facility] RHEUMATOLOGY [facility] [address] [place] [address] Jessica Cortes MD [address] [place] [address] 01/25/2025 9:00 AM EDT Appointment [address] [place] [address] [place] [address] 05/09/2025 11:00 AM EDT [address] [address] 05/09/2025 11:15 AM EDT [address]ment [address] [address] Susana Garay MD [address] [place] [address] [place] [address] Scheduled Orders Name Type Priority Associated Diagnoses Orde r Schedule CBC WITH AUTO DIFF Lab Routine Rheumatoid arthritis involving multiple sites with positive rheumatoid factor (HCC) Therapeutic drug monitoring Every 6 weeks for 10 Occurrences starting 06/23/2017 until 06/23/2018, 3 completed COMPREHENSIVE METABOLIC PANEL Lab Routine Rheumatoid arthritis involving multiple sites with positive rheumatoid factor (HCC) Therapeutic drug monitoring Every 6 weeks for 10 Occurrences starting 06/23/2017 until 06/23/2018, 3 completed SEDIMENTATION RATE AUTOMATED Lab Routine Rheumatoid arthritis involving multiple sites with positive rheumatoid factor (HCC) Every 6 weeks for 10 Occurrences starting 06/23/2017 until 06/23/2018, 3 completed C-REACTIVE PROTEIN Lab Routine Rheumatoid arthritis involving multiple sites with positive rheumatoid factor (HCC) Every 6 weeks for 10 Occurrences starting 06/23/2017 until 06/23/2018, 3 completed documented as of this encounter Goals Goal Patient Goal Type Associated Problems Recent Progress Patient-Stated? Author Maintain a healthy diet, exercise regularly and maintain an ideal body weight Porsche Diaz RN documented as of this encounter Results * C-REACTIVE PROTEIN (05/08/2018 11:03 AM EDT) Pathologist [facility] CRP 1.40 <=5.00 mg/L 05/08/2018 5:31 PM EDT [facility] Blood UPPER LIMB STRUCTURE / Unknown Venipuncture / Unknown 05/08/2018 11:03 AM EDT 05/08/2018 11:04 AM EDT Jessica Cortes MD CHEMISTRY ORDERABLES Siobhan l Result Performing Organization Address City/[facility]/ZIP Co de Phone Number [employer] [address] [place] [address], [address] [place] [phone] * SEDIMENTATION RATE AUTOMATED (05/08/2018 11:03 AM EDT) [facility] Sed Rate 5 0 - 20 mm/hr 05/08/2018 4:57 PM EDT [facility] Blood UPPER LIMB STRUCTURE / Unknown Venipuncture / Unknown 05/08/2018 11:03 AM EDT 05/08/2018 11:04 AM EDT Jessica Cortes MD HEMATOLOGY ORDERABLES Fin al Result Performing Organization Address City/[facility]/[place] [address] * COMPREHENSIVE METABOLIC PANEL (05/08/2018 11:03 AM EDT) [facility] Sodium 144 136 - 145 mmol/L 05/08/2018 5:31 PM EDT [employer] Potassium 4.3 3.5 - 5.0 mmol/L 05/08/2018 [...] - 5.2 gm/dL 05/08/2018 5:31 PM EDT [facility] Total Protein 7.8 6.4 - 8.3 gm/dL 05/08/2018 5:31 PM EDT [facility] Bili Total 0.3 0.1 - 1.3 mg/dL 05/08/2018 5:31 PM EDT [facility] ALT 13 <=41 IU/L 05/08/2018 5:31 PM EDT [facility] AST 16 <=40 IU/L 05/08/2018 5:31 PM EDT [facility] Alk Phos 98 35 - 104 IU/L 05/08/2018 5:31 PM EDT [facility] GFR Afr Am 94 >=60 mL/min/1.7 3 m2 05/08/2018 5:31 PM EDT [facility] GFR Non Afr Am 82 >=60 mL/min/1.7 3 m2 05/08/2018 5:31 PM EDT [facility] Comment: This estimated GFR was [...] [email or web address] Result [facility] 1 [facility] , [address] [place] [phone] [facility] [address] [place] [phone] * (ABNORMAL) CBC WITH AUTO DIFF (05/08/2018 [...] 05/08/2018 4:22 PM EDT [facility] Comment:Neutrophils equals s egs plus bands Imm Gran% 0.6 % 05/08/2018 4:22 PM EDT [facility] Comment:Automated count of m etamyelocytes, myelocytes and promyelocytes. Lymph Percent 38.7 % 05/08/2018 4:22 PM EDT [facility] [place] Percent 10.6 % 05/08/2018 4:22 PM EDT [facility] Eos Percent 4.1 % 05/08/2018 4:22 PM EDT [facility] Baso Percent 1.0 % 05/08/2018 4:22 PM EDT [facility] Neut # 2.8 1.6 - 6.1 x10(3)/mcL 05/08/2018 4:22 PM EDT [facility] Comment:Neutrophils equals s egs plus bands IMMGRAN# 0.0 0.0 - 0.1 x10(3)/mcL 05/08/2018 4:22 PM EDT [facility] Comment:Automated count of m etamyelocytes, myelocytes and promyelocytes. An absolute IG <0.1 is reported as 0.0. Lymph # 2.4 1.2 - 3.9 x10(3)/mcL 05/08/2018 4:22 PM EDT [facility] [place] # 0.7 0.3 - 0.9 x10(3)/mcL 05/08/2018 4:22 PM EDT [facility] Eos# 0.3 0.0 - 0.5 x10(3)/mcL 05/08/2018 4:22 PM EDT [facility] Baso # 0.1 0.0 - 0.1 x10(3)/mcL 05/08/2018 4:22 PM EDT [facility] Blood UPPER LIMB STRUCTURE / Unknown Venipuncture / Unknown 05/08/2018 11:03 AM EDT 05/08/2018 11:04 AM EDT us Jessica Cortes MD HEMATOLOGY ORDERABLES Fin al Result [facility] [address] [facility], [place] [address] * C-REACTIVE PROTEIN (10/06/2017 3:54 PM EST) Pathologist [facility] CRP 1.12 <=5.00 mg/L 10/06/2017 6:37 PM EST [facility] Blood UPPER LIMB STRUCTURE / Unknown Venipuncture / Unknown 10/06/2017 3:54 PM EST 10/06/2017 3:54 PM EST Jessica Cortes MD CHEMISTRY ORDERABLES Siobhan l Result Performing Organization Address [facility]/[place] [address] * SEDIMENTATION RATE AUTOMATED (10/06/2017 3:54 PM EST) [facility] Sed Rate 13 0 - 20 mm/hr 10/06/2017 6:25 PM EST [facility] Blood UPPER LIMB STRUCTURE / Unknown Venipuncture / Unknown 10/06/2017 3:54 PM EST 10/06/2017 3:54 PM EST Jessica Cortes MD HEMATOLOGY ORDERABLES Fin al Result Performing Organization Address [facility] [place] [address] * COMPREHENSIVE METABOLIC PANEL (10/06/2017 3:54 PM EST) [facility] Sodium 140 136 - 145 mmol/L 10/06/2017 6:37 PM EST [facility] Potassium 4.2 3.5 - 5.0 mmol/L 10/06/2017 6:37 PM EST [facility] Chloride 101 98 - 107 mmol/L 10/06/2017 6:37 PM EST [facility] Total CO2 23 22 - 29 mmol/L 10/06/2017 6:37 PM EST [facility] Anion Gap 16 7 - 16 mmol/L 10/06/2017 6:37 PM EST [facility] Calcium 9.5 8.6 - 10.2 mg/dL 10/06/2017 6:37 PM [facility] Glucose Lvl 95 74 - 100 mg/dL 10/06/2017 6:37 PM [facility] BUN 10 6 - 20 mg/dL 10/06/2017 6:37 PM [facility] Creatinine 0.69 0.51 - 1.30 mg/dL 10/06/2017 6:37 PM [facility] Albumin 4.4 3.5 - 5.2 gm/dL 10/06/2017 6:37 PM [facility] Total Protein 7.6 6.4 - 8.3 gm/dL 10/06/2017 6:37 PM [facility] Bili Total 0.3 0.1 - 1.3 mg/dL 10/06/2017 6:37 PM [facility] ALT 17 <=41 IU/L 10/06/2017 6:37 PM [facility] AST 23 <=40 IU/L 10/06/2017 6:37 PM [facility] Alk Phos 98 35 - 104 IU/L 10/06/2017 6:37 PM [facility] GFR Afr Am 121 mL/min/1.7 3 m2 10/06/2017 6:37 PM [facility] GFR Non Afr Am 105 mL/min/1.7 3 m2 10/06/2017 6:37 PM [facility] Comment: GFR Afr Am and GFR Non [...] 3:54 PM EST 10/06/2017 3:54 PM EST Jessica Cortes MD CHEMISTRY ORDERABLES Siobhan l Result [facility] 1 [place] [address] * CBC WITH AUTO DIFF (10/06/2017 3:54 PM EST) WBC 7.3 4.0 - 11.0 x10(3)/mcL 10/06/2017 6:06 PM EST [facility] RBC 4.87 3.80 - 5.10 x10(6)/mcL 10/06/2017 6:06 PM EST [facility] Hgb 14.8 12.0 - 15.6 gm/dL 10/06/2017 6:06 PM [facility] Hct 43.8 35.7 - 45.9 % 10/06/2017 6:06 PM [facility] MCV 90.0 82.5 - 99.8 fL 10/06/2017 6:06 PM EST [facility] MCH 30.4 27.0 - 34.3 pg 10/06/2017 6:06 PM [facility] MCHC 33.8 32.1 - 35.3 gm/dL 10/06/2017 6:06 PM EST [facility] RDW 13.8 11.5 - 15.0 % 10/06/2017 6:06 PM EST [facility] Platelet 265 144 - 423 x10(3)/[facility] 10/06/2017 6:06 PM EST [facility] MPV 8.9 6.8 - 10.8 fL 10/06/2017 6:06 PM EST [facility] Neut Percent 48.5 % 10/06/2017 6:06 PM EST [facility] Lymph Percent 36.3 % 10/06/2017 6:06 PM EST [facility] [place] Percent 11.0 % 10/06/2017 6:06 PM EST [facility] Eos Percent 3.6 % 10/06/2017 6:06 PM EST [facility] Baso Percent 0.6 % 10/06/2017 6:06 PM EST [facility] Neut # 3.5 1.8 - 7.7 x10(3)/[facility] 10/06/2017 6:06 PM EST [facility] Lymph # 2.6 0.6 - 4.8 x10(3)/[facility] 10/06/2017 6:06 PM EST [facility] Whitman # 0.8 0.0 - 1.3 x10(3)/[facility] 10/06/2017 6:06 PM EST [facility] Eos# 0.3 0.0 - 0.5 x10(3)/[facility] 10/06/2017 6:06 PM [facility] Baso # 0.0 0.0 - 0.2 x10(3)/[facility] 10/06/2017 6:06 PM [facility] Blood UPPER LIMB STRUCTURE / Unknown Venipuncture / Unknown 10/06/2017 3:54 PM EST 10/06/2017 3:54 PM EST us Jessica Cortes MD HEMATOLOGY ORDERABLES Fin al Result [facility] [address] [place] [address] * C-REACTIVE PROTEIN (06/23/2017 10:46 AM EDT) CRP 3.08 <=5.00 mg/L [facility] Blood specimen (specimen) UPPER LIMB STRUCTURE / Unknown 06/23/2017 10:46 AM EDT 06/23/2017 4:09 PM EDT us Jessica Cortes MD CHEMISTRY ORDERABLES Siobhan l Result Performing Organization Address [facility] [place] [address] * SEDIMENTATION RATE AUTOMATED (06/23/2017 10:46 AM EDT) Sed Rate 14 0 - 20 mm/hr [facility] Blood specimen (specimen) UPPER LIMB STRUCTURE / Unknown 06/23/2017 10:46 AM EDT 06/23/2017 4:08 PM EDT Jessica Cortes MD HEMATOLOGY ORDERABLES Fin al Result Performing Organization Address [facility]/[place] [address] * COMPREHENSIVE METABOLIC PANEL (06/23/2017 10:46 AM EDT) Pathologist [facility] Sodium 139 136 - 145 mmol/L [facility] Potassium 4.2 3.5 - 5.0 mmol/L [facility] Chloride 102 98 - 107 mmol/L [facility] Total CO2 22 22 - 29 mmol/L [facility] Anion Gap 15 7 - 16 mmol/L [facility] Calcium 9.3 8.6 - 10.2 mg/dL [facility] Glucose Lvl 77 74 - 100 mg/dL [facility] BUN 13 6 - 20 mg/dL [facility] Creatinine 0.80 0.51 - 1.30 mg/dL [facility] Albumin 4.5 3.5 - 5.2 gm/dL [facility] Total Protein 7.5 6.4 - 8.3 gm/dL [facility] Bili Total 0.2 0.1 - 1.3 mg/dL [facility] AST 20 <=40 IU/L [facility] ALT 13 <=41 IU/L [facility] Alk Phos 90 35 - 104 IU/L [facility] GFR Afr Am >60 [facility] GFR Non Afr Am >60 [facility] Blood specimen (specimen) UPPER LIMB STRUCTURE / Unknown 06/23/2017 10:46 AM EDT 06/23/2017 4:09 PM EDT Jessica Cortes MD CHEMISTRY ORDERABLES Edit ed Result - Final [facility] [address] [place] [address] * CBC WITH AUTO DIFF (06/23/2017 10:46 AM EDT) WBC 5.8 4.0 - 11.0 x10(3)/mcL [facility] RBC 4.60 3.80 - 5.10 x10(6)/mcL [facility] Hgb 13.8 12.0 - 15.6 gm/dL [facility] Hct 41.8 35.7 - 45.9 % [facility] MCV 90.7 82.5 - 99.8 fL [facility] MCH 29.9 27.0 - 34.3 pg [facility] MCHC 32.9 32.1 - 35.3 gm/dL [facility] RDW 13.3 11.5 - 15.0 % [facility] Platelet 280 144 - 423 x10(3)/mcL [facility] MPV 9.1 6.8 - 10.8 fL [facility] Blood specimen (specimen) UPPER LIMB STRUCTURE / Unknown 06/23/2017 10:46 AM EDT 06/23/2017 4:08 PM EDT Jessica Cortes MD HEMATOLOGY ORDERABLES Fin al Result [facility] [address] [place] [address] documented in this encounter Visit Diagnoses Diagnosis [...] skin) 0.6 mL every 7 days. Reorder 03/17/2017 06/23/2017 etanercept (ENBREL) 50 mg/mL (0.98 mL) SubQ SyringeIndications:Rh eumatoid arthritis involving multiple sites with positive rheumatoid factor (HCC) Subcutaneous (Inject under the skin) 0.98 mL once a week. Reorder 03/17/2017 06/23/2017 folic acid (FOLVITE) 1 mg Oral TabletIndications:Rhe umatoid arthritis involving multiple sites with positive rheumatoid factor (HCC) Take 1 Tab by mouth daily. Reorder 07/29/2016 06/23/2017 Insulin Syringe-Needle U-100 (BD INSULIN SYRINGE) 1 mL 25 gauge x 5/8 Misc SyringeIndications:Rh eumatoid arthritis involving multiple sites with positive rheumatoid factor (HCC) Use for MTX injection once a week Reorder 03/17/2017 06/23/2017 methotrexate 25 mg/mL Inj SolutionIndications:R heumatoid arthritis involving multiple sites with positive rheumatoid factor (HCC) Subcutaneous (Inject under the skin) 0.6 mL every 7 days. Reorder 06/23/2017 06/23/2017 gabapentin (NEURONTIN) 600 mg Oral TabletIndications:Rhe umatoid arthritis involving multiple sites with positive rheumatoid factor (HCC),Acute bilateral low back pain without sciatica Take 1 Tab by mouth nightly. Cancelled by 11/07/2016 06/23/2017 documented as of this encounter Care Teams Administrative Assistant Coordinator Relationship Specialty Start Date End Date Julisa Kerr MD [address] [phone] PCP - General 02/22/11 Jessica Cortes MD [address] [phone] Internal Medicine-Rheumatology 04/26/16 documented as of this encounter
--- OUTSIDE RECORDS SUMMARY | 2024-08-22 21:52 | XMS_ITS | Encounter Summary ---
Author Organization [place] [address] Care Team Providers Care Supervisor Special Education Name Role Phone Julisa Kerr MD Primary Care Provider [phone] Jessica Cortes MD Unavailable [phone] Reason for Visit * Reason Comments PPD Placement Encounter Details Date Type Department Care Team (Late st Contact Info) Description 03/10/2017 9:00 AM EDT Clinical Support [facility] [address] [place] [address] Porsche Jeffery RN PPD screening [...] on file documented as of this encounter Progress Notes * Porsche Jeffery RN - 03/10/2017 9:00 AM EDT Patient in office for TB Test, denies having any previous reaction to TB test and has no complaintsof unexpected weight loss, cough, night sweats, etc.. Patient was provided with a handout about theTB test and has been advised she will need to return to the office in 48 to 72 hours to have the test read. TB test was administered in patients left forearm and patient tolerated test well. documented in this encounter Plan of Treatment Upcoming Encounters Date Type Department Care Team (Late st Contact Info) Description 08/31/2024 8:30 AM EST Appointment [place] [place] [address] 10/25/2024 10:45 AM EST Office Visit [facility] [address] [place] [address] Jessica Cortes MD [address] [place] [address] 01/25/2025 9:00 AM EDT Appointment [address] [place] [address] 05/09/2025 11:00 AM EDT Appointment [address] [place] [address] 05/09/2025 11:15 AM EDT Appointment [address] [place] [address] Susana Garay MD [address] [place] [address] documented as of this encounter Goals Goal Patient Goal Type Associated Problems Recent Progress Patient-Stated? Author Maintain a healthy diet, exercise regularly and maintain an ideal body weight General No Porsche Jeffery, RN documented as of this encounter Procedures Procedure Name Priority Date/Time Associated Diagnosis Comments PLACE PPD Routine 03/12/2017 9:01 AM EDT PPD screening test documented in this encounter Results * PLACE PPD (03/12/2017 9:01 AM EDT) TB Skin Test NEGATIVE SEP OFFICE Jhon Peña BANQUET ATTENDANT NURSING TREATMENT OR DERABLES - ONCE OR AT INTERVALS Final Result SEP OFFICE documented in this encounter Visit Diagnoses Diagnosis PPD screening test- Primary Screening examination for pulmonary tuberculosis documented in this encounter Care Teams Supervisor Special Education Relationship Specialty Start Date End Date Julisa Kerr MD [address] [place] [address] PCP - General 02/22/11 Jessica Cortes MD 651 [facility] [address] [place] [address] Internal Medicine-Rheumatology 04/26/16 documented as of this encounter
--- OUTSIDE RECORDS SUMMARY | 2024-08-22 21:52 | XMS_ITS | Encounter Summary ---
Author Organization [place] [address] Care Team Providers Care Forging Press Lever Tender Name Role Phone Julisa Kerr MD Primary Care Provider [phone] Jessica Cortes MD Unavailable [phone] Encounter Details Date Type Department Care Team (Latest Contact Info) Description 12/13/2016 3:36 PM EDT - 12/13/2016 11:59 PM EDT Hospital Encounter [facility] [address] [address] Rheumatoid arthritis involving multiple sites [...] Info) Description 08/31/2024 8:30 AM EST Appointment [facility] [address] [address] 10/25/2024 10:45 AM EST Office Visit [facility] [address] [place] [address] Jessica Cortes MD 651 [facility] Building [address] [place] [address] 01/25/2025 9:00 AM EDT Appointment [place] [address] [place] [address] 05/09/2025 11:00 AM EDT Appointment [address] [address] [place] [address] 05/09/2025 11:15 AM EDT Appointment [address] [address] [place] [address] Susana Garay MD [address] [place] [address] [place] [address] Scheduled Orders Name Type Priority Associated Diagnoses Orde r Schedule OP VENIPUNCTURE CHARGE Lab Timed Rheumatoid arthritis involving multiple sites with positive rheumatoid factor (HCC) Therapeutic drug monitoring One Time for 1 Occurrences starting 12/13/2016 until 12/13/2016 documented as of this encounter Procedures Procedure Name Priority Date/Time Associated Diagnosis Comments DIFFERENTIAL Routine 12/13/2016 3:37 PM EDT SEDIMENTATION RATE AUTOMATED Routine 12/13/2016 3:37 PM EDT Rheumatoid arthritis involving multiple sites with positive rheumatoid factor (HCC) Therapeutic drug monitoring CBC WITH DIFF Routine 12/13/2016 3:37 PM EDT Rheumatoid arthritis involving multiple sites with positive rheumatoid factor (HCC) Therapeutic drug monitoring C-REACTIVE PROTEIN Routine 12/13/2016 3: 37 PM EDT Rheumatoid arthritis involving multiple sites with positive rheumatoid factor (HCC) Therapeutic drug monitoring COMPREHENSIVE METABOLIC PANEL Routine 12/13/2016 3:37 PM EDT Rheumatoid arthritis involving multiple sites with positive rheumatoid factor (HCC) Therapeutic drug monitoring documented in this encounter Results * DIFFERENTIAL (12/13/2016 3:37 PM EDT) Pathologist [facility] Neut Percent 65.8 % [facility] Lymph Percent 22.9 % [facility] Apache Percent 9.4 % [facility] Eos Percent 1.3 % [facility] Baso Percent 0.6 % [facility] Neut# 5.9 1.8 - 7.7 x10(3)/[facility] Lymph# 2.1 0.6 - 4.8 x10(3)/[facility]L [facility] Apache# 0.8 0.0 - 1.3 x10(3)/[facility] Eos# 0.1 0.0 - 0.5 x10(3)/[facility] Baso# 0.1 0.0 - 0.2 x10(3)/[facility] Blood specimen (specimen) 12/13/2016 3:37 PM EDT 12/13/2016 5:31 PM EDT us Jessica Cortes MD HEMATOLOGY ORDERABLES Fin al Result [facility] [address] [place] [address] * CBC WITH AUTO DIFF (12/13/2016 3:37 PM EDT) Pathologist [facility] WBC 9.0 4.0 - 11.0 x10(3)/[facility] RBC 4.60 3.80 - 5.10 x10(6)/[facility] Hgb 13.6 12.0 - 15.6 gm/dL [facility] Hct 41.3 35.7 - 45.9 % [facility] MCV 89.8 82.5 - 99.8 fL [facility] MCH 29.7 27.0 - 34.3 pg [facility] MCHC 33.1 32.1 - 35.3 gm/dL [facility] RDW 13.7 11.5 - 15.0 % [facility] Platelet 270 144 - 423 x10(3)/mcL [facility] MPV 8.7 6.8 - 10.8 fL [facility] Blood specimen (specimen) UPPER LIMB STRUCTURE / Unknown 12/13/2016 3:37 PM EDT 12/13/2016 5:31 PM EDT Jessica Cortes MD HEMATOLOGY ORDERABLES Fin al Result [facility] [address] [place] [address] * COMPREHENSIVE METABOLIC PANEL (12/13/2016 3:37 PM EDT) Sodium 140 136 - 145 mmol/L [facility] Potassium 3.7 3.5 - 5.0 mmol/L [facility] Chloride 100 98 - 107 mmol/L [facility] Total CO2 27 22 - 29 mmol/L [facility] Anion Gap 13 7 - 16 mmol/L [facility] Calcium 9.6 8.6 - 10.2 mg/dL [facility] Glucose Lvl 78 74 - 100 mg/dL [facility] BUN 13 6 - 20 mg/dL [facility] Creatinine 0.75 0.51 - 1.30 mg/dL [facility] Albumin 4.3 3.5 - 5.2 gm/dL [facility] Total Protein 7.2 6.4 - 8.3 gm/dL [facility] Bili Total 0.2 0.1 - 1.3 mg/dL [facility] AST 17 <=40 IU/L [facility] OD LABORATORY ALT 8 <=41 IU/L [facility] Alk Phos 97 35 - 104 IU/L [facility] GFR Afr Am >60 [facility] OOD LABORATORY GFR Non Afr Am >60 [facility] Blood specimen (specimen) UPPER LIMB STRUCTURE / Unknown 12/13/2016 3:37 PM EDT 12/13/2016 5:32 PM EDT Jessica Cortes MD CHEMISTRY ORDERABLES Edit ed Result - Final Performing Organization Address City/[facility]/ZIP Co de Phone Number [facility] [address] [place] [address] * C-REACTIVE PROTEIN (12/13/2016 3:37 PM EDT) CRP 2.60 <=5.00 mg/L [facility] Blood specimen (specimen) UPPER LIMB STRUCTURE / Unknown 12/13/2016 3:37 PM EDT 12/13/2016 5:32 PM EDT us Jessica Cortes MD CHEMISTRY ORDERABLES Siobhan l Result Performing Organization Address [facility]/ZIP Co de Phone Number [address] [address] * SEDIMENTATION RATE AUTOMATED (12/13/2016 3:37 PM EDT) Pathologist [facility] Sed Rate 14 0 - 20 mm/hr [facility] Blood specimen (specimen) UPPER LIMB STRUCTURE / Unknown 12/13/2016 3:37 PM EDT 12/13/2016 5:31 PM EDT us Jessica Cortes MD HEMATOLOGY ORDERABLES Fin al Result Performing Organization Address [facility] Co de Phone Number [address] [address] documented in this encounter Visit Diagnoses Diagnosis Rheumatoid arthritis involving multiple sites with positive rheumatoid factor (HCC) Therapeutic drug monitoring Encounter for therapeutic drug monitoring documented in this encounter Care Teams Forging Press Lever Tender Relationship Specialty Start Date End Date Julisa Kerr MD [address] [place] [address] PCP - General 02/22/11 Jessica Cortes MD [address] [place] [address] Internal Medicine-Rheumatology 04/26/16 documented as of this encounter
--- OUTSIDE RECORDS SUMMARY | 2024-08-22 21:53 | XMS_ITS | Encounter Summary ---
Author Organization [place] [address] Care Team Providers Care Manufacturing Helper Name Role Phone Unavailable Primary Care Provider Unavailabl e Encounter Details Date Type Department Care Team (Late st Contact Info) Description 05/23/2000 2:00 PM EDT - 05/23/2000 11:59 PM EDT Hospital Encounter [facility] RADIOLOGY GRT Sara Trinh [address] [facility] [place] [address] [phone] (Fax) Social History Tobacco Use Types Packs/Day Years Used Date Smoking Tobacco: Never Assessed Comments Unknown Sex and Gender Information Value Date Recorded Sex Assigned at Not on file Legal Sex Female 5:21 PM EDT Gender Identity Not on file Sexual Orientation Not on file documented as of this encounter Plan of Treatment Upcoming Encounters Date Type Department Care Team (Late st Contact Info) Description 08/31/2024 8:30 AM EST Appointment [facility] [address] [address] 10/25/2024 10:45 AM EST Office Visit [facility] [address] [place] [address] Jessica Cortes MD [address] [facility] Building [address] [place] [address] 01/25/2025 9:00 AM EDT Appointment [place] [address] [place] [address] 05/09/2025 11:00 AM EDT Appointment [place] [address] [address] [place] [address] 05/09/2025 11:15 AM EDT Appointment [place] [address] [place] [address] Susana Garay MD [address] [place] [address] [place] [address] documented as of this encounter Visit Diagnoses Not on filedocumented in this encounter
--- OUTSIDE RECORDS SUMMARY | 2024-08-22 21:53 | XMS_ITS | Encounter Summary ---
Author Organization [place] [address] Care Team Providers Care Back Tender Insulation Board Name Role Phone Julisa Kerr MD Primary Care Provider [phone] Reason for Visit * Reason Comments Other Urine leakage Encounter Details Date Type Department Care Team (Late st Contact Info) Description 12/30/2013 10:00 AM EDT Office Visit [facility] Tur [address] [place] [address] [place] [address] [place] [address] [address] [place] [address] OAB (overactive bladder) (Primary Dx); Dysuria; PRAVEEN (stress urinary incontinence, female) Social History Tobacco Use Types Packs/Day Years [...] Reading Time Taken Comments Blood Pressure 110/70 12/30/2013 10:06 AM EDT Pulse - - Temperature - - Respiratory Rate - - Oxygen Saturation - - Inhaled Oxygen Concentration - - Weight 54 kg (119 lb) 12/30/2013 10:06 AM EDT Height 157.5 cm (5' 2 ) 12/30/2013 10:06 AM EDT Body Mass Index 21.77 12/30/2013 10:06 AM EDT documented in this encounter Ordered Prescriptions Prescription Sig Dispense Quantity Refills Last Filled Start Date End Date oxybutynin (DITROPAN-XL) 5 mg CR tabletIndications:S UI (stress urinary incontinence, female),OAB (overactive bladder) Take 1 Tab by mouth daily. 30 Tab 3 12/30/2013 09/20/2015 documented in this encounter Progress Notes * Memo Hankins MD - 12/30/2013 10:35 AM EDT Subjective: Patient ID: Yuliet Newsome is a 43 y.o. female. Chief Complaint Patient presents with ??? Other Urine leakage HPI Pt is a 43 y.o. here complaining of leaking of urine , using pads for 2 months. The symptoms have unchanged. Pt had BARBIE,BSO & bladder suspension x 13 yrs. Pt ist refused exam & finally agreed. Patients past medical, family and social histories were reviewed and updated. There were no changesexcept as noted. Review of Systems Constitutional: Negative. HENT: Negative. Eyes: Negative. Respiratory: Negative. Cardiovascular: Negative. Gastrointestinal: Negative for abdominal pain. Genitourinary: Positive for frequency. Negative for vaginal bleeding, vaginal discharge, vaginal pain and pelvic pain. Skin: Negative. Objective: Filed Vitals: 12/30/13 1006 BP: 110/70 Height: 5' 2 (1.575 m) Weight: 119 lb (53.978 kg) Body mass index is 21.76 kg/(m^2). Physical Exam Vitals reviewed. Constitutional: She appears well-developed and well-nourished. Abdominal: Soft. There is no tenderness. Genitourinary: Vagina normal. No tenderness or bleeding around the vagina. No vaginal discharge found. Bladder is full. No leakage of urine seen. Atrophic vag changes +ve. No prolapse, vault well suspended. Assessment and Plan: Yuliet was seen today for other. Diagnoses and associated orders for this visit: OAB (overactive bladder) - oxybutynin (DITROPAN-XL) 5 mg CR tablet; Take 1 Tab by mouth daily. Dysuria - POCT urinalysis dipstick PRAVEEN (stress urinary incontinence, female) - oxybutynin (DITROPAN-XL) 5 mg CR tablet; Take 1 Tab by mouth daily. Other Orders - folic acid (FOLVITE) 1 mg tablet; Take by mouth daily. Pt declined urodynamics. Desire to try meds Ist. Will go with ditropan x 3months . If no help then try sling. Return in about 3 months (around 03/31/2014). documented in this encounter Plan of Treatment Upcoming Encounters Date Type Department Care Team (Late st Contact Info) Description 08/31/2024 8:30 AM EST Appointment [address] [place] [address] 10/25/2024 10:45 AM EST Office Visit [facility] [address] [place] [address] Jessica Cortes MD [address] [place] [address] 01/25/2025 9:00 AM EDT [address]ointment [address] [place] [address] 05/09/2025 11:00 AM EDT [address]ointment [address] [place] [address] 05/09/2025 11:15 AM EDT Appointment [address] [place] [address] Susana Garay MD [address] [place] [address] [place] [address] documented as of this encounter Visit Diagnoses Diagnosis OAB (overactive bladder)- Primary Hypertonicity of bladder Dysuria PRAVEEN (stress urinary incontinence, female) Female stress incontinence documented in this encounter Historical Medications * This list may reflect changes made after this encounter. folic acid (FOLVITE) 1 mg tablet Take by mouth daily. 04/26/2016 added in this encounter Care Teams Back Tender Insulation Board Relationship Specialty Start Date End Date Julisa Kerr MD [address] [place] [address] PCP - General 02/22/11 documented as of this encounter
--- OUTSIDE RECORDS SUMMARY | 2024-08-22 21:53 | XMS_ITS | Encounter Summary ---
Author Organization [place] [address] Care Team Providers Care Ict Managers Name Role Phone Unavailable Primary Care Provider Unavailabl e Encounter Details Date Type Department Care Team (Late st Contact Info) Description 07/12/2000 11:22 AM EDT - 07/12/2000 11:40 AM EDT Hospital Encounter HST EPIC CON UNK GRT Rusty Field MD [address] [place] [address] Social History Tobacco Use Types Packs/Day Years [...] [facility] [address] [address] 10/25/2024 10:45 AM EST Office Visit [facility] [address] [place] [address] Jessica Cortes MD [address] [facility] Building [address] [place] [address] 01/25/2025 9:00 AM EDT Appointment [facility] Cancer [address] [place] [address] 05/09/2025 11:00 AM EDT [address]ointment [address] [place] [address] 05/09/2025 11:15 AM EDT Appointment [address] [place] [address] Susana Garay MD [address] [place] [address] [place] [address] documented as of this encounter Visit Diagnoses Not on filedocumented in this encounter
--- OUTSIDE RECORDS SUMMARY | 2024-08-22 21:53 | XMS_ITS | Encounter Summary ---
Author Organization [place] [address] Care Team Providers Care Chrome Plater Helper Name Role Phone Julisa Kerr MD Primary Care Provider [phone] Reason for Visit * Reason Onset Date Comments Medication Refill 12/15/2012 Encounter Details Date Type Department Care Team (Late Contact Info) Description 12/15/2012 Telephone [facility] [address] [place] [address] Julisa Kerr MD [address] [place] [address] Medication Refill Social History Tobacco Use Types Packs/Day Years Used Date Smoking Tobacco: Never Smokeless Tobacco: Never Alcohol Use Standard Drinks/Week Comments No 0 (1 standard drink = 0.6 oz pur e alcohol) Comments No Sex and Gender Information Value Date Recorded Sex Assigned at Not on file Legal Sex Female 5:21 PM EDT Gender Identity Not on file Sexual Orientation Not on file documented as of this encounter Ordered Prescriptions Prescription Sig Dispense Quantity Refills Last Filled Start Date End Date cyclobenzaprine (FLEXERIL) 5 mg tabletIndications: Muscle spasm Take 1 Tab by mouth every 8 hours as needed for Muscle spasms for 90 days. 30 Tab 1 12/15/2012 03/15/2013 documented in this encounter Miscellaneous Notes * Telephone Encounter - Arash Joyce - 12/15/2012 4:26 PM EDT Refill cyclobenzaprine documented in this encounter Plan of Treatment Upcoming Encounters Date Type Department Care Team (Late st Contact Info) Description 08/31/2024 8:30 AM EST Appointment [address] [place] [address] 10/25/2024 10:45 AM EST Office Visit [facility] [address] [place] [address] Jessica Cortes MD [address] [place] [address] 01/25/2025 9:00 AM EDT Appointment [address] [place] [address] 05/09/2025 11:00 AM EDT Appointment [address] [place] [address] 05/09/2025 11:15 AM EDT Appointment [address] [place] [address] Susana Garay MD [address] [place] [address] documented as of this encounter Visit Diagnoses Diagnosis Muscle spasm- Primary Spasm of muscle documented in this encounter Discontinued Medications Medication Sig Discontinue Reason Start Date End Da te cyclobenzaprine (FLEXERIL) 5 mg tabletIndications:Muscle spasm Take 1 Tab by mouth every 8 hours as needed for Muscle spasms for 90 days. Reorder 02/22/2011 12/15/2012 documented as of this encounter Care Teams Chrome Plater Helper Relationship Specialty Start Date End Date Julisa Kerr MD [address] [place] [address] PCP - General 02/22/11 documented as of this encounter
--- OUTSIDE RECORDS SUMMARY | 2024-08-22 21:53 | XMS_ITS | Encounter Summary ---
Author Organization [place] [address] Care Team Providers Care Meals On Wheels Driver Name Role Phone Julisa Kerr MD Primary Care Provider Encounter Details Date Type Department Care Team (Latest Contact Info) Description 12/02/2013 10:27 AM EST - 12/02/2013 11:59 PM EST Hospital Encounter GRT XRAY [address] [facility] [place], [place] [id number] Low back sprain Discharge Disposition: Home or Self Care Social [...] this encounter Medications at Time of Discharge cephALEXin (KEFLEX) 500 mg capsuleIndication s:Urinary frequency Take 1 Cap by mouth every 8 hours for 10 days. 30 Cap 0 12/02/2013 12/12/2013 cyclobenzaprine (FLEXERIL) 5 mg tabletIndications :Low back sprain Take 1 Tab by mouth every 8 hours as needed for 10 days. 30 Tab 1 12/02/2013 12/12/2013 documented as of this encounter Discharge Disposition Disposition Code Departure Means Destination Home or Self Care documented in this encounter Plan of Treatment Upcoming Encounters Date Type Department Care Team (Late st Contact Info) Description 08/31/2024 8:30 AM EST Appointment [facility] Cancer [place] [address] [place] [address] 10/25/2024 10:45 AM EST Office Visit [facility] [address] [place] [address] Jessica Cortes MD [address] [facility] Building [address] [place] [address] 01/25/2025 9:00 AM EDT Appointment [place] [address] [place] [address] 05/09/2025 11:00 AM EDT [address]ointment [address] [place] [address] 05/09/2025 11:15 AM EDT Appointment [place] [address] [place] [address] Susana Garay MD [address] [place] [address] [place] [address] documented as of this encounter Procedures Procedure Name Priority Date/Time Associated Diagnosis Comments XR LUMBAR SPINE AP AND LATERAL Routine 12/02/2013 10:43 AM EST Low back sprain documented in this encounter Results * XR LUMBAR SPINE AP AND LATERAL (12/02/2013 10:43 AM EST) Anatomical Region Laterality Modality L-spine Radiographic Fallon ging 12/02/2013 10:2 7 AM EST Impressions 12/02/2013 11:38 AM EST IMPRESSION: Normal lumbar sacral spine. Narrative 12/02/2013 11:38 AM EST XR LUMBAR SPINE AP AND LATERAL ??Dec 02, 2013 10:43:42 AM HISTORY: ??846.9-Sprain of unspecified site of sacroiliac [id number]. Alignment is anatomic. ??Disc interspaces and vertebral body heights are maintained. ??No fracture-dislocation or significant degenerative change is noted. Procedure Note Rusty Hines MD - 12/02/2013 XR LUMBAR SPINE AP AND LATERAL Dec 02, 2013 10:43:42 AM HISTORY: 846.9-Sprain of unspecified site of [id number]-2-CM. Alignment is anatomic. Disc interspaces and vertebral body heights aremaintained. No fracture-dislocation or significant degenerative change is noted. IMPRESSION: Normal lumbar sacral spine. us Julisa Kerr MD IMG DIAGNOSTIC IMAGING ORDERAB LES Final Result documented in this encounter Visit Diagnoses Diagnosis Low back sprain Sprain of unspecified site of sacroiliac region documented in this encounter Care Teams Meals On Wheels Driver Relationship Specialty Start Date End Date Julisa Kerr MD [address] [place] [address] PCP - General 02/22/11 documented as of this encounter
--- OUTSIDE RECORDS SUMMARY | 2024-08-22 21:53 | XMS_ITS | Encounter Summary ---
Author Organization [place] [address] Care Team Providers Care Bell Valet Name Role Phone Julisa Kerr MD Primary Care Provider [phone] Reason for Visit * Reason Onset Date Comments Medication Refill 11/01/2015 Encounter Details Date Type Department Care Team (Late Contact Info) Description 11/01/2015 Refill [place] [phone] Julisa Kerr MD [address] [place] [address] Medication Refill Social History Tobacco Use Types [...] End Date cyclobenzaprine (FLEXERIL) 5 mg Oral TabletIndications: Rheumatoid arthritis involving multiple sites with positive rheumatoid factor (HCC) Take 1 Tab by mouth every 8 hours as needed for up to 10 days. 30 Tab 2 11/01/2015 11/11/2015 documented in this encounter Miscellaneous Notes * Telephone Encounter - Arash Joyce - 11/01/2015 11:38 AM EST Refill cyclobenzaprine PLEASE SEND TO [facility] documented in this encounter Plan of Treatment Upcoming Encounters Date Type Department Care Team (Late st Contact Info) Description 08/31/2024 8:30 AM EST Appointment [address] [place] [address] 10/25/2024 10:45 AM EST Office Visit [facility] [address] [place] [address] Jessica Cortes MD [address] [place] [address] 01/25/2025 9:00 AM EDT Appointment [address] [place] [address] 05/09/2025 11:00 AM EDT Appointment [address] [place] [address] 05/09/2025 11:15 AM EDT Appointment [address] [place] [address] Susana Garay MD [address] [place] [address] documented as of this encounter Visit Diagnoses Diagnosis 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 documented in this encounter Discontinued Medications Medication Sig Discontinue Reason Start Date End Da te cyclobenzaprine (FLEXERIL) 5 mg Oral TabletIndications:Rheuma toid arthritis(714.0) Take 1 Tab by mouth every 8 hours as needed for up to 10 days. Reorder 11/09/2014 11/01/2015 documented as of this encounter Care Teams Bell Valet Relationship Specialty Start Date End Date Julisa Kerr MD [address] [place] [address] PCP - General 02/22/11 documented as of this encounter
--- OUTSIDE RECORDS SUMMARY | 2024-08-22 21:53 | XMS_ITS | Encounter Summary ---
Author Organization [place] [address] Care Team Providers Care Kier Hand Name Role Phone Julisa Kerr MD Primary Care Provider [phone] Reason for Visit * Reason Comments PPD Placement Annual Exam Encounter Details Date Type Department Care Team (Late st Contact Info) Description 07/20/2014 8:45 AM EDT Office Visit [address] [address] Julisa Kerr MD [address] [place] [address] Routine general medical examination at a health care facility (Primary Dx); Other screening mammogram Social History Tobacco Use Types Packs/Day Years [...] Sign Reading Time Taken Comments Blood Pressure 108/74 07/20/2014 8:52 AM EDT Pulse - - Temperature 35.6 ??C (96.1 ??F) 07/20/2014 8:52 AM ED T Respiratory Rate - - Oxygen Saturation - - Inhaled Oxygen Concentration - - Weight 54 kg (119 lb) 07/20/2014 8:52 AM EDT Height 158.8 cm (5' 2.5 ) 07/20/2014 8:52 AM EDT Body Mass Index 21.42 07/20/2014 8:52 AM EDT documented in this encounter Progress Notes * Julisa Kerr MD - 07/20/2014 8:51 AM EDT Subjective: Patient ID: Yuliet Newsome is a 43 y.o. female. Chief Complaint Patient presents with ??? PPD Placement ??? Annual Exam HPI Needing checkup Pt is here today to have a TB test done. Patients past medical, family and social histories were reviewed and updated. There were no changesexcept as noted. Review of Systems Constitutional: Negative for fever, chills, activity change and fatigue. HENT: Negative for ear pain, congestion, sore throat, rhinorrhea, sneezing, neck pain and sinus pressure. Eyes: Negative. Respiratory: Negative for chest tightness, shortness of breath and wheezing. Cardiovascular: Negative. Negative for chest pain and palpitations. Gastrointestinal: Negative for nausea, vomiting, abdominal pain and diarrhea. Musculoskeletal: Positive for arthralgias. Negative for back pain and joint swelling. Skin: Negative for rash and wound. Neurological: Negative. Psychiatric/Behavioral: Negative for behavioral problems, sleep disturbance and decreased concentration. The patient is not nervous/anxious and is not hyperactive. All other systems reviewed and are negative. Objective: Filed Vitals: 07/20/14 0852 BP: 108/74 Temp: 96.1 ??F (35.6 ??C) TempSrc: Tympanic Height: 5' 2.5 (1.588 m) Weight: 119 lb (53.978 kg) Body mass index is 21.41 kg/(m^2). Physical Exam Nursing note and vitals reviewed. Constitutional: She is oriented to person, place, and time. She appears well- developed and well-nourished. No distress. HENT: Head: Normocephalic and atraumatic. Right Ear: External ear normal. Left Ear: External ear normal. Mouth/Throat: Oropharynx is clear and moist. Eyes: Conjunctivae and EOM are normal. Pupils are equal, round, and reactive to light. Neck: Normal range of motion. Neck supple. Cardiovascular: Normal rate, regular rhythm and normal heart sounds. No murmur heard. Pulmonary/Chest: Effort normal and breath sounds normal. No respiratory distress. She has no wheezes. Abdominal: Soft. Bowel sounds are normal. She exhibits no distension. There is no tenderness. Thereis no rebound and no guarding. Musculoskeletal: She exhibits tenderness. She exhibits no edema. Lymphadenopathy: She has no cervical adenopathy. Neurological: She is alert and oriented to person, place, and time. No cranial nerve deficit. Skin: Skin is warm. No rash noted. Psychiatric: She has a normal mood and affect. Her behavior is normal. Judgment and thought contentnormal. Assessment and Plan: Yuliet was seen today for ppd placement and annual exam. Diagnoses and associated orders for this visit: Routine general medical examination at a health care facility Other screening mammogram - Mammography digital screening with CAD bilat; Future Other Orders - Place PPD Doing well. rec pap. She declines. Is on enbrel for RA with rheum. Return if symptoms worsen or fail to improve. documented in this encounter Plan of Treatment Upcoming Encounters Date Type Department Care Team (Late st Contact Info) Description 08/31/2024 8:30 AM EST Appointment [place] [address] [place] [address] 10/25/2024 10:45 AM EST Office Visit [facility] [address] [facility] [address] [place] [address] Jessica Cortes MD [address] [facility] Building [address] [place] [address] 01/25/2025 9:00 AM EDT Appointment [place] [address] [place] [address] 05/09/2025 11:00 AM EDT [address]ment [address] [place] [address] 05/09/2025 11:15 AM EDT Appointment [facility] [address] [place] [id number] Susana Garay MD [address] [facility] [place] [address] documented as of this encounter Procedures Procedure Name Priority Date/Time Associated Diagnosis Comments PLACE PPD Routine 07/22/2014 9:31 AM EDT documented in this encounter Results * PLACE PPD (07/22/2014 9:31 AM EDT) TB Skin Test neg SEP OFFICE 07/22/2014 9:31 AM EDT us Julisa Kerr MD NURSING TREATMENT OR DERABLES - ONCE OR AT INTERVALS Final Result SEP OFFICE documented in this encounter Visit Diagnoses Diagnosis Routine general medical examination at a health care facility- Primary Other screening mammogram documented in this encounter Historical Medications * This list may reflect changes made after this encounter. etanercept (ENBREL) 50 mg/mL (0.98 mL) SubQ Syringe Subcutaneous (Inject under the skin) 50 mg once. 6 added in this encounter Care Teams Kier Hand Relationship Specialty Start Date End Date Julisa Kerr MD [address] [place] [place], [place] [id number] PCP - General 02/22/11 documented as of this encounter
--- OUTSIDE RECORDS SUMMARY | 2024-08-22 21:53 | XMS_ITS | Encounter Summary ---
Author Organization [place] [address] Care Team Providers Care Manufacturing Teacher Name Role Phone Julisa Kerr MD Primary Care Provider [phone] Encounter Details Date Type Department Care Team (Latest Contact Info) Description 04/22/2016 3:33 PM EDT - 04/22/2016 11:59 PM EDT Hospital Encounter [facility] [address] [place] [facility]17 Neck pain Discharge Disposition: Home or Self [...] 8:30 AM EST Appointment [facility] [address] [place] [address] 10/25/2024 10:45 AM EST Office Visit [facility] [address] [facility] [address] [place] [address] Jessica Cortes MD [address] [facility] [address] [place] [address] 01/25/2025 9:00 AM EDT Appointment [facility] [place] [address] [place] [address] 05/09/2025 11:00 AM EDT Appointment [place] [address] [place] [address] 05/09/2025 11:15 AM EDT Appointment [place] [address] [place] [address] Susana Garay MD [address] [place] [address] [place] [address] documented as of this encounter Procedures Procedure Name Priority Date/Time Associated Diagnosis Comments XR CERVICAL SPINE AP LATERAL FLEXION EXTENSION Routine 04/22/2016 4:36 PM EDT Neck pain documented in this encounter Results * XR CERVICAL SPINE AP LATERAL FLEXION EXTENSION (04/22/2016 4:36 PM EDT) Anatomical Region Laterality Modality C-spine Radiographic [place] ging 04/22/2016 4:36 PM EDT Impressions 04/22/2016 5:05 PM EDT IMPRESSION: Preserved vertebral body height and disc space throughout lumbar spine. Minor degenerative changes involving endplates with small dorsal spondylitic spurs at C5-C6 and C6-C7. No subluxation of flexion or extension. Narrative 04/22/2016 5:05 PM EDT XR CERVICAL SPINE AP LATERAL FLEXION EXTENSION 4 views 04/22/2016 4:36 PM History: 45 years .Female. ??M54.2-[id number]-CM. Procedure Note Arie Lamas MD - 04/22/2016 XR CERVICAL SPINE AP LATERAL FLEXION EXTENSION 4 views 04/22/2016 4:36 PM History: 45 years .Female. M54.8-[id number]-10-CM. IMPRESSION: Preserved vertebral body height and disc space throughoutlumbar spine. Minor degenerative changes involving endplates with small dorsal spondylitic spurs at C5-C6 and C6-C7. No subluxation of flexion orextension. Jessica Cortes MD IMG DIAGNOSTIC IMAGING OR DERABLES Final Result documented in this encounter Visit Diagnoses Diagnosis Neck pain Cervicalgia documented in this encounter Care Teams Manufacturing Teacher Relationship Specialty Start Date End Date Julisa Kerr MD [address] [place] [address] PCP - General 02/22/11 documented as of this encounter
--- OUTSIDE RECORDS SUMMARY | 2024-08-22 21:53 | XMS_ITS | Encounter Summary ---
Author Organization [place] [address] Care Team Providers Care Special Officer Name Role Phone Julisa Kerr MD Primary Care Provider [phone] Reason for Visit * Reason Onset Date Comments Medication Refill 06/11/2011 Encounter Details Date Type Department Care Team (Late Contact Info) Description 06/11/2011 Telephone [facility] [address] [place] [address] Julisa Kerr MD [address] [place] [address] Medication Refill Social History Tobacco Use Types Packs/Day Years Used Date Smoking Tobacco: Never Alcohol Use Standard Drinks/Week Comments [...] Date End Date predniSONE (DELTASONE) 20 mg tabletIndications:R heumatoid arthritis(714.0) Take by mouth. 3 tabs po daily for 3 days, then 2tabs po daily for 3 days, then 1 tab daily for 3 days. 18 Tab 0 06/11/2011 12/02/2013 documented in this encounter Miscellaneous Notes * Telephone Encounter - Qi Seaman - 06/11/2011 10:38 AM EDT Refill prednisone documented in this encounter Plan of Treatment Upcoming Encounters Date Type Department Care Team (Late st Contact Info) Description 08/31/2024 8:30 AM EST Appointment [address] [place] [address] 10/25/2024 10:45 AM EST Office Visit [facility] [address] [place] [address] Jessica Cortes MD [address] [place] [address] 01/25/2025 9:00 AM EDT Appointment [address] [address] 05/09/2025 11:00 AM EDT Appointment [address] [address] 05/09/2025 11:15 AM EDT Appointment [address] [address] Susana Garay MD [address] [place] [address] [place] [address] documented as of this encounter Visit Diagnoses Diagnosis Rheumatoid arthritis(714.0) Rheumatoid arthritis documented in this encounter Discontinued Medications Medication Sig Discontinue Reason Start Date End Da te predniSONE (DELTASONE) 20 mg tabletIndications:Rheumat oid arthritis(714.0) Take by mouth. 3 tabs po daily for 3 days, then 2tabs po daily for 3 days, then 1 tab daily for 3 days. Reorder 02/22/2011 06/11/2011 documented as of this encounter Care Teams Special Officer Relationship Specialty Start Date End Date Julisa Kerr MD [address] [place] [address] PCP - General 02/22/11 documented as of this encounter
--- OUTSIDE RECORDS SUMMARY | 2024-08-22 21:53 | XMS_ITS | Encounter Summary ---
Author Organization [place] [address] Care Team Providers Care Oil Well Fishing Tool Operator Name Role Phone Julisa Kerr MD Primary Care Provider [phone] Reason for Visit * Reason Onset Date Comments Edema 04/08/2011 Encounter Details Date Type Department Care Team (Late Contact Info) Description 04/08/2011 Telephone [facility] 100 [place] [address] Willa Zee, [facility] [address] [facility] [place] [address] Edema Social History Tobacco Use Types Packs/Day Years [...] Refills Last Filled Start Date End Date meloxicam (MOBIC) 7.5 mg Take 1 Tab by mouth daily for 90 days. 30 Tab 2 04/09/2011 07/08/2011 documented in this encounter Miscellaneous Notes * Telephone Encounter - Khadijah Gorman MA - 04/09/2011 11:00 AM EDT Phone # disconnected * Telephone Encounter - Julisa Kerr MD - 04/09/2011 8:28 AM EDT If needs this daily will need cmp in 1 month * Telephone Encounter - Willa eZe MA - 04/08/2011 10:45 AM EDT Arthtitis, in hands and knees can we rx a anti-inflammtory? documented in this encounter Plan of Treatment Upcoming Encounters Date Type Department Care Team (Late st Contact Info) Description 08/31/2024 8:30 AM EST Appointment [address] [place] [address] 10/25/2024 10:45 AM EST Office Visit [facility] [address] [place] [address] Jessica Cortes MD [address] [facility] [address] 19 [place] [address] 01/25/2025 9:00 AM EDT Appointment [address] [place] [address] 05/09/2025 11:00 AM EDT Appointment [address] [place] [address] 05/09/2025 11:15 AM EDT [address]ointment [address] [place] [address] Susana Garay MD [address] [place] [address] [place] [address] documented as of this encounter Visit Diagnoses Not on filedocumented in this encounter Care Teams Oil Well Fishing Tool Operator Relationship Specialty Start Date End Date Julisa Kerr MD [address] [place] [address] PCP - General 02/22/11 documented as of this encounter
--- OUTSIDE RECORDS SUMMARY | 2024-08-22 21:53 | XMS_ITS | Encounter Summary ---
Author [place] [address] Care Team Providers Care Glass Laminating Operator Name Role Phone Julisa Kerr MD Primary Care Provider [phone] Jessica Cortes MD Unavailable [phone] Reason for Referral * DEXA (Routine) - Closed Specialty Diagnoses / Procedures Referred By Anatoliy t Referred To Contact Radiology Diagnoses Osteoporosis Procedures DX BONE DENSITY AXIAL SKELETON Jessica Cortes MD [address] [place] [address] Phone: tel: fax: [facility] DEXA [address] [place] [address] Phone: tel: Referral ID Status Reason Start Date Expiration Date Visits Re quested Visits Authorized [id number] Closed 04/22/2016 04/22/2017 1 1 Reason for Visit * Reason Comments Referral Referred By Dr Kerr / [facility] Dr Astorga Rheumatoid Arthritis * Consultation (Routine) - Closed Specialty Diagnoses / Procedures Referred By Contciarra t Referred To Contact Internal Medicine-Rheumatology / Rheumatology Diagnoses Rheumatoid arthritis involving both hands with positive rheumatoid factor (HCC) Julisa Kerr MD Phone: tel: fax: Jessica Cortes MD [address] [address] Phone: tel: fax: Referral ID Status Reason Start Date Expiration Date V isits Requested Visits Authorized [id number] Closed Specialty Services Required 09/20/2015 09/19/2016 99 99 Encounter Details Date Type Department Care Team (Latest Contact Info) Description 04/22/2016 1:45 PM EDT Office Visit [facility] Rheumatology CV [address] [phone] Jessica Cortes MD [address] [place] [address] Rheumatoid arthritis involving multiple sites, unspecified rheumatoid factor presence (Primary Dx); Raynaud's phenomenon; Neck pain; Osteoporosis; Therapeutic drug monitoring Social History Tobacco Use [...] Sign Reading Time Taken Comments Blood Pressure 114/80 04/22/2016 1:51 PM EDT Pulse 90 04/22/2016 1:51 PM EDT Temperature 36.8 ??C (98.2 ??F) 04/22/2016 1:51 PM ED T Respiratory Rate 16 04/22/2016 1:51 PM EDT Oxygen Saturation - - Inhaled Oxygen Concentration - - Weight 61.1 kg (134 lb 9.6 oz) 04/22/2016 1:51 P M EDT Height 158.8 cm (5' 2.5 ) 04/22/2016 1:51 PM EDT Body Mass Index 24.23 04/22/2016 1:51 PM EDT documented in this encounter Progress Notes * Ashlee Dumont, RT - 04/22/2016 3:09 PM EDT Shielded patient. Patient states no chance of ; patient states she had a total hysterectomy 15 years ago. * Jessica Cortes MD - 04/22/2016 1:47 PM EDT Subjective Subjective: Patient ID: Yuliet Newsome is a 45 y.o. female. Chief Complaint Patient presents with ??? Referral Referred By Dr Kerr/ [facility] Dr Astorga ??? Rheumatoid Arthritis HPI The patient comes in for consultation regarding RA. Symptoms started in 2002. Seen by [facility], Dr. Astorga. She was seen in [place] [facility] but have not seen her in [...] well and it seems to work well. Flares every 3 months. She has more joint pain on one side or the other, joint swelling and pain, tender joints. In between the flares she has mild pain- 3/10, mild swelling. Most bothersome hands, toes. Recently started having symptoms in the neck, grinding and pain. Off of MTX and Enbrel since the end of January Currently has pain in the hands- knuckles, wrists, knees, toes of the right foot and neck. Pain on a scale 0-10: 7/10 Type of pain: ache Associated symptoms: swelling of the wrists, knuckles, morning stiffness up to 1 hour, at times numbness and tingling in the hands, Raynaud's Aggravating factors: rest, Alleviating factors: activities, MTX - just a little bit, Enbrel helps a lot Current therapy: off of medications for the last 2 months since she has not followed up with [facility] T[facility], has been on MTX 15 mg q week ( for the last 13 years), Enbrel 50 mg sq q week (for the last 3 years), prednisone taper as needed Previous therapy: Tylenol, Codeine, Darvocet, Motrin, Naproxen, Celebrex, Lodine did not help, MTX helped some, Review of Systems Constitutional: Positive for fatigue. Weight gain- 22 pounds in the last year. HENT: Positive for trouble swallowing. Gastrointestinal: Positive for constipation. Musculoskeletal: Positive for joint swelling, arthralgias and neck pain. Skin: Positive for color change. Neurological: Positive for dizziness, weakness and headaches. Hematological: Bruises/bleeds easily. Psychiatric/Behavioral: Positive for sleep disturbance. Depression All other systems reviewed and are negative. Past Medical History Diagnosis Date ??? Arthritis Osteoarthritis Past Surgical History Procedure Laterality Date ??? Hysteroscopy ??? Vlad and bso 2001 Allergies Allergen Reactions ??? Mobic [Meloxicam] Hivpatience Current Outpatient Prescriptions on File Prior to Visit Medication Sig Dispense Refill ??? albuterol (VENTOLIN HFA) 90 mcg/actuation Inhl HFA Aerosol Inhaler Inhale 2 Puffs into the lungs every 6 hours as needed for Wheezing. 1 Inhaler 3 ??? etanercept (ENBREL) 50 mg/mL (0.98 mL) SubQ Syringe Subcutaneous (Inject under the skin) 50 mg once. ??? folic acid (FOLVITE) 1 mg tablet Take by mouth daily. ??? methotrexate 2.5 mg tablet Take 2.5 mg by mouth once a week. No current facility-administered medications on file prior to visit. History Substance Use Topics ??? Smoking status: Never Smoker ??? Smokeless tobacco: Never Used ??? Alcohol Use: No Family History Problem Relation Age of Onset ??? Arthritis Father ??? Arthritis Paternal Grandmother Objective Objective: Filed Vitals: 04/22/16 1351 BP: 114/80 Pulse: 90 Temp: 98.2 ??F (36.8 ??C) TempSrc: Oral Resp: 16 Height: 5' 2.5 (1.588 m) Weight: 134 lb 9.6 oz (61.054 kg) Body mass index is 24.21 kg/(m^2). Physical Exam Constitutional: She is oriented [...] tenderness. Musculoskeletal: ROM of the neck painful. ROM of the shoulders intact. Crepitus in the right shoulder. Tenderness toboth wrists, 2nd, 3rd right MCP, 1st, 2nd, 3rd left MCP. Synovitis in the wrists, more on the left,2nd, 3rd right MCP, 1st left MCP. ROM of the knees, ankles intact. Tenderness to the 1st right MTP and all of the MTP joints on the left. No tenderness to the spinal processes or paraspinal muscles. Neurological: She is alert and oriented to person, place, and time. No cranial nerve deficit. Muscle strength 5/5 upper and lower extremities. Skin: Skin is warm. No rash noted. Psychiatric: She has a normal mood and affect. Vitals reviewed. Rapid 3:17.2 Lab Results Component Value Date WBC 8.5 09/20/2015 HGB 13.1 09/20/2015 HCT 40.3 09/20/2015 MCV 90.4 09/20/2015 PLT 240 09/20/2015 Chemistry Component Value Date/Time NA 140 09/20/2015 1710 K 3.4* 09/20/2015 1710 CL 101 09/20/2015 1710 CO2 26 09/20/2015 1710 BUN 12 09/20/2015 1710 CREATININE 0.77 09/20/2015 1710 GLU 94 09/20/2015 1710 Component Value Date/Time CALCIUM 9.5 09/20/2015 1710 ALKPHOS 83 09/20/2015 1710 AST 17 09/20/2015 1710 ALT 10 09/20/2015 1710 TSH 1.35 ( 08/2015) Vit B 12 277 ( 08/2015) Assessment and Plan: Yuliet was seen today for referral and rheumatoid arthritis. Diagnoses and all orders for this visit: Rheumatoid arthritis involving multiple sites, unspecified rheumatoid factor presence (HCC) Dx in [address] Astorga in [facility] Presented with polyarticular joint involvement- large and small joints- shoulders, elbows, knees, wrists, knuckles, toes. Reports recurrent flares of joint pain, swelling even while on treatment Active disease despite treatment with MTX 15 mg weekly ( since 2012) and Enbrel 50 mg sq q week ( since 1022) Failed Humira due to allergic reaction Off of MTX and Enbrel since january since she did not follow up with previous Metal Tester and wantedto establish care in our office Will get labs to make sure no contraindications to those medications and restart MTX and Enbrel tomorrow. X rays revealed erosive changes of the left ulnar styloid, periarticular osteopenia of the left wrist and degenerative changes in both wrists and interphalangeal joints. X rays of the feet were normal. - Comprehensive Metabolic Panel; Future - CBC with Auto Diff; Future - C-Reactive Protein; Future - Sedimentation Rate Automated; Future - TSH Reflex; Future - Cyclic Citrullinated Peptide AB, IGG; Future - Hepatitis C Antibody IgM + IgG; Future - Hepatitis B Surface Antigen; Future - Rheumatoid Factor Quantitative; Future - Hep B Core Antibody IgM Acute Titer; Future - POCT Hand & Finger Xray - POCT Foot & Toes R L Xray Raynaud's phenomenon Will check serologies No history of digital ulcerations No other symptoms to suggest CTD - SSA (Ro) (MICHAEL) Antibody, IgG-Ref lab; Future - SSB (La) (MICHAEL) Antibody, IgG-Ref lab; Future - Antinuclear Antibody Screen; Future - Melo (MICHAEL) Antibody, IgG-Ref lab; Future - Ribonucleic Protein Antibody, IgG-Ref la; Future - Complement Panel; Future - DSDNA AB Reflex to Titer-Ref lab; Future Neck pain Patients with active RA are at risk for atlantoaxial disease and translocation of the dens Will check x rays - XR CERVICAL SPINE AP LATERAL FLEXION EXTENSION; Future Osteoporosis Screening Surgical menopause in 2000 Hx of RA, frequent prednisone use Will get DXA May need treatment for OP - DEXA bone density axial skeleton; Future - Vitamin D 25 Hydroxy - Lab Collect; Future Therapeutic drug monitoring Last PPD 08/2015 Labs today and every 6-8 weeks while on MTX Results for orders placed or performed in visit on 04/22/16 POCT HAND & FINGER Impression Right hand, 3 views. Findings: There is joint space narrowing of the radiocarpal, radioulnar articulation, CMC, 1st, 2nd MCP joints and interphalangeal joints. Avulsion fracture vs accessory ossivle of the ulnar styloid. Otherwise no osseous, joint space or soft tissue abnormalities. Impression: Degenerative changes of the wrist and interphalangeal joints. Joint space narrowing of the MCP joints may suggest inflammatory arthritis. No erosions. Left hand, 3 views. Findings: There is joint space narrowing of the radiocarpal, carpal joint, CMC, 1st MCP joint and interphalangeal joints. Erosive changes of the ulnar styloid. Periarticular osteopenia in the carpus. Otherwise no osseous, joint space or soft tissue abnormalities. Impression: Degenerative changes of the wrist and interphalangeal joints. Erosive changes of the ulnar styloid. Periarticular osteopenia in the carpus. POCT FOOT & TOES R L Impression Right foot, 3 views. Findings: No osseous, joint space or soft tissue abnormalities. Impression: Normal Left foot, 3 views. Findings: No osseous, joint space or soft tissue abnormalities. Impression: Normal Return in about 3 months (around 07/23/2016). Addendum 05/29/16 Records from [facility] received and reviewed. 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 On MTX and Enbrel since 04/2013. X rays of both feet 05/18/2013 revealed minimal degenerative changes of both feet X rayd of the hands 05/18/2013 revealed degenerative changes , diffuse in the radiocarpal, first carpometacarpal joints metacarpophalangeal joints and interphalangeal joints. Diffuse osteopenia was noted. Impression was possible inflammatory arthropathy and possible old fractures of the right radiusand ulna due to abnormal morphology. Last visit 08/08/2015 documented in this encounter Plan of Treatment Upcoming Encounters Date Type Department Care Team (Late st Contact Info) Description 08/31/2024 8:30 AM EST Appointment [place] [address] [place] [address] 10/25/2024 10:45 AM EST Office Visit [facility] [address] [place] [address] Jessica Cortes MD [address] [place] [address] 01/25/2025 9:00 AM EDT [address]ment [address] [place] [address] 05/09/2025 11:00 AM EDT Appointment [place] [address] [place] [address] 05/09/2025 11:15 AM EDT [address]ointment [address] [place] [address] Susana Garay MD [address] [place] [id number] documented as of this encounter Procedures Procedure Name Priority Date/Time Associated Diagnosis Comments SCANNED LABS 04/26/2016 9:19 AM EDT POCT HAND & FINGER Routine 04/22/2016 3: 09 PM EDT Rheumatoid arthritis involving multiple sites, unspecified rheumatoid factor presence POCT FOOT & TOES R L Routine 04/22/2016 3:09 PM EDT Rheumatoid arthritis involving multiple sites, unspecified rheumatoid factor presence documented in this encounter Results * DX BONE DENSITY AXIAL SKELETON (05/03/2016 3:27 PM EDT) Anatomical Region Laterality Modality Dexa Scan 05/03/2016 Narrative 05/06/2016 8:52 AM EDT Indication: The patient is a post-menopausal female under age 65 with clinical risk factors for an osteoporotic fracture that requires a bone density assessment. Study was performed on [employer] 5. Bone Density: Region ?BMD ? T-score [...] Rivka Mckenna PA-C,CCD on 05/03/2016 4:04:00 PM. us Jessica Cortes MD IMG DEXA ORDERABLES Final Result * SCANNED LABS (04/26/2016 9:19 AM EDT) 04/26/2016 9:19 AM EDT us Unknown Unknown HEMATOLOGY ORDERABLES Final Resu lt * XR CERVICAL SPINE AP LATERAL FLEXION [...] 04/22/2016 4:36 PM History: 45 years .Female. ??M54.5-Hzyymbajail-XPS-10-CM. Procedure Note Arie Lamas MD - 04/22/2016 XR CERVICAL SPINE AP LATERAL FLEXION EXTENSION 4 views 04/22/2016 4:36 PM History: 45 years .Female. M54.7-Gncbuvxeieu-DJO-10-CM. IMPRESSION: Preserved vertebral body height and disc space throughoutlumbar spine. Minor degenerative changes involving endplates with small dorsal spondylitic spurs at C5-C6 and C6-C7. No subluxation of flexion orextension. us Jessica Cortes MD IMG DIAGNOSTIC IMAGING OR DERABLES Final Result * POCT FOOT & TOES R L (04/22/2016 3:09 PM EDT) 04/22/2016 3:09 PM EDT Impressions SEP OFFICE - 04/22/2016 3:45 PM EDT Right foot, 3 views. Findings: No osseous, joint space or soft tissue abnormalities. Impression: Normal Left foot, 3 views. Findings: No osseous, joint space or soft tissue abnormalities. Impression: Normal Result Pending Sale To [facility] us Jessica Cortes MD POINT OF CARE IMAGING Fin al Result Performing Organization Address City/State/[facility] Co de Phone Number SEP OFFICE * (ABNORMAL) POCT HAND & FINGER (04/22/2016 3:09 PM EDT) 04/22/2016 3:09 PM EDT Impressions SEP OFFICE - 04/22/2016 3:41 PM EDT Right hand, 3 views. Findings: There is joint space narrowing of the radiocarpal, radioulnar articulation, CMC, 1st, 2nd MCP joints and interphalangeal joints. Avulsion fracture vs accessory ossivle of the ulnar styloid. Otherwise no osseous, joint space or soft tissue abnormalities. Impression: Degenerative changes of the wrist and interphalangeal joints. Joint space narrowing of the MCP joints may suggest inflammatory arthritis. No erosions. Left hand, 3 views. Findings: There is joint space narrowing of the radiocarpal, carpal joint, CMC, 1st MCP joint and interphalangeal joints. Erosive changes of the ulnar styloid. Periarticular osteopenia in the carpus. Otherwise no osseous, joint space or soft tissue abnormalities. Impression: Degenerative changes of the wrist and interphalangeal joints. Erosive changes of the ulnar styloid. Periarticular osteopenia in the carpus. us Jessica Cortes MD POINT OF CARE IMAGING Fin al Result Performing Organization Address City/[facility] Co de Phone Number SEP OFFICE * VITAMIN D 25 HYDROXY (04/22/2016 3:02 PM EDT) Pathologist [facility] VIT D 25 OH 34.9 30.0 - 120.0 ng/mL [facility] Comment: INTERPRETIVE INFORMATION: ??Vitamin D, 25-Hydroxy <20 ng/mL ? Deficiency 20 - 29 ng/mL ?Insufficiency 30 - 80 ng/mL ?Optimum Level >120 ng/mL ? Possible Toxicity NOTE: For infants and children up to 17 years of age, the optimum level is >=20 ng/mL. This assay accurately quantifies the sum of vitamin D3, 25-Hydroxy and vitamin D2, 25-Hydroxy. Blood specimen (specimen) 04/22/2016 3:02 PM EDT 04/22/2016 5:49 PM EDT Jessica Cortes MD CHEMISTRY ORDERABLES Siobhan l Result Performing Organization Address [facility] de Phone Number [facility] [address] [place] [address] * DSDNA AB REFLEX TO TITER -REF LAB (04/22/2016 3:02 PM EDT) [facility] DNA Ab DS None Detected None Detected [employer] Comment: INTERPRETIVE INFORMATION: Double-Stranded DNA (dsDNA) Antibody, IgG by DOROTHEA Positivity for anti-double stranded DNA (anti-dsDNA) IgG antibody is a diagnostic criterion of systemic lupus erythematosus (SLE). Specimens are initially screened by enzyme-linked immunosorbent assay (DOROTHEA). All DOROTHEA results reported as detected (positive) are confirmed by a highly specific IFA titer (Crithidia luciliae indirect fluorescent test [RUPAL]). Some patients with early or inactive SLE may be positive for anti-dsDNA IgG by DOROHTEA but negative by RUPAL. If the patient is negative by RUPAL but positive by DOROTHEA and clinical suspicion remains, consider antinuclear antibody (BRET) testing by IFA. Additional information and recommendations for testing may be found at http://[email or web address]/[email or web address]/[email or web address] ndex.[email or web address]. Blood specimen (specimen) UPPER LIMB STRUCTURE / Unknown 04/22/2016 3:02 PM EDT 04/22/2016 6:29 PM EDT Jessica Cortes MD IMMUNOLOGY ORDERABLES Fin al Result Performing Organization Address City/[facility]/ZIP Co de Phone Number [employer] [address] [place] [address] * COMPLEMENT PANEL (04/22/2016 3:02 PM EDT) [facility] C3 Complement 125 90 - 180 mg/dL [facility] C4 Complement 31 10 - 40 mg/dL [facility] Blood specimen (specimen) UPPER LIMB STRUCTURE / Unknown 04/22/2016 3:02 PM EDT 04/22/2016 5:49 PM EDT Jessica Cortes MD IMMUNOLOGY ORDERABLES Fin al Result Performing Organization Address [facility] de Phone Number [facility] [address] [place] [address] * HEPATITIS B CORE ANTIBODY IGM ACUTE TITER (04/22/2016 3:02 PM EDT) [facility] Hep B Core IgM Negative Negative [facility] Blood specimen (specimen) UPPER LIMB STRUCTURE / Unknown 04/22/2016 3:02 PM EDT 04/22/2016 5:49 PM EDT Jessica Cortes MD IMMUNOLOGY ORDERABLES Fin al Result Performing Organization Address [facility] Co de Phone Number [facility] [address] [place] [address] * RIBONUCLEIC PROTEIN (MICHAEL) ANTIBODY, IGG -REF LAB (04/22/2016 3:02 PM EDT) [facility] 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 Negative ??30 - 40 AU/mL ................ Equivocal ??41 AU/mL or Greater .......... Positive MOLDING UTILITY WORKER antibody is seen in 95-100 percent of mixed connective tissue disease and is considered specific for this syndrome if other antibodies are negative; MOLDING UTILITY WORKER is also present in 20-30 percent of systemic lupus erythematosus and 15-25 percent of progressive systemic sclerosis. MOLDING UTILITY WORKER antigens also contain epitopes that are immunologically identical to free Melo antigens, therefore, the Melo antibody response must be considered when interpreting MOLDING UTILITY WORKER results. Blood specimen (specimen) 04/22/2016 3:02 PM EDT 04/22/2016 6:29 PM EDT Jessica Cortes MD IMMUNOLOGY ORDERABLES Fin al Result Performing Organization Address City/State/[facility] Co de Phone Number [employer] [address] [place] [address] * MELO (MICHAEL) ANTIBODY, IGG -REF LAB (04/22/2016 3:02 PM EDT) Melo Ab IgG 1 0 - 40 A unit/mL [employer] Comment: INTERPRETIVE INFORMATION: MELO (MICHAEL) Ab, IgG ??29 AU/mL or Less ............. Negative ??30 - 40 AU/mL ................ Equivocal ??41 AU/mL or Greater .......... Positive Melo antibody is very specific for systemic lupus erythematosus (SLE) but only occurs in 30-35% of SLE cases. The presence of antibodies to Melo is often associated with renal disease. Blood specimen (specimen) 04/22/2016 3:02 PM EDT 04/22/2016 6:29 PM EDT Jessica Cortes MD IMMUNOLOGY ORDERABLES Fin al Result [employer] [address] [place] [address] * (ABNORMAL) ANTINUCLEAR ANTIBODY SCREEN (04/22/2016 3:02 PM EDT) [facility] BRET Screen + 1:640(A) [facility] Comment: Centromere pattern. Automated EIA kits on back-order. ??BRET Screen performed by IFA method.BRET samples are screened using an automated EIA assay. ??All samples that screen positive are titered by an IFA method and will include an BRET pattern. A titer of < 1:80 is considered clinically insignificant. ??In general, a titer >= 1:160 is considered significant positive. Blood specimen (specimen) UPPER LIMB STRUCTURE / Unknown 04/22/2016 3:02 PM EDT 04/22/2016 5:49 PM EDT Jessica Cortes MD IMMUNOLOGY ORDERABLES Fin al Result Performing Organization Address [facility] de Phone Number [facility] [address] [place] [address] * (ABNORMAL) RHEUMATOID FACTOR QUANTITATIVE (04/22/2016 3:02 PM EDT) [facility] RF Quant 42(H) <=14 IU/mL [facility] Blood specimen (specimen) 04/22/2016 3:02 PM EDT 04/22/2016 5:49 PM EDT Jessica Cortes MD IMMUNOLOGY ORDERABLES Fin al Result Performing Organization Address [facility] de Phone Number [facility] [address] [place] [address] * HEPATITIS B SURFACE ANTIGEN (04/22/2016 3:02 PM EDT) [facility] Hep Bs Ag Negative Negative [facility] Blood specimen (specimen) 04/22/2016 3:02 PM EDT 04/22/2016 5:49 PM EDT Jessica Cortes MD CHEMISTRY ORDERABLES Siobhan l Result Performing Organization Address [facility] Co de Phone Number [facility] [address] [place] [address] * HEPATITIS C ANTIBODY IGM + IGG (04/22/2016 3:02 PM EDT) Pathologist [facility] Hep C Ab Negative Negative [facility] Blood specimen (specimen) 04/22/2016 3:02 PM EDT 04/22/2016 5:49 PM EDT Jessica Cortes MD IMMUNOLOGY ORDERABLES Fin al Result Performing Organization Address [facility] de Phone Number [facility] [address] [place] [address] * CYCLIC CITRULLINATED PEPTIDE ANTIBODY, IGG (04/22/2016 3:02 PM EDT) [facility] CCP Ab, IgG 4.1 U/mL [facility] Comment: Negative: ??< 5.0 U/mL Positive: ??> or = 5.0 U/mL Blood specimen (specimen) 04/22/2016 3:02 PM EDT 04/22/2016 5:49 PM EDT Jessica Cortes MD IMMUNOLOGY ORDERABLES Fin al Result Performing Organization Address [facility] de Phone Number [facility] [address] [place] [address] * SSB (LA) (MICHAEL) ANTIBODY, IGG -REF LAB (04/22/2016 3:02 PM EDT) SSB Ab IgG 0 0 - 40 A unit/mL [employer] Comment: INTERPRETIVE INFORMATION: SSB (La) (MICHAEL) Ab, IgG ??29 AU/mL or Less ............. Negative ??30 - 40 AU/mL ................ Equivocal ??41 AU/mL or Greater .......... Positive SSB (La) antibody is seen in 50-60% of Sjogren syndrome cases and is specific if it is the only MICHAEL antibody present. 15-25% of patients with systemic lupus erythematosus (SLE) and 5-10% of patients with progressive systemic sclerosis (PSS) also have this antibody. Blood specimen (specimen) 04/22/2016 3:02 PM EDT 04/22/2016 6:29 PM EDT Jessica Cortes MD IMMUNOLOGY ORDERABLES Fin al Result Performing Organization Address City/[facility]/ZIP Co de Phone Number [employer] [address] [place] [address] * SSA (RO) (MICHAEL) ANTIBODY, IGG -REF LAB (04/22/2016 3:02 PM EDT) SSA 52 (Ro) Ab IgG 21 0 - 40 A unit/mL [employer] Comment: INTERPRETIVE INFORMATION: SSA (Ro) (MICHAEL) Ab, IgG ??29 AU/mL or Less ............. Negative ??30 - 40 AU/mL ................ Equivocal ??41 AU/mL or Greater .......... Positive SSA (Ro) antibody is seen in 70-75 percentage of Sjogren syndrome cases, 30-40% of systemic lupus erythematosus (SLE) and 5-10 percentage of progressive systemic sclerosis (PSS). SSA 60 (Ro) Ab IgG 0 0 - 40 A unit/mL [employer] [employer] Comment: ??29 AU/mL or Less ............. Negative ??30 - 40 AU/mL ................ Equivocal ??41 AU/mL or Greater .......... Positive Blood specimen (specimen) 04/22/2016 3:02 PM EDT 04/22/2016 6:29 PM EDT Jessica Cortes MD IMMUNOLOGY ORDERABLES Fin al Result [employer] [address] [place] [address] * TSH REFLEX (04/22/2016 3:02 PM EDT) Pathologist [facility] [place] TSH Reflex 1.380 0.270 - 4.200 mcIU/mL [facility] Blood specimen (specimen) UPPER LIMB STRUCTURE / Unknown 04/22/2016 3:02 PM EDT 04/22/2016 5:49 PM EDT us Jessica Cortes MD CHEMISTRY ORDERABLES Siobhan l Result Performing Organization Address [facility] Co de Phone Number [facility] [address] [place] [address] * SEDIMENTATION RATE AUTOMATED (04/22/2016 3:02 PM EDT) [facility] Sed Rate 15 0 - 20 mm/hr [facility] Blood specimen (specimen) UPPER LIMB STRUCTURE / Unknown 04/22/2016 3:02 PM EDT 04/22/2016 5:49 PM EDT us Jessica Cortes MD HEMATOLOGY ORDERABLES Fin al Result Performing Organization Address [facility] Co de Phone Number [facility] [address] [place] [address] * C-REACTIVE PROTEIN (04/22/2016 3:02 PM EDT) [facility] CRP 3.63 <=5.00 mg/L [facility] Blood specimen (specimen) UPPER LIMB STRUCTURE / Unknown 04/22/2016 3:02 PM EDT 04/22/2016 5:49 PM EDT us Jessica Cortes MD CHEMISTRY ORDERABLES Siobhan l Result Performing Organization Address [facility] Co de Phone Number [facility] [address] [place] [address] * CBC WITH AUTO DIFF (04/22/2016 3:02 PM EDT) WBC 7.4 4.0 - 11.0 x10(3)/mcL [facility] RBC 4.95 3.80 - 5.10 x10(6)/mcL [facility] Hgb 14.6 12.0 - 15.6 gm/dL [facility] Hct 43.9 35.7 - 45.9 % [facility] MCV 88.7 82.5 - 99.8 fL [facility] MCH 29.4 27.0 - 34.3 pg [facility] MCHC 33.2 32.1 - 35.3 gm/dL [facility] RDW 13.1 11.5 - 15.0 % [facility] Platelet 289 144 - 423 x10(3)/mcL [facility] MPV 9.1 6.8 - 10.8 fL [facility] Blood specimen (specimen) UPPER LIMB STRUCTURE / Unknown 04/22/2016 3:02 PM EDT 04/22/2016 5:49 PM EDT us Jessica Cortes MD HEMATOLOGY ORDERABLES Fin al Result [facility] [address] [place] [address] * COMPREHENSIVE METABOLIC PANEL (04/22/2016 3:02 PM EDT) Pathologist [facility] [place] Sodium 142 136 - 145 mmol/L [facility] Potassium 3.8 3.5 - 5.0 mmol/L [facility] Chloride 102 98 - 107 mmol/L [facility] Total CO2 25 22 - 29 mmol/L [facility] Anion Gap 15 7 - 16 mmol/L [facility] Calcium 9.8 8.6 - 10.2 mg/dL [facility] Glucose Lvl 86 74 - 100 mg/dL [facility] BUN 8 6 - 20 mg/dL [facility] Creatinine 0.77 0.51 - 1.30 mg/dL [facility] Albumin 4.4 3.5 - 5.2 gm/dL [facility] Total Protein 7.4 6.4 - 8.3 gm/dL [facility] Bili Total 0.3 0.1 - 1.3 mg/dL [facility] AST 17 <=40 IU/L [facility] ALT 10 <=41 IU/L [facility] Alk Phos 86 35 - 104 IU/L [facility] GFR Afr Am >60 [facility] GFR Non Afr Am >60 [facility] Blood specimen (specimen) UPPER LIMB STRUCTURE / Unknown 04/22/2016 3:02 PM EDT 04/22/2016 5:49 PM EDT Jessica Cortes MD CHEMISTRY ORDERABLES Edit ed Result - Final [facility] [address] [place] [address] documented in this encounter Visit Diagnoses Diagnosis Rheumatoid arthritis involving multiple sites, unspecified rheumatoid factor presence- Primary Raynaud's phenomenon Raynaud's syndrome Neck pain Cervicalgia Osteoporosis Osteoporosis, unspecified Therapeutic drug monitoring Encounter for therapeutic drug monitoring Neck pain Cervicalgia Osteoporosis Osteoporosis, unspecified documented in this encounter Care Teams Glass Laminating Operator Relationship Specialty Start Date End Date Julisa Kerr MD [address] [place] [address] PCP - General 02/22/11 Jessica Cortes MD [address] [place] [address] Internal Medicine-Rheumatology 04/26/16 documented as of this encounter
--- OUTSIDE RECORDS SUMMARY | 2024-08-22 21:53 | XMS_ITS | Encounter Summary ---
Author [place] [address] Care Team Providers Care Gate Agent Name Role Phone Unavailable Primary Care Provider Unavailabl e Encounter Details Date Type Department Care Team (Late st Contact Info) Description 07/03/2000 8:40 AM EDT - 07/03/2000 11:59 PM EDT Hospital Encounter HST LXE [facility] Sara Trinh [address] [facility] [place] [address] [phone] (Fax) Social History Tobacco Use Types Packs/Day [...] Appointment [facility] [address] [address] 10/25/2024 10:45 AM EST Office Visit [facility] [address] [place] [phone] Jessica Cortes MD [address] [facility] Building [address] [place] [address] 01/25/2025 9:00 AM EDT Appointment [place] [address] [place] [address] 05/09/2025 11:00 AM EDT Appointment [place] [address] [place] [address] 05/09/2025 11:15 AM EDT [address] [place] [address] Susana Garay MD [address] [place] [address] [place] [address] documented as of this encounter Visit Diagnoses Not on filedocumented in this encounter
--- OUTSIDE RECORDS SUMMARY | 2024-08-22 21:53 | XMS_ITS | Encounter Summary ---
Author Organization [place] [address] Care Team Providers Care Deportation Officer Name Role Phone Unavailable Primary Care Provider Unavailabl e Encounter Details Date Type Department Care Team (Late st Contact Info) Description 07/07/2000 12:57 AM EDT - 07/10/2000 8:51 PM EDT Hospital Encounter HST [facility] [address] [facility] [place] [address] [phone] (Fax) Social History Tobacco Use Types Packs/Day Years Used Date Smoking Tobacco: Never Assessed Comments Unknown Sex and Gender Information Value Date Recorded Sex Assigned at Not on file Legal Sex Female 5:21 PM EDT Gender Identity Not on file Sexual Orientation Not on file documented as of this encounter Discharge Summaries * Unknown, U - 04/24/2010 1:45 AM EDT documented in this encounter H&P Notes * Unknown, U - 05/09/2010 1:05 AM EDT documented in this encounter Consult Notes * Unknown, U - 05/09/2010 1:05 AM EDT documented in this encounter Plan of Treatment Upcoming Encounters Date Type Department Care Team (Late st Contact Info) Description 08/31/2024 8:30 AM EST Appointment [facility] [address] [place] [place] [address] 10/25/2024 10:45 AM EST Office Visit [facility] R[facility] [address] [place] [address] Jessica Cortes MD [address] [facility] [address] [place] [address] 01/25/2025 9:00 AM EDT Appointment [address] [place] [address] 05/09/2025 11:00 AM EDT Appointment [address] [place] [address] 05/09/2025 11:15 AM EDT Appointment [address] [place] [address] Susana Garay MD [address] [place] [address] [place] [id number] documented as of this encounter Visit Diagnoses Not on filedocumented in this encounter
--- OUTSIDE RECORDS SUMMARY | 2024-08-22 21:53 | XMS_ITS | Encounter Summary ---
Author Organization [place] [address] Care Team Providers Care Can Runner Name Role Phone Julisa Kerr MD Primary Care Provider [phone] Reason for Visit * Reason Comments Establish Care new pt, has not been here in over 3 yrs Arthritis has not had any meds in a long time Encounter Details Date Type Department Care Team (Late st Contact Info) Description 02/22/2011 3:00 PM EDT Office Visit [facility] [address] [place] [address] Julisa Kerr MD [address] [place] [address] Rheumatoid arthritis (HCC) (Primary Dx); Muscle spasm Social History Tobacco Use Types Packs/Day Years [...] Sign Reading Time Taken Comments Blood Pressure 170/64 02/22/2011 3:10 PM EDT Pulse - - Temperature 36.2 ??C (97.2 ??F) 02/22/2011 3:10 PM ED T Respiratory Rate - - Oxygen Saturation - - Inhaled Oxygen Concentration - - Weight 54.9 kg (121 lb) 02/22/2011 3:10 PM EDT Height - - Body Mass Index - - documented in this encounter Ordered Prescriptions Prescription Sig Dispense Quantity Refills Last Filled Start Date End Date cyclobenzaprine (FLEXERIL) 5 mg tabletIndications: Muscle spasm Take 1 Tab by mouth every 8 hours as needed for Muscle spasms for 90 days. 30 Tab 1 02/22/2011 12/15/2012 hydrocodone-acetam inophen (VICODIN) 5-500 mg per tabletIndications: Rheumatoid arthritis(714.0) Take 1 Tab by mouth every 6 hours as needed for Pain. 30 Tab 1 02/22/2011 11/18/2012 predniSONE (DELTASONE) 20 mg tabletIndications: Rheumatoid arthritis(714.0) Take by mouth. 3 tabs po daily for 3 days, then 2tabs po daily for 3 days, then 1 tab daily for 3 days. 18 Tab 0 02/22/2011 06/11/2011 documented in this encounter Progress Notes * Julisa Kerr MD - 02/22/2011 3:11 PM EDT Subjective: Patient ID: NAKUL NEWSOME is a 40 y.o. female. Rheumatoid Arthritis The history is provided by the patient. This is a chronic problem. The current episode started morethan 1 year ago. The problem occurs constantly. The problem has been gradually worsening. The pain is associated with no known injury. The pain is present in the lumbar spine (hands). The pain quality is described as aching. The pain does not radiate. The pain is at a severity of 7/10. The pain is medium. The symptoms are worsened by bending and twisting. The pain is worse during the day. Stiffness is present in the morning. Pertinent negatives include no chest pain, no fever and no abdominal pain. She has tried ice and NSAIDs for the symptoms. Pt is here today for her arthritis, states she has not had medicine for a while. Patient's medications, allergies, past medical, surgical, social and family histories were reviewedand updated as appropriate. Review of Systems Constitutional: Negative for fever, chills, activity change and fatigue. HENT: Negative for ear pain, congestion, sore throat, rhinorrhea, sneezing, neck pain and sinus pressure. Eyes: Negative. Respiratory: Negative for chest tightness, shortness of breath and wheezing. Cardiovascular: Negative. Negative for chest pain and palpitations. Gastrointestinal: Negative for nausea, vomiting, abdominal pain and diarrhea. Musculoskeletal: Positive for joint swelling and arthralgias. Negative for back pain. Skin: Negative for rash and wound. Neurological: Negative. Hematological: Negative. Psychiatric/Behavioral: Negative for behavioral problem, sleep disturbance and decreased concentration. The patient is not nervous/anxious and is not hyperactive. All other systems reviewed and are negative. Objective: Filed Vitals: 02/22/2011 3:10 PM BP: 170/64 Temp: 97.2 ??F (36.2 ??C) TempSrc: Tympanic Weight: 121 lb (54.885 kg) Physical Exam Nursing note and vitals reviewed. Constitutional: She is oriented. She appears well-developed and well-nourished. No distress. HENT: Head: Normocephalic and atraumatic. Eyes: Conjunctivae and extraocular motions are normal. Pupils are equal, round, and reactive to light. Neck: Normal range of motion. Neck supple. Cardiovascular: Normal rate, regular rhythm and normal heart sounds. No murmur heard. Pulmonary/Chest: Effort normal and breath sounds normal. No respiratory distress. She has no wheezes. Abdominal: Soft. Bowel sounds are normal. She exhibits no distension. No tenderness. She has no rebound and no guarding. Musculoskeletal: Normal range of motion. She exhibits tenderness. She exhibits no edema. Boggy pip joints. +phanels on the right with wrist deformity from prev fracture Lymphadenopathy: She has no cervical adenopathy. Neurological: She is alert and oriented. No cranial nerve deficit. Skin: Skin is warm. No rash noted. Assessment and Plan: Nakul was seen today for establish care and arthritis. Diagnoses and associated orders for this visit: - Rheumatoid arthritis - Prednisone 20 mg tab -- Take by mouth. 3 tabs po daily for 3 days, then 2tabs po daily for 3 days, then 1 tab daily for 3 days. - Hydrocodone-acetaminophen 5 mg-500 mg tab -- Take 1 Tab by mouth every 6 hours as needed for Pain. - Muscle spasm - Cyclobenzaprine 5 mg tab -- Take 1 Tab by mouth every 8 hours as needed for Muscle spasms for 90 days. wrist splint. Back to dr hayes when able Also cts on the right. documented in this encounter Plan of Treatment Upcoming Encounters Date Type Department Care Team (Late st Contact Info) Description 08/31/2024 8:30 AM EST Appointment [address] [address] 10/25/2024 10:45 AM EST Office Visit [facility] [address] [place] [address] Jessica Cortes MD [address] [place] [address] 01/25/2025 9:00 AM EDT Appointment [address] [address] 05/09/2025 11:00 AM EDT Appointment [address] [address] 05/09/2025 11:15 AM EDT Appointment [address] [address] Susana Garay MD [address] [place] [address] documented as of this encounter Visit Diagnoses Diagnosis Rheumatoid arthritis(714.0)- Primary Rheumatoid arthritis Muscle spasm Spasm of muscle documented in this encounter Care Teams Can Runner Relationship Specialty Start Date End Date Julisa Kerr MD [address] [place] [address] PCP - General 02/22/11 documented as of this encounter
--- OUTSIDE RECORDS SUMMARY | 2024-08-22 21:53 | XMS_ITS | Encounter Summary ---
Author Organization [place] [address] Care Team Providers Care Communication Signals Intelligence Name Role Phone Julisa Kerr MD Primary Care Provider [phone] Reason for Visit * Reason Comments URI Encounter Details Date Type Department Care Team (Late Contact Info) Description 11/18/2012 4:00 PM EST Office Visit [facility] [address] [place] [phone] Julisa Kerr MD [address] [place] [address] Bronchitis (Primary Dx); Other screening mammogram Social History [...] Reading Time Taken Comments Blood Pressure 118/72 11/18/2012 4:36 PM EST Pulse - - Temperature 36.7 ??C (98 ??F) 11/18/2012 4:36 PM EST Respiratory Rate - - Oxygen Saturation - - Inhaled Oxygen Concentration - - Weight 54 kg (119 lb) 11/18/2012 4:36 PM EST Height 157.5 cm (5' 2 ) 11/18/2012 4:36 PM EST Body Mass Index 21.77 11/18/2012 4:36 PM EST documented in this encounter Ordered Prescriptions Prescription Sig Dispense Quantity Refills Last Filled Start Date End Date albuterol (PROVENTIL;VENTOLI N) 90 mcg/actuation inhalerIndications :Bronchitis Inhale 2 Puffs into the lungs every 4 hours as needed for Wheezing for 90 days. 1 Inhaler 2 11/18/2012 3 sulfamethoxazole-t rimethoprim (SULFAMETHOXAZOLE- TRIMETHOPRIM) 800-160 mg per tabletIndications: Bronchitis Take 1 Tab by mouth 2 times daily for 10 days. 20 Tab 0 11/18/2012 3 documented in this encounter Progress Notes * Julisa Kerr MD - 11/18/2012 4:35 PM EST Subjective: Patient ID: Yuliet Newsome is a 42 y.o. female. HPI Upper Respiratory Infection: Patient complains of symptoms of a URI. Symptoms include congestion, cough and sore throat. Onset of symptoms was 2 weeks ago, unchanged since that time. She also c/o congestion and cough described as non- productive, without wheezing, dyspnea or hemoptysis for the past 2 weeks . She is drinking moderate amounts of fluids. Evaluation to date: none. Treatment to date: none. Believes she had the flu a few weeks ago and now has a terrible cough Patients past medical, family and social histories were reviewed and updated. There were no changesexcept as noted. Review of Systems Constitutional: Positive for fever. Negative for chills, activity change and fatigue. HENT: Positive for ear pain, congestion, sneezing and sinus pressure. Negative for sore throat, rhinorrhea and neck pain. Eyes: Negative. Respiratory: Positive for cough and wheezing. Negative for chest tightness and shortness of breath. Cardiovascular: Negative. Negative for chest pain and palpitations. Gastrointestinal: Negative for nausea, vomiting, abdominal pain and diarrhea. Musculoskeletal: Negative for back pain and joint swelling. Skin: Negative for rash and wound. Neurological: Negative. Hematological: Negative. Psychiatric/Behavioral: Negative for behavioral problems, disturbed wake/sleep cycle and decreased concentration. The patient is not nervous/anxious and is not hyperactive. All other systems reviewed and are negative. Objective: Filed Vitals: 11/18/12 1636 BP: 118/72 Temp: 98 ??F (36.7 ??C) Height: 5' 2 (1.575 m) Weight: 119 lb (53.978 kg) Body mass index is 21.77 kg/(m^2). Physical Exam Nursing note and vitals reviewed. Constitutional: She is oriented to person, place, and time. She appears well- developed and well-nourished. No distress. HENT: Head: Normocephalic and atraumatic. Right Ear: External ear normal. Left Ear: External ear normal. Mouth/Throat: Oropharynx is clear and moist. ttp bilateral maxillary sinus. Cobblestoning of oropharynx Eyes: Conjunctivae and EOM are normal. Pupils are equal, round, and reactive to light. Neck: Normal range of motion. Neck supple. Cardiovascular: Normal rate, regular rhythm and normal heart sounds. No murmur heard. Pulmonary/Chest: Effort normal. No respiratory distress. She has wheezes. Abdominal: Soft. Bowel sounds are normal. She exhibits no distension. There is no tenderness. Thereis no rebound and no guarding. Musculoskeletal: Normal range of motion. She exhibits no edema. Lymphadenopathy: She has no cervical adenopathy. Neurological: She is alert and oriented to person, place, and time. No cranial nerve deficit. Skin: Skin is warm. No rash noted. Psychiatric: She has a normal mood and affect. Her behavior is normal. Judgment and thought contentnormal. Assessment and Plan: Yuliet was seen today for uri. Diagnoses and associated orders for this visit: Bronchitis - methylPREDNISolone acetate (DEPO-MEDROL) injection 80 mg; Inject 1 mL into the muscle once. - sulfamethoxazole-trimethoprim (SULFAMETHOXAZOLE-TRIMETHOPRIM) 800-160 mg per tablet; Take 1 Tab by mouth 2 times daily for 10 days. - albuterol (PROVENTIL;VENTOLIN) 90 mcg/actuation inhaler; Inhale 2 Puffs into the lungs every 4 hours as needed for Wheezing for 90 days. Other screening mammogram - Mammography digital screening bilateral; Future A new medication was prescribed during this office visit. I did discuss with the patient the reasonfor prescribing this new medication. I also did inform the patient of possible likely side effects,but also encouraged the patient to read the medication insert that will accompany their prescription and encouraged her to discuss any questions about the insert with their pharmacist. She was instruc mihir to call if having side effects or possible allergic reaction after taking. I also discussed with her the risk of stopping the medication or deviating from prescribing instructions. Dosing instructions are present on the AVS and she is aware. I inquired both patient and family of any questions and answered accordingly. documented in this encounter Plan of Treatment Upcoming Encounters Date Type Department Care Team (Late st Contact Info) Description 08/31/2024 8:30 AM EST Appointment [address] [place] [address] 10/25/2024 10:45 AM EST Office Visit [facility] [address] [place] [address] Jessica Cortes MD [address] [facility] Building [address] [place] [address] 01/25/2025 9:00 AM EDT Appointment [address] [address] 05/09/2025 11:00 AM EDT Appointment [address] [address] 05/09/2025 11:15 AM EDT Appointment [address] [place] [address] Susana Garay MD [address] [place] [address] [place] [address] documented as of this encounter Visit Diagnoses Diagnosis Bronchitis- Primary Bronchitis, not specified as acute or chronic Other screening mammogram documented in this encounter Administered Medications Inactive Administered Medications - up to 1 most recent administrations Medication Order MAR Action Action Date Dose Rate Site methylPREDNISolone acetate (DEPO-MEDROL) injection 80 mg 80 mg, Intramuscular, ONCE, 1 dose, On Fri11/18/12 at 1715, Dx: 1. BronchitisIndications:Bronchitis Given 11/18/2012 5:06 PM EST 80 mg documented in this encounter Discontinued Medications Medication Sig Discontinue Reason Start Date End Da te hydrocodone-acetaminophe n (VICODIN) 5-500 mg per tabletIndications:Rheuma toid arthritis(714.0) Take 1 Tab by mouth every 6 hours as needed for Pain. 02/22/2011 11/18/2012 documented as of this encounter Care Teams Communication Signals Intelligence Relationship Specialty Start Date End Date Julisa Kerr MD [address] [place] [address] PCP - General 02/22/11 documented as of this encounter
--- OUTSIDE RECORDS SUMMARY | 2024-08-22 21:53 | XMS_ITS | Encounter Summary ---
Author Organization [place] [address] Care Team Providers Care Lifter/Driver Name Role Phone Unavailable Primary Care Provider Unavailabl e Encounter Details Date Type Department Care Team (Late st Contact Info) Description 04/29/1991 2:41 PM EDT - 04/29/1991 11:59 PM EDT Hospital Encounter HST EPIC CON [facility]K [facility] Social History Tobacco Use Types Packs/Day Years [...] Description 08/31/2024 8:30 AM EST [address]ment [address] [place] [address] 10/25/2024 10:45 AM EST Office Visit [facility] [address] [facility] [address] [place] [address] Jessica Cortes MD [address] [facility] [address] [place] [address] 01/25/2025 9:00 AM EDT Appointment [address] [place] [address] 05/09/2025 11:00 AM EDT Appointment [address] [place] [address] 05/09/2025 11:15 AM EDT [address]ointment [address] [place], [place] [id number] Susana Garay MD [address] [place] [address] [place] [address] documented as of this encounter Visit Diagnoses Not on filedocumented in this encounter
--- OUTSIDE RECORDS SUMMARY | 2024-08-22 21:53 | XMS_ITS | Encounter Summary ---
[place] [address] Care Team Providers Care Crm Consultant Name Role Phone Julisa Kerr MD Primary Care Provider [phone] Jessica Cortes MD Unavailable [phone] Reason for Visit * Reason Onset Date Comments Results 04/24/2016 Encounter Details Date Type Department Care Team (Late st Contact Info) Description 04/24/2016 Telephone SEP Rheumatology [facility] [address] [facility] Building [address] [place] [phone] Jessica Cortes MD [address] [phone] Results Social History Tobacco Use Types Packs/Day [...] Telephone Encounter - Miya Haider MA - 04/24/2016 5:04 PM EDT Left message advising patient of x ray results * Telephone Encounter - Jessica Cortes MD - 04/24/2016 4:59 PM EDT Please let the patient know x rays showed joint space narrowing in the wrists, knuckles and fingersas well as erosion in the left wrist. Changes worse in the left wrist. X rays of the feet were normal. * Telephone Encounter - Thania Bedolla - 04/24/2016 2:35 PM EDT Pt requesting imaging results documented in this encounter Plan of Treatment Upcoming Encounters Date Type Department Care Team (Late st Contact Info) Description 08/31/2024 8:30 AM EST Appointment [address] [place] [address] 10/25/2024 10:45 AM EST Office Visit [facility] [address] [place] [address] Jessica Cortes MD [address] [facility] Building 19 [place] [address] 01/25/2025 9:00 AM EDT Appointment [place] [address] [place] [address] 05/09/2025 11:00 AM EDT [address]ointment [address] [place] [address] 05/09/2025 11:15 AM EDT Appointment [address] [place] [address] Susana Garay MD [address] [place] [address] [place] [address] documented as of this encounter Visit Diagnoses Not on filedocumented in this encounter Care Teams Crm Consultant Relationship Specialty Start Date End Date Julisa Kerr MD [address] [phone] PCP - General 02/22/11 Jessica Cortes MD [address] [place] [address] Internal Medicine-Rheumatology 04/26/16 documented as of this encounter
--- OUTSIDE RECORDS SUMMARY | 2024-08-22 21:53 | XMS_ITS | Encounter Summary ---
Author Organization [place] [address] Care Team Providers Care Boiler Tube Blower Name Role Phone Julisa Kerr MD Primary Care Provider [phone] Reason for Visit * Reason Comments PPD Placement Encounter Details Date Type Department Care Team (Latest Contact Info) Description 09/18/2015 9:15 AM EST Clinical Support [facility] 100 [place] [address] Willa Zee RMA 19 [facility] [address] [place] [id number] PPD screening test (Primary Dx) Social History [...] as of this encounter Progress Notes * Willa Zee RMA - 09/18/2015 9:48 AM EST Subjective: Patient ID: Yuliet Newsome is a 44 y.o. female. Chief Complaint Patient presents with ??? PPD Placement HPI: Patients past medical, family and social histories were reviewed and updated. There were no changesexcept as noted. Review of Systems Objective: There were no vitals filed for this visit.There is no weight on file to calculate BMI. Physical Exam Assessment and Plan: Yuliet was seen today for ppd placement. Diagnoses and all orders for this visit: PPD screening test Other orders - Place PPD No Follow-up on file. documented in this encounter Plan of Treatment Upcoming Encounters Date Type Department Care Team (Late st Contact Info) Description 08/31/2024 8:30 AM EST Appointment [address] [place] [address] 10/25/2024 10:45 AM EST Office Visit [facility] RHEUMAT[facility] [address] [place] [address] Jessica Cortes MD [address] [place] [address] 01/25/2025 9:00 AM EDT Appointment [address] [address] 05/09/2025 11:00 AM EDT Appointment [address] [address] 05/09/2025 11:15 AM EDT Appointment [address] [address] Susana Garay MD [address] [place] [address] [place] [address] documented as of this encounter Visit Diagnoses Diagnosis PPD screening test- Primary Screening examination for pulmonary tuberculosis documented in this encounter Orders Nursing Count Last Ordered Date First Orde red Date PLACE PPD 1 09/18/2015 documented in this encounter Care Teams Boiler Tube Blower Relationship Specialty Start Date End Date Julisa Kerr MD [address] [place] [address] PCP - General 02/22/11 documented as of this encounter
--- OUTSIDE RECORDS SUMMARY | 2024-08-22 21:53 | XMS_ITS | Encounter Summary ---
Author Organization [place] [address] Care Team Providers Care Head Pastry Chef Name Role Phone Julisa Kerr MD Primary Care Provider [phone] Reason for Visit * Reason Comments PPD Reading Encounter Details Date Type Department Care Team (Latest Contact Info) Description 05/15/2013 8:15 AM EDT Clinical Support [facility] 100 [place] [address] Radha Ruiz, [facility] 19 [place], [place] [phone] PPD negative (Primary Dx) Social History Tobacco Use Types [...] AM EST Appointment [facility] [address] [address] 10/25/2024 10:45 AM EST Office Visit [facility] R[facility] [address] [facility] [address] [place] [address] Jessica Cortes MD 651 [facility] Building 19 [place], [place] [phone] 01/25/2025 9:00 AM EDT Appointment [address] [address] [place] [address] 05/09/2025 11:00 AM EDT Appointment [address] [place] [address] 05/09/2025 11:15 AM EDT Appointment [address] [place] [address] Susana Garay MD [address] [place] [phone] documented as of this encounter Visit Diagnoses Diagnosis PPD negative- Primary Screening examination for pulmonary tuberculosis documented in this encounter Care Teams Head Pastry Chef Relationship Specialty Start Date End Date Julisa Kerr MD 100 [place] [address] PCP - General 02/22/11 documented as of this encounter
--- OUTSIDE RECORDS SUMMARY | 2024-08-22 21:53 | XMS_ITS | Encounter Summary ---
Author Organization [place] [address] Care Team Providers Care Dyno Technician Name Role Phone Julisa Kerr MD Primary Care Provider [phone] Reason for Visit * Reason Comments Arthritis Encounter Details Date Type Department Care Team (Late Contact Info) Description 11/09/2014 1:15 PM EST Office Visit [facility] 100 [place] [phone] Julisa Kerr MD 100 [place] [address] Rheumatoid arthritis(714.0) ([facility]) (Primary Dx) Social History Tobacco Use Types [...] Sign Reading Time Taken Comments Blood Pressure 116/74 11/09/2014 1:32 PM EST Pulse - - Temperature 36.5 ??C (97.7 ??F) 11/09/2014 1:32 PM ES T Respiratory Rate - - Oxygen Saturation - - Inhaled Oxygen Concentration - - Weight 58.5 kg (129 lb) 11/09/2014 1:32 PM EST Height 158.8 cm (5' 2.5 ) 11/09/2014 1:32 PM EST Body Mass Index 23.22 11/09/2014 1:32 PM EST documented in this encounter Ordered Prescriptions Prescription Sig Dispense Quantity Refills Last Filled Start Date End Date cyclobenzaprine (FLEXERIL) 5 mg Oral TabletIndications: Rheumatoid arthritis(714.0) Take 1 Tab by mouth every 8 hours as needed for up to 10 days. 30 Tab 1 11/09/2014 11/01/2015 predniSONE (DELTASONE) 20 mg Oral TabletIndications: Rheumatoid arthritis(714.0) Take by mouth. 3 tabs po daily for 3 days, then 2tabs po daily for 3 days, then 1 tab daily for 3 days. 18 Tab 0 11/09/2014 09/20/2015 documented in this encounter Progress Notes * Julisa Kerr MD - 11/09/2014 1:34 PM EST Subjective Subjective: Patient ID: Yuliet Newsome is a 44 y.o. female. Chief Complaint Patient presents with ??? Arthritis Arthritis This is a chronic problem. The current episode started more than 1 year ago. The problem occurs constantly. The problem is unchanged. The quality of the pain is described as aching. The pain is at a severity of 8/10. The pain is severe. Pertinent negatives include no abdominal pain, chest pain or fever. Pt is here today for her arthritis. Pt states that over the past month the pain has been getting worse on her left side Patients past medical, family and social histories were reviewed and updated. There were no changesexcept as noted. Review of Systems Constitutional: Negative for fever, chills, activity change and fatigue. HENT: Negative for congestion, ear pain, rhinorrhea, sinus pressure, sneezing and sore throat. Eyes: Negative. Respiratory: Negative for chest tightness, shortness of breath and wheezing. Cardiovascular: Negative. Negative for chest pain and palpitations. Gastrointestinal: Negative for nausea, vomiting, abdominal pain and diarrhea. Musculoskeletal: Positive for joint swelling, arthralgias and arthritis. Negative for back pain andneck pain. Skin: Negative for rash and wound. Neurological: Negative. Psychiatric/Behavioral: Negative for behavioral problems, sleep disturbance and decreased concentration. The patient is not nervous/anxious and is not hyperactive. All other systems reviewed and are negative. Objective Objective: Filed Vitals: 11/09/14 1332 BP: 116/74 Temp: 97.7 ??F (36.5 ??C) TempSrc: Tympanic Height: 5' 2.5 (1.588 m) Weight: 129 lb (58.514 kg) Body mass index is 23.2 kg/(m^2). Physical Exam Constitutional: She is oriented to person, place, and time. She appears well- developed and well-nourished. No distress. HENT: Head: Normocephalic and atraumatic. Eyes: Conjunctivae and EOM are normal. Pupils [...] rebound and no guarding. Musculoskeletal: She exhibits edema and tenderness. Joint deformity of bilateral hands. Boggy left metacarpal joints. Lymphadenopathy: She has no cervical adenopathy. Neurological: She is alert and oriented to person, place, and time. No cranial nerve deficit. Skin: Skin is warm. No rash noted. Psychiatric: She has a normal mood and affect. Her behavior is normal. Judgment and thought contentnormal. Nursing note and vitals reviewed. Assessment and Plan: Yuliet was seen today for arthritis. Diagnoses and associated orders for this visit: Rheumatoid arthritis(714.0) - predniSONE (DELTASONE) 20 mg Oral Tablet; Take by mouth. 3 tabs po daily for 3 days, then 2tabs po daily for 3 days, then 1 tab daily for 3 days. - cyclobenzaprine (FLEXERIL) 5 mg Oral Tablet; Take 1 Tab by mouth every 8 hours as needed for up to 10 days. Above problems were discussed with patient and [...] given on the AVS for today's visit. A new medication was prescribed during this [...] family of any questions and answered accordingly. No Follow-up on file. documented in this encounter Plan of Treatment Upcoming Encounters Date Type Department Care Team (Late st Contact Info) Description 08/31/2024 8:30 AM EST [address]ointment [address] [place] [address] 10/25/2024 10:45 AM EST Office Visit [facility] R[facility]AT[facility] [address] [place] [address] Jessica Cortes MD [address] [facility] Building 19 [place] [address] 01/25/2025 9:00 AM EDT Appointment [address] [place] [address] 05/09/2025 11:00 AM EDT Appointment [address] [place] [address] 05/09/2025 11:15 AM EDT Appointment [address] [place] [address] Susana Garay MD [address] [place] [address] [place] [address] documented as of this encounter Visit Diagnoses Diagnosis Rheumatoid arthritis(714.0)- Primary Rheumatoid arthritis documented in this encounter Discontinued Medications Medication Sig Discontinue Reason Start Date End Da te predniSONE (DELTASONE) 20 mg tabletIndications:Rheum atoid arthritis(714.0),Low back sprain Take by mouth. 3 tabs po daily for 3 days, then 2tabs po daily for 3 days, then 1 tab daily for 3 days. DELETE-Therapy completed 12/02/2013 11/09/2014 documented as of this encounter Care Teams Dyno Technician Relationship Specialty Start Date End Date Julisa Kerr MD 100 [place] [address] PCP - General 02/22/11 documented as of this encounter
--- OUTSIDE RECORDS SUMMARY | 2024-08-22 21:53 | XMS_ITS | Encounter Summary ---
Author [place] [address] Care Team Providers Care Cert Pharmacy Tech Name Role Phone Unavailable Primary Care Provider Unavailabl e Encounter Details Date Type Department Care Team (Late st Contact Info) Description 09/16/2007 11:35 AM EST - 09/16/2007 11:59 PM EST Hospital Encounter [facility] Mike Crowell MD [address] [address] Discharge Disposition: Home or Self Care Social [...] [facility] [address] [place] [address] 10/25/2024 10:45 AM EST Office Visit [facility] RHEUMATOLOG[facility] [address] [place] [phone] Jessica Cortes MD [address] 19 [place] [address] 01/25/2025 9:00 AM EDT Appointment [address] [place] [address] 05/09/2025 11:00 AM EDT Appointment [address] [place] [address] 05/09/2025 11:15 AM EDT Appointment [address], [place] [phone] Susana Garay MD [address] [place] [address] [place] [address] documented as of this encounter Visit Diagnoses Not on filedocumented in this encounter
--- OUTSIDE RECORDS SUMMARY | 2024-08-22 21:53 | XMS_ITS | Encounter Summary ---
Author Organization [place] [address] Care Team Providers Care Gm Video Name Role Phone Julisa Kerr MD Primary Care Provider [phone] Encounter Details Date Type Department Care Team (Latest Contact Info) Description 09/20/2015 5:05 PM EST - 09/20/2015 11:59 PM EST Hospital Encounter [facility] [address] [facility] [place] [address] PRAVEEN (stress urinary incontinence, female) (Primary Dx); Weight gain; Rheumatoid arthritis involving both hands with positive rheumatoid factor (HCC) Discharge Disposition: [...] Appointment [facility] [address] [place] [address] 10/25/2024 10:45 AM EST Office Visit [facility] RHEUMAT[facility] [address] [place] [address] Jessica Cortes MD [address] 19 [place] [address] 01/25/2025 9:00 AM EDT Appointment [address] [address] [place] [address] 05/09/2025 11:00 AM EDT Appointment [address] [address] [place] [address] 05/09/2025 11:15 AM EDT Appointment [address] [address] [place] [address] Susana Garay MD [address] [place] [address] [place] [address] Scheduled Orders Name Type Priority Associated Diagnoses Orde r Schedule OP VENIPUNCTURE CHARGE Lab Timed Weight gain Rheumatoid arthritis involving both hands with positive rheumatoid factor (HCC) PRAVEEN (stress urinary incontinence, female) One Time for 1 Occurrences starting 09/20/2015 until 09/20/2015 documented as of this encounter Procedures Procedure Name Priority Date/Time Associated Diagnosis Comments DIFFERENTIAL Routine 09/20/2015 5:10 PM EST CBC WITH DIFF Routine 09/20/2015 5:10 PM EST Weight gain Rheumatoid arthritis involving both hands with positive rheumatoid factor (HCC) T3 FREE Routine 09/20/2015 5:10 PM EST Weight gain Rheumatoid arthritis involving both hands with positive rheumatoid factor (HCC) THYROID STIMULATING HORMONE Routine 09/20/2015 5:10 PM EST Weight gain Rheumatoid arthritis involving both hands with positive rheumatoid factor (HCC) T4, FREE (THYROXINE) Routine 09/20/2015 5:10 PM EST Weight gain Rheumatoid arthritis involving both hands with positive rheumatoid factor (HCC) HEMOGLOBIN A1C Routine 09/20/2015 5:10 PM EST Weight gain Rheumatoid arthritis involving both hands with positive rheumatoid factor (HCC) VITAMIN B12 LEVEL Routine 09/20/2015 5:1 0 PM EST Weight gain Rheumatoid arthritis involving both hands with positive rheumatoid factor (HCC) COMPREHENSIVE METABOLIC PANEL Routine 09/20/2015 5:10 PM EST Weight gain Rheumatoid arthritis involving both hands with positive rheumatoid factor (HCC) documented in this encounter Results * DIFFERENTIAL (09/20/2015 5:10 PM EST) Neut Percent 52.7 % [facility] NT [facility] Lymph Percent 31.6 % [facility]T [facility] [place] Percent 11.1 % [facility] Eos Percent 3.8 % [facility] T [facility] Baso Percent 0.8 % [facility] Neut# 4.5 1.8 - 7.7 x10(3)/[facility] Lymph# 2.7 0.6 - 4.8 x10(3)/[facility] [place]# 0.9 0.0 - 1.3 x10(3)/[facility] Eos# 0.3 0.0 - 0.5 x10(3)/[facility] Baso# 0.1 0.0 - 0.2 x10(3)/[facility] Blood specimen (specimen) 09/20/2015 5:10 PM EST 09/20/2015 5:10 PM EST us Julisa Kerr MD HEMATOLOGY ORDERABLES Final Re sult [facility] [address] [place], [place] [id number] * VITAMIN B12 LEVEL (09/20/2015 5:10 PM EST) Pathologist [facility] Vitamin B12 277 211 - 946 pg/mL [facility] Blood specimen (specimen) UPPER LIMB STRUCTURE / Unknown 09/20/2015 5:10 PM EST 09/21/2015 9:25 AM EST us Julisa Kerr MD CHEMISTRY ORDERABLES Final Res ult Performing Organization Address [facility] Co de Phone Number [facility] [address] [place] [address] * THYROID STIMULATING HORMONE (09/20/2015 5:10 PM EST) TSH 1.350 0.270 - 4.200 mcIU/mL [facility] Blood specimen (specimen) UPPER LIMB STRUCTURE / Unknown 09/20/2015 5:10 PM EST 09/21/2015 9:25 AM EST us Julisa Kerr MD CHEMISTRY ORDERABLES Final Res ult Performing Organization Address [facility] de Phone Number [facility] [address] [place] [address] * T4, FREE (THYROXINE) (09/20/2015 5:10 PM EST) Free T4 0.98 0.93 - 1.70 ng/dL [facility] Blood specimen (specimen) UPPER LIMB STRUCTURE / Unknown 09/20/2015 5:10 PM EST 09/21/2015 9:25 AM EST us Julisa Kerr MD CHEMISTRY ORDERABLES Final Res ult Performing Organization Address [facility] Co de Phone Number [facility] [address] [place] [address] * T3 FREE (09/20/2015 5:10 PM EST) T3 Free 3.23 2.00 - 4.40 pg/mL [facility] Blood specimen (specimen) UPPER LIMB STRUCTURE / Unknown 09/20/2015 5:10 PM EST 09/21/2015 9:25 AM EST us Julisa Kerr MD CHEMISTRY ORDERABLES Final Res ult Performing Organization Address [facility] Co de Phone Number [facility] [address] [place] [address] * HEMOGLOBIN A1C (09/20/2015 5:10 PM EST) Hgb A1c 5.1 <=7.0 % [facility] Comment: Reference Interval for Hgb A1c Hgb A1c ?Interpretation ? < 6.0 ?Non-Diabetic Range 6.0 - 7.0 ? ADA Therapeutic Target ??> 7.0 ? Action suggested Blood specimen (specimen) UPPER LIMB STRUCTURE / Unknown 09/20/2015 5:10 PM EST 09/21/2015 9:25 AM EST us Julisa Kerr MD CHEMISTRY ORDERABLES Final Res ult [facility] 1 [place] [address] * (ABNORMAL) COMPREHENSIVE METABOLIC PANEL (09/20/2015 5:10 PM EST) Sodium 140 136 - 145 mmol/L [facility] Potassium 3.4(L) 3.5 - 5.0 mmol/L [facility] Chloride 101 98 - 107 mmol/L [facility] Total CO2 26 22 - 29 mmol/L [facility] Anion Gap 13 7 - 16 mmol/L [facility] Calcium 9.5 8.6 - 10.2 mg/dL [facility] Glucose Lvl 94 74 - 100 mg/dL [facility] BUN 12 6 - 20 mg/dL [facility] Creatinine 0.77 0.51 - 1.30 mg/dL [facility] Albumin 4.3 3.5 - 5.2 gm/dL [facility] Total Protein 7.2 6.4 - 8.3 gm/dL [facility] Bili Total 0.2 0.1 - 1.3 mg/dL [facility] AST 17 <=40 IU/L [facility] ALT 10 <=41 IU/L [facility] Alk Phos 83 35 - 104 IU/L [facility] GFR Afr Am >60 [facility] GFR Non Afr Am >60 [facility] [place] [facility] Blood specimen (specimen) UPPER LIMB STRUCTURE / Unknown 09/20/2015 5:10 PM EST 09/20/2015 5:10 PM EST Julisa Kerr MD CHEMISTRY ORDERABLES Edited Re sult - Final Performing Organization Address City/[facility]/ZIP Co de Phone Number [facility] [address] [place] [address] * CBC WITH AUTO DIFF (09/20/2015 5:10 PM EST) WBC 8.5 4.0 - 11.0 x10(3)/[facility] LABORAT[facility] RBC 4.46 3.80 - 5.10 x10(6)/[facility] LAB[facility] Hgb 13.1 12.0 - 15.6 gm/dL [facility] Hct 40.3 35.7 - 45.9 % [facility] MCV 90.4 82.5 - 99.8 fL [facility] MCH 29.5 27.0 - 34.3 pg [facility] MCHC 32.6 32.1 - 35.3 gm/dL [facility] RDW 12.8 11.5 - 15.0 % [facility] Platelet 240 144 - 423 x10(3)/[facility] LAB[facility] MPV 8.5 6.8 - 10.8 fL [facility] Blood specimen (specimen) UPPER LIMB STRUCTURE / Unknown 09/20/2015 5:10 PM EST 09/20/2015 5:10 PM EST Julisa Kerr MD HEMATOLOGY ORDERABLES Final Re sult Performing Organization Address [facility]/ZIP Co de Phone Number [facility] [address] [place] [address] documented in this encounter Visit Diagnoses Diagnosis PRAVEEN (stress urinary incontinence, female)- Primary Female stress incontinence Weight gain Abnormal weight gain Rheumatoid arthritis involving both hands with positive rheumatoid factor (HCC) documented in this encounter Care Teams Gm Video Relationship Specialty Start Date End Date Julias Kerr MD [address] [place] [address] PCP - General 02/22/11 documented as of this encounter
--- OUTSIDE RECORDS SUMMARY | 2024-08-22 21:53 | XMS_ITS | Encounter Summary ---
Author Organization [place] [address] Care Team Providers Care Office Support Specialist Name Role Phone Unavailable Primary Care Provider Unavailabl e Encounter Details Date Type Department Care Team (Late st Contact Info) Description 07/11/2005 7:32 PM EDT - 07/11/2005 11:59 PM EDT Hospital Encounter [facility] Mike Crowell MD [address] [id number] Social History Tobacco Use Types Packs/Day Years [...] Description 08/31/2024 8:30 AM EST Appointment [address] [place] [address] 10/25/2024 10:45 AM EST Office Visit [facility] [address] [place] [address] Jessica Cortes MD [address] [facility] Building 19 [place] [address] 01/25/2025 9:00 AM EDT Appointment [address] [address] [place] [address] 05/09/2025 11:00 AM EDT Appointment [address] [place] [address] 05/09/2025 11:15 AM EDT Appointment [address] [place], [place] [phone] Susana Garay MD [address] [place] [address] [place] [address] documented as of this encounter Visit Diagnoses Not on filedocumented in this encounter
--- OUTSIDE RECORDS SUMMARY | 2024-08-22 21:53 | XMS_ITS | Encounter Summary ---
Author Organization [place] [address] Care Team Providers Care Hot Strip Mill Inspector Name Role Phone Julisa Kerr MD Primary Care Provider [phone] Reason for Referral * Consultation (Routine) - Closed Specialty Diagnoses / Procedures Referred By Contac t Referred To Contact Obstetrics & Gynecology-Obstetrics / Obstetrics and Gynecology Diagnoses Urinary incontinence History of bladder repair surgery Procedures [place] UNLISTED E/M SERVICE Julisa Kerr MD Phone: tel: [place]: [place] [address] [place] [address] [address] [place] [address] Phone: tel: fax: Referral ID Status Reason Start Date Expiration Date Visits Re quested Visits Authorized [id number] Closed 12/02/2013 05/31/2014 1 1 Reason for Visit * Reason Comments Urinary Frequency Back Pain Arthritis Encounter Details Date Type Department Care Team (Late st Contact Info) Description 12/02/2013 9:15 AM EST Office Visit [facility] [address] [place] [address] Julisa Krer MD [address] [place] [address] Urinary frequency (Primary Dx); Urinary incontinence; History of bladder repair surgery; Rheumatoid arthritis (HCC); Low back sprain Social History Tobacco Use Types Packs/Day Years [...] Sign Reading Time Taken Comments Blood Pressure 118/74 12/02/2013 9:39 AM EST Pulse - - Temperature 36.8 ??C (98.3 ??F) 12/02/2013 9:39 AM ES T Respiratory Rate - - Oxygen Saturation - - Inhaled Oxygen Concentration - - Weight 55.3 kg (122 lb) 12/02/2013 9:39 AM EST Height 158.8 cm (5' 2.5 ) 12/02/2013 9:39 AM EST Body Mass Index 21.96 12/02/2013 9:39 AM EST documented in this encounter Ordered Prescriptions Prescription Sig Dispense Quantity Refills Last Filled Start Date End Date cephALEXin (KEFLEX) 500 mg capsuleIndications :Urinary frequency Take 1 Cap by mouth every 8 hours for 10 days. 30 Cap 0 12/02/2013 12/12/2013 cyclobenzaprine (FLEXERIL) 5 mg tabletIndications: Low back sprain Take 1 Tab by mouth every 8 hours as needed for 10 days. 30 Tab 1 12/02/2013 12/12/2013 predniSONE (DELTASONE) 20 mg tabletIndications: Rheumatoid arthritis(714.0),L ow back sprain Take by mouth. 3 tabs po daily for 3 days, then 2tabs po daily for 3 days, then 1 tab daily for 3 days. 18 Tab 0 12/02/2013 11/09/2014 documented in this encounter Progress Notes * Julisa Kerr MD - 12/02/2013 9:35 AM EST Subjective: Patient ID: Yuliet Newsome is a 43 y.o. female. Chief Complaint Patient presents with ??? Urinary Frequency ??? Back Pain ??? Arthritis Urinary Frequency This is a new problem. The current episode started 1 to 4 weeks ago. The problem occurs every urination. The problem has been gradually worsening. There has been no fever. Associated symptoms includefrequency and urgency. Pertinent negatives include no chills, nausea or vomiting. Back Pain This is a new problem. The current episode started 1 to 4 weeks ago. The problem occurs constantly.The problem has been unchanged. Associated symptoms include joint swelling and urinary symptoms. Pertinent negatives include no abdominal pain, chest pain, chills, congestion, fatigue, fever, nausea,neck pain, rash, sore throat or vomiting. Arthritis This is a new problem. The current episode started more than 1 month ago. The problem occurs constantly. The problem has been gradually worsening since onset. The pain is the same all the time. Pertinent negatives include no abdominal pain, chest pain or fever. Pt is here today for her bladder. She states that she had it tacked when she 30 and for the past 3 weeks she has been having back pain and also a lot of urinary leakage. She is also here for her arthritis in her hands and wrists. She states that for the past 3 months that pain is getting worse. Sheis now having numbness in her right arm. Patients past medical, family and social histories [...] for nausea, vomiting, abdominal pain and diarrhea. Genitourinary: Positive for urgency and frequency. Musculoskeletal: Positive for back pain, joint swelling and arthritis. Skin: Negative for rash and wound. Neurological: Negative. Psychiatric/Behavioral: Negative for behavioral problems, sleep disturbance and decreased concentration. The patient is not nervous/anxious and is not hyperactive. All other systems reviewed and are negative. Objective: Filed Vitals: 12/02/13 0939 BP: 118/74 Temp: 98.3 ??F (36.8 ??C) TempSrc: Tympanic Height: 5' 2.5 (1.588 m) Weight: 122 lb (55.339 kg) Body mass index is 21.94 kg/(m^2). Physical Exam Nursing note and vitals [...] range of motion. She exhibits no edema. TTP L2-L4 with paraspinal spasm Lymphadenopathy: She has no cervical adenopathy. Neurological: She is alert and oriented to person, place, and time. No cranial nerve deficit. Skin: Skin is warm. No rash noted. Psychiatric: She has a normal mood and affect. Her behavior is normal. Judgment and thought contentnormal. Assessment and Plan: Yuliet was seen today for urinary frequency, back pain and arthritis. Diagnoses and associated orders for this visit: Urinary frequency - POCT UA - cephALEXin (KEFLEX) 500 mg capsule; Take 1 Cap by mouth every 8 hours for 10 days. Urinary incontinence - Gynecology History of bladder repair surgery - Gynecology Rheumatoid arthritis - predniSONE (DELTASONE) 20 mg tablet; Take by mouth. 3 tabs po daily for 3 days, then 2tabs po daily for 3 days, then 1 tab daily for 3 days. Low back sprain - X-ray lumbar spine AP and lateral; Future - predniSONE (DELTASONE) 20 mg tablet; Take by mouth. 3 tabs po daily for 3 days, then 2tabs po daily for 3 days, then 1 tab daily for 3 days. - cyclobenzaprine (FLEXERIL) 5 mg tablet; Take 1 Tab by mouth every 8 hours as needed for 10 days. Other Orders - methotrexate 2.5 mg tablet; Take 2.5 mg by mouth once a week. Above problems were discussed with patient and all are stable except otherwise noted. Continue medications as prior. Refills done as requested. Blood work done. Will adjust medications by phone as needed based on lab results and as noted. Follow up for any changes and as directed A new medication was prescribed during this [...] family of any questions and answered accordingly. Return if symptoms worsen or fail to improve. documented in this encounter Plan of Treatment Upcoming Encounters Date Type Department Care Team (Late st Contact Info) Description 08/31/2024 8:30 AM EST Appointment [address] [place] [address] 10/25/2024 10:45 AM EST Office Visit [facility] [address] [facility] [address] [place] [address] Jessica Cortes MD [address] [place] [address] [address] [place] [address] 01/25/2025 9:00 AM EDT Appointment [address] [place] [address] 05/09/2025 11:00 AM EDT Appointment [address] [place] [address] 05/09/2025 11:15 AM EDT Appointment [address] [place] [address] Susana Garay MD [address] [place] [address] [place] [address] Scheduled Referrals Name Type Priority Associated Diagnoses Order Schedule AMB REFERRAL TO GYNECOLOGY Outpatient Referral Routine Urinary incontinence History of bladder repair surgery Ordered: 12/02/2013 documented as of this encounter Procedures Procedure Name Priority Date/Time Associated Diagnosis Comments POCT URINALYSIS DIPSTICK Routine 12/02/2013 9:45 AM EST Urinary frequency documented in this encounter Results * XR LUMBAR SPINE AP AND LATERAL (12/02/2013 10:43 AM EST) Anatomical Region Laterality Modality L-spine Radiographic [place] ging 12/02/2013 10:2 7 AM EST Impressions 12/02/2013 11:38 AM EST IMPRESSION: Normal lumbar sacral spine. Narrative 12/02/2013 11:38 AM EST XR LUMBAR SPINE AP AND LATERAL ??Dec 02, 2013 10:43:42 AM HISTORY: ??846.9-Sprain of unspecified site of sacroiliac [id number]-CM. Alignment is anatomic. ??Disc interspaces and vertebral body heights are maintained. ??No fracture-dislocation or significant degenerative change is noted. Procedure Note Rusty Hines MD - 12/02/2013 XR LUMBAR SPINE AP AND LATERAL Dec 02, 2013 10:43:42 AM HISTORY: 846.9-Sprain of unspecified site of rrvxvsudbnjrnafv-FRL-8-CM. Alignment is anatomic. Disc interspaces and vertebral body heights aremaintained. No fracture-dislocation or significant degenerative change is noted. IMPRESSION: Normal lumbar sacral spine. Julisa Kerr MD IMG DIAGNOSTIC IMAGING ORDERAB LES Final Result * POCT URINALYSIS DIPSTICK (12/02/2013 9:45 AM EST) Color, UA Clear, Yellow, [place], Rust SEP OFFICE Clarity, UA Clear, Cloudy SEP OFFICE Glucose, UA - g/dl% SEP OFFICE Bilirubin, UA - Pos/Neg SEP OFFICE Ketones, UA - Pos/Neg SEP survey instrument operator Grav, UA 1.005 1.001 - 1.035 g/dl SEP OFFICE Blood, UA - Pos/Neg SEP OFFICE pH, UA 5 5.0 - 8 SEP OFFICE Protein, UA trace Pos/Neg SEP OFFICE Urobilinogen, UA - 0.2 - 1.0 mg/dL SEP OFFICE Leukocytes, UA trace Pos/Neg SEP OFFICE Nitrite, UA - Pos/Neg SEP OFFICE UA Appear POC SEP OFFICE Lot Number SEP OFFICE Expiration Date SEP OFFICE SeriAl # SEP OFFICE Urine specimen (specimen) 12/02/2013 9:45 AM EST us Julisa Kerr MD POINT OF CARE TEST ORDERABLES Final Result SEP OFFICE documented in this encounter Visit Diagnoses Diagnosis Urinary frequency- Primary Urinary incontinence Unspecified urinary incontinence History of bladder repair surgery Other postprocedural status Rheumatoid arthritis(714.0) Rheumatoid arthritis Low back sprain Sprain of unspecified site of sacroiliac region Low back sprain Sprain of unspecified site of sacroiliac region documented in this encounter Discontinued Medications Medication Sig Discontinue Reason Start Date End Da te predniSONE (DELTASONE) 20 mg tabletIndications:Rheumat oid arthritis(714.0) Take by mouth. 3 tabs po daily for 3 days, then 2tabs po daily for 3 days, then 1 tab daily for 3 days. Reorder 06/11/2011 12/02/2013 documented as of this encounter Historical Medications * This list may reflect changes made after this encounter. methotrexate 2.5 mg tablet Take 2.5 mg by mouth once a week. 04/26/2016 added in this encounter Care Teams Hot Strip Mill Inspector Relationship Specialty Start Date End Date Julisa Kerr MD [address] [place] [address] PCP - General 02/22/11 documented as of this encounter
--- OUTSIDE RECORDS SUMMARY | 2024-08-22 21:53 | XMS_ITS | Encounter Summary ---
Author Organization [place] [address] Care Team Providers Care Cargo Tank Mechanic Name Role Phone Unavailable Primary Care Provider Unavailabl e Encounter Details Date Type Department Care Team (Late st Contact Info) Description 12/24/1994 1:10 PM EST - 12/24/1994 11:59 PM EST Hospital Encounter [facility] EP[facility] Moe Gmoez, DO [address] [place] [address] Social History Tobacco Use Types Packs/Day [...] [facility] [address] [address] 10/25/2024 10:45 AM EST Office Visit [facility] [address] [place] [address] Jessica Cortes MD [address] [place] [address] 01/25/2025 9:00 AM EDT Appointment [address] [place] [address] [place] [address] 05/09/2025 11:00 AM EDT Appointment [address] [place] [address] 05/09/2025 11:15 AM EDT [address]ment [address] [place] [address] Susana Garay MD [address] [place] [address] documented as of this encounter Visit Diagnoses Not on filedocumented in this encounter
--- OUTSIDE RECORDS SUMMARY | 2024-08-22 21:53 | XMS_ITS | Encounter Summary ---
Author Organization [place] [address] Care Team Providers Care Car Salter Name Role Phone Julisa Kerr MD Primary Care Provider Reason for Visit * Reason Comments PPD Placement Encounter Details Date Type Department Care Team (Late st Contact Info) Description 05/13/2013 2:15 PM EDT Office Visit [facility] [address] [place] [phone] Tessie Meredith, A [address] [phone] PPD screening test (Primary Dx) Social History [...] as of this encounter Progress Notes * Tessie Meredith, MA - 05/13/2013 2:21 PM EDT Subjective: Patient ID: Yuliet Newsome is a 42 y.o. female. Chief Complaint Patient presents with ??? PPD Placement HPI Patients past medical, family and social histories were reviewed and updated. There were no changesexcept as noted. Review of Systems Objective: There were no vitals filed for this visit.There is no weight on file to calculate BMI. Physical Exam Assessment and Plan: Yuliet was seen today for ppd placement. Diagnoses and associated orders for this visit: PPD screening test - PPD No Follow-up on file. Pt will return on Sat for ppd to be read documented in this encounter Plan of Treatment Upcoming Encounters Date Type Department Care Team (Late st Contact Info) Description 08/31/2024 8:30 AM EST Appointment [address] [place] [address] 10/25/2024 10:45 AM EST Office Visit [facility] [address] [place] [address] Jessica Cortes MD [address] [place] [address] 01/25/2025 9:00 AM EDT Appointment [address] [place] [address] 05/09/2025 11:00 AM EDT Appointment [address] [address] 05/09/2025 11:15 AM EDT Appointment [address] [place] [address] Susana Garay MD [address] [place] [address] documented as of this encounter Visit Diagnoses Diagnosis PPD screening test- Primary Screening examination for pulmonary tuberculosis documented in this encounter Orders Nursing Count Last Ordered Date First Orde red Date PLACE PPD 1 05/13/2013 documented in this encounter Care Teams Car Salter Relationship Specialty Start Date End Date Julisa Kerr MD [address] [place] [address] PCP - General 02/22/11 documented as of this encounter
--- OUTSIDE RECORDS SUMMARY | 2024-08-22 21:53 | XMS_ITS | Encounter Summary ---
Author Organization [place] [address] Care Team Providers Care Sales And Events Coordinator Name Role Phone Unavailable Primary Care Provider Unavailabl e Encounter Details Date Type Department Care Team (Late st Contact Info) Description 07/25/2000 3:58 PM EDT - 07/25/2000 11:59 PM EDT Hospital Encounter [facility] Sara Trinh [address] [facility] [place] [phone] (Fax) Social History Tobacco Use Types Packs/Day [...] Description 08/31/2024 8:30 AM EST Appointment [facility] [address] [address] 10/25/2024 10:45 AM EST Office Visit [facility] [address] [place] [address] Jessica Cortes MD [address] [facility] [address] [place] [address] 01/25/2025 9:00 AM EDT Appointment [place] [address] [place] [address] 05/09/2025 11:00 AM EDT Appointment [address] [address] [place] [address] 05/09/2025 11:15 AM EDT Appointment [address] [address] [place] [address] Susana Garay MD [address] [place] [address] [place] [address] documented as of this encounter Visit Diagnoses Not on filedocumented in this encounter
--- OUTSIDE RECORDS SUMMARY | 2024-08-22 21:53 | XMS_ITS | Encounter Summary ---
Author Organization [place] [address] Care Team Providers Care Hard Rock Miner Blasting Name Role Phone Julisa Kerr MD Primary Care Provider [phone] Reason for Visit * Reason Onset Date Comments Allergic Reaction 04/11/2011 Encounter Details Date Type Department Care Team (Late st Contact Info) Description 04/11/2011 Telephone [facility] [address] [place] [address] Yoel Mirza MA [address] [place], [place] [phone] Allergic Reaction Social History Tobacco Use Types Packs/Day Years [...] encounter Miscellaneous Notes * Telephone Encounter - Tessie Meredith MA - 04/11/2011 1:04 PM EDT Called pt Left mess to call back * Telephone Encounter - Julisa Kerr MD - 04/11/2011 11:26 AM EDT Recommend tylenol arthritis * Telephone Encounter - Yoel Mirza MA - 04/11/2011 10:10 AM EDT Khanh called in for arthritis . After taking it her face started breaking out with hives. She stopped med wondering if something else can be called in. Phone number is [phone] documented in this encounter Plan of Treatment Upcoming Encounters Date Type Department Care Team (Late st Contact Info) Description 08/31/2024 8:30 AM EST Appointment [address] [address] 10/25/2024 10:45 AM EST Office Visit [facility] [address] [place] [address] Jessica Cortes MD [address] [facility] [address] [place] [address] 01/25/2025 9:00 AM EDT Appointment [address] [address] 05/09/2025 11:00 AM EDT Appointment [address] [address] 05/09/2025 11:15 AM EDT Appointment [address] [address] Susana Garay MD [address] [place] [address] [place] [address] documented as of this encounter Visit Diagnoses Not on filedocumented in this encounter Care Teams Hard Rock Miner Blasting Relationship Specialty Start Date End Date Julisa Kerr MD [address] [place] [address] PCP - General 02/22/11 documented as of this encounter
--- OUTSIDE RECORDS SUMMARY | 2024-08-22 21:53 | XMS_ITS | Encounter Summary ---
Author Organization [place] [address] Care Team Providers Care L D Rn Name Role Phone Julisa Kerr MD Primary Care Provider [phone] Reason for Referral * Consultation (Routine) - Closed Specialty Diagnoses / Procedures Referred By Contciarra t Referred To Contact Internal Medicine-Rheumatology / Rheumatology Diagnoses Rheumatoid arthritis involving both hands with positive rheumatoid factor (HCC) Julisa Kerr MD Phone: tel: fax: Jessica Cortes MD [address] [place] [address] Phone: tel: fax: Referral ID Status Reason Start Date Expiration Date V isits Requested Visits Authorized [id number] Closed Specialty Services Required 09/20/2015 09/19/2016 99 99 Reason for Visit * Reason Comments Congestion Cough Stress Weight Gain Encounter Details Date Type Department Care Team (Late st Contact Info) Description 09/20/2015 4:00 PM EST Office Visit [facility] [address] [place] [address] Julisa Kerr MD [address] [place] [address] Weight gain (Primary Dx); Rheumatoid arthritis involving both hands with positive rheumatoid factor (HCC); Acute bacterial sinusitis Social History Tobacco Use [...] Sign Reading Time Taken Comments Blood Pressure 136/80 09/20/2015 4:06 PM EST Pulse - - Temperature 36.8 ??C (98.2 ??F) 09/20/2015 4:06 PM ES T Respiratory Rate - - Oxygen Saturation - - Inhaled Oxygen Concentration - - Weight 59.9 kg (132 lb) 09/20/2015 4:06 PM EST Height 158.8 cm (5' 2.5 ) 09/20/2015 4:06 PM EST Body Mass Index 23.76 09/20/2015 4:06 PM EST documented in this encounter Ordered Prescriptions Prescription Sig Dispense Quantity Refills Last Filled Start Date End Date albuterol (VENTOLIN HFA) 90 mcg/actuation Inhl HFA Aerosol Inhaler Inhale 2 Puffs into the lungs every 6 hours as needed for Wheezing. 1 Inhaler 3 09/20/2015 7 azithromycin (ZITHROMAX) 250 mg Oral TabletIndications: Acute bacterial sinusitis Take 2 tablets (500 mg) on Day 1, followed by 1 tablet (250 mg) once daily on Days 2 through 5. 6 Tab 0 09/20/2015 7 documented in this encounter Progress Notes * Julisa Kerr MD - 09/20/2015 4:03 PM EST Subjective Subjective: Patient ID: Yuliet Newsome is a 44 y.o. female. Chief Complaint Patient presents with ??? Congestion ??? Cough ??? Stress ??? Weight Gain Congestion This is a new problem. The current episode started more than 1 month ago. The problem has been gradually worsening. The problem occurs constantly. The cough is productive of sputum. Associated symptoms include rhinorrhea. Pertinent negatives include no chest pain, chills, ear pain, fever, rash, sore throat, shortness of breath or wheezing. Cough This is a new problem. The current episode started more than 1 month ago. The problem has been gradually worsening. The problem occurs every few minutes. The cough is productive of sputum. Associatedsymptoms include rhinorrhea. Pertinent negatives include no chest pain, chills, ear pain, fever, rash, sore throat, shortness of breath or wheezing. Stress The current episode started more than 1 month ago. This is a new problem. The onset of the illness is precipitated by a stressful event and emotional stress. Additional symptoms of the illness include unexpected weight change. Additional symptoms of the illness do not include no fatigue or no abdominal pain. She does not admit to suicidal ideas. She does not have a plan to commit suicide. She does not contemplate harming herself. She has not already injured self. She does not contemplate injuring another person. She has not already injured another person. Pt is here today for a productive cough and congestion that has been present for the past month andis getting worse. Pt states that it is causing her to have a hard time sleeping. Pt is also here today for her stress. Pt states that for the past year she has been under a lot of stress and it is only getting worse. Pt is also here today for weight gain. Pt states that in the past year she has gained 7-8 pounds and she doesn't know why. Patients past medical, family and social histories were reviewed and updated. There were no changesexcept as noted. Review of Systems Constitutional: Positive for unexpected weight change. Negative for fever, chills, activity change and fatigue. HENT: Positive for rhinorrhea and sinus pressure. Negative for congestion, ear pain, sneezing and sore throat. Eyes: Negative. Respiratory: Positive for cough. Negative for chest tightness, shortness of breath and wheezing. Cardiovascular: Negative. Negative for chest pain and palpitations. Gastrointestinal: Negative for nausea, vomiting, abdominal pain and diarrhea. Musculoskeletal: Negative for back pain, joint swelling and neck pain. Skin: Negative for rash and wound. Neurological: Negative. Psychiatric/Behavioral: Negative for behavioral problems, sleep disturbance and decreased concentration. The patient is not nervous/anxious and is not hyperactive. All other systems reviewed and are negative. Objective Objective: Filed Vitals: 09/20/15 1606 BP: 136/80 Temp: 98.2 ??F (36.8 ??C) TempSrc: Tympanic Height: 5' 2.5 (1.588 m) Weight: 132 lb (59.875 kg) Body mass index is 23.74 kg/(m^2). Physical Exam Constitutional: She is oriented [...] and Plan: Yuliet was seen today for congestion, cough, stress and weight gain. Diagnoses and all orders for this visit: Weight gain Orders: - Cancel: CBC with Auto Diff - Clinic Collect; Future - Cancel: Comprehensive Metabolic Panel - Clinic Collect; Future - Cancel: T3 Free - Clinic Collect; Future - Cancel: T4, Free - Clinic Collect; Future - Cancel: Thyroid Stimulating Hormone - Clinic Collect; Future - Cancel: Venipuncture - Cancel: Vitamin B12/ Folic Acid - Clinic Collect; Future - Cancel: Hemoglobin A1c - Clinic Collect; Future - CBC with Auto Diff - Lab Collect; Future - Comprehensive Metabolic Panel - Lab Collect; Future - T3 Free - Clinic Collect; Future - T4, Free - Lab Collect; Future - Thyroid Stimulating Hormone (TSH) - Lab Collect; Future - Vitamin B12 Level - Lab Collect; Future - Hemoglobin A1c - Lab Collect; Future Rheumatoid arthritis involving both hands with positive rheumatoid factor (HCC) Orders: - Rheumatology - CBC with Auto Diff - Lab Collect; Future - Comprehensive Metabolic Panel - Lab Collect; Future - T3 Free - Clinic Collect; Future - T4, Free - Lab Collect; Future - Thyroid Stimulating Hormone (TSH) - Lab Collect; Future - Vitamin B12 Level - Lab Collect; Future - Hemoglobin A1c - Lab Collect; Future Acute bacterial sinusitis Orders: - azithromycin (ZITHROMAX) 250 mg Oral Tablet; Take 2 tablets (500 mg) on Day 1, followed by 1 tablet (250 mg) once daily on Days 2 through 5. Other orders - albuterol (VENTOLIN HFA) 90 mcg/actuation Inhl HFA Aerosol Inhaler; Inhale 2 Puffs into the lungsevery 6 hours as needed for Wheezing. Above problems were discussed with patient and [...] given on the AVS for today's visit. Return if symptoms worsen or fail to improve. documented in this encounter Plan of Treatment Upcoming Encounters Date Type Department Care Team (Late st Contact Info) Description 08/31/2024 8:30 AM EST Appointment [address] [place] [address] 10/25/2024 10:45 AM EST Office Visit [facility] [address] [facility] [address] [place] [address] Jessica Cortes MD [address] [facility] [address] [place] [address] 01/25/2025 9:00 AM EDT Appointment [address] [place] [address] 05/09/2025 11:00 AM EDT Appointment [facility] [place] [address] [address] 05/09/2025 11:15 AM EDT Appointment [facility] [place] [address] [address] Susana Garay MD [address] [place] [address] [place] [address] Scheduled Referrals Name Type Priority Associated Diagnoses Order Schedule AMB REFERRAL TO RHEUMATOLOGY Outpatient Referral Routine Rheumatoid arthritis involving both hands with positive rheumatoid factor (HCC) Ordered: 09/20/2015 documented as of this encounter Results * HEMOGLOBIN A1C (09/20/2015 5:10 PM EST) Hgb A1c 5.1 <=7.0 % [facility] Comment: Reference Interval for Hgb A1c Hgb A1c ?Interpretation ? < 6.0 ?Non-Diabetic Range 6.0 - 7.0 ? ADA Therapeutic Target ??> 7.0 ? Action suggested Blood specimen (specimen) UPPER LIMB STRUCTURE / Unknown 09/20/2015 5:10 PM EST 09/21/2015 9:25 AM EST us Julisa Kerr MD CHEMISTRY ORDERABLES Final Res ult [facility] [address] [place] [address] * VITAMIN B12 LEVEL (09/20/2015 5:10 PM EST) Vitamin B12 277 211 - 946 pg/mL [facility] Blood specimen (specimen) UPPER LIMB STRUCTURE / Unknown 09/20/2015 5:10 PM EST 09/21/2015 9:25 AM EST us Julisa Kerr MD CHEMISTRY ORDERABLES Final Res ult Performing Organization Address City/[facility]/ZIP Co de Phone Number [facility] [address] [place] [address] * THYROID STIMULATING HORMONE (09/20/2015 5:10 PM EST) TSH 1.350 0.270 - 4.200 mcIU/mL [facility] Blood specimen (specimen) UPPER LIMB STRUCTURE / Unknown 09/20/2015 5:10 PM EST 09/21/2015 9:25 AM EST us Julisa Kerr MD CHEMISTRY ORDERABLES Final Res ult Performing Organization Address [facility]/ZIP Co de Phone Number [facility] [address] [place] [address] * T4, FREE (THYROXINE) (09/20/2015 5:10 PM EST) Free T4 0.98 0.93 - 1.70 ng/dL [facility] Blood specimen (specimen) UPPER LIMB STRUCTURE / Unknown 09/20/2015 5:10 PM EST 09/21/2015 9:25 AM EST us Julisa Kerr MD CHEMISTRY ORDERABLES Final Res ult Performing Organization Address City/[facility]/ZIP Co de Phone Number [facility] [address] [place] [address] * T3 FREE (09/20/2015 5:10 PM EST) T3 Free 3.23 2.00 - 4.40 pg/mL [facility] Blood specimen (specimen) UPPER LIMB STRUCTURE / Unknown 09/20/2015 5:10 PM EST 09/21/2015 9:25 AM EST us Julisa Kerr MD CHEMISTRY ORDERABLES Final Res ult [facility] [address] [place] [address] * (ABNORMAL) COMPREHENSIVE METABOLIC PANEL (09/20/2015 5:10 PM EST) Sodium 140 136 - 145 mmol/L [facility] Potassium 3.4(L) 3.5 - 5.0 mmol/L [facility] Chloride 101 98 - 107 mmol/L [facility] Total CO2 26 22 - 29 mmol/L [facility] Anion Gap 13 7 - 16 mmol/L [facility] Calcium 9.5 8.6 - 10.2 mg/dL [facility] Glucose Lvl 94 74 - 100 mg/dL [facility] BUN 12 6 - 20 mg/dL [facility] Creatinine 0.77 0.51 - 1.30 mg/dL [facility] Albumin 4.3 3.5 - 5.2 gm/dL [facility] Total Protein 7.2 6.4 - 8.3 gm/dL [facility] Bili Total 0.2 0.1 - 1.3 mg/dL [facility] AST 17 <=40 IU/L [facility] ALT 10 <=41 IU/L [facility] Alk Phos 83 35 - 104 IU/L [facility] GFR Afr Am >60 [facility] GFR Non Afr Am >[address] [facility] Blood specimen (specimen) UPPER LIMB STRUCTURE / Unknown 09/20/2015 5:10 PM EST 09/20/2015 5:10 PM EST us Julisa Kerr MD CHEMISTRY ORDERABLES Edited Re sult - Final [facility] [address] [place] [address] * CBC WITH AUTO DIFF (09/20/2015 5:10 PM EST) WBC 8.5 4.0 - 11.0 x10(3)/[facility] RBC 4.46 3.80 - 5.10 x10(6)/[facility] Hgb 13.1 12.0 - 15.6 gm/dL [facility] Hct 40.3 35.7 - 45.9 % [facility] MCV 90.4 82.5 - 99.[address] [facility] MCH 29.5 27.0 - 34.[address] [facility] MCHC 32.6 32.1 - 35.3 gm/dL [facility] RDW 12.8 11.5 - 15.0 % [facility] Platelet 240 144 - 423 x10(3)/[facility] MPV 8.5 6.8 - 10.[address] [facility] Blood specimen (specimen) UPPER LIMB STRUCTURE / Unknown 09/20/2015 5:10 PM EST 09/20/2015 5:10 PM EST us Julisa Kerr MD HEMATOLOGY ORDERABLES Final Re sult [facility] [address] [place] [address] documented in this encounter Visit Diagnoses Diagnosis Weight gain- Primary Abnormal weight gain Rheumatoid arthritis involving both hands with positive rheumatoid factor (HCC) Acute bacterial sinusitis Acute sinusitis, unspecified documented in this encounter Discontinued Medications Medication Sig Discontinue Reason Start Date End Da te predniSONE (DELTASONE) 20 mg Oral TabletIndications:Rheum atoid arthritis(714.0) Take by mouth. 3 tabs po daily for 3 days, then 2tabs po daily for 3 days, then 1 tab daily for 3 days. DELETE-Therapy completed 11/09/2014 09/20/2015 oxybutynin (DITROPAN-XL) 5 mg CR tabletIndications:PRAVEEN (stress urinary incontinence, female),OAB (overactive bladder) Take 1 Tab by mouth daily. DELETE-Therapy completed 12/30/2013 09/20/2015 documented as of this encounter Care Teams L D Rn Relationship Specialty Start Date End Date Julisa Kerr MD [address] [place] [address] PCP - General 02/22/11 documented as of this encounter
--- OUTSIDE RECORDS SUMMARY | 2024-08-22 21:53 | XMS_ITS | Encounter Summary ---
Author Organization [place] [address] Care Team Providers Care Hearing Stenographer Name Role Phone Julisa Kerr MD Primary Care Provider [phone] Encounter Details Date Type Department Care Team (Latest Contact Info) Description 04/22/2016 3:01 PM EDT - 04/22/2016 3:32 PM EDT Hospital Encounter [facility] [address] [facility] [address] [place] [address] Raynaud's phenomenon; Rheumatoid arthritis involving multiple sites, unspecified rheumatoid factor presence; Osteoporosis Discharge Disposition: Home or Self Care [...] EST Appointment [facility] [address] [address] 10/25/2024 10:45 AM EST Office Visit [facility] [address] [place] [address] Jessica Cortes MD [address] [facility] Building [address] [place] [address] 01/25/2025 9:00 AM EDT Appointment [place] [address] [place] [address] 05/09/2025 11:00 AM EDT Appointment [place] [address] [place] [address] 05/09/2025 11:15 AM EDT Appointment [place] [address] [place] [address] Susana Garay MD [address] [facility] [place] [address] Scheduled Orders Name Type Priority Associated Diagnoses Orde r Schedule OP VENIPUNCTURE CHARGE Lab Timed Raynaud's phenomenon Rheumatoid arthritis involving multiple sites, unspecified rheumatoid factor presence Osteoporosis One Time for 1 Occurrences starting 04/22/2016 until 04/22/2016 documented as of this encounter Procedures Procedure Name Priority Date/Time Associated Diagnosis Comments CYCLIC CITRULLINATED PEPTIDE ANTIBODY, IGG Routine 04/22/2016 3:02 PM EDT Rheumatoid arthritis involving multiple sites, unspecified rheumatoid factor presence TSH REFLEX Routine 04/22/2016 3:02 PM EDT Rheumatoid arthritis involving multiple sites, unspecified rheumatoid factor presence MELO ANTIBODY, IGG -REF LAB Routine 04/22/2016 3:02 PM EDT Raynaud's phenomenon COMPLEMENT PANEL Routine 04/22/2016 3:02 PM EDT Raynaud's phenomenon DIFFERENTIAL Routine 04/22/2016 3:02 PM EDT VITAMIN D 25 HYDROXY Routine 04/22/2016 3:02 PM EDT Osteoporosis HEPATITIS C ANTIBODY IGM + IGG Routine 04/22/2016 3:02 PM EDT Rheumatoid arthritis involving multiple sites, unspecified rheumatoid factor presence RIBONUCLEIC PROTEIN ANTIBODY, IGG -REF LAB Routine 04/22/2016 3:02 PM EDT Raynaud's phenomenon DSDNA AB REFLEX TO TITER -REF LAB Routine 04/22/2016 3:02 PM EDT Raynaud's phenomenon HEPATITIS B CORE ANTIBODY IGM ACUTE TITER Routine 04/22/2016 3:02 PM EDT Rheumatoid arthritis involving multiple sites, unspecified rheumatoid factor presence HEPATITIS B SURFACE ANTIGEN Routine 04/22/2016 3:02 PM EDT Rheumatoid arthritis involving multiple sites, unspecified rheumatoid factor presence SSB (LA) (MICHAEL) ANTIBODY, IGG -REF LAB Routine 04/22/2016 3:02 PM EDT Raynaud's phenomenon SSA (RO) (MICHAEL) ANTIBODY, IGG -REF LAB Routine 04/22/2016 3:02 PM EDT Raynaud's phenomenon SEDIMENTATION RATE AUTOMATED Routine 04/22/2016 3:02 PM EDT Rheumatoid arthritis involving multiple sites, unspecified rheumatoid factor presence CBC WITH DIFF Routine 04/22/2016 3:02 PM EDT Rheumatoid arthritis involving multiple sites, unspecified rheumatoid factor presence RHEUMATOID FACTOR QUANTITATIVE Routine 04/22/2016 3:02 PM EDT Rheumatoid arthritis involving multiple sites, unspecified rheumatoid factor presence C-REACTIVE PROTEIN Routine 04/22/2016 3: 02 PM EDT Rheumatoid arthritis involving multiple sites, unspecified rheumatoid factor presence ANTINUCLEAR ANTIBODIES (BRET) SCREEN BY DOROTHEA W/ REFLEX TO IFA Routine 04/22/2016 3:02 PM EDT Raynaud's phenomenon COMPREHENSIVE METABOLIC PANEL Routine 04/22/2016 3:02 PM EDT Rheumatoid arthritis involving multiple sites, unspecified rheumatoid factor presence documented in this encounter Results * DIFFERENTIAL (04/22/2016 3:02 PM EDT) [facility] Neut Percent 52.7 % [facility] Lymph Percent 31.7 % [facility] [place] Percent 11.1 % [facility] Eos Percent 3.6 % [facility] Baso Percent 0.9 % [facility] Neut# 3.9 1.8 - 7.7 x10(3)/mcL [facility] Lymph# 2.3 0.6 - 4.8 x10(3)/mcL [facility] Ches[place]# 0.8 0.0 - 1.3 x10(3)/[facility] Eos# 0.3 0.0 - 0.5 x10(3)/[facility] Baso# 0.1 0.0 - 0.2 x10(3)/[facility] Blood specimen (specimen) 04/22/2016 3:02 PM EDT 04/22/2016 5:49 PM EDT Jessica Cortes MD HEMATOLOGY ORDERABLES Fin al Result Performing Organization Address City/State/[facility] Co de Phone Number [facility] [address] [place] [address] * VITAMIN D 25 HYDROXY (04/22/2016 3:02 PM EDT) [facility] VIT D 25 OH 34.9 30.0 - 120.0 ng/mL [facility] Comment: INTERPRETIVE INFORMATION: ??Vitamin D, 25-Hydroxy [...] ORDERABLES Siobhan l Result Performing Organization Address City/[facility]/ZIP Co de Phone Number [facility] [address] [place] [address] * TSH REFLEX (04/22/2016 3:02 PM EDT) Pathologist [facility] TSH Reflex 1.380 0.270 - 4.200 mcIU/mL [facility] Blood specimen (specimen) UPPER LIMB STRUCTURE / Unknown 04/22/2016 3:02 PM EDT 04/22/2016 5:49 PM EDT us Jessica Cortes MD CHEMISTRY ORDERABLES Siobhan l Result Performing Organization Address [facility] Co de Phone Number [facility] [address] [place] [address] * SSB (LA) (MICHAEL) ANTIBODY, IGG -REF LAB (04/22/2016 3:02 PM EDT) Pathologist [facility] SSB Ab IgG 0 0 - 40 A unit/mL [employer] Comment: INTERPRETIVE INFORMATION: SSB (La) (MICHAEL) [...] 3:02 PM EDT 04/22/2016 6:29 PM EDT us Jessica Cortes MD IMMUNOLOGY ORDERABLES Fin al Result [employer] [address] [place] [address] * SSA (RO) (MICHAEL) ANTIBODY, IGG -REF LAB (04/22/2016 3:02 PM EDT) SSA 52 (Ro) Ab IgG 21 0 - 40 A unit/mL [employer] Comment: INTERPRETIVE INFORMATION: SSA (Ro) (MICHAEL) Ab, IgG ??29 AU/mL or Less ............. Negative ??30 - 40 AU/mL ................ Equivocal ??41 AU/mL or Greater .......... Positive SSA (Ro) antibody is seen in 70-75 percentage of Sjogren syndrome cases, 30-40% of systemic lupus erythematosus (SLE) and 5-10 percentage of progressive systemic sclerosis (PSS). SSA 60 (Ro) Ab IgG 0 0 - 40 A unit/mL [employer] Comment: ??29 AU/mL or Less ............. Negative ??30 - 40 AU/mL ................ Equivocal ??41 AU/mL or Greater .......... Positive Blood specimen (specimen) 04/22/2016 3:02 PM EDT 04/22/2016 6:29 PM EDT Jessica Cortes MD IMMUNOLOGY ORDERABLES Fin al Result [employer] [address] [place], [place] [id number] * MELO (MICHAEL) ANTIBODY, IGG -REF LAB (04/22/2016 3:02 PM EDT) Melo Ab IgG 1 0 - 40 A unit/mL [employer] Comment: INTERPRETIVE INFORMATION: MELO (MICHAEL) Ab, IgG [...] 3:02 PM EDT 04/22/2016 6:29 PM EDT us Jessica Cortes MD IMMUNOLOGY ORDERABLES Fin al Result [employer] [address] [place] [address] * SEDIMENTATION RATE AUTOMATED (04/22/2016 3:02 PM EDT) Pathologist [facility] Sed Rate 15 0 - 20 mm/hr [facility] Blood specimen (specimen) UPPER LIMB STRUCTURE / Unknown 04/22/2016 3:02 PM EDT 04/22/2016 5:49 PM EDT us Jessica Cortes MD HEMATOLOGY ORDERABLES Fin al Result [facility] [address] [place] [address] * RIBONUCLEIC PROTEIN (MICHAEL) ANTIBODY, IGG -REF LAB (04/22/2016 3:02 PM EDT) POLE INSPECTOR Ab IgG 1 0 - 40 A unit/mL [employer] Comment: INTERPRETIVE INFORMATION: Ribonucleic Protein (MICHAEL)Antibody, IgG ??29 AU/mL or Less ............. Negative ??30 - 40 AU/mL ................ Equivocal ??41 AU/mL or Greater .......... Positive POLE INSPECTOR antibody is seen in 95-100 percent of mixed connective tissue disease and is considered specific for this syndrome if other antibodies are negative; POLE INSPECTOR is also present in 20-30 percent of systemic lupus erythematosus and 15-25 percent of progressive systemic sclerosis. POLE INSPECTOR antigens also contain epitopes that are immunologically identical to free Melo antigens, therefore, the Melo antibody response must be considered when interpreting POLE INSPECTOR results. Blood specimen (specimen) 04/22/2016 3:02 PM EDT 04/22/2016 6:29 PM EDT Jessica Cortes MD IMMUNOLOGY ORDERABLES Fin al Result [employer] [address] [place] [address] * (ABNORMAL) RHEUMATOID FACTOR QUANTITATIVE (04/22/2016 3:02 PM EDT) RF Quant 42(H) <=14 IU/mL [facility] Blood specimen (specimen) 04/22/2016 3:02 PM EDT 04/22/2016 5:49 PM EDT Jessica Cortes MD IMMUNOLOGY ORDERABLES Fin al Result Performing Organization Address [facility] Co de Phone Number [facility] [address] [place] [address] * HEPATITIS C ANTIBODY IGM + IGG (04/22/2016 3:02 PM EDT) Hep C Ab Negative Negative [facility] Blood specimen (specimen) 04/22/2016 3:02 PM EDT 04/22/2016 5:49 PM EDT Jessica Cortes MD IMMUNOLOGY ORDERABLES Fin al Result Performing Organization Address [facility] Co de Phone Number [facility] [address] [place] [address] * HEPATITIS B SURFACE ANTIGEN (04/22/2016 3:02 PM EDT) Hep Bs Ag Negative Negative [facility] Blood specimen (specimen) 04/22/2016 3:02 PM EDT 04/22/2016 5:49 PM EDT Jessica Cortes MD CHEMISTRY ORDERABLES Siobhan l Result Performing Organization Address City/[facility]/ZIP Co de Phone Number [facility] [address] [place] [address] * HEPATITIS B CORE ANTIBODY IGM ACUTE TITER (04/22/2016 3:02 PM EDT) Pathologist [facility] Hep B Core IgM Negative Negative [facility] Blood specimen (specimen) UPPER LIMB STRUCTURE / Unknown 04/22/2016 3:02 PM EDT 04/22/2016 5:49 PM EDT Jessica Cortes MD IMMUNOLOGY ORDERABLES Fin al Result Performing Organization Address [facility] Co de Phone Number [facility] [address] [place] [address] * DSDNA AB REFLEX TO TITER -REF LAB (04/22/2016 3:02 PM EDT) Pathologist [facility] DNA Ab DS None Detected None Detected [employer] Comment: INTERPRETIVE INFORMATION: Double-Stranded DNA (dsDNA) Antibody, [...] may be positive for anti-dsDNA IgG by DOROTHEA but negative by RUPAL. If the patient is negative by RUPAL but positive by DOROTHEA and clinical suspicion remains, consider antinuclear antibody (BRET) testing by IFA. Additional information and recommendations for testing may be found at [email or web address] ndex.[email or web address]. Blood specimen (specimen) UPPER LIMB STRUCTURE / Unknown 04/22/2016 3:02 PM EDT 04/22/2016 6:29 PM EDT Jessica Cortes MD IMMUNOLOGY ORDERABLES Fin al Result Performing Organization Address City/[facility]/ZIP Co de Phone Number [employer] [address] [place] [address] * CYCLIC CITRULLINATED PEPTIDE ANTIBODY, IGG (04/22/2016 3:02 PM EDT) Pathologist [facility] CCP Ab, IgG 4.1 U/mL [facility] Comment: Negative: ??< 5.0 U/mL Positive: ??> or = 5.0 U/mL Blood specimen (specimen) 04/22/2016 3:02 PM EDT 04/22/2016 5:49 PM EDT Jessica Cortes MD IMMUNOLOGY ORDERABLES Fin al Result Performing Organization Address [facility] [place] [address] * COMPREHENSIVE METABOLIC PANEL (04/22/2016 3:02 PM EDT) [facility] Sodium 142 136 - 145 mmol/L [facility] Potassium 3.8 3.5 - 5.0 mmol/L [facility] Chloride 102 98 - 107 mmol/L [facility] Total CO2 25 22 - 29 mmol/L [facility] Anion Gap 15 7 - 16 mmol/L [facility] Calcium 9.8 8.6 - 10.2 mg/dL [facility] Glucose Lvl 86 74 - 100 mg/dL [facility] BUN 8 6 - 20 mg/dL [facility] Creatinine 0.77 0.51 - 1.30 mg/dL [facility] Albumin 4.4 3.5 - 5.2 gm/dL [facility] Total Protein 7.4 6.4 - 8.3 gm/dL [facility] Bili Total 0.3 0.1 - 1.3 mg/dL [facility] AST 17 <=40 IU/L [facility] ALT 10 <=41 IU/L [facility] Alk Phos 86 35 - 104 IU/L [facility] GFR Afr Am >60 [facility] GFR Non Afr Am >60 [facility] Blood specimen (specimen) UPPER LIMB STRUCTURE / Unknown 04/22/2016 3:02 PM EDT 04/22/2016 5:49 PM EDT Jessica Cortes MD CHEMISTRY ORDERABLES Edit ed Result - Final Performing Organization Address City/[facility] [place] [address] * COMPLEMENT PANEL (04/22/2016 3:02 PM EDT) Pathologist [facility] C3 Complement 125 90 - 180 mg/dL [facility] C4 Complement 31 10 - 40 mg/dL [facility] Blood specimen (specimen) UPPER LIMB STRUCTURE / Unknown 04/22/2016 3:02 PM EDT 04/22/2016 5:49 PM EDT Jessica Cortes MD IMMUNOLOGY ORDERABLES Fin al Result Performing Organization Address [facility] [place] [address] * CBC WITH AUTO DIFF (04/22/2016 3:02 PM EDT) WBC 7.4 4.0 - 11.0 x10(3)/mcL [facility] RBC 4.95 3.80 - 5.10 x10(6)/mcL [facility] Hgb 14.6 12.0 - 15.6 gm/dL [facility] Hct 43.9 35.7 - 45.9 % [facility] MCV 88.7 82.5 - 99.8 fL [facility] MCH 29.4 27.0 - 34.3 pg [facility] MCHC 33.2 32.1 - 35.3 gm/dL [facility] RDW 13.1 11.5 - 15.0 % [facility] Platelet 289 144 - 423 x10(3)/mcL [facility] MPV 9.1 6.8 - 10.8 fL [facility] Blood specimen (specimen) UPPER LIMB STRUCTURE / Unknown 04/22/2016 3:02 PM EDT 04/22/2016 5:49 PM EDT Jessica Cortes MD HEMATOLOGY ORDERABLES Fin al Result Performing Organization Address [facility] de Phone Number [facility] [address] [place] [address] * C-REACTIVE PROTEIN (04/22/2016 3:02 PM EDT) Pathologist [facility] CRP 3.63 <=5.00 mg/L [facility] Blood specimen (specimen) UPPER LIMB STRUCTURE / Unknown 04/22/2016 3:02 PM EDT 04/22/2016 5:49 PM EDT Jessica Cortes MD CHEMISTRY ORDERABLES Siobhan l Result Performing Organization Address [facility] Phone Number [facility] [address] [place] [address] * (ABNORMAL) ANTINUCLEAR ANTIBODY SCREEN (04/22/2016 3:02 PM EDT) Pathologist [facility] BRET Screen + 1:640(A) [facility] Comment: Centromere pattern. Automated [...] 5:49 PM EDT us Jessica Cortes MD IMMUNOLOGY ORDERABLES Fin al Result Performing Organization Address [facility] [place] [address] documented in this encounter Visit Diagnoses Diagnosis Raynaud's phenomenon Raynaud's syndrome Rheumatoid arthritis involving multiple sites, unspecified rheumatoid factor presence Osteoporosis Osteoporosis, unspecified documented in this encounter Care Teams Hearing Stenographer Relationship Specialty Start Date End Date Julisa Kerr MD [address] [place] [address] PCP - General 02/22/11 documented as of this encounter
--- OUTSIDE RECORDS SUMMARY | 2024-08-22 21:54 | XMS_ITS | Clinical Summary ---
Author Organization [facility] Address [address] [place] [address] Care Team Providers Care Piper Helper Name Role Phone Julisa Kerr MD Primary Care Provider [phone] Allergies Active Allergy Reactions Criticality Noted Date Comments Abatacept Swelling 08/19/2023 Cefdinir 08/19/2023 colon spasms Celecoxib Itching 08/19/2023 Etanercept 08/19/2023 Pustule pimples itching Adalimumab 08/19/2023 Pustule pimples, itching Meloxicam Hives 08/19/2023 Infliximab 08/19/2023 Pustule pimples itching Tocilizumab 08/19/2023 Tofacitinib 08/19/2023 Pustule pimples itching Medications apixaban (Eliquis) 5 mg Tablet Take 5 mg by mouth 2 times daily. Active predniSONE (DELTASONE) 5 mg tablet Take 5 mg by mouth daily. Active leflunomide (ARAVA) 20 mg tablet Take 20 mg by mouth every evening. Active hydrOXYzine (ATARAX) 25 mg tablet Take 25 mg by mouth 3 times daily as needed for Itching or Anxiety. Active furosemide (LASIX) 20 mg tablet Take 20 mg by mouth daily as needed. Active gabapentin (NEURONTIN) 600 mg tablet Take 600 mg by mouth nightly at bedtime. Active golimumab (Simponi) 100 mg/mL Pen Injector 100 mg by Subcutaneous route every 28 days. Active METHOTREXATE, PF, SC 0.6 mL by Subcutaneous route every Friday. Active albuterol (VENTOLIN/PROAI R/PROVENTIL HFA) 90 mcg/actuation HFA Aerosol Inhaler Take 2 Puffs by inhalation every 4 hours as needed for Wheezing. Active cyanocobalamin, vitamin B-12, (VITAMIN B-12 IJ) by Injection route every Friday. Active docusate sodium (COLACE) 100 mg capsule Take 1 Capsule (100 mg) by mouth 2 times daily as needed for Constipation. 30 Capsule Active Active Problems Problem Noted Date Diagnosed Date Primary osteoarthritis of left hip 12/29/2023 Primary osteoarthritis of right knee 08/07/2023 Family History Medical History Relation Name Comments Heart Problems Maternal Grandfather Heart Problems Maternal Grandmother Anesthesia Complications Neg Hx Relation Name Status Comments Maternal Grandfather Maternal Grandmother Social History Tobacco Use Types Packs/Day Years Used Date Smoking Tobacco: Never Smokeless Tobacco: Never Alcohol Use Standard Drinks/Week Comments Not Currently 0 (1 standard drink = 0.6 oz pur e alcohol) Comments No Sex and Gender Information Value Date Recorded Sex Assigned at Not on file Legal Sex Female 10:30 AM EST Gender Identity Not on file Sexual Orientation Not on file Last Filed Vital Signs Vital Sign Reading Time Taken Comments Blood Pressure 125/79 01/30/2024 5:07 PM EDT Pulse 87 01/30/2024 5:07 PM EDT Temperature 36.1 ??C (97 ??F) 01/30/2024 5:00 PM EDT Respiratory Rate 14 01/30/2024 5:07 PM EDT Oxygen Saturation 97% 01/30/2024 5:00 PM EDT Inhaled Oxygen Concentration - - Weight 60.2 kg (132 lb 11.5 oz) 024 12:39 PM EDT Height 160 cm (5' 3 ) 01/30/2024 12:39 PM EDT Body Mass Index 23.51 01/30/2024 12:39 PM EDT Plan of Treatment Health Maintenance Due Date Last Done Comments Cologuard 1970 Colonoscopy 1970 Colorectal Cancer Screening 1970 FIT 1970 Lipid Screening 1988 Breast Cancer Screening 2020 Depression Screening 09/29/2023 COVID-19 Vaccine (2023-2 5 season) 2024 Influenza Vaccination (#1) 05/30/202407/28, 07/01/2022, 07/14/2019, Additional history exists Tetanus Vaccination (Every 1 0 Years) 07/01/2032 07/01/2022 Zoster-RZV(Shingrix) Completed 04/30/2023, 02/22/20 23 Medical Devices Implanted Type Area [employer] Officer Device Identifier Shelf Expiration Date Model / Serial / Lot Simplex Hv Full Dose Us - [id number] Implanted:Qty: 1 on 08/22/2023 by Jordy Clifton MD at [facility] Right: Knee * DODIE [id number] 12/27/2024 6194-1-001 / / [id number] Attune Knee System Tibial Base Affixium Fixed Bearing Size 4 - [id number] Implanted:Qty: 1 on 08/22/2023 by Jordy Clifton MD at [facility] Right: Knee MARIAH \T\ [employer] [id number] 05/29/2033 [id number] / / [id number] Attune Femoral Pcr Sz 4 Right Cementless - [id number] Implanted:Qty: 1 on 08/22/2023 by Jordy Clifton MD at [facility] Right: Knee MARIAH \T\ [employer] [id number] 08/28/2032 [id number] / / [id number] Attune Pat Med Nette 35mm - [id number] Implanted:Qty: 1 on 08/22/2023 by Jordy Clifton MD at [facility] Right: Knee MARIAH \T\ [employer] [id number] 05/29/2028 [id number] / / [id number] Attune Tibial Insrt Fb Ms Sz 4 Right 5mm Aox - [id number] Implanted:Qty: 1 on 08/22/2023 by Jordy Clifton MD at [facility] Right: Knee MARIAH \T\ [employer] [id number] 03/28/2031 [id number] / / [id number] Insert Attune Fb Ms Aox Upchrg - [id number] Implanted:Qty: 1 on 08/22/2023 by Jordy Clifton MD at [facility] Right: Knee MARIAH \T\ Social Strategy 1 [id number] / / Adv Pat Nette Upchrg - [id number] Implanted:Qty: 1 on 08/22/2023 by Jordy Clifton MD at [facility] Right: Knee MARIAH \T\ Social Strategy 1 [id number] / / Knee Attune Fb Por Dome Pat - [id number] Implanted:Qty: 1 on 08/22/2023 by Jordy Clifton MD at [facility] Right: Knee MARIAH \T\ Social Strategy 1 [id number] / / Acetabular Liner 36mm Id X 50mm Od - [id number] Implanted:Qty: 1 on 01/30/2024 by Jordy Clifton MD at [facility] Left: Hip * BAUMAN \T\ NEPHEW [id number] 12/21/2033 [id number] / / [id number] Stem Polar Collar Lat Ti/Gautam 1 - [id number] Implanted:Qty: 1 on 01/30/2024 by Jordy Clifton MD at [facility] Left: Hip [id number] 10/14/2030 [id number] / / [id number] Hd Oxinium Fem 09/11 36 Mm L+8 - [id number] Implanted:Qty: 1 on 01/30/2024 by Jordy Clifton MD at [facility] Left: Hip BAUMAN \T\ [employer] [id number] 10/26/2033 [id number] / / [id number] Imp Mop Hip Xl Ox 3318 - [id number] Implanted:Qty: 1 on 01/30/2024 by Jordy Clifton MD at [facility] Left: Hip BAUMAN \T\ [employer] [id number] / / 50 Mm Liner Coated Shell - [id number] Implanted:Qty: 1 on 01/30/2024 by Jordy Clifton MD at [facility] Left: Hip * BAUMAN \T\ NEPHEW [id number] 10/14/2033 [id number] / / [id number] Procedures Procedure Name Priority Date/Time Associated Diagnosis Comments MSK OUTCOME SCORES Routine 08/10/2024 8:46 AM EST from Last 3 Months Results * MSK OUTCOME SCORES (08/10/2024 8:46 AM EST) 08/10/2024 8:46 AM EST us External Provider RESULTABLE ONLY ORDERS Edited Result - Final [facility] [address] [place] [address], [facility] from Last 3 Months Insurance MEDICAID Care Teams Piper Helper Relationship Specialty Start Date End Date Julisa Kerr MD [address] [place] [address] PCP - General Family Medicine 08/07/23
--- OUTSIDE RECORDS SUMMARY | 2024-08-22 21:54 | XMS_ITS | Encounter Summary ---
Author Organization [facility] Address [address] [place] [address] Care Team Providers Care Pediatric Radiologist Name Role Phone Julisa Kerr MD Primary Care Provider [phone] Encounter Details Date Type Department Care Team (Latest Contact Info) Description 05/28/2023 Travel Social History Tobacco Use Types Packs/Day Years Used Date Smoking Tobacco: Never Comments Unknown Sex and Gender Information Value Date Recorded Sex Assigned at Not on file Legal Sex Female 8:08 PM EDT Gender Identity Not on file Sexual Orientation Not on file documented as of this encounter Plan of Treatment Not on file documented as of this encounter Visit Diagnoses Not on filedocumented in this encounter Care Teams Pediatric Radiologist Relationship Specialty Start Date End Date Julisa Kerr MD [address] [place] [address] PCP - General 02/09/21 documented as of this encounter
--- OUTSIDE RECORDS SUMMARY | 2024-08-22 21:54 | XMS_ITS | Encounter Summary ---
Author Organization [facility] Address [address] [place] [id number] Care Team Providers Care Flight Communications Operator Name Role Phone Julisa Kerr MD Primary Care Provider [phone] Reason for Visit * Auth/Cert (Routine) Specialty Diagnoses / Procedures Referred By Anatoliy t Referred To Contact Diagnoses Primary osteoarthritis of right knee Primary osteoarthritis of right knee [M17.11] Procedures AK ARTHRP KNE CONDYLE&PLATU MEDIAL&LAT COMPARTMENTS Arthroplasty Total Knee Referral ID Status Reason Start Date Expiration Date Visits Re quested Visits Authorized [id number] 1 1 Encounter Details Date Type Department Care Team (Late st Contact Info) Description 08/22/2023 1:00 PM EST - 08/22/2023 2:15 PM EST [facility] Perioperative Services [address] [place] [address] Jordy Clifton MD [address] [place] [address] [place] [id number] RIGHT TOTAL KNEE ARTHROPLASTY Social History Tobacco Use Types Packs/Day Years [...] Sign Reading Time Taken Comments Blood Pressure 116/71 08/22/2023 11:16 AM EST Pulse 77 08/22/2023 11:16 AM EST Temperature 36.8 ??C (98.2 ??F) 08/22/2023 11:[address] Respiratory Rate 16 08/22/2023 11:16 AM EST Oxygen Saturation 96% 08/22/2023 11:16 AM EST Inhaled Oxygen Concentration - - Weight 58.3 kg (128 lb 8.5 oz) 08/22/2023 11:16 AM EST Height 157.5 cm (5' 2 ) 08/22/2023 11:16 AM EST Body Mass Index 23.51 08/22/2023 11:16 AM EST documented in this encounter Discharge Instructions * Discharge Instructions* Jordy Clifton MD - 08/22/2023 12:15 PM EST Jordy Clifton MD Post Operative Instructions: [facility] [address] [place] [address] [phone]) [facility] [phone] ([phone]) [place] Procedure / Diagnosis: Total knee Pain / Swelling / Medications: X Expect some discomfort, even with pain medications.Take the pain medication prescribed to you as directed. Your pain should be controlled, but you probably will have some pain. X Some swelling, stiffness, and bruising is expected after Joint Replacement. X Resume taking your regular medications as directed. X Please call between 8:00am and 4:00pm Friday - Friday for prescription refill requests X Elevate your extremity when resting as much as possible. Also, applying an ice bag/cooling pack to the outside of your cast/splint/dressing may be helpful. Do not apply ice directly to the skin to decrease the risk of thermal injury. X Please call [phone] if you are having pain that is not controlled by ice, elevation, and pain medication. Dressings: X Keep dressing on until follow-up. X The sutures/kami will come out at your first or second post-op visit (10-14 days). Refrain from using a bathtub or hot tub for 5-7 days after sutures are removed. X Please call, ,if you develop any signs of infection (spreading redness, warm to touch, pus/foul smelling drainage). Activity: X Remain full weight bearing as tolerated with an assistive device until follow up. X Walk carefully with assistance! Surgery places you at risk of falls during recovery. X Wiggle your toes and ankles to keep circulation moving while resting. Follow-up Appointment / Questions: X We will want to see you in the clinic in 10-14 days, unless otherwise directed. X Please call [phone]([phone]) or (BONE) to make an appointment X Please call if you develop any complications (Severe pain, Shortness of breath / difficulty breathing, Temperature greater than 101.9oF). We are available for 21/04 for any of your urgent needs, andprefer you to call us with concerns. X No smoking as using tobacco products and nicotine slows the healing process, including bone healing. DRESSINGS: You may notice some blood spotting coming through the dressing on your hip or knee after surgery. Some drainage is common. It is important for you to watch this area, and contact us if it continues to spread. Otherwise, any small area of spotting will dry and can be ignored until we remove the dressing at your next office visit. SUTURES: The sutures utilized in closing any wounds are usually a nonabsorbable type, often metal kami and will need to be removed unless you are told otherwise. They will usually be removed in 10-14 days unless the wound is not ready. In some cases absorbable sutures will be used. PHYSICAL THERAPY: Contact the Physical Therapy department, ideally through [facility], to work with your individual therapist for total knee replacements, and revision knee replacements. Hip replacements will generally not require formal physical therapy. We will plan for outpatient therapy, unless otherwise directed, as they will be familiar with your recovery progress and protocols. They will be expecting you, and have arranged for your visit. If you prefer to use another provider/location for Physical Therapy, this is also acceptable, though we are less familiar with their practices and protocols for your recovery after joint replacement. MEDICATIONS: You will be provided with a prescription for a pain medication when you are ready to leave the hospital. The maximum daily dose of Tylenol if you have a normal liver is 3500 mg. Please try to anticipate the need for any refills on your pain medication, and contact our office early in the day, on the day before running out completely. We strongly discourage calls for refills after business hours or on weekends, as this leaves you with limited access to care, and care from providers who are less familiar with you and your hip or knee. Contact our office for any concerns, we are available 24 hours a day, every day. Congratulations on your new hip or knee! With a little care and dedication to your recovery, we hope you enjoy your new joint replacement for years to come! documented in this encounter Medications at Time of Discharge apixaban (Eliquis) 5 mg Tablet Take 5 mg by mouth 2 times daily. furosemide (LASIX) 20 mg tablet Take 20 mg by mouth daily as needed. gabapentin (NEURONTIN) 600 mg tablet Take 600 mg by mouth nightly at bedtime. golimumab (Simponi) 100 mg/mL Pen Injector 100 mg by Subcutaneous route every 28 days. hydrOXYzine (ATARAX) 25 mg tablet Take 25 mg by mouth 3 times daily as needed for Itching or Anxiety. leflunomide (ARAVA) 20 mg tablet Take 20 mg by mouth every evening. METHOTREXATE, PF, SC 0.6 mL by Subcutaneous route every Friday. predniSONE (DELTASONE) 5 mg tablet Take 5 mg by mouth daily. acetaminophen (TYLENOL) 325 mg tablet Take 2 Tablets (650 mg) by mouth every 6 hours for 7 days. 56 Tablet 3 08/29/20 23 ALBUTEROL IN Take by inhalation as needed. 01/27/20 24 alendronate (FOSAMAX) 70 mg Tablet Take 70 mg by mouth every Friday. 01/27/20 24 clindamycin (CLEOCIN) 300 mg capsule Take 1 Capsule (300 mg) by mouth 3 times daily for 2 days. 6 Capsule 3 08/24/20 23 CYANOCOBALAMIN, VITAMIN B-12, PO Take by mouth every Friday. 01/27/20 24 dexAMETHasone (DECADRON) 6 mg Tablet Take 1 Tablet (6 mg) by mouth daily for 10 days. 10 Tablet 3 09/01/20 23 docusate sodium (COLACE) 100 mg capsule Take 1 Capsule (100 mg) by mouth 2 times daily as needed for Constipation. 30 Capsule 3 01/27/20 24 oxyCODONE 5 mg PO immediate release tabletIndications:P rimary osteoarthritis of right knee Take 1-2 Tablets (5-10 mg) by mouth every 6 hours as needed for Pain for up to 7 days. 40 Tablet 3 08/29/20 23 documented as of this encounter H&P Notes * Jordy Clifton MD - 08/22/2023 12:15 PM EST H&P reviewed. The patient was examined and there are no changes to the H&P. Source Note - Onbase, Scan - 08/06/2023 12:00 AM EST documented in this encounter Consult Notes * Porsche Wooten, PT, DPT - 08/22/2023 5:37 PM EST Inpatient Physical Therapy Consult Note Recommendations Assessment PT Assessment Complete?: Yes No Skilled PT: Safe to Return Home;No Acute PT Goals Identified Plan PT Frequency: One Time Visit PT Follow-up Required?: D/C Therapy Service PT Recommendations PT Recommendations: 24 hour supervision;Outpatient PT PT Equipment Recommended: Pt owns recommended PT DME Assessment Precautions Activity Level: (PT eval and tx) Weight Bearing Status: Weight bearing as tolerated;R LE Joint Precautions: (no pillow under knee) Isolation: None Cardiac: None Other Precautions: 08/22/23 Right TKA Home Living Type of Home: House Home Layout: Two Level;Able to Live on Main Level with Bedroom/Bathroom;Performs ADL's on One Level;Laundry in Basement Entrance: Stairs # of stairs to enter: 3 Railings Present at Entrance: Left Home Equipment: Standard walker;Straight Cane Prior Function Level of [place]: Independent with ADLs;Independent Homemaking ;Independent with functional mobility with AD Assistive Devices: Straight Cane (PRN) Lives With: Spouse (able to provide 24 hour sup) Receives Help From: (none DISK AND TAPE MACHINE TENDER) 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 Bed Mobility Supine to Sit: SBA;HOB elevated;Needs side rails Sit to Supine: Unable to assess (pt sitting EOB at end of session, needs in reach) Sit to Stand: CGA;With Assistive Device (specify) (from EOB to RW) Wheelchair Mobility Wheelchair assistance needed: Not applicable, patient is ambulatory Gait Pattern: Narrow KURT;Decreased Ami;Decreased heel strike R;Decreased stance time R;Decreased step length L;Step-through Gait Assistance: CGA;SBA (CGA initially progress to SBA) Assistive Device: Rolling walker Distance (ft): 250 Feet (+60) Additional Comments: pt without any episodes of overt LOB or buckling Balance Sitting-Static: Fair+ - Maintains balance with minimal challenges from all directions Sitting-Dynamic: Fair+ - Maintains balance through minimal excursions of active truck movement Standing-Static: Fair - Able to stand unsupported without balance loss or UE support Standing-Dynamic: Fair- - Maintains balance through minimal excursions of active trunk movement with CGA Coordination Coordination: No gross deficits noted Coordination comments: Functional Activity Tolerance Functional Activity Tolerance: Endurance does not limit participation Vision and Hearing Screening Current Vision: No visual deficits Hearing: WFL Cognition Overall Cognitive Status: Does not interfere with functional mobility or ADL Arousal/Alertness: Alert Behavior: Cooperative;Pleasant;Appropriate Attention Span: Appears intact Orientation: Person;Place;Time;Situation Following Commands: Follows one step commands w/out difficulty Initiation/Sequencing/Organization: Appears intact Safety Judgement: Good awareness of safety precautions Problem Solving: Able to problem solve independently Light Touch RLE: No apparent deficit LLE: No apparent deficit Proprioception LUE: No apparent deficit RLE: No apparent deficit Perception Inattention/Neglect: Appears intact Motor Planning and Motor Control: WDL for functional mobility RLE Assessment RLE Assessment: Abnormal Strength - RLE R Hip Flexion: 3+/5 Complete ROM Against [place]/Slight Resistance R Knee Flexion: 3+/5 Complete ROM Against [place]/Slight Resistance R Knee Extension: 3+/5 Complete ROM Against [place]/Slight Resistance R Ankle Dorsiflexion: 4/5 Complete ROM Against [place]/Moderate Resistance R Ankle Plantarflexion: 4/5 Part Moves Through Complete ROM Against [place]/Moderate Resistance LLE Assessment LLE Assessment: ROM and Strength WFL 6 CLICKS MOBILITY Difficulty Turning from your back to your side while in bed without using bedrails?: A little Stand up from a chair using your arms (e.g., wheelchair, or bedside chair)?: A little Moving from lying on back to sitting on the side of a flat bed without using bedrails?: A little Moving to and from a bed to a chair(including a wheelchair): A little Help to walk in hospital room: A little Climbing 3-5 steps with a railing?: A little Mobility raw score : 18 Recommendations Assessment PT Assessment Complete?: Yes No Skilled PT: Safe to Return Home;No Acute PT Goals Identified Plan PT Frequency: One Time Visit PT Follow-up Required?: D/C Therapy Service PT Recommendations PT Recommendations: 24 hour supervision;Outpatient PT PT Equipment Recommended: Pt owns recommended PT DME Pt reports no concerns with HEP exercises given at pre-op Outpatient PT evaluation and declines theneed to review exercises at this time. Pt verbalizes understanding of the importance of ambulating throughout the day at home. Let this note serve as d/c summary Physical Therapy Evaluation Charge Reference History - refer to precautions, prior level of function, home set up and cognition sections above No personal factors and/or comorbidities Low 1-2 personal factors and/or comorbidities Moderate x 3 or more personal factors and/or comorbidities High Examination of body systems - refer to bed mobility, gait, wheelchair mobility, balance, coordination, vision/hearing and LE assessment (strength, light touch and proprioception) sections above Of body system(s) using standardized tests and measures addressing 1-2 elements from any of the following: body structures and functions, activity limitations, and/or participation restrictions Low Of body system(s) using standardized tests and measures addressing 3 or more elements from any of the following: body structures and functions, activity limitations, and/or participation restrictionsModerate x Of body system(s) using standardized tests and measures addressing 4 or more elements from any of the following: body structures and functions, activity limitations, and/or participation restrictionsHigh Clinical Presentation - refer to assessment, plan and recommendations sections above With stable and/or uncomplicated characteristics Low x Evolving clinical presentation with changing characteristics Moderate Unstable and unpredictable characteristics High Clinical Decision making - refer to assessment, plan and recommendations sections above Low complexity using standardized patient assessment instrument and/or measurable assessment of functional outcome Low x Moderate complexity using standardized patient assessment instrument and/or measurable assessment of functional outcome Moderate High complexity using standardized patient assessment instrument and/or measurable assessment of functional outcome High Therapist: Porsche Wooten PT DPT Date: 08/22/2023 documented in this encounter Miscellaneous Notes * Post Anes Follow-up - Sol Souza RN - 08/22/2023 3:25 PM EST Post-Anesthesia Follow-Up Note Yuliet Newsome has met the following Anesthesia criteria for discharge: Vitals: Blood Pressure: BP Readings from Last 1 Encounters: 08/22/23 125/89 Heart Rate: Pulse Readings from Last 1 Encounters: 08/22/23 88 Respirations: Resp Readings from Last 1 Encounters: 08/22/23 16 O2 Sat: SpO2 Readings from Last 1 Encounters: 08/22/23 94% Temp: Temp Readings from Last 1 Encounters: 08/22/23 (!) 96.9 ??F (36.1 ??C) (Core) - Cardiorespiratory status has returned to baseline, and/or is acceptable. - Pt responding verbally and following commands to acceptable level. - Temperature and hydration status acceptable. - Pain and nausea appropriately managed. - No anesthesia complications apparent at this time. Cosigned by Moe Montano MD at 08/28/2023 10:12 AM EST * Op Note - Jordy Clifton MD - 08/22/2023 2:34 PM EST Jordy Clifton MD [address] [place] [address] [phone] OPERATIVE REPORT Yuliet Newsome 08/22/2023 PRE-OP DIAGNOSIS: Primary osteoarthritis of right knee [M17.11] POST-OP DIAGNOSIS: same PROCEDURE: Procedure(s): RIGHT TOTAL KNEE ARTHROPLASTY (Right) SURGEON: Surgeon(s) and Role: * Jordy Clifton MD - Primary Dry Mixer: None ANESTHESIA: General and Field Block Nerve Block: Options were discussed for pain control, and the patient elected to undergo field block with intra-articular injection. Therefore, no nerve blocks were indicated for this procedure. ESTIMATED BLOOD LOSS: 200 mL COMPLICATIONS: None IMPLANTS USED: Attune 4 femur, 4 tibia, and 35mm patella with 5mm MS poly liner HISTORY OF PRESENT ILLNESS: The patient is a(n) 52 y.o. female with a history of Primary osteoarthritis of right knee [M17.11] who underwent multiple conservative therapies including but not limited to anti-inflammatories, injections, activity modification, weight loss, bracing, and use of assistive devices. Once all of these measures had failed, they elected to undergo surgical intervention. A thorough discussion was held pre-operatively with the patient regarding the risks/benefits/alternatives to surgical intervention. RISKS OF SURGERY: An extensive conversation was [...] and expressed clear understanding of these risks. Consent obtained. PROCEDURE IN DETAIL: The patient was given the appropriate preoperative antibiotics, brought into the operating room, and placed in the supine position on the table. The hip on the operative leg was bumped. A tourniquet was placed on the proximal thigh. The patient was prepped and draped in the usual sterile fashion. Time out was performed. Once I verified that antibiotics were in, I made a standard incision over the anterior knee. I divided the subcutaneous tissue in line with the incision andidentified the patella and both quad and patellar tendons. An arthrotomy was made. A limited release ensued, being cautious to avoid injury to the collateral ligaments. As I flexed the knee up, I removed a portion of the Infra-patellar fat pad. Once I had accomplished this, I made a primary drill hole in the femur, decompressed the canal, andplaced an intramedullary guide tracy in place. I made a standard distal femur cut in anatomic valgus,recreating the pre-arthritis joint line. Once I made this cut, I sized the femur, and put on the cutting block, rotating in relation to the [place] anatomy. Once I had it in place, I made an anterior cut, posterior cut, and anteroposterior chamfer cuts without difficulty. I was careful to protect the collateral ligaments, and quadriceps tendon at all times during these cuts. I cleaned the ACL footprint and used the tibial extramedullary guide. I measured the minimum implant thickness, recreating the pre-arthritic condition of the knee. I pinned the jig in place. I then made a tibial cut without difficulty, and was careful to protect the patellar tendon, PCL, IT band insertion, and MCL, as well as posterior vessels. I removed the cut tibial surface. I removed the medial and lateral meniscus under direct vision being careful to avoid injury to the vascular structures behind the knee. Once I felt the knee was balanced, I sized and punched the tibia in the usual manner to an anatomicsize for the tibia, being careful to avoid excessive rotation. I went ahead and put my trial femur component in and drilled the lug holes. I put the knee into extension and everted the patella resecting the thickness of the implant when possible, being careful to avoid over resection. I sized the patellar button. I drilled the lugs and put the button on. With the button on, I put the knee through a range of motion. I had full extension and full flexion for good range of motion. I trialed. I had good balance, good stability, and goodtracking of the patella. I was satisfied with all of my components. Once I had accomplished this, I then mixed cement. During this time, I press fit the femur and tibia, and I also cemented on the patella button, removing excess cement. After I had accomplished this,I felt the trial insert was the correct size, and I took out the trial, cleaned up the extra cementthat I could see in the tibial tray and put the real size 5mm MS poly in. After copiously irrigating with normal saline, I then closed the arthrotomy and closed the skin and subcutaneous layers in the usual layered fashion. The patient tolerated the procedure well. At the end of the case, the instrument counts were correct. There were no complications. The patient was transported to the post anesthesia care unit in stable condition. I was personally present forall critical portions of the procedure, including performing the total knee arthroplasty. POSTOPERATIVE COURSE: We will plan for the patient to be weight bearing as tolerated, mobility withPT. Follow up in 1-2 weeks for wound check and will obtain x-rays at first visit. DVT prophylaxis and antibiotics will be administered. Jordy Clifton MD documented in this encounter Plan of Treatment Not on file documented as of this encounter Procedures Procedure Name Priority Date/Time Associated Diagnosis Comments [facility] OUTCOME SCORES Routine 08/10/2024 8: 46 AM EST AK ARTHRP KNE CONDYLE&PLATU MEDIAL&LAT COMPARTMENTS 08/22/2023 1:05 PM EST Primary osteoarthritis of right knee documented in this encounter Results * [facility] OUTCOME SCORES (08/10/2024 8:46 AM EST) 08/10/2024 8:46 AM EST us External Provider RESULTABLE ONLY ORDERS Edited Result - Final Performing Organization Address City/State/[facility] Co de Phone Number [facility] [address] documented in this encounter Visit Diagnoses Diagnosis Primary osteoarthritis of right knee- Primary Primary localized osteoarthrosis, lower leg Primary osteoarthritis of right knee Primary localized osteoarthrosis, lower leg Primary osteoarthritis of right knee Primary localized osteoarthrosis, lower leg documented in this encounter Admitting Diagnoses Diagnosis Primary osteoarthritis of right knee Primary localized osteoarthrosis, lower leg documented in this encounter Administered Medications Inactive Administered Medications - up to 3 most recent administrations Medication Order MAR Action Action Date Dose Rate Site acetaminophen (TYLENOL) tablet 1,000 mg 1,000 mg, Oral, PRE-OP ONCE, Starting on Fri08/22/23 at 0000, For 1 dose, Pre-op (day of surgery) Given 08/22/2023 12:30 PM EST 1,000 mg dexAMETHasone (DECADRON) injection 4 mg 4 mg, Intravenous, PRE-OP ONCE, Starting on Fri08/22/23 at 1059, For 1 dose, Pre-op (day of surgery) Given 08/22/2023 12:30 PM EST 4 mg famotidine (PEPCID) tablet 20 mg 20 mg, Oral, PRE-OP ONCE, Starting on Fri08/22/23 at 0000, For 1 dose, Pre-op (day of surgery), Preferred route is PO if able to take PO. Given 08/22/2023 12:30 PM EST 20 mg fentaNYL (Sublimaze) 50 mcg/mL injection 25 mcg 25 mcg, Intravenous, PACU PRN, Other (enter comment), See Admin. Instructions, Starting on Fri08/22/23 at 1434, PACU, First choice for pain PACU/SDS only. For pain scale 4-10 give q5min for a maximum of 100 mcg. Given 08/22/2023 3:27 PM EST 25 mcg Given 08/22/2023 3:10 PM EST 25 mcg ketorolac (TORADOL) injection 30 mg 30 mg, Intravenous, PACU ONCE, Starting on Fri08/22/23 at 1532, For 1 dose Given 08/22/2023 3:34 PM EST 30 mg meperidine (Demerol) 25 mg/mL injection 12.5 mg 12.5 mg, Intravenous, PACU PRN, Other (enter comment), See Admin. Instructions, Starting on Fri08/22/23 at 1434, PACU, For pain scale 4 - 10. Second choice for pain PACU/SDS only. Give every 5 minutes as needed. Maximum dose = 50 mg. Given 08/22/2023 3:56 PM EST 12.5 mg Given 08/22/2023 3:50 PM EST 12.5 mg mupirocin (BACTROBAN) 2 % ointment Nasal, PRE-OP ONCE, Starting on Fri08/22/23 at 0000, For 1 dose, Until Fri08/22/23 at 1229, Pre-op (day of surgery) Given 08/22/2023 12:29 PM EST ondansetron (PF) (ZOFRAN) injection 4 mg 4 mg, Intravenous, PACU MULTIPLE, Starting on Fri08/22/23 at 1434, For 2 doses, PACU oxyCODONE (ROXICODONE) immediate release tablet 5 mg 5 mg, Oral, PACU PRN, Moderate Pain Intensity (4-6), Severe Pain Intensity (7-10), post procedure, Starting on Fri08/22/23 at 1434, For 1 dose, PACU, If patient able to take PO medication. May give 1 dose in PACU or SDS Given 08/22/2023 4:01 PM EST 5 mg ROPivacaine (PF) (NAROPIN) 5 mg/mL (0.5 %) 150 mg, BUPivacaine (PF) (MARCAINE) 0.75 % 150 mg, EPINEPHrine (ADRENALIN) 0.15 mg, dexAMETHasone (DECADRON) 8 mg, cloNIDine 100 mcg in sodium chloride 100 mcg in sodium chloride 0.9 % 50 mL Intra-articular, INTRA-OP ONCE, Starting on Fri08/22/23 at 0000, For 1 dose Given 08/22/2023 1:49 PM EST Right Knee sodium chloride 0.9 % irrigation INTRA-OP PRN, Starting on Fri08/22/23 at 1336, Until Fri08/22/23 at 1459, Intra-op Given 08/22/2023 1:36 PM EST 3,500 mL sodium chloride 0.9% IV solution 1,000 mL, Intravenous, PRE-OP CONTINUOUS, Starting on Fri08/22/23 at 0000, Pre-op (day of surgery) New Bag 08/22/2023 1:56 PM EST New Bag 08/22/2023 11:04 AM EST 1,000 mL 125 mL/hr sodium chloride 0.9% IV solution 125 mL/hr, Intravenous, PACU CONTINUOUS, Starting on Fri08/22/23 at 1545, PACU tranexamic acid 1000 mg in sodium chloride 0.9% - total volume 50 ml Intra-articular, INTRA-OP ONCE, Starting on Fri08/22/23 at 0000, For 1 dose Given 08/22/2023 1:49 PM EST 1,000 mg Right Knee documented in this encounter Active and Recently Administered Medications Times are shown in EST. Scheduled Medication Order 08/20/2023 08/21/2023 08/22/2023 acetaminophen (TYLENOL) tablet 1,000 mg (COMPLETED) 1,000 mg, Oral, PRE-OP ONCE, Starting on Fri08/22/23 at 0000, For 1 dose, Pre-op (day of surgery) 1230 (Given - Provid er: Alpa Nick RN) ceFAZolin (Ancef) syringe for injection 2 g 20 mL (COMPLETED) 2 g (2,000 mg), Intravenous, PRE-OP ONCE, Starting on Fri08/20/23 at 1623, For 1 dose, Pre-op (day of surgery) 1316 (Given - Provid er: JAYESH Rubio)1319 (Stopped - Provider: JAYESH Rubio) dexAMETHasone (DECADRON) injection 4 mg (COMPLETED) 4 mg, Intravenous, PRE-OP ONCE, Starting on Fri08/22/23 at 1059, For 1 dose, Pre-op (day of surgery) 1230 (Given - Provid er: Alpa Nick RN) famotidine (PEPCID) tablet 20 mg (COMPLETED)(Linked Group 1) 20 mg, Oral, PRE-OP ONCE, Starting on Fri08/22/23 at 0000, For 1 dose, Pre-op (day of surgery), Preferred route is PO if able to take PO. 1230 (Given - Provid er: Alpa Nick RN) ketorolac (TORADOL) injection 30 mg (COMPLETED) 30 mg, Intravenous, PACU ONCE, Starting on Fri08/22/23 at 1532, For 1 dose 1534 (Given - Provid er: Sol Souza RN) mupirocin (BACTROBAN) 2 % ointment (COMPLETED) Nasal, PRE-OP ONCE, Starting on Fri08/22/23 at 0000, For 1 dose, Until Fri08/22/23 at 1229, Pre-op (day of surgery) 1229 (Given - Provid er: Alpa Nick RN) ondansetron (PF) (ZOFRAN) injection 4 mg 4 mg, Intravenous, PACU MULTIPLE, Starting on Fri08/22/23 at 1434, For 2 doses, PACU ROPivacaine (PF) (NAROPIN) 5 mg/mL (0.5 %) 150 mg, BUPivacaine (PF) (MARCAINE) 0.75 % 150 mg, EPINEPHrine (ADRENALIN) 0.15 mg, dexAMETHasone (DECADRON) 8 mg, cloNIDine 100 mcg in sodium chloride 100 mcg in sodium chloride 0.9 % 50 mL (COMPLETED) Intra-articular, INTRA-OP ONCE, Starting on Fri08/22/23 at 0000, For 1 dose 1349 (Given - Provid er: Crystal Richardson RN) tranexamic acid 1000 mg in sodium chloride 0.9% - total volume 50 ml (COMPLETED) Intra-articular, INTRA-OP ONCE, Starting on Fri08/22/23 at 0000, For 1 dose 1349 (Given - Provid er: Crystal Richardson RN) Continuous Medication Order 08/20/2023 08/21/2023 08/22/2023 sodium chloride 0.9% IV solution (CANCELED) 1,000 mL, Intravenous, PRE-OP CONTINUOUS, Starting on Fri08/22/23 at 0000, Pre-op (day of surgery) 1104 (New Bag - Prov ider: Angela Yeboah RN)1355 (Paused - Provider: JAYESH Rubio - Comment: Switch to gravity)1356 (New Bag - Provider: JAYESH Rubio) sodium chloride 0.9% IV solution 125 mL/hr, Intravenous, PACU CONTINUOUS, Starting on Fri08/22/23 at 1545, PACU 1545 (Due) PRN Medication Order 08/20/2023 08/21/2023 08/22/2023 fentaNYL (Sublimaze) 50 mcg/mL injection 25 mcg 25 mcg, Intravenous, PACU PRN, Other (enter comment), See Admin. Instructions, Starting on Fri08/22/23 at 1434, PACU, First choice for pain PACU/SDS only. For pain scale 4-10 give q5min for a maximum of 100 mcg. 1510 (Given - Provid er: Linda White RN)1527 (Given - Provider: Sol Souza RN) meperidine (Demerol) 25 mg/mL injection 12.5 mg 12.5 mg, Intravenous, PACU PRN, Other (enter comment), See Admin. Instructions, Starting on Fri08/22/23 at 1434, PACU, For pain scale 4 - 10. Second choice for pain PACU/SDS only. Give every 5 minutes as needed. Maximum dose = 50 mg. 1550 (Given - Provid er: Sol Souza RN)1556 (Given - Provider: Sol Souza RN) oxyCODONE (ROXICODONE) immediate release tablet 5 mg (COMPLETED) 5 mg, Oral, PACU PRN, Moderate Pain Intensity (4-6), Severe Pain Intensity (7-10), post procedure, Starting on Fri08/22/23 at 1434, For 1 dose, PACU, If patient able to take PO medication. May give 1 dose in PACU or SDS 1601 (Given - Provid er: Sol Souza RN) sodium chloride 0.9 % irrigation (CANCELED) INTRA-OP PRN, Starting on Fri08/22/23 at 1336, Until Fri08/22/23 at 1459, Intra-op 1336 (Given - Provid er: Jordy Clifton MD) Linked Groups Order Group 1: famotidine (PEPCID) tablet 20 mg (COMPLETED)Jump to med 20 mg, Oral, PRE-OP ONCE, Starting on Fri08/22/23 at 0000, For 1 dose, Pre-op (day of surgery), Preferred route is PO if able to take PO. Or famotidine (PF) (PEPCID) injection 20 mg (COMPLETED) 20 mg, Intravenous, PRE-OP ONCE, Starting on Fri08/22/23 at 0000, For 1 dose, Pre-op (day of surgery), Give if unable to take PO documented in this encounter Care Teams Flight Communications Operator Relationship Specialty Start Date End Date Julisa Kerr MD [address] [place] [address] PCP - General Family Medicine 08/07/23 documented as of this encounter
--- OUTSIDE RECORDS SUMMARY | 2024-08-22 21:54 | XMS_ITS | Clinical Summary ---
Author Organization [facility] Address [address] [place] [address] Care Team Providers Care Risk Assessor Name Role Phone Julisa Kerr MD Primary Care Provider [phone] Allergies Active Allergy Reactions Criticality Noted Date Comments Abatacept Unknown - Patient st ates they do not know rxn details Low 12/05/2020 Adalimumab Unknown - Patient st ates they do not know rxn details Low 12/05/2020 Celecoxib Unknown - Patient st ates they do not know rxn details Low 12/05/2020 Etanercept Unknown - Patient st ates they do not know rxn details Low 12/05/2020 Medications amitriptyline (Elavil) 25 MG tablet Take 25 mg by mouth every night. 08/11/2020 Active methotrexate 250 MG/10ML injection 50 mg every 7 (seven) days. 06/21/2020 Active predniSONE (Deltasone) 10 MG tablet Take 10 mg by mouth. 11/22/2020 Active Social History Tobacco Use Types Packs/Day Years Used Date Smoking Tobacco: Never Comments Unknown Sex and Gender Information Value Date Recorded Sex Assigned at Not on file Legal Sex Female 8:08 PM EDT Gender Identity Not on file Sexual Orientation Not on file Last Filed Vital Signs Vital Sign Reading Time Taken Comments Blood Pressure 124/74 05/28/2023 6:43 AM EDT Pulse 85 05/28/2023 6:43 AM EDT Temperature 36.7 ??C (98.1 ??F) 05/28/2023 6:43 AM ED T Respiratory Rate 18 05/28/2023 6:43 AM EDT Oxygen Saturation 98% 05/28/2023 6:43 AM EDT Inhaled Oxygen Concentration - - Weight 62.6 kg (138 lb 0.1 oz) 12/05/2020 1:19 P M EST Height 157.5 cm (5' 2 ) 12/05/2020 1:19 PM EST Body Mass Index 25.24 12/05/2020 1:19 PM EST Plan of Treatment Health Maintenance Due Date Last Done Comments [facility]-Depression Screening 1970 [facility]-Infant/Child/Adol SDOH Screenings 1970 SYN-MPVSF-29 Vaccine (#1) 1975 [facility]- SDOH Screenings 1988 [facility]-Adult SDOH Screenings 1988 [facility]-Hepatitis B Vaccines (1 of 3 - 19+ 3-dose series) 1989 [facility]-Zoster Vaccines (1 of 2) 1989 [facility]-Pap Smear 1991 [facility]-Cervical Cancer Screening 2000 [facility]-HPV/Cotest 2000 CT Colonography 2015 Colonoscopy 2015 FIT-DNA 2015 FIT 2015 FOBT 2015 Sigmoidoscopy 2015 [facility]-Colorectal Cancer Screening 2015 [facility]-Breast Cancer Screening 2020 [facility]-Influenza Vaccine (#1) 05/30/202407/01, 07/16/2019, 07/14/2019, Additional history exists [facility]-DTaP,Tdap,and Td Vaccines (7 - Td or Tdap) 07/01/2032 07/01/2022, 06/09/1985, 08/29/1974, Additional history exists [facility]-RSV Vaccine: 60+ Years or (1 - 1-dose 75+ series) 2045 [facility]-HIV Screening Completed 05/28/2023, 05/28/2023 [facility]-Hepatitis C Screening Completed 05/28/2023 [facility]-HIB Vaccines Aged Out No longer e ligible based on patient's age to complete this topic [facility]-HPV Vaccines Aged Out No longer e ligible based on patient's age to complete this topic [facility]-Hepatitis A Vaccines Aged Out No longer eligible based on patient's age to complete this topic [facility]-IPV Vaccines Aged Out No longer e ligible based on patient's age to complete this topic [facility]-Pneumococcal Vaccine: Pediatrics (0 to 5 Years) and At-Risk Patients (6 to 64 Years) Aged Out No longer eligible based on patient's age to complete this topic [facility]-Rotavirus Vaccines Aged Out No lo nger eligible based on patient's age to complete this topic Procedures Procedure Name Priority Date/Time Associated Diagnosis Comments HEPATITIS C ANTIBODY - ED W/REFLEX TO HCV QUANT PCR STAT 05/28/2023 2:53 AM EDT ED PROTOCOL HIV 1/2 ANTIBODY/ANTIGEN SCREEN W/REFLEX TO HIV 1/2 ANTIBODY DIFFERENTIATION STAT 05/28/2023 2:53 AM EDT from Last 3 Months or Most Recently Relevant to Health Maintenance Results * Hepatitis C Antibody - ED (05/28/2023 2:53 AM EDT) Hepatitis C Antibody Negative Negative 05/28/2023 3:58 AM EDT [facility] Blood Venous blood specimen / Unknown Venipuncture / Unknown 05/28/2023 2:53 AM EDT 05/28/2023 3:16 AM EDT Dimple Long DO LAB BLOOD ORDERABLES Final Res ult [facility] [address] [place] [id number] from Last 3 Months or Most Recently Relevant to Health Maintenance Insurance [employer] [facility] MEDICAID Care Teams Risk Assessor Relationship Specialty Start Date End Date Julisa Kerr MD [address] [place] [address] PCP - General 02/09/21
--- OUTSIDE RECORDS SUMMARY | 2024-08-22 21:54 | XMS_ITS | Encounter Summary ---
Author Organization [facility] Address [address] [place] [address] Care Team Providers Care Utility Service Worker Name Role Phone Julisa Kerr MD Primary Care Provider [phone] Reason for Referral * Consultation (Routine) - Closed Specialty Diagnoses / Procedures Referred By Contciarra t Referred To Contact Pharmacist Diagnoses Primary osteoarthritis of right knee Jame Webb PA [address] [place] [address] Phone: tel: fax: Referral ID Status Reason Start Date Expiration Date Visits Re quested Visits Authorized [id number] Closed 08/15/2023 08/14/2024 1 1 Encounter Details Date Type Department Care Team (Latest Contact Info) Description 08/07/2023 Preop Surgical Orders [facility] [address] [place] [id number] Jordy Clifton MD [address] [place] [address] [address] [place] [address] Primary osteoarthritis of right knee (Primary Dx) Social History Tobacco Use Types Packs/Day Years Used Date Smoking Tobacco: Never Assessed Comments Unknown Sex and Gender Information Value Date Recorded Sex Assigned at Not on file Legal Sex Female 10:30 AM EST Gender Identity Not on file Sexual Orientation Not on file documented as of this encounter Plan of Treatment Scheduled Orders Name Type Priority Associated Diagnoses Orde r Schedule CBC (COMPLETE BLOOD COUNT) Lab Routine Primary osteoarthritis of right knee 1 Occurrences starting 08/15/2023 until 08/07/2024 BASIC METABOLIC PANEL (BMP=EP1) Lab Routine Primary osteoarthritis of right knee 1 Occurrences starting 08/15/2023 until 08/07/2024 PT (PRO TIME INCLUDES INR) Lab Routine Primary osteoarthritis of right knee 1 Occurrences starting 08/15/2023 until 08/07/2024 Scheduled Referrals Name Type Priority Associated Diagnoses Orde r Schedule AMBULATORY PHARMACIST REFERRAL Outpatient Referral Routine Primary osteoarthritis of right knee 1 Occurrences starting 08/15/2023 until 08/07/2024 documented as of this encounter Visit Diagnoses Diagnosis Primary osteoarthritis of right knee- Primary Primary localized osteoarthrosis, lower leg documented in this encounter Care Teams Utility Service Worker Relationship Specialty Start Date End Date Julisa Kerr MD [address] [place] [address] PCP - General Family Medicine 08/07/23 documented as of this encounter
--- OUTSIDE RECORDS SUMMARY | 2024-08-22 21:54 | XMS_ITS | Encounter Summary ---
Author Organization [facility] Address [address] [place] [address] Care Team Providers Care Oiler Bander Name Role Phone Julisa Kerr MD Primary Care Provider [phone] Encounter Details Date Type Department Care Team (Late st Contact Info) Description 02/25/2021 Abstract [facility] Orthopaedic Surgery & Sports Medicine [address] [place] [address] Carly Ma MD [address] [id number] Social History Tobacco Use Types Packs/Day Years Used Date Smoking Tobacco: Never Comments Unknown Sex and Gender Information Value Date Recorded Sex Assigned at Not on file Legal Sex Female 8:08 PM EDT Gender Identity Not on file Sexual Orientation Not on file documented as of this encounter Last Filed Vital Signs Vital Sign Reading Time Taken Comments Blood Pressure 126/87 12/05/2020 1:19 PM EST Pulse 103 12/05/2020 1:19 PM EST Temperature 36.4 ??C (97.5 ??F) 12/05/2020 1:19 PM ES T Respiratory Rate - - Oxygen Saturation 96% 12/05/2020 1:19 PM EST Inhaled Oxygen Concentration - - Weight 62.6 kg (138 lb) 12/05/2020 1:19 PM EST Height 157.5 cm (5' 2 ) 12/05/2020 1:19 PM EST Body Mass Index 25.24 12/05/2020 1:19 PM EST documented in this encounter Plan of Treatment Not on file documented as of this encounter Visit Diagnoses Not on filedocumented in this encounter Care Teams Oiler Bander Relationship Specialty Start Date End Date Julisa Kerr MD [address] [place] [address] PCP - General 02/09/21 documented as of this encounter
--- OUTSIDE RECORDS SUMMARY | 2024-08-22 21:54 | XMS_ITS | Encounter Summary ---
Author Organization [facility] Address [address] [place] [id number] Care Team Providers Care Front End Engineer Name Role Phone Julisa Kerr MD Primary Care Provider [phone] Reason for Visit * Reason Onset Date Comments Other 01/27/2024 Encounter Details Date Type Department Care Team (Late st Contact Info) Description 01/27/2024 [place] [address] Worker, Social Other Social History Tobacco Use Types Packs/Day [...] encounter Miscellaneous Notes * Telephone Encounter - Breonna Joyce LSW - 01/27/2024 9:21 AM EDT CAROLINE called patient to inquire about possible D/C needs and conduct initial D/C assessment prior to LTHA surgery on 01/[address] Clifton. CAROLINE conducted initial assessment: Household: lives with spouse. Multiple level home. Confirmed emergency contacts: Waldo (Spouse) Dotty (Dtr) Verified phone number. LOGAN: 3 Bed/Bath: Same floor AD: Cane (on occasion) Life Alert Button: No Pipe And Test Supervisor/transportation: Pt reported her dtr will transport at DC. D/C Plan/Concerns: Pt reported no DC concerns. Pt reported she plans to DC home and has spouse for support. TREE Harper [phone] documented in this encounter Plan of Treatment Not on file documented as of this encounter Visit Diagnoses Not on filedocumented in this encounter Care Teams Front End Engineer Relationship Specialty Start Date End Date Julisa Kerr MD [address] [place] [phone] PCP - General Family Medicine 08/07/23 documented as of this encounter
--- OUTSIDE RECORDS SUMMARY | 2024-08-22 21:54 | XMS_ITS | Encounter Summary ---
Author Organization [facility] Address [address] [place] [address] Care Team Providers Care Upper Tier Name Role Phone Julisa Kerr MD Primary Care Provider [phone] Reason for Visit * Auth/Cert (Routine) Specialty Diagnoses / Procedures Referred By Anatoliy t Referred To Contact Diagnoses Primary osteoarthritis of left hip Primary osteoarthritis of left hip [M16.12] Procedures OR ARTHRP ACETBLR/PROX FEM PROSTC AGRFT/ALGRFT Arthroplasty Total Hip Anterior Approach Referral ID Status Reason Start Date Expiration Date Visits Re quested Visits Authorized [id number] 1 1 Encounter Details Date Type Department Care Team (Late st Contact Info) Description 01/30/2024 1:45 PM EDT - 01/30/2024 3:00 PM EDT [facility] [address] [place] [address] Jordy Clifton MD 3 [facility] [address] [place] [id number] LEFT TOTAL HIP ARTHROPLASTY Social History Tobacco Use Types Packs/Day [...] Sign Reading Time Taken Comments Blood Pressure 119/83 01/30/2024 12:39 PM EDT Pulse 72 01/30/2024 12:39 PM EDT Temperature 36.5 ??C (97.7 ??F) 01/30/2024 1 2:39 PM EDT Respiratory Rate 16 01/30/2024 12:3 9 PM EDT Oxygen Saturation 95% 01/30/2024 12: 39 PM EDT Inhaled Oxygen Concentration - - Weight 60.2 kg (132 lb 11.5 oz) 024 12:39 PM EDT Height 160 cm (5' 3 ) 01/30/2024 12:39 PM EDT Body Mass Index 23.51 01/30/2024 12:39 PM EDT documented in this encounter Discharge Instructions * Discharge Instructions* Lance Leong, - 01/30/2024 2:08 PM EDT Jordy Clifton MD Post Operative Instructions: Joint Replacement [facility] [address] [place] [address] [phone] ([phone]) [facility] [phone] ([phone]) [place] Procedure / Diagnosis: total hip arthroplasty Pain / Swelling / Medications: X Expect [...] risk of thermal injury. X Please call [phone] if you are having pain that is [...] days, unless otherwise directed. X Please call [phone](BONE) or (BONE) to make an appointment X [...] Contact the Physical Therapy department, ideally through [facility], to work with your individual therapist for [...] this encounter Medications at Time of Discharge albuterol (VENTOLIN/PROAIR/OR OVENTIL HFA) 90 mcg/actuation HFA Aerosol Inhaler Take 2 Puffs by inhalation every 4 hours as needed for Wheezing. apixaban (Eliquis) 5 mg Tablet Take 5 mg by mouth 2 times daily. cyanocobalamin, vitamin B-12, (VITAMIN B-12 IJ) by Injection route every Friday. docusate sodium (COLACE) 100 mg capsule Take 1 Capsule (100 mg) by mouth 2 times daily as needed for Constipation. 30 Capsule 4 furosemide (LASIX) 20 mg tablet Take 20 [...] mg) by mouth every 6 hours for 10 days. 80 Tablet 4 02/09/20 24 clindamycin (CLEOCIN) 300 mg capsule Take 1 Capsule (300 mg) by mouth 3 times daily for 3 days. 9 Capsule 4 02/02/20 24 dexAMETHasone (DECADRON) 4 mg tablet Take 1.5 Tablets (6 mg) by mouth daily for 10 days. 15 Tablet 4 02/09/20 24 oxyCODONE 5 mg PO immediate release tabletIndications:P rimary osteoarthritis of left hip,Post-op pain Take 1-2 Tablets (5-10 mg) by mouth every 6 hours as needed for Pain for up to 4 days. 30 Tablet 4 02/03/20 24 documented as of this encounter Progress Notes * Virginia King RN - 01/30/2024 1:13 PM EDT Made AAC aware of pt's elevated WBC, NNO at this time documented in this encounter H&P Notes * Jordy Clifton MD - 01/30/2024 11:23 AM EDT H&P reviewed. The patient was examined and there are no changes to the H&P. Source Note - Onbase, Scan - 01/29/2024 12:00 AM EDT documented in this encounter Consult Notes * Barrington Watson, PT - 01/30/2024 5:45 PM EDT Inpatient Physical Therapy Consult Note Recommendations Assessment PT Assessment Complete?: Yes No Skilled PT: Safe to Return Home;No Acute PT Goals Identified Plan PT Frequency: One Time Visit PT Follow-up Required?: D/C Therapy Service PT Recommendations PT Recommendations: 24 hour supervision;Outpatient PT PT Equipment Recommended: Pt owns recommended PT DME Assessment Precautions Activity Level: (PT eval and tx and DME training) Weight Bearing Status: Weight bearing as tolerated Joint Precautions: No hip precautions Cardiac: None Other Precautions: s/p L RIOS Home Living Type of Home: House Home Layout: Two Level;Able to Live on Main Level with Bedroom/Bathroom;Performs ADL's on One Level;Laundry in Basement Entrance: Stairs # of stairs to enter: 3 Railings Present at Entrance: Left Home Equipment: Standard walker;Straight Cane Prior Function Level of [place]: Independent with ADLs;Independent Homemaking ;Independent with functional mobility with AD Assistive Devices: Straight Cane (PRN) Lives With: Spouse Receives Help From: Family (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 Leisure: dogs and grandkids Additional Comments: 24 hour supervision available; denies recent falls Bed Mobility Supine to Sit: Supervision;HOB elevated Sit to Supine: Unable to assess (patient seated EOB with plans to dress, RN aware.) Sit to Stand: SBA;With Assistive Device (specify) (with RW from EOB, toilet and WC) Wheelchair Mobility Wheelchair assistance needed: Not applicable, patient is ambulatory Gait Pattern: Decreased Ami;Decreased step length L;Decreased step length R;Step-to;Step-through Gait Assistance: CGA Assistive Device: Rolling walker Distance (ft): 150 Feet Additional Comments: Patient steady with no knee buckling or LOB with ambulation. No cueing needed for RW management. Patient with improved gait mechanics with further ambulation distance. Stair management technique: One rail L;Step-to pattern;Forward Stair assistance needed: CGA # of Stairs: 4 Balance Sitting-Static: Fair+ - Maintains balance with [...] not limit participation Vision and Hearing Screening Hearing: WF Cognition Overall Cognitive Status: Does not interfere [...] for functional mobility RLE Assessment RLE Assessment: ROM and Strength WFL LLE Assessment LLE Assessment: Abnormal Strength - LLE Overall Strength: Impaired L Knee Flexion: 3+/5 Complete ROM Against [place]/Slight Resistance L Knee Extension: 3+/5 Complete ROM Against [place]/Slight Resistance L Ankle Dorsiflexion: 4+/5 Part moves through complete ROM Against gravity / moderate to strong resistance L Ankle Plantarflexion: 4+/5 Part moves through complete ROM Against gravity / moderate to strong resistance 6 CLICKS MOBILITY Difficulty Turning from your back to your side while in bed without using bedrails?: A little Stand up from a chair using your arms (e.g., wheelchair, or bedside chair)?: A little Moving from lying on back to sitting on the side of a flat bed without using bedrails?: A little Moving to and from a bed to a chair (including a wheelchair): A little Help to walk in hospital room: A little Climbing 3-5 steps with a railing?: A little Mobility raw score : 18 Pain Information Reported L posterior ankle pain. Recommendations Assessment PT Assessment Complete?: Yes No Skilled PT: Safe to Return Home;No Acute PT Goals Identified Plan PT Frequency: One Time Visit PT Follow-up Required?: D/C Therapy Service PT Recommendations PT Recommendations: 24 hour supervision;Outpatient PT PT Equipment Recommended: Pt owns recommended PT DME Pt reports no concerns with HEP exercises and declines the need to review exercises at this time. Pt verbalizes understanding of the importance of ambulating throughout the day at home. Physical Therapy Evaluation Charge Reference History - refer to precautions, prior level of function, home set up and cognition sections above No personal factors and/or comorbidities Low 1-2 personal factors and/or comorbidities Moderate X 3 or more personal factors and/or comorbidities High Examination of body systems - refer to bed mobility, gait, wheelchair mobility, balance, coordination, vision/hearing and LE assessment (strength, light touch and proprioception) sections above Of body system(s) using standardized tests and measures addressing 1-2 elements from any of the following: body structures and functions, activity limitations, and/or participation restrictions Low X Of body system(s) using standardized tests and measures addressing 3 or more elements from any of the following: body structures and functions, activity limitations, and/or participation restrictionsModerate Of body system(s) using standardized tests and measures addressing 4 or more elements from any of the following: body structures and functions, activity limitations, and/or participation restrictionsHigh Clinical Presentation - refer to assessment, plan and recommendations sections above With stable and/or uncomplicated characteristics Low X Evolving clinical presentation with changing characteristics Moderate Unstable and unpredictable characteristics High Clinical Decision making - refer to assessment, plan and recommendations sections above Low complexity using standardized patient assessment instrument and/or measurable assessment of functional outcome Low X Moderate complexity using standardized patient assessment instrument and/or measurable assessment of functional outcome Moderate High complexity using standardized patient assessment instrument and/or measurable assessment of functional outcome High Charge: 1 Low Eval Let this serve as D/C summary (Eval = D/C Summary). Patient is safe to return home with supervision. No acute PT goals identified. D/C acute PT services. Therapist: Barrington Watson, PT Date: 01/30/2024 documented in this encounter Miscellaneous Notes * Post Anes Follow-up - Linda White RN - 01/30/2024 4:58 PM EDT Post-Anesthesia Follow-Up Note Yuliet Newsome has met the following Anesthesia criteria for discharge: Vitals: Blood Pressure: BP Readings from Last 1 Encounters: 01/30/24 115/87 Heart Rate: Pulse Readings from Last 1 Encounters: 01/30/24 71 Respirations: Resp Readings from Last 1 Encounters: 01/30/24 12 O2 Sat: SpO2 Readings from Last 1 Encounters: 01/30/24 100% Temp: Temp Readings from Last 1 Encounters: 01/30/24 (!) 97 ??F (36.1 ??C) (Core) - Cardiorespiratory status has returned to baseline, and/or is acceptable. - Pt responding verbally and following commands to acceptable level. - Temperature and hydration status acceptable. - Pain and nausea appropriately managed. - No anesthesia complications apparent at this time. Pt met PACU requirements and is ready for SDS at this time. Cosigned by Moe Centeno MD at 02/02/2024 12:45 PM EDT * Op Note - Jordy Clifton MD - 01/30/2024 3:24 PM EDT Jordy Clifton MD Hip and Knee Replacement & General Orthopaedic Surgery [facility] [phone] ([phone]) [facility] [phone] ([phone]) [place] OPERATIVE REPORT Yuliet Newsome 01/30/2024 PRE-OP DIAGNOSIS: Primary osteoarthritis of left hip [M16.12] POST-OP DIAGNOSIS: Primary osteoarthritis of left hip [M16.12] PROCEDURE: Procedure(s): LEFT TOTAL HIP ARTHROPLASTY (Left) SURGEON: Surgeon(s) and Role: * Jordy Clifton MD - Primary PHOTOGRAPHIC SPOTTER: Lance Leong DO, for the purposes of retraction, assistance for reduction, and manipulation of the limb, and assistance with wound closure as needed. ANESTHESIA: General with Field Block Nerve Block: Options were discussed for pain control, and the patient elected to undergo field block with intra-articular injection. Therefore, no nerve blocks were indicated for this procedure. ESTIMATED BLOOD LOSS: 300 mL COMPLICATIONS: None IMPLANTS USED: Polar 1 high stem, 50mm cup, neutral liner, and +8mm by 36mm head Implant Name Type Inv. Item Serial No. Trimmer Meat Lot No. LRB No. Used Action 50 MM LINER COATED SHELL - [id number] 50 MM LINER COATED SHELL * [employer]UM[employer] \T\ NEPHEW [id number] Left 1 Implanted ACETABULAR LINER 36MM ID X 50MM OD - [id number] ACETABULAR LINER 36MM ID X 50MM OD * [employer] \T\ [employer]W [id number] Left 1 Implanted STEM POLAR COLLAR LAT TI/HICKS 1 - [id number] STEM POLAR COLLAR LAT TI/HICKS 1 [id number] Left 1 Implanted HD OXINIUM FEM 12/14 36 MM L+8 - [id number] HD OXINIUM FEM 12/14 36 MM L+8 [employer] \T\ [employer] [id number] Left 1 Implanted HISTORY OF PRESENT ILLNESS: The patient is a(n) 53 y.o. female with a history of Primary osteoarthritis of left hip [M16.12] who underwent multiple conservative therapies including anti-inflammatories, injections, activity modification, maintaining ideal body weight, and use of assistive devices. Once all of these measures had failed surgical options were discussed. No guarantees were made or implied. Informed consent was obtained. RISKS OF SURGERY: An extensive conversation was [...] and expressed clear understanding of these risks. DETAILS OF PROCEDURE: The patient was given the appropriate preoperative antibiotics, brought into the operating room, and placed in the supine position on the traction table. The operative extremitywas prepped and draped in the standard sterile fashion. A timeout was performed in which the appropriate side, site, procedure, patient, and implants were confirmed. After making sure the antibioticswere administered, I made a standard incision lateral and distal to the ASIS towards the lateral knee. I divided the subcutaneous tissues in line with the incision, and incised the fascia sharply. I identified the fascia of the TFL and incised this sharply. Once I had opened this up, I dissected the interval between it and the sartorius, I identified the lateral circumflex vessels which were coagulated using electrocautery and/or bipolar. I also released them, as well as releasing the deep fascia. Once these were done, I made a capsulotomy along the femoral neck, and cleaned the synovial tissue, taking care to release distal on the femur, medially, and preserving the indirect head of the rectus femoris. I put retractors on either side of the femoral neck. I made an osteotomoy of the neck. I put some traction on the leg and removed the remaining head from the acetabulum with a power corkscrew. I used a pituitary long-handled scalpel to remove the remaining labrum from the acetabulum, after placing the anterior and posterior wall retractors. Once it was gone, I began sequentially reaming, after bringing in the C-arm and balancingthe pelvis. I first medialized with a starting reamer. I reamed up to approximately a 50mm reamer. I felt this had good bleeding bone. The patient had good bone quality. I thought this would be the correct size.I went ahead and mounted the 50mm cup under direct vision, and malleted it into place using C-Arm fluoroscopy. It went in very well and had very good fixation. I checked it under fluoroscopy. After placing the cup, it was stable. At this point, I went ahead and put the liner in without difficulty. Confirmed secure. Once the liner was in place, I went ahead and turned to the femur. I did some more medial and lateral capsular releasing. I externally rotated, dropped and adducted the leg. I elevated the femur. At this point, I began broaching with a box osteotome and broaching the femur, being careful not to perforate the femoral shaft. I continued to a high offset collared size 1 stem. I kept checking under fluoroscopy to make sure Igot the right stem size. Once I had this sized, I went ahead and trialed it with a 36mm +8mm head. I reduced it. It was stable through a range of motion. I took x-rays of hips and overlayed the films, using the light box. At this point, I felt that the stem was the correct size. I also felt that our length and offset was within a few millimeters or so, after checking with c-arm. At this point, I came back in and carefully dislocated the hip. It was very stable. I then went ahead and put the real stem in and the realhead on a clean, dry taper. I reduced it and it remained stable through range of motion. Once again, I took x-rays as described. I felt this was very good fixation, good alignment, and good stability, as well as recreation of the offset and leg length. I copiously irrigated with sterile saline. I achieved hemostasis using electrocautery and then closed the fascia of the tensor fascia stalin with a r unning locking suture, and closed the rest in the usual layered fashion. The patient tolerated the procedure well. I used local anesthetic, per the nursing chart. At the end of the procedure the instrument count was correct. There were no complications. Transferred stable to the PACU. POSTOPERATIVE COURSE: Weight bearing as tolerated. PT for mobility. DVT and Antibiotic prophylaxis.Follow up in 1-2 weeks for wound check and X-Ray of the pelvis and operative hip. Jordy Clifton MD documented in this encounter Plan of Treatment Not on file documented as of this encounter Procedures Procedure Name Priority Date/Time Associated Diagnosis Comments MSK OUTCOME SCORES Routine 05/10/2024 8: 37 PM EDT MSK OUTCOME SCORES Routine 03/14/2024 11 :17 AM EDT DIAG-SVCS OS DEPT EA 30 MIN Routine 01/30/2024 3:30 PM EDT DIAG-FLUORO SVCS IN SURGERY Routine 01/30/2024 3:30 PM EDT DIAG-LEFT HIP 2-3 VIEWS W/WO PELVIS Routine 01/30/2024 3:30 PM EDT OR ARTHRP ACETBLR/PROX FEM PROSTC AGRFT/ALGRFT 01/30/2024 1:52 PM EDT Primary osteoarthritis of left hip MSK OUTCOME SCORES Routine 01/27/2024 1: 50 PM EDT documented in this encounter Results * MSK OUTCOME SCORES (05/10/2024 8:37 PM EDT) 05/10/2024 8:37 PM EDT us External Provider RESULTABLE ONLY ORDERS Edited Result - Final [facility] [address] * MSK OUTCOME SCORES (03/14/2024 11:17 AM EDT) 03/14/2024 11:1 7 AM EDT External Provider RESULTABLE ONLY ORDERS Edited Result - Final [facility] [address] [place] [address], [place] * DIAG-SVCS OS DEPT EA 30 MIN (01/30/2024 3:30 PM EDT) Impressions Prema Sparks, RT - 01/30/2024 3:30 PM EDT ABOVE Narrative Prema Sparks, RT - 01/30/2024 3:30 PM EDT Fluoroscopic assistance was provided and/or was available during the above procedure.?? A Radiologist was not in attendance.? Fluoro time =?0 minutes and 0 seconds. ?? Jordy Clifton MD G FLUOROSCOPY ORDERABLE S Final Result * DIAG-FLUORO SVCS IN SURGERY (01/30/2024 3:30 PM EDT) Impressions Prema Sparks, RT - 01/30/2024 3:30 PM EDT ABOVE Narrative Prema Sparks, RT - 01/30/2024 3:30 PM EDT Fluoroscopic assistance was provided and/or was available during the above procedure.?? A Radiologist was not in attendance.? Fluoro time =?0 minutes and 13 seconds. ?? Jordy Clifton MD IMG FLUOROSCOPY ORDERABLE S Final Result * DIAG-LEFT HIP 2-3 VIEWS W/WO PELVIS (01/30/2024 3:30 PM EDT) Anatomical Region Laterality Modality Pelvis Radiographic Fallon ging 01/30/2024 8:24 PM EDT Impressions 01/30/2024 8:25 PM EDT IMPRESSION: Fluoroscopy provided as above. See operative report for details. Electronically signed by Efrain Ott MD Narrative 01/30/2024 8:25 PM EDT INTRAOPERATIVE FLUOROSCOPY INDICATION: intraop images FINDINGS: Total number of images: 3 Fluoroscopy time: 14 seconds Reference Air Kerma: 1.8 mGy Fluoroscopy was provided. No radiologist was in attendance. Archived image(s) demonstrate left total hip arthroplasty in place. Procedure Note Efrain Ott MD - 01/30/2024 INTRAOPERATIVE FLUOROSCOPY INDICATION: intraop images FINDINGS: Total number of images: 3 Fluoroscopy time: 14 seconds Reference Air Kerma: 1.8 mGy Fluoroscopy was provided. No radiologist was in attendance. Archivedimage(s) demonstrate left total hip arthroplasty in place. IMPRESSION: Fluoroscopy provided as above. See operative report for details. Electronically signed by Efrain Ott MD Jordy Clifton MD IMG DIAGNOSTIC IMAGING OR DERABLES Final Result * MSK OUTCOME SCORES (01/27/2024 1:50 PM EDT) 01/27/2024 1:50 PM EDT External Provider RESULTABLE ONLY ORDERS Final R esult Performing Organization Address City/State/[facility] Co de Phone Number [facility] [address] documented in this encounter Visit Diagnoses Diagnosis Primary osteoarthritis of left hip- Primary Primary localized osteoarthrosis, pelvic region and thigh Primary osteoarthritis of left hip Primary localized osteoarthrosis, pelvic region and thigh Post-op pain Other acute postoperative pain Primary osteoarthritis of left hip Primary localized osteoarthrosis, pelvic region and thigh documented in this encounter Admitting Diagnoses Diagnosis Primary osteoarthritis of left hip Primary localized osteoarthrosis, pelvic region and thigh documented in this encounter Administered Medications Inactive Administered Medications - up to 3 most recent administrations Medication Order MAR Action Action Date Dose Rate Site acetaminophen (TYLENOL) tablet 1,000 mg 1,000 mg, Oral, PRE-OP ONCE, Starting on Fri01/30/24 at 0000, For 1 dose, Pre-op (day of surgery) Given 01/30/2024 1:10 PM EDT 1,000 mg dexAMETHasone (DECADRON) injection 4 mg 4 mg, Intravenous, PRE-OP ONCE, Starting on Fri01/30/24 at 1709, For 1 dose, Pre-op (day of surgery) famotidine (PEPCID) tablet 20 mg 20 mg, Oral, PRE-OP ONCE, Starting on Fri01/30/24 at 0000, For 1 dose, Pre-op (day of surgery), Preferred route is PO if able to take PO. Given 01/30/2024 1:10 PM EDT 20 mg fentaNYL (Sublimaze) 50 mcg/mL injection 25 mcg 25 mcg, Intravenous, PACU PRN, Other (enter comment), See Administration Instructions, Starting on Fri01/30/24 at 1604, PACU, Second choice for pain PACU/SDS only. For pain scale 4-10 give q5min for a maximum of 150 mcg. haloperidol (HALDOL) 5 mg/mL injection 1 mg 1 mg, Intravenous, PACU PRN, Agitation, Use as RESCUE antiemetic if primary antiemetic fails, Starting on Fri01/30/24 at 1604, For 1 dose, PACU, A baseline ECG is required for patients receiving a dose of haloperidol IV greater than 2mg or a cumulative dose greater than 2 mg within a 24 hour period. A baseline ECG is required for patients receiving ANY dose of haloperidol IV if they have risk factors for arrhythmias: -Heart conditions -Electrolyte imbalance: hypokalemia, hypomagnesemia -Concomitant proarrhythmic drug use -Mechanical ventilation IV doses less than or equal to 2 mg, or IM doses less than or equal to 10 mg, DO NOT require an ECG. HYDROmorphone (Dilaudid) 1 mg/mL injection Syrg 0.25 mg 0.25 mg, Intravenous, PACU PRN, Other (enter comment), See Admin. Instructions. For Pain level 2-4, Starting on Fri01/30/24 at 1604, PACU, Look alike/ Sound alike. First choice for pain PACU/SDS only. Give every 5 minutes as needed. Total MAX dose = 2 mg ( including the order for pain scale 5-10 ) HYDROmorphone (Dilaudid) 1 mg/mL injection Syrg 0.5 mg 0.5 mg, Intravenous, PACU PRN, Other (enter comment), See Admin. Instructions, For pain level 5-10, Starting on Fri01/30/24 at 1604, PACU, Look alike/ Sound alike. First choice for pain PACU/SDS only. Give every 5 minutes as needed. Total MAX dose = 2 mg ( including the order for pain scale 2-4 ) Given 01/30/2024 4:35 PM EDT 0.5 mg Given 01/30/2024 4:20 PM EDT 0.5 mg Given 01/30/2024 4:15 PM EDT 0.5 mg lactated ringers infusion 125 mL/hr, Intravenous, PACU CONTINUOUS, Starting on Fri01/30/24 at 1700, PACU methoCARBAMOL (ROBAXIN) injection 1,000 mg 1,000 mg, Intravenous, PACU PRN, muscle spasm, Muscle Pain, If unable to take PO, Starting on Fri01/30/24 at 1604, For 1 dose, PACU New Bag 01/30/2024 4:09 PM EDT 1,000 mg 40 mL/hr midazolam (Versed) 1 mg/mL injection 2 mg 2 mg, Intravenous, PRE-OP ONCE, Starting on Fri01/30/24 at 1709, For 1 dose, Pre-op (day of surgery) ondansetron (PF) (ZOFRAN) injection 4 mg 4 mg, Intravenous, PACU MULTIPLE, Starting on Fri01/30/24 at 1604, For 2 doses, PACU oxyCODONE (ROXICODONE) immediate release tablet 5 mg 5 mg, Oral, PACU PRN, Moderate Pain Intensity (4-6), Severe Pain Intensity (7-10), post procedure, Starting on Fri01/30/24 at 1604, For 1 dose, PACU, If patient able to take PO medication. May give 1 dose . Given 01/30/2024 5:55 PM EDT 5 mg ROPivacaine (PF) (NAROPIN) 5 mg/mL (0.5 %) 150 mg, BUPivacaine (PF) (MARCAINE) 0.75 % 150 mg, EPINEPHrine (ADRENALIN) 0.15 mg, dexAMETHasone (DECADRON) 8 mg, cloNIDine 100 mcg in sodium chloride 100 mcg in sodium chloride 0.9 % 50 mL Intra-articular, INTRA-OP ONCE, Starting on Fri01/30/24 at 0000, For 1 dose Given 01/30/2024 2:54 PM EDT Left Hip scopolamine (TRANSDERM-SCOPE) *remove patch* Starting on Fri01/31/24 at 1709 scopolamine (TRANSDERM-SCOPE) patch check Starting on Fri01/30/24 at 2100 sodium chloride 0.9 % irrigation INTRA-OP PRN, Starting on Fri01/30/24 at 1424, Until Fri01/30/24 at 1604, Intra-op Given 01/30/2024 2:30 PM EDT 3,000 mL Given 01/30/2024 2:24 PM EDT 1,000 mL sodium chloride 0.9% IV solution 1,000 mL, Intravenous, PRE-OP CONTINUOUS, Starting on Fri01/30/24 at 0000, Pre-op (day of surgery) Restarted 01/30/2024 1:53 PM EDT New Bag 01/30/2024 12:32 PM EDT 1,000 mL 125 mL/hr tranexamic acid 1000 mg in sodium chloride 0.9% - total volume 50 ml 1,000 mg, Intra-articular, INTRA-OP ONCE, Starting on Fri01/30/24 at 0000, For 1 dose, Intra-op Given 01/30/2024 2:54 PM EDT 1,000 mg Left Hip documented in this encounter Active and Recently Administered Medications Times are shown in EDT. Scheduled Medication Order 01/28/2024 01/29/2024 01/30/2024 acetaminophen (TYLENOL) tablet 1,000 mg (COMPLETED) 1,000 mg, Oral, PRE-OP ONCE, Starting on Fri01/30/24 at 0000, For 1 dose, Pre-op (day of surgery) 1310 (Given - Provid er: Virginia King RN) ceFAZolin (Ancef) syringe for injection 2 g 20 mL (COMPLETED) 2 g (2,000 mg), Intravenous, at 60 mL/hr, PRE-OP ONCE, Starting on Fri01/30/24 at 0000, For 1 dose, Pre-op (day of surgery), Administer over 20 Minutes, REFRIGERATOR 1355 (Given - Provid er: JAYESH Saldaña) dexAMETHasone (DECADRON) injection 4 mg 4 mg, Intravenous, PRE-OP ONCE, Starting on Fri01/30/24 at 1709, For 1 dose, Pre-op (day of surgery) famotidine (PEPCID) tablet 20 mg (COMPLETED)(Linked Group 1) 20 mg, Oral, PRE-OP ONCE, Starting on Fri01/30/24 at 0000, For 1 dose, Pre-op (day of surgery), Preferred route is PO if able to take PO. 1310 (Given - Provid er: Virginia King RN) midazolam (Versed) 1 mg/mL injection 2 mg 2 mg, Intravenous, PRE-OP ONCE, Starting on Fri01/30/24 at 1709, For 1 dose, Pre-op (day of surgery) ondansetron (PF) (ZOFRAN) injection 4 mg 4 mg, Intravenous, PACU MULTIPLE, Starting on Fri01/30/24 at 1604, For 2 doses, PACU ROPivacaine (PF) (NAROPIN) 5 mg/mL (0.5 %) 150 mg, BUPivacaine (PF) (MARCAINE) 0.75 % 150 mg, EPINEPHrine (ADRENALIN) 0.15 mg, dexAMETHasone (DECADRON) 8 mg, cloNIDine 100 mcg in sodium chloride 100 mcg in sodium chloride 0.9 % 50 mL (COMPLETED) Intra-articular, INTRA-OP ONCE, Starting on Fri01/30/24 at 0000, For 1 dose 1454 (Given - Provid er: Aleyda Tyler RN - Comment: Given on back table per MD) scopolamine (TRANSDERM-SCOP) patch (1 mg over 3 days) 1 Patch 1 Patch, Transdermal, EVERY 24 HOURS, First dose on Fri01/30/24 at 1800, For 1 dose, Pre-op (day of surgery), Administer over 72 Hours, Apply behind ear. *See Waste Disposal Precaution Procedures - Place in Black Bin* 1800 (Due) scopolamine (TRANSDERM-SCOPE) *remove patch* Starting on Fri01/31/24 at 1709 scopolamine (TRANSDERM-SCOPE) patch check Starting on Fri01/30/24 at 2100 tranexamic acid 1000 mg in sodium chloride 0.9% - total volume 50 ml (COMPLETED) 1,000 mg, Intra-articular, INTRA-OP ONCE, Starting on Fri01/30/24 at 0000, For 1 dose, Intra-op 1454 (Given - Provid er: Aleyda Tyler RN - Comment: Given on back table per MD) Continuous Medication Order 01/28/2024 01/29/2024 01/30/2024 lactated ringers infusion 125 mL/hr, Intravenous, PACU CONTINUOUS, Starting on Fri01/30/24 at 1700, PACU 1700 (Due) sodium chloride 0.9% IV solution (CANCELED) 1,000 mL, Intravenous, PRE-OP CONTINUOUS, Starting on Fri01/30/24 at 0000, Pre-op (day of surgery) 1232 (New Bag - Prov ider: Beatriz Grey RN)1352 (Paused - Provider: JAYESH Saldaña - Comment: Switch to gravity)1353 (Restarted - Provider: JAYESH Saldaña)1503 (Stopped - Provider: Linda Umanzor CRNA) PRN Medication Order 01/28/2024 01/29/2024 01/30/2024 fentaNYL (Sublimaze) 50 mcg/mL injection 25 mcg 25 mcg, Intravenous, PACU PRN, Other (enter comment), See Administration Instructions, Starting on Fri01/30/24 at 1604, PACU, Second choice for pain PACU/SDS only. For pain scale 4-10 give q5min for a maximum of 150 mcg. haloperidol (HALDOL) 5 mg/mL injection 1 mg 1 mg, Intravenous, PACU PRN, Agitation, Use as RESCUE antiemetic if primary antiemetic fails, Starting on Fri01/30/24 at 1604, For 1 dose, PACU, A baseline ECG is required for patients receiving a dose of haloperidol IV greater than 2mg or a cumulative dose greater than 2 mg within a 24 hour period. A baseline ECG is required for patients receiving ANY dose of haloperidol IV if they have risk factors for arrhythmias: -Heart conditions -Electrolyte imbalance: hypokalemia, hypomagnesemia -Concomitant proarrhythmic drug use -Mechanical ventilation IV doses less than or equal to 2 mg, or IM doses less than or equal to 10 mg, DO NOT require an ECG. HYDROmorphone (Dilaudid) 1 mg/mL injection Syrg 0.25 mg 0.25 mg, Intravenous, PACU PRN, Other (enter comment), See Admin. Instructions. For Pain level 2-4, Starting on Fri01/30/24 at 1604, PACU, Look alike/ Sound alike. First choice for pain PACU/SDS only. Give every 5 minutes as needed. Total MAX dose = 2 mg ( including the order for pain scale 5-10 ) HYDROmorphone (Dilaudid) 1 mg/mL injection Syrg 0.5 mg 0.5 mg, Intravenous, PACU PRN, Other (enter comment), See Admin. Instructions, For pain level 5-10, Starting on Fri01/30/24 at 1604, PACU, Look alike/ Sound alike. First choice for pain PACU/SDS only. Give every 5 minutes as needed. Total MAX dose = 2 mg ( including the order for pain scale 2-4 ) 1610 (Given - Provid er: Linda White RN)1615 (Given - Provider: Linda White RN)1620 (Given - Provider: Linda White RN)1635 (Given - Provider: Linda White RN) methoCARBAMOL (ROBAXIN) injection 1,000 mg (COMPLETED)(Linked Group 2) 1,000 mg, Intravenous, PACU PRN, muscle spasm, Muscle Pain, If unable to take PO, Starting on Fri01/30/24 at 1604, For 1 dose, PACU 1609 (New Bag - Prov ider: Linda White RN) oxyCODONE (ROXICODONE) immediate release tablet 5 mg (COMPLETED) 5 mg, Oral, PACU PRN, Moderate Pain Intensity (4-6), Severe Pain Intensity (7-10), post procedure, Starting on Fri01/30/24 at 1604, For 1 dose, PACU, If patient able to take PO medication. May give 1 dose . 1755 (Given - Provid er: Dalton Thomas RN) sodium chloride 0.9 % irrigation (CANCELED) INTRA-OP PRN, Starting on Fri01/30/24 at 1424, Until Fri01/30/24 at 1604, Intra-op 1424 (Given - Provid er: Jordy Clifton MD - Comment: Back table)1430 (Given - Provider: Jordy Clifton MD - Comment: Pulsavac) Linked Groups Order Group 1: famotidine (PEPCID) tablet 20 mg (COMPLETED)Jump to med 20 mg, Oral, PRE-OP ONCE, Starting on Fri01/30/24 at 0000, For 1 dose, Pre-op (day of surgery), Preferred route is PO if able to take PO. Or famotidine (PF) (PEPCID) injection 20 mg (COMPLETED) 20 mg, Intravenous, PRE-OP ONCE, Starting on Fri01/30/24 at 0000, For 1 dose, Pre-op (day of surgery), Give if unable to take PO Group 2: methocarbamoL (ROBAXIN) tablet 1,000 mg (COMPLETED) 1,000 mg, Oral, PACU PRN, muscle spasm, Muscle Pain, Starting on Fri01/30/24 at 1604, For 1 dose, PACU, In PACU or SDS Or methoCARBAMOL (ROBAXIN) injection 1,000 mg (COMPLETED)Jump to med 1,000 mg, Intravenous, PACU PRN, muscle spasm, Muscle Pain, If unable to take PO, Starting on Fri01/30/24 at 1604, For 1 dose, PACU documented in this encounter Care Teams Upper Tier Relationship Specialty Start Date End Date Julisa Kerr MD [address] [place] [id number] PCP - General Family Medicine 08/07/23 documented as of this encounter
--- OUTSIDE RECORDS SUMMARY | 2024-08-22 21:54 | XMS_ITS | Encounter Summary ---
Author Organization [facility] Address [address] [place] [address] Care Team Providers Care Linux Solar[employer] Administrator Name Role Phone Julisa Kerr MD Primary Care Provider [phone] Reason for Referral * Consultation (Routine) - Authorized Specialty Diagnoses / Procedures Referred By Anatoliy t Referred To Contact Neurology Diagnoses Nausea and vomiting, unspecified vomiting type Dizziness Generalized weakness Dimple Long DO [address] [place] [address] Phone: tel: fax: [facility] [address], [address] [place] [address] Phone: tel: fax: Referral ID Status Reason Start Date Expiration Date Visits Requested Visits Authorized [id number] Authorized Specialty Services Required 05/28/2023 11/26/2024 1 1 Reason for Visit * Reason Comments Multiple Complaints Encounter Details Date Type Department Care Team (Late st Contact Info) Description 05/28/2023 12:46 AM EDT - 05/28/2023 6:33 AM EDT Emergency [facility] [address] [place] [address] Dimple Long DO [address] [place] [address] Nausea and vomiting, unspecified vomiting type (Primary Dx); Dizziness; Generalized weakness Discharge Disposition: Home or Self [...] Sign Reading Time Taken Comments Blood Pressure 113/71 05/28/2023 4:18 AM EDT Pulse 83 05/28/2023 4:18 AM EDT Temperature 37.1 ??C (98.7 ??F) 05/28/2023 4:18 AM ED T Respiratory Rate 18 05/27/2023 11:40 PM EDT Oxygen Saturation 94% 05/28/2023 4:18 AM EDT Inhaled Oxygen Concentration - - Weight - - Height - - Body Mass Index - - documented in this encounter Discharge Instructions * Discharge Instructions* Maynor Jones DO - 05/28/2023 6:41 AM EDT Please follow-up with Neurology. Please go to scheduled MRI appointment this week. Please follow-up with your primary care provider for evaluation of mass behind the knee. Please return to the ER if symptoms worsen. * Attachments The following attachments cannot be sent through Care Everywhere. * Dizziness, Uncertain Cause (Montserratian) documented in this encounter Medications at Time of Discharge amitriptyline (Elavil) 25 MG tablet Take 25 mg by mouth every night. 08/11/2020 methotrexate 250 MG/10ML injection 50 mg every 7 (seven) days. 06/21/2020 predniSONE (Deltasone) 10 MG tablet Take 10 mg by mouth. 11/22/2020 documented as of this encounter Miscellaneous Notes * ED Provider Notes - Maynor Jones DO - 05/27/2023 11:37 PM EDT Images from the original note were not included. - HPI Chief Complaint Patient presents with Multiple Complaints 52-year-old female patient with history of rheumatoid arthritis presents to the emergency department for evaluation of dizziness, fever, nausea, vomiting, generalized weakness, onset 3 weeks ago, intermittent, but worsening in intensity. Patient is scheduled for outpatient MRI in 2 days. Patient also has a soft tissue mass behind her knee which she is scheduled to receive imaging for with her primary care provider. Patient has presented to multiple emergency departments over the last few monthsand has seen multiple physicians. No chest pain, abdominal pain, shortness of breath, or leg swelling. No further complaints at this time [place] Coma Scale Score: 15 Patient History No past medical history on file. No past surgical history on file. No family history on file. Tobacco Use Smoking status: Never Immunization History Immunization History: reviewed Allergies: Allergies Allergen Reactions Abatacept Unknown - Patient states they do not know rxn details Adalimumab Unknown - Patient states they do not know rxn details Celecoxib Unknown - Patient states they do not know rxn details Etanercept Unknown - Patient states they do not know rxn details Review of Systems Review of Systems Constitutional: Positive for fatigue and fever. Respiratory: Negative for shortness of breath. Cardiovascular: Negative for chest pain and leg swelling. Gastrointestinal: Positive for nausea and vomiting. Negative for abdominal pain. Genitourinary: Negative for dysuria. Musculoskeletal: Negative for back pain. Knee mass Neurological: Positive for dizziness. Physical Exam ED Triage Vitals Temp Heart Rate Resp BP 05/27/23 2340 05/27/23 2340 05/27/23 2340 05/27/23 2340 37.9 ??C (100.2 ??F) 103 18 125/81 SpO2 Temp Source Heart Rate Source Patient Position 05/27/23 2340 05/27/23 2340 05/28/23 0418 05/28/23 0418 97 % Oral Monitor Lying BP Location FiO2 (%) 05/28/23 0418 -- Right arm Physical Exam Vitals and nursing note reviewed. Constitutional: General: She is not in acute distress. Appearance: Normal appearance. She is not ill-appearing, toxic-appearing or diaphoretic. HENT: Head: Normocephalic and atraumatic. Eyes: General: No scleral icterus. Cardiovascular: Rate and Rhythm: Normal rate and regular rhythm. Pulmonary: Effort: Pulmonary effort is normal. No respiratory distress. Breath sounds: Normal breath sounds. No wheezing. Abdominal: Tenderness: There is no abdominal tenderness. Musculoskeletal: Right lower leg: No edema. Left lower leg: No edema. Skin: General: Skin is warm and dry. Neurological: General: No focal deficit present. Mental Status: She is alert and oriented to person, place, and time. Cranial Nerves: No cranial nerve deficit. Sensory: No sensory deficit. ED Course & MDM Clinical Impressions as of 05/28/23 0724 Nausea and vomiting, unspecified vomiting type Dizziness Generalized weakness OPIOID SMARTFORM Medical Decision Making MDM: Patient is a 52 y.o. female whose chronic conditions includes rheumatoid arthritis, which currentlyis not at goal therapy (this complicates their clinical picture because it may be exacerbating symptoms and increases the risk for morbidity) presenting with dizziness, fever, generalized weakness, onset 3 weeks ago, intermittent, worsening. History was obtained by patient and daughter. On arrival,the patient was hemodynamically stable, non-febrile, and non-toxic appearing. Differential diagnosis includes but is not limited to pneumonia, viral URI, multiple sclerosis, demyelinating disease of the brain, pulmonary embolism, pneumothorax, acute coronary syndrome. Ruling out the most morbid conditions drove my assessment. Records from Care everywhere were personally reviewed by me, significant for multiple visits to theemergency department and rheumatology. No significant etiologies have been identified to be the cause of this patient's symptoms Initial management included Tylenol, Zofran, Toradol, IV fluids normal saline. Initial workup included CBC, CMP, CTA head, CT PE, CTA abdomen, CTA neck, chest x-ray. Labs are significant for unremarkable labs for any acute emergent pathology. Imaging was independently visualized and interpreted by me, with findings of no acute emergent findings. Chest x-ray shows evidence of potential inflammation. This is likely secondary to methotrexateuse.. See radiology report for further details. EKG was independently reviewed by me, showing normal sinus rhythm, no atrial fibrillation, no atrial flutter, no ST elevation, no STEMI. Counseled patient that her workup is negative for any acute emergent findings that warrant further evaluation in the hospital. Counseled patient that it is important that she obtains her MRI this week. This will help rule out any demyelinating diseases of the brain. Gave patient referral to [facility] for evaluation of dizziness spells. Patient has remained hemodynamically stable throughout thecourse of ED stay. Vital signs are within normal limits. Pain controlled. ED Prescriptions None Discharge Instructions Please follow-up with [facility]. Please go to scheduled MRI appointment this week. Please follow-up with your primary care provider for evaluation of mass behind the knee. Please return to the ER if symptoms worsen. Discharge References/Attachments Dizziness, Uncertain Cause ([place]serr[place]ian) Disposition Discharge AVS (Printed 05/28/2023) Follow-Ups: [facility] ([facility]urology) Discharge Orders Discharge Ambulatory referral to Neurology Authorized Sign Off Checklist Clinical Impression: Complete ED Disposition: Complete -dictation device used to write this note Maynor Jones DO Resident 05/28/23 0724 Cosigned by Dimple Long DO at 05/29/2023 5:41 AM EDT Associated attestation - Dimple Long DO - 05/29/2023 5:41 AM EDT I saw and evaluated the patient with the resident/fellow. I discussed the case with the resident/fellow and agree with the findings and plan as documented. Patient is well-appearing with reassuring neurologic exam, cardiopulmonary exam, and vital signs. I feel she would benefit from close outpatient follow up for a chronic recurring problem. * ED Triage Notes - Maryam Forbes RN - 05/27/2023 11:37 PM EDT Pt presents for fevers, vomiting, and generalized weakness for several weeks. documented in this encounter Plan of Treatment Scheduled Referrals Name Type Priority Associated Diagnoses Orde r Schedule Discharge Ambulatory referral to Neurology Outpatient Referral Routine Nausea and vomiting, unspecified vomiting type Dizziness Generalized weakness Expected: 05/28/2023 (Approximate), Expires: 11/26/2024 documented as of this encounter Procedures Procedure Name Priority Date/Time Associated Diagnosis Comments CT ANGIO PULMONARY EMBOLISM STAT 05/28/2023 5:[address] ABDOMEN PELVIS W IV CONTRAST STAT 05/28/2023 5:[address] ANGIO NECK STAT 05/28/2023 5:[address] HEAD WO IV CONTRAST STAT 5:[address] ANGIO HEAD STAT 05/28/2023 5:34 AM EDT BLOOD CULTURE (AEROBIC/ANAEROBIC SET) STAT 05/28/2023 4:42 AM EDT BLOOD CULTURE (AEROBIC/ANAEROBIC SET) STAT 05/28/2023 4:42 AM EDT XR CHEST 2 VIEWS STAT 05/28/2023 4:00 AM EDT URINALYSIS MICROSCOPIC FOR UA REFLEX STAT 05/28/2023 3:28 AM EDT URINALYSIS WITH REFLEX MICROSCOPIC STAT 05/28/2023 3:28 AM EDT ED HIV 1/2 ANTIBODY/ANTIGEN SCREEN WITH REFLEX TO HIV I/II DIFFERENTIATION STAT 05/28/2023 2:53 AM EDT ED PROTOCOL HIV 1/2 ANTIBODY/ANTIGEN SCREEN W/REFLEX TO HIV 1/2 ANTIBODY DIFFERENTIATION STAT 05/28/2023 2:53 AM EDT LACTATE, VENOUS STAT 05/28/2023 2:53 AM EDT HEPATITIS C ANTIBODY - ED W/REFLEX TO HCV QUANT PCR STAT 05/28/2023 2:53 AM EDT CBC WITH AUTO DIFFERENTIAL STAT 05/28/2023 2:53 AM EDT COMPREHENSIVE METABOLIC PANEL, PLASMA STAT 05/28/2023 2:53 AM EDT ECG ADULT STAT 05/28/2023 2:52 AM EDT documented in this encounter Results * CT Abdomen Pelvis w IV Contrast (05/28/2023 5:34 AM EDT) Anatomical Region Laterality Modality Abdomen, Pelvis Computed Tomogra phy Impressions 05/28/2023 6:21 AM EDT 1. No pulmonary embolism. 2. No acute findings in the abdomen or pelvis. CRITICAL RESULT: ?? No. COMMUNICATION: Per this written report. Preliminary report signed by Jose Juan Anderson MD on 05/28/2023 6:02 AM By electronically signing this report, I, the attending physician, attest that I have personally reviewed the images/data for the above examination(s) and agree with the final edited report. Drafted by Jose Juan Anderson MD on 05/28/2023 5:50 AM Final report signed by Rusty Hernandez MD on 05/28/2023 6:21 AM Narrative 05/28/2023 6:21 AM EDT CLINICAL INDICATION: dizziness, near syncope, fevers TECHNIQUE: Imaging of the chest abdomen and pelvis was performed, from thoracic inlet through pubic symphysis, using spiral technique, following administration of IV contrast, Omnipaque 350, 100 mL according to the CT PE protocol and CT Abdomen/Pelvis protocol. Delayed (excretory phase) images were performed through the kidneys. Reformatted images in the coronal, sagittal, and oblique planes were generated from the axial data set to facilitate diagnostic accuracy. In addition, 3D images were created and reviewed. Total DLP (Dose-Length Product): 2653 mGy*cm. Please note: The reported value represents the total of one or more individual components during the CT acquisition on this date and at this time, and as such, the same value may appear in more than one CT report depending on the interpreting/reporting physicians. COMPARISON: None. FINDINGS: Chest: Aorta/Vessels: No pulmonary embolism. The brachiocephalic artery and left common carotid artery share a common origin. Pleural/Pericardial Space: No pneumothorax. No pleural effusions. No pericardial effusion. Lymph Nodes: No lymphadenopathy within the chest. 16 x 11 mm right axillary lymph node is not enlarged by CT size criteria (series 7 image 224). Lungs: Except for minimal dependent atelectasis, the lungs are clear. Mediastinum: Otherwise unremarkable. Chest Wall: No chest wall hematoma or contusion. Bones: No acute fracture within the chest. Abdomen: Liver/Gallbladder/Biliary System: The liver demonstrates homogeneous enhancement. Normal Gallbladder. No intra- or extra-hepatic biliary ductal dilatation. Spleen: The spleen enhances homogeneously. Pancreas: The pancreas enhances homogeneously. Adrenals: The adrenals are morphologically unremarkable. Kidneys: The kidneys demonstrate symmetric nephrogram and excretion. No renal or ureteral calculi. No hydronephrosis. Bilateral extrarenal pelvises. Small calcification in the region of the proximal right ureter is felt to be a vascular calcification and external to the ureter. Bowel/Mesentery: The small bowel loops are not dilated. The large bowel loops are not dilated. The appendix is visualized and normal. Vessels/Lymph Nodes: Minimal abdominal aortic atherosclerosis. No lymphadenopathy within the abdomen or pelvis. Several nonenlarged periaortic and inguinal lymph nodes. Fluid Survey: No free fluid in the abdomen. No free fluid in the pelvis. Pelvis: Hysterectomy. Phleboliths. Body Wall: Normal. Bones: No acute fracture within the abdomen or pelvis. Procedure Note Rusty Hernandez MD - 05/28/2023 CLINICAL INDICATION: dizziness, near syncope, fevers TECHNIQUE: Imaging of the chest abdomen and pelvis was performed, from thoracic inletthrough pubic symphysis, using spiral technique, following administrationof IV contrast, Omnipaque 350, 100 mL according to the CT PE protocol andCT Abdomen/Pelvis protocol. Delayed (excretory phase) images wereperformed through the kidneys. Reformatted images in the coronal,sagittal, and oblique planes were generated from the axial data set tofacilitate diagnostic accuracy. In addition, 3D images were created andreviewed. Total DLP (Dose-Length Product): 2653 mGy*cm. Please note: The reportedvalue represents the total of one or more individual components during theCT acquisition on this date and at this time, and as such, the same valuemay appear in more than one CT report depending on theinterpreting/reporting physicians. COMPARISON: None. FINDINGS: Chest: Aorta/Vessels: No pulmonary embolism. The brachiocephalic artery and leftcommon carotid artery share a common origin. Pleural/Pericardial Space: No pneumothorax. No pleural effusions. Nopericardial effusion. Lymph Nodes: No lymphadenopathy within the chest. 16 x 11 mm rightaxillary lymph node is not enlarged by CT size criteria (series 7 ). Lungs: Except for minimal dependent atelectasis, the lungs are clear. Mediastinum: Otherwise unremarkable. Chest Wall: No chest wall hematoma or contusion. Bones: No acute fracture within the chest. Abdomen: Liver/Gallbladder/Biliary System: The liver demonstrates homogeneousenhancement. Normal Gallbladder. No intra- or extra-hepatic biliary ductaldilatation. Spleen: The spleen enhances homogeneously. Pancreas: The pancreas enhances homogeneously. Adrenals: The adrenals are morphologically unremarkable. Kidneys: The kidneys demonstrate symmetric nephrogram and excretion. Norenal or ureteral calculi. No hydronephrosis. Bilateral extrarenalpelvises. Small calcification in the region of the proximal right ureteris felt to be a vascular calcification and external to the ureter. Bowel/Mesentery: The small bowel loops are not dilated. The large bowelloops are not dilated. The appendix is visualized and normal. Vessels/Lymph Nodes: Minimal abdominal aortic atherosclerosis. Nolymphadenopathy within the abdomen or pelvis. Several nonenlargedperiaortic and inguinal lymph nodes. Fluid Survey: No free fluid in the abdomen. No free fluid in the pelvis. Pelvis: Hysterectomy. Phleboliths. Body Wall: Normal. Bones: No acute fracture within the abdomen or pelvis. IMPRESSION: 1. No pulmonary embolism. 2. No acute findings in the abdomen or pelvis. CRITICAL RESULT: No. COMMUNICATION: Per this written report. Preliminary report signed by Jose Juan Anderson MD on 05/28/2023 6:02 AM By electronically signing this report, I, the attending physician, attestthat I have personally reviewed the images/data for the aboveexamination(s) and agree with the final edited report. Drafted by Jose Juan Anderson MD on 05/28/2023 5:50 AM Final report signed by Rusty Hernandez MD on 05/28/2023 6:21 AM us Dimple Long DO IMG CT PROCEDURES Final Result * CT Angio Pulmonary Embolism (05/28/2023 5:34 AM EDT) Anatomical Region Laterality Modality Chest Computed Tomogra phy Impressions 05/28/2023 6:21 AM EDT 1. No pulmonary embolism. 2. No acute findings in the abdomen or pelvis. CRITICAL RESULT: ?? No. COMMUNICATION: Per this written report. Preliminary report signed by Jose Juan Anderson MD on 05/28/2023 6:02 AM By electronically signing this report, I, the attending physician, attest that I have personally reviewed the images/data for the above examination(s) and agree with the final edited report. Drafted by Jose Juan Anderson MD on 05/28/2023 5:50 AM Final report signed by Rusty Hernnadez MD on 05/28/2023 6:21 AM Narrative 05/28/2023 6:21 AM EDT CLINICAL INDICATION: dizziness, near syncope, fevers TECHNIQUE: Imaging of the chest abdomen and pelvis was performed, from thoracic inlet through pubic symphysis, using spiral technique, following administration of IV contrast, Omnipaque 350, 100 mL according to the CT PE protocol and CT Abdomen/Pelvis protocol. Delayed (excretory phase) images were performed through the kidneys. Reformatted images in the coronal, sagittal, and oblique planes were generated from the axial data set to facilitate diagnostic accuracy. In addition, 3D images were created and reviewed. Total DLP (Dose-Length Product): 2653 mGy*cm. Please note: The reported value represents the total of one or more individual components during the CT acquisition on this date and at this time, and as such, the same value may appear in more than one CT report depending on the interpreting/reporting physicians. COMPARISON: None. FINDINGS: Chest: Aorta/Vessels: No pulmonary embolism. The brachiocephalic artery and left common carotid artery share a common origin. Pleural/Pericardial Space: No pneumothorax. No pleural effusions. No pericardial effusion. Lymph Nodes: No lymphadenopathy within the chest. 16 x 11 mm right axillary lymph node is not enlarged by CT size criteria (series 7 image 224). Lungs: Except for minimal dependent atelectasis, the lungs are clear. Mediastinum: Otherwise unremarkable. Chest Wall: No chest wall hematoma or contusion. Bones: No acute fracture within the chest. Abdomen: Liver/Gallbladder/Biliary System: The liver demonstrates homogeneous enhancement. Normal Gallbladder. No intra- or extra-hepatic biliary ductal dilatation. Spleen: The spleen enhances homogeneously. Pancreas: The pancreas enhances homogeneously. Adrenals: The adrenals are morphologically unremarkable. Kidneys: The kidneys demonstrate symmetric nephrogram and excretion. No renal or ureteral calculi. No hydronephrosis. Bilateral extrarenal pelvises. Small calcification in the region of the proximal right ureter is felt to be a vascular calcification and external to the ureter. Bowel/Mesentery: The small bowel loops are not dilated. The large bowel loops are not dilated. The appendix is visualized and normal. Vessels/Lymph Nodes: Minimal abdominal aortic atherosclerosis. No lymphadenopathy within the abdomen or pelvis. Several nonenlarged periaortic and inguinal lymph nodes. Fluid Survey: No free fluid in the abdomen. No free fluid in the pelvis. Pelvis: Hysterectomy. Phleboliths. Body Wall: Normal. Bones: No acute fracture within the abdomen or pelvis. Procedure Note Rusty Hernandez MD - 05/28/2023 CLINICAL INDICATION: dizziness, near syncope, fevers TECHNIQUE: Imaging of the chest abdomen and pelvis was performed, from thoracic inletthrough pubic symphysis, using spiral technique, following administrationof IV contrast, Omnipaque 350, 100 mL according to [address] PE protocol andCT Abdomen/Pelvis protocol. Delayed (excretory phase) images wereperformed through the kidneys. Reformatted images in the coronal,sagittal, and oblique planes were generated from the axial data set tofacilitate diagnostic accuracy. In addition, 3D images were created andreviewed. Total DLP (Dose-Length Product): 2653 mGy*cm. Please note: The reportedvalue represents the total of one or more individual components during theCT acquisition on this date and at this time, and as such, the same valuemay appear in more than one CT report depending on theinterpreting/reporting physicians. COMPARISON: None. FINDINGS: Chest: Aorta/Vessels: No pulmonary embolism. The brachiocephalic artery and leftcommon carotid artery share a common origin. Pleural/Pericardial Space: No pneumothorax. No pleural effusions. Nopericardial effusion. Lymph Nodes: No lymphadenopathy within the chest. 16 x 11 mm rightaxillary lymph node is not enlarged by CT size criteria (series 7 ). Lungs: Except for minimal dependent atelectasis, the lungs are clear. Mediastinum: Otherwise unremarkable. Chest Wall: No chest wall hematoma or contusion. Bones: No acute fracture within the chest. Abdomen: Liver/Gallbladder/Biliary System: The liver demonstrates homogeneousenhancement. Normal Gallbladder. No intra- or extra-hepatic biliary ductaldilatation. Spleen: The spleen enhances homogeneously. Pancreas: The pancreas enhances homogeneously. Adrenals: The adrenals are morphologically unremarkable. Kidneys: The kidneys demonstrate symmetric nephrogram and excretion. Norenal or ureteral calculi. No hydronephrosis. Bilateral extrarenalpelvises. Small calcification in the region of the proximal right ureteris felt to be a vascular calcification and external to the ureter. Bowel/Mesentery: The small bowel loops are not dilated. The large bowelloops are not dilated. The appendix is visualized and normal. Vessels/Lymph Nodes: Minimal abdominal aortic atherosclerosis. Nolymphadenopathy within the abdomen or pelvis. Several nonenlargedperiaortic and inguinal lymph nodes. Fluid Survey: No free fluid in the abdomen. No free fluid in the pelvis. Pelvis: Hysterectomy. Phleboliths. Body Wall: Normal. Bones: No acute fracture within the abdomen or pelvis. IMPRESSION: 1. No pulmonary embolism. 2. No acute findings in the abdomen or pelvis. CRITICAL RESULT: No. COMMUNICATION: Per this written report. Preliminary report signed by Jose Juan Anderson MD on 05/28/2023 6:02 AM By electronically signing this report, I, the attending physician, attestthat I have personally reviewed the images/data for the aboveexamination(s) and agree with the final edited report. Drafted by Jose Juan Anderson MD on 05/28/2023 5:50 AM Final report signed by Rusty Hernandez MD on 05/28/2023 6:21 AM Dimple Long DO IMG CT PROCEDURES Final Result * CT Angio Neck (05/28/2023 5:34 AM EDT) Anatomical Region Laterality Modality Carotid Artery Computed Tomogra phy Impressions 05/28/2023 6:12 AM EDT 1. No acute intracranial abnormality. 2. Normal CTA of the head and neck without evidence of vascular injury. CRITICAL RESULT: ?? No. COMMUNICATION: Per this written report.. Preliminary report signed by Russell Sharif DO on 05/28/2023 5:54 AM By electronically signing this report, I, the attending physician, attest that I have personally reviewed the images/data for the above examination(s) and agree with the final edited report. Drafted by Russell Sharif DO on 05/28/2023 5:50 AM Final report signed by Rusty Hernandez MD on 05/28/2023 6:12 AM Narrative 05/28/2023 6:12 AM EDT CLINICAL INDICATION: dizziness, near syncope TECHNIQUE: Routine contiguous axial CT images of the head were obtained without contrast administration. Contrast-enhanced CT angiogram of the head and neck was obtained after administration of intravenous iodinated contrast using 0.6 mm axial slice thickness with multiplanar reformations and maximum intensity projections. In addition, 3D images were created and reviewed. AI Utilization: Not applicable. Total DLP (Dose-Length Product): 2652.83 mGy.cm. Please note: The reported value represents the total of one or more individual components during the CT acquisition on this date and at this time, and as such, the same value may appear in more than one CT report depending on the interpreting/reporting physicians. COMPARISON: None. FINDINGS: CT Head without: No acute intracranial abnormality. No evidence of acute hemorrhage or ischemia. No mass, mass effect, or midline displacement of structures. Normal ventricular size and configuration. Patent basal cisterns. No displaced or depressed calvarial fractures. The visualized paranasal sinuses and mastoid air cells are clear. CTA Head: There is normal vascular anatomy. There is no evidence of vascular injury, specifically no arterial stenosis, occlusion, dissection, or pseudoaneurysm. The intracranial venous structures are also fairly well opacified and appear unremarkable. CTA Neck: There is normal vascular anatomy. There is no evidence of vascular injury, specifically no arterial stenosis, occlusion, dissection, or pseudoaneurysm. There is 0% stenosis of the ICA origins by NASCET criteria. Procedure Note Rusty Hernandez MD - 05/28/2023 CLINICAL INDICATION: dizziness, near syncope TECHNIQUE: Routine contiguous axial CT images of the head were obtained withoutcontrast administration. Contrast-enhanced CT angiogram of the head and neck was obtained afteradministration of intravenous iodinated contrast using 0.6 mm axial slicethickness with multiplanar reformations and maximum intensity projections.In addition, 3D images were created and reviewed. AI Utilization: Not applicable. Total DLP (Dose-Length Product): 2652.83 mGy.cm. Please note: The reportedvalue represents the total of one or more individual components during theCT acquisition on this date and at this time, and as such, the same valuemay appear in more than one CT report depending on theinterpreting/reporting physicians. COMPARISON: None. FINDINGS: CT Head without: No acute intracranial abnormality. No evidence of acute hemorrhage orischemia. No mass, mass effect, or midline displacement of structures.Normal ventricular size and configuration. Patent basal cisterns. No displaced or depressed calvarial fractures. The visualized paranasalsinuses and mastoid air cells are clear. CTA Head: There is normal vascular anatomy. There is no evidence of vascular injury,specifically no arterial stenosis, occlusion, dissection, orpseudoaneurysm. The intracranial venous structures are also fairly wellopacified and appear unremarkable. CTA Neck: There is normal vascular anatomy. There is no evidence of vascular injury,specifically no arterial stenosis, occlusion, dissection, orpseudoaneurysm. There is 0% stenosis of the ICA origins by NASCETcriteria. IMPRESSION: 1. No acute intracranial abnormality. 2. Normal CTA of the head and neck without evidence of vascular injury. CRITICAL RESULT: No. COMMUNICATION: Per this written report.. Preliminary report signed by Russell Sharif DO on 05/28/2023 5:54 AM By electronically signing this report, I, the attending physician, drew I have personally reviewed the images/data for the aboveexamination(s) and agree with the final edited report. Drafted by Russell Sharif DO on 05/28/2023 5:50 AM Final report signed by Rusty Hernandez MD on 05/28/2023 6:12 AM Dimple Long DO IMG CT PROCEDURES Final Result * CT Angio Head (05/28/2023 5:34 AM EDT) Anatomical Region Laterality Modality [place] Computed Tomogr aphy Impressions 05/28/2023 6:12 AM EDT 1. No acute intracranial abnormality. 2. Normal CTA of the head and neck without evidence of vascular injury. CRITICAL RESULT: ?? No. COMMUNICATION: Per this written report.. Preliminary report signed by Russell Sharif DO on 05/28/2023 5:54 AM By electronically signing this report, I, the attending physician, attest that I have personally reviewed the images/data for the above examination(s) and agree with the final edited report. Drafted by Russell Sharif DO on 05/28/2023 5:50 AM Final report signed by Rusty Hernandez MD on 05/28/2023 6:12 AM Narrative 05/28/2023 6:12 AM EDT CLINICAL INDICATION: dizziness, near syncope TECHNIQUE: Routine contiguous axial CT images of the head were obtained without contrast administration. Contrast-enhanced CT angiogram of the head and neck was obtained after administration of intravenous iodinated contrast using 0.6 mm axial slice thickness with multiplanar reformations and maximum intensity projections. In addition, 3D images were created and reviewed. AI Utilization: Not applicable. Total DLP (Dose-Length Product): 2652.83 mGy.cm. Please note: The reported value represents the total of one or more individual components during the CT acquisition on this date and at this time, and as such, the same value may appear in more than one CT report depending on the interpreting/reporting physicians. COMPARISON: None. FINDINGS: CT Head without: No acute intracranial abnormality. No evidence of acute hemorrhage or ischemia. No mass, mass effect, or midline displacement of structures. Normal ventricular size and configuration. Patent basal cisterns. No displaced or depressed calvarial fractures. The visualized paranasal sinuses and mastoid air cells are clear. CTA Head: There is normal vascular anatomy. There is no evidence of vascular injury, specifically no arterial stenosis, occlusion, dissection, or pseudoaneurysm. The intracranial venous structures are also fairly well opacified and appear unremarkable. CTA Neck: There is normal vascular anatomy. There is no evidence of vascular injury, specifically no arterial stenosis, occlusion, dissection, or pseudoaneurysm. There is 0% stenosis of the ICA origins by NASCET criteria. Procedure Note Rusty Hernandez MD - 05/28/2023 CLINICAL INDICATION: dizziness, near syncope TECHNIQUE: Routine contiguous axial CT images of the head were obtained withoutcontrast administration. Contrast-enhanced CT angiogram of the head and neck was obtained afteradministration of intravenous iodinated contrast using 0.6 mm axial slicethickness with multiplanar reformations and maximum intensity projections.In addition, 3D images were created and reviewed. AI Utilization: Not applicable. Total DLP (Dose-Length Product): 2652.83 mGy.cm. Please note: The reportedvalue represents the total of one or more individual components during theCT acquisition on this date and at this time, and as such, the same valuemay appear in more than one CT report depending on theinterpreting/reporting physicians. COMPARISON: None. FINDINGS: CT Head without: No acute intracranial abnormality. No evidence of acute hemorrhage orischemia. No mass, mass effect, or midline displacement of structures.Normal ventricular size and configuration. Patent basal cisterns. No displaced or depressed calvarial fractures. The visualized paranasalsinuses and mastoid air cells are clear. CTA Head: There is normal vascular anatomy. There is no evidence of vascular injury,specifically no arterial stenosis, occlusion, dissection, orpseudoaneurysm. The intracranial venous structures are also fairly wellopacified and appear unremarkable. CTA Neck: There is normal vascular anatomy. There is no evidence of vascular injury,specifically no arterial stenosis, occlusion, dissection, orpseudoaneurysm. There is 0% stenosis of the ICA origins by NASCETcriteria. IMPRESSION: 1. No acute intracranial abnormality. 2. Normal CTA of the head and neck without evidence of vascular injury. CRITICAL RESULT: No. COMMUNICATION: Per this written report.. Preliminary report signed by Russell Sharif DO on 05/28/2023 5:54 AM By electronically signing this report, I, the attending physician, attestthat I have personally reviewed the images/data for the aboveexamination(s) and agree with the final edited report. Drafted by Russell Sharif DO on 05/28/2023 5:50 AM Final report signed by Rusty Hernandez MD on 05/28/2023 6:12 AM Dimple Long DO IMG CT PROCEDURES Final Result * CT Head wo IV Contrast (05/28/2023 5:34 AM EDT) Anatomical Region Laterality Modality Head Computed Tomogra phy Impressions 05/28/2023 6:12 AM EDT 1. No acute intracranial abnormality. 2. Normal CTA of the head and neck without evidence of vascular injury. CRITICAL RESULT: ?? No. COMMUNICATION: Per this written report.. Preliminary report signed by Russell Sharif DO on 05/28/2023 5:54 AM By electronically signing this report, I, the attending physician, attest that I have personally reviewed the images/data for the above examination(s) and agree with the final edited report. Drafted by Russell Sharif DO on 05/28/2023 5:50 AM Final report signed by Rusty Hernandez MD on 05/28/2023 6:12 AM Narrative 05/28/2023 6:12 AM EDT CLINICAL INDICATION: dizziness, near syncope TECHNIQUE: Routine contiguous axial CT images of the head were obtained without contrast administration. Contrast-enhanced CT angiogram of the head and neck was obtained after administration of intravenous iodinated contrast using 0.6 mm axial slice thickness with multiplanar reformations and maximum intensity projections. In addition, 3D images were created and reviewed. AI Utilization: Not applicable. Total DLP (Dose-Length Product): 2652.83 mGy.cm. Please note: The reported value represents the total of one or more individual components during the CT acquisition on this date and at this time, and as such, the same value may appear in more than one CT report depending on the interpreting/reporting physicians. COMPARISON: None. FINDINGS: CT Head without: No acute intracranial abnormality. No evidence of acute hemorrhage or ischemia. No mass, mass effect, or midline displacement of structures. Normal ventricular size and configuration. Patent basal cisterns. No displaced or depressed calvarial fractures. The visualized paranasal sinuses and mastoid air cells are clear. CTA Head: There is normal vascular anatomy. There is no evidence of vascular injury, specifically no arterial stenosis, occlusion, dissection, or pseudoaneurysm. The intracranial venous structures are also fairly well opacified and appear unremarkable. CTA Neck: There is normal vascular anatomy. There is no evidence of vascular injury, specifically no arterial stenosis, occlusion, dissection, or pseudoaneurysm. There is 0% stenosis of the ICA origins by NASCET criteria. Procedure Note Rusty Hernandez MD - 05/28/2023 CLINICAL INDICATION: dizziness, near syncope TECHNIQUE: Routine contiguous axial CT images of the head were obtained withoutcontrast administration. Contrast-enhanced CT angiogram of the head and neck was obtained afteradministration of intravenous iodinated contrast using 0.6 mm axial slicethickness with multiplanar reformations and maximum intensity projections.In addition, 3D images were created and reviewed. AI Utilization: Not applicable. Total DLP (Dose-Length Product): 2652.83 mGy.cm. Please note: The reportedvalue represents the total of one or more individual components during theCT acquisition on this date and at this time, and as such, the same valuemay appear in more than one CT report depending on theinterpreting/reporting physicians. COMPARISON: None. FINDINGS: CT Head without: No acute intracranial abnormality. No evidence of acute hemorrhage orischemia. No mass, mass effect, or midline displacement of structures.Normal ventricular size and configuration. Patent basal cisterns. No displaced or depressed calvarial fractures. The visualized paranasalsinuses and mastoid air cells are clear. CTA Head: There is normal vascular anatomy. There is no evidence of vascular injury,specifically no arterial stenosis, occlusion, dissection, orpseudoaneurysm. The intracranial venous structures are also fairly wellopacified and appear unremarkable. CTA Neck: There is normal vascular anatomy. There is no evidence of vascular injury,specifically no arterial stenosis, occlusion, dissection, orpseudoaneurysm. There is 0% stenosis of the ICA origins by NASCETcriteria. IMPRESSION: 1. No acute intracranial abnormality. 2. Normal CTA of the head and neck without evidence of vascular injury. CRITICAL RESULT: No. COMMUNICATION: Per this written report.. Preliminary report signed by Russell Sharif DO on 05/28/2023 5:54 AM By electronically signing this report, I, the attending physician, attestthat I have personally reviewed the images/data for the aboveexamination(s) and agree with the final edited report. Drafted by Russell Sharif DO on 05/28/2023 5:50 AM Final report signed by Rusty Hernandez MD on 05/28/2023 6:12 AM Dimple Long DO IM CT PROCEDURES Final Result * Blood Culture (Aerobic/Anaerobet Set) (05/28/2023 4:42 AM EDT) Culture No growth at day 5 WOLF 06/02/2023 7:01 AM EDT [facility] Blood Structure of part of left upper limb / Unknown Venipuncture / Unknown 05/28/2023 4:42 AM EDT 05/28/2023 6:56 AM EDT Dimple Long DO LAB MICROBIOLOGY - GENERAL ORD ERABLES Final Result Performing Organization Address [facility] de Phone Number [facility] [address] [place] [address] * Blood Culture (Aerobic/Anaerobet Set) (05/28/2023 4:42 AM EDT) Culture No growth at day 5 WOLF 06/02/2023 7:01 AM EDT [facility] Blood Structure of part of right upper limb / Unknown Venipuncture / Unknown 05/28/2023 4:42 AM EDT 05/28/2023 6:57 AM EDT Dimple Long DO LAB MICROBIOLOGY - GENERAL ORD ERABLES Final Result Performing Organization Address [facility] de Phone Number [facility] [address] [place] [address] * XR Chest 2 Views (05/28/2023 4:00 AM EDT) Anatomical Region Laterality Modality Chest Computed Radiogr aphy Impressions 05/28/2023 4:33 AM EDT Bilateral infrahilar interstitial thickening which could be secondary to infection or inflammation. CRITICAL RESULT: ?? No. COMMUNICATION: Per this written report. Preliminary report signed by Russell Sharif DO on 05/28/2023 4:04 AM By electronically signing this report, I, the attending physician, attest that I have personally reviewed the images/data for the above examination(s) and agree with the final edited report. Drafted by Russell Sharif DO on 05/28/2023 4:03 AM Final report signed by Rusty Hernandez MD on 05/28/2023 4:33 AM Narrative 05/28/2023 4:33 AM EDT CLINICAL INDICATION: infectious workup, subjective fever at home TECHNIQUE: XR CHEST 2 VIEWS COMPARISON: None. FINDINGS: Mild bilateral infrahilar interstitial thickening. No focal consolidation. Heart and mediastinal contours are within normal limits. No pneumothorax. ??No pleural effusion. Bony structures are unremarkable. Procedure Note Rusty Hernandez MD - 05/28/2023 CLINICAL INDICATION: infectious workup, subjective fever at home TECHNIQUE: XR CHEST 2 VIEWS COMPARISON: None. FINDINGS: Mild bilateral infrahilar interstitial thickening. No focal consolidation.Heart and mediastinal contours are within normal limits. No pneumothorax.No pleural effusion. Bony structures are unremarkable. IMPRESSION: Bilateral infrahilar interstitial thickening which could be secondary toinfection or inflammation. CRITICAL RESULT: No. COMMUNICATION: Per this written report. Preliminary report signed by Russell Sharif DO on 05/28/2023 4:04 AM By electronically signing this report, I, the attending physician, attestthat I have personally reviewed the images/data for the aboveexamination(s) and agree with the final edited report. Drafted by Russell Sharif DO on 05/28/2023 4:03 AM Final report signed by Rusty Hernandez MD on 05/28/2023 4:33 AM Dimple Long DO IMG XR PROCEDURES Final Result * Urinalysis Microscopic Examination (05/28/2023 3:28 AM EDT) Urine Urine specimen obtained by clean catch procedure / Unknown Non-blood Collection / Unknown 05/28/2023 3:28 AM EDT 05/28/2023 3:54 AM EDT us Dimple Long DO LAB URINE ORDERABLES Final Res ult [facility] [address] [place] [id number] * (ABNORMAL) Urinalysis with reflex microscopic - clean catch (05/28/2023 3:28 AM EDT) Color, Urine Yellow LAB URINALYSIS - AUTOMATED METHOD 05/28/2023 4:23 AM EDT [facility] Clarity, Urine Clear LAB URINALYSIS - AUTOMATED METHOD 05/28/2023 4:23 AM EDT [facility] Spec [place], Urine 1.010 <=1.005 to >=1.030 LAB URINALYSIS - AUTOMATED METHOD 05/28/2023 4:23 AM [facility] pH, Urine 6.5 4.5 to 8 LAB URINALYSIS - AUTOMATED METHOD 05/28/2023 4:23 AM [facility] Protein, Urine Negative Negative mg/dL LAB URINALYSIS - AUTOMATED METHOD 05/28/2023 4:23 AM [facility] Glucose, Urine Negative Negative mg/dL LAB URINALYSIS - AUTOMATED METHOD 05/28/2023 4:23 AM [facility] Ketones, Urine Trace(A) Negative mg/dL LAB URINALYSIS - AUTOMATED METHOD 05/28/2023 4:23 AM [facility] Blood, Urine Negative Negative LAB URINALYSIS - AUTOMATED METHOD 05/28/2023 4:23 AM [facility] Bilirubin, Urine Negative Negative LAB URINALYSIS - AUTOMATED METHOD 05/28/2023 4:23 AM [facility] Urobilinogen, Urine 1.0 0.2 to 1.0 mg/dL LAB URINALYSIS - AUTOMATED METHOD 05/28/2023 4:23 AM [facility] Leukocytes, Urine Trace(A) Negative LAB URINALYSIS - AUTOMATED METHOD 05/28/2023 4:23 AM [facility] Nitrite, Urine Negative Negative LAB URINALYSIS - AUTOMATED METHOD 05/28/2023 4:23 AM [facility] RBC, Urine 1 0 to 3 /HPF LAB URINALYSIS - AUTOMATED METHOD 05/28/2023 4:23 AM [facility] Comment:This result was prev iously suppressed from the chart. WBC, Urine 0 - 5 0 to 5 /HPF LAB URINALYSIS - AUTOMATED METHOD 05/28/2023 4:23 AM [facility] Comment:This result was prev iously suppressed from the chart. Squamous Epithelial Cells 0 - 2 0 to 5 /HPF LAB URINALYSIS - AUTOMATED METHOD 05/28/2023 4:23 AM [facility] Comment:This result was prev iously suppressed from the chart. Hyaline Casts 0 - 2 0 to 5 /LPF LAB URINALYSIS - AUTOMATED METHOD 05/28/2023 4:23 AM [facility] Comment:This result was prev iously suppressed from the chart. Bacteria, Urine Negative Negative LAB URINALYSIS - AUTOMATED METHOD 05/28/2023 4:23 AM EDT [facility] Comment:This result was prev iously suppressed from the chart. Urine Urine specimen obtained by clean catch procedure / Unknown Non-blood Collection / Unknown 05/28/2023 3:28 AM EDT 05/28/2023 3:54 AM EDT us Dimple N Long DO LAB URINE ORDERABLES Final Res ult Performing Organization Address [facility] de Phone Number [facility] [address] [place] [address] * ED HIV 1/2 Antibody/Antigen Screen w/Reflex to HIV 1/2 Differentiation (05/28/2023 2:53 AM EDT) HIV 1 & 2 Antibody/Antigen Screen Non Reactive Non Reactive 05/28/2023 3:56 AM EDT [facility] Comment:Screening for HIV 1 & 2 antibodies, and P24 antigen is NONREACTIVE. No confirmatory testing is required. Blood Venous blood specimen / Unknown Venipuncture / Unknown 05/28/2023 2:53 AM EDT 05/28/2023 3:15 AM EDT us Dimple N Long DO LAB BLOOD ORDERABLES Final Res ult Performing Organization Address [facility] de Phone Number [facility] [address] [place] [address] * Hepatitis C Antibody - ED (05/28/2023 2:53 AM EDT) Hepatitis C Antibody Negative Negative 05/28/2023 3:58 AM EDT [facility] Blood Venous blood specimen / Unknown Venipuncture / Unknown 05/28/2023 2:53 AM EDT 05/28/2023 3:16 AM EDT Dimple N Long DO LAB BLOOD ORDERABLES Final Res ult Performing Organization Address [facility] de Phone Number [facility] [address] [place] [address] * Lactic acid, venous (05/28/2023 2:53 AM EDT) Lactate, Venous, Whole Blood 0.7 0.5 - 2.2 mmol/L LAB HEMATOLOGY METHOD 05/28/2023 3:12 AM EDT [facility] Blood Venous blood specimen / Unknown Venipuncture / Unknown 05/28/2023 2:53 AM EDT 05/28/2023 3:10 AM EDT us Dimple Long DO LAB BLOOD ORDERABLES Final Res ult Performing Organization Address City/State/[facility] Co de Phone Number [facility] [address] [place] [address] * (ABNORMAL) CMP (05/28/2023 2:53 AM EDT) Glucose, Plasma 92 74 - 99 mg/dL 05/28/2023 3:45 AM EDT [facility] BUN, Plasma 3(L) 7 - 21 mg/dL 05/28/2023 3:45 AM EDT [facility] Creatinine, Plasma 0.63 0.60 - 1.10 mg/dL 05/28/2023 3:45 AM EDT [facility] BUN/Creatinine Ratio 5 05/28/2023 3:45 AM EDT [facility] Sodium, Plasma 135(L) 136 - 145 mmol/L 05/28/2023 3:45 AM EDT [facility] Potassium, Plasma 3.6(L) 3.7 - 4.8 mmol/L 05/28/2023 3:45 AM EDT [facility] Chloride, Plasma 98 97 - 107 mmol/L 05/28/2023 3:45 AM EDT [facility] CO2, Plasma 25 22 - 29 mmol/L 05/28/2023 3:45 AM EDT [facility] Anion Gap 12 6 - 16 mmol/L 05/28/2023 3:45 AM EDT [facility] Total Calcium, Plasma 8.6(L) 8.9 - 10.2 mg/dL 05/28/2023 3:45 AM EDT [facility] Total Protein 6.9 6.3 - 7.9 g/dL 05/28/2023 3:45 AM EDT [facility] Albumin, Plasma 3.1(L) 3.5 - 5.2 g/dL 05/28/2023 3:45 AM EDT [facility] AST, Plasma 18 10 - 35 U/L 05/28/2023 3:45 AM EDT [facility] Comment:Hemolyzed, result ma y be falsely increased. ALT, Plasma 13 10 - 35 U/L 05/28/2023 3:45 AM EDT [facility] Alkaline Phosphatase, Plasma 93 35 - 104 U/L 05/28/2023 3:45 AM EDT [facility] Total Bilirubin, Plasma 0.3 0.2 - 1.1 mg/dL 05/28/2023 3:45 AM EDT [facility] eGFRcr 106.9 mL/min/1.7 3m*2 05/28/2023 3:45 AM EDT [facility] Comment:Reported eGFRcr in m L/min/1.73m2 is based the CKD-EPI 2020 equation that does not use a race coefficient. Blood Venous blood specimen / Unknown Venipuncture / Unknown 05/28/2023 2:53 AM EDT 05/28/2023 3:15 AM EDT us Dimple Long DO LAB BLOOD ORDERABLES Final Res ult [facility] [address] [place] [address] * (ABNORMAL) CBC and Differential (05/28/2023 2:53 AM EDT) WBC Count 8.30 3.70 - 10.30 10*3/uL LAB HEMATOLOGY METHOD 05/28/2023 3:14 AM EDT [facility] RBC Count 3.83(L) 3.90 - 5.20 10*6/uL LAB HEMATOLOGY METHOD 05/28/2023 3:14 AM EDT [facility] HGB 10.3(L) 11.2 - 15.7 g/dL LAB HEMATOLOGY METHOD 05/28/2023 3:14 AM EDT [facility] HCT 32.0(L) 34.0 - 45.0 % LAB HEMATOLOGY METHOD 05/28/2023 3:14 AM EDT [facility] Platelet Count 554(H) 155 - 369 10*3/uL LAB HEMATOLOGY METHOD 05/28/2023 3:14 AM EDT [facility] MCV 84 79 - 98 fL LAB HEMATOLOGY METHOD 05/28/2023 3:14 AM EDT [facility] MCH 26.9 26.0 - 32.0 pg LAB HEMATOLOGY METHOD 05/28/2023 3:14 AM EDT [facility] MCHC 32.2 30.7 - 35.5 g/dL LAB HEMATOLOGY METHOD 05/28/2023 3:14 AM EDT [facility] RDW 14.2 11.5 - 14.5 % LAB HEMATOLOGY METHOD 05/28/2023 3:14 AM EDT [facility] MPV 10.3 8.8 - 12.5 fL LAB HEMATOLOGY METHOD 05/28/2023 3:14 AM EDT [facility] nRBC 0.0 <=0.0 per 100 WBCs LAB HEMATOLOGY METHOD 05/28/2023 3:14 AM EDT [facility] Differential Type Automated LAB HEMATOLOGY METHOD 05/28/2023 3:14 AM EDT [facility] Neutrophils % 58.0 % LAB HEMATOLOGY METHOD 05/28/2023 3:14 AM EDT [facility] Lymphocytes % 24.0 % LAB HEMATOLOGY METHOD 05/28/2023 3:14 AM EDT [facility] Monocytes % 15.0 % LAB HEMATOLOGY METHOD 05/28/2023 3:14 AM EDT [facility] Eosinophils % 2.0 % LAB HEMATOLOGY METHOD 05/28/2023 3:14 AM EDT [facility] Basophils % 1.0 % LAB HEMATOLOGY METHOD 05/28/2023 3:14 AM EDT [facility] Immature Granulocytes % 0.0 % LAB HEMATOLOGY METHOD 05/28/2023 3:14 AM EDT [facility] Neutrophils Absolute 4.82 1.60 - 6.10 10*3/uL LAB HEMATOLOGY METHOD 05/28/2023 3:14 AM EDT [facility] Lymphocytes Absolute 1.95 1.20 - 3.90 10*3/uL LAB HEMATOLOGY METHOD 05/28/2023 3:14 AM EDT [facility] Monocytes Absolute 1.24(H) 0.30 - 0.90 10*3/uL LAB HEMATOLOGY METHOD 05/28/2023 3:14 AM EDT [facility] Eosinophils Absolute 0.19 0.00 - 0.50 10*3/uL LAB HEMATOLOGY METHOD 05/28/2023 3:14 AM EDT [facility] Basophils Absolute 0.07 0.00 - 0.10 10*3/uL LAB HEMATOLOGY METHOD 05/28/2023 3:14 AM EDT [facility] Immature Granulocytes Absolute 0.03 0.00 - 0.06 10*3/uL LAB HEMATOLOGY METHOD 05/28/2023 3:14 AM EDT [facility] Blood Venous blood specimen / Unknown Venipuncture / Unknown 05/28/2023 2:53 AM EDT 05/28/2023 3:11 AM EDT Narrative [facility] - 05/28/2023 3:14 AM EDT Therapeutic decision making should be based on absolute values, rather than percentages. Dimple N Long DO LAB BLOOD ORDERABLES Final Res ult Performing Organization Address City/[facility]/ZIP Co de Phone Number [facility] [address] [place] [address] * ECG Adult (05/28/2023 2:52 AM EDT) EKG DIAGNOSIS CLASS Normal MUSE ECG Ventricular Rate 88 BPM MUSE ECG Atrial Rate 88 BPM MUSE ECG VA Interval 134 ms MUSE ECG QRSD Interval 86 ms MUSE ECG QT Interval 382 ms MUSE ECG QTC Interval 462 ms MUSE ECG P [place] -15 degrees MUSE ECG R [place] 31 degrees MUSE ECG T Wave [place] 7 degrees MUSE ECG Diagnosis Normal sinus rhythm MUSE ECG Diagnosis Normal ECG MUSE ECG Diagnosis Confirmed by Jeevan Su ([id number]) on 05/28/2023 7:38:15 AM MUSE ECG 05/28/2023 2:52 AM EDT 05/28/2023 7:38 AM EDT Dimple N Long DO ECG ORDERABLES Final Result MUSE ECG documented in this encounter Visit Diagnoses Diagnosis Nausea and vomiting, unspecified vomiting type- Primary Dizziness Dizziness and giddiness Generalized weakness documented in this encounter Administered Medications Inactive Administered Medications - up to 3 most recent administrations Medication Order MAR Action Action Date Dose Rate Site acetaminophen (Tylenol) tablet 650 mg 650 mg, Oral, Once, 1 dose, On Fri05/28/23 at 0255, STAT Given 05/28/2023 2:55 AM EDT 650 mg iohexol (OMNIPaque) 350 MG/ML injection 100 mL 100 mL, Intravenous, Once in imaging, 1 dose, Starting on Fri05/28/23 at 0519, Until Fri05/28/23 at 0519, Routine, Imaging Protocol Orders Given 05/28/2023 5:19 AM EDT 100 mL ketorolac (Toradol) injection 15 mg 15 mg, Intravenous, Once, 1 dose, On Fri05/28/23 at 0335, STAT Given 05/28/2023 3:40 AM EDT 15 mg ondansetron (Zofran) injection 4 mg 4 mg, Intravenous, Once, 1 dose, On Fri05/28/23 at 0255, STAT Given 05/28/2023 2:55 AM EDT 4 mg potassium chloride IVPB 10 mEq 10 mEq, Intravenous, Every 1 hour, 2 doses, First dose on Fri05/28/23 at 0350, Last dose on Fri05/28/23 at 0450, RoutineIndications:Hypokalemi a New Bag 05/28/2023 5:16 AM EDT 10 mEq 100 mL/hr New Bag 05/28/2023 4:12 AM EDT 10 mEq 100 mL/hr sodium chloride 0.9 % infusion 1,000 mL 1,000 mL, Intravenous, Once, 1 dose, On Fri05/28/23 at 0255, STAT New Bag 05/28/2023 2:56 AM EDT 1,000 mL documented in this encounter Active and Recently Administered Medications Times are shown in EDT. Scheduled Medication Order 05/26/2023 05/27/2023 05/28/2023 acetaminophen (Tylenol) tablet 650 mg (COMPLETED) 650 mg, Oral, Once, 1 dose, On Fri05/28/23 at 0255, STAT 0255 (Given - Provid er: Rhina Lacey, RN) iohexol (OMNIPaque) 350 MG/ML injection 100 mL (COMPLETED) 100 mL, Intravenous, Once in imaging, 1 dose, Starting on Fri05/28/23 at 0519, Until Fri05/28/23 at 0519, Routine, Imaging Protocol Orders 0519 (Given - Provid er: Dotty Esquivel) ketorolac (Toradol) injection 15 mg (COMPLETED) 15 mg, Intravenous, Once, 1 dose, On Fri05/28/23 at 0335, STAT 0340 (Given - Provid er: Rhina Lacey, RN) ondansetron (Zofran) injection 4 mg (COMPLETED) 4 mg, Intravenous, Once, 1 dose, On Fri05/28/23 at 0255, STAT 0255 (Given - Provid er: hRina Lacey, ROLANDO) potassium chloride IVPB 10 mEq (COMPLETED) 10 mEq, Intravenous, Every 1 hour, 2 doses, First dose on Fri05/28/23 at 0350, Last dose on Fri05/28/23 at 0450, Routine 0412 (New Bag - Prov ider: Rhina Lacey RN)0515 (Stopped - Provider: Rhina Lacey, ROLANDO)0516 (New Bag - Provider: Rhina Lacey, ROLANDO)0646 (Stopped - Provider: Rhina Lacey, ROLANDO) sodium chloride 0.9 % infusion 1,000 mL (COMPLETED) 1,000 mL, Intravenous, Once, 1 dose, On Fri05/28/23 at 0255, STAT 0256 (New Bag - Prov ider: Rhina Lacey, ROLANDO) documented in this encounter Care Teams Linux Solaris Administrator Relationship Specialty Start Date End Date Julisa Kerr MD [address] [place] [address] PCP - General 02/09/21 documented as of this encounter
--- OUTSIDE RECORDS SUMMARY | 2024-08-22 21:54 | XMS_ITS | Encounter Summary ---
Author Organization [facility] Address [address] [place] [address] Care Team Providers Care Supervisor Chemical Name Role Phone Julisa Kerr MD Primary Care Provider [phone] Reason for Visit * Auth/Cert (Routine) Specialty Diagnoses / Procedures Referred By Anatoliy t Referred To Contact Diagnoses Primary osteoarthritis of right knee Primary osteoarthritis of right knee [M17.11] Procedures CA ARTHRP KNE CONDYLE&PLATU MEDIAL&LAT COMPARTMENTS Arthroplasty Total Knee Referral ID Status Reason Start Date Expiration Date Visits Re quested Visits Authorized [id number] 1 1 Encounter Details Date Type Department Care Team (Latest Contact Info) Description 08/22/2023 10:20 AM EST - 08/22/2023 5:[address] [facility] Hospital [facility] [address] [place] [address] Jordy Clifton MD [address] [place] [address] [place] [id number] Primary osteoarthritis of right knee (Primary Dx) Discharge Disposition: Home or Self [...] Sign Reading Time Taken Comments Blood Pressure 113/82 08/22/2023 4:44 PM EST Pulse 91 08/22/2023 4:44 PM EST Temperature 36.2 ??C (97.1 ??F) 08/22/2023 4:15 PM ES T Respiratory Rate 16 08/22/2023 4:44 PM EST Oxygen Saturation 96% 08/22/2023 4:44 PM EST Inhaled Oxygen Concentration - - Weight 58.3 kg (128 lb 8.5 oz) 08/22/2023 11:16 AM EST Height 157.5 cm (5' 2 ) 08/22/2023 11:16 AM EST Body Mass Index 23.51 08/22/2023 11:16 AM EST documented in this encounter Discharge Instructions * Discharge Instructions* Jordy Clifton MD - 08/22/2023 12:15 PM EST Jordy Clifton MD Post Operative Instructions: Joint Replacement [facility] [address] [place] [address] [phone] [facility] [phone] [place] Procedure / Diagnosis: Total knee Pain / [...] risk of thermal injury. X Please call [phone] if you are having pain that is [...] days, unless otherwise directed. X Please call [phone]([phone]) or ([phone]) to make an appointment X [...] Contact the Physical Therapy department, ideally through [facility], to work with your individual therapist [...] for 10 days. 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 Bed Mobility Supine to Sit: SBA;HOB [...] R Hip Flexion: 3+/5 Complete ROM Against Homer/Slight Resistance R Knee Flexion: 3+/5 Complete ROM Against Homer/Slight Resistance R Knee Extension: 3+/5 Complete ROM Against Homer/Slight Resistance R Ankle Dorsiflexion: 4/5 Complete ROM Against Homer/Moderate Resistance R Ankle Plantarflexion: 4/5 Part Moves Through Complete ROM Against Homer/Moderate Resistance LLE Assessment LLE Assessment: ROM and [...] assessment of functional outcome High Therapist: Porsche Wooetn PT, DPT Date: 08/22/2023 documented in this encounter [...] 08/22/2023 2:34 PM EST Jordy Clifton MD [address] [place] [address] [phone] OPERATIVE REPORT Yuliet Newosme 08/22/2023 PRE-OP DIAGNOSIS: Primary osteoarthritis of right knee [M17.11] POST-OP DIAGNOSIS: same PROCEDURE: Procedure(s): RIGHT TOTAL KNEE ARTHROPLASTY (Right) SURGEON: Surgeon(s) and Role: * Jordy Clifton MD - Primary Fish Dressing Machine Feeder: None ANESTHESIA: General and Field Block Nerve [...] cutting block, rotating in relation to the [place] anatomy. Once I had it in place, [...] SCORES Routine 08/10/2024 8: 46 AM EST CA ARTHRP KNE CONDYLE&PLATU MEDIAL&LAT COMPARTMENTS 08/22/2023 1:05 PM EST Primary osteoarthritis of right knee documented in this encounter Results * MSK OUTCOME SCORES (08/10/2024 8:46 AM EST) 08/10/2024 8:46 AM EST External Provider RESULTABLE ONLY ORDERS Edited Result - Final Performing Organization Address City/State/[facility] Co de Phone Number [facility] [address] documented in this encounter Visit Diagnoses [...] 1:49 PM EST Right Knee sodium chloride 0.9% IV solution 1,000 mL, [...] PO documented in this encounter Care Teams Supervisor Chemical Relationship Specialty Start Date End Date Julisa Kerr MD [address] [place] [address] PCP - General Family Medicine 08/07/23 documented as of this encounter
--- OUTSIDE RECORDS SUMMARY | 2024-08-22 21:54 | XMS_ITS | Encounter Summary ---
Author Organization [place] [address] Care Team Providers Care Waxing Machine Operator Name Role Phone Unavailable Primary Care Provider Unavailabl e Encounter Details Date Type Department Care Team (Late st Contact Info) Description 04/11/1991 1:38 AM EDT - 04/13/1991 2:45 PM EDT Hospital Encounter H[facility] 1C Jaspreet Forbes [place] [id number] Social History Tobacco Use Types Packs/Day Years [...] Description 08/31/2024 8:30 AM EST [address]ment [address] [place] [place] [address] 10/25/2024 10:45 AM EST Office Visit [facility] [address] [place] [address] Jessica Cortes MD [address] [facility] [address] [place] [address] 01/25/2025 9:00 AM EDT Appointment [place] [address] [place] [address] 05/09/2025 11:00 AM EDT Appointment [facility] [address] [place] [address] 05/09/2025 11:15 AM EDT Appointment [address] [place] [address] Susana Garay MD [address] [place] [address] DR [place] [phone] documented as of this encounter Visit Diagnoses Not on filedocumented in this encounter
--- OUTSIDE RECORDS SUMMARY | 2024-08-22 21:54 | XMS_ITS | Encounter Summary ---
Author Organization [facility] Address [address] [place] [address] Care Team Providers Care Steam Locomotive Firer/Fireman Name Role Phone Julisa Kerr MD Primary Care Provider [phone] Reason for Visit * Auth/Cert (Routine) Specialty Diagnoses / Procedures Referred By Contac t Referred To Contact Diagnoses Primary osteoarthritis of left hip Primary osteoarthritis of left hip [M16.12] Procedures AK ARTHRP ACETBLR/PROX FEM PROSTC AGRFT/ALGRFT Arthroplasty Total Hip Anterior Approach Referral ID Status Reason Start Date Expiration Date Visits Re quested Visits Authorized [id number] 1 1 Encounter Details Date Type Department Care Team (Late st Contact Info) Description 01/30/2024 1:53 PM EDT Anesthesia Event [facility] [address] [place] [address] Jenniffer Weiss MD [address] [facility] [place] [address] Moe Centeno MD [address] [facility]. Level [place] [address] Anesthesia Record Procedure Summary Procedure Name Responsible Anesthesiologist Anesthesia Start Time Anesthesia Stop Time LEFT TOTAL HIP ARTHROPLASTY (Left) Jenniffer Weiss MD 01/30/24 1353 05/03/24 1606 Events Date Time Event Comment 01/30/2024 1038 1353 An Start 1353 An Start Data 1357 An Induction 1359 An Intubation 1421 Procedure Start Surgical Inc ision Time 1552 Procedure End 1553 Quick Note LMA removed 1606 An End Meds Name Total fentaNYL 50 mcg/mL 200 mcg propofoL 10 mg/mL 200 mg lidocaine (PF) 2 % 60 mg ondansetron (PF) 4 mg/2 mL 4 mg ceFAZolin (Ancef) syringe for injection 2 g 20 mL 2,000 mg glycopyrrolate 0.2 mg sodium chloride 0.9% IV solution 1,300 m L LR 0 mL * Agents Name O2 N2O Air Sevoflurane (exp) * Blood No blood administrations on file. Lines, Drains, and Airways Type Details Placement Removal Peripheral IV Size: 20 G; Length: 1 inch; Orientation: Right, Dorsal; Location: Hand; Inserted by: AF; Attempts: 1; Removal reason: Therapy completed 01/30/24 1230 by Beatriz Grey RN 01/30/24 1757 by Dalton Thomas, auto inspection specialist Incision Nursing Assessment (LDA) 01/30/24; 1423; Surgical - During this Admission; Hip; Left; 02/03/24; 1815 01/30/24 1423 by Aleyda Tyler RN 02/03/24 1815 by Autodiscontinue, Discharge documented in this encounter Social History Tobacco Use Types Packs/Day Years [...] on file documented as of this encounter OR Notes * Anesthesia Postprocedure Evaluation - Linda Umanzor CRNA - 01/30/2024 4:06 PM EDT Post Anesthesia Evaluation Final Anesthesia Type:general Date of Surgery: 01/30/2024 Surgeon(s): Jordy Clifton MD Debra K Jerod is stable with no current apparent anesthetic complications. Vitals reviewed and accepted. Vitals: Vitals Value Taken Time Pulse 83 01/30/24 1552 Temp 36.9 ??C (98.4 ??F) 01/30/24 1550 Resp 17 01/30/24 1556 SpO2 99 % 01/30/24 1556 NIBP 123/67 01/30/24 1552 ART MAP NIBP (mean) 85 01/30/24 1552 [x] Cardiorespiratory status is acceptable. [x] Pt responding verbally and following commands to acceptable level. [x] Temperature acceptable [x] Hydration status is acceptable [x] Patient's pain is being adequately managed [x] Patient is nausea free MIPS for Anesthesia Quality Measures: #404 Anesthesiology Smoking Abstinence The Patient is a current smoker No, Stop Here(XX404) #424 Perioperative Temperature Management Anesthesia start to Anesthesia end time was 60 minutes or longer. Yes, Anesthesia start to Anesthesia end time was 60 minutes or longer. (4255F) Yes, Anesthesia administered was General (Inhalational, or TIVA) or Neuraxial block (X0424) Yes, At least one body temperature greater than 95.8??F/35.5??C achieved within the 30 mins immediately prior to or the 15 mins immediately following anesthesia end time (G9771) #477 Multimodal Pain Management The case is Emergent No Yes, - Patient was administered multimodal pain management (two or more drugs and/or interventions excluding systemic opioids) in the perioperative period; occurring at some time between 6 hours prior to anesthesia start time until discharged from PACU. (G2148) #430 ADULT Prevention of Post-Operative Nausea & Vomiting (PONV) - Combination Therapy (18 years and older) Patient received an inhalational anesthetic Patient received an inhalational anesthetic (4554F) No,Stop Here (X0430) #463 PEDIATRIC Prevention of Post-Operative Vomiting (POV) - Combination Therapy Patient aged 3-17 years received an inhalational anesthetic? No, Stop Here(XX463) Highest Temperature Near Anesthesia End Fahrenheit * Anesthesia Preprocedure Evaluation - Moe Centeno MD - 01/29/2024 8:54 PM EDT Procedure Information Case: [id number] Date/Time: 01/30/24 1345 Procedure: LEFT TOTAL HIP ARTHROPLASTY (Left) - LEFT TOTAL HIP ARTHROPLASTY Anesthesia type: General Location: [facility] Surgeons: Jordy Clifton MD Planned Anesthesia type: general Risks, benefits, and alternatives discussed with patient. Post-Operative pain management options pertinent to the planned surgery were discussed with patientas per surgeon???s request. Patient anesthetic care and plan discussed with anesthesiologist. No history of anesthetic complications patient appropriate for plan no family hx of anesthetic complications NPO status reinforced Aspiration risk assessed. Mallampati: II ASA 2 Teeth conditions: normal Rheumatoid Arthritis - 2022 Asthma - allergy induced? (Discussed anesthesia risks/benefits including risk of dental, vocal cord, posterior pharynx, alongwith neck and jaw trauma, intraoperative awareness, reaction to medications, sore throat, headache,postoperative nausea and vomiting, and possible life-threatening events. The patient voiced understanding and accepts risks.) Plan- G LMA, multimodal analgesia HUAN Score 08/19/2023 0850 08/22/2023 1116 01/27/2024 1603 Diagnosed with Sleep Apnea?: No No No Total HUAN Score: -- 2 -- MIPS for Anesthesia Preop Quality Measures: Measure #404: Anesthesiology Smoking Abstinence: N/A - Patient is a nonsmoker Measure #430 Prevention of Postop Nausea and Vomiting-combination therapy (Pts 18 yrs or older, receiving inhalational anesthetic, with 3 or more risk factors) This patient's risk factors: Female gender, Non-smoker, and Intended use of opioids for analgesia intraop, in PACU, or after D/Cfrom PACU Measure #477 Multimodal Pain Management (for patients 18 yrs old and older) The plan is to administer multimodal pain management consisting of: Acetaminophen, Steroids (decadron), and Local anesthetics (injected by surgeon or systemic) documented in this encounter Miscellaneous Notes * Anesthesia PACU Handoff Note - Linda Umanzor CRNA - 01/30/2024 4:06 PM EDT Transfer of Care Anesthesia Handoff Note Date of Surgery: 01/30/2024 Scheduled Procedure(s): LEFT TOTAL HIP ARTHROPLASTY Patient: Yuliet Newsome Anesthesiologist: Jenniffer Weiss MD; Moe Centeno MD Complications: Recovery Location: PACU Airway: Spontaneous Pain Assessment: Managed Level of Consciousness: Arousable Intraoperative anesthetic care and concerns, pertinent medical history, medications, allergies, surgical/procedure course and plan for post procedure period discussed with receiving PACU or ICU team.Opportunity for questions and understanding of report acknowledged. Post-procedure handoff checklist complete. Past Medical History: Diagnosis Date Asthma allergy induced Back problem DVT (deep venous thrombosis) ([facility]) 05/2023 Mobility impaired using a cane Neck problem pinched nerve Rheumatoid arthritis ([facility]) Allergies as of 01/22/2024 - Reviewed 08/22/2023 Allergen Reaction Noted Abatacept Swelling 08/19/2023 Cefdinir 08/19/2023 Celebrex [celecoxib] Itching 08/19/2023 Enbrel [etanercept] 08/19/2023 Humira [adalimumab] 08/19/2023 Mobic [meloxicam] Hives 08/19/2023 Remicade [infliximab] 08/19/2023 Tocilizumab 08/19/2023 Xeljanz [tofacitinib] 08/19/2023 Vitals Value Taken Time Pulse 83 01/30/24 1552 Temp 36.9 ??C (98.4 ??F) 01/30/24 1550 Resp 17 01/30/24 1556 SpO2 99 % 01/30/24 1556 NIBP 123/67 01/30/24 1552 ART MAP NIBP (mean) 85 01/30/24 1552 documented in this encounter Plan of Treatment Not on file documented as of this encounter Visit Diagnoses Not on filedocumented in this encounter Administered Medications Inactive Administered Medications - up to 3 most recent administrations Medication Order MAR Action Action Date Dose Rate Site ceFAZolin (Ancef) syringe for injection 2 g 20 mL 2 g (2,000 mg), Intravenous, at 60 mL/hr, PRE-OP ONCE, Starting on Fri01/30/24 at 0000, For 1 dose, Pre-op (day of surgery), Administer over 20 Minutes, REFRIGERATORIndications:SURGICAL PROPHYLAXIS Given 01/30/2024 1:55 PM EDT 2,000 mg fentaNYL (Sublimaze) 50 mcg/mL injection Intravenous, INTRA-OP PRN, Starting on Fri01/30/24 at 1357, Intra-op Given 01/30/2024 3:24 PM EDT 25 mcg Given 01/30/2024 3:03 PM EDT 25 mcg Given 01/30/2024 2:58 PM EDT 25 mcg glycopyrrolate (ROBINUL) injection Intravenous, INTRA-OP PRN, Starting on Fri01/30/24 at 1426, Intra-op Given 01/30/2024 2:26 PM EDT 0.2 mg lactated ringers infusion Intravenous, CONTINUOUS PRN, Starting on Fri01/30/24 at 1503, Intra-op New Bag 01/30/2024 3:03 PM EDT lidocaine (PF) 2 % injection Intravenous, INTRA-OP PRN, Starting on Fri01/30/24 at 1357, Intra-op Given 01/30/2024 1:57 PM EDT 60 mg ondansetron (PF) (ZOFRAN) injection Intravenous, INTRA-OP PRN, Starting on Fri01/30/24 at 1528, Intra-op Given 01/30/2024 3:28 PM EDT 4 mg propofoL (Diprivan) 10 mg/mL injection Intravenous, INTRA-OP PRN, Starting on Fri01/30/24 at 1357, Intra-op Given 01/30/2024 1:57 PM EDT 200 mg sodium chloride 0.9% IV solution 1,000 mL, Intravenous, PRE-OP CONTINUOUS, Starting on Fri01/30/24 at 0000, Pre-op (day of surgery) Restarted 01/30/2024 1:53 PM EDT New Bag 01/30/2024 12:32 PM EDT 1,000 mL 125 mL/hr documented in this encounter Care Teams Steam Locomotive Firer/Fireman Relationship Specialty Start Date End Date Julisa Kerr MD [address] [place] [address] PCP - General Family Medicine 08/07/23 documented as of this encounter
--- OUTSIDE RECORDS SUMMARY | 2024-08-22 21:54 | XMS_ITS | Encounter Summary ---
Author Organization [facility] Address [address] [place] [address] Care Team Providers Care Stroke Belt Sander Operator Name Role Phone Julisa Kerr MD Primary Care Provider [phone] Reason for Referral * Consultation (Routine) - Pending Review Specialty Diagnoses / Procedures Referred By Anatoliy t Referred To Contact Pharmacist Diagnoses Primary osteoarthritis of left hip Jame Webb PA [address] [place] [address] Phone: tel: fax: Referral ID Status Reason Start Date Expiration Date V isits Requested Visits Authorized [id number] Pending Review 01/22/2024 01/21/2025 1 1 Encounter Details Date Type Department Care Team (Latest Contact Info) Description 12/29/2023 Preop Surgical Orders [facility] [address] [place] [address] Jordy Clifton MD [address] [place] [address] [address] [place] [address] Primary osteoarthritis of left hip (Primary Dx) [...] BLOOD COUNT) Lab Routine Primary osteoarthritis of left hip 1 Occurrences starting 01/22/2024 until 12/28/2024 BASIC METABOLIC PANEL (BMP=EP1) Lab Routine Primary osteoarthritis of left hip 1 Occurrences starting 01/22/2024 until 12/28/2024 PT (PRO TIME INCLUDES INR) Lab Routine Primary osteoarthritis of left hip 1 Occurrences starting 01/22/2024 until 12/28/2024 Scheduled Referrals Name Type Priority Associated Diagnoses Orde r Schedule AMBULATORY PHARMACIST REFERRAL Outpatient Referral Routine Primary osteoarthritis of left hip 1 Occurrences starting 01/22/2024 until 12/28/2024 documented as of this encounter Visit Diagnoses Diagnosis Primary osteoarthritis of left hip- Primary Primary localized osteoarthrosis, pelvic region and thigh documented in this encounter Care Teams Stroke Belt Sander Operator Relationship Specialty Start Date End Date Julisa Kerr MD [address] [place] [address] PCP - General Family Medicine 08/07/23 documented as of this encounter
--- OUTSIDE RECORDS SUMMARY | 2024-08-22 21:54 | XMS_ITS | Encounter Summary ---
Author Organization [facility] Address [address] [place] [address] Care Team Providers Care Quarry Supervisor Name Role Phone Julisa Kerr MD Primary Care Provider [phone] Reason for Visit * Auth/Cert (Routine) Specialty Diagnoses / Procedures Referred By Contac t Referred To Contact Diagnoses Primary osteoarthritis of right knee Primary osteoarthritis of right knee [M17.11] Procedures MN ARTHRP KNE CONDYLE&PLATU MEDIAL&LAT COMPARTMENTS Arthroplasty Total Knee Referral ID Status Reason Start Date Expiration Date Visits Re quested Visits Authorized [id number] 1 1 Encounter Details Date Type Department Care Team (Late st Contact Info) Description 08/22/2023 1:06 PM EST Anesthesia Event [facility] [address] [place] [address] Bairon Montano MD [address] [place] [address] Kasandra Olivo, [employer] [facility] [address] [place] [address] Anesthesia Record Procedure Summary Procedure Name Responsible Anesthesiologist Anesthesia Start Time Anesthesia Stop Time RIGHT TOTAL KNEE ARTHROPLASTY (Right) Bairon Montano MD 08/22/23 1306 08/22/23 1503 Events Date Time Event Comment 08/22/2023 1059 1306 An Start 1306 An Start Data 1313 An Induction 1315 LMA 1336 Quick Note Waiting on surg timi 1348 Procedure Start Surgical Inc ision Time 1452 Procedure End 1453 BAIRON AIRWAY REMOVED 1457 an stop data 1503 An End Meds Name Total fentanyl 100 mcg propofol 150 mg lidocaine injection (PF) 2% 100 mg ondansetron (PF) 4 mg ceFAZolin (Ancef) syringe for injection 2 g 20 mL 2,000 mg phenylephrine bolus 300 mcg ketamine 50 mg/mL (1 mL) 50 mg glycopyrrolate 0.2 mg labetalol 5 mg midazolam 1 mg sodium chloride 0.9% IV solution 1,000 m L * Agents Name O2 N2O Air Sevoflurane (exp) * Blood No blood administrations on file. Lines, Drains, and Airways Type Details Placement Removal Peripheral IV Size: 20 G; Length: 1 inch; Orientation: Left; Location: Forearm; Inserted by: Percy Yeboah Rn; Attempts: 1; Removal reason: Therapy completed 08/22/23 1104 by Angela Yeboah RN 08/22/23 1731 by Kateryna Mack RN Airway Tube type: LMA; Tube size: 4 mm; Technique comment: Dentition intact, Atraumatic; Ease: 1; Cuff to seal: Yes; Humidvent: Yes; Verified by: Capnometry; Attempts: 1; Removal condition: Breathing Well, Follows Commands, Sustained Headlift 08/22/23 1315 by Kasandra Olivo CAA 08/22/23 1453 by Kasandra Olivo CAA Surgical Incision Nursing Assessment (LDA) 08/22/23; 1349; Surgical - During this Admission; Knee; Right; 08/26/23; 1748 08/22/23 1349 by Crystal Lafleur RN 08/26/23 1748 by Autodiscontinue, Discharge documented in this encounter [...] OR Notes * Anesthesia Postprocedure Evaluation - Kasandra Olivo JAYESH - 08/22/2023 3:03 PM EST Post Anesthesia Evaluation Anesthesia Type: general Date of Surgery: 08/22/2023 Surgeon(s): Jordy Clifton MD Yuliet Newsome is stable with no current apparent anesthetic complications. Vitals reviewed and accepted. Vitals: Blood Pressure: BP Readings from Last 1 Encounters: 08/22/23 131/90 Heart Rate: Pulse Readings from Last 1 Encounters: 08/22/23 96 Respirations: Resp Readings from Last 1 Encounters: 08/22/23 12 O2 Sat: SpO2 Readings from Last 1 Encounters: 08/22/23 93% Temp: Temp Readings from Last 1 Encounters: 08/22/23 36.8 ??C (98.2 ??F) (Core) [x] Cardiorespiratory status is acceptable. [x] Pt responding verbally and following commands to acceptable level. [x] Temperature acceptable [x] Hydration status is acceptable [x] Patient's pain is being adequately managed [x] Patient is nausea free MIPS for Anesthesia Quality Measures: #404 Anesthesiology Smoking Abstinence ??? The Patient is a current smoker No, Stop Here(XX404) #424 Perioperative Temperature Management ??? Anesthesia start to Anesthesia end time was [...] end time (G9771) #477 Multimodal Pain Management ??? The case is Emergent No Yes, - Patient was administered multimodal pain management (two or moredrugs and/or interventions excluding systemic opioids) in the perioperative period; occurring at some time between 6 hours prior to anesthesia start time until discharged from PACU. (G2148) #430 ADULT Prevention of Post-Operative Nausea & Vomiting (PONV) - Combination Therapy (18 years and older) ??? Patient received an inhalational anesthetic Patient received an inhalational anesthetic (4554F)Yes, Patient exhibits three or more risk factors for PONV (3866F) Yes, Patient RECEIVED at least 2 prophylactic Rx PONV anti-emetic agents of different classes preop and/or intraop (G9775) * Anesthesia Preprocedure Evaluation - Bairon Montano MD - 08/22/2023 10:55 AM EST Procedure Information Case: [id number] Date/Time: 08/22/23 1300 Procedure: RIGHT TOTAL KNEE ARTHROPLASTY (Right) - RIGHT TOTAL KNEE ARTHROPLASTY Anesthesia type: General Location: [facility] Surgeons: Jordy Clifton MD Anesthesia type: general Risks, benefits, and alternatives discussed with patient. Post-Operative pain management options pertinent to the planned surgery were discussed with patientas per surgeon???s request. No history of anesthetic complications patient appropriate for plan No family hx of anesthetic complications NPO status reinforced Aspiration risk assessed. Mallampati: II ASA 2 Teeth conditions: normal Asthma, associated with allergies only, no meds HUAN Score 08/19/2023 0850 Diagnosed with Sleep Apnea?: No MIPS for Anesthesia Preop Quality Measures: Measure #404: Anesthesiology Smoking Abstinence: N/A - Patient is a nonsmoker Measure #430 Prevention of Postop Nausea and Vomiting-combination therapy (Pts 18 yrs or older, receiving inhalational anesthetic, with 3 or more risk factors) This patient's risk factors: Female gender, Non-smoker and Intended use of opioids for analgesia intraop, in PACU, or after D/C from PACU Measure #477 Multimodal Pain Management (for patients 18 yrs old and older) The plan is to administer multimodal pain management consisting of: Acetaminophen and Steroids (decadron) documented in this encounter Miscellaneous Notes * Anesthesia PACU Handoff Note - Kasandra Olivo CAA - 08/22/2023 3:02 PM EST Transfer of Care Anesthesia Handoff Note Date of Surgery: 08/22/2023 Scheduled Procedure(s): RIGHT TOTAL KNEE ARTHROPLASTY Patient: Yuliet Newsome CSN: [id number] Anesthesiologist: Bairon Montano MD Complications: Recovery Location: PACU Airway: Spontaneous Pain Assessment: Managed Level of Consciousness: Arousable Intraoperative anesthetic care and concerns, pertinent medical history, medications, allergies, surgical/procedure course and plan for post procedure period discussed with receiving PACU or ICU team.Opportunity for questions and understanding of report acknowledged. Post-procedure handoff checklist complete. Past Medical History: Diagnosis Date ??? Asthma allergy induced ??? Back problem ??? Mobility impaired using a cane ??? Neck problem pinched nerve ??? Rheumatoid arthritis ([facility]) ??? Venous thrombosis and embolism 05/2023 dvt right leg Allergies as of 08/15/2023 ??? (Not on File) Vitals 08/22/23 1116 08/22/23 1500 BP: 116/71 131/90 Pulse: 77 96 Resp: 16 12 Temp: 36.8 ??C (98.2 ??F) documented in this encounter Plan of Treatment Not on file documented as of this encounter Visit Diagnoses Not on filedocumented in this encounter Administered Medications Inactive Administered Medications - up to 3 most recent administrations Medication Order MAR Action Action Date Dose Rate Site ANESTHESIA-PROPOFOL 10 MG/ML INJECTION Intravenous, INTRA-OP PRN, Starting on Fri08/22/23 at 1313, Intra-op Given 08/22/2023 1:13 PM EST 150 mg ceFAZolin (Ancef) syringe for injection 2 g 20 mL 2 g (2,000 mg), Intravenous, PRE-OP ONCE, Starting on Fri08/20/23 at 1623, For 1 dose, Pre-op (day of surgery)Indications:SURGICAL PROPHYLAXIS Given 08/22/2023 1:16 PM EST 2,000 mg fentaNYL (Sublimaze) 50 mcg/mL injection Intravenous, INTRA-OP PRN, Starting on Fri08/22/23 at 1313, Intra-op Given 08/22/2023 1:48 PM EST 50 mcg Given 08/22/2023 1:13 PM EST 50 mcg glycopyrrolate (ROBINUL) injection Intravenous, INTRA-OP PRN, Starting on Fri08/22/23 at 1346, Intra-op Given 08/22/2023 1:46 PM EST 0.2 mg ketamine (KETALAR) injection Intravenous, INTRA-OP PRN, Starting on Fri08/22/23 at 1325, Intra-op Given 08/22/2023 2:20 PM EST 25 mg Given 08/22/2023 1:25 PM EST 25 mg labetaloL (NORMODYNE;TRANDATE) injection Intravenous, INTRA-OP PRN, Starting on Fri08/22/23 at 1401, Intra-op Given 08/22/2023 2:01 PM EST 5 mg lidocaine (PF) 2 % injection Intravenous, INTRA-OP PRN, Starting on Fri08/22/23 at 1313, Intra-op Given 08/22/2023 1:13 PM EST 100 mg midazolam (Versed) 1 mg/mL injection Intravenous, INTRA-OP PRN, Starting on Fri08/22/23 at 1448, Intra-op Given 08/22/2023 2:48 PM EST 1 mg ondansetron (PF) (ZOFRAN) injection Intravenous, INTRA-OP PRN, Starting on Fri08/22/23 at 1341, Intra-op Given 08/22/2023 1:41 PM EST 4 mg phenylephrine (JOSEPHINE-SYNEPHRINE) injection Intravenous, INTRA-OP PRN, Starting on Fri08/22/23 at 1318, Intra-op Given 08/22/2023 1:31 PM EST 100 mcg Given 08/22/2023 1:24 PM EST 100 mcg Given 08/22/2023 1:18 PM EST 100 mcg sodium chloride 0.9% IV solution 1,000 mL, Intravenous, PRE-OP CONTINUOUS, Starting on Fri08/22/23 at 0000, Pre-op (day of surgery) New Bag 08/22/2023 1:56 PM EST New Bag 08/22/2023 11:04 AM EST 1,000 mL 125 mL/hr documented in this encounter Care Teams Quarry Supervisor Relationship Specialty Start Date End Date Julisa Kerr MD [address] [place] [address] PCP - General Family Medicine 08/07/23 documented as of this encounter
--- OUTSIDE RECORDS SUMMARY | 2024-08-22 21:54 | XMS_ITS | Encounter Summary ---
Author Organization [place] [address] Care Team Providers Care It Sales Representative Name Role Phone Unavailable Primary Care Provider Unavailabl e Encounter Details Date Type Department Care Team (Late st Contact Info) Description 10/07/1990 9:36 AM EST - 10/07/1990 11:59 PM EST Hospital Encounter [facility] Social History Tobacco Use Types Packs/Day Years [...] Description 08/31/2024 8:30 AM EST [address]ointment [address] [place] [address] 10/25/2024 10:45 AM EST Office Visit [facility] [address] [facility] [address] [place] [address] Jessica Cortes MD [address] [facility] [address] [place] [address] 01/25/2025 9:00 AM EDT Appointment [address] [place] [address] 05/09/2025 11:00 AM EDT Appointment [address] [place] [address] 05/09/2025 11:15 AM EDT Appointment [address] [place] [address] Susana Garay MD [address] [place] [address] [address] [place] [place] [phone] documented as of this encounter Visit Diagnoses Not on filedocumented in this encounter
--- OUTSIDE RECORDS SUMMARY | 2024-08-22 21:54 | XMS_ITS | Encounter Summary ---
Author Organization [facility] Address [address] [place] [address] Care Team Providers Care Pulmonary Fellow Name Role Phone Julisa Kerr MD Primary Care Provider [phone] Reason for Visit * Auth/Cert (Routine) Specialty Diagnoses / Procedures Referred By Kavehac t Referred To Contact Diagnoses Primary osteoarthritis of left hip Primary osteoarthritis of left hip [M16.12] Procedures OR ARTHRP ACETBLR/PROX FEM PROSTC AGRFT/ALGRFT Arthroplasty Total Hip Anterior Approach Referral ID Status Reason Start Date Expiration Date Visits Re quested Visits Authorized [id number] 1 1 Encounter Details Date Type Department Care Team (Latest Contact Info) Description 01/30/2024 11:18 AM EDT - 01/30/2024 6:15 PM EDT Hospital Encounter [facility] [address] [place] [address] Jrody Clifton MD [address] [facility] [address] [place] [address] Post-op pain (Primary Dx); Primary osteoarthritis of left hip Discharge Disposition: Home or [...] Clifton MD Post Operative Instructions: Joint Replacement [facility] Orthopaedics and Sports Medicine [address] [place] [address] [phone] ([phone]) [facility] [phone] ([phone]) [place] Procedure / Diagnosis: total hip arthroplasty Pain [...] risk of thermal injury. X Please call [phone] if you are having pain that is [...] days, unless otherwise directed. 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 Leisure: dogs and grandkids Additional Comments: [...] limit participation Vision and Hearing Screening Hearing: WFL Cognition Overall Cognitive Status: Does [...] L Knee Flexion: 3+/5 Complete ROM Against Jbphh/Slight Resistance L Knee Extension: 3+/5 Complete ROM Against Jbphh/Slight Resistance L Ankle Dorsiflexion: 4+/5 Part moves [...] and Knee Replacement & General Orthopaedic Surgery [facility] Orthopa[facility]ics and Sports Medicine [phone] ([phone]) [facility] [phone] ([phone]) [place] OPERATIVE REPORT Yuliet Newsome 01/30/2024 PRE-OP DIAGNOSIS: Primary osteoarthritis of left hip [M16.12] POST-OP DIAGNOSIS: Primary osteoarthritis of left hip [M16.12] PROCEDURE: Procedure(s): LEFT TOTAL HIP ARTHROPLASTY (Left) SURGEON: Surgeon(s) and Role: * Jordy Clifton MD - Primary NEWSPAPER DELIVERY DRIVER: Lance Leong DO, for the purposes of [...] Implant Name Type Inv. Item Serial No. Pulverizer Operator Lot No. LRB No. Used Action 50 MM LINER COATED SHELL - [id number] 50 MM LINER COATED SHELL * BAUMAN \T\ NEPHEW [id number] Left 1 Implanted ACETABULAR LINER 36MM ID X 50MM OD - [id number] ACETABULAR LINER 36MM ID X 50MM OD * [employer]UMAN \T\ NEP[employer]W [id number] Left 1 Implanted STEM POLAR COLLAR LAT TI/HICKS 1 - [id number] STEM POLAR COLLAR LAT TI/HICKS 1 [id number] Left 1 Implanted HD OXINIUM FEM 12/14 36 MM L+8 - [id number] HD OXINIUM FEM 12/14 36 MM L+8 BAUMAN \T\ [employer] [id number] Left 1 Implanted HISTORY OF PRESENT ILLNESS: [...] RESULTABLE ONLY ORDERS Edited Result - Final [facility] [address] [place], [place] [address] * MSK OUTCOME SCORES (03/14/2024 11:17 AM EDT) 03/14/2024 11:1 7 AM EDT External Provider RESULTABLE ONLY ORDERS Edited Result - Final [facility] [address] [place] [address], [facility] * DIAG-[facility] OS DEPT EA 30 MIN (01/30/2024 3:30 PM EDT) Impressions Prema Sparks, RT - 01/30/2024 3:30 PM EDT ABOVE Narrative Prema Sparks, RT - 01/30/2024 3:30 PM EDT Fluoroscopic assistance was provided and/or was available during the above procedure.?? A Radiologist was not in attendance.? Fluoro time =?0 minutes and 0 seconds. ?? Jordy Clifton MD IMG FLUOROSCOPY ORDERABLE S Final Result * DIAG-FLUORO [...] Provider RESULTABLE ONLY ORDERS Final R esult [facility] [address] [place] [id number] documented in this encounter Visit Diagnoses Diagnosis Primary osteoarthritis of left hip- Primary Primary localized osteoarthrosis, pelvic region and thigh Primary osteoarthritis of left hip Primary localized osteoarthrosis, pelvic region and thigh Post-op pain Other acute postoperative pain documented in this encounter Admitting Diagnoses Diagnosis [...] Starting on Fri01/30/24 at 2100 sodium chloride 0.9% IV solution 1,000 mL, [...] PACU documented in this encounter Care Teams Pulmonary Fellow Relationship Specialty Start Date End Date Julisa Kerr MD [address] [place] [address] PCP - General Family Medicine 08/07/23 documented as of this encounter
--- OUTSIDE RECORDS SUMMARY | 2024-08-22 21:54 | XMS_ITS | Encounter Summary ---
Author Organization [facility] Address [address] [place] [address] Care Team Providers Care Welfare Visitor Name Role Phone Julisa Kerr MD Primary Care Provider Encounter Details Date Type Department Care Team ([facility] Contact Info) Description 08/15/2023 Preop Surgical Orders Community Physician Ordering Department [address] [place] [address] Jordy Clifton MD [address] [place] [address] [place] [address] Social History Tobacco Use Types Packs/Day Years [...] filedocumented in this encounter Care Teams Welfare Visitor Relationship Specialty Start Date End Date Julisa Kerr MD [address] [place] [address] PCP - General Family Medicine 08/07/23 documented as of this encounter
--- OUTSIDE RECORDS SUMMARY | 2024-08-22 21:54 | XMS_ITS | Encounter Summary ---
Author Organization [facility] Address [address] [place] [address] Care Team Providers Care Internal Audit Director Name Role Phone Julisa Kerr MD Primary Care Provider [phone] Encounter Details Date Type Department Care Team (Late st Contact Info) Description 03/06/2021 Abstract [facility] Orthopaedic Surgery & Sports Medicine [address] [place] [id number] Carly Ma MD [address] [address] Social History Tobacco Use Types Packs/Day Years [...] Pressure 126/87 12/05/2020 1:19 PM EST Pulse - - Temperature - - Respiratory Rate - - Oxygen Saturation - - Inhaled Oxygen Concentration - - Weight - - Height - - Body Mass Index - - documented in this encounter Plan of Treatment Not on file documented as of this encounter Visit Diagnoses Not on filedocumented in this encounter Care Teams Internal Audit Director Relationship Specialty Start Date End Date Julisa Kerr MD [address] [place] [address] PCP - General 02/09/21 documented as of this encounter
--- OUTSIDE RECORDS SUMMARY | 2024-08-22 21:54 | XMS_ITS | Encounter Summary ---
Author Organization [facility] Address [address] [place] [address] Care Team Providers Care Boiler House Operator Name Role Phone Julisa Kerr MD Primary Care Provider [phone] Reason for Visit * Reason Onset Date Comments Other 01/26/2024 Encounter Details Date Type Department Care Team (Late st Contact Info) Description 01/26/2024 [place] [address] Worker, Social Other Social History Tobacco Use [...] Telephone Encounter - Breonna Joyce LSW - 01/26/2024 2:49 PM EDT CAROLINE called patient to inquire about possible D/C needs and conduct initial D/C assessment prior to LTHA surgery on 01/[address] Clifton. TREE Martin LM. [phone] documented in this encounter Plan of Treatment Not on file documented as of this encounter Visit Diagnoses Not on filedocumented in this encounter Care Teams Boiler House Operator Relationship Specialty Start Date End Date Julisa Kerr MD [address] [place] [address] PCP - General Family Medicine 08/07/23 documented as of this encounter
--- NOTE | 2024-08-22 22:02 | PC.NURSE ---
A new 22G IV was inserted into the left wrist.
--- NOTE | 2024-08-22 22:08 | XR_ITS ---
PROCEDURE INFORMATION: Exam: XR Right Knee Exam date and time: 08/22/2024 10:13 PM Age: 53 years old Clinical indication: Injury or trauma; Fall; Blunt trauma; Knee; Right; Additional info: Fell on R knee, medial tib plat pain TECHNIQUE: Imaging protocol: Radiologic exam of the right knee. Views: 3 views. COMPARISON: No relevant prior studies available. FINDINGS: Bones/joints: Nondisplaced fracture through the distal medial aspect of the femur at the superior femoral condyle region only seen on the AP view. No other definite fracture seen. Moderate size suprapatellar joint effusion with fluid level compatible with hemarthrosis. Right knee arthroplasty. Soft tissues: Normal. IMPRESSION: Medial distal femur fracture. Associated hemarthrosis.
--- NOTE | 2024-08-22 22:08 | CT_ITS ---
PROCEDURE INFORMATION: Exam: CT Head Without Contrast Exam date and time: 08/22/2024 10:12 PM Age: 53 years old Clinical indication: Injury or trauma; Fall; Blunt trauma (contusions or hematomas); Additional info: Fell, hit head, on eliquis TECHNIQUE: Imaging protocol: Computed tomography of the head without contrast. Radiation optimization: All CT scans at this facility use at least one of these dose optimization techniques: automated exposure control; mA and/or kV adjustment per patient size (includes targeted exams where dose is matched to clinical indication); or iterative reconstruction. COMPARISON: CT HEAD/BRAIN WO CON 01/03/2024 3:57 PM FINDINGS: Brain: Normal. No hemorrhage. Unremarkable white matter. No mass effect. Cerebral ventricles: No ventriculomegaly. Paranasal sinuses: Visualized sinuses are unremarkable. No fluid levels. Mastoid air cells: Visualized mastoid air cells are well aerated. Bones: Unremarkable. No acute fracture. Soft tissues: Unremarkable. IMPRESSION: Stable noncontrast CT brain. No acute intracranial abnormality.
[2024-08-22 22:09] VITALS: BP 122/83; PULSE 101; O2SAT 95
[2024-08-22] MEDS: KETOROLAC 30MG/ML VIAL 15 MG IV (22:12)
[2024-08-22 22:30] VITALS: BP 122/82; PULSE 101; O2SAT 96
[2024-08-22 22:32] LABS: Microscopic, Urine URINE MICROSCOPIC (MICROSCOPIC)
[2024-08-22 22:34] LABS: Appearance,Urine CLEAR (Clear); Bilirubin,Urine Negative (Negative); Blood, Urine Negative (Negative); Color,Urine YELLOW (Yellow); Glucose,Urine (UA) Negative (Negative); Ketones,Urine Negative (Negative); Leukocyte Esterase,Urine Negative (Negative); Nitrate,Urine Negative (Negative); Protein,Urine Negative (Negative); Urobilinogen,Urine 0.2 EU/dl (0.2)
[2024-08-22 22:50] LABS: Bacteria,Urine 1+ /lpf
--- NOTE | 2024-08-22 23:16 | PC.NURSE ---
Called for patient transfer, waiting for a call back at this time.
[2024-08-22 23:43] LABS: Basophils # 0.1 K/mm3 (0-0.2); Basophils % 0.9 % (0.1-2.0); Eosinophils # 0.2 K/mm3 (0.0-0.4); Eosinophils % 1.9 % (0.1-12.0); Hematocrit 39.2 % (37.0-47.0); Hemoglobin 12.9 g/dL (12.2-16.2); Lymphocytes # 1.9 K/mm3 (0.7-4.5); Lymphocytes % 18.2 % (10-50); Mean Corpuscular HGB Conc 32.9 g/dL (31.8-35.4); Mean Corpuscular Hemoglobin 26.5 pg (27.0-31.2); Mean Corpuscular Volume 80.5 fl (81-99); Mean Platelet Volume 7.5 fl (7.4-10.4); Monocytes # 0.9 K/mm3 (0.1-1.0); Monocytes % 8.9 % (1.7-9.3); Neutrophils # 7.2 K/mm3 (1.8-7.8); Platelet Count 329 K/mm3 (142-424); Red Blood Count 4.87 M/mm3 (4.20-5.40); Red Cell Distribution Width 15.9 % (11.5-17.5); White Blood Count 10.3 K/mm3 (4.8-10.8)
[2024-08-22 23:46] LABS: Albumin Level 3.5 g/dl (3.5-5.0); Chloride 103 mmol/L (98-107); Potassium 3.6 mmoL/L (3.5-5.1); Sodium 134 mmol/L (136-145)
[2024-08-22 23:49] LABS: Alanine Aminotransferase 19 U/L (12-78); Alkaline Phosphatase 80 U/L (38-126); Anion Gap 8.6 mEq/L (5-15); Aspartate Amino Transferase 26 U/L (14-36); Bilirubin,Total 0.6 mg/dl (0.2-1.3); Blood Urea Nitrogen 12 mg/dl (7-17); Calcium 8.9 mg/dl (8.4-10.2); Carbon Dioxide 26 mmol/L (22.0-30.0); Creatinine Clearance Estimated 83 mL/min (50-200); Estimated Glomerular Filt Rate 75 ml/min (>60); GFR (African American) 91 ML/MIN (>60); Glucose 112 mg/dl (74-100); Total Protein,Serum 6.9 g/dl (6.3-8.2)
[2024-08-23 00:02] LABS: Troponin I < 0.01 ng/ml (0.00-0.034)
[2024-08-23] MEDS: MORPHINE 4MG/ML SYRINGE 4 MG IV (00:18)
--- NOTE | 2024-08-23 00:20 | PC.NURSE ---
called about a transfer, speaking with the other doctor at this time.
[2024-08-23 00:26] LABS: Albumin/Globulin Ratio 1.1 (1.1-1.8); Globulin 3.3 g/dL (1.3-3.2)
--- NOTE | 2024-08-23 00:26 | PC.NURSE ---
ED doctor on phone with MATTY masterson accepted
--- NOTE | 2024-08-23 00:50 | PC.NURSE ---
Report given to pricila at ER
[2024-08-23 00:57] VITALS: BP 124/72; PULSE 74; RESP 18; TEMP 36.6; O2SAT 98
[2024-08-23 03:09] LABS: HIV (1&2) Antibody Rapid NONREACTIVE (NONREACTIVE)
[2024-08-24 11:19] LABS: HCV Ab Non Reactive (Non Reactive)
== END 2024-08-23 01:05 | disposition other institution (70) ==
PROVIDERS: Emergency Medicine; Emergency Provider Emergency Medicine; PCP Family Medicine
DX: S72.401A Unspecified fracture of lower end of right femur, initial encounter for closed fracture (principal); R55 Syncope and collapse; R53.1 Weakness; R11.2 Nausea with vomiting, unspecified; R42 Dizziness and giddiness; W19.XXXA Unspecified fall, initial encounter; Y93.9 Activity, unspecified
CPT/HCPCS: 70450; 73562; 80053; 81001; 84484; 85025; 86803; 87389; 93005; 96374; 96375; 99284; J1885; J2270

== ENCOUNTER 2025-03-09 15:09 | Outpatient (CLI) | payer OTHER, SELFPAY ==
--- OUTSIDE RECORDS SUMMARY | 2023-05-15 11:55 | XMS_ITS | Encounter Summary ---
Author Organization [place] [address] Care Team Providers Care Private Household Worker Name Role Phone Julisa Kerr MD Primary Care Provider [phone] Jessica Cortes MD Unavailable [phone] Susana Garay MD Unavailable [phone] Encounter Details Date Type Department Care Team (Latest Contact Info) Description 05/15/2023 11:55 AM EDT Hospital Encounter [facility] [address] [place], [place] [id number] Left without seen Social History Tobacco Use Types Packs/Day Years Used Date Smoking Tobacco: Never Passive Smoke Exposure: Never Smokeless Tobacco: Never Alcohol Use Standard Drinks/Week Comments Not Currently 0 (1 standard drink = 0.6 oz pur e alcohol) Only occasionally PHQ-2 Answer Date Recorded PHQ-2 Total Score 0 11/12/2024 Sexually Active Control Partners Comments Not Currently Post-menopausal Male Hysterectom y Comments No Sex and Gender Information Value Date Recorded Sex Assigned at Not on file Legal Sex Female 5:21 PM EDT Gender Identity Not on file Sexual Orientation Not on file COVID-19 Exposure Response Date Recorded In the last 10 days, have yo u been in contact with someone who was confirmed or suspected to have Coronavirus/COVID-19? No / Unsure 05/02/2023 11:07 AM EDT documented as of this encounter Functional Status * Cognitive and Functional Status Question Answer Date of Assessment Author Is the person deaf or does h e/she have serious difficulty hearing? No 11/12/2024 11:12 AM EST Elizabet Ham MA Is the person blind or does he/she have serious difficulty seeing even when wearing glasses? No 11/12/2024 11:12 AM EST Elizabet El MA Does this person have seriou s difficulty walking or climbing stairs? No 11/12/2024 11:12 AM Elizabet Blake MA Does this person have diffic ulty dressing or bathing? No 11/12/2024 11:12 AM EST Elizabet Levy MA * Is the person deaf or does he/she have serious difficulty hearing? Answer Date of Assessment Author No 02/12/2022 2:17 PM EDT Albin Levy MA * Is the person blind or does he/she have serious difficulty seeing even when wearing glasses? Answer Date of Assessment Author No 02/12/2022 2:17 PM EDAlbin Brennan MA * Does this person have serious difficulty walking or climbing stairs? Answer Date of Assessment Author No 02/12/2022 2:17 PM EDAlbin Brennan MA * Does this person have difficulty dressing or bathing? Answer Date of Assessment Author No 02/12/2022 2:17 PM EDAlbin Brennan MA * Because of a physical, mental or emotional condition, does this person have difficulty doing errands alone such as visiting a doctor's office or shopping? Answer Date of Assessment Author No 02/12/2022 2:17 PM EDT Albin Levy MA * PHQ-9 Total Score Answer Date of Assessment Author 0 11/12/2024 11:12 AM Dillon Blake MA * Question Answer Date of Assessment Author Little interest or pleasure in doing things 0 11/12/2024 11:12 AM Elizabet Blake MA Feeling down, depressed, or hopeless 0 11/12/2024 11:12 AM Elizabet Blake MA PHQ-2 Total Score 0 11/12/2024 11:12 AM Elizabet Blake MA * Question Answer Date of Assessment Author Feeling Nervous, Anxious, or on Edge 0 11/12/2024 11:12 AM Elizabet Blake MA Not Being Able to Stop or Co ntrol Worrying 0 11/12/2024 11:12 AM Elizabet Blake MA Worrying too Much About Diff erent Things 0 11/12/2024 11:12 AM Elizabet Blake MA Trouble Relaxing 0 11/12/2024 11:12 AM Elizabet Blake MA Being so Restless That it is Hard to Sit Still 0 11/12/2024 11:12 AM Elizabet Blake MA Becoming Easily Annoyed or Irritable 0 11/12/2024 11:12 AM Elizabet Blake MA Feeling Afraid as if Somethi ng Awful Might Happen 0 11/12/2024 11:12 AM Elizabet Blake MA ANGEL-7 Total Score 0 11/12/2024 11:12 AM Elizabet Blake MA * Suicide Severity Rating Answer Date of Assessment Author No Risk 05/03/2024 11:00 AM Nancy Perkins MA * [place] Suicide Severity Rating Scale (Q shift for moderate and high) Question Answer Date of Assessment Author 1. In the past month, have y ou wished you were or wished you could go to sleep and not wake up? 0 05/03/2024 11:00 AM Mary Perkins MA 2. In the past month, have y ou actually had any thoughts of killing yourself? (If no, skip to question 6) 0 05/03/2024 11:00 AM Mary Perkins MA 6. Have you ever done anythi ng, started to do anything, or prepared to do anything to end your life? 0 05/03/2024 11:00 AM Mary Perkins MA documented as of this encounter Mental Status * Cognitive and Functional Status Question Answer Entry Date Author Because of a physical, menta l or emotional condition, does this person have difficulty doing errands alone such as visiting a doctor's office or shopping? No 11/12/2024 11:12 AM Federico Blake MA Because of a physical, menta l or emotional condition, does this person have serious difficulty concentrating, remembering or making decisions? No 11/12/2024 11:12 AM EST Elizabet Levy MA * Because of a physical, mental or emotional condition, does this person have serious difficulty concentrating, remembering or making decisions? Answer Entry Date Author No 02/12/2022 2:17 PM EDT Albin Levy MA documented in this encounter Plan of Treatment Upcoming Encounters Date Type Department Care Team (Late st Contact Info) Description 05/09/2025 11:00 AM EDT Appointment [address] [address] 05/09/2025 11:15 AM EDT Appointment [address] [place] [address] Susana Garay MD [address] [place], [place] [id number] 05/13/2025 2:15 PM EDT Office Visit [facility] [address] [place] [address] Jessica Cortes MD [address] [facility] [address] [place] [id number] documented as of this encounter Goals Goal Patient Goal Type Associated Problems Recent Progress Patient-Stated? 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, RN documented as of this encounter Visit Diagnoses Not on filedocumented in this encounter Care Teams Private Household Worker Relationship Specialty Start Date End Date Julisa Kerr MD [address] [place], [place] [id number] PCP - General 02/22/11 Jessica Cortes MD [address] [place] [address] Internal Medicine-Rheumatology 04/26/16 Susana Garay MD [address] [facility] [facility] [address] [place], [place] [address] Medical Oncologist Internal Medicine-Hematology and Oncology 10/14/22 documented as of this encounter
--- OUTSIDE RECORDS SUMMARY | 2023-08-06 12:10 | XMS_ITS | Encounter Summary ---
Author Organization [place] [address] Care Team Providers Care Branch Officer Name Role Phone Julisa Kerr MD Primary Care Provider [phone] Jessica Cortes MD Unavailable [phone] Susana Garay MD Unavailable [phone] Encounter Details Date Type Department Care Team (Latest Contact Info) Description 08/06/2023 11:10 AM EST Hospital Encounter [facility] [address] [place], [place] [phone] Left without seen Social History Tobacco Use [...] on file Sexual Orientation Not on file documented as of this encounter Functional Status * Cognitive and Functional Status Question Answer Date of Assessment Author Is the person deaf or does h e/she have serious difficulty hearing? No 11/12/2024 11:12 AM EST Elizabet Ham MA Is the person blind or does he/she have serious difficulty seeing even when wearing glasses? No 11/12/2024 11:12 AM Elizabet Silverman MA Does this person have seriou s difficulty walking or climbing stairs? No 11/12/2024 11:12 AM Elizabet Blake MA Does this person have diffic ulty dressing or bathing? No 11/12/2024 11:12 AM Elizabet Blake MA * Is the person deaf or does he/she have serious difficulty hearing? Answer Date of Assessment Author No 06/10/2023 11:21 AM Dillon Mcnamara MA * Is the person blind or does he/she have serious difficulty seeing even when wearing glasses? Answer Date of Assessment Author No 06/10/2023 11:21 AM Dillon Mcnamara MA * Does this person have serious difficulty walking or climbing stairs? Answer Date of Assessment Author No 06/10/2023 11:21 AM Dillon Mcnamara MA * Does this person have difficulty dressing or bathing? Answer Date of Assessment Author No 06/10/2023 11:21 AM Dillon Mcnamara MA * Because of a physical, mental or emotional condition, does this person have difficulty doing errands alone such as visiting a doctor's office or shopping? Answer Date of Assessment Author No 06/10/2023 11:21 AM Dillon Mcnamara MA * PHQ-9 Total Score Answer Date [...] 05/03/2024 11:00 AM Nancy Perkins MA * [place] Suicide Severity Rating Scale (Q shift for [...] or making decisions? No 11/12/2024 11:12 AM Elizabet Blake MA * Because of a physical, mental or emotional condition, does this person have serious difficulty concentrating, remembering or making decisions? Answer Entry Date Author No 06/10/2023 11:21 AM EDT Dillon Levy MA documented in this encounter Plan of Treatment Upcoming Encounters Date Type Department Care Team (Late st Contact Info) Description 05/09/2025 11:00 AM EDT Appointment [address] [place] [address] 05/09/2025 11:15 AM EDT Appointment [address] [place] [address] Susana Garay MD [address] [facility] [place] [id number] 05/13/2025 2:15 PM EDT Office Visit [facility] [address] [facility] [address] [place] [address] Jessica Cortes MD [address] [place] [address] [address] [place] [address] documented as of this encounter Goals Goal Patient Goal Type Associated Problems Recent Progress Patient-Stated? 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, RN documented as of this encounter Visit Diagnoses Not on filedocumented in this encounter Care Teams Branch Officer Relationship Specialty Start Date End Date Julisa Kerr MD [address] [place], [place] [phone] PCP - General 02/22/11 Jessica Cortes MD [address] [place] [address] [address] [place] [address] Internal Medicine-Rheumatology 04/26/16 Susana Garay MD [address] [facility] [address] Medical Oncologist Internal Medicine-Hematology and Oncology 10/14/22 documented as of this encounter
--- OUTSIDE RECORDS SUMMARY | 2025-01-10 12:24 | XMS_ITS | Encounter Summary ---
Author [place] [address] Care Team Providers Care Supervisor Final Name Role Phone Julisa Kerr MD Primary Care Provider [phone] Jessica Cortes MD Unavailable [phone] Susana Garay MD Unavailable [phone] Reason for Referral * Surgical (Routine) - Authorization Not Needed Specialty Diagnoses / Procedures Referred By Contact Referred To Contact Gastroenterology Diagnoses Dysphagia, unspecified type Diarrhea, unspecified type Procedures ESOPHAGOGASTRODUODENOSCOPY (EGD) MA ESOPHAGOGASTRODUODENOSCOPY TRANSORAL DIAGNOSTIC MA DILATION ESOPH UNGUIDED SOUND/BOUGIE 1/MULT PASS MA EGD INSERT GUIDE WIRE DILATOR PASSAGE ESOPHAGUS MA EGD BALLOON DILATION ESOPHAGUS <30 MM DIAM MA EGD TRANSORAL BIOPSY SINGLE/MULTIPLE MA COLONOSCOPY FLX DX W/COLLJ SPEC WHEN PFRMD Deja Martinez MD [address] [place] [address] Phone: tel:[phone] fax:[phone] Referral ID Status Reason Start Date Expiration Date Visits Requested Visits Authorized [id number] Authorization Not Needed 01/07/2025 01/07/2026 1 1 * Surgical (Routine) - Authorization Not Needed Specialty Diagnoses / Procedures Referred By Contac t Referred To Contact Gastroenterology Diagnoses Rectal bleeding Constipation, unspecified constipation type Procedures COLONOSCOPY MA COLONOSCOPY FLX DX W/COLLJ SPEC WHEN PFRMD MA COLONOSCOPY FLX W/ENDOSCOPIC MUCOSAL RESECTION Deja Martinez MD [address] [place] [address] Phone: tel: fax: Referral ID Status Reason Start Date Expiration Date Visits Requested Visits Authorized [id number] Authorization Not Needed 01/07/2025 01/07/2026 1 1 Reason for Visit * Surgical (Routine) - Authorization Not Needed Specialty Diagnoses / Procedures Referred By Contact Referred To Contact Gastroenterology Diagnoses Dysphagia, unspecified type Diarrhea, unspecified type Procedures ESOPHAGOGASTRODUODENOSCOPY (EGD) MA ESOPHAGOGASTRODUODENOSCOPY TRANSORAL DIAGNOSTIC MA DILATION ESOPH UNGUIDED SOUND/BOUGIE 1/MULT PASS MA EGD INSERT GUIDE WIRE DILATOR PASSAGE ESOPHAGUS MA EGD BALLOON DILATION ESOPHAGUS <30 MM DIAM MA EGD TRANSORAL BIOPSY SINGLE/MULTIPLE MA COLONOSCOPY FLX DX W/COLLJ SPEC WHEN PFRMD Deja Martinez MD [address] [place] [address] Phone: tel:[phone] fax:[phone] Referral ID Status Reason Start Date Expiration Date Visits Requested Visits Authorized [id number] Authorization Not Needed 01/07/2025 01/07/2026 1 1 Encounter Details Date Type Department Care Team (Latest Contact Info) Description 01/10/2025 12:24 PM EDT - 01/10/2025 11:59 PM EDT Hospital Encounter [facility] [address] [place] [address] Deja Martinez MD [address] [place] [address] Bebeto Cantu DO [address] [facility] [address] [place] [address] Shania Baeza CRNA [address] [facility] [address] [place] [address] Rectal bleeding; Constipation, unspecified constipation type; Dysphagia, unspecified type; Diarrhea, unspecified type Discharge Disposition: Home or Self [...] Sign Reading Time Taken Comments Blood Pressure 130/87 01/10/2025 3:45 PM EDT Pulse 74 01/10/2025 3:45 PM EDT Temperature 36.2 C (97.2 F) 01/10/2025 3:20 PM EDT Respiratory Rate 18 01/10/2025 3:45 PM EDT Oxygen Saturation 98% 01/10/2025 3:45 PM EDT Inhaled Oxygen Concentration - - Weight 61.6 kg (135 lb 11.2 oz) 025 12:54 PM EDT Height 172.7 cm (5' 8 ) 01/10/2025 12:5 4 PM EDT Body Mass Index 20.63 01/10/2025 12:54 PM EDT documented in this encounter Functional Status * Is the person deaf or does he/she have serious difficulty hearing? Answer Date of Assessment Author No 11/12/2024 11:12 AM Dillon Blake MA * Is the person blind or does he/she have serious difficulty seeing even when wearing glasses? Answer Date of Assessment Author No 11/12/2024 11:12 AM Dillon Blake MA * Does this person have serious difficulty walking or climbing stairs? Answer Date of Assessment Author No 11/12/2024 11:12 AM Dillon Blake MA * Does this person have difficulty dressing or bathing? Answer Date of Assessment Author No 11/12/2024 11:12 AM MANUEL Levy Dillon Sher MA * Because of a physical, mental or emotional condition, does this person have difficulty doing errands alone such as visiting a doctor's office or shopping? Answer Date of Assessment Author No 11/12/2024 11:12 AM MANUEL Cam Dillon Sher MA documented as of this encounter Mental Status * Because of a physical, mental or emotional condition, does this person have serious difficulty concentrating, remembering or making decisions? Answer Entry Date Author No 11/12/2024 11:12 AM MANUEL Cam Dillon Sher MA documented in this encounter Discharge Instructions * Discharge Instructions* Mikaela Rose RN - 01/07/2025 2:08 PM EDT +++++++++++++++++++++++++++++++++++++ [facility] Discharge Instructions After Anesthesia We appreciate the opportunity to care for you today! Here are a few reminders as you head home. A responsible adult, 18 years or older, must be with you until tomorrow morning. Rest quietly today. You may resume your normal diet as tolerated or as directed by your surgeon. Do not drive or operate any heavy machinery until tomorrow morning or as instructed. Do not make any legal or important decisions for the next 24 hours. Do not drink alcoholic beverages or take sleeping pills for 24 hours unless otherwise directed. If you have any questions or concerns regarding your anesthesia experience, please call our office at . Get Well Soon! [facility] +++++++++++++++++++++++++++++++++++++++++++ [facility] Discharge Instructions - Following Endoscopy A responsible adult, 18 years or older must be in attendance until the next A.M. Rest quietly today. May resume usual diet. Do not drive or operate any machinery until the next A.M., or as instructed. No alcoholic beverages for 24 hours. Do not make any legal or important decisions for the next 24 hours. Call the physician???s office for a follow-up visit or with questions/concerns. Patient discharged to the care of family. ADDITIONAL INSTRUCTIONS: Call Dr. Martinez at [phone] if the following occurs: Colonoscopy: Severe abdominal pains and swelling (mild abdominal cramps and gas pains can be expected), nausea and vomiting, rectal bleeding (with biopsy or polyps a small amount of blood can be expected), body temp. over 101 degrees, chills. EGD: Abdominal pains, cramps, swelling, chest pains, difficulty in swallowing, chills, coughing blood, severe sore throat, or body temp. over 101 degrees. Medications Reviewed No Changes documented in this encounter Medications at Time of Discharge apixaban (ELIQUIS) 5 mg Oral TabletIndications :Antiphospholipid syndrome,History of DVT in adulthood Take 1 Tablet by mouth 2 times daily. 60 Tablet 11 05/03/2024 cyanocobalamin 1,000 mcg/mL Inj SolutionIndicatio ns:Vitamin B 12 deficiency INJECT 1ML INTO MUSCLE EVERY MONTH 3 mL 3 12/13/2024 hydrOXYzine (ATARAX) 25 mg Oral TabletIndications :Anxiety TAKE 1 TABLET BY MOUTH THREE TIMES A DAY NEEDED 90 Tablet 2 09/09/2024 linaCLOtide (LINZESS) 290 mcg Oral CapsuleIndication s:Irritable bowel syndrome with constipation and diarrhea Take 1 Capsule by mouth before breakfast. 90 Capsule 3 05/03/2024 nalOXone (NARCAN) 4 mg/actuation Nasl Mcintosh, Non-Aerosol 1 Mcintosh by Nasal route daily as needed. 08/23/2024 polyethylene glycol (GLYCOLAX) 17 gram/dose Oral PowderIndications :Rectal bleeding,Constipa tion, unspecified constipation type,Dysphagia, unspecified type,Diarrhea, unspecified type Take 17 g by mouth daily. 1700 g 3 01/07/2025 valACYclovir (VALTREX) 1 gram Oral Tablet Take 1,000 mg by mouth. 2024 leflunomide (ARAVA) 20 mg Oral TabletIndications :Rheumatoid arthritis involving multiple sites with positive rheumatoid factor (HCC) Take 1 Tablet by mouth daily. 30 Tablet 1 10/25/2024 5 methotrexate sodium 25 mg/mL Inj SolutionIndicatio ns:Rheumatoid arthritis involving multiple sites with positive rheumatoid factor (HCC) Subcutaneous (Inject under the skin) 0.8 mL every 7 days. INJECT 0.8ML UNDER THE SKIN (SUBCUTANEOUSLY) ONCE A WEEK. 10 mL 10/25/2024 5 predniSONE (DELTASONE) 5 mg Oral TabletIndications :Rheumatoid arthritis involving multiple sites with positive rheumatoid factor (HCC) TAKE 1 TABLET BY MOUTH EVERY DAY 30 Tablet 1 10/14/2024 5 documented as of this encounter Discharge Disposition Disposition Code Departure Means Destination Home or Self Care documented in this encounter H&P Notes * Deja Martinez MD - 01/10/2025 2:00 PM EDT [facility] Gastroenterology Outpatient Pre-Procedural History and Physical Primary Care Physician: Julisa Kerr MD Pre-Procedural Diagnosis: rectal bleeding, constipation, diarrhea, constipation, dysphagia Indication(s) For Procedure: same Procedure Planned: Colonoscopy --diagnostic, Esophagogastroduodenoscopy --diagnostic HISTORY OF PRESENT ILLNESS: Yuliet Trevino is a 54 y.o. female who has a past medical history of Antiphospholipid syndrome, Arthritis, and DVT (deep venous thrombosis) ([facility]LY [facility]) (06/08/2022). who presents for the above procedure. Patient is not on anticoagulation. Past Medical History: Diagnosis Date Antiphospholipid syndrome Arthritis DVT (deep venous thrombosis) (FORMERLY [facility]) 06/08/2022 Right Past Surgical History: Procedure Laterality Date FRACTURE SURGERY 09/29/20 Right elbow surgery HYSTERECTOMY 2001 HYSTEROSCOPY IR 2 LEVEL TRANSFORAMINAL EPIDURAL INJ CERVICAL SPINE 06/2021 JOINT REPLACEMENT 08/24/23 Knee replacement then 02/08/24ip replacement Sep reconstructive right elbow surgery BARBIE AND BSO 09/29/2000 TOTAL HIP ARTHROPLASTY Left 01/30/2024 TOTAL KNEE ARTHROPLASTY Right 08/21/2023 Medications: Current Outpatient Medications on File Prior to Encounter Medication Sig Dispense Refill apixaban (ELIQUIS) 5 mg Oral Tablet Take 1 Tablet by mouth 2 times daily. 60 Tablet 11 cyanocobalamin 1,000 mcg/mL Inj Solution INJECT 1ML INTO MUSCLE EVERY MONTH 3 mL 3 gabapentin (NEURONTIN) 800 mg Oral Tablet Take 1 Tablet by mouth 2 times daily. 60 Tablet 2 hydrOXYzine (ATARAX) 25 mg Oral Tablet TAKE 1 TABLET BY MOUTH THREE TIMES A DAY NEEDED 90 Tablet2 leflunomide (ARAVA) 20 mg Oral Tablet Take 1 Tablet by mouth daily. 30 Tablet 1 linaCLOtide (LINZESS) 290 mcg Oral Capsule Take 1 Capsule by mouth before breakfast. 90 Capsule 3 methotrexate sodium 25 mg/mL Inj Solution Subcutaneous (Inject under the skin) 0.8 mL every 7 days.INJECT 0.8ML UNDER THE SKIN (SUBCUTANEOUSLY) ONCE A WEEK. 10 mL 0 nalOXone (NARCAN) 4 mg/actuation Nasl Mcintosh, Non-Aerosol 1 Mcintosh by Nasal route daily as needed. polyethylene glycol (GLYCOLAX) 17 gram/dose Oral Powder Take 17 g by mouth daily. 1700 g 3 polyethylene glycol (GOLYTELY) 236-22.74-6.74 -5.86 gram Oral Recon Soln take as directed by doctor's office 4000 mL 0 predniSONE (DELTASONE) 5 mg Oral Tablet TAKE 1 TABLET BY MOUTH EVERY DAY 30 Tablet 1 valACYclovir (VALTREX) 1 gram Oral Tablet Take 1,000 mg by mouth. No current facility-administered medications on file prior to encounter. Allergies: Allergies Allergen Reactions Orencia [Abatacept (With Maltose)] Swelling and Other (See Comments) Facial tingling/ numbness Abatacept Other (See Comments) Celecoxib Other (See Comments) Tocilizumab Other (See Comments) Cefdinir Other (See Comments) Bad abdominal cramping Enbrel [Etanercept] Itching Humira [Adalimumab] Itching Infliximab Other (See Comments) Pustule pimples itching Mobic [Meloxicam] Hives Xeljanz [Tofacitinib] Itching Family History Problem Relation Age of Onset Arthritis Father Arthritis Paternal Grandmother Arthritis Mother Heart disease Diabetes Mother Heart Disease Mother Social History Socioeconomic History Marital status: Spouse name: Not on file Number of children: Not on file Years of education: Not on file Highest education level: Not on file Occupational History Not on file Tobacco Use Smoking status: Never Passive exposure: Never Smokeless tobacco: Never Vaping Use Vaping status: Never Used Substance and Sexual Activity Alcohol use: Not Currently Comment: Only occasionally Drug use: Never Sexual activity: Not Currently Partners: Male control/protection: Post-menopausal Comment: Hysterectomy Other Topics Concern Not on file Social History Narrative Not on file Social Drivers of Health Financial Resource Strain: Not on file Food Insecurity: Not on file Transportation Needs: Not on file Physical Activity: Not on file Stress: Not on file Social Connections: Not on file Intimate Partner Violence: Not on file Housing Stability: Not on file PHYSICAL EXAM: Vitals: There were no vitals taken for this visit. CONSTITUTIONAL: No apparent distress, and appears stated age EYES: PERRL, EOMI, no scleral icterus ENT/MOUTH: MMM, adequate hearing, speech intact RESPIRATORY: No increased work of breathing, no cough GI: Non-distended MUSCULOSKELETAL: There is no redness, warmth, or swelling of the visualized joints. Range of motionis normal. SKIN: Normal skin color, texture, turgor, no jaundice. NEUROLOGIC: Patient is awake, alert, and cooperative. Cranial nerves II-XII are grossly intact. No tremors noted. PSYCHIATRIC: Normal affect, pleasant mood DATA: Lab Results Component Value Date WBC 10.8 (H) 12/31/2024 HGB 13.3 12/31/2024 HCT 42.5 12/31/2024 PLT 409 (H) 12/31/2024 CHOLESTEROL 190 05/06/2024 TRIG 149 05/06/2024 HDL 55 05/06/2024 LDLCALC 109 (H) 05/06/2024 ALT 11 12/31/2024 AST 19 12/31/2024 NA 141 12/31/2024 K 3.8 12/31/2024 CL 105 12/31/2024 CALCIUM 9.6 12/31/2024 BUN 9 12/31/2024 CREATININE 0.64 12/31/2024 GFRCKDEPI 104 12/31/2024 CO2 24 12/31/2024 INR 0.96 01/28/2024 GLUCOSE 83 11/23/2019 GLU 106 (H) 12/31/2024 HGBA1C 6.1 (H) 05/06/2024 TSH 0.434 05/06/2024 TSHREFLEX 1.130 05/14/2023 RUCX18BJ 29.7 (L) 07/01/2017 Lab Results Component Value Date INR 0.96 01/28/2024 INR 1.16 08/18/2023 Last Oral Intake: Yesterday Previous Anesthesia Reaction: no Pre-Procedure Assessment: Risks, benefits, potential complications (including but not limited to missed lesions, sedation, bleeding and perforation) and alternatives were discussed with the patient or patient's legally authorized parts representative. The patient's pre-procedural physical assessment indicates that the patient is suitable for and agrees to the planned sedation and procedure. Cardiovascular and Vital signs Stable: yes Adequate/Patient Oral Airway yes ASA: 2 ASSESSMENT / PLAN: Yuliet Trevino is a 54 y.o. female who presents for the above specified procedure. Deja Martinez MD [facility] documented in this encounter Plan of Treatment Upcoming Encounters Date Type Department Care Team (Late st Contact Info) Description 05/09/2025 11:00 AM EDT Appointment [address] [place] [address] 05/09/2025 11:15 AM EDT Appointment [address] [place] [address] Susana Garay MD [address] [place] [address] [place] [address] 05/13/2025 2:15 PM EDT Office Visit [facility] [address] [place] [address] Jessica Cortes MD [address] [facility] [address] [place] [address] documented as of this encounter Goals Goal Patient Goal Type Associated Problems Recent Progress Patient-Stated? Author Maintain a healthy diet, exercise regularly and maintain an ideal body weight General No Porsche Jeffery, RN documented as of this encounter Procedures Procedure Name Priority Date/Time Associated Diagnosis Comments ESOPHAGOGASTRODUODENOSCOPY (EGD) Routine 01/10/2025 3:17 PM EDT Dysphagia, unspecified type Diarrhea, unspecified type COLONOSCOPY Routine 01/10/2025 3:17 PM EDT Rectal bleeding Constipation, unspecified constipation type PATHOLOGY TISSUE REQUEST Routine 025 2:40 PM EDT Rectal bleeding Constipation, unspecified constipation type Dysphagia, unspecified type Diarrhea, unspecified type documented in this encounter Results * ESOPHAGOGASTRODUODENOSCOPY (EGD) (01/10/2025 3:17 PM EDT) Anatomical Region Laterality Modality Endoscopy Narrative 01/10/2025 2:52 PM EDT Table formatting from the original result was not included. Findings Performed multiple random forceps biopsies in the duodenal bulb and 2nd part of the duodenum to rule out celiac disease and H. pylori Mild, patchy erythematous mucosa in the body of the stomach, incisura and antrum, consistent with gastritis; performed cold forceps biopsy to rule out H. pylori Non-obstructing Schatzki ring in the GE junction; performed cold forceps biopsy; dilated with Savary-Yoli dilator using guidewire from 60 Fr starting size Large hiatal hernia without Zurdo lesions present Recommendation Await pathology results If no improvement s/p dilation consider EM with 24 hr pH. Pre-Procedure Diagnosis / Indication Dysphagia, unspecified type, Diarrhea, unspecified type Post-Procedure Diagnosis None Staff Staff Role Suni Mckinney RN Integrated Logistics Operations Manager Phyllis Collado RN Endoscopy Nurse Jose Martin Moreland, WORKFORCE CONSULTANT WORKFORCE CONSULTANT Deja Martinez MD Performing Provider Bebeto Cantu DO Anesthesiologist Medications See Anesthesia Record. Preprocedure A history and physical has been performed, and patient medication allergies have been reviewed. The patient's tolerance of previous anesthesia has been reviewed. The risks and benefits of the procedure and the sedation options and risks were discussed with the patient. All questions were answered and informed consent obtained. ASA 3 - Patient with severe systemic disease Details of the Procedure The patient underwent monitored anesthesia care, which was administered by an anesthesia professional. The patient's blood pressure, heart rate, level of consciousness, oxygen, respirations, ECG and ETCO2 were monitored throughout the procedure. The scope was introduced through the mouth and advanced to the second part of the duodenum. Retroflexion was performed in the cardia. The patient's estimated blood loss was minimal (<5 mL). The procedure was not difficult. The patient tolerated the procedure well. There were no apparent adverse events. Patient provided education and educated on specific discharge instructions. Patient educated on medications given during the procedure and new medications for discharge. Patient verbalizes understanding of discharge education. Patient stable and awaiting transport for discharge. Events Procedure Events Event Event Time Specimens ID Type Source Tests Collected by Time 1 : duodenal biopsies via forceps Tissue Small Intestine, Duodenum PATHOLOGY TISSUE REQUEST Deja Martinez MD 01/10/2025 1440 2 : gastric biopsies via forceps Tissue Gastric PATHOLOGY TISSUE REQUEST Deja Martinez MD 01/10/2025 1440 3 : gastroesophageal junction biopsies via forceps Tissue Gastroesophageal Junction PATHOLOGY TISSUE REQUEST Deja Martinez MD 01/10/2025 1446 Anesthesia Event Time In Patient In - Proc. Room 02:23 PM Deja Martinez MD ENDOSCOPY PROCEDURE ORDERAB LES Final Result * COLONOSCOPY (01/10/2025 3:17 PM EDT) Anatomical Region Laterality Modality Endoscopy Narrative 01/10/2025 3:19 PM EDT Table formatting from the original result was not included. Findings Multiple medium, scattered diverticula of moderate severity in the sigmoid colon Internal small hemorrhoids Recommendation Repeat screening colonoscopy in 10 years, due: 01/08/2035 Pre-Procedure Diagnosis / Indication Rectal bleeding, Constipation, unspecified constipation type Post-Procedure Diagnosis None Staff Staff Role Suni Mckinney RN Integrated Logistics Operations Manager Amando Vega DO Anesthesiologist Phyllis Collado RN Endoscopy Nurse Jose Martin Moreland, WORKFORCE CONSULTANT BRITTNY Martinez MD Performing Provider Bebeto Cantu DO Anesthesiologist Medications See Anesthesia Record. Preprocedure A history and physical has been performed, and patient medication allergies have been reviewed. The patient's tolerance of previous anesthesia has been reviewed. The risks and benefits of the procedure and the sedation options and risks were discussed with the patient. All questions were answered and informed consent obtained. ASA 3 - Patient with severe systemic disease Details of the Procedure The patient underwent monitored anesthesia care, which was administered by an anesthesia professional. The patient's blood pressure, heart rate, level of consciousness, oxygen, respirations, ECG and ETCO2 were monitored throughout the procedure. A digital rectal exam was performed. The scope was introduced through the anus and advanced to the cecum. Retroflexion was performed in the rectum. Bowel prep was adequate. The patient experienced no blood loss. The procedure was not difficult. The patient tolerated the procedure well. There were no apparent adverse events. Patient provided education and educated on specific discharge instructions. Patient educated on medications given during the procedure and new medications for discharge. Patient verbalizes understanding of discharge education. Patient stable and awaiting transport for discharge. Events Procedure Events Event Event Time ENDO SCOPE IN TIME 01/10/2025 2:39 PM ENDO SCOPE OUT TIME 01/10/2025 2:50 PM ENDO SCOPE IN TIME 01/10/2025 2:58 PM ENDO CECUM REACHED 01/10/2025 3:02 PM ENDO SCOPE OUT TIME 01/10/2025 3:14 PM Specimens ID Type Source Tests Collected by Time 1 : duodenal biopsies via forceps rule out celiac disease and H pylori Tissue Small Intestine, Duodenum PATHOLOGY TISSUE REQUEST Deja Martinez MD 01/10/2025 1440 2 : gastric biopsies via forceps rule out H pylori Tissue Gastric PATHOLOGY TISSUE REQUEST Deja Martinez MD 01/10/2025 1440 3 : gastroesophageal junction biopsies via forceps Tissue Gastroesophageal Junction PATHOLOGY TISSUE REQUEST Deja Martinez MD 01/10/2025 1446 Anesthesia Event Time In Patient In - Proc. Room 02:23 PM Patient Out - Proc. Room 03:17 PM Deja Martinez MD ENDOSCOPY PROCEDURE ORDERAB LES Final Result * PATHOLOGY TISSUE REQUEST (01/10/2025 2:40 PM EDT) CASE REPORT Surgical Pathology Case: [id number] Authorizing Provider: Deja Martinez MD Collected: 01/10/2025 1440 Ordering Location: [facility] Received: 01/10/2025 1722 Pathologist: Mel Biswas MD Specimens: A) - Small Intestine, Duodenum, duodenal biopsies via forceps rule out celiac disease and H pylori B) - Gastric, gastric biopsies via forceps rule out H pylori C) - Gastroesophageal Junction, gastroesophageal junction biopsies via forceps 01/12/2025 8:15 AM EDT [facility] FINAL DIAGNOSIS A. DUODENUM, BIOPSY: - Duodenal mucosa, no significant pathologic changes. - No evidence of celiac sprue, parasites, activity, granulomas, dysplasia or malignancy. B. STOMACH, GASTRIC BIOPSY: - Gastric mucosa with reactive/regenerat zoie changes. - Negative for H. pylori organisms by H&E slide. - No evidence of activity, intestinal metaplasia, dysplasia or malignancy. C. 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 - Background changes compatible with gastroesophageal reflux disease (GERD). - No evidence of dysplasia or malignancy. 01/12/2025 8:15 AM EDT [facility] at 0815 EDT GROSS DESCRIPTION A. Received in formalin, labeled with patient's name, MRN, and duodenal biopsies are multiple fragments of gallagher-white friable tissue, ranging from 0.1 -0.3 cm. The tissue is submitted in toto in one cassette. PHYLLIS Moe PA (ASC) B. Received in formalin, labeled with patient's name, MRN, and gastric biopsies are 5 fragments of gallagher-white friable tissue, ranging from 0.1-0.3 cm. The tissue is submitted in toto in one cassette. PHYLLIS Moe PA (ASCP) C. Received in formalin, labeled with patient's name, MRN, and gastroesophageal junction biopsy are 5 fragments of gallagher-white friable tissue, ranging from 0.2-0.4 cm. The tissue is submitted in toto in one cassette. PHYLLIS Moe PA (ASCP) 01/12/2025 8:15 AM EDT [facility] MICROSCOPIC DESCRIPTION The microscopic examination may have been rendered in whole, or in part, by analyzing high-resolution digital images (whole slide images) on the [employer] Digital Pathology platform validated at [facility]. 01/12/2025 8:15 AM EDT [facility] EMBEDDED IMAGES 01/12/2025 8:15 AM EDT [facility] Tissue DUODENAL STRUCTURE / Unknown 01/10/2025 2:40 PM EDT 01/10/2025 5:22 PM EDT Tissue specimen (specimen) STOMACH STRUCTURE / Unknown 01/10/2025 2:40 PM EDT 01/10/2025 5:22 PM EDT Tissue specimen (specimen) CARDIOESOPHAGEAL JUNCTION STRUCTURE / Unknown 01/10/2025 2:46 PM EDT 01/10/2025 5:22 PM EDT us Deja Martinez MD PATHOLOGY ORDERABLES Final Result [facility] [address] [phone] documented in this encounter Visit Diagnoses Diagnosis Rectal bleeding Hemorrhage of rectum and anus Constipation, unspecified constipation type Dysphagia, unspecified type Diarrhea, unspecified type documented in this encounter Administered Medications Inactive Administered Medications - up to 1 most recent administrations Medication Order MAR Action Action Date Dose Rate Site lactated ringers infusion Intravenous, at 50 mL/hr, ONCE, 1 dose, On 01/10/25 at 1245, Pre-procedure(ENDO) New Bag 01/10/2025 12:59 PM EDT 50 mL/hr documented in this encounter Discontinued Medications Medication Sig Discontinue Reason Start Date End Da te polyethylene glycol (GOLYTELY) 236-22.74-6.74 -5.86 gram Oral Recon Soln take as directed by doctor's office Removed During Admission Medication Review 01/07/2025 01/10/2025 documented as of this encounter Orders Medications Ordered That Kevin ht Not Have Been Administered Count Last Ordered Date First Ordered Date lactated ringers infusion 1 01/10/2025 documented in this encounter Care Teams Supervisor Final Relationship Specialty Start Date End Date Julisa Kerr MD [address] [place] [address] PCP - General 02/22/11 Jessica Cortes MD [address] [address] Internal Medicine-Rheumatology 04/26/16 Susana Garay MD [address] [place] [address] Medical Oncologist Internal Medicine-Hematology and Oncology 10/14/22 documented as of this encounter
--- OUTSIDE RECORDS SUMMARY | 2025-01-10 14:33 | XMS_ITS | Encounter Summary ---
Author Organization [place] [address] Care Team Providers Care Rate Analyst Name Role Phone Julisa Kerr MD Primary Care Provider Jessica Cortes MD Unavailable [phone] Susana Garay MD Unavailable [phone] Encounter Details Date Type Department Care Team (Late st Contact Info) Description 01/10/2025 2:33 PM EDT Anesthesia Event [facility] [address] [place] [address] Amando Vega, DO [address] [place], [place] [id number] Brianna De La Paz MD [address] [place] [address] [address] [place], [place] [id number] Anesthesia Record Procedure Summary Procedure Name Responsible Anesthesiologist Anesthesia Start Time Anesthesia Stop Time COLONOSCOPY Amando Vega DO 01/10/25 1433 12/28 01/21 1518 Events Date Time Event Comment 01/10/2025 1250 AN Equip Check 1408 1433 An Start 1433 An Start Data 1433 Start Supplemental O2 Disabl es direct capture of O2 [ANES AGENT O2 [6093805221] and Air flow [ANES AGENT AIR [[id number]] variables into chart. 1435 Immediate Pre Anesthetic Ass es 1435 Anesthesia Ready 1439 Time out 1439 Incision 1516 an stop data 1518 An Stop 1518 Handoff I completed my SBAR handoff to the receiving nurse which has included the followin. Identification of the patient, family, or patient surrogate 2. Identification of the responsible practitioner 3. Pertinent medical history 4. Surgical procedure and reason for procedure 5. Intraoperative anesthetic management 6. All current lines, drains and respiratory support. 7. Outstanding follow up orders (X-rays, consults etc) 8. Expectations/Plans for the early post-procedure period 9. 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 Lines, Drains, and Airways Type Details Placement Removal Peripheral IV 01/10/25; 1259; 20; Posterior, Right; Hand; Dulce Howard RN; 1; 01/10/25; 1551 01/10/25 1259 by Juan Luis Howard RN 01/10/25 1551 by Mikaela Rose RN documented in this encounter Social History Tobacco [...] Assessment Author No 11/12/2024 11:12 AM Dillon Blkae MA * Does this person have difficulty dressing or bathing? Answer Date of Assessment Author No 11/12/2024 11:12 AM Dillon Blake MA * Because of a physical, mental or emotional condition, does this person have difficulty doing errands alone such as visiting a doctor's office or shopping? Answer Date of Assessment Author No 11/12/2024 11:12 AM Dillon Blake MA documented as of this encounter Mental Status * Because of a physical, mental or emotional condition, does this person have serious difficulty concentrating, remembering or making decisions? Answer Entry Date Author No 11/12/2024 11:12 AM Dillon Blake MA documented in this encounter OR Notes * Anesthesia Postprocedure Evaluation - Amando Vega DO - 01/10/2025 3:55 PM EDT Post-Anesthesia Evaluation Note Patient Name: Yuliet Newsome Patient Date: January 10, 2025 Post-Anesthesia Evaluation Post op vitals: stable Difficult airway: no Nausea controlled: yes Level of consciousness: awake Post anesthesia pain: adequate analgesia Airway patency: patent Respiratory status: room air Cardiovascular status: stable Hydration status: euvolemic Temperature: Normothermia Perioperative complications: NONE Vitals Value Taken Time BP 130/87 01/10/25 15:45 Resp 18 01/10/25 15:45 SpO2 98 % 01/10/25 15:45 Temp 36.2 ??C (97.2 ??F) 01/10/25 15:20 Pulse 74 01/10/25 15:45 * Anesthesia Preprocedure Evaluation - Bebeto Cantu DO - 01/07/2025 2:08 PM EDT Images from the original note were not included. Pre-Anesthesia Evaluation Note Patient Name: Yuliet Newsome Sex: female Patient : 1970 Age: 54 y.o. Patient Date: January 07, 2025 COLONOSCOPY ESOPHAGOGASTRODUODENOSCOPY (EGD) Anesthesia Evaluation Previous anesthesia. 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 Anesthesia Plan ASA 3 Last solid intake: The patient has not eaten within the last 8 hours. Last clear liquid intake: The patient has not had clear liquids within the last 2 hours. Anesthesia Plan: MAC Induction: intravenous Monitors: STD Informed consent Anesthetic plan and risks discussed with: patient. Chart Reviewed and patient examinedPostop ventilation support discussed?: No; documented in this encounter Plan of Treatment Upcoming Encounters Date Type Department Care Team (Late st Contact Info) Description 05/09/2025 11:00 AM EDT Appointment [address] [place] [address] 05/09/2025 11:15 AM EDT Appointment [address] [place] [address] Susana Garay MD [address] [facility] [address] [place] [id number] 05/13/2025 2:15 PM EDT Office Visit [facility] [address] [facility] [address] [place] [id number] Jessica Cortes MD [address] [facility] Building [address] [place], [place] [id number] documented as of this encounter Goals Goal [...] MAR Action Action Date Dose Rate Site lidocaine 1% 10 mg/mL (1 %) injection Intravenous, PRN (Anesthesia), Starting on Fri01/10/25 at 1434, Until Fri01/10/25 at 1518, Anesthesia Intra-op Given 01/10/2025 2:34 PM EDT 50 mg propofol (DIPRIVAN) infusion 10 mg/mL Intravenous, CONTINUOUS PRN, Starting on Fri01/10/25 at 1434, Until Fri01/10/25 at 1518, Anesthesia Intra-op Rate/Dose Change 01/10/2025 3:04 PM EDT 75 mcg/kg/min 27.72 mL/hr propofoL (DIPRIVAN) injection Intravenous, PRN (Anesthesia), Starting on Fri01/10/25 at 1435, Until Fri01/10/25 at 1518, Anesthesia Intra-op Given 01/10/2025 2:35 PM EDT 30 mg documented in this encounter Care Teams Rate Analyst Relationship Specialty Start Date End Date Julisa Kerr MD [address] [place] [address] PCP - General 02/22/11 Jessica Cortes MD [address] [address] Internal Medicine-Rheumatology 04/26/16 Susana Garay MD [address] [place] [address] [place] [address] Medical Oncologist Internal Medicine-Hematology and Oncology 10/14/22 documented as of this encounter
--- OUTSIDE RECORDS SUMMARY | 2025-01-25 09:00 | XMS_ITS | Encounter Summary ---
Author Organization [place] [address] Care Team Providers Care Funding Analyst Name Role Phone Julisa Kerr MD Primary Care Provider [phone] Jessica Cortes MD Unavailable [phone] Susana Garay MD Unavailable [phone] Reason for Visit * Oncology Medication Prior Authorization (Routine) - Authorized Specialty Diagnoses / Procedures Referred By Contac t Referred To Contact Oncology Diagnoses Rheumatoid arthritis involving multiple sites with positive rheumatoid factor (HCC) Age-related osteoporosis without current pathological fracture Procedures MI INJ., RITUXIMAB, 10 MG MI INJ TRUXIMA 10 MG Jessica Cortes MD [address] [address] Phone: tel: fax: [address] [place] [address] Phone: tel: fax: Referral ID Status Reason Start Date Expiration Date V isits Requested Visits Authorized [id number] Authorized 07/23/2024 07/23/2025 1 99 Encounter Details Date Type Department Care Team (Latest Contact Info) Description 01/25/2025 9:00 AM EDT - 01/25/2025 11:59 PM EDT Hospital Encounter [address] [place] [address] Rheumatoid arthritis involving multiple sites with positive rheumatoid factor (HCC) (Primary Dx) Discharge Disposition: Home or [...] Sign Reading Time Taken Comments Blood Pressure 122/82 01/25/2025 10:00 AM EDT Pulse 89 01/25/2025 10:00 AM EDT Temperature 36.5 C (97.7 F) 01/25/2025 10:00 AM EDT Respiratory Rate 18 01/25/2025 10:00 AM EDT Oxygen Saturation 100% 01/25/2025 10:00 AM EDT Inhaled Oxygen Concentration - - Weight 63 kg (139 lb) 01/25/2025 9:21 AM EDT Height - - Body Mass Index 21.13 01/10/2025 12:54 PM EDT documented in this [...] Dillon Blake MA documented in this encounter Medications [...] A DAY NEEDED 90 Tablet 2 09/09/2024 leflunomide (ARAVA) 20 mg Oral TabletIndications :Rheumatoid arthritis involving multiple sites with positive rheumatoid factor (HCC) TAKE 1 TABLET BY MOUTH EVERY DAY 30 Tablet 1 01/19/2025 linaCLOtide (LINZESS) 290 mcg Oral CapsuleIndication s:Irritable bowel syndrome with constipation and diarrhea Take 1 Capsule by mouth before breakfast. 90 Capsule 3 05/03/2024 methotrexate sodium 25 mg/mL Inj SolutionIndicatio ns:Rheumatoid arthritis involving multiple sites with positive rheumatoid factor (HCC) SUBCUTANEOUS (INJECT UNDER THE SKIN) 0.8 ML EVERY 7 DAYS. INJECT 0.8ML UNDER THE SKIN (SUBCUTANEOUSLY) ONCE A WEEK. 10 mL 01/19/2025 nalOXone (NARCAN) 4 mg/actuation Nasl [place], Non-Aerosol 1 [place] by Nasal route daily as needed. 08/23/2024 polyethylene glycol (GLYCOLAX) 17 gram/dose Oral PowderIndications :Rectal bleeding,Constipa tion, unspecified constipation type,Dysphagia, unspecified type,Diarrhea, unspecified type Take 17 g by mouth daily. 1700 g 3 01/07/2025 predniSONE (DELTASONE) 10 mg Oral Tablet Take 3 tablets daily x 5 days then 2 tablets daily x 5 days then 1 tablet daily x 5 days then stop. 30 Tablet 01/25/2025 predniSONE (DELTASONE) 5 mg Oral TabletIndications :Rheumatoid arthritis involving multiple sites with positive rheumatoid factor (HCC) TAKE 1 TABLET BY MOUTH EVERY DAY 30 Tablet 1 01/12/2025 valACYclovir (VALTREX) 1 gram Oral Tablet Take 1,000 mg by mouth. 2024 documented as of this encounter Discharge Disposition Disposition Code Departure Means Destination Home or Self Care documented in this encounter Miscellaneous Notes * Patient Instructions - Rosibel Musa RN - 01/25/2025 9:00 AM EDT [facility] Discharge Instructions Thank you for entrusting the [facility] with your care. We hope you are pleased with your outpatient care and services. Because we are most concerned with your health, we suggest you carefully read the following discharge instructions: Your Discharge Instructions: MEDICATION INSTRUCTIONS: Treatment received today: reclast Reviewed medications administered today and possible side [...] - Friday 8:00 AM - 4:30 PM. [facility] [place] [id number] [place] Mark Quezada [address] [address] documented in this encounter Plan of Treatment Upcoming Encounters Date Type Department Care Team (Late st Contact Info) Description 05/09/2025 11:00 AM EDT Appointment [facility] [place] [address] 05/09/2025 11:15 AM EDT Appointment [facility] [place] [address] [place] [address] Susana Garay MD [address] [facility] [place] [address] 05/13/2025 2:15 PM EDT Office Visit [facility] [address] [place] [address] Jessica Cortes MD [address] [place] [address] documented as of this encounter [...] MAR Action Action Date Dose Rate Site sodium chloride 0.9% syringe Intravenous, PRN, Starting on Fri01/25/25 at 0911, Until Fri01/27/25 at 0404, Line Care, Flush after IV medication, Dx: 1. Rheumatoid arthritis involving multiple sites with positive rheumatoid factor (HCC)Indications:Rheumatoid arthritis involving multiple sites with positive rheumatoid factor (HCC) Given 01/25/2025 10:00 AM EDT 20 mL zoledronic acid (RECLAST) 5 mg/100 mL IVPB 5 mg 5 mg, Intravenous, at 300 mL/hr, ONCE, 1 dose, On Fri01/25/25 at 0930, Dx: 1. Rheumatoid arthritis involving multiple sites with positive rheumatoid factor (HCC)Indications:Rheumatoid arthritis involving multiple sites with positive rheumatoid factor (HCC) IV Started 01/25/2025 9:32 AM EDT 5 mg 300 mL/ hr documented in this encounter Care Teams Funding Analyst Relationship Specialty Start Date End Date Julisa Kerr MD [address] [place] [address] PCP - General 02/22/11 Jessica Cortes MD 651 [facility] [address] [place] [address] Internal Medicine-Rheumatology 04/26/16 Susana Garay MD [address] [facility] [place] [place] [address] Medical Oncologist Internal Medicine-Hematology and Oncology 10/14/22 documented as of this encounter
--- OUTSIDE RECORDS SUMMARY | 2025-01-31 10:45 | XMS_ITS | Encounter Summary ---
Author Organization [facility] [place] [address] Care Team Providers Care Security Engineer Name Role Phone Julisa Kerr MD Primary Care Provider [phone] Jessica Cortes MD Unavailable [phone] Susana Garay MD Unavailable [phone] Reason for Visit * Reason Comments Follow-up Rheumatoid arthritis involving multiple sites with positive rheumatoid factor (HCC)Raynaud's phenomenon without gangrenePositive BRET (antinuclear antibody)Sicca syndrome (HCC)Neck painAge-related osteoporosis without current pathological fracturePostmenopausal statePrimary osteoarthritis involving multiple jointsPrimary osteoarthritis of both hipsAntiphospholipid syndrome (HCC)Immunocompromised patient (HCC)Therapeutic drug monitoringTuberculosis screening Encounter Details Date Type Department Care Team (Latest Contact Info) Description 01/31/2025 10:45 AM EDT Telemedicine [facility] [address] [place] [address] Jessica Cortes MD [address] [place] [id number] Rheumatoid arthritis involving multiple sites with positive rheumatoid factor (HCC) (Primary Dx); Raynaud's phenomenon without gangrene; Positive BRET (antinuclear antibody); Sicca syndrome (HCC); Neck pain; Age-related osteoporosis without current pathological fracture; Postmenopausal state; Primary osteoarthritis involving multiple joints; Primary osteoarthritis of both hips; Antiphospholipid syndrome (HCC); Immunocompromised patient (HCC); Therapeutic drug monitoring; Tuberculosis screening; Colon cancer screening; History of lower GI bleeding Discharge Disposition: Home or Self Care Social [...] Dillon Blake MA documented in this encounter Discharge Disposition Disposition Code Departure Means Destination Home or Self Care documented in this encounter Progress Notes * Jessica Cortes MD - 01/31/2025 10:45 AM EDT Subjective Subjective: Patient ID: Yuliet Trevino is a 54 y.o. female. Chief Complaint Patient presents with Follow-up Rheumatoid arthritis involving multiple sites with positive rheumatoid factor (HCC) Raynaud's phenomenon without gangrene Positive BRET (antinuclear antibody) Sicca syndrome (HCC) Neck pain Age-related osteoporosis without current pathological fracture Postmenopausal state Primary osteoarthritis involving multiple joints Primary osteoarthritis of both hips Antiphospholipid syndrome (HCC) Immunocompromised patient (HCC) Therapeutic drug monitoring Tuberculosis screening HPI The patient comes in for follow up regarding RA. Symptoms started in 2002. Seen by Film Library Clerk, Dr. Astorga. She was seen in [facility] but have not seen her [...] thata video visit does not replace a [id number] exam and further services may be necessary. I advisedthe patient that we are conducting his video visit through our office in a private space on our secure network and this video visit is being conducted in accordance with [facility] telehealth/video visit regulations. Patient had no questions prior to initiation of the visit. Started Rituximab 1000 mg IV q 2 weeks on 08/17 and 08/31/24. During the first infusion developed pain all over, hands cramping, and ankle tightness. Infusion was held till symptoms improved and restarted at the slower rate. With the 2nd infusion she had some rectal bleeding. It was not much, went on for 2 weeks and resolved. Had EGD, and colonoscopy on 01/10/25. EGD showed gastritis, colonoscopy showed multi[le scattered diverticula of moderate severity in the sigmoid colon, internal hemorrhoids. She can tell Rituximab has wore off. In the last 2 weeks she has been having more pain. She has been taking more prednisone Joint pain: fingers, wrists, shoulders Joint swelling: knuckles, wrist- better than they used to be Dry eyes - stable, not too bad. Uses eye drops. Dry mouth - not much Type of pain: ache Morning stiffness: 30 minutes Raynaud's: more active weather Fell in July 2024 after getting dizzy and broke her right hip and wrist. Current therapy: MTX 20 mg weekly, Arava 20 mg daily, Rituximab 1000 mg IV q 2 weeks every 4-6 months, 1st series on 08/17 and 08/31/24, folic acid 1 mg daily, prednisone 5 [...] to GI issues Arava 20 mg daily, Simponi 100 mg sq q month started around 02/10/22, on hold between 12/2023 and 04/19/24 due to hip replacement, restarted 04/19/24, stopped 06/2024 Patients past medical, family and social histories [...] UNDER THE SKIN) 0.8 ML EVERY 7 DAYS.INJECT 0.8ML UNDER THE SKIN (SUBCUTANEOUSLY) ONCE A WEEK. 10 mL 0 nalOXone (NARCAN) 4 mg/actuation Nasl [place], Non-Aerosol 1 [place] by Nasal route daily as needed. polyethylene glycol (GLYCOLAX) 17 gram/dose Oral Powder Take 17 g by mouth daily. 1700 g 3 predniSONE (DELTASONE) 10 mg Oral Tablet Take 3 tablets daily x 5 days then 2 tablets daily x 5 days then 1 tablet daily x 5 days then stop. 30 Tablet 0 predniSONE (DELTASONE) 5 mg Oral Tablet TAKE 1 TABLET BY MOUTH EVERY DAY 30 Tablet 1 valACYclovir (VALTREX) 1 gram Oral Tablet Take 1,000 mg by mouth. No current facility-administered medications on file prior to visit. Review of Systems Constitutional: Positive for fatigue. HENT: Dry mouth Eyes: Dry eyes Musculoskeletal: Positive for arthralgias, joint swelling and myalgias. All other systems reviewed and are negative. Objective Objective: There were no vitals filed for this visit. There is no height or weight on file to calculate BMI. Physical Exam Constitutional: Appearance: She is well-developed. HENT: Head: Normocephalic and atraumatic. Musculoskeletal: Comments: Synovitis in the wrists and 2nd, 3rd right MCP visible through video. Neurological: Mental Status: She is alert. Psychiatric: Mood and Affect: Mood normal. Lab Results Component Value Date WBC 10.8 (H) 12/31/2024 HGB 13.3 12/31/2024 HCT 42.5 12/31/2024 MCV 85.5 12/31/2024 PLT 409 (H) 12/31/2024 Chemistry Component Value Date/Time NA 141 12/31/2024 1051 NA 138 11/23/2019 0000 K 3.8 12/31/2024 1051 K 4.6 11/23/2019 0000 CL 105 12/31/2024 1051 CL 102 11/23/2019 0000 CO2 24 12/31/2024 1051 CO2 27 11/23/2019 0000 BUN 9 12/31/2024 1051 BUN 11 11/23/2019 0000 CREATININE 0.64 12/31/2024 1051 CREATININE 0.7 11/23/2019 0000 GLU 106 (H) 12/31/2024 1051 GLU 103 (H) 07/01/2017 1532 Component Value Date/Time CALCIUM 9.6 12/31/2024 1051 CALCIUM 9.60 11/23/2019 0000 ALKPHOS 100 12/31/2024 1051 ALKPHOS 112 11/23/2019 0000 AST 19 12/31/2024 1051 AST 20 11/23/2019 0000 ALT 11 12/31/2024 1051 ALT 9 11/23/2019 0000 BILITOT 0.2 11/23/2019 0000 Lab Results Component Value Date CRP 27.77 (H) 12/31/2024 Lab Results Component Value Date SEDRATE 25 12/31/2024 XR KNEE LEFT AP LAT INT EXT [...] ANKLE RIGHT WO CONTRAST 05/18/2024 3:37 PM IMPRESSION: 1. Nonspecific tibiotalar synovitis with significant [...] [address] Astorga in [facility]. The patient was seen in 05/11/13 for initial evaluation. Presented with polyarticular joint involvement- large and small joints- shoulders, elbows, knees, wrists, knuckles, toes. Per records she had low titer (+) RF, (-) CCP, (+) BRET centromere pattern > 8.0 with negative SSA/SSB, SK[employer] MAN, Scl 70, dsDNA Records indicate she used [...] month. Arava increased to 20 mg daily 06/20/23, off since 09/2023, run out and did not realize it Stopped Prednisone 5 mg daily due to weight gain and the fact it stopped helping Synovitis in the exam in 12/2023 in the wrists, 5th right MCP, 4th, 5th right PIP, moderate synovitis in the 1st, 2nd, 5th left MCP, 3rd left PIP. Restarted Arava 20 mg daily 12/2023 MTX 20 mg weekly. Simponi 100 mg q month on hold between 12/2023 and 03/2024 due to left hip replacement surgery She had mild synovitis in the wrists and 2nd MCP bilaterally as well as 3rd left PIP visible through video on 04/19/24 Restarted Simponi 100 mg q month 04/19/24 Very active disease despite being on MTX, Arava and Simponi regularly She continued to have significant synovitis in the wrists,1st, 2nd MCP bilaterally, 3rd left MCP, 5th MCP bilaterally, 4th right PIP, 3rd left PIP, right ankle, both metatarsal areas on 07/19/24. MRI of the ankle 05/18/24 showed moderate effusion and tibiotalar synovitis with significant synovial thickening/proliferation. Simponi changed to Rituximab 1000 mg IV q 2 weeks every 4-6 months. 1st series on 08/17 and 08/31/24 Symptomatically much better. Symptoms worsened in the last 2 weeks but the swelling is not as bad as it used to be. Plan to infuse Rituximab 1000 mg q 2 weeks again as soon as approved. No contraindications based onthe recent EGD and colonoscopy Continue MTX 20 mg q week Continue Arava 20 mg daily Hepatitis panel ordered to be rechecked Patient [...] ice, massage Off Diclofenac 75 mg BID Symptoms stable Age-related osteoporosis without current pathological fracture Postmenopausal [...] IV started on 01/23/2024 DXA 05/06/24- stable Fractured right femur and right wrist after the fall in 07/2024. Last Reclast infusion 01/25/25 Continue Ca/Vit D supplement Primary osteoarthritis involving multiple [...] left RIOS on 01/30/[address] Clifton. Voltaren gel and topical lidocaine Failed Cymbalta- ineffective Antiphospholipid antibody syndrome DVT 04/2022 Elevated d- dimer (+) anti cardiolipin Ab IgM at 72- high positive, persistent Suspect APLS Evaluated by Hem/Onc, Dr. Garay Needs life long anticoagulation. On Eliquis Immunocompromised patient (HCC) Increased risk for infections due to immunosuppression Prevnar 13 given 12/13/16 Pneumovax 23 given 03/17/17 Therapeutic drug monitoring Tuberculosis screening TB gold negative 08/17/24 Labs every 6-8 weeks while on MTX and Arava to monitor for toxicities. Last lab work unremarkable 12/31/24 Hepatis panel negative ( Hep C Ab, Hep B sAg, Hep Bc total) Colon cancer screening History of lower GI bleeding S/p EGD, and colonoscopy on 01/10/25. EGD showed gastritis, colonoscopy showed multiple scattered diverticula of moderate severity in the sigmoid colon, internal hemorrhoids. Return in about 3 months (around 05/03/2025). documented in this encounter Plan of Treatment Upcoming Encounters Date Type Department Care Team (Late st Contact Info) Description 05/09/2025 11:00 AM EDT Appointment [facility] [address] [place] [address] 05/09/2025 11:15 AM EDT Appointment [facility] [address] [place] [address] Susana Garay MD [address] [place] [address] [place] [id number] 05/13/2025 2:15 PM EDT Office Visit [facility] [address] [place] [address] Jessica Cortes MD [address] [place] [address] documented as of this encounter [...] Tuberculosis screening Screening examination for pulmonary tuberculosis Colon cancer screening Special screening for malignant neoplasms, colon History of lower GI bleeding Personal history of other diseases of digestive system documented in this encounter Care Teams Security Engineer Relationship Specialty Start Date End Date Julisa Kerr MD [address] [place], [place] [id number] PCP - General 02/22/11 Jessica Cortes MD [address] [place] [address] Internal Medicine-Rheumatology 04/26/16 Susana Garay MD [address] [facility] [address] [address] [place], [place] [id number] Medical Oncologist Internal Medicine-Hematology and Oncology 10/14/22 documented as of this encounter
--- OUTSIDE RECORDS SUMMARY | 2025-02-18 07:57 | XMS_ITS | Encounter Summary ---
Author Organization [place] [address] Care Team Providers Care Agricultural Science Professor Name Role Phone Julisa Kerr MD Primary Care Provider [phone] Jessica Cortes MD Unavailable [phone] Susana Garay MD Unavailable [phone] Reason for Visit * Oncology Medication Prior Authorization (Routine) - Authorized Specialty Diagnoses / Procedures Referred By Contac t Referred To Contact Oncology Diagnoses Rheumatoid arthritis involving multiple sites with positive rheumatoid factor (HCC) Age-related osteoporosis without current pathological fracture Procedures [place] INJ., RITUXIMAB, 10 MG W[place] INJ TRUXIMA 10 MG Jessica Cortes MD [address] [address] Phone: tel: fax: [address] [address] Phone: tel: fax: Referral ID Status Reason Start Date Expiration Date V isits Requested Visits Authorized [id number] Authorized 07/23/2024 07/23/2025 1 99 Encounter Details Date Type Department Care Team (Latest Contact Info) Description 02/18/2025 7:57 AM EDT - 02/18/2025 11:59 PM EDT Hospital Encounter [address] [place] [address] Rheumatoid arthritis involving multiple sites [...] Sign Reading Time Taken Comments Blood Pressure 117/66 02/18/2025 12:33 PM EDT Pulse 68 02/18/2025 12:33 PM EDT Temperature 36 C (96.8 F) 02/18/2025 12:33 PM EDT Respiratory Rate 18 02/18/2025 12:33 PM EDT Oxygen Saturation 100% 02/18/2025 12:33 PM EDT Inhaled Oxygen Concentration - - Weight 62.1 kg (137 lb) 02/18/2025 8:18 AM EDT Height - - Body Mass Index 20.83 01/10/2025 12:54 PM EDT documented in this [...] MUSCLE EVERY MONTH 3 mL 3 12/13/2024 gabapentin (NEURONTIN) 800 mg Oral TabletIndications :Rheumatoid arthritis involving multiple sites with positive rheumatoid factor (HCC),Acute bilateral low back pain without sciatica Take 1 Tablet by mouth 2 times daily. 60 Tablet 2 02/17/2025 hydrOXYzine (ATARAX) 25 mg Oral TabletIndications :Anxiety [...] mL 01/19/2025 nalOXone (NARCAN) 4 mg/actuation Nasl [place], Non-Aerosol 1 [place] by Nasal route daily as needed. 08/23/2024 pantoprazole (PROTONIX) 40 mg Oral Tablet, Delayed Release (E.C.) Take 1 Tablet by mouth daily. 30 Tablet 2 02/11/2025 polyethylene glycol (GLYCOLAX) 17 gram/dose Oral PowderIndications [...] encounter Miscellaneous Notes * Patient Instructions - Pia Goodson RN - 02/18/2025 8:00 AM EDT [facility] Discharge Instructions Thank you for entr[facility]ing [facility] with your care. We hope you are pleased with your outpatient care and services. Because we are most concerned with your health, we suggest you carefully read the following discharge instructions: Your Discharge Instructions: MEDICATION INSTRUCTIONS: Treatment received today: Rituxan, tylenol, benadryl, solumedrol Reviewed medications administered today and possible side [...] - Friday 8:00 AM - 4:30 PM. [facility] [place] [address] [place] [address] [phone] [place] Mark Quezada [address] [address] documented in this encounter Plan of Treatment Upcoming Encounters Date Type Department Care Team (Late st Contact Info) Description 05/09/2025 11:00 AM EDT Appointment [address] [place] [address] 05/09/2025 11:15 AM EDT Appointment [address] [place] [address] Susana Garay MD [address] [place] [address] [place] [address] 05/13/2025 2:15 PM EDT Office Visit [facility] [address] [place] [address] Jessica Cortes MD [address] [facility] [address] [place], [place] [id number] documented as of this encounter Goals Goal Patient Goal Type Associated Problems Recent Progress Patient-Stated? Author Maintain a healthy diet, exercise regularly and maintain an ideal body weight General Porsche Ashley RN documented as of this encounter Procedures Procedure Name Priority Date/Time Associated Diagnosis Comments SEDIMENTATION RATE AUTOMATED SAMMY 02/18/2025 8:16 AM EDT Rheumatoid arthritis involving multiple sites with positive rheumatoid factor (HCC) CBC WITH DIFF STAT 02/18/2025 8:16 AM EDT Rheumatoid arthritis involving multiple sites with positive rheumatoid factor (HCC) C-REACTIVE PROTEIN SAMMY 02/18/2025 8: 16 AM EDT Rheumatoid arthritis involving multiple sites with positive rheumatoid factor (HCC) COMPREHENSIVE METABOLIC PANEL SAMMY 02/18/2025 8:16 AM EDT Rheumatoid arthritis involving multiple sites with positive rheumatoid factor (HCC) documented in this encounter Results * (ABNORMAL) C-REACTIVE PROTEIN (02/18/2025 8:16 AM EDT) CRP 19.60(H) <=5.00 mg/L 02/18/2025 3:14 PM EDT [employer] Blood VENOUS BLOOD / Unknown Venipuncture / Unknown 02/18/2025 8:16 AM EDT 02/18/2025 8:18 AM EDT Jessica Cortes MD CHEMISTRY ORDERABLES Siobhan l Result Performing Organization Address City/[facility]/ZIP Co de Phone Number [facility] [employer] [address] [place] [address] , [address] [place] [phone] * (ABNORMAL) SEDIMENTATION RATE AUTOMATED (02/18/2025 8:16 AM EDT) Pathologist [facility] Sed Rate 31(H) 0 - 30 mm/hr 02/18/2025 8:29 AM EDT [facility] Blood VENOUS BLOOD / Unknown Venipuncture / Unknown 02/18/2025 8:16 AM EDT 02/18/2025 8:18 AM EDT Jesscia Cortes MD HEMATOLOGY ORDERABLES Fin al Result [facility] [address] [place] [address] * (ABNORMAL) CBC WITH DIFF (02/18/2025 8:16 AM EDT) Pathologist [facility] WBC 8.6 3.7 - 10.3 x10(3)/mc L 02/18/2025 8:21 AM EDT [facility] RBC 4.92 3.90 - 5.20 x10(6)/mc L 02/18/2025 8:21 AM [facility] Hgb 12.9 11.2 - 15.7 g/dL 02/18/2025 8:21 AM [facility] Hct 41.8 34.0 - 45.0 % 02/18/2025 8:21 AM [facility] MCV 85.0 80.0 - 100.0 fL 02/18/2025 8:21 AM [facility] MCH 26.2 26.0 - 34.0 pg 02/18/2025 8:21 AM [facility] MCHC 30.9 30.7 - 35.5 g/dL 02/18/2025 8:21 AM [facility] RDW 15.0(H) <=14.9 % 02/18/2025 8:21 AM [facility] Platelet 497(H) 155 - 369 x10(3)/mc L 02/18/2025 8:21 AM [facility] MPV 9.2 8.8 - 12.5 fL 02/18/2025 8:21 AM [facility] Neut # Prelim 4.4 1.6 - 6.1 x10(3)/mc L 02/18/2025 8:21 AM [facility] Comment:Preliminary automate d absolute neutrophil count. Value may change if manual differential is indicated. Neut Percent 50.9 % 02/18/2025 8:21 AM [facility] Comment:Neutrophils equals s egs plus bands Imm Gran% 0.9 % 02/18/2025 8:21 AM [facility] Comment:Automated count of m etamyelocytes, myelocytes and promyelocytes. Lymph Percent 34.9 % 02/18/2025 8:21 AM [facility] [place] Percent 9.9 % 02/18/2025 8:21 AM [facility] Eos Percent 2.9 % 02/18/2025 8:21 AM [facility] Baso Percent 0.5 % 02/18/2025 8:21 AM [facility] Neut # 4.4 1.6 - 6.1 x10(3)/mc L 02/18/2025 8:21 AM [facility] Comment:Neutrophils equals s egs plus bands IMMGRAN# 0.1 0.0 - 0.1 x10(3)/mc L 02/18/2025 8:21 AM EDT [facility] Comment:Automated count of m etamyelocytes, myelocytes and promyelocytes. An absolute IG <0.1 is reported as 0.0. Lymph # 3.0 1.2 - 3.9 x10(3)/mc L 02/18/2025 8:21 AM EDT [facility] [place] # 0.9 0.3 - 0.9 x10(3)/mc L 02/18/2025 8:21 AM EDT [facility] Eos# 0.3 0.0 - 0.5 x10(3)/mc L 02/18/2025 8:21 AM EDT [facility] Baso # 0.0 0.0 - 0.1 x10(3)/mc L 02/18/2025 8:21 AM T [facility] Blood VENOUS BLOOD / Unknown Venipuncture / Unknown 02/18/2025 8:16 AM EDT 02/18/2025 8:18 AM EDT us Jessica Cortes MD HEMATOLOGY ORDERABLES Fin al Result [facility] [address] [place], [place] [id number] * COMPREHENSIVE METABOLIC PANEL (02/18/2025 8:16 AM EDT) Sodium 139 136 - 145 mmol/L 02/18/2025 8:38 AM EDT [facility] Potassium 3.6 3.5 - 5.0 mmol/L 02/18/2025 8:38 AM EDT [facility] Chloride 101 98 - 107 mmol/L 02/18/2025 8:38 AM EDT [facility] Total CO2 22 22 - 29 mmol/L 02/18/2025 8:38 AM EDT [facility] Anion Gap 16 7 - 16 mmol/L 02/18/2025 8:38 AM EDT [facility] Calcium 8.8 8.6 - 10.4 mg/dL 02/18/2025 8:38 AM [facility] Glucose Lvl 81 70 - 99 mg/dL 02/18/2025 8:38 AM [facility] BUN 8 6 - 20 mg/dL 02/18/2025 8:38 AM [facility] Creatinine 0.62 0.51 - 1.30 mg/dL 02/18/2025 8:38 AM [facility] Albumin 4.0 3.5 - 5.2 gm/dL 02/18/2025 8:38 AM [facility] Total Protein 7.0 6.4 - 8.3 gm/dL 02/18/2025 8:38 AM [facility] Bili Total 0.3 0.2 - 1.3 mg/dL 02/18/2025 8:38 AM [facility] ALT 12 <=41 U/L 02/18/2025 8:38 AM [facility] AST 15 <=40 U/L 02/18/2025 8:38 AM [facility] Alk Phos 86 36 - 123 U/L 02/18/2025 8:38 AM [facility] eGFR (CKD-EPIcr 2020) 105 >=60 mL/min/1.7 3 m2 02/18/2025 8:38 AM [facility] Comment:Estimated GFR was ca lculated using the CKD-EPIcr (2020) equation refit without race. The equation is recommended by the [employer] Kid[employer] - [place] [employer]ph[employer] Task Force. Blood VENOUS BLOOD / Unknown Venipuncture / Unknown 02/18/2025 8:16 AM EDT 02/18/2025 8:18 AM EDT us Jessica Cortes MD CHEMISTRY ORDERABLES Siobhan finnegan Result [facility] [address] [place] [address] documented in this encounter Visit Diagnoses Diagnosis 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 documented in this encounter Administered Medications Inactive Administered Medications - up to 1 most recent administrations Medication Order MAR Action Action Date Dose Rate Site acetaminophen (TYLENOL) tablet 650 mg 650 mg, Oral, ONCE, 1 dose, On Fri02/18/25 at 0830, Maximum adult dose of acetaminophen is 4000 mg from all sources in 24 hours., Dx: 1. Rheumatoid arthritis involving multiple sites with positive rheumatoid factor (HCC)Indications:Rheumatoid arthritis involving multiple sites with positive rheumatoid factor (HCC) Given 02/18/2025 8:30 AM EDT 650 mg diphenhydrAMINE (BENADRYL) injection 25 mg 25 mg, Intravenous, ONCE, 1 dose, On Fri02/18/25 at 0830, Dx: 1. Rheumatoid arthritis involving multiple sites with positive rheumatoid factor (HCC)Indications:Rheumatoid arthritis involving multiple sites with positive rheumatoid factor (HCC) Given 02/18/2025 8:30 AM EDT 25 mg methylPREDNISolone sodium succinate (Solu-MEDROL) injection 100 mg 100 mg, Intravenous, ONCE, 1 dose, On Fri02/18/25 at 0830, Dx: 1. Rheumatoid arthritis involving multiple sites with positive rheumatoid factor (HCC)Indications:Rheumatoid arthritis involving multiple sites with positive rheumatoid factor (HCC) Given 02/18/2025 8:30 AM EDT 100 mg riTUXimab-abbs (TRUXIMA) 1,000 mg in sodium chloride 0.9 % 453 mL chemo infusion 1,000 mg, Intravenous, ONCE, 1 dose, On Fri02/18/25 at 0830, Administer over 2 Hours, Initial infusion (each 4 to 6 month infusion starts here): Start rate of 50 mg/hr; if there is no reaction, increase the rate by 50 mg/hr increments every 30 minutes, to a maximum rate of 400 mg/hr. Subsequent Infusions: If the patient experienced an infusion reaction during the first infusion start at the same rate as the first infusion (50 mg/hr) and follow first infusion directions. If patient tolerated previous infusion well, begin at a rate of 100 mg/hr. If an infusion reaction does not occur, increase rate by 100 mg/hr every 30 minutes to a maximum of 400 mg/hr Total Volume = 500 mL, Dx: 1. Rheumatoid arthritis involving multiple sites with positive rheumatoid factor (HCC)Indications:Rheumatoid arthritis involving multiple sites with positive rheumatoid factor (HCC) Rate/Dose Verify 02/18/2025 11:33 AM EDT 200 mL/hr sodium chloride 0.9% syringe 10 mL 10 mL, Intravenous, PRN, Starting on Fri02/18/25 at 0803, Until 02/20/25 at 0402, Line Care, Flush peripheral lines every 12 hours, central lines every 8 hours, and after IV medication, Dx: 1. Rheumatoid arthritis involving multiple sites with positive rheumatoid factor (HCC)Indications:Rheumatoid arthritis involving multiple sites with positive rheumatoid factor (HCC) Given 02/18/2025 12:25 PM EDT 20 mL documented in this encounter Care Teams Agricultural Science Professor Relationship Specialty Start Date End Date Julisa Kerr MD [address] [place] [address] PCP - General 02/22/11 Jessica Cortes MD [address] [address] Internal Medicine-Rheumatology 04/26/16 Susana Garay MD [address] [place] [id number] Medical Oncologist Internal Medicine-Hematology and Oncology 10/14/22 documented as of this encounter
--- OUTSIDE RECORDS SUMMARY | 2025-03-04 07:57 | XMS_ITS | Encounter Summary ---
Author Organization [place] [address] Care Team Providers Care Acetylene Torch Burner Name Role Phone Julisa Kerr MD Primary Care Provider [phone] Jessica Cortes MD Unavailable [phone] Susana Garay MD Unavailable [phone] Reason for Visit * Oncology Medication Prior Authorization (Routine) - Authorized Specialty Diagnoses / Procedures Referred By Contac t Referred To Contact Oncology Diagnoses Rheumatoid arthritis involving multiple sites with positive rheumatoid factor (HCC) Age-related osteoporosis without current pathological fracture Procedures RI INJ., RITUXIMAB, 10 MG RI INJ TRUXIMA 10 MG Jessica Cortes MD [address] [address] Phone: tel: fax: [address] [place] [address] Phone: tel: fax: Referral ID Status Reason Start Date Expiration Date V isits Requested Visits Authorized [id number] Authorized 07/23/2024 07/23/2025 1 99 Encounter Details Date Type Department Care Team (Latest Contact Info) Description 03/04/2025 7:57 AM EDT - 03/04/2025 11:59 PM EDT Hospital Encounter [address] [place] [address] Rheumatoid arthritis involving multiple sites [...] Sign Reading Time Taken Comments Blood Pressure 128/79 03/04/2025 12:25 PM EDT Pulse 72 03/04/2025 12:25 PM EDT Temperature 36.4 C (97.6 F) 03/04/2025 12:25 PM EDT Respiratory Rate 18 03/04/2025 12:2 5 PM EDT Oxygen Saturation 99% 03/04/2025 12: 25 PM EDT Inhaled Oxygen Concentration - - Weight 61.6 kg (135 lb 12.8 oz) 03/04/2025 8:34 AM EDT Height - - Body Mass Index 20.65 01/10/2025 12:54 PM EDT documented in this [...] mL 01/19/2025 nalOXone (NARCAN) 4 mg/actuation Nasl [place], Non-Aerosol 1 [place] by Nasal route daily as needed. 08/23/2024 [...] encounter Miscellaneous Notes * Patient Instructions - Marianne Ascencio RN - 03/04/2025 8:00 AM EDT [facility] Discharge Instructions Thank you for entrusting the [facility] with your care. We hope you are pleased with your outpatient care and services. Because we are most concerned with your health, we suggest you carefully read the following discharge instructions: Your Discharge Instructions: MEDICATION INSTRUCTIONS: Treatment received today: Tylenol, Truxima, Solumedrol, Benadryl Reviewed medications administered today and possible side [...] - Friday 8:00 AM - 4:[address] [facility] Oncology [id number] [place] [address] [phone] [place] Mark Quezada [address] [place] [address] documented in this encounter Plan of Treatment Upcoming Encounters Date Type Department Care Team (Late st Contact Info) Description 05/09/2025 11:00 AM EDT Appointment [facility] [address] [place] [address] 05/09/2025 11:15 AM EDT Appointment [address] [place] [address] Susana Garay MD [address] [place] [address] [place] [address] 05/13/2025 2:15 PM EDT Office Visit [facility] [address] [place] [address] Jessica Cortes MD [address] [place], [place] [id number] documented as of this encounter Goals Goal Patient Goal Type Associated Problems Recent Progress Patient-Stated? Author Maintain a healthy diet, exercise regularly and maintain an ideal body weight General No Porsche Jeffery RN documented as of this encounter Procedures Procedure Name Priority Date/Time Associated Diagnosis Comments SEDIMENTATION RATE AUTOMATED SAMMY 03/04/2025 8:31 AM EDT Rheumatoid arthritis involving multiple sites with positive rheumatoid factor (HCC) CBC WITH DIFF STAT 03/04/2025 8:31 AM EDT Rheumatoid arthritis involving multiple sites with positive rheumatoid factor (HCC) C-REACTIVE PROTEIN SAMMY 03/04/2025 8: 31 AM EDT Rheumatoid arthritis involving multiple sites with positive rheumatoid factor (HCC) COMPREHENSIVE METABOLIC PANEL SAMMY 03/04/2025 8:31 AM EDT Rheumatoid arthritis involving multiple sites with positive rheumatoid factor (HCC) documented in this encounter Results * (ABNORMAL) C-REACTIVE PROTEIN (03/04/2025 8:31 AM EDT) CRP 16.49(H) <=5.00 mg/L 03/04/2025 2:12 PM EDT [facility] Blood VENOUS BLOOD / Unknown Venipuncture / Unknown 03/04/2025 8:31 AM EDT 03/04/2025 8:34 AM EDT Jessica Cortes MD CHEMISTRY ORDERABLES Siobhan l Result [facility] [employer] [address] [place] [address], [facility] [place] [address] * SEDIMENTATION RATE AUTOMATED (03/04/2025 8:31 AM EDT) Pathologist [facility] Sed Rate 22 0 - 30 mm/hr 03/04/2025 8:44 AM EDT [facility] Blood VENOUS BLOOD / Unknown Venipuncture / Unknown 03/04/2025 8:31 AM EDT 03/04/2025 8:34 AM EDT Jessica Cortes MD HEMATOLOGY ORDERABLES Fin al Result [facility] [address] [place] [address] * (ABNORMAL) CBC WITH DIFF (03/04/2025 8:31 AM EDT) WBC 11.9(H) 3.7 - 10.3 x10(3)/mc L 03/04/2025 8:38 AM EDT [facility] RBC 4.79 3.90 - 5.20 x10(6)/mc L 03/04/2025 8:38 AM EDT [facility] Hgb 12.6 11.2 - 15.7 g/dL 03/04/2025 8:38 AM [facility] Hct 41.0 34.0 - 45.0 % 03/04/2025 8:38 AM [facility] MCV 85.6 80.0 - 100.0 fL 03/04/2025 8:38 AM [facility] MCH 26.3 26.0 - 34.0 pg 03/04/2025 8:38 AM [facility] MCHC 30.7 30.7 - 35.5 g/dL 03/04/2025 8:38 AM [facility] RDW 14.8 <=14.9 % 03/04/2025 8:38 AM [facility] Platelet 375(H) 155 - 369 x10(3)/mc L 03/04/2025 8:38 AM [facility] MPV 9.4 8.8 - 12.5 fL 03/04/2025 8:38 AM [facility] Neut # Prelim 9.0(H) 1.6 - 6.1 x10(3)/mc L 03/04/2025 8:38 AM [facility] Comment:Preliminary automate d absolute neutrophil count. Value may change if manual differential is indicated. Neut Percent 75.7 % 03/04/2025 8:38 AM [facility] Comment:Neutrophils equals s egs plus bands Imm Gran% 0.8 % 03/04/2025 8:38 AM [facility] Comment:Automated count of m etamyelocytes, myelocytes and promyelocytes. Lymph Percent 15.0 % 03/04/2025 8:38 AM [facility] [place] Percent 7.5 % 03/04/2025 8:38 AM [facility] Eos Percent 0.5 % 03/04/2025 8:38 AM [facility] Baso Percent 0.5 % 03/04/2025 8:38 AM [facility] Neut # 9.0(H) 1.6 - 6.1 x10(3)/mc L 03/04/2025 8:38 AM [facility] Comment:Neutrophils equals s egs plus bands IMMGRAN# 0.1 0.0 - 0.1 x10(3)/mc L 03/04/2025 8:38 AM EDT [facility] Comment:Automated count of m etamyelocytes, myelocytes and promyelocytes. An absolute IG <0.1 is reported as 0.0. Lymph # 1.8 1.2 - 3.9 x10(3)/mc L 03/04/2025 8:38 AM EDT [facility] [place] # 0.9 0.3 - 0.9 x10(3)/mc L 03/04/2025 8:38 AM EDT [facility] Eos# 0.1 0.0 - 0.5 x10(3)/mc L 03/04/2025 8:38 AM EDT [facility] Baso # 0.1 0.0 - 0.1 x10(3)/mc L 03/04/2025 8:38 AM EDT [facility] Blood VENOUS BLOOD / Unknown Venipuncture / Unknown 03/04/2025 8:31 AM EDT 03/04/2025 8:34 AM EDT us Jessica Cortes MD HEMATOLOGY ORDERABLES Fin al Result [facility] [address] [place] [address] * (ABNORMAL) COMPREHENSIVE METABOLIC PANEL (03/04/2025 8:31 AM EDT) Sodium 137 136 - 145 mmol/L 03/04/2025 8:53 AM EDT [facility] Potassium 4.1 3.5 - 5.0 mmol/L 03/04/2025 8:53 AM EDT [facility] Chloride 102 98 - 107 mmol/L 03/04/2025 8:53 AM EDT [facility] Total CO2 23 22 - 29 mmol/L 03/04/2025 8:53 AM T [facility] Anion Gap 12 7 - 16 mmol/L 03/04/2025 8:53 AM EDT [facility] Calcium 8.9 8.6 - 10.4 mg/dL 03/04/2025 8:53 AM T [facility] Glucose Lvl 150(H) 70 - 99 mg/dL 03/04/2025 8:53 AM [facility] BUN 10 6 - 20 mg/dL 03/04/2025 8:53 AM [facility] Creatinine 0.59 0.51 - 1.30 mg/dL 03/04/2025 8:53 AM [facility] Albumin 4.0 3.5 - 5.2 gm/dL 03/04/2025 8:53 AM [facility] Total Protein 7.0 6.4 - 8.3 gm/dL 03/04/2025 8:53 AM [facility] Bili Total 0.2 0.2 - 1.3 mg/dL 03/04/2025 8:53 AM [facility] ALT 15 <=41 U/L 03/04/2025 8:53 AM [facility] AST 17 <=40 U/L 03/04/2025 8:53 AM [facility] Alk Phos 79 36 - 123 U/L 03/04/2025 8:53 AM [facility] eGFR (CKD-EPIcr 2020) 107 >=60 mL/min/1.7 3 m2 03/04/2025 8:53 AM [facility] Comment:Estimated GFR was ca lculated using the CKD-EPIcr (2020) equation refit without race. The equation is recommended by the National Kidney Foundation - [place] [employer] of Neph[employer] Task Force. Blood VENOUS BLOOD / Unknown Venipuncture / Unknown 03/04/2025 8:31 AM EDT 03/04/2025 8:34 AM EDT us Jessica Cortes MD CHEMISTRY ORDERABLES Siobhan finnegan Result [facility] [address] [place] [address] documented in this encounter Visit Diagnoses Diagnosis 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 documented in this encounter Administered Medications Inactive Administered Medications - up to 1 most recent administrations Medication Order MAR Action Action Date Dose Rate Site acetaminophen (TYLENOL) tablet 650 mg 650 mg, Oral, ONCE, 1 dose, On Fri03/04/25 at 0845, Maximum adult dose of acetaminophen is 4000 mg from all sources in 24 hours., Dx: 1. Rheumatoid arthritis involving multiple sites with positive rheumatoid factor (HCC)Indications:Rheumatoid arthritis involving multiple sites with positive rheumatoid factor (HCC) Given 03/04/2025 8:41 AM EDT 650 mg diphenhydrAMINE (BENADRYL) injection 25 mg 25 mg, Intravenous, ONCE, 1 dose, On Fri03/04/25 at 0845, Dx: 1. Rheumatoid arthritis involving multiple sites with positive rheumatoid factor (HCC)Indications:Rheumatoid arthritis involving multiple sites with positive rheumatoid factor (HCC) Given 03/04/2025 8:43 AM EDT 25 mg methylPREDNISolone sodium succinate (Solu-MEDROL) injection 100 mg 100 mg, Intravenous, ONCE, 1 dose, On Fri03/04/25 at 0845, Dx: 1. Rheumatoid arthritis involving multiple sites with positive rheumatoid factor (HCC)Indications:Rheumatoid arthritis involving multiple sites with positive rheumatoid factor (HCC) Given 03/04/2025 8:48 AM EDT 100 mg riTUXimab-abbs (TRUXIMA) 1,000 mg in sodium chloride 0.9 % 453 mL chemo infusion 1,000 mg, Intravenous, ONCE, 1 dose, On Fri03/04/25 at 0845, Administer over 2 Hours, Initial [...] with positive rheumatoid factor (HCC) Rate/Dose Verify 03/04/2025 11:08 AM EDT 200 mL/hr sodium chloride 0.9% syringe 10 mL 10 mL, Intravenous, PRN, Starting on Fri03/04/25 at 0819, Until 03/06/25 at 0403, Line Care, Flush peripheral lines every 12 hours, central lines every 8 hours, and after IV medication, Dx: 1. Rheumatoid arthritis involving multiple sites with positive rheumatoid factor (HCC)Indications:Rheumatoid arthritis involving multiple sites with positive rheumatoid factor (HCC) Given 03/04/2025 12:35 PM EDT 20 mL documented in this encounter Care Teams Acetylene Torch Burner Relationship Specialty Start Date End Date Julisa Kerr MD [address] [place] [address] PCP - General 02/22/11 eJssica Cortes MD [address] [place] [address] Internal Medicine-Rheumatology 04/26/16 Susana Garay MD [address] [place] [address] Medical Oncologist Internal Medicine-Hematology and Oncology 10/14/22 documented as of this encounter
--- OUTSIDE RECORDS SUMMARY | 2025-03-09 15:13 | XMS_ITS | Encounter Summary ---
Author Organization [place] [address] Care Team Providers Care Motor Bike Mechanic Name Role Phone Julisa Kerr MD Primary Care Provider [phone] Jessica Cortes MD Unavailable [phone] Susana Garay MD Unavailable [phone] Reason for Visit * Reason Comments Medication Refill Encounter Details Date Type Department Care Team (Late st Contact Info) Description 01/11/2025 Refill [facility] [address] [place] [address] Jessica Cortes MD [address] [place] [address] Medication Refill Social History Tobacco Use Types [...] Dillon Blake MA documented in this encounter Ordered Prescriptions Prescription Sig Dispense Quantity Refills Last Filled Start Date End Date predniSONE (DELTASONE) 5 mg Oral TabletIndications:R heumatoid arthritis involving multiple sites with positive rheumatoid factor (HCC) TAKE 1 TABLET BY MOUTH EVERY DAY 30 Tablet 1 01/12/2025 documented in this encounter Miscellaneous Notes * Telephone Encounter - Emerita Carter CCMA - 01/12/2025 7:37 AM EDT prednisone 5 mg daily. VALENTIN- 10/25/2024 Labs- NEXT Follow up- 01/31/2025 documented in this encounter Plan of Treatment Upcoming Encounters Date Type Department Care Team (Late st Contact Info) Description 05/09/2025 11:00 AM EDT Appointment [facility] [address] [place] [address] 05/09/2025 11:15 AM EDT Appointment [facility] [address] [place], [place] [id number] Susana Garay MD [address] [facility] [address] [place] [id number] 05/13/2025 2:15 PM EDT Office Visit [facility] [address] [facility] [address] [place] [address] Jessica Cortes MD [address] [facility] [address] [place], [place] [id number] documented as of this encounter Goals Goal [...] TAKE 1 TABLET BY MOUTH EVERY DAY 10/14/2024 01/12/2025 documented as of this encounter Care Teams Motor Bike Mechanic Relationship Specialty Start Date End Date Julisa Kerr MD [address] [place] [address] PCP - General 02/22/11 Jessica Cortes MD [address] [facility] [address] [place] [address] Internal Medicine-Rheumatology 04/26/16 Susana Garay MD [address] [facility] [address] [place] [id number] Medical Oncologist Internal Medicine-Hematology and Oncology 10/14/22 documented as of this encounter
--- OUTSIDE RECORDS SUMMARY | 2025-03-09 15:13 | XMS_ITS | Encounter Summary ---
Author Organization [place] [address] Care Team Providers Care Game Preserve Manager Name Role Phone Julisa Kerr MD Primary Care Provider [phone] Jessica Carter MD Unavailable [phone] Susana Garay MD Unavailable [phone] Reason for Visit * Reason Onset Date Comments Advice Only 01/25/2025 Encounter Details Date Type Department Care Team (Late st Contact Info) Description 01/25/[address] [facility] Rheumatology [address] [address] Jessica Carter MD [address] [address] Advice Only Social History Tobacco Use Types Packs/Day Years [...] End Date predniSONE (DELTASONE) 10 mg Oral Tablet Take 3 tablets daily x 5 days then 2 tablets daily x 5 days then 1 tablet daily x 5 days then stop. 30 Tablet 01/25/2025 documented in this encounter Miscellaneous Notes * Addendum Note - Jessica Carter MD - 01/25/2025 12:06 PM EDTAddended by: JESSICA CARTER on: 01/25/2025 12:06 PM Modules accepted: Orders * Telephone Encounter - Jessica Carter MD - 01/25/2025 12:06 PM EDT Script sent * Telephone Encounter - Triny Lay CCMA - 01/25/2025 11:50 AM EDT Spoke to patient directly and informed patient that Dr. Carter reviewed her colonscopy and that Dr. Carter placed a new therapy plan for it and once we insurance approves it then our infusion center will call patient to schedule. Patient voiced understanding and patient would also like a prednisone taper sent to [facility] pharmacy [facility]. * Addendum Note - Jessica Carter MD - 01/25/2025 11:41 AM EDTAddended by: JESSICA CARTER on: 01/25/2025 11:41 AM Modules accepted: Orders * Telephone Encounter - Jessica Carter MD - 01/25/2025 11:38 AM EDT Please let the patient know I reviewed her EGD and colonoscopy and there is no contraindications tocontinue Rituximab. I placed new therapy plan for Rituximab, it will most likley need to be approved by the insurance and once approved the infusion will call her to schedule. Would she like prednisone taper in the meantime. * Telephone Encounter - Triny Lay CCMA - 01/25/2025 9:37 AM EDT Patient called stating that patient had her colonoscopy done that Dr. Carter wanted her to do and patient had it done on 01/10. Djea Martinez MD [facility] Gastroenterology Patient would like to know if Dr. Carter would still want patient to continue the Rituximab infusions. Patient stated she has a lot of joint pain and not able to function normally on a day to day basis. Please advise. documented in this encounter Plan of Treatment Upcoming Encounters Date Type Department Care Team (Late st Contact Info) Description 05/09/2025 11:00 AM EDT [address]ointment [address] [place] [address] 05/09/2025 11:15 AM EDT Appointment [facility] [place] [address] Susana Garay MD [address] [facility] [address] [place] [id number] 05/13/2025 2:15 PM EDT Office Visit [facility] [address] [facility] [address] [place] [address] Jessica Carter MD 651 [facility] [address] [place] [address] documented as of this encounter Goals Goal Patient Goal Type Associated Problems Recent Progress Patient-Stated? Author Maintain a healthy diet, exercise regularly and maintain an ideal body weight General No Porsche Jeffery, RN documented as of this encounter Visit Diagnoses Not on filedocumented in this encounter Care Teams Game Preserve Manager Relationship Specialty Start Date End Date Julisa Kerr MD [address] [place] [address] PCP - General 02/22/11 Jessica Carter MD 651 [facility] [address] [place] [address] Internal Medicine-Rheumatology 04/26/16 Susana Garay MD [address] [facility] [address] [place] [id number] Medical Oncologist Internal Medicine-Hematology and Oncology 10/14/22 documented as of this encounter
--- OUTSIDE RECORDS SUMMARY | 2025-03-09 15:13 | XMS_ITS | Encounter Summary ---
Author Organization [place] [address] Care Team Providers Care Fire Medic Name Role Phone Julisa Kerr MD Primary Care Provider [phone] Jessica Cortes MD Unavailable [phone] Susana Garay MD Unavailable [phone] Encounter Details Date Type Department Care Team (Latest Contact Info) Description 03/04/2025 Results Follow-Up [facility] [address] [place] [address] Jessica Cortes MD [address] [facility] Building [address] [place] [id number] COMPREHENSIVE METABOLIC PANEL, CBC WITH DIFF, SEDIMENTATION RATE AUTOMATED, C-REACTIVE PROTEIN Social History Tobacco Use Types Packs/Day Years [...] Dillon Blake MA documented in this encounter Plan of Treatment Upcoming Encounters Date Type Department Care Team (Late st Contact Info) Description 05/09/2025 11:00 AM EDT Appointment [address] [place] [address] 05/09/2025 11:15 AM EDT Appointment [address] [place] [address] Susana Garay MD [address] [place] [address] [place] [id number] 05/13/2025 2:15 PM EDT Office Visit [facility] [address] [place] [address] Jessica Cortes MD [address] [facility] [address] [place] [address] documented as of this encounter Goals Goal Patient Goal Type Associated Problems Recent Progress Patient-Stated? Author Maintain a healthy diet, exercise regularly and maintain an ideal body weight General Porsche Ashley, RN documented as of this encounter Visit Diagnoses Not on filedocumented in this encounter Care Teams Fire Medic Relationship Specialty Start Date End Date Julisa Kerr MD [address] [place], [place] [id number] PCP - General 02/22/11 Jessica Cortes MD [address] [address] Internal Medicine-Rheumatology 04/26/16 Susana Garay MD [address] [place] [address] Medical Oncologist Internal Medicine-Hematology and Oncology 10/14/22 documented as of this encounter
--- OUTSIDE RECORDS SUMMARY | 2025-03-09 15:13 | XMS_ITS | Clinical Summary ---
Author Organization [facility] Address [address] [place] [address] Phone Care Team Providers Care Associate Designer Name Role Phone Julisa Kerr MD Primary Care Provider [phone] Jessica Cortes MD Unavailable [phone] Susana Garay MD Unavailable [phone] Allergies Active Allergy Reactions Criticality Noted [...] Comments) 12/07/2021 Tofacitinib Itching Low 09/20/2019 Medications apixaban (ELIQUIS) 5 mg Oral TabletIndication s:Antiphospholip id syndrome,History of DVT in adulthood Take 1 Tablet by mouth 2 times daily. 60 Tablet 11 4 Active linaCLOtide (LINZESS) 290 mcg Oral CapsuleIndicatio ns:Irritable bowel syndrome with constipation and diarrhea Take 1 Capsule by mouth before breakfast. 90 Capsule 3 4 Active hydrOXYzine (ATARAX) 25 mg Oral TabletIndication s:Anxiety TAKE 1 TABLET BY MOUTH THREE TIMES A DAY NEEDED 90 Tablet 2 4 Active nalOXone (NARCAN) 4 mg/actuation Nasl [place], Non-Aerosol 1 [place] by Nasal route daily as needed. 4 Active valACYclovir (VALTREX) 1 gram Oral Tablet Take 1,000 mg by mouth. 5 Active cyanocobalamin 1,000 mcg/mL Inj SolutionIndicati ons:Vitamin B 12 deficiency INJECT 1ML INTO MUSCLE EVERY MONTH 3 mL 3 5 Active polyethylene glycol (GLYCOLAX) 17 gram/dose Oral PowderIndication s:Rectal bleeding,Constip ation, unspecified constipation type,Dysphagia, unspecified type,Diarrhea, unspecified type Take 17 g by mouth daily. 1700 g 3 5 Active predniSONE (DELTASONE) 5 mg Oral TabletIndication s:Rheumatoid arthritis involving multiple sites with positive rheumatoid factor (HCC) TAKE 1 TABLET BY MOUTH EVERY DAY 30 Tablet 1 5 Active leflunomide (ARAVA) 20 mg Oral TabletIndication s:Rheumatoid arthritis involving multiple sites with positive rheumatoid factor (HCC) TAKE 1 TABLET BY MOUTH EVERY DAY 30 Tablet 1 5 Active methotrexate sodium 25 mg/mL Inj SolutionIndicati ons:Rheumatoid arthritis involving multiple sites with positive rheumatoid factor (HCC) SUBCUTANEOUS (INJECT UNDER THE SKIN) 0.8 ML EVERY 7 DAYS. INJECT 0.8ML UNDER THE SKIN (SUBCUTANEOUSLY) ONCE A WEEK. 10 mL 5 Active predniSONE (DELTASONE) 10 mg Oral Tablet Take 3 tablets daily x 5 days then 2 tablets daily x 5 days then 1 tablet daily x 5 days then stop. 30 Tablet 5 Active pantoprazole (PROTONIX) 40 mg Oral Tablet, Delayed Release (E.C.) Take 1 Tablet by mouth daily. 30 Tablet 2 5 Active gabapentin (NEURONTIN) 800 mg Oral TabletIndication s:Rheumatoid arthritis involving multiple sites with positive rheumatoid factor (HCC),Acute bilateral low back pain without sciatica Take 1 Tablet by mouth 2 times daily. 60 Tablet 2 5 Active Active Problems Patient Care Coordination No te Formatting of this note migh t be different from the original. Care gap audit completed by Genesis Angel on 10/05/2020. Problem Noted Date Diagnosed Date S/P total knee arthroplasty, right 08/24/2024 Age-related osteoporosis wit hout current pathological fracture 01/09/2024 Primary osteoarthritis of left hip 12/29/2023 Right leg DVT 12/08/2023 Degenerative joint disease of cervical spine 07/2024 Antiphospholipid syndrome 07/23/2022 Positive BRET (antinuclear antibody) 05/06/2018 Neck pain 05/06/2018 Vitamin B 12 deficiency 12/24/2017 Immunocompromised patient 10/06/2017 Osteopenia 12/13/2016 Rheumatoid arthritis involvi ng multiple sites with positive rheumatoid factor 04/26/2016 Assessment & Plan (11/15/2024 11:44 AM EST): stable Orders: gabapentin (NEURONTIN) 800 mg Oral Tablet; Take 1 Tablet by mouth 2 times daily. Raynaud's phenomenon 04/22/2016 PRAVEEN (stress urinary incontinence, female) 2013 Resolved Problems Problem Noted Date Diagnosed Date Resolved Date Rheumatoid arthritis 12/02/2013 016 Encounters Date Type Department Care Team Description 03/04/2025 7:57 AM EDT - 03/04/2025 11:59 PM EDT Hospital Encounter [facility] [address] [place] [address] Rheumatoid arthritis involving multiple sites with positive rheumatoid factor (HCC) (Primary Dx) Discharge Disposition: Home or Self Care 03/04/2025 Results Follow-Up [facility] [address] [place] [address] Jessica Cortes MD COMPREHENSIVE METABOLIC PANEL, CBC WITH DIFF, SEDIMENTATION RATE AUTOMATED, C-REACTIVE PROTEIN 02/22/2025 Results Follow-Up [facility] [address] [place] [address] Jessica Cotres MD COMPREHENSIVE METABOLIC PANEL, CBC WITH DIFF, SEDIMENTATION RATE AUTOMATED, C-REACTIVE PROTEIN 02/18/2025 7:57 AM EDT - 02/18/2025 11:59 PM EDT Hospital Encounter [address] [place] [address] Rheumatoid arthritis involving multiple sites with positive rheumatoid factor (HCC) (Primary Dx) Discharge Disposition: Home or Self Care 02/17/2025 Refill [facility] [address] [place] [address] Julisa Kerr MD Refill (gabapentin (NEURONTIN) 800 mg Oral Tablet 60 Tablet 2 11/12/2024 - /Sig - Route: Take 1 Tablet by mouth 2 times daily. - Oral //) 02/07/2025 Telephone [facility] [address] [facility] [address], 3[place] [address] Deja Martinez MD Medication Management (REFLUX) 02/01/2025 Results Follow-Up [facility] [address] [facility] [address]TR[address], 3[place] [address] Deja Martinez MD PATHOLOGY TISSUE REQUEST 01/31/2025 10:45 AM EDT Telemedicine [facility] [address] [place] [address] Jessica Cortes MD Rheumatoid arthritis [...] bleeding Discharge Disposition: Home or Self Care 01/25/2025 9:00 AM EDT - 01/25/2025 11:59 PM EDT Hospital Encounter [address] [place], [place] [id number] Rheumatoid arthritis involving multiple sites with positive rheumatoid factor (HCC) (Primary Dx) Discharge Disposition: Home or Self Care 01/25/2025 Telephone [facility] [place] [address] [place] [address] Jessica Cortes MD Advice Only 01/19/2025 Refill [facility] [place] [address] [place] [address] Jessica Cortes MD Medication Refill 01/11/2025 Refill [facility] [address] [facility] [address] [place] [address] Jessica Cortes MD Medication Refill 01/10/2025 2:33 PM EDT Anesthesia Event [facility] [address] [place] [address] Amando Vega DO Judge, Lisa M, MD 01/10/2025 12:24 PM EDT - 01/10/2025 11:59 PM EDT Hospital Encounter [facility] [address] [facility] [place] [address] Deja Martinez MD Mohan, Vijay R, Shania Garcia, BRITTNY Rectal bleeding; Constipation, unspecified constipation type; Dysphagia, unspecified type; Diarrhea, unspecified type Discharge Disposition: Home or Self Care 01/10/2025 Travel 01/07/2025 12:20 PM EDT Office Visit [facility] [address], [address] [address] Deja Martinez MD Rectal bleeding (Primary Dx); Constipation, unspecified constipation type; Dysphagia, unspecified type; Diarrhea, unspecified type 01/07/2025 Telephone [facility] [address], [address] [place] [address] Deja Martinez MD Medication Management (colyte) 01/02/2025 Travel 12/31/2024 10:54 AM EDT - 12/31/2024 11:59 PM EDT Hospital Encounter [facility] [address] [place] [address] Rheumatoid arthritis involving multiple sites with positive rheumatoid factor (HCC); Therapeutic drug monitoring Discharge Disposition: Home or Self Care 12/12/2024 Refill [facility] [address] [place] [address] Julisa Kerr MD Medication Refill from Last 3 Months Immunizations Immunization Administration Dates Next Due DTaP, Unspecified Formulation [...] AND BSO 09/29/2000 IR 2 LEVEL TRANSFORAMINAL EPIDURAL INJ CERVICAL SPINE 06/29/2021 - 07/29/2021 TOTAL KNEE ARTHROPLASTY 08/21/2023 Right TOTAL HIP ARTHROPLASTY 01/30/2024 Left JOINT REPLACEMENT 08/24/23 Knee replacement then 02/08/24ip replacement Sep reconstructive right elbow surgery FRACTURE SURGERY 09/29/20 Right elbow surgery HYSTERECTOMY 2001 Medical History Medical History Date Comments Arthritis DVT (deep venous thrombosis) ([facility]) 06/08/2022 Right Antiphospholipid syndrome Family History Medical History Relation Name Comments Arthritis Father Harry Sarkar Arthritis Mother Yuliet Sarkar Heart disease Diabetes Mother Yuliet Magdalenohop Heart Disease Mother Yuliet Sarkar Arthritis Paternal Grandmother Mathew inder Relation Name Status Comments Father Harry Sarkar Maternal Grandfather Heart d isease Mother Yuliet Sarkar Paternal Grandmother Mathew loving Social History Tobacco Use Types Packs/Day Years Used Date Smoking Tobacco: Never Passive Smoke Exposure: Never Smokeless Tobacco: Never Tobacco Cessation:Counseling Given: Not Answered Alcohol Use Standard Drinks/Week Comments Not Currently [...] 12.8 oz) 03/04/2025 8:34 AM EDT Height 172.7 cm (5' 8 ) 01/10/2025 12:5 4 PM EDT Body Mass Index 20.65 01/10/2025 12:54 PM EDT Plan of Treatment Upcoming Encounters Date Type Department Care Team (Late st Contact Info) Description 05/09/2025 11:00 AM EDT Appointment [facility] [address] [place] [address] 05/09/2025 11:15 AM EDT Appointment [facility] [address] [place] [address] Susana Garay MD [address] [place] [address] [place] [address] 05/13/2025 2:15 PM EDT Office Visit [facility] [address] [place] [address] Jessica Cortes MD [address] [place] [address] Health Maintenance Due Date Last Done Comments COVID-19 Vaccine (#1) 1975 Hepatitis B Vaccine (1 of 3 - 19+ 3-dose series) 1989 FIT 2015 Sigmoidoscopy 2015 Virtual Colonography 2015 Annual Wellness Exam 05/03/2025 05/03/2024, 07/20/20 14 Influenza Vaccine (Season Ended) 2025 07/28/2023, 07/01/2022, 06/20/2020, Additional history exists Breast Cancer Screening 02/10/2026 02/11/20 24, 07/20/2014 (Declined) Cologuard 02/02/2027 02/03/2024, 03/0 09/2020, 11/27/2020 Pneumococcal Vaccine 50+ (4 of 4 - PCV20 or PCV21) 07/01/2027 07/01/2022, 03/17/2017, 12/13/2016 DTaP/TDaP/Td (7 - Td or Tdap) 07/01/2032 07/01/2022, 06/09/1985, 08/29/1974, Additional history exists Colon Cancer Screening 01/08/2035 Colonoscopy 01/08/2035 01/10/2025 Zoster Completed 04/30/2023, 02/21/2023 Meningococcal B Vaccine Aged Out No l onger eligible based on patient's age to complete this topic Goals Goal Patient Goal Type Associated Problems Recent Progress Patient-Stated? Author Maintain a healthy diet, exercise regularly and maintain an ideal body weight General No Porsche Jeffery, family independence case manager Procedure Name Priority Date/Time Associated Diagnosis Comments C-REACTIVE PROTEIN SAMMY 03/04/2025 8:31 AM EDT Rheumatoid arthritis involving multiple sites with positive rheumatoid factor (HCC) SEDIMENTATION RATE AUTOMATED SAMMY 02/2025 8:31 AM EDT Rheumatoid arthritis involving multiple sites with positive rheumatoid factor (HCC) CBC WITH DIFF STAT 03/04/2025 8:31 AM EDT Rheumatoid arthritis involving multiple sites with positive rheumatoid factor (HCC) COMPREHENSIVE METABOLIC PANEL SAMMY 8:31 AM EDT Rheumatoid arthritis involving multiple sites with positive rheumatoid factor (HCC) C-REACTIVE PROTEIN SAMMY 02/18/2025 8:16 AM EDT Rheumatoid arthritis involving multiple sites with positive rheumatoid factor (HCC) SEDIMENTATION RATE AUTOMATED SAMMY 8:16 AM EDT Rheumatoid arthritis involving multiple sites with positive rheumatoid factor (HCC) CBC WITH DIFF STAT 02/18/2025 8:16 AM EDT Rheumatoid arthritis involving multiple sites with positive rheumatoid factor (HCC) COMPREHENSIVE METABOLIC PANEL SAMMY 8:16 AM EDT Rheumatoid arthritis involving multiple sites with positive rheumatoid factor (HCC) ESOPHAGOGASTRODUODENOSCOPY (EGD) Routine 01/10/2025 3:17 PM EDT Dysphagia, unspecified type Diarrhea, unspecified type COLONOSCOPY Routine 01/10/2025 3:17 PM EDT Rectal bleeding Constipation, unspecified constipation type PATHOLOGY TISSUE REQUEST Routine 025 2:40 PM EDT Rectal bleeding Constipation, unspecified constipation type Dysphagia, unspecified type Diarrhea, unspecified type SEDIMENTATION RATE AUTOMATED Routine 12/2024 10:51 AM EDT Rheumatoid arthritis involving multiple sites with positive rheumatoid factor (HCC) C-REACTIVE PROTEIN Routine 12/31/2024 10:51 AM EDT Rheumatoid arthritis involving multiple sites with positive rheumatoid factor (HCC) CBC WITH DIFF Routine 12/31/2024 10:51 AM EDT Rheumatoid arthritis involving multiple sites with positive rheumatoid factor (HCC) Therapeutic drug monitoring COMPREHENSIVE METABOLIC PANEL Routine 10:51 AM EDT Rheumatoid arthritis involving multiple sites with positive rheumatoid factor (HCC) Therapeutic drug monitoring MM MAMMO DIGITAL MCKAY SCREEN BILAT Routine 02/11/2024 10:55 AM EDT Encounter for screening mammogram for breast cancer [facility] Routine 11/27/2020 7:50 PM EST Screening for colon cancer from Last 3 Months or Most Recently Relevant to Health Maintenance Results * SEDIMENTATION RATE AUTOMATED (03/04/2025 8:31 AM EDT) Only the most recent of3 resultswithin the time period is included. Sed Rate 22 0 - 30 mm/hr 03/04/2025 8:44 AM EDT [facility] Blood VENOUS BLOOD / Unknown Venipuncture / Unknown 03/04/2025 8:31 AM EDT 03/04/2025 8:34 AM EDT Jessica Cortes MD HEMATOLOGY ORDERABLES Fin al Result [facility] [address] [place], [place] [id number] * (ABNORMAL) CBC WITH DIFF (03/04/2025 8:31 AM EDT) Only the most recent of3 resultswithin the time period is included. WBC 11.9(H) 3.7 - 10.3 x10(3)/mc L 03/04/2025 8:38 AM EDT [facility] RBC 4.79 3.90 - 5.20 x10(6)/mc L 03/04/2025 8:38 AM EDT [facility] Hgb 12.6 11.2 - 15.7 g/dL 03/04/2025 8:38 AM EDT [facility] Hct 41.0 34.0 - 45.0 % 03/04/2025 8:38 AM [facility] MCV 85.6 80.0 - 100.0 fL 03/04/2025 8:38 AM [facility] MCH 26.3 26.0 - 34.0 pg 03/04/2025 8:38 AM [facility] MCHC 30.7 30.7 - 35.5 g/dL 03/04/2025 8:38 AM [facility] RDW 14.8 <=14.9 % 03/04/2025 8:38 AM [facility] Platelet 375(H) 155 - 369 x10(3)/mc L 03/04/2025 8:38 AM [facility] MPV 9.4 8.8 - 12.5 fL 03/04/2025 8:38 AM [facility] Neut # Prelim 9.0(H) 1.6 - 6.1 x10(3)/mc L 03/04/2025 8:38 AM [facility] Comment:Preliminary automate d absolute neutrophil count. Value may change if manual differential is indicated. Neut Percent 75.7 % 03/04/2025 8:38 AM [facility] Comment:Neutrophils equals s egs plus bands Imm Gran% 0.8 % 03/04/2025 8:38 AM [facility] Comment:Automated count of m etamyelocytes, myelocytes and promyelocytes. Lymph Percent 15.0 % 03/04/2025 8:38 AM [facility] [place] Percent 7.5 % 03/04/2025 8:38 AM [facility] Eos Percent 0.5 % 03/04/2025 8:38 AM [facility] Baso Percent 0.5 % 03/04/2025 8:38 AM [facility] Neut # 9.0(H) 1.6 - 6.1 x10(3)/mc L 03/04/2025 8:38 AM [facility] Comment:Neutrophils equals s egs plus bands IMMGRAN# 0.1 0.0 - 0.1 x10(3)/mc L 03/04/2025 8:38 AM [facility] Comment:Automated count of m etamyelocytes, myelocytes and promyelocytes. An absolute IG <0.1 is reported as 0.0. Lymph # 1.8 1.2 - 3.9 x10(3)/mc L 03/04/2025 8:38 AM EDT [facility] [place] # 0.9 0.3 - 0.9 x10(3)/mc L 03/04/2025 8:38 AM EDT [facility] Eos# 0.1 0.0 - 0.5 x10(3)/mc L 03/04/2025 8:38 AM EDT [facility] Baso # 0.1 0.0 - 0.1 x10(3)/mc L 03/04/2025 8:38 AM EDT [facility] Blood VENOUS BLOOD / Unknown Venipuncture / Unknown 03/04/2025 8:31 AM EDT 03/04/2025 8:34 AM EDT Jessica Cortes MD HEMATOLOGY ORDERABLES Fin al Result Performing Organization Address City/[facility]/ZIP Co de Phone Number [facility] [address] [place] [address] * (ABNORMAL) C-REACTIVE PROTEIN (03/04/2025 8:31 AM EDT) Only the most recent of3 resultswithin the time period is included. [facility] Signature CRP 16.49(H) <=5.00 mg/L 03/04/2025 2:12 PM EDT [facility] Blood VENOUS BLOOD / Unknown Venipuncture / Unknown 03/04/2025 8:31 AM EDT 03/04/2025 8:34 AM EDT Jessica Cortes MD CHEMISTRY ORDERABLES Siobhan l Result [facility] [address] [facility] , [place] [address] * (ABNORMAL) COMPREHENSIVE METABOLIC PANEL (03/04/2025 8:31 AM EDT) Only the most recent of3 resultswithin the time period is included. Sodium 137 136 - 145 mmol/L 03/04/2025 8:53 AM [facility] Potassium 4.1 3.5 - 5.0 mmol/L 03/04/2025 8:53 AM [facility] Chloride 102 98 - 107 mmol/L 03/04/2025 8:53 AM [facility] Total CO2 23 22 - 29 mmol/L 03/04/2025 8:53 AM [facility] Anion Gap 12 7 - 16 mmol/L 03/04/2025 8:53 AM [facility] Calcium 8.9 8.6 - 10.4 mg/dL 03/04/2025 8:53 AM [facility] Glucose Lvl 150(H) 70 - 99 mg/dL 03/04/2025 8:53 AM [facility] BUN 10 6 - 20 mg/dL 03/04/2025 8:53 AM [facility] Creatinine 0.59 0.51 - 1.30 mg/dL 03/04/2025 8:53 AM [facility] Albumin 4.0 3.5 - 5.2 gm/dL 03/04/2025 8:53 AM [facility] Total Protein 7.0 6.4 - 8.3 gm/dL 03/04/2025 8:53 AM [facility] Bili Total 0.2 0.2 - 1.3 mg/dL 03/04/2025 8:53 AM [facility] ALT 15 <=41 U/L 03/04/2025 8:53 AM [facility] AST 17 <=40 U/L 03/04/2025 8:53 AM [facility] Alk Phos 79 36 - 123 U/L 03/04/2025 8:53 AM [facility] eGFR (CKD-EPIcr 2020) 107 >=60 mL/min/1.7 3 m2 03/04/2025 8:53 AM [facility] Comment:Estimated GFR was ca lculated using the CKD-EPIcr (2020) equation refit without race. The equation is recommended by the National Kidney Foundation - [place] [employer] Neph[employer] Task Force. Blood VENOUS BLOOD / Unknown Venipuncture / Unknown 03/04/2025 8:31 AM EDT 03/04/2025 8:34 AM EDT us Jessica Cortes MD CHEMISTRY ORDERABLES Siobhan l Result [facility] [address] [place] [address] * ESOPHAGOGASTRODUODENOSCOPY (EGD) (01/10/2025 3:17 PM EDT) [...] None Staff Staff Role Suni Mckinney RN Tool Procurement Coordinator Phyllis Collado RN Endoscopy Nurse Jose Martin Moreland, BRITTNY SALES REPRESENTATIVES Deja Martinez MD Performing Provider Bebeto Cantu [...] None Staff Staff Role Suni Mckinney RN Tool Procurement Coordinator Amando Vega DO Anesthesiologist Phyllis Collado RN Endoscopy Nurse Jose Martin Moreland, SALES REPRESENTATIVES SALES REPRESENTATIVES Deja Martinez MD Performing Provider Bebeto Cantu [...] Patient Out - Proc. Room 03:17 PM us Deja Martinez MD ENDOSCOPY PROCEDURE ORDERAB LES Final Result * PATHOLOGY TISSUE REQUEST (01/10/2025 2:40 PM EDT) CASE REPORT Surgical Pathology Case: [id number] Authorizing Provider: Deja Martinez MD Collected: 01/10/2025 1440 Ordering Location: [facility] Received: 01/10/2025 6565 Pathologist: Mel Biswas MD Specimens: A) - Small Intestine, Duodenum, duodenal biopsies via forceps rule out celiac disease and H pylori B) - Gastric, gastric biopsies via forceps rule out H pylori C) - Gastroesophageal Junction, gastroesophageal junction biopsies via forceps 01/12/2025 8:15 AM EDT [facility] FINAL DIAGNOSIS A. DUODENUM, BIOPSY: - [...] of dysplasia or malignancy. 01/12/2025 8:15 AM [facility] at 0815 EDT GROSS DESCRIPTION A. Received in formalin, labeled with patient's name, MRN, and duodenal biopsies are multiple fragments of gallagher-white friable tissue, ranging from 0.1 -0.3 cm. The tissue is submitted in toto in one cassette. PHYLLIS Moe PA ([facility]) B. Received in formalin, labeled with patient's [...] toto in one cassette. PHYLLIS Moe PA ([facility]) 01/12/2025 8:15 AM [facility] MICROSCOPIC DESCRIPTION The microscopic examination may have been rendered in whole, or in part, by analyzing high-resolution digital images (whole slide images) on the [employer] [place] Digital Pathology platform validated at [facility]. 01/12/2025 8:15 AM EDT [facility] EMBEDDED IMAGES 01/12/2025 8:15 AM EDT [facility] Tissue DUODENAL STRUCTURE / Unknown 01/10/2025 2:40 PM EDT 01/10/2025 5:22 PM EDT Tissue specimen (specimen) STOMACH STRUCTURE / Unknown 01/10/2025 2:40 PM EDT 01/10/2025 5:22 PM EDT Tissue specimen (specimen) CARDIOESOPHAGEAL JUNCTION STRUCTURE / Unknown 01/10/2025 2:46 PM EDT 01/10/2025 5:22 PM EDT us Deja Martinez MD PATHOLOGY ORDERABLES Final Result [facility] [address] [phone] * MM MAMMO DIGITAL MCKAY SCREEN BILAT (02/11/2024 10:55 AM EDT) Anatomical Region Laterality Modality Breast Bilateral Mammography 02/11/2024 12:1 7 PM EDT Impressions 02/11/2024 12:17 PM EDT Negative ([id number]) ~ RECOMMENDATION: Routine screening mammogram in 1 [...] the next mammogram, in accordance with the [place] [employer] and the Society of Breast Imaging recommendations. Narrative 02/11/2024 12:17 PM EDT Procedure:MM MAMMO DIGITAL MCKAY SCREEN BILAT ~ Reason for exam: screening, asymptomatic. Z12.31-Encounter for screening mammogram for malignant neoplasm of [id number] ~ MM MAMMO DIGITAL MCKAY SCREEN BILAT Bilateral CC and MLO view(s) were taken. The breast tissue is heterogeneously dense. This may lower the sensitivity of mammography. Prior study comparison: None available No mammographic evidence of malignancy. ~ Procedure Note Pablo Disla MD - 02/11/2024 Procedure:MM MAMMO DIGITAL MCKAY SCREEN BILAT ~ Reason for exam: screening, asymptomatic. Z12.31-Encounter for screening mammogram for malignant neoplasm of [id number]-[id number]-CM ~ MM MAMMO DIGITAL MCKAY SCREEN BILAT Bilateral CC and MLO view(s) were taken. The breast tissue is heterogeneously dense. This may lower thesensitivity of mammography. Prior study comparison: None available No mammographic evidence of malignancy. ~ IMPRESSION: Negative ([id number]) ~ RECOMMENDATION: Routine screening mammogram in 1 [...] the next mammogram, in accordance with the [place] [employer] and the Society of Breast Imaging recommendations. us Julisa Kerr MD [facility] ORDERABLES Fin al Result * [facility] (11/27/2020 7:50 PM EST) [facility] CLINICAL REPORT Negative Not Applicable [facility] Comment: A negative result indicates a [...] screened with both Cologuard and colonoscopy. (Davi Cooper, N Engl J Med 2014;370(14):4722-8561) The normal value (reference range) for this assay is negative. [facility]ARD RE-SCREENING RECOMMENDATION: Periodic routine colorectal cancer screening is an important part of preventive healthcare for asymptomatic persons at average risk for colorectal cancer. Following a negative Cologuard result, the [place] [employer] Society and U.S. Multi-Society Task Force screening guidelines recommend a Cologuard re-screening interval of 3 years. References: [place] [employer] (ACS). Colorectal cancer prevention and early detection. [place], [place]: [place] [employer]; [updated 2015Jan 20]. https://www.cancer.org/cancer/dfryt-wltbdy-bqdkfy/nfnjfvige-kouxkmmei-opltywa/ac s-rec ommendations.html. Accessed May 29, 2018; Luis Antonio DK, Jerry HORN, Federico GreerK, Colorectal Cancer Screening: Recommendations for Physicians and Patients from the U.S. Multi-Society Task Force on Colorectal Cancer Screening, Am J Gastroenterology 2017; 112:9587-4496. TEST TYPE: Composite algorithmic analysis of stool DNA-biomarkers with hemoglobin immunoassay. Quantitative values of individual biomarkers are not reportable [...] interval of every 3 years by the [place] [employer] and U.S. Multi-Society Task Force. [...] can be accessed at the following location: www.Bidgely/results. Additional description of the Cologuard test process, warnings and precautions can be found at [email or web address].com. Rx only. Stool specimen (specimen) 11/27/2020 7:50 PM EST 11/29/2020 2:22 PM EST us Julisa Kerr MD EXACT SCIENCE - ORDERABLES Fin al Result [employer], [facility] [address] [employer] [address] [place] [id number] from Last 3 Months or Most Recently Relevant to Health Maintenance Insurance [address] [address] [address] [address] AETNA [facility] [place] [address] Care Teams Associate Designer Relationship Specialty Start Date End Date Julisa Kerr MD 100 [place] [address] PCP - General 02/22/11 Jessica Cortes MD 651 [facility] 19 [place] [address] Internal Medicine-Rheumatology 04/26/16 Susana Garay MD [address] [place] [address] [place] [address] Medical Oncologist Internal Medicine-Hematology and Oncology 10/14/22
--- OUTSIDE RECORDS SUMMARY | 2025-03-09 15:13 | XMS_ITS | Encounter Summary ---
Author Organization [place] [address] Care Team Providers Care Camera Systems Engineer Name Role Phone Julisa Kerr MD Primary Care Provider [phone] Jessica Cortes MD Unavailable [phone] Susana Garay MD Unavailable [phone] Encounter Details Date Type Department Care Team (Latest Contact Info) Description 02/22/2025 Results Follow-Up SEP RHEUMATOLOGY NPTFTT [address] [place] [address] Jessica Cortes MD [address] [address] COMPREHENSIVE METABOLIC PANEL, CBC WITH DIFF, SEDIMENTATION [...] Info) Description 05/09/2025 11:00 AM EDT Appointment [address] [address] 05/09/2025 11:15 AM EDT Appointment [address] [place] [address] Susana Garay MD [address] [place] [address] [place] [address] 05/13/2025 2:15 PM EDT Office Visit [facility] RHEUMATOLOGY [facility] [address] [place] [address] Jessica Cortes MD 651 [facility] Building 19 [place] [address] documented as of this encounter Goals Goal Patient Goal Type Associated Problems Recent Progress Patient-Stated? Author Maintain a healthy diet, exercise regularly and maintain an ideal body weight General No Porsche Jeffery, RN documented as of this encounter Visit Diagnoses Not on filedocumented in this encounter Care Teams Camera Systems Engineer Relationship Specialty Start Date End Date Julisa Kerr MD 100 [place] [address] PCP - General 02/22/11 Jessica Cortes MD [address] [address] Internal Medicine-Rheumatology 04/26/16 Susana Garay MD [address] [place] [address] Medical Oncologist Internal Medicine-Hematology and Oncology 10/14/22 documented as of this encounter
--- OUTSIDE RECORDS SUMMARY | 2025-03-09 15:13 | XMS_ITS | Encounter Summary ---
Author Organization [place] [address] Care Team Providers Care Vaccine Specialist Name Role Phone Julisa Kerr MD Primary Care Provider [phone] Jessica Cortes MD Unavailable [phone] Susana Garay MD Unavailable [phone] Encounter Details Date Type Department Care Team (Late st Contact Info) Description 05/26/2023 Orders Only [facility] LABOR[facility] [place] [address] Elizabeth Tucker MD [address] [place] [address] Social History Tobacco Use Types Packs/Day Years [...] Info) Description 05/09/2025 11:00 AM EDT Appointment [address] [place] [address] 05/09/2025 11:15 AM EDT Appointment [address] [place] [address] Susana Garay MD [address] [facility] [place] [address] 05/13/2025 2:15 PM EDT Office Visit [facility] RHEUMATOLOGY [facility] [address] [place] [address] Jessica Cortes MD 6[address] [facility] [facility] Building 19 [place] [address] documented as of this encounter Goals Goal [...] EDT) 05/26/2023 12:2 0 PM EDT Narrative [facility] - 05/29/2023 6:02 AM EDT Requesting Provider: SUSANA Chavez Specimen = [id number] us Elizabeth Tucker MD PATHOLOGY ORDERABLES Final Res ult [facility] 1 [place] [address] documented in this encounter Visit Diagnoses Not on filedocumented in this encounter Care Teams Vaccine Specialist Relationship Specialty Start Date End Date Julisa Kerr MD [address] [place] [address] PCP - General 02/22/11 Jessica Cortes MD 651 [facility] 19 [place] [id number] Internal Medicine-Rheumatology 04/26/16 Susana Garay MD 1 [place], [place] [address] Medical Oncologist Internal Medicine-Hematology and Oncology 10/14/22 documented as of this encounter
--- OUTSIDE RECORDS SUMMARY | 2025-03-09 15:13 | XMS_ITS | Clinical Summary ---
Author Organization [facility] Address [address] [place] [address] Care Team Providers Care Cranberry Farm Supervisor Name Role Phone Julisa Kerr MD Primary Care Provider [phone] Allergies Active Allergy Reactions Criticality Noted Date [...] 87 01/30/2024 5:07 PM EDT Temperature 36.1 C (97 F) 01/30/2024 5:00 PM EDT Respiratory Rate 14 [...] Lipid Screening 1988 Breast Cancer Screening 2020 Pneumococcal Vaccine: 50+ Ye ars (1 of 1 - PCV) 2020 COVID-19 Vaccine (2023-2 5 season) 2024 Depression Screening 09/29/2024 Influenza Vaccination (Seaso n Ended) 2025 07/28/2023, 07/01/2022, 07/14/2019, Additional history exists Tetanus Vaccination (Every 1 0 Years) 07/01/2032 07/01/2022 Zoster-RZV(Shingrix) Completed 04/30/2023, 02/22/20 23 Medical Devices Implanted Type Area Director Insurance Device Identifier Shelf Expiration Date Model / Serial / Lot Simplex Hv Full Dose Us - [id number] Implanted:Qty: 1 on 08/22/2023 by Jordy Clifton MD at [facility] Right: Knee * DODIE [id number] 12/27/2024 6194-1-001 / / [id number] Attune Knee System Tibial Base Affixium Fixed Bearing Size 4 - [id number] Implanted:Qty: 1 on 08/22/2023 by Jordy Clifton MD at [facility] Right: Knee MARIAH \T\ [employer] [id number] 05/29/2033 [id number] / / [id number] Attune Femoral Pcr Sz 4 Right Cementless - [id number] Implanted:Qty: 1 on 08/22/2023 by Jordy Clifton MD at [facility] Right: Knee MARIAH \T\ [employer] [id number] 08/28/2032 [id number] / / [id number] Attune Pat Med Nette 35mm - [id number] Implanted:Qty: 1 on 08/22/2023 by Jordy Clifton MD at [facility] Right: Knee MARIAH \T\ [employer] [id number] 05/29/2028 [id number] / / [id number] Attune Tibial Insrt Fb Ms Sz 4 Right 5mm Aox - [id number] Implanted:Qty: 1 on 08/22/2023 by Jordy Clifton MD at [facility] Right: Knee MARIAH \T\ [employer] [id number] 03/28/2031 [id number] / / [id number] Insert Attune Fb Ms Aox Upchrg - [id number] Implanted:Qty: 1 on 08/22/2023 by Jordy Clifton MD at [facility] Right: Knee MARIAH \T\ O&P Pro [id number] / / Adv Pat Nette Upchrg - [id number] Implanted:Qty: 1 on 08/22/2023 by Jordy Clifton MD at [facility] Right: Knee MARIAH \T\ O&P Pro [id number] / / Knee Attune Fb Por Dome Pat - [id number] Implanted:Qty: 1 on 08/22/2023 by Jordy Clifton MD at [facility] Right: Knee MARIAH \T\ O&P Pro [id number] / / Acetabular Liner 36mm Id X 50mm Od - [id number] Implanted:Qty: 1 on 01/30/2024 by Jordy Clifton MD at [facility] Left: Hip * BAUMAN \T\ NEPHEW [id number] 12/21/2033 [id number] / / [id number] Stem Polar Collar Lat Ti/Gautam 1 - [id number] Implanted:Qty: 1 on 01/30/2024 by Jordy Clifton MD at [facility] Left: Hip [id number] 10/14/2030 [id number] / / [id number] Hd Oxinium Fem 09/11 36 Mm L+8 - [id number] Implanted:Qty: 1 on 01/30/2024 by Jordy Clifton MD at [facility] Left: Hip BAUMAN \T\ [employer]W [employer] [id number] 10/26/2033 [id number] / / [id number] Imp Mop Hip Xl Ox 3318 - [id number] Implanted:Qty: 1 on 01/30/2024 by Jordy Clifton MD at [facility] Left: Hip BAUMAN \T\ [employer] [id number] / / 50 Mm Liner Coated Shell - [id number] Implanted:Qty: 1 on 01/30/2024 by Jordy Clifton MD at [facility] Left: Hip * BAUMAN \T\ NEPHEW [id number] 10/14/2033 [id number] / / [id number] Procedures Procedure Name Priority Date/Time Associated Diagnosis Comments MSK OUTCOME SCORES Routine 01/30/2025 9:10 PM EDT from Last 3 Months Results * MSK OUTCOME SCORES (01/30/2025 9:10 PM EDT) 01/30/2025 9:10 PM EDT us External Provider RESULTABLE ONLY ORDERS Final R esult [facility] [address] [place] [address], [facility] from Last 3 Months Insurance MEDICAID Care Teams Cranberry Farm Supervisor Relationship Specialty Start Date End Date Julisa Kerr MD 19 [place] [id number] PCP - General Family Medicine 08/07/23
--- OUTSIDE RECORDS SUMMARY | 2025-03-09 15:13 | XMS_ITS | Encounter Summary ---
Author Organization [place] [address] Care Team Providers Care Hr Shared Services Consultant Name Role Phone Julisa Kerr MD Primary Care Provider [phone] Jessica Cortes MD Unavailable [phone] Susana Garay MD Unavailable [phone] Reason for Visit * Reason Comments Medication Refill Encounter Details Date Type Department Care Team (Late st Contact Info) Description 01/19/2025 Refill [facility] RHEUMATOLOGY [facility] [address] [place] [address] Jessica Cortes MD [address] 19 [place] [address] Medication Refill Social History Tobacco Use Types [...] (SUBCUTANEOUSLY) ONCE A WEEK. 10 mL 01/19/2025 leflunomide (ARAVA) 20 mg Oral TabletIndications :Rheumatoid arthritis involving multiple sites with positive rheumatoid factor (HCC) TAKE 1 TABLET BY MOUTH EVERY DAY 30 Tablet 1 01/19/2025 documented in this encounter Miscellaneous Notes * Telephone Encounter - Mel Michaels MA - 01/19/2025 12:28 PM EDT VALENTIN- 10/25/24 Labs-12/31/24 NEXT Follow up- 01/31/2025 Chart reviewed. documented in this encounter Plan of Treatment Upcoming Encounters Date Type Department Care Team (Lou Contact Info) Description 05/09/2025 11:00 AM EDT Appointment [facility] [address] 05/09/2025 11:15 AM EDT Appointment [facility] [place] [address] Susana Garay MD [address] [facility] [place] [address] 05/13/2025 2:15 PM EDT Office Visit [facility] RHEUMATOLOGY [facility] [address] [place] [address] Jessica Cortes MD [address] [place] [address] documented as of this encounter [...] (HCC) Take 1 Tablet by mouth daily. 10/25/2024 01/19/2025 methotrexate sodium 25 mg/mL Inj SolutionIndications:R heumatoid arthritis involving multiple sites with positive rheumatoid factor (HCC) Subcutaneous (Inject under the skin) 0.8 mL every 7 days. INJECT 0.8ML UNDER THE SKIN (SUBCUTANEOUSLY) ONCE A WEEK. 10/25/2024 01/19/2025 documented as of this encounter Care Teams Hr Shared Services Consultant Relationship Specialty Start Date End Date Julisa Kerr MD [address] [place] [address] PCP - General 02/22/11 Jessica Cortes MD 651 [facility] Building 19 [place] [address] Internal Medicine-Rheumatology 04/26/16 Susana Garay MD 1 [place] [address] Medical Oncologist Internal Medicine-Hematology and Oncology 10/14/22 documented as of this encounter
--- OUTSIDE RECORDS SUMMARY | 2025-03-09 15:13 | XMS_ITS | Encounter Summary ---
Author Organization [place] [address] Care Team Providers Care Straightedge Man Name Role Phone Julisa Kerr MD Primary Care Provider Jessica Cortes MD Unavailable [phone] Susana Garay MD Unavailable [phone] Reason for Visit * Reason Onset Date Comments Medication Management 02/07/2025 REFLUX Encounter Details Date Type Department Care Team (Late st Contact Info) Description 02/07/2025 Telephone [facility] [address], 3RD [place] [address] Deja Martinez MD [address] [place] [id number] Medication Management (REFLUX) Social History Tobacco Use Types Packs/Day Years [...] Blkae MA * Does this person have serious difficulty walking or climbing stairs? Answer Date of Assessment Author No 11/12/2024 11:12 AM Dillon Blake MA * Does this person have difficulty dressing or bathing? Answer Date of Assessment Author No 11/12/2024 11:12 AM Dlilon Blake MA * Because of a physical, [...] Refills Last Filled Start Date End Date pantoprazole (PROTONIX) 40 mg Oral Tablet, Delayed Release (E.C.) Take 1 Tablet by mouth daily. 30 Tablet 2 02/11/2025 documented in this encounter Miscellaneous Notes * Addendum Note - Frederick Scanlon RN - 02/11/2025 12:44 PM EDTAddended by: FREDERICK SCANLON on: 02/11/2025 12:44 PM Modules accepted: Orders * Telephone Encounter - Frederick Scanlon RN - 02/11/2025 12:43 PM EDT Called pt and informed her we sent in pantoprazole to the pharmacy * Telephone Encounter - Louis Glsas - 02/11/2025 10:46 AM EDT Pt calling back stating she still hasn't seen anything sent in to her pharm. Pt is aware that we tried to reach back out to her on 02/07. Pt states that SC stated she would prescribe her something foracid reflux after her EGD on 01/10 but pt couldn't remember what she said and hasn't seen anything in her chart. Please advise * Telephone Encounter - Frederick Scanlon RN - 02/07/2025 12:56 PM EDT Lmtcb 02/07 * Telephone Encounter - Gabrielle Carpenter, Clerical Staff - 02/07/2025 11:31 AM EDT EST PT - CALLING STATING THAT DR WILLIAMSON WAS TO HER PT [place] FOR [place] ACID REFLUX , PLEASE CALL INTO HER PHARMACY [place] FOR HER ACID REFLUX documented in this encounter Plan of Treatment Upcoming Encounters Date Type Department Care Team (Late st Contact Info) Description 05/09/2025 11:00 AM EDT Appointment [facility] Cancer [address] [place] [address] 05/09/2025 11:15 AM EDT Appointment [address] [place] [address] Susana Garay MD [address] [place] [address] [place] [address] 05/13/2025 2:15 PM EDT Office Visit [facility]G RHEUMATOLOG[facility] 651 [facility] [address] [place] [address] Jessica Cortes MD [address] [address] documented as of this encounter Goals Goal Patient Goal Type Associated Problems Recent Progress Patient-Stated? Author Maintain a healthy diet, exercise regularly and maintain an ideal body weight General No Porsche Jeffery, RN documented as of this encounter Visit Diagnoses Not on filedocumented in this encounter Care Teams Straightedge Man Relationship Specialty Start Date End Date Julisa Kerr MD 100 [place] [address] PCP - General 02/22/11 Jessica Cortes MD [address] [id number] Internal Medicine-Rheumatology 04/26/16 Susana Garay MD [address] [place] [id number] Medical Oncologist Internal Medicine-Hematology and Oncology 10/14/22 documented as of this encounter
--- OUTSIDE RECORDS SUMMARY | 2025-03-09 15:13 | XMS_ITS | Encounter Summary ---
Author Organization [place] [address] Care Team Providers Care Clinical Documentation Consultant Name Role Phone Julisa Kerr MD Primary Care Provider [phone] Jessica Cortes MD Unavailable [phone] Susana Garay MD Unavailable [phone] Reason for Visit * Reason Onset Date Comments Refill 02/17/2025 gabapentin (NEUR ONTIN) 800 mg Oral Tablet 60 Tablet 2 11/12/2024 - Sig - Route: Take 1 Tablet by mouth 2 times daily. - Oral Encounter Details Date Type Department Care Team (Late st Contact Info) Description 02/17/2025 Refill [facility] 100 [place] [address] Julisa Kerr MD 100 [place] [address] Refill (gabapentin (NEURONTIN) 800 mg Oral Tablet 60 Tablet 2 11/12/2024 - /Sig - Route: Take 1 Tablet by mouth 2 times daily. - Oral //) Social History Tobacco Use Types Packs/Day [...] Filled Start Date End Date gabapentin (NEURONTIN) 800 mg Oral TabletIndications:R heumatoid arthritis involving multiple sites with positive rheumatoid factor (HCC),Acute bilateral low back pain without sciatica Take 1 Tablet by mouth 2 times daily. 60 Tablet 2 02/17/2025 documented in this encounter Miscellaneous Notes * Telephone Encounter - Gina Carranza RMA - 02/17/2025 11:31 AM EDT Wendy 11/12 * Telephone Encounter - Blanca Velez - 02/17/2025 10:21 AM EDT Select the most appropriate reason for this telephone message: Medication Refill Who is requesting the refill: Patient Medication(s)Name/Dosage/Frequency: gabapentin (NEURONTIN) 800 mg Oral Tablet 60 Tablet 2 11/12/2024 -- Sig - Route: Take 1 Tablet by mouth 2 times daily. - Oral Did patient contact the pharmacy first: No How many days left on hand: 0 Future appt date w/ prescribing provider: none Pharmacy & Location: [id number] [place] [address] [address] [facility] [phone] [[id number]] Return Method of Communication: Phone Call Additional Information: N/A documented in this encounter Plan of Treatment Upcoming Encounters Date Type Department Care Team (Late st Contact Info) Description 05/09/2025 11:00 AM EDT Appointment [address] [place] [address] 05/09/2025 11:15 AM EDT Appointment [address] [place] [address] Susana Garay MD [address] [place] [address] [place] [address] 05/13/2025 2:15 PM EDT Office Visit [facility] RHEUMATOLOGY [facility] [address] [place] [address] Jessica Cortes MD [address] [facility] Building [address] [place] [address] documented as of this encounter Goals Goal [...] Start Date End Da te gabapentin (NEURONTIN) 800 mg Oral TabletIndications:Rheuma toid arthritis involving multiple sites with positive rheumatoid factor (HCC),Acute bilateral low back pain without sciatica Take 1 Tablet by mouth 2 times daily. Reorder 11/12/2024 02/17/2025 documented as of this encounter Care Teams Clinical Documentation Consultant Relationship Specialty Start Date End Date Julisa Kerr MD [address] [place] [id number] PCP - General 02/22/11 Jessica Cortes MD 651 [facility] 19 [place] [address] Internal Medicine-Rheumatology 04/26/16 Susana Garay MD [address] [place] [address] Medical Oncologist Internal Medicine-Hematology and Oncology 10/14/22 documented as of this encounter
--- OUTSIDE RECORDS SUMMARY | 2025-03-09 15:13 | XMS_ITS | Encounter Summary ---
Author Organization [facility] [place] [address] Care Team Providers Care Assurance Manager Insurance Name Role Phone Julisa Kerr MD Primary Care Provider [phone] Jessica Cortes MD Unavailable [phone] Susana Garay MD Unavailable [phone] Encounter Details Date Type Department Care Team (Latest Contact Info) Description 01/10/2025 Travel Social History Tobacco Use Types Packs/Day [...] Info) Description 05/09/2025 11:00 AM EDT Appointment [address] [place] [address] 05/09/2025 11:15 AM EDT Appointment [address] [place] [address] Susana Garay MD 1 [place] [address] 05/13/2025 2:15 PM EDT Office Visit [facility] R[facility]UMATOLOG[facility] [address] [facility] [address] [place] [address] Jessica Cortes MD 651 [facility] Building 19 [place] [address] documented as of this encounter Goals Goal Patient Goal Type Associated Problems Recent Progress Patient-Stated? Author Maintain a healthy diet, exercise regularly and maintain an ideal body weight General No Porsche Jeffery, RN documented as of this encounter Visit Diagnoses Not on filedocumented in this encounter Care Teams Assurance Manager Insurance Relationship Specialty Start Date End Date Julisa Kerr MD 100 [place], [place] [id number] PCP - General 02/22/11 Jessica Cortes MD 651 [facility] 19 [place] [address] Internal Medicine-Rheumatology 04/26/16 Susana Garay MD [address] [place] [address] Medical Oncologist Internal Medicine-Hematology and Oncology 10/14/22 documented as of this encounter
--- OUTSIDE RECORDS SUMMARY | 2025-03-09 15:13 | XMS_ITS | Encounter Summary ---
Author Organization [place] [address] Care Team Providers Care Neon Installer Name Role Phone Julisa Kerr MD Primary Care Provider [phone] Jessica Cortes MD Unavailable [phone] Susana Garay MD Unavailable [phone] Reason for Visit * Reason Onset Date Comments Other 02/01/2025 Encounter Details Date Type Department Care Team (Late st Contact Info) Description 02/01/2025 Results Follow-Up [facility] [address], 3RD [place] [address] Deja Martinez MD [address] [place] [address] PATHOLOGY TISSUE REQUEST Social History Tobacco Use Types Packs/Day Years [...] Dillon Blake MA documented in this encounter Miscellaneous Notes * Telephone Encounter - Jennifer Rowell LPN - 02/02/2025 10:09 AM EDT Called pt with results. She is not currently on PPI. Tried to order Pantoprazole, but pt is on weekly injection of methotrexate and there is a high warning for use of PPI with methotrexate. Please advise. * Telephone Encounter - Jennifer Rowell LPN - 02/02/2025 10:09 AM EDT ----- Message from Deja Martinez MD sent at 02/01/2025 10:39 AM EDT ----- Inflammation in stomach, no H pylori GEJ with changes of Barretts esophagus PPI daily, GERD precautions Repeat EGD in 1 year to confirm Barretts If no improvement s/p dilation, consider EM with 24 hr pH Repeat colon in 10 years ----- Message ----- From: Lab, Background User Sent: 01/12/2025 8:15 AM EDT To: Deja Martinez MD documented in this encounter Plan of Treatment Upcoming Encounters Date Type Department Care Team (Late st Contact Info) Description 05/09/2025 11:00 AM EDT Appointment [address] [place] [address] 05/09/2025 11:15 AM EDT Appointment [address] [place] [address] Susana Garay MD [address] [place], [place] [address] 05/13/2025 2:15 PM EDT Office Visit [facility] R[facility]ATOLOGY [facility] [address] [place] [address] Jessica Cortes MD [address] [facility] Building [address] [place], [place] [id number] documented as of this encounter Goals Goal Patient Goal Type Associated Problems Recent Progress Patient-Stated? Author Maintain a healthy diet, exercise regularly and maintain an ideal body weight General No Porsche Jeffery, RN documented as of this encounter Visit Diagnoses Not on filedocumented in this encounter Care Teams Neon Installer Relationship Specialty Start Date End Date Julisa Kerr MD 100 [place] [address] PCP - General 02/22/11 Jessica Cortes MD [address] [place] [address] Internal Medicine-Rheumatology 04/26/16 Susana Garay MD [address] [facility] [address] [place], [place] [id number] Medical Oncologist Internal Medicine-Hematology and Oncology 10/14/22 documented as of this encounter
--- OUTSIDE RECORDS SUMMARY | 2025-03-09 15:13 | XMS_ITS | Clinical Summary ---
Author Organization [facility] Address [address] [place] [address] Care Team Providers Care Sorting Machine Operator Name Role Phone Julisa Kerr MD Primary Care Provider [phone] Allergies Active Allergy Reactions Criticality Noted Date [...] 85 05/28/2023 6:43 AM EDT Temperature 36.7 C (98.1 F) 05/28/2023 6:43 AM EDT Respiratory Rate 18 05/28/2023 6:43 AM EDT Oxygen Saturation 98% 05/28/2023 6:43 AM EDT Inhaled Oxygen Concentration - - Weight 62.6 kg (138 lb 0.1 oz) 12/05/2020 1:19 P M EST Height 157.5 cm (5' 2 ) 12/05/2020 1:19 PM EST Body Mass Index 25.24 12/05/2020 1:19 PM EST Plan of Treatment Health Maintenance Due Date Last Done Comments [facility]-Depression Screening 1970 [facility]-/Child/Adol SDOH Screenings 1970 [id number] Vaccine (#1) 1975 [facility]- SDOH Screenings 1988 [facility]-Adult SDOH Screenings 1988 [facility]-Hepatitis B Vaccines (1 of 3 - 19+ 3-dose series) 1989 [facility]-Zoster Vaccines (1 of 2) 1989 [facility]-Pap Smear 1991 [facility]-Cervical Cancer Screening 2000 [facility]-HPV/Cotest 2000 CT Colonography 2015 Colonoscopy 2015 FIT-DNA 2015 FIT 2015 FOBT 2015 Sigmoidoscopy 2015 [facility]-Colorectal Cancer Screening 2015 [facility]-Breast Cancer Screening 2020 [facility]-Influenza Vaccine (Season Ended) 2025 07/01/2022, 07/16/2019, 07/14/2019, Additional history exists [facility]-DTaP,Tdap,and Td Vaccines (7 - Td or Tdap) 07/01/2032 07/01/2022, 06/09/1985, 08/29/1974, Additional history exists [facility]-IPV Vaccines Aged Out 08/29/1974, 09/1972, 03/29/1973, Additional history exists No longer eligible based on patient's age to complete this topic [facility]-Pneumococcal Vaccine: 50+ Years Completed 07/01/2022, 03/17/2017, 12/13/2016 [facility]-HIV Screening Completed 05/28/2023 [facility]-Hepatitis C Screening Completed 05/28/2023 HPV Vaccines Aged Out No longer eligi ble based on patient's age to complete this topic [facility]-HIB Vaccines Aged Out No longer e [...] PCR STAT 05/28/2023 2:53 AM EDT ED HIV 1/2 ANTIBODY/ANTIGEN SCREEN WITH REFLEX TO HIV I/II DIFFERENTIATION STAT 05/28/2023 2:53 AM EDT from Last 3 Months or Most Recently Relevant to Health Maintenance Results * ED HIV 1/2 Antibody/Antigen Screen w/Reflex to HIV 1/2 Differentiation (05/28/2023 2:53 AM EDT) HIV 1 & 2 Antibody/Antigen Screen Non Reactive Non Reactive 05/28/2023 3:56 AM EDT [facility] Comment:Screening for HIV 1 & 2 antibodies, and P24 antigen is NONREACTIVE. No confirmatory testing is required. Blood Venous blood specimen / Unknown Venipuncture / Unknown 05/28/2023 2:53 AM EDT 05/28/2023 3:15 AM EDT [facility] Dimple Long DO LAB BLOOD ORDERABLES Final Res ult Performing Organization Address [facility] Co de Phone Number [facility] [address] [place] [address] * Hepatitis C Antibody - ED (05/28/2023 2:53 AM EDT) Hepatitis C Antibody Negative Negative 05/28/2023 3:58 AM EDT [facility] Blood Venous blood specimen / Unknown Venipuncture / Unknown 05/28/2023 2:53 AM EDT 05/28/2023 3:16 AM EDT [employer] [facility] [employer] [facility] LAB BLOOD ORDERABLES Final Res ult Performing Organization Address [facility] Co de Phone Number [facility] [address] [place] [address] from Last 3 Months or Most Recently Relevant to Health Maintenance Insurance [employer] [facility] [employer] Care Teams Sorting Machine Operator Relationship Specialty Start Date End Date Julisa Kerr MD [address] [place] [address] PCP - General 02/09/21
--- OUTSIDE RECORDS SUMMARY | 2025-03-09 15:14 | XMS_ITS | Encounter Summary ---
Author Organization [facility] Address [address] [place] [address] Care Team Providers Care Precision Lens Centerer And Edger Name Role Phone Julisa Kerr MD Primary Care Provider [phone] Encounter Details Date Type Department Care Team ([facility] Contact Info) Description 08/15/2023 Preop Surgical Orders Community Physician Ordering Department [address] [place] [address] Jordy Clifton MD [address] [place] [address] [place] [address] Social History Tobacco Use Types Packs/Day Years [...] on filedocumented in this encounter Care Teams Precision Lens Centerer And Edger Relationship Specialty Start Date End Date Julisa Kerr MD [address] [place] [address] PCP - General Family Medicine 08/07/23 documented as of this encounter
--- OUTSIDE RECORDS SUMMARY | 2025-03-09 15:14 | XMS_ITS | Clinical Summary ---
Author Organization [facility] Address [facility] [place] [address] Care Team Providers Care Courier Name Role Phone Julisa Kerr MD Primary Care Provider [phone] Source Comments This information has been disclosed to you from confidential records protectedfrom disclosure by state law. You shall make no further disclosure of thisinformation without the specific, written, and informed release of theindividual to whom it pertains, or as otherwise permitted by law. A generalauthorization for the release of medical or other information is not sufficientfor the purposes of therelease of HIV test results or diagnoses. [id number] Allergies Active Allergy Reactions Criticality Noted Date Comments Abatacept 08/23/2024 Adalimumab 08/23/2024 Celecoxib 08/23/2024 Etanercept 08/23/2024 Meloxicam 08/23/2024 Tocilizumab 08/23/2024 Tofacitinib 08/23/2024 Medications naloxone (NARCAN) 4 mg/actuation SpryIndications: Closed fracture of right femur, unspecified fracture morphology, unspecified portion of femur, initial encounter ([facility]) Apply 1 spray in one nostril if needed. Call 911. May repeat dose in other nostril if no response in 3 minutes. 2 each 1 Active Social History Tobacco Use Types Packs/Day Years Used Date Smoking Tobacco: Never Assessed Comments Unknown Sex and Gender Information Value Date Recorded Sex Assigned at Not on file Legal Sex Female 7:49 PM EST Gender Identity Not on file Sexual Orientation Not on file Last Filed Vital Signs Vital Sign Reading Time Taken Comments Blood Pressure 103/83 08/23/2024 4:30 AM EST Pulse 84 08/23/2024 4:30 AM EST Temperature 36.8 C (98.3 F) 08/23/2024 2:49 AM EST Respiratory Rate 20 08/23/2024 4:30 AM EST Oxygen Saturation 97% 08/23/2024 4:30 AM EST Inhaled Oxygen Concentration 97% 08/23/2024 4 :30 AM EST Weight - - Height - - Body Mass Index - - Plan of Treatment Health Maintenance Due Date Last Done Comments Abnormal Colonoscopy Follow Up 1970 Alcohol Misuse Screening 1988 Depression Screening 1988 HIV Screening 1988 Immunization: Hepatitis B (1 of 3 - 19+ 3-dose series) 1989 Cervical Cancer Screening/Pa p Smear (MyChart) 2000 Mammogram (MyChart) 2010 Colonoscopy 2015 Stool Testing (gFOBT) 2015 Immunization: COVID-19 ( season) 2024 Immunization: Influenza (MyC diego) (Season Ended) 2025 07/28/2023, 07/01/2022, 07/16/2019, Additional history exists Cologuard (FIT-DNA) 02/02/2027 02/03/2024, Colorectal Cancer Screening (MyChart) 02/02/2027 Immunization: DTaP/Tdap/Td ( 7 - Td or Tdap) 07/01/2032 07/01/2022, 06/09/1985, 08/29/1974, Additional history exists Immunization: Pneumococcal Completed 07/01, 03/17/2017, 12/13/2016 Immunization: Zoster Completed 04/30/2023, 02/22/20 23 Hepatitis C Screening (MyChart) Completed Procedures Procedure Name Priority Date/Time Associated Diagnosis Comments ED HCV AB REFLEX TO HCV QUANT Routine 08/23/2024 4:28 AM EST from Last 3 Months or Most Recently Relevant to Health Maintenance Results * ED HCV Ab Reflex To HCV Quant (08/23/2024 4:28 AM EST) HCV Ab Nonreactive Nonreactive 08/23/2024 5:41 AM EST [facility] Comment:Health Department no tified in accordance with reportable infectious disease guidelines. HCVAB Number 0.04 0.00 - 0.79 S/CO 08/23/2024 5:41 AM EST [facility] Serum 08/23/2024 4:28 AM EST 08/23/2024 4:39 AM EST us Estela Washington MD LAB BLOOD ORDERABLES Final R esult [facility] [address] [id number], [facility] from Last 3 Months or Most Recently Relevant to Health Maintenance Insurance [address] [place] [address] [employer] [facility] [address] [place] [id number] Care Teams Courier Relationship Specialty Start Date End Date Julisa Kerr MD [address] [place] [address] PCP - General Family Medicine 08/23/24
--- NOTE | 2025-03-09 15:16 | XR_ITS ---
FINAL REPORT TECHNIQUE: Chest PA & Lateral CLINICAL HISTORY: POS. PNUEMOINIA COMPARISON: None FINDINGS: 2 views of the chest were performed. The heart size is normal. The mediastinum is within normal limits. There is no acute cardiopulmonary process. There are no pleural effusions. There is no pneumothorax. The bony thorax appears intact. IMPRESSION: No acute cardiopulmonary process. Reviewed, Interpreted and Dictated by Alex Alvarez MD Transcribed by Ingrid Rodriguez Authenticated and [facility] [place]
== END 2025-03-09 23:59 | disposition home or self-care (01) ==
LOC: RAD 15:10
PROVIDERS: PCP Family Medicine; Visit Provider Nurse Practitioner Family
DX: J18.9 Pneumonia, unspecified organism (principal)
CPT/HCPCS: 71046